=== PATIENT | female | born 1965 | race African-American/Black ===

== ENCOUNTER 2016-07-18 16:52 | Emergency (ER) | payer OTHER ==
[~2016-07-18] VITALS: Ht 170.2 cm; Wt 150.0 kg
[~2016-07-18 16:52] MED LIST: ALBUAER2 INH; ASPEC81 PO; CITA20TA9 PO; DSY/150 PO; INSDGIPEN SQ; NVLGI/PEN SQ; OMEP20CA9 PO; OXGN; SYMIN160 PO; TPRSR/100 PO
[2016-07-18] MEDS ORDERED: LACT15SO PO (16:55)
[2016-07-18 16:59] VITALS: Ht 170.2 cm; Wt 150.0 kg
[2016-07-18] MEDS ORDERED: ASPIRIN 324 MG CHEW PO STA (17:27)
[2016-07-18] MEDS ORDERED: SODIUM CHLORIDE 0.9% 1000ML 1,000 ML IV ONE (17:30)
[2016-07-18 17:54] LABS: BASO % 0.5 %; BASO ABS # 0.04 K/uL (0-0.2); COMPLETE YES; EOS % 1.9 %; HEMATOCRIT 37.3 % (37-47); IG% 0.3 %; LYMPH % 32.1 %; LYMPH ABS # 2.77 K/uL (1.2-3.4); MEAN CELL VOLUME 90.5 fL (80-100); MEAN CORPUSCULAR HEMOGLOBIN 31.3 pg (25-34); MEAN CORPUSCULAR HGB CONC 34.6 g/dl (32-36); MEAN PLATELET VOLUME 9.8 fL (7.4-10.4); NEUT % 60.2 %; PLATELET COUNT 291 K/uL (130-400); RED BLOOD COUNT 4.12 M/uL (4.2-5.4); WHITE BLOOD COUNT 8.64 K/uL (4.8-10.8)
[2016-07-18 18:20] LABS: ALB/GLOB RATIO 0.9 (0.9-2); BUN/CREATININE RATIO 10.5 (10-20); CALCIUM 9.1 mg/dl (8.5-10.1); CREATININE 0.8 mg/dl (0.60-1.20); POTASSIUM 3.6 mmol/L (3.5-5.1)
[2016-07-18 18:33] LABS: CKMB/CK RATIO 0.7 (0-3.0); THYROID STIMULATING HORMONE 0.539 uIu/ml (0.300-4.500)
--- NOTE | 2016-07-18 18:36 | DIAGNOSTIC IMAGING REPORT ---
CHEST ONE VIEW PORTABLE CLINICAL HISTORY: Chest pain. COMPARISON STUDY: Chest radiograph June 23, 2016. FINDINGS: This study is, by suboptimal penetration. Apparent bibasilar opacities are likely due to overlying soft tissues. No pneumothorax or definite pleural effusion is identified. Cardiomediastinal silhouette is stable with mild cardiomegaly. There is no evidence of pulmonary edema. IMPRESSION: No acute findings. No significant change in appearance of the chest. Electronically signed by: Fabrizio Johnson M.D. 07/18/2016 6:34 PM Dictated Date/Time: 07/18/2016 6:33 PM
[2016-07-18] MEDS ORDERED: GUAI1TAB69 PO (18:41)
[2016-07-18] MEDS ORDERED: IPRASOL4 INH (18:41)
[2016-07-18 18:55] LABS: PARTIAL THROMBOPLASTIN RATIO 1.2; PROTHROMBIN TIME (PATIENT) 11.1 SECONDS (9.0-12.0)
[2016-07-18] MEDS ORDERED: FLUT1INH INH (19:55)
[2016-07-18] MEDS ORDERED: LXP/10 PO (19:55)
[2016-07-18] MEDS ORDERED: POTA20TA13 PO (19:55)
[2016-07-18] MEDS ORDERED: EFFSR75 PO (20:57)
[2016-07-18] MEDS ORDERED: PALI117I IM (20:57)
[2016-07-18 21:16] VITALS: BP 108/66; PULSE 63; TEMP 36.7; O2SAT 98
[2016-07-18] MEDS ORDERED: VLT500 PO (21:22)
[2016-07-18] MEDS ORDERED: HYDR-4383 PO (21:22)
[2016-07-18] MEDS ORDERED: LSX40 PO (21:25)
[2016-07-18] MEDS ORDERED: DILT300C PO (21:27)
[2016-07-18] MEDS ORDERED: CZR50 PO (21:27)
[2016-07-18] MEDS ORDERED: RANI150T2 PO (21:27)
[2016-07-18] MEDS ORDERED: ALBINS/ NEB (21:30)
--- NOTE | 2016-07-18 23:03 | EMERGENCY ROOM VISIT NOTE ---
History First contact with patient: 17:14 Chief Complaint: OTHER COMPLAINT Stated Complaint: CHEST DISCOMFORT History of Present Illness The patient is a 50 year old female who presents to the Emergency Room with complaints of intermittent central chest pain. The patient is also complaining of right and left hand pain. She does not have shortness of breath or dyspnea on exertion. Patient states her symptoms have been ongoing for the past 12 hours. She did call 911 today because of her discomfort, as she took her home blood pressure, and states that it was greater than 220/140. The patient blood pressure when EMS arrived was normal. She states that she currently does not have her pain. Additionally the patient states that she was just released from [facility] 2 days ago following a stay for mental health evaluation. The patient does not have any current suicidal or homicidal ideology. She does have an extensive history of mental health disease. Additionally she has a history of polypharmacy substance abuse, including cocaine and snorting of narcotics. The patient declines doing this today. She rates her overall discomfort a 9/10. Review of Systems More than 10 systems were reviewed and otherwise negative with the exception of history of present illness. 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 (28) Sleep apnea (29) Suicide attempt Surgical Problems: (1) H/O foot surgery (2) H/O ovarian cystectomy Family History Heart disease Social History Smoking Status: Unknown if Ever Smoked Alcohol Use: heavy Drug Use: cocaine, marijuana Marital Status: single Housing Status: lives with family Occupation Status: disabled Current/Historical Medications Scheduled Apixaban (Eliquis), 5 MG PO BID Aspirin (Aspirin EC Low Dose), 81 MG PO QAM Diltiazem Hcl Coated Beads (Diltiazem Hcl Er), 300 MG PO QAM Fluticasone Furoate-Vilanterol (Breo Ellipta), 1 PUFF INH BID Furosemide (Furosemide), 40 MG PO QAM Insulin Aspart (Novolog Flexpen), 8 UNITS SQ TIDM Insulin Glargine (Lantus Solostar), 38 UNITS SQ HS Losartan Potassium (Losartan Potassium), 50 MG PO DAILY Metoprolol Succinate (Metoprolol Succinate ER), 100 MG PO BID Omeprazole (Prilosec), 20 MG PO QAM Paliperidone Palmitate (Invega Sustenna), 1 DOSE IM MONTHLY Potassium Chloride Microencaps (Potassium Chloride Er), 20 MEQ PO DAILY Ranitidine HCl (Ranitidine HCl), 150 MG PO BID Trazodone HCl (Trazodone HCl), 1 TAB PO HS Valacyclovir HCl (Valacyclovir HCl), 500 MG PO QAM Venlafaxine Hcl (Effexor Extended Rel), 75 MG PO DAILY Scheduled PRN Albuterol (Ventolin), 2 PUFFS INH QID PRN for Shortness of Breath Albuterol Sulf (Proventil 0.083% 2.5MG/3ML), 1 VIAL NEB Q4-6HRS PRN for Wheezing Guaifenesin (Mucinex Maximum Strength), 1 TAB PO BID PRN for PRN Hydrocodone/Acetaminophen (Schneider 10/325 Tab), 1 TAB PO TID PRN for Pain Ipratropium-Albuterol (Duoneb), 1 TREATMENT INH QID PRN for SOB/Wheezing Lactulose (Constulose), 45 ML PO DAILY PRN for Constipation Allergies Coded Allergies: Haloperidol (Verified Allergy, Severe, TONGUE SWELLING, 06/22/16) Margarine (Verified Allergy, Severe, swelling, 06/22/16) "BUTTER ADDED TO FOODS" Penicillins (Verified Allergy, Unknown, UNKNOWN, 06/22/16) PER CHRISSY IN U Sulfamethoxazole w/Trimethoprim (Verified Allergy, Unknown, ., 06/22/16) Morphine (Verified Adverse Reaction, Mild, HEADACHE, 06/22/16) Oxycodone (Verified Adverse Reaction, Unknown, ITCH, 06/22/16) Physical Exam Vital Signs Date Time Temp Pulse Resp B/P Pulse Ox O2 Delivery O2 Flow Rate FiO2 07/18/16 21:16 36.7 63 18 108/66 98 07/18/16 20:19 63 18 108/66 98 Room Air 07/18/16 17:22 77 07/18/16 17:14 74 18 133/55 97 Room Air 07/18/16 16:59 36.7 72 122/79 96 Room Air Pain Rating (0-10): 0 Physical Exam VITALS: Vitals are noted on the nurse's note and reviewed by myself. Vital signs stable. GENERAL: Well-developed, well-nourished, obese black female, who is in no acute distress and resting comfortably. Patient is cooperative with the examination. HEAD: Normocephalic atraumatic. NECK: Supple without nuchal rigidity. No lymphadenopathy. No thyromegaly. Cervical spine is nontender. HEART: Regular rate and rhythm without murmurs gallops or rubs. LUNGS: Clear to auscultation bilaterally without wheezes, rales or rhonchi. No retractions or accessory muscle use. ABDOMEN: Positive normal bowel sounds x 4. Soft, nontender, without masses or organomegaly. No guarding or rebound tenderness. MUSCULOSKELETAL: No muscle atrophy, erythema, or edema noted. Full range of motion without joint tenderness in all extremities. NEURO: Patient was alert and oriented to person place and time. CN II through XII grossly intact. Medical Decision & Procedures ER Provider Diagnostic Interpretation: CHEST ONE VIEW PORTABLE CLINICAL HISTORY: Chest pain. COMPARISON STUDY: Chest radiograph June 23, 2016. FINDINGS: This study is, by suboptimal penetration. Apparent bibasilar opacities are likely due to overlying soft tissues. No pneumothorax or definite pleural effusion is identified. Cardiomediastinal silhouette is stable with mild cardiomegaly. There is no evidence of pulmonary edema. IMPRESSION: No acute findings. No significant change in appearance of the chest. Laboratory Results 07/18/16 17:41 Red Blood Count 4.12, Mean Corpuscular Volume 90.5, Mean Corpuscular Hemoglobin 31.3, Mean Corpuscular Hemoglobin Concent 34.6, Mean Platelet Volume 9.8, Neutrophils (%) (Auto) 60.2, Lymphocytes (%) (Auto) 32.1, Monocytes (%) (Auto) 5.0, Eosinophils (%) (Auto) 1.9, Basophils (%) (Auto) 0.5, Neutrophils # (Auto) 5.21, Lymphocytes # (Auto) 2.77, Monocytes # (Auto) 0.43, Eosinophils # (Auto) 0.16, Basophils # (Auto) 0.04 07/18/16 17:41 Test 07/18/16 17:41 07/18/16 18:08 07/18/16 20:00 White Blood Count 8.64 K/uL (4.8-10.8) Red Blood Count 4.12 M/uL (4.2-5.4) Hemoglobin 12.9 g/dL (12.0-16.0) Hematocrit 37.3 % (37-47) Mean Corpuscular Volume 90.5 fL (80-100) Mean Corpuscular Hemoglobin 31.3 pg (25-34) Mean Corpuscular Hemoglobin Concent 34.6 g/dl (32-36) Platelet Count 291 K/uL (130-400) Mean Platelet Volume 9.8 fL (7.4-10.4) Neutrophils (%) (Auto) 60.2 % Lymphocytes (%) (Auto) 32.1 % Monocytes (%) (Auto) 5.0 % Eosinophils (%) (Auto) 1.9 % Basophils (%) (Auto) 0.5 % Neutrophils # (Auto) 5.21 K/uL (1.4-6.5) Lymphocytes # (Auto) 2.77 K/uL (1.2-3.4) Monocytes # (Auto) 0.43 K/uL (0.11-0.59) Eosinophils # (Auto) 0.16 K/uL (0-0.5) Basophils # (Auto) 0.04 K/uL (0-0.2) RDW Standard Deviation 45.5 fL (36.4-46.3) RDW Coefficient of Variation 13.7 % (11.5-14.5) Immature Granulocyte % (Auto) 0.3 % Immature Granulocyte # (Auto) 0.03 K/uL (0.00-0.02) Prothrombin Time 11.1 SECONDS (9.0-12.0) Prothromb Time International Ratio 1.0 (0.9-1.1) Activated Partial Thromboplast Time 30.1 SECONDS (21.0-31.0) Partial Thromboplastin Ratio 1.2 Anion Gap 13.0 mmol/L (3-11) Est Creatinine Clear Calc Drug Dose 127.4 ml/min Estimated GFR () 98.9 Estimated GFR (Non- 85.4 BUN/Creatinine Ratio 10.5 (10-20) Calcium Level 9.1 mg/dl (8.5-10.1) Total Bilirubin 0.1 mg/dl (0.2-1) Aspartate Amino Transf (AST/SGOT) 21 U/L (15-37) Alanine Aminotransferase (ALT/SGPT) 35 U/L (12-78) Alkaline Phosphatase 156 U/L (45-117) Total Creatine Kinase 350 U/L (26-192) Creatine Kinase MB 2.3 ng/ml (0.5-3.6) Total Protein 7.4 gm/dl (6.4-8.2) Albumin 3.6 gm/dl (3.4-5.0) Globulin 3.8 gm/dl (2.5-4.0) Albumin/Globulin Ratio 0.9 (0.9-2) Lipase 150 U/L (73-393) Thyroid Stimulating Hormone (TSH) 0.539 uIu/ml (0.300-4.500) Chemistry Specimen Hemolysis Ethyl Alcohol mg/dL 114.0 mg/dl (0-3) Creatine Kinase MB Ratio (0-3.0) Bedside Troponin I 0.060 ng/ml (0-0.045) Medications Administered Medications (Trade) Dose Ordered Sig/Lucien Route Start Time Stop Time Status Last Admin Dose Admin Sodium Chloride (Nss 1000ml) 1,000 ml @ 999 mls/hr Q1H1M ONCE IV 07/18/16 17:30 07/18/16 18:30 DC 07/18/16 18:00 999 MLS/HR Aspirin (Aspirin Chew) 324 mg NOW STAT PO 07/18/16 17:27 07/18/16 17:31 DC 07/18/16 17:49 324 MG ED Course Physical exam and history were performed. Nursing notes and EMR were reviewed. Patient appears to have chest pain as well as hand pain. She was recently discharged from [facility], and will not sign a release of records for us to review the information from that stay. IV access was established and labs were obtained. EKG was normal sinus rhythm without ischemia. She was placed on a cigar packer and grader and hydrated with normal saline. The patient was given aspirin by mouth. The patient's blood work is as above and was reviewed. She does not have a significantly elevated white blood cell count, gross anemia, bandemia, or significant electrolyte imbalance. Lipase and transaminases are nondiagnostic. The patient's troponin 2 is slightly elevated. The patient refused to provide a urine sample despite being under our care for several hours. She is intoxicated, with an alcohol greater than 110. Her chest x-ray is without acute process. Her other labs are fairly unremarkable. I discussed the case with my attending physician, Dr. Toney. Together we reviewed the patient's past medical history. She has a chronically elevated troponin, and her troponin today is actually lower than her normal levels. The patient is intoxicated, and I suspect that she has either marijuana or cocaine on board. She does not appear to be having an acute cardiopulmonary event. She remained in stable condition on the cigar packer and grader. The patient refuses to allow us to obtain records from [facility] 2 days ago. I suspect an element of mental health/malingering causing her to present to the ER tonight. She declines mental health evaluation. She is not suicidal or homicidal. The patient requested opioid analgesics several times, and this does not appear appropriate considering her history. The patient appears stable for discharge home, as she seems to be at her normal baseline. She does need to follow with her PCP, and I recommended that she be seen tomorrow. She was otherwise invited back to the ER with any new, worsening, or concerning symptoms. The chart was completed utilizing [employer] Speech Voice Recognition Software. Grammatical errors, random word insertions, pronoun errors, and incomplete sentences are an occasional consequence of this system due to software limitations, ambient noise, and hardware issues. Any formal questions or concerns about the content, text, or information contained within the body of this dictation should be directly addressed to the provider for clarification. . Medical Decision Differential diagnosis includes, but is not limited to: Myocardial infarction, dysrhythmia, pericarditis, pneumothorax, aortic aneurysm/dissection, DVT/PE, anxiety, GERD, PUD, electrolyte imbalance, thyroid disorder, pneumonia, bronchitis, pancreatitis, and others Impression Primary Impression: Precordial chest pain Additional Impression: Alcohol intoxication Departure Information Dispostion Home / Self-Care Condition GOOD Forms HOME CARE DOCUMENTATION FORM, IMPORTANT VISIT INFORMATION Patient Instructions [facility] Additional Instructions You were seen and evaluated today on an emergency basis only. This is not a substitute for, or an effort to provide, complete comprehensive medical care. It is not possible to recognize and treat all injuries or illnesses in a single emergency department visit. For this reason it is recommended that you followup with your primary care physician's office tomorrow for ongoing care and evaluation. Continue medications as previously prescribed You are welcome to return to the emergency department anytime with new, worsening, or concerning symptoms. Problem Qualifiers
[2016-08-17] MEDS ORDERED: AMT25 PO (12:18)
[2016-08-17] MEDS ORDERED: INSDGIPEN SQ (12:18)
[2016-08-17] MEDS ORDERED: LBR25 PO (12:18)
[2016-08-17] MEDS ORDERED: PRD20 PO (12:18)
[2016-08-17] MEDS ORDERED: BND25X PO (12:18)
[2016-08-17] MEDS ORDERED: ALBINS/ NEB (12:18)
[2016-08-28] MEDS ORDERED: ATV5 PO (13:03)
[2016-08-28] MEDS ORDERED: PRD20 PO (13:03)
[2016-08-31] MEDS ORDERED: APIX1TAB3 PO (21:22)
[2016-11-13] MEDS ORDERED: INSDGI SC (15:15)
[2016-11-13] MEDS ORDERED: LACT10SO17 PO (15:15)
[2016-12-07] MEDS ORDERED: AZIT250T5 PO (14:09)
[2016-12-10] MEDS ORDERED: HYDR-4383 PO (10:16)
[2016-12-10] MEDS ORDERED: TRL2 PO (10:16)
[2016-12-10] MEDS ORDERED: INSDGI SC (10:16)
[2016-12-10] MEDS ORDERED: IPRASOL4 INH (10:16)
[2016-12-10] MEDS ORDERED: PRED10TA PO (10:16)
[2016-12-12] MEDS ORDERED: PERP1TAB11 PO (12:59)
== END 2016-07-18 21:17 | disposition home or self-care (01) ==
LOC: EDBD 16:52 → C.EDA 16:53
DX: R07.2 Precordial pain (principal); F10.129 Alcohol abuse with intoxication, unspecified; Y90.5 Blood alcohol level of 100-119 mg/100 ml; I10 Essential (primary) hypertension; I48.91 Unspecified atrial fibrillation; E11.9 Type 2 diabetes mellitus without complications; J44.9 Chronic obstructive pulmonary disease, unspecified; F32.9 Major depressive disorder, single episode, unspecified; G47.30 Sleep apnea, unspecified; Z86.19 Personal history of other infectious and parasitic diseases; Z98.890 Other specified postprocedural states; Z79.82 Long term (current) use of aspirin; Z79.4 Long term (current) use of insulin; Z79.899 Other long term (current) drug therapy; Z88.0 Allergy status to penicillin; Z88.2 Allergy status to sulfonamides; Z88.5 Allergy status to narcotic agent; Z88.8 Allergy status to other drugs, medicaments and biological substances

== ENCOUNTER 2016-07-25 20:51 | Emergency (ER) | payer OTHER ==
[~2016-07-25] VITALS: Ht 167.6 cm; Wt 130.0 kg
[~2016-07-25 20:51] MED LIST changes: +ALBINS/ NEB; -CITA20TA9 PO; +CZR50 PO; +DILT300C PO; +EFFSR75 PO; +FLUT1INH INH; +GUAI1TAB69 PO; +HYDR-4383 PO; +IPRASOL4 INH; +LACT15SO PO; +LSX40 PO; -OXGN; +PALI117I IM; +POTA20TA13 PO; +RANI150T2 PO; -SYMIN160 PO; +VLT500 PO
[2016-07-25 21:02] VITALS: TEMP 36.7; Ht 167.6 cm; Wt 130.0 kg
[2016-07-25] MEDS ORDERED: TRAMADOL HCL 50 MG TAB PO STA (21:21)
[2016-07-25] MEDS ORDERED: LORAZEPAM 0.5 MG TAB SL STA (21:21)
--- NOTE | 2016-07-25 21:23 | EMERGENCY ROOM VISIT NOTE ---
History Report prepared by Domenico: Adilia Snow Under the Supervision of: Dr. Jackson Ozuna D.O. First contact with patient: 21:01 Chief Complaint: ALCOHOL OVERDOSE Stated Complaint: MR EVAL/ COOPERATIVE W/SOME ALCOHOL Nursing Triage Summary: Patient reports drinking a half gallon of rum this evening, and has contacted EMS X 3 for ?tachycardia. Patient requesting ativan injection and cab ride home. History of Present Illness The patient is a 50 year old female who presents to the Emergency Room with complaints of a persistent episode of hypertension starting earlier today. The patient states that earlier tonight she started feeling more anxious and was drinking Bacardi Rum. The patient states that she was feeling her heart race and it caused her to call the Ambulance in order to be evaluated. The patient states that she took all of her medication earlier today before started to drink alcohol. The patient states that she has been experienced increased depression. The patient states she recently changed her medication after being released from [facility]. She denies any suicidal ideation but she states she is worried about having a heart attack. Source of History: patient Onset: earlier today [employer] Position: other (global ) Timing: other (episode ) Note: Associated symptoms: heart racing, increased depression, more anxious. Patient denies suicidal ideation Review of Systems See HPI for pertinent positives & negatives. A total of 10 systems reviewed and were otherwise negative. 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 (29) Sleep apnea (30) Suicide attempt Surgical Problems: (1) H/O foot surgery (2) H/O ovarian cystectomy Family History Heart disease Social History Smoking Status: Current Every Day Smoker Alcohol Use: heavy Drug Use: cocaine, marijuana Marital Status: single Housing Status: lives with family Occupation Status: disabled Current/Historical Medications Scheduled Apixaban (Eliquis), 5 MG PO BID Aspirin (Aspirin EC Low Dose), 81 MG PO QAM Diltiazem Hcl Coated Beads (Diltiazem Hcl Er), 300 MG PO QAM Fluticasone Furoate-Vilanterol (Breo Ellipta), 1 PUFF INH BID Furosemide (Furosemide), 40 MG PO QAM Insulin Aspart (Novolog Flexpen), 8 UNITS SQ TIDM Insulin Glargine (Lantus Solostar), 38 UNITS SQ HS Losartan Potassium (Losartan Potassium), 50 MG PO DAILY Metoprolol Succinate (Metoprolol Succinate ER), 100 MG PO BID Omeprazole (Prilosec), 20 MG PO QAM Paliperidone Palmitate (Invega Sustenna), 1 DOSE IM MONTHLY Potassium Chloride Microencaps (Potassium Chloride Er), 20 MEQ PO DAILY Ranitidine HCl (Ranitidine HCl), 150 MG PO BID Trazodone HCl (Trazodone HCl), 1 TAB PO HS Valacyclovir HCl (Valacyclovir HCl), 500 MG PO QAM Venlafaxine Hcl (Effexor Extended Rel), 75 MG PO DAILY Scheduled PRN Albuterol (Ventolin), 2 PUFFS INH QID PRN for Shortness of Breath Albuterol Sulf (Proventil 0.083% 2.5MG/3ML), 1 VIAL NEB Q4-6HRS PRN for Wheezing Guaifenesin (Mucinex Maximum Strength), 1 TAB PO BID PRN for PRN Hydrocodone/Acetaminophen (Sumrall 10/325 Tab), 1 TAB PO TID PRN for Pain Ipratropium-Albuterol (Duoneb), 1 TREATMENT INH QID PRN for SOB/Wheezing Lactulose (Constulose), 45 ML PO DAILY PRN for Constipation Allergies Coded Allergies: Haloperidol (Verified Allergy, Severe, TONGUE SWELLING, 07/25/16) Margarine (Verified Allergy, Severe, swelling, 07/25/16) "BUTTER ADDED TO FOODS" Penicillins (Verified Allergy, Unknown, UNKNOWN, 07/25/16) PER CHRISSY IN U Sulfamethoxazole w/Trimethoprim (Verified Allergy, Unknown, ., 07/25/16) Morphine (Verified Adverse Reaction, Mild, HEADACHE, 07/25/16) Oxycodone (Verified Adverse Reaction, Unknown, ITCH, 07/25/16) Physical Exam Vital Signs Date Time Temp Pulse Resp B/P Pulse Ox O2 Delivery O2 Flow Rate FiO2 07/25/16 21:47 100 20 124/84 96 07/25/16 21:02 36.7 114 20 114/73 97 Room Air Physical Exam GENERAL: Patient is awake, alert, somewhat anxious appearing and uncomfortable EYES: The conjunctivae are clear. The pupils are round and reactive. EARS, NOSE, MOUTH AND THROAT: The nose is without any evidence of any deformity. Mucous membranes are moist tongue is midline NECK: The neck is nontender and supple. RESPIRATORY: Normal respiratory effort is noted there is no evidence of wheezing rhonchi or rales CARDIOVASCULAR: Tachycardic rate and regular rhythm noted there no murmurs rubs or gallops normal S1 normal S2 GASTROINTESTINAL: The abdomen is soft. Bowel sounds are present in all quadrants. Abdomen is nontender MUSCULOSKELETAL/EXTREMITIES: There is no evidence of gross deformity full range of motion is noted in the hips and shoulders SKIN: There is no obvious evidence of any rash. There are no petechiae, pallor or cyanosis noted. NEUROLOGIC: Patient is awake alert and oriented x3 strength is symmetric. PSYCH: Patient was anxious appearing, affect was normal, currently denies any suicidal or homicidal ideation. Medical Decision & Procedures Medications Administered Medications (Trade) Dose Ordered Sig/Lucien Route Start Time Stop Time Status Last Admin Dose Admin Lorazepam (Ativan Tab) 0.5 mg NOW STAT SL 07/25/16 21:21 07/25/16 21:23 DC 07/25/16 21:29 0.5 MG Tramadol HCl (Ultram Tab) 50 mg NOW STAT PO 07/25/16 21:21 07/25/16 21:23 DC 07/25/16 21:30 50 MG Tramadol HCl (Ultram Home Pack) 1 homepack UD ONCE PO 07/25/16 21:30 07/25/16 21:31 DC 07/25/16 21:51 1 HOMEPACK ED Course 2108: The patient was evaluated in room A8. A complete history and physical examination were performed. 2120: Ordered Ultram Tab 50 mg PO, Ativan Tab 0.5 mg SL 2129: Ordered Tramadol HCl 1 homepack PO. 2150: Upon reevaluation, the patient is hemodynamically stable. I discussed the results and treatment plan with her. She verbalized agreement of the treatment plan. The patient was discharged home. Medical Decision Differential diagnosis: Etiologies such as mood disorder, infection, hypoglycemia, electrolyte abnormalities, cardiac sources, intracerebral event, toxicologic, neurologic, as well as others were entertained. Nursing notes reviewed. The patient is a 50-year-old female who presented to the emergency apartment for an evaluation of chronic pain and mental health evaluation. The patient has a history of alcohol abuse. She also has a long history of mental health problems as well. The patient came to the emergency department by ambulance for an evaluation. She was very depressed and anxious. She was treated with medications for pain as well as for anxiety. She was reevaluated and feeling much better. She was encouraged to continue all medications as prescribed. She was also encouraged to follow-up with her primary care physician as well as her primary therapist as soon as possible. Otherwise she was encouraged to call crisis or return to emergency department immediately if symptoms change worsen or the need arises. Impression Primary Impression: Anxiety Additional Impressions: Suicidal ideation Chronic pain Scribe Attestation The scribe's documentation has been prepared under my direction and personally reviewed by me in its entirety. I confirm that the note above accurately reflects all work, treatment, procedures, and medical decision making performed by me. Departure Information Dispostion Home / Self-Care Referrals Alonso Zuluaga M.D. (PCP) Forms HOME CARE DOCUMENTATION FORM, IMPORTANT VISIT INFORMATION Patient Instructions [facility] Additional Instructions Continue all medications as prescribed. Call your family in the morning to schedule follow-up appointment. Rest and avoid any strenuous activity. Avoid any further alcoholic beverages. Problem Qualifiers
[2016-07-25] MEDS ORDERED: TRAMADOL HCL 50 MG HOME PACK PO ONE (21:30)
[2016-07-25 21:47] VITALS: BP 124/84; PULSE 100; O2SAT 96
[2016-08-17] MEDS ORDERED: LBR25 PO (12:18)
[2016-08-17] MEDS ORDERED: PRD20 PO (12:18)
[2016-08-17] MEDS ORDERED: INSDGIPEN SQ (12:18)
[2016-08-17] MEDS ORDERED: BND25X PO (12:18)
[2016-08-17] MEDS ORDERED: AMT25 PO (12:18)
[2016-08-17] MEDS ORDERED: ALBINS/ NEB (12:18)
[2016-08-28] MEDS ORDERED: ATV5 PO (13:03)
[2016-08-28] MEDS ORDERED: PRD20 PO (13:03)
[2016-08-31] MEDS ORDERED: APIX1TAB3 PO (21:22)
[2016-11-13] MEDS ORDERED: INSDGI SC (15:15)
[2016-11-13] MEDS ORDERED: LACT10SO17 PO (15:15)
[2016-12-07] MEDS ORDERED: AZIT250T5 PO (14:09)
[2016-12-10] MEDS ORDERED: IPRASOL4 INH (10:16)
[2016-12-10] MEDS ORDERED: TRL2 PO (10:16)
[2016-12-10] MEDS ORDERED: INSDGI SC (10:16)
[2016-12-10] MEDS ORDERED: HYDR-4383 PO (10:16)
[2016-12-10] MEDS ORDERED: PRED10TA PO (10:16)
[2016-12-12] MEDS ORDERED: PERP1TAB11 PO (12:59)
== END 2016-07-25 21:57 | disposition home or self-care (01) ==
LOC: EDBD 20:51 → C.EDA 20:54
DX: F41.9 Anxiety disorder, unspecified (principal); R45.851 Suicidal ideations; G89.29 Other chronic pain; J44.9 Chronic obstructive pulmonary disease, unspecified; I10 Essential (primary) hypertension; E66.9 Obesity, unspecified; F17.210 Nicotine dependence, cigarettes, uncomplicated; F14.10 Cocaine abuse, uncomplicated; F12.10 Cannabis abuse, uncomplicated; Z68.42 Body mass index [BMI] 45.0-49.9, adult

== ENCOUNTER 2016-07-29 17:28 | Emergency (ER) | payer OTHER ==
[2016-08-17] MEDS ORDERED: PRD20 PO (12:18)
[2016-08-17] MEDS ORDERED: ALBINS/ NEB (12:18)
[2016-08-17] MEDS ORDERED: AMT25 PO (12:18)
[2016-08-17] MEDS ORDERED: INSDGIPEN SQ (12:18)
[2016-08-17] MEDS ORDERED: LBR25 PO (12:18)
[2016-08-17] MEDS ORDERED: BND25X PO (12:18)
[2016-08-28] MEDS ORDERED: ATV5 PO (13:03)
[2016-08-28] MEDS ORDERED: PRD20 PO (13:03)
[2016-08-31] MEDS ORDERED: APIX1TAB3 PO (21:22)
[2016-11-13] MEDS ORDERED: LACT10SO17 PO (15:15)
[2016-11-13] MEDS ORDERED: INSDGI SC (15:15)
[2016-12-07] MEDS ORDERED: AZIT250T5 PO (14:09)
[2016-12-10] MEDS ORDERED: INSDGI SC (10:16)
[2016-12-10] MEDS ORDERED: IPRASOL4 INH (10:16)
[2016-12-10] MEDS ORDERED: HYDR-4383 PO (10:16)
[2016-12-10] MEDS ORDERED: PRED10TA PO (10:16)
[2016-12-10] MEDS ORDERED: TRL2 PO (10:16)
[2016-12-12] MEDS ORDERED: PERP1TAB11 PO (12:59)
== END 2016-07-29 17:46 | disposition left against medical advice (07) ==
LOC: EDBD 17:28 → C.EDC 17:31
DX: R00.0 Tachycardia, unspecified (principal); R06.02 Shortness of breath

== ENCOUNTER 2016-08-10 00:08 | Inpatient (IN) | payer OTHER ==
[~2016-08-10] VITALS: Ht 167.6 cm; Wt 129.7 kg
[2016-08-10] VITALS (8 sets, daily range): BP systolic 116–156; BP diastolic 67–97; PULSE 57–80; TEMP 36.6–36.9; O2SAT 92–97; BMI 47.1
[2016-08-10] MEDS ORDERED: ALBUT/IPRATROP 3MG/0.5MG NEB 3 ML VIAL INH STA (00:40)
--- NOTE | 2016-08-10 00:41 | EMERGENCY ROOM VISIT NOTE ---
History Report prepared by Domenico: Ever Mabry Under the Supervision of: Dr. George Wall M.D. First contact with patient: 00:24 Chief Complaint: DETOX REQUEST Stated Complaint: DETOX Nursing Triage Summary: Detox request. "a referral for [place]". Recent alcohol use-vodka, rum and beer. cocaine 2-3 days ago. pt c/o CP, "my heart feels sore", SOB, productive cough History of Present Illness The patient is a 50 year old female who presents to the Emergency Room to be medically cleared to be accepted to the [facility]. The patient states that she will not be accepted to the facility until she is evaluated from her chest pain and shortness of breath. She states that her chest pain and shortness of breath has been worsening for the past couple days. The patient describes her pain as a "soreness." She also complains of a temperature of 99.8 degrees and vomiting yesterday. She denies any vomiting/ diarrhea today. The patient does admit to alcohol use tonight, and cocaine use in the past couple of days. She is also still on blood thinners. Source of History: patient Onset: Past couple of days. Position: chest Quality: other (Sorenes) Timing: worsening Associated Symptoms: + SOB, + fevers, + vomiting, No diarrhea Review of Systems See HPI for pertinent positives & negatives. A total of 10 systems reviewed and were otherwise negative. Past Medical & Surgical Medical Problems: (1) Acute bronchitis (2) Afib (3) Alcohol abuse (4) Atrial fibrillation (5) Benzodiazepine abuse (6) Cellulitis of leg, right (7) Chronic generalized pain disorder (8) Cocaine abuse (9) copd exac, pna (10) copd exac, pna (11) COPD with acute exacerbation (12) Depression (13) Diabetes (14) Diabetes (15) Edema (16) Fatty liver (17) HTN (hypertension) (18) Influenza B (19) Major depression (20) Neuropathy (21) NSTEMI, initial episode of care (22) Obesity (23) Opiate addiction (24) Ovarian cyst (25) Palpitations (26) past psych meds (27) Past Psych Meds (28) Personality disorder (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 (30) Sleep apnea (31) Suicide attempt Surgical Problems: (1) H/O foot surgery (2) H/O ovarian cystectomy Family History Heart disease Social History Smoking Status: Current Every Day Smoker Alcohol Use: heavy Drug Use: cocaine, marijuana Marital Status: single Housing Status: lives with family Occupation Status: disabled Current/Historical Medications Scheduled Apixaban (Eliquis), 5 MG PO BID Aspirin (Aspirin EC Low Dose), 81 MG PO QAM Diltiazem Hcl Coated Beads (Diltiazem Hcl Er), 300 MG PO QAM Fluticasone Furoate-Vilanterol (Breo Ellipta), 1 PUFF INH BID Furosemide (Furosemide), 40 MG PO QAM Insulin Aspart (Novolog Flexpen), 8 UNITS SQ TIDM Insulin Glargine (Lantus Solostar), 38 UNITS SQ HS Losartan Potassium (Losartan Potassium), 50 MG PO DAILY Metoprolol Succinate (Metoprolol Succinate ER), 100 MG PO BID Omeprazole (Prilosec), 20 MG PO QAM Paliperidone Palmitate (Invega Sustenna), 1 DOSE IM MONTHLY Potassium Chloride Microencaps (Potassium Chloride Er), 20 MEQ PO DAILY Ranitidine HCl (Ranitidine HCl), 150 MG PO BID Trazodone HCl (Trazodone HCl), 1 TAB PO HS Valacyclovir HCl (Valacyclovir HCl), 500 MG PO QAM Venlafaxine Hcl (Effexor Extended Rel), 75 MG PO DAILY Scheduled PRN Albuterol (Ventolin), 2 PUFFS INH QID PRN for Shortness of Breath Albuterol Sulf (Proventil 0.083% 2.5MG/3ML), 1 VIAL NEB Q4-6HRS PRN for Wheezing Guaifenesin (Mucinex Maximum Strength), 1 TAB PO BID PRN for PRN Hydrocodone/Acetaminophen ([place] 10/325 Tab), 1 TAB PO TID PRN for Pain Ipratropium-Albuterol (Duoneb), 1 TREATMENT INH QID PRN for SOB/Wheezing Lactulose (Constulose), 45 ML PO DAILY PRN for Constipation Allergies Coded Allergies: Haloperidol (Verified Allergy, Severe, TONGUE SWELLING, 08/10/16) Margarine (Verified Allergy, Severe, swelling, 08/10/16) "BUTTER ADDED TO FOODS" Penicillins (Verified Allergy, Unknown, UNKNOWN, 08/10/16) PER CHRISSY IN [facility] Sulfamethoxazole w/Trimethoprim (Verified Allergy, Unknown, ., 08/10/16) Morphine (Verified Adverse Reaction, Mild, HEADACHE, 08/10/16) Oxycodone (Verified Adverse Reaction, Unknown, ITCH, 08/10/16) Physical Exam Vital Signs Date Time Temp Pulse Resp B/P Pulse Ox O2 Delivery O2 Flow Rate FiO2 08/10/16 02:23 78 08/10/16 01:37 80 18 131/67 97 Room Air 08/10/16 00:18 37.3 80 20 162/87 95 Room Air Physical Exam GENERAL: Patient is chronically unwell appearing. HEENT: No acute trauma, normocephalic atraumatic, mucous membranes moist, no nasal congestion, no scleral icterus. NECK: No stridor, no adenopathy, no meningismus, trachea is midline. LUNGS: Mild diffuse wheezing bilaterally. HEART: Regular rate and rhythm. No murmurs, rubs, gallops appreciated. ABDOMEN: Soft, nontender, bowel sounds positive, no masses appreciated, no peritonitis. BACK: No midline tenderness, no CVA tenderness EXTREMITIES: Normal motion all extremities, no cyanosis, no edema. NEUROLOGIC: Alert and oriented, no acute motor or sensory deficits, no focal weakness, cranial nerves grossly intact. SKIN: No rash, no jaundice, no diaphoresis. PSYCH: Patient admits to drug and alcohol abuse recently. Admits to depression. Denies homicidal/suicidal ideation. Medical Decision & Procedures ER Provider Diagnostic Interpretation: X ray results and stated below per my interpretation and radiologist interpretation. Other radiology results and stated below per my review and radiologist interpretation: X ray results are stated below per my interpretation: Chest: 1 view: No infiltrate, no effusion, normal cardiac border. Enlarged heart, similar to past x-rays. Laboratory Results 08/10/16 01:00 Red Blood Count 3.72, Mean Corpuscular Volume 91.9, Mean Corpuscular Hemoglobin 30.9, Mean Corpuscular Hemoglobin Concent 33.6, Mean Platelet Volume 9.8, Neutrophils (%) (Auto) 43.7, Lymphocytes (%) (Auto) 40.5, Monocytes (%) (Auto) 9.7, Eosinophils (%) (Auto) 4.6, Basophils (%) (Auto) 1.0, Neutrophils # (Auto) 1.80, Lymphocytes # (Auto) 1.67, Monocytes # (Auto) 0.40, Eosinophils # (Auto) 0.19, Basophils # (Auto) 0.04 08/10/16 01:00 Test 08/10/16 01:00 08/10/16 01:10 White Blood Count 4.12 K/uL (4.8-10.8) Red Blood Count 3.72 M/uL (4.2-5.4) Hemoglobin 11.5 g/dL (12.0-16.0) Hematocrit 34.2 % (37-47) Mean Corpuscular Volume 91.9 fL (80-100) Mean Corpuscular Hemoglobin 30.9 pg (25-34) Mean Corpuscular Hemoglobin Concent 33.6 g/dl (32-36) Platelet Count 210 K/uL (130-400) Mean Platelet Volume 9.8 fL (7.4-10.4) Neutrophils (%) (Auto) 43.7 % Lymphocytes (%) (Auto) 40.5 % Monocytes (%) (Auto) 9.7 % Eosinophils (%) (Auto) 4.6 % Basophils (%) (Auto) 1.0 % Neutrophils # (Auto) 1.80 K/uL (1.4-6.5) Lymphocytes # (Auto) 1.67 K/uL (1.2-3.4) Monocytes # (Auto) 0.40 K/uL (0.11-0.59) Eosinophils # (Auto) 0.19 K/uL (0-0.5) Basophils # (Auto) 0.04 K/uL (0-0.2) RDW Standard Deviation 52.3 fL (36.4-46.3) RDW Coefficient of Variation 15.5 % (11.5-14.5) Immature Granulocyte % (Auto) 0.5 % Immature Granulocyte # (Auto) 0.02 K/uL (0.00-0.02) Anion Gap 13.0 mmol/L (3-11) Est Creatinine Clear Calc Drug Dose 133.5 ml/min Estimated GFR () 116.3 Estimated GFR (Non- 100.3 BUN/Creatinine Ratio 10.2 (10-20) Calcium Level 8.1 mg/dl (8.5-10.1) Total Bilirubin 0.1 mg/dl (0.2-1) Aspartate Amino Transf (AST/SGOT) 15 U/L (15-37) Alanine Aminotransferase (ALT/SGPT) 51 U/L (12-78) Alkaline Phosphatase 145 U/L (45-117) Total Protein 6.7 gm/dl (6.4-8.2) Albumin 2.9 gm/dl (3.4-5.0) Globulin 3.8 gm/dl (2.5-4.0) Albumin/Globulin Ratio 0.8 (0.9-2) Thyroid Stimulating Hormone (TSH) 1.250 uIu/ml (0.300-4.500) Salicylates Level 3.4 mg/dl (2.8-20) Acetaminophen Level 4 ug/ml (10-30) Ethyl Alcohol mg/dL 16.0 mg/dl (0-3) Urine Color YELLOW Urine Appearance CLEAR (CLEAR) Urine pH 6.5 (4.5-7.5) Urine Specific [place] 1.012 (1.000-1.030) Urine Protein NEG (NEG) Urine Glucose (UA) 2+ (NEG) Urine Ketones NEG (NEG) Urine Occult Blood NEG (NEG) Urine Nitrite NEG (NEG) Urine Bilirubin NEG (NEG) Urine Urobilinogen NEG (NEG) Urine Leukocyte Esterase NEG (NEG) Urine WBC (Auto) 0 /hpf (0-5) Urine RBC (Auto) 0-4 /hpf (0-4) Urine Hyaline Casts (Auto) 0 /lpf (0-5) Urine Epithelial Cells (Auto) >30 /lpf (0-5) Urine Bacteria (Auto) NEG (NEG) Urine Opiates Screen POS (NEG) Urine Methadone, Qualitative NEG (NEG) Urine Barbiturates NEG (NEG) Urine Phencyclidine (PCP) Level NEG (NEG) Ur Amphetamine/Methamphetamine NEG (NEG) MDMA (Ecstasy) Screen NEG (NEG) Urine Benzodiazepines Screen NEG (NEG) Urine Cocaine Metabolite NEG (NEG) Urine Marijuana (THC) NEG (NEG) Laboratory results as reviewed by me. Medications Administered Medications (Trade) Dose Ordered Sig/Lucien Route Start Time Stop Time Status Last Admin Dose Admin Albuterol/ Ipratropium (Duoneb) 3 ml NOW STAT INH 08/10/16 00:40 08/10/16 00:43 DC 08/10/16 01:04 3 ML ECG Indication: chest pain, SOB/dyspnea Rate (beats per minute): 79 Rhythm: normal sinus Findings: PVC, no acute ischemic change Change: no significant change ED Course 0032: The patient was evaluated in room B4. A complete history and physical exam was performed. 0040: Ordered Albuterol (Duoneb) 3 mL INH. 0235: The patient has decided that she is agreeable to admission to the hospital , I will page Dr. Guzman. 0311: The patient states that the breathing treatment only helped for a few minutes. 0344: I discussed the case with Dr. Thomas ALCANTARA Hospitalist, he will evaluate the patient for further treatment. Medical Decision Differential: Sepsis, Infectious (UTI/Pneumonia/Meningitis/etc), Metabolic/ Electrolyte Abnormality, Cardiac, Hepatic, Endocrine, Toxicologic, Neurologic, amongst other pathologies entertained. 50 yr old female arrives complaining of chest pain, shortness of breath and etoh /cocaine withdrawal. She is very well known to myself and department. She is in no further distress than her usual self. Given neb though claiming only minimal help to her breathing. She does not appear to be in extremis, is oxygenating well and is not tachycardic. I do not feel she requires CT PE study given she states she is still taking her blood thinner. Would suspect that part of issue is her COPD acting up but no wheezing currently and would like to avoid steroids at this time. EKG similar to previous. Trop is bumped but is at her normal baseline. She wishes to be admitted prior to being cleared to go to rehab facility. She would clearly benefit from rehab and I have no way of truly medically clearing her at this time given her lab findings and multiple medical comorbidities. Consults Time Called: [phone] Consulting Physician: Dr. Thomas ALCANTARA Hospitalist Returned Call: [phone] I discussed the case with Dr. Thomas ALCANTARA Hospitalist, he will evaluate the patient for further treatment. Impression Primary Impression: COPD exacerbation Additional Impression: Chest pain Scribe Attestation The scribe's documentation has been prepared under my direction and personally reviewed by me in its entirety. I confirm that the note above accurately reflects all work, treatment, procedures, and medical decision making performed by me. Departure Information Dispostion Being Evaluated By Hospitalist Referrals Alonso Zuluaga M.D. (PCP) Patient Instructions My [facility] Problem Qualifiers Additional Impression: Chest pain Chest pain type: unspecified Qualified Codes: R07.9 - Chest pain, unspecified
[2016-08-10 01:30] LABS: BASO ABS # 0.04 K/uL (0-0.2); COMPLETE YES; EOS % 4.6 %; HEMATOCRIT 34.2 % (37-47); IG% 0.5 %; LYMPH % 40.5 %; LYMPH ABS # 1.67 K/uL (1.2-3.4); MEAN CELL VOLUME 91.9 fL (80-100); MEAN CORPUSCULAR HEMOGLOBIN 30.9 pg (25-34); MEAN CORPUSCULAR HGB CONC 33.6 g/dl (32-36); MEAN PLATELET VOLUME 9.8 fL (7.4-10.4); MONO % 9.7 %; NEUT % 43.7 %; PLATELET COUNT 210 K/uL (130-400); RED BLOOD COUNT 3.72 M/uL (4.2-5.4); WHITE BLOOD COUNT 4.12 K/uL (4.8-10.8)
[2016-08-10 01:36] LABS: URINE APPEARANCE CLEAR (CLEAR); URINE BILIRUBIN NEG (NEG); URINE COLOR YELLOW; URINE EPITHELIAL CELL AUTO >30 /lpf (0-5); URINE NITRITE NEG (NEG); URINE PH 6.5 (4.5-7.5); URINE SPECIFIC GRAVITY 1.012 (1.000-1.030); UROBILINOGEN NEG (NEG); ZZUR CULT IF INDIC CLEAN CATCH NO
[2016-08-10 01:42] LABS: BUN/CREATININE RATIO 10.2 (10-20); CALCIUM 8.1 mg/dl (8.5-10.1); CREATININE 0.7 mg/dl (0.60-1.20); POTASSIUM 3.7 mmol/L (3.5-5.1)
[2016-08-10 01:43] LABS: MANUAL MICROSCOPIC REQUIRED? NO; REVIEW REQ? NO
[2016-08-10 01:53] LABS: BENZODIAZEPINE, URINE NEG (NEG); COCAINE,URINE NEG (NEG); PHENCYCLIDINE, URINE NEG (NEG)
[2016-08-10 02:03] LABS: ALB/GLOB RATIO 0.8 (0.9-2); CKMB/CK RATIO 0.9 (0-3.0); THYROID STIMULATING HORMONE 1.25 uIu/ml (0.300-4.500)
[2016-08-10] MEDS ORDERED: GLUCOSE 10 TABS/TUBE PO PRN (04:00)
[2016-08-10] MEDS ORDERED: MAGNESIUM HYDROXIDE SUSP 30 ML UDC PO PRN (04:00)
[2016-08-10] MEDS ORDERED: ALBUTEROL HFA 8 GM INHALER INH PRN (04:00)
[2016-08-10] MEDS ORDERED: GLUCAGON FOR INJ 1 MG VIAL SQ PRN (04:00)
[2016-08-10] MEDS ORDERED: NITROGLYCERIN 0.4 MG SL PER TAB CHARGE SL PRN (04:00)
[2016-08-10] MEDS ORDERED: GLUCOSE 40% GEL 15 GM TUBE PO PRN (04:00)
[2016-08-10] MEDS ORDERED: ZOLPIDEM TARTRATE 5 MG TAB PO PRN ×2 (04:00)
[2016-08-10] MEDS ORDERED: ACETAMINOPHEN 325 MG TAB PO PRN ×2 (04:00)
[2016-08-10] MEDS ORDERED: ONDANSETRON INJ 2 MG/ML 2 ML VIAL IV PRN (04:00)
[2016-08-10] MEDS ORDERED: LACTULOSE SYRUP 30 GM/45 ML UDP PO PRN (04:00)
[2016-08-10] MEDS ORDERED: ALUMINUM/MAGNESIUM/SIMETH (MAALOX MAX) 30 ML UDC PO PRN (04:00)
[2016-08-10] MEDS ORDERED: ALBUT/IPRATROP 3MG/0.5MG NEB 3 ML VIAL INH PRN (04:00)
[2016-08-10] MEDS ORDERED: DEXTROSE 50% 50 ML SYR IV PRN (04:00)
--- NOTE | 2016-08-10 04:19 | History and Physical ---
History & Physical Date & Time of Service: Aug 10, 2016 at 04:07 Chief Complaint: DETOX Primary Care Physician: Alonso Zuluaga M.D. History of Present Illness Source: patient The patient is a 50-year-old female who presents emergency department to undergo medical assessment for acceptance to [facility]. She's had ongoing chest pain and shortness of breath, and reports that she felt much had a heart attack a couple days ago. She also has chest soreness, generalized myalgias and arthralgias, abdominal discomfort, lower pelvic pain that changes with urination, and generalized fatigue. She reports that she's had a chronic cough, but more recently has been bringing up green-colored mucus. She does her report use of alcohol tonight, and her last use of cocaine was a few days ago. She has been taking all medications as directed, including Apixiban. Past Medical/Surgical History Medical Problems: (1) Afib Status: Chronic (2) Alcohol abuse Status: Chronic (3) Atrial fibrillation Status: Chronic (4) Benzodiazepine abuse Status: Chronic (5) Chronic generalized pain disorder Status: Chronic (6) Cocaine abuse Status: Chronic (7) Diabetes Status: Chronic (8) Diabetes Status: Chronic (9) Fatty liver Status: Chronic (10) HTN (hypertension) Status: Chronic (11) Major depression Status: Chronic (12) Neuropathy Status: Chronic (13) Obesity Status: Chronic (14) Opiate addiction Status: Chronic (15) Palpitations Status: Chronic (16) Personality disorder Status: Chronic (17) Sciatic nerve disease Status: Chronic (18) Sleep apnea Status: Chronic (19) Suicide attempt Status: Chronic Surgical Problems: (1) H/O foot surgery Status: Resolved (2) H/O ovarian cystectomy Status: Resolved Family History Heart disease Social History Smoking Status: Current Every Day Smoker Smokeless Tobacco Use: Yes Alcohol Use: heavy Drug Use: cocaine, marijuana Marital Status: single Housing status: lives alone Occupational Status: disabled Immunizations History of Influenza Vaccine: Yes Influenza Vaccine Date: Apr 23, 2012 History of Tetanus Vaccine?: Unknown History of Pneumococcal: Yes Pneumococcal Date: Mar 12, 2011 History of Hepatitis B Vaccine: had one shot of the series Multi-Drug Resistant Organisms History of MDRO: No Allergies Coded Allergies: Haloperidol (Verified Allergy, Severe, TONGUE SWELLING, 08/10/16) Margarine (Verified Allergy, Severe, swelling, 08/10/16) "BUTTER ADDED TO FOODS" Penicillins (Verified Allergy, Unknown, UNKNOWN, 08/10/16) PER CHRISSY IN [facility] Sulfamethoxazole w/Trimethoprim (Verified Allergy, Unknown, ., 08/10/16) Morphine (Verified Adverse Reaction, Mild, HEADACHE, 08/10/16) Oxycodone (Verified Adverse Reaction, Unknown, ITCH, 08/10/16) Home Medications Scheduled Apixaban (Eliquis), 5 MG PO BID Aspirin (Aspirin EC Low Dose), 81 MG PO QAM Diltiazem Hcl Coated Beads (Diltiazem Hcl Er), 300 MG PO QAM Fluticasone Furoate-Vilanterol (Breo Ellipta), 1 PUFF INH BID Furosemide (Furosemide), 40 MG PO QAM Insulin Aspart (Novolog Flexpen), 8 UNITS SQ TIDM Insulin Glargine (Lantus Solostar), 38 UNITS SQ HS Losartan Potassium (Losartan Potassium), 50 MG PO DAILY Metoprolol Succinate (Metoprolol Succinate ER), 100 MG PO BID Omeprazole (Prilosec), 20 MG PO QAM Paliperidone Palmitate (Invega Sustenna), 1 DOSE IM MONTHLY Potassium Chloride Microencaps (Potassium Chloride Er), 20 MEQ PO DAILY Ranitidine HCl (Ranitidine HCl), 150 MG PO BID Trazodone HCl (Trazodone HCl), 1 TAB PO HS Valacyclovir HCl (Valacyclovir HCl), 500 MG PO QAM Venlafaxine Hcl (Effexor Extended Rel), 75 MG PO DAILY Scheduled PRN Albuterol (Ventolin), 2 PUFFS INH QID PRN for Shortness of Breath Albuterol Sulf (Proventil 0.083% 2.5MG/3ML), 1 VIAL NEB Q4-6HRS PRN for Wheezing Guaifenesin (Mucinex Maximum Strength), 1 TAB PO BID PRN for PRN Hydrocodone/Acetaminophen ([place] 10/325 Tab), 1 TAB PO TID PRN for Pain Ipratropium-Albuterol (Duoneb), 1 TREATMENT INH QID PRN for SOB/Wheezing Lactulose (Constulose), 45 ML PO DAILY PRN for Constipation Review of Systems The patient denies lower extremity swelling, vision change, hearing change, sore throat, fevers, chills, sweats, weight change, vomiting, blood in urine or stool, dysuria, urinary frequency or urgency, memory loss, rash, abnormal bruising or bleeding, imbalance, focal weakness, night sweats, or allergy symptoms. The review of systems is otherwise negative other than for that already noted above, and at least 10 systems have been reviewed. Physical Exam Vital Signs Date Time Temp Pulse Resp B/P Pulse Ox O2 Delivery O2 Flow Rate FiO2 08/10/16 02:23 78 08/10/16 01:37 80 18 131/67 97 Room Air 08/10/16 00:18 37.3 80 20 162/87 95 Room Air The patient is awake, well-developed and adequately nourished, alert and oriented 3, normocephalic and atraumatic, lying in bed and in no acute distress. HEENT--PERRL, EOMI, mucous membranes and oropharynx moist. Neck--supple, no JVD or bruits, thyroid normal, trachea midline, no adenopathy. Heart--normal S1 and S2, no extra beats, no murmurs, rubs or gallops. Lungs--a few scattered wheezes bilaterally, no respiratory distress, no accessory muscle use. Abdomen--normal bowel sounds and soft, nontender and nondistended, no hernias or masses, no organomegaly, and obese. Extremities--no cyanosis, clubbing or edema. There are good distal pulses b/l. Dermatologic--normal skin turgor, normal color, warm and dry, no abnormal lymph nodes, no rash. Neurologic--cranial nerves II through XII grossly intact, motor and sensory examination normal. Rheumatologic--normal range of motion, nontender, muscles and joints. Psychiatric--normal affect. Diagnostics Laboratory Results Results Past 24 Hours Test 08/10/16 01:00 08/10/16 01:10 08/10/16 03:51 Range/Units White Blood Count 4.12 4.8-10.8 K/uL Red Blood Count 3.72 4.2-5.4 M/uL Hemoglobin 11.5 12.0-16.0 g/dL Hematocrit 34.2 37-47 % Mean Corpuscular Volume 91.9 80-100 fL Mean Corpuscular Hemoglobin 30.9 25-34 pg Mean Corpuscular Hemoglobin Concent 33.6 32-36 g/dl Platelet Count 210 130-400 K/uL Mean Platelet Volume 9.8 7.4-10.4 fL Neutrophils (%) (Auto) 43.7 % Lymphocytes (%) (Auto) 40.5 % Monocytes (%) (Auto) 9.7 % Eosinophils (%) (Auto) 4.6 % Basophils (%) (Auto) 1.0 % Neutrophils # (Auto) 1.80 1.4-6.5 K/uL Lymphocytes # (Auto) 1.67 1.2-3.4 K/uL Monocytes # (Auto) 0.40 0.11-0.59 K/uL Eosinophils # (Auto) 0.19 0-0.5 K/uL Basophils # (Auto) 0.04 0-0.2 K/uL RDW Standard Deviation 52.3 36.4-46.3 fL RDW Coefficient of Variation 15.5 11.5-14.5 % Immature Granulocyte % (Auto) 0.5 % Immature Granulocyte # (Auto) 0.02 0.00-0.02 K/uL Sodium Level 139 136-145 mmol/L Potassium Level 3.7 3.5-5.1 mmol/L Chloride Level 101 98-107 mmol/L Carbon Dioxide Level 25 21-32 mmol/L Anion Gap 13.0 3-11 mmol/L Blood Urea Nitrogen 7 7-18 mg/dl Creatinine 0.70 0.60-1.20 mg/dl Est Creatinine Clear Calc Drug Dose 133.5 ml/min Estimated GFR () 116.3 Estimated GFR (Non- 100.3 BUN/Creatinine Ratio 10.2 10-20 Random Glucose 189 70-99 mg/dl Calcium Level 8.1 8.5-10.1 mg/dl Total Bilirubin 0.1 0.2-1 mg/dl Aspartate Amino Transf (AST/SGOT) 15 15-37 U/L Alanine Aminotransferase (ALT/SGPT) 51 12-78 U/L Alkaline Phosphatase 145 45-117 U/L Total Creatine Kinase 207 26-192 U/L Creatine Kinase MB 1.8 0.5-3.6 ng/ml Creatine Kinase MB Ratio 0.9 0-3.0 Troponin I 0.245 0-0.045 ng/ml Total Protein 6.7 6.4-8.2 gm/dl Albumin 2.9 3.4-5.0 gm/dl Globulin 3.8 2.5-4.0 gm/dl Albumin/Globulin Ratio 0.8 0.9-2 Thyroid Stimulating Hormone (TSH) 1.250 0.300-4.500 uIu/ml Salicylates Level 3.4 2.8-20 mg/dl Acetaminophen Level 4 10-30 ug/ml Ethyl Alcohol mg/dL 16.0 0-3 mg/dl Urine Color YELLOW Urine Appearance CLEAR CLEAR Urine pH 6.5 4.5-7.5 Urine Specific [place] 1.012 1.000-1.030 Urine Protein NEG NEG Urine Glucose (UA) 2+ NEG Urine Ketones NEG NEG Urine Occult Blood NEG NEG Urine Nitrite NEG NEG Urine Bilirubin NEG NEG Urine Urobilinogen NEG NEG Urine Leukocyte Esterase NEG NEG Urine WBC (Auto) 0 0-5 /hpf Urine RBC (Auto) 0-4 0-4 /hpf Urine Hyaline Casts (Auto) 0 0-5 /lpf Urine Epithelial Cells (Auto) >30 0-5 /lpf Urine Bacteria (Auto) NEG NEG Urine Opiates Screen POS NEG Urine Methadone, Qualitative NEG NEG Urine Barbiturates NEG NEG Urine Phencyclidine (PCP) Level NEG NEG Ur Amphetamine/Methamphetamine NEG NEG MDMA (Ecstasy) Screen NEG NEG Urine Benzodiazepines Screen NEG NEG Urine Cocaine Metabolite NEG NEG Urine Marijuana (THC) NEG NEG EKG EKG shows normal sinus rhythm at 79 bpm, there are no acute ST-T changes. There ss question of old septal IL. Impression Assessment and Plan NSTEMI/troponin is elevated 0.245--the patient reports she had severe chest pain a few days ago and thought she had an IL that time, and this would coincide with her last cocaine use. She'll be admitted to the telemetry unit, for serial cardiac enzymes, cardiac rhythm monitoring and a 2-D echocardiogram with Dopplers. We'll continue a PICC [place] 5 mg by mouth twice a day, enteric- coated aspirin 81 mg by mouth every morning, diltiazem extended release 3 mg by mouth every morning, furosemide 40 mg by mouth every morning, losartan potassium 50 mg by mouth daily, Toprol succinate ER 100 mg by mouth twice a day , and potassium chloride ER 20 mEq by mouth daily. COPD with exacerbation--continue Breo Ellipta one inhalation twice a day, duo nebs 4 times a day when necessary, guaifenesin extended release 600 mg by mouth twice a day, and place on levofloxacin 500 mg IV daily. Diabetes mellitus--continue Lantus insulin 30 units subcutaneous at bedtime, hold standing order for NovoLog 8 units subcutaneous 3 times a day with meals. Place on Accu-Cheks before meals and at bedtime with NovoLog coverage. GERD--change omeprazole 20 mg by mouth every morning to pantoprazole 40 mg by mouth every morning, and continue ranitidine 150 mg by mouth twice a day. Schizophrenia/Anxiety/depression continue venlafaxine ER 75 mg by mouth daily, trazodone 150 mg by mouth at bedtime. Continue Invega Sustenna IM monthly. Level of Care Telemetry Advanced Directives Existing Advance Directive: No Existing Living Will: No Existing Power of Master Carpenter: No VTE Prophylaxis VTE Risk Assessment Done? Y/N: Yes Risk Level: Moderate Given or contraindicated: Other Anticoagulation (Apixiban)
[2016-08-10] MEDS ORDERED: LEVAQUIN 500MG / 100ML D5W IV STA (04:30)
[2016-08-10] MEDS: DiphenhydrAMINE HCL 50 MG/ML VIAL IV PRN ×2 (05:11→17:35)
[2016-08-10] MEDS: LEVOFLOXACIN / D5W 500 MG in PREMIXED IN D5W 100 ML IV SCH (05:11)
[2016-08-10] MEDS: RANITIDINE HCL 150 MG TAB PO SCH ×2 (07:26→20:02)
[2016-08-10] MEDS: APIXABAN 2.5 MG TAB PO SCH ×2 (07:27→20:01)
[2016-08-10] MEDS: PANTOprazole SOD 40 MG TAB PO SCH (07:27)
[2016-08-10] MEDS: DILTIAZEM HCL 300 MG CAPCR PO SCH (07:27)
[2016-08-10] MEDS: ASPIRIN 81 MG ECTAB PO SCH (07:27)
[2016-08-10] MEDS: FUROSEMIDE 40 MG TAB PO SCH (07:28)
[2016-08-10] MEDS: POTASSIUM CHLORIDE 20 MEQ TABCR PO SCH (07:28)
[2016-08-10] MEDS: VENLAFAXINE HCL XR 75 MG CAPXR PO SCH (07:29)
[2016-08-10] MEDS: LOSARTAN POTASSIUM 50 MG TAB PO SCH (07:29)
[2016-08-10] MEDS: METOPROLOL SUCC 50MG EXT REL TAB PO SCH ×2 (07:29→20:03)
[2016-08-10] MEDS: HYDROCODONE/ACETAMI 10/325 TAB PO PRN ×3 (07:52→20:09)
--- NOTE | 2016-08-10 08:05 | DIAGNOSTIC IMAGING REPORT ---
SINGLE VIEW CHEST CLINICAL HISTORY: Dyspnea. FINDINGS: An AP, portable, upright chest radiograph is compared to study dated 07/18/2016. The examination is significantly degraded by portable technique, large body habitus, and patient rotation. The cardiac silhouette is top normal for projection. The mediastinal contour is within normal limits. The lungs and pleural spaces are clear. No pneumothorax is seen. The bony thorax is grossly intact. IMPRESSION: No acute cardiopulmonary abnormality. Electronically signed by: Valerio Copeland M.D. 08/10/2016 8:04 AM Dictated Date/Time: 08/10/2016 8:03 AM
--- NOTE | 2016-08-10 08:48 | PROGRESS NOTE ---
DATE: 08/10/2016 DATE: 08/10/2016. HISTORY OF PRESENT ILLNESS: Ms. 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 Additionally, she was complaining of chest pain for the past 3 days which has been there continuously, claiming that "my heart is sore". Additionally, she complains of myalgias, shortness of breath, low grade fever, intermittent wheezing, and a cough productive of green sputum. Her onset of chest pain was approximately 3 days ago after her last use of cocaine. She did bump her troponin I level, but her CK and CK-MB levels are within normal limits. Her troponin I level is chronically elevated. The patient is currently being seen in room 238 bed 2. She continues to complain that her "heart is sore", she is coughing, mildly short of breath (even at rest), and a nebulizer treatment did not help her earlier in the Emergency Room. She does not want any corticosteroids at this time. She remains compliant with her medications. PHYSICAL EXAMINATION: VITAL SIGNS: Temperature is 36.6 degrees Celsius, pulse is 70 and regular, respiratory rate is 18 and unlabored, blood pressure is 142/84. SPO2 is 96% on 2 liters oxygen via nasal cannula. GENERAL: The patient is in no acute distress. HEAD, EYES, EARS, NOSE, AND THROAT: Head is atraumatic and normocephalic. EOMs intact. Sclerae are anicteric. Faces is symmetric. No perioral cyanosis. Mucous membranes moist. NECK: Without thyromegaly, adenopathy or JVD. Jugular venous pressure is difficult to assess due to the patient's body habitus. CHEST AND LUNGS: Are with diffuse expiratory wheezes in the upper lung landry bilaterally, diminished breath sounds in bilateral bases. No crackles or rales. CARDIOVASCULAR: S1 and S2 are regular, distant, without obvious murmur, gallop or rub. PMI is nonpalpable. No lifts, heaves, or thrills. No abdominal, aortic or renal bruits. ABDOMINAL EXAMINATION: Obese. Bowel sounds present. No masses, organomegaly or tenderness. EXTREMITIES: Are without clubbing, cyanosis or edema. Intact posterior tibial and radial pulses bilaterally. NEUROLOGIC EXAMINATION: The patient is awake and interactive. She does not open her eyes to speak to me. Answers questions appropriately. Speech is clear. Normal movement in bilateral upper and lower extremities. LABORATORIES: White blood cell count is 4.12. Hemoglobin 11.5 g/dl, hematocrit 34.2%. Platelet count is 210,000. Sodium is 139 mmol/L, potassium 3.7 mmol/L. BUN is 7 mg/dL. Creatinine 0.70 mg/dL. Random glucose was 177 mg/dL. Total CK is 207 with a CK-MB of 1.8 ng/mL. Initial troponin I is 0.245 ng/mL. Total protein 6.7 g/dL with an albumin of 2.9 grams per deciliter and globulin level 3.8 g/dL. TSH is normal at 1.250. Toxicology screen is positive for urine opiates, has an elevated ethyl alcohol level. Negative for cocaine metabolites. Urinalysis was positive for 2+ glucose, greater than 30 epithelial cells per high powered field, 0 urine white blood cells, 0-4 urine RBCs. Urine nitrite negative. Urine leukocyte esterase is negative. EKG on admission shows a normal sinus rhythm with occasional PVCs. Minimal voltage criteria for LVH. Poor R-wave transition in leads V1-V2, cannot rule out prior septal infarct. Current telemetry monitoring reveals normal sinus rhythm with occasional PACs. She did have a single 6 beat run of nonsustained V-tach. No recurrences. ASSESSMENT: 1. Chest pain x3 days with a chronically elevated troponin I level and nonspecific EKG changes. Possible myocardial ischemia in the presence of cocaine use. 2. Myalgias, fever, shortness of breath, wheezing and cough with green sputum, likely acute bronchitis in a patient with COPD. 3. Hypertension. 4. Type 2 diabetes mellitus. 5. Polysubstance abuse with a desire to go to [facility]. 6. Anxiety. 7. Schizoaffective disorder. 8. Paroxysmal atrial fibrillation. 9. Morbid obesity. PLAN: 1. Continue Aspirin 81 mg daily. Continue Apixaban. 2. Continue Diltiazem CD 300 mg daily. 3. Continue Cozaar 50 mg daily. 4. Continue Toprol-XL 100 mg b.i.d. 5. Continue inhalers as directed. 6. Continue NovoLog sliding scale insulin. 7. Monitor serial cardiac enzymes, serial blood sugars. 8. Recommend an Echocardiogram to evaluate for any wall motion abnormalities. 9. Continue IV Levofloxacin 500 mg every 24 hours for the treatment of underlying bronchitis. 10. We will continue to follow. [facility]
[2016-08-10] MEDS ORDERED: PERFLUTREN LIPID MICROSPHERE (DEFINITY) IV ONE (09:23)
[2016-08-10] MEDS: INSULIN ASPART 100 UNITS/ML 3 ML PEN SC SCH ×4 (09:27→20:23)
[2016-08-10 09:31] LABS: CKMB/CK RATIO 0.8 (0-3.0)
--- NOTE | 2016-08-10 14:26 | ECHOCARDIOGRAM REPORT ---
*NOTICE TO RECEIVING LIBERTARIAN AGENCY This information is strictly Confidential and protected under [place] law. [place] law prohibits you from making any further disclosure of this information unless further disclosure is expressly permitted by the written consent of the person to whom it pertains or is authorized by law. A general authorization for the release of medical or other information is not sufficient for this purpose. Hospital accepts no responsibility if the information is made available to any other person, INCLUDING THE PATIENT. Interpretation Summary * Name: TRINA LEMUS Study Date: 08/10/2016 09:05 AM BP: 143/85 mmHg * Patient Location: C.2T\S\S238\S\2 HR: 64 * : 1965 (M/d/yyyy) Gender: Female Height: 66 in * Age: 50 yrs Ethnicity: AA Weight: 294 lb * Ordering Physician: Joe Guzman * Referring Physician: Self, Referred * Performed By: Derrick Keys RDCS * * Reason For Study: Chest pain, SOB, NSTEMI * BSA: 2.4 m2 * -- Conclusions -- * Left ventricular systolic function is low normal. * No regional wall motion abnormalities noted. * Ejection Fraction = 50-55%. * There is mild tricuspid regurgitation. Procedure Details * A complete two-dimensional transthoracic echocardiogram was performed (2D, M-mode, Doppler and color flow Doppler). * The study was technically difficult. * The study was technically difficult, but visualization was adequate with the administration of Definity ultrasound contrast. * A contrast injection of Definity was performed to improve assessment of LV function. * Contrast was injected into an intravenous site in the right arm. * One vial of Definity ultrasound contrast was diluted in normal saline to a total volume of 10 ml. A total of '3' ml of solution was administered during imaging. * Lot # [id number] of Definity utilized for procedure. * Expiration date . * The attending nurse who injected the contrast agent was AMA Granger. Left Ventricle * The left ventricle is normal in size. * There is normal left ventricular wall thickness. * Left ventricular systolic function is low normal. * Ejection Fraction = 50-55%. * No regional wall motion abnormalities noted. Right Ventricle * The right ventricle is grossly normal size. * The right ventricular systolic function is normal as assessed by tricuspid annular plane systolic excursion (TAPSE) (normal >1.5 cm). Atria * The left atrium is mildly dilated. * Right atrial size is normal. * There is no evidence of atrial septal defect, but resolution does not allow assessment for a patent foramen ovale. Mitral Valve * The mitral valve is grossly normal. * There is no mitral valve stenosis. * Significant mitral regurgitation is absent. Tricuspid Valve * The tricuspid valve is not well visualized, but is grossly normal. * There is mild tricuspid regurgitation. Aortic Valve * The aortic valve is trileaflet. * The aortic valve opens well. * No hemodynamically significant valvular aortic stenosis. * No aortic regurgitation is present. Pulmonic Valve * The pulmonary valve is not well seen, but the Doppler examination is normal without significant regurgitation or stenosis. * There is no significant pulmonary regurgitation. Great Vessels * The aortic root is normal size. Pericardium/Pleural * There is no pericardial effusion. Great Vessels * Normal inferior vena cava size and collapsability with sniff indicates a normal right atrial pressure of 3 mmHg MMode 2D Measurements and Calculations IVSd 1.1 cm IVSs 1.5 cm LVIDd 5.1 cm LVIDs 3.7 cm LVPWd 1.0 cm LVPWs 1.5 cm IVS/LVPW 1.1 FS 28.5 % EDV(Teich) 123.9 ml ESV(Teich) 56.3 ml EF(Teich) 54.6 % EDV(cubed) 132.8 ml ESV(cubed) 48.6 ml EF(cubed) 63.4 % % IVS thick 33.4 % % LVPW thick 45.3 % LV mass(C)d 209.1 grams LV mass(C)dI 88.8 grams/m\S\2 LV mass(C)s 205.8 grams LV mass(C)sI 87.4 grams/m\S\2 SV(Teich) 67.7 ml SI(Teich) 28.7 ml/m\S\2 SV(cubed) 84.2 ml SI(cubed) 35.7 ml/m\S\2 ACS 2.2 cm LA dimension 4.4 cm asc Aorta Diam 3.0 cm LVOT diam 2.1 cm LVOT area 3.4 cm\S\2 LVAd ap4 38.6 cm\S\2 LVLd ap4 8.0 cm EDV(MOD-sp4) 153.0 ml LVAs ap4 23.9 cm\S\2 LVLs ap4 7.4 cm ESV(MOD-sp4) 65.0 ml EF(MOD-sp4) 57.5 % LVAd ap2 28.9 cm\S\2 LVLd ap2 7.4 cm EDV(MOD-sp2) 91.0 ml LVAs ap2 22.2 cm\S\2 LVLs ap2 6.8 cm ESV(MOD-sp2) 58.0 ml EF(MOD-sp2) 36.3 % SV(MOD-sp4) 88.0 ml SI(MOD-sp4) 37.4 ml/m\S\2 SV(MOD-sp2) 33.0 ml SI(MOD-sp2) 14.0 ml/m\S\2 Doppler Measurements and Calculations MV E max елена 98.2 cm/sec MV A max елена 76.0 cm/sec MV E/A 1.3 MV dec time 0.23 sec Ao V2 max 141.6 cm/sec Ao max PG 8.0 mmHg Ao max PG (full) 4.2 mmHg LILLIAN(V,A) 2.3 cm\S\2 LILLIAN(V,D) 2.3 cm\S\2 LV V1 max PG 3.8 mmHg LV V1 max 98.1 cm/sec PA V2 max 160.8 cm/sec PA max PG 10.4 mmHg
[2016-08-10] MEDS: TRAZODONE HCL 100 MG TAB PO SCH (20:01)
[2016-08-10] MEDS: INSULIN GLARGINE SOLOSTAR 100 UNITS/ML 3 ML PEN SQ SCH (20:23)
[2016-08-10 20:40] LABS: CKMB/CK RATIO 0.9 (0-3.0)
[2016-08-10] MEDS: LORAZEPAM 2 MG/ML 1 ML VIAL IV PRN (21:55)
[2016-08-11] VITALS (9 sets, daily range): BP systolic 136–156; BP diastolic 67–95; PULSE 62–90; TEMP 36.4–36.9; O2SAT 93–98
[2016-08-11] MEDS: LEVOFLOXACIN / D5W 500 MG in PREMIXED IN D5W 100 ML IV SCH (05:48)
[2016-08-11 06:26] LABS: BASO % 0.4 %; BASO ABS # 0.02 K/uL (0-0.2); COMPLETE YES; EOS % 5.7 %; HEMATOCRIT 34.4 % (37-47); IG% 0.2 %; LYMPH % 39.4 %; LYMPH ABS # 1.79 K/uL (1.2-3.4); MEAN CELL VOLUME 90.3 fL (80-100); MEAN CORPUSCULAR HEMOGLOBIN 29.9 pg (25-34); MEAN CORPUSCULAR HGB CONC 33.1 g/dl (32-36); MEAN PLATELET VOLUME 9.8 fL (7.4-10.4); MONO % 9.7 %; NEUT % 44.6 %; PLATELET COUNT 217 K/uL (130-400); RED BLOOD COUNT 3.81 M/uL (4.2-5.4); WHITE BLOOD COUNT 4.54 K/uL (4.8-10.8)
[2016-08-11 06:37] LABS: INR 1.1 (0.9-1.1); PARTIAL THROMBOPLASTIN RATIO 1.1; PROTHROMBIN TIME (PATIENT) 11.4 SECONDS (9.0-12.0)
[2016-08-11 07:03] LABS: ALT/SGPT 36 U/L (12-78); AST/SGOT 12 U/L (15-37); BLOOD UREA NITROGEN 9 mg/dl (7-18); BUN/CREATININE RATIO 15.3 (10-20); CALCIUM 8.7 mg/dl (8.5-10.1); CARBON DIOXIDE 28 mmol/L (21-32); CHLORIDE 103 mmol/L (98-107); GLUCOSE 112 mg/dl (70-99); MAGNESIUM 2.2 mg/dl (1.8-2.4); POTASSIUM 3.8 mmol/L (3.5-5.1); SODIUM 138 mmol/L (136-145)
[2016-08-11 07:05] LABS: ALKALINE PHOSPHATASE 120 U/L (45-117)
[2016-08-11] MEDS: INSULIN ASPART 100 UNITS/ML 3 ML PEN SC SCH ×4 (09:00→21:10)
[2016-08-11] MEDS: RANITIDINE HCL 150 MG TAB PO SCH ×2 (09:42→21:07)
[2016-08-11] MEDS: APIXABAN 2.5 MG TAB PO SCH ×2 (09:42→21:07)
[2016-08-11] MEDS: POTASSIUM CHLORIDE 20 MEQ TABCR PO SCH (09:42)
[2016-08-11] MEDS: LOSARTAN POTASSIUM 50 MG TAB PO SCH (09:43)
[2016-08-11] MEDS: METOPROLOL SUCC 50MG EXT REL TAB PO SCH ×2 (09:43→21:07)
[2016-08-11] MEDS: VENLAFAXINE HCL XR 75 MG CAPXR PO SCH (09:43)
[2016-08-11] MEDS: PANTOprazole SOD 40 MG TAB PO SCH (09:43)
[2016-08-11] MEDS: ASPIRIN 81 MG ECTAB PO SCH (09:43)
[2016-08-11] MEDS: DILTIAZEM HCL 300 MG CAPCR PO SCH (09:44)
[2016-08-11] MEDS: FUROSEMIDE 40 MG TAB PO SCH (09:44)
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
[2016-08-11] MEDS: LORAZEPAM 2 MG/ML 1 ML VIAL IV PRN (12:47)
[2016-08-11] MEDS: ALBUT/IPRATROP 3MG/0.5MG NEB 3 ML VIAL INH SCH ×3 (13:00→20:07)
[2016-08-11] MEDS ORDERED: LORAZEPAM 1 MG TAB PO PRN (14:00)
--- NOTE | 2016-08-11 14:01 | Psych Management Progress Note ---
Psychiatry Miscellaneous Date of Service: Aug 11, 2016. Patient known to me from inpatient care and previous consults. She is not particularly cooperative with my assessment either today, having to be redirected for sleeping, some delay in response. She is more open about her substance use as amenable to inpatient rehab. She denies SI/abdi but appears blunted. Full consult to be dictated. No additional recs at this time although given history should restart Abilify (can be addressed at rehab, currently resistant). She should be placed on hospital withdrawal protocol as reportedly drinking 1 pint of liquor plus beer daily. She may require standing order librium at discretion of primary medical team.
[2016-08-11] MEDS: METHYLPREDNISOLONE IV 40 MG in SYRINGE 0 ML IV SCH ×2 (14:40→21:06)
[2016-08-11] MEDS: DiphenhydrAMINE HCL 50 MG/ML VIAL IV PRN ×2 (14:41→19:07)
[2016-08-11] MEDS: HYDROCODONE/ACETAMI 10/325 TAB PO PRN (15:20)
[2016-08-11] MEDS: FORMOTEROL FUMA NEBULIZER SOLN 20 MCG/2 ML VIAL INH SCH (20:06)
[2016-08-11] MEDS: TRAZODONE HCL 100 MG TAB PO SCH (21:07)
[2016-08-11] MEDS: INSULIN GLARGINE SOLOSTAR 100 UNITS/ML 3 ML PEN SQ SCH (21:11)
[2016-08-11] MEDS: LORAZEPAM INJ 0.5 MG in SYRINGE 0.75 ML IV PRN (21:16)
[2016-08-12] VITALS (8 sets, daily range): BP systolic 126–162; BP diastolic 82–94; PULSE 60–81; TEMP 36.4–36.8; O2SAT 94–97
[2016-08-12] MEDS: HYDROCODONE/ACETAMI 10/325 TAB PO PRN ×3 (00:06→15:37)
[2016-08-12] MEDS: DiphenhydrAMINE HCL 50 MG/ML VIAL IV PRN ×5 (00:54→22:13)
[2016-08-12] MEDS: LORAZEPAM INJ 0.5 MG in SYRINGE 0.75 ML IV PRN ×4 (01:43→18:20)
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
[2016-08-12] MEDS: LEVOFLOXACIN / D5W 500 MG in PREMIXED IN D5W 100 ML IV SCH (05:14)
[2016-08-12 05:49] LABS: COMPLETE YES; HEMATOCRIT 36.5 % (37-47); IG% 0.3 %; LYMPH % 13.8 %; LYMPH ABS # 0.81 K/uL (1.2-3.4); MEAN CELL VOLUME 89.9 fL (80-100); MEAN CORPUSCULAR HEMOGLOBIN 30.5 pg (25-34); MEAN PLATELET VOLUME 10.2 fL (7.4-10.4); MONO % 1.9 %; PLATELET COUNT 234 K/uL (130-400); RED BLOOD COUNT 4.06 M/uL (4.2-5.4); WHITE BLOOD COUNT 5.89 K/uL (4.8-10.8)
[2016-08-12 06:01] LABS: INR 1.1 (0.9-1.1); PARTIAL THROMBOPLASTIN RATIO 1.1; PROTHROMBIN TIME (PATIENT) 11.6 SECONDS (9.0-12.0)
[2016-08-12 06:33] LABS: ALKALINE PHOSPHATASE 134 U/L (45-117); ALT/SGPT 36 U/L (12-78); AST/SGOT 6 U/L (15-37); BLOOD UREA NITROGEN 12 mg/dl (7-18); BUN/CREATININE RATIO 15.2 (10-20); CALCIUM 8.6 mg/dl (8.5-10.1); CARBON DIOXIDE 27 mmol/L (21-32); CHLORIDE 101 mmol/L (98-107); CREATININE 0.76 mg/dl (0.60-1.20); GLUCOSE 222 mg/dl (70-99); MAGNESIUM 2.3 mg/dl (1.8-2.4); POTASSIUM 4.4 mmol/L (3.5-5.1); SODIUM 137 mmol/L (136-145)
[2016-08-12] MEDS: FORMOTEROL FUMA NEBULIZER SOLN 20 MCG/2 ML VIAL INH SCH ×2 (07:03→19:34)
[2016-08-12] MEDS: METOPROLOL SUCC 50MG EXT REL TAB PO SCH ×2 (07:06→21:20)
[2016-08-12] MEDS: ASPIRIN 81 MG ECTAB PO SCH (07:06)
[2016-08-12] MEDS: DILTIAZEM HCL 300 MG CAPCR PO SCH (07:07)
[2016-08-12] MEDS: LOSARTAN POTASSIUM 50 MG TAB PO SCH (07:07)
[2016-08-12] MEDS: VENLAFAXINE HCL XR 75 MG CAPXR PO SCH (07:07)
[2016-08-12] MEDS: PANTOprazole SOD 40 MG TAB PO SCH (07:08)
[2016-08-12] MEDS: APIXABAN 2.5 MG TAB PO SCH ×2 (07:08→21:20)
[2016-08-12] MEDS: POTASSIUM CHLORIDE 20 MEQ TABCR PO SCH (07:08)
[2016-08-12] MEDS: FUROSEMIDE 40 MG TAB PO SCH (07:09)
--- NOTE | 2016-08-12 07:19 | CARDIOLOGY CONSULTATION ---
DATE OF CONSULTATION: 08/10/2016 NOTICE TO RECEIVING [facility]ENCY This information is strictly Confidential and protected under [place] law. [place] law prohibits you from making any further disclosure of this information unless further disclosure is expressly permitted by the written consent of the person to whom it pertains or is authorized by law. A general authorization for the release of medical or other information is not sufficient for this purpose. Hospital accepts no responsibility if the information is made available to any other person, INCLUDING THE PATIENT. DATE OF CONSULTATION: 08/10/2016. PERTINENT HISTORY: Mrs. Judge is a 50-year-old white female admitted yesterday as part of an evaluation for transfer for detoxification at [facility]. She described the chest discomfort 3 days ago and therefore, hospitalization was recommended. The patient has a longstanding history of substance abuse. The patient explains she did cocaine 3 days ago and developed chest pain which has been persistent since that time. She describes a vague sensation in the mid sternal region. There is no associated shortness of breath, nausea, vomiting, diaphoresis, or radiation of the discomfort. She has noticed this with previous administrations of cocaine. The patient does not experience exertional chest discomfort. She denies dyspnea, syncope, presyncope, PND, orthopnea, palpitations, and lower extremity edema. Currently, the patient is resting comfortably in bed and without complaints. PAST MEDICAL HISTORY: 1. 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 2. Hypertension. 3. Paroxysmal atrial fibrillation. 4. Diabetes mellitus. 5. Obstructive sleep apnea. 6. GERD. 7. Alcohol abuse. 8. Opioid abuse. 9. Cocaine abuse. 10. Marijuana abuse. 11. Schizophrenia. 12. Anxiety/depression. 13. Obesity. 14. COPD. 15. Chronically elevated troponin I level. MEDICATIONS: 1. Cardizem-CD 300 mg per day. 2. Losartan 50 mg per day. 3. Lasix 40 mg per day. 4. Potassium 20 mEq daily. 5. Toprol-XL 100 mg b.i.d. 6. Eliquis 5 mg b.i.d. 7. Aspirin 81 mg per day. 8. Lantus 38 units subQ at bedtime. 9. Desyrel 150 mg at bedtime. 10. Aspirin 81 mg per day. 11. Zantac 150 mg b.i.d. 12. Valtrex 500 mg daily. 13. Effexor XR 75 mg daily. 14. Protonix 40 mg per day. 15. Sliding scale insulin. ALLERGIES: 1. PENICILLIN. 2. SULFA. SOCIAL HISTORY: The patient is single. Does not use tobacco. She is a heavy alcohol user. FAMILY HISTORY: No early coronary artery disease. REVIEW OF SYSTEMS: Negative except for that described above. PHYSICAL EXAMINATION: GENERAL: This is a morbidly obese black female lying supine in bed without complaints. VITAL SIGNS: Blood pressure is 126/67 with a regular pulse of 57. Respiratory rate is 22. The patient is afebrile at 36.9 degrees Celsius. Saturations 94% on room air. HEAD, EYES, EARS, NOSE, AND THROAT EXAMINATION: Negative. NECK: Supple with full carotid upstrokes. There are no carotid bruits. Jugular venous pressure is flat at 90 degrees. There is no thyromegaly. CARDIOVASCULAR EXAMINATION: Reveals a regular rhythm with normal S1 and S2. Heart sounds are distant. No obvious murmurs. LUNGS: Note diminished breath sounds at the bases. No rales. ABDOMEN: Obese without bruits. EXTREMITIES: Reveal intact radial artery pulses bilaterally. There is no peripheral edema. LABORATORY DATA: CBC notes a hemoglobin of 11.5, hematocrit 34.2, white count 4.1, platelet count 210,000. Electrolytes note a sodium of 139, potassium 3.7, chloride 101, bicarb 25, BUN 7, creatinine 0.7, glucose 177. Troponin I level is 0.245 with follow-up values of 0.244 and 0.256. EKG notes sinus rhythm with PVCs and left ventricular hypertrophy and repolarization changes. monitoring manager notes PVCs and one 6-beat run of nonsustained ventricular tachycardia. IMPRESSION: Atypical chest pain syndrome -- has lasted for 3 days according to her report. Troponin I level elevation is quite unremarkable. Her EKG does not suggest acute myocardial ischemia. Would simply continue medical management at this time. There is no indication for stress testing or cardiac catheterization as the etiology could be related to her cocaine abuse. PLAN: 1. Continue usual medications. 2. No further cardiac evaluation necessary. 3. Review echocardiogram in its entirety. 4. Further recommendations depending on her clinical course.
[2016-08-12] MEDS: ALBUT/IPRATROP 3MG/0.5MG NEB 3 ML VIAL INH SCH ×5 (07:43→19:34)
[2016-08-12] MEDS: RANITIDINE HCL 150 MG TAB PO SCH ×2 (09:00→21:19)
[2016-08-12] MEDS: METHYLPREDNISOLONE IV 40 MG in SYRINGE 0 ML IV SCH ×2 (09:04→21:21)
[2016-08-12] MEDS: INSULIN ASPART 100 UNITS/ML 3 ML PEN SC SCH ×4 (09:08→21:25)
[2016-08-12] MEDS ORDERED: ENOXAPARIN 40 MG/0.4 ML SYR SQ ONE (18:33)
--- NOTE | 2016-08-12 18:34 | Hospitalist Progress Note ---
Hospitalist Progress Note Date of Service Aug 12, 2016. Subjective Pt evaluation today including: conversation w/ patient, physical exam, chart review, lab review, review of studies, review of inpatient medication list PO Intake: dann po Voiding: no voiding problems Pt reports still wheezing and feeling SOB. Questions if she had a heart attack or not? Also upset about her glucose readings being high, knows it's from the steroids. Still some chest pain with cough Constitutional: No fever Respiratory: + cough, + shortness of breath, + wheezing Abdomen: No nausea, No pain, No vomiting Objective Vital Signs Date Time Temp Pulse Resp B/P Pulse Ox O2 Delivery O2 Flow Rate FiO2 08/12/16 15:20 75 20 96 Room Air 08/12/16 14:00 36.8 68 20 151/89 95 Room Air 08/12/16 11:08 62 20 95 Room Air 08/12/16 09:04 126/82 08/12/16 08:00 Room Air Nasal Cannula 08/12/16 07:16 36.6 60 20 152/84 94 Nasal Cannula 2.0 08/12/16 07:03 64 20 97 Room Air 08/12/16 00:00 Room Air 2.0 Nasal Cannula 08/11/16 22:46 36.9 62 20 139/67 93 Room Air 08/11/16 20:07 76 20 98 Room Air 08/11/16 20:00 Nasal Cannula 2.0 Physical Exam General Appearance: WD/WN, no apparent distress, + obese Eyes: normal inspection, sclerae normal ENT: hearing grossly normal Neck: trachea midline Respiratory/Chest: no respiratory distress, no accessory muscle use, + wheezing (diffuse exp wheezing, no crackles or rhonchi) Cardiovascular: regular rate, rhythm, no edema, no gallop, no murmur Abdomen: normal bowel sounds, non tender, soft (and obese) Extremities: normal inspection, no pedal edema, no calf tenderness Neurologic/Psychiatric: alert, normal mood/affect, oriented x 3 Skin: normal color, warm/dry, no rash Laboratory Results Last 24 Hours Test 08/11/16 19:59 08/12/16 05:16 08/12/16 07:47 08/12/16 11:35 Bedside Glucose 267 mg/dl 213 mg/dl 251 mg/dl White Blood Count 5.89 K/uL Red Blood Count 4.06 M/uL Hemoglobin 12.4 g/dL Hematocrit 36.5 % Mean Corpuscular Volume 89.9 fL Mean Corpuscular Hemoglobin 30.5 pg Mean Corpuscular Hemoglobin Concent 34.0 g/dl Platelet Count 234 K/uL Mean Platelet Volume 10.2 fL Neutrophils (%) (Auto) 84.0 % Lymphocytes (%) (Auto) 13.8 % Monocytes (%) (Auto) 1.9 % Eosinophils (%) (Auto) 0.0 % Basophils (%) (Auto) 0.0 % Neutrophils # (Auto) 4.95 K/uL Lymphocytes # (Auto) 0.81 K/uL Monocytes # (Auto) 0.11 K/uL Eosinophils # (Auto) 0.00 K/uL Basophils # (Auto) 0.00 K/uL RDW Standard Deviation 48.5 fL RDW Coefficient of Variation 14.8 % Immature Granulocyte % (Auto) 0.3 % Immature Granulocyte # (Auto) 0.02 K/uL Prothrombin Time 11.6 SECONDS Prothromb Time International Ratio 1.1 Activated Partial Thromboplast Time 28.9 SECONDS Partial Thromboplastin Ratio 1.1 Sodium Level 137 mmol/L Potassium Level 4.4 mmol/L Chloride Level 101 mmol/L Carbon Dioxide Level 27 mmol/L Anion Gap 9.0 mmol/L Blood Urea Nitrogen 12 mg/dl Creatinine 0.76 mg/dl Est Creatinine Clear Calc Drug Dose 123.5 ml/min Estimated GFR () 105.3 Estimated GFR (Non- 90.8 BUN/Creatinine Ratio 15.2 Random Glucose 222 mg/dl Calcium Level 8.6 mg/dl Magnesium Level 2.3 mg/dl Total Bilirubin 0.3 mg/dl Direct Bilirubin < 0.1 mg/dl Aspartate Amino Transf (AST/SGOT) 6 U/L Alanine Aminotransferase (ALT/SGPT) 36 U/L Alkaline Phosphatase 134 U/L Total Protein 7.2 gm/dl Albumin 3.0 gm/dl Test 08/12/16 16:10 Bedside Glucose 324 mg/dl Assessment and Plan 50 F with elevated troponin, recent cocaine use, EtOH abuse, and now acute on chronic respiratory insufficiency from AECOPD. Chest pain x3 days with a chronically elevated troponin I level and nonspecific EKG changes. PA-fib (in NSR on admission), HTN ECHO: * Left ventricular systolic function is low normal. * No regional wall motion abnormalities noted. * Ejection Fraction = 50-55%. * There is mild tricuspid regurgitation -continue Aspirin, apixiban, metoprolol, echo with preserved EF and no RWMA -Cardiology says no further eval needed as CP most likely secondary to cocaine use -continue ASA, losartan, lasix, metoprolol, diltiazem Acute on chronic respiratory insufficiency, AECOPD. H/o ELIZABETH-noncompliance with CPAP -continue Levaquin which began 08/10, adding steroids and formoterol 08/11 to scheduled nebs -place back on home Breo Ellipta upon discharge -taper steroids down when wheezing improved -counseled on smoking cessation Type 2 diabetes mellitus. lantus 38 units, typically takes aspartate with meals 8 U will use ssi here -increase Lantus for hyperglycemia from steroids -increase SSI Polysubstance abuse with a desire to go to [facility]. -d/c there when AECOPD improves -ativan prn for EtOH withdrawal and taper down -Concern about going to rehab on chronic opioids for pain?? Anxiety/Schizoaffective disorder -continue effexor and HS trazadone, benadryl -on Invega as outpt -Psychiatry following Proph-add on Lovenox PPI
[2016-08-12] MEDS: TRAZODONE HCL 100 MG TAB PO SCH (21:20)
[2016-08-12] MEDS: INSULIN GLARGINE SOLOSTAR 100 UNITS/ML 3 ML PEN SQ SCH (21:23)
[2016-08-13] MEDS: LORAZEPAM INJ 0.5 MG in SYRINGE 0.75 ML IV PRN ×3 (00:06→12:22)
[2016-08-13] MEDS: HYDROCODONE/ACETAMI 10/325 TAB PO PRN ×3 (00:06→15:42)
[2016-08-13 06:43] LABS: COMPLETE YES; IG% 0.4 %; LYMPH % 8.5 %; LYMPH ABS # 0.94 K/uL (1.2-3.4); MEAN CELL VOLUME 92.1 fL (80-100); MEAN CORPUSCULAR HEMOGLOBIN 30.5 pg (25-34); MEAN CORPUSCULAR HGB CONC 33.1 g/dl (32-36); MEAN PLATELET VOLUME 10.3 fL (7.4-10.4); MONO % 2.9 %; NEUT % 88.2 %; PLATELET COUNT 211 K/uL (130-400); WHITE BLOOD COUNT 11.11 K/uL (4.8-10.8)
[2016-08-13 07:20] LABS: BUN/CREATININE RATIO 14.7 (10-20); CALCIUM 8.6 mg/dl (8.5-10.1); CREATININE 0.75 mg/dl (0.60-1.20); MAGNESIUM 2.3 mg/dl (1.8-2.4); POTASSIUM 4.5 mmol/L (3.5-5.1)
[2016-08-13 07:38] VITALS: BP 153/80; PULSE 65; TEMP 36.7; O2SAT 97
[2016-08-13 07:39] VITALS: PULSE 79; O2SAT 96
[2016-08-13] MEDS: ALBUT/IPRATROP 3MG/0.5MG NEB 3 ML VIAL INH SCH ×4 (07:39→19:28)
[2016-08-13] MEDS: FORMOTEROL FUMA NEBULIZER SOLN 20 MCG/2 ML VIAL INH SCH ×2 (07:39→19:28)
[2016-08-13] MEDS: VENLAFAXINE HCL XR 75 MG CAPXR PO SCH (08:13)
[2016-08-13] MEDS: LEVOFLOXACIN 500 MG TAB PO SCH (08:13)
[2016-08-13] MEDS: DILTIAZEM HCL 300 MG CAPCR PO SCH (08:13)
[2016-08-13] MEDS: APIXABAN 2.5 MG TAB PO SCH ×2 (08:13→21:07)
[2016-08-13] MEDS: LOSARTAN POTASSIUM 50 MG TAB PO SCH (08:13)
[2016-08-13] MEDS: METOPROLOL SUCC 50MG EXT REL TAB PO SCH ×2 (08:14→21:10)
[2016-08-13] MEDS: RANITIDINE HCL 150 MG TAB PO SCH ×2 (08:15→21:10)
[2016-08-13] MEDS: FUROSEMIDE 40 MG TAB PO SCH (08:15)
[2016-08-13] MEDS: ASPIRIN 81 MG ECTAB PO SCH (08:15)
[2016-08-13] MEDS: PANTOprazole SOD 40 MG TAB PO SCH (08:15)
[2016-08-13] MEDS: POTASSIUM CHLORIDE 20 MEQ TABCR PO SCH (08:16)
[2016-08-13] MEDS: METHYLPREDNISOLONE IV 40 MG in SYRINGE 0 ML IV SCH (08:16)
[2016-08-13] MEDS: DiphenhydrAMINE HCL 50 MG/ML VIAL IV PRN ×2 (08:22→15:42)
[2016-08-13] MEDS: INSULIN ASPART 100 UNITS/ML 3 ML PEN SC SCH ×4 (08:27→21:09)
[2016-08-13] MEDS ORDERED: ENOXAPARIN 40 MG/0.4 ML SYR SQ SCH (09:00)
[2016-08-13 11:19] VITALS: PULSE 79; O2SAT 98
[2016-08-13 13:38] VITALS: BMI 46.2
[2016-08-13 14:46] VITALS: BP 156/79; PULSE 60; TEMP 36.9; O2SAT 95
[2016-08-13 15:37] VITALS: PULSE 71; O2SAT 96
[2016-08-13 15:59] LABS: COD UR NEGATIVE NG/ML (CUTOFF=50); HYDROCOD UR 2650 NG/ML (CUTOFF=50); HYDROMOR UR 56 NG/ML (CUTOFF=50); MORPHINE UR NEGATIVE NG/ML (CUTOFF=50); NORHYDROCODONE CONF UR 442 NG/ML (CUTOFF=50); OXYMORPH UR NEGATIVE NG/ML (CUTOFF=50)
[2016-08-13 19:29] VITALS: PULSE 77; O2SAT 96
--- NOTE | 2016-08-13 20:21 | Hospitalist Progress Note ---
Hospitalist Progress Note Date of Service Aug 13, 2016. Subjective Pt evaluation today including: conversation w/ patient, physical exam, lab review, review of inpatient medication list Pt says still coughing up some brownish sputum and wheezing, but doing ok. No more chest pain. When asked about her opioid use, she became paranoid that I was going to tell her Pain Management MDs that she is going to rehab. SHe says she can go without the hydrocodone for 30 days while at rehab, says she only needs rehab for her EtOH use, that she does not have a drug problem. Cocaine is just an occasional recreational drug and she does not have a "problem" with it. Constitutional: No fever Respiratory: + cough, + sputum, + wheezing Cardiovascular: No chest pain Abdomen: + constipation, No pain Psychiatric: + anxiety, + substance abuse Skin: No rash Objective Vital Signs Date Time Temp Pulse Resp B/P Pulse Ox O2 Delivery O2 Flow Rate FiO2 08/13/16 19:29 77 20 96 Room Air 08/13/16 16:00 Room Air 08/13/16 15:37 71 20 96 Room Air 08/13/16 14:46 36.9 60 20 156/79 95 08/13/16 11:19 79 20 98 Room Air 08/13/16 08:00 Room Air Nasal Cannula 08/13/16 07:39 79 20 96 Room Air 08/13/16 07:38 36.7 65 20 153/80 97 08/13/16 00:00 Nasal Cannula 2.0 08/12/16 23:09 36.6 61 18 162/94 96 Room Air Physical Exam General Appearance: WD/WN, no apparent distress, + obese Eyes: normal inspection, sclerae normal Neck: trachea midline Respiratory/Chest: no respiratory distress, no accessory muscle use, + wheezing (diffusely but moving air well) Cardiovascular: regular rate, rhythm, no edema, no gallop, no murmur Abdomen: normal bowel sounds, non tender, soft (and obese) Extremities: non-tender, normal inspection, no pedal edema, no calf tenderness Neurologic/Psychiatric: alert Skin: normal color, warm/dry, no rash Laboratory Results Last 24 Hours Test 08/12/16 20:24 08/13/16 06:25 08/13/16 07:44 08/13/16 11:32 Bedside Glucose 289 mg/dl 227 mg/dl 193 mg/dl White Blood Count 11.11 K/uL Red Blood Count 3.80 M/uL Hemoglobin 11.6 g/dL Hematocrit 35.0 % Mean Corpuscular Volume 92.1 fL Mean Corpuscular Hemoglobin 30.5 pg Mean Corpuscular Hemoglobin Concent 33.1 g/dl Platelet Count 211 K/uL Mean Platelet Volume 10.3 fL Neutrophils (%) (Auto) 88.2 % Lymphocytes (%) (Auto) 8.5 % Monocytes (%) (Auto) 2.9 % Eosinophils (%) (Auto) 0.0 % Basophils (%) (Auto) 0.0 % Neutrophils # (Auto) 9.81 K/uL Lymphocytes # (Auto) 0.94 K/uL Monocytes # (Auto) 0.32 K/uL Eosinophils # (Auto) 0.00 K/uL Basophils # (Auto) 0.00 K/uL RDW Standard Deviation 50.4 fL RDW Coefficient of Variation 15.0 % Immature Granulocyte % (Auto) 0.4 % Immature Granulocyte # (Auto) 0.04 K/uL Sodium Level 137 mmol/L Potassium Level 4.5 mmol/L Chloride Level 102 mmol/L Carbon Dioxide Level 24 mmol/L Anion Gap 11.0 mmol/L Blood Urea Nitrogen 11 mg/dl Creatinine 0.75 mg/dl Est Creatinine Clear Calc Drug Dose 122.5 ml/min Estimated GFR () 107.0 Estimated GFR (Non- 92.3 BUN/Creatinine Ratio 14.7 Random Glucose 273 mg/dl Calcium Level 8.6 mg/dl Magnesium Level 2.3 mg/dl Total Bilirubin 0.3 mg/dl Direct Bilirubin 0.1 mg/dl Aspartate Amino Transf (AST/SGOT) 4 U/L Alanine Aminotransferase (ALT/SGPT) 25 U/L Alkaline Phosphatase 117 U/L Total Protein 6.7 gm/dl Albumin 2.8 gm/dl Test 08/13/16 16:37 Bedside Glucose 281 mg/dl Assessment and Plan 50 F with elevated troponin, recent cocaine use, EtOH abuse, and now acute on chronic respiratory insufficiency from AECOPD. Chest pain x3 days with a chronically elevated troponin I level stable x 4 at 0.2 and nonspecific EKG changes. PA-fib (in NSR on admission), HTN ECHO: * Left ventricular systolic function is low normal. * No regional wall motion abnormalities noted. * Ejection Fraction = 50-55%. * There is mild tricuspid regurgitation -continue Aspirin, apixiban, metoprolol, echo with preserved EF and no RWMA -Cardiology says no further eval needed as CP most likely secondary to cocaine use -continue ASA, losartan, lasix, metoprolol, diltiazem, KCl Acute on chronic respiratory insufficiency, AECOPD. H/o ELIZABETH-noncompliance with CPAP. Continues with wheezing but not requiring O2 at rest -continue Levaquin which began 08/10, adding steroids and formoterol 08/11 to scheduled nebs -place back on home Breo Ellipta upon discharge -taper steroids down and switch to po prednisone tomorrow -counseled on smoking cessation Type 2 diabetes mellitus. lantus being titrated by Pharmacy, typically takes aspartate with meals 8 U will use ssi here -increase Lantus for hyperglycemia from steroids -increase SSI Polysubstance abuse with a desire to go to [facility]. -d/c there when AECOPD improves -ativan prn for EtOH withdrawal and taper down, d/c IV ativan as is taking ATC, switch to po prn only -Concern about going to rehab on chronic opioids for pain-is Rxd by Pain Management and paranoid that her PM MD will find out she is going to rehab--> states she is only going ot rehab for EtOH, not drugs. -stop hydrocodone here as I will not be Rx it for her to go to rehab -start Elavil as replacement for pain med as she declines all other non-opioid pain meds Anxiety/Schizoaffective disorder -continue effexor and HS trazadone, benadryl -on Invega as outpt -Psychiatry following Proph-Eliquis PPI
[2016-08-13] MEDS ORDERED: AMITRIPTYLINE HCL 25 MG TAB PO SCH (21:00)
[2016-08-13] MEDS: INSULIN GLARGINE SOLOSTAR 100 UNITS/ML 3 ML PEN SQ SCH (21:09)
[2016-08-13] MEDS: TRAZODONE HCL 100 MG TAB PO SCH (21:10)
[2016-08-14] VITALS (10 sets, daily range): BP systolic 143–182; BP diastolic 82–96; PULSE 53–92; TEMP 36.7–37.2; O2SAT 91–97
[2016-08-14] MEDS: ALBUT/IPRATROP 3MG/0.5MG NEB 3 ML VIAL INH SCH ×4 (07:04→19:19)
[2016-08-14] MEDS: FORMOTEROL FUMA NEBULIZER SOLN 20 MCG/2 ML VIAL INH SCH ×2 (07:04→19:19)
[2016-08-14 07:57] LABS: HEMATOCRIT 34.6 % (37-47); MEAN CORPUSCULAR HEMOGLOBIN 30.9 pg (25-34); MEAN CORPUSCULAR HGB CONC 33.5 g/dl (32-36); MEAN PLATELET VOLUME 10.5 fL (7.4-10.4); PLATELET COUNT 227 K/uL (130-400); RED BLOOD COUNT 3.76 M/uL (4.2-5.4); WHITE BLOOD COUNT 11.09 K/uL (4.8-10.8)
[2016-08-14] MEDS: PANTOprazole SOD 40 MG TAB PO SCH (07:57)
[2016-08-14] MEDS: POTASSIUM CHLORIDE 20 MEQ TABCR PO SCH (07:57)
[2016-08-14] MEDS: LOSARTAN POTASSIUM 50 MG TAB PO SCH (07:57)
[2016-08-14] MEDS: LORAZEPAM 1 MG TAB PO PRN ×2 (07:57→13:49)
[2016-08-14] MEDS: FUROSEMIDE 40 MG TAB PO SCH (07:58)
[2016-08-14] MEDS: DILTIAZEM HCL 300 MG CAPCR PO SCH (07:58)
[2016-08-14] MEDS: VENLAFAXINE HCL XR 75 MG CAPXR PO SCH (07:59)
[2016-08-14] MEDS: METOPROLOL SUCC 50MG EXT REL TAB PO SCH ×2 (07:59→21:00)
[2016-08-14] MEDS: ASPIRIN 81 MG ECTAB PO SCH (07:59)
[2016-08-14] MEDS: APIXABAN 2.5 MG TAB PO SCH ×2 (08:00→21:04)
[2016-08-14] MEDS: RANITIDINE HCL 150 MG TAB PO SCH ×2 (08:00→21:00)
[2016-08-14 08:24] LABS: BUN/CREATININE RATIO 19.2 (10-20); CALCIUM 8.3 mg/dl (8.5-10.1); CREATININE 0.71 mg/dl (0.60-1.20); POTASSIUM 3.5 mmol/L (3.5-5.1)
[2016-08-14 08:27] LABS: MAGNESIUM 2.4 mg/dl (1.8-2.4)
[2016-08-14] MEDS: INSULIN ASPART 100 UNITS/ML 3 ML PEN SC SCH ×4 (09:55→21:02)
[2016-08-14] MEDS: LEVOFLOXACIN 500 MG TAB PO SCH (12:00)
[2016-08-14] MEDS ORDERED: LACTULOSE SYRUP 30 GM/45 ML UDP PO ONE (17:24)
--- NOTE | 2016-08-14 17:28 | Hospitalist Progress Note ---
Hospitalist Progress Note Date of Service Aug 14, 2016. Subjective Pt evaluation today including: conversation w/ patient, physical exam, lab review, conversation w/ library consultant (banquet supervisor), review of inpatient medication list PO Intake: dann po Pt did fine with Elavil but says she still "has pain" despite looking perfectly comfortable. I asked if she could taper down on the ativan and she said she needs it for when she accidentally eats butter or margerine and gets itchy all over and then gets panic attacks. I reminded her that ativan isn't for itching and then she agreed to taper down. No beds available for her at her inpt rehab and she says if I send her home she will start drinking again and come right back here. She walked with PT today and did well, POx 96% on room air All Other Systems: Reviewed and Negative Objective Vital Signs Date Time Temp Pulse Resp B/P Pulse Ox O2 Delivery O2 Flow Rate FiO2 08/14/16 15:16 57 20 96 Room Air 08/14/16 15:09 37.0 60 18 156/96 96 Room Air 08/14/16 11:38 70 20 96 Room Air 08/14/16 08:00 95 Nasal Cannula 2.0 08/14/16 07:37 36.7 53 20 182/96 91 Room Air 08/14/16 07:04 75 20 97 Room Air 08/14/16 00:00 95 Nasal Cannula 2.0 08/14/16 00:00 36.9 92 20 154/89 95 Room Air 08/13/16 19:29 77 20 96 Room Air Physical Exam General Appearance: no apparent distress, + obese (morbidly) Eyes: normal inspection ENT: hearing grossly normal Respiratory/Chest: normal breath sounds (no more wheezing), no respiratory distress, no accessory muscle use Cardiovascular: regular rate, rhythm, no edema, no murmur Abdomen: normal bowel sounds, non tender, soft Extremities: no calf tenderness Neurologic/Psychiatric: alert, + pertinent finding (anxious) Skin: normal color, warm/dry, no rash Laboratory Results Last 24 Hours Test 08/13/16 20:26 08/14/16 07:08 08/14/16 08:10 08/14/16 11:24 Bedside Glucose 233 mg/dl 164 mg/dl 184 mg/dl White Blood Count 11.09 K/uL Red Blood Count 3.76 M/uL Hemoglobin 11.6 g/dL Hematocrit 34.6 % Mean Corpuscular Volume 92.0 fL Mean Corpuscular Hemoglobin 30.9 pg Mean Corpuscular Hemoglobin Concent 33.5 g/dl RDW Standard Deviation 50.8 fL RDW Coefficient of Variation 15.0 % Platelet Count 227 K/uL Mean Platelet Volume 10.5 fL Sodium Level 138 mmol/L Potassium Level 3.5 mmol/L Chloride Level 101 mmol/L Carbon Dioxide Level 29 mmol/L Anion Gap 8.0 mmol/L Blood Urea Nitrogen 14 mg/dl Creatinine 0.71 mg/dl Est Creatinine Clear Calc Drug Dose 129.4 ml/min Estimated GFR () 114.3 Estimated GFR (Non- 98.6 BUN/Creatinine Ratio 19.2 Random Glucose 158 mg/dl Calcium Level 8.3 mg/dl Magnesium Level 2.4 mg/dl Total Bilirubin 0.3 mg/dl Direct Bilirubin 0.1 mg/dl Aspartate Amino Transf (AST/SGOT) 11 U/L Alanine Aminotransferase (ALT/SGPT) 26 U/L Alkaline Phosphatase 105 U/L Total Protein 6.5 gm/dl Albumin 2.8 gm/dl Assessment and Plan 50 F with elevated troponin, recent cocaine use, EtOH abuse, and now acute on chronic respiratory insufficiency from AECOPD. Chest pain x3 days with a chronically elevated troponin I level stable x 4 at 0.2 and nonspecific EKG changes. PA-fib (in NSR on admission), HTN ECHO: * Left ventricular systolic function is low normal. * No regional wall motion abnormalities noted. * Ejection Fraction = 50-55%. * There is mild tricuspid regurgitation -continue Aspirin, apixiban, metoprolol, echo with preserved EF and no RWMA -Cardiology says no further eval needed as CP most likely secondary to cocaine use -continue ASA, losartan, lasix, metoprolol, diltiazem, KCl Acute on chronic respiratory insufficiency, AECOPD. H/o ELIZABETH-noncompliance with CPAP. Improved, wheezing resolved and not requiring O2 -continue Levaquin which began 08/10 x 7 day course, adding steroids and formoterol 08/11 to scheduled nebs -place back on home Breo Ellipta upon discharge -taper steroids down with po prednisone -counseled on smoking cessation Type 2 diabetes mellitus. lantus being titrated by Pharmacy, typically takes aspartate with meals 8 U will use ssi here -increase Lantus for hyperglycemia from steroids -increase SSI Polysubstance abuse with a desire to go to inpatient Rehabilitation Facility. No beds available at first 2 choices, needs other choices -d/c there when AECOPD improves -ativan prn for EtOH withdrawal and taper down to q12 prn today, d/c'd IV ativan as is taking ATC -Concern about going to rehab on chronic opioids for pain-is Rxd by Pain Management and paranoid that her PM MD will find out she is going to rehab--> states she is only going ot rehab for EtOH, not drugs. -stopped hydrocodone here as I will not be Rx it for her to go to rehab -start Elavil as replacement for pain med as she declines all other non-opioid pain meds--> increase to 50mg qhs today Anxiety/Schizoaffective disorder -continue effexor and HS trazadone, benadryl -on Invega as outpt -Psychiatry following and recommending restarting Abilify but she declines Proph-Eliquis PPI
[2016-08-14] MEDS: TRAZODONE HCL 100 MG TAB PO SCH (20:59)
[2016-08-14] MEDS ORDERED: LACTULOSE SYRUP 30 GM/45 ML UDP PO PRN (21:00)
[2016-08-14] MEDS: INSULIN GLARGINE SOLOSTAR 100 UNITS/ML 3 ML PEN SQ SCH (21:03)
[2016-08-14] MEDS: AMITRIPTYLINE HCL 25 MG TAB PO SCH (21:04)
[2016-08-15] VITALS (10 sets, daily range): BP systolic 131–139; BP diastolic 66–76; PULSE 53–74; TEMP 36.6–36.7; O2SAT 95–98
[2016-08-15] MEDS: LORAZEPAM 1 MG TAB PO PRN ×2 (01:41→14:00)
[2016-08-15] MEDS: FORMOTEROL FUMA NEBULIZER SOLN 20 MCG/2 ML VIAL INH SCH ×2 (07:11→20:56)
[2016-08-15] MEDS: ALBUT/IPRATROP 3MG/0.5MG NEB 3 ML VIAL INH SCH ×4 (07:11→20:15)
[2016-08-15] MEDS: FUROSEMIDE 40 MG TAB PO SCH (09:03)
[2016-08-15] MEDS: DILTIAZEM HCL 300 MG CAPCR PO SCH (09:03)
[2016-08-15] MEDS: VENLAFAXINE HCL XR 75 MG CAPXR PO SCH (09:04)
[2016-08-15] MEDS: LOSARTAN POTASSIUM 50 MG TAB PO SCH (09:04)
[2016-08-15] MEDS: APIXABAN 2.5 MG TAB PO SCH ×2 (09:04→21:42)
[2016-08-15] MEDS: PANTOprazole SOD 40 MG TAB PO SCH (09:04)
[2016-08-15] MEDS: RANITIDINE HCL 150 MG TAB PO SCH ×2 (09:05→21:43)
[2016-08-15] MEDS: METOPROLOL SUCC 50MG EXT REL TAB PO SCH ×2 (09:05→21:43)
[2016-08-15] MEDS: ASPIRIN 81 MG ECTAB PO SCH (09:05)
[2016-08-15] MEDS: POTASSIUM CHLORIDE 20 MEQ TABCR PO SCH (09:06)
[2016-08-15] MEDS: INSULIN ASPART 100 UNITS/ML 3 ML PEN SC SCH ×4 (09:09→21:51)
[2016-08-15] MEDS: LEVOFLOXACIN 500 MG TAB PO SCH (12:31)
--- NOTE | 2016-08-15 16:48 | Hospitalist Progress Note ---
Hospitalist Progress Note Date of Service Aug 15, 2016. Subjective Pt evaluation today including: conversation w/ patient, physical exam, chart review, lab review, review of studies Pt having increasing pain in her lower back going down her legs since being off hydrocodone x 2 days. Thinks maybe the Elavil is helping a little bit. having trouble getting her placement at inpatient EtOH rehab. Constitutional: No fever Respiratory: No shortness of breath Cardiovascular: No chest pain Objective Vital Signs Date Time Temp Pulse Resp B/P Pulse Ox O2 Delivery O2 Flow Rate FiO2 08/15/16 15:37 36.7 55 20 131/66 96 Room Air 08/15/16 15:27 63 20 97 Room Air 08/15/16 14:01 95 Room Air 08/15/16 11:00 72 20 96 Room Air 08/15/16 07:25 36.7 60 20 139/76 96 08/15/16 07:11 53 20 98 Room Air 08/15/16 00:00 95 Nasal Cannula 2.0 08/14/16 22:47 37.2 58 14 144/83 96 Room Air 08/14/16 21:18 62 143/82 08/14/16 19:20 68 20 96 Room Air Physical Exam General Appearance: no apparent distress, + obese Eyes: normal inspection, sclerae normal Respiratory/Chest: no respiratory distress, no accessory muscle use, + wheezing (a few faint exp wheezes but moving air better) Cardiovascular: regular rate, rhythm, no edema, no murmur Abdomen: normal bowel sounds, non tender, soft (and morbidly obese) Extremities: normal inspection, no pedal edema, no calf tenderness Neurologic/Psychiatric: alert, oriented x 3, + pertinent finding (flat affect, no eye contact) Skin: normal color, warm/dry, no rash Laboratory Results Last 24 Hours Test 08/14/16 20:40 08/15/16 06:52 08/15/16 11:21 08/15/16 16:21 Bedside Glucose 256 mg/dl 93 mg/dl 212 mg/dl 324 mg/dl Assessment and Plan 50 F with elevated troponin, recent cocaine use, EtOH abuse, and now acute on chronic respiratory insufficiency from AECOPD. Chest pain x3 days with a chronically elevated troponin I level stable x 4 at 0.2 and nonspecific EKG changes. PA-fib (in NSR on admission), HTN ECHO: * Left ventricular systolic function is low normal. * No regional wall motion abnormalities noted. * Ejection Fraction = 50-55%. * There is mild tricuspid regurgitation -continue Aspirin, apixiban, metoprolol, echo with preserved EF and no RWMA -Cardiology says no further eval needed as CP most likely secondary to cocaine use -continue ASA, losartan, lasix, metoprolol, diltiazem, KCl -counseled on abstinence from cocaine and all illicit drugs Acute on chronic respiratory insufficiency, AECOPD. H/o ELIZABETH-noncompliance with CPAP. Improved, wheezing resolved and not requiring O2 -continue Levaquin which began 08/10 x 7 day course, adding steroids and formoterol 08/11 to scheduled nebs -place back on home Breo Ellipta upon discharge -taper steroids down with po prednisone to 40mg for tomorrow -counseled on smoking cessation Type 2 diabetes mellitus. -increase Lantus for hyperglycemia from steroids -increase SSI today Polysubstance abuse with a desire to go to inpatient Rehabilitation Facility. No beds available at first 2 choices, needs other choices-CM working on placement -d/c there when AECOPD improves -ativan prn for EtOH withdrawal and taper down to q12 prn, d/c'd IV ativan as is taking ATC -Concern about going to rehab on chronic opioids for pain-is Rxd by Pain Management and paranoid that her PM MD will find out she is going to rehab--> states she is only going ot rehab for EtOH, not drugs. -stopped hydrocodone here as I will not be Rx it for her to go to rehab, but with worsening pain--> add back on as a prn bid -start Elavil as replacement for pain med as she declines all other non-opioid pain meds--> increase to 50mg qhs Anxiety/Schizoaffective disorder -continue effexor and HS trazadone, benadryl -on Invega as outpt -Psychiatry following and recommending restarting Abilify but she declines Proph-Eliquis PPI
[2016-08-15] MEDS ORDERED: INSULIN ASPART 100 UNITS/ML 3 ML PEN SC ONE (17:00)
[2016-08-15] MEDS: HYDROCODONE/ACETAMI 10/325 TAB PO PRN (17:48)
[2016-08-15] MEDS ORDERED: LORAZEPAM 1 MG TAB PO PRN (18:00)
[2016-08-15] MEDS: TRAZODONE HCL 100 MG TAB PO SCH (21:42)
[2016-08-15] MEDS: AMITRIPTYLINE HCL 25 MG TAB PO SCH (21:42)
[2016-08-15] MEDS: INSULIN GLARGINE SOLOSTAR 100 UNITS/ML 3 ML PEN SQ SCH (21:52)
[2016-08-16] VITALS (10 sets, daily range): BP systolic 124–146; BP diastolic 60–80; PULSE 56–68; TEMP 36.5–36.9; O2SAT 91–97; Ht 167.6 cm; Wt 129.7 kg
[2016-08-16] MEDS: LORAZEPAM 1 MG TAB PO PRN ×2 (02:10→13:38)
[2016-08-16] MEDS: HYDROCODONE/ACETAMI 10/325 TAB PO PRN ×3 (02:10→21:59)
[2016-08-16] MEDS: FORMOTEROL FUMA NEBULIZER SOLN 20 MCG/2 ML VIAL INH SCH ×2 (07:05→19:39)
[2016-08-16 07:45] LABS: BASO % 0.2 %; BASO ABS # 0.02 K/uL (0-0.2); COMPLETE YES; EOS % 1.4 %; HEMATOCRIT 38.2 % (37-47); IG% 0.9 %; LYMPH % 32.8 %; LYMPH ABS # 3.88 K/uL (1.2-3.4); MEAN CELL VOLUME 92.3 fL (80-100); MEAN CORPUSCULAR HEMOGLOBIN 30.7 pg (25-34); MEAN CORPUSCULAR HGB CONC 33.2 g/dl (32-36); MEAN PLATELET VOLUME 10.4 fL (7.4-10.4); MONO % 6.8 %; NEUT % 57.9 %; PLATELET COUNT 247 K/uL (130-400); RED BLOOD COUNT 4.14 M/uL (4.2-5.4); WHITE BLOOD COUNT 11.82 K/uL (4.8-10.8)
[2016-08-16] MEDS: ALBUT/IPRATROP 3MG/0.5MG NEB 3 ML VIAL INH SCH ×5 (08:00→19:39)
[2016-08-16 08:19] LABS: BUN/CREATININE RATIO 19.1 (10-20); CALCIUM 8.9 mg/dl (8.5-10.1); CREATININE 0.81 mg/dl (0.60-1.20); MAGNESIUM 2.4 mg/dl (1.8-2.4); POTASSIUM 3.8 mmol/L (3.5-5.1)
[2016-08-16] MEDS: APIXABAN 2.5 MG TAB PO SCH ×2 (09:08→21:41)
[2016-08-16] MEDS: FUROSEMIDE 40 MG TAB PO SCH (09:08)
[2016-08-16] MEDS: ASPIRIN 81 MG ECTAB PO SCH (09:08)
[2016-08-16] MEDS: LOSARTAN POTASSIUM 50 MG TAB PO SCH (09:08)
[2016-08-16] MEDS: RANITIDINE HCL 150 MG TAB PO SCH ×2 (09:09→21:39)
[2016-08-16] MEDS: PANTOprazole SOD 40 MG TAB PO SCH (09:09)
[2016-08-16] MEDS: POTASSIUM CHLORIDE 20 MEQ TABCR PO SCH (09:09)
[2016-08-16] MEDS: VENLAFAXINE HCL XR 75 MG CAPXR PO SCH (09:09)
[2016-08-16] MEDS: DILTIAZEM HCL 300 MG CAPCR PO SCH (09:09)
[2016-08-16] MEDS: METOPROLOL SUCC 50MG EXT REL TAB PO SCH ×2 (09:10→21:39)
[2016-08-16] MEDS: INSULIN ASPART 100 UNITS/ML 3 ML PEN SC SCH ×4 (09:17→22:01)
--- NOTE | 2016-08-16 11:41 | Psychiatric Progress Notes ---
Psychiatric Progress Note Date of Service Aug 16, 2016. Notes ID: Patient reviewed with liaison nurse. Interim progress reviewed. CC: "I'm hanging in, thanks for checking" HPI: patient aware narcotics tapered due to desire to go to rehab, seemed unaware that started TCA ROS: denies aud abdi, thought she saw floater or smoke in peripheral vision but no true visual abdi MSE: alert, more cooperative this contact, still prefers to keep eyes closed, thoughts concrete but reality based, no SI/HI Imp: schizoaffective Plan: no indication for inpatient psych admit, remains psychiatrically stable for discharge to rehab combo of TCA and Effexor XR likely fine since low doses of both patient hasn't wanted to resume mood stabilizer at this time
[2016-08-16] MEDS: LEVOFLOXACIN 500 MG TAB PO SCH (12:01)
[2016-08-16] MEDS ORDERED: CHLORDIAZEPOXIDE 25 MG CAP PO ONE (17:27)
[2016-08-16] MEDS ORDERED: MAGNESIUM CITRATE 296 ML/BTL PO ONE (17:30)
[2016-08-16] MEDS ORDERED: CHLORDIAZEPOXIDE 25 MG CAP PO PRN (17:30)
--- NOTE | 2016-08-16 17:35 | Hospitalist Progress Note ---
Hospitalist Progress Note Date of Service Aug 16, 2016. Subjective Pt evaluation today including: conversation w/ patient, physical exam, chart review, review of inpatient medication list No inpatient rehabs available for her today as per CM working on it all day. Only option now is IOP program but can't be arranged till Friday. Pt agreeable to going home in the morning. Wants Mag citrate for constipation and wants her hydrocodone increased to tid like she takes it at home. I advised stopping ativan and she says she really needs it but we agreed to trial Librium for as needed for EtOH withdrawal/anxiety Respiratory: No shortness of breath Cardiovascular: No chest pain All Other Systems: Reviewed and Negative Objective Vital Signs Date Time Temp Pulse Resp B/P Pulse Ox O2 Delivery O2 Flow Rate FiO2 08/16/16 16:06 Room Air 08/16/16 16:02 68 16 95 Room Air 08/16/16 15:15 36.5 59 20 124/76 93 08/16/16 11:41 64 16 95 Room Air 08/16/16 08:20 62 08/16/16 08:13 36.9 59 20 146/80 94 08/16/16 08:00 Room Air 08/16/16 07:05 68 16 96 Room Air 08/16/16 00:20 96 Room Air 08/15/16 23:06 36.6 56 18 133/66 96 Nasal Cannula 2.0 08/15/16 20:15 74 16 97 Room Air Physical Exam General Appearance: WD/WN, no apparent distress, + obese Eyes: normal inspection, sclerae normal Respiratory/Chest: no respiratory distress, no accessory muscle use, + wheezing (faint occasional exp wheezes) Cardiovascular: regular rate, rhythm, no edema, no murmur Abdomen: normal bowel sounds, non tender, soft (and obese) Extremities: no pedal edema, no calf tenderness Neurologic/Psychiatric: alert Skin: normal color, warm/dry Laboratory Results Last 24 Hours Test 08/15/16 20:15 08/16/16 07:09 08/16/16 07:20 08/16/16 11:34 Bedside Glucose 194 mg/dl 147 mg/dl 232 mg/dl White Blood Count 11.82 K/uL Red Blood Count 4.14 M/uL Hemoglobin 12.7 g/dL Hematocrit 38.2 % Mean Corpuscular Volume 92.3 fL Mean Corpuscular Hemoglobin 30.7 pg Mean Corpuscular Hemoglobin Concent 33.2 g/dl Platelet Count 247 K/uL Mean Platelet Volume 10.4 fL Neutrophils (%) (Auto) 57.9 % Lymphocytes (%) (Auto) 32.8 % Monocytes (%) (Auto) 6.8 % Eosinophils (%) (Auto) 1.4 % Basophils (%) (Auto) 0.2 % Neutrophils # (Auto) 6.84 K/uL Lymphocytes # (Auto) 3.88 K/uL Monocytes # (Auto) 0.80 K/uL Eosinophils # (Auto) 0.17 K/uL Basophils # (Auto) 0.02 K/uL RDW Standard Deviation 50.1 fL RDW Coefficient of Variation 14.8 % Immature Granulocyte % (Auto) 0.9 % Immature Granulocyte # (Auto) 0.11 K/uL Sodium Level 137 mmol/L Potassium Level 3.8 mmol/L Chloride Level 101 mmol/L Carbon Dioxide Level 26 mmol/L Anion Gap 10.0 mmol/L Blood Urea Nitrogen 16 mg/dl Creatinine 0.81 mg/dl Est Creatinine Clear Calc Drug Dose 113.4 ml/min Estimated GFR () 97.5 Estimated GFR (Non- 84.1 BUN/Creatinine Ratio 19.1 Random Glucose 158 mg/dl Calcium Level 8.9 mg/dl Magnesium Level 2.4 mg/dl Test 08/16/16 16:28 Bedside Glucose 293 mg/dl Assessment and Plan 50 F with elevated troponin, recent cocaine use, EtOH abuse, and now acute on chronic respiratory insufficiency from AECOPD, here for detox and medical clearance for EtOH rehab placement Chest pain x3 days with a chronically elevated troponin I level stable x 4 at 0.2 and nonspecific EKG changes. PA-fib (in NSR on admission), HTN ECHO: * Left ventricular systolic function is low normal. * No regional wall motion abnormalities noted. * Ejection Fraction = 50-55%. * There is mild tricuspid regurgitation -continue Aspirin, apixiban, metoprolol, echo with preserved EF and no RWMA -Cardiology says no further eval needed as CP most likely secondary to cocaine use -continue ASA, losartan, lasix, metoprolol, diltiazem, KCl -counseled on abstinence from cocaine and all illicit drugs Acute on chronic respiratory insufficiency, AECOPD. H/o ELIZABETH-noncompliance with CPAP. Improved, wheezing minimal and not requiring O2 except her nocturnal O2 for ELIZABETH (not on CPAP) -continue Levaquin which began 08/10 x 7 day course, adding steroids and formoterol 08/11 to scheduled nebs -place back on home [place] upon discharge -taper steroids down with po prednisone to 40mg currently -counseled on smoking cessation Type 2 diabetes mellitus. -increased Lantus for hyperglycemia from steroids -continue SSI today Polysubstance abuse with a desire to go to inpatient Rehabilitation Facility. No beds available at multiple options explored by CM due to pt's MH issues and need for nocturnal O2 for ELIZABETH -plan to dc to home in the AM and get set up with IOP on Friday -ativan prn for EtOH withdrawal and taper down to q12 prn, d/c'd IV ativan as is taking ATC--> today refrain from po Ativan and will give Rx for Librium prn upon dc -Concern about going to rehab on chronic opioids for pain-is Rxd by Pain Management and paranoid that her PM MD will find out she is going to rehab--> states she is only going ot rehab for EtOH, not drugs. -stopped hydrocodone here as I will not be Rx it for her to go to rehab, but with worsening pain--> add back on as a prn bid and now wants it tid like she takes at home as she will be going home anyway -start Elavil as replacement for pain med as she declines all other non-opioid pain meds--> increased to 50mg qhs Anxiety/Schizoaffective disorder -continue effexor and HS trazadone, benadryl -on Invega as outpt -Psychiatry following and recommending restarting Abilify but she declines Proph-Eliquis PPI
[2016-08-16] MEDS: AMITRIPTYLINE HCL 25 MG TAB PO SCH (21:38)
[2016-08-16] MEDS: TRAZODONE HCL 100 MG TAB PO SCH (21:40)
[2016-08-16] MEDS: INSULIN GLARGINE SOLOSTAR 100 UNITS/ML 3 ML PEN SQ SCH (22:01)
[2016-08-17] MEDS: HYDROCODONE/ACETAMI 10/325 TAB PO PRN ×2 (05:35→13:12)
[2016-08-17 07:16] VITALS: PULSE 51; O2SAT 98
[2016-08-17] MEDS: ALBUT/IPRATROP 3MG/0.5MG NEB 3 ML VIAL INH SCH ×2 (07:16→11:05)
[2016-08-17 07:46] VITALS: BP 168/71; PULSE 51; TEMP 36.6; O2SAT 98
[2016-08-17 08:15] VITALS: PULSE 54; O2SAT 97
[2016-08-17] MEDS: DILTIAZEM HCL 300 MG CAPCR PO SCH (08:15)
[2016-08-17] MEDS: METOPROLOL SUCC 50MG EXT REL TAB PO SCH (08:16)
[2016-08-17] MEDS: PANTOprazole SOD 40 MG TAB PO SCH (08:16)
[2016-08-17] MEDS: APIXABAN 2.5 MG TAB PO SCH (08:16)
[2016-08-17] MEDS: LOSARTAN POTASSIUM 50 MG TAB PO SCH (08:16)
[2016-08-17] MEDS: VENLAFAXINE HCL XR 75 MG CAPXR PO SCH (08:17)
[2016-08-17] MEDS: RANITIDINE HCL 150 MG TAB PO SCH (08:17)
[2016-08-17] MEDS: ASPIRIN 81 MG ECTAB PO SCH (08:17)
[2016-08-17] MEDS: POTASSIUM CHLORIDE 20 MEQ TABCR PO SCH (08:17)
[2016-08-17] MEDS: FUROSEMIDE 40 MG TAB PO SCH (08:18)
[2016-08-17] MEDS: INSULIN ASPART 100 UNITS/ML 3 ML PEN SC SCH ×2 (08:27→13:16)
[2016-08-17] MEDS: FORMOTEROL FUMA NEBULIZER SOLN 20 MCG/2 ML VIAL INH SCH ×2 (09:00→11:05)
[2016-08-17 11:05] VITALS: PULSE 51; O2SAT 98
[2016-08-17] MEDS ORDERED: LBR25 PO (12:18)
[2016-08-17] MEDS ORDERED: BND25X PO (12:18)
[2016-08-17] MEDS ORDERED: INSDGIPEN SQ (12:18)
[2016-08-17] MEDS ORDERED: ALBINS/ NEB (12:18)
[2016-08-17] MEDS ORDERED: PRD20 PO (12:18)
[2016-08-17] MEDS ORDERED: AMT25 PO (12:18)
--- NOTE | 2016-08-17 12:26 | Discharge Instructions ---
Discharge Instructions Admission Reason for Admission:Chest pain-cocaine induced, Alcohol detoxification Discharge Discharge Diagnosis / Problem: Chest pain-cocaine induced, Alcohol detoxification,Asthma exacerbation Discharge Goals Goal(s): Improve disease control, Therapeutic intervention Activity Recommendations Activity Limitations: resume your previous activity Lifting Limitations: none Exercise/Sports Limitations: as tolerated Shower/Bathe: no limitations Driving or Machine Use: no driving . Instructions / Follow-Up Instructions / Follow-Up You were admitted with chest pain and found to have an elevated troponin in your bloodwork that indicated mild strain on your heart. This was from using cocaine. You did not have a heart attack. The ultrasound of your heart was normal and the Napper Runner saw you and did not think you needed any further evaluation. You had an asthma exacerbation here which was treated with antibiotics and steroids. You are done with the antibiotics but should taper down on the prdnisone as directed. Your insulin dose was increased a bit for high sugars from the steroids. You were given ativan as needed for alcohol withdrawal and then this will be stopped. You will be given a prescription for Librium to take as needed for alcohol withdrawal symptoms. You were provided with your usual hydrocodone for pain while here but will NOT be given a new prescription for this. It must be prescribed to you by your Pain Management physician ONLY. As for your alcohol rehab program-you were not accepted at any inpatient facilities fo [facility] and so you should go to an intensive outpatient program. The [employer] Operator here and your own personal [employer] can help arrange this on Friday of next week. Current Hospital Diet Patient's current hospital diet: AHA Diet (Heart Healthy), Diabetes Type 2 Diet Discharge Diet Recommended Diet: AHA Diet (Heart Healthy), Diabetes Type 2 Diet Procedures Procedures Performed: ECHO Chest xray Pending Studies Studies pending at discharge: no Medical Emergencies . Who to Call and When: Medical Emergencies: If at any time you feel your situation is an emergency, please call 911 immediately. . Non-Emergent Contact Non-Emergency issues call your: Primary Care Provider Call Non-Emergent contact if: temperature is above 101, your pain is not controlled, your pain is worsening, your pain is unusual for you, your pain is concerning you, you have any medication questions if you have worsening shortness of breath . . "Provider Documentation" section prepared by Petty Arrington. VTE Core Measure Inpt VTE Proph given/why not?: Other Anticoagulation (Apixiban) [place] Drug Monitoring Program Search Results: patient reviewed within database
[2016-08-17] MEDS ORDERED: SOD PHOSPHATE/SOD BIPHOSPHATE ENEMA 132 ML BTL PR STA (12:41)
[2016-08-17 13:23] VITALS: BP 168/71; PULSE 51; TEMP 36.6; O2SAT 98
--- NOTE | 2016-08-19 10:10 | Discharge Summary ---
Discharge Summary Admission Date: Aug 10, 2016 at 03:45 Discharge Date: Aug 17, 2016 Discharge Disposition: Home Principal Diagnosis: Alcohol dependence, Cocaine-induced chest pain Problems/Secondary Diagnoses: Elevated troponin/Demand ischemia Cocaine abuse EtOH abuse Acute on chronic respiratory insufficiency AECOPD PA-fib HTN Mild tricuspid regurgitation Anxiety disorder Schizoaffective disorder ELIZABETH intermediate anticoagulation Type 2 diabetes mellitus Chronic pain syndrome Opioid dependence Morbid obesity Immunizations: Have You Had Influenza Vaccine: Yes Influenza Vaccine Date: Apr 23, 2012 History of Tetanus Vaccine?: Unknown History of Pneumococcal: Yes Pneumococcal Date: Mar 12, 2011 History of Hepatitis B Vaccine: had one shot of the series Procedures: SINGLE VIEW CHEST CLINICAL HISTORY: Dyspnea. FINDINGS: An AP, portable, upright chest radiograph is compared to study dated 07/18/2016. The examination is significantly degraded by portable technique, large body habitus, and patient rotation. The cardiac silhouette is top normal for projection. The mediastinal contour is within normal limits. The lungs and pleural spaces are clear. No pneumothorax is seen. The bony thorax is grossly intact. IMPRESSION: No acute cardiopulmonary abnormality. ECHO: * Left ventricular systolic function is low normal. * No regional wall motion abnormalities noted. * Ejection Fraction = 50-55%. * There is mild tricuspid regurgitation Consultations: Cardiology Psychiatry Medication Reconciliation New Medications: Amitriptyline HCl (Amitriptyline HCl) 25 Mg Tab 50 MG PO HS for 30 Days, #60 TAB Chlordiazepoxide (Chlordiazepoxide HCl) 25 Mg Cap 25 MG PO DAILY PRN for alcohol withdrawal/anxiety for 10 Days, #10 CAP 0 Refills Diphenhydramine HCl (Diphenhydramine HCl) 25 Mg Cap 25 MG PO Q4H PRN for itching, #30 CAP Prednisone (Prednisone) 20 Mg Tab 40 MG PO DAILY, #7 TAB x 1 day then 20mg daily x 3 days then 10mg daily x 3 days then stop Changed Medications: Insulin Glargine (Lantus Solostar) 100 Unit/Ml Inj 40 UNITS SQ HS for 30 Days (Changed from: 38 UNITS; Removed Quantity) Continued Medications: Albuterol (Ventolin) Inh 2 PUFFS INH QID PRN for Shortness of Breath, INHALER Albuterol Sulf (Proventil 0.083% 2.5MG/3ML) 2.5 Mg/3 Ml Nebu 1 VIAL NEB Q4-6HRS PRN for Wheezing, #30 VIAL (This prescription has been renewed) Apixaban (Eliquis) 5 Mg Tab 5 MG PO BID Aspirin (Aspirin EC Low Dose) 81 Mg Ectab 81 MG PO QAM Diltiazem Hcl Coated Beads (Diltiazem Hcl Er) 300 Mg Cap 300 MG PO QAM Fluticasone Furoate-Vilanterol (Breo Ellipta) 1 Inh Inh 1 PUFF INH BID Furosemide (Furosemide) 40 Mg Tab 40 MG PO QAM Guaifenesin (Mucinex Maximum Strength) 1,200 Mg Tab 1 TAB PO BID PRN for PRN for 15 Days, #30 TAB Hydrocodone/Acetaminophen ([place] 10/325 Tab) 1 Tab Tab 1 TAB PO TID PRN for Pain, TAB Insulin Aspart (Novolog Flexpen) 100 Units/Ml Inj 8 UNITS SQ TIDM INJECT 8 UNITS SQ PRIOR TO MEALS, IF ABOVE 185 PT SAID INJECTING 8 UNITS TID, IF OVER 200 INJECT 2 ADDTIONAL UNITS Lactulose (Constulose) 10 Gm/15 Ml Priti 45 ML PO DAILY PRN for Constipation Losartan Potassium (Losartan Potassium) 50 Mg Tab 50 MG PO DAILY Metoprolol Succinate (Metoprolol Succinate ER) 100 Mg Tabcr 100 MG PO BID Omeprazole (Prilosec) 20 Mg Cap 20 MG PO QAM Paliperidone Palmitate (Invega Sustenna) Unknown Strength Inj 1 DOSE IM MONTHLY for 30 Days, #1 SYR 5 Refills Potassium Chloride Microencaps (Potassium Chloride Er) 20 Meq Tab 20 MEQ PO DAILY, #30 Ranitidine HCl (Ranitidine HCl) 150 Mg Tab 150 MG PO BID Trazodone HCl (Trazodone HCl) 150 Mg Tab 1 TAB PO HS, #15 TAB Valacyclovir HCl (Valacyclovir HCl) 500 Mg Tab 500 MG PO QAM Venlafaxine Hcl (Effexor Extended Rel) 75 Mg Capcr 75 MG PO DAILY, #30 Discontinued Medications: Ipratropium-Albuterol (Duoneb) 3 Ml Nebu 1 TREATMENT INH QID PRN for SOB/Wheezing, INHA Referrals At Discharge Follow up Referrals: Physician Referral - Within 1 Week with Alonso Zuluaga M.D. Discharge Exam Pt feeling well on day of discharge. Is planning on attending IOP as no inpatient rehab facilities will accept her either due to her chronic medical issues or lack of available beds. Is eating well, no N/V, no SOB, no CP. has chronic pain in lower back and legs. C/o anxiety. Requesting Rxs for her opioids and benzos on discharge--> advised would not be giving her these as they should come from pain management Review of Systems: Constitutional: No chills, No fever Eyes: No problem reported ENT: No problem reported Respiratory: + wheezing Cardiovascular: No chest pain Abdomen: + constipation (but did have a BM the day of discharge), No nausea , No pain, No vomiting Musculoskeletal: + joint pain (and lower back pain) Genitourinary - Female: No problem reported Neurologic: No problem reported Psychiatric: + anxiety, + substance abuse Endocrine: No problem reported Hematologic / Lymphatic: No problem reported Integumentary: No problem reported Physical Exam: General Appearance: no apparent distress, + obese Eyes: normal inspection, EOMI, sclerae normal ENT: hearing grossly normal, pharynx normal Neck: trachea midline Respiratory/Chest: no respiratory distress, no accessory muscle use, + wheezing (a few scattered exp wheezes, much improved from previous) Cardiovascular: regular rate, rhythm, no edema, no gallop, no murmur, normal peripheral pulses Abdomen / GI: normal bowel sounds, non tender, soft (and morbidly obese) Extremities: normal inspection, no calf tenderness, normal range of motion Neurologic/Psychiatric: alert, oriented x 3, + depressed affect (and flat affect, minimal eye contact) Skin: normal color, warm/dry, no rash Hospital Course 50 F with elevated troponin, recent cocaine use, EtOH abuse, and now acute on chronic respiratory insufficiency from AECOPD, here for detox and medical clearance for EtOH rehab placement Chest pain x3 days with a chronically elevated troponin I level stable x 4 at 0.2 and nonspecific EKG changes. PA-fib (in NSR on admission), HTN ECHO: * Left ventricular systolic function is low normal. * No regional wall motion abnormalities noted. * Ejection Fraction = 50-55%. * There is mild tricuspid regurgitation -continue Aspirin, apixiban, metoprolol, echo with preserved EF and no RWMA -Cardiology says no further eval needed as CP most likely secondary to cocaine use -continue ASA, losartan, lasix, metoprolol, diltiazem, KCl -counseled on abstinence from cocaine and all illicit drugs Acute on chronic respiratory insufficiency, AECOPD. H/o ELIZABETH-noncompliance with CPAP. Improved, wheezing minimal and not requiring O2 except her nocturnal O2 for ELIZABETH (not on CPAP) -completed Levaquin x 7 day course, -steroids and formoterol nebs -place back on home Breo Ellipta upon discharge -taper steroids down with po prednisone over the next week after discharge -counseled on smoking cessation Type 2 diabetes mellitus. -increased Lantus for hyperglycemia from steroids -Novolog with meals and qhs Polysubstance abuse with a desire to go to inpatient Rehabilitation Facility. No beds available at multiple options explored by CM due to pt's MH issues and need for nocturnal O2 for ELIZABETH -plan to dc to home in the AM and get set up with IOP on Friday-spoke with CM here who will pass along message for Friday to CM to arrange as discussed on Friday -ativan prn for EtOH withdrawal and taper down to q12 prn, d/c'd IV ativan as is taking ATC--> refrain from po Ativan and will give Rx for Librium prn upon dc -Concern about going to rehab on chronic opioids for pain-is Rxd by Pain Management and paranoid that her PM MD will find out she is going to rehab--> states she is only going to rehab for EtOH, not drugs. -stopped hydrocodone here as I will not be Rx it for her to go to rehab, but with worsening pain--> add back on as a prn bid and now wants it tid like she takes at home as she will be going home anyway---> she will f/u with outpatient Pain Management for refills -start Elavil as replacement for pain med as she declines all other non-opioid pain meds--> increased to 50mg qhs before discharge Anxiety/Schizoaffective disorder -continue effexor and HS trazadone, benadryl -on Invega as outpt -Psychiatry following and recommending restarting Abilify but she declines -f/u with Psychaitry as outpt Proph-Eliquis PPI Dispo-to home Total Time Spent: Greater than 30 minutes This includes examination of the patient, discharge planning, medication reconciliation, and communication with other providers. Discharge Instructions Please refer to the electronic Patient Visit Report (Discharge Instructions) for additional information. Follow-Up IOP Rehab program on Friday PCP within 1 week psychiatry within 1 week Additional Copies To Alonso Zuluaga M.D.
--- NOTE | 2016-08-19 16:06 | EDITING REQUIRED CODING QUERY ---
CODING QUERY Dear Dr. Arrington, To promote full compliance with coding requirements relating to patient care, provider participation is requested in all cases of ramp boss uncertainty. Please assist us with the question(s) below: In responding to this query, please exercise your independent professional judgement. The fact that a question is asked does not imply that any particular answer is desired or expected. We appreciate your clarification on this issue. NSTEMI was documented on the H and P but not on the Discharge Summary. Please clarify below. Coding Question(s): Please clarify NSTEMI ( ) NSTEMI (x ) NSTEMI was ruled out ( ) Other: Please explain Medical documentation H and P Impression Assessment and Plan NSTEMI/troponin is elevated 0.245--the patient reports she had severe chest pain a few days ago and thought she had an [place] that time, and this would coincide with her last cocaine use. She'll be admitted to the telemetry unit, for serial cardiac enzymes, cardiac rhythm monitoring and a 2-D echocardiogram with Dopplers. We'll continue a PICC Sabean 5 mg by mouth twice a day, enteric-coated aspirin 81 mg by mouth every morning, diltiazem extended release 3 mg by mouth every morning, furosemide 40 mg by mouth every morning, losartan potassium 50 mg by mouth daily, Toprol succinate ER 100 mg by mouth twice a day, and potassium chloride ER 20 mEq by mouth daily. Physician's Response(s): Thank you for your time, Johana Wilkerson [facility] Principal Diagnosis: "_that condition established after study, to be chiefly responsible for occasioning the admission of the patient to the hospital for care." Co-Existing Principal Diagnosis: "_when two or more diagnoses equally meet the criteria for principal diagnosis as determined by the circumstances of admission, diagnostic work up, and/or therapy provided, and the Alphabetic Index, Tabular List, or another coding guideline does not provide sequencing direction, any one of the diagnoses may be sequenced first." "When the physician has documented what appears to be a current diagnosis in the body of the record, but has not included the diagnosis in the final diagnostic statement, the physician should be asked whether the diagnosis should be added." (Source Coding Clinic 2 QTR90. p3-4)
[2016-08-31] MEDS ORDERED: APIX1TAB3 PO (21:22)
[2016-11-13] MEDS ORDERED: LACT10SO17 PO (15:15)
[2016-11-13] MEDS ORDERED: INSDGI SC (15:15)
[2016-12-07] MEDS ORDERED: AZIT250T5 PO (14:09)
[2016-12-10] MEDS ORDERED: IPRASOL4 INH (10:16)
[2016-12-10] MEDS ORDERED: HYDR-4383 PO (10:16)
[2016-12-10] MEDS ORDERED: TRL2 PO (10:16)
[2016-12-10] MEDS ORDERED: INSDGI SC (10:16)
[2016-12-10] MEDS ORDERED: PRED10TA PO (10:16)
[2016-12-12] MEDS ORDERED: PERP1TAB11 PO (12:59)
== END 2016-08-17 14:00 | disposition home or self-care (01) | DRG 896 ==
LOC: ENRESERVTM → ENRESERVDT → C.EDB 00:09 → EEVIPCON 03:45 → C.2T 03:45 → C.MS2W 08-11 14:49
PROVIDERS: ADMIT Hospitalist; ATTEND Family Medicine
DX: F10.239 Alcohol dependence with withdrawal, unspecified (principal); J96.20 Acute and chronic respiratory failure, unspecified whether with hypoxia or hypercapnia; F11.20 Opioid dependence, uncomplicated; J44.0 Chronic obstructive pulmonary disease with (acute) lower respiratory infection; I24.8 Other forms of acute ischemic heart disease; J44.1 Chronic obstructive pulmonary disease with (acute) exacerbation; Z68.42 Body mass index [BMI] 45.0-49.9, adult; F19.20 Other psychoactive substance dependence, uncomplicated; F14.188 Cocaine abuse with other cocaine-induced disorder; I48.0 Paroxysmal atrial fibrillation; I48.2 Chronic atrial fibrillation; F17.210 Nicotine dependence, cigarettes, uncomplicated; E11.65 Type 2 diabetes mellitus with hyperglycemia; K21.9 Gastro-esophageal reflux disease without esophagitis; J40 Bronchitis, not specified as acute or chronic; F41.9 Anxiety disorder, unspecified; G47.33 Obstructive sleep apnea (adult) (pediatric); F25.9 Schizoaffective disorder, unspecified; E66.01 Morbid (severe) obesity due to excess calories; G89.4 Chronic pain syndrome; F12.20 Cannabis dependence, uncomplicated; M54.9 Dorsalgia, unspecified; M79.606 Pain in leg, unspecified; I07.1 Rheumatic tricuspid insufficiency; I10 Essential (primary) hypertension; R79.89 Other specified abnormal findings of blood chemistry; R07.89 Other chest pain; T38.0X5A Adverse effect of glucocorticoids and synthetic analogues, initial encounter; F60.9 Personality disorder, unspecified; K76.0 Fatty (change of) liver, not elsewhere classified; G57.00 Lesion of sciatic nerve, unspecified lower limb; R00.2 Palpitations; G62.9 Polyneuropathy, unspecified; Z79.4 Long term (current) use of insulin; Z79.01 Long term (current) use of anticoagulants; Z95.1 Presence of aortocoronary bypass graft; Z79.82 Long term (current) use of aspirin; Z91.19 Patient's noncompliance with other medical treatment and regimen; Z86.79 Personal history of other diseases of the circulatory system; Z79.51 Long term (current) use of inhaled steroids; Z79.899 Other long term (current) drug therapy

== ENCOUNTER 2016-08-23 14:01 | Inpatient (IN) | payer OTHER ==
[~2016-08-23] VITALS: Ht 167.6 cm; Wt 134.4 kg
[~2016-08-23 14:01] MED LIST changes: +AMT25 PO; +BND25X PO; -IPRASOL4 INH; +LBR25 PO; +PRD20 PO
[2016-08-23] MEDS ORDERED: SODIUM CHLORIDE 0.9% 1000ML 1,000 ML IV STA (14:15)
--- NOTE | 2016-08-23 14:20 | EMERGENCY ROOM VISIT NOTE ---
History Report prepared by Domenico: Ludmila Hu Under the Supervision of: Carolyne TempletonO. First contact with patient: 14:06 Stated Complaint: ILLNESS History of Present Illness The patient is a 50 year old female who presents to the Emergency Room with complaints of altered mental status beginning prior to arrival. Per nursing staff, the patient has been drinking a lot today and these past few days. The patient's brother called for EMS when he found the patient thrashing around and having abnormal behavior. No trauma is known to have occurred lately. This HPI is limited due to patient's current altered mental status. Source of History: nursing staff History Limited By: AMS Review of Systems See HPI for pertinent positives & negatives. A total of 10 systems reviewed and were otherwise negative. Past Medical & Surgical Medical Problems: (1) Acute bronchitis (2) Afib (3) Alcohol abuse (4) Atrial fibrillation (5) Benzodiazepine abuse (6) Cellulitis of leg, right (7) Chronic generalized pain disorder (8) Cocaine abuse (9) copd exac, pna (10) copd exac, pna (11) COPD with acute exacerbation (12) Depression (13) Diabetes (14) Diabetes (15) Edema (16) Fatty liver (17) HTN (hypertension) (18) Influenza B (19) Major depression (20) Neuropathy (21) NSTEMI, initial episode of care (22) Obesity (23) Opiate addiction (24) Ovarian cyst (25) Palpitations (26) past psych meds (27) Past Psych Meds (28) Personality disorder (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 (30) Sleep apnea (31) Suicide attempt Surgical Problems: (1) H/O foot surgery (2) H/O ovarian cystectomy Family History Heart disease Social History Smoking Status: Current Every Day Smoker Alcohol Use: heavy Drug Use: cocaine, marijuana Marital Status: single Housing Status: lives with family Occupation Status: disabled Current/Historical Medications Scheduled Albuterol Hfa (Ventolin Hfa), 2-4 PUFFS INH Q6H Amitriptyline HCl (Amitriptyline HCl), 50 MG PO HS Apixaban (Eliquis), 5 MG PO BID Aspirin (Aspirin EC Low Dose), 81 MG PO QAM Diltiazem Hcl Coated Beads (Diltiazem Hcl Er), 300 MG PO QAM Fluticasone Furoate-Vilanterol (Breo Ellipta), 1 PUFF INH BID Furosemide (Furosemide), 40 MG PO QAM Insulin Aspart (Novolog Flexpen), 8 UNITS SQ TIDM Insulin Glargine (Lantus Solostar), 40 UNITS SQ HS Losartan Potassium (Losartan Potassium), 50 MG PO DAILY Metoprolol Succinate (Metoprolol Succinate ER), 100 MG PO BID Omeprazole (Prilosec), 20 MG PO QAM Paliperidone Palmitate (Invega Sustenna), 1 DOSE IM MONTHLY Potassium Chloride Microencaps (Potassium Chloride Er), 20 MEQ PO DAILY Prednisone (Prednisone), 40 MG PO DAILY Ranitidine HCl (Ranitidine HCl), 150 MG PO BID Trazodone HCl (Trazodone HCl), 1 TAB PO HS Valacyclovir HCl (Valacyclovir HCl), 500 MG PO QAM Venlafaxine Hcl (Effexor Extended Rel), 75 MG PO DAILY Scheduled PRN Albuterol Sulf (Proventil 0.083% 2.5MG/3ML), 1 VIAL NEB Q4-6HRS PRN for Wheezing Chlordiazepoxide (Chlordiazepoxide HCl), 25 MG PO DAILY PRN for alcohol withdrawal/anxiety Diphenhydramine HCl (Diphenhydramine HCl), 25 MG PO Q4H PRN for itching Guaifenesin (Mucinex Maximum Strength), 1 TAB PO BID PRN for PRN Hydrocodone/Acetaminophen ([place] 10/325 Tab), 1 TAB PO TID PRN for Pain Lactulose (Constulose), 45 ML PO DAILY PRN for Constipation Allergies Coded Allergies: Haloperidol (Verified Allergy, Severe, TONGUE SWELLING, 08/23/16) Margarine (Verified Allergy, Severe, RASH, 08/23/16) Pt reported an allergy to butter & margarine (causes swelling), though stated she is not allergic to milk. Penicillins (Verified Allergy, Unknown, UNKNOWN, 08/23/16) PER CHRISSY IN U Sulfamethoxazole w/Trimethoprim (Verified Allergy, Unknown, ., 08/23/16) Morphine (Verified Adverse Reaction, Mild, HEADACHE, 08/23/16) Oxycodone (Verified Adverse Reaction, Unknown, ITCH, 08/23/16) Physical Exam Vital Signs Date Time Temp Pulse Resp B/P Pulse Ox O2 Delivery O2 Flow Rate FiO2 08/23/16 19:00 104 20 156/96 94 Room Air 08/23/16 17:22 101 22 172/88 97 Room Air 08/23/16 15:00 97 Room Air 08/23/16 14:32 97 Room Air 08/23/16 14:31 109 22 100 08/23/16 14:29 177/85 08/23/16 14:22 163/81 08/23/16 14:21 112 08/23/16 14:15 36.7 112 24 163/81 100 Room Air Physical Exam GENERAL: Patient is listless but responds to verbal stimuli, intermittently screams out, odor of alcohol noted. EYES: The conjunctivae are clear. The pupils are constricted and minimally reactive to light. EARS, NOSE, MOUTH AND THROAT: The nose is without any evidence of any deformity. Mucous membranes are moist tongue is midline NECK: The neck is nontender and supple. RESPIRATORY: Normal respiratory effort is noted. Scattered rhonchi throughout. CARDIOVASCULAR: Tachycardic rate but regular rhythm noted there no murmurs rubs or gallops normal S1 normal S2 GASTROINTESTINAL: The abdomen is soft. Bowel sounds are present in all quadrants. Abdomen is diffusely tender. No guarding or rigidity. MUSCULOSKELETAL/EXTREMITIES: There is no evidence of gross deformity full range of motion is noted in the hips and shoulders SKIN: There is no obvious evidence of any rash. There are no petechiae, pallor or cyanosis noted. Pitting edema bilaterally. NEUROLOGIC: Patient is oriented to person, place and situation. Strength symmetric. PSYCH: Currently admitting to vague suicidal ideation. Medical Decision & Procedures ER Provider Diagnostic Interpretation: X-ray results as stated below per interpretation by me and the radiologist. CHEST ONE VIEW PORTABLE CLINICAL HISTORY: Overdose COMPARISON STUDY: 08/10/2016 FINDINGS: The heart remains enlarged. There is no focal pulmonary consolidation. There are no pleural effusions. Mild interstitial prominence, likely relates to technical factors given the patient's large body habitus. There is minor irregularity of the proximal left humerus. This may represent a summation with periarticular calcifications as were visualized and are prior left shoulder series dated 07/13/2015[ IMPRESSION: No acute findings. Electronically signed by: Dawood Diaz M.D. 08/23/2016 2:42 PM Dictated Date/Time: 08/23/2016 2:40 PM Laboratory Results 08/23/16 14:26 Red Blood Count 3.81, Mean Corpuscular Volume 91.1, Mean Corpuscular Hemoglobin 31.2, Mean Corpuscular Hemoglobin Concent 34.3, Mean Platelet Volume 9.6, Neutrophils (%) (Auto) 49.5, Lymphocytes (%) (Auto) 40.6, Monocytes (%) (Auto) 6.1, Eosinophils (%) (Auto) 2.5, Basophils (%) (Auto) 0.5, Neutrophils # (Auto) 3.76, Lymphocytes # (Auto) 3.08, Monocytes # (Auto) 0.46, Eosinophils # (Auto) 0.19, Basophils # (Auto) 0.04 08/23/16 14:26 Test 08/23/16 14:26 08/23/16 14:40 08/23/16 14:58 White Blood Count 7.59 K/uL (4.8-10.8) Red Blood Count 3.81 M/uL (4.2-5.4) Hemoglobin 11.9 g/dL (12.0-16.0) Hematocrit 34.7 % (37-47) Mean Corpuscular Volume 91.1 fL (80-100) Mean Corpuscular Hemoglobin 31.2 pg (25-34) Mean Corpuscular Hemoglobin Concent 34.3 g/dl (32-36) Platelet Count 276 K/uL (130-400) Mean Platelet Volume 9.6 fL (7.4-10.4) Neutrophils (%) (Auto) 49.5 % Lymphocytes (%) (Auto) 40.6 % Monocytes (%) (Auto) 6.1 % Eosinophils (%) (Auto) 2.5 % Basophils (%) (Auto) 0.5 % Neutrophils # (Auto) 3.76 K/uL (1.4-6.5) Lymphocytes # (Auto) 3.08 K/uL (1.2-3.4) Monocytes # (Auto) 0.46 K/uL (0.11-0.59) Eosinophils # (Auto) 0.19 K/uL (0-0.5) Basophils # (Auto) 0.04 K/uL (0-0.2) RDW Standard Deviation 52.7 fL (36.4-46.3) RDW Coefficient of Variation 16.0 % (11.5-14.5) Immature Granulocyte % (Auto) 0.8 % Immature Granulocyte # (Auto) 0.06 K/uL (0.00-0.02) Prothrombin Time 10.7 SECONDS (9.0-12.0) Prothromb Time International Ratio 1.0 (0.9-1.1) Activated Partial Thromboplast Time 23.4 SECONDS (21.0-31.0) Partial Thromboplastin Ratio 0.9 Anion Gap 9.0 mmol/L (3-11) Estimated GFR () 105.3 Estimated GFR (Non- 90.8 BUN/Creatinine Ratio 17.3 (10-20) Calcium Level 8.5 mg/dl (8.5-10.1) Total Bilirubin 0.1 mg/dl (0.2-1) Direct Bilirubin < 0.1 mg/dl (0-0.2) Aspartate Amino Transf (AST/SGOT) 5 U/L (15-37) Alanine Aminotransferase (ALT/SGPT) 23 U/L (12-78) Alkaline Phosphatase 147 U/L (45-117) Total Creatine Kinase 172 U/L (26-192) Creatine Kinase MB 1.7 ng/ml (0.5-3.6) Creatine Kinase MB Ratio 1.0 (0-3.0) Troponin I 0.166 ng/ml (0-0.045) Total Protein 6.8 gm/dl (6.4-8.2) Albumin 3.1 gm/dl (3.4-5.0) Lipase 316 U/L (73-393) Human Chorionic Gonadotropin, Qual NEG (NEG) Salicylates Level 2.6 mg/dl (2.8-20) Acetaminophen Level < 2 ug/ml (10-30) Venous Blood pH 7.25 (7.36-7.41) Venous Blood Partial Pressure CO2 71 mmHg (38.0-50.0) Venous Blood Partial Pressure O2 26 mmHg Venous Blood HCO3 30 mmol/L Venous Blood Oxygen Saturation < 60.0 % Venous Blood Base Excess 1.6 mmol/L Ethyl Alcohol mg/dL 212.0 mg/dl (0-3) Urine Color YELLOW Urine Appearance CLEAR (CLEAR) Urine pH 5.5 (4.5-7.5) Urine Specific [place] 1.006 (1.000-1.030) Urine Protein NEG (NEG) Urine Glucose (UA) 1+ (NEG) Urine Ketones NEG (NEG) Urine Occult Blood 1+ (NEG) Urine Nitrite NEG (NEG) Urine Bilirubin NEG (NEG) Urine Urobilinogen NEG (NEG) Urine Leukocyte Esterase NEG (NEG) Urine WBC (Auto) 0 /hpf (0-5) Urine RBC (Auto) 0-4 /hpf (0-4) Urine Hyaline Casts (Auto) 1-5 /lpf (0-5) Urine Epithelial Cells (Auto) 0-5 /lpf (0-5) Urine Bacteria (Auto) NEG (NEG) Urine Opiates Screen NEG (NEG) Urine Methadone, Qualitative NEG (NEG) Urine Barbiturates NEG (NEG) Urine Phencyclidine (PCP) Level NEG (NEG) Ur Amphetamine/Methamphetamine NEG (NEG) MDMA (Ecstasy) Screen NEG (NEG) Urine Benzodiazepines Screen POS (NEG) Urine Cocaine Metabolite POS (NEG) Urine Marijuana (THC) NEG (NEG) Laboratory results per my review. Medications Administered Medications (Trade) Dose Ordered Sig/Lucien Route Start Time Stop Time Status Last Admin Dose Admin Sodium Chloride (Nss 1000ml) 1,000 ml @ 999 mls/hr Q1H1M STAT IV 08/23/16 14:15 08/23/16 15:15 DC 08/23/16 15:15 999 MLS/HR ECG Indication: altered mental status Rate (beats per minute): 102 Rhythm: sinus tachycardia Findings: nonspecific-ST abn, Q waves (Anterior), no ectopy Change: Changes from August 12, 2016. ED Course 1415: The patient was evaluated in room B2. A complete history and physical examination were performed. 1415: Sodium Chloride 1,000 ml @ 999 mls/hr IV. 1830: Psych is evaluating the patient. 1917: I discussed the patient's case with Dr. Thomas Loredo [facility] [place]. The patient will be evaluated for further management. Medical Decision Differential diagnosis: Etiologies such as metabolic, infection, hypoglycemia, electrolyte abnormalities , cardiac sources, intracerebral event, toxicologic, neurologic, as well as others were entertained. Nursing notes reviewed. The patient is a 50-year-old female who presents to emergency department for an evaluation of altered mental status. The patient was found have signs of alcohol intoxication. She also clearly had taken recreational medications and appeared to be overdosed on these medications. The patient was reevaluated multiple times. She does have significant medical problems as well. She was found have changes on her EKG of unknown significance. Her troponin is chronically elevated so this is not much help in the leaning these abnormalities. I discussed the patient's laboratory radiographic studies with her. Because she was still obtunded I discussed his case with the on-call [facility] hospitalist group. They've agreed to evaluate the patient in the emergency department for further management and disposition. The patient was also evaluated by the mental health emergency Department mattress spring encaser. Her answers were very vague and I'm unsure if they were forthcoming. She may require further mental health evaluation when she is less obtunded. Consults Time Called: 1914 Consulting Physician: Dr. Thomas ALCANTARA Returned Call: 1916 I discussed the patient's case with Dr. Thomas ALCANTARA. The patient will be evaluated for further management. Impression Primary Impression: Altered mental status Additional Impressions: Drug abuse Alcohol intoxication Abnormal EKG Elevated troponin Scribe Attestation The scribe's documentation has been prepared under my direction and personally reviewed by me in its entirety. I confirm that the note above accurately reflects all work, treatment, procedures, and medical decision making performed by me. Departure Information Dispostion Being Evaluated By Hospitalist Referrals Alonso Zuluaga M.D. (PCP) Problem Qualifiers Primary Impression: Altered mental status Altered mental status type: unspecified Qualified Codes: R41.82 - Altered mental status, unspecified Additional Impressions: Alcohol intoxication Complication of substance-induced condition: with unspecified complication Qualified Codes: F10.129 - Alcohol abuse with intoxication, unspecified
[2016-08-23] MEDS ORDERED: VNTHFA/IN INH (14:23)
[2016-08-23 14:41] LABS: BASO % 0.5 %; BASO ABS # 0.04 K/uL (0-0.2); COMPLETE YES; EOS % 2.5 %; HEMATOCRIT 34.7 % (37-47); IG% 0.8 %; LYMPH % 40.6 %; LYMPH ABS # 3.08 K/uL (1.2-3.4); MEAN CELL VOLUME 91.1 fL (80-100); MEAN CORPUSCULAR HEMOGLOBIN 31.2 pg (25-34); MEAN CORPUSCULAR HGB CONC 34.3 g/dl (32-36); MEAN PLATELET VOLUME 9.6 fL (7.4-10.4); MONO % 6.1 %; NEUT % 49.5 %; PLATELET COUNT 276 K/uL (130-400); RED BLOOD COUNT 3.81 M/uL (4.2-5.4); WHITE BLOOD COUNT 7.59 K/uL (4.8-10.8)
--- NOTE | 2016-08-23 14:44 | DIAGNOSTIC IMAGING REPORT ---
CHEST ONE VIEW PORTABLE CLINICAL HISTORY: Overdose COMPARISON STUDY: 08/10/2016 FINDINGS: The heart remains enlarged. There is no focal pulmonary consolidation. There are no pleural effusions. Mild interstitial prominence, likely relates to technical factors given the patient's large body habitus. There is minor irregularity of the proximal left humerus. This may represent a summation with periarticular calcifications as were visualized and are prior left shoulder series dated 07/13/2015[ IMPRESSION: No acute findings. Electronically signed by: Dawood Diaz M.D. 08/23/2016 2:42 PM Dictated Date/Time: 08/23/2016 2:40 PM
[2016-08-23 14:47] LABS: VEN BLD GAS O2 SATURATION < 60.0 %; VEN BLOOD GAS BASE EXCESS 1.6 mmol/L; VENOUS BLOOD GAS PCO2 71 mmHg (38.0-50.0); VENOUS BLOOD GAS PO2 26 mmHg
[2016-08-23 14:52] LABS: PARTIAL THROMBOPLASTIN RATIO 0.9; PROTHROMBIN TIME (PATIENT) 10.7 SECONDS (9.0-12.0)
[2016-08-23 15:01] LABS: BLOOD UREA NITROGEN 13 mg/dl (7-18); BUN/CREATININE RATIO 17.3 (10-20); CALCIUM 8.5 mg/dl (8.5-10.1); CARBON DIOXIDE 27 mmol/L (21-32); CHLORIDE 107 mmol/L (98-107); CREATININE 0.76 mg/dl (0.60-1.20); GLUCOSE 240 mg/dl (70-99); POTASSIUM 4.1 mmol/L (3.5-5.1); SODIUM 143 mmol/L (136-145)
[2016-08-23 15:02] LABS: ALT/SGPT 23 U/L (12-78); AST/SGOT 5 U/L (15-37)
[2016-08-23 15:10] LABS: URINE APPEARANCE CLEAR (CLEAR); URINE BILIRUBIN NEG (NEG); URINE COLOR YELLOW; URINE EPITHELIAL CELL AUTO 0-5 /lpf (0-5); URINE NITRITE NEG (NEG); URINE PH 5.5 (4.5-7.5); URINE SPECIFIC GRAVITY 1.006 (1.000-1.030); UROBILINOGEN NEG (NEG)
[2016-08-23 15:11] LABS: MANUAL MICROSCOPIC REQUIRED? NO; REVIEW REQ? NO
[2016-08-23 15:11] LABS: ACETAMINOPHEN < 2 ug/ml (10-30)
[2016-08-23 15:13] LABS: PREG INTERNAL NEGATIVE QC NEG CLEAR BACKGROUND; PREG INTERNAL POSITIVE QC POS CONTROL LINE
[2016-08-23 15:18] LABS: ALKALINE PHOSPHATASE 147 U/L (45-117)
[2016-08-23 15:34] LABS: BENZODIAZEPINE, URINE POS (NEG); COCAINE,URINE POS (NEG); PHENCYCLIDINE, URINE NEG (NEG)
[2016-08-23] MEDS ORDERED: GUAIFENESIN 600 MG TABCR PO PRN (19:45)
[2016-08-23] MEDS ORDERED: ACETAMINOPHEN 325 MG TAB PO PRN (19:45)
[2016-08-23] MEDS ORDERED: ONDANSETRON INJ 2 MG/ML 2 ML VIAL IV PRN (19:45)
--- NOTE | 2016-08-23 20:13 | History and Physical ---
History & Physical Date & Time of Service: Aug 23, 2016 at 19:50 Chief Complaint: Illness Primary Care Physician: Alonso Zuluaga M.D. History of Present Illness Source: patient, hospital records, other (ED physician) This patient is a 50-year-old female that was reportedly brought in by EMS called by her brother when she was found acting erratically. According to the ED physician, she admitted to using alcohol and cocaine. The history of present illness is significantly limited as patient is refusing to answer most of my questions. She does admit to drinking hard alcohol today. She is unable to quantify this for me. She then says, "Leave me alone." The patient was admitted on August 10 with a diagnosis of NSTEMI. She has a history of severe COPD, oxygen/chronic steroid dependent. Past Medical/Surgical History Medical Problems: (1) Afib Status: Chronic (2) Alcohol abuse Status: Chronic (3) Atrial fibrillation Status: Chronic (4) Benzodiazepine abuse Status: Chronic (5) Chronic generalized pain disorder Status: Chronic (6) Cocaine abuse Status: Chronic (7) Diabetes Status: Chronic (8) Diabetes Status: Chronic (9) Fatty liver Status: Chronic (10) HTN (hypertension) Status: Chronic (11) Major depression Status: Chronic (12) Neuropathy Status: Chronic (13) Obesity Status: Chronic (14) Opiate addiction Status: Chronic (15) Palpitations Status: Chronic (16) Personality disorder Status: Chronic (17) Sciatic nerve disease Status: Chronic (18) Sleep apnea Status: Chronic (19) Suicide attempt Status: Chronic NONCOMPLIANCE Surgical Problems: (1) H/O foot surgery Status: Resolved (2) H/O ovarian cystectomy Status: Resolved Family History Heart disease unable to obtain Social History Smoking Status: Current Every Day Smoker Drug Use: cocaine, marijuana Marital Status: single Housing status: lives alone Occupational Status: disabled Immunizations History of Influenza Vaccine: Yes Influenza Vaccine Date: Apr 23, 2012 History of Tetanus Vaccine?: Unknown History of Pneumococcal: Yes Pneumococcal Date: Mar 12, 2011 History of Hepatitis B Vaccine: had one shot of the series Multi-Drug Resistant Organisms History of MDRO: No Allergies Coded Allergies: Haloperidol (Verified Allergy, Severe, TONGUE SWELLING, 08/23/16) Margarine (Verified Allergy, Severe, RASH, 08/23/16) Pt reported an allergy to butter & margarine (causes swelling), though stated she is not allergic to milk. Penicillins (Verified Allergy, Unknown, UNKNOWN, 08/23/16) PER [facility] IN [facility] Sulfamethoxazole w/Trimethoprim (Verified Allergy, Unknown, ., 08/23/16) Morphine (Verified Adverse Reaction, Mild, HEADACHE, 08/23/16) Oxycodone (Verified Adverse Reaction, Unknown, ITCH, 08/23/16) Home Medications Scheduled Albuterol Hfa (Ventolin Hfa), 2-4 PUFFS INH Q6H Amitriptyline HCl (Amitriptyline HCl), 50 MG PO HS Apixaban (Eliquis), 5 MG PO BID Aspirin (Aspirin EC Low Dose), 81 MG PO QAM Diltiazem Hcl Coated Beads (Diltiazem Hcl Er), 300 MG PO QAM Fluticasone Furoate-Vilanterol (Breo Ellipta), 1 PUFF INH BID Furosemide (Furosemide), 40 MG PO QAM Insulin Aspart (Novolog Flexpen), 8 UNITS SQ TIDM Insulin Glargine (Lantus Solostar), 40 UNITS SQ HS Losartan Potassium (Losartan Potassium), 50 MG PO DAILY Metoprolol Succinate (Metoprolol Succinate ER), 100 MG PO BID Omeprazole (Prilosec), 20 MG PO QAM Paliperidone Palmitate (Invega Sustenna), 1 DOSE IM MONTHLY Potassium Chloride Microencaps (Potassium Chloride Er), 20 MEQ PO DAILY Prednisone (Prednisone), 40 MG PO DAILY Ranitidine HCl (Ranitidine HCl), 150 MG PO BID Trazodone HCl (Trazodone HCl), 1 TAB PO HS Valacyclovir HCl (Valacyclovir HCl), 500 MG PO QAM Venlafaxine Hcl (Effexor Extended Rel), 75 MG PO DAILY Scheduled PRN Albuterol Sulf (Proventil 0.083% 2.5MG/3ML), 1 VIAL NEB Q4-6HRS PRN for Wheezing Chlordiazepoxide (Chlordiazepoxide HCl), 25 MG PO DAILY PRN for alcohol withdrawal/anxiety Diphenhydramine HCl (Diphenhydramine HCl), 25 MG PO Q4H PRN for itching Guaifenesin (Mucinex Maximum Strength), 1 TAB PO BID PRN for PRN Hydrocodone/Acetaminophen ([place] 10/325 Tab), 1 TAB PO TID PRN for Pain Lactulose (Constulose), 45 ML PO DAILY PRN for Constipation Review of Systems Unable to obtain secondary to mental state Physical Exam Vital Signs Date Time Temp Pulse Resp B/P Pulse Ox O2 Delivery O2 Flow Rate FiO2 08/23/16 19:00 104 20 156/96 94 Room Air 08/23/16 17:22 101 22 172/88 97 Room Air 08/23/16 15:00 97 Room Air 08/23/16 14:32 97 Room Air 08/23/16 14:31 109 22 100 08/23/16 14:29 177/85 08/23/16 14:22 163/81 08/23/16 14:21 112 08/23/16 14:15 36.7 112 24 163/81 100 Room Air Patient refused physical exam. I was able to listen to her lungs GENERAL: Intoxicated in appearance, disgruntled PULM: Diffuse mild wheezing bilaterally Diagnostics Laboratory Results Results Past 24 Hours Test 08/23/16 14:26 08/23/16 14:40 08/23/16 14:58 Range/Units White Blood Count 7.59 4.8-10.8 K/uL Red Blood Count 3.81 4.2-5.4 M/uL Hemoglobin 11.9 12.0-16.0 g/dL Hematocrit 34.7 37-47 % Mean Corpuscular Volume 91.1 80-100 fL Mean Corpuscular Hemoglobin 31.2 25-34 pg Mean Corpuscular Hemoglobin Concent 34.3 32-36 g/dl Platelet Count 276 130-400 K/uL Mean Platelet Volume 9.6 7.4-10.4 fL Neutrophils (%) (Auto) 49.5 % Lymphocytes (%) (Auto) 40.6 % Monocytes (%) (Auto) 6.1 % Eosinophils (%) (Auto) 2.5 % Basophils (%) (Auto) 0.5 % Neutrophils # (Auto) 3.76 1.4-6.5 K/uL Lymphocytes # (Auto) 3.08 1.2-3.4 K/uL Monocytes # (Auto) 0.46 0.11-0.59 K/uL Eosinophils # (Auto) 0.19 0-0.5 K/uL Basophils # (Auto) 0.04 0-0.2 K/uL RDW Standard Deviation 52.7 36.4-46.3 fL RDW Coefficient of Variation 16.0 11.5-14.5 % Immature Granulocyte % (Auto) 0.8 % Immature Granulocyte # (Auto) 0.06 0.00-0.02 K/uL Prothrombin Time 10.7 9.0-12.0 SECONDS Prothromb Time International Ratio 1.0 0.9-1.1 Activated Partial Thromboplast Time 23.4 21.0-31.0 SECONDS Partial Thromboplastin Ratio 0.9 Sodium Level 143 136-145 mmol/L Potassium Level 4.1 3.5-5.1 mmol/L Chloride Level 107 98-107 mmol/L Carbon Dioxide Level 27 21-32 mmol/L Anion Gap 9.0 3-11 mmol/L Blood Urea Nitrogen 13 7-18 mg/dl Creatinine 0.76 0.60-1.20 mg/dl Estimated GFR () 105.3 Estimated GFR (Non- 90.8 BUN/Creatinine Ratio 17.3 10-20 Random Glucose 240 70-99 mg/dl Calcium Level 8.5 8.5-10.1 mg/dl Total Bilirubin 0.1 0.2-1 mg/dl Direct Bilirubin < 0.1 0-0.2 mg/dl Aspartate Amino Transf (AST/SGOT) 5 15-37 U/L Alanine Aminotransferase (ALT/SGPT) 23 12-78 U/L Alkaline Phosphatase 147 45-117 U/L Total Creatine Kinase 172 26-192 U/L Creatine Kinase MB 1.7 0.5-3.6 ng/ml Creatine Kinase MB Ratio 1.0 0-3.0 Troponin I 0.166 0-0.045 ng/ml Total Protein 6.8 6.4-8.2 gm/dl Albumin 3.1 3.4-5.0 gm/dl Lipase 316 73-393 U/L Human Chorionic Gonadotropin, Qual NEG NEG Salicylates Level 2.6 2.8-20 mg/dl Acetaminophen Level < 2 10-30 ug/ml Venous Blood pH 7.25 7.36-7.41 Venous Blood Partial Pressure CO2 71 38.0-50.0 mmHg Venous Blood Partial Pressure O2 26 mmHg Venous Blood HCO3 30 mmol/L Venous Blood Oxygen Saturation < 60.0 % Venous Blood Base Excess 1.6 mmol/L Ethyl Alcohol mg/dL 212.0 0-3 mg/dl Urine Color YELLOW Urine Appearance CLEAR CLEAR Urine pH 5.5 4.5-7.5 Urine Specific [place] 1.006 1.000-1.030 Urine Protein NEG NEG Urine Glucose (UA) 1+ NEG Urine Ketones NEG NEG Urine Occult Blood 1+ NEG Urine Nitrite NEG NEG Urine Bilirubin NEG NEG Urine Urobilinogen NEG NEG Urine Leukocyte Esterase NEG NEG Urine WBC (Auto) 0 0-5 /hpf Urine RBC (Auto) 0-4 0-4 /hpf Urine Hyaline Casts (Auto) 1-5 0-5 /lpf Urine Epithelial Cells (Auto) 0-5 0-5 /lpf Urine Bacteria (Auto) NEG NEG Urine Opiates Screen NEG NEG Urine Methadone, Qualitative NEG NEG Urine Barbiturates NEG NEG Urine Phencyclidine (PCP) Level NEG NEG Ur Amphetamine/Methamphetamine NEG NEG MDMA (Ecstasy) Screen NEG NEG Urine Benzodiazepines Screen POS NEG Urine Cocaine Metabolite POS NEG Urine Marijuana (THC) NEG NEG Diagnostic Radiology Patient: TRINA LEMUS Address1: [address] [place] [address] [address] [facility] Rec: [id number] Address2: Acct ID: [id number] [facility] Zip: [place] [address] Date: 1965 Sex: F Room/Bed: Ref Phy: Alonso Zuluaga M.D. SC: [facility] Att Phy: Report #: [id number] Anel Phy: Alonso Zuluaga M.D. Test: [id number] Admit Phy: Twill Cutter: BRIANNA Interpreting Phy: Dawood Diaz M.D. Diagnosis: ILLNESS Ordering Phy: Jackson Ozuna D.O. Service Date: 08/23/16 Admit Date: 08/23/16 MNE: [id number] CONF: DICTATED BY: Dawood Diaz M.D.]] CC: Jackson Ozuna, DO Alonso Zuluaga M.D. Endcc: [~ rep ct add3]] CHEST ONE VIEW PORTABLE CLINICAL HISTORY: Overdose COMPARISON STUDY: 08/10/2016 FINDINGS: The heart remains enlarged. There is no focal pulmonary consolidation. There are no pleural effusions. Mild interstitial prominence, likely relates to technical factors given the patient's large body habitus. There is minor irregularity of the proximal left humerus. This may represent a summation with periarticular calcifications as were visualized and are prior left shoulder series dated 07/13/2015[ IMPRESSION: No acute findings. Electronically signed by: Dawood Diaz M.D. 08/23/2016 2:42 PM Dictated Date/Time: 08/23/2016 2:40 PM The status of this report is Signed. Draft = Not yet reviewed or approved by Radiologist. Signed = Reviewed and approved by Radiologist. <AttendingPhy></AttendingPhy> <FamilyPhy>Alonso Zuluaga M.D.</FamilyPhy> < PrimaryPhy>Alonso Zuluaga M.D.</PrimaryPhy> <UnitNumber>[id number]</UnitNumber> <VisitNumber>[id number]</VisitNumber> <PatientName>ALLANTRINA</ PatientName> <DateOfBirth>1965</DateOfBirth> <Location>C.EDB</Location> < ServiceDate>08/23/16</ServiceDate> <MNE>ESINDI</MNE> <OrderingPhy>Jackson Ozuna D.O.</OrderingPhy> <OrderingPhyMNE>f rep ord dr rubio</OrderingPhyMNE> <DictatingPhyMNE>f rep dict dr rubio</DictatingPhyMNE> <CCListMNE>f rep ct ramiro</ CCListMNE> <AdmittingPhyMNE>f pt admit dr rubio</AdmittingPhyMNE> <AttendingPhyMNE >f pt attend dr rubio</AttendingPhyMNE> <ConsultingPhyMNE>f pt consult dr rubio</ConsultingPhyMNE> <FamilyPhyMNE>f pt fam dr rubio</FamilyPhyMNE> <OtherPhyMNE>f pt other dr rubio</OtherPhyMNE> < PrimaryPhyMNE>f pt prim care dr polk EKG Sinus tachycardia [address] elevation in V2 and V3, which appears new Impression Assessment and Plan 50-year-old female with a long-standing cardiac history, advanced COPD, oxygen dependent and steroid [id number] history of noncompliance and psychiatric d/o. Presented to the emergency department with altered mental status secondary to drug and alcohol use. Tested positive for cocaine, benzodiazepines and elevated EtOH of 212 Altered mental status likely secondary to multidrug abuse as noted above. Respiratory acidosis-secondary to chronic COPD and most likely depressed respiratory drive -Observe in telemetry -Continuous pulse ox -Psych consult -Continue O2 -PRP in am Elevated Trop, which is chronic. However pt has hx NSTEMI. The patient has questionable slight EKG changes in V2 and V3 -Trend cardiac enzymes -Monitor on telemetry -Continue current med management, metoprolol ER 100 mg BID, ASA 81 mg daily -Given patient just had an extensive workup, hold off on further studies unless cardiac enzymes begin to climb COPD -Continue O2 -Duo nebs every 6 hours scheduled and as needed every 2 hrs -Continue home dose of prednisone -Continue Breo Anxiety/schizoaffective disorder -Continue Effexor, amitriptyline -Hold tonight's trazodone due to obvious intoxication -Will need psychiatric follow-up A. fib-in sinus rhythm today -Continue Eliquis 5 mg BID -continue Diltiazem ER 300 mg QAM DM -continue lantus 40 u QHS -insulin sliding scale -accuchecks q 6 hr DVT prophylaxis -eliquis -TEDS, SCDs CODE STATUS -LEVEL I FULL CODE Level of Care Telemetry Resuscitation Status FULL RESUSCITATION VTE Prophylaxis VTE Risk Assessment Done? Y/N: Yes Risk Level: Low Given or contraindicated: Other Anticoagulation, T.E.D. Stockings, SCD's Assessment and Plan Attending Addendum: I have physically seen and examined this patient, have directed their medical care, have supervised the PA's activity, and agree with the H&P as noted above, with the following changes: NONE. The patient is intoxicated, minimally cooperative with exam, in no acute distress HEENT--mucous membranes and oropharynx dry. Neck--supple, no JVD or bruits, thyroid normal, trachea midline, no adenopathy. Heart--normal S1 and S2, no extra beats, no murmurs, rubs or gallops. Lungs--few wheezes bilaterally, no respiratory distress, no accessory muscle use. Abdomen--normal bowel sounds and soft, nontender and nondistended. Extremities--no cyanosis, clubbing or edema. There are good distal pulses b/l. Dermatologic--normal skin turgor, normal color, warm and dry, no abnormal lymph nodes, no rash. Neurologic--cranial nerves II through XII grossly intact. Rheumatologic--deferred Psychiatric--mildly agitated. Assessment and Plan: Altered Mental Status--most probably secondary to drug use, with current urine drug screen positive for cocaine, benzodiazepines and elevated alcohol. The patient be admitted to the telemetry unit for cardiac rhythm monitoring, and serial cardiac enzymes. CAD/A. fib/hypertension/NSTEMI history--continue Eliquis 5 mg by mouth twice a day aspirin 81 mg by mouth daily, diltiazem ER 300 mg by mouth every morning, and metoprolol ER 100 mg by mouth twice a day. Diabetes mellitus--continue Lantus insulin 40 units subcutaneous at bedtime. Place on Accu-Cheks before meals and at bedtime with NovoLog coverage. COPD-- duonebs every 6 hours while awake and every 2 hours when necessary, continue Brio and prednisone. Anxiety/schizoaffective disorder--continue home dosing of Effexor and amitriptyline. Hold trazodone for tonight.
[2016-08-23] MEDS ORDERED: INSULIN GLARGINE SOLOSTAR 100 UNITS/ML 3 ML PEN SQ SCH (21:00)
[2016-08-23] MEDS ORDERED: IV FLUIDS COMPLETED PRN (21:30)
[2016-08-24] VITALS (7 sets, daily range): BP systolic 142–170; BP diastolic 89–102; PULSE 73–88; TEMP 36.6–37.2; O2SAT 93–97; BMI 47.5
[2016-08-24] MEDS ORDERED: GLUCOSE 40% GEL 15 GM TUBE PO PRN (00:15)
[2016-08-24] MEDS ORDERED: DEXTROSE 50% 50 ML SYR IV PRN (00:15)
[2016-08-24] MEDS ORDERED: GLUCAGON FOR INJ 1 MG VIAL SQ PRN (00:15)
[2016-08-24] MEDS ORDERED: GLUCOSE 10 TABS/TUBE PO PRN (00:15)
[2016-08-24] MEDS: APIXABAN 2.5 MG TAB PO SCH ×3 (00:46→19:39)
[2016-08-24] MEDS: AMITRIPTYLINE HCL 25 MG TAB PO SCH ×2 (00:47→19:39)
[2016-08-24] MEDS: RANITIDINE HCL 150 MG TAB PO SCH ×3 (00:47→19:40)
[2016-08-24] MEDS: METOPROLOL SUCC 50MG EXT REL TAB PO SCH ×3 (00:47→19:38)
[2016-08-24] MEDS: INSULIN ASPART 100 UNITS/ML 3 ML PEN SC SCH ×5 (00:50→21:01)
[2016-08-24] MEDS ORDERED: LORAZEPAM 2 MG/ML 1 ML VIAL ONE (01:55)
[2016-08-24] MEDS ORDERED: LORAZEPAM INJ 1 MG in SYRINGE 0.5 ML IV PRN (02:00)
[2016-08-24 02:26] LABS: CKMB/CK RATIO 0.8 (0-3.0)
[2016-08-24] MEDS: POTASSIUM CHLORIDE 20 MEQ TABCR PO SCH (08:13)
[2016-08-24] MEDS: DILTIAZEM HCL 300 MG CAPCR PO SCH (08:14)
[2016-08-24] MEDS: VENLAFAXINE HCL XR 75 MG CAPXR PO SCH (08:15)
[2016-08-24] MEDS: ASPIRIN 81 MG ECTAB PO SCH (08:15)
[2016-08-24] MEDS: LOSARTAN POTASSIUM 50 MG TAB PO SCH (08:15)
[2016-08-24] MEDS: FUROSEMIDE 40 MG TAB PO SCH (08:16)
[2016-08-24] MEDS: PANTOprazole SOD 40 MG TAB PO SCH (08:16)
[2016-08-24] MEDS ORDERED: GABAPENTIN 600 MG TAB PO SCH (14:15)
[2016-08-24] MEDS ORDERED: LORAZEPAM 1 MG TAB PO PRN (14:15)
[2016-08-24] MEDS ORDERED: CHLORDIAZEPOXIDE 25 MG CAP PO SCH (14:15)
[2016-08-24] MEDS ORDERED: HYDROCODONE/ACETAMOPHEN 5/325MG TAB PO PRN (14:30)
[2016-08-24] MEDS ORDERED: METHYLPREDNISOLONE IV 125 MG in SYRINGE 0 ML IV ONE (14:45)
[2016-08-24] MEDS ORDERED: PHARMACY GLYCEMIC MGMT CONSULT PRN (14:45)
[2016-08-24] MEDS ORDERED: ALBUT/IPRATROP 3MG/0.5MG NEB 3 ML VIAL INH PRN (15:00)
[2016-08-24] MEDS ORDERED: MULTI-VITAMIN INFUSION INJ 10 ML, THIAMINE HCL INJ 100 MG, FoLIC ACID INJ 1 MG in SODIU... IV ONE (15:00)
[2016-08-24] MEDS: ALBUT/IPRATROP 3MG/0.5MG NEB 3 ML VIAL INH SCH ×2 (15:27→19:59)
[2016-08-24] MEDS ORDERED: GABAPENTIN 1200MG LOADING DOSE PO SCH (16:00)
--- NOTE | 2016-08-24 16:10 | Pharmacy Progress Note ---
Glycemic Control Intl Consult Date of Service Aug 24, 2016. Scope Glycemic Pharmacist consulted by Dr Asher on 08/24/16 for glycemic control and to write orders per [facility] inpatient glycemic control protocol Objective Weight (Kilograms): 133.500 Accuchecks BSG (last 24hrs): Test 08/24/16 00:45 08/24/16 08:36 08/24/16 11:23 Bedside Glucose 168 mg/dl (70-90) 166 mg/dl (70-90) 176 mg/dl (70-90) HbA1c Item Value Date Time Hemoglobin A1c 8.8 % H 04/15/16 0756 Recent Pertinent Medications Outpatient Anti-diabetic Regimen: * Lantus 40 units HS * Novolog 8 units with meals * New A1c pending The patient is currently receiving: * Basal insulin: Lantus 40 units HS * Correctional Insulin: Novolog Correction per scale ACHS Goal Range: Low 120 mg/dL - High 150 mg/dL Correction Factor: 25 mg/dL/unit * Prandial insulin: Per carb ratio of 1 unit per 20 grams CHO consumed Risk Factors for Insulin Resistance: * Steroids: Solumedrol 125 mg IV X 1, followed by 40 mg IV every 6 hours * Diet: T2DM, AHA * Alcohol withdrawal Assessment & Plan ASSESSMENT: * 50 yo T2DM F admitted with AMS secondary to alcohol, currently in telemetry unit on alcohol withdrawal protocol * BSGs have been stable since admission last evening, but I do not believe this will continue * Pt has been initiated on high dose IV steroids this afternoon, which from past admissions, we know will cause her to have severe steroid-induced hyperglycemia * When on IV steroids, BSGs are typically >300 mg/dL with double outpatient Lantus dosing and very tight Novolog coverage * I will initiate aggressive regimen tonight, and have glycemic pharmacist follow her closely through the evening * Start with weight-based dosing and stress of 3, reassess throughout the evening * Spoke with MD, low threshold for insulin drip * IF BSGs trend >350 mg/dL consistently, recommend insulin infusion * ADA & AACE recommend a goal blood sugar range 140-180 mg/dl for the majority of critically ill & non-critically ill patients. However, more stringent targets may be selected in individual cases. Per past admission data on steroids , tighten goal to 100-140 mg/dL PLAN FOR INPATIENT GLYCEMIC CONTROL: * Basal insulin with LANTUS BID based on BSGs * IF BSG <140 mg/dL--> give 25 units * IF BSG 141-180 mg/dL--> give 35 units * IF BSG >181 mg/dL--> give 45 units * Correctional Insulin with NOVOLOG per scale ACHS or Q6hrs while NPO * Goal Range: Low 100 mg/dL - High 140 mg/dL * Correction Factor: 10 mg/dL/unit * Nutritional / Prandial insulin per carb ratio of 1 unit per 4 grams CHO consumed * A1c ordered IF BSGs sustain >350 mg/dL, recommend insulin infusion * Start IV insulin infusion per moderate stress protocol * Goal Range 140 - 180 mg/dl * In the critical care setting, continuous IV insulin infusion has been shown to be the best method for achieving glycemic targets. * Please note that the plan above was derived based on current level of insulin resistance and hospital stress. These recommendations are appropriate for inpatient admission only. Plan of care upon discharge will need to be reassessed to avoid potential outpatient hypo/hyperglycemia. Thank you.
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
[2016-08-24] MEDS: HYDROCODONE/ACETAMOPHEN 5/325MG TAB PO PRN (19:36)
[2016-08-24] MEDS: LORAZEPAM 2 MG/ML 1 ML VIAL IV PRN (19:36)
[2016-08-24] MEDS: SENNA 8.6 MG TAB PO SCH (19:37)
[2016-08-24] MEDS: GABAPENTIN 600MG Q6H DOSE PO SCH (19:37)
--- NOTE | 2016-08-24 19:53 | Hospitalist Progress Note ---
Hospitalist Progress Note Date of Service Aug 24, 2016. Subjective Pt evaluation today including: conversation w/ patient, physical exam, chart review, lab review, review of studies, review of inpatient medication list Patient is no longer inebriated. She tells me that she is interested in rehab for ETOH, but at last hospital stay, she could not find a facility to take her so she went back home and started drinking again. She is reporting some "shakiness" that she feels is due to withdrawal. Additional Comments: A 10 system review was performed and all were negative. Positives were placed in the subjective section. Objective Vital Signs Date Time Temp Pulse Resp B/P Pulse Ox O2 Delivery O2 Flow Rate FiO2 08/24/16 16:00 36.8 83 16 142/93 96 Room Air 08/24/16 15:27 77 20 96 Room Air 08/24/16 12:00 36.9 86 16 152/92 97 Room Air 08/24/16 06:23 37.2 86 22 170/94 97 Room Air 08/24/16 05:30 69 30 100 08/24/16 05:04 91 08/24/16 05:00 87 27 95 08/24/16 04:30 87 24 95 08/24/16 04:00 83 24 94 08/24/16 03:59 148/82 08/24/16 03:55 84 25 94 08/24/16 03:09 139/90 08/24/16 02:55 87 31 97 08/24/16 02:50 88 29 97 08/24/16 02:20 89 24 95 08/24/16 01:59 151/84 08/24/16 01:50 93 21 97 08/24/16 01:20 100 26 95 08/24/16 01:11 108 08/24/16 00:59 131/74 08/24/16 00:50 104 21 96 08/24/16 00:20 113 25 96 08/24/16 00:15 113 22 97 08/24/16 00:10 162/92 08/24/16 00:00 114 23 08/23/16 23:45 104 26 08/23/16 23:30 93 35 08/23/16 23:15 113 11 08/23/16 23:00 93 28 08/23/16 22:45 109 28 94 08/23/16 22:30 108 29 98 08/23/16 22:23 102 20 158/80 99 08/23/16 21:34 104 18 170/100 98 Physical Exam Notes: GEN: Awake, alert, and oriented x 3. Not in acute distress HEENT: Tm's intact, no inflammation, EOMI, PERRLA, MMM Neck: Soft, supple Lungs: + expiratory wheezes b/l with rhonchi in mid lung landry. Heart: REG, nrl S1S2 without murmurs, rubs or gallops Abdomen: Soft, NT, ND, + BS EXT: No C/C/E NEURO: CN's II-XII grossly intact, non-focal Skin: warm, dry, no rashes PSYCH: cooperative and forthcoming with that she has been drinking and using cocaine, but seems anxious. Laboratory Results Last 24 Hours Test 08/24/16 00:45 08/24/16 01:54 08/24/16 08:36 08/24/16 10:29 Bedside Glucose 168 mg/dl 166 mg/dl Total Creatine Kinase 165 U/L 151 U/L Creatine Kinase MB 1.3 ng/ml 1.5 ng/ml Creatine Kinase MB Ratio 0.8 1.0 Troponin I 0.223 ng/ml 0.207 ng/ml Test 08/24/16 11:23 08/24/16 15:43 Bedside Glucose 176 mg/dl 274 mg/dl Assessment and Plan 1) ETOH intoxication - resolved 2) ETOH withdrawal - add gabapentin and prn ativan 3) COPD exacerbation - IV Solu-medrol, nebs, supplemental oxygen 4) Type II DM - with anticipated elevated sugars due to increased steroid dosing - ask pharmacy for glycemic consult 5) Costochondritis - steroids should help this 6) A.fib - rate controlled on usual oral meds, uses Eliquis for anticoagulation. DVT prophylaxis TEDs, SCDs and Eliquis will cover. Discharge planning: rehab hospital
[2016-08-24] MEDS: INSULIN GLARGINE SOLOSTAR 100 UNITS/ML 3 ML PEN SQ SCH (21:00)
[2016-08-24] MEDS: METHYLPREDNISOLONE IV 40 MG in SYRINGE 0 ML IV SCH (21:01)
[2016-08-25] VITALS (14 sets, daily range): BP systolic 122–166; BP diastolic 58–88; PULSE 66–81; TEMP 36.7–37.1; O2SAT 93–97
[2016-08-25] MEDS: HYDROCODONE/ACETAMOPHEN 5/325MG TAB PO PRN ×5 (00:07→23:39)
[2016-08-25] MEDS: LORAZEPAM 2 MG/ML 1 ML VIAL IV PRN ×4 (00:07→23:39)
[2016-08-25 00:09] LABS: URINE APPEARANCE CLEAR (CLEAR); URINE BILIRUBIN NEG (NEG); URINE COLOR ORANGE; URINE NITRITE NEG (NEG); URINE PH 5.5 (4.5-7.5); URINE SPECIFIC GRAVITY 1.033 (1.000-1.030); UROBILINOGEN NEG (NEG)
[2016-08-25 00:10] LABS: MANUAL MICROSCOPIC REQUIRED? NO; REVIEW REQ? NO
[2016-08-25] MEDS: METHYLPREDNISOLONE IV 40 MG in SYRINGE 0 ML IV SCH ×4 (02:30→21:16)
[2016-08-25] MEDS: GABAPENTIN 600MG Q6H DOSE PO SCH (04:03)
[2016-08-25] MEDS: INSULIN ASPART 100 UNITS/ML 3 ML PEN SC SCH ×7 (04:05→23:31)
[2016-08-25 05:40] LABS: BASO % 0.1 %; BASO ABS # 0.01 K/uL (0-0.2); COMPLETE YES; HEMATOCRIT 38.8 % (37-47); IG% 0.6 %; LYMPH % 7.9 %; MEAN CELL VOLUME 90.4 fL (80-100); MEAN CORPUSCULAR HEMOGLOBIN 30.8 pg (25-34); MEAN PLATELET VOLUME 10.2 fL (7.4-10.4); MONO % 1.7 %; NEUT % 89.7 %; PLATELET COUNT 308 K/uL (130-400); RED BLOOD COUNT 4.29 M/uL (4.2-5.4); WHITE BLOOD COUNT 13.89 K/uL (4.8-10.8)
[2016-08-25 06:20] LABS: ALB/GLOB RATIO 0.7 (0.9-2); BUN/CREATININE RATIO 17.2 (10-20); CREATININE 0.79 mg/dl (0.60-1.20); POTASSIUM 4.2 mmol/L (3.5-5.1)
[2016-08-25] MEDS: ALBUT/IPRATROP 3MG/0.5MG NEB 3 ML VIAL INH SCH ×4 (07:16→20:06)
[2016-08-25] MEDS: RANITIDINE HCL 150 MG TAB PO SCH ×2 (07:33→21:17)
[2016-08-25] MEDS: LOSARTAN POTASSIUM 50 MG TAB PO SCH (07:33)
[2016-08-25] MEDS: ASPIRIN 81 MG ECTAB PO SCH (07:34)
[2016-08-25] MEDS: METOPROLOL SUCC 50MG EXT REL TAB PO SCH ×2 (07:34→21:17)
[2016-08-25] MEDS: VENLAFAXINE HCL XR 75 MG CAPXR PO SCH (07:34)
[2016-08-25] MEDS: POTASSIUM CHLORIDE 20 MEQ TABCR PO SCH (07:34)
[2016-08-25] MEDS: PANTOprazole SOD 40 MG TAB PO SCH (07:35)
[2016-08-25] MEDS: APIXABAN 2.5 MG TAB PO SCH ×2 (07:35→21:20)
[2016-08-25] MEDS: FUROSEMIDE 40 MG TAB PO SCH (07:35)
[2016-08-25] MEDS: DILTIAZEM HCL 300 MG CAPCR PO SCH (07:35)
[2016-08-25] MEDS: INSULIN GLARGINE SOLOSTAR 100 UNITS/ML 3 ML PEN SQ SCH ×2 (07:41→21:27)
[2016-08-25] MEDS ORDERED: HydrALAZINE HCL 20 MG/ML VIAL IV. PRN (09:30)
[2016-08-25] MEDS ORDERED: CLONIDINE HCL 0.1 MG TAB PO ONE (10:00)
--- NOTE | 2016-08-25 10:07 | Hospitalist Progress Note ---
Hospitalist Progress Note Date of Service Aug 25, 2016. Subjective Pt evaluation today including: conversation w/ patient, physical exam, chart review, lab review, review of studies, review of inpatient medication list Patient is having hematuria. U/A is not definitive for uti, however patient reports that she is prone to frequent uti. I ordered IV levaquin to cover in case. Furthermore, in regards to exacerbation of COPD I felt this antibiotic would cover lung as well. Her chest x-ray did not show a pneumonia. She reports that she is feeling better in that she is not "jittery" now. She tells me that her HR has been stable and controlled. She feels that she is relaxed, but in a good way. She further explains that she has been nervous and tense from her social situation and that is why she drank ETOH to relax. The only new medication I added was gabapentin. She is receiving prn ativan, but I believe she has benzos available as an outpatient. Additional Comments: A 10 system review was performed and all were negative. Positives were placed in the subjective section. Objective Vital Signs Date Time Temp Pulse Resp B/P Pulse Ox O2 Delivery O2 Flow Rate FiO2 08/25/16 07:35 36.7 70 20 160/88 95 Room Air 08/25/16 07:15 71 18 97 Room Air 08/25/16 04:08 36.8 81 18 150/87 95 Room Air 08/24/16 23:57 36.6 82 18 162/102 93 Room Air 08/24/16 20:00 36.8 88 16 156/89 96 Room Air 08/24/16 19:59 73 18 97 Room Air 08/24/16 16:00 36.8 83 16 142/93 96 Room Air 08/24/16 15:27 77 20 96 Room Air 08/24/16 12:00 36.9 86 16 152/92 97 Room Air Physical Exam Notes: GEN: Patient awaken from sleep. She is lucid and oriented x3. HEENT: Tm's intact, no inflammation, EOMI, PERRLA, MMM Neck: Soft, supple Lungs: + exp wheezes b/l. I do not appreciate any rhonchi today. Heart: REG, nrl S1S2 without murmurs, rubs or gallops Abdomen: Soft, NT, ND, + BS EXT: No C/C/E NEURO: CN's II-XII grossly intact, non-focal. No asterixis. No tremor noted. Skin: warm, dry, no rashes PSYCH: pleasant and cooperative. She is less anxious than I noted yesterday. Laboratory Results Last 24 Hours Test 08/24/16 10:29 08/24/16 11:23 08/24/16 15:43 08/24/16 20:20 Total Creatine Kinase 151 U/L Creatine Kinase MB 1.5 ng/ml Creatine Kinase MB Ratio 1.0 Troponin I 0.207 ng/ml Bedside Glucose 176 mg/dl 274 mg/dl 284 mg/dl Test 08/24/16 23:45 08/24/16 23:56 08/25/16 04:02 08/25/16 05:20 Urine Color ORANGE Urine Appearance CLEAR Urine pH 5.5 Urine Specific [place] 1.033 Urine Protein NEG Urine Glucose (UA) 3+ Urine Ketones TRACE Urine Occult Blood 3+ Urine Nitrite NEG Urine Bilirubin NEG Urine Urobilinogen NEG Urine Leukocyte Esterase NEG Urine WBC (Auto) 1-5 /hpf Urine RBC (Auto) >30 /hpf Urine Hyaline Casts (Auto) 1-5 /lpf Urine Epithelial Cells (Auto) 5-10 /lpf Urine Bacteria (Auto) NEG Bedside Glucose 243 mg/dl 203 mg/dl White Blood Count 13.89 K/uL Red Blood Count 4.29 M/uL Hemoglobin 13.2 g/dL Hematocrit 38.8 % Mean Corpuscular Volume 90.4 fL Mean Corpuscular Hemoglobin 30.8 pg Mean Corpuscular Hemoglobin Concent 34.0 g/dl Platelet Count 308 K/uL Mean Platelet Volume 10.2 fL Neutrophils (%) (Auto) 89.7 % Lymphocytes (%) (Auto) 7.9 % Monocytes (%) (Auto) 1.7 % Eosinophils (%) (Auto) 0.0 % Basophils (%) (Auto) 0.1 % Neutrophils # (Auto) 12.46 K/uL Lymphocytes # (Auto) 1.10 K/uL Monocytes # (Auto) 0.24 K/uL Eosinophils # (Auto) 0.00 K/uL Basophils # (Auto) 0.01 K/uL RDW Standard Deviation 50.4 fL RDW Coefficient of Variation 15.2 % Immature Granulocyte % (Auto) 0.6 % Immature Granulocyte # (Auto) 0.08 K/uL Sodium Level 131 mmol/L Potassium Level 4.2 mmol/L Chloride Level 98 mmol/L Carbon Dioxide Level 26 mmol/L Anion Gap 7.0 mmol/L Blood Urea Nitrogen 14 mg/dl Creatinine 0.79 mg/dl Est Creatinine Clear Calc Drug Dose 118.3 ml/min Estimated GFR () 100.5 Estimated GFR (Non- 86.7 BUN/Creatinine Ratio 17.2 Random Glucose 215 mg/dl Calcium Level 9.0 mg/dl Total Bilirubin 0.4 mg/dl Aspartate Amino Transf (AST/SGOT) 12 U/L Alanine Aminotransferase (ALT/SGPT) 51 U/L Alkaline Phosphatase 158 U/L Total Protein 7.7 gm/dl Albumin 3.1 gm/dl Globulin 4.6 gm/dl Albumin/Globulin Ratio 0.7 Test 08/25/16 06:45 Bedside Glucose 210 mg/dl Assessment and Plan 1) Hematuria - I covered her for UTI with Levaquin, but could be effect of Eliquis with some degree of self anticoagulation with heavy ETOH use. 2) ETOH withdrawal - continue gabapentin and prn ativan. As noted in the subjective section, the patient reports feeling calm and relaxed which she feels for now is a "positive thing for her". 3) COPD exacerbation -cont IV Solu-medrol, nebs, supplemental oxygen. Levaquin added today for uti, but will cover lung as well. 4) Type II DM - Pharmacist managing and for this patient I consider mid 200's after steroid loading dose a huge success. This patient can quickly get to 400' s. 5) Costochondritis - No reproducible sternal pain today. 6) A.fib - rate controlled on usual oral meds (Cardizem and Toprol XL). Eliquis for anticoagulation. 7) Mental illness - Appreciated psych evaluation and input. I have not restarted the patients Trazadone or chlordiazepoxide. These were held initially due to intoxication. I have continued to hold as I started the patient on gabapentin and prn ativan. I would ask psychiatry to direct restart of these products. DVT prophylaxis TEDs, SCDs and Eliquis will cover.
[2016-08-25] MEDS: LEVOFLOXACIN / D5W 500 MG in PREMIXED IN D5W 100 ML IV SCH (10:44)
--- NOTE | 2016-08-25 12:53 | Pharmacy Progress Note ---
Glycemic Control: Progress Nt Date of Service Aug 25, 2016. Scope Glycemic Pharmacist consulted by Dr Asher on 08/24/16 for glycemic control and to write orders per [facility] inpatient glycemic control protocol. Objective Accuchecks BSG (last 24hrs): Test 08/24/16 15:43 08/24/16 20:20 08/24/16 23:56 08/25/16 04:02 Bedside Glucose 274 mg/dl (70-90) 284 mg/dl (70-90) 243 mg/dl (70-90) 203 mg/dl (70-90) Test 08/25/16 05:20 08/25/16 06:45 08/25/16 11:02 Random Glucose 215 mg/dl (70-99) Bedside Glucose 210 mg/dl (70-90) 261 mg/dl (70-90) Laboratory Data (last 24hrs) Test 08/25/16 05:20 Anion Gap 7.0 mmol/L BUN/Creatinine Ratio 17.2 Blood Urea Nitrogen 14 mg/dl Creatinine 0.79 mg/dl Potassium Level 4.2 mmol/L Sodium Level 131 mmol/L White Blood Count 13.89 K/uL Red Blood Count 4.29 M/uL Hemoglobin 13.2 g/dL Hematocrit 38.8 % Mean Corpuscular Volume 90.4 fL Mean Corpuscular Hemoglobin 30.8 pg Mean Corpuscular Hemoglobin Concent 34.0 g/dl Platelet Count 308 K/uL Mean Platelet Volume 10.2 fL Neutrophils (%) (Auto) 89.7 % Lymphocytes (%) (Auto) 7.9 % Monocytes (%) (Auto) 1.7 % Eosinophils (%) (Auto) 0.0 % Basophils (%) (Auto) 0.1 % Neutrophils # (Auto) 12.46 K/uL Lymphocytes # (Auto) 1.10 K/uL Monocytes # (Auto) 0.24 K/uL Eosinophils # (Auto) 0.00 K/uL Basophils # (Auto) 0.01 K/uL HbA1c: Item Value Date Time Hemoglobin A1c 8.8 % H 04/15/16 0755 Recent Pertinent Medications Outpatient Anti-diabetic Regimen: * Lantus 40 units HS * Novolog 8 units with meals * New A1c pending Risk Factors for Insulin Resistance: * Steroids: Solumedrol 125 mg IV X 1, followed by 40 mg IV every 6 hours * Diet: T2DM, AHA * Alcohol withdrawal Assessment & Plan ASSESSMENT: 08/24/16 * 50 yo T2DM F admitted with AMS secondary to alcohol, currently in telemetry unit on alcohol withdrawal protocol * BSGs have been stable since admission last evening, but I do not believe this will continue * Pt has been initiated on high dose IV steroids this afternoon, which from past admissions, we know will cause her to have severe steroid-induced hyperglycemia * When on IV steroids, BSGs are typically >300 mg/dL with double outpatient Lantus dosing and very tight Novolog coverage * I will initiate aggressive regimen tonight, and have glycemic pharmacist follow her closely through the evening * Start with weight-based dosing and stress of 3, reassess throughout the evening * Spoke with MD, low threshold for insulin drip * IF BSGs trend >350 mg/dL consistently, recommend insulin infusion * ADA & AACE recommend a goal blood sugar range 140-180 mg/dl for the majority of critically ill & non-critically ill patients. However, more stringent targets may be selected in individual cases. Per past admission data on steroids , tighten goal to 100-140 mg/dL 08/25/16 * After initiating aggressive basal/bolus regimen yesterday, BSGs have not risen >300 mg/dL * BSGs, however, do remain in the 200's so I will further tighten her carb ratio to give an additional 5-7 units with meals * Continue additional checks overnight while steroids are q6 hrs to stay on top of hyperglycemia * The basal insulin scale I have ordered is very aggressive but warranted based on prior admission data when patient is on ATC IV steroids - it will be imperative to titrate down with each step in steroids PLAN FOR INPATIENT GLYCEMIC CONTROL: * Basal insulin with LANTUS BID based on BSGs * IF BSG <140 mg/dL--> give 25 units * IF BSG 141-180 mg/dL--> give 35 units * IF BSG >181 mg/dL--> give 45 units * Correctional Insulin with NOVOLOG per scale ACHS or Q6hrs while NPO + 00,04 checks * Goal Range: Low 100 mg/dL - High 140 mg/dL * Correction Factor: 10 mg/dL/unit * Nutritional / Prandial insulin per carb ratio of 1 unit per 3 grams CHO consumed * A1c ordered IF BSGs sustain >350 mg/dL, recommend insulin infusion * Start IV insulin infusion per moderate stress protocol * Goal Range 140 - 180 mg/dl * In the critical care setting, continuous IV insulin infusion has been shown to be the best method for achieving glycemic targets. * Please note that the plan above was derived based on current level of insulin resistance and hospital stress. These recommendations are appropriate for inpatient admission only. Plan of care upon discharge will need to be reassessed to avoid potential outpatient hypo/hyperglycemia. Thank you.
[2016-08-25] MEDS: GABAPENTIN 600MG Q8H DOSE PO SCH ×2 (14:03→21:35)
[2016-08-25] MEDS: SENNA 8.6 MG TAB PO SCH (21:17)
[2016-08-25] MEDS: AMITRIPTYLINE HCL 25 MG TAB PO SCH (21:19)
[2016-08-25] MEDS: CLONIDINE HCL 0.1 MG TAB PO SCH (21:19)
[2016-08-26] VITALS (8 sets, daily range): BP systolic 144–161; BP diastolic 72–103; PULSE 62–78; TEMP 36.5–37.1; O2SAT 92–97; Ht 167.6 cm; Wt 134.4 kg
[2016-08-26] MEDS: METHYLPREDNISOLONE IV 40 MG in SYRINGE 0 ML IV SCH ×3 (01:54→15:14)
[2016-08-26] MEDS: INSULIN ASPART 100 UNITS/ML 3 ML PEN SC SCH ×5 (04:18→20:49)
[2016-08-26] MEDS: LORAZEPAM 2 MG/ML 1 ML VIAL IV PRN ×2 (04:27→08:49)
[2016-08-26] MEDS: HYDROCODONE/ACETAMOPHEN 5/325MG TAB PO PRN ×4 (04:27→20:44)
[2016-08-26] MEDS: GABAPENTIN 600MG Q8H DOSE PO SCH (05:34)
[2016-08-26 05:43] LABS: COMPLETE YES; HEMATOCRIT 33.4 % (37-47); IG% 0.5 %; LYMPH % 5.1 %; LYMPH ABS # 0.88 K/uL (1.2-3.4); MEAN CELL VOLUME 89.8 fL (80-100); MEAN CORPUSCULAR HEMOGLOBIN 30.9 pg (25-34); MEAN CORPUSCULAR HGB CONC 34.4 g/dl (32-36); MEAN PLATELET VOLUME 9.7 fL (7.4-10.4); MONO % 2.9 %; NEUT % 91.5 %; PLATELET COUNT 260 K/uL (130-400); RED BLOOD COUNT 3.72 M/uL (4.2-5.4); WHITE BLOOD COUNT 17.39 K/uL (4.8-10.8)
[2016-08-26 06:07] LABS: ALT/SGPT 37 U/L (12-78); AST/SGOT < 3 U/L (15-37); BLOOD UREA NITROGEN 13 mg/dl (7-18); BUN/CREATININE RATIO 16.9 (10-20); CALCIUM 8.6 mg/dl (8.5-10.1); CARBON DIOXIDE 28 mmol/L (21-32); CHLORIDE 100 mmol/L (98-107); CREATININE 0.77 mg/dl (0.60-1.20); GLUCOSE 241 mg/dl (70-99); POTASSIUM 4.5 mmol/L (3.5-5.1); SODIUM 136 mmol/L (136-145)
[2016-08-26 06:10] LABS: ALB/GLOB RATIO 0.8 (0.9-2); ALKALINE PHOSPHATASE 124 U/L (45-117)
[2016-08-26 07:02] LABS: ESTIMATED AVERAGE GLUCOSE 192 mg/dl; HA1C FLAG Normal (Normal)
[2016-08-26] MEDS: ALBUT/IPRATROP 3MG/0.5MG NEB 3 ML VIAL INH SCH ×4 (07:06→19:14)
[2016-08-26] MEDS: RANITIDINE HCL 150 MG TAB PO SCH ×2 (08:50→20:45)
[2016-08-26] MEDS: METOPROLOL SUCC 50MG EXT REL TAB PO SCH ×2 (08:50→20:45)
[2016-08-26] MEDS: ASPIRIN 81 MG ECTAB PO SCH (08:50)
[2016-08-26] MEDS: POTASSIUM CHLORIDE 20 MEQ TABCR PO SCH (08:51)
[2016-08-26] MEDS: PANTOprazole SOD 40 MG TAB PO SCH (08:51)
[2016-08-26] MEDS: LOSARTAN POTASSIUM 50 MG TAB PO SCH (08:51)
[2016-08-26] MEDS: DILTIAZEM HCL 300 MG CAPCR PO SCH (08:51)
[2016-08-26] MEDS: VENLAFAXINE HCL XR 75 MG CAPXR PO SCH (08:51)
[2016-08-26] MEDS: APIXABAN 2.5 MG TAB PO SCH ×2 (08:52→20:44)
[2016-08-26] MEDS: CLONIDINE HCL 0.1 MG TAB PO SCH ×2 (08:52→20:45)
[2016-08-26] MEDS: FUROSEMIDE 40 MG TAB PO SCH (08:52)
[2016-08-26] MEDS: INSULIN GLARGINE SOLOSTAR 100 UNITS/ML 3 ML PEN SQ SCH (08:57)
[2016-08-26] MEDS: LEVOFLOXACIN / D5W 500 MG in PREMIXED IN D5W 100 ML IV SCH (09:02)
--- NOTE | 2016-08-26 11:44 | Pharmacy Progress Note ---
Glycemic Control: Progress Nt Date of Service Aug 26, 2016. Scope Glycemic Pharmacist consulted by Dr Asher on 08/24/16 for glycemic control and to write orders per [facility] inpatient glycemic control protocol. Objective Accuchecks BSG (last 24hrs): Test 08/25/16 16:19 08/25/16 20:05 08/25/16 23:27 08/26/16 04:17 Bedside Glucose 286 mg/dl (70-90) 255 mg/dl (70-90) 346 mg/dl (70-90) 245 mg/dl (70-90) Test 08/26/16 05:15 08/26/16 06:31 08/26/16 11:18 Random Glucose 241 mg/dl (70-99) Bedside Glucose 287 mg/dl (70-90) 226 mg/dl (70-90) Laboratory Data (last 24hrs) Test 08/26/16 05:15 Anion Gap 8.0 mmol/L BUN/Creatinine Ratio 16.9 Blood Urea Nitrogen 13 mg/dl Creatinine 0.77 mg/dl Hemoglobin A1c 8.3 % Potassium Level 4.5 mmol/L Sodium Level 136 mmol/L White Blood Count 17.39 K/uL Red Blood Count 3.72 M/uL Hemoglobin 11.5 g/dL Hematocrit 33.4 % Mean Corpuscular Volume 89.8 fL Mean Corpuscular Hemoglobin 30.9 pg Mean Corpuscular Hemoglobin Concent 34.4 g/dl Platelet Count 260 K/uL Mean Platelet Volume 9.7 fL Neutrophils (%) (Auto) 91.5 % Lymphocytes (%) (Auto) 5.1 % Monocytes (%) (Auto) 2.9 % Eosinophils (%) (Auto) 0.0 % Basophils (%) (Auto) 0.0 % Neutrophils # (Auto) 15.91 K/uL Lymphocytes # (Auto) 0.88 K/uL Monocytes # (Auto) 0.51 K/uL Eosinophils # (Auto) 0.00 K/uL Basophils # (Auto) 0.00 K/uL HbA1c: Test 08/26/16 05:15 Hemoglobin A1c 8.3 % (4.5-5.6) H Recent Pertinent Medications Outpatient Anti-diabetic Regimen: * Lantus 40 units SQ HS * NovoLog 8 units TID with meals * A1c = 8.3 % 07/2016 The patient is currently receiving: * Basal insulin: Lantus 45 units every 12 hours * Correctional Insulin: NovoLog Correction per scale AC+HS+00+04 Goal Range: Low 100 mg/dL - High 140 mg/dL Correction Factor: 10 mg/dL/unit * Prandial insulin: Per carb ratio of 1 unit per 3 grams CHO consumed Risk Factors for Insulin Resistance: * Steroids: Solu- Medrol 40mg IV every 6 hours * Infection: Levofloxacin IV * Diet: T2DM/AHA Assessment & Plan ASSESSMENT: 08/24/16 * 50 yo T2DM F admitted with AMS secondary to alcohol, currently in telemetry unit on alcohol withdrawal protocol * BSGs have been stable since admission last evening, but I do not believe this will continue * Pt has been initiated on high dose IV steroids this afternoon, which from past admissions, we know will cause her to have severe steroid-induced hyperglycemia * When on IV steroids, BSGs are typically >300 mg/dL with double outpatient Lantus dosing and very tight Novolog coverage * I will initiate aggressive regimen tonight, and have glycemic pharmacist follow her closely through the evening * Start with weight-based dosing and stress of 3, reassess throughout the evening * Spoke with MD, low threshold for insulin drip * IF BSGs trend >350 mg/dL consistently, recommend insulin infusion * ADA & AACE recommend a goal blood sugar range 140-180 mg/dl for the majority of critically ill & non-critically ill patients. However, more stringent targets may be selected in individual cases. Per past admission data on steroids , tighten goal to 100-140 mg/dL 08/25/16 * After initiating aggressive basal/bolus regimen yesterday, BSGs have not risen >300 mg/dL * BSGs, however, do remain in the 200's so I will further tighten her carb ratio to give an additional 5-7 units with meals * Continue additional checks overnight while steroids are q6 hrs to stay on top of hyperglycemia * The basal insulin scale I have ordered is very aggressive but warranted based on prior admission data when patient is on ATC IV steroids - it will be imperative to titrate down with each step in steroids 08/26/16 * BSGs continued to be elevated despite aggressive insulin regimen - continue to titrate based on response * Tighten NovoLog parameters and monitor results. * Currently, we are seeing a 50/50 split in basal and prandial insulins which is usually desired, however I'd like to see more prandial NovoLog being used to combat the steroid induced hyperglycemia * A1c current PLAN FOR INPATIENT GLYCEMIC CONTROL: * Basal insulin with LANTUS BID based on BSGs * IF BSG <140 mg/dL--> give 25 units * IF BSG 141-180 mg/dL--> give 35 units * IF BSG >181 mg/dL--> give 45 units * Correctional Insulin with NOVOLOG per scale ACHS or Q6hrs while NPO + 00,04 checks * Goal Range: Low 100 mg/dL - High 140 mg/dL * Correction Factor: 8 mg/dL/unit * Nutritional / Prandial insulin per carb ratio of 1 unit per 2.5 grams CHO consumed * A1c added to discharge instructions IF BSGs sustain >350 mg/dL, recommend insulin infusion * Start IV insulin infusion per moderate stress protocol * Goal Range 140 - 180 mg/dl * In the critical care setting, continuous IV insulin infusion has been shown to be the best method for achieving glycemic targets. * Please note that the plan above was derived based on current level of insulin resistance and hospital stress. These recommendations are appropriate for inpatient admission only. Plan of care upon discharge will need to be reassessed to avoid potential outpatient hypo/hyperglycemia. Thank you.
--- NOTE | 2016-08-26 12:31 | Psychiatric Progress Notes ---
Psychiatric Progress Note Date of Service Aug 26, 2016. Notes ID: Patient reviewed with liaison nurse. Initial consult completed 08/24/[address] Isaacs. Patient well known to me from multiple psych and medical admissions. Discharged home last stay as no rehab would accept patient given medical issues related to NSTEMI at time. Patient relapsed on ETOH and other substance use and is still seeking rehab. CC: "I'm not signing anything as you all told them not to give me Ativan" HPI: patient not particularly cooperative this am, slurring speech from medications. She currently denies that she asked to resume Trilafon and is only focussed on Ativan. ROS: c/o jitteriness and fatigue, later said just foggy MSE: sedated, irritable, thoughts concrete but organized, denies abdi and CHUCKY, only paranoia related to not wanting outpatient providers to find out about substance use Imp: schizoaffective do, polysubstance dependence Plan: needs inpatient D&A rehab, no current indication for inpatient psychiatric admission she is currently refusing medication changes, mild sedation likely Neurontin but appropriate as per hospital protocol minimize benzos given substance use hx note since won't sign releases for outpatient providers, queried [employer] data base. No Ativan scripts since November so no access at home. Lonetree filled monthly. Did fill libirum taper from Dr. Arrington on 08/18.
[2016-08-26] MEDS: GABAPENTIN 600MG Q12H DOSE PO SCH (17:09)
--- NOTE | 2016-08-26 19:14 | Hospitalist Progress Note ---
Hospitalist Progress Note Date of Service Aug 26, 2016. Subjective Pt evaluation today including: conversation w/ patient, physical exam, chart review, lab review, review of inpatient medication list Drowsy, c/o dry mouth, sleeping all day, no events on tele All Other Systems: Reviewed and Negative Objective Vital Signs Date Time Temp Pulse Resp B/P Pulse Ox O2 Delivery O2 Flow Rate FiO2 08/26/16 16:00 Room Air 08/26/16 15:20 36.5 70 20 146/95 92 Room Air 08/26/16 15:10 71 18 93 Room Air 08/26/16 12:00 Room Air 08/26/16 11:21 37.1 78 20 149/103 97 Room Air 08/26/16 11:21 78 18 95 Room Air 08/26/16 08:00 Room Air 08/26/16 07:39 36.7 78 22 152/103 96 Room Air 08/26/16 07:06 73 18 97 Room Air 08/26/16 04:20 36.8 62 20 144/90 97 Room Air 08/26/16 04:00 Room Air 08/25/16 23:59 Room Air 08/25/16 23:45 36.8 72 18 144/85 93 Room Air 08/25/16 21:15 72 122/74 08/25/16 20:34 94 Room Air 08/25/16 20:06 67 18 93 Room Air 08/25/16 19:31 36.9 78 19 166/87 94 Room Air Physical Exam General Appearance: WD/WN, no apparent distress, + obese Eyes: normal inspection, sclerae normal ENT: hearing grossly normal Neck: trachea midline Respiratory/Chest: no respiratory distress, no accessory muscle use, + wheezing (occasional faint exp wheeze) Cardiovascular: regular rate, rhythm, no edema, no gallop, no murmur Abdomen: normal bowel sounds, non tender, soft (and obese) Extremities: non-tender, normal inspection, no pedal edema, no calf tenderness Neurologic/Psychiatric: + pertinent finding (drowsy but wakes up and answers all questions appropriately) Laboratory Results Last 24 Hours Test 08/25/16 20:05 08/25/16 23:27 08/26/16 04:17 08/26/16 05:15 Bedside Glucose 255 mg/dl 346 mg/dl 245 mg/dl White Blood Count 17.39 K/uL Red Blood Count 3.72 M/uL Hemoglobin 11.5 g/dL Hematocrit 33.4 % Mean Corpuscular Volume 89.8 fL Mean Corpuscular Hemoglobin 30.9 pg Mean Corpuscular Hemoglobin Concent 34.4 g/dl Platelet Count 260 K/uL Mean Platelet Volume 9.7 fL Neutrophils (%) (Auto) 91.5 % Lymphocytes (%) (Auto) 5.1 % Monocytes (%) (Auto) 2.9 % Eosinophils (%) (Auto) 0.0 % Basophils (%) (Auto) 0.0 % Neutrophils # (Auto) 15.91 K/uL Lymphocytes # (Auto) 0.88 K/uL Monocytes # (Auto) 0.51 K/uL Eosinophils # (Auto) 0.00 K/uL Basophils # (Auto) 0.00 K/uL RDW Standard Deviation 50.6 fL RDW Coefficient of Variation 15.4 % Immature Granulocyte % (Auto) 0.5 % Immature Granulocyte # (Auto) 0.09 K/uL Sodium Level 136 mmol/L Potassium Level 4.5 mmol/L Chloride Level 100 mmol/L Carbon Dioxide Level 28 mmol/L Anion Gap 8.0 mmol/L Blood Urea Nitrogen 13 mg/dl Creatinine 0.77 mg/dl Est Creatinine Clear Calc Drug Dose 119.7 ml/min Estimated GFR () 103.6 Estimated GFR (Non- 89.4 BUN/Creatinine Ratio 16.9 Random Glucose 241 mg/dl Estimated Average Glucose 192 mg/dl Hemoglobin A1c 8.3 % Calcium Level 8.6 mg/dl Total Bilirubin 0.3 mg/dl Aspartate Amino Transf (AST/SGOT) < 3 U/L Alanine Aminotransferase (ALT/SGPT) 37 U/L Alkaline Phosphatase 124 U/L Total Protein 6.5 gm/dl Albumin 2.9 gm/dl Globulin 3.6 gm/dl Albumin/Globulin Ratio 0.8 Test 08/26/16 06:31 08/26/16 11:18 08/26/16 16:05 Bedside Glucose 287 mg/dl 226 mg/dl 122 mg/dl Assessment and Plan 50-year-old female with a long-standing cardiac history, COPD, oxygen dependent at night for ELIZABETH, long-standing history of noncompliance and psychiatric d/o. Presented to the emergency department with altered mental status secondary to drug and alcohol use. Tested positive for cocaine, benzodiazepines and elevated EtOH of 212 Altered mental status likely secondary to multidrug abuse as noted above, EtOH dependence, Cocaine abuse, uses prescribed hydrocodone for chronic pain. Respiratory acidosis-secondary to chronic COPD and most likely depressed respiratory drive-now improved clinically, on gabapentin and clonidine for taper down, avoiding benzos if possible -transfer to med/surgery floor -Psych consult appreciated--> no changes in meds as pt declines and no indication for inaptiejnt Psych admission -Continue O2 nocturnally Elevated Trop, which is chronic.Chest pain last admission secondary to cocaine and seen by Cardiology, no ischemic eval deemed necessary, recommended to abstain from cocaine ECG without ischemic changes and serial trops stable, no NSTEMI A. fib-in sinus rhythm here -Continue Eliquis 5 mg BID -continue Diltiazem ER 300 mg QAM -Continue metoprolol ER 100 mg BID, ASA 81 mg daily COPD -Continue O2 nocturnally -Duo nebs every 6 hours scheduled and as needed every 2 hrs -taper steroids back to po prednisone taper -Continue Breo Anxiety/schizoaffective disorder -Continue Effexor, amitriptyline -Hold trazodone due to obvious intoxication and drowsiness from gabapentin and clonidine -Will need psychiatric follow-up DM II -continue lantus and adjust as per pharmacy -insulin sliding scale -accuchecks q 6 hr Hematuria - covered for UTI with Levaquin, but could be effect of Eliquis with some degree of self anticoagulation with heavy ETOH use. DVT prophylaxis -eliquis -TEDS, SCDs
[2016-08-26] MEDS ORDERED: INSULIN GLARGINE SOLOSTAR 100 UNITS/ML 3 ML PEN SQ ONE (20:30)
[2016-08-26] MEDS: SENNA 8.6 MG TAB PO SCH (20:45)
[2016-08-26] MEDS: AMITRIPTYLINE HCL 25 MG TAB PO SCH (20:46)
[2016-08-26] MEDS: LORAZEPAM INJ 1 MG in SYRINGE 0.5 ML IV PRN (21:53)
[2016-08-27] VITALS (10 sets, daily range): BP systolic 113–155; BP diastolic 71–95; PULSE 47–87; TEMP 36.4–37.1; O2SAT 93–98
[2016-08-27] MEDS: INSULIN ASPART 100 UNITS/ML 3 ML PEN SC SCH ×6 (00:15→21:10)
[2016-08-27] MEDS: HYDROCODONE/ACETAMOPHEN 5/325MG TAB PO PRN ×4 (04:20→20:22)
[2016-08-27] MEDS: GABAPENTIN 600MG Q12H DOSE PO SCH (06:13)
[2016-08-27] MEDS: ALBUT/IPRATROP 3MG/0.5MG NEB 3 ML VIAL INH SCH ×4 (07:11→19:39)
[2016-08-27 07:30] LABS: BASO % 0.1 %; BASO ABS # 0.01 K/uL (0-0.2); COMPLETE YES; HEMATOCRIT 34.7 % (37-47); IG% 0.7 %; LYMPH % 8.6 %; MEAN CELL VOLUME 92.5 fL (80-100); MEAN CORPUSCULAR HEMOGLOBIN 30.9 pg (25-34); MEAN CORPUSCULAR HGB CONC 33.4 g/dl (32-36); MEAN PLATELET VOLUME 10.2 fL (7.4-10.4); NEUT % 84.6 %; PLATELET COUNT 279 K/uL (130-400); RED BLOOD COUNT 3.75 M/uL (4.2-5.4); WHITE BLOOD COUNT 17.52 K/uL (4.8-10.8)
[2016-08-27] MEDS: PANTOprazole SOD 40 MG TAB PO SCH (07:43)
[2016-08-27] MEDS: VENLAFAXINE HCL XR 75 MG CAPXR PO SCH (07:44)
[2016-08-27] MEDS: APIXABAN 2.5 MG TAB PO SCH ×2 (07:44→21:03)
[2016-08-27] MEDS: RANITIDINE HCL 150 MG TAB PO SCH ×2 (07:44→21:03)
[2016-08-27] MEDS: CLONIDINE HCL 0.1 MG TAB PO SCH ×2 (07:45→21:01)
[2016-08-27] MEDS: FUROSEMIDE 40 MG TAB PO SCH (07:45)
[2016-08-27] MEDS: LOSARTAN POTASSIUM 50 MG TAB PO SCH (07:45)
[2016-08-27] MEDS: ASPIRIN 81 MG ECTAB PO SCH (07:46)
[2016-08-27] MEDS: METOPROLOL SUCC 50MG EXT REL TAB PO SCH ×2 (07:46→21:02)
[2016-08-27] MEDS: POTASSIUM CHLORIDE 20 MEQ TABCR PO SCH (07:46)
[2016-08-27] MEDS: DILTIAZEM HCL 300 MG CAPCR PO SCH (07:48)
[2016-08-27 08:07] LABS: ALB/GLOB RATIO 0.8 (0.9-2); BUN/CREATININE RATIO 19.3 (10-20); CALCIUM 8.5 mg/dl (8.5-10.1); CREATININE 0.81 mg/dl (0.60-1.20); MAGNESIUM 2.4 mg/dl (1.8-2.4); POTASSIUM 3.9 mmol/L (3.5-5.1)
[2016-08-27] MEDS: LORAZEPAM INJ 1 MG in SYRINGE 0.5 ML IV PRN ×2 (09:39→14:32)
[2016-08-27] MEDS: LEVOFLOXACIN / D5W 500 MG in PREMIXED IN D5W 100 ML IV SCH (09:41)
--- NOTE | 2016-08-27 12:18 | Pharmacy Progress Note ---
Glycemic Control: Progress Nt Date of Service Aug 27, 2016. Scope Glycemic Pharmacist consulted by Dr Asher on 08/24/16 for glycemic control and to write orders per [facility] inpatient glycemic control protocol. Objective Accuchecks BSG (last 24hrs): Test 08/26/16 16:05 08/26/16 19:53 08/27/16 00:11 08/27/16 04:08 Bedside Glucose 122 mg/dl (70-90) 222 mg/dl (70-90) 279 mg/dl (70-90) 185 mg/dl (70-90) Test 08/27/16 06:35 08/27/16 07:38 08/27/16 11:29 Random Glucose 176 mg/dl (70-99) Bedside Glucose 145 mg/dl (70-90) 112 mg/dl (70-90) Laboratory Data (last 24hrs) Test 08/27/16 06:35 Anion Gap 9.0 mmol/L BUN/Creatinine Ratio 19.3 Blood Urea Nitrogen 16 mg/dl Creatinine 0.81 mg/dl Potassium Level 3.9 mmol/L Sodium Level 137 mmol/L White Blood Count 17.52 K/uL Red Blood Count 3.75 M/uL Hemoglobin 11.6 g/dL Hematocrit 34.7 % Mean Corpuscular Volume 92.5 fL Mean Corpuscular Hemoglobin 30.9 pg Mean Corpuscular Hemoglobin Concent 33.4 g/dl Platelet Count 279 K/uL Mean Platelet Volume 10.2 fL Neutrophils (%) (Auto) 84.6 % Lymphocytes (%) (Auto) 8.6 % Monocytes (%) (Auto) 6.0 % Eosinophils (%) (Auto) 0.0 % Basophils (%) (Auto) 0.1 % Neutrophils # (Auto) 14.83 K/uL Lymphocytes # (Auto) 1.50 K/uL Monocytes # (Auto) 1.05 K/uL Eosinophils # (Auto) 0.00 K/uL Basophils # (Auto) 0.01 K/uL HbA1c: Test 08/26/16 05:15 Hemoglobin A1c 8.3 % (4.5-5.6) H Recent Pertinent Medications Outpatient Anti-diabetic Regimen: * Lantus 40 units SQ HS * NovoLog 8 units TID with meals * A1c = 8.3 % 07/2016 The patient is currently receiving: * Basal insulin: Lantus 45 units 08/26 AM, then 20 units 08/26 PM * Correctional Insulin: NovoLog Correction per scale AC+HS+00+04 Goal Range: Low 100 mg/dL - High 140 mg/dL Correction Factor: 10 mg/dL/unit * Prandial insulin: Per carb ratio of 1 unit per 3 grams CHO consumed Risk Factors for Insulin Resistance: * Steroids: Solu- Medrol 40mg IV every 6 hours --> Prednisone 60mg PO daily * Infection: Levofloxacin IV --> PO * Diet: T2DM/AHA Assessment & Plan ASSESSMENT: 08/24/16 * 50 yo T2DM F admitted with AMS secondary to alcohol, currently in telemetry unit on alcohol withdrawal protocol * BSGs have been stable since admission last evening, but I do not believe this will continue * Pt has been initiated on high dose IV steroids this afternoon, which from past admissions, we know will cause her to have severe steroid-induced hyperglycemia * When on IV steroids, BSGs are typically >300 mg/dL with double outpatient Lantus dosing and very tight Novolog coverage * I will initiate aggressive regimen tonight, and have glycemic pharmacist follow her closely through the evening * Start with weight-based dosing and stress of 3, reassess throughout the evening * Spoke with MD, low threshold for insulin drip * IF BSGs trend >350 mg/dL consistently, recommend insulin infusion * ADA & AACE recommend a goal blood sugar range 140-180 mg/dl for the majority of critically ill & non-critically ill patients. However, more stringent targets may be selected in individual cases. Per past admission data on steroids , tighten goal to 100-140 mg/dL 08/25/16 * After initiating aggressive basal/bolus regimen yesterday, BSGs have not risen >300 mg/dL * BSGs, however, do remain in the 200's so I will further tighten her carb ratio to give an additional 5-7 units with meals * Continue additional checks overnight while steroids are q6 hrs to stay on top of hyperglycemia * The basal insulin scale I have ordered is very aggressive but warranted based on prior admission data when patient is on ATC IV steroids - it will be imperative to titrate down with each step in steroids 08/26/16 * BSGs continued to be elevated despite aggressive insulin regimen - continue to titrate based on response * Tighten NovoLog parameters and monitor results. * Currently, we are seeing a 50/50 split in basal and prandial insulins which is usually desired, however I'd like to see more prandial NovoLog being used to combat the steroid induced hyperglycemia * A1c current 08/27/16 * Solu-Medrol has been changed to prednisone 60mg PO daily * empirically decreased last night's Lantus dose and omit this AM Lantus * begin to titrate back to home Lantus regimen (qPM dosing only) * Loosen CF/CR this AM --> pre-lunch BSG near lower end of goal range PLAN FOR INPATIENT GLYCEMIC CONTROL: * Hold Lantus this AM * Change Lantus to 40 units SQ q PM * give 1/2 dose if BSG is below 110mg/dL * Correctional Insulin with NOVOLOG per scale ACHS or Q6hrs while NPO * Goal Range: Low 110 mg/dL - High 140 mg/dL * Correction Factor: 15 mg/dL/unit * Nutritional / Prandial insulin per carb ratio of 1 unit per 5 grams CHO consumed * A1c added to discharge instructions * Please note that the plan above was derived based on current level of insulin resistance and hospital stress. These recommendations are appropriate for inpatient admission only. Plan of care upon discharge will need to be reassessed to avoid potential outpatient hypo/hyperglycemia. Thank you.
--- NOTE | 2016-08-27 14:30 | Hospitalist Progress Note ---
Hospitalist Progress Note Date of Service Aug 27, 2016. (Jerilyn Starkey ., CHANTEL) Subjective Pt evaluation today including: conversation w/ patient, physical exam, chart review, lab review, review of studies, review of inpatient medication list Voiding: no voiding problems, no incontinence Patient states she is not feeling well. All review of systems positive per patient. She is still interested in inpatient rehab. Patient does not appear to be in any acute distress. (Jerilyn Starkey ., CHANTEL) Medications Current Inpatient Medications Medications (Trade) Dose Ordered Sig/Lucien Route Start Time Stop Time Status Last Admin Dose Admin Acetaminophen (Tylenol Tab) 650 mg Q4H PRN PO 08/23/16 19:45 09/22/16 19:44 Ondansetron HCl (Zofran Inj) 4 mg Q6H PRN IV 08/23/16 19:45 09/22/16 19:44 Amitriptyline HCl (Elavil Tab) 50 mg HS PO 08/23/16 21:00 09/22/16 20:59 08/26/16 20:46 50 MG Aspirin (Ecotrin Tab) 81 mg QAM PO 08/24/16 09:00 09/23/16 08:59 08/27/16 07:46 81 MG Diltiazem HCl (Cardizem Cd Cap) 300 mg QAM PO 08/24/16 09:00 09/23/16 08:59 08/27/16 07:48 300 MG Furosemide (Lasix Tab) 40 mg QAM PO 08/24/16 09:00 09/23/16 08:59 08/27/16 07:45 40 MG Losartan Potassium (coZAAR TAB) 50 mg DAILY PO 08/24/16 09:00 09/23/16 08:59 08/27/16 07:45 50 MG Potassium Chloride (Klor-Con Tab) 20 meq DAILY PO 08/24/16 09:00 09/23/16 08:59 08/27/16 07:46 20 MEQ Ranitidine HCl (zANTac TAB) 150 mg BID PO 08/23/16 21:00 09/22/16 20:59 08/27/16 07:44 150 MG Valacyclovir HCl (Valtrex Tab) 500 mg QAM PO 08/24/16 09:00 09/03/16 08:59 08/27/16 07:44 500 MG Venlafaxine HCl (effeXOR EXTENDED REL CAP) 75 mg DAILY PO 08/24/16 09:00 09/23/16 08:59 08/27/16 07:44 75 MG Apixaban (Eliquis Tab) 5 mg BID PO 08/23/16 21:00 09/22/16 20:59 08/27/16 07:44 5 MG Miscellaneous Information (Order Awaiting Action) 1 ea QS N/A 08/24/16 08:00 09/23/16 07:59 Guaifenesin (Mucinex Contr Rel Tab) 1,200 mg BID PRN PO 08/23/16 19:45 09/22/16 19:44 Metoprolol Succinate (Toprol Xl Tab) 100 mg BID PO 08/23/16 21:00 09/22/16 20:59 08/27/16 07:46 100 MG Pantoprazole Sodium (Protonix Tab) 40 mg QAM PO 08/24/16 09:00 09/23/16 08:59 08/27/16 07:43 40 MG Insulin Aspart (novoLOG ASPART) SLIDING SCALE G... ACHS SC 08/23/16 21:00 09/22/16 20:59 08/27/16 12:05 12 UNITS Miscellaneous (Iv Fluids Completed) 1 ea PRN PRN N/A 08/23/16 21:30 08/23/17 21:29 Glucose (Glucose 40% Gel) 15-30 GRAMS 15 GRAMS... UD PRN PO 08/24/16 00:15 09/23/16 00:14 Glucose (Glucose Chew Tab) 4-8 Tablets 4 Tabl... UD PRN PO 08/24/16 00:15 09/23/16 00:14 Dextrose (Dextrose 50% 50ML Syringe) 25-50ML OF 50% DW IV FOR... UD PRN IV 08/24/16 00:15 09/23/16 00:14 Glucagon (Glucagon Inj) 1 mg UD PRN SQ 08/24/16 00:15 09/23/16 00:14 Acetaminophen/ Hydrocodone Bitart ([place] 5/325 Tab) 1 tab Q4H PRN PO 08/24/16 14:30 09/07/16 14:29 Acetaminophen/ Hydrocodone Bitart ([place] 5/325 Tab) 2 tab Q4H PRN PO 08/24/16 14:30 09/07/16 14:29 08/27/16 15:27 2 TAB Miscellaneous Information (Consult Glycemic Management Pharmacy) 1 ea UD PRN N/A 08/24/16 14:45 09/23/16 14:44 Albuterol/ Ipratropium (Duoneb) 3 ml QIDR INH 08/24/16 16:00 09/23/16 15:59 08/27/16 15:49 3 ML Senna (Senokot Tab) 17.2 mg QPM PO 08/24/16 21:00 09/23/16 20:59 08/26/16 20:45 17.2 MG Albuterol/ Ipratropium (Duoneb) 3 ml Q2H PRN INH 08/24/16 15:00 09/23/16 14:59 08/25/16 15:55 3 ML Gabapentin (Neurontin Tab) 600 mg Q24H PO 08/28/16 06:00 08/28/16 06:01 Hydralazine HCl (HydrALAZINE INJ) 10 mg Q4 PRN IV. 08/25/16 09:30 09/24/16 09:29 Clonidine HCl (Catapres Tab) 0.1 mg BID PO 08/25/16 21:00 09/24/16 20:59 08/27/16 07:45 0.1 MG Prednisone (PredniSONE TAB) 60 mg DAILY PO 08/27/16 09:00 09/26/16 08:59 08/27/16 07:47 60 MG Insulin Glargine (Lantus Solostar Pen) SEE PROTOCOL TEXT PM SQ 08/27/16 21:00 09/26/16 20:59 Lorazepam (Ativan Tab) 0.5 mg BID PRN PO 08/27/16 17:00 09/26/16 16:59 Magnesium Citrate (Citrate Of Magnesia Soln) 296 ml NOW ONCE PO 08/27/16 17:00 08/27/16 17:01 UNV (Jerilyn Starkey, CHANTEL) Objective Vital Signs Date Time Temp Pulse Resp B/P Pulse Ox O2 Delivery O2 Flow Rate FiO2 08/27/16 11:40 87 16 94 Room Air 08/27/16 08:00 Room Air 08/27/16 07:24 36.4 66 16 149/93 95 08/27/16 07:11 79 18 94 Room Air 08/27/16 04:26 37.1 70 18 113/71 94 Room Air 08/27/16 00:09 36.6 47 16 152/81 96 Nasal Cannula 2.0 08/27/16 00:00 Room Air 08/26/16 20:00 Room Air 08/26/16 19:31 36.9 65 15 161/72 96 Room Air 08/26/16 19:14 76 18 97 Room Air 08/26/16 16:00 Room Air 08/26/16 15:20 36.5 70 20 146/95 92 Room Air 08/26/16 15:10 71 18 93 Room Air (Jerilyn Starkey, PA-C) Physical Exam General Appearance: no apparent distress, + obese Eyes: normal inspection, PERRL ENT: hearing grossly normal Neck: supple Respiratory/Chest: no respiratory distress, no accessory muscle use, + wheezing (slight expiratory wheeze ) Cardiovascular: regular rate, rhythm Abdomen: normal bowel sounds, non tender, soft Extremities: no pedal edema, no calf tenderness Neurologic/Psychiatric: + depressed affect, + pertinent finding (dorwsy ) Skin: normal color, warm/dry, no rash (Jerilyn Starkey, PA-C) Laboratory Results Last 24 Hours Test 08/26/16 16:05 08/26/16 19:53 08/27/16 00:11 08/27/16 04:08 Bedside Glucose 122 mg/dl 222 mg/dl 279 mg/dl 185 mg/dl Test 08/27/16 06:35 08/27/16 07:38 08/27/16 11:29 White Blood Count 17.52 K/uL Red Blood Count 3.75 M/uL Hemoglobin 11.6 g/dL Hematocrit 34.7 % Mean Corpuscular Volume 92.5 fL Mean Corpuscular Hemoglobin 30.9 pg Mean Corpuscular Hemoglobin Concent 33.4 g/dl Platelet Count 279 K/uL Mean Platelet Volume 10.2 fL Neutrophils (%) (Auto) 84.6 % Lymphocytes (%) (Auto) 8.6 % Monocytes (%) (Auto) 6.0 % Eosinophils (%) (Auto) 0.0 % Basophils (%) (Auto) 0.1 % Neutrophils # (Auto) 14.83 K/uL Lymphocytes # (Auto) 1.50 K/uL Monocytes # (Auto) 1.05 K/uL Eosinophils # (Auto) 0.00 K/uL Basophils # (Auto) 0.01 K/uL RDW Standard Deviation 52.6 fL RDW Coefficient of Variation 15.6 % Immature Granulocyte % (Auto) 0.7 % Immature Granulocyte # (Auto) 0.13 K/uL Sodium Level 137 mmol/L Potassium Level 3.9 mmol/L Chloride Level 98 mmol/L Carbon Dioxide Level 30 mmol/L Anion Gap 9.0 mmol/L Blood Urea Nitrogen 16 mg/dl Creatinine 0.81 mg/dl Est Creatinine Clear Calc Drug Dose 115.9 ml/min Estimated GFR () 97.5 Estimated GFR (Non- 84.1 BUN/Creatinine Ratio 19.3 Random Glucose 176 mg/dl Calcium Level 8.5 mg/dl Magnesium Level 2.4 mg/dl Total Bilirubin 0.2 mg/dl Aspartate Amino Transf (AST/SGOT) 3 U/L Alanine Aminotransferase (ALT/SGPT) 32 U/L Alkaline Phosphatase 127 U/L Total Protein 6.7 gm/dl Albumin 3.0 gm/dl Globulin 3.7 gm/dl Albumin/Globulin Ratio 0.8 Bedside Glucose 145 mg/dl 112 mg/dl (Jerilyn Starkey, PA-C) Assessment and Plan 50-year-old female with a long-standing cardiac history, COPD, oxygen dependent at night for ELIZABETH, long-standing history of noncompliance and psychiatric d/o. Presented to the emergency department with altered mental status secondary to drug and alcohol use. Tested positive for cocaine, benzodiazepines and elevated EtOH of 212 Altered mental status likely secondary to multidrug abuse as noted above, EtOH dependence, cocaine abuse, uses prescribed hydrocodone for chronic pain: - Admit to tele for cardiac monitoring--> transfer to med/surgery floor on 08/26 - Psych consult appreciated--> no changes in medications, as pt declines and no indication for inpatient psych admission - Continue O2 nocturnally - Case management consulted--> patient is agreeable to inpatient D&A rehab - Ativan, Gabapentin and Clonidine wean for alcohol detox Elevated trop, chronic- ECG without ischemic changes and serial trops stable, no NSTEMI: - A. fib, in sinus rhythm - Continue Eliquis 5 mg BID - Continue Diltiazem ER 300 mg QAM - Continue Metoprolol ER 100 mg BID, ASA 81 mg daily COPD - Continue O2 nocturnally - Duo nebs every 6 hours scheduled and as needed every 2 hrs - Taper IV steroids to PO prednisone taper - Continue Breo Anxiety/schizoaffective disorder - Continue Effexor and Amitriptyline - Hold trazodone - Psychiatry following--> Will need psychiatric follow-up outpatient DM II - Pharmacy consulted for glycemic management - Lantus + BSG ACHS with insulin sliding scale Hematuria: - Levaquin (started on 08/25) DVT prophylaxis - Eliquis - TEDS, SCDs (Jerilyn Starkey, PAGertrudeC) Reviewed: Pt Seen/Exam by Me, HO Notes (Petty Arrington MD) History Physician Agricultural Engineering Technologist Supervision Note: I interviewed and examined the patient. Discussed with LION Starkey and agree with findings and plan as documented in the note. Any exceptions or clarifications are listed here: DOing ok, asking for laxative Vitals reviewed Morbidly obese RRR no mgr Pulm CTAB except mild wheeze Abd morbidly obese, +BS, soft Ext no edema or calf tenderness Psych flat affect, no eye contact -Awaiting rehab placement but not sure this will happen given situation last admission -continue to taper down gabapentin, can stop clonidine -switch to po ativan from IV today -mag citrate as per her request Documented By: Petty Arrington (Petty Arrington MD) Assessment/Plan 50-year-old female with a long-standing cardiac history, COPD, oxygen dependent at night for ELIZABETH, long-standing history of noncompliance and psychiatric d/o. Presented to the emergency department with altered mental status secondary to drug and alcohol use. Tested positive for cocaine, benzodiazepines and elevated EtOH of 212 Altered mental status likely secondary to multidrug abuse as noted above, EtOH dependence, Cocaine abuse, uses prescribed hydrocodone for chronic pain. Respiratory acidosis-secondary to chronic COPD and most likely depressed respiratory drive-now improved clinically, on gabapentin and clonidine for taper down, avoiding benzos if possible -transfer to med/surgery floor -Psych consult appreciated--> no changes in meds as pt declines and no indication for inaptiejnt Psych admission -Continue O2 nocturnally Elevated Trop, which is chronic.Chest pain last admission secondary to cocaine and seen by Cardiology, no ischemic eval deemed necessary, recommended to abstain from cocaine ECG without ischemic changes and serial trops stable, no NSTEMI A. fib-in sinus rhythm here -Continue Eliquis 5 mg BID -continue Diltiazem ER 300 mg QAM -Continue metoprolol ER 100 mg BID, ASA 81 mg daily COPD -Continue O2 nocturnally -Duo nebs every 6 hours scheduled and as needed every 2 hrs -taper steroids back to po prednisone taper -Continue Breo Anxiety/schizoaffective disorder -Continue Effexor, amitriptyline -Hold trazodone due to obvious intoxication and drowsiness from gabapentin and clonidine -Will need psychiatric follow-up DM II -continue lantus and adjust as per pharmacy -insulin sliding scale -accuchecks q 6 hr Hematuria - covered for UTI with Levaquin, but could be effect of Eliquis with some degree of self anticoagulation with heavy ETOH use. DVT prophylaxis -eliquis -TEDS, SCDs (Petty Arrington MD)
[2016-08-27] MEDS ORDERED: LORAZEPAM 0.5 MG TAB PO PRN (17:00)
[2016-08-27] MEDS ORDERED: MAGNESIUM CITRATE 296 ML/BTL PO ONE (17:15)
[2016-08-27] MEDS: AMITRIPTYLINE HCL 25 MG TAB PO SCH (21:00)
[2016-08-27] MEDS ORDERED: INSULIN GLARGINE SOLOSTAR 100 UNITS/ML 3 ML PEN SQ SCH (21:00)
[2016-08-27] MEDS: SENNA 8.6 MG TAB PO SCH (21:01)
[2016-08-28] MEDS: HYDROCODONE/ACETAMOPHEN 5/325MG TAB PO PRN (03:33)
[2016-08-28] MEDS ORDERED: GABAPENTIN 600MG X1 DOSE PO SCH (06:00)
[2016-08-28 07:00] VITALS: BP 138/85; PULSE 59; TEMP 36.7; O2SAT 98
[2016-08-28 07:25] VITALS: PULSE 52; O2SAT 96
[2016-08-28 08:00] VITALS: O2SAT 96
[2016-08-28] MEDS: ALBUT/IPRATROP 3MG/0.5MG NEB 3 ML VIAL INH SCH ×2 (08:12→11:53)
[2016-08-28] MEDS: FUROSEMIDE 40 MG TAB PO SCH (08:22)
[2016-08-28] MEDS: RANITIDINE HCL 150 MG TAB PO SCH (08:22)
[2016-08-28] MEDS: APIXABAN 2.5 MG TAB PO SCH (08:22)
[2016-08-28] MEDS: PANTOprazole SOD 40 MG TAB PO SCH (08:23)
[2016-08-28] MEDS: METOPROLOL SUCC 50MG EXT REL TAB PO SCH (08:23)
[2016-08-28] MEDS: ASPIRIN 81 MG ECTAB PO SCH (08:23)
[2016-08-28] MEDS: LOSARTAN POTASSIUM 50 MG TAB PO SCH (08:24)
[2016-08-28] MEDS: VENLAFAXINE HCL XR 75 MG CAPXR PO SCH (08:24)
[2016-08-28] MEDS: DILTIAZEM HCL 300 MG CAPCR PO SCH (08:24)
[2016-08-28] MEDS: POTASSIUM CHLORIDE 20 MEQ TABCR PO SCH (08:25)
[2016-08-28 08:26] LABS: BASO % 0.1 %; BASO ABS # 0.01 K/uL (0-0.2); COMPLETE YES; EOS % 0.6 %; HEMATOCRIT 34.3 % (37-47); IG% 0.9 %; LYMPH % 36.7 %; LYMPH ABS # 4.73 K/uL (1.2-3.4); MEAN CELL VOLUME 91.5 fL (80-100); MEAN CORPUSCULAR HEMOGLOBIN 30.9 pg (25-34); MEAN CORPUSCULAR HGB CONC 33.8 g/dl (32-36); MEAN PLATELET VOLUME 9.7 fL (7.4-10.4); MONO % 7.1 %; NEUT % 54.6 %; PLATELET COUNT 261 K/uL (130-400); RED BLOOD COUNT 3.75 M/uL (4.2-5.4); WHITE BLOOD COUNT 12.88 K/uL (4.8-10.8)
[2016-08-28] MEDS: INSULIN ASPART 100 UNITS/ML 3 ML PEN SC SCH ×2 (08:31→12:38)
[2016-08-28 08:57] LABS: ALT/SGPT 40 U/L (12-78); BLOOD UREA NITROGEN 15 mg/dl (7-18); BUN/CREATININE RATIO 18.8 (10-20); CALCIUM 8.5 mg/dl (8.5-10.1); CARBON DIOXIDE 36 mmol/L (21-32); CHLORIDE 97 mmol/L (98-107); GLUCOSE 91 mg/dl (70-99); MAGNESIUM 2.9 mg/dl (1.8-2.4); SODIUM 139 mmol/L (136-145)
[2016-08-28 09:00] LABS: ALKALINE PHOSPHATASE 95 U/L (45-117); AST/SGOT 18 U/L (15-37)
--- NOTE | 2016-08-28 10:19 | Pharmacy Progress Note ---
Glycemic Control: Progress Nt Date of Service Aug 28, 2016. Scope Glycemic Pharmacist consulted by Dr Asher on 08/24/16 for glycemic control and to write orders per [facility] inpatient glycemic control protocol. Objective Accuchecks BSG (last 24hrs): Test 08/27/16 11:29 08/27/16 14:33 08/27/16 16:30 08/27/16 20:29 Bedside Glucose 112 mg/dl (70-90) 190 mg/dl (70-90) 182 mg/dl (70-90) 237 mg/dl (70-90) Test 08/28/16 07:30 08/28/16 07:34 Random Glucose 91 mg/dl (70-99) Bedside Glucose 98 mg/dl (70-90) Laboratory Data (last 24hrs) Test 08/28/16 07:30 Anion Gap 6.0 mmol/L BUN/Creatinine Ratio 18.8 Blood Urea Nitrogen 15 mg/dl Creatinine 0.80 mg/dl Potassium Level 4.0 mmol/L Sodium Level 139 mmol/L White Blood Count 12.88 K/uL Red Blood Count 3.75 M/uL Hemoglobin 11.6 g/dL Hematocrit 34.3 % Mean Corpuscular Volume 91.5 fL Mean Corpuscular Hemoglobin 30.9 pg Mean Corpuscular Hemoglobin Concent 33.8 g/dl Platelet Count 261 K/uL Mean Platelet Volume 9.7 fL Neutrophils (%) (Auto) 54.6 % Lymphocytes (%) (Auto) 36.7 % Monocytes (%) (Auto) 7.1 % Eosinophils (%) (Auto) 0.6 % Basophils (%) (Auto) 0.1 % Neutrophils # (Auto) 7.03 K/uL Lymphocytes # (Auto) 4.73 K/uL Monocytes # (Auto) 0.92 K/uL Eosinophils # (Auto) 0.08 K/uL Basophils # (Auto) 0.01 K/uL HbA1c: Test 08/26/16 05:15 Hemoglobin A1c 8.3 % (4.5-5.6) H Recent Pertinent Medications Outpatient Anti-diabetic Regimen: * Lantus 40 units SQ HS * NovoLog 8 units TID with meals * A1c = 8.3 % 07/2016 The patient is currently receiving: * Basal insulin: Lantus 40 units SQ q PM * Correctional Insulin: NovoLog Correction per scale AC+HS+00+04 Goal Range: Low 110 mg/dL - High 140 mg/dL Correction Factor: 15 mg/dL/unit * Prandial insulin: Per carb ratio of 1 unit per 5 grams CHO consumed Risk Factors for Insulin Resistance: * Steroids: Solu- Medrol 40mg IV every 6 hours --> Prednisone 60mg PO daily -- > Prednisone 40mg PO daily * Diet: T2DM/AHA Assessment & Plan ASSESSMENT: 08/24/16 * 50 yo T2DM F admitted with AMS secondary to alcohol, currently in telemetry unit on alcohol withdrawal protocol * BSGs have been stable since admission last evening, but I do not believe this will continue * Pt has been initiated on high dose IV steroids this afternoon, which from past admissions, we know will cause her to have severe steroid-induced hyperglycemia * When on IV steroids, BSGs are typically >300 mg/dL with double outpatient Lantus dosing and very tight Novolog coverage * I will initiate aggressive regimen tonight, and have glycemic pharmacist follow her closely through the evening * Start with weight-based dosing and stress of 3, reassess throughout the evening * Spoke with MD, low threshold for insulin drip * IF BSGs trend >350 mg/dL consistently, recommend insulin infusion * ADA & AACE recommend a goal blood sugar range 140-180 mg/dl for the majority of critically ill & non-critically ill patients. However, more stringent targets may be selected in individual cases. Per past admission data on steroids , tighten goal to 100-140 mg/dL 08/25/16 * After initiating aggressive basal/bolus regimen yesterday, BSGs have not risen >300 mg/dL * BSGs, however, do remain in the 200's so I will further tighten her carb ratio to give an additional 5-7 units with meals * Continue additional checks overnight while steroids are q6 hrs to stay on top of hyperglycemia * The basal insulin scale I have ordered is very aggressive but warranted based on prior admission data when patient is on ATC IV steroids - it will be imperative to titrate down with each step in steroids 08/27/16 * Solu-Medrol has been changed to prednisone 60mg PO daily * empirically decreased last night's Lantus dose and omit this AM Lantus * begin to titrate back to home Lantus regimen (qPM dosing only) * Loosen CF/CR this AM --> pre-lunch BSG near lower end of goal range 08/28/16 * Steroids again tapered this morning. In addition to a profound response to IV steroids, we see Ms Judge have a minimal response to PO steroids and will need to precipitously decrease her insulin regimen. * Home dose of Lantus appears to be too aggressive at this time based on fasting BSG below goal range (though NOT hypoglycemia) * slightly decrease Lantus dose this evening PLAN FOR INPATIENT GLYCEMIC CONTROL: * Lantus decreased to 32 units SQ q PM * give 1/2 dose if BSG is below 110mg/dL * Correctional Insulin with NOVOLOG per scale ACHS or Q6hrs while NPO * Goal Range: Low 110 mg/dL - High 140 mg/dL * Correction Factor: 15 mg/dL/unit * Nutritional / Prandial insulin per carb ratio of 1 unit per 5 grams CHO consumed * Continue to adjust insulin doses based on steroid doses * A1c added to discharge instructions * Please note that the plan above was derived based on current level of insulin resistance and hospital stress. These recommendations are appropriate for inpatient admission only. Plan of care upon discharge will need to be reassessed to avoid potential outpatient hypo/hyperglycemia. Thank you.
[2016-08-28] MEDS ORDERED: LEVOFLOXACIN 500 MG TAB PO SCH (11:00)
[2016-08-28 11:15] VITALS: PULSE 53; O2SAT 98
[2016-08-28] MEDS ORDERED: PRD20 PO (13:03)
[2016-08-28] MEDS ORDERED: ATV5 PO (13:03)
--- NOTE | 2016-08-28 13:09 | Discharge Instructions ---
Discharge Instructions Admission Reason for Admission: Copd With Exacerbation, Alcohol intoxication and abuse, Cocaine abuse Discharge Discharge Diagnosis / Problem: COPD Exacerbation, Alcohol and coaine intoxication and abuse Discharge Goals Goal(s): Improve disease control, Therapeutic intervention Activity Recommendations Activity Limitations: resume your previous activity Lifting Limitations: none Exercise/Sports Limitations: none Shower/Bathe: no limitations . Instructions / Follow-Up Instructions / Follow-Up Follow up with your outpatient Psychiatrist and your Beater Out Leveling Machine is aware that you need placement in an intensive outpatient program for drug and alcohol rehab. DO NOT DRINK ALCOHOL OR TAKE ANY DRUGS THAT AREN'T PRESCRIBED TO YOU. Current Hospital Diet Patient's current hospital diet: Diabetes Type 2 Diet, AHA Diet (Heart Healthy) Discharge Diet Recommended Diet: AHA Diet (Heart Healthy), Diabetes Type 2 Diet Procedures Procedures Performed: Chest xray Pending Studies Studies pending at discharge: no Laboratory Results Hemoglobin A1c Test 08/26/16 05:15 Range/Units Estimated Average Glucose 192 mg/dl Hemoglobin A1c 8.3 H 4.5-5.6 % Medical Emergencies . Who to Call and When: Medical Emergencies: If at any time you feel your situation is an emergency, please call 911 immediately. . Non-Emergent Contact Non-Emergency issues call your: Primary Care Provider, Specialist (Psychiatrist ) Call Non-Emergent contact if: you have a fever, you have any medication questions . . "Provider Documentation" section prepared by Petty Arrington. VTE Core Measure Inpt VTE Proph given/why not?: Other Anticoagulation, T.E.D. Stockings, SCD's [place] Drug Monitoring Program Search Results: patient reviewed within database, no issues identified
[2016-08-28 13:15] VITALS: BP 138/85; PULSE 53; TEMP 36.7; O2SAT 98
--- NOTE | 2016-08-28 23:28 | Discharge Summary ---
Discharge Summary Date of Service Aug 28, 2016. Discharge Summary Admission Date: Aug 24, 2016 at 14:41 Discharge Date: Aug 28, 2016 Discharge Disposition: Home with services Principal Diagnosis: EtOH intoxication, Cocaine intoxication, Toxic encephalopathy Problems/Secondary Diagnoses: CAD COPD ELIZABETH Schizophrenia Elevated Troponin, demand ischemia Paroxysmal Atrial Fibrillation Chronic anticoagulation Anxiety disorder DM II Morbid obesity Hematuria Chronic pain disorder Opioid dependence Immunizations: Have You Had Influenza Vaccine: Yes Influenza Vaccine Date: Apr 23, 2012 History of Tetanus Vaccine?: Unknown History of Pneumococcal: Yes Pneumococcal Date: Mar 12, 2011 History of Hepatitis B Vaccine: had one shot of the series Procedures: CHEST ONE VIEW PORTABLE CLINICAL HISTORY: Overdose COMPARISON STUDY: 08/10/2016 FINDINGS: The heart remains enlarged. There is no focal pulmonary consolidation. There are no pleural effusions. Mild interstitial prominence, likely relates to technical factors given the patient's large body habitus. There is minor irregularity of the proximal left humerus. This may represent a summation with periarticular calcifications as were visualized and are prior left shoulder series dated 07/13/2015[ IMPRESSION: No acute findings. Consultations: Psychiatry Medication Reconciliation New Medications: Lorazepam (Lorazepam) 0.5 Mg Tab 0.5 MG PO BID PRN for Anxiety/Agitation, #5 TAB Continued Medications: Albuterol Hfa (Ventolin Hfa) 200 Puffs/16034 Mcg Aers 2-4 PUFFS INH Q6H, #1 INHALER Albuterol Sulf (Proventil 0.083% 2.5MG/3ML) 2.5 Mg/3 Ml Nebu 1 VIAL NEB Q4-6HRS PRN for Wheezing, #30 VIAL Amitriptyline HCl (Amitriptyline HCl) 25 Mg Tab 50 MG PO HS for 30 Days, #60 TAB Apixaban (Eliquis) 5 Mg Tab 5 MG PO BID Aspirin (Aspirin EC Low Dose) 81 Mg Ectab 81 MG PO QAM Chlordiazepoxide (Chlordiazepoxide HCl) 25 Mg Cap 25 MG PO DAILY PRN for alcohol withdrawal/anxiety for 10 Days, #10 CAP 0 Refills Diltiazem Hcl Coated Beads (Diltiazem Hcl Er) 300 Mg Cap 300 MG PO QAM Diphenhydramine HCl (Diphenhydramine HCl) 25 Mg Cap 25 MG PO Q4H PRN for itching, #30 CAP Fluticasone Furoate-Vilanterol (Breo Ellipta) 1 Inh Inh 1 PUFF INH BID Furosemide (Furosemide) 40 Mg Tab 40 MG PO QAM Guaifenesin (Mucinex Maximum Strength) 1,200 Mg Tab 1 TAB PO BID PRN for PRN for 15 Days, #30 TAB Hydrocodone/Acetaminophen ([place] 10/325 Tab) 1 Tab Tab 1 TAB PO TID PRN for Pain, TAB Insulin Aspart (Novolog Flexpen) 100 Units/Ml Inj 8 UNITS SQ TIDM INJECT 8 UNITS SQ PRIOR TO MEALS, IF ABOVE 185 PT SAID INJECTING 8 UNITS TID, IF OVER 200 INJECT 2 ADDTIONAL UNITS Insulin Glargine (Lantus Solostar) 100 Unit/Ml Inj 40 UNITS SQ HS for 30 Days Lactulose (Constulose) 10 Gm/15 Ml Priti 45 ML PO DAILY PRN for Constipation Losartan Potassium (Losartan Potassium) 50 Mg Tab 50 MG PO DAILY Metoprolol Succinate (Metoprolol Succinate ER) 100 Mg Tabcr 100 MG PO BID Omeprazole (Prilosec) 20 Mg Cap 20 MG PO QAM Paliperidone Palmitate (Invega Sustenna) Unknown Strength Inj 1 DOSE IM MONTHLY for 30 Days, #1 SYR 5 Refills Potassium Chloride Microencaps (Potassium Chloride Er) 20 Meq Tab 20 MEQ PO DAILY, #30 Prednisone (Prednisone) 20 Mg Tab 40 MG PO DAILY, #7 TAB (This prescription has been renewed) x 1 day then 20mg daily x 3 days then 10mg daily x 3 days then stop Ranitidine HCl (Ranitidine HCl) 150 Mg Tab 150 MG PO BID Trazodone HCl (Trazodone HCl) 150 Mg Tab 1 TAB PO HS, #15 TAB Valacyclovir HCl (Valacyclovir HCl) 500 Mg Tab 500 MG PO QAM Venlafaxine Hcl (Effexor Extended Rel) 75 Mg Capcr 75 MG PO DAILY, #30 Referrals At Discharge Continued Follow up Referrals: Physician Referral - Within 1 Week with Alonso Zuluaga M.D. Discharge Exam Pt with request for opioid Rx today after learning she would be discharged which was promptly denied. Will arrange for IOP for drug and EtOH rehab as no available inpatient rehab for her. No signs of withdrawal, has finished out gabapentin taper Review of Systems: Constitutional: No fever ENT: No problem reported Respiratory: + wheezing (mild) Cardiovascular: No chest pain Abdomen: + constipation, No pain Musculoskeletal: + problem reported (chronic lower back pain) Genitourinary - Female: No problem reported Neurologic: No problem reported Psychiatric: + anxiety, + substance abuse Endocrine: No problem reported Hematologic / Lymphatic: No problem reported Integumentary: No problem reported Physical Exam: General Appearance: WD/WN, no apparent distress, + obese Eyes: normal inspection, sclerae normal ENT: hearing grossly normal, pharynx normal Neck: trachea midline Respiratory/Chest: no respiratory distress, no accessory muscle use, + wheezing (occasional faint wheeze, moving air well) Cardiovascular: regular rate, rhythm, no edema, no gallop, no murmur Abdomen / GI: normal bowel sounds, non tender, soft (and morbidly obese) Extremities: normal inspection, no calf tenderness, no pedal edema Neurologic/Psychiatric: alert, + pertinent finding (flat affect) Skin: normal color, warm/dry, no rash Hospital Course 50-year-old female with a long-standing cardiac history, COPD, oxygen dependent at night for ELIZABETH, long-standing history of noncompliance and psychiatric d/o. Presented to the emergency department with altered mental status secondary to drug and alcohol use. Tested positive for cocaine, benzodiazepines and elevated EtOH of 212 Altered mental status likely secondary to multidrug abuse as noted above, EtOH dependence, Cocaine abuse, uses prescribed hydrocodone for chronic pain. Respiratory acidosis-secondary to chronic COPD and most likely depressed respiratory drive-now improved clinically, on gabapentin and clonidine for taper down, avoiding overuse of benzos if possible -Psych consult appreciated--> no changes in meds as pt declines and no indication for inpatient Psych admission -Continue O2 nocturnally -received gabapentin and clonidine tapers here for withdrawal protocol -discharge to home with plans for intensive outpatient rehab -gave #5 tabs of ativan for prn use in case of withdrawal symptoms -f/u Psychiatry -no need to continue to admit her here in the future for alcohol intoxication Elevated Trop, which is chronic.Chest pain last admission secondary to cocaine and seen by Cardiology, no ischemic eval deemed necessary, recommended to abstain from cocaine ECG without ischemic changes and serial trops stable, no NSTEMI PAF-in sinus rhythm here -Continue Eliquis 5 mg BID -continue Diltiazem ER 300 mg QAM -Continue metoprolol ER 100 mg BID, ASA 81 mg daily COPD -Continue O2 nocturnally -Duo nebs every 6 hours scheduled and as needed every 2 hrs -taper steroids back to po prednisone taper -Continue Breo Anxiety/schizoaffective disorder -Continue Effexor, amitriptyline -Held trazodone due to obvious intoxication and drowsiness from gabapentin and clonidine -Will need psychiatric follow-up DM II -continue lantus -insulin sliding scale -accuchecks q 6 hr Hematuria - covered for UTI with Levaquin, but could be effect of Eliquis with some degree of self anticoagulation with heavy ETOH use. DVT prophylaxis -eliquis -TEDS, SCDs Total Time Spent: Greater than 30 minutes This includes examination of the patient, discharge planning, medication reconciliation, and communication with other providers. Discharge Instructions Please refer to the electronic Patient Visit Report (Discharge Instructions) for additional information. Follow-Up Psychiatry within 1 week IOP Rehab program [facility] PCP within 1 week Additional Copies To Alonso Zuluaga M.D.
[2016-08-29 00:30] LABS: COCAINE, URINE 11900 NG/ML (CUTOFF=100); HYDROXYETHYLFLURAZEPAM CONF NEGATIVE NG/ML (CUTOFF=50); HYDROXYMIDAZOLAM NEGATIVE NG/ML (CUTOFF=50); HYDROXYTRIAZOLAM CONF NEGATIVE NG/ML (CUTOFF=50); TEMAZEPAM CONF NEGATIVE NG/ML (CUTOFF=50)
[2016-08-31] MEDS ORDERED: APIX1TAB3 PO (21:22)
[2016-11-13] MEDS ORDERED: LACT10SO17 PO (15:15)
[2016-11-13] MEDS ORDERED: INSDGI SC (15:15)
[2016-12-07] MEDS ORDERED: AZIT250T5 PO (14:09)
[2016-12-10] MEDS ORDERED: HYDR-4383 PO (10:16)
[2016-12-10] MEDS ORDERED: TRL2 PO (10:16)
[2016-12-10] MEDS ORDERED: INSDGI SC (10:16)
[2016-12-10] MEDS ORDERED: IPRASOL4 INH (10:16)
[2016-12-10] MEDS ORDERED: PRED10TA PO (10:16)
[2016-12-12] MEDS ORDERED: PERP1TAB11 PO (12:59)
== END 2016-08-28 14:03 | disposition home or self-care (01) | DRG 896 ==
LOC: ENRESERVDT → ENRESERVTM → EDBD 14:01 → C.EDB 14:02 → C.EDINP 19:49 → EEVIPCON 19:49 → C.MSICU 08-24 06:18 → EEVIPCON 08-24 14:41 → OBSVTOIN 08-24 14:41 → C.2E 08-24 19:26 → C.MS2W 08-26 19:04
PROVIDERS: ADMIT Family Medicine; ATTEND Family Medicine
DX: F10.229 Alcohol dependence with intoxication, unspecified (principal); G92 Toxic encephalopathy; I24.8 Other forms of acute ischemic heart disease; N39.0 Urinary tract infection, site not specified; J44.1 Chronic obstructive pulmonary disease with (acute) exacerbation; E87.2 Acidosis; F11.20 Opioid dependence, uncomplicated; D68.9 Coagulation defect, unspecified; Z68.42 Body mass index [BMI] 45.0-49.9, adult; I25.10 Atherosclerotic heart disease of native coronary artery without angina pectoris; F41.9 Anxiety disorder, unspecified; I48.2 Chronic atrial fibrillation; I48.0 Paroxysmal atrial fibrillation; F17.210 Nicotine dependence, cigarettes, uncomplicated; F14.120 Cocaine abuse with intoxication, uncomplicated; G47.33 Obstructive sleep apnea (adult) (pediatric); F10.239 Alcohol dependence with withdrawal, unspecified; F32.9 Major depressive disorder, single episode, unspecified; F25.1 Schizoaffective disorder, depressive type; R79.89 Other specified abnormal findings of blood chemistry; R31.9 Hematuria, unspecified; E66.01 Morbid (severe) obesity due to excess calories; G89.29 Other chronic pain; E11.65 Type 2 diabetes mellitus with hyperglycemia; R06.89 Other abnormalities of breathing; R07.9 Chest pain, unspecified; T38.0X5A Adverse effect of glucocorticoids and synthetic analogues, initial encounter; D72.829 Elevated white blood cell count, unspecified; M94.0 Chondrocostal junction syndrome [Tietze]; F19.10 Other psychoactive substance abuse, uncomplicated; K76.0 Fatty (change of) liver, not elsewhere classified; E11.40 Type 2 diabetes mellitus with diabetic neuropathy, unspecified; F60.9 Personality disorder, unspecified; G57.00 Lesion of sciatic nerve, unspecified lower limb; R94.31 Abnormal electrocardiogram [ECG] [EKG]; I10 Essential (primary) hypertension; I25.2 Old myocardial infarction; Z91.19 Patient's noncompliance with other medical treatment and regimen; Z79.4 Long term (current) use of insulin; Z79.82 Long term (current) use of aspirin; Z79.52 Long term (current) use of systemic steroids; Z99.81 Dependence on supplemental oxygen; Z79.899 Other long term (current) drug therapy; Z79.51 Long term (current) use of inhaled steroids; Z95.1 Presence of aortocoronary bypass graft; Z79.01 Long term (current) use of anticoagulants

== ENCOUNTER 2016-08-31 22:11 | Emergency (ER) | payer OTHER ==
[~2016-08-31 22:11] MED LIST changes: -ALBUAER2 INH; +APIX1TAB3 PO; +ATV5 PO; +VNTHFA/IN INH
[2016-08-31 22:15] VITALS: BP 131/64; PULSE 99; TEMP 36.8; O2SAT 96
--- NOTE | 2016-08-31 22:34 | EMERGENCY ROOM VISIT NOTE ---
History Report prepared by Domenico: Ever Mabry Under the Supervision of: Dr. Jackson Ozuna D.O. First contact with patient: 22:14 Chief Complaint: CHEST PAIN Stated Complaint: CEHST PAIN History of Present Illness The patient is a 50 year old female who presents to the Emergency Room with complaints of constant pain in her left arm that she woke up with at 0600 this morning, 17 hours prior to arrival. The patient states that she was feeling well yesterday, but was concerned of her arm pain after having a heart attack in the past. She admits to consuming 1 pint of Vodka and doing a line of cocaine this evening. 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 A total of 10 systems reviewed and were otherwise negative. Past Medical & Surgical Medical Problems: (1) Acute bronchitis (2) Afib (3) Alcohol abuse (4) Atrial fibrillation (5) Benzodiazepine abuse (6) Cellulitis of leg, right (7) Chronic generalized pain disorder (8) Cocaine abuse (9) copd exac, pna (10) copd exac, pna (11) COPD with acute exacerbation (12) COPD with exacerbation (13) Depression (14) Diabetes (15) Diabetes (16) Edema (17) Fatty liver (18) HTN (hypertension) (19) Influenza B (20) Major depression (21) Neuropathy (22) NSTEMI, initial episode of care (23) Obesity (24) Opiate addiction (25) Ovarian cyst (26) Palpitations (27) past psych meds (28) Past Psych Meds (29) Personality disorder (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 (31) Sleep apnea (32) Suicide attempt Surgical Problems: (1) H/O foot surgery (2) H/O ovarian cystectomy Social History Problems: (1) ETOH abuse Family History Heart disease Social History Smoking Status: Current Every Day Smoker Alcohol Use: heavy Drug Use: cocaine, marijuana Marital Status: single Housing Status: lives with family Occupation Status: disabled Current/Historical Medications Scheduled Albuterol Hfa (Ventolin Hfa), 2-4 PUFFS INH Q6H Amitriptyline HCl (Amitriptyline HCl), 50 MG PO HS Apixaban (Eliquis), 5 MG PO BID Aspirin (Aspirin EC Low Dose), 81 MG PO QAM Diltiazem Hcl Coated Beads (Diltiazem Hcl Er), 300 MG PO QAM Fluticasone Furoate-Vilanterol (Breo Ellipta), 1 PUFF INH BID Furosemide (Furosemide), 40 MG PO QAM Insulin Aspart (Novolog Flexpen), 8 UNITS SQ TIDM Insulin Glargine (Lantus Solostar), 40 UNITS SQ HS Losartan Potassium (Losartan Potassium), 50 MG PO DAILY Metoprolol Succinate (Metoprolol Succinate ER), 100 MG PO BID Omeprazole (Prilosec), 20 MG PO QAM Paliperidone Palmitate (Invega Sustenna), 1 DOSE IM MONTHLY Potassium Chloride Microencaps (Potassium Chloride Er), 20 MEQ PO DAILY Prednisone (Prednisone), 40 MG PO DAILY Ranitidine HCl (Ranitidine HCl), 150 MG PO BID Trazodone HCl (Trazodone HCl), 1 TAB PO HS Valacyclovir HCl (Valacyclovir HCl), 500 MG PO QAM Venlafaxine Hcl (Effexor Extended Rel), 75 MG PO DAILY Scheduled PRN Albuterol Sulf (Proventil 0.083% 2.5MG/3ML), 1 VIAL NEB Q4-6HRS PRN for Wheezing Chlordiazepoxide (Chlordiazepoxide HCl), 25 MG PO DAILY PRN for alcohol withdrawal/anxiety Diphenhydramine HCl (Diphenhydramine HCl), 25 MG PO Q4H PRN for itching Guaifenesin (Mucinex Maximum Strength), 1 TAB PO BID PRN for PRN Hydrocodone/Acetaminophen ([place] 10/325 Tab), 1 TAB PO TID PRN for Pain Lactulose (Constulose), 45 ML PO DAILY PRN for Constipation Lorazepam (Lorazepam), 0.5 MG PO BID PRN for Anxiety/Agitation Allergies Coded Allergies: Haloperidol (Verified Allergy, Severe, TONGUE SWELLING, 08/23/16) Margarine (Verified Allergy, Severe, RASH, 08/23/16) Pt reported an allergy to butter & margarine (causes swelling), though stated she is not allergic to milk. Penicillins (Verified Allergy, Unknown, UNKNOWN, 08/23/16) PER CHRISSY IN U Sulfamethoxazole w/Trimethoprim (Verified Allergy, Unknown, ., 08/23/16) Morphine (Verified Adverse Reaction, Mild, HEADACHE, 08/23/16) Oxycodone (Verified Adverse Reaction, Unknown, ITCH, 08/23/16) Physical Exam Vital Signs Date Time Temp Pulse Resp B/P Pulse Ox O2 Delivery O2 Flow Rate FiO2 08/31/16 22:15 96 Room Air 08/31/16 22:15 36.8 99 24 131/64 96 Room Air Physical Exam GENERAL: Patient is awake, alert, and in no acute distress. Patient is resting comfortably and showing no signs of anxiety EYES: The conjunctivae are clear. The pupils are round and reactive. EARS, NOSE, MOUTH AND THROAT: The nose is without any evidence of any deformity. Mucous membranes are moist tongue is midline NECK: The neck is nontender and supple. RESPIRATORY: Normal respiratory effort is noted there is no evidence of wheezing rhonchi or rales CARDIOVASCULAR: Regular rate and rhythm noted there no murmurs rubs or gallops normal S1 normal S2 GASTROINTESTINAL: The abdomen is soft. Bowel sounds are present in all quadrants. Abdomen is nontender MUSCULOSKELETAL/EXTREMITIES: There is no evidence of gross deformity full range of motion is noted in the hips and shoulders SKIN: There is trace pedal edema bilaterally. There are no petechiae, pallor or cyanosis noted. NEUROLOGIC: Patient is awake alert and oriented x3. Medical Decision & Procedures ECG Indication: chest pain Rate (beats per minute): 98 Rhythm: normal sinus Findings: no acute ischemic change, other (LVH was noted by voltage criteria) Comparison ECG Date: 08/25/2016 Change: Increased rate from previous ED Course 2216: The patient was evaluated in room B9. A complete history and physical examination were performed. 2224: After initial evaluation the patient discharged herself from the hospital against medical advice. Medical Decision Prior records/ancillary studies reviewed. Triage Nursing notes reviewed. The patient's history was concerning for chest pain. Differential diagnosis: Etiologies such as cardiac ischemia, aortic dissection, pulmonary embolism, pneumonia, pneumothorax, musculoskeletal, infections, pericarditis, myocarditis , esophageal rupture, gastrointestinal, as well as others were entertained. The patient is a 50-year-old female who presented to the emergency department by ambulance for chest pain. The patient states that she's had ongoing chest pain since this morning. The patient tried drinking alcohol as well as taking recreational drugs for the pain. She had ongoing pain and called the ambulance to be evaluated in the emergency department. The patient's EKG did not show any acute changes. The patient decided that she did not wish to hospital for any further evaluation. I encouraged her to stay in the hospital for further treatment as well as further studies to ensure that she did not have an acute coronary event or unstable angina. The patient did not wish to stay and signed out against medical insurance coding specialist. Impression Primary Impression: Left sided chest pain Additional Impression: Drug abuse Scribe Attestation The scribe's documentation has been prepared under my direction and personally reviewed by me in its entirety. I confirm that the note above accurately reflects all work, treatment, procedures, and medical decision making performed by me. Departure Information Dispostion Against Medical Advice Referrals Alonso Zuluaga M.D. (PCP) Patient Instructions [facility] Problem Qualifiers
[2016-11-13] MEDS ORDERED: LACT10SO17 PO (15:15)
[2016-11-13] MEDS ORDERED: INSDGI SC (15:15)
[2016-12-07] MEDS ORDERED: AZIT250T5 PO (14:09)
[2016-12-10] MEDS ORDERED: PRED10TA PO (10:16)
[2016-12-10] MEDS ORDERED: HYDR-4383 PO (10:16)
[2016-12-10] MEDS ORDERED: IPRASOL4 INH (10:16)
[2016-12-10] MEDS ORDERED: INSDGI SC (10:16)
[2016-12-10] MEDS ORDERED: TRL2 PO (10:16)
[2016-12-12] MEDS ORDERED: PERP1TAB11 PO (12:59)
== END 2016-08-31 22:21 | disposition left against medical advice (07) ==
LOC: EDBD 22:11 → C.EDB 22:12
DX: R07.89 Other chest pain (principal); F19.10 Other psychoactive substance abuse, uncomplicated; F17.210 Nicotine dependence, cigarettes, uncomplicated; Z79.82 Long term (current) use of aspirin; Z79.899 Other long term (current) drug therapy; E11.9 Type 2 diabetes mellitus without complications; F32.9 Major depressive disorder, single episode, unspecified; I10 Essential (primary) hypertension; Z79.4 Long term (current) use of insulin

== ENCOUNTER 2016-09-09 17:49 | Emergency (ER) | payer OTHER ==
[~2016-09-09] VITALS: Ht 167.6 cm; Wt 133.6 kg
[2016-09-09 18:16] VITALS: TEMP 37.4; Ht 167.6 cm; Wt 133.6 kg
--- NOTE | 2016-09-09 18:45 | EMERGENCY ROOM VISIT NOTE ---
History Report prepared by Domenico: Ana Downs Under the Supervision of: Dr. Malou Prescott D.O. First contact with patient: 18:22 Chief Complaint: CHEST PAIN Stated Complaint: CHEST PAINS, HIGH BP History of Present Illness The patient is a 50 year old female who presents to the Emergency Room with complaints of persistent chest pain that started this morning. She rates her discomfort as a 9/10. She reports last week her left arm started hurting, but it has resolved. She complains of "coughing up foam" and reports it is "black in color". This has been ongoing for the past 1 week and she admits she is a current smoker, but states "I don't smoke a lot". She reports she had a pain clinic appointment earlier today and her BP was 185/119. She states the pain clinic told her to contact her PCP about her blood pressure. The patient admits to some diarrhea and abdominal pain due to a history of ovarian cysts. She states "one recently popped". Source of History: patient Onset: this morning Position: chest Symptom Intensity: 9/10 Timing: other (persistent) Associated Symptoms: + abdominal pain, + diarrhea Review of Systems See HPI for pertinent positives & negatives. A total of 10 systems reviewed and were otherwise negative. Past Medical & Surgical Medical Problems: (1) Acute bronchitis (2) Afib (3) Alcohol abuse (4) Atrial fibrillation (5) Benzodiazepine abuse (6) Cellulitis of leg, right (7) Chronic generalized pain disorder (8) Cocaine abuse (9) copd exac, pna (10) copd exac, pna (11) COPD with acute exacerbation (12) COPD with exacerbation (13) Depression (14) Diabetes (15) Diabetes (16) Edema (17) Fatty liver (18) HTN (hypertension) (19) Influenza B (20) Major depression (21) Neuropathy (22) NSTEMI, initial episode of care (23) Obesity (24) Opiate addiction (25) Ovarian cyst (26) Palpitations (27) past psych meds (28) Past Psych Meds (29) Personality disorder (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 (31) Sleep apnea (32) Suicide attempt Surgical Problems: (1) H/O foot surgery (2) H/O ovarian cystectomy Social History Problems: (1) ETOH abuse Family History Heart disease Social History Smoking Status: Current Every Day Smoker Alcohol Use: heavy Drug Use: cocaine, marijuana Marital Status: single Housing Status: lives with family Occupation Status: disabled Current/Historical Medications Scheduled Albuterol Hfa (Ventolin Hfa), 2-4 PUFFS INH Q6H Amitriptyline HCl (Amitriptyline HCl), 50 MG PO HS Apixaban (Eliquis), 5 MG PO BID Aspirin (Aspirin EC Low Dose), 81 MG PO QAM Diltiazem Hcl Coated Beads (Diltiazem Hcl Er), 300 MG PO QAM Fluticasone Furoate-Vilanterol (Breo Ellipta), 1 PUFF INH BID Furosemide (Furosemide), 40 MG PO QAM Insulin Aspart (Novolog Flexpen), 8 UNITS SQ TIDM Insulin Glargine (Lantus), 40 UNITS SQ HS Losartan Potassium (Losartan Potassium), 50 MG PO DAILY Metoprolol Succinate (Metoprolol Succinate ER), 100 MG PO BID Omeprazole (Prilosec), 20 MG PO QAM Paliperidone Palmitate (Invega Sustenna), 1 DOSE IM MONTHLY Potassium Chloride Microencaps (Potassium Chloride Er), 20 MEQ PO DAILY Prednisone (Prednisone), 40 MG PO DAILY Ranitidine HCl (Ranitidine HCl), 150 MG PO BID Trazodone HCl (Trazodone HCl), 1 TAB PO HS Valacyclovir HCl (Valacyclovir HCl), 500 MG PO QAM Venlafaxine Hcl (Effexor Extended Rel), 75 MG PO DAILY Scheduled PRN Albuterol Sulf (Proventil 0.083% 2.5MG/3ML), 1 VIAL NEB Q4-6HRS PRN for Wheezing Chlordiazepoxide (Chlordiazepoxide HCl), 25 MG PO DAILY PRN for alcohol withdrawal/anxiety Diphenhydramine Hcl (Benadryl Allergy), 25 MG PO Q4H PRN for Itching Guaifenesin (Mucinex Maximum Strength), 1 TAB PO BID PRN for PRN Hydrocodone/Acetaminophen ([place] 10/325 Tab), 1 TAB PO TID PRN for Pain Lactulose (Constulose), 45 ML PO DAILY PRN for Constipation Lorazepam (Lorazepam), 0.5 MG PO BID PRN for Anxiety/Agitation Allergies Coded Allergies: Haloperidol (Verified Allergy, Severe, TONGUE SWELLING, 08/23/16) Margarine (Verified Allergy, Severe, RASH, 08/23/16) Pt reported an allergy to butter & margarine (causes swelling), though stated she is not allergic to milk. Penicillins (Verified Allergy, Unknown, UNKNOWN, 08/23/16) PER CHRISSY IN [facility] Sulfamethoxazole w/Trimethoprim (Verified Allergy, Unknown, ., 08/23/16) Morphine (Verified Adverse Reaction, Mild, HEADACHE, 08/23/16) Oxycodone (Verified Adverse Reaction, Unknown, ITCH, 08/23/16) Physical Exam Vital Signs Date Time Temp Pulse Resp B/P Pulse Ox O2 Delivery O2 Flow Rate FiO2 09/09/16 21:26 86 139/73 98 Room Air 09/09/16 18:16 37.4 84 16 180/95 96 Room Air Physical Exam General: Obese female, appears to be uncomfortable. HEENT: Head - normocephalic and atraumatic Pupils are equal, round, and reactive to light. Extraocular eye muscles are intact, and sclera are anicteric. Nose - moist nasal mucosa without discharge. Mouth - moist buccal mucosa. Oropharynx is nonerythematous and there is no tonsillar exudate or edema noted. Neck: Supple; no JVD, nuchal rigidity, cervical lymphadenopathy. Heart: Regular rate and rhythm. Diminished heart sounds secondary to body habitus. There is a normal S1 and S2 with no murmurs, clicks, or gallops appreciated. Lungs: Lung sounds are diminished in both bases, no wheezes, rales, or rhonchi. Abdomen: Soft, lower abdominal tenderness, nondistended, with good bowel sounds. There are no palpable pulsatile masses or hepatosplenomegaly. There is no guarding, rigidity, or rebound noted. Extremities: No evidence of cyanosis, clubbing, or edema. There are easily palpable peripheral pulses. Skin: warm and dry with good turgor and no rashes. Medical Decision & Procedures ER Provider Diagnostic Interpretation: This X-Ray was reviewed and interpreted by myself and the radiologist. CHEST 2 VIEWS ROUTINE IMPRESSION: No acute cardiopulmonary findings. Electronically signed by: Fabrizio Johnson M.D. 09/09/2016 7:56 PM Laboratory Results 09/09/16 20:00 Red Blood Count 3.95, Mean Corpuscular Volume 89.1, Mean Corpuscular Hemoglobin 31.1, Mean Corpuscular Hemoglobin Concent 34.9, Mean Platelet Volume 9.4, Neutrophils (%) (Auto) 54.9, Lymphocytes (%) (Auto) 34.3, Monocytes (%) (Auto) 7.4, Eosinophils (%) (Auto) 2.6, Basophils (%) (Auto) 0.4, Neutrophils # (Auto) 3.80, Lymphocytes # (Auto) 2.38, Monocytes # (Auto) 0.51, Eosinophils # (Auto) 0.18, Basophils # (Auto) 0.03 09/09/16 20:00 Test 09/09/16 20:00 White Blood Count 6.93 K/uL (4.8-10.8) Red Blood Count 3.95 M/uL (4.2-5.4) Hemoglobin 12.3 g/dL (12.0-16.0) Hematocrit 35.2 % (37-47) Mean Corpuscular Volume 89.1 fL (80-100) Mean Corpuscular Hemoglobin 31.1 pg (25-34) Mean Corpuscular Hemoglobin Concent 34.9 g/dl (32-36) Platelet Count 224 K/uL (130-400) Mean Platelet Volume 9.4 fL (7.4-10.4) Neutrophils (%) (Auto) 54.9 % Lymphocytes (%) (Auto) 34.3 % Monocytes (%) (Auto) 7.4 % Eosinophils (%) (Auto) 2.6 % Basophils (%) (Auto) 0.4 % Neutrophils # (Auto) 3.80 K/uL (1.4-6.5) Lymphocytes # (Auto) 2.38 K/uL (1.2-3.4) Monocytes # (Auto) 0.51 K/uL (0.11-0.59) Eosinophils # (Auto) 0.18 K/uL (0-0.5) Basophils # (Auto) 0.03 K/uL (0-0.2) RDW Standard Deviation 52.1 fL (36.4-46.3) RDW Coefficient of Variation 15.9 % (11.5-14.5) Immature Granulocyte % (Auto) 0.4 % Immature Granulocyte # (Auto) 0.03 K/uL (0.00-0.02) Red Blood Cell Morphology Unremarkable D-Dimer 390 ug/L FEU (0-500) Anion Gap 8.0 mmol/L (3-11) Est Creatinine Clear Calc Drug Dose 131.7 ml/min Estimated GFR () 114.3 Estimated GFR (Non- 98.6 BUN/Creatinine Ratio 20.5 (10-20) Calcium Level 8.7 mg/dl (8.5-10.1) Total Bilirubin 0.4 mg/dl (0.2-1) Direct Bilirubin < 0.1 mg/dl (0-0.2) Aspartate Amino Transf (AST/SGOT) 6 U/L (15-37) Alanine Aminotransferase (ALT/SGPT) 28 U/L (12-78) Alkaline Phosphatase 134 U/L (45-117) Total Creatine Kinase 181 U/L (26-192) Creatine Kinase MB 1.5 ng/ml (0.5-3.6) Creatine Kinase MB Ratio 0.8 (0-3.0) Troponin I 0.182 ng/ml (0-0.045) Total Protein 7.2 gm/dl (6.4-8.2) Albumin 3.1 gm/dl (3.4-5.0) Lipase 234 U/L (73-393) Laboratory results per my review. Medications Administered Medications (Trade) Dose Ordered Sig/Lucien Route Start Time Stop Time Status Last Admin Dose Admin Lorazepam (Ativan Inj) 1 mg NOW STAT IV 09/09/16 20:25 09/09/16 20:29 DC 09/09/16 20:51 1 MG Albuterol/ Ipratropium (Duoneb) 3 ml NOW STAT INH 09/09/16 21:24 09/09/16 21:25 DC 09/09/16 21:30 3 ML Procedure Lorazepam IV, DuoNeb INH. ECG Indication: chest pain Rate (beats per minute): 93 Rhythm: normal sinus (normal sinus rhythm) Findings: PVC, no acute ischemic change, no ectopy ED Course 1823: Past medical records reviewed. The patient was evaluated in room B6. A complete history and physical exam was performed. Laboratory studies were drawn as above. Patient had chest x-ray as described above. The patient did have a cough productive of some white sputum. There is no black sputum noted. A 12 EKG was obtained. 2020: I reevaluated the patient. She is experiencing an anxiety attack. I will place orders. 2024: Lorazepam 1 mg IV. 2114: I reviewed the patients records. Her Troponin is chronically elevated. 2123: The patient complained of wheezing and requested a DuoNeb. DuoNeb 3 ml INH. 2144: I reevaluated the patient. She is coughing up sputum. She will receive a breathing treatment then go home. I discussed her results and discharge instructions and she verbalized complete understanding and agreement. Medical Decision The patient is a 50 year old female who presents to the ED with chest pain. The differential diagnoses include bronchitis, pneumonia, hemoptysis, PE, cardiac ischemia, hypertensive urgency. Lab results show normal WBC, stable H&H, Troponin is .182, Lipase is 234, Glucose is 145, LFT's are normal, renal function is normal, D-Dimer is 390. This is a 50-year-old female patient who presents to the emergency department with chest pain which is not unusual for her. The patient describes coughing of black sputum. There was no evidence of this during her emergency department stay. The patient has a significant history of drug abuse. She was unable to give a urine specimen for tox screen testing. EKG was unremarkable. The patient's troponin was mildly elevated which is baseline for her. The patient does follow with Dr. Castillo. However, she has not seen him in quite some time. I have encouraged her to follow-up with him. The patient was instructed to return to the ER if symptoms worsened. Impression Primary Impression: Left sided chest pain Additional Impression: Anxiety Scribe Attestation The scribe's documentation has been prepared under my direction and personally reviewed by me in its entirety. I confirm that the note above accurately reflects all work, treatment, procedures, and medical decision making performed by me. Departure Information Dispostion Home / Self-Care Referrals Alonso Zuluaga M.D. 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 Avoid drugs and alcohol. Rest Problem Qualifiers
[2016-09-09] MEDS ORDERED: AMT25 PO (19:05)
[2016-09-09] MEDS ORDERED: DIPH25CA65 PO (19:07)
[2016-09-09] MEDS ORDERED: INSDGI SQ (19:08)
--- NOTE | 2016-09-09 19:58 | DIAGNOSTIC IMAGING REPORT ---
CHEST 2 VIEWS ROUTINE CLINICAL HISTORY: Shortness of breath and cough COMPARISON STUDY: Chest radiograph August 23, 2016. FINDINGS: Lung volumes are normal. There is no pneumothorax or pleural effusion. Cardiac size is stable. Mediastinal contours are stable. There is no evidence of pulmonary edema. The appearance of the chest is unchanged. IMPRESSION: No acute cardiopulmonary findings. Electronically signed by: Fabrizio Johnson M.D. 09/09/2016 7:56 PM Dictated Date/Time: 09/09/2016 7:56 PM
[2016-09-09 20:13] LABS: HEMATOCRIT 35.2 % (37-47); MEAN CELL VOLUME 89.1 fL (80-100); MEAN CORPUSCULAR HEMOGLOBIN 31.1 pg (25-34); MEAN CORPUSCULAR HGB CONC 34.9 g/dl (32-36); MEAN PLATELET VOLUME 9.4 fL (7.4-10.4); PLATELET COUNT 224 K/uL (130-400); RED BLOOD COUNT 3.95 M/uL (4.2-5.4); WHITE BLOOD COUNT 6.93 K/uL (4.8-10.8)
[2016-09-09] MEDS ORDERED: LORAZEPAM 2 MG/ML 1 ML VIAL IV STA ×2 (20:20→20:25)
[2016-09-09 20:35] LABS: ALT/SGPT 28 U/L (12-78); AST/SGOT 6 U/L (15-37); BLOOD UREA NITROGEN 15 mg/dl (7-18); BUN/CREATININE RATIO 20.5 (10-20); CALCIUM 8.7 mg/dl (8.5-10.1); CARBON DIOXIDE 27 mmol/L (21-32); CHLORIDE 104 mmol/L (98-107); CREATININE 0.71 mg/dl (0.60-1.20); GLUCOSE 145 mg/dl (70-99); POTASSIUM 3.7 mmol/L (3.5-5.1); SODIUM 139 mmol/L (136-145)
[2016-09-09 20:40] LABS: BASO % 0.4 %; BASO ABS # 0.03 K/uL (0-0.2); COMPLETE YES; EOS % 2.6 %; IG% 0.4 %; LYMPH % 34.3 %; LYMPH ABS # 2.38 K/uL (1.2-3.4); MONO % 7.4 %; NEUT % 54.9 %
[2016-09-09 20:53] LABS: ALKALINE PHOSPHATASE 134 U/L (45-117); CKMB/CK RATIO 0.8 (0-3.0)
[2016-09-09] MEDS ORDERED: ALBUT/IPRATROP 3MG/0.5MG NEB 3 ML VIAL INH STA (21:24)
[2016-09-09 21:26] VITALS: BP 139/73; PULSE 86; O2SAT 98
[2016-11-13] MEDS ORDERED: LACT10SO17 PO (15:15)
[2016-11-13] MEDS ORDERED: INSDGI SC (15:15)
[2016-12-07] MEDS ORDERED: AZIT250T5 PO (14:09)
[2016-12-10] MEDS ORDERED: TRL2 PO (10:16)
[2016-12-10] MEDS ORDERED: HYDR-4383 PO (10:16)
[2016-12-10] MEDS ORDERED: PRED10TA PO (10:16)
[2016-12-10] MEDS ORDERED: INSDGI SC (10:16)
[2016-12-10] MEDS ORDERED: IPRASOL4 INH (10:16)
[2016-12-12] MEDS ORDERED: PERP1TAB11 PO (12:59)
== END 2016-09-09 21:47 | disposition home or self-care (01) ==
LOC: C.EDB 17:51
DX: R07.9 Chest pain, unspecified (principal); F41.9 Anxiety disorder, unspecified; I48.91 Unspecified atrial fibrillation; F10.10 Alcohol abuse, uncomplicated; F19.10 Other psychoactive substance abuse, uncomplicated; J44.1 Chronic obstructive pulmonary disease with (acute) exacerbation; E11.9 Type 2 diabetes mellitus without complications; K76.0 Fatty (change of) liver, not elsewhere classified; I10 Essential (primary) hypertension; F32.9 Major depressive disorder, single episode, unspecified; G62.9 Polyneuropathy, unspecified; E66.9 Obesity, unspecified; G47.30 Sleep apnea, unspecified; F60.9 Personality disorder, unspecified; Z82.49 Family history of ischemic heart disease and other diseases of the circulatory system; F17.210 Nicotine dependence, cigarettes, uncomplicated; Z79.82 Long term (current) use of aspirin; Z79.4 Long term (current) use of insulin; Z79.899 Other long term (current) drug therapy

== ENCOUNTER 2016-09-10 03:13 | Emergency (ER) | payer OTHER ==
[~2016-09-10] VITALS: Ht 167.6 cm; Wt 138.0 kg
[~2016-09-10 03:13] MED LIST changes: -BND25X PO; +DIPH25CA65 PO; +INSDGI SQ; -INSDGIPEN SQ
[2016-09-10 03:23] VITALS: TEMP 36.7; Ht 167.6 cm; Wt 138.0 kg
[2016-09-10] MEDS ORDERED: LORAZEPAM 1 MG TAB PO STA (03:25)
--- NOTE | 2016-09-10 03:34 | EMERGENCY ROOM VISIT NOTE ---
History Report prepared by Domenico: Tamir Pryor Under the Supervision of: Dr. Aroldo Mcgarry D.O. First contact with patient: 03:15 Chief Complaint: MENTAL HEALTH EVALUATION Stated Complaint: MENTAL HEALTH History of Present Illness The patient is a 50 year old female who presents to the Emergency Room with complaints of persistent depression beginning this week. She also complains of episodes of anger, hallucinations and panic attacks. She states that she was recently started on a new medication and feels that this might be relevant to her symptoms. The patient notes that she has had intermittent fleeting suicidal thoughts lately as well. She states that she does not feel comfortable talking about it. She states that she currently does not feel suicidal. The patient states that she became very angry while at the pain-management clinic today. She notes that she has felt short of breath lately. She denies any abdominal pain. The patient states that she is going through menopause right now as well. Source of History: patient Onset: This week Quality: other (depression) Timing: other (persistent) Associated Symptoms: + SOB, No abdominal pain Note: The patient also complains of episodes of anger. Review of Systems See HPI for pertinent positives and negatives. A total of ten systems were reviewed and were otherwise negative. Past Medical & Surgical Medical Problems: (1) Acute bronchitis (2) Afib (3) Alcohol abuse (4) Atrial fibrillation (5) Benzodiazepine abuse (6) Cellulitis of leg, right (7) Chronic generalized pain disorder (8) Cocaine abuse (9) copd exac, pna (10) copd exac, pna (11) COPD with acute exacerbation (12) COPD with exacerbation (13) Depression (14) Diabetes (15) Diabetes (16) Edema (17) Fatty liver (18) HTN (hypertension) (19) Influenza B (20) Major depression (21) Neuropathy (22) NSTEMI, initial episode of care (23) Obesity (24) Opiate addiction (25) Ovarian cyst (26) Palpitations (27) past psych meds (28) Past Psych Meds (29) Personality disorder (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 (31) Sleep apnea (32) Suicide attempt Surgical Problems: (1) H/O foot surgery (2) H/O ovarian cystectomy Social History Problems: (1) ETOH abuse Family History Heart disease Social History Smoking Status: Current Every Day Smoker Alcohol Use: heavy Drug Use: cocaine, marijuana Marital Status: single Housing Status: lives with family Occupation Status: disabled Current/Historical Medications Scheduled Albuterol Hfa (Ventolin Hfa), 2-4 PUFFS INH Q6H Amitriptyline HCl (Amitriptyline HCl), 50 MG PO HS Apixaban (Eliquis), 5 MG PO BID Aspirin (Aspirin EC Low Dose), 81 MG PO QAM Diltiazem Hcl Coated Beads (Diltiazem Hcl Er), 300 MG PO QAM Fluticasone Furoate-Vilanterol (Breo Ellipta), 1 PUFF INH BID Furosemide (Furosemide), 40 MG PO QAM Insulin Aspart (Novolog Flexpen), 8 UNITS SQ TIDM Insulin Glargine (Lantus), 40 UNITS SQ HS Losartan Potassium (Losartan Potassium), 50 MG PO DAILY Metoprolol Succinate (Metoprolol Succinate ER), 100 MG PO BID Omeprazole (Prilosec), 20 MG PO QAM Paliperidone Palmitate (Invega Sustenna), 1 DOSE IM MONTHLY Potassium Chloride Microencaps (Potassium Chloride Er), 20 MEQ PO DAILY Prednisone (Prednisone), 40 MG PO DAILY Ranitidine HCl (Ranitidine HCl), 150 MG PO BID Trazodone HCl (Trazodone HCl), 1 TAB PO HS Valacyclovir HCl (Valacyclovir HCl), 500 MG PO QAM Venlafaxine Hcl (Effexor Extended Rel), 75 MG PO DAILY Scheduled PRN Albuterol Sulf (Proventil 0.083% 2.5MG/3ML), 1 VIAL NEB Q4-6HRS PRN for Wheezing Chlordiazepoxide (Chlordiazepoxide HCl), 25 MG PO DAILY PRN for alcohol withdrawal/anxiety Diphenhydramine Hcl (Benadryl Allergy), 25 MG PO Q4H PRN for Itching Guaifenesin (Mucinex Maximum Strength), 1 TAB PO BID PRN for PRN Hydrocodone/Acetaminophen ([place] 10/325 Tab), 1 TAB PO TID PRN for Pain Lactulose (Constulose), 45 ML PO DAILY PRN for Constipation Lorazepam (Lorazepam), 0.5 MG PO BID PRN for Anxiety/Agitation Allergies Coded Allergies: Haloperidol (Verified Allergy, Severe, TONGUE SWELLING, 08/23/16) Margarine (Verified Allergy, Severe, RASH, 08/23/16) Pt reported an allergy to butter & margarine (causes swelling), though stated she is not allergic to milk. Penicillins (Verified Allergy, Unknown, UNKNOWN, 08/23/16) PER CHRISSY IN [facility] Sulfamethoxazole w/Trimethoprim (Verified Allergy, Unknown, ., 08/23/16) Morphine (Verified Adverse Reaction, Mild, HEADACHE, 08/23/16) Oxycodone (Verified Adverse Reaction, Unknown, ITCH, 08/23/16) Physical Exam Vital Signs Date Time Temp Pulse Resp B/P Pulse Ox O2 Delivery O2 Flow Rate FiO2 09/10/16 03:23 36.7 70 18 137/67 95 Room Air Physical Exam PSYCH: States hallucinations. No suicidal ideation. No homicidal ideation. Non- anxious appearing. Not depressed. GENERAL: Awake, alert, well-appearing, in no distress HENT: Normocephalic, atraumatic. Oropharynx unremarkable. EYES: Normal conjunctiva. Sclera non-icteric. NECK: Supple. No nuchal rigidity. FROM. No JVD. RESPIRATORY: Clear to auscultation. CARDIAC: Regular rate, normal rhythm. Extremities warm and well perfused. Pulses equal. ABDOMEN: Soft, non-distended. No tenderness to palpation. No rebound or guarding. No masses. RECTAL: Deferred. MUSCULOSKELETAL: Chest examination reveals no tenderness. The back is symmetrical on inspection without obvious abnormality. There is no CVA tenderness to palpation. No joint edema. LOWER EXTREMITIES: Calves are equal size bilaterally and non-tender. No edema. No discoloration. NEURO: Normal sensorium. No sensory or motor deficits noted. SKIN: Diaphoretic. No rash or jaundice noted. Medical Decision & Procedures Laboratory Results 09/10/16 03:45 Red Blood Count 3.96, Mean Corpuscular Volume 92.2, Mean Corpuscular Hemoglobin 31.8, Mean Corpuscular Hemoglobin Concent 34.5, Mean Platelet Volume 9.7, Neutrophils (%) (Auto) 56.9, Lymphocytes (%) (Auto) 31.5, Monocytes (%) (Auto) 8.3, Eosinophils (%) (Auto) 2.7, Basophils (%) (Auto) 0.2, Neutrophils # (Auto) 3.14, Lymphocytes # (Auto) 1.74, Monocytes # (Auto) 0.46, Eosinophils # (Auto) 0.15, Basophils # (Auto) 0.01 09/10/16 03:45 Test 09/10/16 03:45 09/10/16 03:50 White Blood Count 5.52 K/uL (4.8-10.8) Red Blood Count 3.96 M/uL (4.2-5.4) Hemoglobin 12.6 g/dL (12.0-16.0) Hematocrit 36.5 % (37-47) Mean Corpuscular Volume 92.2 fL (80-100) Mean Corpuscular Hemoglobin 31.8 pg (25-34) Mean Corpuscular Hemoglobin Concent 34.5 g/dl (32-36) Platelet Count 238 K/uL (130-400) Mean Platelet Volume 9.7 fL (7.4-10.4) Neutrophils (%) (Auto) 56.9 % Lymphocytes (%) (Auto) 31.5 % Monocytes (%) (Auto) 8.3 % Eosinophils (%) (Auto) 2.7 % Basophils (%) (Auto) 0.2 % Neutrophils # (Auto) 3.14 K/uL (1.4-6.5) Lymphocytes # (Auto) 1.74 K/uL (1.2-3.4) Monocytes # (Auto) 0.46 K/uL (0.11-0.59) Eosinophils # (Auto) 0.15 K/uL (0-0.5) Basophils # (Auto) 0.01 K/uL (0-0.2) RDW Standard Deviation 53.9 fL (36.4-46.3) RDW Coefficient of Variation 15.8 % (11.5-14.5) Immature Granulocyte % (Auto) 0.4 % Immature Granulocyte # (Auto) 0.02 K/uL (0.00-0.02) Anion Gap 11.0 mmol/L (3-11) Est Creatinine Clear Calc Drug Dose 123.8 ml/min Estimated GFR () 103.6 Estimated GFR (Non- 89.4 BUN/Creatinine Ratio 19.4 (10-20) Calcium Level 8.5 mg/dl (8.5-10.1) Total Bilirubin 0.3 mg/dl (0.2-1) Direct Bilirubin < 0.1 mg/dl (0-0.2) Aspartate Amino Transf (AST/SGOT) 9 U/L (15-37) Alanine Aminotransferase (ALT/SGPT) 30 U/L (12-78) Alkaline Phosphatase 134 U/L (45-117) Total Protein 6.9 gm/dl (6.4-8.2) Albumin 3.1 gm/dl (3.4-5.0) Globulin 3.8 gm/dl (2.5-4.0) Albumin/Globulin Ratio 0.8 (0.9-2) Thyroid Stimulating Hormone (TSH) 1.510 uIu/ml (0.300-4.500) Ethyl Alcohol mg/dL 12.0 mg/dl (0-3) Bedside Glucose 230 mg/dl (70-90) Laboratory results reviewed by me Medications Administered Medications (Trade) Dose Ordered Sig/Lucien Route Start Time Stop Time Status Last Admin Dose Admin Lorazepam (Ativan Tab) 1 mg NOW STAT PO 09/10/16 03:25 09/10/16 03:28 DC 09/10/16 03:39 1 MG ED Course 0318: The patient was evaluated in room A6. A complete history and physical exam was performed. 0325: Ordered Ativan Tab 1 mg PO. 07: The patient was signed out to Dr. Ozuna at the change of shift pending bed search. Medical Decision Differential diagnosis: Etiologies such as mood disorder, infection, hypoglycemia, electrolyte abnormalities, cardiac sources, intracerebral event, toxicologic, neurologic, as well as others were entertained. Pt given ativan; stable; seen by crisis counselor; wants to stay for psych evaluation and medication treatment; medically clear at [id number]; Impression Primary Impression: Depression Additional Impressions: Acute anxiety Hallucinations Scribe Attestation The scribe's documentation has been prepared under my direction and personally reviewed by me in its entirety. I confirm that the note above accurately reflects all work, treatment, procedures, and medical decision making performed by me. Departure Information Dispostion Still a Patient (Signed out to Dr. Ozuna) Referrals Alonso Zuluaga M.D. (PCP) Patient Instructions My [facility] Problem Qualifiers Primary Impression: Depression Depression Type: unspecified Qualified Codes: F32.9 - Major depressive disorder, single episode, unspecified
[2016-09-10 03:58] LABS: BASO % 0.2 %; BASO ABS # 0.01 K/uL (0-0.2); COMPLETE YES; EOS % 2.7 %; HEMATOCRIT 36.5 % (37-47); IG% 0.4 %; LYMPH % 31.5 %; LYMPH ABS # 1.74 K/uL (1.2-3.4); MEAN CELL VOLUME 92.2 fL (80-100); MEAN CORPUSCULAR HEMOGLOBIN 31.8 pg (25-34); MEAN CORPUSCULAR HGB CONC 34.5 g/dl (32-36); MEAN PLATELET VOLUME 9.7 fL (7.4-10.4); MONO % 8.3 %; NEUT % 56.9 %; PLATELET COUNT 238 K/uL (130-400); RED BLOOD COUNT 3.96 M/uL (4.2-5.4); WHITE BLOOD COUNT 5.52 K/uL (4.8-10.8)
[2016-09-10 04:22] LABS: ALT/SGPT 30 U/L (12-78); AST/SGOT 9 U/L (15-37); BLOOD UREA NITROGEN 15 mg/dl (7-18); BUN/CREATININE RATIO 19.4 (10-20); CALCIUM 8.5 mg/dl (8.5-10.1); CARBON DIOXIDE 26 mmol/L (21-32); CHLORIDE 101 mmol/L (98-107); CREATININE 0.77 mg/dl (0.60-1.20); GLUCOSE 235 mg/dl (70-99); POTASSIUM 3.7 mmol/L (3.5-5.1); SODIUM 138 mmol/L (136-145)
[2016-09-10 04:33] LABS: ALB/GLOB RATIO 0.8 (0.9-2); ALKALINE PHOSPHATASE 134 U/L (45-117)
[2016-09-10 08:03] LABS: URINE APPEARANCE CLEAR (CLEAR); URINE BILIRUBIN NEG (NEG); URINE COLOR YELLOW; URINE NITRITE NEG (NEG); URINE PH 5.5 (4.5-7.5); URINE SPECIFIC GRAVITY 1.024 (1.000-1.030); UROBILINOGEN NEG (NEG)
[2016-09-10 08:04] LABS: MANUAL MICROSCOPIC REQUIRED? NO; REVIEW REQ? NO
[2016-09-10 08:28] LABS: BENZODIAZEPINE, URINE POS (NEG); COCAINE,URINE NEG (NEG); PHENCYCLIDINE, URINE NEG (NEG)
--- NOTE | 2016-09-10 09:11 | EMERGENCY ROOM VISIT NOTE ---
ED Visit Note First contact with patient: 09:10 I received this patient at change of shift signout from Dr. Mcgarry. Please see the original note for history and physical. The patient presented to the emergency department for mental health evaluation. The patient doesn't a history of mental health problems as well as substance abuse. The patient was medically cleared in the emergency department. At this time she is awaiting reevaluation by the mental delegate and further disposition. The patient was resting comfortably and I evaluated her. She did not voice any needs or concerns at this time. The patient was further treated in the emergency department with some of her outpatient medications. She was awake and alert and not clinically intoxicated on evaluation. She was evaluated by the mental health delegate from [facility] as well as [address] [place] [address]. She also was evaluated by our case manager specialist in the emergency department. At this time the patient is felt to be safe to be discharged home. She was able to contract for safety. The patient was advised to avoid any further drug abuse and continue all her prescription medications as prescribed. She was also encouraged to follow-up with your therapist as well as her primary care physician as soon as possible. She was also encouraged to call crisis or return to the emergency Department immediately symptoms change worsen or if the need arises.
[2016-09-10] MEDS ORDERED: LOSARTAN POTASSIUM 50 MG TAB PO STA (11:48)
[2016-09-10] MEDS ORDERED: DILTIAZEM HCL 120 MG ER CAP PO STA (11:48)
[2016-09-10] MEDS ORDERED: METOPROLOL SUCC 50MG EXT REL TAB PO STA (11:48)
[2016-09-10] MEDS ORDERED: NovoLIN-R INSULIN PER UNIT CHARGE SC STA (12:21)
[2016-09-10] MEDS ORDERED: HYDROCODONE/ACETAMOPHEN 5/325MG TAB PO STA (12:21)
[2016-09-10] MEDS ORDERED: DILTIAZEM HCL 300 MG CAPCR PO ONE (13:00)
[2016-09-10 13:45] VITALS: BP 139/86
[2016-09-10] MEDS ORDERED: ALBUT/IPRATROP 3MG/0.5MG NEB 3 ML VIAL INH STA (14:02)
[2016-09-10 15:21] VITALS: PULSE 103; O2SAT 99
[2016-09-12 16:27] LABS: COD UR NEGATIVE NG/ML (CUTOFF=50); HYDROCOD UR 6500 NG/ML (CUTOFF=50); HYDROMOR UR 234 NG/ML (CUTOFF=50); HYDROXYETHYLFLURAZEPAM CONF NEGATIVE NG/ML (CUTOFF=50); HYDROXYMIDAZOLAM NEGATIVE NG/ML (CUTOFF=50); HYDROXYTRIAZOLAM CONF NEGATIVE NG/ML (CUTOFF=50); MORPHINE UR NEGATIVE NG/ML (CUTOFF=50); NORHYDROCODONE CONF UR 1880 NG/ML (CUTOFF=50); OXYMORPH UR NEGATIVE NG/ML (CUTOFF=50); TEMAZEPAM CONF NEGATIVE NG/ML (CUTOFF=50)
[2016-11-13] MEDS ORDERED: LACT10SO17 PO (15:15)
[2016-11-13] MEDS ORDERED: INSDGI SC (15:15)
[2016-12-07] MEDS ORDERED: AZIT250T5 PO (14:09)
[2016-12-10] MEDS ORDERED: IPRASOL4 INH (10:16)
[2016-12-10] MEDS ORDERED: PRED10TA PO (10:16)
[2016-12-10] MEDS ORDERED: INSDGI SC (10:16)
[2016-12-10] MEDS ORDERED: HYDR-4383 PO (10:16)
[2016-12-10] MEDS ORDERED: TRL2 PO (10:16)
[2016-12-12] MEDS ORDERED: PERP1TAB11 PO (12:59)
== END 2016-09-10 15:23 | disposition home or self-care (01) ==
LOC: EDBD 03:13 → C.EDA 03:15
DX: F32.9 Major depressive disorder, single episode, unspecified (principal); F41.9 Anxiety disorder, unspecified; R44.3 Hallucinations, unspecified; R06.02 Shortness of breath; J44.9 Chronic obstructive pulmonary disease, unspecified; I48.91 Unspecified atrial fibrillation; E11.9 Type 2 diabetes mellitus without complications; I25.2 Old myocardial infarction; I11.9 Hypertensive heart disease without heart failure; F17.200 Nicotine dependence, unspecified, uncomplicated; Z79.899 Other long term (current) drug therapy; Z79.4 Long term (current) use of insulin; Z79.01 Long term (current) use of anticoagulants; Z79.82 Long term (current) use of aspirin; Z79.52 Long term (current) use of systemic steroids

== ENCOUNTER 2016-09-28 14:45 | Emergency (ER) | payer OTHER ==
--- NOTE | 2016-09-28 14:55 | EMERGENCY ROOM VISIT NOTE ---
History Report prepared by Domenico: Ludmila Hu Under the Supervision of: Dr. Itz Navarro M.D. First contact with patient: 14:49 Chief Complaint: PAIN (GENERALIZED) Stated Complaint: ALCOHOL OVERDOSE History of Present Illness The patient is a 51 year old female who presents to the Emergency Room with complaints of constant generalized pain. The patient was brought in via EMS. She complains of shortness of breath as well. This HPI is limited due to patient 's alcohol intoxication. Source of History: patient History Limited By: intoxication Quality: other (generalized pain) Timing: constant Review of Systems See HPI for pertinent positives & negatives. A total of 10 systems reviewed and were otherwise negative. Past Medical & Surgical Medical Problems: (1) Acute bronchitis (2) Afib (3) Alcohol abuse (4) Atrial fibrillation (5) Benzodiazepine abuse (6) Cellulitis of leg, right (7) Chronic generalized pain disorder (8) Cocaine abuse (9) copd exac, pna (10) copd exac, pna (11) COPD with acute exacerbation (12) COPD with exacerbation (13) Depression (14) Diabetes (15) Diabetes (16) Edema (17) Fatty liver (18) HTN (hypertension) (19) Influenza B (20) Major depression (21) Neuropathy (22) NSTEMI, initial episode of care (23) Obesity (24) Opiate addiction (25) Ovarian cyst (26) Palpitations (27) past psych meds (28) Past Psych Meds (29) Personality disorder (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 (31) Sleep apnea (32) Suicide attempt Surgical Problems: (1) H/O foot surgery (2) H/O ovarian cystectomy Social History Problems: (1) ETOH abuse Family History Heart disease Social History Smoking Status: Current Every Day Smoker Alcohol Use: heavy Drug Use: cocaine, marijuana Marital Status: single Housing Status: lives with family Occupation Status: disabled Current/Historical Medications Scheduled Albuterol Hfa (Ventolin Hfa), 2-4 PUFFS INH Q6H Amitriptyline HCl (Amitriptyline HCl), 50 MG PO HS Apixaban (Eliquis), 5 MG PO BID Aspirin (Aspirin EC Low Dose), 81 MG PO QAM Diltiazem Hcl Coated Beads (Diltiazem Hcl Er), 300 MG PO QAM Fluticasone Furoate-Vilanterol (Breo Ellipta), 1 PUFF INH BID Furosemide (Furosemide), 40 MG PO QAM Insulin Aspart (Novolog Flexpen), 8 UNITS SQ TIDM Insulin Glargine (Lantus), 40 UNITS SQ HS Losartan Potassium (Losartan Potassium), 50 MG PO DAILY Metoprolol Succinate (Metoprolol Succinate ER), 100 MG PO BID Omeprazole (Prilosec), 20 MG PO QAM Paliperidone Palmitate (Invega Sustenna), 1 DOSE IM MONTHLY Potassium Chloride Microencaps (Potassium Chloride Er), 20 MEQ PO DAILY Prednisone (Prednisone), 40 MG PO DAILY Ranitidine HCl (Ranitidine HCl), 150 MG PO BID Trazodone HCl (Trazodone HCl), 1 TAB PO HS Valacyclovir HCl (Valacyclovir HCl), 500 MG PO QAM Venlafaxine Hcl (Effexor Extended Rel), 75 MG PO DAILY Scheduled PRN Albuterol Sulf (Proventil 0.083% 2.5MG/3ML), 1 VIAL NEB Q4-6HRS PRN for Wheezing Chlordiazepoxide (Chlordiazepoxide HCl), 25 MG PO DAILY PRN for alcohol withdrawal/anxiety Diphenhydramine Hcl (Benadryl Allergy), 25 MG PO Q4H PRN for Itching Guaifenesin (Mucinex Maximum Strength), 1 TAB PO BID PRN for PRN Hydrocodone/Acetaminophen ([place] 10/325 Tab), 1 TAB PO TID PRN for Pain Lactulose (Constulose), 45 ML PO DAILY PRN for Constipation Lorazepam (Lorazepam), 0.5 MG PO BID PRN for Anxiety/Agitation Allergies Coded Allergies: Haloperidol (Verified Allergy, Severe, TONGUE SWELLING, 08/23/16) Margarine (Verified Allergy, Severe, RASH, 08/23/16) Pt reported an allergy to butter & margarine (causes swelling), though stated she is not allergic to milk. Penicillins (Verified Allergy, Unknown, UNKNOWN, 08/23/16) PER [facility] IN [facility] Sulfamethoxazole w/Trimethoprim (Verified Allergy, Unknown, ., 08/23/16) Morphine (Verified Adverse Reaction, Mild, HEADACHE, 08/23/16) Oxycodone (Verified Adverse Reaction, Unknown, ITCH, 08/23/16) Physical Exam Physical Exam Pt refused to be examined Medical Decision & Procedures Laboratory Results ED Course 1453: Past medical records reviewed. The patient was evaluated in room A6. A complete history and physical examination was performed. 1500: The patient is refusing treatment. She is being turned over to the police. Medical Decision The patient is a 51 year old female who presents to the ED with complaints of anxiety. Upon arrival to emergency department the patient is refusing to be examined by either physician or nursing. She wishes to be discharged home. The patient denies being suicidal or homicidal. She promised not to drink any alcohol today and will follow-up with her primary care physician. Impression Primary Impression: Malingering Scribe Attestation The scribe's documentation has been prepared under my direction and personally reviewed by me in its entirety. I confirm that the note above accurately reflects all work, treatment, procedures, and medical decision making performed by me. Departure Information Dispostion Other Referrals No Doctor, Assigned (PCP) Patient Instructions My [facility]
[2016-11-13] MEDS ORDERED: INSDGI SC (15:15)
[2016-11-13] MEDS ORDERED: LACT10SO17 PO (15:15)
[2016-12-10] MEDS ORDERED: PRED10TA PO (10:16)
[2016-12-10] MEDS ORDERED: HYDR-4383 PO (10:16)
[2016-12-10] MEDS ORDERED: IPRASOL4 INH (10:16)
[2016-12-10] MEDS ORDERED: INSDGI SC (10:16)
[2016-12-10] MEDS ORDERED: TRL2 PO (10:16)
[2017-04-06] MEDS ORDERED: METO100T44 PO (00:46)
== END 2016-09-28 15:26 | disposition left against medical advice (07) ==
LOC: EDBD 14:45 → C.EDC 14:47 → C.EDA 15:26
DX: Z76.5 Malingerer [conscious simulation] (principal); F10.129 Alcohol abuse with intoxication, unspecified; I48.91 Unspecified atrial fibrillation; F19.10 Other psychoactive substance abuse, uncomplicated; J44.1 Chronic obstructive pulmonary disease with (acute) exacerbation; F32.9 Major depressive disorder, single episode, unspecified; I10 Essential (primary) hypertension; E11.40 Type 2 diabetes mellitus with diabetic neuropathy, unspecified; E66.9 Obesity, unspecified; G47.30 Sleep apnea, unspecified; Z91.5 Personal history of self-harm; Z82.49 Family history of ischemic heart disease and other diseases of the circulatory system; F17.210 Nicotine dependence, cigarettes, uncomplicated; Z79.82 Long term (current) use of aspirin; Z79.4 Long term (current) use of insulin; Z79.52 Long term (current) use of systemic steroids; Z79.899 Other long term (current) drug therapy

== ENCOUNTER → 2016-10-02 | Outpatient (CLI) | payer OTHER ==
[~2016-10-02] MED LIST changes: +ALBINS/ INH; +ATOR-24 PO; +AZIT-60 PO; +CEFU1TAB36 PO; +CLR10 PO; +DILT300C21 PO; +HYDR-4079 PO; +HYDR10SY2 PO; +HYZ/50125 PO; +INSDGI SC; +INSU100I SQ; +INSU100I23 SQ; +IPRA1AER2 INH; +IPRASOL4 INH; +IPRASOL4 NEB; +LACT10SO17 PO; +LORA-741 PO; +MELO15TA4 PO; +METO100T44 PO; +MOME200A INH; +NVLG SQ; +PERP1TAB10 PO; +PERP4TAB37 PO; +PRED10TA PO; +PRED20TA2 PO; +PRED50TA PO; +SYMIN160 INH; +TPM/50 PO; +TRAZ100T29 PO; +TRL2 PO; +VENL75CA PO; +ZNF/4 PO; +[UNRECOGNIZED DRUG - CODE] PO
--- NOTE | 2016-10-02 11:34 | DIAGNOSTIC IMAGING REPORT ---
C-SPINE ROUTINE W/FLEX EXT CLINICAL HISTORY: Neck pain COMPARISON STUDY: CT scan dated 09/20/2015 FINDINGS: The prevertebral soft tissues are normal. No acute fractures or subluxations are visualized. There is no instability on flexion or extension. There are mild degenerative changes present most pronounced the C6-7 level. IMPRESSION: 1. Degenerative changes most pronounced the C6-7 level 2. No fractures or subluxations 3. No evidence of instability on flexion or extension Electronically signed by: Dawood Diaz M.D. 10/02/2016 11:33 AM Dictated Date/Time: 10/02/2016 11:31 AM
--- NOTE | 2016-10-02 11:48 | DIAGNOSTIC IMAGING REPORT ---
LUMBAR SPINE 7 VIEWS, with flexion and extension HISTORY: Low back PAIN COMPARISON: None. FINDINGS: There is no fracture. No subluxation. Disc spaces are preserved for age. Mild facet degenerative changes at L5-S1. The alignment remains intact through both flexion and extension. Tiny endplate osteophytes at L4 and L5. IMPRESSION: No fracture or subluxation within the lumbar spine. The alignment remains intact through both flexion and extension. Electronically signed by: Vipul Gilmore M.D. 10/02/2016 11:47 AM Dictated Date/Time: 10/02/2016 11:45 AM
[2016-10-02 13:04] LABS: C-REACTIVE PROTEIN 1.82 mg/dl (0-0.29); RHEUMATOID FACTOR < 10.0 U/mL (0-15)
== END | disposition home or self-care (01) ==
LOC: C.RAD 10:22
PROVIDERS: ATTEND Physician Assistant
DX: M54.2 Cervicalgia (principal); M54.5 Low back pain

== ENCOUNTER 2016-10-23 02:53 | Emergency (ER) | payer OTHER ==
[~2016-10-23] VITALS: Ht 167.6 cm; Wt 136.0 kg
[~2016-10-23 02:53] MED LIST changes: -ALBINS/ INH; -ATOR-24 PO; -AZIT-60 PO; -CEFU1TAB36 PO; -CLR10 PO; -DILT300C21 PO; -HYDR-4079 PO; -HYDR10SY2 PO; -HYZ/50125 PO; -INSDGI SC; -INSU100I SQ; -INSU100I23 SQ; -IPRA1AER2 INH; -IPRASOL4 INH; -IPRASOL4 NEB; -LACT10SO17 PO; -LORA-741 PO; -MELO15TA4 PO; -METO100T44 PO; -MOME200A INH; -NVLG SQ; -PERP1TAB10 PO; -PERP4TAB37 PO; -PRED10TA PO; -PRED20TA2 PO; -PRED50TA PO; -SYMIN160 INH; -TPM/50 PO; -TRAZ100T29 PO; -TRL2 PO; -VENL75CA PO; -ZNF/4 PO; -[UNRECOGNIZED DRUG - CODE] PO
--- NOTE | 2016-10-23 02:55 | EMERGENCY ROOM VISIT NOTE ---
History Report prepared by Domenico: Alphonso Murillo Under the Supervision of: Carolyne DesirO. First contact with patient: 02:51 Chief Complaint: PALPITATIONS Stated Complaint: PALPITATIONS History of Present Illness The patient is a 51 year old female who presents to the Emergency Room with complaints of palpitations that began 7 hours ago. She was drinking alcohol tonight, when she began having chest pain and heart palpitations. She then called the ambulance to come to the ED. She has a past medical history of atrial fibrillation, panic attacks, COPD, and emphysema. She is also experiencing bilateral leg pain. Source of History: patient Onset: 7 hours ago Position: chest Symptom Intensity: moderate Quality: other (palpitations) Timing: constant Associated Symptoms: + chest pain Note: She is experiencing bilateral leg pain. Review of Systems See HPI for pertinent positives and negatives. A total of ten systems were reviewed and were otherwise negative. Past Medical & Surgical Medical Problems: (1) Acute bronchitis (2) Afib (3) Alcohol abuse (4) Atrial fibrillation (5) Benzodiazepine abuse (6) Cellulitis of leg, right (7) Chronic generalized pain disorder (8) Cocaine abuse (9) copd exac, pna (10) copd exac, pna (11) COPD with acute exacerbation (12) COPD with exacerbation (13) Depression (14) Diabetes (15) Diabetes (16) Edema (17) Fatty liver (18) HTN (hypertension) (19) Influenza B (20) Major depression (21) Neuropathy (22) NSTEMI, initial episode of care (23) Obesity (24) Opiate addiction (25) Ovarian cyst (26) Palpitations (27) past psych meds (28) Past Psych Meds (29) Personality disorder (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 Social History Alcohol Use: occasionally Drug Use: cocaine Marital Status: single Housing Status: lives with family Occupation Status: disabled Current/Historical Medications Scheduled Albuterol Hfa (Ventolin Hfa), 2-4 PUFFS INH Q6H Amitriptyline HCl (Amitriptyline HCl), 50 MG PO HS Apixaban (Eliquis), 5 MG PO BID Aspirin (Aspirin EC Low Dose), 81 MG PO QAM Diltiazem Hcl Coated Beads (Diltiazem Hcl Er), 300 MG PO QAM Fluticasone Furoate-Vilanterol (Breo Ellipta), 1 PUFF INH BID Furosemide (Furosemide), 40 MG PO QAM Insulin Aspart (Novolog Flexpen), 8 UNITS SQ TIDM Insulin Glargine (Lantus), 40 UNITS SQ HS Losartan Potassium (Losartan Potassium), 50 MG PO DAILY Metoprolol Succinate (Metoprolol Succinate ER), 100 MG PO BID Omeprazole (Prilosec), 20 MG PO QAM Paliperidone Palmitate (Invega Sustenna), 1 DOSE IM MONTHLY Potassium Chloride Microencaps (Potassium Chloride Er), 20 MEQ PO DAILY Prednisone (Prednisone), 40 MG PO DAILY Ranitidine HCl (Ranitidine HCl), 150 MG PO BID Trazodone HCl (Trazodone HCl), 1 TAB PO HS Valacyclovir HCl (Valacyclovir HCl), 500 MG PO QAM Venlafaxine Hcl (Effexor Extended Rel), 75 MG PO DAILY Scheduled PRN Albuterol Sulf (Proventil 0.083% 2.5MG/3ML), 1 VIAL NEB Q4-6HRS PRN for Wheezing Chlordiazepoxide (Chlordiazepoxide HCl), 25 MG PO DAILY PRN for alcohol withdrawal/anxiety Diphenhydramine Hcl (Benadryl Allergy), 25 MG PO Q4H PRN for Itching Guaifenesin (Mucinex Maximum Strength), 1 TAB PO BID PRN for PRN Hydrocodone/Acetaminophen ([place] 10/325 Tab), 1 TAB PO TID PRN for Pain Lactulose (Constulose), 45 ML PO DAILY PRN for Constipation Lorazepam (Lorazepam), 0.5 MG PO BID PRN for Anxiety/Agitation Allergies Coded Allergies: Haloperidol (Verified Allergy, Severe, TONGUE SWELLING, 08/23/16) Margarine (Verified Allergy, Severe, RASH, 08/23/16) Pt reported an allergy to butter & margarine (causes swelling), though stated she is not allergic to milk. Penicillins (Verified Allergy, Unknown, UNKNOWN, 08/23/16) PER [facility] IN [facility] Sulfamethoxazole w/Trimethoprim (Verified Allergy, Unknown, ., 08/23/16) Morphine (Verified Adverse Reaction, Mild, HEADACHE, 08/23/16) Oxycodone (Verified Adverse Reaction, Unknown, ITCH, 08/23/16) Physical Exam Vital Signs Date Time Temp Pulse Resp B/P Pulse Ox O2 Delivery O2 Flow Rate FiO2 10/23/16 03:04 36.7 91 24 125/63 95 Room Air 10/23/16 03:04 95 Room Air Physical Exam GENERAL: Awake, alert, in no distress. Alcohol on breath. HENT: Normocephalic, atraumatic. Oropharynx unremarkable. EYES: Normal conjunctiva. Sclera non-icteric. NECK: Supple. No nuchal rigidity. FROM. No JVD. RESPIRATORY: Clear to auscultation. CARDIAC: Regular rate, normal rhythm. Extremities warm and well perfused. Pulses equal. ABDOMEN: Soft, non-distended. No tenderness to palpation. No rebound or guarding. No masses. RECTAL: Deferred. MUSCULOSKELETAL: Chest examination reveals no tenderness. The back is symmetrical on inspection without obvious abnormality. There is no CVA tenderness to palpation. No joint edema. LOWER EXTREMITIES: Calves are equal size bilaterally and non-tender. No edema. No discoloration. NEURO: Normal sensorium. No sensory or motor deficits noted. SKIN: No rash or jaundice noted. Diaphoretic. Medical Decision & Procedures ECG Indication: palpitations Rate (beats per minute): 87 Rhythm: sinus rhythm Findings: PVC (occasional), other (Left ventricular hypertrophy, no obvious ST elevations or depressions) ED Course 0251: The patient was evaluated in room B6. A complete history and physical exam was performed. 0323: Ordered Ativan Tab 1 mg PO 0330: I reevaluated the patient. Discussed results and discharge instructions: She verbalized understanding and agreement. The patient is ready for discharge. Medical Decision Differential diagnoses include but are not limited to; palpitations, cardiac dysrhythmia, anxiety, alcohol abuse, and chronic drug abuse. Repeat examination of the patient at 3:20 AM she is resting in no distress no current chest pain her heart rate is less than 100. I discussed the evaluation with the patient is well-known to this emergency department. Patient will be given Ativan for her anxiety. There are no other complaints patient will be discharged with follow-up Impression Primary Impression: Palpitations Scribe Attestation The scribe's documentation has been prepared under my direction and personally reviewed by me in its entirety. I confirm that the note above accurately reflects all work, treatment, procedures, and medical decision making performed by me. Departure Information Dispostion Home / Self-Care Patient Instructions ED Palpitations, My [facility]
[2016-10-23 03:04] VITALS: BP 125/63; PULSE 91; TEMP 36.7; O2SAT 95; Ht 167.6 cm; Wt 136.0 kg
[2016-10-23] MEDS ORDERED: LORAZEPAM 1 MG TAB PO STA (03:23)
[2016-11-13] MEDS ORDERED: INSDGI SC (15:15)
[2016-11-13] MEDS ORDERED: LACT10SO17 PO (15:15)
[2016-12-10] MEDS ORDERED: IPRASOL4 INH (10:16)
[2016-12-10] MEDS ORDERED: INSDGI SC (10:16)
[2016-12-10] MEDS ORDERED: PRED10TA PO (10:16)
[2016-12-10] MEDS ORDERED: TRL2 PO (10:16)
[2016-12-10] MEDS ORDERED: HYDR-4383 PO (10:16)
[2017-04-06] MEDS ORDERED: METO100T44 PO (00:46)
== END 2016-10-23 03:50 | disposition home or self-care (01) ==
LOC: EDBD 02:53 → C.EDB 02:54
DX: R00.2 Palpitations (principal); I48.91 Unspecified atrial fibrillation; J44.9 Chronic obstructive pulmonary disease, unspecified; J43.9 Emphysema, unspecified; F41.0 Panic disorder [episodic paroxysmal anxiety]; F19.10 Other psychoactive substance abuse, uncomplicated; F10.10 Alcohol abuse, uncomplicated; F32.9 Major depressive disorder, single episode, unspecified; E11.9 Type 2 diabetes mellitus without complications; K76.0 Fatty (change of) liver, not elsewhere classified; I10 Essential (primary) hypertension; G47.30 Sleep apnea, unspecified; Z91.5 Personal history of self-harm; Z79.4 Long term (current) use of insulin; Z79.82 Long term (current) use of aspirin; Z79.52 Long term (current) use of systemic steroids; Z79.899 Other long term (current) drug therapy

== ENCOUNTER 2016-10-28 21:13 | Emergency (ER) | payer OTHER ==
[~2016-10-28] VITALS: Ht 167.6 cm; Wt 127.3 kg
[~2016-10-28 21:13] MED LIST changes: -DIPH25CA65 PO; -GUAI1TAB69 PO; -LACT15SO PO; -PRD20 PO
[2016-10-28 21:30] VITALS: TEMP 36.7; Ht 167.6 cm; Wt 127.3 kg
[2016-10-28 21:45] VITALS: O2SAT 96
[2016-10-28] MEDS ORDERED: ALBUT/IPRATROP 3MG/0.5MG NEB 3 ML VIAL INH STA (22:38)
[2016-10-28] MEDS ORDERED: METHYLPREDNISOLONE 125 MG VIAL IV STA (22:38)
[2016-10-28] MEDS ORDERED: HYDROCODONE/ACETAMOPHEN 5/325MG TAB PO STA (22:43)
--- NOTE | 2016-10-28 23:06 | DIAGNOSTIC IMAGING REPORT ---
SINGLE VIEW CHEST CLINICAL HISTORY: Cough and dyspnea. FINDINGS: An AP, portable, upright chest radiograph is compared to study dated 09/09/2016. The examination is degraded by portable technique, large body habitus, apical lordotic positioning, and patient rotation. The cardiomediastinal silhouette is unremarkable. The lungs and pleural spaces are clear. No pneumothorax is seen. The bony thorax is grossly intact. IMPRESSION: No active disease in the chest. Electronically signed by: Valerio Copeland M.D. 10/28/2016 11:05 PM Dictated Date/Time: 10/28/2016 11:04 PM
[2016-10-28 23:26] LABS: EOS % 3.7 %; HEMATOCRIT 36.5 % (37-47); LYMPH % 44.4 %; MEAN CELL VOLUME 94.6 fL (80-100); MEAN CORPUSCULAR HEMOGLOBIN 31.1 pg (25-34); MEAN CORPUSCULAR HGB CONC 32.9 g/dl (32-36); MEAN PLATELET VOLUME 9.9 fL (7.4-10.4); MONO % 9.5 %; NEUT % 41.4 %; PLATELET COUNT 217 K/uL (130-400); RED BLOOD COUNT 3.86 M/uL (4.2-5.4); WHITE BLOOD COUNT 4.01 K/uL (4.8-10.8)
[2016-10-28 23:27] LABS: BASO % 0.5 %; BASO ABS # 0.02 K/uL (0-0.2); COMPLETE YES; IG% 0.5 %; LYMPH ABS # 1.78 K/uL (1.2-3.4)
[2016-10-28] MEDS ORDERED: SYMIN160 INH (23:37)
[2016-10-28] MEDS ORDERED: LORA-741 PO (23:37)
[2016-10-28] MEDS ORDERED: CLR10 PO (23:37)
[2016-10-28] MEDS ORDERED: TRAZ100T29 PO (23:37)
[2016-10-28] MEDS ORDERED: ALBINS/ INH (23:37)
[2016-10-29 00:05] LABS: ALT/SGPT 43 U/L (12-78); AST/SGOT 15 U/L (15-37); BLOOD UREA NITROGEN 8 mg/dl (7-18); BUN/CREATININE RATIO 9.8 (10-20); CALCIUM 8.5 mg/dl (8.5-10.1); CARBON DIOXIDE 29 mmol/L (21-32); CHLORIDE 104 mmol/L (98-107); CREATININE 0.82 mg/dl (0.60-1.20); GLUCOSE 163 mg/dl (70-99); POTASSIUM 3.9 mmol/L (3.5-5.1); SODIUM 141 mmol/L (136-145)
[2016-10-29 00:20] LABS: ALB/GLOB RATIO 0.8 (0.9-2); ALKALINE PHOSPHATASE 148 U/L (45-117)
[2016-10-29] MEDS ORDERED: PRED50TA PO (01:13)
--- NOTE | 2016-10-29 01:14 | EMERGENCY ROOM VISIT NOTE ---
History First contact with patient: 22:26 Chief Complaint: RESPIRATORY PROBLEMS Stated Complaint: LOW O2 STATS Nursing Triage Summary: pt reports chest tightness and SOB since friday. states her head hurts and she has sinus pain. states she has been coughing up mucous. pt states she has home o2 for night time use and has been using it more regularly. pt reports she was recently on prednisone for similar symptoms, "it helped but now it's back." pt alert and oriented x4. History of Present Illness The patient is a 51 year old female who presents to the Emergency Room with complaints of shortness of breath for 2 days. The patient states that she has been "not feeling well" for the past 2-3 days. She has had shortness of breath and cough. She has been using her nebulizers at home 4 times daily. She states that she typically uses 2 L of oxygen at night, but has been using it during the day as well for the past few days. She has a history of COPD and CHF. She has a history of pulmonary embolism and takes anticoagulants for this , which she has been taking as prescribed. She states that she ran out of her oxygen at home and called to order more, but will not be able to get into later this week. She admits to cocaine use and alcohol use and states that she drank alcohol earlier today. She does report she has been placed on prednisone for bronchitis a few weeks ago. She denies any fevers, chest pain, nausea, vomiting , headaches or neck pain. Review of Systems A complete 10 point review of systems was reviewed with the patient with pertinent positives and negatives as per history of present illness. All else were negative. Past Medical/Surgical History Medical Problems: (1) Acute bronchitis (2) Afib (3) Alcohol abuse (4) Atrial fibrillation (5) Benzodiazepine abuse (6) Cellulitis of leg, right (7) Chronic generalized pain disorder (8) Cocaine abuse (9) copd exac, pna (10) copd exac, pna (11) COPD with acute exacerbation (12) COPD with exacerbation (13) Depression (14) Diabetes (15) Diabetes (16) Edema (17) Fatty liver (18) HTN (hypertension) (19) Influenza B (20) Major depression (21) Neuropathy (22) NSTEMI, initial episode of care (23) Obesity (24) Opiate addiction (25) Ovarian cyst (26) Palpitations (27) past psych meds (28) Past Psych Meds (29) Personality disorder (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 (31) Sleep apnea (32) Suicide attempt Surgical Problems: (1) H/O foot surgery (2) H/O ovarian cystectomy Social History Problems: (1) ETOH abuse Family History Heart disease Social History Smoking Status: Current Every Day Smoker Alcohol Use: occasionally Drug Use: cocaine Marital Status: single Housing Status: lives with family Occupation Status: disabled Current/Historical Medications Scheduled Apixaban (Eliquis), 5 MG PO BID Aspirin (Aspirin EC Low Dose), 81 MG PO QAM Budesonide/Formoterol Fumarate (Symbicort 160/4.5 Inhaler), 2 PUFFS INH BID Diltiazem Hcl Coated Beads (Diltiazem Hcl Er), 300 MG PO QAM Fluticasone Furoate-Vilanterol (Breo Ellipta), 1 PUFF INH BID Furosemide (Furosemide), 40 MG PO QAM Insulin Aspart (Novolog Flexpen), 8 UNITS SQ TIDM Insulin Glargine (Lantus), 40 UNITS SQ HS Loratadine (Claritin), 10 MG PO DAILY Losartan Potassium (Losartan Potassium), 50 MG PO DAILY Metoprolol Succinate (Metoprolol Succinate ER), 100 MG PO BID Omeprazole (Prilosec), 20 MG PO QAM Potassium Chloride Microencaps (Potassium Chloride Er), 20 MEQ PO DAILY Prednisone (Prednisone), 50 MG PO DAILY Ranitidine HCl (Ranitidine HCl), 150 MG PO BID Trazodone Hcl (Trazodone), 150 MG PO HS Valacyclovir HCl (Valacyclovir HCl), 500 MG PO QAM Scheduled PRN Albuterol Hfa (Ventolin Hfa), 2 PUFFS INH Q6H PRN for SOB/Wheezing Albuterol Sulf (Proventil 0.083% 2.5MG/3ML), 2.5 MG INH Q4-6HRS PRN for Wheezing Hydrocodone/Acetaminophen ([place] 10/325 Tab), 1 TAB PO TID PRN for Pain Lorazepam (Ativan), 0.5 MG PO BID PRN for Anxiety/Agitation Allergies Coded Allergies: Haloperidol (Verified Allergy, Severe, TONGUE SWELLING, 10/28/16) Margarine (Verified Allergy, Severe, RASH, 10/28/16) Pt reported an allergy to butter & margarine (causes swelling), though stated she is not allergic to milk. Penicillins (Verified Allergy, Unknown, UNKNOWN, 10/28/16) PER [facility]ISSY IN [facility] Sulfamethoxazole w/Trimethoprim (Verified Allergy, Unknown, ., 10/28/16) Morphine (Verified Adverse Reaction, Mild, HEADACHE, 10/28/16) Oxycodone (Verified Adverse Reaction, Unknown, ITCH, 10/28/16) Physical Exam Vital Signs Date Time Temp Pulse Resp B/P Pulse Ox O2 Delivery O2 Flow Rate FiO2 10/29/16 01:33 70 18 171/81 95 10/29/16 00:36 75 18 99/73 94 Room Air 10/28/16 23:22 77 18 110/71 95 Room Air 10/28/16 22:14 74 10/28/16 21:58 98 Nasal Cannula 2.0 10/28/16 21:45 96 Nasal Cannula 2.0 10/28/16 21:30 36.7 58 20 138/67 97 Nasal Cannula 2.0 Physical Exam VITALS: Vitals are noted on the nurse's note and reviewed by myself. Vital signs stable. GENERAL: This is a 51-year-old female, in no acute distress, nondiaphoretic, well-developed well-nourished. SKIN: The skin was without rashes. EARS: External auditory canals clear, tympanic membranes pearly silva without erythema or effusion bilaterally. EYES: Pupils equal round and reactive to light and accommodation. MOUTH: Mucous membranes moist. Tonsils are not enlarged. Pharynx without erythema or exudate. NECK: Supple without nuchal rigidity. No lymphadenopathy. HEART: Regular rate and rhythm without murmurs gallops or rubs. LUNGS: Mild expiratory wheezes throughout all lung landry. No retractions or accessory muscle use. ABDOMEN: Soft, nontender to palpation. EXTREMITIES: 1+ pitting edema to bilateral lower extremities. NEURO: Patient was alert and oriented to person place and time. Medical Decision & Procedures ER Provider Diagnostic Interpretation: SINGLE VIEW CHEST CLINICAL HISTORY: Cough and dyspnea. FINDINGS: An AP, portable, upright chest radiograph is compared to study dated 09/09/2016. The examination is degraded by portable technique, large body habitus, apical lordotic positioning, and patient rotation. The cardiomediastinal silhouette is unremarkable. The lungs and pleural spaces are clear. No pneumothorax is seen. The bony thorax is grossly intact. IMPRESSION: No active disease in the chest. Laboratory Results 10/28/16 23:08 Red Blood Count 3.86, Mean Corpuscular Volume 94.6, Mean Corpuscular Hemoglobin 31.1, Mean Corpuscular Hemoglobin Concent 32.9, Mean Platelet Volume 9.9, Neutrophils (%) (Auto) 41.4, Lymphocytes (%) (Auto) 44.4, Monocytes (%) (Auto) 9.5, Eosinophils (%) (Auto) 3.7, Basophils (%) (Auto) 0.5, Neutrophils # (Auto) 1.66, Lymphocytes # (Auto) 1.78, Monocytes # (Auto) 0.38, Eosinophils # (Auto) 0.15, Basophils # (Auto) 0.02 10/28/16 23:08 Test 10/28/16 23:08 White Blood Count 4.01 K/uL (4.8-10.8) Red Blood Count 3.86 M/uL (4.2-5.4) Hemoglobin 12.0 g/dL (12.0-16.0) Hematocrit 36.5 % (37-47) Mean Corpuscular Volume 94.6 fL (80-100) Mean Corpuscular Hemoglobin 31.1 pg (25-34) Mean Corpuscular Hemoglobin Concent 32.9 g/dl (32-36) Platelet Count 217 K/uL (130-400) Mean Platelet Volume 9.9 fL (7.4-10.4) Neutrophils (%) (Auto) 41.4 % Lymphocytes (%) (Auto) 44.4 % Monocytes (%) (Auto) 9.5 % Eosinophils (%) (Auto) 3.7 % Basophils (%) (Auto) 0.5 % Neutrophils # (Auto) 1.66 K/uL (1.4-6.5) Lymphocytes # (Auto) 1.78 K/uL (1.2-3.4) Monocytes # (Auto) 0.38 K/uL (0.11-0.59) Eosinophils # (Auto) 0.15 K/uL (0-0.5) Basophils # (Auto) 0.02 K/uL (0-0.2) RDW Standard Deviation 52.5 fL (36.4-46.3) RDW Coefficient of Variation 15.3 % (11.5-14.5) Immature Granulocyte % (Auto) 0.5 % Immature Granulocyte # (Auto) 0.02 K/uL (0.00-0.02) Anion Gap 8.0 mmol/L (3-11) Est Creatinine Clear Calc Drug Dose 109.5 ml/min Estimated GFR () 95.4 Estimated GFR (Non- 82.3 BUN/Creatinine Ratio 9.8 (10-20) Calcium Level 8.5 mg/dl (8.5-10.1) Total Bilirubin < 0.1 mg/dl (0.2-1) Aspartate Amino Transf (AST/SGOT) 15 U/L (15-37) Alanine Aminotransferase (ALT/SGPT) 43 U/L (12-78) Alkaline Phosphatase 148 U/L (45-117) Troponin I 0.172 ng/ml (0-0.045) Pro-B-Type Natriuretic Peptide 99 pg/ml (0-900) Total Protein 6.7 gm/dl (6.4-8.2) Albumin 3.0 gm/dl (3.4-5.0) Globulin 3.7 gm/dl (2.5-4.0) Albumin/Globulin Ratio 0.8 (0.9-2) Ethyl Alcohol mg/dL 14.0 mg/dl (0-3) Medications Administered Medications (Trade) Dose Ordered Sig/Lucien Route Start Time Stop Time Status Last Admin Dose Admin Albuterol/ Ipratropium (Duoneb) 3 ml NOW STAT INH 10/28/16 22:38 10/28/16 22:44 DC 10/28/16 23:21 3 ML Methylprednisolone Sodium Succinate (Solu-Medrol IV) 125 mg NOW STAT IV 10/28/16 22:38 10/28/16 22:44 DC 10/28/16 23:21 125 MG Acetaminophen/ Hydrocodone Bitart ([place] 5/325 Tab) 1 tab NOW STAT PO 10/28/16 22:43 10/28/16 22:45 DC 10/28/16 23:22 1 TAB ECG Rate (beats per minute): 72 Rhythm: normal sinus Findings: no acute ischemic change, no ectopy Change: no significant change ED Course The patient was evaluated as above. Labs were drawn and IV access was obtained. Patient was medicated with 125 mg Solu-Medrol IV and a DuoNeb treatment. Chest x-ray was performed and read by radiology as above. Patient was reevaluated and was sleeping. She was woken up and findings were discussed. Discharge instructions were reviewed with the patient. The patient verbalized understanding of my assessment and treatment plan and was discharged home in good condition. Medical Decision Differential diagnosis includes COPD exacerbation, bronchitis, CHF, ACS, pneumonia, among others. The patient is a 51-year-old female who presents today complaining of cough and shortness of breath. Labs revealed no leukocytosis, anemia, or concerning electrolyte abnormalities. Troponin was found to be elevated at 0.172, but this is not elevated from the patient's baseline. EKG was interpreted by myself and shows a normal sinus rhythm, unchanged from previous EKG. The patient was not hypoxic on presentation. After receiving her duoneb and steroids, O2 saturation was rechecked and did not drop below 94%. I do feel the patient has an acute bronchitis, but given her stable vital signs I feel that she can follow up as an outpatient. I informed her that we are not able to provide her with home oxygen through the emergency department. She should return here for any worsening of her current condition or new/concerning symptoms. The patient's case was reviewed with Dr. Gauthier, ED attending physician, who agreed with my assessment and treatment plan. Based on the patient's presentation and work up, I feel the patient is stable for outpatient treatment. The patient was educated to return to the emergency department for any worsening of their current condition or new/concerning symptoms. She will follow up with her PCP tomorrow. Impression Primary Impression: Acute bronchitis Departure Information Dispostion Home / Self-Care Condition GOOD Prescriptions Prednisone (Prednisone) 50 Mg Tab 50 MG PO DAILY for 5 Days, #5 TAB Prov: Sandhya Zaragoza ., CHANTEL 10/29/16 Referrals Alonso Zuluaga M.D. (PCP) Patient Instructions My [facility] Additional Instructions Take the prednisone as prescribed. Follow-up with your primary care provider tomorrow. You should also call to get your oxygen tank replaced tomorrow. Return to the emergency department with any new/concerning symptoms.
[2016-10-29 01:33] VITALS: BP 171/81; PULSE 70; O2SAT 95
[2016-11-13] MEDS ORDERED: INSDGI SC (15:15)
[2016-11-13] MEDS ORDERED: LACT10SO17 PO (15:15)
[2016-12-10] MEDS ORDERED: INSDGI SC (10:16)
[2016-12-10] MEDS ORDERED: TRL2 PO (10:16)
[2016-12-10] MEDS ORDERED: HYDR-4383 PO (10:16)
[2016-12-10] MEDS ORDERED: IPRASOL4 INH (10:16)
[2016-12-10] MEDS ORDERED: PRED10TA PO (10:16)
[2017-04-06] MEDS ORDERED: METO100T44 PO (00:46)
== END 2016-10-29 01:33 | disposition home or self-care (01) ==
LOC: C.EDB 21:14 → C.EDC 10-29 01:33
DX: J20.9 Acute bronchitis, unspecified (principal); J44.9 Chronic obstructive pulmonary disease, unspecified; I50.9 Heart failure, unspecified; I48.91 Unspecified atrial fibrillation; F10.10 Alcohol abuse, uncomplicated; F19.10 Other psychoactive substance abuse, uncomplicated; F14.10 Cocaine abuse, uncomplicated; E11.9 Type 2 diabetes mellitus without complications; F32.9 Major depressive disorder, single episode, unspecified; I10 Essential (primary) hypertension; I25.2 Old myocardial infarction; E66.9 Obesity, unspecified; G47.30 Sleep apnea, unspecified; F17.210 Nicotine dependence, cigarettes, uncomplicated; Z82.49 Family history of ischemic heart disease and other diseases of the circulatory system; Z79.82 Long term (current) use of aspirin; Z79.4 Long term (current) use of insulin; Z79.52 Long term (current) use of systemic steroids; Z79.899 Other long term (current) drug therapy

== ENCOUNTER → 2016-11-28 | Day surgery (SDC) | payer OTHER ==
[2016-11-13 15:16] VITALS: Ht 167.6 cm; Wt 136.4 kg
[~2016-11-28] VITALS: Ht 167.6 cm; Wt 136.4 kg
[~2016-11-28] MED LIST changes: +ALBINS/ INH; -ALBINS/ NEB; -AMT25 PO; -ASPEC81 PO; +ATOR-24 PO; -ATV5 PO; +AZIT-60 PO; +CEFU1TAB36 PO; +CLR10 PO; +DILT300C21 PO; -DSY/150 PO; -EFFSR75 PO; +HYDR-4079 PO; +HYDR10SY2 PO; +HYZ/50125 PO; +INSDGI SC; +INSU100I SQ; +INSU100I23 SQ; +IPRA1AER2 INH; +IPRASOL4 INH; +IPRASOL4 NEB; +LACT10SO17 PO; -LBR25 PO; +LIDOCAINE HCL 2% 2 ML VIAL (20MG/ML) ONE; +LORA-741 PO; +MELO15TA4 PO; +METO100T44 PO; +MOME200A INH; +NVLG SQ; -PALI117I IM; +PERP1TAB10 PO; +PERP4TAB37 PO; -POTA20TA13 PO; +PRED10TA PO; +PRED20TA2 PO; +PROPOFOL IV EMULSION 10 MG/ML 20 ML VIAL IV ONE; +SODIUM CHLORIDE 0.9% 500ML 500 ML IV ONE; +SYMIN160 INH; +TPM/50 PO; +TRAZ100T29 PO; +TRL2 PO; +VENL75CA PO; +ZNF/4 PO; +[UNRECOGNIZED DRUG - CODE] PO
--- NOTE | 2016-11-28 12:46 | Endo History and Physical ---
History & Physical Date of Service: Nov 28, 2016. Chief Complaint: screeening Referring Physician: Denise Luu PA-C History of Present Illness + FH CRC father; on Eliquis for DVT; occasional GI bleeding for colonscopy Past Medical History Atrial Fibrillation, Diabetes, Eating Disorders, Asthma, Gastrointestinal Disorder, Anxiety, Reflux, High Cholesterol, Sleep Apnea, Heart Disease, COPD, Depression Past Surgical History Hx Cardiac Surgery: Yes (HEART CATH-NO STENTS) Hx Internal Defibrillator: No Hx Pacemaker: No Hx Abdominal Surgery: Yes (OVARIAN CYST REMOVED X 2) Hx of Implantable Prosthesis: No Hx Post-Op Nausea and Vomiting: No Hx Cancer Surgery: No Hx Thoracic Surgery: No Hx Orthopedic: Yes (RT PLANTAR FASCIITIS REPAIR) Hx Urinary Tract Surgery: No Family History Colon CA Social History Smoking Status: Current Every Day Smoker Hx Substance Use: No Hx Alcohol Use: Yes (OCCASIONALLY) Allergies Coded Allergies: Haloperidol (Verified Allergy, Severe, TONGUE SWELLING, 11/13/16) Margarine (Verified Allergy, Severe, RASH, 11/13/16) Pt reported an allergy to butter & margarine (causes swelling), though stated she is not allergic to milk. Penicillins (Verified Allergy, Unknown, UNKNOWN, 11/13/16) PER [facility]ISSY IN [facility] Sulfamethoxazole w/Trimethoprim (Verified Allergy, Unknown, RASH, 11/13/16) Morphine (Verified Adverse Reaction, Mild, HEADACHE, 11/13/16) Oxycodone (Verified Adverse Reaction, Unknown, ITCH, 11/13/16) Current Medications Reported Home Medications Medications Dose Route/Sig Max Daily Dose Days Date Category Dose Instructions Chronulac (Lactulose) 10 Gm/15 Ml Syrp 30 Ml PO DAILY PRN 11/13/16 Reported Lantus (Insulin Glargine) 100 Unit/Ml Inj 48 Units SC QPM 11/13/16 Reported Claritin (Loratadine) 10 Mg Tab 10 Mg PO DAILY PRN 10/28/16 Reported Symbicort 160/4.5 Inhaler (Budesonide/Formoterol Fumarate) 120 Puffs/ Aero 2 Puffs INH BID 30 10/28/16 Reported Proventil 0.083% 2.5MG/3ML (Albuterol Sulf) 2.5 Mg/3 Ml Nebu 2.5 Mg INH Q4-6HRS PRN 10/28/16 Reported Ativan (Lorazepam) 0.5 Mg Tab 0.5 Mg PO BID PRN 10/28/16 Reported Trazodone (Trazodone HCl) 100 Mg Tab 150 Mg PO HS PRN 10/28/16 Reported Ventolin Hfa (Albuterol) 200 Puffs/15310 Mcg Aers 2 Puffs INH Q6H PRN 08/23/16 Reported Breo Ellipta (Fluticasone Furoate-Vilanterol) 1 Inh Inh 1 Puff INH BID 07/18/16 Reported Novolog Flexpen (Insulin Aspart) 100 Units/Ml Inj 8 Units SQ TIDM 05/27/16 Reported INJECT 8 UNITS SQ PRIOR TO MEALS, IF ABOVE 185 PT SAID INJECTING 8 UNITS TID, IF OVER 200 INJECT 2 ADDTIONAL UNITS Ranitidine HCl 150 Mg Tab 150 Mg PO BID 03/11/16 Reported Losartan Potassium 50 Mg Tab 50 Mg PO QAM 03/11/16 Reported Diltiazem Hcl Er (Diltiazem Hcl Coated Beads) 300 Mg Cap 300 Mg PO QAM 03/11/16 Reported Furosemide 40 Mg Tab 40 Mg PO QAM 03/11/16 Reported Eliquis (Apixaban) 5 Mg Tab 5 Mg PO BID 03/11/16 Reported ON HOLD FOR COLONOSCOPY Valacyclovir HCl 500 Mg Tab 500 Mg PO QAM 03/11/16 Reported [place] 10/325 Tab (Acetaminophen/Hydrocodone Bitart) 1 Tab Tab 1 Tab PO TID PRN 03/11/16 Reported Metoprolol Succinate ER (Metoprolol Succinate) 100 Mg Tabcr 100 Mg PO BID 01/02/16 Reported Prilosec (Omeprazole) 20 Mg Cap 20 Mg PO QAM 04/26/15 Reported Vital Signs Weight (Kilograms): 136.36 Height (Feet): 5 Height (Inches): 6 Date Time Temp Pulse Resp B/P (MAP) Pulse Ox O2 Delivery O2 Flow Rate FiO2 11/28/16 12:31 36.6 73 20 154/104 96 Room Air Physical Exam AAO x3 nl s1s2 Lungs CTA Abd soft NT/ND + BS - CCE Assessment and Plan colon
--- NOTE | 2016-11-28 13:16 | Discharge Instructions ---
Endoscopy Patient Instructions Date / Procedure(s) Performed Nov 28, 2016. Colonoscopy Allergy Information Coded Allergies: Haloperidol (Verified Allergy, Severe, TONGUE SWELLING, 11/13/16) Margarine (Verified Allergy, Severe, RASH, 11/13/16) Pt reported an allergy to butter & margarine (causes swelling), though stated she is not allergic to milk. Penicillins (Verified Allergy, Unknown, UNKNOWN, 11/13/16) PER CHRISSY IN [facility] Sulfamethoxazole w/Trimethoprim (Verified Allergy, Unknown, RASH, 11/13/16) Morphine (Verified Adverse Reaction, Mild, HEADACHE, 11/13/16) Oxycodone (Verified Adverse Reaction, Unknown, ITCH, 11/13/16) Discharge Date / Findings Nov 28, 2016. normal colon Medication Instructions Stopped Medication(s): stopped Eliquis 2 weeks ago Restart Stopped Medication(s): Reported Home Medications Medications Dose Route/Sig Max Daily Dose Days Date Category Dose Instructions Chronulac (Lactulose) 10 Gm/15 Ml Syrp 30 Ml PO DAILY PRN 11/13/16 Reported Lantus (Insulin Glargine) 100 Unit/Ml Inj 48 Units SC QPM 11/13/16 Reported Claritin (Loratadine) 10 Mg Tab 10 Mg PO DAILY PRN 10/28/16 Reported Symbicort 160/4.5 Inhaler (Budesonide/Formoterol Fumarate) 120 Puffs/ Aero 2 Puffs INH BID 30 10/28/16 Reported Proventil 0.083% 2.5MG/3ML (Albuterol Sulf) 2.5 Mg/3 Ml Nebu 2.5 Mg INH Q4-6HRS PRN 10/28/16 Reported Ativan (Lorazepam) 0.5 Mg Tab 0.5 Mg PO BID PRN 10/28/16 Reported Trazodone (Trazodone HCl) 100 Mg Tab 150 Mg PO HS PRN 10/28/16 Reported Ventolin Hfa (Albuterol) 200 Puffs/97635 Mcg Aers 2 Puffs INH Q6H PRN 08/23/16 Reported Breo Ellipta (Fluticasone Furoate-Vilanterol) 1 Inh Inh 1 Puff INH BID 07/18/16 Reported Novolog Flexpen (Insulin Aspart) 100 Units/Ml Inj 8 Units SQ TIDM 05/27/16 Reported INJECT 8 UNITS SQ PRIOR TO MEALS, IF ABOVE 185 PT SAID INJECTING 8 UNITS TID, IF OVER 200 INJECT 2 ADDTIONAL UNITS Ranitidine HCl 150 Mg Tab 150 Mg PO BID 03/11/16 Reported Losartan Potassium 50 Mg Tab 50 Mg PO QAM 03/11/16 Reported Diltiazem Hcl Er (Diltiazem Hcl Coated Beads) 300 Mg Cap 300 Mg PO QAM 03/11/16 Reported Furosemide 40 Mg Tab 40 Mg PO QAM 03/11/16 Reported Eliquis (Apixaban) 5 Mg Tab 5 Mg PO BID 03/11/16 Reported ON HOLD FOR COLONOSCOPY Valacyclovir HCl 500 Mg Tab 500 Mg PO QAM 03/11/16 Reported [place] 10/325 Tab (Acetaminophen/Hydrocodone Bitart) 1 Tab Tab 1 Tab PO TID PRN 03/11/16 Reported Metoprolol Succinate ER (Metoprolol Succinate) 100 Mg Tabcr 100 Mg PO BID 01/02/16 Reported Prilosec (Omeprazole) 20 Mg Cap 20 Mg PO QAM 04/26/15 Reported Reported Home Medications Medications Dose Route/Sig Max Daily Dose Days Date Category Dose Instructions Chronulac (Lactulose) 10 Gm/15 Ml Syrp 30 Ml PO DAILY PRN 11/13/16 Reported Lantus (Insulin Glargine) 100 Unit/Ml Inj 48 Units SC QPM 11/13/16 Reported Claritin (Loratadine) 10 Mg Tab 10 Mg PO DAILY PRN 10/28/16 Reported Symbicort 160/4.5 Inhaler (Budesonide/Formoterol Fumarate) 120 Puffs/ Aero 2 Puffs INH BID 30 10/28/16 Reported Proventil 0.083% 2.5MG/3ML (Albuterol Sulf) 2.5 Mg/3 Ml Nebu 2.5 Mg INH Q4-6HRS PRN 10/28/16 Reported Ativan (Lorazepam) 0.5 Mg Tab 0.5 Mg PO BID PRN 10/28/16 Reported Trazodone (Trazodone HCl) 100 Mg Tab 150 Mg PO HS PRN 10/28/16 Reported Ventolin Hfa (Albuterol) 200 Puffs/10148 Mcg Aers 2 Puffs INH Q6H PRN 08/23/16 Reported Breo Ellipta (Fluticasone Furoate-Vilanterol) 1 Inh Inh 1 Puff INH BID 07/18/16 Reported Novolog Flexpen (Insulin Aspart) 100 Units/Ml Inj 8 Units SQ TIDM 05/27/16 Reported INJECT 8 UNITS SQ PRIOR TO MEALS, IF ABOVE 185 PT SAID INJECTING 8 UNITS TID, IF OVER 200 INJECT 2 ADDTIONAL UNITS Ranitidine HCl 150 Mg Tab 150 Mg PO BID 03/11/16 Reported Losartan Potassium 50 Mg Tab 50 Mg PO QAM 03/11/16 Reported Diltiazem Hcl Er (Diltiazem Hcl Coated Beads) 300 Mg Cap 300 Mg PO QAM 03/11/16 Reported Furosemide 40 Mg Tab 40 Mg PO QAM 03/11/16 Reported Eliquis (Apixaban) 5 Mg Tab 5 Mg PO BID 03/11/16 Reported ON HOLD FOR COLONOSCOPY Valacyclovir HCl 500 Mg Tab 500 Mg PO QAM 03/11/16 Reported [place] 10/325 Tab (Acetaminophen/Hydrocodone Bitart) 1 Tab Tab 1 Tab PO TID PRN 03/11/16 Reported Metoprolol Succinate ER (Metoprolol Succinate) 100 Mg Tabcr 100 Mg PO BID 01/02/16 Reported Prilosec (Omeprazole) 20 Mg Cap 20 Mg PO QAM 04/26/15 Reported OK to resume Eloquis tonight Provider Instructions Activity Restrictions - No exercising or heavy lifting for 24 hours. - Do not drink alcohol the day of the procedure. - Do not drive a car or operate machinery until the day after the procedure. - Do not make any important decisions or sign important papers in 24 hours after the procedure. Following Day: - Return to full activity which may include returning to work/school. Diet Start your diet with liquids and light foods (jello, soup, juice, toast). Then eat your usual diet if not nauseated. Treatment For Common After Affects For mild abdominal pain, bloating, or excessive gas: - Rest - Eat lightly - Lie on right side Follow-Up Information Follow-up with Denise Luu PA-C as scheduled Anesthesia Information What You Should Know You have had a procedure that required some medicine to reduce anxiety and discomfort. This treatment is called moderate sedation. After receiving the treatment, you may be sleepy, but you will be able to breathe on your own. The effects of the treatment may last for several hours. Follow these instructions along with Activity/Diet recommendations noted above: * Do NOT do anything where dizziness or clumsiness would be dangerous. * Rest quietly at home today, then you can be up and about tomorrow. * Have a responsible person stay with you the rest of today. * You may have had an I.V. today. If so, you may take the dressing off later today. Recommendations Call your doctor if: * Trouble breathing * Continuous vomiting for more than 24 hours * Temperature above 101 degrees * Severe abdominal pain or bloating * Pain not relieved by pain medicine ordered * There is increased drainage or redness from any incision * A large amount of rectal bleeding greater than 2-3 tablespoons. (If you had a polyp/s removed or have hemorrhoids, a small amount of blood - from the rectum is to be expected.) * You have any unanswered questions or concerns. IN THE EVENT OF A SERIOUS EMERGENCY, GO TO THE NEAREST EMERGENCY ROOM Your discharge instructions were prepared by provider Karan Abarca. Patient Instructions Signature Page Rebeca Judge Patient (or Guardian) Signature/Date: I have read and understand the instructions given to me by my caregivers. Caregiver/RN/Doctor Signature/Date: The above-named patient and/or guardian has received patient instructions on this date. + Original Patient Signature Page (only) stays with chart. Please make copy for patient.
--- NOTE | 2016-11-28 13:22 | GI REPORT ---
Procedure Date: 11/28/2016 12:28 PM THIS REPORT HAS BEEN AMENDED Addendum Number: 1 Addendum Date: 11/28/2016 1:23:14 PM Consider Gynecology evaluation and EGD if not already performed. Procedure: Colonoscopy Indications: Chronic diarrhea, Rectal bleeding, Family history of colon cancer in a first-degree relative Medicines: Propofol per Anesthesia Complications: No immediate complications. Estimated blood loss: Minimal. Estimated Blood Loss: Estimated blood loss was minimal. Estimated blood loss was minimal. Procedure: Pre-Anesthesia Assessment: - Prior to the procedure, a History and Physical was performed, and patient medications and allergies were reviewed. The patient's tolerance of previous anesthesia was also reviewed. The risks and benefits of the procedure and the sedation options and risks were discussed with the patient. All questions were answered, and informed consent was obtained. Prior Anticoagulants: The patient has taken no previous anticoagulant or antiplatelet agents. ASA Grade Assessment: II - A patient with mild systemic disease. After reviewing the risks and benefits, the patient was deemed in satisfactory condition to undergo the procedure. After I obtained informed consent, the scope was passed under direct vision. Throughout the procedure, the patient's blood pressure, pulse, and oxygen saturations were monitored continuously. The Scope was introduced through the anus and advanced to the terminal ileum, with identification of the appendiceal orifice and IC valve. The colonoscopy was performed without difficulty. The patient tolerated the procedure well. The quality of the bowel preparation was good. Findings: The perianal and digital rectal examinations were normal. Pertinent negatives include normal sphincter tone, no palpable rectal lesions and no anal lesion or abnormality was detected. The ileum and colon (entire examined portion) appeared normal. The rectum, descending colon and ascending colon appeared normal. Biopsies for histology were taken with a cold forceps for evaluation of microscopic colitis. Verification of patient identification for the specimen was done by the physician and nurse using the patient's name and medical record number. The retroflexed view of the distal rectum and anal verge was normal and showed no anal or rectal abnormalities. Non-bleeding internal hemorrhoids were found during retroflexion. The hemorrhoids were mild. Impression: - The terminal ileum and entire examined colon are normal. - The rectum, descending colon and ascending colon are normal. Biopsied. - The distal rectum and anal verge are normal on retroflexion view. Recommendation: - Discharge patient to home (ambulatory). - Resume regular diet. - Continue present medications. - Await pathology results. - Return to referring physician as previously scheduled. - Pt also reproted vomiting of blood, and vaginal bleeding on Eloquis. MD Karan Burnett MD 11/28/2016 1:21:47 PM This report has been signed electronically. Note Initiated On: 11/28/2016 12:28 PM I attest to the content of the Intraoperative Record and orders documented therein, exceptions below MD Karan Burnett MD 11/28/2016 1:23:51 PM This report has been signed electronically.
--- NOTE | 2016-11-28 13:26 | Anesthesiology Progress Note ---
Anesthesia Post Op Note Date & Time Nov 28, 2016 at 13:26 Vital Signs Pain Intensity: 0 Vital Signs Past 12 Hours Date Time Temp Pulse Resp B/P (MAP) Pulse Ox O2 Delivery O2 Flow Rate FiO2 11/28/16 13:15 70 16 138/85 95 Room Air 11/28/16 12:31 36.6 73 20 154/104 96 Room Air Notes Mental Status: alert / awake / arousable, participated in evaluation Pt Amnestic to Procedure: Yes Nausea / Vomiting: adequately controlled Pain: adequately controlled Airway Patency, RR, SpO2: stable & adequate BP & HR: stable & adequate Hydration State: stable & adequate Anesthetic Complications: no major complications apparent
[2016-11-28 13:40] VITALS: BP 120/59; PULSE 74; O2SAT 94
--- NOTE | 2016-11-28 14:51 | History & Physical Bridge Note ---
H&P Re-Evaluation Bridge Note: I have examined the patient, reviewed the History & Physical and in the interval since the performance of the History & Physical I have noted the following changes of clinical significance: AAO x3 Nls1s2 Lungs CTA Abd soft NT/ND + BS - CCE plan : colonoscopy No changes noted
== END | disposition home or self-care (01) ==
LOC: C.GI 11:56
PROVIDERS: ATTEND Internal Medicine Gastroenterology
DX: R19.7 Diarrhea, unspecified (principal); K62.5 Hemorrhage of anus and rectum; K64.8 Other hemorrhoids; Z80.0 Family history of malignant neoplasm of digestive organs; I48.91 Unspecified atrial fibrillation; E11.9 Type 2 diabetes mellitus without complications; E78.00 Pure hypercholesterolemia, unspecified; K21.9 Gastro-esophageal reflux disease without esophagitis; J44.9 Chronic obstructive pulmonary disease, unspecified; G47.30 Sleep apnea, unspecified; F32.9 Major depressive disorder, single episode, unspecified; F41.9 Anxiety disorder, unspecified; F17.210 Nicotine dependence, cigarettes, uncomplicated; Z79.4 Long term (current) use of insulin; Z79.899 Other long term (current) drug therapy

== ENCOUNTER 2016-12-07 11:14 | Emergency (ER) | payer OTHER ==
[~2016-12-07] VITALS: Ht 167.6 cm; Wt 137.0 kg
[~2016-12-07 11:14] MED LIST changes: -ATOR-24 PO; -AZIT-60 PO; -CEFU1TAB36 PO; -DILT300C21 PO; -HYDR-4079 PO; -HYDR10SY2 PO; -HYZ/50125 PO; -INSDGI SQ; -INSU100I SQ; -INSU100I23 SQ; -IPRA1AER2 INH; -IPRASOL4 INH; -IPRASOL4 NEB; -LIDOCAINE HCL 2% 2 ML VIAL (20MG/ML) ONE; -MELO15TA4 PO; -METO100T44 PO; -MOME200A INH; -NVLG SQ; -PERP1TAB10 PO; -PERP4TAB37 PO; -PRED10TA PO; -PRED20TA2 PO; -PROPOFOL IV EMULSION 10 MG/ML 20 ML VIAL IV ONE; -SODIUM CHLORIDE 0.9% 500ML 500 ML IV ONE; -TPM/50 PO; -TRL2 PO; -VENL75CA PO; -ZNF/4 PO; -[UNRECOGNIZED DRUG - CODE] PO
--- NOTE | 2016-12-07 11:42 | EMERGENCY ROOM VISIT NOTE ---
History Report prepared by Domenico: Mathew Gunn Under the Supervision of: Dr. Itz Navarro M.D. First contact with patient: 11:34 Chief Complaint: SHORTNESS OF BREATH Stated Complaint: SOB, PAIN IN ARMS History of Present Illness The patient is a 51 year old female who presents to the Emergency Room with complaints of persistent shortness of breath that started yesterday. She says that she fell yesterday on her left side, and ever since, she has been having left neck and left shoulder pain. The patient also notes that she started having chest pain yesterday. She adds that she has left arm pain, and her neck pain is worsened by moving her left arm. The patient says that she has been taking Westbrook for the pain. She states that she used her breathing treatments all day yesterday. The patient has a chronically elevated troponin. Source of History: patient Onset: Yesterday Position: other (global - shortness of breath) Timing: other (persistent) Associated Symptoms: + neck pain (left), + chest pain Note: Associated symptoms: Left shoulder and arm pain. Review of Systems See HPI for pertinent positives & negatives. A total of 10 systems reviewed and were otherwise negative. Past Medical & Surgical Medical Problems: (1) Acute bronchitis (2) Afib (3) Alcohol abuse (4) Atrial fibrillation (5) Benzodiazepine abuse (6) Cellulitis of leg, right (7) Chronic generalized pain disorder (8) Cocaine abuse (9) copd exac, pna (10) copd exac, pna (11) COPD with acute exacerbation (12) COPD with exacerbation (13) Depression (14) Diabetes (15) Diabetes (16) Edema (17) Fatty liver (18) HTN (hypertension) (19) Influenza B (20) Major depression (21) Neuropathy (22) NSTEMI, initial episode of care (23) Obesity (24) Opiate addiction (25) Ovarian cyst (26) Palpitations (27) past psych meds (28) Past Psych Meds (29) Personality disorder (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 (31) Sleep apnea (32) Suicide attempt Surgical Problems: (1) H/O foot surgery (2) H/O ovarian cystectomy Social History Problems: (1) ETOH abuse Family History Heart disease Social History Smoking Status: Current Every Day Smoker Alcohol Use: occasionally Drug Use: cocaine Marital Status: single Housing Status: lives with family Occupation Status: disabled Current/Historical Medications Scheduled Apixaban (Eliquis), 5 MG PO BID Azithromycin (Zithromax), 250 MG PO DAILY Budesonide/Formoterol Fumarate (Symbicort 160/4.5 Inhaler), 2 PUFFS INH BID Diltiazem Hcl Coated Beads (Diltiazem Hcl Er), 300 MG PO QAM Furosemide (Furosemide), 40 MG PO QAM Insulin Glargine (Lantus), 48 UNITS SC QPM Insulin Lispro (Human) (Humalog), 8 UNITS SQ TIDM Losartan Potassium (Losartan Potassium), 50 MG PO QAM Metoprolol Succinate (Metoprolol Succinate ER), 100 MG PO BID Omeprazole (Prilosec), 20 MG PO QAM Prednisone (Prednisone Tab), 0 PO DAILY Ranitidine HCl (Ranitidine HCl), 150 MG PO BID Valacyclovir HCl (Valacyclovir HCl), 500 MG PO QAM Scheduled PRN Albuterol Hfa (Ventolin Hfa), 2 PUFFS INH Q6H PRN for SOB/Wheezing Albuterol Sulf (Proventil 0.083% 2.5MG/3ML), 2.5 MG INH Q4-6HRS PRN for Wheezing Hydrocodone/Acetaminophen (Westbrook 10/325 Tab), 1 TAB PO TID PRN for Pain Lactulose (Chronulac), 30 ML PO DAILY PRN for Constipation Loratadine (Claritin), 10 MG PO DAILY PRN for PRN Lorazepam (Ativan), 0.5 MG PO BID PRN for Anxiety/Agitation Trazodone Hcl (Trazodone), 150 MG PO HS PRN for Sleep Allergies Coded Allergies: Haloperidol (Verified Allergy, Severe, TONGUE SWELLING, 12/07/16) Margarine (Verified Allergy, Severe, RASH, 12/07/16) Pt reported an allergy to butter & margarine (causes swelling), though stated she is not allergic to milk. Citalopram (Unverified Allergy, Unknown, ITCHING, 12/07/16) Penicillins (Verified Allergy, Unknown, UNKNOWN, 12/07/16) PER CHRISSY IN U Sulfamethoxazole w/Trimethoprim (Verified Allergy, Unknown, RASH, 12/07/16) Morphine (Verified Adverse Reaction, Mild, HEADACHE, 12/07/16) Oxycodone (Verified Adverse Reaction, Unknown, ITCH, 12/07/16) Physical Exam Vital Signs Date Time Temp Pulse Resp B/P (MAP) Pulse Ox O2 Delivery O2 Flow Rate FiO2 12/07/16 14:24 36.8 78 19 130/84 97 12/07/16 14:17 78 130/84 97 12/07/16 13:59 73 98 12/07/16 13:54 77 98 12/07/16 13:49 73 98 12/07/16 13:44 72 98 12/07/16 13:39 82 98 12/07/16 13:34 79 98 12/07/16 13:29 76 100 12/07/16 13:24 72 100 12/07/16 13:19 70 100 12/07/16 13:18 195/134 12/07/16 12:44 79 19 12/07/16 12:39 76 23 12/07/16 12:34 74 24 12/07/16 12:29 73 27 12/07/16 12:24 76 28 12/07/16 12:19 74 20 95 12/07/16 12:17 Room Air 12/07/16 12:17 Room Air 12/07/16 12:15 71 12/07/16 12:14 73 25 96 12/07/16 11:16 36.8 80 22 165/88 95 Nasal Cannula 2.0 Physical Exam GENERAL: Patient is a healthy-appearing well-nourished HEAD: Normocephalic atraumatic EYES: Ocular movements intact pupils equal and react to light OROPHARYNX mucous membranes are moist no exudates present no erythema or edema present NECK: Supple no nuchal rigidity CHEST: Good equal expansion. Pain in chest with palpation. LUNGS: Bilateral wheezing in all lung landry. CARDIAC: Normal S1 and S2 ABDOMEN: Soft nontender no guarding BACK: No CVA tenderness EXTREMITIES: Pain with movement of left arm. NEURO: Patient is following commands is answering questions appropriately. Alert and oriented x3 Cranial Nerves 2-12 grossly intact Medical Decision & Procedures ER Provider Diagnostic Interpretation: X-ray results as stated below per interpretation by me and the radiologist: CHEST ONE VIEW PORTABLE CLINICAL HISTORY: Fall. Shortness of breath. Wheezing. Left shoulder pain. COMPARISON STUDY: Chest radiograph October 28, 2016. FINDINGS: This exam is compromised by suboptimal penetration related to body habitus and portable technique. There is no pneumothorax or pleural effusion. Cardiomediastinal silhouette is stable. Apparent hazy bibasilar opacities are probably artifactual. There is no lobar consolidation. Cortical irregularity of the left humeral head is probably chronic. Possible subluxation of the left humeral head is noted. IMPRESSION: 1. Hazy bibasilar opacities which favor artifact. Airspace disease could appear similar. 2. No evidence of pulmonary edema. 3. No pneumothorax. 4. Cortical irregularity the left humeral head which is probably chronic. Possible left humeral head subluxation which could be technical and could be assessed with left shoulder radiographs. Electronically signed by: Fabrizio Johnson M.D. 12/07/2016 12:47 PM Dictated Date/Time: 12/07/2016 12:44 PM LEFT SHOULDER MIN 2 VIEWS ROUTINE CLINICAL HISTORY: Left shoulder pain following fall. COMPARISON: Left shoulder radiographs July 13, 2015. FINDINGS: Alignment of the left acromioclavicular and glenohumeral joints is anatomic. There is no acute fracture. A few ossicles along the greater tuberosity were shown on exam of July 13, 2015. The largest of these measures 3 cm. There is marked glenohumeral joint space narrowing with extensive osteophytosis. IMPRESSION: 1. No acute fracture or dislocation of the left shoulder. 2. Several ossific/calcific densities along the greater tuberosity which are unchanged since exam of July 13, 2015. This suggest remote trauma or less likely calcific tendinitis. 3. Severe osteoarthritis of the left glenohumeral joint. Electronically signed by: Fabrizio Johnson M.D. 12/07/2016 1:26 PM Dictated Date/Time: 12/07/2016 1:24 PM Laboratory Results 12/07/16 12:26 Red Blood Count 3.88, Mean Corpuscular Volume 94.1, Mean Corpuscular Hemoglobin 31.4, Mean Corpuscular Hemoglobin Concent 33.4, Mean Platelet Volume 9.7, Neutrophils (%) (Auto) 59.7, Lymphocytes (%) (Auto) 32.0, Monocytes (%) (Auto) 5.1, Eosinophils (%) (Auto) 2.4, Basophils (%) (Auto) 0.4, Neutrophils # (Auto) 3.29, Lymphocytes # (Auto) 1.76, Monocytes # (Auto) 0.28, Eosinophils # (Auto) 0.13, Basophils # (Auto) 0.02 12/07/16 12:26 Test 12/07/16 12:26 12/07/16 12:54 White Blood Count 5.50 K/uL (4.8-10.8) Red Blood Count 3.88 M/uL (4.2-5.4) Hemoglobin 12.2 g/dL (12.0-16.0) Hematocrit 36.5 % (37-47) Mean Corpuscular Volume 94.1 fL (80-100) Mean Corpuscular Hemoglobin 31.4 pg (25-34) Mean Corpuscular Hemoglobin Concent 33.4 g/dl (32-36) Platelet Count 215 K/uL (130-400) Mean Platelet Volume 9.7 fL (7.4-10.4) Neutrophils (%) (Auto) 59.7 % Lymphocytes (%) (Auto) 32.0 % Monocytes (%) (Auto) 5.1 % Eosinophils (%) (Auto) 2.4 % Basophils (%) (Auto) 0.4 % Neutrophils # (Auto) 3.29 K/uL (1.4-6.5) Lymphocytes # (Auto) 1.76 K/uL (1.2-3.4) Monocytes # (Auto) 0.28 K/uL (0.11-0.59) Eosinophils # (Auto) 0.13 K/uL (0-0.5) Basophils # (Auto) 0.02 K/uL (0-0.2) RDW Standard Deviation 49.6 fL (36.4-46.3) RDW Coefficient of Variation 14.5 % (11.5-14.5) Immature Granulocyte % (Auto) 0.4 % Immature Granulocyte # (Auto) 0.02 K/uL (0.00-0.02) Anion Gap 9.0 mmol/L (3-11) Est Creatinine Clear Calc Drug Dose 125.2 ml/min Estimated GFR () 106.2 Estimated GFR (Non- 91.6 BUN/Creatinine Ratio 9.2 (10-20) Calcium Level 8.6 mg/dl (8.5-10.1) Total Bilirubin 0.3 mg/dl (0.2-1) Aspartate Amino Transf (AST/SGOT) 115 U/L (15-37) Alanine Aminotransferase (ALT/SGPT) 166 U/L (12-78) Alkaline Phosphatase 179 U/L (45-117) Total Protein 7.0 gm/dl (6.4-8.2) Albumin 3.1 gm/dl (3.4-5.0) Globulin 3.9 gm/dl (2.5-4.0) Albumin/Globulin Ratio 0.8 (0.9-2) Urine Color DK YELLOW Urine Appearance CLEAR (CLEAR) Urine pH 6.5 (4.5-7.5) Urine Specific [place] 1.029 (1.000-1.030) Urine Protein 2+ (NEG) Urine Glucose (UA) 2+ (NEG) Urine Ketones TRACE (NEG) Urine Occult Blood NEG (NEG) Urine Nitrite NEG (NEG) Urine Bilirubin NEG (NEG) Urine Urobilinogen NEG (NEG) Urine Leukocyte Esterase NEG (NEG) Urine WBC (Auto) 1-5 /hpf (0-5) Urine RBC (Auto) 0-4 /hpf (0-4) Urine Hyaline Casts (Auto) 1-5 /lpf (0-5) Urine Epithelial Cells (Auto) >30 /lpf (0-5) Urine Bacteria (Auto) NEG (NEG) Labs reviewed by ED physician. Medications Administered Medications (Trade) Dose Ordered Sig/Lucien Route Start Time Stop Time Status Last Admin Dose Admin Ketorolac Tromethamine (Toradol Inj) 30 mg NOW STAT IV 12/07/16 12:08 12/07/16 12:12 DC 12/07/16 13:10 30 MG Sodium Chloride 1,000 ml @ 999 mls/hr Q1H1M STAT IV 12/07/16 12:08 12/07/16 13:08 DC 12/07/16 12:48 999 MLS/HR Albuterol (Ventolin Hfa Inhaler) 2 puffs NOW ONCE INH 12/07/16 12:15 12/07/16 12:16 DC 12/07/16 12:48 2 PUFFS Albuterol/ Ipratropium (Duoneb) 12 ml ONE ONCE INH 12/07/16 12:15 12/07/16 12:16 DC 12/07/16 12:49 12 ML Methylprednisolone Sodium Succinate 60 mg/Syringe 0.96 ml @ 1.5 mls/min NOW STAT IV 12/07/16 12:08 12/07/16 12:50 DC 12/07/16 13:10 1.5 MLS/MIN ECG Indication: SOB/dyspnea Rate (beats per minute): 64 Rhythm: normal sinus Findings: no acute ischemic change, no ectopy ED Course 1204: Past medical records reviewed. The patient was evaluated in room C9. A complete history and physical examination was performed. 1208: Ordered Solu-Medrol IV 60 mg IV, NSS 1000 ml @ 999 mls/hr IV, Toradol Inj 30 mg IV. 1215: Ordered Duoneb 12 ml INH, Ventolin Hfa Inhaler 2 puffs INH. 1355: Upon reexamination the patient is resting comfortably. I discussed results and treatment plan with the patient. She verbalizes agreement and understanding. The patient is ready for discharge. 1407: Ordered Zithromax Tab 500 mg PO. Medical Decision Prior records/ancillary studies reviewed. Triage Nursing notes reviewed. Differential diagnosis: Etiologies such as infections, reactive airway disease, pneumonia, pneumothorax , COPD, CHF, cardiac ischemia, pulmonary embolism, musculoskeletal, gastrointestinal, as well as others were entertained. Medication Reconciliation: I attest that I have personally reviewed the patient' s current medication list Blood Pressure Screening: Patient was found to have an elevated blood pressure and was referred to their primary care doctor for recheck and further treatment This is a 52-year-old female who presents emergency department complaining of chest tightness. The patient is wheezing throughout her lung landry. For this reason the patient was given Toradol along with breathing treatment in the emergency department. I also started the patient on Solu-Medrol. Her sugar is only slightly elevated however the patient is hypertensive. I do believe that this patient is well enough to be discharged home for follow-up with her primary care physician. I will trial her on prednisone however I cautioned her on high blood sugars while on the prednisone. Patient was in agreement with the treatment plan. Impression Primary Impression: Hypertension Additional Impression: Acute bronchitis Scribe Attestation The scribe's documentation has been prepared under my direction and personally reviewed by me in its entirety. I confirm that the note above accurately reflects all work, treatment, procedures, and medical decision making performed by me. Departure Information Dispostion Home / Self-Care Prescriptions Azithromycin (ZITHROMAX) 250 Mg Tab 250 MG PO DAILY, #4 TAB Prov: Itz Navarro MD 12/07/16 Prednisone (Prednisone Tab) 20 Mg Tab 0 PO DAILY, #7 TAB 2 TABS DAILY FOR 2 DAYS, THEN 1 TAB DAILY FOR 2 DAYS, THEN 1/2 TAB DAILY FOR 2 DAYS. Prov: Itz Navarro MD 12/07/16 Referrals No Doctor, Assigned (PCP) Forms HOME CARE DOCUMENTATION FORM, IMPORTANT VISIT INFORMATION, School Instructions, Work Instructions Patient Instructions ED Bronchitis Asthmatic, Hypertension Control, Hypertension Dc, My [facility] Additional Instructions Use inhaler twice every 6 hours Be aware of high blood sugar while on Prednisone You were found to have an elevated blood pressure today (>120 sytolic or >90 diastolic). Per medicare guidelines, you need to follow up with this blood pressure screening with your Primary Care Physician (PCP). For a new PCP call [phone]. Take 600 mg Ibuprofen every 6 hours You have been examined and treated today on an emergency basis only. This is not a substitute for, or an effort to provide, complete comprehensive medical care. It is impossible to recognize and treat all injuries or illnesses in a single emergency department visit. It is therefore important that you follow up closely with Dr Zuluaga. Call as soon as possible for an appointment. Thank you for your time and consideration. I look forward to speaking with you again soon. Please don't hesitate to call us if you have any questions. Problem Qualifiers Primary Impression: Hypertension Hypertension type: unspecified secondary hypertension Qualified Codes: I15.9 - Secondary hypertension, unspecified Additional Impression: Acute bronchitis Bronchitis organism: unspecified organism Qualified Codes: J20.9 - Acute bronchitis, unspecified
[2016-12-07] MEDS ORDERED: KETOROLAC TROMETHAMINE 30 MG/ML VIAL IV STA (12:08)
[2016-12-07] MEDS ORDERED: METHYLPREDNISOLONE 60 MG in SYRINGE 0 ML IV STA (12:08)
[2016-12-07] MEDS ORDERED: SODIUM CHLORIDE 0.9% 1000ML 1,000 ML IV STA (12:08)
[2016-12-07] MEDS ORDERED: METHYLPREDNISOLONE 125 MG VIAL IV STA (12:08)
[2016-12-07] MEDS ORDERED: ALBUT/IPRATROP 3MG/0.5MG NEB 3 ML VIAL INH ONE (12:15)
[2016-12-07] MEDS ORDERED: ALBUTEROL HFA 8 GM INHALER INH ONE (12:15)
[2016-12-07 12:16] VITALS: Ht 167.6 cm; Wt 137.0 kg
[2016-12-07 12:40] LABS: BASO % 0.4 %; BASO ABS # 0.02 K/uL (0-0.2); COMPLETE YES; EOS % 2.4 %; HEMATOCRIT 36.5 % (37-47); IG% 0.4 %; LYMPH ABS # 1.76 K/uL (1.2-3.4); MEAN CELL VOLUME 94.1 fL (80-100); MEAN CORPUSCULAR HEMOGLOBIN 31.4 pg (25-34); MEAN CORPUSCULAR HGB CONC 33.4 g/dl (32-36); MEAN PLATELET VOLUME 9.7 fL (7.4-10.4); MONO % 5.1 %; NEUT % 59.7 %; PLATELET COUNT 215 K/uL (130-400); RED BLOOD COUNT 3.88 M/uL (4.2-5.4)
--- NOTE | 2016-12-07 12:49 | DIAGNOSTIC IMAGING REPORT ---
CHEST ONE VIEW PORTABLE CLINICAL HISTORY: Fall. Shortness of breath. Wheezing. Left shoulder pain. COMPARISON STUDY: Chest radiograph October 28, 2016. FINDINGS: This exam is compromised by suboptimal penetration related to body habitus and portable technique. There is no pneumothorax or pleural effusion. Cardiomediastinal silhouette is stable. Apparent hazy bibasilar opacities are probably artifactual. There is no lobar consolidation. Cortical irregularity of the left humeral head is probably chronic. Possible subluxation of the left humeral head is noted. IMPRESSION: 1. Hazy bibasilar opacities which favor artifact. Airspace disease could appear similar. 2. No evidence of pulmonary edema. 3. No pneumothorax. 4. Cortical irregularity the left humeral head which is probably chronic. Possible left humeral head subluxation which could be technical and could be assessed with left shoulder radiographs. Electronically signed by: Fabrizio Johnson M.D. 12/07/2016 12:47 PM Dictated Date/Time: 12/07/2016 12:44 PM
[2016-12-07 13:00] LABS: BUN/CREATININE RATIO 9.2 (10-20); CALCIUM 8.6 mg/dl (8.5-10.1); CREATININE 0.75 mg/dl (0.60-1.20); POTASSIUM 3.8 mmol/L (3.5-5.1)
[2016-12-07 13:02] LABS: ALB/GLOB RATIO 0.8 (0.9-2)
[2016-12-07 13:22] LABS: URINE APPEARANCE CLEAR (CLEAR); URINE BILIRUBIN NEG (NEG); URINE COLOR DK YELLOW; URINE EPITHELIAL CELL AUTO >30 /lpf (0-5); URINE NITRITE NEG (NEG); URINE PH 6.5 (4.5-7.5); URINE SPECIFIC GRAVITY 1.029 (1.000-1.030); UROBILINOGEN NEG (NEG)
[2016-12-07 13:23] LABS: MANUAL MICROSCOPIC REQUIRED? NO; REVIEW REQ? NO
[2016-12-07] MEDS ORDERED: INSU100I SQ (13:27)
--- NOTE | 2016-12-07 13:28 | DIAGNOSTIC IMAGING REPORT ---
LEFT SHOULDER MIN 2 VIEWS ROUTINE CLINICAL HISTORY: Left shoulder pain following fall. COMPARISON: Left shoulder radiographs July 13, 2015. FINDINGS: Alignment of the left acromioclavicular and glenohumeral joints is anatomic. There is no acute fracture. A few ossicles along the greater tuberosity were shown on exam of July 13, 2015. The largest of these measures 3 cm. There is marked glenohumeral joint space narrowing with extensive osteophytosis. IMPRESSION: 1. No acute fracture or dislocation of the left shoulder. 2. Several ossific/calcific densities along the greater tuberosity which are unchanged since exam of July 13, 2015. This suggest remote trauma or less likely calcific tendinitis. 3. Severe osteoarthritis of the left glenohumeral joint. Electronically signed by: Fabrizio Johnson M.D. 12/07/2016 1:26 PM Dictated Date/Time: 12/07/2016 1:24 PM
[2016-12-07] MEDS ORDERED: AZITHROMYCIN 250 MG TAB PO STA (14:07)
[2016-12-07] MEDS ORDERED: AZIT-60 PO (14:09)
[2016-12-07] MEDS ORDERED: PRED20TA2 PO (14:09)
[2016-12-07 14:24] VITALS: BP 130/84; PULSE 78; TEMP 36.8; O2SAT 97
[2016-12-10] MEDS ORDERED: TRL2 PO (10:16)
[2016-12-10] MEDS ORDERED: HYDR-4383 PO (10:16)
[2016-12-10] MEDS ORDERED: PRED10TA PO (10:16)
[2016-12-10] MEDS ORDERED: IPRASOL4 INH (10:16)
[2016-12-10] MEDS ORDERED: INSDGI SC (10:16)
[2017-04-06] MEDS ORDERED: METO100T44 PO (00:46)
== END 2016-12-07 14:24 | disposition home or self-care (01) ==
LOC: C.EDB 11:15 → C.EDC 14:24
DX: I15.9 Secondary hypertension, unspecified (principal); J20.9 Acute bronchitis, unspecified; I48.91 Unspecified atrial fibrillation; F10.10 Alcohol abuse, uncomplicated; F14.10 Cocaine abuse, uncomplicated; E11.9 Type 2 diabetes mellitus without complications; I10 Essential (primary) hypertension; I21.4 Non-ST elevation (NSTEMI) myocardial infarction; F33.41 Major depressive disorder, recurrent, in partial remission; E66.9 Obesity, unspecified; F19.20 Other psychoactive substance dependence, uncomplicated; N83.209 Unspecified ovarian cyst, unspecified side; F17.200 Nicotine dependence, unspecified, uncomplicated; Z82.49 Family history of ischemic heart disease and other diseases of the circulatory system; Z79.4 Long term (current) use of insulin

== ENCOUNTER 2016-12-07 19:20 | Observation (INO) | payer OTHER ==
[~2016-12-07] VITALS: Ht 167.6 cm; Wt 139.3 kg
[~2016-12-07 19:20] MED LIST changes: +AZIT-60 PO; +INSU100I SQ; +PRED20TA2 PO
--- NOTE | 2016-12-07 20:05 | DIAGNOSTIC IMAGING REPORT ---
CHEST ONE VIEW PORTABLE CLINICAL HISTORY: Mood Disorder COMPARISON STUDY: Chest radiograph October 28, 2016 and December 07, 2016 at 12:19 PM. FINDINGS: There is no pneumothorax or pleural effusion. Cardiomediastinal silhouette is stable. There is no evidence of pulmonary edema. Study is compromised due to portable technique and body habitus. No consolidation is identified. Arthritis of the left glenohumeral joint is noted with chronic deformity of the greater tuberosity. IMPRESSION: No acute cardiopulmonary findings. Electronically signed by: Fabrizio Johnson M.D. 12/07/2016 8:04 PM Dictated Date/Time: 12/07/2016 8:01 PM
[2016-12-07 20:41] LABS: URINE APPEARANCE CLEAR (CLEAR); URINE BILIRUBIN NEG (NEG); URINE COLOR YELLOW; URINE NITRITE NEG (NEG); URINE SPECIFIC GRAVITY 1.031 (1.000-1.030); UROBILINOGEN NEG (NEG)
[2016-12-07 20:49] LABS: BASO % 0.2 %; BASO ABS # 0.01 K/uL (0-0.2); COMPLETE YES; HEMATOCRIT 37.6 % (37-47); IG% 0.5 %; LYMPH % 11.8 %; LYMPH ABS # 0.68 K/uL (1.2-3.4); MEAN CELL VOLUME 94.2 fL (80-100); MEAN CORPUSCULAR HEMOGLOBIN 31.1 pg (25-34); NEUT % 86.5 %; PLATELET COUNT 230 K/uL (130-400); RED BLOOD COUNT 3.99 M/uL (4.2-5.4); WHITE BLOOD COUNT 5.74 K/uL (4.8-10.8)
[2016-12-07 20:52] LABS: MANUAL MICROSCOPIC REQUIRED? NO; REVIEW REQ? NO
[2016-12-07 21:00] LABS: INR 1.1 (0.9-1.1); PROTHROMBIN TIME (PATIENT) 11.5 SECONDS (9.0-12.0)
[2016-12-07 21:16] LABS: ACETAMINOPHEN < 2 ug/ml (10-30)
[2016-12-07 21:18] LABS: BENZODIAZEPINE, URINE NEG (NEG); COCAINE,URINE POS (NEG); PHENCYCLIDINE, URINE NEG (NEG)
[2016-12-07 21:19] LABS: ALT/SGPT 155 U/L (12-78); AST/SGOT 65 U/L (15-37); BLOOD UREA NITROGEN 8 mg/dl (7-18); BUN/CREATININE RATIO 8.2 (10-20); CALCIUM 8.3 mg/dl (8.5-10.1); CARBON DIOXIDE 20 mmol/L (21-32); CHLORIDE 104 mmol/L (98-107); GLUCOSE 357 mg/dl (70-99); POTASSIUM 3.9 mmol/L (3.5-5.1); SODIUM 139 mmol/L (136-145)
[2016-12-07 22:16] LABS: ALKALINE PHOSPHATASE 182 U/L (45-117)
[2016-12-07] MEDS ORDERED: NovoLIN-R INSULIN PER UNIT CHARGE IV STA (22:20)
[2016-12-07 22:21] LABS: BETA-HYDROXYBUTYRATE 2.98 mg/dL (0.2-2.81)
[2016-12-07] MEDS ORDERED: INSULIN IV INFUSION PROTOCOL STA (22:33)
[2016-12-07] MEDS ORDERED: SODIUM CHLORIDE 0.9% 1000ML 1,000 ML IV STA ×2 (22:33)
[2016-12-07] MEDS ORDERED: MODERATE STRESS LEVEL ONE (22:45)
[2016-12-07] MEDS ORDERED: DKA GOAL RANGE 150-250 mg/dl 1 EA ONE (22:45)
[2016-12-07] MEDS ORDERED: INSULIN REGULAR 250 UNITS in SODIUM CHLORIDE 0.9% 250ML 250 ML IV SCH (23:00)
[2016-12-07] MEDS ORDERED: INSULIN HUMAN REGULAR IV BOLUS 3.5 UNIT in SYRINGE 0 ML IV SCH (23:00)
[2016-12-07] MEDS ORDERED: ASPIRIN 81 MG CHEW PO STA (23:03)
--- NOTE | 2016-12-07 23:49 | EMERGENCY ROOM VISIT NOTE ---
History Report prepared by Domenico: Vivian Stewart Under the Supervision of: Dr. Yovani Arana M.D. First contact with patient: 19:36 Chief Complaint: MENTAL HEALTH EVALUATION Stated Complaint: MENTAL HEALTH ASSESSMENT History of Present Illness The patient is a 51 year old female who presents to the Emergency Room with complaints of feelings of depression. The patient states that she was in the Emergency Room earlier today and received bad medical news, and has felt depressed since. She states that she is not suicidal or homicidal. She reports that she fell yesterday and hurt her arm and neck. She has also had chest pain, vomiting and diarrhea. Additionally, she has been dizzy and has had shortness of breath. She admits to doing a line of cocaine and consuming alcohol yesterday. Pt denies melena, hematochezia, urinary symptoms, numbness, weakness , lymphadenopathy, rash, or other complaints. Source of History: patient Onset: earlier today Position: other (global) Quality: other (feelings of depression) Associated Symptoms: + chest pain, + SOB, + vomiting, + diarrhea Review of Systems See HPI for pertinent positives and negatives. A total of ten systems were reviewed and were otherwise negative. Past Medical & Surgical Medical Problems: (1) Acute bronchitis (2) Afib (3) Alcohol abuse (4) Atrial fibrillation (5) Benzodiazepine abuse (6) Cellulitis of leg, right (7) Chronic generalized pain disorder (8) Cocaine abuse (9) copd exac, pna (10) copd exac, pna (11) COPD with acute exacerbation (12) COPD with exacerbation (13) Depression (14) Diabetes (15) Diabetes (16) Edema (17) Fatty liver (18) HTN (hypertension) (19) Influenza B (20) Major depression (21) Neuropathy (22) NSTEMI, initial episode of care (23) Obesity (24) Opiate addiction (25) Ovarian cyst (26) Palpitations (27) past psych meds (28) Past Psych Meds (29) Personality disorder (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 (31) Sleep apnea (32) Suicide attempt Surgical Problems: (1) H/O foot surgery (2) H/O ovarian cystectomy Social History Problems: (1) ETOH abuse Family History Heart disease Social History Smoking Status: Current Every Day Smoker Alcohol Use: occasionally Drug Use: cocaine Marital Status: single Housing Status: lives with family Occupation Status: disabled Current/Historical Medications Scheduled Apixaban (Eliquis), 5 MG PO BID Azithromycin (Zithromax), 250 MG PO DAILY Budesonide/Formoterol Fumarate (Symbicort 160/4.5 Inhaler), 2 PUFFS INH BID Diltiazem Hcl Coated Beads (Diltiazem Hcl Er), 300 MG PO QAM Furosemide (Furosemide), 40 MG PO QAM Insulin Glargine (Lantus), 48 UNITS SC QPM Insulin Lispro (Human) (Humalog), 8 UNITS SQ TIDM Losartan Potassium (Losartan Potassium), 50 MG PO QAM Metoprolol Succinate (Metoprolol Succinate ER), 100 MG PO BID Omeprazole (Prilosec), 20 MG PO QAM Prednisone (Prednisone Tab), 0 PO DAILY Ranitidine HCl (Ranitidine HCl), 150 MG PO BID Valacyclovir HCl (Valacyclovir HCl), 500 MG PO QAM Scheduled PRN Albuterol Hfa (Ventolin Hfa), 2 PUFFS INH Q6H PRN for SOB/Wheezing Albuterol Sulf (Proventil 0.083% 2.5MG/3ML), 2.5 MG INH Q4-6HRS PRN for Wheezing Hydrocodone/Acetaminophen ([place] 10/325 Tab), 1 TAB PO TID PRN for Pain Lactulose (Chronulac), 30 ML PO DAILY PRN for Constipation Loratadine (Claritin), 10 MG PO DAILY PRN for PRN Lorazepam (Ativan), 0.5 MG PO BID PRN for Anxiety/Agitation Trazodone Hcl (Trazodone), 150 MG PO HS PRN for Sleep Allergies Coded Allergies: Haloperidol (Verified Allergy, Severe, TONGUE SWELLING, 12/07/16) Margarine (Verified Allergy, Severe, RASH, 12/07/16) Pt reported an allergy to butter & margarine (causes swelling), though stated she is not allergic to milk. Citalopram (Unverified Allergy, Unknown, ITCHING, 12/07/16) Penicillins (Verified Allergy, Unknown, UNKNOWN, 12/07/16) PER CHRISSY IN U Sulfamethoxazole w/Trimethoprim (Verified Allergy, Unknown, RASH, 12/07/16) Morphine (Verified Adverse Reaction, Mild, HEADACHE, 12/07/16) Oxycodone (Verified Adverse Reaction, Unknown, ITCH, 12/07/16) Physical Exam Vital Signs Date Time Temp Pulse Resp B/P (MAP) Pulse Ox O2 Delivery O2 Flow Rate FiO2 12/07/16 22:26 80 24 173/75 94 Nasal Cannula 2.0 12/07/16 20:41 67 24 130/55 95 Nasal Cannula 2.0 12/07/16 19:26 36.8 76 24 143/75 94 Room Air Physical Exam GENERAL: Awake, alert, tired appearing, flat affect. HENT: Normocephalic, atraumatic. TM's normal. Oropharynx unremarkable. Upper airway noises. EYES: PERRL. EOMI. Normal conjunctiva. Sclera non-icteric. NECK: Supple. No nuchal rigidity. FROM. No JVD or bruit. RESPIRATORY: CTA CARDIAC: RRR. No murmur. ABDOMEN: Soft, non distended. Minimal upper abdominal discomfort. No rebound or guarding. No masses. MUSCULOSKELETAL: Unremarkable. Lower extremity edema. No discoloration. Gross motor strength symmetric. NEURO: Cranial nerves 2-12 grossly intact. Normal sensorium. No sensory or motor deficits noted. Speech normal. No pronator drift. SKIN: No rash or jaundice noted. LYMPH: No adenopathy. PSYCH: Depressed mood. Unwilling to admit to suicidal ideation. no homicidal ideation. Medical Decision & Procedures ER Provider Diagnostic Interpretation: X-ray: Per my interpretation, radiologist review. CHEST ONE VIEW PORTABLE CLINICAL HISTORY: Mood Disorder COMPARISON STUDY: Chest radiograph October 28, 2016 and December 07, 2016 at 12:19 PM. FINDINGS: There is no pneumothorax or pleural effusion. Cardiomediastinal silhouette is stable. There is no evidence of pulmonary edema. Study is compromised due to portable technique and body habitus. No consolidation is identified. Arthritis of the left glenohumeral joint is noted with chronic deformity of the greater tuberosity. IMPRESSION: No acute cardiopulmonary findings. Electronically signed by: Fabrizio Johnson M.D. 12/07/2016 8:04 PM Dictated Date/Time: 12/07/2016 8:01 PM Laboratory Results 12/07/16 20:38 Red Blood Count 3.99, Mean Corpuscular Volume 94.2, Mean Corpuscular Hemoglobin 31.1, Mean Corpuscular Hemoglobin Concent 33.0, Mean Platelet Volume 10.0, Neutrophils (%) (Auto) 86.5, Lymphocytes (%) (Auto) 11.8, Monocytes (%) (Auto) 1.0, Eosinophils (%) (Auto) 0.0, Basophils (%) (Auto) 0.2, Neutrophils # (Auto) 4.96, Lymphocytes # (Auto) 0.68, Monocytes # (Auto) 0.06, Eosinophils # (Auto) 0.00, Basophils # (Auto) 0.01 12/07/16 20:38 Test 12/07/16 20:16 12/07/16 20:19 12/07/16 20:38 Bedside Glucose 390 mg/dl (70-90) Urine Color YELLOW Urine Appearance CLEAR (CLEAR) Urine pH 6.0 (4.5-7.5) Urine Specific [place] 1.031 (1.000-1.030) Urine Protein NEG (NEG) Urine Glucose (UA) 3+ (NEG) Urine Ketones TRACE (NEG) Urine Occult Blood NEG (NEG) Urine Nitrite NEG (NEG) Urine Bilirubin NEG (NEG) Urine Urobilinogen NEG (NEG) Urine Leukocyte Esterase NEG (NEG) Urine Test NEG (NEG) Urine Opiates Screen NEG (NEG) Urine Methadone, Qualitative NEG (NEG) Urine Barbiturates NEG (NEG) Urine Phencyclidine (PCP) Level NEG (NEG) Ur Amphetamine/Methamphetamine NEG (NEG) MDMA (Ecstasy) Screen NEG (NEG) Urine Benzodiazepines Screen NEG (NEG) Urine Cocaine Metabolite POS (NEG) Urine Marijuana (THC) NEG (NEG) White Blood Count 5.74 K/uL (4.8-10.8) Red Blood Count 3.99 M/uL (4.2-5.4) Hemoglobin 12.4 g/dL (12.0-16.0) Hematocrit 37.6 % (37-47) Mean Corpuscular Volume 94.2 fL (80-100) Mean Corpuscular Hemoglobin 31.1 pg (25-34) Mean Corpuscular Hemoglobin Concent 33.0 g/dl (32-36) Platelet Count 230 K/uL (130-400) Mean Platelet Volume 10.0 fL (7.4-10.4) Neutrophils (%) (Auto) 86.5 % Lymphocytes (%) (Auto) 11.8 % Monocytes (%) (Auto) 1.0 % Eosinophils (%) (Auto) 0.0 % Basophils (%) (Auto) 0.2 % Neutrophils # (Auto) 4.96 K/uL (1.4-6.5) Lymphocytes # (Auto) 0.68 K/uL (1.2-3.4) Monocytes # (Auto) 0.06 K/uL (0.11-0.59) Eosinophils # (Auto) 0.00 K/uL (0-0.5) Basophils # (Auto) 0.01 K/uL (0-0.2) RDW Standard Deviation 49.7 fL (36.4-46.3) RDW Coefficient of Variation 14.6 % (11.5-14.5) Immature Granulocyte % (Auto) 0.5 % Immature Granulocyte # (Auto) 0.03 K/uL (0.00-0.02) Prothrombin Time 11.5 SECONDS (9.0-12.0) Prothromb Time International Ratio 1.1 (0.9-1.1) Activated Partial Thromboplast Time 26.7 SECONDS (21.0-31.0) Partial Thromboplastin Ratio 1.0 Anion Gap 15.0 mmol/L (3-11) Est Creatinine Clear Calc Drug Dose 94.6 ml/min Estimated GFR () 75.0 Estimated GFR (Non- 64.7 BUN/Creatinine Ratio 8.2 (10-20) Calcium Level 8.3 mg/dl (8.5-10.1) Total Bilirubin 0.2 mg/dl (0.2-1) Direct Bilirubin < 0.1 mg/dl (0-0.2) Aspartate Amino Transf (AST/SGOT) 65 U/L (15-37) Alanine Aminotransferase (ALT/SGPT) 155 U/L (12-78) Alkaline Phosphatase 182 U/L (45-117) Troponin I 0.239 ng/ml (0-0.045) Total Protein 7.2 gm/dl (6.4-8.2) Albumin 3.1 gm/dl (3.4-5.0) Beta-Hydroxybutyric Acid 2.98 mg/dL (0.2-2.81) Thyroid Stimulating Hormone (TSH) 0.280 uIu/ml (0.300-4.500) Salicylates Level 2.1 mg/dl (2.8-20) Acetaminophen Level < 2 ug/ml (10-30) Ethyl Alcohol mg/dL 79.0 mg/dl (0-3) Laboratory results reviewed by me Medications Administered Medications (Trade) Dose Ordered Sig/Lucien Route Start Time Stop Time Status Last Admin Dose Admin Sodium Chloride 1,000 ml @ 999 mls/hr Q1H1M STAT IV 12/07/16 22:33 12/07/16 23:33 DC 12/07/16 22:56 999 MLS/HR Insulin Human Regular 3.5 unit/ Syringe 3.5 ml @ 1 mls/min TODAY@2300 IV 12/07/16 23:00 12/07/16 23:04 DC 12/07/16 23:33 1 MLS/MIN Insulin Human Regular 250 units/ Sodium Chloride 252.5 ml @ 0 mls/hr DAILY@1130 IV 12/07/16 23:00 12/08/28 11:29 12/07/16 23:34 3.5 MLS/HR Aspirin (Aspirin Chew) 324 mg NOW STAT PO 12/07/16 23:03 12/07/16 23:04 DC 12/07/16 23:38 324 MG ECG Indication: diaphoresis Rate (beats per minute): 78 Rhythm: sinus rhythm Findings: PVC, no acute ischemic change, other (LVH, septal Q waves ) ED Course 1956: The patient was evaluated in room A8. A complete history and physical exam was performed. 0: Ordered Insulin Human Regular 10 units IV. 2233: Ordered Sodium Chloride 1,000 ml @ 999 mls/hr IV, Sodium Chloride 1,000 ml @ 125 mls/hr IV, Insulin Human Regular 1 ea. 2245: Ordered Insulin Protocol Moderate Stress Level 1 ea, Insulin Protocol Dka Goal Range 1 ea. 2300: Ordered Insulin Human Regular 250 units/Sodium Chloride 3.5 ml @ 1 mls/ min IV. 2303: Ordered Aspiring 324 mg PO. 2330: Upon reexamination, the patient was resting comfortably. I discussed the test results and treatment plan with her. The patient will be evaluated for further management. Medical Decision Prior records/ancillary studies reviewed. Triage Nursing notes reviewed and agree them. The patient's history was concerning for possible psychiatric disturbance as well as the multiple other complaints listed above. Differential diagnosis: Etiologies such as mood disorder, infection, hypoglycemia, electrolyte abnormalities, cardiac sources, intracerebral event, toxicologic, neurologic, as well as others were entertained. Physical examination: The physical examination was performed as above. No emergent medical pathologies were noted. ER treatment provided: IV normal saline IV insulin drip On reassessment the patient felt better. Diagnostic interpretation by me: The electrocardiogram was negative for pathologic change. The labs revealed significant hyperglycemia, anion gap and low CO2 on Chemistry panel. patient's troponin was mildly elevated which this has been in the past. She is slightly higher than recent values. The patient's urine drug screen did reveal cocaine which she admitted to taking. Imaging studies: Chest x-ray as above. The patient has a lot of chronic medical issues as well as psychiatric issues. She was seen earlier today and her chemistries were rather unremarkable. The patient left. She admits to drinking alcohol and this was mildly elevated. She did cocaine yesterday. She has not been adhering to a diabetic diet. She has mild DKA and needs further management as I have concerns that she will not do well As an outpatient given this downturn in her condition. Consultation: A consultation was placed with internal medicine. The patient was evaluated by Dr. Godfrey for further treatment. Medication Reconciliation: I attest that I have personally reviewed the patient' s current medication list Patient was found to have a slightly elevated blood pressure due to circumstances. I do not believe that the patient requires hypertension monitoring. Consults Time Called: [id number] Consulting Physician: Dr. Godfrey- Internal Medicine Returned Call: [phone] Discussed the patient's case. The patient will be evaluated for further treatment and disposition. Impression Primary Impression: DKA (diabetic ketoacidoses) Additional Impressions: Mood disorder Chest pain Cocaine abuse Scribe Attestation The scribe's documentation has been prepared under my direction and personally reviewed by me in its entirety. I confirm that the note above accurately reflects all work, treatment, procedures, and medical decision making performed by me. Departure Information Dispostion Being Evaluated By Hospitalist Referrals Alonso Zuluaga M.D. (PCP) Patient Instructions My [facility] Problem Qualifiers
[2016-12-08] VITALS (11 sets, daily range): BP systolic 149–167; BP diastolic 61–96; PULSE 58–78; TEMP 36.5–37.1; O2SAT 95–98; BMI 49.6
[2016-12-08] MEDS ORDERED: ACETAMINOPHEN 325 MG TAB PO PRN (00:15)
[2016-12-08] MEDS ORDERED: ONDANSETRON INJ 2 MG/ML 2 ML VIAL IV PRN (00:15)
[2016-12-08] MEDS ORDERED: LORATADINE 10 MG TAB PO PRN (00:15)
[2016-12-08] MEDS ORDERED: ALBUTEROL 0.083% NEBU SOLN 3 ML VIAL INH PRN (00:15)
[2016-12-08] MEDS ORDERED: ALUMINUM/MAGNESIUM/SIMETH (MAALOX MAX) 30 ML UDC PO PRN (00:15)
[2016-12-08] MEDS ORDERED: POLYETHYLENE (MIRALAX) 17 GM PACK PO PRN (00:15)
[2016-12-08] MEDS ORDERED: NITROGLYCERIN 0.4 MG SL PER TAB CHARGE SL PRN (00:15)
[2016-12-08] MEDS ORDERED: INSULIN IV INFUSION PROTOCOL STA (00:19)
[2016-12-08] MEDS ORDERED: DKA GOAL RANGE 150-250 mg/dl 1 EA ONE (00:30)
[2016-12-08] MEDS ORDERED: POTASSIUM CHLORIDE 10 MEQ TABCR PO STA (00:45)
--- NOTE | 2016-12-08 01:07 | History and Physical ---
History & Physical Date & Time of Service: Dec 08, 2016 at 00:33 Chief Complaint: Mental Health Assessment Primary Care Physician: Alonso Zuluaga M.D. History of Present Illness Source: patient 51 y/o F w/Hx morbid obesity, ETOH abuse, Cocaine abuse, Benzodiazepine abuse, Opioid dpendence, IDDM, Depression, COPD, paroxysmal AF. Pt presents to the ER for the second time today with complaints of CP and SOB. The pt states that she ingested a "tiny bit of cocaine" the previous day and also had 4 alcoholic beverages following discharge from the ER earlier. She states her CP is central and intermittent. She is SOB and has been wheezing for a few days and is being treated for a COPD exacerbation at present. Her SOB does not seem related to her CP and she denies associated nausea, vomiting or diaphoresis. Labs were redrawn and are consistent with mild DKA. Her troponin is elevated, however, this is chronic and is not above baseline. She is in a sinus rhythm on arrival and there are no changes on her EKG. Past Medical/Surgical History Medical Problems: (1) Afib Status: Paroxysmal (2) Alcohol abuse Status: Chronic (3) Atrial fibrillation Status: Chronic (4) Benzodiazepine abuse Status: Chronic (5) Chronic generalized pain disorder Status: Chronic (6) Cocaine abuse Status: Chronic (7) Diabetes Status: Chronic (8) Diabetes Status: Chronic (9) Fatty liver Status: Chronic (10) HTN (hypertension) Status: Chronic (11) Major depression Status: Chronic (12) Neuropathy Status: Chronic (13) Obesity Status: Chronic (14) Opiate addiction Status: Chronic (15) Palpitations Status: Chronic (16) Personality disorder Status: Chronic (17) Sciatic nerve disease Status: Chronic (18) Sleep apnea Status: Chronic (19) Suicide attempt Status: Chronic Surgical Problems: (1) H/O foot surgery Status: Resolved (2) H/O ovarian cystectomy Status: Resolved Family History Heart disease CAD, DM, HTN, depression Social History Smokes 1/2 pack daily, dabbles in Cocaine, drinks several alcoholic beverages daily - previous benzodiazepine and opiate abuse noted in chart - denies current Smoking Status: Current Every Day Smoker Drug Use: cocaine Marital Status: single Housing status: lives alone Occupational Status: disabled Immunizations History of Influenza Vaccine: Yes Influenza Vaccine Date: Apr 23, 2012 History of Tetanus Vaccine?: Unknown History of Pneumococcal: Yes Pneumococcal Date: Mar 12, 2011 History of Hepatitis B Vaccine: had one shot of the series Multi-Drug Resistant Organisms History of MDRO: No Allergies Coded Allergies: Haloperidol (Verified Allergy, Severe, TONGUE SWELLING, 12/07/16) Margarine (Verified Allergy, Severe, RASH, 12/07/16) Pt reported an allergy to butter & margarine (causes swelling), though stated she is not allergic to milk. Citalopram (Unverified Allergy, Unknown, ITCHING, 12/07/16) Penicillins (Verified Allergy, Unknown, UNKNOWN, 12/07/16) PER [facility] Sulfamethoxazole w/Trimethoprim (Verified Allergy, Unknown, RASH, 12/07/16) Morphine (Verified Adverse Reaction, Mild, HEADACHE, 12/07/16) Oxycodone (Verified Adverse Reaction, Unknown, ITCH, 12/07/16) Home Medications Scheduled Apixaban (Eliquis), 5 MG PO BID Azithromycin (Zithromax), 250 MG PO DAILY Budesonide/Formoterol Fumarate (Symbicort 160/4.5 Inhaler), 2 PUFFS INH BID Diltiazem Hcl Coated Beads (Diltiazem Hcl Er), 300 MG PO QAM Furosemide (Furosemide), 40 MG PO QAM Insulin Glargine (Lantus), 48 UNITS SC QPM Insulin Lispro (Human) (Humalog), 8 UNITS SQ TIDM Losartan Potassium (Losartan Potassium), 50 MG PO QAM Metoprolol Succinate (Metoprolol Succinate ER), 100 MG PO BID Omeprazole (Prilosec), 20 MG PO QAM Prednisone (Prednisone Tab), 0 PO DAILY Ranitidine HCl (Ranitidine HCl), 150 MG PO BID Valacyclovir HCl (Valacyclovir HCl), 500 MG PO QAM Scheduled PRN Albuterol Hfa (Ventolin Hfa), 2 PUFFS INH Q6H PRN for SOB/Wheezing Albuterol Sulf (Proventil 0.083% 2.5MG/3ML), 2.5 MG INH Q4-6HRS PRN for Wheezing Hydrocodone/Acetaminophen ([place] 10/325 Tab), 1 TAB PO TID PRN for Pain Lactulose (Chronulac), 30 ML PO DAILY PRN for Constipation Loratadine (Claritin), 10 MG PO DAILY PRN for PRN Lorazepam (Ativan), 0.5 MG PO BID PRN for Anxiety/Agitation Trazodone Hcl (Trazodone), 150 MG PO HS PRN for Sleep Review of Systems Constitutional: No fever, No chills, No sweats Eyes: No worsening of vision, No eye pain ENT: No hearing loss, No unusual epistaxis, No nasal symptoms Respiratory: + wheezing, + shortness of breath, + dyspnea on exertion, + dyspnea at rest, No cough Cardiovascular: + chest pain, No orthopnea, No PND Abdomen: No pain, No nausea, No vomiting Musculoskeletal: + joint pain, + muscle pain Genitourinary - Female: No dysuria, No urinary frequency, No urinary urgency Neurologic: No memory loss, No paralysis, No weakness Psychiatric: + depression symptoms Endocrine: + fatigue Hematologic / Lymphatic: No abnormal bleeding/bruising Integumentary: No rash Allergic / Immunologic: No environmental allergies Physical Exam Vital Signs Date Time Temp Pulse Resp B/P (MAP) Pulse Ox O2 Delivery O2 Flow Rate FiO2 12/07/16 23:52 77 16 149/71 96 Room Air 12/07/16 22:26 80 24 173/75 94 Nasal Cannula 2.0 12/07/16 20:41 67 24 130/55 95 Nasal Cannula 2.0 12/07/16 19:26 36.8 76 24 143/75 94 Room Air General Appearance: + pertinent finding (Morbidly obese middle aged female - she is pleasant and cooperative and does not exhibit distress) Head: normocephalic, atraumatic Eyes: normal inspection, PERRL, EOMI ENT: normal ENT inspection, hearing grossly normal, TMs normal, pharynx normal Neck: supple, no JVD Respiratory/Chest: chest non-tender, no respiratory distress, no accessory muscle use, + decreased breath sounds, + wheezing Cardiovascular: + irregularly irregular, + pertinent finding (Faint heart sounds) Abdomen/GI: normal bowel sounds, non tender, soft Back: normal inspection, no CVA tenderness, no muscle spasm, normal range of motion Extremities/Musculoskelatal: normal inspection, no calf tenderness, normal capillary refill, no pedal edema, normal range of motion Neurologic/Psych: mat sewer II-XII nml as tested, no motor/sensory deficits, alert, normal mood/affect, normal reflexes, oriented x 3 Skin: normal color, warm/dry, no rash Diagnostics Laboratory Results Results Past 24 Hours Test 12/07/16 20:16 12/07/16 20:19 12/07/16 20:38 Range/Units Bedside Glucose 390 70-90 mg/dl Urine Color YELLOW Urine Appearance CLEAR CLEAR Urine pH 6.0 4.5-7.5 Urine Specific [place] 1.031 1.000-1.030 Urine Protein NEG NEG Urine Glucose (UA) 3+ NEG Urine Ketones TRACE NEG Urine Occult Blood NEG NEG Urine Nitrite NEG NEG Urine Bilirubin NEG NEG Urine Urobilinogen NEG NEG Urine Leukocyte Esterase NEG NEG Urine Test NEG NEG Urine Opiates Screen NEG NEG Urine Methadone, Qualitative NEG NEG Urine Barbiturates NEG NEG Urine Phencyclidine (PCP) Level NEG NEG Ur Amphetamine/Methamphetamine NEG NEG MDMA (Ecstasy) Screen NEG NEG Urine Benzodiazepines Screen NEG NEG Urine Cocaine Metabolite POS NEG Urine Marijuana (THC) NEG NEG White Blood Count 5.74 4.8-10.8 K/uL Red Blood Count 3.99 4.2-5.4 M/uL Hemoglobin 12.4 12.0-16.0 g/dL Hematocrit 37.6 37-47 % Mean Corpuscular Volume 94.2 80-100 fL Mean Corpuscular Hemoglobin 31.1 25-34 pg Mean Corpuscular Hemoglobin Concent 33.0 32-36 g/dl Platelet Count 230 130-400 K/uL Mean Platelet Volume 10.0 7.4-10.4 fL Neutrophils (%) (Auto) 86.5 % Lymphocytes (%) (Auto) 11.8 % Monocytes (%) (Auto) 1.0 % Eosinophils (%) (Auto) 0.0 % Basophils (%) (Auto) 0.2 % Neutrophils # (Auto) 4.96 1.4-6.5 K/uL Lymphocytes # (Auto) 0.68 1.2-3.4 K/uL Monocytes # (Auto) 0.06 0.11-0.59 K/uL Eosinophils # (Auto) 0.00 0-0.5 K/uL Basophils # (Auto) 0.01 0-0.2 K/uL RDW Standard Deviation 49.7 36.4-46.3 fL RDW Coefficient of Variation 14.6 11.5-14.5 % Immature Granulocyte % (Auto) 0.5 % Immature Granulocyte # (Auto) 0.03 0.00-0.02 K/uL Prothrombin Time 11.5 9.0-12.0 SECONDS Prothromb Time International Ratio 1.1 0.9-1.1 Activated Partial Thromboplast Time 26.7 21.0-31.0 SECONDS Partial Thromboplastin Ratio 1.0 Sodium Level 139 136-145 mmol/L Potassium Level 3.9 3.5-5.1 mmol/L Chloride Level 104 98-107 mmol/L Carbon Dioxide Level 20 21-32 mmol/L Anion Gap 15.0 3-11 mmol/L Blood Urea Nitrogen 8 7-18 mg/dl Creatinine 1.00 0.60-1.20 mg/dl Est Creatinine Clear Calc Drug Dose 94.6 ml/min Estimated GFR () 75.0 Estimated GFR (Non- 64.7 BUN/Creatinine Ratio 8.2 10-20 Random Glucose 357 70-99 mg/dl Calcium Level 8.3 8.5-10.1 mg/dl Total Bilirubin 0.2 0.2-1 mg/dl Direct Bilirubin < 0.1 0-0.2 mg/dl Aspartate Amino Transf (AST/SGOT) 65 15-37 U/L Alanine Aminotransferase (ALT/SGPT) 155 12-78 U/L Alkaline Phosphatase 182 45-117 U/L Troponin I 0.239 0-0.045 ng/ml Total Protein 7.2 6.4-8.2 gm/dl Albumin 3.1 3.4-5.0 gm/dl Beta-Hydroxybutyric Acid 2.98 0.2-2.81 mg/dL Thyroid Stimulating Hormone (TSH) 0.280 0.300-4.500 uIu/ml Salicylates Level 2.1 2.8-20 mg/dl Acetaminophen Level < 2 10-30 ug/ml Ethyl Alcohol mg/dL 79.0 0-3 mg/dl CXR normal EKG NSR - LVH - no ischemic changes Impression Assessment and Plan 51 y/o F w/Hx morbid obesity, ETOH abuse, Cocaine abuse, Benzodiazepine abuse, Opiate dependence, IDDM, Depression, COPD, paroxysmal AF. Pt presents to the ER for the second time today with complaints of CP and SOB. The pt states that she ingested a "tiny bit of cocaine" the previous day and also had 4 alcoholic beverages following discharge from the ER earlier. She states her CP is central and intermittent. She is SOB and has been wheezing for a few days and is being treated for a COPD exacerbation at present. Her SOB does not seem related to her CP and she denies associated nausea, vomiting or diaphoresis. Labs were redrawn and are consistent with mild DKA. Her troponin is elevated, however, this is chronic and is not above baseline. She is in a sinus rhythm on arrival and there are no changes on her EKG. 1) DKA - mild - placed on an insulin drip - electrolytes will be trended - cont HS Lantus - aggressive IVF provided. 2) CP - this appears to be chronic - there is no evidence of acute ischemia and per a cath in 2015, the pt does not have significant CAD - will repeat a troponin AM and monitor on telemetry - she is anticoagulated owing to her AF 3) PAF - sinus currently - cont Apixaban 4) COPD - she is actively wheezing and c/o SOB so that we will treat for exacerbation - IV steroids however may worsen her hyperglycemia and should be minimized as possible. 5) Cocaine abuse - I have informed the pt that aside from it's occasional use as a dental anesthetic, there are no benefits to Cocaine use and that it puts her at higher risk of a vascular event. 6) ETOH abuse - she states that she may go into DTs. She also has a history of Benzodiazepine abuse so that we would not treat her for withdrawal unless early signs were apparent. She does not exhibit withdrawal signs on admission, however, her ETOH level is elevated which may be taking the edge off. 7) Morbid Obesity - nutritional counseling is in order although she has more pressing concerns at present. 8) Tobacco abuse - continues to smoke up to a pack daily - Lectured extensively on the hazards of smoking - does not seem interested in cessation presently. This pt presents to the ER frequently - she suffers from polysubstance abuse, morbid obesity and a litany of comorbidities - it is unclear if she is competent to care for herself although she seems to have a clear grasp on her own issues. She would probably benefit from placement in group housing or long- term rehab. Social work should be consulted prior to DC. Level of Care Telemetry Resuscitation Status FULL RESUSCITATION VTE Prophylaxis VTE Risk Assessment Done? Y/N: Yes Risk Level: Moderate Given or contraindicated: Other Anticoagulation
[2016-12-08] MEDS: HYDROCODONE/ACETAMI 10/325 TAB PO PRN ×3 (01:58→18:20)
[2016-12-08] MEDS ORDERED: SODIUM CHLORIDE 0.9% 1000ML 1,000 ML IV SCH (02:15)
[2016-12-08] MEDS ORDERED: IV FLUIDS COMPLETED PRN (02:45)
[2016-12-08] MEDS: LORAZEPAM 0.5 MG TAB PO PRN ×2 (02:46→14:00)
[2016-12-08] MEDS: TRAZODONE HCL 50 MG TAB PO PRN ×2 (03:03→20:33)
[2016-12-08 03:10] LABS: BUN/CREATININE RATIO 8.9 (10-20); CALCIUM 8.5 mg/dl (8.5-10.1); CREATININE 0.78 mg/dl (0.60-1.20); POTASSIUM 4.2 mmol/L (3.5-5.1)
[2016-12-08] MEDS ORDERED: NURSING VERBAL MED ORDER ONE (03:30)
[2016-12-08] MEDS ORDERED: PHARMACY GLYCEMIC MGMT CONSULT PRN (04:15)
[2016-12-08] MEDS: ALBUT/IPRATROP 3MG/0.5MG NEB 3 ML VIAL INH SCH ×4 (04:15→18:49)
[2016-12-08] MEDS ORDERED: DEXTROSE 50% 50 ML SYR IV PRN (04:15)
[2016-12-08] MEDS ORDERED: GLUCOSE 40% GEL 15 GM TUBE PO PRN (04:15)
[2016-12-08] MEDS ORDERED: INSULIN GLARGINE SOLOSTAR 100 UNITS/ML 3 ML PEN SC ONE ×2 (04:15→09:00)
[2016-12-08] MEDS ORDERED: GLUCAGON FOR INJ 1 MG VIAL SQ PRN (04:15)
[2016-12-08] MEDS ORDERED: GLUCOSE 10 TABS/TUBE PO PRN (04:15)
[2016-12-08] MEDS: METHYLPREDNISOLONE IV 40 MG in SYRINGE 0 ML IV SCH ×3 (04:30→20:27)
[2016-12-08] MEDS: INSULIN ASPART 100 UNITS/ML 3 ML PEN SC SCH ×5 (05:44→20:31)
[2016-12-08 06:41] LABS: BUN/CREATININE RATIO 12.3 (10-20); CALCIUM 8.5 mg/dl (8.5-10.1); CREATININE 0.75 mg/dl (0.60-1.20); MAGNESIUM 2.1 mg/dl (1.8-2.4); POTASSIUM 4.1 mmol/L (3.5-5.1)
[2016-12-08 06:49] LABS: ALB/GLOB RATIO 0.8 (0.9-2); PHOSPHORUS 3.6 mg/dl (2.5-4.9)
[2016-12-08] MEDS ORDERED: INSULIN ASPART 100 UNITS/ML 3 ML PEN SC SCH ×2 (08:00)
[2016-12-08] MEDS: APIXABAN 2.5 MG TAB PO SCH ×2 (08:20→20:27)
[2016-12-08] MEDS: RANITIDINE HCL 150 MG TAB PO SCH ×2 (08:21→20:28)
[2016-12-08] MEDS: DILTIAZEM HCL 300 MG CAPCR PO SCH (08:21)
[2016-12-08] MEDS: PANTOprazole SOD 40 MG TAB PO SCH (08:21)
[2016-12-08] MEDS: AZITHROMYCIN 250 MG TAB PO SCH (08:21)
[2016-12-08] MEDS: METOPROLOL SUCC 50MG EXT REL TAB PO SCH ×2 (08:22→20:28)
[2016-12-08] MEDS: LOSARTAN POTASSIUM 50 MG TAB PO SCH (08:22)
[2016-12-08] MEDS: FUROSEMIDE 40 MG TAB PO SCH (08:23)
[2016-12-08] MEDS: BUDESONIDE/FORMOTEROL FUMARATE 160/4.5 60 PUFFS/INHALER INH SCH ×2 (09:00→20:27)
--- NOTE | 2016-12-08 12:10 | Pharmacy Progress Note ---
Glycemic Control Intl Consult Date of Service Dec 08, 2016. Scope Glycemic Pharmacist consulted by Dr Eaton on 12/08/16 for glycemic control and to write orders per [facility] inpatient glycemic control protocol Objective Weight (Kilograms): 139.500 Accuchecks BSG (last 24hrs): Test 12/07/16 20:16 12/07/16 20:38 12/07/16 23:24 12/08/16 00:28 Bedside Glucose 390 mg/dl (70-90) 292 mg/dl (70-90) 231 mg/dl (70-90) Random Glucose 357 mg/dl (70-99) Test 12/08/16 01:24 12/08/16 02:20 12/08/16 02:34 12/08/16 05:05 Bedside Glucose 207 mg/dl (70-90) 215 mg/dl (70-90) Random Glucose 215 mg/dl (70-99) 217 mg/dl (70-99) Test 12/08/16 05:38 12/08/16 06:53 Bedside Glucose 239 mg/dl (70-90) 198 mg/dl (70-90) Laboratory Data (last 24hrs) Test 12/07/16 20:38 12/08/16 02:20 12/08/16 05:05 Anion Gap 15.0 mmol/L 11.0 mmol/L 11.0 mmol/L BUN/Creatinine Ratio 8.2 8.9 12.3 Blood Urea Nitrogen 8 mg/dl 7 mg/dl 9 mg/dl Creatinine 1.00 mg/dl 0.78 mg/dl 0.75 mg/dl Potassium Level 3.9 mmol/L 4.2 mmol/L 4.1 mmol/L Sodium Level 139 mmol/L 138 mmol/L 139 mmol/L White Blood Count 5.74 K/uL Red Blood Count 3.99 M/uL Hemoglobin 12.4 g/dL Hematocrit 37.6 % Mean Corpuscular Volume 94.2 fL Mean Corpuscular Hemoglobin 31.1 pg Mean Corpuscular Hemoglobin Concent 33.0 g/dl Platelet Count 230 K/uL Mean Platelet Volume 10.0 fL Neutrophils (%) (Auto) 86.5 % Lymphocytes (%) (Auto) 11.8 % Monocytes (%) (Auto) 1.0 % Eosinophils (%) (Auto) 0.0 % Basophils (%) (Auto) 0.2 % Neutrophils # (Auto) 4.96 K/uL Lymphocytes # (Auto) 0.68 K/uL Monocytes # (Auto) 0.06 K/uL Eosinophils # (Auto) 0.00 K/uL Basophils # (Auto) 0.01 K/uL HbA1c 8.3% 08/26/16 Recent Pertinent Medications Outpatient Anti-diabetic Regimen: * Lantus 48 units Q PM * Humalog 8 units TID w/ meals * A1c = 8.3 % 08/26/16 The patient is currently receiving: * Basal insulin: Lantus 15 units SQ x 1 given this AM, ordered to begin 50 units Q PM this evening * Correctional Insulin: Novolog Correction per scale ACHS Goal Range: Low 120 mg/dL - High 160 mg/dL Correction Factor: 15 mg/dL/unit * Prandial insulin: Per carb ratio of 1 unit per 5 grams CHO consumed * Oral Agents: None currently Risk Factors for Insulin Resistance: * Steroids: Solu-Medrol 40mg IV Q 8 hours * Infection: COPD exac; receiving Azithromycin PO * Diet: ordered T2DM / AHA diet Assessment & Plan ASSESSMENT: 12/08/16 * Type 2 diabetic admitted yesterday evening secondary to CP and SOB in the setting of recent cocaine and EtOH use - she is currently being treated for COPD exacerbation and she is being worked up for CAD / ACS * This patient is known to the Glycemic Control Service from previous admissions * When the patient was admitted in the past and received a similar dose of IV steroids she required 180+ units of insulin per day (while tolerating a diet) * She was initially treated with IV insulin infusion for hyperglycemia/mild ketoacidosis. Anion gap and bicarb normalized this AM. This AM the drip was d/ c'd and she was started on a basal bolus regimen, however I feel that the current insulin regimen will not be adequate to prevent return of hyperglycemia. Will escalate both the Lantus and Novolog doses based upon an anticipated total daily requirement of ~180 units/day. If steroids are cut or dose is decreased, will need to quickly back off on insulin doses. PLAN FOR INPATIENT GLYCEMIC CONTROL: * Increasing Lantus to 45 units SQ BID; give additional 30 units x 1 this AM * Changing correction factor to 10 mg/dl/unit * Changing carb ratio to 1 unit per 4 grams CHO consumed * Changing goal range to Low 110 mg/dL - High 140 mg/dL * Add BSG check at 0200 and cover with the above Novolog order * Reassess insulin doses with each step-down in steroid dose * Please note that the plan above was derived based on current level of insulin resistance and hospital stress. These recommendations are appropriate for inpatient admission only. Plan of care upon discharge will need to be reassessed to avoid potential outpatient hypo/hyperglycemia. Thank you.
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
[2016-12-08] MEDS ORDERED: PHARMACY GLYCEMIC MGMT CONSULT STA (12:30)
[2016-12-08] MEDS: INSULIN GLARGINE SOLOSTAR 100 UNITS/ML 3 ML PEN SC SCH (20:32)
[2016-12-08] MEDS ORDERED: INSULIN GLARGINE SOLOSTAR 100 UNITS/ML 3 ML PEN SC SCH (21:00)
[2016-12-09] VITALS (10 sets, daily range): BP systolic 129–172; BP diastolic 51–104; PULSE 55–88; TEMP 36.7–37; O2SAT 93–99; Ht 167.6 cm; Wt 139.3 kg
[2016-12-09] MEDS ORDERED: INSULIN ASPART 100 UNITS/ML 3 ML PEN SC ONE (02:00)
[2016-12-09] MEDS: ALBUT/IPRATROP 3MG/0.5MG NEB 3 ML VIAL INH SCH ×4 (02:06→19:07)
[2016-12-09] MEDS: LORAZEPAM 0.5 MG TAB PO PRN ×2 (02:11→15:52)
[2016-12-09] MEDS: HYDROCODONE/ACETAMI 10/325 TAB PO PRN ×3 (02:11→18:10)
[2016-12-09] MEDS: METHYLPREDNISOLONE IV 40 MG in SYRINGE 0 ML IV SCH (04:09)
[2016-12-09 07:08] LABS: ESTIMATED AVERAGE GLUCOSE 209 mg/dl; HA1C FLAG Normal (Normal)
[2016-12-09] MEDS: INSULIN ASPART 100 UNITS/ML 3 ML PEN SC SCH ×4 (08:41→20:18)
[2016-12-09] MEDS: INSULIN GLARGINE SOLOSTAR 100 UNITS/ML 3 ML PEN SC SCH ×2 (08:42→20:19)
[2016-12-09] MEDS: LOSARTAN POTASSIUM 50 MG TAB PO SCH (08:42)
[2016-12-09] MEDS: PANTOprazole SOD 40 MG TAB PO SCH (08:43)
[2016-12-09] MEDS: RANITIDINE HCL 150 MG TAB PO SCH ×2 (08:43→20:10)
[2016-12-09] MEDS: DILTIAZEM HCL 300 MG CAPCR PO SCH (08:43)
[2016-12-09] MEDS: AZITHROMYCIN 250 MG TAB PO SCH (08:43)
[2016-12-09] MEDS: APIXABAN 2.5 MG TAB PO SCH ×2 (08:43→20:10)
[2016-12-09] MEDS: FUROSEMIDE 40 MG TAB PO SCH (08:43)
[2016-12-09] MEDS: METOPROLOL SUCC 50MG EXT REL TAB PO SCH ×2 (08:43→20:10)
[2016-12-09] MEDS: BUDESONIDE/FORMOTEROL FUMARATE 160/4.5 60 PUFFS/INHALER INH SCH ×2 (08:44→20:09)
[2016-12-09] MEDS: LACTULOSE SYRUP 20 GM/30 ML UDC PO PRN (11:23)
--- NOTE | 2016-12-09 15:43 | Medical Student: [facility] ---
Med Student Progress Note Date of Service Dec 09, 2016. Subjective This is a 51 y/o female with pmh of multi-drug abuse, schizoaffective, DMII, COPD who presents with anion gap acidosis, chest pain, and copd exacerbation. Today she is feeling better overall, with no acute events overnight. Her blood glucose continues to remain elevated over 200. She complains of a cough productive of sputum. She is eating and drinking. She has been afebrile. She does note that she has been constipated. Review of Systems Constitutional: No fever, No chills, No sweats Respiratory: + cough, + sputum, + wheezing, No shortness of breath, No dyspnea on exertion Cardiac: No chest pain, No orthopnea Abdomen: + constipation, No pain, No nausea, No vomiting, No diarrhea Female : No dysuria Psychiatric: + anxiety Skin: No rash Objective Vital Signs Date Time Temp Pulse Resp B/P (MAP) Pulse Ox O2 Delivery O2 Flow Rate FiO2 12/09/16 14:09 58 16 93 Nasal Cannula 2.0 12/09/16 12:00 Nasal Cannula 2.0 12/09/16 11:37 36.9 88 16 131/51 (77) 99 12/09/16 08:09 37.0 86 22 129/65 (86) 93 12/09/16 08:00 Nasal Cannula 2.0 12/09/16 06:47 59 16 96 Nasal Cannula 2.0 12/09/16 04:05 161/82 (108) 12/09/16 04:03 Nasal Cannula 2.0 12/09/16 03:46 36.8 66 20 172/104 (126) 93 Nasal Cannula 2.0 12/09/16 02:06 56 16 98 Nasal Cannula 2.0 12/09/16 00:01 Nasal Cannula 2.0 12/08/16 23:18 37.1 58 22 152/61 (91) 97 Nasal Cannula 2.0 12/08/16 20:06 Nasal Cannula 2.0 12/08/16 18:56 36.6 59 18 149/70 (96) 96 Nasal Cannula 2.0 12/08/16 18:50 76 16 96 Nasal Cannula 2.0 12/08/16 16:00 Nasal Cannula 2.0 12/08/16 15:48 36.5 66 20 158/76 (103) 95 Nasal Cannula 2.0 Physical Exam General Appearance: WD/WN, no apparent distress Eyes: bilateral eyes normal inspection, bilateral eyes PERRL ENT: pharynx normal Neck: supple, no adenopathy, thyroid normal Respiratory/Chest: no respiratory distress, no accessory muscle use, + decreased breath sounds, + crackles, + wheezing Cardiovascular: regular rate, rhythm, no edema, no JVD Abdomen: normal bowel sounds, non tender, soft, no organomegaly Extremities: normal range of motion, non-tender, normal inspection, no pedal edema Neurologic/Psychiatric: no motor/sensory deficits, normal mood/affect, oriented x 3 Lymphatic: no adenopathy Laboratory Results Last 24 Hours Test 12/08/16 16:21 12/08/16 19:10 12/08/16 20:15 12/09/16 02:06 Bedside Glucose 228 mg/dl 319 mg/dl 304 mg/dl Troponin I 0.167 ng/ml Test 12/09/16 05:23 12/09/16 06:37 12/09/16 10:56 Estimated Average Glucose 209 mg/dl Hemoglobin A1c 8.9 % Bedside Glucose 201 mg/dl 302 mg/dl Medications Medications Administered Medications (Trade) Dose Ordered Sig/Lucien Route Start Time Stop Time Status Last Admin Dose Admin Sodium Chloride 1,000 ml @ 999 mls/hr Q1H1M STAT IV 12/07/16 22:33 12/07/16 23:33 DC 12/07/16 22:56 999 MLS/HR Insulin Human Regular 3.5 unit/ Syringe 3.5 ml @ 1 mls/min TODAY@2300 IV 12/07/16 23:00 12/07/16 23:04 DC 12/07/16 23:33 1 MLS/MIN Insulin Human Regular 250 units/ Sodium Chloride 252.5 ml @ 0 mls/hr DAILY@1130 IV 12/07/16 23:00 12/08/16 04:12 DC 12/07/16 23:34 3.5 MLS/HR Aspirin (Aspirin Chew) 324 mg NOW STAT PO 12/07/16 23:03 12/07/16 23:04 DC 12/07/16 23:38 324 MG Albuterol Sulfate (Ventolin 0.083% 2.5MG/3ML Neb) 2.5 mg Q4H PRN INH 12/08/16 00:15 01/07/17 00:14 12/08/16 02:25 2.5 MG Azithromycin (Zithromax Tab) 250 mg DAILY PO 12/08/16 09:00 12/09/16 11:58 DC 12/09/16 08:43 250 MG Budesonide/ Formoterol Fumarate (Symbicort 160/ 4.5 Inh) 2 puffs BID INH 12/08/16 09:00 01/07/17 08:59 12/09/16 08:44 2 PUFFS Diltiazem HCl (Cardizem Cd Cap) 300 mg QAM PO 12/08/16 09:00 01/07/17 08:59 12/09/16 08:43 300 MG Furosemide (Lasix Tab) 40 mg QAM PO 12/08/16 09:00 01/07/17 08:59 12/09/16 08:43 40 MG Acetaminophen/ Hydrocodone Bitart ([place] 10/325 Tab) 1 tab TID PRN PO 12/08/16 00:15 12/22/16 00:14 12/09/16 10:14 1 TAB Lactulose (Chronulac Syrup) 20 gm DAILY PRN PO 12/08/16 00:15 01/07/17 00:14 12/09/16 11:23 20 GM Lorazepam (Ativan Tab) 0.5 mg BID PRN PO 12/08/16 00:15 01/07/17 00:14 12/09/16 02:11 0.5 MG Losartan Potassium (coZAAR TAB) 50 mg QAM PO 12/08/16 09:00 01/07/17 08:59 12/09/16 08:42 50 MG Ranitidine HCl (zANTac TAB) 150 mg BID PO 12/08/16 09:00 01/07/17 08:59 12/09/16 08:43 150 MG Trazodone HCl (Desyrel Tab) 150 mg HS PRN PO 12/08/16 00:15 01/07/17 00:14 12/08/16 20:33 150 MG Valacyclovir HCl (Valtrex Tab) 500 mg QAM PO 12/08/16 09:00 12/18/16 08:59 12/09/16 08:42 500 MG Apixaban (Eliquis Tab) 5 mg BID PO 12/08/16 09:00 01/07/17 08:59 12/09/16 08:43 5 MG Metoprolol Succinate (Toprol Xl Tab) 100 mg BID PO 12/08/16 09:00 01/07/17 08:59 12/09/16 08:43 100 MG Pantoprazole Sodium (Protonix Tab) 40 mg QAM PO 12/08/16 09:00 01/07/17 08:59 12/09/16 08:43 40 MG Ondansetron HCl (Zofran Inj) 4 mg Q6H PRN IV 12/08/16 00:15 01/07/17 00:14 12/08/16 16:54 4 MG Sodium Chloride 1,000 ml @ 125 mls/hr Q8H IV 12/08/16 02:15 12/08/16 10:14 DC 12/08/16 02:46 125 MLS/HR Insulin Aspart (novoLOG ASPART) SLIDING SCALE PCHS SC 12/08/16 08:00 12/08/16 08:00 DC 12/08/16 02:38 7 UNITS Potassium Chloride (Klor-Con M10) 20 meq ONE STAT PO 12/08/16 00:45 12/08/16 00:46 DC 12/08/16 00:57 20 MEQ Albuterol/ Ipratropium (Duoneb) 3 ml Q6R INH 12/08/16 04:15 01/07/17 04:14 12/09/16 14:05 3 ML Methylprednisolone Sodium Succinate 40 mg/Syringe 0.64 ml @ 1.5 mls/min Q8H IV 12/08/16 04:00 12/09/16 07:37 DC 12/09/16 04:09 1.5 MLS/MIN Insulin Aspart (novoLOG ASPART) SLIDING SCALE ACHS SC 12/08/16 04:15 01/07/17 04:14 12/09/16 13:24 29 UNITS Insulin Glargine (Lantus Solostar Pen) 15 unit ONE ONCE SC 12/08/16 04:15 12/08/16 04:16 DC 12/08/16 05:43 15 UNIT Insulin Glargine (Lantus Solostar Pen) 30 unit ONE ONCE SC 12/08/16 09:00 12/08/16 09:01 DC 6/11/17 09:29 30 UNIT Insulin Glargine (Lantus Solostar Pen) 45 unit BID SC 12/08/16 21:00 01/07/17 20:59 12/09/16 08:42 45 UNIT Insulin Aspart (novoLOG ASPART) SLIDING SCALE TODAY@0200 ONCE SC 12/09/16 02:00 12/09/16 02:01 DC 12/09/16 02:25 17 UNITS Prednisone (PredniSONE TAB) 40 mg DAILY PO 12/09/16 09:00 01/08/17 08:59 12/09/16 08:42 40 MG Assessment and Plan Assessment and Plan: This is a 51 year old woman with multiple comorbidities who presents with COPD exacerbation, uncontrolled diabetes, and chest pain. Chest pain is likely not cardiac in origin and has resolved. 1. COPD exacerbation -unlikely to be bronchitis. Discontinue azithromycin -Methylprednisolone changed to prednison 40 mg PO. Will taper accordingly going forward -Continue duonebs -Continue symbicort 2. DMII -continue novalog 45 units BID -Continue to adjust short-acting as needed with diet -Diabetic diet -Aim to have fasting glucose <200 -A1c 8.9% 3. Schizoaffective/Personality Disorder -Restart trilophon 4 mg BID, will increase as tolerated 4. Chest pain -resolved, unlikely cardiac in nature -troponins stabilized 5. HTN -Continue Losartan 50mg qam -Continue lasix 40 mg qam 6. A Fib -currently nsr -continue apixaban 7. Multi-drug abuse -Patient has been counseled on her use of cocaine and its relation to HTN, cardiac disease, and chest pain -Patient has not shown clear signs of alcohol or benzo withdrawal DVT Prophylaxis -Apixaban Code Status -FULL CODE Continued [facility] stay due to: multiple IV medications needed Discharge planning: rehab hospital, uncertain
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
[2016-12-09] MEDS: PERPHENAZINE 2 MG TAB PO SCH (20:10)
[2016-12-09] MEDS: TRAZODONE HCL 50 MG TAB PO PRN (20:12)
[2016-12-10 00:50] VITALS: BP 129/66; PULSE 57; TEMP 36.8; O2SAT 91
[2016-12-10] MEDS: HYDROCODONE/ACETAMI 10/325 TAB PO PRN ×2 (01:13→09:25)
[2016-12-10] MEDS ORDERED: INSULIN ASPART 100 UNITS/ML 3 ML PEN SC ONE (02:00)
[2016-12-10 02:06] VITALS: PULSE 71; O2SAT 94
[2016-12-10] MEDS: ALBUT/IPRATROP 3MG/0.5MG NEB 3 ML VIAL INH SCH ×2 (02:06→07:01)
[2016-12-10] MEDS: LORAZEPAM 0.5 MG TAB PO PRN (02:15)
[2016-12-10 04:36] VITALS: BP 157/85; PULSE 60; TEMP 36.9; O2SAT 91
[2016-12-10] MEDS: LACTULOSE SYRUP 20 GM/30 ML UDC PO PRN (04:37)
[2016-12-10 06:56] VITALS: BP 123/68; PULSE 51; TEMP 36.7; O2SAT 93
[2016-12-10 07:01] VITALS: PULSE 71; O2SAT 92
[2016-12-10] MEDS: BUDESONIDE/FORMOTEROL FUMARATE 160/4.5 60 PUFFS/INHALER INH SCH (08:04)
[2016-12-10] MEDS: METOPROLOL SUCC 50MG EXT REL TAB PO SCH (08:05)
[2016-12-10] MEDS: FUROSEMIDE 40 MG TAB PO SCH (08:05)
[2016-12-10] MEDS: RANITIDINE HCL 150 MG TAB PO SCH (08:06)
[2016-12-10] MEDS: PERPHENAZINE 2 MG TAB PO SCH (08:06)
[2016-12-10] MEDS: APIXABAN 2.5 MG TAB PO SCH (08:06)
[2016-12-10] MEDS: LOSARTAN POTASSIUM 50 MG TAB PO SCH (08:07)
[2016-12-10] MEDS: PANTOprazole SOD 40 MG TAB PO SCH (08:07)
[2016-12-10] MEDS: DILTIAZEM HCL 300 MG CAPCR PO SCH (08:07)
[2016-12-10] MEDS: INSULIN ASPART 100 UNITS/ML 3 ML PEN SC SCH ×2 (08:13→12:07)
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
[2016-12-10] MEDS ORDERED: INSULIN GLARGINE SOLOSTAR 100 UNITS/ML 3 ML PEN SC SCH (09:00)
--- NOTE | 2016-12-10 10:11 | Discharge Instructions ---
Discharge Instructions Date of Service Dec 10, 2016. Admission Reason for Admission: Chest Pain, Dka Discharge Discharge Diagnosis / Problem: copd exacerbation, atypical chest pain, uncontrolled diabetes Discharge Goals Goal(s): Diagnostic testing, Therapeutic intervention Activity Recommendations Activity Limitations: resume your previous activity . Instructions / Follow-Up Instructions / Follow-Up Please take twice daily insulin (lantus) until further instruction from primary care Current Hospital Diet Patient's current hospital diet: AHA Diet (Heart Healthy), Diabetes Type 2 Diet Discharge Diet Recommended Diet: Diabetes Type 2 Diet Pending Studies Studies pending at discharge: no Laboratory Results Hemoglobin A1c Test 12/09/16 05:23 Range/Units Estimated Average Glucose 209 mg/dl Hemoglobin A1c 8.9 H 4.5-5.6 % Medical Emergencies . Who to Call and When: Medical Emergencies: If at any time you feel your situation is an emergency, please call 911 immediately. . Non-Emergent Contact Non-Emergency issues call your: Primary Care Provider Call Non-Emergent contact if: temperature is above 101, your pain is unusual for you . . "Provider Documentation" section prepared by Cristobal Alberto. . VTE Core Measure Inpt VTE Proph given/why not?: Other Anticoagulation
[2016-12-10] MEDS ORDERED: IPRASOL4 INH (10:16)
[2016-12-10] MEDS ORDERED: TRL2 PO (10:16)
[2016-12-10] MEDS ORDERED: HYDR-4383 PO (10:16)
[2016-12-10] MEDS ORDERED: PRED10TA PO (10:16)
[2016-12-10] MEDS ORDERED: INSDGI SC (10:16)
--- NOTE | 2016-12-10 10:22 | Pharmacy Progress Note ---
Glycemic: Assessment & Plan Date of Service Dec 10, 2016. Assessment & Plan Outpatient Anti-diabetic Regimen: * Lantus 48 units Q PM * Humalog 8 units TID w/ meals * A1c = 8.3 % 08/26/16 ASSESSMENT: 12/10/16: * Patient's steroids were decreased significantly yesterday (SoluMedrol 40mg q8h --> Prednisone 40mg PO daily). * Lantus dose decreased this morning, as BSGs improved markedly overnight w/ steroid deescalation. May need to further decrease Lantus, depending on BSGs today. * Will also consider loosening correctional/prandial parameters for Novolog. 12/08/16 - initial * Type 2 diabetic admitted secondary to CP and SOB in the setting of recent cocaine and EtOH use - she is currently being treated for COPD exacerbation and she is being worked up for CAD / ACS * This patient is known to the Glycemic Control Service from previous admissions * When the patient was admitted in the past and received a similar dose of IV steroids she required 180+ units of insulin per day * She was initially treated with IV insulin infusion for hyperglycemia/mild ketoacidosis. Anion gap and bicarb normalized this AM. This AM the drip was d/ c'd and she was started on a basal bolus regimen, however I feel that the current insulin regimen will not be adequate to prevent return of hyperglycemia. Will escalate both the Lantus and Novolog doses based upon an anticipated total daily requirement of ~180 units/day. If steroids are cut or dose is decreased, will need to quickly back off on insulin doses. PLAN FOR INPATIENT GLYCEMIC CONTROL: * Decrease Lantus to 35 units SQ BID * Will potentially reduce further beginning this evening. Tomorrow, will work toward transitioning to once daily dosing (per outpatient regimen) * Novolog for correctional/prandial coverage, ACHS * Correction factor: 10 mg/dl/unit * Carb ratio: 1 unit per 4 grams CHO consumed * Goal range: Low 110 mg/dL - High 140 mg/dL * Will continue to adjust as needed as steroid tapers DISCHARGE PLANNING: * Patient's current A1c (8.9%) indicates sub-optimal glycemic control as an outpatient. Would prefer A1c < 6% in 51yo patient. * Patient appears to require larger prandial doses of Novolog than she takes at home. Might consider increasing Humalog TID dose. * Please note that the plan above was derived based on current level of insulin resistance and hospital stress. These recommendations are appropriate for inpatient admission only. Plan of care upon discharge will need to be reassessed to avoid potential outpatient hypo/hyperglycemia. Thank you.
[2016-12-10 10:39] VITALS: BP 123/68; PULSE 71; TEMP 36.7; O2SAT 92
--- NOTE | 2016-12-10 18:19 | Discharge Summary ---
Discharge Summary Date of Service Dec 10, 2016. Discharge Summary Admission Date: Dec 08, 2016 at 00:18 Discharge Date: Dec 10, 2016 Discharge Disposition: Home Principal Diagnosis: copd exacerbation Problems/Secondary Diagnoses: (1) Cocaine abuse Status: Chronic Immunizations: Have You Had Influenza Vaccine: Yes Influenza Vaccine Date: Apr 23, 2012 History of Tetanus Vaccine?: Unknown History of Pneumococcal: Yes Pneumococcal Date: Mar 12, 2011 History of Hepatitis B Vaccine: had one shot of the series Medication Reconciliation New Medications: Prednisone Tab (Prednisone) 10 Mg Tab 10 MG PO UD, #42 TAB 4 pills a day for 4 days then 3 pills a day for 4 days then 2 pills a day for 4 days then 1 a day Ipratropium-Albuterol (Duoneb) 3 Ml Nebu 3 ML INH Q6R, #120 DOSE diagnosis j44.9 Perphenazine (Perphenazine) 2 Mg Tab 4 MG PO BID, #60 TAB Changed Medications: Insulin Glargine (Lantus) 100 Unit/Ml Inj 35 UNITS SC BID, #1 VIAL (Changed from: 48 UNITS; QPM) Continued Medications: Albuterol Hfa (Ventolin Hfa) 200 Puffs/63392 Mcg Aers 2 PUFFS INH Q6H PRN for SOB/Wheezing Apixaban (Eliquis) 5 Mg Tab 5 MG PO BID ON HOLD FOR COLONOSCOPY Budesonide/Formoterol Fumarate (Symbicort 160/4.5 Inhaler) 120 Puffs/ Aero 2 PUFFS INH BID for 30 Days, #1 INHALER 5 Refills Diltiazem Hcl Coated Beads (Diltiazem Hcl Er) 300 Mg Cap 300 MG PO QAM Furosemide (Furosemide) 40 Mg Tab 40 MG PO QAM Hydrocodone/Acetaminophen ([place] 10/325 Tab) 1 Tab Tab 1 TAB PO TID PRN for Pain, #30 TAB (This prescription has been renewed) Insulin Lispro (Human) (Humalog) 100 Unit/Ml Inj 8 UNITS SQ TIDM IF BLOOD SUGAR IS ABOVE 200 TAKE AN ADDITONAL 2 UNITS Lactulose (Chronulac) 10 Gm/15 Ml Syrp 20 GM PO DAILY PRN for Constipation Loratadine (Claritin) 10 Mg Tab 10 MG PO DAILY PRN for PRN, TAB Lorazepam (Ativan) 0.5 Mg Tab 0.5 MG PO BID PRN for Anxiety/Agitation, TAB Losartan Potassium (Losartan Potassium) 50 Mg Tab 50 MG PO QAM Metoprolol Succinate (Metoprolol Succinate ER) 100 Mg Tabcr 100 MG PO BID Omeprazole (Prilosec) 20 Mg Cap 20 MG PO QAM Ranitidine HCl (Ranitidine HCl) 150 Mg Tab 150 MG PO BID Trazodone Hcl (Trazodone) 100 Mg Tab 150 MG PO HS PRN for Sleep, TAB Valacyclovir HCl (Valacyclovir HCl) 500 Mg Tab 500 MG PO QAM Discontinued Medications: Albuterol Sulf (Proventil 0.083% 2.5MG/3ML) 2.5 Mg/3 Ml Nebu 2.5 MG INH Q4-6HRS PRN for Wheezing, EA Azithromycin (Zithromax) 250 Mg Tab 250 MG PO DAILY, #4 TAB Prednisone (Prednisone Tab) 20 Mg Tab 0 PO DAILY, #7 TAB 2 TABS DAILY FOR 2 DAYS, THEN 1 TAB DAILY FOR 2 DAYS, THEN 1/2 TAB DAILY FOR 2 DAYS. Discharge Exam Review of Systems: Constitutional: No fever, No chills Respiratory: + cough, + sputum, + shortness of breath, + dyspnea on exertion Abdomen: No pain, No nausea, No vomiting, No diarrhea Neurologic: No memory loss, No paralysis, No weakness, No numbness/tingling Physical Exam: General Appearance: WD/WN, + mild distress Neck: supple, no JVD Respiratory/Chest: chest non-tender, normal breath sounds, + decreased breath sounds, + rhonchi Cardiovascular: regular rate, rhythm, normal peripheral pulses Abdomen / GI: normal bowel sounds, non tender, soft Hospital Course 51 y/o F presents with chest pain associated with cocaine use, chronically elevated troponin and some acidosis on lab testing, PMHX of, IDDM, Depression, COPD, paroxysmal AF. Monitor sowed sinus rhythm on arrival and no changes on her EKG. DKA - Off Drip. reinforced basal bolus insulin acidosis may have not been traditional DKA CP - appears to be chronic - there is no evidence of acute ischemia and per a cath in 2015, the pt does not have significant CAD - resolving. PAF - sinus currently - cont Apixaban COPD with superimposed bronchitis -steroids and pulmonary toilet ETOH abuse - she states that she may go into DTs. She also has a history of Benzodiazepine abuse, no signs while she is here Tobacco abuse - continues to smoke up to a pack daily - counselled to stop Depression starting trilafon will rx . Total Time Spent: Greater than 30 minutes This includes examination of the patient, discharge planning, medication reconciliation, and communication with other providers. Discharge Instructions Please refer to the electronic Patient Visit Report (Discharge Instructions) for additional information.
[2016-12-12 10:18] LABS: COCAINE, URINE 1420 NG/ML (CUTOFF=100)
[2017-04-06] MEDS ORDERED: METO100T44 PO (00:46)
== END 2016-12-10 12:27 | disposition home or self-care (01) ==
LOC: EDBD 19:20 → C.EDA 19:21 → C.2E 12-08 00:18 → ENRESERV 12-08 01:00
PROVIDERS: ADMIT Internal Medicine; ATTEND Internal Medicine
DX: J44.1 Chronic obstructive pulmonary disease with (acute) exacerbation (principal); F14.10 Cocaine abuse, uncomplicated; I48.0 Paroxysmal atrial fibrillation; I10 Essential (primary) hypertension; Z98.890 Other specified postprocedural states; F17.200 Nicotine dependence, unspecified, uncomplicated; Z79.01 Long term (current) use of anticoagulants; Z79.4 Long term (current) use of insulin; Z88.0 Allergy status to penicillin; Z88.5 Allergy status to narcotic agent; Z83.3 Family history of diabetes mellitus; Z82.49 Family history of ischemic heart disease and other diseases of the circulatory system

== ENCOUNTER 2016-12-12 12:35 | Emergency (ER) | payer OTHER ==
[~2016-12-12] VITALS: Ht 167.6 cm; Wt 140.0 kg
[~2016-12-12 12:35] MED LIST changes: -ALBINS/ INH; -AZIT-60 PO; -FLUT1INH INH; +IPRASOL4 INH; -NVLGI/PEN SQ; +PRED10TA PO; -PRED20TA2 PO; +TRL2 PO
[2016-12-12 12:40] VITALS: TEMP 36.7
[2016-12-12] MEDS ORDERED: PERP4TAB37 PO (12:59)
[2016-12-12] MEDS ORDERED: HYDR-4079 PO (12:59)
[2016-12-12] MEDS ORDERED: PRED10TA PO (12:59)
[2016-12-12] MEDS ORDERED: IPRASOL4 INH (12:59)
[2016-12-12] MEDS ORDERED: INSDGI SQ (13:00)
[2016-12-12] MEDS ORDERED: ALBUT/IPRATROP 3MG/0.5MG NEB 3 ML VIAL INH STA (15:07)
[2016-12-12 15:18] VITALS: Ht 167.6 cm; Wt 140.0 kg
--- NOTE | 2016-12-12 15:40 | DIAGNOSTIC IMAGING REPORT ---
CHEST ONE VIEW PORTABLE CLINICAL HISTORY: Dyspnea dyspnea COMPARISON STUDY: 12/07/2016 FINDINGS: Mild stable cardiomegaly. Increased density left base felt to be secondary to overlap soft tissue artifact. Lungs otherwise are clear. IMPRESSION: Mild stable cardiomegaly. No acute process. Electronically signed by: Bunny Beck M.D. 12/12/2016 3:39 PM Dictated Date/Time: 12/12/2016 3:38 PM
--- NOTE | 2016-12-12 15:42 | DIAGNOSTIC IMAGING REPORT ---
LEFT SHOULDER 3 VIEWS HISTORY: Left shoulder pain COMPARISON: Left shoulder 12/07/2016. FINDINGS: Severe osteoarthritis within the left glenohumeral joint, unchanged. The left clavicle is intact. Large marginal osteophytes within the left femoral head. Ossific densities adjacent to the greater tuberosity with the largest measuring 2.3 cm. These remain unchanged compared the prior study. Soft tissues are unremarkable. No radiopaque foreign bodies. IMPRESSION: 1. No change compared to the prior study. 2. No acute fracture or dislocation within the left shoulder. 3. A few ossific densities adjacent to the greater tuberosity of the humeral head which is likely due to old trauma or less likely calcific tendinitis. 4. Severe osteoarthritis within the glenohumeral joint. Electronically signed by: Vipul Gilmore M.D. 12/12/2016 3:41 PM Dictated Date/Time: 12/12/2016 3:39 PM
[2016-12-12] MEDS ORDERED: LORAZEPAM 0.5 MG TAB SL STA (15:48)
[2016-12-12 16:09] VITALS: O2SAT 96
--- NOTE | 2016-12-12 16:40 | DIAGNOSTIC IMAGING REPORT ---
HEAD CT NONCONTRAST CT DOSE: 773.57 mGy.cm HISTORY: Mental status change Left arm weakness, subjective history of stroke TECHNIQUE: Multiaxial CT images of the head were performed without the use of intravenous contrast. Comparison: 02/03/2016 Findings: The paranasal sinuses and mastoid air cells are clear. Mild chronic small vessel change. Ventricular system is midline. No evidence for acute intracranial hemorrhage. Impression: No acute process. Electronically signed by: Bunny Beck M.D. 12/12/2016 4:38 PM Dictated Date/Time: 12/12/2016 4:36 PM
[2016-12-12] MEDS ORDERED: HYDROCODONE/ACETAMOPHEN 5/325MG TAB PO STA (16:57)
[2016-12-12 17:09] LABS: URINE APPEARANCE CLEAR (CLEAR); URINE BILIRUBIN NEG (NEG); URINE COLOR YELLOW; URINE NITRITE NEG (NEG); URINE PH 6.5 (4.5-7.5); URINE SPECIFIC GRAVITY 1.016 (1.000-1.030); UROBILINOGEN NEG (NEG); ZZUR CULT IF INDIC CLEAN CATCH NO
[2016-12-12 17:10] LABS: MANUAL MICROSCOPIC REQUIRED? NO; REVIEW REQ? NO
[2016-12-12 17:20] LABS: PARTIAL THROMBOPLASTIN RATIO 0.9
[2016-12-12 17:38] LABS: BENZODIAZEPINE, URINE NEG (NEG); COCAINE,URINE POS (NEG); PHENCYCLIDINE, URINE NEG (NEG)
[2016-12-12 17:40] LABS: POINT OF CARE TROPONIN I 0.05 ng/ml (0-0.045)
[2016-12-12] MEDS ORDERED: MoRPHine SULFATE 10 MG/ML CARP/VIAL IM STA (18:47)
[2016-12-12 19:50] LABS: BUN/CREATININE RATIO 16.2 (10-20); CREATININE 0.71 mg/dl (0.60-1.20); MAGNESIUM 2.4 mg/dl (1.8-2.4); POTASSIUM 3.5 mmol/L (3.5-5.1)
[2016-12-12 20:00] LABS: CKMB/CK RATIO 1.1 (0-3.0); THYROID STIMULATING HORMONE 0.461 uIu/ml (0.300-4.500)
[2016-12-12 20:13] LABS: BASO % 0.1 %; BASO ABS # 0.01 K/uL (0-0.2); COMPLETE YES; EOS % 4.5 %; HEMATOCRIT 38.8 % (37-47); IG% 1.1 %; LYMPH % 44.9 %; LYMPH ABS # 3.72 K/uL (1.2-3.4); MEAN CELL VOLUME 92.4 fL (80-100); MEAN CORPUSCULAR HEMOGLOBIN 30.7 pg (25-34); MEAN CORPUSCULAR HGB CONC 33.2 g/dl (32-36); MEAN PLATELET VOLUME 9.6 fL (7.4-10.4); MONO % 7.1 %; NEUT % 42.3 %; PLATELET COUNT 241 K/uL (130-400); WHITE BLOOD COUNT 8.29 K/uL (4.8-10.8)
[2016-12-12 21:20] VITALS: BP 166/89; PULSE 81; O2SAT 95
--- NOTE | 2016-12-12 21:46 | EMERGENCY ROOM VISIT NOTE ---
History First contact with patient: 15:00 Chief Complaint: ARM PAIN Stated Complaint: "STROKE" History of Present Illness The patient is a 51 year old female who presents to the Emergency Room via private vehicle with complaints of "stroke". The patient states that she was recently seen here, and discharged home. She states that since yesterday she has had pain in the left shoulder that radiates to the side of the neck. She states that she fell asleep, and when she awoke today she could not move her left shoulder. She states that when she tries to move the shoulder it is very painful. She points to the generalized left shoulder is location of pain that she rates as a 10/10. She states that in an attempt to alleviate her pain today she has consumed numerous drinks of alcohol, as well as a line of cocaine this morning. This is all subjectively reported. She states that she woke this morning at 7 AM was when she first noticed a popping able to move it. She does feel that her speech is slightly slurred, however this is believed to be after consuming alcohol and cocaine. The patient does feel that her mouth is very dry, and has wheezing. She states she has a history of stroke and heart attack in the past. She does smoke. Review of Systems A complete 10-point Review of Systems was discussed with the patient, with pertinent positives and negatives listed in the History of Present Illness. All remaining Review of Systems questions can be considered negative unless otherwise specified. Past Medical/Surgical History Medical Problems: (1) Acute bronchitis (2) Afib (3) Alcohol abuse (4) Atrial fibrillation (5) Benzodiazepine abuse (6) Cellulitis of leg, right (7) Chronic generalized pain disorder (8) Cocaine abuse (9) copd exac, pna (10) copd exac, pna (11) COPD with acute exacerbation (12) COPD with exacerbation (13) Depression (14) Diabetes (15) Diabetes (16) Edema (17) Fatty liver (18) HTN (hypertension) (19) Influenza B (20) Major depression (21) Neuropathy (22) NSTEMI, initial episode of care (23) Obesity (24) Opiate addiction (25) Ovarian cyst (26) Palpitations (27) past psych meds (28) Past Psych Meds (29) Personality disorder (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 (31) Sleep apnea (32) Suicide attempt Surgical Problems: (1) H/O foot surgery (2) H/O ovarian cystectomy Social History Problems: (1) ETOH abuse Family History Heart disease Social History Smoking Status: Current Every Day Smoker Alcohol Use: occasionally Drug Use: cocaine Marital Status: single Housing Status: lives with family Occupation Status: disabled Current/Historical Medications Scheduled Apixaban (Eliquis), 5 MG PO BID Budesonide/Formoterol Fumarate (Symbicort 160/4.5 Inhaler), 2 PUFFS INH BID Diltiazem Hcl Coated Beads (Diltiazem Hcl Er), 300 MG PO QAM Furosemide (Furosemide), 40 MG PO QAM Insulin Glargine (Lantus), 35 UNITS SQ BID Insulin Lispro (Human) (Humalog), 8 UNITS SQ TIDM Losartan Potassium (Losartan Potassium), 50 MG PO QAM Metoprolol Succinate (Metoprolol Succinate ER), 100 MG PO BID Omeprazole (Prilosec), 20 MG PO QAM Perphenazine (Trilafon), 4 MG PO BID Ranitidine HCl (Ranitidine HCl), 150 MG PO BID Valacyclovir HCl (Valacyclovir HCl), 500 MG PO QAM Scheduled PRN Albuterol Hfa (Ventolin Hfa), 2 PUFFS INH Q6H PRN for SOB/Wheezing Hydrocodone/Acetaminophen 10MG/325MG ([place] 10MG/325MG), 1 TAB PO TID PRN for Pain Ipratropium-Albuterol (Duoneb), 1 TREATMENT INH Q6H PRN for Shortness of Breath Lactulose (Chronulac), 20 GM PO DAILY PRN for Constipation Loratadine (Claritin), 10 MG PO DAILY PRN for PRN Lorazepam (Ativan), 0.5 MG PO BID PRN for Anxiety/Agitation Trazodone Hcl (Trazodone), 150 MG PO HS PRN for Sleep Miscellaneous Medications Prednisone Tab (Prednisone), 10 MG PO Allergies Coded Allergies: Haloperidol (Verified Allergy, Severe, TONGUE SWELLING, 12/07/16) Margarine (Verified Allergy, Severe, RASH, 12/07/16) Pt reported an allergy to butter & margarine (causes swelling), though stated she is not allergic to milk. Citalopram (Unverified Allergy, Unknown, ITCHING, 12/07/16) Penicillins (Verified Allergy, Unknown, UNKNOWN, 12/07/16) PER [facility] IN [facility] Sulfamethoxazole w/Trimethoprim (Verified Allergy, Unknown, RASH, 12/07/16) Morphine (Verified Adverse Reaction, Mild, HEADACHE, 12/07/16) Oxycodone (Verified Adverse Reaction, Unknown, ITCH, 12/07/16) Physical Exam Vital Signs Date Time Temp Pulse Resp B/P (MAP) Pulse Ox O2 Delivery O2 Flow Rate FiO2 12/12/16 21:20 81 16 166/89 95 Room Air 12/12/16 19:07 76 20 162/89 94 Room Air 12/12/16 17:44 70 18 138/75 96 Room Air 12/12/16 16:09 96 Room Air 12/12/16 16:09 75 16 142/78 96 Room Air 12/12/16 14:30 82 18 135/75 96 Room Air 12/12/16 12:40 36.7 90 22 155/82 96 Room Air Physical Exam VITAL SIGNS - Vital signs and nursing notes were reviewed. Patient is afebrile , hypertensive at 155/82, tachycardic and is saturating well on room air 96%. GENERAL -51-year-old female appearing her stated age who is in no acute distress. Communicates well with provider and answers questions appropriately. SKIN - Without rashes. Integument unremarkable. HEAD - NC/AT. EYES - PERRL with EOMI bilaterally. Sclera anicteric. Palpebral conjunctiva pink and moist with no injection noted. EARS - No deformities of external structures noted on gross examination bilaterally. No pain elicited with palpation of the tragus bilaterally. External auditory canals without discharge or otorrhea. Tympanic membranes pearly silva without retraction or bulging. No fluid or purulent material visualized behind the TM. Handle of malleus, umbo, cone of light, pars tensa/ flaccid all easily visualized. NOSE - Midline and without cyanosis. No epistaxis or purulent drainage noted. Septum midline without deviation or septal hematoma noted. MOUTH/OROPHARYNX - Without perioral cyanosis. Buccal mucosa pink and moist and without leukoplakia. Tongue midline with equal elevation of palate bilaterally. No tonsillar hypertrophy, erythema, or exudates noted. Fair dentition noted. NECK - Neck with FROM. Supple to palpation. No lymphadenopathy noted. No nuchal rigidity. No C-spine tenderness. No meningismus. LUNGS - Chest wall symmetric without accessory muscle use, intercostals retractions, or central cyanosis. There is wheezing noted bilaterally. CARDIAC - RRR with S1/S2. No murmur, rubs, or gallops appreciated. EXTREMITIES - No clubbing or peripheral cyanosis. No pretibial edema present she is neurovascularly intact in the extremities. +5/5 strength noted in UE/LE bilaterally. 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 NEUROLOGIC - Cranial nerves II through XII grossly intact. Sensory intact to light touch throughout. PSYCH - A&O Pt is very pleasant and interacts well with examiner. Medical Decision & Procedures ER Provider Diagnostic Interpretation: HEAD CT NONCONTRAST CT DOSE: 773.57 mGy.cm HISTORY: Mental status change Left arm weakness, subjective history of stroke TECHNIQUE: Multiaxial CT images of the head were performed without the use of intravenous contrast. Comparison: 02/03/2016 Findings: The paranasal sinuses and mastoid air cells are clear. Mild chronic small vessel change. Ventricular system is midline. No evidence for acute intracranial hemorrhage. Impression: No acute process. Electronically signed by: Bunny Beck M.D. 12/12/2016 4:38 PM Dictated Date/Time: 12/12/2016 4:36 PM CHEST ONE VIEW PORTABLE CLINICAL HISTORY: Dyspnea dyspnea COMPARISON STUDY: 12/07/2016 FINDINGS: Mild stable cardiomegaly. Increased density left base felt to be secondary to overlap soft tissue artifact. Lungs otherwise are clear. IMPRESSION: Mild stable cardiomegaly. No acute process. Electronically signed by: Bunny Beck M.D. 12/12/2016 3:39 PM Dictated Date/Time: 12/12/2016 3:38 PM LEFT SHOULDER 3 VIEWS HISTORY: Left shoulder pain COMPARISON: Left shoulder 12/07/2016. FINDINGS: Severe osteoarthritis within the left glenohumeral joint, unchanged. The left clavicle is intact. Large marginal osteophytes within the left femoral head. Ossific densities adjacent to the greater tuberosity with the largest measuring 2.3 cm. These remain unchanged compared the prior study. Soft tissues are unremarkable. No radiopaque foreign bodies. IMPRESSION: 1. No change compared to the prior study. 2. No acute fracture or dislocation within the left shoulder. 3. A few ossific densities adjacent to the greater tuberosity of the humeral head which is likely due to old trauma or less likely calcific tendinitis. 4. Severe osteoarthritis within the glenohumeral joint. Electronically signed by: Vipul Gilmore M.D. 12/12/2016 3:41 PM Dictated Date/Time: 12/12/2016 3:39 PM Laboratory Results 12/12/16 19:57 Red Blood Count 4.20, Mean Corpuscular Volume 92.4, Mean Corpuscular Hemoglobin 30.7, Mean Corpuscular Hemoglobin Concent 33.2, Mean Platelet Volume 9.6, Neutrophils (%) (Auto) 42.3, Lymphocytes (%) (Auto) 44.9, Monocytes (%) (Auto) 7.1, Eosinophils (%) (Auto) 4.5, Basophils (%) (Auto) 0.1, Neutrophils # (Auto) 3.51, Lymphocytes # (Auto) 3.72, Monocytes # (Auto) 0.59, Eosinophils # (Auto) 0.37, Basophils # (Auto) 0.01 12/12/16 16:59 Test 12/12/16 15:34 12/12/16 16:49 12/12/16 16:59 12/12/16 17:21 Bedside Glucose 177 mg/dl (70-90) Urine Color YELLOW Urine Appearance CLEAR (CLEAR) Urine pH 6.5 (4.5-7.5) Urine Specific [place] 1.016 (1.000-1.030) Urine Protein NEG (NEG) Urine Glucose (UA) NEG (NEG) Urine Ketones NEG (NEG) Urine Occult Blood NEG (NEG) Urine Nitrite NEG (NEG) Urine Bilirubin NEG (NEG) Urine Urobilinogen NEG (NEG) Urine Leukocyte Esterase NEG (NEG) Urine Opiates Screen POS (NEG) Urine Methadone, Qualitative NEG (NEG) Urine Barbiturates NEG (NEG) Urine Phencyclidine (PCP) Level NEG (NEG) Ur Amphetamine/Methamphetamine NEG (NEG) MDMA (Ecstasy) Screen NEG (NEG) Urine Benzodiazepines Screen NEG (NEG) Urine Cocaine Metabolite POS (NEG) Urine Marijuana (THC) NEG (NEG) Prothrombin Time 11.0 SECONDS (9.0-12.0) Prothromb Time International Ratio 1.0 (0.9-1.1) Activated Partial Thromboplast Time 23.8 SECONDS (21.0-31.0) Partial Thromboplastin Ratio 0.9 Anion Gap 6.0 mmol/L (3-11) Est Creatinine Clear Calc Drug Dose 134.0 ml/min Estimated GFR () 113.5 Estimated GFR (Non- 97.9 BUN/Creatinine Ratio 16.2 (10-20) Calcium Level 8.0 mg/dl (8.5-10.1) Magnesium Level 2.4 mg/dl (1.8-2.4) Total Bilirubin 0.1 mg/dl (0.2-1) Aspartate Amino Transf (AST/SGOT) 20 U/L (15-37) Alanine Aminotransferase (ALT/SGPT) 83 U/L (12-78) Alkaline Phosphatase 150 U/L (45-117) Total Creatine Kinase 130 U/L (26-192) Creatine Kinase MB 1.4 ng/ml (0.5-3.6) Creatine Kinase MB Ratio 1.1 (0-3.0) Total Protein 6.1 gm/dl (6.4-8.2) Albumin 3.1 gm/dl (3.4-5.0) Globulin 3.0 gm/dl (2.5-4.0) Albumin/Globulin Ratio 1.0 (0.9-2) Thyroid Stimulating Hormone (TSH) 0.461 uIu/ml (0.300-4.500) SI-Nth-T-Type Natriuretic Peptide 136 pg/ml (0-900) Test 12/12/16 19:57 12/12/16 20:29 White Blood Count 8.29 K/uL (4.8-10.8) Red Blood Count 4.20 M/uL (4.2-5.4) Hemoglobin 12.9 g/dL (12.0-16.0) Hematocrit 38.8 % (37-47) Mean Corpuscular Volume 92.4 fL (80-100) Mean Corpuscular Hemoglobin 30.7 pg (25-34) Mean Corpuscular Hemoglobin Concent 33.2 g/dl (32-36) Platelet Count 241 K/uL (130-400) Mean Platelet Volume 9.6 fL (7.4-10.4) Neutrophils (%) (Auto) 42.3 % Lymphocytes (%) (Auto) 44.9 % Monocytes (%) (Auto) 7.1 % Eosinophils (%) (Auto) 4.5 % Basophils (%) (Auto) 0.1 % Neutrophils # (Auto) 3.51 K/uL (1.4-6.5) Lymphocytes # (Auto) 3.72 K/uL (1.2-3.4) Monocytes # (Auto) 0.59 K/uL (0.11-0.59) Eosinophils # (Auto) 0.37 K/uL (0-0.5) Basophils # (Auto) 0.01 K/uL (0-0.2) RDW Standard Deviation 48.1 fL (36.4-46.3) RDW Coefficient of Variation 14.2 % (11.5-14.5) Immature Granulocyte % (Auto) 1.1 % Immature Granulocyte # (Auto) 0.09 K/uL (0.00-0.02) Bedside Troponin I 0.040 ng/ml (0-0.045) Medications Administered Medications (Trade) Dose Ordered Sig/Lucien Route Start Time Stop Time Status Last Admin Dose Admin Albuterol/ Ipratropium (Duoneb) 3 ml NOW STAT INH 12/12/16 15:07 12/12/16 15:10 DC 12/12/16 15:07 3 ML Lorazepam (Ativan Tab) 0.5 mg NOW STAT SL 12/12/16 15:48 12/12/16 15:49 DC 12/12/16 16:05 0.5 MG Diphenhydramine HCl (Benadryl Cap) 25 mg NOW STAT PO 12/12/16 16:57 12/12/16 17:01 DC 12/12/16 17:25 25 MG Acetaminophen/ Hydrocodone Bitart ([place] 5/325 Tab) 1 tab NOW STAT PO 12/12/16 16:57 12/12/16 17:01 DC 12/12/16 17:25 1 TAB Morphine Sulfate (MoRPHine SULFATE INJ) 10 mg NOW STAT IM 12/12/16 18:47 12/12/16 18:49 DC 12/12/16 19:04 10 MG Medical Decision Patient was seen and evaluated as above. After obtaining a thorough history and physical examination it was identified that although the patient does have a concern of stroke, I believe it is most likely she is experiencing symptoms of either a frozen shoulder, or calcific tendinitis. The patient has full function of her left upper extremity at the level of the elbow and hand. She is guarding the left shoulder secondary to pain. There is no erythema or edema of this region. No evidence of septic joint. Because the patient did feel that she had some slurred speech earlier today, which I believe is likely secondary to the alcohol consumption and cocaine, a stroke workup will commence. CT of head was obtained after the patient noted that she needed Ativan prior to this as she was very claustrophobic. After discussing benefits versus risks, I did decide to provide her a small amount of sublingual Ativan. CT head is negative for acute process. The patient was noted to have difficulty vascular access therefore delaying any potential IV access. This was attempted numerous times by skilled individuals. We were able to obtain some blood of which noted the slight elevation in troponin. This was pared with her normal sinus rhythm EKG with rate of 83 bpm, prolonged QT. QT was noted to be lengthened on previous EKG. I do not suspect an MRI at this time. Her troponin was noted to be elevated numerous times in the past, and specifically on this visit was found to be 0.05, and on July 18 was found to be 0.06, 0.07, and in February 2016 was 0.06. I suspect that the patient may have chronic elevation of this level, and at this time do not suspect that she is experiencing an [place]. She subjectively did report that she was experiencing some shortness of breath, and there is audible wheezing on her examination. She notes minimal chest pain. Paired with her EKG I do not suspect STEMI. The patient did request something for pain throughout her stay, therefore was given hydrocodone and Benadryl she notes it may make her itch, but requests something for pain and notes she can take this. She is reevaluated and was still experiencing pain. She indicates she could take morphine, and at this time IV access was not able to be established and various attempts were made. She was given 10 mg of morphine intramuscularly without reaction. She was reevaluated and was still feeling pain. Her shoulder x-ray does reveal what I believe to be calcific tendinitis, chest x-ray is unremarkable for acute process. Patient' s CBC reveals no leukocytosis or anemia. Coagulation studies unremarkable. Chem panel reveals carbon dioxide high at 34, glucose of 177, calcium of 8, total bilirubin low at 0.01, ALT high at 83, alkaline phosphatase high at 150, point care troponin elevated at 0.05, total protein low at 6.1, albumin low at 3.1, and TSH at 0.461. Patient's troponin was repeated and was found to return to normal at 0.040. It is important to note that the patient's alkaline phosphatase has been elevated on numerous previous visits. The ALT was also high since December 07 and found to be persistently high through December 08. This value appears to be nearly half of what was found just a few days prior. I believe that this is improving. Overall appears that the patient is stable, and 4 symptomatically she was given duo nebs 2. She is reevaluated and the wheezing sounded to subsided. At this time I believe she is stable for discharge, and the case was thoroughly discussed with my attending. I believe the patient presented today over concern for stroke, and although the patient has difficulty moving the left shoulder I do believe this is secondary to orthopedic being musculoskeletal rather than neurologic. She is to follow-up with her family doctor regarding today's visit, and is certainly invited back to the emergency department for any new/concerning symptoms. She was educated upon management today's findings, educated upon worrisome symptoms which to return, had questions and provided discharge, and was discharged home in good condition. In the evaluation and treatment of this patient, the following differential diagnoses were considered: Concussion, Contrecoup Injury, Brain Tumor, Depression, Encephalitis, Hypothyroidism, Meningitis, CVA, TIA, Migraine, Cluster Headache, [place], Intracranial Abnormality, Intracranial Hemorrhage, Subdural Hematoma, Subarachnoid Hemorrhage, Hydrocephalus, left shoulder calcific tendinitis, rotator cuff injury, among others. Impression Primary Impression: Left shoulder pain Additional Impressions: Elevated troponin Cocaine abuse Departure Information Dispostion Home / Self-Care Condition FAIR Referrals Alonso Zuluaga M.D. (PCP) Patient Instructions My [facility] Additional Instructions You have been treated in the Emergency Department for Shoulder Pain. You have received pain medicine in the emergency department which impairs your ability to operate a vehicle. It is illegal for you to drive after receiving these medicines. Your troponin was elevated today. Please stop the cocaine. Please follow with her family doctor regarding your visit today. EKG was also slightly abnormal. If this is a recent injury (<24 hrs), ice can be applied to the area of pain for the first 3 days to help decrease pain and inflammation. Keep the shoulder brace/sling in place until evaluated by Orthopedics. Continue to perform range of motion exercises several times per day to help prevent the development of a "frozen shoulder". Return to the Emergency Department if your current symptoms worsen despite treatment course outlined above, or if you develop any of the following symptoms : intractable pain despite aforementioned treatment course or new onset of numbness or tingling of the arm. Please return the emergency department with any new/concerning symptoms. Problem Qualifiers
[2016-12-17 11:29] LABS: COCAINE, URINE 9860 NG/ML (CUTOFF=100); COD UR NEGATIVE NG/ML (CUTOFF=50); HYDROCOD UR 2820 NG/ML (CUTOFF=50); HYDROMOR UR NEGATIVE NG/ML (CUTOFF=50); MORPHINE UR NEGATIVE NG/ML (CUTOFF=50); NORHYDROCODONE CONF UR 704 NG/ML (CUTOFF=50); OXYMORPH UR NEGATIVE NG/ML (CUTOFF=50)
[2017-04-06] MEDS ORDERED: METO100T44 PO (00:46)
== END 2016-12-12 21:50 | disposition home or self-care (01) ==
LOC: C.EDB 12:36
DX: M25.512 Pain in left shoulder (principal); R79.89 Other specified abnormal findings of blood chemistry; F14.10 Cocaine abuse, uncomplicated; R06.2 Wheezing; F10.10 Alcohol abuse, uncomplicated; F17.200 Nicotine dependence, unspecified, uncomplicated; F19.10 Other psychoactive substance abuse, uncomplicated; I48.91 Unspecified atrial fibrillation; J44.9 Chronic obstructive pulmonary disease, unspecified; F32.9 Major depressive disorder, single episode, unspecified; I10 Essential (primary) hypertension; E11.21 Type 2 diabetes mellitus with diabetic nephropathy; F11.20 Opioid dependence, uncomplicated; E66.9 Obesity, unspecified; G47.30 Sleep apnea, unspecified; I25.2 Old myocardial infarction; Z86.73 Personal history of transient ischemic attack (TIA), and cerebral infarction without residual deficits; Z79.4 Long term (current) use of insulin

== ENCOUNTER 2016-12-23 22:24 | Emergency (ER) | payer OTHER ==
[~2016-12-23] VITALS: Ht 167.6 cm; Wt 140.6 kg
[~2016-12-23 22:24] MED LIST changes: +HYDR-4079 PO; -HYDR-4383 PO; -INSDGI SC; +INSDGI SQ; +PERP4TAB37 PO; -TRL2 PO
[2016-12-23 22:57] VITALS: BP 127/80; PULSE 99; TEMP 36.8; O2SAT 94; Ht 167.6 cm; Wt 140.6 kg
[2016-12-23 23:04] VITALS: O2SAT 94
[2017-04-06] MEDS ORDERED: METO100T44 PO (00:46)
== END 2016-12-23 23:11 | disposition left against medical advice (07) ==
LOC: EDBD 22:24 → C.EDB 22:26
DX: R07.9 Chest pain, unspecified (principal)

== ENCOUNTER 2017-01-25 15:46 | Inpatient (IN) | payer OTHER ==
[~2017-01-25] VITALS: Ht 167.6 cm; Wt 137.0 kg
[~2017-01-25 15:46] MED LIST changes: +PERP1TAB11 PO; -PERP4TAB37 PO
[2017-01-25] MEDS ORDERED: METHYLPREDNISOLONE 125 MG VIAL IV STA (16:03)
--- NOTE | 2017-01-25 16:07 | EMERGENCY ROOM VISIT NOTE ---
History Report prepared by Domenico: Mathew Gunn Under the Supervision of: Dr. George Wall M.D. First contact with patient: 15:58 Chief Complaint: SHORTNESS OF BREATH Stated Complaint: SOB History of Present Illness The patient is a 51 year old female with a history of COPD and asthma who presents to the Emergency Room via a cab with complaints of worsening shortness of breath that started yesterday. She says that she has been having chest pain as well and a bit of nausea. The patient adds that she has been having a decreased appetite, and has not been able to eat anything. She says that she used her breathing treatment about 10 times between last night and this morning. She states that she almost fell, but did not. The patient denies any vomiting, headaches, abdominal pain, fevers, or worsening neck pain. She also denies any recent suicidal or homicidal ideations. The patient admits that she drank alcohol "the other day". She states that she has not used any recreational drugs recently. The patient adds that she is still taking her Eliquis, and has not missed any doses. She also says that she took her blood pressure medication and heart medication prior to arrival today. She is not currently on any steroids. Source of History: patient Onset: Yesterday Position: other (global - shortness of breath) Timing: worsening Associated Symptoms: + chest pain, + nausea, No LOC, No fevers, No neck pain (any worsening), No vomiting, No abdominal pain Note: Associated symptoms: Decreased appetite. Almost fell prior to arrival. Denies any recent suicidal or homicidal ideations. Review of Systems See HPI for pertinent positives & negatives. A total of 10 systems reviewed and were otherwise negative. Past Medical & Surgical Medical Problems: (1) Acute bronchitis (2) Afib (3) Alcohol abuse (4) Atrial fibrillation (5) Benzodiazepine abuse (6) Cellulitis of leg, right (7) Chronic generalized pain disorder (8) Cocaine abuse (9) copd exac, pna (10) copd exac, pna (11) COPD with acute exacerbation (12) COPD with exacerbation (13) Depression (14) Diabetes (15) Diabetes (16) Edema (17) Fatty liver (18) HTN (hypertension) (19) Influenza B (20) Left foot pain (21) Major depression (22) Neuropathy (23) NSTEMI, initial episode of care (24) Obesity (25) Opiate addiction (26) Ovarian cyst (27) Palpitations (28) past psych meds (29) Past Psych Meds (30) Personality disorder (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 (32) Sleep apnea (33) Suicide attempt Surgical Problems: (1) H/O foot surgery (2) H/O ovarian cystectomy Social History Problems: (1) ETOH abuse Family History Heart disease Social History Smoking Status: Current Every Day Smoker Alcohol Use: occasionally Drug Use: cocaine Marital Status: single Housing Status: lives with family Occupation Status: disabled Current/Historical Medications Scheduled Apixaban (Eliquis), 5 MG PO BID Diltiazem Hcl Coated Beads (Cartia Xt), 300 MG PO DAILY Fluticasone Furoate-Vilanterol (Breo Ellipta), 1 PUFF INH BID Furosemide (Furosemide), 40 MG PO QAM Insulin Glargine (Lantus), 35 UNITS SQ BID Insulin Lispro (Human) (Humalog), 8 UNITS SQ TIDM Losartan Potassium (Losartan Potassium), 50 MG PO QAM Metoprolol Succinate (Metoprolol Succinate ER), 100 MG PO BID Omeprazole (Prilosec), 20 MG PO QAM Perphenazine (Trilafon), 4 MG PO BID Ranitidine HCl (Ranitidine HCl), 150 MG PO BID Valacyclovir HCl (Valacyclovir HCl), 500 MG PO QAM Scheduled PRN Albuterol Hfa (Ventolin Hfa), 2 PUFFS INH Q6H PRN for SOB/Wheezing Hydrocodone/Acetaminophen 10MG/325MG ([place] 10MG/325MG), 1 TAB PO TID PRN for Pain Ipratropium-Albuterol (Duoneb), 1 TREATMENT INH Q6H PRN for Shortness of Breath Lactulose (Chronulac), 20 GM PO DAILY PRN for Constipation Loratadine (Claritin), 10 MG PO DAILY PRN for PRN Trazodone Hcl (Trazodone), 150 MG PO HS PRN for Sleep Allergies Coded Allergies: Haloperidol (Verified Allergy, Severe, TONGUE SWELLING, 12/07/16) Margarine (Verified Allergy, Severe, RASH, 12/07/16) Pt reported an allergy to butter & margarine (causes swelling), though stated she is not allergic to milk. Citalopram (Unverified Allergy, Unknown, ITCHING, 12/07/16) Penicillins (Verified Allergy, Unknown, UNKNOWN, 12/07/16) PER [facility] IN [facility] Sulfamethoxazole w/Trimethoprim (Verified Allergy, Unknown, RASH, 12/07/16) Morphine (Verified Adverse Reaction, Mild, HEADACHE, 12/07/16) Oxycodone (Verified Adverse Reaction, Unknown, ITCH, 12/07/16) Physical Exam Vital Signs Date Time Temp Pulse Resp B/P (MAP) Pulse Ox O2 Delivery O2 Flow Rate FiO2 01/25/17 19:38 157/80 01/25/17 17:31 79 20 172/87 100 01/25/17 17:01 78 23 157/68 99 01/25/17 16:31 84 24 148/78 99 01/25/17 16:26 88 16 100 01/25/17 16:23 95 Room Air 01/25/17 16:21 88 21 95 01/25/17 16:16 92 26 133/80 01/25/17 16:11 99 22 01/25/17 16:09 81 01/25/17 16:05 95 Room Air 01/25/17 16:03 152/95 01/25/17 15:51 37.3 82 24 86/56 95 Room Air Physical Exam GENERAL: Patient is chronically unwell appearing and in mild distress. HEENT: No acute trauma, normocephalic atraumatic, mucous membranes moist, no nasal congestion, no scleral icterus. NECK: No stridor, no adenopathy, no meningismus, trachea is midline. LUNGS:Diffused wheezing, mild dyspnea. HEART: Regular rate and rhythm. No murmurs, rubs, gallops appreciated. ABDOMEN: Soft, nontender, bowel sounds positive, no masses appreciated, no peritonitis. BACK: No midline tenderness, no CVA tenderness EXTREMITIES: Normal motion all extremities, no cyanosis, no edema. NEUROLOGIC: Alert and oriented, no acute motor or sensory deficits, no focal weakness, cranial nerves grossly intact. SKIN: No rash, no jaundice, no diaphoresis. Medical Decision & Procedures ER Provider Diagnostic Interpretation: X ray results are stated below per my interpretation and the radiologist's interpretation. CHEST ONE VIEW PORTABLE CLINICAL HISTORY: Chest Pain COMPARISON STUDY: Chest radiograph December 12, 2016. FINDINGS: No pneumothorax or pleural effusion is identified. Evaluation is compromised given suboptimal penetration related to portable technique and body habitus. No consolidation is identified and there is no evidence of pulmonary edema. Mild cardiomegaly is unchanged. IMPRESSION: No acute cardiopulmonary findings. Electronically signed by: Fabrizio Johnson M.D. 01/25/2017 5:15 PM Dictated Date/Time: 01/25/2017 5:14 PM Laboratory Results 01/25/17 16:12 Red Blood Count 4.16, Mean Corpuscular Volume 93.3, Mean Corpuscular Hemoglobin 31.3, Mean Corpuscular Hemoglobin Concent 33.5, Mean Platelet Volume 10.6, Neutrophils (%) (Auto) 58.5, Lymphocytes (%) (Auto) 27.5, Monocytes (%) (Auto) 10.2, Eosinophils (%) (Auto) 2.6, Basophils (%) (Auto) 0.9, Neutrophils # (Auto ) 3.39, Lymphocytes # (Auto) 1.59, Monocytes # (Auto) 0.59, Eosinophils # (Auto ) 0.15, Basophils # (Auto) 0.05 01/25/17 16:12 Test 01/25/17 16:12 White Blood Count 5.79 K/uL (4.8-10.8) Red Blood Count 4.16 M/uL (4.2-5.4) Hemoglobin 13.0 g/dL (12.0-16.0) Hematocrit 38.8 % (37-47) Mean Corpuscular Volume 93.3 fL (80-100) Mean Corpuscular Hemoglobin 31.3 pg (25-34) Mean Corpuscular Hemoglobin Concent 33.5 g/dl (32-36) Platelet Count 247 K/uL (130-400) Mean Platelet Volume 10.6 fL (7.4-10.4) Neutrophils (%) (Auto) 58.5 % Lymphocytes (%) (Auto) 27.5 % Monocytes (%) (Auto) 10.2 % Eosinophils (%) (Auto) 2.6 % Basophils (%) (Auto) 0.9 % Neutrophils # (Auto) 3.39 K/uL (1.4-6.5) Lymphocytes # (Auto) 1.59 K/uL (1.2-3.4) Monocytes # (Auto) 0.59 K/uL (0.11-0.59) Eosinophils # (Auto) 0.15 K/uL (0-0.5) Basophils # (Auto) 0.05 K/uL (0-0.2) RDW Standard Deviation 49.9 fL (36.4-46.3) RDW Coefficient of Variation 14.7 % (11.5-14.5) Immature Granulocyte % (Auto) 0.3 % Immature Granulocyte # (Auto) 0.02 K/uL (0.00-0.02) Prothrombin Time 11.4 SECONDS (9.0-12.0) Prothromb Time International Ratio 1.1 (0.9-1.1) Anion Gap 8.0 mmol/L (3-11) Est Creatinine Clear Calc Drug Dose 119.0 ml/min Estimated GFR () 99.8 Estimated GFR (Non- 86.1 BUN/Creatinine Ratio 7.6 (10-20) Calcium Level 8.9 mg/dl (8.5-10.1) Total Bilirubin 0.5 mg/dl (0.2-1) Direct Bilirubin 0.1 mg/dl (0-0.2) Aspartate Amino Transf (AST/SGOT) 43 U/L (15-37) Alanine Aminotransferase (ALT/SGPT) 60 U/L (12-78) Alkaline Phosphatase 153 U/L (45-117) Troponin I 0.357 ng/ml (0-0.045) Total Protein 7.3 gm/dl (6.4-8.2) Albumin 3.2 gm/dl (3.4-5.0) Laboratory results as reviewed by me. Medications Administered Medications (Trade) Dose Ordered Sig/Lucien Route Start Time Stop Time Status Last Admin Dose Admin Methylprednisolone Sodium Succinate (Solu-Medrol IV) 125 mg NOW STAT IV 01/25/17 16:03 01/25/17 16:04 DC 01/25/17 16:16 125 MG Albuterol/ Ipratropium (Duoneb) 12 ml ONE ONCE INH 01/25/17 18:30 01/25/17 18:31 DC 01/25/17 19:07 12 ML ECG Indication: SOB/dyspnea Rate (beats per minute): 84 Rhythm: normal sinus Findings: PVC, no acute ischemic change, no ectopy, other (QTC of 479) ED Course 1600: The patient was evaluated in room B8. A complete history and physical exam was performed. 1603: Ordered Solu-Medrol IV 125 mg IV. 1630: The patient asked for pain medication, but via the nurse, the patient will not get any pain medications. 1647: I reevaluated the patient, and she admits to snorting cocaine yesterday. 1828: I reevaluated the patient and she says that her primary issues right now is her breathing. I informed her that I would leave further medications to her hospitalist. The patient verbally expressed understanding and agreement of the treatment plan. The patient will be evaluated for further treatment. 183: Ordered Duoneb 12 ml INH. 1917: I discussed the patient with Dr. Thomas ALCANTARA hospitalist - he will evaluate the patient for further treatment. Medical Decision Differential: Infectious, Reactive Airway Disease, Pneumonia, Pneumothorax, COPD , CHF, ACS, Pulmonary Embolism, MSK, GI, Dissection, amongst other etiologies entertained. 51 yr old chronically unwell female who makes clear she has been taking her medications as prescribed, though admits to cocaine use in last 48 hours. Since with worsening breathing despite continued nebs at home. Diffuse wheezing but with neb just prior to arrival held on neb initially though breathing clearly worsened thus hour neb given. She has bump in her trop from baseline, but EKG looks OK. Trop may be cocaine related. Initial BP low in triage though this could not be replicated and was normal/high throughout rest of stay. CXR clear. Already on blood thinner. I do not feel this is acute PE and with her already on blood thinner and O2 sats OK I do not feel further imaging reasonable. No fevers and I do not feel this is acute infectious advanced practice nurse psychotherapist. With persistent significant wheezing despite hour neb, iv steroids , will need to come in for further monitoring/treatment. Medication Reconcilliation Current Medication List: was personally reviewed by me Blood Pressure Screening Patient's blood pressure: Elevated blood pressure Blood pressure disposition: Elevated BP felt to be situational Consults Time Called: 1909 Consulting Physician: Dr. Thomas ALCANTARA hospitalist Returned Call: 1917 (in person) I discussed the patient with Dr. Thomas ALCANTARA hospitalist - he will evaluate the patient for further treatment. Impression Primary Impression: Acute exacerbation of chronic obstructive pulmonary disease (COPD) Additional Impressions: Cocaine abuse Elevated troponin Scribe Attestation The scribe's documentation has been prepared under my direction and personally reviewed by me in its entirety. I confirm that the note above accurately reflects all work, treatment, procedures, and medical decision making performed by me. Departure Information Dispostion Being Evaluated By Hospitalist Referrals Alonso Zuluaga M.D. (PCP) Patient Instructions My [facility] Problem Qualifiers
[2017-01-25] MEDS ORDERED: FLUT1INH INH (16:27)
[2017-01-25] MEDS ORDERED: DILT300C21 PO (16:28)
--- NOTE | 2017-01-25 17:16 | DIAGNOSTIC IMAGING REPORT ---
CHEST ONE VIEW PORTABLE CLINICAL HISTORY: Chest Pain COMPARISON STUDY: Chest radiograph December 12, 2016. FINDINGS: No pneumothorax or pleural effusion is identified. Evaluation is compromised given suboptimal penetration related to portable technique and body habitus. No consolidation is identified and there is no evidence of pulmonary edema. Mild cardiomegaly is unchanged. IMPRESSION: No acute cardiopulmonary findings. Electronically signed by: Fabrizio Johnson M.D. 01/25/2017 5:15 PM Dictated Date/Time: 01/25/2017 5:14 PM
[2017-01-25 17:19] LABS: BASO % 0.9 %; BASO ABS # 0.05 K/uL (0-0.2); COMPLETE YES; EOS % 2.6 %; HEMATOCRIT 38.8 % (37-47); IG% 0.3 %; LYMPH % 27.5 %; LYMPH ABS # 1.59 K/uL (1.2-3.4); MEAN CELL VOLUME 93.3 fL (80-100); MEAN CORPUSCULAR HEMOGLOBIN 31.3 pg (25-34); MEAN CORPUSCULAR HGB CONC 33.5 g/dl (32-36); MEAN PLATELET VOLUME 10.6 fL (7.4-10.4); MONO % 10.2 %; NEUT % 58.5 %; PLATELET COUNT 247 K/uL (130-400); RED BLOOD COUNT 4.16 M/uL (4.2-5.4); WHITE BLOOD COUNT 5.79 K/uL (4.8-10.8)
[2017-01-25 17:44] LABS: BUN/CREATININE RATIO 7.6 (10-20); CALCIUM 8.9 mg/dl (8.5-10.1); CREATININE 0.79 mg/dl (0.60-1.20); POTASSIUM 3.9 mmol/L (3.5-5.1)
[2017-01-25] MEDS ORDERED: ALBUT/IPRATROP 3MG/0.5MG NEB 3 ML VIAL INH ONE (18:30)
[2017-01-25 20:03] LABS: INR 1.1 (0.9-1.1); PROTHROMBIN TIME (PATIENT) 11.4 SECONDS (9.0-12.0)
[2017-01-25] MEDS ORDERED: ACETAMINOPHEN 325 MG TAB PO PRN (20:15)
[2017-01-25] MEDS ORDERED: NITROGLYCERIN 0.4 MG SL PER TAB CHARGE SL PRN (20:15)
[2017-01-25] MEDS ORDERED: ZOLPIDEM TARTRATE 5 MG TAB PO PRN ×2 (20:15)
[2017-01-25] MEDS ORDERED: ALBUTEROL 0.083% NEBU SOLN 3 ML VIAL INH PRN (20:15)
[2017-01-25] MEDS ORDERED: MAGNESIUM HYDROXIDE SUSP 30 ML UDC PO PRN (20:15)
[2017-01-25] MEDS ORDERED: POLYETHYLENE (MIRALAX) 17 GM PACK PO PRN (20:15)
[2017-01-25] MEDS ORDERED: ALUMINUM/MAGNESIUM/SIMETH (MAALOX MAX) 30 ML UDC PO PRN (20:15)
[2017-01-25] MEDS ORDERED: ONDANSETRON INJ 2 MG/ML 2 ML VIAL IV PRN (20:15)
[2017-01-25] MEDS ORDERED: IPRATROPIUM BROMIDE HFA INHALER INH PRN (20:15)
[2017-01-25] MEDS ORDERED: TRAZODONE HCL 100 MG TAB PO PRN (20:30)
[2017-01-25] MEDS ORDERED: LACTULOSE SYRUP 20 GM/30 ML UDC PO PRN (20:30)
[2017-01-25] MEDS ORDERED: LORATADINE 10 MG TAB PO PRN (20:30)
[2017-01-25 20:44] VITALS: O2SAT 97; BMI 48.9
--- NOTE | 2017-01-25 20:52 | Pharmacy Progress Note ---
Glycemic Control Intl Consult Date of Service Jan 25, 2017. Scope Glycemic Pharmacist consulted by Dr Yeung on 01/25/17 for glycemic control and to write orders per [facility] inpatient glycemic control protocol Objective Weight (Kilograms): 137.400 Accuchecks BSG (last 24hrs): Test 01/25/17 16:12 Random Glucose 278 mg/dl (70-99) Laboratory Data (last 24hrs) Test 01/25/17 16:12 Anion Gap 8.0 mmol/L BUN/Creatinine Ratio 7.6 Blood Urea Nitrogen 6 mg/dl Creatinine 0.79 mg/dl Potassium Level 3.9 mmol/L Sodium Level 138 mmol/L White Blood Count 5.79 K/uL Red Blood Count 4.16 M/uL Hemoglobin 13.0 g/dL Hematocrit 38.8 % Mean Corpuscular Volume 93.3 fL Mean Corpuscular Hemoglobin 31.3 pg Mean Corpuscular Hemoglobin Concent 33.5 g/dl Platelet Count 247 K/uL Mean Platelet Volume 10.6 fL Neutrophils (%) (Auto) 58.5 % Lymphocytes (%) (Auto) 27.5 % Monocytes (%) (Auto) 10.2 % Eosinophils (%) (Auto) 2.6 % Basophils (%) (Auto) 0.9 % Neutrophils # (Auto) 3.39 K/uL Lymphocytes # (Auto) 1.59 K/uL Monocytes # (Auto) 0.59 K/uL Eosinophils # (Auto) 0.15 K/uL Basophils # (Auto) 0.05 K/uL Recent Pertinent Medications Outpatient Anti-diabetic Regimen: * Lantus 35 units BID, Humalog 8 units TID with meals + 2 units for BSG > 200mg/ dl * A1c = 8.9 % 12/09/16 Risk Factors for Insulin Resistance: * Steroids: Solu-medrol - 125mg IV x 1 then 60mg IV Q6H * Infection: Azithromycin po * Diet: Type 2 DM Assessment & Plan ASSESSMENT: * 51 year old type 2 diabetic, uncontrolled on insulin at home, admitted with SOB, history of COPD and asthma. * BSG 278mg/dL at this time, and patient starting IV steroids * Pt known to glycemic service from previous admissions on steroids. I will begin patient on increased dose of home dose of Lantus and CF and CR from admission in November when patient was on steroids. * ADA & AACE recommend a goal blood sugar range 140-180 mg/dl for the majority of critically ill & non-critically ill patients. However, more stringent targets may be selected in individual cases. Will use 110-140mg/dl for patient' s age and to facilitate healing. PLAN FOR INPATIENT GLYCEMIC CONTROL: * Basal insulin with LANTUS 40 units SQ BID * Correctional Insulin with NOVOLOG per scale ACHS or Q6hrs while NPO and overnight at 0000 and 0400 * Goal Range: Low 110 mg/dL - High 140 mg/dL * Correction Factor: 10 mg/dL/unit * Nutritional / Prandial insulin per carb ratio of 1 unit per 4 grams CHO consumed * Please note that the plan above was derived based on current level of insulin resistance and hospital stress. These recommendations are appropriate for inpatient admission only. Plan of care upon discharge will need to be reassessed to avoid potential outpatient hypo/hyperglycemia. Thank you.
[2017-01-25] MEDS ORDERED: PHARMACY GLYCEMIC MGMT CONSULT SCH (20:54)
[2017-01-25] MEDS: ALBUT/IPRATROP 3MG/0.5MG NEB 3 ML VIAL NEB SCH (21:00)
[2017-01-25] MEDS ORDERED: INSULIN GLARGINE SOLOSTAR 100 UNITS/ML 3 ML PEN SQ SCH (21:00)
--- NOTE | 2017-01-25 21:38 | DIAGNOSTIC IMAGING REPORT ---
LEFT FOOT MIN 3 VIEWS ROUTINE CLINICAL HISTORY: History of toe fracture. COMPARISON: None FINDINGS: Alignment of the tarsometatarsal joints is anatomic. There is a mildly displaced comminuted fracture within the middle phalanx of the left second toe. There is mild callus formation. This fracture may be subacute. No additional fractures are identified on this exam. Pes planus deformity is noted. There is moderate mid foot arthritis. IMPRESSION: 1. Comminuted, mildly displaced fracture of the middle phalanx of the left second toe. This fracture is subacute to acute. 2. No additional fractures identified. 3. 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 Electronically signed by: Fabrizio Johnson M.D. 01/25/2017 9:36 PM Dictated Date/Time: 01/25/2017 9:33 PM
[2017-01-25 21:39] VITALS: BP 139/79; PULSE 71; TEMP 36.8; O2SAT 96
[2017-01-25] MEDS ORDERED: METHYLPREDNISOLONE IV 60 MG in SYRINGE 0 ML IV SCH (22:00)
[2017-01-25] MEDS ORDERED: HEPARIN SOD 5000 UNIT/0.5 ML CARP SQ SCH (22:00)
[2017-01-25] MEDS: APIXABAN 2.5 MG TAB PO SCH (22:18)
[2017-01-25] MEDS: RANITIDINE HCL 150 MG TAB PO SCH (22:18)
[2017-01-25] MEDS: PERPHENAZINE 2 MG TAB PO SCH (22:18)
[2017-01-25] MEDS: BUDESONIDE/FORMOTEROL FUMARATE 160/4.5 60 PUFFS/INHALER INH SCH (22:19)
--- NOTE | 2017-01-25 22:31 | History and Physical ---
History & Physical Date & Time of Service: Jan 25, 2017 at 19:50 Chief Complaint: SOB Primary Care Physician: Alonso Zuluaga M.D. History of Present Illness Source: patient 51F with a PMHx of cocaine abuse, COPD, Afib, DM2, SI p/w a one day history of SOB and chest pain. Pt has a long standing history of COPD but has only been taking Albuterol as an inhaler. Pt is not on any preventative COPD medications (according to her). Pt is a current tobacco smoker, denies marijuana use. Pt states she did take cocaine yesterday and has been complaining of chest pain since yesterday. She states that the chest pain is mild and unrelated to exertion. Pt denies having a cough, just difficulty breathing. Pt has been hospitalized for COPD exacerbations in the past and has been on steroids for her COPD. Pt wears 2LNC at night at home. ROS: no palpitations, no fevers, no chills, no nausea, no vomiting,, no dysuria , no rash, denies SI, denies HI. Pt reports around 5-6 loose stools per day, denies any recent Abx usage. Pt states that her left ankle has been hurting her for over a month, she states that she broke two of the toes on her left food. Pt also reports taking her insulin medications appropriately and every day, 48 units of Lantus in the evening and around 12 units of novolog with a sliding scale based on her sugars. She measures her sugars to be in the 200s at home. PMHx: A. fib, COPD, DM2, suicidal ideation Past Medical/Surgical History Medical Problems: (1) Afib Status: Chronic (2) Alcohol abuse Status: Chronic (3) Atrial fibrillation Status: Chronic (4) Benzodiazepine abuse Status: Chronic (5) Chronic generalized pain disorder Status: Chronic (6) Cocaine abuse Status: Chronic (7) Diabetes Status: Chronic (8) Diabetes Status: Chronic (9) Fatty liver Status: Chronic (10) HTN (hypertension) Status: Chronic (11) Major depression Status: Chronic (12) Neuropathy Status: Chronic (13) Obesity Status: Chronic (14) Opiate addiction Status: Chronic (15) Palpitations Status: Chronic (16) Personality disorder Status: Chronic (17) Sciatic nerve disease Status: Chronic (18) Sleep apnea Status: Chronic (19) Suicide attempt Status: Chronic Surgical Problems: (1) H/O foot surgery Status: Resolved (2) H/O ovarian cystectomy Status: Resolved Family History Heart disease Social History Smoking Status: Current Every Day Smoker Smokeless Tobacco Use: No Alcohol Use: none Drug Use: cocaine Marital Status: single Housing status: lives alone Occupational Status: disabled Immunizations History of Influenza Vaccine: Yes Influenza Vaccine Date: Apr 23, 2012 History of Tetanus Vaccine?: Unknown History of Pneumococcal: Yes Pneumococcal Date: Mar 12, 2011 History of Hepatitis B Vaccine: had one shot of the series Multi-Drug Resistant Organisms History of MDRO: No Allergies Coded Allergies: Haloperidol (Verified Allergy, Severe, TONGUE SWELLING, 12/07/16) Margarine (Verified Allergy, Severe, RASH, 12/07/16) Pt reported an allergy to butter & margarine (causes swelling), though stated she is not allergic to milk. Citalopram (Unverified Allergy, Unknown, ITCHING, 12/07/16) Penicillins (Verified Allergy, Unknown, UNKNOWN, 12/07/16) PER [facility] Sulfamethoxazole w/Trimethoprim (Verified Allergy, Unknown, RASH, 12/07/16) Morphine (Verified Adverse Reaction, Mild, HEADACHE, 12/07/16) Oxycodone (Verified Adverse Reaction, Unknown, ITCH, 12/07/16) Home Medications Scheduled Apixaban (Eliquis), 5 MG PO BID Diltiazem Hcl Coated Beads (Cartia Xt), 300 MG PO DAILY Fluticasone Furoate-Vilanterol (Breo Ellipta), 1 PUFF INH BID Furosemide (Furosemide), 40 MG PO QAM Insulin Glargine (Lantus), 35 UNITS SQ BID Insulin Lispro (Human) (Humalog), 8 UNITS SQ TIDM Losartan Potassium (Losartan Potassium), 50 MG PO QAM Metoprolol Succinate (Metoprolol Succinate ER), 100 MG PO BID Omeprazole (Prilosec), 20 MG PO QAM Perphenazine (Trilafon), 4 MG PO BID Ranitidine HCl (Ranitidine HCl), 150 MG PO BID Valacyclovir HCl (Valacyclovir HCl), 500 MG PO QAM Scheduled PRN Albuterol Hfa (Ventolin Hfa), 2 PUFFS INH Q6H PRN for SOB/Wheezing Hydrocodone/Acetaminophen 10MG/325MG (Dameron 10MG/325MG), 1 TAB PO TID PRN for Pain Ipratropium-Albuterol (Duoneb), 1 TREATMENT INH Q6H PRN for Shortness of Breath Lactulose (Chronulac), 20 GM PO DAILY PRN for Constipation Loratadine (Claritin), 10 MG PO DAILY PRN for PRN Trazodone Hcl (Trazodone), 150 MG PO HS PRN for Sleep Review of Systems Constitutional: No fever, No chills, No sweats Eyes: No worsening of vision ENT: No hearing loss Respiratory: + wheezing, + shortness of breath, + dyspnea on exertion, + dyspnea at rest, No cough, No sputum Cardiovascular: + chest pain Abdomen: + pain, + diarrhea, No nausea, No vomiting, No constipation Neurologic: + weakness Psychiatric: No depression symptoms Endocrine: No fatigue, No excessive thirst Physical Exam Vital Signs Date Time Temp Pulse Resp B/P (MAP) Pulse Ox O2 Delivery O2 Flow Rate FiO2 01/25/17 16:26 88 16 100 01/25/17 16:23 95 Room Air 01/25/17 16:21 88 21 95 01/25/17 16:16 92 26 133/80 01/25/17 16:11 99 22 01/25/17 16:09 81 01/25/17 16:05 95 Room Air 01/25/17 16:03 152/95 01/25/17 15:51 37.3 82 24 86/56 95 Room Air General Appearance: WD/WN, + obese Head: normocephalic, atraumatic Eyes: normal inspection, PERRL ENT: normal ENT inspection Neck: supple, no adenopathy Respiratory/Chest: chest non-tender, + wheezing (in anterior and posterior lung landry in all aspects.), + pertinent finding (no crackles, no rales, no rhonchi) Cardiovascular: + irregularly irregular Abdomen/GI: normal bowel sounds, soft, no organomegaly, + pertinent finding ( TTP in LLQ to deep palpation) Back: normal inspection, no CVA tenderness Extremities/Musculoskelatal: no calf tenderness, no pedal edema, + pertinent finding (tenderness over the left metatarsals to flexion and extension, especially the 2ng toe) Neurologic/Psych: alert, normal mood/affect, normal reflexes, oriented x 3 Diagnostics Laboratory Results Results Past 24 Hours Test 01/25/17 16:12 Range/Units White Blood Count 5.79 4.8-10.8 K/uL Red Blood Count 4.16 4.2-5.4 M/uL Hemoglobin 13.0 12.0-16.0 g/dL Hematocrit 38.8 37-47 % Mean Corpuscular Volume 93.3 80-100 fL Mean Corpuscular Hemoglobin 31.3 25-34 pg Mean Corpuscular Hemoglobin Concent 33.5 32-36 g/dl Platelet Count 247 130-400 K/uL Mean Platelet Volume 10.6 7.4-10.4 fL Neutrophils (%) (Auto) 58.5 % Lymphocytes (%) (Auto) 27.5 % Monocytes (%) (Auto) 10.2 % Eosinophils (%) (Auto) 2.6 % Basophils (%) (Auto) 0.9 % Neutrophils # (Auto) 3.39 1.4-6.5 K/uL Lymphocytes # (Auto) 1.59 1.2-3.4 K/uL Monocytes # (Auto) 0.59 0.11-0.59 K/uL Eosinophils # (Auto) 0.15 0-0.5 K/uL Basophils # (Auto) 0.05 0-0.2 K/uL RDW Standard Deviation 49.9 36.4-46.3 fL RDW Coefficient of Variation 14.7 11.5-14.5 % Immature Granulocyte % (Auto) 0.3 % Immature Granulocyte # (Auto) 0.02 0.00-0.02 K/uL Sodium Level 138 136-145 mmol/L Potassium Level 3.9 3.5-5.1 mmol/L Chloride Level 102 98-107 mmol/L Carbon Dioxide Level 28 21-32 mmol/L Anion Gap 8.0 3-11 mmol/L Blood Urea Nitrogen 6 7-18 mg/dl Creatinine 0.79 0.60-1.20 mg/dl Est Creatinine Clear Calc Drug Dose 119.0 ml/min Estimated GFR () 99.8 Estimated GFR (Non- 86.1 BUN/Creatinine Ratio 7.6 10-20 Random Glucose 278 70-99 mg/dl Calcium Level 8.9 8.5-10.1 mg/dl Troponin I 0.357 0-0.045 ng/ml Diagnostic Radiology CHEST ONE VIEW PORTABLE CLINICAL HISTORY: Chest Pain COMPARISON STUDY: Chest radiograph December 12, 2016. FINDINGS: No pneumothorax or pleural effusion is identified. Evaluation is compromised given suboptimal penetration related to portable technique and body habitus. No consolidation is identified and there is no evidence of pulmonary edema. Mild cardiomegaly is unchanged. IMPRESSION: No acute cardiopulmonary findings. LEFT FOOT MIN 3 VIEWS ROUTINE CLINICAL HISTORY: History of toe fracture. COMPARISON: None FINDINGS: Alignment of the tarsometatarsal joints is anatomic. There is a mildly displaced comminuted fracture within the middle phalanx of the left second toe. There is mild callus formation. This fracture may be subacute. No additional fractures are identified on this exam. Pes planus deformity is noted. There is moderate mid foot arthritis. IMPRESSION: 1. Comminuted, mildly displaced fracture of the middle phalanx of the left second toe. This fracture is subacute to acute. 2. No additional fractures identified. 3. 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 EKG Rate (beats per minute): 84 Rhythm: normal sinus Findings: PVC, no acute ischemic change, no ectopy, other (QTC of 479) Impression Assessment and Plan 51F with a PMHx of cocaine abuse, COPD, Afib, DM2, SI p/w a one day history of SOB and chest pain. Neuro: AAOx3, * Pain control: Tylenol 650mg Q4 PRN. * Mood: continue home Trilaton 4mg BID PO CV - Elevated Troponins (acute on chronic) 2/2 to cocaine use. * No ST Segment changes. Pt states CP has resolved. * Pt reports cocaine use yesterday. * Trops have been mildly elevated almost every admission. * Last echo in Aug 01, 2016 was grossly normal. May wish to repeat. * Counselled pt that cocaine was toxic to heart muscles. * Will hold home dose of Metoprolol 100mg BID due to cocaine abuse. * Follow up urine tox screen. * Continue to monitor Trops Q6H * Admit to Tele. A. Fib: * Currently in sinus rhythm, * Diltiazem 300mg dialy (home med). * Metoprolol is held as above, continue to monitor. * Eliquis 5mg daily HTN * Continue home dose of Lasix 40mg QAM. * Continue Losartan 50mg QAM Resp - COPD Exacerbation * Pt has expiratory wheezing in all lung landry. * X-ray results showed no acute process. * Duonebs BID * Albuterol + Atrovel Q4 PRN wheezing. * Symbicort 2puffs BID * Azithromycin 500mg QAM (shown to improve outcomes in COPD) * Solu Medrol 60mg IV Q4 PRN. * O2 per protocol. Renal - Creatinine is WNL. * Urine output is good. GI/ - Pt is eating and drinking well. * GI Proph: Ranitidine 150mg BID * Diabetic Diet * Diarrhea: * Will hold Lactulose * Follow up C. Diff order. Endo - * DM2 - Last HBA1C in November was 8.9, glycemic consult in place, ISS + carb count. * Electrolytes: Na+ 138 and K+ 3.9, Check Mg and Phosphorous in the AM Heme - Hgb 13.0 , Platelets 247 * DVT Proph: On eloquis as above. ID - Afebrile, WBC 5.8. * Herpes Prophylaxis: continue Valtrex 500mg QAM. * Follow up MRSA nasal swab. MSK - * Left toe fracture: displaced and causing pain, consider Ortho referral once primary concerns normalize, can also be done as outpatient. * PT and OT on board. Full Code Attending Addendum: I have physically seen and examined this patient, have supervised the medical residents activities, and agree with the H&P as noted above with the following exceptions: NONE The patient is awake, well-developed and adequately nourished, alert and oriented 3, normocephalic and atraumatic, lying in bed and in no acute distress. HEENT--PERRL, EOMI, mucous membranes and oropharynx dry. Neck--supple, no JVD or bruits, thyroid normal, trachea midline, no adenopathy. Heart--irregularly irregular, no murmurs, rubs or gallops. Lungs--coarse breath sounds with wheezes laterally, no respiratory distress, no accessory muscle use. Abdomen--normal bowel sounds and soft. Tender left lower quadrant. Nondistended , obese. Extremities--no cyanosis, clubbing or edema. There are good distal pulses b/l. Dermatologic--normal skin turgor, normal color, warm and dry, no abnormal lymph nodes, no rash. Neurologic--cranial nerves II through XII grossly intact, motor and sensory examination normal. Rheumatologic--normal range of motion. Psychiatric--normal affect. Assessment and Plan: 1. NSTEMI/recent cocaine use yesterday/atrial fibrillation/hypertension--The patient will be admitted to telemetry for serial cardiac enzymes, cardiac rhythm monitoring and a 2-D echocardiogram with Dopplers. Troponin is 1-1/2 times her baseline elevation. Hold metoprolol tartrate 100 mg by mouth twice a day with recent cocaine use. Check urine drug screen. Continue diltiazem CD 300 mg by mouth daily, losartan 50 mg by mouth every morning, furosemide 40 mg every morning, and Eliquis 5 mg by mouth daily. Level of Care Telemetry Advanced Directives Existing Advance Directive: No Existing Living Will: No Existing Power of Foundry Process Engineer: No Resuscitation Status FULL RESUSCITATION VTE Prophylaxis Risk Level: Moderate Given or contraindicated: SCD's Social Service Consult None Apply Resident Involvement: Resident Care Provided Care Provided: Adult Hospital Medicine
[2017-01-25] MEDS: INSULIN ASPART 100 UNITS/ML 3 ML PEN SQ SCH (22:39)
[2017-01-25] MEDS: METHYLPREDNISOLONE IV 60 MG in SYRINGE 0 ML IV SCH (22:51)
[2017-01-25 23:13] VITALS: BP 175/67; PULSE 60; TEMP 36.3; O2SAT 97
[2017-01-26] VITALS (15 sets, daily range): BP systolic 153–178; BP diastolic 64–96; PULSE 57–88; TEMP 36.6–37.2; O2SAT 93–99
[2017-01-26] MEDS: INSULIN ASPART 100 UNITS/ML 3 ML PEN SQ SCH ×6 (00:20→19:55)
[2017-01-26] MEDS: ALBUT/IPRATROP 3MG/0.5MG NEB 3 ML VIAL NEB SCH ×5 (02:15→19:55)
[2017-01-26 02:43] LABS: CKMB/CK RATIO 0.6 (0-3.0)
[2017-01-26] MEDS: METHYLPREDNISOLONE IV 60 MG in SYRINGE 0 ML IV SCH ×4 (04:05→19:46)
[2017-01-26 08:32] LABS: COMPLETE YES; HEMATOCRIT 39.5 % (37-47); IG% 0.5 %; LYMPH % 14.7 %; LYMPH ABS # 0.87 K/uL (1.2-3.4); MEAN CELL VOLUME 92.3 fL (80-100); MEAN CORPUSCULAR HEMOGLOBIN 31.1 pg (25-34); MEAN CORPUSCULAR HGB CONC 33.7 g/dl (32-36); MEAN PLATELET VOLUME 10.5 fL (7.4-10.4); MONO % 1.9 %; NEUT % 82.9 %; PLATELET COUNT 247 K/uL (130-400); RED BLOOD COUNT 4.28 M/uL (4.2-5.4)
[2017-01-26] MEDS: INSULIN GLARGINE SOLOSTAR 100 UNITS/ML 3 ML PEN SQ SCH ×2 (08:53→19:55)
[2017-01-26] MEDS: BUDESONIDE/FORMOTEROL FUMARATE 160/4.5 60 PUFFS/INHALER INH SCH ×2 (08:55→19:46)
[2017-01-26] MEDS: DILTIAZEM HCL 300 MG CAPCR PO SCH (08:55)
[2017-01-26] MEDS: LOSARTAN POTASSIUM 50 MG TAB PO SCH (08:56)
[2017-01-26] MEDS: FUROSEMIDE 40 MG TAB PO SCH (08:56)
[2017-01-26] MEDS: PERPHENAZINE 2 MG TAB PO SCH ×2 (08:56→19:46)
[2017-01-26] MEDS: APIXABAN 2.5 MG TAB PO SCH ×2 (08:56→19:46)
[2017-01-26] MEDS: RANITIDINE HCL 150 MG TAB PO SCH ×2 (08:57→19:46)
[2017-01-26] MEDS: AZITHROMYCIN 250 MG TAB PO SCH (08:57)
--- NOTE | 2017-01-26 09:08 | Pharmacy Progress Note ---
Glycemic Control Progress Note Date of Service Jan 26, 2017. Scope Glycemic Pharmacist consulted for glycemic control to write orders per [facility] inpatient glycemic control protocol. Objective Accuchecks BSG (last 24hrs): Test 01/25/17 16:12 01/25/17 22:12 01/26/17 00:02 01/26/17 04:01 Random Glucose 278 mg/dl (70-99) Bedside Glucose 399 mg/dl (70-90) 371 mg/dl (70-90) 221 mg/dl (70-90) Test 01/26/17 06:39 01/26/17 08:03 Bedside Glucose 235 mg/dl (70-90) HbA1c: Item Value Date Time Hemoglobin A1c 8.9 % H 12/09/16 0523 Estimated Average Glucose 209 mg/dl 12/09/16 0523 Recent Pertinent Medications The patient is currently receiving: * Basal insulin: Lantus 40 units every 12 hours * Correctional Insulin: Novolog Correction per scale ACHS Goal Range: Low 110 mg/dL - High 140 mg/dL Correction Factor: 10 mg/dL/unit * Prandial insulin: Per carb ratio of 1 unit per 4 grams CHO consumed Outpatient Anti-Diabetic Meds Basal Insulin Bolus Insulin Assessment & Plan ASSESSMENT: * 51 yo T2D F known to our glycemic service from prior admissions, admitted overnight with SOB and initiate on high-dose IV steroids causing severe hyperglycemic. * At baseline, patient is uncontrolled as evidenced by A1c of 8.9% * Based on most recent admission, patient was on Solumedrol 40 mg IV Q8 and required >200 units of insulin per day with inadequate glycemic control * I will utilize this information and initiate a more aggressive regimen this AM * Changes needed to insulin regimen: * AM Fasting BSG = 235 mg/dl. Patient receive ~40 units of SQ Novolog through the night; therefor basal insulin needs increased. * Post-prandial BSGs are not able to be assessed yet due to overnight admission , but I will empirically tighten CR today * Additional notes / comments: * I estimate total daily insulin needs to be at least 250 units/day while on high dose steroids * It will be imperative to titrate down aggressively as steroids taper to avoid hypoglycemia PLAN FOR INPATIENT GLYCEMIC CONTROL: * Basal insulin: Increase * Lantus 60 units SQ BID * Bolus insulin: Tighten * NovoLog per scale ACHS + 0200 check for sustained hyperglycemia * Goal Range: Low 110 mg/dL - High 140 mg/dL * Correction Factor: 10 mg/dL/unit * Nutritional / Prandial insulin per carb ratio of 1 unit per 3 grams CHO consumed * Please note that the plan above was derived based on current level of insulin resistance and hospital stress. These recommendations are appropriate for inpatient admission only. Plan of care upon discharge will need to be reassessed to avoid potential outpatient hypo/hyperglycemia. Thank you.
[2017-01-26 09:10] LABS: BUN/CREATININE RATIO 9.6 (10-20); CALCIUM 9.4 mg/dl (8.5-10.1); CREATININE 0.76 mg/dl (0.60-1.20); PHOSPHORUS 2.9 mg/dl (2.5-4.9); POTASSIUM 3.8 mmol/L (3.5-5.1)
[2017-01-26 09:13] LABS: CHOLESTEROL/HDL RATIO 2.2
[2017-01-26 09:20] LABS: CKMB/CK RATIO 0.6 (0-3.0)
[2017-01-26] MEDS ORDERED: PERFLUTREN LIPID MICROSPHERE (DEFINITY) IV ONE (09:56)
--- NOTE | 2017-01-26 11:01 | Hospitalist Progress Note ---
Hospitalist Progress Note Date of Service Jan 26, 2017. Subjective Pt evaluation today including: conversation w/ patient, physical exam, chart review, lab review Pain: Complains of 8/10 pain to feet, ankles, back, and shoulders. No chest pain PO Intake: Tolerated breakfast without difficulty Voiding: no voiding problems 51 Yo Female admitted for chest pain. Cocaine use 4 days ago per her report. No further chest pain. Chronic pain 7-8/10 to ankles, feet, back, and shoulders. SOB. 1/2 ppd smoker. Denies fever, chills, nausea, vomiting, diarrhea. Small BM this morning. No LE edema or calf pain. Additional Comments: A total of 12 systems was reviewed and is negative other than as listed above in the HPI All Other Systems: Reviewed and Negative Medications Current Inpatient Medications Medications (Trade) Dose Ordered Sig/Lucien Route Start Time Stop Time Status Last Admin Dose Admin Acetaminophen (Tylenol Tab) 650 mg Q4H PRN PO 01/25/17 20:15 02/24/17 20:14 01/25/17 22:36 650 MG Al Hydrox/Mg Hydrox/Simethicone (Maalox Max Susp) 15 ml Q4H PRN PO 01/25/17 20:15 02/24/17 20:14 Magnesium Hydroxide (Milk Of Magnesia Susp) 30 ml Q12H PRN PO 01/25/17 20:15 02/24/17 20:14 Zolpidem Tartrate (Ambien Tab) 5 mg HSZ PRN PO 01/25/17 20:15 02/24/17 20:14 Ondansetron HCl (Zofran Inj) 4 mg Q6H PRN IV 01/25/17 20:15 02/24/17 20:14 Nitroglycerin (Nitrostat Tab) 0.4 mg UD PRN SL 01/25/17 20:15 02/24/17 20:14 Polyethylene (Miralax Powder Packet) 17 gm DAILY PRN PO 01/25/17 20:15 02/24/17 20:14 Azithromycin (Zithromax Tab) 500 mg QAM PO 01/26/17 09:00 02/02/17 08:59 01/26/17 08:57 500 MG Albuterol Sulfate (Ventolin 0.083% 2.5MG/3ML Neb) 2.5 mg Q4H PRN INH 01/25/17 20:15 02/24/17 20:14 Ipratropium [place] (Atrovent Hfa Inhaler) 2 puffs Q4H PRN INH 01/25/17 20:15 02/24/17 20:14 Albuterol/ Ipratropium (Duoneb) 3 ml Q6R NEB 01/25/17 21:00 02/24/17 20:59 01/26/17 14:28 3 ML Budesonide/ Formoterol Fumarate (Symbicort 160/ 4.5 Inh) 2 puffs BID INH 01/25/17 21:00 02/24/17 20:59 01/26/17 08:55 2 PUFFS Diltiazem HCl (Cardizem Cd Cap) 300 mg DAILY PO 01/26/17 09:00 02/25/17 08:59 01/26/17 08:55 300 MG Furosemide (Lasix Tab) 40 mg QAM PO 01/26/17 09:00 02/25/17 08:59 01/26/17 08:56 40 MG Insulin Aspart (novoLOG ASPART) SLIDING SCALE ACHS SQ 01/25/17 21:00 02/24/17 20:59 01/26/17 11:48 41 UNITS Lactulose (Chronulac Syrup) 20 gm DAILY PRN PO 01/25/17 20:30 02/24/17 20:29 Loratadine (Claritin Tab) 10 mg DAILY PRN PO 01/25/17 20:30 02/24/17 20:29 Losartan Potassium (coZAAR TAB) 50 mg QAM PO 01/26/17 09:00 02/25/17 08:59 01/26/17 08:56 50 MG Perphenazine (Trilafon Tab) 4 mg BID PO 01/25/17 21:00 02/24/17 20:59 01/26/17 08:56 4 MG Ranitidine HCl (zANTac TAB) 150 mg BID PO 01/25/17 21:00 02/24/17 20:59 01/26/17 08:57 150 MG Trazodone HCl (Desyrel Tab) 150 mg HS PRN PO 01/25/17 20:30 02/24/17 20:29 Valacyclovir HCl (Valtrex Tab) 500 mg QAM PO 01/26/17 09:00 02/25/17 08:59 01/26/17 08:57 500 MG Apixaban (Eliquis Tab) 5 mg BID PO 01/25/17 21:00 02/24/17 20:59 01/26/17 08:56 5 MG Miscellaneous Information (Consult Glycemic Management Pharmacy) 1 ea UD N/A 01/25/17 20:54 02/24/17 20:53 Methylprednisolone Sodium Succinate 60 mg/Syringe 0.96 ml @ 1.5 mls/min Q6@0400,1000,1600,2200 IV 01/25/17 22:00 02/24/17 21:59 01/26/17 15:52 1.5 MLS/MIN Insulin Glargine (Lantus Solostar Pen) 60 units BID SQ 01/26/17 09:00 02/24/17 20:59 01/26/17 08:53 60 UNITS Insulin Aspart (novoLOG ASPART) SLIDING SCALE 0200 SQ 01/27/17 02:00 02/26/17 01:59 Acetaminophen/ Hydrocodone Bitart ([place] 10/325 Tab) 1 tab TID PRN PO 01/26/17 11:15 02/09/17 11:14 01/26/17 11:47 1 TAB Lorazepam (Ativan Tab) 1 mg Q12 PRN PO 01/26/17 15:45 02/25/17 15:44 Objective Vital Signs Date Time Temp Pulse Resp B/P (MAP) Pulse Ox O2 Delivery O2 Flow Rate FiO2 01/26/17 07:28 58 16 97 Room Air 01/26/17 07:20 36.6 57 20 153/64 (93) 93 Room Air 01/26/17 04:00 98 Room Air 01/26/17 02:42 36.9 59 20 154/73 (100) 99 Nasal Cannula 2.0 01/26/17 02:15 64 16 97 Room Air 01/26/17 00:00 98 Room Air 01/25/17 23:13 36.3 60 21 175/67 (103) 97 Room Air 01/25/17 21:39 36.8 71 21 139/79 (99) 96 Room Air 01/25/17 21:04 75 18 174/90 98 Room Air 01/25/17 20:44 97 Room Air 01/25/17 19:38 157/80 01/25/17 17:31 79 20 172/87 100 01/25/17 17:01 78 23 157/68 99 01/25/17 16:31 84 24 148/78 99 01/25/17 16:26 88 16 100 01/25/17 16:23 95 Room Air 01/25/17 16:21 88 21 95 01/25/17 16:16 92 26 133/80 01/25/17 16:11 99 22 01/25/17 16:09 81 01/25/17 16:05 95 Room Air 01/25/17 16:03 152/95 01/25/17 15:51 37.3 82 24 86/56 95 Room Air Physical Exam Notes: Vital Signs - as noted below Laboratory Data - as noted below Physical Exam: General - Moderate distress with SOB/anxiety Eyes - No icterus, gaze conjugate ENT - Mucosa moist, no lesions or candidiasis Neck - Supple, No JVD Lungs - No rales, or rhonchi. Diffuse bronchospasm Heart - Regular, rate controlled in the 70s. No ectopy or murmur Abdomen - Soft, NT, ND, BS present Extremities - No edema, pedal pulses intact Neuro - A&OX3 Laboratory Results Last 24 Hours Test 01/25/17 16:12 01/25/17 22:12 01/26/17 00:02 01/26/17 02:04 White Blood Count 5.79 K/uL Red Blood Count 4.16 M/uL Hemoglobin 13.0 g/dL Hematocrit 38.8 % Mean Corpuscular Volume 93.3 fL Mean Corpuscular Hemoglobin 31.3 pg Mean Corpuscular Hemoglobin Concent 33.5 g/dl Platelet Count 247 K/uL Mean Platelet Volume 10.6 fL Neutrophils (%) (Auto) 58.5 % Lymphocytes (%) (Auto) 27.5 % Monocytes (%) (Auto) 10.2 % Eosinophils (%) (Auto) 2.6 % Basophils (%) (Auto) 0.9 % Neutrophils # (Auto) 3.39 K/uL Lymphocytes # (Auto) 1.59 K/uL Monocytes # (Auto) 0.59 K/uL Eosinophils # (Auto) 0.15 K/uL Basophils # (Auto) 0.05 K/uL RDW Standard Deviation 49.9 fL RDW Coefficient of Variation 14.7 % Immature Granulocyte % (Auto) 0.3 % Immature Granulocyte # (Auto) 0.02 K/uL Prothrombin Time 11.4 SECONDS Prothromb Time International Ratio 1.1 Sodium Level 138 mmol/L Potassium Level 3.9 mmol/L Chloride Level 102 mmol/L Carbon Dioxide Level 28 mmol/L Anion Gap 8.0 mmol/L Blood Urea Nitrogen 6 mg/dl Creatinine 0.79 mg/dl Est Creatinine Clear Calc Drug Dose 119.0 ml/min Estimated GFR () 99.8 Estimated GFR (Non- 86.1 BUN/Creatinine Ratio 7.6 Random Glucose 278 mg/dl Calcium Level 8.9 mg/dl Total Bilirubin 0.5 mg/dl Direct Bilirubin 0.1 mg/dl Aspartate Amino Transf (AST/SGOT) 43 U/L Alanine Aminotransferase (ALT/SGPT) 60 U/L Alkaline Phosphatase 153 U/L Troponin I 0.357 ng/ml 0.304 ng/ml Total Protein 7.3 gm/dl Albumin 3.2 gm/dl Bedside Glucose 399 mg/dl 371 mg/dl Total Creatine Kinase 366 U/L Creatine Kinase MB 2.3 ng/ml Creatine Kinase MB Ratio 0.6 Test 01/26/17 04:01 01/26/17 04:10 01/26/17 06:39 01/26/17 08:03 Bedside Glucose 221 mg/dl 235 mg/dl White Blood Count 5.90 K/uL Red Blood Count 4.28 M/uL Hemoglobin 13.3 g/dL Hematocrit 39.5 % Mean Corpuscular Volume 92.3 fL Mean Corpuscular Hemoglobin 31.1 pg Mean Corpuscular Hemoglobin Concent 33.7 g/dl Platelet Count 247 K/uL Mean Platelet Volume 10.5 fL Neutrophils (%) (Auto) 82.9 % Lymphocytes (%) (Auto) 14.7 % Monocytes (%) (Auto) 1.9 % Eosinophils (%) (Auto) 0.0 % Basophils (%) (Auto) 0.0 % Neutrophils # (Auto) 4.89 K/uL Lymphocytes # (Auto) 0.87 K/uL Monocytes # (Auto) 0.11 K/uL Eosinophils # (Auto) 0.00 K/uL Basophils # (Auto) 0.00 K/uL RDW Standard Deviation 49.0 fL RDW Coefficient of Variation 14.5 % Immature Granulocyte % (Auto) 0.5 % Immature Granulocyte # (Auto) 0.03 K/uL Sodium Level 136 mmol/L Potassium Level 3.8 mmol/L Chloride Level 98 mmol/L Carbon Dioxide Level 27 mmol/L Anion Gap 11.0 mmol/L Blood Urea Nitrogen 7 mg/dl Creatinine 0.76 mg/dl Est Creatinine Clear Calc Drug Dose 122.9 ml/min Estimated GFR () 104.5 Estimated GFR (Non- 90.2 BUN/Creatinine Ratio 9.6 Random Glucose 286 mg/dl Calcium Level 9.4 mg/dl Phosphorus Level 2.9 mg/dl Magnesium Level 2.0 mg/dl Total Creatine Kinase 319 U/L Creatine Kinase MB 1.8 ng/ml Creatine Kinase MB Ratio 0.6 Troponin I 0.292 ng/ml Triglycerides Level 93 mg/dl Cholesterol Level 195 mg/dl HDL Cholesterol 87 mg/dl LDL Cholesterol, Calculated 89 mg/dl VLDL Cholesterol, Calculated 19 mg/dl Cholesterol/HDL Ratio 2.2 Diagnostic Results CHEST ONE VIEW PORTABLE CLINICAL HISTORY: Chest Pain COMPARISON STUDY: Chest radiograph December 12, 2016. FINDINGS: No pneumothorax or pleural effusion is identified. Evaluation is compromised given suboptimal penetration related to portable technique and body habitus. No consolidation is identified and there is no evidence of pulmonary edema. Mild cardiomegaly is unchanged. IMPRESSION: No acute cardiopulmonary findings. Electronically signed by: Fabrizio Johnson M.D. 01/25/2017 5:15 PM LEFT FOOT MIN 3 VIEWS ROUTINE CLINICAL HISTORY: History of toe fracture. COMPARISON: None FINDINGS: Alignment of the tarsometatarsal joints is anatomic. There is a mildly displaced comminuted fracture within the middle phalanx of the left second toe. There is mild callus formation. This fracture may be subacute. No additional fractures are identified on this exam. Pes planus deformity is noted. There is moderate mid foot arthritis. IMPRESSION: 1. Comminuted, mildly displaced fracture of the middle phalanx of the left second toe. This fracture is subacute to acute. 2. No additional fractures identified. 3. 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 Electronically signed by: Fabrizio Johnson M.D. 01/25/2017 9:36 PM Assessment and Plan CHEST PAIN Slight bump in troponin consistent to previous admissions Troponin continues to trend downward No change in echocardiogram from previous study 07/2016 EKG with no significant T wave changes No arrhythmias on telemetry Chronic hx of cocaine use No further chest pain this morning Continue to monitor on telemetry SOB Hx tobacco abuse Supplemental O2 at home at 2 L/min Nebulizer at home Diffuse wheezes on exam - order Duoneb tx Maintain SaO2 between 88-92% SUBSTANCE ABUSE Counselled on abstaining form tobacco and illicit drug abuse Has cut down on tobacco use to 1/2 ppd Has used cocaine less frequently CHRONIC PAIN/ANXIETY [place] 10/325 mg TID at home - will resume this morning Will defer to benzos to Dr. Jain for anxiety DM Continue Trilafon Lantus SSI HTN Metoprolol held for cocaine use Cozaar started Consider Labetolol if needed ATRIAL FIBRILLATION HX NSR on telemetry Continue Eliquis Beta brandon held for known use of cocaine while we trend troponins COPD Empirically started on steroids and Azithromycin Titrate steroids starting tomorrow based on improvement of symptoms Continue Duonebs Oxygenation adequate with home dose of supplemental O2 Titrate SaO2 between 88-92% Continued [facility] stay due to: other Discharge planning: uncertain
[2017-01-26] MEDS: HYDROCODONE/ACETAMI 10/325 TAB PO PRN ×2 (11:47→21:22)
[2017-01-26 15:32] LABS: CKMB/CK RATIO 0.7 (0-3.0)
[2017-01-26] MEDS ORDERED: LORAZEPAM 1 MG TAB PO STA (15:42)
--- NOTE | 2017-01-26 16:15 | ECHOCARDIOGRAM REPORT ---
*NOTICE TO RECEIVING [employer] This information is strictly Confidential and protected under [place] law. [place] law prohibits you from making any further disclosure of this information unless further disclosure is expressly permitted by the written consent of the person to whom it pertains or is authorized by law. A general authorization for the release of medical or other information is not sufficient for this purpose. Hospital accepts no responsibility if the information is made available to any other person, INCLUDING THE PATIENT. Interpretation Summary * Name: TRINA LEMUS Study Date: 01/26/2017 09:21 AM BP: 154/73 mmHg * Patient Location: C.2T\S\E220\S\1 HR: 62 * : 1965 (M/d/yyyy) Gender: Female Height: 66 in * Age: 51 yrs Ethnicity: AA Weight: 302 lb * Ordering Physician: Bunny Yeung * Referring Physician: Self, Referred * Performed By: Derrick Keys RDCS * * Reason For Study: Chest pain * BSA: 2.4 m2 * -- Conclusions -- * The study was technically difficult. * There is borderline concentric left ventricular hypertrophy. * Left ventricular systolic function is normal. * The left atrium is mildly dilated. * Compared to a study from 07/2016, there is no difference Procedure Details * A complete two-dimensional transthoracic echocardiogram was performed (2D, M-mode, Doppler and color flow Doppler). * The study was technically difficult. * The study was technically difficult, but visualization was adequate with the administration of Definity ultrasound contrast. * A contrast injection of Definity was performed to improve assessment of LV function. * Contrast was injected into an intravenous site in the left arm. * One vial of Definity ultrasound contrast was diluted in normal saline to a total volume of 10 ml. A total of '3' ml of solution was administered during imaging. * Lot # [id number] of Definity utilized for procedure. * Expiration date [id number]. * The attending nurse who injected the contrast agent was AMA White. Left Ventricle * The left ventricle is grossly normal size. * There is borderline concentric left ventricular hypertrophy. * Left ventricular systolic function is normal. * Ejection Fraction = 55-60%. Right Ventricle * The right ventricle is normal in size and function. Atria * The left atrium is mildly dilated. * Right atrial size is normal. Mitral Valve * The mitral valve is not well visualized. * Significant mitral regurgitation is absent. Tricuspid Valve * The tricuspid valve is not well visualized. * There is trace tricuspid regurgitation. Aortic Valve * The aortic valve is not well visualized. * No hemodynamically significant valvular aortic stenosis. * There is no significant aortic regurgitation. Great Vessels * The aortic root is normal size. Pericardium/Pleural * There is no pericardial effusion. MMode 2D Measurements and Calculations IVSd 1.2 cm IVSs 1.6 cm LVIDd 5.1 cm LVIDs 3.8 cm LVPWd 1.2 cm LVPWs 1.6 cm IVS/LVPW 0.96 FS 27.0 % EDV(Teich) 126.0 ml ESV(Teich) 60.1 ml EF(Teich) 52.3 % EDV(cubed) 135.7 ml ESV(cubed) 52.8 ml EF(cubed) 61.1 % % IVS thick 41.7 % % LVPW thick 33.2 % LV mass(C)d 239.9 grams LV mass(C)dI 100.7 grams/m\S\2 LV mass(C)s 242.9 grams LV mass(C)sI 101.9 grams/m\S\2 SV(Teich) 65.9 ml SI(Teich) 27.7 ml/m\S\2 SV(cubed) 82.9 ml SI(cubed) 34.8 ml/m\S\2 Ao root diam 3.2 cm Ao root area 7.9 cm\S\2 ACS 2.0 cm LA dimension 4.7 cm asc Aorta Diam 3.3 cm LA/Ao 1.5 LVOT diam 2.3 cm LVOT area 4.3 cm\S\2 LVAd ap4 45.1 cm\S\2 LVLd ap4 8.4 cm EDV(MOD-sp4) 197.0 ml LVAs ap4 26.9 cm\S\2 LVLs ap4 6.7 cm ESV(MOD-sp4) 86.8 ml EF(MOD-sp4) 55.9 % LVAd ap2 36.7 cm\S\2 LVLd ap2 8.4 cm EDV(MOD-sp2) 129.0 ml LVAs ap2 21.9 cm\S\2 LVLs ap2 7.0 cm ESV(MOD-sp2) 56.8 ml EF(MOD-sp2) 56.0 % SV(MOD-sp4) 110.2 ml SI(MOD-sp4) 46.2 ml/m\S\2 SV(MOD-sp2) 72.2 ml SI(MOD-sp2) 30.3 ml/m\S\2 Doppler Measurements and Calculations MV E max елена 110.2 cm/sec MV A max елена 60.0 cm/sec MV E/A 1.8 MV dec time 0.18 sec Ao V2 max 172.4 cm/sec Ao max PG 11.9 mmHg Ao max PG (full) 6.9 mmHg LILLIAN(V,A) 2.8 cm\S\2 LILLIAN(V,D) 2.8 cm\S\2 LV V1 max PG 5.0 mmHg LV V1 max 112.0 cm/sec PA V2 max 157.5 cm/sec PA max PG 9.9 mmHg PA acc slope 768.5 cm/sec\S\2 PA acc time 0.13 sec PA pr(Accel) 18.8 mmHg
[2017-01-27] VITALS (12 sets, daily range): BP systolic 149–188; BP diastolic 78–97; PULSE 71–103; TEMP 36.5–37; O2SAT 93–98; Ht 167.6 cm; Wt 137.0 kg
[2017-01-27] MEDS: LORAZEPAM 1 MG TAB PO PRN ×2 (00:34→12:24)
[2017-01-27] MEDS: ALBUT/IPRATROP 3MG/0.5MG NEB 3 ML VIAL NEB SCH ×4 (01:41→20:03)
[2017-01-27] MEDS ORDERED: INSULIN ASPART 100 UNITS/ML 3 ML PEN SQ SCH (02:00)
[2017-01-27] MEDS: METHYLPREDNISOLONE IV 60 MG in SYRINGE 0 ML IV SCH ×2 (04:06→08:51)
[2017-01-27 06:13] LABS: BASO % 0.1 %; BASO ABS # 0.01 K/uL (0-0.2); COMPLETE YES; HEMATOCRIT 37.8 % (37-47); IG% 0.4 %; LYMPH % 5.2 %; LYMPH ABS # 0.77 K/uL (1.2-3.4); MEAN CELL VOLUME 92.6 fL (80-100); MEAN CORPUSCULAR HEMOGLOBIN 30.9 pg (25-34); MEAN CORPUSCULAR HGB CONC 33.3 g/dl (32-36); MEAN PLATELET VOLUME 10.5 fL (7.4-10.4); MONO % 3.7 %; NEUT % 90.6 %; PLATELET COUNT 237 K/uL (130-400); RED BLOOD COUNT 4.08 M/uL (4.2-5.4); WHITE BLOOD COUNT 14.75 K/uL (4.8-10.8)
[2017-01-27 06:47] LABS: CREATININE 0.86 mg/dl (0.60-1.20)
[2017-01-27 06:48] LABS: BUN/CREATININE RATIO 14.9 (10-20); CALCIUM 9.4 mg/dl (8.5-10.1); MAGNESIUM 2.1 mg/dl (1.8-2.4); PHOSPHORUS 3.2 mg/dl (2.5-4.9)
[2017-01-27] MEDS: HYDROCODONE/ACETAMI 10/325 TAB PO PRN ×2 (08:48→20:21)
[2017-01-27] MEDS: AZITHROMYCIN 250 MG TAB PO SCH (08:49)
[2017-01-27] MEDS: DILTIAZEM HCL 300 MG CAPCR PO SCH (08:49)
[2017-01-27] MEDS: BUDESONIDE/FORMOTEROL FUMARATE 160/4.5 60 PUFFS/INHALER INH SCH ×2 (08:49→21:17)
[2017-01-27] MEDS: RANITIDINE HCL 150 MG TAB PO SCH ×2 (08:49→21:20)
[2017-01-27] MEDS: APIXABAN 2.5 MG TAB PO SCH ×2 (08:50→21:17)
[2017-01-27] MEDS: LOSARTAN POTASSIUM 50 MG TAB PO SCH (08:50)
[2017-01-27] MEDS: FUROSEMIDE 40 MG TAB PO SCH (08:50)
[2017-01-27] MEDS: PERPHENAZINE 2 MG TAB PO SCH ×2 (08:50→21:17)
[2017-01-27] MEDS: INSULIN ASPART 100 UNITS/ML 3 ML PEN SQ SCH ×4 (08:55→21:19)
[2017-01-27] MEDS: INSULIN GLARGINE SOLOSTAR 100 UNITS/ML 3 ML PEN SQ SCH ×2 (08:56→17:13)
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
--- NOTE | 2017-01-27 10:41 | Pharmacy Progress Note ---
Glycemic Control Progress Note Date of Service Jan 27, 2017. Scope Glycemic Pharmacist consulted for glycemic control to write orders per [facility] inpatient glycemic control protocol. Objective Accuchecks BSG (last 24hrs): Test 01/26/17 11:07 01/26/17 16:32 01/26/17 19:47 01/27/17 01:59 Bedside Glucose 346 mg/dl (70-90) 256 mg/dl (70-90) 252 mg/dl (70-90) 301 mg/dl (70-90) Test 01/27/17 05:55 01/27/17 06:45 Random Glucose 260 mg/dl (70-99) Bedside Glucose 254 mg/dl (70-90) HbA1c: Item Value Date Time Hemoglobin A1c 8.9 % H 12/09/16 0523 Recent Pertinent Medications The patient is currently receiving: * Basal insulin: Lantus 60 units every 12 hours * Correctional Insulin: Novolog Correction per scale ACHS Goal Range: Low 110 mg/dL - High 140 mg/dL Correction Factor: 8 mg/dL/unit * Prandial insulin: Per carb ratio of 1 unit per 2.5 grams CHO consumed Outpatient Anti-Diabetic Meds Basal Insulin & Bolus Insulin --> total daily outpatient dosing is ~ 94 units/ day Assessment & Plan ASSESSMENT: * See progress note from 01/26/17 for more background info, in short: * Pt receiving SQ basal bolus insulin regimen for hyperglycemia secondary to baseline DM (outpatient regimen is SQ basal bolus),stress/infection, high dose IV RTC steroids * Patient is currently receiving an average of 266 units of insulin per day * 120 units of basal insulin * 146 units of prandial/correctional insulin * BSGs ranging 221 - 346 mg/dl over the past 24hrs * Changes needed to insulin regimen: * AM Fasting BSG = 254 mg/dl. This well above goal range for patient based on inpatient targets and co-morbidities. Therefore Basal insulin needs increased. Increasing basal insulin necessary to help cover RTC high dose IV steroid dosing * Post-prandial BSGs are elevated/BSGs rise throughout the day therefore need to tighten CF/CR. Steroids have their most profound effect on post-prandial BSGs therefore aggressive CF/CR warranted. * Total daily dose = 266 units. Expect total daily dose needed with current steroid dosing is closer to 300 units/day. Will increase/tighten regimen accordingly. Pt has required 250+ units/day per previous admissions on lower dosing of steroids. PLAN FOR INPATIENT GLYCEMIC CONTROL: * Basal insulin: increase dosing * Lantus 75 units SQ BID * Bolus insulin: tighten parameters * NovoLog per scale ACHS or Q6hrs while NPO * Goal Range: Low 110 mg/dL - High 140 mg/dL * Correction Factor: 5 mg/dL/unit * Nutritional / Prandial insulin per carb ratio of 1 unit per 2 grams CHO consumed * Taper insulin with each step down in steroid dosing. * Please note that the plan above was derived based on current level of insulin resistance and hospital stress. These recommendations are appropriate for inpatient admission only. Plan of care upon discharge will need to be reassessed to avoid potential outpatient hypo/hyperglycemia. Thank you.
[2017-01-27] MEDS ORDERED: INSULIN REGULAR 10 UNITS in SYRINGE 9.9 ML IV SCH (12:00)
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
[2017-01-27] MEDS: METHYLPREDNISOLONE IV 40 MG in SYRINGE 0 ML IV SCH (18:01)
[2017-01-27] MEDS ORDERED: INSULIN GLARGINE SC SCH (21:00)
[2017-01-27] MEDS: METOPROLOL TARTRATE 50 MG TAB PO SCH (21:17)
[2017-01-28] VITALS (7 sets, daily range): BP systolic 142–166; BP diastolic 68–81; PULSE 61–95; TEMP 36.4–36.9; O2SAT 96–100
[2017-01-28] MEDS: METHYLPREDNISOLONE IV 40 MG in SYRINGE 0 ML IV SCH ×3 (00:11→13:41)
[2017-01-28] MEDS: INSULIN ASPART 100 UNITS/ML 3 ML PEN SQ SCH ×4 (00:13→12:00)
[2017-01-28] MEDS: ALBUT/IPRATROP 3MG/0.5MG NEB 3 ML VIAL NEB SCH ×3 (02:25→14:12)
[2017-01-28] MEDS ORDERED: COUGH DROP (SUGAR FREE) LOZ 24 LOZ/1 BOX ONE (05:08)
[2017-01-28] MEDS ORDERED: COUGH DROP (SUGAR FREE) LOZ 24 LOZ/1 BOX PO PRN (05:30)
[2017-01-28] MEDS: HYDROCODONE/ACETAMI 10/325 TAB PO PRN (06:06)
[2017-01-28 06:58] LABS: BASO % 0.1 %; BASO ABS # 0.01 K/uL (0-0.2); COMPLETE YES; HEMATOCRIT 38.9 % (37-47); LYMPH % 5.1 %; MEAN CELL VOLUME 93.3 fL (80-100); MEAN CORPUSCULAR HEMOGLOBIN 30.2 pg (25-34); MEAN CORPUSCULAR HGB CONC 32.4 g/dl (32-36); MEAN PLATELET VOLUME 10.7 fL (7.4-10.4); MONO % 3.2 %; NEUT % 90.6 %; PLATELET COUNT 248 K/uL (130-400); RED BLOOD COUNT 4.17 M/uL (4.2-5.4); WHITE BLOOD COUNT 17.81 K/uL (4.8-10.8)
[2017-01-28 07:35] LABS: BUN/CREATININE RATIO 18.6 (10-20); CALCIUM 8.9 mg/dl (8.5-10.1); CREATININE 0.77 mg/dl (0.60-1.20); MAGNESIUM 2.5 mg/dl (1.8-2.4); POTASSIUM 4.2 mmol/L (3.5-5.1)
[2017-01-28 07:42] LABS: ALB/GLOB RATIO 0.7 (0.9-2); PHOSPHORUS 3.8 mg/dl (2.5-4.9)
[2017-01-28] MEDS: LOSARTAN POTASSIUM 50 MG TAB PO SCH (08:54)
[2017-01-28] MEDS: FUROSEMIDE 40 MG TAB PO SCH (08:54)
[2017-01-28] MEDS: APIXABAN 2.5 MG TAB PO SCH (08:55)
[2017-01-28] MEDS: AZITHROMYCIN 250 MG TAB PO SCH (08:55)
[2017-01-28] MEDS: RANITIDINE HCL 150 MG TAB PO SCH (08:55)
[2017-01-28] MEDS: METOPROLOL TARTRATE 50 MG TAB PO SCH (08:55)
[2017-01-28] MEDS: DILTIAZEM HCL 300 MG CAPCR PO SCH (08:55)
[2017-01-28] MEDS: PERPHENAZINE 2 MG TAB PO SCH (08:56)
[2017-01-28] MEDS: BUDESONIDE/FORMOTEROL FUMARATE 160/4.5 60 PUFFS/INHALER INH SCH (08:57)
[2017-01-28] MEDS ORDERED: INSULIN GLARGINE SC SCH ×2 (09:00→21:00)
[2017-01-28] MEDS: LORAZEPAM 1 MG TAB PO PRN (09:04)
--- NOTE | 2017-01-28 09:41 | Pharmacy Progress Note ---
Glycemic Control Progress Note Date of Service Jan 28, 2017. Scope Glycemic Pharmacist consulted for glycemic control to write orders per [facility] inpatient glycemic control protocol. Objective Accuchecks BSG (last 24hrs): Test 01/27/17 11:28 01/27/17 16:11 01/27/17 20:07 01/28/17 00:08 Bedside Glucose 303 mg/dl (70-90) 144 mg/dl (70-90) 262 mg/dl (70-90) 236 mg/dl (70-90) Test 01/28/17 03:40 01/28/17 06:22 01/28/17 06:36 Bedside Glucose 162 mg/dl (70-90) 189 mg/dl (70-90) Random Glucose 183 mg/dl (70-99) HbA1c: 8.9% on 12/09/16 Recent Pertinent Medications The patient is currently receiving: * Basal insulin: Lantus 75 units every 12 hours * Correctional Insulin: Novolog Correction per scale ACHS Goal Range: Low 110 mg/dL - High 140 mg/dL Correction Factor: 5 mg/dL/unit * Prandial insulin: Per carb ratio of 1 unit per 2 grams CHO consumed Outpatient Anti-Diabetic Meds Basal Insulin + Bolus Insulin --> total daily outpatient dose = ~ 94units/day Assessment & Plan ASSESSMENT: * See progress note from 01/26/17 for more background info, in short: * Pt receiving SQ basal bolus insulin regimen for hyperglycemia secondary to baseline DM (outpatient regimen is SQ basal bolus),stress/infection, high dose IV RTC steroids * Patient is currently receiving ~ 400 units of insulin over the past 24hrs * 150 units of basal insulin * 250 units of prandial/correctional insulin * BSGs ranging 144 - 303 mg/dl over the past 24hrs * Changes needed to insulin regimen: * Steroid dosing decreased from Solumedrol 60mg IV Qhrs to Solumedrol 40mg IV Q8hrs. This should yield a mild improvement in glycemic control. Current insulin dosing is well above outpatient dosing. Will start to taper. * AM Fasting BSG = 189 mg/dl. This still slightly above goal range for patient based on inpatient targets and co-morbidities. However, will start to taper in accordance with decreasing steroids. * Post-prandial BSGs: No change to CF/CR at this time. Steroids have their most profound effect on post-prandial BSGs therefore aggressive CF/CR warranted. * Total daily dose = ~400 units. Expect total daily dose needed with current steroid dosing is closer to 250 units/day. Will decrease regimen accordingly. Pt has required 250+ units/day per previous admissions while on current steroid dosing regimen. PLAN FOR INPATIENT GLYCEMIC CONTROL: * Basal insulin: decrease dosing * Lantus 60 units SQ BID * Bolus insulin: no change at this time * NovoLog per scale ACHS or Q6hrs while NPO * Goal Range: Low 110 mg/dL - High 140 mg/dL * Correction Factor: 5 mg/dL/unit * Nutritional / Prandial insulin per carb ratio of 1 unit per 2 grams CHO consumed * Continue to taper insulin with each step down in steroid dosing. * Please note that the plan above was derived based on current level of insulin resistance and hospital stress. These recommendations are appropriate for inpatient admission only. Plan of care upon discharge will need to be reassessed to avoid potential outpatient hypo/hyperglycemia. Thank you.
[2017-01-28] MEDS ORDERED: HYZ/50125 PO (15:32)
--- NOTE | 2017-01-28 15:36 | Cardiology Consultation ---
Cardiology Consultation Date of Consultation: Jan 28, 2017. Requesting Physician: Db Reason for Consultation: Chest pain Pt evaluation today including: conversation w/ patient, physical exam, chart review, lab review, review of studies, conversation w/ attending History of Present Illness The patient is a 51-year-old woman with history of hypertension and chest pain who experienced 2-3 days of progressively worsening shortness of breath. As a progressive patient also began to experience symptoms of chest discomfort which were distinct from prior episodes of chest pain. She describes this as a fairly severe sensation primarily associated with deep inspiration. There is not appear to be any radiation of the chest discomfort. It did not involve the neck or arm. The patient eventually presented [facility] for symptoms of dyspnea. She is found to be markedly short of breath and treated for bronchospasm. He will to admission the patient had used a home nebulizer multiple times without significant effect. Patient stated that around the time she developed her symptoms she had recently ingested cocaine. This resulted in a sense of tachycardia and overall tremulousness. Her symptoms of chest discomfort also started around that time. Upon arrival the patient was treated with steroids and bronchodilators. She had resolution of her breathing difficulty and chest discomfort. At the time of this interview she is ambulatory and denies significant breathing problems. She denied any sense of palpitations currently she denied any dizziness or lightheadedness. She has has some pain in her left small toe. She also reports some discoloration of the left small toe. Past Medical/Surgical History Bronchitis Arthritis Atrial fibrillation paroxysmal COPD Tobacco abuse Diabetes mellitus Substance abuse Hidradenitis suppurativa History of pulmonary embolus Hypertension Obstructive sleep apnea Schizoaffective disorder Urinary incontinence Surgical history Skin lesion excision Ovarian cystectomy Family History Heart disease Social History Smoking Status: Current Every Day Smoker History of Alcohol Use: Yes (Reports as "sometimes", then reports 3-4 shots per day) Currently experiencing some social issues with respect to moving out of her apartment. Review of Systems Constitutional: + see HPI Respiratory: No see HPI, No cough, No sputum, No wheezing, No shortness of breath, No dyspnea on exertion, No dyspnea at rest, No hemoptysis, No problem reported Cardiac: No see HPI, No chest pain, No orthopnea, No PND, No edema, No claudication, No palpitations, No problem reported Abdomen: + see HPI Female : + see HPI Neurologic: + see HPI Heme: + see HPI Endo: + see HPI Skin: + see HPI History of present illness All Other Systems: Reviewed and Negative Allergies Coded Allergies: Haloperidol (Verified Allergy, Severe, TONGUE SWELLING, 12/07/16) Margarine (Verified Allergy, Severe, RASH, 12/07/16) Pt reported an allergy to butter & margarine (causes swelling), though stated she is not allergic to milk. Citalopram (Unverified Allergy, Unknown, ITCHING, 12/07/16) Penicillins (Verified Allergy, Unknown, UNKNOWN, 12/07/16) PER CHRISSY IN U Sulfamethoxazole w/Trimethoprim (Verified Allergy, Unknown, RASH, 12/07/16) Morphine (Verified Adverse Reaction, Mild, HEADACHE, 12/07/16) Oxycodone (Verified Adverse Reaction, Unknown, ITCH, 12/07/16) Medications Current Inpatient Medications Medications (Trade) Dose Ordered Sig/Lucien Route Start Time Stop Time Status Last Admin Dose Admin Acetaminophen (Tylenol Tab) 650 mg Q4H PRN PO 01/25/17 20:15 02/24/17 20:14 01/25/17 22:36 650 MG Al Hydrox/Mg Hydrox/Simethicone (Maalox Max Susp) 15 ml Q4H PRN PO 01/25/17 20:15 02/24/17 20:14 Magnesium Hydroxide (Milk Of Magnesia Susp) 30 ml Q12H PRN PO 01/25/17 20:15 02/24/17 20:14 Zolpidem Tartrate (Ambien Tab) 5 mg HSZ PRN PO 01/25/17 20:15 02/24/17 20:14 Ondansetron HCl (Zofran Inj) 4 mg Q6H PRN IV 01/25/17 20:15 02/24/17 20:14 Nitroglycerin (Nitrostat Tab) 0.4 mg UD PRN SL 01/25/17 20:15 02/24/17 20:14 Polyethylene (Miralax Powder Packet) 17 gm DAILY PRN PO 01/25/17 20:15 02/24/17 20:14 Azithromycin (Zithromax Tab) 500 mg QAM PO 01/26/17 09:00 02/02/17 08:59 01/28/17 08:55 500 MG Albuterol Sulfate (Ventolin 0.083% 2.5MG/3ML Neb) 2.5 mg Q4H PRN INH 01/25/17 20:15 02/24/17 20:14 Ipratropium [place] (Atrovent Hfa Inhaler) 2 puffs Q4H PRN INH 01/25/17 20:15 02/24/17 20:14 Albuterol/ Ipratropium (Duoneb) 3 ml Q6R NEB 01/25/17 21:00 02/24/17 20:59 01/28/17 14:12 3 ML Budesonide/ Formoterol Fumarate (Symbicort 160/ 4.5 Inh) 2 puffs BID INH 01/25/17 21:00 02/24/17 20:59 01/28/17 08:57 2 PUFFS Diltiazem HCl (Cardizem Cd Cap) 300 mg DAILY PO 01/26/17 09:00 02/25/17 08:59 01/28/17 08:55 300 MG Furosemide (Lasix Tab) 40 mg QAM PO 01/26/17 09:00 02/25/17 08:59 01/28/17 08:54 40 MG Insulin Aspart (novoLOG ASPART) SLIDING SCALE ACHS SQ 01/25/17 21:00 02/24/17 20:59 01/28/17 12:00 54 UNITS Lactulose (Chronulac Syrup) 20 gm DAILY PRN PO 01/25/17 20:30 02/24/17 20:29 01/28/17 05:59 20 GM Loratadine (Claritin Tab) 10 mg DAILY PRN PO 01/25/17 20:30 02/24/17 20:29 Losartan Potassium (coZAAR TAB) 50 mg QAM PO 01/26/17 09:00 02/25/17 08:59 01/28/17 08:54 50 MG Perphenazine (Trilafon Tab) 4 mg BID PO 01/25/17 21:00 02/24/17 20:59 01/28/17 08:56 4 MG Ranitidine HCl (zANTac TAB) 150 mg BID PO 01/25/17 21:00 02/24/17 20:59 01/28/17 08:55 150 MG Trazodone HCl (Desyrel Tab) 150 mg HS PRN PO 01/25/17 20:30 02/24/17 20:29 01/26/17 19:46 150 MG Valacyclovir HCl (Valtrex Tab) 500 mg QAM PO 01/26/17 09:00 02/25/17 08:59 01/28/17 08:54 500 MG Apixaban (Eliquis Tab) 5 mg BID PO 01/25/17 21:00 02/24/17 20:59 01/28/17 08:55 5 MG Miscellaneous Information (Consult Glycemic Management Pharmacy) 1 ea UD N/A 01/25/17 20:54 02/24/17 20:53 Acetaminophen/ Hydrocodone Bitart (Prince 10/325 Tab) 1 tab TID PRN PO 01/26/17 11:15 02/09/17 11:14 01/28/17 06:06 1 TAB Lorazepam (Ativan Tab) 1 mg Q12 PRN PO 01/26/17 15:45 02/25/17 15:44 01/28/17 09:04 1 MG Methylprednisolone Sodium Succinate 40 mg/Syringe 0.64 ml @ 1.5 mls/min Q8 IV 01/27/17 17:00 02/26/17 16:59 01/28/17 13:41 1.5 MLS/MIN Metoprolol Tartrate (Lopressor Tab) 50 mg BID PO 01/27/17 21:00 02/26/17 20:59 01/28/17 08:55 50 MG Menthol (Nice Hermelinda) 1 hermelinda PRN PRN PO 01/28/17 05:30 02/27/17 05:29 Insulin Aspart (novoLOG ASPART) SLIDING SCALE TODAY@0000,0400 SQ 01/29/17 00:00 01/29/17 04:01 Insulin Glargine (Lantus Vial) see protocol text BID SC 01/28/17 21:00 02/27/17 20:59 Physical Exam Vital Signs Past 12 Hours Date Time Temp Pulse Resp B/P (MAP) Pulse Ox O2 Delivery O2 Flow Rate FiO2 01/28/17 15:13 36.4 65 18 161/81 (107) 100 Room Air 01/28/17 14:13 91 18 96 Room Air 01/28/17 12:02 36.6 76 16 142/68 (92) 98 01/28/17 12:00 Room Air 01/28/17 08:25 36.9 88 18 154/70 (98) 96 01/28/17 08:00 Room Air 01/28/17 07:18 95 16 96 Room Air 01/28/17 04:00 Room Air 01/28/17 03:38 36.8 61 20 166/68 (100) 97 Nasal Cannula 2.0 She is alert and oriented x3. Mood affect appear normal. She answered all questions appropriately. Obese HEENT: Sclerae are anicteric. Pupils are equal and reactive to light and accommodation. Extraocular movements were intact. Neuro: Cranial nerves intact Neck: Examination of the submandibular region did not reveal any significant lymphadenopathy. Carotids are palpable bilaterally and free of bruits on auscultation. There was no evidence of jugular venous distention. The thyroid was not enlarged. Lungs: Lungs are clear to auscultation bilaterally. There are no rales wheezes or rhonchi. She has normal respiratory effort without use of accessory muscles. There is normal pulmonary excursion. Cardiac: The rhythm was regular. S1 and S2 were normal. There are no murmurs on examination. The PMI was not markedly displaced on palpation. Abdomen: The abdomen was soft and nontender. Extremities: Patient has bilateral radial pulses that are equal in intensity. There is no evidence cyanosis or clubbing. There was no evidence of significant peripheral edema bilaterally just mild. Skin: There are no rashes noted on examination today. Data Laboratory Results: Last 24 Hours Test 01/27/17 16:11 01/27/17 20:07 01/28/17 00:08 01/28/17 03:40 Bedside Glucose 144 mg/dl 262 mg/dl 236 mg/dl 162 mg/dl Test 01/28/17 06:22 01/28/17 06:36 01/28/17 11:16 White Blood Count 17.81 K/uL Red Blood Count 4.17 M/uL Hemoglobin 12.6 g/dL Hematocrit 38.9 % Mean Corpuscular Volume 93.3 fL Mean Corpuscular Hemoglobin 30.2 pg Mean Corpuscular Hemoglobin Concent 32.4 g/dl Platelet Count 248 K/uL Mean Platelet Volume 10.7 fL Neutrophils (%) (Auto) 90.6 % Lymphocytes (%) (Auto) 5.1 % Monocytes (%) (Auto) 3.2 % Eosinophils (%) (Auto) 0.0 % Basophils (%) (Auto) 0.1 % Neutrophils # (Auto) 16.15 K/uL Lymphocytes # (Auto) 0.90 K/uL Monocytes # (Auto) 0.57 K/uL Eosinophils # (Auto) 0.00 K/uL Basophils # (Auto) 0.01 K/uL RDW Standard Deviation 49.4 fL RDW Coefficient of Variation 14.6 % Immature Granulocyte % (Auto) 1.0 % Immature Granulocyte # (Auto) 0.18 K/uL Sodium Level 137 mmol/L Potassium Level 4.2 mmol/L Chloride Level 101 mmol/L Carbon Dioxide Level 31 mmol/L Anion Gap 5.0 mmol/L Blood Urea Nitrogen 14 mg/dl Creatinine 0.77 mg/dl Est Creatinine Clear Calc Drug Dose 121.9 ml/min Estimated GFR () 102.9 Estimated GFR (Non- 88.8 BUN/Creatinine Ratio 18.6 Random Glucose 183 mg/dl Calcium Level 8.9 mg/dl Phosphorus Level 3.8 mg/dl Magnesium Level 2.5 mg/dl Total Bilirubin 0.3 mg/dl Aspartate Amino Transf (AST/SGOT) 18 U/L Alanine Aminotransferase (ALT/SGPT) 50 U/L Alkaline Phosphatase 110 U/L Troponin I 0.147 ng/ml Total Protein 6.8 gm/dl Albumin 2.9 gm/dl Globulin 3.9 gm/dl Albumin/Globulin Ratio 0.7 Bedside Glucose 189 mg/dl 292 mg/dl Imaging: Chest x-ray obtained at the time of admission did not demonstrate any evidence of pulmonary edema. Normal x-ray foot x-ray did demonstrate evidence of toe fracture involving the left foot EKG: Normal sinus rhythm without acute ST or T-wave changes Telemetry reviewed: Occasional PVCs otherwise no erythema Echocardiogram obtained during this admission demonstrated preserved LV systolic function without notable valve abnormalities. Cardiac catheterization performed October 2014. No obstructive coronary disease. Assessment & Plan 1. Chest pain: Patient had several days worth of chest discomfort. This is most likely associated with her significant dyspnea. She does report using cocaine around the time of symptom onset. She certainly could have had some chest discomfort related to her cocaine use. She had mildly elevated cardiac biomarkers which are consistent with all troponin levels obtained over the past year. He does not appear to be any acute rise or fall in her cardiac biomarkers suggestive of an acute coronary syndrome. There were no significant EKG changes. Given the duration of her symptoms, I would have expected more marked elevations in her biomarkers should this has been an acute coronary event or significant cardiac ischemia. She had marked dyspnea at the time of admission and I believe this is the most likely cause which she described as chest discomfort. She does report that her current episode was slightly different in character than other episodes of chest pain that she has experienced previously. I would not advocate any additional ischemic evaluation at this point, especially given her normal coronary arteries in 2015. 2. Cocaine use: The patient describes cocaine use approximately every 10 days. She was on chronic beta brandon therapy, possibly for mildly reduced LV function. She also appears that an element of hypertension. However, given her fairly regular cocaine use and lack of interest in stopping cocaine use who seem reasonable to discontinue her beta-brandon at this time. This would reduce her chances of significant vasospasm due to unopposed alpha stimulation. 3. Tobacco abuse: Patient was counseled regarding the need to stop tobacco. 4. Hypertension: Patient continues to have elevated blood pressures here in the hospital. This is likely made worse by intermittent cocaine use. If we discontinue her beta-brandon she may require more aggressive medical therapy for her hypertension. 5. Atrial fibrillation: Patient does have history of paroxysmal atrial fibrillation. No recent events to suggest recurrence. She had a Holter monitor performed in September 2016 which did not demonstrate any episodes of atrial fibrillation. She has been maintained on systemic anticoagulation and claims to be compliant with her Eliquis.
--- NOTE | 2017-01-28 15:39 | Discharge Instructions ---
Discharge Instructions Date of Service Jan 28, 2017. Admission Reason for Admission: Copd With Exacerbation, Elevated Troponin Discharge Discharge Diagnosis / Problem: chest pain , ELIZABETH Discharge Goals Goal(s): Decrease discomfort Activity Recommendations Activity Limitations: per Instructions/Follow-up section (avoid driving and using machines) Lifting Limitations: no more than 5 pounds Exercise/Sports Limitations: gradually increase as tolerated May Resume Sexual Activity: when tolerated Shower/Bathe: may shower/bathe in 3 days Driving or Machine Use: resume 3 days after discharge . Instructions / Follow-Up Instructions / Follow-Up follow up with primary care physician in one week, need sleep study abstain from all narcotics, cocaine and alcohol follow up with addiction psychologist / [facility] Current Hospital Diet Patient's current hospital diet: AHA Diet (Heart Healthy), Diabetes Type 2 Diet Discharge Diet Recommended Diet: AHA Diet (Heart Healthy), Diabetes Type 2 Diet Fluid Restriction: 1800 ml (7 cups) Pending Studies Studies pending at discharge: no Laboratory Results Hemoglobin A1c Test 12/09/16 05:23 Range/Units Estimated Average Glucose 209 mg/dl Hemoglobin A1c 8.9 H 4.5-5.6 % Lipid Panel Test 01/26/17 08:03 Range/Units Triglycerides Level 93 0-150 mg/dl Cholesterol Level 195 0-200 mg/dl HDL Cholesterol 87 mg/dl Cholesterol/HDL Ratio 2.2 LDL Cholesterol, Calculated 89 mg/dl Medical Emergencies . Who to Call and When: Medical Emergencies: If at any time you feel your situation is an emergency, please call 911 immediately. . Non-Emergent Contact Non-Emergency issues call your: Primary Care Provider, Room Service Server Call Non-Emergent contact if: temperature is above 101, your pain is worsening , your pain is unusual for you . . "Provider Documentation" section prepared by Roxie Soto. . VTE Core Measure Inpt VTE Proph given/why not?: Other Anticoagulation, SCD's
[2017-01-28] MEDS ORDERED: HYDR-4079 PO (15:55)
[2017-01-28] MEDS ORDERED: LACT10SO17 PO (15:55)
[2017-01-28] MEDS ORDERED: IPRASOL4 NEB (16:17)
--- NOTE | 2017-01-28 21:03 | Discharge Summary ---
Discharge Summary Date of Service Jan 28, 2017. Discharge Summary Admission Date: Jan 25, 2017 at 20:20 Discharge Date: Jan 28, 2017 Discharge Disposition: Home Principal Diagnosis: Chest pain Problems/Secondary Diagnoses: (1) Cocaine abuse Status: Chronic \ obesity alcohol abuse ELIZABETH not compliant with BIPAP Immunizations: Have You Had Influenza Vaccine: Yes Influenza Vaccine Date: Apr 23, 2012 History of Tetanus Vaccine?: Unknown History of Pneumococcal: Yes Pneumococcal Date: Mar 12, 2011 History of Hepatitis B Vaccine: had one shot of the series Medication Reconciliation New Medications: Hctz/Losartan (Hyzaar 12.5MG/50MG) Tab 1 TAB PO DAILY for 30 Days, #30 TAB 1 Refill Ipratropium-Albuterol (Duoneb) 3 Ml Nebu 3 ML NEB Q6R PRN for SOB/Wheezing for 30 Days, #50 VIAL 3 Refills Continued Medications: Albuterol Hfa (Ventolin Hfa) 200 Puffs/42255 Mcg Aers 2 PUFFS INH Q6H PRN for SOB/Wheezing Apixaban (Eliquis) 5 Mg Tab 5 MG PO BID Diltiazem Hcl Coated Beads (Cartia Xt) 300 Mg Cap 300 MG PO DAILY Fluticasone Furoate-Vilanterol (Breo Ellipta) 1 Inh Inh 1 PUFF INH BID Furosemide (Furosemide) 40 Mg Tab 40 MG PO QAM Hydrocodone/Acetaminophen 10MG/325MG ([place] 10MG/325MG) Tab 1 TAB PO TID PRN for Pain for 5 Days, #10 TAB (This prescription has been renewed) PRN PAIN Insulin Glargine (Lantus) 100 Unit/Ml Inj 35 UNITS SQ BID Insulin Lispro (Human) (Humalog) 100 Unit/Ml Inj 8 UNITS SQ TIDM IF BLOOD SUGAR IS ABOVE 200 TAKE AN ADDITONAL 2 UNITS Ipratropium-Albuterol (Duoneb) 3 Ml Nebu 1 TREATMENT INH Q6H PRN for Shortness of Breath Lactulose (Chronulac) 10 Gm/15 Ml Syrp 20 GM PO DAILY PRN for Constipation for 30 Days, #500 ML (This prescription has been renewed) Loratadine (Claritin) 10 Mg Tab 10 MG PO DAILY PRN for PRN, TAB Omeprazole (Prilosec) 20 Mg Cap 20 MG PO QAM Perphenazine (Trilafon) 4 Mg Tab 4 MG PO BID, TAB Ranitidine HCl (Ranitidine HCl) 150 Mg Tab 150 MG PO BID Trazodone Hcl (Trazodone) 100 Mg Tab 150 MG PO HS PRN for Sleep, TAB Valacyclovir HCl (Valacyclovir HCl) 500 Mg Tab 500 MG PO QAM Discontinued Medications: Losartan Potassium (Losartan Potassium) 50 Mg Tab 50 MG PO QAM Metoprolol Succinate (Metoprolol Succinate ER) 100 Mg Tabcr 100 MG PO BID Discharge Exam Review of Systems: Constitutional: No fever, No chills, No sweats, No weight loss, No weakness , No fatigue, No problem reported Eyes: No worsening of vision, No eye pain, No redness, No discharge, No diplopia, No problem reported ENT: No hearing loss, No unusual epistaxis, No nasal symptoms, No sore throat, No tinnitus, No dental problems, No trouble swallowing, No problem reported Respiratory: No cough, No sputum, No wheezing, No shortness of breath, No dyspnea on exertion, No dyspnea at rest, No hemoptysis, No problem reported Cardiovascular: No chest pain, No orthopnea, No PND, No edema, No claudication, No palpitations, No problem reported Abdomen: No pain, No nausea, No vomiting, No diarrhea, No constipation, No GI bleeding, No problem reported Musculoskeletal: No joint pain, No muscle pain, No swelling, No calf pain, No problem reported Genitourinary - Female: No dysuria, No urinary frequency, No urinary urgency , No urinary incontinence, No urinary retention, No hematuria, No dysmenorrhea, No menorrhagia, No metrorrhagia, No rash, No vaginal bleeding, No vaginal discharge, No vaginal itching, No vulvodynia, No , No problem reported Neurologic: No memory loss, No paralysis, No weakness, No numbness/tingling , No vertigo, No balance problems, No problem reported Psychiatric: No depression symptoms, No anhedonism, No anxiety, No insomnia , No substance abuse, No problem reported Endocrine: No fatigue, No excessive thirst, No excessive urination, No problem reported Hematologic / Lymphatic: No abnormal bleeding/bruising, No clotting problems , No swollen lymph nodes, No night sweats, No problem reported Integumentary: No rash, No itch, No new/changing skin lesions, No color change, No bleeding, No problem reported Physical Exam: General Appearance: WD/WN, no apparent distress Eyes: normal inspection, PERRL ENT: normal ENT inspection, hearing grossly normal Neck: supple Respiratory/Chest: chest non-tender, lungs clear, normal breath sounds, no respiratory distress, no accessory muscle use Cardiovascular: regular rate, rhythm, no edema, no gallop, no JVD, no murmur Abdomen / GI: normal bowel sounds, non tender, soft, no organomegaly, no pulsatile mass, normal rectal exam, occult blood negative Extremities: normal inspection, no calf tenderness, normal capillary refill , no pedal edema Neurologic/Psychiatric: preparator II-XII nml as tested, no motor/sensory deficits , alert, normal mood/affect, normal reflexes, oriented x 3 Skin: normal color, warm/dry, no rash Hospital Course 51F with a PMHx of cocaine abuse, COPD, Afib, DM2, SI p/w a one day history of SOB and chest pain. Slight bump in troponin consistent to previous admissions Troponin is trended downward, education analyst cleared for discharge echocardiogram is unchanged from 07/2016 EKG with nonspecific changes SOB improved Psych consult recommended to continue Triflon and to avoid ativan continued [place] 10/325 mg TID continued SSI and Lantus , HgbA1C is 8.9 for HTN , Metoprolol held for cocaine use, she was given losartan / HTCZ for ATRIAL FIBRILLATION Continued on Eliquis she was discharged today to follow up with her PCP and do sleep study as an out patient her pain management clinic was closed (I left a message for them), I gave her a prescription with 10 tablets of Whitestone till she see them Total Time Spent: Greater than 30 minutes This includes examination of the patient, discharge planning, medication reconciliation, and communication with other providers. Discharge Instructions Please refer to the electronic Patient Visit Report (Discharge Instructions) for additional information.
[2017-01-29] MEDS ORDERED: INSULIN ASPART 100 UNITS/ML 3 ML PEN SQ SCH
[2017-02-08 02:38] LABS: URCREATININE 47.2 MG/DL (>/= 20)
== END 2017-01-28 16:54 | disposition home or self-care (01) | DRG 918 ==
LOC: C.EDB 15:48 → C.2T 20:20 → ENRESERV 20:29
PROVIDERS: ADMIT Hospitalist; ATTEND Internal Medicine
DX: T40.5X1A Poisoning by cocaine, accidental (unintentional), initial encounter (principal); F14.120 Cocaine abuse with intoxication, uncomplicated; J44.1 Chronic obstructive pulmonary disease with (acute) exacerbation; R07.89 Other chest pain; F19.10 Other psychoactive substance abuse, uncomplicated; E11.9 Type 2 diabetes mellitus without complications; F10.10 Alcohol abuse, uncomplicated; I10 Essential (primary) hypertension; K76.0 Fatty (change of) liver, not elsewhere classified; I25.2 Old myocardial infarction; E66.9 Obesity, unspecified; F41.9 Anxiety disorder, unspecified; F17.200 Nicotine dependence, unspecified, uncomplicated; I48.2 Chronic atrial fibrillation; G47.33 Obstructive sleep apnea (adult) (pediatric); Z91.19 Patient's noncompliance with other medical treatment and regimen; I48.0 Paroxysmal atrial fibrillation; F25.9 Schizoaffective disorder, unspecified; Z82.49 Family history of ischemic heart disease and other diseases of the circulatory system; Z88.0 Allergy status to penicillin; Z88.2 Allergy status to sulfonamides; Z79.4 Long term (current) use of insulin; Y92.009 Unspecified place in unspecified non-institutional (private) residence as the place of occurrence of the external cause

== ENCOUNTER 2017-02-25 14:54 | Emergency (ER) | payer OTHER ==
[~2017-02-25] VITALS: Ht 167.6 cm; Wt 139.8 kg
[~2017-02-25 14:54] MED LIST changes: -CZR50 PO; -DILT300C PO; +DILT300C21 PO; +FLUT1INH INH; +HYZ/50125 PO; +IPRASOL4 NEB; -LORA-741 PO; -PRED10TA PO; -SYMIN160 INH; -TPRSR/100 PO
[2017-02-25 15:06] VITALS: TEMP 36.8; Ht 167.6 cm; Wt 139.8 kg
--- NOTE | 2017-02-25 16:45 | EMERGENCY ROOM VISIT NOTE ---
History Report prepared by Domenico: Karan Mejias Under the Supervision of: Dr. Itz Navarro M.D. First contact with patient: 16:35 Chief Complaint: CHEST PAIN Stated Complaint: CHEST AND LEFT ARM PAIN, SOB Nursing Triage Summary: Patient c/o chest pain from middle of chest to neck, shoulder and arm. Patient states pain began last night, is less sharp than is was. Intermittent. Pain in neck has been there for about a month. SOB Diaphoresis per patient. History of Present Illness The patient is a 51 year old female who presents to the Emergency Room with complaints of constant, tingling to her left neck and arm beginning a couple weeks ago. The patient states that her tingling starts in her left chest and left neck and radiates through her left arm to her hand. She reports that she was paralyzed and has had nurses coming to her house. The patient notes that she has started to experience shortness of breath and chest pain as well. She reports that she has already had 4 breathing treatments today. She states that she has been taking hydrocodone for her pain, and the last dose she took was this morning. The patient reports that she is going to see and orthopedic next month for her arm. Source of History: patient Onset: couple weeks ago Position: neck (left), arm (left) Quality: tingling Timing: constant Associated Symptoms: + chest pain, + SOB Note: Associated symptoms: left chest tingling Review of Systems See HPI for pertinent positives & negatives. A total of 10 systems reviewed and were otherwise negative. Past Medical & Surgical Medical Problems: (1) Acute bronchitis (2) Afib (3) Alcohol abuse (4) Atrial fibrillation (5) Benzodiazepine abuse (6) Cellulitis of leg, right (7) Chronic generalized pain disorder (8) Cocaine abuse (9) copd exac, pna (10) copd exac, pna (11) COPD with acute exacerbation (12) COPD with exacerbation (13) Depression (14) Diabetes (15) Diabetes (16) Edema (17) Fatty liver (18) HTN (hypertension) (19) Influenza B (20) Left foot pain (21) Major depression (22) Neuropathy (23) NSTEMI, initial episode of care (24) Obesity (25) Opiate addiction (26) Ovarian cyst (27) Palpitations (28) past psych meds (29) Past Psych Meds (30) Personality disorder (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 (32) Sleep apnea (33) Suicide attempt Surgical Problems: (1) H/O foot surgery (2) H/O ovarian cystectomy Social History Problems: (1) ETOH abuse Family History Heart disease Social History Smoking Status: Current Every Day Smoker Alcohol Use: occasionally Drug Use: cocaine Marital Status: single Housing Status: lives with family Occupation Status: disabled Current/Historical Medications Scheduled Apixaban (Eliquis), 5 MG PO BID Diltiazem Hcl Coated Beads (Cartia Xt), 300 MG PO DAILY Furosemide (Furosemide), 40 MG PO QAM Hctz/Losartan (Hyzaar 12.5MG/50MG), 1 TAB PO DAILY Insulin Glargine (Lantus), 50 UNITS SQ HS Insulin Lispro (Human) (Humalog), 8 UNITS SQ TIDM Omeprazole (Prilosec), 20 MG PO QAM Perphenazine (Trilafon), 4 MG PO BID Prednisone (Prednisone Tab), 20 MG PO DAILY Ranitidine HCl (Ranitidine HCl), 150 MG PO BID Tizanidine (Tizanidine HCl), 4 MG PO TID Valacyclovir HCl (Valacyclovir HCl), 500 MG PO QAM Scheduled PRN Albuterol Hfa (Ventolin Hfa), 2 PUFFS INH Q6H PRN for SOB/Wheezing Hydrocodone/Acetaminophen 10MG/325MG ([place] 10MG/325MG), 1 TAB PO TID PRN for Pain Ipratropium-Albuterol (Duoneb), 1 TREATMENT INH Q6H PRN for Shortness of Breath Ipratropium-Albuterol (Duoneb), 3 ML NEB Q6R PRN for SOB/Wheezing Lactulose (Chronulac), 20 GM PO DAILY PRN for Constipation Loratadine (Claritin), 10 MG PO DAILY PRN for PRN Meloxicam (Meloxicam), 15 MG PO DAILY PRN for Pain Trazodone Hcl (Trazodone), 150 MG PO HS PRN for Sleep Allergies Coded Allergies: Haloperidol (Verified Allergy, Severe, TONGUE SWELLING, 02/25/17) Margarine (Verified Allergy, Severe, RASH, 02/25/17) Pt reported an allergy to butter & margarine (causes swelling), though stated she is not allergic to milk. Citalopram (Unverified Allergy, Unknown, ITCHING, 02/25/17) Penicillins (Verified Allergy, Unknown, UNKNOWN, 02/25/17) PER CHRISSY IN [facility] Sulfamethoxazole w/Trimethoprim (Verified Allergy, Unknown, RASH, 02/25/17) Morphine (Verified Adverse Reaction, Mild, HEADACHE, 02/25/17) Oxycodone (Verified Adverse Reaction, Unknown, ITCH, 02/25/17) Physical Exam Vital Signs Date Time Temp Pulse Resp B/P (MAP) Pulse Ox O2 Delivery O2 Flow Rate FiO2 02/25/17 18:41 92 16 171/88 98 Nasal Cannula 2.0 02/25/17 17:04 96 22 173/83 98 Room Air 02/25/17 15:06 36.8 92 24 143/71 94 Room Air 02/25/17 15:05 Room Air Physical Exam GENERAL: Patient is a healthy-appearing well-nourished 51 year old female HEAD: Normocephalic atraumatic EYES: Ocular movements intact pupils equal and react to light OROPHARYNX mucous membranes are moist no exudates present no erythema or edema present NECK: Supple no nuchal rigidity. Left side of neck tender to palpation CHEST: Good equal expansion LUNGS: Bilateral wheezing CARDIAC: Normal S1 and S2 ABDOMEN: Soft nontender no guarding BACK: No CVA tenderness EXTREMITIES: No clubbing cyanosis or edema. Diffusely tender upon palpation to the left shoulder especially with ROM. NEURO: Patient is following commands and answering questions appropriately. Alert and oriented x3 Cranial Nerves 2-12 grossly intact Medical Decision & Procedures ER Provider Diagnostic Interpretation: X-ray results as stated below per interpretation by me and the radiologist: LEFT SHOULDER MIN 2 VIEWS ROUTINE CLINICAL HISTORY: Left shoulder pain. COMPARISON: Left shoulder radiograph December 12, 2016. FINDINGS: No acute fracture is identified. A few ossific/calcific densities along the greater tuberosity are unchanged since prior exam. These measure up to 2.8 cm. Severe joint space narrowing with osteophytosis of the left glenohumeral joint is noted. There is mild acromioclavicular joint arthritis. IMPRESSION: 1. No acute fracture or dislocation of the left shoulder. 2. No change since prior exam. Severe osteoarthritis of the left glenohumeral joint. 3. No change in several calcific densities along the greater tuberosity which suggest remote trauma or less likely calcific tendinitis. Electronically signed by: Fabrizio Johnson M.D. 02/25/2017 6:32 PM Dictated Date/Time: 02/25/2017 6:30 PM CHEST ONE VIEW PORTABLE CLINICAL HISTORY: Pt c/o left shoulder pain ATYPICAL CHEST PAIN COMPARISON STUDY: No previous studies for comparison. FINDINGS: The cardiac and mediastinal contours are normal. There is no evidence of focal pulmonary consolidation. There is no evidence of failure. No pleural effusions are visualized.[ There is no free intraperitoneal air. No pneumothorax is visualized. IMPRESSION: No active disease in the chest. Electronically signed by: Dawood Diaz M.D. 02/25/2017 6:37 PM Dictated Date/Time: 02/25/2017 6:37 PM C-SPINE ROUTINE 4 OR 5 VIEWS CLINICAL HISTORY: Neck pain radiating to the left shoulder COMPARISON STUDY: 10/02/2016 FINDINGS: No acute fractures or subluxations are visualized. There are multilevel degenerative changes. There is uncovertebral joint spurring with mild left-sided foraminal narrowing at the C6-7 level. IMPRESSION: 1. No acute fractures 2. Multilevel degenerative change. Left-sided foraminal narrowing at the C6-7 level. Electronically signed by: Dawood Diaz M.D. 02/25/2017 6:32 PM Dictated Date/Time: 02/25/2017 6:31 PM Medications Administered Medications (Trade) Dose Ordered Sig/Lucien Route Start Time Stop Time Status Last Admin Dose Admin Prednisone (PredniSONE TAB) 60 mg NOW STAT PO 02/25/17 16:56 02/25/17 16:59 DC 02/25/17 17:04 60 MG Albuterol Sulfate (Ventolin 0.5% 2.5MG/0.5ML Neb) 2.5 mg NOW STAT INH 02/25/17 16:56 02/25/17 16:59 DC 02/25/17 17:04 2.5 MG Albuterol (Ventolin Hfa Inhaler) 2 puffs NOW STAT INH 02/25/17 18:49 02/25/17 18:50 DC 02/25/17 18:49 2 PUFFS ECG Indication: SOB/dyspnea Rate (beats per minute): 100 Rhythm: normal sinus Findings: no acute ischemic change, no ectopy, other (old septal infarct) ED Course 1652: Past medical records reviewed. The patient was evaluated in room B10. A complete history and physical examination was performed. 1655: Ordered Albuterol Sulfate 2.5mg INH, Prednisone 60mg PO 1848: Ordered Albuterol 2 puffs INH 1853: Upon reexamination the patient is feeling better. I discussed results and treatment plan with the patient. She verbalizes agreement and understanding. The patient is ready for discharge. Medical Decision Differential diagnosis: Etiologies such as fracture, dislocation, neurovascular compromise, compartment syndrome, soft tissue injury, as well as others were entertained. This is a 51-year-old female presents emergency department complaining of wheezing as well as left shoulder pain. I will note that the patient has been evaluated multiple times for her shoulder pain and has yet to follow-up with orthopedics. She was given a sling by me last time she was in the emergency department. The pain is clearly muscle skeletal is reproducible on examination. She is also complaining of neck pain which is also reproducible on examination. 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 Patient was in agreement with the treatment plan. Impression Primary Impression: Shoulder pain, left Scribe Attestation The scribe's documentation has been prepared under my direction and personally reviewed by me in its entirety. I confirm that the note above accurately reflects all work, treatment, procedures, and medical decision making performed by me. Departure Information Dispostion Home / Self-Care Prescriptions Prednisone (Prednisone Tab) 20 Mg Tab 20 MG PO DAILY for 3 Days, #3 TAB Prov: Itz Navarro MD 02/25/17 Referrals No Doctor, Assigned (PCP) Forms Call Back Authorization, HOME CARE DOCUMENTATION FORM, IMPORTANT VISIT INFORMATION Patient Instructions ED Shoulder Pain [facility], [facility] Additional Instructions You were found to have an elevated blood pressure today (>120 sytolic or >90 diastolic). Per medicare guidelines, you need to follow up with this blood pressure screening with your Primary Care Physician (PCP). For a new PCP call [phone]. Follow up with Dr Daley's office You have been examined and treated today on an emergency basis only. This is not a substitute for, or an effort to provide, complete comprehensive medical care. It is impossible to recognize and treat all injuries or illnesses in a single emergency department visit. It is therefore important that you follow up closely with your PCP. Call as soon as possible for an appointment. Thank you for your time and consideration. I look forward to speaking with you again soon. Please don't hesitate to call us if you have any questions. Problem Qualifiers Primary Impression: Shoulder pain, left Chronicity: acute Qualified Codes: M25.512 - Pain in left shoulder
[2017-02-25] MEDS ORDERED: ALBUTEROL 0.5% NEB SOLN 2.5 MG/0.5 ML VIAL INH STA (16:56)
[2017-02-25] MEDS ORDERED: ZNF/4 PO (17:15)
[2017-02-25] MEDS ORDERED: MELO15TA4 PO (17:15)
--- NOTE | 2017-02-25 18:33 | DIAGNOSTIC IMAGING REPORT ---
C-SPINE ROUTINE 4 OR 5 VIEWS CLINICAL HISTORY: Neck pain radiating to the left shoulder COMPARISON STUDY: 10/02/2016 FINDINGS: No acute fractures or subluxations are visualized. There are multilevel degenerative changes. There is uncovertebral joint spurring with mild left-sided foraminal narrowing at the C6-7 level. IMPRESSION: 1. No acute fractures 2. Multilevel degenerative change. Left-sided foraminal narrowing at the C6-7 level. Electronically signed by: Dawood Diaz M.D. 02/25/2017 6:32 PM Dictated Date/Time: 02/25/2017 6:31 PM
--- NOTE | 2017-02-25 18:34 | DIAGNOSTIC IMAGING REPORT ---
LEFT SHOULDER MIN 2 VIEWS ROUTINE CLINICAL HISTORY: Left shoulder pain. COMPARISON: Left shoulder radiograph December 12, 2016. FINDINGS: No acute fracture is identified. A few ossific/calcific densities along the greater tuberosity are unchanged since prior exam. These measure up to 2.8 cm. Severe joint space narrowing with osteophytosis of the left glenohumeral joint is noted. There is mild acromioclavicular joint arthritis. IMPRESSION: 1. No acute fracture or dislocation of the left shoulder. 2. No change since prior exam. Severe osteoarthritis of the left glenohumeral joint. 3. No change in several calcific densities along the greater tuberosity which suggest remote trauma or less likely calcific tendinitis. Electronically signed by: Fabrizio Johnson M.D. 02/25/2017 6:32 PM Dictated Date/Time: 02/25/2017 6:30 PM
--- NOTE | 2017-02-25 18:39 | DIAGNOSTIC IMAGING REPORT ---
CHEST ONE VIEW PORTABLE CLINICAL HISTORY: Pt c/o left shoulder pain ATYPICAL CHEST PAIN COMPARISON STUDY: No previous studies for comparison. FINDINGS: The cardiac and mediastinal contours are normal. There is no evidence of focal pulmonary consolidation. There is no evidence of failure. No pleural effusions are visualized.[ There is no free intraperitoneal air. No pneumothorax is visualized. IMPRESSION: No active disease in the chest. Electronically signed by: Dawood Diaz M.D. 02/25/2017 6:37 PM Dictated Date/Time: 02/25/2017 6:37 PM
[2017-02-25 18:41] VITALS: BP 171/88; PULSE 92; O2SAT 98
[2017-02-25] MEDS ORDERED: ALBUTEROL HFA 8 GM INHALER INH STA (18:49)
[2017-02-25] MEDS ORDERED: PRED20TA2 PO (18:52)
== END 2017-02-25 19:10 | disposition home or self-care (01) ==
LOC: C.EDB 14:55
DX: M25.512 Pain in left shoulder (principal); R06.02 Shortness of breath; J44.9 Chronic obstructive pulmonary disease, unspecified; I48.91 Unspecified atrial fibrillation; Z87.01 Personal history of pneumonia (recurrent); E11.9 Type 2 diabetes mellitus without complications; I10 Essential (primary) hypertension; I25.2 Old myocardial infarction; F17.200 Nicotine dependence, unspecified, uncomplicated; Z91.5 Personal history of self-harm; Z98.890 Other specified postprocedural states; Z79.01 Long term (current) use of anticoagulants; Z79.4 Long term (current) use of insulin; Z79.899 Other long term (current) drug therapy

== ENCOUNTER 2017-04-05 23:59 | Emergency (ER) | payer OTHER ==
[~2017-04-05] VITALS: Ht 167.6 cm; Wt 134.0 kg
[~2017-04-05 23:59] MED LIST changes: -FLUT1INH INH; +MELO15TA4 PO; +ZNF/4 PO
[2017-04-06 00:07] VITALS: O2SAT 96
[2017-04-06] MEDS ORDERED: ALBUT/IPRATROP 3MG/0.5MG NEB 3 ML VIAL INH STA (00:09)
[2017-04-06 00:10] VITALS: TEMP 36.8; Ht 167.6 cm; Wt 134.0 kg
--- NOTE | 2017-04-06 00:14 | EMERGENCY ROOM VISIT NOTE ---
History Report prepared by Domenico: Sarah Slaughter Under the Supervision of: Dr. George Wall M.D. First contact with patient: 00:02 Chief Complaint: PALPITATIONS Stated Complaint: PALPITATIONS/ANXIOUS History of Present Illness The patient is a 51 year old female who presents to the Emergency Room with complaints of persistent palpitations starting earlier today. She presents to the ED by EMS. The patient reports heart racing, chest pain, and SOB. She states she drank some [place] and beer to try and slow her heart rate down. She has been feeling depressed and having panic attacks recently. She was started on Effexor and prednisone yesterday. She is currently not on any antibiotics. She has been taking her medications. She denies any drug use today. Source of History: patient Onset: earlier today Position: other (global) Quality: other (palpitations) Timing: other (persistent) Associated Symptoms: + chest pain, + SOB Review of Systems See HPI for pertinent positives & negatives. A total of 10 systems reviewed and were otherwise negative. Past Medical & Surgical Medical Problems: (1) Acute bronchitis (2) Afib (3) Alcohol abuse (4) Atrial fibrillation (5) Benzodiazepine abuse (6) Cellulitis of leg, right (7) Chronic generalized pain disorder (8) Cocaine abuse (9) copd exac, pna (10) copd exac, pna (11) COPD with acute exacerbation (12) COPD with exacerbation (13) Depression (14) Diabetes (15) Diabetes (16) Edema (17) Fatty liver (18) HTN (hypertension) (19) Influenza B (20) Left foot pain (21) Major depression (22) Neuropathy (23) NSTEMI, initial episode of care (24) Obesity (25) Opiate addiction (26) Ovarian cyst (27) Palpitations (28) past psych meds (29) Past Psych Meds (30) Personality disorder (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 (32) Sleep apnea (33) Suicide attempt Surgical Problems: (1) H/O foot surgery (2) H/O ovarian cystectomy Social History Problems: (1) ETOH abuse Family History Heart disease Social History Smoking Status: Current Every Day Smoker Alcohol Use: occasionally Drug Use: cocaine Marital Status: single Housing Status: lives with family Occupation Status: disabled Current/Historical Medications Scheduled Apixaban (Eliquis), 5 MG PO BID Atorvastatin (Lipitor), 40 MG PO HS Cefuroxime Axetil (Cefuroxime Axetil), 500 MG PO BID Diltiazem Hcl Coated Beads (Cartia Xt), 300 MG PO DAILY Furosemide (Furosemide), 40 MG PO QAM Hctz/Losartan (Hyzaar 12.5MG/50MG), 1 TAB PO QAM Insulin Glargine (Lantus), 55 UNITS SQ HS Insulin Lispro (Human) (Humalog), 15 UNITS SQ TIDM Ipratropium-Albuterol (Combivent Respimat), 1 PUFFS INH QID Metoprolol Succ (Toprol Xl) (Toprol-Xl ), 100 MG PO BID Omeprazole (Prilosec), 20 MG PO QAM Prednisone (Prednisone), 10 MG PO DIRECTED Ranitidine HCl (Ranitidine HCl), 150 MG PO BID Tizanidine (Tizanidine HCl), 4 MG PO TID Valacyclovir HCl (Valacyclovir HCl), 500 MG PO QAM Venlafaxine Hcl (Effexor Xr), 75 MG PO DAILY Scheduled PRN Albuterol Hfa (Ventolin Hfa), 2 PUFFS INH Q6H PRN for SOB/Wheezing Albuterol Sulf (Proventil 0.083% 2.5MG/3ML), 2.5 MG INH QID PRN for Wheezing Hydrocodone/Acetaminophen 10MG/325MG ([place] 10MG/325MG), 1 TAB PO TID PRN for Pain Ipratropium-Albuterol (Duoneb), 1 TREATMENT INH Q6H PRN for Shortness of Breath Lactulose (Chronulac), 20 GM PO DAILY PRN for Constipation Loratadine (Claritin), 10 MG PO DAILY PRN for PRN Trazodone Hcl (Trazodone), 150 MG PO HS PRN for Sleep Allergies Coded Allergies: Haloperidol (Verified Allergy, Severe, TONGUE SWELLING, 04/06/17) Margarine (Verified Allergy, Severe, RASH, 04/06/17) Pt reported an allergy to butter & margarine (causes swelling), though stated she is not allergic to milk. Citalopram (Verified Allergy, Unknown, ITCHING, 04/06/17) Penicillins (Verified Allergy, Unknown, UNKNOWN, 04/06/17) PER CHRISSY IN [facility] Sulfamethoxazole w/Trimethoprim (Verified Allergy, Unknown, RASH, 04/06/17) Morphine (Verified Adverse Reaction, Mild, HEADACHE, 04/06/17) Oxycodone (Verified Adverse Reaction, Unknown, ITCH, 04/06/17) Physical Exam Vital Signs Date Time Temp Pulse Resp B/P (MAP) Pulse Ox O2 Delivery O2 Flow Rate FiO2 04/06/17 02:41 65 18 159/65 95 Room Air 04/06/17 02:18 61 18 120/72 98 Room Air 04/06/17 01:03 69 20 91/62 98 Room Air 04/06/17 00:15 54 04/06/17 00:10 36.8 68 20 124/53 96 Room Air 04/06/17 00:09 95 Room Air 04/06/17 00:07 96 Room Air Physical Exam GENERAL: Patient is in minimal distress, mildly intoxicated appearing, smells of alcohol HEENT: No acute trauma, normocephalic atraumatic, mucous membranes moist, no nasal congestion, no scleral icterus. NECK: No stridor, no adenopathy, no meningismus, trachea is midline. LUNGS: No dyspnea. Faint wheezing bilaterally. No rhonchi. HEART: Regular rate and rhythm. No murmurs, rubs, gallops appreciated. ABDOMEN: Soft, nontender, bowel sounds positive, no masses appreciated, no peritonitis. BACK: No midline tenderness, no CVA tenderness EXTREMITIES: Normal motion all extremities, no cyanosis, no edema. NEUROLOGIC: Alert and oriented, no acute motor or sensory deficits, no focal weakness, cranial nerves grossly intact. SKIN: No rash, no jaundice, no diaphoresis. Medical Decision & Procedures ER Provider Diagnostic Interpretation: X ray results are stated below per my interpretation: Chest: 1 view: No infiltrate, no effusion, normal cardiac border. Similar to previous. Laboratory Results 04/06/17 00:23 Red Blood Count 4.19, Mean Corpuscular Volume 88.8, Mean Corpuscular Hemoglobin 31.5, Mean Corpuscular Hemoglobin Concent 35.5, Mean Platelet Volume 9.8, Neutrophils (%) (Auto) 62.6, Lymphocytes (%) (Auto) 32.3, Monocytes (%) (Auto) 4.4, Eosinophils (%) (Auto) 0.4, Basophils (%) (Auto) 0.1, Neutrophils # (Auto) 5.08, Lymphocytes # (Auto) 2.62, Monocytes # (Auto) 0.36, Eosinophils # (Auto) 0.03, Basophils # (Auto) 0.01 04/06/17 00:23 Test 04/06/17 00:23 04/06/17 02:17 04/06/17 03:28 White Blood Count 8.12 K/uL (4.8-10.8) Red Blood Count 4.19 M/uL (4.2-5.4) Hemoglobin 13.2 g/dL (12.0-16.0) Hematocrit 37.2 % (37-47) Mean Corpuscular Volume 88.8 fL (80-100) Mean Corpuscular Hemoglobin 31.5 pg (25-34) Mean Corpuscular Hemoglobin Concent 35.5 g/dl (32-36) Platelet Count 186 K/uL (130-400) Mean Platelet Volume 9.8 fL (7.4-10.4) Neutrophils (%) (Auto) 62.6 % Lymphocytes (%) (Auto) 32.3 % Monocytes (%) (Auto) 4.4 % Eosinophils (%) (Auto) 0.4 % Basophils (%) (Auto) 0.1 % Neutrophils # (Auto) 5.08 K/uL (1.4-6.5) Lymphocytes # (Auto) 2.62 K/uL (1.2-3.4) Monocytes # (Auto) 0.36 K/uL (0.11-0.59) Eosinophils # (Auto) 0.03 K/uL (0-0.5) Basophils # (Auto) 0.01 K/uL (0-0.2) RDW Standard Deviation 47.6 fL (36.4-46.3) RDW Coefficient of Variation 14.6 % (11.5-14.5) Immature Granulocyte % (Auto) 0.2 % Immature Granulocyte # (Auto) 0.02 K/uL (0.00-0.02) Anion Gap 13.0 mmol/L (3-11) Est Creatinine Clear Calc Drug Dose 106.5 ml/min Estimated GFR () 88.8 Estimated GFR (Non- 76.6 BUN/Creatinine Ratio 12.1 (10-20) Calcium Level 8.6 mg/dl (8.5-10.1) Troponin I 0.373 ng/ml (0-0.045) Total Bilirubin 0.4 mg/dl (0.2-1) Direct Bilirubin 0.1 mg/dl (0-0.2) Aspartate Amino Transf (AST/SGOT) 39 U/L (15-37) Alanine Aminotransferase (ALT/SGPT) 73 U/L (12-78) Alkaline Phosphatase 124 U/L (45-117) Total Protein 7.4 gm/dl (6.4-8.2) Albumin 3.2 gm/dl (3.4-5.0) Thyroid Stimulating Hormone (TSH) 1.250 uIu/ml (0.300-4.500) Salicylates Level 3.1 mg/dl (2.8-20) Acetaminophen Level < 2 ug/ml (10-30) Ethyl Alcohol mg/dL 5.0 mg/dl (0-3) Urine Color YELLOW Urine Appearance CLEAR (CLEAR) Urine pH 6.0 (4.5-7.5) Urine Specific [place] <= 1.005 (1.000-1.030) Urine Protein TRACE (NEG) Urine Glucose (UA) NEG (NEG) Urine Ketones NEG (NEG) Urine Occult Blood 2+ (NEG) Urine Nitrite NEG (NEG) Urine Bilirubin NEG (NEG) Urine Urobilinogen NEG (NEG) Urine Leukocyte Esterase NEG (NEG) Urine RBC 0-4 /hpf (0-4) Urine WBC 0 /hpf (0-5) Urine Epithelial Cells 20-30 /lpf (0-5) Urine Bacteria NEG (NEG) Urine Test NEG (NEG) Urine Opiates Screen POS (NEG) Urine Methadone, Qualitative NEG (NEG) Urine Barbiturates NEG (NEG) Urine Phencyclidine (PCP) Level NEG (NEG) Ur Amphetamine/Methamphetamine NEG (NEG) MDMA (Ecstasy) Screen NEG (NEG) Urine Benzodiazepines Screen NEG (NEG) Urine Cocaine Metabolite POS (NEG) Urine Marijuana (THC) NEG (NEG) Laboratory results as reviewed by me. Medications Administered Medications (Trade) Dose Ordered Sig/Lucien Route Start Time Stop Time Status Last Admin Dose Admin Albuterol/ Ipratropium (Duoneb) 3 ml NOW STAT INH 04/06/17 00:09 04/06/17 00:10 DC 10/8/17 00:21 3 ML ECG Indication: palpitations Rate (beats per minute): 58 Rhythm: atrial fibrillation Findings: no acute ischemic change, other (QTC 455) ED Course 0005: The patient was evaluated in room B7. A complete history and physical exam was performed. 0009: Duoneb 3 ml INH. 0142: Daniela Olivares is evaluating the patient. 0207: The patient told Daniela Olivares that she was going to kill herself. They asked that I extend the lab work up. 0615: Trazodone HCl 50 mg PO. 0730: The patient was signed out to Dr. Edwards at the end of my shift. Medical Decision Differential: NSR, SVT, PACs, PVCs, Cardiac Dysrhythmia, Endocrine Dysfunction, Electrolyte/Metabolic Abnormality, Pulmonary Embolism, Infectious, GI, amongst other pathologies entertained. 51 yr old female well known to me arrives from home after doing cocaine (still has some on her face on arrival) and developed palpitations/anxiety. Notes recently worsening depression for which started on effexor. Bronchitis like episode for which she was also started on prednisone. Mild wheeze on exam which is not uncommon and improved with neb. EKG unremarkable and Trop is positive, but is always positive. She had cath 2015 with clear coronaries. I do not feel this is ACS. She is on eliquis, thus I do not feel this is PE. No evidence of dissection. Labs otherwise unremarkable. Seen by Daniela Olivares given depression and her request to see them. She made increasing suicidal statements throughout and made clear she wishes psychiatric admission. She at no time expressed actual plan nor did she make any intent to do so. Multiple attempts to place her without any success throughout the evening. Given Trazadone for anxiety after she claims Vistaril makes her lips too dry. Signed out to Dr Edwards awaiting placement on 201. Medication Reconcilliation Current Medication List: was personally reviewed by me Impression Primary Impression: Cocaine abuse Additional Impressions: Palpitations Depressed Suicidal ideation Scribe Attestation The scribe's documentation has been prepared under my direction and personally reviewed by me in its entirety. I confirm that the note above accurately reflects all work, treatment, procedures, and medical decision making performed by me. Departure Information Referrals No Doctor, Assigned (PCP) Patient Instructions My [facility] Problem Qualifiers
[2017-04-06 00:33] LABS: BASO % 0.1 %; BASO ABS # 0.01 K/uL (0-0.2); COMPLETE YES; EOS % 0.4 %; HEMATOCRIT 37.2 % (37-47); IG% 0.2 %; LYMPH % 32.3 %; LYMPH ABS # 2.62 K/uL (1.2-3.4); MEAN CELL VOLUME 88.8 fL (80-100); MEAN CORPUSCULAR HEMOGLOBIN 31.5 pg (25-34); MEAN CORPUSCULAR HGB CONC 35.5 g/dl (32-36); MEAN PLATELET VOLUME 9.8 fL (7.4-10.4); MONO % 4.4 %; NEUT % 62.6 %; PLATELET COUNT 186 K/uL (130-400); RED BLOOD COUNT 4.19 M/uL (4.2-5.4); WHITE BLOOD COUNT 8.12 K/uL (4.8-10.8)
[2017-04-06] MEDS ORDERED: HYZ/50125 PO (00:41)
[2017-04-06] MEDS ORDERED: LACT10SO17 PO (00:41)
[2017-04-06] MEDS ORDERED: HYDR-4079 PO (00:41)
[2017-04-06] MEDS ORDERED: CEFU1TAB36 PO (00:46)
[2017-04-06] MEDS ORDERED: VENL75CA PO (00:46)
[2017-04-06] MEDS ORDERED: METO1TAB69 PO (00:46)
[2017-04-06] MEDS ORDERED: ATOR-24 PO (00:46)
[2017-04-06] MEDS ORDERED: ALBINS/ INH (00:46)
[2017-04-06] MEDS ORDERED: IPRA1AER2 INH (00:46)
[2017-04-06] MEDS ORDERED: PRED10TA PO (00:46)
[2017-04-06 01:07] LABS: BUN/CREATININE RATIO 12.1 (10-20); CALCIUM 8.6 mg/dl (8.5-10.1); CREATININE 0.87 mg/dl (0.60-1.20); POTASSIUM 3.4 mmol/L (3.5-5.1)
[2017-04-06 02:57] LABS: ACETAMINOPHEN < 2 ug/ml (10-30)
[2017-04-06 03:00] LABS: THYROID STIMULATING HORMONE 1.25 uIu/ml (0.300-4.500)
[2017-04-06 03:40] LABS: PREG INTERNAL NEGATIVE QC NEG CLEAR BACKGROUND; PREG INTERNAL POSITIVE QC POS CONTROL LINE
[2017-04-06 04:04] LABS: MANUAL MICROSCOPIC REQUIRED? YES; URINE APPEARANCE CLEAR (CLEAR); URINE BILIRUBIN NEG (NEG); URINE COLOR YELLOW; URINE NITRITE NEG (NEG); URINE SPECIFIC GRAVITY <= 1.005 (1.000-1.030); UROBILINOGEN NEG (NEG)
[2017-04-06 04:05] LABS: BENZODIAZEPINE, URINE NEG (NEG); COCAINE,URINE POS (NEG); PHENCYCLIDINE, URINE NEG (NEG); REVIEW REQ? NO
[2017-04-06 04:19] LABS: URINE BACTERIA NEG (NEG); URINE RBC 0-4 /hpf (0-4); URINE WBC 0 /hpf (0-5)
[2017-04-06 04:20] LABS: ZZUR CULT IF INDIC CLEAN CATCH NO
[2017-04-06] MEDS ORDERED: hydrOXYzine HCL 25 MG TAB PO STA (05:09)
[2017-04-06] MEDS ORDERED: TRAZODONE HCL 50 MG TAB PO ONE (06:15)
--- NOTE | 2017-04-06 06:17 | DIAGNOSTIC IMAGING REPORT ---
CHEST ONE VIEW PORTABLE CLINICAL HISTORY: 51 years-old Female presenting with Chest Pain, palpitations. TECHNIQUE: Portable upright AP view of the chest was obtained. COMPARISON: 02/25/2017. FINDINGS: Mildly prominent cardiac silhouette, unchanged. Lungs and pleural spaces clear. Osseous structures normal. Upper abdomen normal. IMPRESSION: 1. Mild apparent cardiomegaly, although this could be due to AP technique. No other evidence of acute cardiopulmonary disease. Electronically signed by: Alonso Nelson M.D. 04/06/2017 6:16 AM Dictated Date/Time: 04/06/2017 6:15 AM
[2017-04-06] MEDS ORDERED: LORAZEPAM 1 MG TAB SL STA (10:57)
[2017-04-06 14:44] VITALS: BP 149/90; PULSE 86; O2SAT 93
--- NOTE | 2017-04-06 15:10 | EMERGENCY ROOM VISIT NOTE ---
ED Visit Note First contact with patient: 08:10 This patient was signed out to me at shift change by Dr. Wall. At that point, the patient was awake elating psychiatric evaluation. She had been medically cleared by Dr. Wall. Her troponin is mildly elevated although this chronically is. She has No chest pain or shortness of breath while she was here she was comfortable and she ate some food and she was in no distress. She received Ativan. Missed ER psychiatric assistant case manager further evaluated her over several hours the patient denies that she has any current suicidal or homicidal ideations and does feel safe going home at this point. I think this is reasonable. The patient is in agreement with this plan and would like to go home she'll be discharged to home. Encouraged follow-up with her regular doctor and return if she has worsening symptoms any new problems or concerns.
== END 2017-04-06 14:51 | disposition home or self-care (01) ==
LOC: EDBD 23:59 → C.EDB 04-06 00:01 → C.EDA 04-06 14:51
DX: F14.10 Cocaine abuse, uncomplicated (principal); R00.2 Palpitations; F32.9 Major depressive disorder, single episode, unspecified; R45.851 Suicidal ideations; I48.91 Unspecified atrial fibrillation; I10 Essential (primary) hypertension; E11.9 Type 2 diabetes mellitus without complications; J44.9 Chronic obstructive pulmonary disease, unspecified; K76.0 Fatty (change of) liver, not elsewhere classified; G47.30 Sleep apnea, unspecified; F17.200 Nicotine dependence, unspecified, uncomplicated; Z86.19 Personal history of other infectious and parasitic diseases; Z98.890 Other specified postprocedural states; Z79.4 Long term (current) use of insulin; Z79.899 Other long term (current) drug therapy; Z88.0 Allergy status to penicillin; Z88.2 Allergy status to sulfonamides; Z88.5 Allergy status to narcotic agent; Z88.8 Allergy status to other drugs, medicaments and biological substances; Z82.49 Family history of ischemic heart disease and other diseases of the circulatory system

== ENCOUNTER 2017-04-17 20:22 | Inpatient (IN) | payer OTHER ==
[~2017-04-17] VITALS: Ht 167.6 cm; Wt 128.9 kg
[~2017-04-17 20:22] MED LIST changes: +ALBINS/ INH; +ATOR-24 PO; +CEFU1TAB36 PO; +IPRA1AER2 INH; -IPRASOL4 NEB; -MELO15TA4 PO; +METO100T44 PO; -PERP1TAB11 PO; +PRED10TA PO; +VENL75CA PO
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
--- NOTE | 2017-04-17 22:41 | DIAGNOSTIC IMAGING REPORT ---
CHEST ONE VIEW PORTABLE CLINICAL HISTORY: Overdose. COMPARISON STUDY: Chest radiograph April 06, 2017. FINDINGS: Evaluation is significantly compromised given portable technique and body habitus with suboptimal penetration. No pneumothorax or pleural effusion is present. Apparent hazy bibasilar opacities are likely artifactual. Cardiomediastinal silhouette is stable. The appearance of the chest is unchanged. IMPRESSION: 1. Technically difficult study to interpret. However, no definite acute findings identified. 2. Apparent left basilar opacity. Artifact is favored although airspace opacity could appear similar. Electronically signed by: Fabrizio Johnson M.D. 04/17/2017 10:40 PM Dictated Date/Time: 04/17/2017 10:37 PM
[2017-04-17 23:05] LABS: BASO % 0.5 %; BASO ABS # 0.03 K/uL (0-0.2); COMPLETE YES; EOS % 3.3 %; HEMATOCRIT 36.5 % (37-47); IG% 0.2 %; LYMPH ABS # 2.86 K/uL (1.2-3.4); MEAN CELL VOLUME 91.7 fL (80-100); MEAN CORPUSCULAR HEMOGLOBIN 31.2 pg (25-34); MEAN PLATELET VOLUME 9.9 fL (7.4-10.4); MONO % 5.4 %; NEUT % 45.6 %; PLATELET COUNT 225 K/uL (130-400); RED BLOOD COUNT 3.98 M/uL (4.2-5.4); WHITE BLOOD COUNT 6.35 K/uL (4.8-10.8)
[2017-04-17 23:17] LABS: INR 1.1 (0.9-1.1); PROTHROMBIN TIME (PATIENT) 11.4 SECONDS (9.0-12.0)
[2017-04-17 23:28] LABS: ACETAMINOPHEN < 2 ug/ml (10-30)
[2017-04-17 23:30] LABS: ALKALINE PHOSPHATASE 143 U/L (45-117); ALT/SGPT 55 U/L (12-78); AST/SGOT 19 U/L (15-37); BLOOD UREA NITROGEN 8 mg/dl (7-18); BUN/CREATININE RATIO 11.1 (10-20); CALCIUM 8.3 mg/dl (8.5-10.1); CARBON DIOXIDE 25 mmol/L (21-32); CHLORIDE 104 mmol/L (98-107); CKMB/CK RATIO 0.6 (0-3.0); CREATININE 0.75 mg/dl (0.60-1.20); GLUCOSE 270 mg/dl (70-99); POTASSIUM 3.4 mmol/L (3.5-5.1); SODIUM 140 mmol/L (136-145)
[2017-04-18 00:29] VITALS: O2SAT 98
[2017-04-18 01:02] LABS: URINE APPEARANCE CLEAR (CLEAR); URINE BILIRUBIN NEG (NEG); URINE COLOR YELLOW; URINE NITRITE NEG (NEG); URINE PH 5.5 (4.5-7.5); URINE SPECIFIC GRAVITY 1.025 (1.000-1.030); UROBILINOGEN NEG (NEG)
[2017-04-18 01:05] LABS: MANUAL MICROSCOPIC REQUIRED? NO; REVIEW REQ? NO
[2017-04-18 01:32] LABS: BENZODIAZEPINE, URINE NEG (NEG); COCAINE,URINE POS (NEG); PHENCYCLIDINE, URINE NEG (NEG)
--- NOTE | 2017-04-18 01:40 | EMERGENCY ROOM VISIT NOTE ---
ED Visit Note First contact with patient: 01:37 I assumed the care of the patient from Dr. Ozuna. Patient is a have a history of chronic cocaine use and chest pain. Patient usually has an elevated troponin. Which is consistent today. Patient's EKG does not show any acute ischemic changes. Patient's UDS is cocaine positive. Patient is pending voluntary inpatient psychiatric clearance and treatment. Patient will be reassessed later this AM as patient was intoxicated to reassess her need for inpatient psych trx. If still needed, a bed search will resume.
[2017-04-18] MEDS ORDERED: NovoLIN-R INSULIN PER UNIT CHARGE SC STA ×2 (10:02→20:45)
[2017-04-18] MEDS ORDERED: ALBUT/IPRATROP 3MG/0.5MG NEB 3 ML VIAL INH STA (10:02)
[2017-04-18] MEDS ORDERED: PANTOprazole SOD 40 MG TAB PO STA (10:02)
[2017-04-18] MEDS ORDERED: RANITIDINE HCL 150 MG TAB PO ONE (10:15)
[2017-04-18] MEDS ORDERED: FUROSEMIDE 40 MG TAB PO ONE (10:15)
[2017-04-18] MEDS ORDERED: NURSING VERBAL MED ORDER ONE (10:30)
[2017-04-18] MEDS ORDERED: HYDR10SY2 PO (10:43)
[2017-04-18] MEDS ORDERED: GLUCAGON FOR INJ 1 MG VIAL SQ PRN (10:45)
[2017-04-18] MEDS ORDERED: GLUCOSE 40% GEL 15 GM TUBE PO PRN (10:45)
[2017-04-18] MEDS ORDERED: GLUCOSE 10 TABS/TUBE PO PRN (10:45)
[2017-04-18] MEDS ORDERED: DEXTROSE 50% 50 ML SYR IV PRN (10:45)
[2017-04-18] MEDS ORDERED: INSULIN HUMAN LISPRO 100 UNITS/ML 3ML PEN SC SCH (11:00)
[2017-04-18] MEDS ORDERED: DILTIAZEM HCL PO ONE ×2 (12:00)
[2017-04-18] MEDS: APIXABAN 2.5 MG TAB PO SCH ×2 (12:01→21:00)
[2017-04-18] MEDS: INSULIN HUMAN LISPRO (humaLOG) 100 UNITS/ML VIAL SC SCH ×2 (12:01→19:20)
[2017-04-18] MEDS: LOSARTAN/HCTZ 50-12.5 EA TAB PO SCH (12:03)
[2017-04-18] MEDS: VENLAFAXINE HCL XR 75 MG CAPXR PO SCH (12:04)
[2017-04-18] MEDS: METOPROLOL TARTRATE 100 MG TAB PO SCH ×2 (12:06→21:16)
--- NOTE | 2017-04-18 14:16 | EMERGENCY ROOM VISIT NOTE ---
ED Visit Note First contact with patient: 07:25 51-year-old female was signed off to me at change of shift from Dr. Reza. I reevaluated the patient at 1410. Multiple medication were ordered by me for the patient prior to that. The patient is awaiting placement. The patient's case was signed off to Dr. Toney at change of shift.
[2017-04-18] MEDS ORDERED: HYDROCODONE/ACETAMI 10/325 TAB PO STA (19:08)
[2017-04-18] MEDS ORDERED: INSULIN GLARGINE SOLOSTAR 100 UNITS/ML 3 ML PEN SC STA (21:06)
[2017-04-18] MEDS ORDERED: METOPROLOL TARTRATE 50 MG TAB ONE (21:15)
[2017-04-18] MEDS ORDERED: hydrOXYzine HCL 25 MG TAB PO STA (21:24)
--- NOTE | 2017-04-18 21:24 | Psych Management Progress Note ---
Psychiatry Miscellaneous Date of Service: Apr 18, 2017. case reviewed at request of nursing student as patient very familiar to psych service and boarding in ED given complexity of bed search. Patient has refused involvement of our service in recent admits to the medical floor as we do not support the use of benzodiazepines given her extensive ETOH abuse history. She is likely minimizing her recent intake, she generally presents to ED mid/late in month after an argument with her brother and/or having financial difficulties. Rehab has been recommended multiple occasions but she is a difficult placement due to medical co-morbidities and unfortunately she is resistant to appropriate inpatient mental health facilities that are hospital based as they are also refusing to prescribe benzos at this time. She has personality disorder component and generally refuses to resume appropriate mood stabilizing medications but generally is subclinical for criteria for most commitment proceedings. In short, I feel she is at significant risk of ETOH withdrawal and would encourage use of hospital withdrawal protocol with standing Neurontin. She may be resistant to Neurontin as she doesn't feel it helps her anxiety and generally wants benzos. I would generally only recommend Ativan prn for active withdrawal. Her dose of Effexor is likely due to be increased soon but her BP isn't great acutely so I would hold at 75 mg, particularly as not on mood stabilizer. She generally requires trazodone 150 mg po qhs for sleep.
[2017-04-18] MEDS ORDERED: LORAZEPAM 1 MG TAB SL STA (22:51)
--- NOTE | 2017-04-18 22:56 | EMERGENCY ROOM VISIT NOTE ---
ED Visit Note First contact with patient: 15:44 This patient was signed out to me by Dr. Farfan at change of shift pending psychiatric placement. I did provide medications for the patient. Psychiatry made some recommendations for her. She was given Ativan for agitation in the ER. She was very anxious. I did sign the patient out to Dr. amin.
[2017-04-19] MEDS ORDERED: HYDROCODONE/ACETAMOPHEN 5/325MG TAB PO STA (04:44)
[2017-04-19] MEDS: INSULIN HUMAN LISPRO (humaLOG) 100 UNITS/ML VIAL SC SCH (08:13)
[2017-04-19] MEDS: METOPROLOL TARTRATE 100 MG TAB PO SCH (08:14)
[2017-04-19] MEDS: VENLAFAXINE HCL XR 75 MG CAPXR PO SCH (08:15)
[2017-04-19] MEDS: APIXABAN 2.5 MG TAB PO SCH ×2 (08:15→21:37)
[2017-04-19] MEDS: LOSARTAN/HCTZ 50-12.5 EA TAB PO SCH (08:15)
[2017-04-19] MEDS ORDERED: DILTIAZEM HCL PO SCH ×2 (09:00)
[2017-04-19] MEDS ORDERED: DILTIAZEM HCL 120 MG EXT REL CAP PO SCH (09:00)
--- NOTE | 2017-04-19 09:11 | EMERGENCY ROOM VISIT NOTE ---
ED Visit Note First contact with patient: 09:10 Pt signed out to me by Dr. Toney. No issues overnight. Pt asked for her usual pain medicine. Still awaiting placement. Signed out to Dr. Farfan.
[2017-04-19] MEDS ORDERED: LORAZEPAM 1 MG TAB SL STA (09:16)
[2017-04-19] MEDS ORDERED: ALBUTEROL 0.083% NEBU SOLN 3 ML VIAL INH PRN (10:00)
[2017-04-19] MEDS ORDERED: GABAPENTIN 600 MG TAB PO SCH (10:00)
[2017-04-19] MEDS ORDERED: LORAZEPAM 1 MG TAB PO PRN (10:00)
[2017-04-19] MEDS ORDERED: hydrOXYzine HCL 25 MG TAB PO PRN ×2 (10:00)
[2017-04-19] MEDS ORDERED: ALUMINUM/MAGNESIUM SUSP 30 ML UDC PO PRN (10:00)
[2017-04-19] MEDS ORDERED: SODIUM CHLORIDE 0.65% NA SOLN 45 ML (OCEAN) PRN (10:00)
[2017-04-19] MEDS ORDERED: TRAZODONE HCL 100 MG TAB PO PRN (10:00)
[2017-04-19] MEDS ORDERED: LORATADINE 10 MG TAB PO PRN (10:00)
[2017-04-19] MEDS ORDERED: ALBUT/IPRATROP 3MG/0.5MG NEB 3 ML VIAL INH PRN (10:00)
[2017-04-19] MEDS ORDERED: MAGNESIUM HYDROXIDE SUSP 30 ML UDC PO PRN (10:00)
[2017-04-19] MEDS ORDERED: ACETAMINOPHEN 325 MG TAB PO PRN (10:00)
[2017-04-19] MEDS ORDERED: BISMUTH SUBSALICYLATE PER ML OMNICELL CHARGE PO PRN (10:00)
[2017-04-19 10:13] VITALS: BP 130/68; PULSE 56; TEMP 36.8; BMI 47.9
[2017-04-19] MEDS ORDERED: PERPHENAZINE 2 MG TAB PO PRN (10:15)
[2017-04-19] MEDS ORDERED: NICOTINE 14 MG/24 HR TDSY TD PRN (10:15)
[2017-04-19] MEDS ORDERED: NVLG SQ (10:50)
[2017-04-19] MEDS ORDERED: MOME200A INH (10:50)
[2017-04-19] MEDS ORDERED: PERP1TAB10 PO (10:50)
[2017-04-19] MEDS ORDERED: INSU100I23 SQ (10:50)
[2017-04-19] MEDS: ALBUTEROL HFA 8 GM INHALER INH PRN (11:22)
[2017-04-19] MEDS ORDERED: PHARMACY GLYCEMIC MGMT CONSULT PRN (12:25)
[2017-04-19] MEDS ORDERED: INSULIN ASPART 100 UNITS/ML 3 ML PEN SQ SCH (12:30)
[2017-04-19] MEDS ORDERED: GABAPENTIN 600MG LOADING DOSE PO ONE (14:00)
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
[2017-04-19] MEDS: IPRATROPIUM BROMIDE/ALBUTEROL respimat INH INH SCH ×3 (14:37→21:37)
[2017-04-19] MEDS: THIAMINE HCL 100 MG TAB PO SCH (14:37)
[2017-04-19] MEDS: INSULIN ASPART 100 UNITS/ML 3 ML PEN SQ SCH ×3 (15:13→20:46)
[2017-04-19] MEDS ORDERED: INSULIN GLARGINE SOLOSTAR 100 UNITS/ML 3 ML PEN SQ ONE (15:15)
--- NOTE | 2017-04-19 15:17 | Pharmacy Progress Note ---
Glycemic Control Intl Consult Date of Service Apr 19, 2017. Scope Glycemic Pharmacist consulted by Dr Holland on 04/19/17 for glycemic control and to write orders per [facility] inpatient glycemic control protocol Objective Weight (Kilograms): 134.700 Accuchecks BSG (last 24hrs): Test 04/18/17 19:17 04/19/17 08:10 04/19/17 13:25 Bedside Glucose 186 mg/dl (70-90) 231 mg/dl (70-90) 178 mg/dl (70-90) Recent Pertinent Medications Outpatient Anti-diabetic Regimen: * Lantus 55 units SQ HS + Lispro 15 units TIDM * A1c = 8.9 % 12/09/16 The patient is currently receiving: * Basal insulin: Lantus 55 units every 24 hours * Correctional Insulin: Lispro 15 units TIDM (extra 2 units if BSG > 150 mg/ dL) Assessment & Plan ASSESSMENT: * 51 yr old T2DM admitted with hyperglycemia. * Patient is known to the Pharmacy Glycemic service. She takes ~100 units of insulin per day at home. She has required significantly more insulin on previous admissions compared to home use, however, she was on steroids during most of these admissions. * Fasting BSG elevated. Of note, patient did miss Lantus dose on 04/17. I will convert Lantus from q24h to q12h to allow for easier dose titration. * Change scheduled dose of short acting insulin to ACHS with CF/CR based on home dose of 100 units/day. PLAN FOR INPATIENT GLYCEMIC CONTROL: * Lantus 25 units SQ now, then Lantus 20-30 units SQ q12 * 20 units for BSG less than 120 mg/dL * 25 units for BSG 120-160 mg/dL * 30 units for BSG greater than 160 mg/dL * Correctional Insulin with NOVOLOG per scale ACHS * Goal Range: Low 110 mg/dL - High 140 mg/dL * Correction Factor: 15 mg/dL/unit * Nutritional / Prandial insulin per carb ratio of 1 unit per 5 grams CHO consumed * Please note that the plan above was derived based on current level of insulin resistance and hospital stress. These recommendations are appropriate for inpatient admission only. Plan of care upon discharge will need to be reassessed to avoid potential outpatient hypo/hyperglycemia. Thank you.
[2017-04-19 16:03] VITALS: BP 124/73; PULSE 70; TEMP 36.6
[2017-04-19] MEDS: HYDROCODONE/ACETAMI 10/325 TAB PO PRN (18:15)
[2017-04-19] MEDS ORDERED: NURSING VERBAL MED ORDER ONE (19:45)
[2017-04-19] MEDS ORDERED: CHLORPROMAZINE HCL 25 MG TAB PO ONE ×2 (20:00)
[2017-04-19] MEDS ORDERED: CHLORPROMAZINE HCL 50 MG PO ONE (20:00)
[2017-04-19] MEDS ORDERED: CHLORPROMAZINE HCL 25 MG TAB PO PRN (20:30)
[2017-04-19] MEDS: RANITIDINE HCL 150 MG TAB PO SCH (20:37)
[2017-04-19] MEDS: METOPROLOL SUCC 50MG EXT REL TAB PO SCH (20:38)
[2017-04-19] MEDS: GABAPENTIN 100MG Q6H DOSE PO SCH (20:40)
[2017-04-19] MEDS: INSULIN GLARGINE SOLOSTAR 100 UNITS/ML 3 ML PEN SQ SCH (20:47)
[2017-04-19] MEDS ORDERED: PERPHENAZINE 2 MG TAB PO SCH (21:00)
[2017-04-19] MEDS ORDERED: ATORVASTATIN 40 MG TAB PO SCH (21:00)
[2017-04-19] MEDS ORDERED: INSULIN GLARGINE SOLOSTAR 100 UNITS/ML 3 ML PEN SQ SCH (21:00)
[2017-04-19 21:06] VITALS: BP 163/100; PULSE 65; TEMP 36.7
[2017-04-20] MEDS: GABAPENTIN 100MG Q6H DOSE PO SCH (02:00)
[2017-04-20 06:45] VITALS: BP 156/80; PULSE 67; TEMP 36.9
[2017-04-20 06:57] VITALS: O2SAT 97
[2017-04-20 08:49] VITALS: BP 156/80; PULSE 67; TEMP 36.9
[2017-04-20] MEDS: FUROSEMIDE 40 MG TAB PO SCH (09:00)
[2017-04-20] MEDS ORDERED: GABAPENTIN 600MG X1 DOSE PO SCH (09:00)
[2017-04-20] MEDS: ATORVASTATIN 40 MG TAB PO SCH (09:00)
[2017-04-20] MEDS ORDERED: LOSARTAN/HCTZ 50-12.5 EA TAB PO SCH (09:00)
[2017-04-20] MEDS: IPRATROPIUM BROMIDE/ALBUTEROL respimat INH INH SCH ×4 (09:07→21:17)
[2017-04-20] MEDS: APIXABAN 2.5 MG TAB PO SCH ×2 (09:08→21:17)
[2017-04-20] MEDS: DILTIAZEM HCL 300 MG CAPCR PO SCH (09:08)
[2017-04-20] MEDS: VENLAFAXINE HCL XR 75 MG CAPXR PO SCH (09:08)
[2017-04-20] MEDS: THIAMINE HCL 100 MG TAB PO SCH (09:10)
[2017-04-20] MEDS: POLYETHYLENE (MIRALAX) 17 GM PACK PO SCH (09:10)
[2017-04-20] MEDS: METOPROLOL SUCC 50MG EXT REL TAB PO SCH ×2 (09:10→21:17)
[2017-04-20] MEDS: PANTOprazole SOD 40 MG TAB PO SCH (09:10)
[2017-04-20] MEDS: RANITIDINE HCL 150 MG TAB PO SCH ×2 (09:11→21:13)
[2017-04-20] MEDS: INSULIN ASPART 100 UNITS/ML 3 ML PEN SQ SCH ×4 (09:20→21:19)
[2017-04-20] MEDS: LOSARTAN/HCTZ 50-12.5 EA TAB PO SCH (09:31)
[2017-04-20] MEDS: HYDROCODONE/ACETAMI 10/325 TAB PO PRN ×2 (09:32→15:48)
[2017-04-20] MEDS: INSULIN GLARGINE SOLOSTAR 100 UNITS/ML 3 ML PEN SQ SCH ×2 (09:58→21:25)
[2017-04-20 10:01] LABS: ESTIMATED AVERAGE GLUCOSE 197 mg/dl; HA1C FLAG Normal (Normal)
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
[2017-04-20 13:03] VITALS: BP 151/103; PULSE 60; TEMP 36.6
[2017-04-20] MEDS: PERPHENAZINE 2 MG TAB PO SCH ×2 (13:40→21:13)
--- NOTE | 2017-04-20 15:00 | Pharmacy Progress Note ---
Glycemic Control Progress Note Date of Service Apr 20, 2017. Scope Glycemic Pharmacist consulted for glycemic control to write orders per [facility] inpatient glycemic control protocol. Objective Accuchecks BSG (last 24hrs): Test 04/19/17 17:19 04/19/17 20:35 04/20/17 07:34 04/20/17 12:03 Bedside Glucose 241 mg/dl (70-90) 177 mg/dl (70-90) 161 mg/dl (70-90) 236 mg/dl (70-90) HbA1c: Test 04/20/17 06:46 Hemoglobin A1c 8.5 % (4.5-5.6) H Recent Pertinent Medications Outpatient Anti-diabetic Regimen: * Lantus 55 units SQ HS + Lispro 15 units TIDM * A1c = 8.5 % 04/20/17 The patient is currently receiving: * Basal insulin: Lantus 20-30 units every 12 hours * Correctional Insulin: Novolog ACHS Goal range: 110 - 140 mg/dL Correction factor: 12 Carb ratio: 4 Outpatient Anti-Diabetic Meds Basal Insulin Bolus Insulin Assessment & Plan ASSESSMENT: * See progress note from 04/19/17 for background info, in short: * BSGs have ranged from 161 - 241 mg/dL over the past 24 hours. Pt received 87 units of insulin. * Fasting BSG of 161 mg/dL is elevated but greatly improved from 231 mg/dL yesterday morning. Lantus dosing has been transitioned from q24h to q12h to allow for easier dose titration. Continue Lantus per scale until needs determined. * Post-prandial BSGs remain elevated. Will tighten CF/CR. May be elevated due to prednisone. PLAN FOR INPATIENT GLYCEMIC CONTROL: * Lantus 20-30 units SQ q12 * 20 units for BSG less than 120 mg/dL * 25 units for BSG 120-160 mg/dL * 30 units for BSG greater than 160 mg/dL * Correctional Insulin with NOVOLOG per scale ACHS * Goal Range: Low 110 mg/dL - High 140 mg/dL * Correction Factor: 12 mg/dL/unit * Nutritional / Prandial insulin per carb ratio of 1 unit per 4 grams CHO consumed RECOMMENDATIONS FOR DISCHARGE: * A1c of 8.5 % (04/19/17) is less than adequate based on patient age. Of note, patient was on prednisone prior to admission. This may alter A1c result. * Continue to titrate home insulin regimen per outpatient provider. * Please note that the plan above was derived based on current level of insulin resistance and hospital stress. These recommendations are appropriate for inpatient admission only. Plan of care upon discharge will need to be reassessed to avoid potential outpatient hypo/hyperglycemia. Thank you.
[2017-04-20] MEDS: ALBUTEROL HFA 8 GM INHALER INH PRN (15:05)
[2017-04-20 15:52] VITALS: BP 145/80; PULSE 58; TEMP 36.8
[2017-04-20 21:02] VITALS: BP 146/76; PULSE 54; TEMP 37.1
[2017-04-21 07:45] VITALS: BP 140/79; PULSE 60; TEMP 36.8
[2017-04-21 07:55] VITALS: O2SAT 98
[2017-04-21 08:09] VITALS: BP 140/79; PULSE 60; TEMP 36.8
[2017-04-21] MEDS: POLYETHYLENE (MIRALAX) 17 GM PACK PO SCH (09:00)
[2017-04-21] MEDS: VENLAFAXINE HCL XR 75 MG CAPXR PO SCH ×2 (09:00→09:18)
[2017-04-21] MEDS: ATORVASTATIN 40 MG TAB PO SCH ×2 (09:00→09:19)
[2017-04-21] MEDS ORDERED: GABAPENTIN 400MG X1 DOSE PO SCH (09:00)
[2017-04-21] MEDS: IPRATROPIUM BROMIDE/ALBUTEROL respimat INH INH SCH ×4 (09:16→21:06)
[2017-04-21] MEDS: DILTIAZEM HCL 300 MG CAPCR PO SCH (09:18)
[2017-04-21] MEDS: APIXABAN 2.5 MG TAB PO SCH ×2 (09:18→21:16)
[2017-04-21] MEDS: FUROSEMIDE 40 MG TAB PO SCH (09:19)
[2017-04-21] MEDS: LOSARTAN/HCTZ 50-12.5 EA TAB PO SCH (09:19)
[2017-04-21] MEDS: PANTOprazole SOD 40 MG TAB PO SCH (09:19)
[2017-04-21] MEDS: METOPROLOL SUCC 50MG EXT REL TAB PO SCH ×2 (09:20→21:21)
[2017-04-21] MEDS: PERPHENAZINE 2 MG TAB PO SCH ×2 (09:22→21:07)
[2017-04-21] MEDS: RANITIDINE HCL 150 MG TAB PO SCH ×2 (09:22→21:07)
[2017-04-21] MEDS: THIAMINE HCL 100 MG TAB PO SCH (09:22)
[2017-04-21] MEDS: INSULIN GLARGINE SOLOSTAR 100 UNITS/ML 3 ML PEN SQ SCH ×2 (09:48→21:08)
[2017-04-21] MEDS: INSULIN ASPART 100 UNITS/ML 3 ML PEN SQ SCH ×4 (09:49→21:10)
[2017-04-21] MEDS: LACTULOSE SYRUP 20 GM/30 ML UDC PO PRN (09:53)
[2017-04-21] MEDS: HYDROCODONE/ACETAMI 10/325 TAB PO PRN ×2 (09:53→18:13)
[2017-04-21 11:39] VITALS: Ht 167.6 cm; Wt 128.9 kg
[2017-04-21 12:57] LABS: COCAINE, URINE 12200 NG/ML (CUTOFF=100)
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
[2017-04-21 21:23] VITALS: BP 117/66; PULSE 51
[2017-04-22 07:00] VITALS: BP_SYST 150; BP_SYST 160; BP_DIAS 76; BP_DIAS 90; PULSE 54; PULSE 65; TEMP 37
[2017-04-22 07:01] VITALS: O2SAT 97
[2017-04-22] MEDS: IPRATROPIUM BROMIDE/ALBUTEROL respimat INH INH SCH ×4 (08:37→21:02)
[2017-04-22] MEDS: DILTIAZEM HCL 300 MG CAPCR PO SCH (08:38)
[2017-04-22] MEDS: FUROSEMIDE 40 MG TAB PO SCH (08:39)
[2017-04-22] MEDS: APIXABAN 2.5 MG TAB PO SCH ×2 (08:39→20:54)
[2017-04-22] MEDS: LOSARTAN/HCTZ 50-12.5 EA TAB PO SCH (08:39)
[2017-04-22] MEDS: PANTOprazole SOD 40 MG TAB PO SCH (08:40)
[2017-04-22] MEDS: METOPROLOL SUCC 50MG EXT REL TAB PO SCH ×2 (08:40→20:54)
[2017-04-22] MEDS: THIAMINE HCL 100 MG TAB PO SCH (08:41)
[2017-04-22] MEDS: PERPHENAZINE 2 MG TAB PO SCH ×2 (08:41→21:03)
[2017-04-22] MEDS: RANITIDINE HCL 150 MG TAB PO SCH ×2 (08:41→21:03)
[2017-04-22] MEDS: POLYETHYLENE (MIRALAX) 17 GM PACK PO SCH (08:44)
[2017-04-22] MEDS: ATORVASTATIN 40 MG TAB PO SCH (08:44)
[2017-04-22] MEDS: VENLAFAXINE HCL XR 75 MG CAPXR PO SCH (08:44)
[2017-04-22] MEDS ORDERED: GABAPENTIN 200MG X1 DOSE PO SCH (09:00)
[2017-04-22] MEDS: INSULIN ASPART 100 UNITS/ML 3 ML PEN SQ SCH ×4 (09:06→21:02)
[2017-04-22] MEDS: INSULIN GLARGINE SOLOSTAR 100 UNITS/ML 3 ML PEN SQ SCH ×2 (09:15→21:00)
[2017-04-22] MEDS: HYDROCODONE/ACETAMI 10/325 TAB PO PRN (09:25)
--- NOTE | 2017-04-22 09:49 | Psychiatric Progress Notes ---
Progress Note Date of Service Apr 22, 2017. Interval History 51 year old single - [place] female from [place], well known to psychiatric service for multiple psych admits and recurrent consults for substance abuse. She was brought to the ED by police on 12/16/16 on a 302 warrant. After an exhaustive stay in ED for bedsearch she was examined by Dr. Holland on 04/20 and felt to be appropriate for 201 admission. Chief Complaint "So-so". Subjective Patient was seen & assessed interval progress reviewed with Nursing. Staff report the patient has been refusing her scheduled Zanaflex, Effexor, Lipitor, and Miralax daily. She has been taking the morning dose of Eliquis, but refusing the bedtime dose. She has been requesting and receiving Ze[place] twice a day, but her pain clinic was contacted and stated that they are no longer prescribing her Zeeland or any other opiates, and that they have been discontinued , and they're prescribing only Zanaflex. She is going to groups and participating, and tends to isolate in her room when not in groups. She admitted that she had been snorting cocaine and using alcohol, and when off her medication several months ago she did not think she needed them. She denies that she threatened anyone with a knife, but won't allow her brothers to be involved in her treatment to clarify what happened. She did rescind her 72 hour notice and agreed to stay for further treatment. On my assessment, she is seen in her room, where she is lying face down on the bed and mumbling into the pillow. She states that she continues to feel depressed and fearful, stating that she is hearing sounds of "people hitting the stephen, loud stuff." She thinks that this means someone is trying to "break in and get me." She cannot reality test, stating "this is real stuff." She states this was also making her feel unsafe at home, and says she does not feel safe anywhere. She says she knows who is after her, but refuses to say who it is. She says the police are aware of the situation, "they've been involved since 2011, 2012." She admits that her brother is living with her, but is very reluctant to state which brother, stating "one of my younger ones." She is not even sure if she can trust him. She denies thoughts of harming herself, but admits that she feels she needs to be able to protect herself against the unnamed individual who she thinks is after her. She refuses to state if she has access to a gun, "I wouldn't tell nobody what I have." She was informed about the information we received from her pain clinic, that they have discontinued her Zeeland, and it would be tapered off here. She states she is refusing Effexor because it makes her mouth dry, and that she doesn't like Lipitor because "there ain't nothin wrong with my cholesterol." She is unable to reality test with respect to the medications and the risks of not taking them. She says she is only taking a look was once a day because that's how her doctor told her to take it and she thinks taking it twice a day will cause "internal bleeding." Sleep Information Total Hours of Sleep: 3.00 Meal Information Percent of Breakfast Consumed: 80 Percent of Lunch Consumed: 0 Percent of Dinner Consumed: 50 Mental Status Exam During interview pt is: alert and oriented, guarded Appearance: appropriately groomed, disheveled, other (morbidly obese, lying face down on the bed) Eye contact is: poor Motor behavior is: no abnormal motor movements Speech: other (mumbling into the pillow, difficult to understand, nonspontaneous) Affect: depressed, irritable, constricted Mood is: other ("so-so") Thought process: goal directed, perseveration Thought content: paranoid, delusions, persecution Suicidal thought are: denied Homicidal thoughts are: present (feels she may have to protect herself against an unnamed person whom she feels wants to harm her, and refuses to state if she has access to a gun) Hallucinations: auditory (hears loud noises that she describes as people trying to break into the unit), denies visual Cognition: language grossly intact, other (attention impaired) Intelligence estimated to be: consistent with level of education Insight: severely impaired Judgement: severely impaired Impression More organized, but remains extremely paranoid paranoid, with delusions of persecution, and lacks insight. She is able to say that she needs to be on meds and stay in psychiatric treatment, but is refusing some medications for irrational reasons, and has no insight into her hallucinations and paranoia. She had been off her meds for 3 months, and we are titrating her back onto perphenazine. She had submitted a 72 hour notice, but agreed to rescind it and remain in the hospital. We are encouraging a meeting with her brother Donis, but she is refusing. Drugs and alcohol are still clearly part of her coping strategy, abusing alcohol and cocaine, but she doesn't see them as a problem and is not interested in treatment. She reported being prescribed Zeeland, which we have confirmed was actually discontinued by her pain management clinic. Continued Inpatient Care A private room remains medically necessary for the safety of self and others as well as need for O2. Plan (1) Schizoaffective disorder 04/20/17--continue Trilafon retrial, increase to 4 mg BID today, trying to avoid benzos for anxiety 04/21--Increase Trilafon to 8 mg. BID 04/22--Increase perphenazine to 12mg bid for psychosis. Discontinue venlafaxine , as she is refusing it and risks discontinuation symptoms if she is taking it erratically. Once she is less psychotic, we can engage her in a discussion of the medication options for mood. Check another EKG, as initial one was abnormal and showed prolonged QT see a 481. (2) Polysubstance (including opioids) dependence, daily use continue AWSS through today, doesn't appear to be in withdrawal but is on Neurontin taper [place] decreased from 5 times a day to 3 times a day here, communication with outpatient prescriber on 04/21 is recommended 04/21 - Not triggering the AWSS and so will DC. - Phone contact with [facility] [phone], where Rebeca only recently started getting treatment. She is scheduled to see them in their [place] Office 03/25/17. Last Rx for Zeeland was 03/25/17 one tabl 5x daily #150, and was then DC'd. She is only receiving Zanaflex 4 mg. TID from their office per records. 04/22--taper off Zeeland over the next couple of days, as per her pain management clinic, it has been discontinued. Change Zanaflex to prn, as she has been refusing it. Avoid controlled substances, and coordinate care with her pain management clinic, sending records and ensure a follow-up appointment at discharge. Their staff were already informed about her ongoing alcohol and illicit drug abuse. (3) Diabetes 04/20--pharmacy consult for glycemic control Diabetic/heart healthy diet (4) Elevated troponin 04/20--denies CP 04/21-- Patient has chronically elevated troponins. 04/22--continue cardiac meds, including Toprol-XL, Cardizem (5) HTN (hypertension) 04/22--continue to monitor blood pressure, which has been elevated at times. Continue furosemide, Hyzaar, diltiazem, and Lipitor. (6) Pulmonary embolism Continue Eliquis. 04/22 - patient has been refusing the second dose of Eliquis, stating she was told only to take it once a day. We will need to get records from her PCP to confirm correct dosing. Discharge / Aftercare Planning Primary Care Physician: Name: Dr Nelson Therapist: Name: n/a Pain Clinic: Name: [facility] Date of Appointment: Apr 24, 2017 [facility] Visit Code E&M Code: 63131 Risk Factors Assessment : No /single/: Yes Higher / Fall in social status: No Access to guns: No (patient refuses to answer whether or not she has a gun, but in the past has denied access to guns) Health problems: Yes Mental Health Diagnoses: Yes Substance use disorders: Yes Previous psychiatric stay: Yes Hopelessness: Yes Smoker: Yes Protective Factors Assessment : No Responsible for young children: No Employed: No Stable relationships: No Supportive family: Yes (says her brother is living with her, but is refusing to allow him to participate in treatment) Good rapport with provider: No Data Vital Signs Last 24 Hrs: Date Time Temp Pulse Resp B/P (MAP) Pulse Ox O2 Delivery O2 Flow Rate FiO2 04/22/17 07:01 97 Room Air 04/22/17 07:00 37.0 65 20 160/90 54 150/76 04/21/17 21:23 51 20 117/66 Meds Administered Last 24 Hrs: Meds Administered (Past 24Hrs) Medications (Trade) Dose Ordered Sig/Lucien Route Start Time Stop Time Status Last Admin Dose Admin Gabapentin (Neurontin Cap) 400 mg DAILY PO 04/21/17 09:00 04/21/17 09:01 DC 04/21/17 09:19 400 MG Gabapentin (Neurontin Cap) 200 mg DAILY PO 04/22/17 09:00 04/22/17 09:01 DC 04/22/17 08:39 200 MG Perphenazine (Trilafon Tab) 4 mg BID PO 04/20/17 11:45 04/21/17 12:22 DC 04/21/17 09:22 4 MG Perphenazine (Trilafon Tab) 8 mg BID PO 04/21/17 22:00 05/21/17 21:59 04/22/17 08:41 8 MG Lab Results Last 24 Hrs: Last 24 Hours Test 04/21/17 12:04 04/21/17 17:04 04/21/17 20:30 04/22/17 08:35 Bedside Glucose 191 mg/dl 123 mg/dl 227 mg/dl 119 mg/dl Problem Qualifiers (1) Schizoaffective disorder: Schizoaffective disorder type: bipolar Qualified Codes: F25.0 - Schizoaffective disorder, bipolar type
--- NOTE | 2017-04-22 13:57 | Pharmacy Progress Note ---
Glycemic: Assessment & Plan Date of Service Apr 22, 2017. Assessment & Plan Outpatient Anti-diabetic Regimen: * Lantus 55 units SQ HS + Lispro 15 units TIDM * A1c = 8.5% 04/20/17 ASSESSMENT: * See progress note from 04/19/17 for background info, in short: * BSGs have ranged from 119 - 227 mg/dL over the past 24 hours. Pt received 99 units of insulin. * If post-prandial BSGs remain elevated, will tighten CF/CR. May be elevated due to prednisone, but pt has not been eating much thus far. PLAN FOR INPATIENT GLYCEMIC CONTROL: * Lantus 20-30 units SQ q12 * 20 units for BSG less than 120 mg/dL * 25 units for BSG 120-160 mg/dL * 30 units for BSG greater than 160 mg/dL * Correctional Insulin with NOVOLOG per scale ACHS * Goal Range: Low 110 mg/dL - High 140 mg/dL * Correction Factor: 12 mg/dL/unit * Nutritional / Prandial insulin per carb ratio of 1 unit per 4 grams CHO consumed RECOMMENDATIONS FOR DISCHARGE: * A1c of 8.5 % (04/19/17) is less than adequate based on patient age. Of note, patient was on prednisone prior to admission. This may alter A1c result. * Continue to titrate home insulin regimen per outpatient provider. * Please note that the plan above was derived based on current level of insulin resistance and hospital stress. These recommendations are appropriate for inpatient admission only. Plan of care upon discharge will need to be reassessed to avoid potential outpatient hypo/hyperglycemia. Thank you.
[2017-04-22 20:53] VITALS: BP 145/76; PULSE 53
[2017-04-23 06:52] VITALS: O2SAT 96
[2017-04-23] MEDS: INSULIN ASPART 100 UNITS/ML 3 ML PEN SQ SCH ×4 (08:00→21:33)
[2017-04-23] MEDS: INSULIN GLARGINE SOLOSTAR 100 UNITS/ML 3 ML PEN SQ SCH ×2 (09:00→22:09)
[2017-04-23] MEDS ORDERED: POLYETHYLENE (MIRALAX) 17 GM PACK PO PRN (09:00)
[2017-04-23] MEDS: ATORVASTATIN 40 MG TAB PO SCH (09:00)
[2017-04-23 09:01] VITALS: BP 146/74; PULSE 74; TEMP 36.8
[2017-04-23] MEDS: IPRATROPIUM BROMIDE/ALBUTEROL respimat INH INH SCH ×4 (09:02→21:23)
[2017-04-23] MEDS: DILTIAZEM HCL 300 MG CAPCR PO SCH (09:03)
[2017-04-23] MEDS: PANTOprazole SOD 40 MG TAB PO SCH (09:03)
[2017-04-23] MEDS: APIXABAN 2.5 MG TAB PO SCH ×2 (09:03→21:36)
[2017-04-23] MEDS: LOSARTAN/HCTZ 50-12.5 EA TAB PO SCH (09:03)
[2017-04-23] MEDS: FUROSEMIDE 40 MG TAB PO SCH (09:03)
[2017-04-23] MEDS: PERPHENAZINE 2 MG TAB PO SCH ×2 (09:04→21:24)
[2017-04-23] MEDS: RANITIDINE HCL 150 MG TAB PO SCH ×2 (09:04→21:24)
[2017-04-23] MEDS: THIAMINE HCL 100 MG TAB PO SCH (09:04)
[2017-04-23] MEDS: METOPROLOL SUCC 50MG EXT REL TAB PO SCH ×2 (09:04→21:25)
[2017-04-23] MEDS: HYDROCODONE/ACETAMI 10/325 TAB PO PRN (09:16)
[2017-04-23] MEDS: LACTULOSE SYRUP 20 GM/30 ML UDC PO PRN (09:17)
--- NOTE | 2017-04-23 11:15 | Pharmacy Progress Note ---
Glycemic: Assessment & Plan Date of Service Apr 23, 2017. Assessment & Plan Outpatient Anti-diabetic Regimen: * Lantus 55 units SQ HS + Lispro 15 units TIDM * A1c = 8.5% 04/20/17 ASSESSMENT: * See progress note from 04/19/17 for background info, in short: * BSGs have ranged from 119 - 245 mg/dL over the past 24 hours. Pt received 97 units of insulin. * Patient has had some increasing hyperglycemia, likely d/t increased diet intake. * Patient has required significantly higher daily doses of insulin during past admissions, so it seems reasonable that doses are adjusted at this time to provide additional coverage. PLAN FOR INPATIENT GLYCEMIC CONTROL: * Lantus 30-40 units SQ q12 * 30 units for BSG less than 120 mg/dL * 35 units for BSG 120-160 mg/dL * 40 units for BSG greater than 160 mg/dL * Correctional Insulin with NOVOLOG per scale ACHS * Goal Range: Low 110 mg/dL - High 140 mg/dL * Correction Factor: 10 mg/dL/unit * Nutritional / Prandial insulin per carb ratio of 1 unit per 3 grams CHO consumed RECOMMENDATIONS FOR DISCHARGE: * A1c of 8.5 % (04/19/17) is less than adequate based on patient age. Of note, patient was on prednisone prior to admission, which may alter A1c result. * Continue to titrate home insulin regimen per outpatient provider. * Please note that the plan above was derived based on current level of insulin resistance and hospital stress. These recommendations are appropriate for inpatient admission only. Plan of care upon discharge will need to be reassessed to avoid potential outpatient hypo/hyperglycemia. Thank you.
--- NOTE | 2017-04-23 11:32 | Psychiatric Progress Notes ---
Progress Note Date of Service Apr 23, 2017. Interval History 51 year old single - Faro[place] female from [place], well known to psychiatric service for multiple psych admits and recurrent consults for substance abuse. She was brought to the ED by police on 12/16/16 on a 302 warrant. After an exhaustive stay in ED for bedsearch she was examined by Dr. Holland on 04/20 and felt to be appropriate for 201 admission. Chief Complaint "I'm tired". Subjective Patient was seen & assessed interval progress reviewed with Treatment Team. The patient reports feeling tired today, likely from her meds. She says, however, that she got better sleep last night because of the meds. She also got a roommate, and says that she is getting along well with her. She is feeling angry with her brother Josiah, who she says has been staying with her for the last several months. She says that he lied to try to get her 302'd and now she doesn't trust him, "If he does that, what else will he be willing to do?". She says that she has tried to have him leave in the past with no success, but is working on it again, and thinks he will be gone "real soon". If not she says that she may stay somewhere else. She gave permission and signed LISSET's to talk with her brothers, but no meeting has been set up yet. She denies hallucinations, denies SI/HI. Review of Systems Constitutional: + fatigue ENT: No hearing loss, No unusual epistaxis, No nasal symptoms, No sore throat, No tinnitus, No dental problems, No trouble swallowing, No problem reported Respiratory: + shortness of breath Cardiovascular: No chest pain, No orthopnea, No PND, No edema, No claudication , No palpitations, No problem reported Abdomen: No pain, No nausea, No vomiting, No diarrhea, No constipation, No GI bleeding, No problem reported Musculoskeletal: + problem reported (walks with a walker) Neurologic: No memory loss, No paralysis, No weakness, No numbness/tingling, No vertigo, No balance problems, No problem reported Psychiatric: + depression symptoms Integumentary: + problem reported (paranoia) Sleep Information Total Hours of Sleep: 6.75 Meal Information Percent of Breakfast Consumed: 80 Percent of Lunch Consumed: 50 Percent of Dinner Consumed: 75 Mental Status Exam During interview pt is: alert and oriented, guarded Appearance: appropriately groomed, disheveled (still wearing her nightwear), other (morbidly obese, lying face down on the bed) Eye contact is: fair Motor behavior is: no abnormal motor movements Speech: normal in rate, rhythm & volume Affect: depressed, constricted Mood is: depressed Thought process: goal directed Thought content: paranoid, delusions, persecution Suicidal thought are: denied Homicidal thoughts are: present (feels she may have to protect herself against an unnamed person whom she feels wants to harm her, and refuses to state if she has access to a gun) Hallucinations: denies auditory, denies visual Cognition: language grossly intact, other (attention impaired) Intelligence estimated to be: consistent with level of education Insight: impaired Judgement: impaired Impression Is tolerating retitration of trilafon, with some fatigue today. Generally she has been attending groups with good participation, but underlying chronic paranoia remains. Would like to have a meeting with her brothers, since they are living with her, and will try to set up today. Will continue current dose of trilafon and give her time to accomodate. 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 She may need to continue with her PCP, Dr. Nelson for now. Continued Inpatient Care A private room remains medically necessary for the safety of self and others as well as need for O2. Plan (1) Schizoaffective disorder 04/20/17--continue Trilafon retrial, increase to 4 mg BID today, trying to avoid benzos for anxiety 04/21--Increase Trilafon to 8 mg. BID 04/22--Increase perphenazine to 12mg bid for psychosis. Discontinue venlafaxine , as she is refusing it and risks discontinuation symptoms if she is taking it erratically. Once she is less psychotic, we can engage her in a discussion of the medication options for mood. Check another EKG, as initial one was abnormal and showed prolonged QT see a 481. 04/23 - Continue current meds - Attempt to set up meeting with brothers. (2) Polysubstance (including opioids) dependence, daily use continue AWSS through today, doesn't appear to be in withdrawal but is on Neurontin taper [place] decreased from 5 times a day to 3 times a day here, communication with outpatient prescriber on 04/21 is recommended 04/21 - Not triggering the AWSS and so will DC. - Phone contact with [facility] [phone], where Rebeca only recently started getting treatment. She is scheduled to see them in their [place] Office 03/25/17. Last Rx for [place] was 03/25/17 one tabl 5x daily #150, and was then DC'd. She is only receiving Zanaflex 4 mg. TID from their office per records. 04/22--taper off [place] over the next couple of days, as per her pain management clinic, it has been discontinued. Change Zanaflex to prn, as she has been refusing it. Avoid controlled substances, and coordinate care with her pain management clinic, sending records and ensure a follow-up appointment at discharge. Their staff were already informed about her ongoing alcohol and illicit drug abuse. (3) Diabetes 04/20--pharmacy consult for glycemic control Diabetic/heart healthy diet (4) Elevated troponin 04/20--denies CP 04/21-- Patient has chronically elevated troponins. 04/22--continue cardiac meds, including Toprol-XL, Cardizem (5) HTN (hypertension) 04/22--continue to monitor blood pressure, which has been elevated at times. Continue furosemide, Hyzaar, diltiazem, and Lipitor. (6) Pulmonary embolism Continue Eliquis. 04/22 - patient has been refusing the second dose of Eliquis, stating she was told only to take it once a day. We will need to get records from her PCP to confirm correct dosing. Discharge / Aftercare Planning Primary Care Physician: Name: Dr Nelson Psychiatrist: Name: Afsaneh Campa Therapist: Name: . Certified Professional Coder: Name: Clarice [facility]: Name: [facility] [place]-Dr Noe Date of Appointment: May 01, 2017 Time of Appointment: 1300 Appointment Notes: [place] [facility] Visit Code E&M Code: 12166 Risk Factors Assessment : No /single/: Yes Higher / Fall in social status: No Access to guns: No (patient refuses to answer whether or not she has a gun, but in the past has denied access to guns) Health problems: Yes Mental Health Diagnoses: Yes Substance use disorders: Yes Previous psychiatric stay: Yes Hopelessness: Yes Smoker: Yes Protective Factors Assessment : No Responsible for young children: No Employed: No Stable relationships: No Supportive family: Yes (says her brother is living with her, but is refusing to allow him to participate in treatment) Good rapport with provider: No Data Vital Signs Last 24 Hrs: Date Time Temp Pulse Resp B/P (MAP) Pulse Ox O2 Delivery O2 Flow Rate FiO2 04/23/17 09:01 36.8 74 18 146/74 04/23/17 06:52 96 Room Air 04/22/17 20:53 53 18 145/76 Meds Administered Last 24 Hrs: Meds Administered (Past 24Hrs) Medications (Trade) Dose Ordered Sig/Lucien Route Start Time Stop Time Status Last Admin Dose Admin Gabapentin (Neurontin Cap) 200 mg DAILY PO 04/22/17 09:00 04/22/17 09:01 DC 04/22/17 08:39 200 MG Perphenazine (Trilafon Tab) 8 mg BID PO 04/21/17 22:00 04/22/17 11:01 DC 04/22/17 08:41 8 MG Acetaminophen/ Hydrocodone Bitart ([place] 10/325 Tab) 1 tab DAILY PRN PO 04/22/17 09:45 04/24/17 12:00 04/23/17 09:16 1 TAB Perphenazine (Trilafon Tab) 12 mg BID PO 04/22/17 22:00 05/21/17 21:59 04/23/17 09:04 12 MG Lab Results Last 24 Hrs: Last 24 Hours Test 04/22/17 12:25 04/22/17 17:10 04/22/17 20:21 04/23/17 08:31 Bedside Glucose 152 mg/dl 245 mg/dl 212 mg/dl 132 mg/dl Problem Qualifiers (1) Schizoaffective disorder: Schizoaffective disorder type: bipolar Qualified Codes: F25.0 - Schizoaffective disorder, bipolar type
[2017-04-23 22:13] VITALS: BP 150/73; PULSE 57
[2017-04-24 06:33] VITALS: O2SAT 98
[2017-04-24 06:34] VITALS: BP_SYST 155; BP_SYST 161; BP_DIAS 86; BP_DIAS 95; PULSE 67; TEMP 36.6
[2017-04-24] MEDS: ATORVASTATIN 40 MG TAB PO SCH ×2 (09:00→09:21)
[2017-04-24] MEDS: APIXABAN 2.5 MG TAB PO SCH ×2 (09:20→21:41)
[2017-04-24] MEDS: LOSARTAN/HCTZ 50-12.5 EA TAB PO SCH (09:20)
[2017-04-24] MEDS: IPRATROPIUM BROMIDE/ALBUTEROL respimat INH INH SCH ×4 (09:20→21:28)
[2017-04-24] MEDS: DILTIAZEM HCL 300 MG CAPCR PO SCH (09:20)
[2017-04-24] MEDS: FUROSEMIDE 40 MG TAB PO SCH (09:21)
[2017-04-24] MEDS: PANTOprazole SOD 40 MG TAB PO SCH (09:22)
[2017-04-24] MEDS: METOPROLOL SUCC 50MG EXT REL TAB PO SCH ×2 (09:22→21:29)
[2017-04-24] MEDS: PERPHENAZINE 2 MG TAB PO SCH ×2 (09:23→21:31)
[2017-04-24] MEDS: RANITIDINE HCL 150 MG TAB PO SCH ×2 (09:23→21:31)
[2017-04-24] MEDS: THIAMINE HCL 100 MG TAB PO SCH (09:23)
[2017-04-24] MEDS: HYDROCODONE/ACETAMI 10/325 TAB PO PRN (09:26)
[2017-04-24] MEDS: INSULIN ASPART 100 UNITS/ML 3 ML PEN SQ SCH ×4 (09:50→21:37)
[2017-04-24] MEDS: INSULIN GLARGINE SOLOSTAR 100 UNITS/ML 3 ML PEN SQ SCH ×2 (09:52→21:34)
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
[2017-04-24] MEDS: ALBUTEROL HFA 8 GM INHALER INH PRN (13:12)
--- NOTE | 2017-04-24 14:11 | Pharmacy Progress Note ---
Glycemic: Assessment & Plan Date of Service Apr 24, 2017. Assessment & Plan Outpatient Anti-diabetic Regimen: * Lantus 55 units SQ HS + Lispro 15 units TIDM * A1c = 8.5% 04/20/17 ASSESSMENT: * See progress note from 04/19/17 for background info, in short: * BSGs have ranged from 135 - 264 mg/dL over the past 24 hours. Pt received 124 units of insulin. * Nursing notes that patient has been seen snacking on crackers in the common room between meals. This may be contributing to hyperglycemia throughout the day. PLAN FOR INPATIENT GLYCEMIC CONTROL: * Lantus 30-40 units SQ q12 * 30 units for BSG less than 120 mg/dL * 35 units for BSG 120-160 mg/dL * 40 units for BSG greater than 160 mg/dL * Correctional Insulin with NOVOLOG per scale ACHS * Goal Range: Low 110 mg/dL - High 140 mg/dL * Correction Factor: 10 mg/dL/unit * Nutritional / Prandial insulin per carb ratio of 1 unit per 3 grams CHO consumed RECOMMENDATIONS FOR DISCHARGE: * A1c of 8.5 % (04/19/17) is less than adequate based on patient age. Of note, patient was on prednisone prior to admission, which may alter A1c result. * Continue to titrate home insulin regimen per outpatient provider. * Please note that the plan above was derived based on current level of insulin resistance and hospital stress. These recommendations are appropriate for inpatient admission only. Plan of care upon discharge will need to be reassessed to avoid potential outpatient hypo/hyperglycemia. Thank you.
[2017-04-24 21:52] VITALS: BP 155/88; PULSE 68
[2017-04-25 07:01] VITALS: O2SAT 99
[2017-04-25 07:02] VITALS: BP 122/74; PULSE 64; TEMP 36.8
[2017-04-25] MEDS: INSULIN ASPART 100 UNITS/ML 3 ML PEN SQ SCH ×4 (08:00→21:32)
[2017-04-25] MEDS: PANTOprazole SOD 40 MG TAB PO SCH (09:00)
[2017-04-25] MEDS: DILTIAZEM HCL 300 MG CAPCR PO SCH (09:00)
[2017-04-25] MEDS: APIXABAN 2.5 MG TAB PO SCH ×2 (09:00→21:23)
[2017-04-25] MEDS: RANITIDINE HCL 150 MG TAB PO SCH ×2 (09:00→21:27)
[2017-04-25] MEDS: LOSARTAN/HCTZ 50-12.5 EA TAB PO SCH (09:00)
[2017-04-25] MEDS: THIAMINE HCL 100 MG TAB PO SCH (09:00)
[2017-04-25] MEDS: INSULIN GLARGINE SOLOSTAR 100 UNITS/ML 3 ML PEN SQ SCH ×2 (09:00→21:29)
[2017-04-25] MEDS: IPRATROPIUM BROMIDE/ALBUTEROL respimat INH INH SCH ×4 (09:00→21:24)
[2017-04-25] MEDS: PERPHENAZINE 2 MG TAB PO SCH ×2 (09:00→21:27)
[2017-04-25] MEDS: ATORVASTATIN 40 MG TAB PO SCH (09:00)
[2017-04-25] MEDS: FUROSEMIDE 40 MG TAB PO SCH (09:00)
[2017-04-25] MEDS: METOPROLOL SUCC 50MG EXT REL TAB PO SCH ×2 (09:00→21:26)
[2017-04-25 09:52] VITALS: BP 122/74; PULSE 64; TEMP 36.8
[2017-04-25] MEDS: LACTULOSE SYRUP 20 GM/30 ML UDC PO PRN (10:05)
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
[2017-04-25] MEDS ORDERED: AMITRIPTYLINE HCL 25 MG TAB PO SCH (22:00)
[2017-04-26 07:07] VITALS: O2SAT 98
[2017-04-26 08:05] VITALS: BP_SYST 125; BP_SYST 155; BP_DIAS 61; BP_DIAS 81; PULSE 54; PULSE 71; TEMP 36.5
[2017-04-26] MEDS: ATORVASTATIN 40 MG TAB PO SCH ×2 (09:00→09:05)
[2017-04-26] MEDS: IPRATROPIUM BROMIDE/ALBUTEROL respimat INH INH SCH ×4 (09:02→20:55)
[2017-04-26] MEDS: DILTIAZEM HCL 300 MG CAPCR PO SCH (09:02)
[2017-04-26] MEDS: LOSARTAN/HCTZ 50-12.5 EA TAB PO SCH (09:04)
[2017-04-26] MEDS: APIXABAN 2.5 MG TAB PO SCH ×2 (09:04→21:09)
[2017-04-26] MEDS: RANITIDINE HCL 150 MG TAB PO SCH ×2 (09:05→21:10)
[2017-04-26] MEDS: THIAMINE HCL 100 MG TAB PO SCH (09:05)
[2017-04-26] MEDS: FUROSEMIDE 40 MG TAB PO SCH (09:05)
[2017-04-26] MEDS: PERPHENAZINE 2 MG TAB PO SCH ×2 (09:06→21:10)
[2017-04-26] MEDS: METOPROLOL SUCC 50MG EXT REL TAB PO SCH ×2 (09:06→21:09)
[2017-04-26] MEDS: PANTOprazole SOD 40 MG TAB PO SCH (09:08)
[2017-04-26] MEDS: INSULIN GLARGINE SOLOSTAR 100 UNITS/ML 3 ML PEN SQ SCH ×2 (09:45→21:17)
[2017-04-26] MEDS: INSULIN ASPART 100 UNITS/ML 3 ML PEN SQ SCH ×4 (10:00→21:23)
--- NOTE | 2017-04-26 10:27 | Pharmacy Progress Note ---
Glycemic Control Progress Note Date of Service Apr 26, 2017. Scope Glycemic Pharmacist consulted for glycemic control to write orders per [facility] inpatient glycemic control protocol. Objective Accuchecks BSG (last 24hrs): Test 04/25/17 12:04 04/25/17 17:28 04/25/17 20:49 04/26/17 09:00 Bedside Glucose 196 mg/dl (70-90) 183 mg/dl (70-90) 160 mg/dl (70-90) 100 mg/dl (70-90) HbA1c: Test 04/20/17 06:46 Hemoglobin A1c 8.5 % (4.5-5.6) H Outpatient Anti-Diabetic Meds Outpatient Anti-diabetic Regimen: * Lantus 55 units SQ HS + Lispro 15 units TIDM * A1c = 8.5% 04/20/17 Assessment & Plan ASSESSMENT: * See progress note from 04/19/17 for background info, in short: * BSGs have ranged from 100 - 196 mg/dL over the past 24 hours. Pt receiving ~ 130 units of insulin per day * Glycemic control is adequate with current orders. PLAN FOR INPATIENT GLYCEMIC CONTROL: no changes need at this time. * Basal insulin * Lantus 35- 40 units SQ q12 * 35 units for BSG below 140 mg/dL * 40 units for BSG 140 mg/dL or greater * Bolus insulin * NovoLog per scale ACHS * Goal Range: Low 110 mg/dL - High 140 mg/dL * Correction Factor: 10 mg/dL/unit * Nutritional / Prandial insulin per carb ratio of 1 unit per 3 grams CHO consumed RECOMMENDATIONS FOR DISCHARGE: * A1c of 8.5 % (04/19/17) is less than adequate based on patient age. Of note, patient was on prednisone prior to admission, which may alter A1c result. * Continue to titrate home insulin regimen per outpatient provider.
--- NOTE | 2017-04-26 16:07 | Psychiatric Progress Notes ---
Progress Note Date of Service Apr 26, 2017. Interval History 51 year old single - French female from [place], well known to psychiatric service for multiple psych admits and recurrent consults for substance abuse. She was brought to the ED by police on 12/16/16 on a 302 warrant. After an exhaustive stay in ED for bedsearch she was examined by Dr. Holland on 04/20 and felt to be appropriate for 201 admission. Chief Complaint "They are taking my medication away from me". Subjective Patient was seen & assessed interval progress reviewed with nursing. Patient reports that her pain and anxiety have increased and she attributes this to discontinuation of Xanax and tapering of [place]. She reports that she slept better with addition of Elavil. Increased tearfulness. Continues to remain paranoid. Withdrawn in bed. EKG reviewed and QTc has increased from 435 to 472 since addition of Elavil. Review of Systems Psych: denies symptoms other than stated above Constitutional: generalized pain in her back and legs. Cardiovascular: denied GI: denied Neurologic: denied Remainder of 10 body systems also reviewed and denied other than noted above. Sleep Information Total Hours of Sleep: 8.25 Meal Information Percent of Breakfast Consumed: 100 Percent of Lunch Consumed: 100 Percent of Dinner Consumed: 100 Mental Status Exam During interview pt is: alert and oriented, cooperative Appearance: appropriately groomed Eye contact is: fair Motor behavior is: no abnormal motor movements Speech: normal in rate, rhythm & volume Affect: mood congruent Mood is: depressed Thought process: clear, coherent Thought content: paranoid Suicidal thought are: denied Homicidal thoughts are: denied Hallucinations: denies auditory, denies visual Cognition: language grossly intact Intelligence estimated to be: consistent with level of education Insight: impaired Judgement: impaired Impression significant improvement in thought processes and paranoia since my last contact with patient. Residual paranoia/safety concerns but tolerating a roommate and attending to ADLs. Requesting sleep aid Plan (1) Schizoaffective disorder 04/20/17--continue Trilafon retrial, increase to 4 mg BID today, trying to avoid benzos for anxiety 04/21--Increase Trilafon to 8 mg. BID 04/22--Increase perphenazine to 12mg bid for psychosis. Discontinue venlafaxine , as she is refusing it and risks discontinuation symptoms if she is taking it erratically. Once she is less psychotic, we can engage her in a discussion of the medication options for mood. Check another EKG, as initial one was abnormal and showed prolonged QT see a 481. 04/23 - Continue current meds - Attempt to set up meeting with brothers. 04/24 - Increase Trilafon to 16 mg twice a day 04/25 --reviewed most recent EKG, nl QTc, retrial of low dose Elavil for residual sleep and mood difficulties. Reviewed cardiovascular safety profile with patient. Will repeat EKG. 04/26 - QTc has increased from 435 to 472 so will discontinue Elavil. May be related to increased dose of Trilafon so EKG will likely need to be repeated in a few days. (2) Polysubstance (including opioids) dependence, daily use continue AWSS through today, doesn't appear to be in withdrawal but is on Neurontin taper [place] decreased from 5 times a day to 3 times a day here, communication with outpatient prescriber on 04/21 is recommended 04/21 - Not triggering the AWSS and so will DC. - Phone contact with [facility] [phone], where Rebeca only recently started getting treatment. She is scheduled to see them in their [place] Office 03/25/17. Last Rx for [place] was 03/25/17 one tabl 5x daily #150, and was then DC'd. She is only receiving Zanaflex 4 mg. TID from their office per records. 04/22--taper off [place] over the next couple of days, as per her pain management clinic, it has been discontinued. Change Zanaflex to prn, as she has been refusing it. Avoid controlled substances, and coordinate care with her pain management clinic, sending records and ensure a follow-up appointment at discharge. Their staff were already informed about her ongoing alcohol and illicit drug abuse. (3) Diabetes 04/20--pharmacy consult for glycemic control Diabetic/heart healthy diet (4) Elevated troponin 04/20--denies CP 04/21-- Patient has chronically elevated troponins. 04/22--continue cardiac meds, including Toprol-XL, Cardizem (5) HTN (hypertension) 04/22--continue to monitor blood pressure, which has been elevated at times. Continue furosemide, Hyzaar, diltiazem, and Lipitor. (6) Pulmonary embolism Continue Eliquis. 04/22 - patient has been refusing the second dose of Eliquis, stating she was told only to take it once a day. We will need to get records from her PCP to confirm correct dosing. Discharge / Aftercare Planning Primary Care Physician: Name: Dr Nelson Date of Appointment: May 01, 2017 Time of Appointment: 10:45am Psychiatrist: Name: . Phone Number: . Therapist: Name: . Director [place]: Name: Brittney EileenCastro Bethea Date of Appointment: Apr 29, 2017 Time of Appointment: 10:00am Pain Clinic: Name: [facility] PA-C Date of Appointment: May 01, 2017 Time of Appointment: 1:00pm Appointment Notes: . Visit Code E&M Code: 31756 Risk Factors Assessment : No /single/: Yes Higher / Fall in social status: No Access to guns: No (patient refuses to answer whether or not she has a gun, but in the past has denied access to guns) Health problems: Yes Mental Health Diagnoses: Yes Substance use disorders: Yes Previous psychiatric stay: Yes Hopelessness: Yes Smoker: Yes Protective Factors Assessment : No Responsible for young children: No Employed: No Stable relationships: No Supportive family: Yes (says her brother is living with her, but is refusing to allow him to participate in treatment) Good rapport with provider: No Data Vital Signs Last 24 Hrs: Date Time Temp Pulse Resp B/P (MAP) Pulse Ox O2 Delivery O2 Flow Rate FiO2 04/26/17 08:05 36.5 54 18 125/81 71 155/61 04/26/17 07:07 98 Room Air Meds Administered Last 24 Hrs: Meds Administered (Past 24Hrs) Medications (Trade) Dose Ordered Sig/Lucien Route Start Time Stop Time Status Last Admin Dose Admin Perphenazine (Trilafon Tab) 16 mg BID PO 04/24/17 22:00 05/24/17 21:59 04/26/17 09:06 16 MG Amitriptyline HCl (Elavil Tab) 25 mg HS PO 04/25/17 22:00 05/25/17 21:59 04/25/17 21:24 25 MG Lab Results Last 24 Hrs: Last 24 Hours Test 04/25/17 17:28 04/25/17 20:49 04/26/17 09:00 04/26/17 12:16 Bedside Glucose 183 mg/dl 160 mg/dl 100 mg/dl 160 mg/dl Test 04/26/17 15:44 Bedside Glucose 166 mg/dl Problem Qualifiers (1) Schizoaffective disorder: Schizoaffective disorder type: bipolar Qualified Codes: F25.0 - Schizoaffective disorder, bipolar type
[2017-04-26] MEDS ORDERED: NURSING VERBAL MED ORDER ONE (21:45)
[2017-04-27 06:53] VITALS: O2SAT 99
[2017-04-27 08:04] VITALS: BP_SYST 124; BP_SYST 125; BP_DIAS 75; BP_DIAS 76; PULSE 53; PULSE 76; TEMP 36.6
[2017-04-27] MEDS: IPRATROPIUM BROMIDE/ALBUTEROL respimat INH INH SCH ×4 (08:32→21:16)
[2017-04-27] MEDS: DILTIAZEM HCL 300 MG CAPCR PO SCH (08:32)
[2017-04-27] MEDS: PANTOprazole SOD 40 MG TAB PO SCH (08:33)
[2017-04-27] MEDS: APIXABAN 2.5 MG TAB PO SCH ×2 (08:33→20:45)
[2017-04-27] MEDS: FUROSEMIDE 40 MG TAB PO SCH (08:33)
[2017-04-27] MEDS: LOSARTAN/HCTZ 50-12.5 EA TAB PO SCH (08:33)
[2017-04-27] MEDS: METOPROLOL SUCC 50MG EXT REL TAB PO SCH ×2 (08:34→20:45)
[2017-04-27] MEDS: PERPHENAZINE 2 MG TAB PO SCH ×2 (08:34→21:20)
[2017-04-27] MEDS: RANITIDINE HCL 150 MG TAB PO SCH ×2 (08:35→21:20)
[2017-04-27] MEDS: THIAMINE HCL 100 MG TAB PO SCH (08:35)
[2017-04-27] MEDS: ATORVASTATIN 40 MG TAB PO SCH (08:40)
[2017-04-27] MEDS: INSULIN GLARGINE SOLOSTAR 100 UNITS/ML 3 ML PEN SQ SCH ×2 (08:46→21:24)
[2017-04-27] MEDS: INSULIN ASPART 100 UNITS/ML 3 ML PEN SQ SCH ×4 (08:48→21:27)
--- NOTE | 2017-04-27 12:30 | Psychiatric Progress Notes ---
Progress Note Date of Service Apr 27, 2017. Interval History 51 year old single - Dominican female from [place], well known to psychiatric service for multiple psych admits and recurrent consults for substance abuse. She was brought to the ED by police on 12/16/16 on a 302 warrant. After an exhaustive stay in ED for bedsearch she was examined by Dr. Holland on 04/20 and felt to be appropriate for 201 admission. Chief Complaint "Do I get my pain meds back?" Subjective Patient was seen & assessed interval progress reviewed with Nursing. Patient reports that she has ongoing back and leg pain. Slept better last night despite not taking Elavil. Tolerating medications well. Decreased paranoia. Continues to withdraw and isolate in her room. Patient raised concern about her perception of weight gain from previous medication trials and she raised consideration of Topamax to help offset weight gain and mood stabilization. Review of Systems Psych: denies symptoms other than stated above Constitutional: Slept almost 7 hours but patient reports that sleep was disturbed by back pain waking her. Cardiovascular: denied GI: denied Neurologic: denied Remainder of 10 body systems also reviewed and denied other than noted above. Sleep Information Total Hours of Sleep: 6.75 Meal Information Percent of Breakfast Consumed: 75 Percent of Lunch Consumed: 100 Percent of Dinner Consumed: 100 Mental Status Exam During interview pt is: alert and oriented, cooperative Appearance: appropriately groomed Eye contact is: fair Motor behavior is: no abnormal motor movements Speech: normal in rate, rhythm & volume Affect: mood congruent Mood is: depressed Thought process: clear, coherent Thought content: paranoid Suicidal thought are: denied Homicidal thoughts are: denied Hallucinations: denies auditory, denies visual Cognition: language grossly intact Intelligence estimated to be: consistent with level of education Insight: impaired Judgement: impaired Impression significant improvement in thought processes and paranoia since my last contact with patient. Residual paranoia/safety concerns but tolerating a roommate and attending to ADLs. Requesting sleep aid Plan (1) Schizoaffective disorder 04/20/17--continue Trilafon retrial, increase to 4 mg BID today, trying to avoid benzos for anxiety 04/21--Increase Trilafon to 8 mg. BID 04/22--Increase perphenazine to 12mg bid for psychosis. Discontinue venlafaxine , as she is refusing it and risks discontinuation symptoms if she is taking it erratically. Once she is less psychotic, we can engage her in a discussion of the medication options for mood. Check another EKG, as initial one was abnormal and showed prolonged QT see a 481. 04/23 - Continue current meds - Attempt to set up meeting with brothers. 04/24 - Increase Trilafon to 16 mg twice a day 04/25 --reviewed most recent EKG, nl QTc, retrial of low dose Elavil for residual sleep and mood difficulties. Reviewed cardiovascular safety profile with patient. Will repeat EKG. 04/26 - QTc has increased from 435 to 472 so will discontinue Elavil. May be related to increased dose of Trilafon so EKG will likely need to be repeated in a few days. 04/27 - Initiate Topamax to help further stabilize mood and to offset some of her perceived weight gain from medications. (2) Polysubstance (including opioids) dependence, daily use continue AWSS through today, doesn't appear to be in withdrawal but is on Neurontin taper [place] decreased from 5 times a day to 3 times a day here, communication with outpatient prescriber on 04/21 is recommended 04/21 - Not triggering the AWSS and so will DC. - Phone contact with [facility] [phone], where Rebeca only recently started getting treatment. She is scheduled to see them in their [place] Office 03/25/17. Last Rx for [place] was 03/25/17 one tabl 5x daily #150, and was then DC'd. She is only receiving Zanaflex 4 mg. TID from their office per records. 04/22--taper off [place] over the next couple of days, as per her pain management clinic, it has been discontinued. Change Zanaflex to prn, as she has been refusing it. Avoid controlled substances, and coordinate care with her pain management clinic, sending records and ensure a follow-up appointment at discharge. Their staff were already informed about her ongoing alcohol and illicit drug abuse. (3) Diabetes 04/20--pharmacy consult for glycemic control Diabetic/heart healthy diet (4) Elevated troponin 04/20--denies CP 04/21-- Patient has chronically elevated troponins. 04/22--continue cardiac meds, including Toprol-XL, Cardizem (5) HTN (hypertension) 04/22--continue to monitor blood pressure, which has been elevated at times. Continue furosemide, Hyzaar, diltiazem, and Lipitor. (6) Pulmonary embolism Continue Eliquis. 04/22 - patient has been refusing the second dose of Eliquis, stating she was told only to take it once a day. We will need to get records from her PCP to confirm correct dosing. Discharge / Aftercare Planning Primary Care Physician: Name: Dr Nelson Date of Appointment: May 01, 2017 Time of Appointment: 10:45am Psychiatrist: Name: . Phone Number: . Therapist: Name: . Director Of Casino Marketing: Name: Brittney Bethea Date of Appointment: Apr 29, 2017 Time of Appointment: 10:00am Pain Clinic: Name: [facility] PA-C Date of Appointment: May 01, 2017 Time of Appointment: 1:00pm Appointment Notes: . Visit Code E&M Code: 84289 Risk Factors Assessment : No /single/: Yes Higher / Fall in social status: No Access to guns: No (patient refuses to answer whether or not she has a gun, but in the past has denied access to guns) Health problems: Yes Mental Health Diagnoses: Yes Substance use disorders: Yes Previous psychiatric stay: Yes Hopelessness: Yes Smoker: Yes Protective Factors Assessment : No Responsible for young children: No Employed: No Stable relationships: No Supportive family: Yes (says her brother is living with her, but is refusing to allow him to participate in treatment) Good rapport with provider: No Data Vital Signs Last 24 Hrs: Date Time Temp Pulse Resp B/P (MAP) Pulse Ox O2 Delivery O2 Flow Rate FiO2 04/27/17 08:04 36.6 53 16 124/76 76 125/75 04/27/17 06:53 99 Nasal Cannula 2.0 Meds Administered Last 24 Hrs: Meds Administered (Past 24Hrs) Medications (Trade) Dose Ordered Sig/Lucien Route Start Time Stop Time Status Last Admin Dose Admin Amitriptyline HCl (Elavil Tab) 25 mg HS PO 04/25/17 22:00 04/26/17 21:52 DC 04/25/17 21:24 25 MG Lab Results Last 24 Hrs: Last 24 Hours Test 04/26/17 15:44 04/26/17 20:26 04/27/17 07:51 Bedside Glucose 166 mg/dl 147 mg/dl 128 mg/dl Problem Qualifiers (1) Schizoaffective disorder: Schizoaffective disorder type: bipolar Qualified Codes: F25.0 - Schizoaffective disorder, bipolar type
[2017-04-27 20:45] VITALS: BP 119/77; PULSE 57
[2017-04-27] MEDS: TOPIRAMATE 50 MG TAB PO SCH (21:20)
[2017-04-28 06:56] VITALS: O2SAT 98
[2017-04-28 08:02] VITALS: BP_SYST 127; BP_SYST 146; BP_DIAS 79; BP_DIAS 88; PULSE 57; PULSE 79; TEMP 37
[2017-04-28] MEDS: IPRATROPIUM BROMIDE/ALBUTEROL respimat INH INH SCH ×2 (08:36→11:31)
[2017-04-28] MEDS: APIXABAN 2.5 MG TAB PO SCH (08:37)
[2017-04-28] MEDS: LOSARTAN/HCTZ 50-12.5 EA TAB PO SCH (08:37)
[2017-04-28] MEDS: DILTIAZEM HCL 300 MG CAPCR PO SCH (08:37)
[2017-04-28] MEDS: FUROSEMIDE 40 MG TAB PO SCH (08:37)
[2017-04-28] MEDS: METOPROLOL SUCC 50MG EXT REL TAB PO SCH (08:38)
[2017-04-28] MEDS: PANTOprazole SOD 40 MG TAB PO SCH (08:38)
[2017-04-28] MEDS: TOPIRAMATE 50 MG TAB PO SCH (08:38)
[2017-04-28] MEDS: PERPHENAZINE 2 MG TAB PO SCH (08:39)
[2017-04-28] MEDS: RANITIDINE HCL 150 MG TAB PO SCH (08:40)
[2017-04-28] MEDS: THIAMINE HCL 100 MG TAB PO SCH (08:40)
[2017-04-28] MEDS: ATORVASTATIN 40 MG TAB PO SCH (08:45)
[2017-04-28] MEDS: INSULIN GLARGINE SOLOSTAR 100 UNITS/ML 3 ML PEN SQ SCH (09:17)
[2017-04-28] MEDS: INSULIN ASPART 100 UNITS/ML 3 ML PEN SQ SCH (09:19)
[2017-04-28] MEDS: LACTULOSE SYRUP 20 GM/30 ML UDC PO PRN (09:27)
[2017-04-28] MEDS ORDERED: [UNRECOGNIZED DRUG - CODE] PO (10:13)
[2017-04-28] MEDS ORDERED: TPM/50 PO (10:13)
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
== END 2017-04-28 12:04 | disposition home or self-care (01) | DRG 885 ==
LOC: EDBD 20:22 → C.EDA 20:24 → C.MHU 04-19 12:08 → CMPBEDREQ 04-19 12:31
PROVIDERS: ADMIT Psychiatry & Neurology Child & Adolescent Psychiatry; ATTEND Psychiatry & Neurology Child & Adolescent Psychiatry
DX: F25.0 Schizoaffective disorder, bipolar type (principal); R45.851 Suicidal ideations; F14.20 Cocaine dependence, uncomplicated; F13.20 Sedative, hypnotic or anxiolytic dependence, uncomplicated; F11.20 Opioid dependence, uncomplicated; I50.42 Chronic combined systolic (congestive) and diastolic (congestive) heart failure; Z68.42 Body mass index [BMI] 45.0-49.9, adult; F41.9 Anxiety disorder, unspecified; F60.2 Antisocial personality disorder; R74.8 Abnormal levels of other serum enzymes; F10.20 Alcohol dependence, uncomplicated; E11.42 Type 2 diabetes mellitus with diabetic polyneuropathy; I11.0 Hypertensive heart disease with heart failure; J44.9 Chronic obstructive pulmonary disease, unspecified; I48.0 Paroxysmal atrial fibrillation; G47.30 Sleep apnea, unspecified; G89.29 Other chronic pain; M19.90 Unspecified osteoarthritis, unspecified site; F17.200 Nicotine dependence, unspecified, uncomplicated; E66.01 Morbid (severe) obesity due to excess calories; Z91.14 Patient's other noncompliance with medication regimen; Z53.29 Procedure and treatment not carried out because of patient's decision for other reasons; I25.2 Old myocardial infarction; Z91.410 Personal history of adult physical and sexual abuse; Z76.5 Malingerer [conscious simulation]; Z81.8 Family history of other mental and behavioral disorders; Z91.5 Personal history of self-harm; Z79.01 Long term (current) use of anticoagulants; Z79.4 Long term (current) use of insulin; Z79.51 Long term (current) use of inhaled steroids; Z79.52 Long term (current) use of systemic steroids; Z79.899 Other long term (current) drug therapy

== ENCOUNTER 2017-06-30 19:06 | Inpatient (IN) | payer OTHER ==
[~2017-06-30] VITALS: Ht 167.6 cm; Wt 129.1 kg
[~2017-06-30 19:06] MED LIST changes: -CEFU1TAB36 PO; -HYDR-4079 PO; +INSU100I23 SQ; +IPRA-64 INH; -IPRASOL4 INH; -LACT10SO17 PO; +LACT10SO3 PO; +MOME200A INH; +NVLG SQ; -PRED10TA PO; +TPM/50 PO; -TRAZ100T29 PO; -VENL75CA PO
[2017-06-30 19:32] VITALS: O2SAT 97
[2017-06-30] MEDS ORDERED: FAMOTIDINE 20MG/5ML IV PUSH IV STA (19:36)
[2017-06-30] MEDS ORDERED: ACETAMINOPHEN 500 MG TAB PO STA (19:36)
[2017-06-30] MEDS ORDERED: METHYLPREDNISOLONE 125 MG VIAL IV STA (19:36)
[2017-06-30] MEDS ORDERED: ALBUT/IPRATROP 3MG/0.5MG NEB 3 ML VIAL INH ONE ×2 (19:45→23:15)
--- NOTE | 2017-06-30 19:53 | DIAGNOSTIC IMAGING REPORT ---
SINGLE VIEW CHEST CLINICAL HISTORY: Atypical chest pain. FINDINGS: An AP, portable, upright chest radiograph is compared to study dated 04/17/2017. The examination is degraded by portable technique and large body habitus. The cardiomediastinal silhouette is unremarkable. The lungs and pleural spaces are clear. No pneumothorax is seen. The bony thorax is grossly intact. Arthritic change is noted in the shoulders. IMPRESSION: No active disease in the chest. Electronically signed by: Valerio Copeland M.D. 06/30/2017 7:52 PM Dictated Date/Time: 06/30/2017 7:51 PM
[2017-06-30 20:24] VITALS: PULSE 103; O2SAT 96
--- NOTE | 2017-06-30 20:41 | EMERGENCY ROOM VISIT NOTE ---
History Report prepared by Domenico: Jesika Meeks Under the Supervision of: Dr. Maik Jack M.D. First contact with patient: 19:32 Chief Complaint: ILLNESS Stated Complaint: L ARM PAIN INTO SHOULDER History of Present Illness The patient is a 51 year old female who presents to the Emergency Room with complaints of a worsening illness starting a few days ago. The patient states that she has had a cold for a few days. She complains of cough and congestion. She notes that recently she started to get left shoulder pain that has radiated to her ribs, neck, and chest. She states that she thinks it may be from coughing so much. The patient complains of feeling weak, nausea, diarrhea, abdominal cramping, bumps by her tongue, difficulty chewing, and vomiting mucus. The patient denies being around anyone who is sick, falling, burning with urination, and having a fever. The patient notes a history of COPD, diabetes, and increased protein in her urine. She notes that recently her urine has been very bubbly and her eyes have been red. The patient notes that she has been taking her inhaler and takes Eliquis. She notes that she normally smokes 8 cigarettes a day, but only had one today. The patient also notes that she is being treated for swollen ligaments in her shoulder by her PCP. Source of History: patient Onset: a few days ago Position: other (global) Quality: other (cold like symptoms) Timing: worsening Associated Symptoms: + cough, + neck pain, + chest pain, + nausea, + vomiting, + abdominal pain, + diarrhea, + weakness, No fevers, No urinary symptoms Note: The patient complains of congestion, left shoulder pain, left rib pain, bumps by her tongue, and difficulty chewing. Review of Systems See HPI for pertinent positives and negatives. A total of ten systems were reviewed and were otherwise negative. Past Medical & Surgical Medical Problems: (1) Acute bronchitis (2) Afib (3) Alcohol abuse (4) Atrial fibrillation (5) Benzodiazepine abuse (6) Cellulitis of leg, right (7) Chronic generalized pain disorder (8) Cocaine abuse (9) copd exac, pna (10) copd exac, pna (11) COPD with acute exacerbation (12) COPD with exacerbation (13) Depression (14) Diabetes (15) Diabetes (16) Edema (17) Fatty liver (18) HTN (hypertension) (19) Influenza B (20) Left foot pain (21) Major depression (22) Neuropathy (23) NSTEMI, initial episode of care (24) Obesity (25) Opiate addiction (26) Ovarian cyst (27) Palpitations (28) past psych meds (29) Past Psych Meds (30) Personality disorder (31) Polysubstance (including opioids) dependence, daily use (32) Schizoaffective disorder (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 (34) Sleep apnea (35) Suicide attempt Surgical Problems: (1) H/O foot surgery (2) H/O ovarian cystectomy Social History Problems: (1) ETOH abuse Family History Heart disease Social History Smoking Status: Former Smoker Alcohol Use: occasionally Drug Use: cocaine Marital Status: single Housing Status: lives with family Occupation Status: disabled Current/Historical Medications Scheduled Apixaban (Eliquis), 5 MG PO BID Atorvastatin (Lipitor), 40 MG PO HS Azithromycin (Zithromax), 250 MG PO DAILY Diltiazem Hcl Coated Beads (Cartia Xt), 300 MG PO DAILY Furosemide (Furosemide), 40 MG PO QAM Hctz/Losartan (Hyzaar 12.5MG/50MG), 1 TAB PO QAM Insulin Aspart (Novolog), 15 UNITS SQ TIDM Insulin Glargine (Basaglar Kwikpen), 55 UNITS SQ HS Ipratropium-Albuterol (Combivent Respimat), 1 PUFFS INH QID Metoprolol Succ (Toprol Xl) (Toprol-Xl ), 100 MG PO QAM Mometasone Furoate-Formoterol (Dulera 200/5 Mcg), 2 PUFFS INH BID Omeprazole (Prilosec), 20 MG PO QAM Prednisone (Prednisone), 3 TAB PO DAILY Ranitidine HCl (Ranitidine HCl), 150 MG PO BID Tizanidine (Tizanidine HCl), 4 MG PO TID Valacyclovir HCl (Valacyclovir HCl), 500 MG PO QAM Scheduled PRN Albuterol Hfa (Ventolin Hfa), 2 PUFFS INH Q6H PRN for SOB/Wheezing Albuterol Sulf (Proventil 0.083% 2.5MG/3ML), 2.5 MG INH QID PRN for Wheezing Ipratropium-Albuterol (Duoneb), 1 TREATMENT INH Q6H PRN for Shortness of Breath Lactulose (Chronulac), 20 GM PO DAILY PRN for Constipation Loratadine (Claritin), 10 MG PO DAILY PRN for PRN Allergies Coded Allergies: Haloperidol (Verified Allergy, Severe, TONGUE SWELLING, 06/30/17) Margarine (Verified Allergy, Severe, RASH, 06/30/17) Pt reported an allergy to butter & margarine (causes swelling), though stated she is not allergic to milk. Citalopram (Verified Allergy, Unknown, ITCHING, 06/30/17) Insulin Lispro (Unverified Allergy, Unknown, HIVES, 06/30/17) Penicillins (Verified Allergy, Unknown, UNKNOWN, 06/30/17) PER [facility] IN [facility] Phenol (Unverified Allergy, Unknown, HIVES, 06/30/17) Sulfamethoxazole w/Trimethoprim (Verified Allergy, Unknown, RASH, 06/30/17) Morphine (Verified Adverse Reaction, Mild, HEADACHE, 06/30/17) Oxycodone (Verified Adverse Reaction, Unknown, ITCH, 06/30/17) Topiramate (Unverified Adverse Reaction, Unknown, SEIZURE LIKE ACTIVITY, ) Physical Exam Vital Signs Date Time Temp Pulse Resp B/P (MAP) Pulse Ox O2 Delivery O2 Flow Rate FiO2 07/01/17 04:30 94 20 139/104 95 Room Air 07/01/17 02:45 101 20 129/90 95 Room Air 07/01/17 01:11 98 18 94 Room Air 06/30/17 23:46 94 22 96 Room Air 06/30/17 23:01 124/90 06/30/17 23:00 96 21 06/30/17 22:06 98 21 93 Room Air 06/30/17 22:05 124/82 06/30/17 21:36 98 26 95 06/30/17 21:31 136/100 06/30/17 21:06 90 23 100 06/30/17 20:49 94 18 120/86 100 Mask Nebulizer 06/30/17 20:31 118/107 06/30/17 20:24 103 24 96 Room Air 06/30/17 19:36 89 17 97 06/30/17 19:34 88 06/30/17 19:32 97 Room Air 06/30/17 19:31 162/98 06/30/17 19:29 36.7 101 20 162/98 97 Room Air Physical Exam GENERAL: Awake, alert, uncomfortable appearing, in no distress HENT: Normocephalic, atraumatic. Oropharynx unremarkable. EYES: Normal conjunctiva. Sclera non-icteric. NECK: Supple. No nuchal rigidity. FROM. No JVD. RESPIRATORY: Diffuse rhonchi and wheezes throughout lung landry. CARDIAC: IRIR. Extremities warm and well perfused. Pulses equal. ABDOMEN: Soft, non-distended. Mild epigastric discomfort to palpation. No peritoneal signs. No rebound or guarding. No masses. RECTAL: Deferred. MUSCULOSKELETAL: Mild tenderness to the anterior lateral chest wall. The back is symmetrical on inspection without obvious abnormality. There is no CVA tenderness to palpation. No joint edema. LOWER EXTREMITIES: Calves are equal size bilaterally and non-tender. No edema. No discoloration. NEURO: Normal sensorium. No sensory or motor deficits noted. SKIN: No rash or jaundice noted. Medical Decision & Procedures ER Provider Diagnostic Interpretation: Radiology results as stated below per my review and radiologist interpretation: SINGLE VIEW CHEST CLINICAL HISTORY: Atypical chest pain. FINDINGS: An AP, portable, upright chest radiograph is compared to study dated 04/17/2017. The examination is degraded by portable technique and large body habitus. The cardiomediastinal silhouette is unremarkable. The lungs and pleural spaces are clear. No pneumothorax is seen. The bony thorax is grossly intact. Arthritic change is noted in the shoulders. IMPRESSION: No active disease in the chest. Electronically signed by: Valerio Copeland M.D. 06/30/2017 7:52 PM Dictated Date/Time: 06/30/2017 7:51 PM Laboratory Results 06/30/17 20:42 Red Blood Count 4.49, Mean Corpuscular Volume 92.0, Mean Corpuscular Hemoglobin 31.6, Mean Corpuscular Hemoglobin Concent 34.4, Mean Platelet Volume 10.6, Neutrophils (%) (Auto) 49.4, Lymphocytes (%) (Auto) 38.6, Monocytes (%) (Auto) 8.0, Eosinophils (%) (Auto) 3.2, Basophils (%) (Auto) 0.5, Neutrophils # (Auto) 3.27, Lymphocytes # (Auto) 2.55, Monocytes # (Auto) 0.53, Eosinophils # (Auto) 0.21, Basophils # (Auto) 0.03 06/30/17 20:42 Test 06/30/17 20:42 07/01/17 02:32 07/01/17 03:30 07/01/17 03:39 White Blood Count 6.61 K/uL (4.8-10.8) Red Blood Count 4.49 M/uL (4.2-5.4) Hemoglobin 14.2 g/dL (12.0-16.0) Hematocrit 41.3 % (37-47) Mean Corpuscular Volume 92.0 fL (80-100) Mean Corpuscular Hemoglobin 31.6 pg (25-34) Mean Corpuscular Hemoglobin Concent 34.4 g/dl (32-36) Platelet Count 226 K/uL (130-400) Mean Platelet Volume 10.6 fL (7.4-10.4) Neutrophils (%) (Auto) 49.4 % Lymphocytes (%) (Auto) 38.6 % Monocytes (%) (Auto) 8.0 % Eosinophils (%) (Auto) 3.2 % Basophils (%) (Auto) 0.5 % Neutrophils # (Auto) 3.27 K/uL (1.4-6.5) Lymphocytes # (Auto) 2.55 K/uL (1.2-3.4) Monocytes # (Auto) 0.53 K/uL (0.11-0.59) Eosinophils # (Auto) 0.21 K/uL (0-0.5) Basophils # (Auto) 0.03 K/uL (0-0.2) RDW Standard Deviation 46.8 fL (36.4-46.3) RDW Coefficient of Variation 13.9 % (11.5-14.5) Immature Granulocyte % (Auto) 0.3 % Immature Granulocyte # (Auto) 0.02 K/uL (0.00-0.02) Anion Gap 7.0 mmol/L (3-11) Estimated GFR () 70.7 Estimated GFR (Non- 61.0 BUN/Creatinine Ratio 10.4 (10-20) Calcium Level 9.1 mg/dl (8.5-10.1) Total Bilirubin 0.4 mg/dl (0.2-1) Direct Bilirubin < 0.1 mg/dl (0-0.2) Aspartate Amino Transf (AST/SGOT) 9 U/L (15-37) Alanine Aminotransferase (ALT/SGPT) 26 U/L (12-78) Alkaline Phosphatase 120 U/L (45-117) Troponin I 0.163 ng/ml (0-0.045) Pro-B-Type Natriuretic Peptide 517 pg/ml (0-900) Total Protein 7.5 gm/dl (6.4-8.2) Albumin 3.3 gm/dl (3.4-5.0) Lipase 257 U/L (73-393) Thyroid Stimulating Hormone (TSH) 1.040 uIu/ml (0.300-4.500) Influenza Type A (RT-PCR) Neg for Influ A (NEG) Influenza Type A Antigen Neg for Influ A (NEG) Influenza Type B Antigen Neg for Influ B (NEG) Influenza Type B (RT-PCR) Neg for Influ B (NEG) Ethyl Alcohol mg/dL < 3.0 mg/dl (0-3) Urine Color YELLOW Urine Appearance CLEAR (CLEAR) Urine pH 5.5 (4.5-7.5) Urine Specific [place] 1.020 (1.000-1.030) Urine Protein NEG (NEG) Urine Glucose (UA) 3+ (NEG) Urine Ketones 1+ (NEG) Urine Occult Blood NEG (NEG) Urine Nitrite NEG (NEG) Urine Bilirubin NEG (NEG) Urine Urobilinogen NEG (NEG) Urine Leukocyte Esterase NEG (NEG) Urine Opiates Screen NEG (NEG) Urine Methadone, Qualitative NEG (NEG) Urine Barbiturates NEG (NEG) Urine Phencyclidine (PCP) Level NEG (NEG) Ur Amphetamine/Methamphetamine NEG (NEG) MDMA (Ecstasy) Screen NEG (NEG) Urine Benzodiazepines Screen NEG (NEG) Urine Cocaine Metabolite NEG (NEG) Urine Marijuana (THC) NEG (NEG) Bedside Glucose 393 mg/dl (70-90) Laboratory results reviewed by me Medications Administered Medications (Trade) Dose Ordered Sig/Lucien Route Start Time Stop Time Status Last Admin Dose Admin Albuterol/ Ipratropium (Duoneb) 12 ml ONE ONCE INH 06/30/17 19:45 06/30/17 19:46 DC 06/30/17 20:22 12 ML Methylprednisolone Sodium Succinate (Solu-Medrol IV) 125 mg NOW STAT IV 06/30/17 19:36 06/30/17 19:42 DC 06/30/17 20:37 125 MG Famotidine (Pepcid 20mg Iv Push) 20 mg NOW STAT IV 06/30/17 19:36 06/30/17 19:43 DC 06/30/17 20:37 20 MG Acetaminophen (Tylenol Tab) 1,000 mg NOW STAT PO 06/30/17 19:36 06/30/17 19:43 DC 06/30/17 20:38 1,000 MG Azithromycin (Zithromax Tab) 500 mg NOW ONCE PO 06/30/17 21:30 06/30/17 21:31 DC 06/30/17 22:04 500 MG Sodium Chloride 1,000 ml @ 999 mls/hr Q1H1M STAT IV 06/30/17 21:29 06/30/17 22:29 DC 06/30/17 22:04 999 MLS/HR Albuterol/ Ipratropium (Duoneb) 12 ml ONE ONCE INH 06/30/17 23:15 06/30/17 23:17 DC 06/30/17 23:41 12 ML Trazodone HCl (Desyrel Tab) 50 mg NOW ONCE PO 07/01/17 04:00 07/01/17 04:01 DC 07/01/17 05:04 50 MG Insulin Glargine (Lantus Per Unit) 55 units NOW STAT SC 07/01/17 03:49 07/01/17 03:58 DC 07/01/17 05:02 55 UNITS Insulin Aspart (novoLOG ASPART) 15 units NOW STAT SC 07/01/17 03:49 07/01/17 03:58 DC 07/01/17 05:03 15 UNITS ECG Indication: chest pain Rate (beats per minute): 88 Rhythm: atrial fibrillation Findings: no acute ischemic change, other (normal axis) ED Course 1934: The patient was evaluated in room C7. A complete history and physical exam was performed. 2310: I reevaluated the patient an she is doing better, but still does not feel great. We are going to watch her a little longer. 0012: The nurse notified me that the patient has been feeling suicidal and that if she had a plan she would not notify nursing staff. Psych is going to see her. 0046: I reevaluated the patient and she states that she does have waxing and waning thoughts of wanting to hurt herself. She states that she does feel it is necessary for her to be admitted for her thoughts. 0116: I reevaluated the patient and she states that she will sign in voluntarily to mental health. She states that she has had waxing and waning thoughts of wanting to hurt herself while here. 0230: The patient was signed out to Dr. Johnson awaiting bed search. Medical Decision I reviewed the patient's past medical history, medications, and the nursing notes as described above. Differential diagnosis: Etiologies such as infections, reactive airway disease, pneumonia, pneumothorax , COPD, CHF, cardiac ischemia, pulmonary embolism, musculoskeletal, gastrointestinal, as well as others were entertained. Patient is a 51-year-old woman with a past medical history of Afib on Eliquis, COPD on 2L home O2, chronic troponin elevation, cocaine abuse, h/o depression and suicidality who presents emergency Department with worsening cough congestion shortness of breath for the past several days and then developed left chest wall tenderness in the setting of her coughing per hpi. While the patient is uncomfortable but in no acute distress, afebrile with stable vital signs. She has generalized rhonchi and wheezing throughout. Treated with solumedrol, nebs on arrival. Troponin mildly elevated and similar to her chronic elevations. EKG afib without evidence of acute ischemia. Labs otherwise unremarkable including WBC wnl. CXR negative. Given Azithro given patient's sputum production. Patient feeling mildly improved but requesting second nebulizer. Had additional improvement in lungs sounds. However, at this point patient then expressed to staff and to me that she has been having waxing and waning thoughts of wanting to kill herself. Of note, she did vary in her story of whether or note she was experiencing SI at this moment but eventually expressed to me that she did indeed have SI. Psych CM evaluated patient and referral made. Pending placement. Signed to Dr. Johnson. Medication Reconcilliation Current Medication List: was personally reviewed by me Blood Pressure Screening Patient's blood pressure: Normal blood pressure Blood pressure disposition: Did not require urgent referral Impression Primary Impression: Bronchitis Additional Impression: Suicidal ideation Scribe Attestation The scribe's documentation has been prepared under my direction and personally reviewed by me in its entirety. I confirm that the note above accurately reflects all work, treatment, procedures, and medical decision making performed by me. Departure Information Dispostion Still a Patient Prescriptions Azithromycin (Zithromax) 250 Mg Tab 250 MG PO DAILY, #4 TAB Prov: Maik Jack M.D. 07/01/17 Prednisone (Prednisone) 20 Mg Tab 3 TAB PO DAILY for 4 Days, #12 TAB FOR 4 DAYS Prov: Maik Jack M.D. 07/01/17 Referrals No Doctor, Assigned (PCP) Patient Instructions ED COPD Flare, My [facility], Suicide Warning Signs Self Additional Instructions Please follow up with your primary care physician in the next 1-3 days for re- evaluation. You were treated for a COPD exacerbation. Otherwise, your exam, EKG, chest xray, and lab results did not show signs of an emergent condition at this time. You also expressed you were having intermittent thoughts of suicide and voluntarily requested psychiatric admission and your referral was placed. Return to the emergency department for worsening symptoms as described in the accompanying instructions. Problem Qualifiers
[2017-06-30 20:51] LABS: BASO % 0.5 %; BASO ABS # 0.03 K/uL (0-0.2); EOS % 3.2 %; EOS ABS # 0.21 K/uL (0-0.5); HEMATOCRIT 41.3 % (37-47); HEMOGLOBIN 14.2 g/dL (12.0-16.0); IG# 0.02 K/uL (0.00-0.02); LYMPH % 38.6 %; LYMPH ABS # 2.55 K/uL (1.2-3.4); MEAN CORPUSCULAR HEMOGLOBIN 31.6 pg (25-34); MEAN CORPUSCULAR HGB CONC 34.4 g/dl (32-36); MEAN PLATELET VOLUME 10.6 fL (7.4-10.4); MONO ABS # 0.53 K/uL (0.11-0.59); NEUT % 49.4 %; NEUT ABS # 3.27 K/uL (1.4-6.5); PLATELET COUNT 226 K/uL (130-400); RED CELL DISTRIBUTION WIDTH CV 13.9 % (11.5-14.5); RED CELL DISTRIBUTION WIDTH SD 46.8 fL (36.4-46.3); WHITE BLOOD COUNT 6.61 K/uL (4.8-10.8)
[2017-06-30 21:12] LABS: ALBUMIN 3.3 gm/dl (3.4-5.0); ALT/SGPT 26 U/L (12-78); BLOOD UREA NITROGEN 11 mg/dl (7-18); CALCIUM 9.1 mg/dl (8.5-10.1); CARBON DIOXIDE 27 mmol/L (21-32); CREATININE 1.05 mg/dl (0.60-1.20); GLUCOSE 200 mg/dl (70-99); LIPASE 257 U/L (73-393); POTASSIUM 3.5 mmol/L (3.5-5.1); SODIUM 134 mmol/L (136-145)
[2017-06-30] MEDS ORDERED: SODIUM CHLORIDE 0.9% 1000ML 1,000 ML IV STA (21:29)
[2017-06-30] MEDS ORDERED: AZITHROMYCIN 250 MG TAB PO ONE (21:30)
[2017-06-30 21:34] LABS: ALKALINE PHOSPHATASE 120 U/L (45-117); AST/SGOT 9 U/L (15-37); TOTAL PROTEIN 7.5 gm/dl (6.4-8.2)
[2017-06-30 22:15] LABS: INFLUENZA A PCR Neg for Influ A (NEG); INFLUENZA B ANTIGEN Neg for Influ B (NEG); INFLUENZA B PCR Neg for Influ B (NEG)
[2017-06-30 23:46] VITALS: PULSE 94; O2SAT 96
[2017-07-01] MEDS ORDERED: PRED20TA PO (02:57)
[2017-07-01] MEDS ORDERED: AZIT250T PO (02:57)
[2017-07-01] MEDS ORDERED: APIXABAN 2.5 MG TAB PO STA ×2 (03:49→07:37)
[2017-07-01] MEDS ORDERED: ATORVASTATIN 40 MG TAB PO STA (03:49)
[2017-07-01] MEDS ORDERED: LANTUS PER UNIT CHARGE SC STA (03:49)
[2017-07-01] MEDS ORDERED: INSULIN ASPART 100 UNITS/ML 3 ML PEN SC STA (03:49)
[2017-07-01] MEDS ORDERED: TRAZODONE HCL 50 MG TAB PO ONE (04:00)
[2017-07-01] MEDS ORDERED: METOPROLOL SUCC 50MG EXT REL TAB PO STA (07:37)
[2017-07-01] MEDS ORDERED: MOMETASONE FUROATE 14 PUFF/1 INHALER INH STA (07:37)
[2017-07-01] MEDS ORDERED: LOSARTAN/HCTZ 50-12.5 EA TAB PO STA (07:37)
--- NOTE | 2017-07-01 07:42 | EMERGENCY ROOM VISIT NOTE ---
ED Visit Note First contact with patient: 07:42 Patient signed out to me by Dr. strickland. No issues reportedly overnight. Patient be signed out to Dr. Rodríguez, awaiting placement.
[2017-07-01] MEDS ORDERED: RANITIDINE HCL 150 MG TAB PO ONE (07:45)
[2017-07-01] MEDS ORDERED: FUROSEMIDE 40 MG TAB PO ONE (07:45)
[2017-07-01] MEDS ORDERED: NURSING VERBAL MED ORDER ONE ×2 (08:00→17:15)
[2017-07-01] MEDS ORDERED: DILTIAZEM HCL 300 MG CAPCR PO ONE (08:30)
[2017-07-01] MEDS ORDERED: PANTOprazole SOD 40 MG TAB PO ONE (08:30)
[2017-07-01] MEDS ORDERED: ALBUT/IPRATROP 3MG/0.5MG NEB 3 ML VIAL INH SCH (09:00)
[2017-07-01] MEDS ORDERED: ACETAMINOPHEN 500 MG TAB PO STA (09:20)
[2017-07-01] MEDS ORDERED: PERP1TAB8 PO (11:38)
[2017-07-01] MEDS ORDERED: TRAZ1TAB52 PO (11:38)
--- NOTE | 2017-07-01 11:51 | EMERGENCY ROOM VISIT NOTE ---
ED Visit Note No issues. Patient admitted to 3[facility].
[2017-07-01] MEDS ORDERED: ALBUT/IPRATROP 3MG/0.5MG NEB 3 ML VIAL INH PRN ×2 (12:00→13:45)
[2017-07-01] MEDS ORDERED: LORATADINE 10 MG TAB PO PRN (12:00)
[2017-07-01] MEDS ORDERED: BISMUTH SUBSALICYLATE PER ML OMNICELL CHARGE PO PRN (12:00)
[2017-07-01] MEDS ORDERED: TRAZODONE HCL 50 MG TAB PO PRN (12:00)
[2017-07-01] MEDS ORDERED: ALBUTEROL 0.083% NEBU SOLN 3 ML VIAL INH PRN (12:00)
[2017-07-01] MEDS ORDERED: LACTULOSE SYRUP 20 GM/30 ML UDC PO PRN (12:00)
[2017-07-01] MEDS ORDERED: ALUMINUM/MAGNESIUM SUSP 30 ML UDC PO PRN (12:00)
[2017-07-01] MEDS ORDERED: hydrOXYzine HCL 25 MG TAB PO PRN ×2 (12:00)
[2017-07-01] MEDS ORDERED: MAGNESIUM HYDROXIDE SUSP 30 ML UDC PO PRN (12:00)
[2017-07-01] MEDS ORDERED: ALBUTEROL HFA 8 GM INHALER INH PRN (12:00)
[2017-07-01] MEDS ORDERED: SODIUM CHLORIDE 0.65% NA SOLN 45 ML (OCEAN) PRN (12:00)
[2017-07-01] MEDS ORDERED: ACETAMINOPHEN 325 MG TAB PO PRN (12:00)
[2017-07-01 12:16] VITALS: O2SAT 98
[2017-07-01 13:17] VITALS: BP 124/77; PULSE 75; TEMP 36.7; BMI 46.6
[2017-07-01] MEDS ORDERED: PHARMACY GLYCEMIC MGMT CONSULT PRN (13:18)
[2017-07-01] MEDS ORDERED: APIXABAN 2.5 MG TAB PO SCH (13:30)
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
[2017-07-01] MEDS ORDERED: INSULIN GLARGINE SOLOSTAR 100 UNITS/ML 3 ML PEN SQ ONE (13:45)
[2017-07-01] MEDS: INSULIN ASPART 100 UNITS/ML 3 ML PEN SQ SCH ×3 (14:04→21:15)
--- NOTE | 2017-07-01 14:07 | Pharmacy Progress Note ---
Glycemic Control Intl Consult Date of Service Jul 01, 2017. Scope Glycemic Pharmacist consulted by GIA Kamara on 07/01/17 for glycemic control and to write orders per [facility] inpatient glycemic control protocol Objective Weight (Kilograms): 129.100 Accuchecks BSG (last 24hrs): Test 06/30/17 20:42 07/01/17 03:39 07/01/17 06:14 07/01/17 07:40 Random Glucose 200 mg/dl (70-99) Bedside Glucose 393 mg/dl (70-90) 352 mg/dl (70-90) 281 mg/dl (70-90) Test 07/01/17 09:08 07/01/17 12:44 Bedside Glucose 271 mg/dl (70-90) 385 mg/dl (70-90) Laboratory Data (last 24hrs) Test 06/30/17 20:42 Anion Gap 7.0 mmol/L BUN/Creatinine Ratio 10.4 Blood Urea Nitrogen 11 mg/dl Creatinine 1.05 mg/dl Potassium Level 3.5 mmol/L Sodium Level 134 mmol/L White Blood Count 6.61 K/uL Red Blood Count 4.49 M/uL Hemoglobin 14.2 g/dL Hematocrit 41.3 % Mean Corpuscular Volume 92.0 fL Mean Corpuscular Hemoglobin 31.6 pg Mean Corpuscular Hemoglobin Concent 34.4 g/dl Platelet Count 226 K/uL Mean Platelet Volume 10.6 fL Neutrophils (%) (Auto) 49.4 % Lymphocytes (%) (Auto) 38.6 % Monocytes (%) (Auto) 8.0 % Eosinophils (%) (Auto) 3.2 % Basophils (%) (Auto) 0.5 % Neutrophils # (Auto) 3.27 K/uL Lymphocytes # (Auto) 2.55 K/uL Monocytes # (Auto) 0.53 K/uL Eosinophils # (Auto) 0.21 K/uL Basophils # (Auto) 0.03 K/uL Recent Pertinent Medications Outpatient Anti-diabetic Regimen: * Basaglar 55 units qHS * Novolog 15 units with meals (for BSG > 185) * A1c = 8.5 % 04/20/17 The patient is currently receiving: * Basal insulin: Lantus 55 units @ 0500 this AM (for missed 06/30 PM dose) * Correctional/prandial insulin: Novolog 15 units @ 0300 this AM Risk Factors for Insulin Resistance: * Steroids: Solu-medrol 125 mg at 2000 on 06/30, prednisone taper will be starting tomorrow AM * Infection: Zithromax for COPD exacerbation * Diet: type 2 diabetes Assessment & Plan ASSESSMENT: * Ms. Judge is well known to the pharmacy glycemic service from previous admissions * She was in the ER for most of the night and admitted to [facility] just a short while ago * After receiving Solu-medrol in the ER, she was given her dose of Lantus early this AM and a dose of her Novolog * Upon arrival to the floor, her BSG is significantly elevated due to a meal ( cheeseburger, fijian fries and salad ordered) that was NOT covered with insulin * Will plan to initiate insulin orders based upon previous admissions when on steroids - anticipate requiring ~200 units/day, with basal/prandial distribution / PLAN FOR INPATIENT GLYCEMIC CONTROL: * Lantus 30 units x 1 now, then 55 units qHS (to total 85 units for today). This does not count 55 units this AM since that made up for last night's missed dose * Novolog ACHS + 0200 * Goal 110-140 * CF 10 mg/dL/unit * CR 1 unit per 2.5 gm CHO * Please note that the plan above was derived based on current level of insulin resistance and hospital stress. These recommendations are appropriate for inpatient admission only. Plan of care upon discharge will need to be reassessed to avoid potential outpatient hypo/hyperglycemia. Thank you.
[2017-07-01 14:15] VITALS: BP 118/58; PULSE 60
[2017-07-01] MEDS: IPRATROPIUM BROMIDE/ALBUTEROL respimat INH INH SCH ×3 (14:43→21:09)
[2017-07-01 18:06] VITALS: BP 122/78; PULSE 63
[2017-07-01] MEDS: CHLORPROMAZINE HCL 25 MG TAB PO PRN (18:07)
--- NOTE | 2017-07-01 18:11 | NUR ---
Pt received Thorazine 50mg PO PRN for complaints of paranoia. Pt said that the "noises in my room are just like they are at home. I'm too scared to lay down." Pt also reports feeling that the other patients and their families are making fun of her.
--- NOTE | 2017-07-01 19:04 | NUR ---
Pt reports that PRN Thorazine was not helpful, although she appears less anxious and is resting in bed.
[2017-07-01] MEDS: AZITHROMYCIN 250 MG TAB PO SCH (20:24)
[2017-07-01] MEDS: RANITIDINE HCL 150 MG TAB PO SCH (21:10)
[2017-07-01] MEDS: PERPHENAZINE 2 MG TAB PO SCH (21:10)
[2017-07-01] MEDS: INSULIN GLARGINE SOLOSTAR 100 UNITS/ML 3 ML PEN SQ SCH (21:13)
[2017-07-01] MEDS: APIXABAN 2.5 MG TAB PO SCH (21:21)
[2017-07-01] MEDS: ATORVASTATIN 40 MG TAB PO SCH (21:21)
--- NOTE | 2017-07-01 21:21 | NUR ---
Pt requested and received Zanaflex p.o. PRN at this time for muscle spasms. She refused her Lipitor at HS, saying she does not take that anymore, and her HS Eliquis, saying she only takes that once a day.
--- NOTE | 2017-07-01 21:37 | NUR ---
Pt has been attending unit programming and participates appropriately. Pt required PRN Thorazine around dinnertime for paranoia, thinking that a peer's visitors were making fun of her in the dayroom. Pt felt that she could not lay down in her room, because she thought it would be like her apartment, able to hear the noises of the pipes, and she specifically requested a 1:1. Pt stated that the PRN Thorazine did not help her, although she appeared much calmer after it was administered, and she was able to relax in her room. Pt rated herself a 3/10 in community meeting, saying she feels "stressed." She hopes to "get rest and be able to stay in groups." Pt will remain on checks for safety.
--- NOTE | 2017-07-01 22:45 | NUR ---
Pt appears to be asleep after PRN Zanaflex.
--- NOTE | 2017-07-02 01:58 | NUR ---
jesusita has been napping off and on this shift so far. she had wanted a neb treatment but she had gotten her hs inhaler and per respiratory therapy, could not have the treatment yet. she coughs periodically. she declined any desyrel for sleep as she feels she needs to be able to wake easily(her safety concerns). she found the prn thorazine helpful for anxiety management but it did not sedate her. she has been pleasant with staff,calling us by name.
--- NOTE | 2017-07-02 01:58 | NUR ---
admission orders and clinical information reviewed.
[2017-07-02] MEDS ORDERED: INSULIN ASPART 100 UNITS/ML 3 ML PEN SQ ONE (02:00)
--- NOTE | 2017-07-02 02:38 | NUR ---
barbie was awakened for 0200 bsg check as directed. her bsg was 203 and required 7 units of novolog. pharmacy glycemic control states i did not have to recheck her bsg until the scheduled am one is to be done.
[2017-07-02 06:44] VITALS: BP 122/78; PULSE 62; TEMP 36.5
--- NOTE | 2017-07-02 07:04 | NUR ---
Late entry for 07/01/17 1400 - pt admitted by Dr. Gutierrez with diagnosis of Schizoaffective Disorder. She was cooperative throughout the admission assessment though made numerous references to not signing certain releases for fear of our service changing her medications, particularly her pain medications.
[2017-07-02] MEDS: IPRATROPIUM BROMIDE/ALBUTEROL respimat INH INH SCH ×4 (08:40→20:56)
[2017-07-02] MEDS: DILTIAZEM HCL 300 MG CAPCR PO SCH (08:41)
[2017-07-02] MEDS: APIXABAN 2.5 MG TAB PO SCH ×2 (08:42→21:07)
[2017-07-02] MEDS: LOSARTAN/HCTZ 50-12.5 EA TAB PO SCH (08:42)
[2017-07-02] MEDS: VENLAFAXINE HCL XR 75 MG CAPXR PO SCH (08:42)
[2017-07-02] MEDS: PANTOprazole SOD 40 MG TAB PO SCH (08:43)
[2017-07-02] MEDS: FUROSEMIDE 40 MG TAB PO SCH (08:43)
[2017-07-02] MEDS: METOPROLOL SUCC 50MG EXT REL TAB PO SCH (08:44)
[2017-07-02] MEDS: PERPHENAZINE 2 MG TAB PO SCH ×2 (08:44→20:56)
[2017-07-02] MEDS: RANITIDINE HCL 150 MG TAB PO SCH ×2 (08:45→20:56)
--- NOTE | 2017-07-02 08:51 | NUR ---
Pt. requested and received PRN Zanaflex as ordered for muscle spasm. Addendum: 07/02/17 at 0921 by John Gray RN Pt. reports PRN Zanaflex was helpful in alleviating muscle spasm.
[2017-07-02] MEDS ORDERED: INSULIN GLARGINE SOLOSTAR 100 UNITS/ML 3 ML PEN SQ ONE (09:00)
--- NOTE | 2017-07-02 09:06 | NUR ---
Message left for pt's casemanagerAria at [employer] to request that she come for meeting with pt and staff, awaiting return call.
[2017-07-02] MEDS: INSULIN ASPART 100 UNITS/ML 3 ML PEN SQ SCH ×4 (09:15→21:37)
[2017-07-02 11:04] VITALS: Ht 167.6 cm; Wt 129.1 kg
--- NOTE | 2017-07-02 11:15 | Psychiatric Progress Notes ---
Progress Note Date of Service Jul 02, 2017. Interval History Rebeca Judge is a 51-year-old female admitted on Jul 01, 2017 at 12:20 on a voluntary basis reporting depression and intermittent suicidal thoughts. She initially presented to the emergency Department with physical complaints but when approached for discharge, the patient said she needed to be hospitalized for mental health reasons. Information is gathered from the patient, and not considered to be reliable. Chief Complaint "Just resting, I'm exhausted for yesterday". Subjective Patient was seen & assessed interval progress reviewed with Treatment Team. Staff report she has been attending groups and participating appropriately. She requested multiple prn's, including chlorpromazine 50mg 2 and Zanaflex. She reported paranoia, thinking that a peer's visitors were making fun of her. She refused her bedtime Lipitor, stating she doesn't take it anymore, and her bedtime Eliquis, stating she only takes it once a day. On my assessment, she states that her mood has improved since admission, as she was able to get some rest last night, and thinks chlorpromazine was helpful for that. She denies hallucinations and suicidal thoughts, and feels safe here. She continues to report distress over her relationship with her brother Josiah, stating "we were fighting again, he says he disowns me." She says that "he is really leaving this time, within the next few days." She reports good support from another brother, and hopes to call him today. She is hopeful that she will be able to return to [facility] for outpatient care. She states that she went off her medications because she ran out, and then decided she didn't need them, but now thinks she does. Sleep Information Total Hours of Sleep: 5.25 Meal Information Percent of Breakfast Consumed: 90 Percent of Dinner Consumed: 75 Mental Status Exam During interview pt is: alert and oriented, cooperative Appearance: other (morbidly obese, wearing hospital gown, lying in bed awake) Eye contact is: fair Motor behavior is: steady gait & station, no abnormal motor movements Speech: normal in rate, rhythm & volume Affect: depressed, other (reactive and appropriate) Mood is: depressed (but improved) Thought process: goal directed Thought content: paranoid Suicidal thought are: denied Homicidal thoughts are: denied Hallucinations: denies auditory, denies visual Cognition: attention grossly intact, language grossly intact Intelligence estimated to be: below average Insight: impaired Judgement: impaired Impression 51-year-old -[place] woman well known to our unit from past hospitalizations for schizoaffective disorder. She also has a known diagnosis of malingering and I am suspicious about this particular hospitalization. She is a difficult historian, giving conflicting information to almost every question. She indicates she ran out of medications but the external med history 's shows that she had medications filled on June 18. She has been so noncompliant with psychiatric aftercare the most providers are not willing to see her and upon discharge from her last hospitalization in March, was discharged to the care of her PCP as no one would take her back. I suspect that will be the case this time although she voices a willingness to return to [facility] and so we will make that phone call. I will restart all of her medications. She gives varying reports about whether she has been on the Effexor which is on her current med list from her PCP. Initially hesitant but eventually agrees to take 75 mg of Effexor to target her mood and we will restart her Trilafon at reported outpatient doses. She also has, once again, been getting controlled substances from [facility] and I will make a phone call to them to really mind them that we are all here at the hospital recommending she not have access to controlled substances. She is also looking for benzodiazepines which we will not provide her in view of her substance use history but will be provided Vistaril when necessary for times of anxiety. I would like to keep this to a short hospitalization as she is not necessarily being cooperative, refusing to talk about her substance use or allowing contact with certain providers. Ideally I would like to have a family meeting with both of the brothers who live with her but she has previously found her way around this in the past and we have never successfully had a meeting. She will need a medically necessary private room or to become reported with another person with oxygen which she uses at night. Plan (1) schizoaffective disorder depressed 07/01/17 - Trilafon 16 mg twice a day - Will restart Effexor XR at 75 mg daily - Family meeting with brothers - Attempt to fight outpatient psychiatric providers, although due to her chronic noncompliance other providers had previously refused to see her - Coordinate with her current PCP, Dr. Nelson who is currently her only consistent provider - Every 15 minute checks for safety - Encourage participation in group and individual counseling - Reality orientation 07/02 - Continue perphenazine 16 mg twice a day and venlafaxine XR 75 mg daily. - Recommend family meeting with brothers and outpatient case aide. - Social work to assist the patient in identifying possible outpatient psychiatric providers, as she states she may be allowed to return to [facility]. (2) Diabetes 07/01/17 - Will ask the glycemic pharmacist for assistance in managing her sugars - Diabetic diet - Encourage exercise - Blood sugars 4 times daily (3) COPD (chronic obstructive pulmonary disease) 07/01/17 -O2 2 L at night -Medically necessary private room or cohorting with another patient in need of oxygen - Encourage deep breathing and exercise - Continue outpatient medication regimen - Recommend patient stop smoking (4) HTN (hypertension) 07/01/17 - Monitor BP - Continue home medications (5) Atrial fibrillation 07/01/17 - Continue Eliquis at home dose (6) Alcohol abuse 07/01/17 - The patient continues to drink alcohol 2-3 times a week and possibly more. Drug screen negative on admission. Encourage abstinence - The patient has no desire to stop drinking, does not see a need for substance use treatment Discharge / Aftercare Planning Primary Care Physician: Name: Dr. Levi Therapist: Name: None Home Lending Officer: Name: Castro Knapp Visit Code E&M Code: 64429 Inventory Assets Strengths: Has a place to live Needs: To be honest in treatment and avoid controlled substances and alcohol Risk Factors Assessment : No /single/: Yes Higher / Fall in social status: No Mental Health Diagnoses: Yes Substance use disorders: Yes Previous attempt: Yes Previous psychiatric stay: Yes Hopelessness: No Smoker: Yes Protective Factors Assessment Yazidism beliefs: Yes : No Responsible for young children: No Employed: No Stable relationships: No Supportive family: No Data Vital Signs Last 24 Hrs: Date Time Temp Pulse Resp B/P (MAP) Pulse Ox O2 Delivery O2 Flow Rate FiO2 07/02/17 06:44 36.5 62 18 122/78 07/01/17 18:06 63 18 122/78 (93) 07/01/17 13:17 36.7 75 18 124/77 07/01/17 12:16 36.7 75 20 115/77 98 07/01/17 12:11 75 20 115/77 98 Room Air 07/01/17 11:17 73 20 115/73 98 Room Air Meds Administered Last 24 Hrs: Meds Administered (Past 24Hrs) Medications (Trade) Dose Ordered Sig/Lucien Route Start Time Stop Time Status Last Admin Dose Admin Albuterol/ Ipratropium (Duoneb) 12 ml ONE ONCE INH 06/30/17 19:45 06/30/17 19:46 DC 06/30/17 20:22 12 ML Methylprednisolone Sodium Succinate (Solu-Medrol IV) 125 mg NOW STAT IV 06/30/17 19:36 06/30/17 19:42 DC 06/30/17 20:37 125 MG Famotidine (Pepcid 20mg Iv Push) 20 mg NOW STAT IV 06/30/17 19:36 06/30/17 19:43 DC 06/30/17 20:37 20 MG Acetaminophen (Tylenol Tab) 1,000 mg NOW STAT PO 06/30/17 19:36 06/30/17 19:43 DC 06/30/17 20:38 1,000 MG Azithromycin (Zithromax Tab) 500 mg NOW ONCE PO 06/30/17 21:30 06/30/17 21:31 DC 06/30/17 22:04 500 MG Sodium Chloride 1,000 ml @ 999 mls/hr Q1H1M STAT IV 06/30/17 21:29 06/30/17 22:29 DC 06/30/17 22:04 999 MLS/HR Albuterol/ Ipratropium (Duoneb) 12 ml ONE ONCE INH 06/30/17 23:15 06/30/17 23:17 DC 06/30/17 23:41 12 ML Tizanidine HCl (Zanaflex Tab) 4 mg TID PO 07/01/17 09:00 07/01/17 12:49 DC 07/01/17 06:18 4 MG Trazodone HCl (Desyrel Tab) 50 mg NOW ONCE PO 07/01/17 04:00 07/01/17 04:01 DC 07/01/17 05:04 50 MG Insulin Glargine (Lantus Per Unit) 55 units NOW STAT SC 07/01/17 03:49 07/01/17 03:58 DC 07/01/17 05:02 55 UNITS Insulin Aspart (novoLOG ASPART) 15 units NOW STAT SC 07/01/17 03:49 07/01/17 03:58 DC 07/01/17 05:03 15 UNITS Apixaban (Eliquis Tab) 5 mg NOW STAT PO 07/01/17 07:37 07/01/17 07:42 DC 07/01/17 08:51 5 MG HCTZ/Losartan Potassium (Hyzaar 50-12.5 Tab) 1 tab NOW STAT PO 07/01/17 07:37 07/01/17 07:42 DC 07/01/17 08:52 1 TAB Metoprolol Succinate (Toprol Xl Tab) 100 mg NOW STAT PO 07/01/17 07:37 07/01/17 07:42 DC 07/01/17 09:01 100 MG Mometasone Furoate (Asmanex 220MCG Inh) 1 puff NOW STAT INH 07/01/17 07:37 07/01/17 07:42 DC 07/01/17 08:50 1 PUFF Ranitidine HCl (zANTac TAB) 150 mg NOW ONCE PO 07/01/17 07:45 07/01/17 07:46 DC 07/01/17 09:02 150 MG Tizanidine HCl (Zanaflex Tab) 4 mg NOW STAT PO 07/01/17 07:37 07/01/17 07:42 DC 07/01/17 08:52 4 MG Valacyclovir HCl (Valtrex Tab) 500 mg NOW ONCE PO 07/01/17 07:45 07/01/17 07:46 DC 07/01/17 09:02 500 MG Miscellaneous Information (Nursing Verbal Med Order) 1 ea ONE ONCE N/A 07/01/17 08:00 07/01/17 08:01 DC 07/01/17 08:50 1 EA Diltiazem HCl (Cardizem Cd Cap) 300 mg 0830 ONCE PO 07/01/17 08:30 07/01/17 08:31 DC 07/01/17 08:50 300 MG Pantoprazole Sodium (Protonix Tab) 40 mg 0830 ONCE PO 07/01/17 08:30 07/01/17 08:31 DC 07/01/17 08:51 40 MG Acetaminophen (Tylenol Tab) 1,000 mg NOW STAT PO 07/01/17 09:20 07/01/17 09:22 DC 07/01/17 09:20 1,000 MG Albuterol (Ventolin Hfa Inhaler) 2 puffs Q6H PRN INH 07/01/17 12:00 07/31/17 11:59 07/01/17 18:08 2 PUFFS Azithromycin (Zithromax Tab) 250 mg DAILY@2000 PO 07/01/17 20:00 07/04/17 22:00 07/01/17 20:24 250 MG Diltiazem HCl (Cardizem Cd Cap) 300 mg DAILY PO 07/02/17 09:00 08/01/17 08:59 07/02/17 08:41 300 MG Furosemide (Lasix Tab) 40 mg QAM PO 07/02/17 09:00 08/01/17 08:59 07/02/17 08:43 40 MG HCTZ/Losartan Potassium (Hyzaar 50-12.5 Tab) 1 tab QAM PO 07/02/17 09:00 08/01/17 08:59 07/02/17 08:42 1 TAB Insulin Aspart (novoLOG ASPART) SLIDING SCALE ACHS SQ 07/01/17 13:30 07/31/17 13:29 07/02/17 09:15 11 UNITS Insulin Glargine (Lantus Solostar Pen) 55 units HS SQ 07/01/17 21:00 07/31/17 20:59 07/01/17 21:13 55 UNITS Albuterol/ Ipratropium (Combivent Respimat Inh) 1 puffs QID INH 07/01/17 12:27 07/31/17 12:59 07/02/17 08:40 1 PUFFS Metoprolol Succinate (Toprol Xl Tab) 100 mg QAM PO 07/02/17 09:00 08/01/17 08:59 07/02/17 08:44 100 MG Prednisone (PredniSONE TAB) 60 mg DAILY PO 07/02/17 09:00 08/01/17 08:59 07/02/17 08:43 60 MG Ranitidine HCl (zANTac TAB) 150 mg BID PO 07/01/17 21:00 07/31/17 20:59 07/02/17 08:45 150 MG Tizanidine HCl (Zanaflex Tab) 4 mg TID PRN PO 07/01/17 12:00 07/31/17 11:59 07/02/17 08:45 4 MG Valacyclovir HCl (Valtrex Tab) 500 mg QAM PO 07/02/17 09:00 07/12/17 08:59 07/02/17 08:45 500 MG Miscellaneous Information (Order Awaiting Action) 1 ea QS N/A 07/01/17 16:00 07/31/17 15:59 07/02/17 02:15 1 EA Pantoprazole Sodium (Protonix Tab) 40 mg QAM PO 07/02/17 09:00 08/01/17 08:59 07/02/17 08:43 40 MG Perphenazine (Trilafon Tab) 16 mg BID PO 07/01/17 21:00 07/31/17 20:59 07/02/17 08:44 16 MG Apixaban (Eliquis Tab) 5 mg BID PO 07/01/17 22:00 07/31/17 21:59 07/02/17 08:42 5 MG Insulin Glargine (Lantus Solostar Pen) 30 units ONE ONCE SQ 07/01/17 13:45 07/01/17 13:46 DC 07/01/17 14:02 30 UNITS Venlafaxine HCl (effeXOR EXTENDED REL CAP) 75 mg QAM PO 07/02/17 09:00 08/01/17 08:59 07/02/17 08:42 75 MG Insulin Aspart (novoLOG ASPART) SLIDING SCALE 0200 ONCE SQ 07/02/17 02:00 07/02/17 02:01 DC 07/02/17 02:28 7 UNITS Chlorpromazine HCl (Thorazine Tab) 50 mg Q6H PRN PO 07/01/17 17:30 07/31/17 17:29 07/01/17 18:07 50 MG Insulin Glargine (Lantus Solostar Pen) 40 units QAM ONCE SQ 07/02/17 09:00 07/02/17 09:01 DC 07/02/17 09:16 40 UNITS Lab Results Last 24 Hrs: Last 24 Hours Test 07/01/17 12:44 07/01/17 17:01 07/01/17 20:35 07/02/17 02:13 Bedside Glucose 385 mg/dl 255 mg/dl 152 mg/dl 203 mg/dl
--- NOTE | 2017-07-02 11:17 | NUR ---
DIABETES: Pt seen for elevated BS > 300mg/dl. See DM network interventions. Addendum: 07/02/17 at 1118 by Maddie Garcia RN Amended: Links added.
--- NOTE | 2017-07-02 11:54 | Pharmacy Progress Note ---
Pharmacy Glycemic Short Note 2 Date of Service Jul 02, 2017. OUTPATIENT ANTIDIABETIC REGIMEN: * Basaglar 55 units qHS * Novolog 15 units with meals (for BSG > 185) * A1c = 8.5 % 04/20/17 ASSESSMENT: * Ms. Judge received 172 units of insulin yesterday, not including the 55 of Lantus in the AM for the dose she missed on 06/30 PM * Her BSGs have ranged from 145-255 mg/dL in the past 24 hours, significantly improved from close to 400 yesterday morning * She is currently on a prednisone taper and will receive 60 mg today * Will continue to base insulin requirements off an est TDD of 200 units, with a larger percentage being prandial coverage because of the steroids * Fasting BSG 145 this AM * This is acceptable but she did receive 7 units of correctional insulin overnight * Will increase AM Lantus to 40 units and keep her home dose of 55 units qHS * Postprandial BSGs improved yesterday with the CF 10, CR 2.5 for Novolog. Will continue this for today unless postprandial BSGs increase. PLAN FOR INPATIENT GLYCEMIC CONTROL: * Basal insulin * Lantus 40 units qAM, 55 units qHS * Bolus insulin * NovoLog per scale ACHS or Q6hrs while NPO, no overnight accuchecks tonight * Goal Range: Low 110 mg/dL - High 140 mg/dL * Correction Factor: 10 mg/dL/unit * Nutritional / Prandial insulin per carb ratio of 1 unit per 2.5 grams CHO consumed PLAN FOR DISCHARGE: * A1c is okay for patient * CDE recommends securing new PCP for close f/u with diabetes management as an outpatient * Continue outpatient regimen on discharge
--- NOTE | 2017-07-02 13:47 | NUR ---
Pt has attended some grps. She is denying hallucinations or suicidal ideation. She signed her treatment team review which states an estimated LOS as 1-3 days and pt was okay with this. She is in a good mood and affect is brighter. She is more willing to accept aftercare and to cooperate by staying on her medication.
--- NOTE | 2017-07-02 16:57 | NUR ---
Spoke with asia, Aria Hendrcikson ([phone]) via phone who indicated that pt had her phone number changed and this resulted in lack of contact for a while. She indicated that her last meeting with pt at her residence was cut short related to pt having conflicts with her brothers. She came in for meeting in person with this staff and pt. Aria did call [facility] and was informed that they will not consider accepting her back. Reviewed possible options and pt does not want to try to go back to [facility], she was terminated from services with Dr. Moura. Pt said that she would like to go to [facility] where she believed that Dr. Chappell is practicing. Pt did sign LISSET. Discussed possible referral to [facility] but pt says that she "graduated " from there and doesn't want their services. When stepping out of the room to retrieve an LISSET, pt mentioned to Aria that she may consider going to the [place] area in a nursing facility. When Aria brought that back up, pt said "that is none of her business." Did tell pt that this could be a reasonable option to consider. Pt has difficulty keeping appointments and the importance of this was stressed. Left the meeting to make referral to [facility] and pt and asia continued to meet. Referral started with [facility] and appt scheduled for 07/16 with Angleine. Following the intake, pt can be scheduled with their psychiatrist however, Dr. Chappell is no longer working there. Aria was informed of appt and said that she will make sure that pt gets to her appt.
[2017-07-02] MEDS: AZITHROMYCIN 250 MG TAB PO SCH (20:50)
[2017-07-02] MEDS: CHLORPROMAZINE HCL 25 MG TAB PO PRN (20:57)
--- NOTE | 2017-07-02 21:05 | NUR ---
Pt requested and received Zanaflex and Thorazine po prn for pain and insomnia. Addendum: 07/02/17 at 2144 by Yoanna Coe RN Medication Reassessment: Pt currently resting in bed with eyes closed.
[2017-07-02] MEDS: ATORVASTATIN 40 MG TAB PO SCH (21:07)
[2017-07-02] MEDS: INSULIN GLARGINE SOLOSTAR 100 UNITS/ML 3 ML PEN SQ SCH (21:34)
--- NOTE | 2017-07-02 22:03 | NUR ---
Pt has been pleasant this shift. Pt did not attend self awareness group as her ed case manager was visiting at that time. Pt did attend community meeting. Pt has been in her room during free time resting. Pt has been focused on food and originally requested a cheeseburger and polish fries in place of her supper tray. When pt was informed she would not be receiving those items pt tolerated well. Pt also complained of only receiving a half of a turkey sandwich instead of a whole sandwich for snack. Remains on suicide checks.
--- NOTE | 2017-07-03 02:47 | NUR ---
24 hour chart orders reviewed pt. was awake at the beginning of the shift. she came out to the day area to sit. she stated she was feeling like she did when she first came to the [id number] something is going to happen. i reminded her she has prn Thorazine available to her to help with her fearful, uneasy feelings. she did not want any meds at the time. barbie was able to settle for sleep by 0115 rounds.
[2017-07-03 06:42] VITALS: BP_SYST 136; BP_SYST 145; BP_DIAS 79; BP_DIAS 83; PULSE 55; PULSE 57; TEMP 37
[2017-07-03] MEDS ORDERED: INSULIN GLARGINE SOLOSTAR 100 UNITS/ML 3 ML PEN SQ ONE (08:45)
[2017-07-03] MEDS: FUROSEMIDE 40 MG TAB PO SCH (09:00)
--- NOTE | 2017-07-03 09:27 | Psychiatric Progress Notes ---
Psychiatric Progress Note Date of Service Jul 03, 2017. Notes 07/03/[address] Mccracken by phone to discuss aftercare arrangements. She is willing to follow and prescribe psych meds for a limited period of time, specifically until patient is able to establish with psychiatrist at [facility] , but she is not comfortable taking over that role permanently. Also informed Dr. Mccracken of our recs for no controlled substances, which she was already aware of, noting that Rebeca walked out of her office last time because she would not prescribe narcs.
[2017-07-03] MEDS: INSULIN ASPART 100 UNITS/ML 3 ML PEN SQ SCH (09:38)
[2017-07-03] MEDS: VENLAFAXINE HCL XR 75 MG CAPXR PO SCH (09:39)
[2017-07-03] MEDS: PANTOprazole SOD 40 MG TAB PO SCH (09:39)
[2017-07-03] MEDS: IPRATROPIUM BROMIDE/ALBUTEROL respimat INH INH SCH (09:39)
[2017-07-03] MEDS: LOSARTAN/HCTZ 50-12.5 EA TAB PO SCH (09:39)
[2017-07-03] MEDS: METOPROLOL SUCC 50MG EXT REL TAB PO SCH (09:40)
[2017-07-03] MEDS: PERPHENAZINE 2 MG TAB PO SCH (09:40)
[2017-07-03] MEDS: DILTIAZEM HCL 300 MG CAPCR PO SCH (09:40)
[2017-07-03] MEDS: APIXABAN 2.5 MG TAB PO SCH (09:40)
[2017-07-03] MEDS: RANITIDINE HCL 150 MG TAB PO SCH (09:40)
--- NOTE | 2017-07-03 09:49 | NUR ---
Discharge Summary: 1. Pt. is not actively suicidal. 2. Pt. has a more stable mood and reports an improvement in depressive symptoms with increased appetite, improved sleep and improvement of daily functioning. 3. Pt. reports feeling less paranoid and that thoughts are more clear. 4. Pt. has shown improved coping skills and verbalizes feeling ready for discharge. 5. Pt. has had medical stability during hospitalization. 6. Appropriate aftercare is in place.
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
--- NOTE | 2017-07-03 10:03 | Pharmacy Progress Note ---
Pharmacy Glycemic Short Note 2 Date of Service Jul 03, 2017. OUTPATIENT ANTIDIABETIC REGIMEN: * Basaglar 55 units qHS * Novolog 15 units with meals (for BSG > 185) * A1c = 8.5 % 04/20/17 ASSESSMENT: 07/03/17 * Patient received 187 units of insulin yesterday with BSGs ranging from 79-248 mg/dL in the past 24 hours * No changes to causes of insulin resistance * Fasting BSG = 79; this is slightly below goal so will give a lower dose of Lantus this AM. Will continue the PM Lantus dose because this is her home dose. Have been titrating AM doses to aid with covering once daily prednisone. * Postprandial BSGs improved after tightening CR yesterday. Will continue. 07/02/17 * Ms. Judge received 172 units of insulin yesterday, not including the 55 of Lantus in the AM for the dose she missed on 06/30 PM * Her BSGs have ranged from 145-255 mg/dL in the past 24 hours, significantly improved from close to 400 yesterday morning * She is currently on a prednisone taper and will receive 60 mg today * Will continue to base insulin requirements off an est TDD of 200 units, with a larger percentage being prandial coverage because of the steroids * Fasting BSG 145 this AM * This is acceptable but she did receive 7 units of correctional insulin overnight * Will increase AM Lantus to 40 units and keep her home dose of 55 units qHS * Postprandial BSGs improved yesterday with the CF 10, CR 2.5 for Novolog. Will continue this for today unless postprandial BSGs increase. PLAN FOR INPATIENT GLYCEMIC CONTROL: * Basal insulin * Reduce Lantus to 30 units this AM, continue 55 units qHS * Bolus insulin * NovoLog per scale ACHS * Goal Range: Low 110 mg/dL - High 140 mg/dL * Correction Factor: 10 mg/dL/unit * Nutritional / Prandial insulin per carb ratio of 1 unit per 2 grams CHO consumed PLAN FOR DISCHARGE: * A1c is okay for patient * CDE recommends securing new PCP for close f/u with diabetes management as an outpatient * Continue outpatient regimen on discharge * If patient to be discharged on prednisone, it would be reasonable to have her take 25 units of Novolog with each meal for a prednisone dose of 40 mg daily or above
[2017-07-03] MEDS ORDERED: EFFSR75 PO (10:20)
[2017-07-03] MEDS ORDERED: THR25 PO (10:20)
[2017-07-03] MEDS ORDERED: TRL2 PO (12:23)
[2017-07-03] MEDS ORDERED: PERP1TAB8 PO (12:23)
--- NOTE | 2017-07-03 12:47 | NUR ---
Discharge Note: Pt discharged to home via taxi. Discharge instructions provided to pt. who verbalized understanding. Prescriptions given. Aftercare reviewed and the importance of keeping appointments was emphasized. Valuables from [facility] were returned to pt.
[2017-07-23] MEDS ORDERED: DVN80 PO (08:33)
[2017-07-23] MEDS ORDERED: PRD10 PO (08:33)
[2017-07-23] MEDS ORDERED: APR50 PO (08:33)
[2017-07-23] MEDS ORDERED: SENN1TAB65 OR (08:33)
[2017-07-23] MEDS ORDERED: MRLP17X PO (08:33)
[2017-07-23] MEDS ORDERED: HYDR25TA5 PO (08:33)
[2017-07-23] MEDS ORDERED: ATRINS NEB (14:37)
[2017-07-23] MEDS ORDERED: ALBINS/ INH (14:37)
[2017-12-01] MEDS ORDERED: PERP4TAB37 PO (19:50)
[2017-12-01] MEDS ORDERED: BACL1TAB PO (19:50)
[2017-12-01] MEDS ORDERED: TIOT1SPR INH (19:50)
[2017-12-02] MEDS ORDERED: IPRA1AER2 INH (09:32)
[2017-12-03] MEDS ORDERED: LEVO-459 PO (16:11)
[2017-12-03] MEDS ORDERED: PRD20 PO (16:11)
[2017-12-29] MEDS ORDERED: TRAZ100T29 PO (12:16)
[2017-12-29] MEDS ORDERED: INSPMPHMLG SQ (12:18)
[2017-12-29] MEDS ORDERED: VALS-59 PO (12:18)
[2017-12-29] MEDS ORDERED: PERP1TAB8 PO (12:19)
[2017-12-29] MEDS ORDERED: PERP1TAB10 PO (12:19)
== END 2017-07-03 12:30 | disposition home or self-care (01) | DRG 885 ==
LOC: EDBD 19:15 → C.EDC 19:16 → C.MHU 07-01 12:20
PROVIDERS: ADMIT Psychiatry & Neurology Psychiatry; ATTEND Psychiatry & Neurology Psychiatry
DX: F25.1 Schizoaffective disorder, depressive type (principal); R45.851 Suicidal ideations; F10.10 Alcohol abuse, uncomplicated; I48.91 Unspecified atrial fibrillation; F19.10 Other psychoactive substance abuse, uncomplicated; J44.9 Chronic obstructive pulmonary disease, unspecified; I10 Essential (primary) hypertension; K76.0 Fatty (change of) liver, not elsewhere classified; F17.210 Nicotine dependence, cigarettes, uncomplicated; E11.40 Type 2 diabetes mellitus with diabetic neuropathy, unspecified; Z91.19 Patient's noncompliance with other medical treatment and regimen; Z79.4 Long term (current) use of insulin

== ENCOUNTER 2017-07-14 13:22 | Emergency (ER) | payer OTHER ==
[~2017-07-14] VITALS: Ht 166.4 cm; Wt 134.2 kg
[~2017-07-14 13:22] MED LIST changes: +AZIT250T PO; +EFFSR75 PO; -INSDGI SQ; -INSU100I SQ; -IPRA-64 INH; +IPRASOL4 INH; +LACT10SO17 PO; -LACT10SO3 PO; +PERP1TAB8 PO; +THR25 PO; -TPM/50 PO; +TRAZ1TAB52 PO; +TRL2 PO
[2017-07-14 13:33] VITALS: TEMP 36.7; Ht 166.4 cm; Wt 134.2 kg
[2017-07-14] MEDS ORDERED: CYCL10TA6 PO (14:04)
[2017-07-14] MEDS ORDERED: OPTIRAY 320 IV PRN (14:15)
--- NOTE | 2017-07-14 14:17 | EMERGENCY ROOM VISIT NOTE ---
History First contact with patient: 13:37 Chief Complaint: FALL Stated Complaint: CHEST / BUTTOCK PAIN History of Present Illness The patient is a 51F with a PMHX of DM2 in insulin, COPD, SI and Atrial Fibrillation on Eliquis who presents to the Emergency Room with complaints of chest pain starting today. The pain is worse when she moves her chest or her arms. She has never had this pain before. Pt denies any history of MIs in the past. The patient is worried that she may have a blood clot in the lungs. Patient states that she also had a pain in her buttocks. She states that she tripped yesterday when she was getting out of bed and fell on her buttocks. The pain is so bad that she cannot lie flat on her bum. She denies hitting her head but she does state that he has been falling more recently. She does use a walker and has been using it for the past 3 years or so. Patient has been taking Tylenol without any improvement. ROS: On review of systems patient states that she has chronic bilateral shoulder pain. Last BM was 3 days ago. She has been feeling more dizzy over the past 3 weeks. Has a PCP with [facility]. Denies fevers, chills, abdo pain. +chronic dyspnea on exertion, no nausea, no vomiting, no diarrhea, no dysuria, no rash. PMHx: Stroke in 1989. Meds: as below. SHx: Lives with Family, moved to [place] 5 years ago, uses a walker to ambulate x 3 years. Review of Systems See HPI for pertinent positives and negatives. A total of ten systems were reviewed and were otherwise negative. Past Medical/Surgical History Medical Problems: (1) Acute bronchitis (2) Afib (3) Alcohol abuse (4) Atrial fibrillation (5) Benzodiazepine abuse (6) Cellulitis of leg, right (7) Chronic generalized pain disorder (8) Cocaine abuse (9) copd exac, pna (10) copd exac, pna (11) COPD with acute exacerbation (12) COPD with exacerbation (13) Depression (14) Diabetes (15) Diabetes (16) Edema (17) Fatty liver (18) HTN (hypertension) (19) Influenza B (20) Left foot pain (21) Major depression (22) Neuropathy (23) NSTEMI, initial episode of care (24) Obesity (25) Opiate addiction (26) Ovarian cyst (27) Palpitations (28) past psych meds (29) Past Psych Meds (30) Personality disorder (31) Polysubstance (including opioids) dependence, daily use (32) Schizoaffective disorder (33) schizoaffective disorder depressed (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 (35) Sleep apnea (36) Suicide attempt Surgical Problems: (1) H/O foot surgery (2) H/O ovarian cystectomy Social History Problems: (1) ETOH abuse Family History Heart disease Social History Smoking Status: Current Every Day Smoker Alcohol Use: occasionally Drug Use: cocaine Marital Status: single Housing Status: lives with family Occupation Status: disabled Current/Historical Medications Scheduled Apixaban (Eliquis), 5 MG PO BID Atorvastatin (Lipitor), 40 MG PO HS Cyclobenzaprine Hcl (Flexeril), 10 MG PO TID Diltiazem Hcl Coated Beads (Cartia Xt), 300 MG PO DAILY Furosemide (Furosemide), 40 MG PO QAM Hctz/Losartan (Hyzaar 12.5MG/50MG), 1 TAB PO QAM Insulin Aspart (Novolog), 15 UNITS SQ TIDM Insulin Glargine (Basaglar Kwikpen), 55 UNITS SQ HS Ipratropium-Albuterol (Combivent Respimat), 1 PUFFS INH QID Metoprolol Succ (Toprol Xl) (Toprol-Xl ), 100 MG PO QAM Mometasone Furoate-Formoterol (Dulera 200/5 Mcg), 2 PUFFS INH BID Omeprazole (Prilosec), 20 MG PO QAM Perphenazine (Trilafon), 16 MG PO BID Ranitidine HCl (Ranitidine HCl), 150 MG PO BID Valacyclovir HCl (Valacyclovir HCl), 500 MG PO QAM Venlafaxine Hcl (Effexor Extended Rel), 75 MG PO QAM Scheduled PRN Albuterol Hfa (Ventolin Hfa), 2 PUFFS INH Q6H PRN for SOB/Wheezing Albuterol Sulf (Proventil 0.083% 2.5MG/3ML), 2.5 MG INH QID PRN for Wheezing Chlorpromazine Hcl (Thorazine), 50 MG PO Q6H PRN for PSYCHOSIS Ipratropium-Albuterol (Duoneb), 1 TREATMENT INH Q6H PRN for Shortness of Breath Lactulose (Chronulac), 20 GM PO DAILY PRN for Constipation Loratadine (Claritin), 10 MG PO DAILY PRN for PRN Trazodone Hcl (Desyrel), 150 MG PO HS PRN for Insomnia Physical Exam Vital Signs Date Time Temp Pulse Resp B/P (MAP) Pulse Ox O2 Delivery O2 Flow Rate FiO2 07/14/17 15:55 79 20 134/73 95 Room Air 07/14/17 13:38 79 07/14/17 13:33 36.7 81 18 151/72 97 Room Air Physical Exam Gen: No acute distress, patient is lying on her right side because she states her buttock is in too much pain. Not wearing Nasal Cannula. HEENT: Head - normocephalic and atraumatic. Pupils are equal, round, and reactive to light. Extraocular eye muscles are intact and sclera are anicteric. Ears - bilaterally patent canals with noninjected tympanic membranes and no evidence of hemotympanum. Nose - moist nasal mucosa without discharge, no trauma. Mouth - moist buccal mucosa. Oropharynx is nonerythematous and there is no tonsillar exudate or edema noted. Neck: Supple; no JVD, nuchal rigidity, cervical lymphadenopathy, or auscultated bruits. Heart: Regular rate and rhythm. There is a normal S1 and S2 with no murmurs, clicks, or gallops appreciated. Lungs: End expiratory wheezing bilaterally. Abdomen: Soft, obese, completely nontender, nondistended, with good bowel sounds. There are no palpable pulsatile masses or hepatosplenomegaly. There is no guarding, rigidity, or rebound noted. Extremities: No evidence of cyanosis, clubbing, or edema. There are easily palpable peripheral pulses. Upper and lower extremities are atraumatic. Neuro:The patient is awake and alert, oriented to day, time, and place. Muscle strength is 5/5 in all 4 extremities. The patient has equal science teacher strength and equal pedal push and pull. GCS of 15. Denies suicidal ideation. MSK: Pelvis is stable to rock. SKIN: Patient has a large tender to palpation hematoma, approximately 7cm x5cm ovoid on the medial left buttocks. No other visible signs of trauma on the skin in any other area. Medical Decision & Procedures ER Provider Diagnostic Interpretation: ABDOMEN AND PELVIS CT WITH IV CONTRAST CT DOSE: 2059.73 mGy.cm HISTORY: Trauma s/p fall, L Gluteal Hematoma TECHNIQUE: Multiaxial CT images of the abdomen and pelvis were performed following the use of intravenous contrast. A dose lowering technique was utilized adhering to the principles of ALARA. COMPARISON STUDY: Pelvis MRI 02/07/2016. FINDINGS: The lung bases are clear. No fractures within the visualized osseous structures. Mild left gluteal subcutaneous fat stranding. No hematoma identified within the left gluteal region. No retroperitoneal hematoma. Hepatic steatosis. The gallbladder, pancreas, spleen, adrenal glands, and kidneys are unremarkable. No retroperitoneal lymphadenopathy. Normal bladder, uterus, and ovaries. No significant pelvic free fluid. No bowel wall thickening or obstruction. Normal appendix. IMPRESSION: Mild subcutaneous fat stranding within the left gluteal region which may represent a small soft tissue contusion. Otherwise, no acute abnormality identified within the abdomen or pelvis. CHEST ONE VIEW PORTABLE HISTORY: 51 years-old Female Fall, Chest Pain acute atypical chest pain status post fall COMPARISON: Chest radiograph 06/30/2017 TECHNIQUE: Portable AP view of the chest FINDINGS: Cardiac silhouette is again enlarged, unchanged. No pneumothorax, pleural effusion, focal airspace consolidation or overt pulmonary edema. Bones of the chest are grossly intact. Degenerative changes are seen within the bilateral shoulders and spine. IMPRESSION: 1. No acute process. 2. No acute displaced rib fracture or pneumothorax identified. Laboratory Results 07/14/17 15:45 Test 07/14/17 13:12 07/14/17 14:33 07/14/17 15:00 07/14/17 15:45 Troponin I 0.076 ng/ml (0-0.045) Bedside Prothrombin Time INR 1.1 (0.9-1.1) Bedside Hemoglobin 13.6 g/dl (12.0-16.0) Bedside Hematocrit 40 % (37-47) Bedside Sodium 135 mEq/L (135-144) Bedside Potassium 4.9 mEq/L (3.3-5.0) Bedside Chloride 102 mEq/L (101-112) Bedside Total CO2 27 mEq/l (24-31) Bedside Blood Urea Nitrogen 16 mg/dl (7-18) Bedside Creatinine mg/dl (0.6-1.3) Bedside Glucose (other) 211 mg/dl (70-99) Bedside Ionized Calcium (Francisco J) 1.13 mmol/l (1.12-1.32) Anion Gap 8.0 mmol/L (3-11) Est Creatinine Clear Calc Drug Dose 122.7 ml/min Estimated GFR () 106.2 Estimated GFR (Non- 91.6 BUN/Creatinine Ratio 17.4 (10-20) Calcium Level 9.3 mg/dl (8.5-10.1) Medications Administered Medications (Trade) Dose Ordered Sig/Lucien Route Start Time Stop Time Status Last Admin Dose Admin Albuterol/ Ipratropium (Duoneb) 3 ml Q4R INH 07/14/17 16:00 08/13/17 15:59 07/14/17 15:43 3 ML Lorazepam (Ativan Inj) 0.25 mg PRN ONCE IV 07/14/17 14:30 07/14/17 14:31 DC 07/14/17 15:43 0.25 MG ECG Indication: syncope Rhythm: normal sinus Medical Decision The patient's care and disposition was discussed with Dr. Reza, Attending ED Physician. This is a 51F with chest pain s/p fall yesterday. Differential diagnosis include cardiac ischemia, aortic dissection, pulmonary embolism, pneumonia, pneumothorax, musculoskeletal, infections, gastrointestinal, as well as others were entertained. Triage Nursing notes were reviewed. ED Course included an extensive history and physical exam, labs, EKG, chest X-ray and CT Scan of the Abdomen and Pelvis. Imaging was negative for any intraabdominal pathology. EKG was NSS with L [place] Deviation. Labs were significant for a troponin of 0.076 which is a decrease from the patients baseline of 0.1. The chest pain is likely MSK related and the patient was found to have a hematoma on her left buttocks which is likely the cause for her pain. Pt was advised to ice and rest the area and follow up with her PCP in one week. The pt was informed about the findings as listed above. All questions were answered. Return instructions were outlined and the patient was discharged in good condition. The patient was referred to PCP for recheck of the current condition. Impression Primary Impression: Fall Additional Impression: Contusion of multiple sites Departure Information Dispostion Home / Self-Care Referrals Marisel Nelson M.D. (PCP) Patient Instructions ED Hematoma, ED Mechanical Fall, ED Prevention Fall, [facility] Additional Instructions You are being given discharge instructions regarding falls, fall prevention and hematomas. Please read these instructions carefully. You may resume taking all of your home medications. The imaging we performed did now show any fractures in your pelvis. The blood work and the EKG did now show any problems with your heart. We recommend icing the area on your buttocks that is painful. You may also take Ibuprofen and/or Tylenol for the pain. We sure to stay well hydrated. Please follow up with your PCP in one week. Resident Involvement: Resident Care Provided Care Provided: Adult Hospital Medicine Problem Qualifiers
[2017-07-14] MEDS ORDERED: LORAZEPAM 2 MG/ML 1 ML VIAL IV ONE (14:30)
--- NOTE | 2017-07-14 14:32 | DIAGNOSTIC IMAGING REPORT ---
CHEST ONE VIEW PORTABLE HISTORY: 51 years-old Female Fall, Chest Pain acute atypical chest pain status post fall COMPARISON: Chest radiograph 06/30/2017 TECHNIQUE: Portable AP view of the chest FINDINGS: Cardiac silhouette is again enlarged, unchanged. No pneumothorax, pleural effusion, focal airspace consolidation or overt pulmonary edema. Bones of the chest are grossly intact. Degenerative changes are seen within the bilateral shoulders and spine. IMPRESSION: 1. No acute process. 2. No acute displaced rib fracture or pneumothorax identified. The above report was generated using voice recognition software. It may contain grammatical, syntax or spelling errors. Electronically signed by: Lake Harrell M.D. 07/14/2017 2:31 PM Dictated Date/Time: 07/14/2017 2:30 PM
[2017-07-14 15:44] LABS: ISTAT IONIZED CALCIUM 1.13 mmol/l (1.12-1.32); ISTAT POTASSIUM 4.9 mEq/L (3.3-5.0); ISTAT SODIUM 135 mEq/L (135-144)
[2017-07-14] MEDS ORDERED: ALBUT/IPRATROP 3MG/0.5MG NEB 3 ML VIAL INH SCH (16:00)
[2017-07-14 16:15] LABS: CALCIUM 9.3 mg/dl (8.5-10.1); CREATININE 0.75 mg/dl (0.60-1.20); POTASSIUM 4.5 mmol/L (3.5-5.1)
--- NOTE | 2017-07-14 17:04 | DIAGNOSTIC IMAGING REPORT ---
ABDOMEN AND PELVIS CT WITH IV CONTRAST CT DOSE: 2059.73 mGy.cm HISTORY: Trauma s/p fall, L Gluteal Hematoma TECHNIQUE: Multiaxial CT images of the abdomen and pelvis were performed following the use of intravenous contrast. A dose lowering technique was utilized adhering to the principles of ALARA. COMPARISON STUDY: Pelvis MRI 02/07/2016. FINDINGS: The lung bases are clear. No fractures within the visualized osseous structures. Mild left gluteal subcutaneous fat stranding. No hematoma identified within the left gluteal region. No retroperitoneal hematoma. Hepatic steatosis. The gallbladder, pancreas, spleen, adrenal glands, and kidneys are unremarkable. No retroperitoneal lymphadenopathy. Normal bladder, uterus, and ovaries. No significant pelvic free fluid. No bowel wall thickening or obstruction. Normal appendix. IMPRESSION: Mild subcutaneous fat stranding within the left gluteal region which may represent a small soft tissue contusion. Otherwise, no acute abnormality identified within the abdomen or pelvis. Electronically signed by: Vipul Gilmore M.D. 07/14/2017 5:02 PM Dictated Date/Time: 07/14/2017 4:55 PM
[2017-07-14 17:30] VITALS: BP 139/75; PULSE 67; O2SAT 94
--- NOTE | 2017-07-14 17:31 | EMERGENCY ROOM VISIT NOTE ---
History Report prepared by Domenico: Tamir Pryor Under the Supervision of: Dr. Nahid Reza M.D. First contact with patient: 13:37 Chief Complaint: FALL Stated Complaint: CHEST / BUTTOCK PAIN History of Present Illness The patient is a 51 year old black female with a PMHX of DM2 on insulin, COPD and Atrial Fibrillation on Eliquis who presents to the Emergency Room with complaints of constant chest pain starting today. The pain is worse when she moves her chest or her arms. She has never had this pain before. Pt denies any history of MIs in the past. The patient is worried that she may have a blood clot in the lungs. Patient states that she also had a pain in her buttocks. She states that she tripped yesterday when she was getting out of bed and fell on her buttocks. The pain is so bad that she cannot lie flat on her buttocks. She denies hitting her head but she does state that he has been falling more recently. She does use a walker and has been using it for the past 3 years or so. Patient has been taking Tylenol without any improvement. Last BM was 3 days ago. She has been feeling more dizzy over the past 3 weeks. Has a PCP with [facility]. Chronic dyspnea on exertion. Denies fevers, chills, abdo pain. No nausea, no vomiting, no diarrhea, no dysuria, no rash. Source of History: patient Onset: Today Position: chest Timing: constant Modifying Factors (Worsening): other (movement of chest or arms. ) Associated Symptoms: No fevers, No chills, No nausea, No vomiting, No abdominal pain, No diarrhea, No urinary symptoms, No rash Note: Additional symptoms: dizziness and chronic dyspnea on exertion. Review of Systems See HPI for pertinent positives and negatives. A total of ten systems were reviewed and were otherwise negative. Past Medical & Surgical Medical Problems: (1) Acute bronchitis (2) Afib (3) Alcohol abuse (4) Atrial fibrillation (5) Benzodiazepine abuse (6) Cellulitis of leg, right (7) Chronic generalized pain disorder (8) Cocaine abuse (9) copd exac, pna (10) copd exac, pna (11) COPD with acute exacerbation (12) COPD with exacerbation (13) Depression (14) Diabetes (15) Diabetes (16) Edema (17) Fatty liver (18) HTN (hypertension) (19) Influenza B (20) Left foot pain (21) Major depression (22) Neuropathy (23) NSTEMI, initial episode of care (24) Obesity (25) Opiate addiction (26) Ovarian cyst (27) Palpitations (28) past psych meds (29) Past Psych Meds (30) Personality disorder (31) Polysubstance (including opioids) dependence, daily use (32) Schizoaffective disorder (33) schizoaffective disorder depressed (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 (35) Sleep apnea (36) Suicide attempt Surgical Problems: (1) H/O foot surgery (2) H/O ovarian cystectomy Social History Problems: (1) ETOH abuse Family History Heart disease Social History Smoking Status: Current Every Day Smoker Alcohol Use: occasionally Drug Use: cocaine Marital Status: single Housing Status: lives with family Occupation Status: disabled Current/Historical Medications Scheduled Apixaban (Eliquis), 5 MG PO BID Atorvastatin (Lipitor), 40 MG PO HS Cyclobenzaprine Hcl (Flexeril), 10 MG PO TID Diltiazem Hcl Coated Beads (Cartia Xt), 300 MG PO DAILY Furosemide (Furosemide), 40 MG PO QAM Hctz/Losartan (Hyzaar 12.5MG/50MG), 1 TAB PO QAM Insulin Aspart (Novolog), 15 UNITS SQ TIDM Insulin Glargine (Basaglar Kwikpen), 55 UNITS SQ HS Ipratropium-Albuterol (Combivent Respimat), 1 PUFFS INH QID Metoprolol Succ (Toprol Xl) (Toprol-Xl ), 100 MG PO QAM Mometasone Furoate-Formoterol (Dulera 200/5 Mcg), 2 PUFFS INH BID Omeprazole (Prilosec), 20 MG PO QAM Perphenazine (Trilafon), 16 MG PO BID Ranitidine HCl (Ranitidine HCl), 150 MG PO BID Valacyclovir HCl (Valacyclovir HCl), 500 MG PO QAM Venlafaxine Hcl (Effexor Extended Rel), 75 MG PO QAM Scheduled PRN Albuterol Hfa (Ventolin Hfa), 2 PUFFS INH Q6H PRN for SOB/Wheezing Albuterol Sulf (Proventil 0.083% 2.5MG/3ML), 2.5 MG INH QID PRN for Wheezing Chlorpromazine Hcl (Thorazine), 50 MG PO Q6H PRN for PSYCHOSIS Ipratropium-Albuterol (Duoneb), 1 TREATMENT INH Q6H PRN for Shortness of Breath Lactulose (Chronulac), 20 GM PO DAILY PRN for Constipation Loratadine (Claritin), 10 MG PO DAILY PRN for PRN Trazodone Hcl (Desyrel), 150 MG PO HS PRN for Insomnia Allergies Coded Allergies: Haloperidol (Verified Allergy, Severe, TONGUE SWELLING, 07/14/17) Margarine (Verified Allergy, Severe, RASH, 07/14/17) Pt reported an allergy to butter & margarine (causes swelling), though stated she is not allergic to milk. Citalopram (Verified Allergy, Unknown, ITCHING, 07/14/17) Insulin Lispro (Unverified Allergy, Unknown, HIVES, 07/14/17) Penicillins (Verified Allergy, Unknown, UNKNOWN, 07/14/17) PER CHRISSY IN MHU Phenol (Unverified Allergy, Unknown, HIVES, 07/14/17) Sulfamethoxazole w/Trimethoprim (Verified Allergy, Unknown, RASH, 07/14/17) Morphine (Verified Adverse Reaction, Mild, HEADACHE, 07/14/17) Oxycodone (Verified Adverse Reaction, Unknown, ITCH, 07/14/17) Topiramate (Unverified Adverse Reaction, Unknown, SEIZURE LIKE ACTIVITY, ) Physical Exam Vital Signs Date Time Temp Pulse Resp B/P (MAP) Pulse Ox O2 Delivery O2 Flow Rate FiO2 07/14/17 17:30 67 139/75 94 Room Air 07/14/17 15:55 79 20 134/73 95 Room Air 07/14/17 13:38 79 07/14/17 13:33 36.7 81 18 151/72 97 Room Air Physical Exam GENERAL: Awake, alert, well-appearing, NAD HENT: Normocephalic, atraumatic. EYES: Normal conjunctiva. Sclera non-icteric. NECK: Supple. No nuchal rigidity. FROM. RESPIRATORY: Bilateral wheezing. CARDIAC: RRR, no MRG ABDOMEN: Soft, NTND, BS+ MSK: No LE edema. No midline cervical spine TTP. No chest wall or back pain. 7 by 5 cm left gluteal hematoma with TTP. NEURO: GCS 15, CN 2-12 intact, moves all 4s on command SKIN: No rash or jaundice noted. Medical Decision & Procedures ER Provider Diagnostic Interpretation: Radiology results as stated below per my review and radiologist interpretation: ABDOMEN AND PELVIS CT WITH IV CONTRAST FINDINGS: The lung bases are clear. No fractures within the visualized osseous structures. Mild left gluteal subcutaneous fat stranding. No hematoma identified within the left gluteal region. No retroperitoneal hematoma. Hepatic steatosis. The gallbladder, pancreas, spleen, adrenal glands, and kidneys are unremarkable. No retroperitoneal lymphadenopathy. Normal bladder, uterus, and ovaries. No significant pelvic free fluid. No bowel wall thickening or obstruction. Normal appendix. IMPRESSION: Mild subcutaneous fat stranding within the left gluteal region which may represent a small soft tissue contusion. Otherwise, no acute abnormality identified within the abdomen or pelvis. Electronically signed by: Vipul Gilmore M.D. 07/14/2017 5:02 PM CHEST ONE VIEW PORTABLE FINDINGS: Cardiac silhouette is again enlarged, unchanged. No pneumothorax, pleural effusion, focal airspace consolidation or overt pulmonary edema. Bones of the chest are grossly intact. Degenerative changes are seen within the bilateral shoulders and spine. IMPRESSION: 1. No acute process. 2. No acute displaced rib fracture or pneumothorax identified. The above report was generated using voice recognition software. It may contain grammatical, syntax or spelling errors. Electronically signed by: Lake Harrell M.D. 07/14/2017 2:31 PM Laboratory Results 07/14/17 15:45 Test 07/14/17 13:12 07/14/17 14:33 07/14/17 15:00 07/14/17 15:45 Troponin I 0.076 ng/ml (0-0.045) Bedside Prothrombin Time INR 1.1 (0.9-1.1) Bedside Hemoglobin 13.6 g/dl (12.0-16.0) Bedside Hematocrit 40 % (37-47) Bedside Sodium 135 mEq/L (135-144) Bedside Potassium 4.9 mEq/L (3.3-5.0) Bedside Chloride 102 mEq/L (101-112) Bedside Total CO2 27 mEq/l (24-31) Bedside Blood Urea Nitrogen 16 mg/dl (7-18) Bedside Creatinine mg/dl (0.6-1.3) Bedside Glucose (other) 211 mg/dl (70-99) Bedside Ionized Calcium (Francisco J) 1.13 mmol/l (1.12-1.32) Anion Gap 8.0 mmol/L (3-11) Est Creatinine Clear Calc Drug Dose 122.7 ml/min Estimated GFR () 106.2 Estimated GFR (Non- 91.6 BUN/Creatinine Ratio 17.4 (10-20) Calcium Level 9.3 mg/dl (8.5-10.1) Laboratory results reviewed by me Medications Administered Medications (Trade) Dose Ordered Sig/Lucien Route Start Time Stop Time Status Last Admin Dose Admin Albuterol/ Ipratropium (Duoneb) 3 ml Q4R INH 07/14/17 16:00 07/14/17 18:14 DC 07/14/17 15:43 3 ML Lorazepam (Ativan Inj) 0.25 mg PRN ONCE IV 07/14/17 14:30 07/14/17 14:31 DC 07/14/17 15:43 0.25 MG ECG Indication: chest pain Rate (beats per minute): 64 Rhythm: normal sinus Findings: Q waves (V2), left axis deviation, other (Normal intervals. No acute STS changes or TWI. ) Comparison ECG Date: 06/30/2017 Change: no significant change ED Course 1341: The patient was evaluated in room A4B. A complete history and physical exam was performed. 1515: I reevaluated the patient. Discussed results and discharge instructions: she verbalized understanding and agreement. The patient is ready for discharge. Medical Decision The patient is a 51 year old black female with a PMHX of DM2 on insulin, COPD and Atrial Fibrillation on Eliquis who presents to the Emergency Room with complaints of chest pain starting today. Differential diagnosis: Etiologies such as cardiac ischemia, aortic dissection, pulmonary embolism, pneumonia, pneumothorax, musculoskeletal, infections, pericarditis, myocarditis , esophageal rupture, gastrointestinal, as well as others were entertained. Patient seen and evaluated after seen by resident physician Dr. Yeung. Patient s/p fall yesterday. Is on Elequis for prior h/o of PE. Patient w/ mild CP. Non exertional. Does have reproducible CW TTP. Wheezing on exam. Duoneb ordered. Patient does have hematoma to L buttock but no other over evidence of trauma. NCAT and no midline C spine TTP. Did not strike head and nonfocal neuro exam. Blood work, EKG, CXR, trop, CT A/P performed. Patient w/ +trop however this is chronic elevation and less than what could be described as her baseline. EKG w/ no acute changes in contiguous leads. Do not believe to be ACS. Patient w/ hematoma noted on CT w/o other acute findings. CXR neg acute. Patient deemed suitable for outpatient f/u and d/c. Findings explained to patient. Patient given f/u, d/c, and return precautions. All questions answered and patient safely d/c'ed to home. Medication Reconcilliation Current Medication List: was personally reviewed by me Blood Pressure Screening Patient's blood pressure: Elevated blood pressure Blood pressure disposition: Referred to PCP Impression Primary Impression: Fall Additional Impressions: Contusion of multiple sites Encounter for smoking cessation counseling Scribe Attestation The scribe's documentation has been prepared under my direction and personally reviewed by me in its entirety. I confirm that the note above accurately reflects all work, treatment, procedures, and medical decision making performed by me. Departure Information Dispostion Home / Self-Care Referrals Marisel Nelson M.D. (PCP) Forms HOME CARE DOCUMENTATION FORM, IMPORTANT VISIT INFORMATION Patient Instructions ED Hematoma, ED Mechanical Fall, ED Prevention Fall, My [facility] Additional Instructions You are being given discharge instructions regarding falls, fall prevention and hematomas. Please read these instructions carefully. You may resume taking all of your home medications. The imaging we performed did now show any fractures in your pelvis. The blood work and the EKG did now show any problems with your heart. We recommend icing the area on your buttocks that is painful. You may also take Ibuprofen and/or Tylenol for the pain. We sure to stay well hydrated. Please follow up with your PCP in one week. Problem Qualifiers Primary Impression: Fall Encounter type: initial encounter Qualified Codes: W19.XXXA - Unspecified fall, initial encounter
== END 2017-07-14 17:50 | disposition home or self-care (01) ==
LOC: EDBD 13:22 → C.EDA 13:23
DX: S30.0XXA Contusion of lower back and pelvis, initial encounter (principal); W01.0XXA Fall on same level from slipping, tripping and stumbling without subsequent striking against object, initial encounter; Y92.003 Bedroom of unspecified non-institutional (private) residence as the place of occurrence of the external cause; Z71.6 Tobacco abuse counseling; R06.2 Wheezing; R07.9 Chest pain, unspecified; J44.9 Chronic obstructive pulmonary disease, unspecified; I48.91 Unspecified atrial fibrillation; Z79.01 Long term (current) use of anticoagulants; M79.1 Myalgia; M25.511 Pain in right shoulder; M25.512 Pain in left shoulder; G89.29 Other chronic pain; R42 Dizziness and giddiness; F10.10 Alcohol abuse, uncomplicated; F13.10 Sedative, hypnotic or anxiolytic abuse, uncomplicated; F14.10 Cocaine abuse, uncomplicated; F32.9 Major depressive disorder, single episode, unspecified; K76.0 Fatty (change of) liver, not elsewhere classified; I10 Essential (primary) hypertension; E11.40 Type 2 diabetes mellitus with diabetic neuropathy, unspecified; E66.9 Obesity, unspecified; I25.2 Old myocardial infarction; F11.20 Opioid dependence, uncomplicated; N83.209 Unspecified ovarian cyst, unspecified side; F60.9 Personality disorder, unspecified; F25.9 Schizoaffective disorder, unspecified; F17.200 Nicotine dependence, unspecified, uncomplicated; G47.30 Sleep apnea, unspecified; Z79.4 Long term (current) use of insulin

== ENCOUNTER 2017-07-18 14:14 | Inpatient (IN) | payer OTHER ==
[~2017-07-18] VITALS: Ht 167.6 cm; Wt 132.1 kg
[~2017-07-18 14:14] MED LIST changes: -AZIT250T PO; +CYCL10TA6 PO; -TRL2 PO; -ZNF/4 PO
--- NOTE | 2017-07-18 14:38 | EMERGENCY ROOM VISIT NOTE ---
History Report prepared by Domenico: Faustino العلي Under the Supervision of: Dr. George Wall M.D. First contact with patient: 14:19 Chief Complaint: MENTAL HEALTH EVALUATION Stated Complaint: EMOTIONAL History of Present Illness The patient is a 51 year old female who presents to the Emergency Room with complaints of suicidal ideation. Notes increasing stressors at home to the point where she can't live like this anymore. Notes she is trying to move and that her family doesn't love her. She has decided to kill herself due to depression. States she has not yet attempted to harm self but she is concerned she will if she goes home. Notes a plan but not what it is. She takes multiple anti-depressant medications. Multiple previous psychiatric admissions. Admits ETOH last night along with snorting a line of cocaine yesterday evening. She is chronically on eliquis and recently had a fall on buttocks and since with bruise that makes it painful to sit. States she feels very constipated and hasn 't had BM in several days. Denies leg weakness nor loss of bowel/bladder control. 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 Review of Systems See HPI for pertinent positives & negatives. A total of 10 systems reviewed and were otherwise negative. Past Medical & Surgical Medical Problems: (1) Acute bronchitis (2) Afib (3) Alcohol abuse (4) Atrial fibrillation (5) Benzodiazepine abuse (6) Cellulitis of leg, right (7) Chronic generalized pain disorder (8) Cocaine abuse (9) copd exac, pna (10) copd exac, pna (11) COPD with acute exacerbation (12) COPD with exacerbation (13) Depression (14) Diabetes (15) Diabetes (16) Edema (17) Fatty liver (18) HTN (hypertension) (19) Influenza B (20) Left foot pain (21) Major depression (22) Neuropathy (23) NSTEMI, initial episode of care (24) Obesity (25) Opiate addiction (26) Ovarian cyst (27) Palpitations (28) past psych meds (29) Past Psych Meds (30) Personality disorder (31) Polysubstance (including opioids) dependence, daily use (32) Schizoaffective disorder (33) schizoaffective disorder depressed (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 (35) Sleep apnea (36) Suicide attempt Surgical Problems: (1) H/O foot surgery (2) H/O ovarian cystectomy Social History Problems: (1) ETOH abuse Family History Heart disease Social History Smoking Status: Current Every Day Smoker Alcohol Use: occasionally Drug Use: cocaine Marital Status: single Housing Status: lives with family Occupation Status: disabled Current/Historical Medications Scheduled Apixaban (Eliquis), 5 MG PO BID Cyclobenzaprine Hcl (Flexeril), 10 MG PO TID Diltiazem Hcl Coated Beads (Cartia Xt), 300 MG PO DAILY Furosemide (Furosemide), 40 MG PO QAM Hctz/Losartan (Hyzaar 12.5MG/50MG), 1 TAB PO QAM Insulin Aspart (Novolog), 15 UNITS SQ TIDM Insulin Glargine (Basaglar Kwikpen), 55 UNITS SQ HS Ipratropium-Albuterol (Combivent Respimat), 1 PUFFS INH QID Metoprolol Succ (Toprol Xl) (Toprol-Xl ), 100 MG PO QAM Mometasone Furoate-Formoterol (Dulera 200/5 Mcg), 2 PUFFS INH BID Omeprazole (Prilosec), 20 MG PO QAM Perphenazine (Trilafon), 16 MG PO BID Ranitidine HCl (Ranitidine HCl), 150 MG PO BID Valacyclovir HCl (Valacyclovir HCl), 500 MG PO QAM Venlafaxine Hcl (Effexor Extended Rel), 75 MG PO QAM Scheduled PRN Albuterol Hfa (Ventolin Hfa), 2 PUFFS INH Q6H PRN for SOB/Wheezing Albuterol Sulf (Proventil 0.083% 2.5MG/3ML), 2.5 MG INH QID PRN for Wheezing Chlorpromazine Hcl (Thorazine), 50 MG PO Q6H PRN for PSYCHOSIS Ipratropium-Albuterol (Duoneb), 1 TREATMENT INH Q6H PRN for Shortness of Breath Lactulose (Chronulac), 20 GM PO DAILY PRN for Constipation Loratadine (Claritin), 10 MG PO DAILY PRN for PRN Trazodone Hcl (Desyrel), 150 MG PO HS PRN for Insomnia Allergies Coded Allergies: Haloperidol (Verified Allergy, Severe, TONGUE SWELLING, 07/14/17) Margarine (Verified Allergy, Severe, RASH, 07/14/17) Pt reported an allergy to butter & margarine (causes swelling), though stated she is not allergic to milk. Citalopram (Verified Allergy, Unknown, ITCHING, 07/14/17) Insulin Lispro (Unverified Allergy, Unknown, HIVES, 07/14/17) Penicillins (Verified Allergy, Unknown, UNKNOWN, 07/14/17) PER CHRISSY IN MHU Phenol (Unverified Allergy, Unknown, HIVES, 07/14/17) Sulfamethoxazole w/Trimethoprim (Verified Allergy, Unknown, RASH, 07/14/17) Morphine (Verified Adverse Reaction, Mild, HEADACHE, 07/14/17) Oxycodone (Verified Adverse Reaction, Unknown, ITCH, 07/14/17) Topiramate (Unverified Adverse Reaction, Unknown, SEIZURE LIKE ACTIVITY, ) Physical Exam Vital Signs Date Time Temp Pulse Resp B/P (MAP) Pulse Ox O2 Delivery O2 Flow Rate FiO2 07/18/17 16:18 75 22 135/68 95 Room Air 07/18/17 14:17 36.9 82 20 164/93 95 Room Air Physical Exam GENERAL: Patient is crying, chronically unwell appearing and sad appearing HEENT: No acute trauma, normocephalic atraumatic, mucous membranes moist, no nasal congestion, no scleral icterus. NECK: No stridor, no adenopathy, no meningismus, trachea is midline. LUNGS: Mild diffuse wheeze with normal work of breathing and no rales/rhonchi. Equal bilateral. HEART: Regular rate and rhythm. No murmurs, rubs, gallops appreciated. ABDOMEN: Soft, nontender, bowel sounds positive, no masses appreciated, no peritonitis. RECTAL: Mild sized hematoma of left upper buttock without fluctuance, drainage, nor evidence abscess. Mild stool in rectal vault that is brown, heme negative. No fluctuance nor perirectal masses. BACK: No midline tenderness, no CVA tenderness EXTREMITIES: Normal motion all extremities, no cyanosis, no edema. NEUROLOGIC: Alert and oriented, no acute motor or sensory deficits, no focal weakness, cranial nerves grossly intact. SKIN: No rash, no jaundice, no diaphoresis. Medical Decision & Procedures Laboratory Results 07/18/17 15:25 Red Blood Count 4.08, Mean Corpuscular Volume 93.4, Mean Corpuscular Hemoglobin 31.6, Mean Corpuscular Hemoglobin Concent 33.9, Mean Platelet Volume 9.8, Neutrophils (%) (Auto) 59.8, Lymphocytes (%) (Auto) 32.7, Monocytes (%) (Auto) 4.8, Eosinophils (%) (Auto) 2.3, Basophils (%) (Auto) 0.1, Neutrophils # (Auto) 4.09, Lymphocytes # (Auto) 2.24, Monocytes # (Auto) 0.33, Eosinophils # (Auto) 0.16, Basophils # (Auto) 0.01 07/18/17 15:25 Test 07/18/17 15:25 07/18/17 15:39 White Blood Count 6.85 K/uL (4.8-10.8) Red Blood Count 4.08 M/uL (4.2-5.4) Hemoglobin 12.9 g/dL (12.0-16.0) Hematocrit 38.1 % (37-47) Mean Corpuscular Volume 93.4 fL (80-100) Mean Corpuscular Hemoglobin 31.6 pg (25-34) Mean Corpuscular Hemoglobin Concent 33.9 g/dl (32-36) Platelet Count 205 K/uL (130-400) Mean Platelet Volume 9.8 fL (7.4-10.4) Neutrophils (%) (Auto) 59.8 % Lymphocytes (%) (Auto) 32.7 % Monocytes (%) (Auto) 4.8 % Eosinophils (%) (Auto) 2.3 % Basophils (%) (Auto) 0.1 % Neutrophils # (Auto) 4.09 K/uL (1.4-6.5) Lymphocytes # (Auto) 2.24 K/uL (1.2-3.4) Monocytes # (Auto) 0.33 K/uL (0.11-0.59) Eosinophils # (Auto) 0.16 K/uL (0-0.5) Basophils # (Auto) 0.01 K/uL (0-0.2) RDW Standard Deviation 50.3 fL (36.4-46.3) RDW Coefficient of Variation 14.6 % (11.5-14.5) Immature Granulocyte % (Auto) 0.3 % Immature Granulocyte # (Auto) 0.02 K/uL (0.00-0.02) Anion Gap 6.0 mmol/L (3-11) Est Creatinine Clear Calc Drug Dose 150.9 ml/min Estimated GFR () 120.8 Estimated GFR (Non- 104.2 BUN/Creatinine Ratio 18.8 (10-20) Calcium Level 9.2 mg/dl (8.5-10.1) Total Bilirubin 0.3 mg/dl (0.2-1) Aspartate Amino Transf (AST/SGOT) 5 U/L (15-37) Alanine Aminotransferase (ALT/SGPT) 21 U/L (12-78) Alkaline Phosphatase 140 U/L (45-117) Total Protein 7.1 gm/dl (6.4-8.2) Albumin 3.2 gm/dl (3.4-5.0) Globulin 3.9 gm/dl (2.5-4.0) Albumin/Globulin Ratio 0.8 (0.9-2) Thyroid Stimulating Hormone (TSH) 0.776 uIu/ml (0.300-4.500) Salicylates Level 3.6 mg/dl (2.8-20) Acetaminophen Level < 2 ug/ml (10-30) Ethyl Alcohol mg/dL < 3.0 mg/dl (0-3) Urine Color YELLOW Urine Appearance CLEAR (CLEAR) Urine pH 6.0 (4.5-7.5) Urine Specific Raymond 1.012 (1.000-1.030) Urine Protein NEG (NEG) Urine Glucose (UA) NEG (NEG) Urine Ketones NEG (NEG) Urine Occult Blood NEG (NEG) Urine Nitrite NEG (NEG) Urine Bilirubin NEG (NEG) Urine Urobilinogen NEG (NEG) Urine Leukocyte Esterase NEG (NEG) Urine WBC (Auto) 1-5 /hpf (0-5) Urine RBC (Auto) 0-4 /hpf (0-4) Urine Hyaline Casts (Auto) 0 /lpf (0-5) Urine Epithelial Cells (Auto) 5-10 /lpf (0-5) Urine Bacteria (Auto) NEG (NEG) Urine Opiates Screen NEG (NEG) Urine Methadone, Qualitative NEG (NEG) Urine Barbiturates NEG (NEG) Urine Phencyclidine (PCP) Level NEG (NEG) Ur Amphetamine/Methamphetamine NEG (NEG) MDMA (Ecstasy) Screen NEG (NEG) Urine Benzodiazepines Screen NEG (NEG) Urine Cocaine Metabolite POS (NEG) Urine Marijuana (THC) NEG (NEG) Laboratory results as reviewed by me. Medications Administered Medications (Trade) Dose Ordered Sig/Lucien Route Start Time Stop Time Status Last Admin Dose Admin Magnesium Citrate (Citrate Of Magnesia Soln) 148 ml NOW ONCE PO 07/18/17 15:15 07/18/17 15:16 DC 07/18/17 15:16 148 ML Albuterol/ Ipratropium (Duoneb) 3 ml NOW STAT INH 07/18/17 16:31 07/18/17 16:32 DC 07/18/17 16:39 3 ML ED Course 1419: The patient was evaluated in room A6. A complete history and physical exam was performed. 1500: I performed a rectal exam. 1622: I spoke with the correctional counselor/case manager about pt management. 1631: I checked on the patient and she is requesting a breathing treatment. I offered her an inhaler; however, she states that she likes the breathing treatments more. Medical Decision Differential: Mood Disorder, Overdose, Infectious, Electrolyte Abnormality, Cardiac, Hepatic, Endocrine, Toxicologic, Neurologic, amongst other pathologies entertained. 51 yr old female arrives with complaint of suicidal ideation. Very well known to department with vast array of medical problems and frequent visits to ED for both medical, psychiatric and drug problems. Today with psychiatric complaints , but does not come buttock pain and constipation. Hematoma left buttock not near rectum. Rectal exam with brown normal stool in vault. Given Mag Citrate for her constipation. Her abdomen is completely benign with no TTP nor evidence of surgical abdomen. I see no indication for imaging at this time given how benign her abdomen is. Medically cleared with cocaine as expected in her system. Her daily medications ordered with help of Pharmacy given complexity and fact she will likely spend quite some time in ED as suicidal but no beds available throughout area. Signed out to Dr Arana while awaiting placement. Head Trauma GCS Score: 15 Medication Reconcilliation Current Medication List: was personally reviewed by me Blood Pressure Screening Patient's blood pressure: Elevated blood pressure Blood pressure disposition: Elevated BP felt to be situational Impression Primary Impression: Suicidal ideation Additional Impressions: Depression Traumatic hematoma of buttock Constipation Scribe Attestation The scribe's documentation has been prepared under my direction and personally reviewed by me in its entirety. I confirm that the note above accurately reflects all work, treatment, procedures, and medical decision making performed by me. Departure Information Referrals Marisel Nelson M.D. (PCP) Patient Instructions My [facility] Problem Qualifiers
[2017-07-18] MEDS ORDERED: MAGNESIUM CITRATE 296 ML/BTL PO ONE (15:15)
[2017-07-18 15:39] LABS: BASO % 0.1 %; BASO ABS # 0.01 K/uL (0-0.2); EOS % 2.3 %; EOS ABS # 0.16 K/uL (0-0.5); HEMATOCRIT 38.1 % (37-47); HEMOGLOBIN 12.9 g/dL (12.0-16.0); IG# 0.02 K/uL (0.00-0.02); LYMPH % 32.7 %; LYMPH ABS # 2.24 K/uL (1.2-3.4); MEAN CELL VOLUME 93.4 fL (80-100); MEAN CORPUSCULAR HEMOGLOBIN 31.6 pg (25-34); MEAN CORPUSCULAR HGB CONC 33.9 g/dl (32-36); MEAN PLATELET VOLUME 9.8 fL (7.4-10.4); MONO % 4.8 %; MONO ABS # 0.33 K/uL (0.11-0.59); NEUT % 59.8 %; NEUT ABS # 4.09 K/uL (1.4-6.5); PLATELET COUNT 205 K/uL (130-400); RED CELL DISTRIBUTION WIDTH CV 14.6 % (11.5-14.5); RED CELL DISTRIBUTION WIDTH SD 50.3 fL (36.4-46.3); WHITE BLOOD COUNT 6.85 K/uL (4.8-10.8)
[2017-07-18 15:58] LABS: ALBUMIN 3.2 gm/dl (3.4-5.0); CALCIUM 9.2 mg/dl (8.5-10.1); CREATININE 0.61 mg/dl (0.60-1.20); POTASSIUM 4.1 mmol/L (3.5-5.1)
[2017-07-18 16:09] LABS: TOTAL PROTEIN 7.1 gm/dl (6.4-8.2)
[2017-07-18] MEDS ORDERED: ALBUT/IPRATROP 3MG/0.5MG NEB 3 ML VIAL INH STA (16:31)
[2017-07-18] MEDS ORDERED: TRAZODONE HCL 50 MG TAB PO PRN (18:30)
[2017-07-18] MEDS ORDERED: GLUCOSE 10 TABS/TUBE PO PRN (18:45)
[2017-07-18] MEDS ORDERED: GLUCOSE 40% GEL 15 GM TUBE PO PRN (18:45)
[2017-07-18] MEDS ORDERED: GLUCAGON FOR INJ 1 MG VIAL SQ PRN (18:45)
[2017-07-18] MEDS ORDERED: DEXTROSE 50% 50 ML SYR IV PRN (18:45)
--- NOTE | 2017-07-18 18:46 | EMERGENCY ROOM VISIT NOTE ---
ED Visit Note First contact with patient: 18:11 The patient was taken in signout from Dr. Wall at the change of shift. Please see that note for details. The patient was pending psychiatric bed placement due to suicidality. The patient rested comfortably. She was treated for her constipation with magnesium citrate by Dr. Wall. She requested medication for anxiety. I did offer her Atarax but she declined as she feels it causes her to become very dry. The patient did request a DuoNeb and this was given. She has all of her medications ordered by pharmacy. Her case was signed out to Dr. Prescott at the change of shift.
[2017-07-18] MEDS ORDERED: MAGNESIUM CITRATE 296 ML/BTL ONE (20:26)
[2017-07-18] MEDS: PERPHENAZINE 2 MG TAB PO SCH (20:54)
[2017-07-18] MEDS: RANITIDINE HCL 150 MG TAB PO SCH (20:54)
[2017-07-18] MEDS: APIXABAN 2.5 MG TAB PO SCH (20:54)
[2017-07-18] MEDS: INSULIN GLARGINE SOLOSTAR 100 UNITS/ML 3 ML PEN SC SCH (20:56)
[2017-07-19] MEDS ORDERED: hydrOXYzine HCL 25 MG TAB PO STA (02:07)
[2017-07-19] MEDS ORDERED: ALBUT/IPRATROP 3MG/0.5MG NEB 3 ML VIAL INH STA ×2 (02:07→11:47)
--- NOTE | 2017-07-19 05:58 | EMERGENCY ROOM VISIT NOTE ---
ED Visit Note First contact with patient: 05:56 This case was signed out to me at change of shift. The bed search was suspended until the morning. she has slept throughout the night. The case will be signed out to Dr. Navarro at change of shift.
--- NOTE | 2017-07-19 07:05 | EMERGENCY ROOM VISIT NOTE ---
ED Visit Note First contact with patient: 08:16 Pt signed out to me at change of shift. History and Physical verified by me. Bed search suspended in the middle of the night. Pt morning meds ordered. While awaiting bed placement the patient began complaining of chest pain. Her EKG which was interpreted by me shows a normal sinus rhythm no ectopy or ischemia old septal infarct rate of 82. She is wheezing on examination and is given multiple breathing treatments here in the emergency department. She does have an elevation in her troponin level and based on this I feel that the patient should be admitted medically and have a psychiatric consult patient was in agreement with the treatment plan.
[2017-07-19] MEDS: DILTIAZEM HCL 300 MG CAPCR PO SCH (07:59)
[2017-07-19] MEDS: LOSARTAN/HCTZ 50-12.5 EA TAB PO SCH (08:00)
[2017-07-19] MEDS: FUROSEMIDE 40 MG TAB PO SCH (08:00)
[2017-07-19] MEDS: METOPROLOL SUCC 50MG EXT REL TAB PO SCH (08:01)
[2017-07-19] MEDS: PERPHENAZINE 2 MG TAB PO SCH ×2 (08:03→19:52)
[2017-07-19] MEDS: APIXABAN 2.5 MG TAB PO SCH ×2 (08:05→19:50)
[2017-07-19] MEDS: PANTOprazole SOD 40 MG TAB PO SCH (08:05)
[2017-07-19] MEDS: INSULIN ASPART 100 UNITS/ML 3 ML PEN SC SCH ×4 (08:28→23:33)
[2017-07-19] MEDS ORDERED: VENLAFAXINE HCL 37.5 MG TAB PO SCH (09:00)
[2017-07-19] MEDS ORDERED: FAMOTIDINE 20 MG TAB PO STA (12:20)
[2017-07-19] MEDS ORDERED: ALBUTEROL HFA 8 GM INHALER INH STA (12:20)
[2017-07-19] MEDS ORDERED: SUCRALFATE 1 GM TAB PO STA (12:20)
[2017-07-19] MEDS ORDERED: GI COCKTAIL PO STA (12:20)
[2017-07-19] MEDS ORDERED: ALUMINUM/MAGNESIUM SUSP 30 ML UDC ONE (12:30)
[2017-07-19] MEDS ORDERED: LIDOCAINE HCL 2% VISC SOLN 20 ML UDC ONE (12:31)
[2017-07-19] MEDS: CYCLOBENZAPRINE HCL 10 MG TAB PO PRN (12:35)
--- NOTE | 2017-07-19 12:40 | DIAGNOSTIC IMAGING REPORT ---
SINGLE VIEW CHEST CLINICAL HISTORY: Atypical chest pain. FINDINGS: An AP, portable, upright chest radiograph is compared to study dated 07/14/2017. The examination is degraded by portable technique and large body habitus. The cardiomediastinal silhouette is unremarkable. The lungs and pleural spaces are clear. No pneumothorax is seen. The bony thorax is grossly intact. Arthritic change is noted in the shoulders. IMPRESSION: No active disease in the chest and no significant change from recent prior studies. Electronically signed by: Valerio Copeland M.D. 07/19/2017 12:38 PM Dictated Date/Time: 07/19/2017 12:38 PM
[2017-07-19 13:08] LABS: BASO % 0.6 %; BASO ABS # 0.03 K/uL (0-0.2); EOS % 4.3 %; EOS ABS # 0.23 K/uL (0-0.5); HEMATOCRIT 41.5 % (37-47); IG# 0.01 K/uL (0.00-0.02); LYMPH % 27.7 %; MEAN CELL VOLUME 94.3 fL (80-100); MEAN CORPUSCULAR HEMOGLOBIN 31.8 pg (25-34); MEAN CORPUSCULAR HGB CONC 33.7 g/dl (32-36); MEAN PLATELET VOLUME 10.4 fL (7.4-10.4); MONO % 6.1 %; MONO ABS # 0.33 K/uL (0.11-0.59); NEUT % 61.1 %; NEUT ABS # 3.31 K/uL (1.4-6.5); PLATELET COUNT 243 K/uL (130-400); RED CELL DISTRIBUTION WIDTH CV 14.6 % (11.5-14.5); RED CELL DISTRIBUTION WIDTH SD 50.1 fL (36.4-46.3); WHITE BLOOD COUNT 5.41 K/uL (4.8-10.8)
[2017-07-19 13:27] LABS: ALBUMIN 3.2 gm/dl (3.4-5.0); CALCIUM 9.2 mg/dl (8.5-10.1); CREATININE 0.78 mg/dl (0.60-1.20); POTASSIUM 3.8 mmol/L (3.5-5.1)
[2017-07-19 13:35] LABS: CKMB 0.5 ng/ml (0.5-3.6); TOTAL PROTEIN 7.9 gm/dl (6.4-8.2)
--- NOTE | 2017-07-19 14:38 | History and Physical ---
History & Physical Date & Time of Service: Jul 19, 2017 at 14:37 Chief Complaint: Emotional Primary Care Physician: No Doctor, Assigned History of Present Illness 51 yo female presents to the hospital with suicidal ideation with a PMHx of cocaine abuse, COPD, Afib, DM2, She reports she smokes about 5 cigg a day. During the course of the week however, she has been complaining of midsternum, dull chest pain which radiates straight to the back. She reports she did not do cocaine earlier in the week when the pain began. She did snort cocaine on Friday however. She reports that her chest pain occurred after falling on her buttock earlier in the week. She states that the chest pain is mild and unrelated to exertion. After the fall, she noticed that her left buttock swelled and and significant bruising. She is chronically on eliquis and recently had a fall on buttocks and since with bruise that makes it painful to sit. States she feels very constipated and hasn't had BM in several days. She reports that last night after drinking and doing cocaine, she had thoughts of hurting herself. She came to the ER and was to be admitted under psych for suicidal ideation. However, during the course of time she was here. She states she had chest pain and was to be admitted under medicine. Pt has been hospitalized for COPD exacerbations in the past and has been on steroids for her COPD. Pt wears 2LNC at night at home. Past Medical/Surgical History Medical Problems: (1) Afib Status: Chronic (2) Alcohol abuse Status: Chronic (3) Atrial fibrillation Status: Chronic (4) Benzodiazepine abuse Status: Chronic (5) Chronic generalized pain disorder Status: Chronic (6) Cocaine abuse Status: Chronic (7) Diabetes Status: Chronic (8) Diabetes Status: Chronic (9) Fatty liver Status: Chronic (10) HTN (hypertension) Status: Chronic (11) Major depression Status: Chronic (12) Neuropathy Status: Chronic (13) Obesity Status: Chronic (14) Opiate addiction Status: Chronic (15) Palpitations Status: Chronic (16) Personality disorder Status: Chronic (17) Polysubstance (including opioids) dependence, daily use Status: Chronic (18) Schizoaffective disorder Status: Chronic (19) Sciatic nerve disease Status: Chronic (20) Sleep apnea Status: Chronic (21) Suicide attempt Status: Chronic Surgical Problems: (1) H/O foot surgery Status: Resolved (2) H/O ovarian cystectomy Status: Resolved Family History Heart disease Social History Smoking Status: Current Every Day Smoker Drug Use: cocaine Marital Status: single Housing status: lives alone Occupational Status: disabled Immunizations History of Influenza Vaccine: Yes Influenza Vaccine Date: Apr 23, 2012 History of Tetanus Vaccine?: Unknown History of Pneumococcal: Yes Pneumococcal Date: Mar 12, 2011 History of Hepatitis B Vaccine: had one shot of the series Multi-Drug Resistant Organisms History of MDRO: No Allergies Coded Allergies: Haloperidol (Verified Allergy, Severe, TONGUE SWELLING, 07/14/17) Margarine (Verified Allergy, Severe, RASH, 07/14/17) Pt reported an allergy to butter & margarine (causes swelling), though stated she is not allergic to milk. Citalopram (Verified Allergy, Unknown, ITCHING, 07/14/17) Insulin Lispro (Unverified Allergy, Unknown, HIVES, 07/14/17) Penicillins (Verified Allergy, Unknown, UNKNOWN, 07/14/17) PER [facility]IS[facility] IN [facility] Phenol (Unverified Allergy, Unknown, HIVES, 07/14/17) Sulfamethoxazole w/Trimethoprim (Verified Allergy, Unknown, RASH, 07/14/17) Morphine (Verified Adverse Reaction, Mild, HEADACHE, 07/14/17) Oxycodone (Verified Adverse Reaction, Unknown, ITCH, 07/14/17) Topiramate (Unverified Adverse Reaction, Unknown, SEIZURE LIKE ACTIVITY, ) Home Medications Scheduled Apixaban (Eliquis), 5 MG PO BID Cyclobenzaprine Hcl (Flexeril), 10 MG PO TID Diltiazem Hcl Coated Beads (Cartia Xt), 300 MG PO DAILY Furosemide (Furosemide), 40 MG PO QAM Hctz/Losartan (Hyzaar 12.5MG/50MG), 1 TAB PO QAM Insulin Aspart (Novolog), 15 UNITS SQ TIDM Insulin Glargine (Basaglar Kwikpen), 55 UNITS SQ HS Ipratropium-Albuterol (Combivent Respimat), 1 PUFFS INH QID Metoprolol Succ (Toprol Xl) (Toprol-Xl ), 100 MG PO QAM Mometasone Furoate-Formoterol (Dulera 200/5 Mcg), 2 PUFFS INH BID Omeprazole (Prilosec), 20 MG PO QAM Perphenazine (Trilafon), 16 MG PO BID Ranitidine HCl (Ranitidine HCl), 150 MG PO BID Valacyclovir HCl (Valacyclovir HCl), 500 MG PO QAM Venlafaxine Hcl (Effexor Extended Rel), 75 MG PO QAM Scheduled PRN Albuterol Hfa (Ventolin Hfa), 2 PUFFS INH Q6H PRN for SOB/Wheezing Albuterol Sulf (Proventil 0.083% 2.5MG/3ML), 2.5 MG INH QID PRN for Wheezing Chlorpromazine Hcl (Thorazine), 50 MG PO Q6H PRN for PSYCHOSIS Ipratropium-Albuterol (Duoneb), 1 TREATMENT INH Q6H PRN for Shortness of Breath Lactulose (Chronulac), 20 GM PO DAILY PRN for Constipation Loratadine (Claritin), 10 MG PO DAILY PRN for PRN Trazodone Hcl (Desyrel), 150 MG PO HS PRN for Insomnia Review of Systems Constitutional: No fever, No chills Eyes: No worsening of vision ENT: No hearing loss Respiratory: No cough, No sputum Cardiovascular: + chest pain, No orthopnea, No PND Abdomen: No pain, No nausea Neurologic: No memory loss Psychiatric: No depression symptoms Endocrine: No fatigue Hematologic / Lymphatic: No abnormal bleeding/bruising Integumentary: No rash Physical Exam Vital Signs Date Time Temp Pulse Resp B/P (MAP) Pulse Ox O2 Delivery O2 Flow Rate FiO2 07/19/17 12:34 83 20 126/81 93 Room Air 07/19/17 07:53 77 20 167/107 94 Room Air 07/18/17 22:50 82 20 158/87 95 Room Air 07/18/17 16:18 75 22 135/68 95 Room Air General Appearance: WD/WN, no apparent distress Head: normocephalic Eyes: normal inspection ENT: normal ENT inspection Neck: supple, no adenopathy Respiratory/Chest: no respiratory distress, + wheezing (bilateral) Cardiovascular: regular rate, rhythm, no edema, no murmur Abdomen/GI: normal bowel sounds, non tender, soft Back: + pertinent finding (left buttock near midline has a moderatesize hematoma. no bruising.) Extremities/Musculoskelatal: normal inspection Neurologic/Psych: alert, oriented x 3 Skin: normal color Lymphatic: no adenopathy Diagnostics Laboratory Results Results Past 24 Hours Test 07/18/17 15:25 07/18/17 15:39 07/18/17 20:54 07/19/17 07:55 Range/Units White Blood Count 6.85 4.8-10.8 K/uL Red Blood Count 4.08 4.2-5.4 M/uL Hemoglobin 12.9 12.0-16.0 g/dL Hematocrit 38.1 37-47 % Mean Corpuscular Volume 93.4 80-100 fL Mean Corpuscular Hemoglobin 31.6 25-34 pg Mean Corpuscular Hemoglobin Concent 33.9 32-36 g/dl Platelet Count 205 130-400 K/uL Mean Platelet Volume 9.8 7.4-10.4 fL Neutrophils (%) (Auto) 59.8 % Lymphocytes (%) (Auto) 32.7 % Monocytes (%) (Auto) 4.8 % Eosinophils (%) (Auto) 2.3 % Basophils (%) (Auto) 0.1 % Neutrophils # (Auto) 4.09 1.4-6.5 K/uL Lymphocytes # (Auto) 2.24 1.2-3.4 K/uL Monocytes # (Auto) 0.33 0.11-0.59 K/uL Eosinophils # (Auto) 0.16 0-0.5 K/uL Basophils # (Auto) 0.01 0-0.2 K/uL RDW Standard Deviation 50.3 36.4-46.3 fL RDW Coefficient of Variation 14.6 11.5-14.5 % Immature Granulocyte % (Auto) 0.3 % Immature Granulocyte # (Auto) 0.02 0.00-0.02 K/uL Sodium Level 135 136-145 mmol/L Potassium Level 4.1 3.5-5.1 mmol/L Chloride Level 101 98-107 mmol/L Carbon Dioxide Level 28 21-32 mmol/L Anion Gap 6.0 3-11 mmol/L Blood Urea Nitrogen 12 7-18 mg/dl Creatinine 0.61 0.60-1.20 mg/dl Est Creatinine Clear Calc Drug Dose 150.9 ml/min Estimated GFR () 120.8 Estimated GFR (Non- 104.2 BUN/Creatinine Ratio 18.8 10-20 Random Glucose 164 70-99 mg/dl Calcium Level 9.2 8.5-10.1 mg/dl Total Bilirubin 0.3 0.2-1 mg/dl Aspartate Amino Transf (AST/SGOT) 5 15-37 U/L Alanine Aminotransferase (ALT/SGPT) 21 12-78 U/L Alkaline Phosphatase 140 45-117 U/L Total Protein 7.1 6.4-8.2 gm/dl Albumin 3.2 3.4-5.0 gm/dl Globulin 3.9 2.5-4.0 gm/dl Albumin/Globulin Ratio 0.8 0.9-2 Thyroid Stimulating Hormone (TSH) 0.776 0.300-4.500 uIu/ml Salicylates Level 3.6 2.8-20 mg/dl Acetaminophen Level < 2 10-30 ug/ml Ethyl Alcohol mg/dL < 3.0 0-3 mg/dl Urine Color YELLOW Urine Appearance CLEAR CLEAR Urine pH 6.0 4.5-7.5 Urine Specific [place] 1.012 1.000-1.030 Urine Protein NEG NEG Urine Glucose (UA) NEG NEG Urine Ketones NEG NEG Urine Occult Blood NEG NEG Urine Nitrite NEG NEG Urine Bilirubin NEG NEG Urine Urobilinogen NEG NEG Urine Leukocyte Esterase NEG NEG Urine WBC (Auto) 1-5 0-5 /hpf Urine RBC (Auto) 0-4 0-4 /hpf Urine Hyaline Casts (Auto) 0 0-5 /lpf Urine Epithelial Cells (Auto) 5-10 0-5 /lpf Urine Bacteria (Auto) NEG NEG Urine Opiates Screen NEG NEG Urine Methadone, Qualitative NEG NEG Urine Barbiturates NEG NEG Urine Phencyclidine (PCP) Level NEG NEG Ur Amphetamine/Methamphetamine NEG NEG MDMA (Ecstasy) Screen NEG NEG Urine Benzodiazepines Screen NEG NEG Urine Cocaine Metabolite POS NEG Urine Marijuana (THC) NEG NEG Bedside Glucose 167 139 70-90 mg/dl Test 07/19/17 12:47 07/19/17 12:52 Range/Units White Blood Count 5.41 4.8-10.8 K/uL Red Blood Count 4.40 4.2-5.4 M/uL Hemoglobin 14.0 12.0-16.0 g/dL Hematocrit 41.5 37-47 % Mean Corpuscular Volume 94.3 80-100 fL Mean Corpuscular Hemoglobin 31.8 25-34 pg Mean Corpuscular Hemoglobin Concent 33.7 32-36 g/dl Platelet Count 243 130-400 K/uL Mean Platelet Volume 10.4 7.4-10.4 fL Neutrophils (%) (Auto) 61.1 % Lymphocytes (%) (Auto) 27.7 % Monocytes (%) (Auto) 6.1 % Eosinophils (%) (Auto) 4.3 % Basophils (%) (Auto) 0.6 % Neutrophils # (Auto) 3.31 1.4-6.5 K/uL Lymphocytes # (Auto) 1.50 1.2-3.4 K/uL Monocytes # (Auto) 0.33 0.11-0.59 K/uL Eosinophils # (Auto) 0.23 0-0.5 K/uL Basophils # (Auto) 0.03 0-0.2 K/uL RDW Standard Deviation 50.1 36.4-46.3 fL RDW Coefficient of Variation 14.6 11.5-14.5 % Immature Granulocyte % (Auto) 0.2 % Immature Granulocyte # (Auto) 0.01 0.00-0.02 K/uL Sodium Level 133 136-145 mmol/L Potassium Level 3.8 3.5-5.1 mmol/L Chloride Level 97 98-107 mmol/L Carbon Dioxide Level 28 21-32 mmol/L Anion Gap 9.0 3-11 mmol/L Blood Urea Nitrogen 9 7-18 mg/dl Creatinine 0.78 0.60-1.20 mg/dl Est Creatinine Clear Calc Drug Dose 118.0 ml/min Estimated GFR () 101.3 Estimated GFR (Non- 87.4 BUN/Creatinine Ratio 11.5 10-20 Random Glucose 243 70-99 mg/dl Calcium Level 9.2 8.5-10.1 mg/dl Total Bilirubin 0.5 0.2-1 mg/dl Direct Bilirubin 0.1 0-0.2 mg/dl Aspartate Amino Transf (AST/SGOT) 6 15-37 U/L Alanine Aminotransferase (ALT/SGPT) 24 12-78 U/L Alkaline Phosphatase 137 45-117 U/L Total Creatine Kinase 150 26-192 U/L Creatine Kinase MB 0.5 0.5-3.6 ng/ml Creatine Kinase MB Ratio 0.3 0-3.0 Troponin I 0.085 0-0.045 ng/ml Total Protein 7.9 6.4-8.2 gm/dl Albumin 3.2 3.4-5.0 gm/dl Lipase 165 73-393 U/L Impression Assessment and Plan 51F with a PMHx of cocaine abuse, COPD, Afib, DM2, SI p/w a one day history of SOB and chest pain. Admitted to Tele for chest pain rule out Doubt acue coronary syndrome Likely bronchitis vs musculoskeletal will obtian CMx3 will continue with eliquis. Left gluteal hematoma will place warm compresses. chronic pain patient is asking for pain medicine will check PDMP. will hold for now. Suicidal Ideation will consult psych A. fib On eliquis for anticoag cont diltiazem COPD cont albuterol and dulera HTN cont home meds Patient already received metoprolol dose today. will monitor BPs. concern over overt stimulation from use of cocaine. DM2 on sliding scale 40 minutes were spent on this admission Level of Care Telemetry Advanced Directives Existing Advance Directive: No Existing Living Will: No Existing Power of Oil Furnace Installer: No Existing Health Care Proxy: No Resuscitation Status FULL RESUSCITATION VTE Prophylaxis VTE Risk Assessment Done? Y/N: Yes Risk Level: Low Given or contraindicated: SCD's
[2017-07-19] MEDS ORDERED: IV FLUIDS COMPLETED PRN (15:30)
[2017-07-19] MEDS: METHYLPREDNISOLONE IV 40 MG in SYRINGE 0 ML IV SCH ×2 (15:48→23:51)
[2017-07-19 16:31] VITALS: BP 130/85; PULSE 76; TEMP 36.8; O2SAT 93; BMI 47.8
[2017-07-19] MEDS: RANITIDINE HCL 150 MG TAB PO SCH ×2 (17:57→19:51)
[2017-07-19 18:51] VITALS: BP 158/81; PULSE 78; TEMP 36.9; O2SAT 94
[2017-07-19] MEDS ORDERED: GLUCOSE 10 TABS/TUBE PO PRN (19:15)
[2017-07-19] MEDS ORDERED: GLUCAGON FOR INJ 1 MG VIAL SQ PRN (19:15)
[2017-07-19] MEDS ORDERED: GLUCOSE 40% GEL 15 GM TUBE PO PRN (19:15)
[2017-07-19] MEDS: INSULIN GLARGINE SOLOSTAR 100 UNITS/ML 3 ML PEN SC SCH (19:48)
[2017-07-19 20:00] VITALS: O2SAT 94
--- NOTE | 2017-07-19 21:56 | Progress Note ---
Progress Note Date of Service Jul 19, 2017. Progress Note Called for elevated sugars 398 1.5 hours after administered 15 units Novolog and 55 units Lantus Discussed with pharmacy. No stat insulin currently. Will recheck BG in 2 hours and consider bolus dose of insulin then if still elevated. Ordered patient a correction factor for Novolog, but not carb counting - primary team can add this if desired. Ordered HbA1c in AM. Resident Tracking Resident Involvement: Resident Care Provided Care Provided: Adult Hospital Medicine
[2017-07-19 22:50] VITALS: BP 131/76; PULSE 63; TEMP 36.9; O2SAT 93
[2017-07-20 04:48] VITALS: BP 158/96; PULSE 60; TEMP 36.8; O2SAT 94
[2017-07-20 07:12] VITALS: BP 154/81; PULSE 60; TEMP 36.8; O2SAT 91
[2017-07-20] MEDS: INSULIN ASPART 100 UNITS/ML 3 ML PEN SC SCH ×6 (08:39→21:53)
[2017-07-20] MEDS: PANTOprazole SOD 40 MG TAB PO SCH (08:40)
[2017-07-20] MEDS: LOSARTAN/HCTZ 50-12.5 EA TAB PO SCH (08:40)
[2017-07-20] MEDS: PERPHENAZINE 2 MG TAB PO SCH ×2 (08:40→21:40)
[2017-07-20] MEDS: METHYLPREDNISOLONE IV 40 MG in SYRINGE 0 ML IV SCH ×3 (08:40→23:41)
[2017-07-20] MEDS: RANITIDINE HCL 150 MG TAB PO SCH ×2 (08:40→21:40)
[2017-07-20] MEDS: FUROSEMIDE 40 MG TAB PO SCH (08:41)
[2017-07-20] MEDS: APIXABAN 2.5 MG TAB PO SCH ×2 (08:41→21:39)
[2017-07-20] MEDS: DILTIAZEM HCL 300 MG CAPCR PO SCH (08:41)
[2017-07-20] MEDS: METOPROLOL SUCC 50MG EXT REL TAB PO SCH (08:41)
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
[2017-07-20 10:58] VITALS: BP 146/73; PULSE 63; TEMP 36.6; O2SAT 91
[2017-07-20 15:06] VITALS: BP 143/65; PULSE 60; TEMP 36.6; O2SAT 91
[2017-07-20] MEDS ORDERED: PHARMACY GLYCEMIC MGMT CONSULT SCH (17:08)
[2017-07-20] MEDS ORDERED: INSULIN GLARGINE SOLOSTAR 100 UNITS/ML 3 ML PEN SC STA (17:41)
[2017-07-20 18:24] VITALS: BP 142/66; PULSE 61; TEMP 36.8; O2SAT 92
[2017-07-20] MEDS ORDERED: NURSING VERBAL MED ORDER ONE (18:30)
--- NOTE | 2017-07-20 18:42 | CARDIOLOGY CONSULTATION ---
DATE OF CONSULTATION: 07/20/2017 TIME: 1719 hours ORDERING PHYSICIAN: Dr. Dye REASON FOR CONSULTATION: Elevated troponin. HISTORY OF PRESENT ILLNESS: Ms. Judge is a pleasant 51-year-old female with a history significant for paroxysmal atrial fibrillation, cocaine abuse, diabetes, hypertension, schizoaffective disorder, and prior pulmonary embolism. She also has a history of COPD. She has had a chest pain syndrome of uncertain etiology for many years. She also has chronically elevated troponin levels. She was admitted to [facility] on 07/18/2017. She was having suicidal ideations. She continues to have intermittent suicidal ideations, but because of chest discomfort and minimally elevated troponins, medical evaluation was first recommended. Her chest discomfort is a left-sided substernal chest discomfort described as a soreness. There is no associated shortness of breath. It lasts for 1-2 minutes before spontaneously resolving. She also has back pain issues. She has chronic left neck pain not associated with her chest pain. The left neck pain is constant for the past several months. She states that her chest discomfort is worse when she applies pressure to that area. In the past, she has had several evaluations from cardiology for chest discomfort. She actually underwent cardiac catheterization on 11/10/2014 which demonstrated no coronary artery disease and no aortic stenosis. Her chest pain in the past has often been reproducible upon examination with tenderness in that area. Upon presentation, she was found to have no significant ST or T-wave abnormalities on her presenting ECG despite chest discomfort. She states that she has been compliant with her medications. Metoprolol was recommended to be discontinued in the past. She states that it was while during her hospitalization due to cocaine abuse. She states that it has since been restarted by her primary care physician. She states that she has not been missing any doses of her medications. She admits to using cocaine intermittently. She has been living with 2 of her brothers, but states that they are not supportive and she said that they think she is "crazy." She states that they are not involved in drug abuse. She did have a mechanical fall last week and caused hematoma on her buttocks. She denies syncope, near syncope, palpitations, melena and hematochezia. She states that she has been diagnosed with microscopic hematuria but no gross hematuria. No edema, stroke or stroke-like symptoms. REVIEW OF SYSTEMS: As above and review of systems otherwise negative/unremarkable. PAST MEDICAL HISTORY: 1. Chronic atypical chest discomfort with normal coronary arteries in 2015. 2. Schizoaffective disorder. 3. COPD. 4. Diabetes. 5. Hypertension. 6. Sleep apnea. 7. Peripheral neuropathy. 8. Chronically elevated troponin levels. 9. Chronic back pain. 10. Pulmonary embolism. 11. Paroxysmal atrial fibrillation. 12. Cocaine abuse. HOME MEDICATIONS: Include Eliquis 5 mg twice daily, diltiazem 300 mg daily, Lasix 40 mg daily, Hyzaar 12.5/50 mg daily, metoprolol succinate 100 mg daily. Please see H&P for full list. INPATIENT MEDICATIONS: Include Apixaban 5 mg p.o. b.i.d., diltiazem 300 mg daily, Lasix 40 mg p.o. daily, Hyzaar 50/12.5 mg daily, Lantus 55 units at bedtime, metoprolol succinate 100 mg daily, methylprednisolone 40 mg IV q. 8 hours, Protonix 40 mg daily. ALLERGIES AND INTOLERANCES: Include CITALOPRAM, HALOPERIDOL, INSULIN LISPRO, MORPHINE, OXYCODONE, PENICILLINS, BACTRIM, TOPIRAMATE. SOCIAL HISTORY: Admits to cocaine abuse intermittently. Less than 5 cigarettes per day. Occasional alcohol. Lives with 2 of her brothers. She has 9 brothers in total. No children. She is currently accompanied by a 1:1. FAMILY HISTORY: Father had renal disease and CHF. PHYSICAL EXAMINATION: VITAL SIGNS: Temperature 36.6 degrees, heart rate 60 beats per minute, respiration rate 20, blood pressure 143/65 mmHg, oxygen saturation 91% on room air. I's and O's negative 2.2 liters so far today. Weight is 129.5 kg. GENERAL: No acute distress. She is alert and oriented. HEENT: Anicteric sclerae. NECK: Thick, but no appreciable JVD. No bruits. Normal carotid upstrokes bilaterally. CARDIAC EXAMINATION: PMI was nonpalpable. There was no ventricular heave. Regular, normal S1 and S2. There were no audible murmurs, rubs or gallops. LUNGS: Wheeze expiratory wheezing in bilateral lung landry. ABDOMEN: Obese, soft, nontender, nondistended. Normoactive bowel sounds. EXTREMITIES: No cyanosis or pitting edema. 2+ radial pulses bilaterally. 2+ dorsalis pedis pulses bilaterally. CHEST: Tender to palpation in the substernal left chest area reproducing her chest pain that she described above. LABORATORY DATA: White blood cell count 5.41, hemoglobin 14, platelets 243. Sodium 133, potassium 3.8, BUN 9, creatinine 0.78, peak troponin 0.085 and has since decreased to 0.053. When reviewing troponin trends her troponin has been elevated since August of 2014 and is typically higher than troponin levels during this hospitalization. Cardiac catheterization in 2015 as noted above in the HPI. Most recent echocardiogram 01/26/2017, normal LV systolic function. ECG personally reviewed from 07/19/2017 at 12:27 p.m.: Normal sinus rhythm, 82 beats per minute. Prolonged QT. Telemetry personally reviewed. No arrhythmias. ASSESSMENT AND PLAN: 1. Noncardiac chest pain: She has had chronic chest pain syndromes which has been reproducible on exam with tenderness. She also has chronically elevated troponin levels. She is negative. She had no coronary disease in 2015 catheterization for chest discomfort and elevated troponins. Her ECG is without dynamic ST changes. Would not recommend any ischemic any further ischemic evaluation unless she should have further objective data of ischemic heart disease or significant change in her symptoms. 2. Elevated troponins: She has chronically elevated troponins and her current levels are actually lower than typical for her dating back to August of 2014. Lesser troponins become significantly elevated, would recommend no further ischemic evaluation or with other objective data such as ECG dynamic ST changes. 3. Paroxysmal atrial fibrillation: She is on a rate control strategy with metoprolol succinate and diltiazem. Lives with ongoing cocaine abuse, it may be prudent to discontinue beta brandon therapy, so she does that she does not have unopposed alpha adrenergic stimulation. This has been recommended in the past by cardiology as well. If beta blockers and Hudson, could start alpha brandon as well for blood as well or use labetalol or carvedilol; however, ideally no beta brandon therapy and she can refrain from cocaine abuse. She is on anticoagulation for stroke risk reduction. 4. Hypertension: Blood pressure mildly elevated. Can titrate medications as appropriate. 5. Cocaine abuse: Cocaine cessation and tobacco abuse is important. 6. Suicidal ideation: As per primary service and Psychiatry. 7. Disposition: Cardiology will sign off at this time. Please call for any other questions or concerns.
[2017-07-20] MEDS ORDERED: LACTULOSE SYRUP 20 GM/30 ML UDC PO PRN (19:30)
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
[2017-07-20] MEDS ORDERED: CHLORPROMAZINE HCL 25 MG TAB PO PRN (20:15)
[2017-07-20] MEDS ORDERED: INSULIN HUMAN REGULAR IV BOLUS 5 UNIT in SYRINGE 0 ML IV SCH (20:45)
[2017-07-20] MEDS ORDERED: INSULIN GLARGINE SOLOSTAR 100 UNITS/ML 3 ML PEN SC SCH (21:00)
[2017-07-20] MEDS: INSULIN REGULAR 250 UNITS in SODIUM CHLORIDE 0.9% 250ML 250 ML IV SCH ×2 (21:32→23:49)
[2017-07-20] MEDS: CYCLOBENZAPRINE HCL 10 MG TAB PO PRN (21:41)
[2017-07-20 22:45] VITALS: BP 134/75; PULSE 63; TEMP 36.6; O2SAT 93
[2017-07-21] VITALS (9 sets, daily range): BP systolic 130–161; BP diastolic 66–83; PULSE 60–76; TEMP 36.8–37.4; O2SAT 91–94
[2017-07-21] MEDS: INSULIN REGULAR 250 UNITS in SODIUM CHLORIDE 0.9% 250ML 250 ML IV SCH ×16 (00:49→21:07)
[2017-07-21] MEDS ORDERED: INSULIN ASPART 100 UNITS/ML 3 ML PEN SC SCH (02:00)
[2017-07-21 07:42] LABS: HEMOGLOBIN A1C 8.6 % (4.5-5.6)
[2017-07-21] MEDS ORDERED: INSULIN GLARGINE SOLOSTAR 100 UNITS/ML 3 ML PEN SC ONE ×2 (08:00→14:30)
[2017-07-21] MEDS: INSULIN ASPART 100 UNITS/ML 3 ML PEN SC SCH ×4 (08:01→20:15)
[2017-07-21] MEDS: VENLAFAXINE HCL XR 75 MG CAPXR PO SCH (08:04)
[2017-07-21] MEDS: CYCLOBENZAPRINE HCL 10 MG TAB PO PRN ×2 (08:04→19:55)
[2017-07-21] MEDS: METHYLPREDNISOLONE IV 40 MG in SYRINGE 0 ML IV SCH ×3 (08:04→23:58)
[2017-07-21] MEDS: LOSARTAN/HCTZ 50-12.5 EA TAB PO SCH (08:05)
[2017-07-21] MEDS: FUROSEMIDE 40 MG TAB PO SCH (08:05)
[2017-07-21] MEDS: DILTIAZEM HCL 300 MG CAPCR PO SCH (08:05)
[2017-07-21] MEDS: APIXABAN 2.5 MG TAB PO SCH ×2 (08:05→20:55)
[2017-07-21] MEDS: PANTOprazole SOD 40 MG TAB PO SCH (08:05)
[2017-07-21] MEDS: PERPHENAZINE 2 MG TAB PO SCH ×2 (08:06→20:21)
[2017-07-21] MEDS: METOPROLOL SUCC 50MG EXT REL TAB PO SCH (08:06)
[2017-07-21] MEDS: RANITIDINE HCL 150 MG TAB PO SCH ×2 (08:06→20:20)
[2017-07-21 08:16] LABS: CREATININE 0.62 mg/dl (0.60-1.20)
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
[2017-07-21] MEDS ORDERED: MINERAL OIL ENEMA 133 ML BTL PR PRN (14:15)
--- NOTE | 2017-07-21 14:39 | Pharmacy Progress Note ---
Glycemic Control Intl Consult Date of Service Jul 21, 2017. Scope Glycemic Pharmacist consulted by Dr Lisa on 07/20/17 for glycemic control and to write orders per [facility] inpatient glycemic control protocol Objective Weight (Kilograms): 128.800 Accuchecks BSG (last 24hrs): Test 07/20/17 16:31 07/20/17 20:08 07/20/17 21:50 07/20/17 22:40 Bedside Glucose 342 mg/dl (70-90) 437 mg/dl (70-90) 338 mg/dl (70-90) 328 mg/dl (70-90) Test 07/20/17 23:40 07/21/17 00:40 07/21/17 01:39 07/21/17 02:38 Bedside Glucose 284 mg/dl (70-90) 335 mg/dl (70-90) 293 mg/dl (70-90) 284 mg/dl (70-90) Test 07/21/17 03:33 07/21/17 04:39 07/21/17 05:39 07/21/17 06:40 Bedside Glucose 263 mg/dl (70-90) 238 mg/dl (70-90) 204 mg/dl (70-90) 174 mg/dl (70-90) Test 07/21/17 07:39 07/21/17 08:40 07/21/17 09:38 07/21/17 10:42 Bedside Glucose 195 mg/dl (70-90) 272 mg/dl (70-90) 254 mg/dl (70-90) 188 mg/dl (70-90) Test 07/21/17 11:40 07/21/17 12:52 07/21/17 13:49 Bedside Glucose 158 mg/dl (70-90) 203 mg/dl (70-90) 228 mg/dl (70-90) Laboratory Data (last 24hrs) Test 07/21/17 07:28 Creatinine 0.62 mg/dl HbA1c Test 07/19/17 12:47 Hemoglobin A1c 8.6 % (4.5-5.6) H Recent Pertinent Medications Outpatient Anti-diabetic Regimen: * Lantus 55 units SQ qHS * Novolog 15 units TID with meals * A1c = 8.6 % 07/19/17 The patient is currently receiving: * Basal insulin: Lantus 55 units SQ qHS * Correctional Insulin: Novolog Correction per scale ACHS Goal Range: Low 120 mg/dL - High 160 mg/dL Correction Factor: 20 mg/dL/unit * Prandial insulin: none Risk Factors for Insulin Resistance: * Steroids: SoluMedrol 40mg IV q8h * IVF: Lasix PO * Diet: Type 2 diabetic diet Assessment & Plan ASSESSMENT: * Ms Judge is a 51yo diabetic female well-known to the pharmacy glycemic mgmt service from past admissions. * Patient is admitted with COPD exac and is currently receiving high-dose steroids. * Patient became increasingly hyperglycemic last evening, at which time pharmacy was consulted for glycemic mgmt and patient was initiated on an IV insulin infusion. * Current insulin gtt rate is greater than 25 units/hr. Lantus has been initiated in an attempt to reduce the rate of insulin infusion and aid in transition to SQ insulin when it is appropriate. Expect that patient will require insulin infusion until steroids are markedly reduced. PLAN FOR INPATIENT GLYCEMIC CONTROL: * Contine IV insulin infusion per protocol * Goal Range 140 - 180 mg/dl * Expect that this will need to continue until steroids are tapered significantly * Basal insulin with LANTUS 50 units SQ x2 doses today * Will continue to add Lantus until insulin infusion rates are more reasonable * Correctional Insulin with NOVOLOG PCHS * Goal Range: Low 140 mg/dL - High 180 mg/dL * Correction Factor: per insulin infusion adjustment calculator * Nutritional / Prandial insulin per carb ratio of 1 unit per 3 grams CHO consumed ######### NOT per insulin infusion adjustment calculator ######### * Please note that the plan above was derived based on current level of insulin resistance and hospital stress. These recommendations are appropriate for inpatient admission only. Plan of care upon discharge will need to be reassessed to avoid potential outpatient hypo/hyperglycemia. Thank you.
[2017-07-21] MEDS: IPRATROPIUM BROMIDE NEB SOLN 0.02% 2.5 ML VIAL INH SCH ×2 (15:00→19:26)
[2017-07-21] MEDS: LEVALBUTEROL 0.63MG/3 ML NEB INH SCH ×2 (15:00→19:26)
[2017-07-21] MEDS ORDERED: LEVALBUTEROL/IPRATROPIUM NEB INH SCH (15:00)
[2017-07-21] MEDS ORDERED: POLYETHYLENE (MIRALAX) 17 GM PACK PO PRN (23:00)
[2017-07-21] MEDS ORDERED: POLYETHYLENE (MIRALAX) 17 GM PACK PO SCH (23:15)
[2017-07-22] VITALS (12 sets, daily range): BP systolic 129–161; BP diastolic 67–78; PULSE 63–79; TEMP 36.6–37; O2SAT 90–98; BMI 45.7
[2017-07-22] MEDS: LEVALBUTEROL 0.63MG/3 ML NEB INH SCH ×4 (02:17→20:47)
[2017-07-22] MEDS: IPRATROPIUM BROMIDE NEB SOLN 0.02% 2.5 ML VIAL INH SCH ×4 (02:17→20:47)
[2017-07-22] MEDS ORDERED: NURSING VERBAL MED ORDER ONE (03:45)
[2017-07-22] MEDS: INSULIN GLARGINE SC SCH ×2 (07:58→20:53)
[2017-07-22] MEDS: INSULIN ASPART 100 UNITS/ML 3 ML PEN SC SCH ×4 (08:03→21:21)
[2017-07-22] MEDS: METHYLPREDNISOLONE IV 40 MG in SYRINGE 0 ML IV SCH (08:06)
[2017-07-22] MEDS: RANITIDINE HCL 150 MG TAB PO SCH ×2 (08:06→20:48)
[2017-07-22] MEDS: VENLAFAXINE HCL XR 75 MG CAPXR PO SCH (08:06)
[2017-07-22] MEDS: HYDROCHLOROTHIAZIDE 25 MG TAB PO SCH (08:07)
[2017-07-22] MEDS: VALSARTAN 80 MG TAB PO SCH (08:07)
[2017-07-22] MEDS: FUROSEMIDE 40 MG TAB PO SCH (08:08)
[2017-07-22] MEDS: PANTOprazole SOD 40 MG TAB PO SCH (08:09)
[2017-07-22] MEDS: DILTIAZEM HCL 300 MG CAPCR PO SCH (08:09)
[2017-07-22] MEDS: APIXABAN 2.5 MG TAB PO SCH ×2 (08:10→20:47)
[2017-07-22] MEDS: PERPHENAZINE 2 MG TAB PO SCH ×2 (08:10→20:49)
[2017-07-22 09:00] LABS: BASO % 0.1 %; BASO ABS # 0.01 K/uL (0-0.2); HEMATOCRIT 38.3 % (37-47); HEMOGLOBIN 12.9 g/dL (12.0-16.0); IG# 0.09 K/uL (0.00-0.02); LYMPH ABS # 0.96 K/uL (1.2-3.4); MEAN CELL VOLUME 93.9 fL (80-100); MEAN CORPUSCULAR HEMOGLOBIN 31.6 pg (25-34); MEAN CORPUSCULAR HGB CONC 33.7 g/dl (32-36); MEAN PLATELET VOLUME 10.4 fL (7.4-10.4); MONO % 2.2 %; MONO ABS # 0.35 K/uL (0.11-0.59); NEUT % 91.1 %; NEUT ABS # 14.66 K/uL (1.4-6.5); PLATELET COUNT 229 K/uL (130-400); RED CELL DISTRIBUTION WIDTH CV 14.2 % (11.5-14.5); RED CELL DISTRIBUTION WIDTH SD 48.5 fL (36.4-46.3); WHITE BLOOD COUNT 16.07 K/uL (4.8-10.8)
[2017-07-22] MEDS ORDERED: DILTIAZEM HCL 240 MG CAPCR PO SCH (09:00)
[2017-07-22] MEDS ORDERED: VALSARTAN/HCTZ 320/12.5 MG TAB PO SCH (09:00)
[2017-07-22 09:29] LABS: ALBUMIN 2.8 gm/dl (3.4-5.0); CREATININE 0.89 mg/dl (0.60-1.20); POTASSIUM 3.8 mmol/L (3.5-5.1)
[2017-07-22 09:32] LABS: PHOSPHORUS 3.9 mg/dl (2.5-4.9); TOTAL PROTEIN 6.9 gm/dl (6.4-8.2)
[2017-07-22] MEDS: INSULIN REGULAR 250 UNITS in SODIUM CHLORIDE 0.9% 250ML 250 ML IV SCH ×10 (09:33→23:13)
--- NOTE | 2017-07-22 10:23 | Pharmacy Progress Note ---
Pharmacy Glycemic Short Note 2 Date of Service Jul 22, 2017. Outpatient Anti-diabetic Regimen: * Lantus 55 units SQ qHS * Novolog 15 units TID with meals * A1c = 8.6 % 07/19/17 ASSESSMENT: 07/22/17: * Insulin gtt was steadily titrated upward yesterday, ultimately reaching a rate of ~47 units/hr. BSGs then dropped into the 80's overnight, at which point dextrose was administered and the insulin gtt was placed on hold. * BSGs back in the 300's this morning, so insulin gtt was re-started promptly with the understanding that it will likely be required until patient is no longer receiving high dose steroids. Drip re-initiated at 10 units/hr, with further titration per calculator. * Patient is receiving scheduled Lantus on top of insulin infusion in order to reduce the high requirements of IV insulin and to aid in the future transition to a SQ regimen. 07/21/17 * Ms Jduge is a 51yo diabetic female well-known to the pharmacy glycemic mgmt service from past admissions. * Patient is admitted with COPD exac and is currently receiving high-dose steroids. * Patient became increasingly hyperglycemic last evening, at which time pharmacy was consulted for glycemic mgmt and patient was initiated on an IV insulin infusion. * Current insulin gtt rate is greater than 25 units/hr. Lantus has been initiated in an attempt to reduce the rate of insulin infusion and aid in transition to SQ insulin when it is appropriate. Expect that patient will require insulin infusion until steroids are markedly reduced. PLAN FOR INPATIENT GLYCEMIC CONTROL: * Contine IV insulin infusion per protocol * Goal Range 110 - 190 mg/dl * Expect that this will need to continue until steroids are tapered significantly * Basal insulin with LANTUS 50 units SQ BID * In addition to IV insulin infusion * Correctional Insulin with NOVOLOG PCHS * Goal Range: Low 140 mg/dL - High 180 mg/dL * Correction Factor: per insulin infusion adjustment calculator * Nutritional / Prandial insulin per carb ratio of 1 unit per 3 grams CHO consumed ######### NOT per insulin infusion adjustment calculator ######### * Please note that the plan above was derived based on current level of insulin resistance and hospital stress. These recommendations are appropriate for inpatient admission only. Plan of care upon discharge will need to be reassessed to avoid potential outpatient hypo/hyperglycemia. Thank you.
[2017-07-22] MEDS: CYCLOBENZAPRINE HCL 10 MG TAB PO PRN (17:35)
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
[2017-07-23] MEDS: INSULIN REGULAR 250 UNITS in SODIUM CHLORIDE 0.9% 250ML 250 ML IV SCH ×5 (02:12→08:37)
[2017-07-23] MEDS: LEVALBUTEROL 0.63MG/3 ML NEB INH SCH ×4 (02:13→14:26)
[2017-07-23] MEDS: IPRATROPIUM BROMIDE NEB SOLN 0.02% 2.5 ML VIAL INH SCH ×4 (02:13→14:26)
[2017-07-23 04:00] VITALS: BP 154/76; PULSE 58; TEMP 36.8; O2SAT 96
[2017-07-23 08:00] VITALS: O2SAT 96
[2017-07-23 08:19] LABS: BASO % 0.1 %; BASO ABS # 0.01 K/uL (0-0.2); EOS % 0.2 %; EOS ABS # 0.02 K/uL (0-0.5); HEMATOCRIT 38.6 % (37-47); HEMOGLOBIN 13.1 g/dL (12.0-16.0); IG# 0.08 K/uL (0.00-0.02); LYMPH % 24.5 %; LYMPH ABS # 3.25 K/uL (1.2-3.4); MEAN CELL VOLUME 93.7 fL (80-100); MEAN CORPUSCULAR HEMOGLOBIN 31.8 pg (25-34); MEAN CORPUSCULAR HGB CONC 33.9 g/dl (32-36); MEAN PLATELET VOLUME 10.3 fL (7.4-10.4); MONO ABS # 0.93 K/uL (0.11-0.59); NEUT % 67.6 %; NEUT ABS # 8.97 K/uL (1.4-6.5); PLATELET COUNT 227 K/uL (130-400); RED CELL DISTRIBUTION WIDTH CV 14.2 % (11.5-14.5); RED CELL DISTRIBUTION WIDTH SD 48.3 fL (36.4-46.3); WHITE BLOOD COUNT 13.26 K/uL (4.8-10.8)
[2017-07-23] MEDS: PERPHENAZINE 2 MG TAB PO SCH (08:27)
[2017-07-23] MEDS: PANTOprazole SOD 40 MG TAB PO SCH (08:27)
[2017-07-23] MEDS: VALSARTAN 80 MG TAB PO SCH (08:28)
[2017-07-23] MEDS: HYDROCHLOROTHIAZIDE 25 MG TAB PO SCH (08:28)
[2017-07-23] MEDS: VENLAFAXINE HCL XR 75 MG CAPXR PO SCH (08:29)
[2017-07-23] MEDS: RANITIDINE HCL 150 MG TAB PO SCH (08:29)
[2017-07-23] MEDS: DILTIAZEM HCL 300 MG CAPCR PO SCH (08:29)
[2017-07-23] MEDS: APIXABAN 2.5 MG TAB PO SCH (08:29)
[2017-07-23] MEDS: FUROSEMIDE 40 MG TAB PO SCH (08:30)
[2017-07-23] MEDS ORDERED: APR50 PO (08:33)
[2017-07-23] MEDS ORDERED: DVN80 PO (08:33)
[2017-07-23] MEDS ORDERED: SENN1TAB65 OR (08:33)
[2017-07-23] MEDS ORDERED: HYDR25TA5 PO (08:33)
[2017-07-23] MEDS ORDERED: PRD10 PO (08:33)
[2017-07-23] MEDS ORDERED: MRLP17X PO (08:33)
--- NOTE | 2017-07-23 08:34 | Discharge Instructions ---
Discharge Instructions Date of Service Jul 23, 2017. Admission Reason for Admission: Chest Pain, Cocaine Abuse, Elevated Troponin, Discharge Discharge Diagnosis / Problem: musclo skeletal chest pain, suicide ideation Discharge Goals Goal(s): Decrease discomfort Activity Recommendations Activity Limitations: resume your previous activity . Current Hospital Diet Patient's current hospital diet: Diabetes Type 2 Diet Discharge Diet Recommended Diet: Diabetes Type 2 Diet Pending Studies Studies pending at discharge: no Laboratory Results Hemoglobin A1c Test 07/19/17 12:47 Range/Units Estimated Average Glucose 200 mg/dl Hemoglobin A1c 8.6 H 4.5-5.6 % Medical Emergencies . Who to Call and When: Medical Emergencies: If at any time you feel your situation is an emergency, please call 911 immediately. . Non-Emergent Contact Non-Emergency issues call your: Primary Care Provider . . "Provider Documentation" section prepared by Roxie Soto. . VTE Core Measure Inpt VTE Proph given/why not?: Other Anticoagulation, SCD's
[2017-07-23] MEDS: INSULIN ASPART 100 UNITS/ML 3 ML PEN SC SCH (08:36)
[2017-07-23] MEDS: INSULIN GLARGINE SC SCH (08:37)
[2017-07-23 08:44] LABS: ALBUMIN 2.7 gm/dl (3.4-5.0); CALCIUM 8.7 mg/dl (8.5-10.1); CREATININE 0.62 mg/dl (0.60-1.20); POTASSIUM 3.6 mmol/L (3.5-5.1)
[2017-07-23 08:47] LABS: TOTAL PROTEIN 6.5 gm/dl (6.4-8.2)
[2017-07-23] MEDS ORDERED: INSULIN ASPART 100 UNITS/ML 3 ML PEN SC SCH (11:00)
[2017-07-23 11:07] VITALS: BP 175/73; PULSE 94; TEMP 36.8; O2SAT 90
[2017-07-23 12:00] VITALS: O2SAT 96
--- NOTE | 2017-07-23 12:11 | Psychiatric Progress Notes ---
Progress Note Date of Service Jul 23, 2017. Interval History 51 yo woman with multiple chronic medical conditions, as well as schizoaffective disorder, substance abuse and noncompliance, admitted medically with exacerbation of COPD. we are consulted to evaluate mental status , reports of suicidality and hallucinations. Chief Complaint "I had a bad episode 3:00 this morning". Subjective Patient was seen & assessed interval progress reviewed. The patient is medically cleared for discharge from the medical floor today. She says that she had some suicidal thinking yesterday, but none today. She reports baseline paranoia, specifically that she feels people are out to get her. She reports elevated anxiety but correlates this with the steroids that she is getting. She says that she feels okay to go home although is asking for a list of women' s shelters outside of the area, something she has asked for in the past related to her paranoia that people are out to get her. We have a discussion about her noncompliance with psychiatric recommendations across the board and she says that she has a reason why she forgot her last psychiatric appointment, having forgotten about it because she was meeting with a adult protective caseworker. She agrees to reschedule her own appointment at this time. Review of Systems Constitutional: + fatigue ENT: No hearing loss, No unusual epistaxis, No nasal symptoms, No sore throat, No tinnitus, No dental problems, No trouble swallowing, No problem reported Respiratory: No cough, No sputum, No wheezing, No shortness of breath, No dyspnea on exertion, No dyspnea at rest, No hemoptysis, No problem reported Cardiovascular: No chest pain, No orthopnea, No PND, No edema, No claudication , No palpitations, No problem reported Abdomen: No pain, No nausea, No vomiting, No diarrhea, No constipation, No GI bleeding, No problem reported Musculoskeletal: No joint pain, No muscle pain, No swelling, No calf pain, No problem reported Neurologic: No memory loss, No paralysis, No weakness, No numbness/tingling, No vertigo, No balance problems, No problem reported Psychiatric: + anxiety Integumentary: No rash, No itch, No new/changing skin lesions, No color change , No bleeding, No problem reported Mental Status Exam During interview pt is: alert and oriented Appearance: appropriately dressed (in the hospital gowns) Eye contact is: fair, poor Motor behavior is: no abnormal motor movements, other (lays in bed with eyes closed intermittantly) Speech: normal in rate, rhythm & volume Affect: anxious, other (seems euthymic but states she is"depressed") Mood is: anxious Thought process: goal directed, linear, logical, clear, coherent Thought content: paranoid, delusions Suicidal thought are: denied Homicidal thoughts are: denied Hallucinations: denies auditory, denies visual Cognition: attention grossly intact, language grossly intact Intelligence estimated to be: average Insight: limited Judgement: limited Impression The patient appears to be at her baseline today. She has chronic paranoia that somebody from [place] is out to kill her. She is denying suicidal ideation today. The bigger focus of my meeting with her today was to encourage her to be compliant with outpatient recommendations. She does not take medications as prescribed and does not attend scheduled appointments which has resulted in multiple providers refusing to see her again. She also continues to abuse controlled substances and we have recommended that she not have access to pain medications or benzodiazepines. She continues to abuse cocaine which can only serve to exacerbate her paranoia. I do not think that she is in need of inpatient mental health treatment at this time and is therefore okay for discharge to home from a psychiatric point of view. Plan (1) Schizoaffective disorder, bipolar type (2) Cocaine abuse (3) Suicidal ideation See impression section as above Code 73778 Discharge / Aftercare Planning Primary Care Physician: Name: Dr Ariane Huffman Therapist: Name: None Medical Staff Assistant: Name: Aria Bethea Visit Code E&M Code: 81090 Risk Factors Assessment : No /single/: Yes Health problems: Yes Mental Health Diagnoses: Yes Substance use disorders: Yes Previous attempt: Yes Hopelessness: Yes Smoker: Yes Protective Factors Assessment Religion beliefs: No : No Employed: No Stable relationships: No Supportive family: No Good rapport with provider: No Data Vital Signs Last 24 Hrs: Date Time Temp Pulse Resp B/P (MAP) Pulse Ox O2 Delivery O2 Flow Rate FiO2 07/23/17 11:07 36.8 94 20 175/73 (107) 90 Room Air 07/23/17 08:00 96 Room Air 07/23/17 04:00 36.8 58 18 154/76 (102) 96 Room Air 07/23/17 04:00 Room Air 07/23/17 00:00 Nasal Cannula 2.0 07/22/17 22:41 36.8 79 20 161/78 (105) 97 Nasal Cannula 2.0 07/22/17 20:00 98 Room Air 07/22/17 18:43 37.0 63 20 129/67 (87) 93 Room Air 07/22/17 16:00 98 Room Air 07/22/17 15:04 36.6 66 18 137/67 (90) 90 Room Air 07/22/17 14:24 65 16 97 Room Air 07/22/17 12:00 91 Room Air Meds Administered Last 24 Hrs: Meds Administered (Past 24Hrs) Medications (Trade) Dose Ordered Sig/Lucien Route Start Time Stop Time Status Last Admin Dose Admin Hydralazine HCl (Apresoline Tab) 50 mg BID PO 07/21/17 21:00 08/20/17 20:59 07/23/17 08:26 50 MG Insulin Glargine (Lantus Solostar Pen) 50 units NOW ONCE SC 07/21/17 14:30 07/21/17 14:31 DC 07/21/17 14:39 50 UNITS Valsartan (Diovan Tab) 320 mg DAILY PO 07/22/17 09:00 08/21/17 08:59 07/23/17 08:28 320 MG Hydrochlorothiazide (Hydrochlorothiazide Tab) 12.5 mg DAILY PO 07/22/17 09:00 08/21/17 08:59 07/23/17 08:28 12.5 MG Ipratropium [place] (Atrovent 0.02% 0.5MG/2.5ML Neb) 0.5 mg Q6R INH 07/21/17 15:00 08/20/17 14:59 07/22/17 14:21 0.5 MG Levalbuterol (Xopenex 0.63 Mg/ 3 Ml Neb) 0.63 mg Q6R INH 07/21/17 15:00 08/20/17 14:59 07/22/17 14:21 0.63 MG Insulin Glargine (Lantus Vial) 50 units BID SC 07/22/17 09:00 08/21/17 08:59 07/23/17 08:37 50 UNITS Prednisone (PredniSONE TAB) 40 mg Taper DAILY PO 07/23/17 09:00 07/27/17 08:59 07/23/17 08:26 40 MG Lab Results Last 24 Hrs: Last 24 Hours Test 07/22/17 12:04 07/22/17 12:59 07/22/17 13:57 07/22/17 15:02 Bedside Glucose 183 mg/dl 360 mg/dl 276 mg/dl 228 mg/dl Test 07/22/17 16:01 07/22/17 16:59 07/22/17 18:10 07/22/17 19:04 Bedside Glucose 181 mg/dl 152 mg/dl 195 mg/dl 232 mg/dl Test 07/22/17 20:02 07/22/17 21:00 07/22/17 22:01 07/22/17 23:05 Bedside Glucose 206 mg/dl 164 mg/dl 218 mg/dl 175 mg/dl Test 07/22/17 23:59 07/23/17 00:59 07/23/17 01:30 07/23/17 01:45 Bedside Glucose 165 mg/dl 121 mg/dl 108 mg/dl 117 mg/dl Test 07/23/17 02:07 07/23/17 03:00 07/23/17 03:58 07/23/17 04:31 Bedside Glucose 122 mg/dl 117 mg/dl 102 mg/dl 106 mg/dl Test 07/23/17 05:30 07/23/17 05:53 07/23/17 06:58 07/23/17 07:55 Bedside Glucose 65 mg/dl 161 mg/dl 124 mg/dl White Blood Count 13.26 K/uL Red Blood Count 4.12 M/uL Hemoglobin 13.1 g/dL Hematocrit 38.6 % Mean Corpuscular Volume 93.7 fL Mean Corpuscular Hemoglobin 31.8 pg Mean Corpuscular Hemoglobin Concent 33.9 g/dl Platelet Count 227 K/uL Mean Platelet Volume 10.3 fL Neutrophils (%) (Auto) 67.6 % Lymphocytes (%) (Auto) 24.5 % Monocytes (%) (Auto) 7.0 % Eosinophils (%) (Auto) 0.2 % Basophils (%) (Auto) 0.1 % Neutrophils # (Auto) 8.97 K/uL Lymphocytes # (Auto) 3.25 K/uL Monocytes # (Auto) 0.93 K/uL Eosinophils # (Auto) 0.02 K/uL Basophils # (Auto) 0.01 K/uL RDW Standard Deviation 48.3 fL RDW Coefficient of Variation 14.2 % Immature Granulocyte % (Auto) 0.6 % Immature Granulocyte # (Auto) 0.08 K/uL Sodium Level 137 mmol/L Potassium Level 3.6 mmol/L Chloride Level 101 mmol/L Carbon Dioxide Level 31 mmol/L Anion Gap 5.0 mmol/L Blood Urea Nitrogen 14 mg/dl Creatinine 0.62 mg/dl Est Creatinine Clear Calc Drug Dose 148.1 ml/min Estimated GFR () 120.2 Estimated GFR (Non- 103.7 BUN/Creatinine Ratio 22.8 Random Glucose 96 mg/dl Calcium Level 8.7 mg/dl Magnesium Level 2.5 mg/dl Total Bilirubin 0.3 mg/dl Aspartate Amino Transf (AST/SGOT) 13 U/L Alanine Aminotransferase (ALT/SGPT) 22 U/L Alkaline Phosphatase 115 U/L Total Protein 6.5 gm/dl Albumin 2.7 gm/dl Globulin 3.8 gm/dl Albumin/Globulin Ratio 0.7
--- NOTE | 2017-07-23 13:04 | Pharmacy Progress Note ---
Pharmacy Glycemic Short Note 2 Date of Service Jul 23, 2017. Outpatient Anti-diabetic Regimen: * Lantus 55 units SQ qHS * Novolog 15 units TID with meals * A1c = 8.6 % 07/19/17 ASSESSMENT: 07/23/17: * Steroids were decreased significantly yesterday evening (SoluMedrol 40mg IV q8h --> Prednisone 40/30/20/10 taper). * Okay to stop insulin infusion this am in preparation for transfer to [facility]. Rate was much lower this morning than it has been (~2units/hr). * Will keep Novolog parameters "tight" for now as gtt is stopped to make up for what the gtt was providing. * Expect that all insulin will need to be titrated down now that steroids have been decreased so much. 07/22/17 * Insulin gtt was steadily titrated upward yesterday, ultimately reaching a rate of ~47 units/hr. BSGs then dropped into the 80's overnight, at which point dextrose was administered and the insulin gtt was placed on hold. * BSGs back in the 300's this morning, so insulin gtt was re-started promptly with the understanding that it will likely be required until patient is no longer receiving high dose steroids. Drip re-initiated at 10 units/hr, with further titration per calculator. * Patient is receiving scheduled Lantus on top of insulin infusion in order to reduce the high requirements of IV insulin and to aid in the future transition to a SQ regimen. 07/21/17 * Ms Judge is a 51yo diabetic female well-known to the pharmacy glycemic mgmt service from past admissions. * Patient is admitted with COPD exac and is currently receiving high-dose steroids. * Patient became increasingly hyperglycemic last evening, at which time pharmacy was consulted for glycemic mgmt and patient was initiated on an IV insulin infusion. * Current insulin gtt rate is greater than 25 units/hr. Lantus has been initiated in an attempt to reduce the rate of insulin infusion and aid in transition to SQ insulin when it is appropriate. Expect that patient will require insulin infusion until steroids are markedly reduced. PLAN FOR INPATIENT GLYCEMIC CONTROL: * D/C IV insulin infusion * running at ~2units/hr this morning -- steroids have been decreased significantly * Basal insulin with LANTUS 50 units SQ BID * will begin to cut back now that steroids have been tapered * Correctional Insulin with NOVOLOG [facility] * Goal Range: Low 140 mg/dL - High 180 mg/dL * Correction Factor: 10 mg/dL/unit * Nutritional / Prandial insulin per carb ratio of 1 unit per 3 grams CHO consumed * Please note that the plan above was derived based on current level of insulin resistance and hospital stress. These recommendations are appropriate for inpatient admission only. Plan of care upon discharge will need to be reassessed to avoid potential outpatient hypo/hyperglycemia. Thank you.
[2017-07-23 14:30] VITALS: Ht 167.6 cm; Wt 132.1 kg
[2017-07-23] MEDS ORDERED: ALBINS/ INH (14:37)
[2017-07-23] MEDS ORDERED: ATRINS NEB (14:37)
[2017-07-23 15:07] VITALS: BP 175/73; PULSE 94; TEMP 36.8; O2SAT 96
--- NOTE | 2017-07-23 15:54 | Discharge Summary ---
Discharge Summary Date of Service Jul 23, 2017. Discharge Summary Admission Date: Jul 21, 2017 at 19:53 Discharge Date: Jul 23, 2017 Discharge Disposition: Home with services Principal Diagnosis: chest pain-musculoskeletal Problems/Secondary Diagnoses: (1) Polysubstance (including opioids) dependence, daily use Status: Chronic (2) Schizoaffective disorder Status: Chronic Immunizations: Have You Had Influenza Vaccine: Yes Influenza Vaccine Date: Apr 23, 2012 History of Tetanus Vaccine?: Unknown History of Pneumococcal: Yes Pneumococcal Date: Mar 12, 2011 History of Hepatitis B Vaccine: had one shot of the series Medication Reconciliation New Medications: Albuterol Sulf (Proventil 0.083% 2.5MG/3ML) 2.5 Mg/3 Ml Nebu 2.5 MG INH TID for 7 Days, #25 VIAL 5 Refills for the first week use the nebulizer three times a day afer the first week use it every 8 hours but only when you have shortness of breath or wheezing Mix both albutarol and atrovent in the nebulizer cup and use together. Ipratropium Vermilion (Ipratropium Vermilion) 0.5 Mg/2.5 Ml Nebu 1 VIAL NEB TID for 7 Days, #25 VIAL 5 Refills for the first week use the nebulizer three times a day afer the first week use it every 8 hours but only when you have shortness of breath or wheezing Mix both albutarol and atrovent in the nebulizer cup and use together. Sennosides-Docusate Sodium (Senna Plus) 1 Tab Tab 1 TAB OR BID for 30 Days, #60 Hydralazine HCl (Hydralazine HCl) 50 Mg Tab 50 MG PO BID for 30 Days, #60 TAB Hydrochlorothiazide (Hydrochlorothiazide) 25 Mg Tab 12.5 MG PO DAILY for 30 Days, #15 TAB Polyethylene (Miralax) 17 Gm Pow 17 GM PO BID PRN for Constipation for 30 Days, #30 Prednisone (Prednisone) 10 Mg Tab 30 MG PO DAILY for 3 Days, #6 TAB take 30mg (3 tabs) day # 1 take 20mg (2 tabs) day # 2 take 10mg (1 tabs) day # 3 then stop Valsartan (Diovan) 80 Mg Tab 320 MG PO DAILY for 30 Days, #30 Continued Medications: Albuterol Hfa (Ventolin Hfa) 200 Puffs/11918 Mcg Aers 2 PUFFS INH Q6H PRN for SOB/Wheezing Albuterol Sulf (Proventil 0.083% 2.5MG/3ML) 2.5 Mg/3 Ml Nebu 2.5 MG INH QID PRN for Wheezing, EA Apixaban (Eliquis) 5 Mg Tab 5 MG PO BID Chlorpromazine Hcl (Thorazine) 25 Mg Tab 50 MG PO Q6H PRN for PSYCHOSIS, #5 TAB Cyclobenzaprine Hcl (Flexeril) 10 Mg Tab 10 MG PO TID, TAB Diltiazem Hcl Coated Beads (Cartia Xt) 300 Mg Cap 300 MG PO DAILY Furosemide (Furosemide) 40 Mg Tab 40 MG PO QAM Insulin Aspart (Novolog) 100 Units/Ml Inj 15 UNITS SQ TIDM Insulin Glargine (Basaglar Kwikpen) 100 Unit/Ml Inj 55 UNITS SQ HS Ipratropium-Albuterol (Duoneb) 3 Ml Nebu 1 TREATMENT INH Q6H PRN for Shortness of Breath Ipratropium-Albuterol (Combivent Respimat) 1 Aer Aer 1 PUFFS INH QID, INH Lactulose (Chronulac) 10 Gm/15 Ml Syrp 20 GM PO DAILY PRN for Constipation Mometasone Furoate-Formoterol (Dulera 200/5 Mcg) 1 Aer Aer 2 PUFFS INH BID, INHALER Omeprazole (Prilosec) 20 Mg Cap 20 MG PO QAM Perphenazine (Trilafon) 16 Mg Tab 16 MG PO BID, #14 Ranitidine HCl (Ranitidine HCl) 150 Mg Tab 150 MG PO BID Trazodone Hcl (Desyrel) 150 Mg Tab 150 MG PO HS PRN for Insomnia Valacyclovir HCl (Valacyclovir HCl) 500 Mg Tab 500 MG PO QAM Venlafaxine Hcl (Effexor Extended Rel) 75 Mg Capcr 75 MG PO QAM, #1 No prescription provided. Pt states she has supply at home. Discontinued Medications: Hctz/Losartan (Hyzaar 12.5MG/50MG) Tab 1 TAB PO QAM, TAB Loratadine (Claritin) 10 Mg Tab 10 MG PO DAILY PRN for PRN, TAB Metoprolol Succ (Toprol Xl) (Toprol-Xl ) 100 Mg Tabcr 100 MG PO QAM, TAB Discharge Exam Review of Systems: Constitutional: No fever, No chills, No sweats, No weight loss, No weakness , No fatigue, No problem reported Eyes: No worsening of vision, No eye pain, No redness, No discharge, No diplopia, No problem reported ENT: No hearing loss, No unusual epistaxis, No nasal symptoms, No sore throat, No tinnitus, No dental problems, No trouble swallowing, No problem reported Respiratory: No cough, No sputum, No wheezing, No shortness of breath, No dyspnea on exertion, No dyspnea at rest, No hemoptysis, No problem reported Cardiovascular: No chest pain, No orthopnea, No PND, No edema, No claudication, No palpitations, No problem reported Abdomen: No pain, No nausea, No vomiting, No diarrhea, No constipation, No GI bleeding, No problem reported Musculoskeletal: No joint pain, No muscle pain, No swelling, No calf pain, No problem reported Genitourinary - Female: No dysuria, No urinary frequency, No urinary urgency , No urinary incontinence, No urinary retention, No hematuria, No dysmenorrhea, No menorrhagia, No metrorrhagia, No rash, No vaginal bleeding, No vaginal discharge, No vaginal itching, No vulvodynia, No , No problem reported Neurologic: No memory loss, No paralysis, No weakness, No numbness/tingling , No vertigo, No balance problems, No problem reported Psychiatric: No depression symptoms, No anhedonism, No anxiety, No insomnia , No substance abuse, No problem reported Endocrine: No fatigue, No excessive thirst, No excessive urination, No problem reported Hematologic / Lymphatic: No abnormal bleeding/bruising, No clotting problems , No swollen lymph nodes, No night sweats, No problem reported Integumentary: No rash, No itch, No new/changing skin lesions, No color change, No bleeding, No problem reported Physical Exam: General Appearance: no apparent distress, + obese Eyes: normal inspection, EOMI ENT: normal ENT inspection, hearing grossly normal Neck: supple Respiratory/Chest: chest non-tender, lungs clear, normal breath sounds, no respiratory distress, no accessory muscle use Cardiovascular: regular rate, rhythm, no edema, no gallop, no JVD, no murmur , normal peripheral pulses Abdomen / GI: normal bowel sounds, non tender, soft, no organomegaly, no pulsatile mass Extremities: normal inspection, no calf tenderness, normal capillary refill , no pedal edema Neurologic/Psychiatric: 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 During the course of the week however, she has been complaining of midsternum, dull chest pain which radiates straight to the back. She reports she did not do cocaine earlier in the week when the pain began. She did snort cocaine on Friday however. She reports that her chest pain occurred after falling on her buttock earlier in the week. She states that the chest pain is mild and unrelated to exertion. After the fall, she noticed that her left buttock swelled and and significant bruising. She is chronically on eliquis and recently had a fall on buttocks and since with bruise that makes it painful to sit. States she feels very constipated and hasn't had BM in several days. She reports that last night after drinking and doing cocaine, she had thoughts of hurting herself. She came to the ER and was to be admitted under psych for suicidal ideation. However, during the course of time she was here. She states she had chest pain and was to be admitted under medicine. Pt has been hospitalized for COPD exacerbations in the past and has been on steroids for her COPD. Pt wears 2LNC at night at home." Patient was admitted to telemetry. Serial cardiac enzymes showed initially slightly elevated troponin but it stayed flat. Emergency Care Attendant consult was appreciated. Based on EKG and serial cardiac enzymes and the nature of the pain, implementation coordinator was able to rule out ACS. Recommended to stop metoprolol Urine metoprolol was stopped her blood pressure went slightly up. continued Cardizem 300 mg daily plus added hydralazine 50 mg twice a day instead of metoprolol Increase dose of Diovan to 360 mg daily, monitor renal function for her A. fib, she was continued on Eliquis she was found to have Clinically suspected obstructive sleep apnea, and instructed to have sleep study as an outpatient. found to have COPD exacerbation. started on steroids/bronchodilators, blood sugar significantly increased , she was started on insulin drip . Yesterday I switched IV Solu-Medrol to oral prednisone . Blood sugar improved after that Xopenex/Atrovent, avoid albuterol She was found to have Left gluteal hematoma warm compresses were applied and pain improved Suicidal Ideation on admission, she was placed on suicidal precaution and 1to 1 sitter, after that she was evaluated by psychiatrist and suicidal ideation resolved Severe constipation resolved by Fleet enema she she was cleared by psychiatrist for discharge to home and follow-up with outpatient psychiatry unit. Total Time Spent: Greater than 30 minutes This includes examination of the patient, discharge planning, medication reconciliation, and communication with other providers. Discharge Instructions Please refer to the electronic Patient Visit Report (Discharge Instructions) for additional information.
== END 2017-07-23 15:32 | disposition home or self-care (01) | DRG 313 ==
LOC: EDBD 14:14 → C.EDA 14:18 → C.MED 07-19 15:13 → ENRESERV 07-19 15:35 → OBSVTOIN 07-21 19:53
PROVIDERS: ADMIT Internal Medicine Sports Medicine; ATTEND Internal Medicine
DX: R07.89 Other chest pain (principal); J44.1 Chronic obstructive pulmonary disease with (acute) exacerbation; F11.20 Opioid dependence, uncomplicated; R45.851 Suicidal ideations; I48.91 Unspecified atrial fibrillation; E11.9 Type 2 diabetes mellitus without complications; F32.9 Major depressive disorder, single episode, unspecified; I10 Essential (primary) hypertension; E66.9 Obesity, unspecified; G47.30 Sleep apnea, unspecified; F17.200 Nicotine dependence, unspecified, uncomplicated; S30.0XXA Contusion of lower back and pelvis, initial encounter; W19.XXXA Unspecified fall, initial encounter; F20.9 Schizophrenia, unspecified; K59.00 Constipation, unspecified; Z86.711 Personal history of pulmonary embolism; I25.2 Old myocardial infarction; Z79.4 Long term (current) use of insulin; Z82.49 Family history of ischemic heart disease and other diseases of the circulatory system

== ENCOUNTER → 2018-02-13 | Outpatient (CLI) | payer OTHER ==
[~2018-02-13] VITALS: Ht 167.6 cm; Wt 125.5 kg
[~2018-02-13] MED LIST changes: +APR50 PO; -ATOR-24 PO; +BACL1TAB PO; -CLR10 PO; -CYCL10TA6 PO; -EFFSR75 PO; +HYDR25TA5 PO; -HYZ/50125 PO; +INSPMPHMLG SQ; -IPRASOL4 INH; -LACT10SO17 PO; +LACT10SO3 PO; -METO100T44 PO; -MOME200A INH; -NVLG SQ; +PERP1TAB10 PO; -RANI150T2 PO; -THR25 PO; +TIOT1SPR INH; +TRAZ100T29 PO; -TRAZ1TAB52 PO; +VALS-59 PO
[2018-02-13 14:10] VITALS: BP 101/66; PULSE 102; Ht 167.6 cm; Wt 125.5 kg
== END | disposition home or self-care (01) ==
LOC: C.NEUR 13:54
PROVIDERS: ATTEND Internal Medicine Pulmonary Disease
DX: G47.33 Obstructive sleep apnea (adult) (pediatric) (principal); E66.9 Obesity, unspecified; G47.19 Other hypersomnia

== ENCOUNTER 2018-07-05 17:29 | Inpatient (IN) ==
[2018-07-05] MEDS ORDERED: ASPIRIN CHEW 324 MG PO STA (17:38)
--- NOTE | 2018-07-05 18:06 | XRay Report ---
SINGLE VIEW CHEST CLINICAL HISTORY: Atypical chest pain. FINDINGS: An AP, portable, upright chest radiograph is compared to study dated 12/29/2017 and correlate d with chest CT dated 02/03/2016. The examination is degraded by portable technique, large body habitus , and patient rotation. The heart is top normal for projection. There is bibasilar atelectasis. The lungs and pleural spaces are otherwise clear. No pneumothorax is seen. The bony thorax is grossly int act. Degenerative change is noted in the shoulders. IMPRESSION: No acute cardiopulmonary abnormality. Electronically signed by: Valerio Copeland M.D. 07/05/2018 6:04 PM
[2018-07-05 18:24] LABS: Basophils # (auto) 0.02 K/uL (0-0.2); Basophils % (auto) 0.3 %; Eosinophils # (auto) 0.09 K/uL (0-0.5); Eosinophils % (auto) 1.5 %; Hematocrit (blood only) 39.6 % (37-47); Hemoglobin 13.8 g/dL (12.0-16.0); Immature Granulocytes # (auto) 0.02 K/uL (0.00-0.02); Immature Granulocytes % (auto) 0.3 %; Lymphocytes # (auto) 1.42 K/uL (1.2-3.4); Lymphocytes % (auto) 24.1 %; Mean Corpuscular Hgb Conc 34.8 g/dL (32-36); Mean Corpuscular Volume 94.7 fL (80-100); Mean Platelet Volume 9.2 fL (7.4-10.4); Monocytes # (auto) 0.49 K/uL (0.11-0.59); Monocytes % (auto) 8.3 %; Neutrophils # (auto) 3.85 K/uL (1.4-6.5); Neutrophils % (auto) 65.5 %; Platelet Count 210 K/uL (130-400); RDW Coefficient of Variation 14.9 % (11.5-14.5); RDW Standard Deviation 50.9 fL (36.4-46.3); Red Blood Count 4.18 M/uL (4.2-5.4); White Blood Count 5.89 K/uL (4.8-10.8)
[2018-07-05 18:43] LABS: Albumin Level 3.3 gm/dl (3.4-5.0); BUN Creatinine Ratio 10.2 (10-20); Calcium 8.9 mg/dl (8.5-10.1); Creatinine Clr Calc Pharmacy 117.2 ml/min; Est GFR (African American) 107.2; Est GFR (Non-African American) 92.5; Potassium 3.5 mmol/L (3.5-5.1)
[2018-07-05 18:45] LABS: Albumin Globulin Ratio 0.7 (0.9-2); Bilirubin,Total 0.3 mg/dl (0.2-1); Globulin 4.4 gm/dl (2.5-4.0); Total Protein 7.7 gm/dl (6.4-8.2)
[2018-07-05 18:53] LABS: Acetaminophen < 2 ug/ml (10-30)
[2018-07-05 18:54] LABS: Salicylate 5.4 mg/dl (2.8-20)
[2018-07-05] MEDS ORDERED: AMIODARONE / D5W 150 MG/100 ML BAG IV ONE (19:13)
[2018-07-05] MEDS ORDERED: POTASSIUM CHLORIDE 10 MEQ TABCR PO STA (19:29)
--- NOTE | 2018-07-05 19:29 | Emergency Department Note ---
Entered by Octavia Saeed acting as a scribe for History of Present Illness General Chief complaint: Chest Pain Stated complaint: chest pains, depression Time Seen by Provider: 07/05/18 17:37 Source: patient Mode of arrival: ambulatory Limitations: no limitations History of Present Illness Provider complaint: Chest pain Onset (ago): day(s) 2 Location: chest Radiation: non-radiation Pain Consistency: + intermittent Maximum Pain Intensity: 9 Quality: + other (pain) Relieved By: + none Associated symptoms: + cough (productive), + loss of appetite, + shortness of breath and + other (Additional symptoms: heart racing, leg tingling, suicidal ideations, depression. Denies: arm pain, elevated blood sugar levels); no fever/ chills and no nausea/vomiting The patient is a 52 year old female with a history of diabetes, hypertension, neuropathy, sciatic nerve disease, COPD, fatty liver, depression, schizophrenia , ETOH abuse, cocaine abuse, and tobacco use disorder who presents to the Emergency Room with complaints of intermittent chest pain starting 2 days ago. The patient reports that her chest pain has been accompanied by heart racing. She also complains of leg tingling, a productive cough, and shortness of breath that worsens with exertion. She notes that she wears 2L oxygen at night and smokes less than 10 cigarettes a day. The patient further reports that she has lately experienced a loss of appetite and occasional suicidal ideations secondary to increasing depression. She states that her older brothers live at her house, get on her nerves, and are constantly "cussing her out," which upsets her. She notes that she considered if "her heart just stopped beating" earlier today. She denies any arm pain, vomiting, fevers, and elevated blood sugar levels. The patient reports that her PCP is Dr. Nelson. Home Medications Home Medications Medication Instructions Recorded Confirmed Type albuterol sulfate 2.5 mg INHALATION QID PRN 07/05/18 07/05/18 History albuterol sulfate [Ventolin HFA] 2 puff INHALATION Q6H PRN 07/05/18 07/05/18 History apixaban [Eliquis] 5 mg PO DAILY 07/05/18 07/05/18 History baclofen 10 mg PO TID PRN 07/05/18 07/05/18 History diltiazem HCl 300 mg PO DAILY 07/05/18 07/05/18 History hydralazine 50 mg PO BID 07/05/18 07/05/18 History hydrochlorothiazide 12.5 mg PO DAILY 07/05/18 07/05/18 History insulin glargine [Basaglar KwikPen 55 unit SUBCUT HS 07/05/18 07/05/18 History U-100 Insulin] insulin lispro [Humalog KwikPen 15 unit SUBCUT AC 07/05/18 07/05/18 History Insulin] ipratropium-albuterol [Combivent 1 puff INHALATION QID 07/05/18 07/05/18 History Respimat] lactulose 20 g PO DAILY PRN 07/05/18 07/05/18 History omeprazole 20 mg PO DAILY 07/05/18 07/05/18 History perphenazine 18 mg PO QAM 07/05/18 07/05/18 History perphenazine 18 mg PO QAM 07/05/18 07/05/18 History tiotropium bromide [Spiriva 2 puff INHALATION DAILY 07/05/18 07/05/18 History Respimat] trazodone 200 mg PO HS PRN 07/05/18 07/05/18 History valacyclovir 500 mg PO DAILY 07/05/18 07/05/18 History valsartan 320 mg PO DAILY 07/05/18 07/05/18 History Allergies Allergy/AdvReac Type Severity Reaction Status Date / Time haloperidol Allergy Severe TONGUE Verified 07/05/18 18:23 SWELLING insulin lispro Allergy Intermediate HIVES Verified 07/05/18 18:23 phenol Allergy Intermediate HIVES Verified 07/05/18 18:23 citalopram Allergy Mild ITCHING Verified 07/05/18 18:23 sulfamethoxazole Allergy Mild RASH Verified 07/05/18 18:23 trimethoprim Allergy Mild RASH Verified 07/05/18 18:23 Bactrim Allergy Unknown RASH Verified 12/01/17 16:09 Penicillins Allergy Unknown UNKNOWN Verified 07/05/18 18:23 topiramate AdvReac Severe SEIZURE Verified 07/05/18 18:23 LIKE ACTIVITY morphine AdvReac Mild HEADACHE Verified 07/05/18 18:23 oxycodone AdvReac Mild ITCH Verified 07/05/18 18:23 Margarine Allergy Severe RASH Uncoded 07/05/18 18:23 Past Med/Surg History Medical History Tobacco use disorder (Chronic) History of opioid abuse (Chronic) Cocaine abuse (Chronic) Hx of suicide attempt (Resolved) Diabetes (Chronic) COPD (chronic obstructive pulmonary disease) (Chronic) Fatty liver (Chronic) Elevated troponin (Chronic) Obesity (Chronic) HTN (hypertension) (Chronic) Sleep apnea (Chronic) Neuropathy (Chronic) Sciatic nerve disease (Chronic) Atrial fibrillation (Chronic) Epistaxis, recurrent (Chronic) Chronic generalized pain disorder (Chronic) Schizoaffective disorder, bipolar type (Chronic) COPD with exacerbation (Acute) Alcohol induced acute pancreatitis (Acute) ETOH abuse Surgical History H/O ovarian cystectomy (Resolved) H/O foot surgery (Resolved) Social History marital status: single current occupational status: unemployed and disabled Feels Safe at Home: Yes Smoking Status: Current every day smoker Hx Alcohol Use: Yes Hx Substance Use: Yes substance use type: crack/cocaine and opiates Preferred Language: Finnish Review of Systems See HPI for pertinent positives & negatives. and A total of 10 systems reviewed and were otherwise negative Physical Exam Vital Signs Vital Signs - 24 hr 07/05/18 17:32 07/05/18 18:00 07/05/18 18:25 Temperature 37.2 C Temperature Source Oral Sepsis Recent Fever Within 48 Hours No Sepsis New/Unexplained Change in Mental Status No Sepsis Action Taken by Nursing No Action Required Pulse Rate 89 86 Respiratory Rate 18 Respiratory Effort / Characteristics Non-Labored Spontaneous Respiratory Depth Normal Respiratory Pattern Regular Blood Pressure 175/98 H Blood Pressure Mean 123 Pulse Oximetry 96 96 90 Oxygen Delivery Method Room Air Nasal Cannula Room Air Oxygen Flow Rate 2 07/05/18 18:31 Temperature Temperature Source Sepsis Recent Fever Within 48 Hours Sepsis New/Unexplained Change in Mental Status Sepsis Action Taken by Nursing Pulse Rate Respiratory Rate Respiratory Effort / Characteristics Respiratory Depth Respiratory Pattern Blood Pressure Blood Pressure Mean Pulse Oximetry 90 Oxygen Delivery Method Room Air Oxygen Flow Rate Vital signs reviewed. General: Obese female, in no significant distress. HEENT: No scleral icterus, PERRLA, neck supple. Atraumatic. Cardiovascular: Regular rate and rhythm, no extra sounds. Pulmonary: Wheezing throughout bilateral lung landry, normal work of breathing. Abdomen: Soft, nontender, nondistended, positive bowel sounds. Musculoskeletal: Atraumatic, no peripheral edema. Neurologic: Patient awake alert and oriented x 3 Skin: Warm, dry, no rash Psych: Passive SI, negative HI Course 1740: Past medical records reviewed. The patient was evaluated in room C5, and a complete history and physical examination were performed. 1899: The patient was observed to have 2 separate non-sustained runs of v tach at this time. 1908: I checked on the patient and updated her on her results. 1911: I reviewed the patient's case with Nathanael Baez PA-C for [facility]. Tennille will evaluate the patient for further management. Consultations Consultation #1: I reviewed the patient's case with Nathanael Baez PA-C for [facility]. Tennille will evaluate the patient for further management. Time: 19:12 Administered Medications Discontinued Medications Aspirin (Aspirin) 324 mg PO NOW STA Stop: 07/05/18 17:39 Last Admin: 07/05/18 17:59 Dose: 324 mg Medical Decision Making Differential Diagnosis Differential diagnosis: Etiologies such as gastroenteritis, food borne illness, infections, appendicitis , diverticulitis, inflammatory bowel disease, obstruction, GI bleed, biliary pathology, cardiac process, intracranial process, as well as others were entertained. Medical Records Attestation: I reviewed the patient's medical records. Home Medications Current Medication List: was personally reviewed by me Laboratory Data Attestation: I reviewed the patient's lab results. Result diagrams: 07/05/18 18:15 07/05/18 18:15 Lab Results 07/05/18 07/05/18 07/05/18 Range/Units 18:15 18:15 18:15 WBC 5.89 (4.8-10.8) K/uL RBC 4.18 L (4.2-5.4) M/uL Hgb 13.8 (12.0-16.0) g/dL Hct 39.6 (37-47) % MCV 94.7 (80-100) fL MCH 33.0 (25-34) pg MCHC 34.8 (32-36) g/dL RDW Std Deviation 50.9 H (36.4-46.3) fL RDW Coeff of Ally 14.9 H (11.5-14.5) % Plt Count 210 (130-400) K/uL MPV 9.2 (7.4-10.4) fL Immature Gran % (Auto) 0.3 % Neut % (Auto) 65.5 % Lymph % (Auto) 24.1 % [place] % (Auto) 8.3 % Eos % (Auto) 1.5 % Baso % (Auto) 0.3 % Immature Gran # (Auto) 0.02 (0.00-0.02) K/uL Neut # (Auto) 3.85 (1.4-6.5) K/uL Lymph # (Auto) 1.42 (1.2-3.4) K/uL [place] # (Auto) 0.49 (0.11-0.59) K/uL Eos # (Auto) 0.09 (0-0.5) K/uL Baso # (Auto) 0.02 (0-0.2) K/uL Sodium 137 (136-145) mmol/L Potassium 3.5 (3.5-5.1) mmol/L Chloride 102 (98-107) mmol/L Carbon Dioxide 29 (21-32) mmol/L Anion Gap 6.0 (3-11) BUN 7 (7-18) mg/dl Creatinine 0.74 (0.6-1.2) mg/dl Est Cr Clr Drug Dosing 117.2 ml/min Est GFR ( Amer) 107.2 Est GFR (Non-Af Amer) 92.5 BUN/Creatinine Ratio 10.2 (10-20) Glucose 127 H (70-99) mg/dl Calcium 8.9 (8.5-10.1) mg/dl Total Bilirubin 0.3 (0.2-1) mg/dl AST 22 (15-37) U/L ALT 46 (12-78) U/L Alkaline Phosphatase 126 H (45-117) U/L POC Troponin I (0-0.045) ng/ml Total Protein 7.7 (6.4-8.2) gm/dl Albumin 3.3 L (3.4-5.0) gm/dl Globulin 4.4 H (2.5-4.0) gm/dl Albumin/Globulin Ratio 0.7 L (0.9-2) Lipase 310 (73-393) U/L Salicylates 5.4 (2.8-20) mg/dl Acetaminophen < 2 L (10-30) ug/ml 07/05/18 Range/Units 18:25 WBC (4.8-10.8) K/uL RBC (4.2-5.4) M/uL Hgb (12.0-16.0) g/dL Hct (37-47) % MCV (80-100) fL MCH (25-34) pg MCHC (32-36) g/dL RDW Std Deviation (36.4-46.3) fL RDW Coeff of Ally (11.5-14.5) % Plt Count (130-400) K/uL MPV (7.4-10.4) fL Immature Gran % (Auto) % Neut % (Auto) % Lymph % (Auto) % [place] % (Auto) % Eos % (Auto) % Baso % (Auto) % Immature Gran # (Auto) (0.00-0.02) K/uL Neut # (Auto) (1.4-6.5) K/uL Lymph # (Auto) (1.2-3.4) K/uL [place] # (Auto) (0.11-0.59) K/uL Eos # (Auto) (0-0.5) K/uL Baso # (Auto) (0-0.2) K/uL Sodium (136-145) mmol/L Potassium (3.5-5.1) mmol/L Chloride (98-107) mmol/L Carbon Dioxide (21-32) mmol/L Anion Gap (3-11) BUN (7-18) mg/dl Creatinine (0.6-1.2) mg/dl Est Cr Clr Drug Dosing ml/min Est GFR ( Amer) Est GFR (Non-Af Amer) BUN/Creatinine Ratio (10-20) Glucose (70-99) mg/dl Calcium (8.5-10.1) mg/dl Total Bilirubin (0.2-1) mg/dl AST (15-37) U/L ALT (12-78) U/L Alkaline Phosphatase (45-117) U/L POC Troponin I 0.10 H (0-0.045) ng/ml Total Protein (6.4-8.2) gm/dl Albumin (3.4-5.0) gm/dl Globulin (2.5-4.0) gm/dl Albumin/Globulin Ratio (0.9-2) Lipase (73-393) U/L Salicylates (2.8-20) mg/dl Acetaminophen (10-30) ug/ml Imaging Data Radiologist's Impression: Radiology results as stated below per my review and the radiologist's interpretation: SINGLE VIEW CHEST CLINICAL HISTORY: Atypical chest pain. FINDINGS: An AP, portable, upright chest radiograph is compared to study dated and correlated with chest CT dated 02/03/2016. The examination is degraded by portable technique, large body habitus, and patient rotation. The heart is top normal for projection. There is bibasilar atelectasis. The lungs and pleural spaces are otherwise clear. No pneumothorax is seen. The bony thorax is grossly intact. Degenerative change is noted in the shoulders. IMPRESSION: No acute cardiopulmonary abnormality. Electronically signed by: Valerio Copeland M.D. 07/05/2018 6:04 PM ECG Data Attestation: I personally reviewed and interpreted this ECG as follows: Indication: chest pain Rate (beats per minute): 92 Rhythm: sinus rhythm Findings: + other (previous septal infarct), + PAC and + ectopy; no acute ischemic change Blood Pressure Blood Pressure Findings: Elevated blood pressure Blood Pressure Disposition: further management by hospitalist MDM Narrative This patient was evaluated and appeared to be in no significant distress. IV access was obtained and laboratory work was drawn. The patient was placed on the manager cosmetics and found to be in a normal sinus rhythm. Chest x-ray was performed and is negative. EKG reveals chronic change, PAC appreciated. Patient's laboratory work reveals a troponin of 0.10 which is chronic according to her previous laboratory work. She is mildly hyperglycemic. Patient was observed on telemetry and found to have 2 separate runs of nonsustained V. tach. IV amiodarone 150 mg was ordered. Case was discussed with the hospitalist service, Jayda Griffin PA-C. She has accepted the patient on behalf of Dr. Lema and will evaluate for admission. Patient is aware of the plan and agrees. Impression & Plan Non-sustained ventricular tachycardia Discharge Plan Visit Data Chief Complaint: Chest Pain Stated Complaint: chest pains, depression ED Provider: Lise Jeter Discharge Problem: Non-sustained ventricular tachycardia Patient Disposition: Admitted As Inpatient Forms Stand Alone Forms: Call Back Authorization, [facility] Prescriptions Prescriptions: No Action perphenazine 2 mg Tablet 18 mg PO QAM RF: 0 albuterol sulfate 2.5 mg /3 mL (0.083 %) Solution For Nebulization 2.5 mg INHALATION QID PRN (Reason: Shortness Of Breath Or Wheezing) RF: 0 valacyclovir 500 mg Tablet 500 mg PO DAILY RF: 0 trazodone 100 mg Tablet 200 mg PO HS PRN (Reason: Sleep) RF: 0 baclofen 10 mg Tablet 10 mg PO TID PRN (Reason: Muscle Spasm) RF: 0 valsartan 320 mg Tablet 320 mg PO DAILY RF: 0 hydralazine 50 mg Tablet 50 mg PO BID RF: 0 albuterol sulfate [Ventolin HFA] 90 mcg/actuation Hfa Aerosol Inhaler 2 puff INHALATION Q6H PRN (Reason: Shortness Of Breath Or Wheezing) RF: 0 lactulose 20 gram Packet 20 g PO DAILY PRN (Reason: Constipation) RF: 0 perphenazine 16 mg Tablet 18 mg PO QAM RF: 0 insulin lispro [Humalog KwikPen Insulin] 100 unit/mL Insulin Pen 15 unit SUBCUT AC RF: 0 diltiazem HCl 300 mg Tablet Extended Release 24 Hr 300 mg PO DAILY RF: 0 hydrochlorothiazide 12.5 mg Tablet 12.5 mg PO DAILY RF: 0 insulin glargine [Basaglar KwikPen U-100 Insulin] 100 unit/mL (3 mL) Insulin Pen 55 unit SUBCUT HS RF: 0 omeprazole 20 mg Tablet,Delayed Release (Dr/Ec) 20 mg PO DAILY RF: 0 tiotropium bromide [Spiriva Respimat] 2.5 mcg/actuation Mist 2 puff INHALATION DAILY RF: 0 apixaban [Eliquis] 5 mg Tablet 5 mg PO DAILY RF: 0 ipratropium-albuterol [Combivent Respimat] 20-100 mcg/actuation Mist 1 puff INHALATION QID RF: 0 Referrals Referrals: Marisel Nelson MD [Primary Care Provider] - The scribe's documentation has been prepared under my direction and personally reviewed by me in its entirety. I confirm that the note above accurately reflects all work, treatment, procedures, and medical decision making performed by me.
[2018-07-05 19:57] LABS: Magnesium 2.1 mg/dl (1.8-2.4)
[2018-07-05] MEDS ORDERED: DOXYCYCLINE HYCLATE 100 MG in DEXTROSE 5% 100 ML IV STA (20:12)
--- NOTE | 2018-07-05 20:13 | History & Physical Report ---
Date of Service July 05, 2018 Assessment & Plan (1) Chest pain: Associated with palpitations and shortness of breath symptoms Multifactorial : ? Symptomatic VT, in the setting of hypertensive urgency, cocaine intake/ alcohol abuse COPD exacerbation, complicated bronchitis, ongoing tobacco abuse, no sepsis chronic respiratory failure secondary to COPD on home O2 PAF on Eliquis px NSR, not fully compliant with recommended NOAC dosing history of TIAs as per records DM 2 insulin requiring, reasonable control as of recent outpatient hemoglobin A1c of 7.6 last March 2018 mood disorder/paranoid schizophrenia Patient currently depressed with fleeting suicidal ideations. PCU Augment low normal potassium, facilitate home BP meds, may need titration TTE, Cardiology consult RE cp, NSVT Doxycycline, nebs, prednisone course for complicated bronchitis Patient counseled about the importance of taking NOAC as prescribed dosing frequency. DT precautions Psych consult RE depression with suicidal ideations Basal insulin, ISS BG goal 140-180 Nicotine patch as needed Patient strongly counseled about hazards of substance abuse. DVT prophylaxis. Eliquis Full code Case discussed with Dr. 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 He recommends holding off on administration of full Amiodarone infusion for NSVT for now given multiple personal factors precipitating arrhythmia. History of Present Illness Chief Complaint: Chest pain Primary Care Provider: Marisel Nelson MD History obtained from patient and records. Medical history significant for chronic respiratory failure secondary to COPD on home O2, PAF on Eliquis, history of TIAs, hypertension, DM 2 insulin requiring, mood disorder/paranoid schizophrenia, history ongoing cocaine/alcohol /tobacco abuse. Recent confinement November 2017 for alcoholic pancreatitis and COPD exacerbation. The last few months patient noted intermittent palpitations. The last few days, palpitations noted to be more frequent. Patient also would experience pleuritic substernal pain with shortness of breath and diaphoresis. Junky cough symptoms, worsening shortness of breath, denies aspiration. Admits to being more depressed than usual with fleeting suicidal thoughts. Patient also admits to increased alcohol and cocaine consumption the last few days. Patient taking Eliquis pill once a day instead of twice a day for months now due to concerns about bleeding. At the ER, patient noted to have NSVT episode lasting 15 seconds. IV Amiodarone bolus given at the ER. Patient more comfortable at the emergency room. Allergies Allergy/AdvReac Type Severity Reaction Status Date / Time haloperidol Allergy Severe TONGUE Verified 07/05/18 18:23 SWELLING insulin lispro Allergy Intermediate HIVES Verified 07/05/18 18:23 phenol Allergy Intermediate HIVES Verified 07/05/18 18:23 citalopram Allergy Mild ITCHING Verified 07/05/18 18:23 sulfamethoxazole Allergy Mild RASH Verified 07/05/18 18:23 trimethoprim Allergy Mild RASH Verified 07/05/18 18:23 Bactrim Allergy Unknown RASH Verified 12/01/17 16:09 Penicillins Allergy Unknown UNKNOWN Verified 07/05/18 18:23 topiramate AdvReac Severe SEIZURE Verified 07/05/18 18:23 LIKE ACTIVITY morphine AdvReac Mild HEADACHE Verified 07/05/18 18:23 oxycodone AdvReac Mild ITCH Verified 07/05/18 18:23 Margarine Allergy Severe RASH Uncoded 07/05/18 18:23 Home Medications Home Medications Medication Instructions Recorded Confirmed Type albuterol sulfate 2.5 mg INHALATION QID PRN 07/05/18 07/05/18 History albuterol sulfate [Ventolin HFA] 2 puff INHALATION Q6H PRN 07/05/18 07/05/18 History apixaban [Eliquis] 5 mg PO DAILY 07/05/18 07/05/18 History baclofen 10 mg PO TID PRN 07/05/18 07/05/18 History diltiazem HCl 300 mg PO DAILY 07/05/18 07/05/18 History hydralazine 50 mg PO BID 07/05/18 07/05/18 History hydrochlorothiazide 12.5 mg PO DAILY 07/05/18 07/05/18 History insulin glargine [Basaglar KwikPen 55 unit SUBCUT HS 07/05/18 07/05/18 History U-100 Insulin] insulin lispro [Humalog KwikPen 15 unit SUBCUT AC 07/05/18 07/05/18 History Insulin] ipratropium-albuterol [Combivent 1 puff INHALATION QID 07/05/18 07/05/18 History Respimat] lactulose 20 g PO DAILY PRN 07/05/18 07/05/18 History omeprazole 20 mg PO DAILY 07/05/18 07/05/18 History perphenazine 18 mg PO QAM 07/05/18 07/05/18 History perphenazine 18 mg PO QAM 07/05/18 07/05/18 History tiotropium bromide [Spiriva 2 puff INHALATION DAILY 07/05/18 07/05/18 History Respimat] trazodone 200 mg PO HS PRN 07/05/18 07/05/18 History valacyclovir 500 mg PO DAILY 07/05/18 07/05/18 History valsartan 320 mg PO DAILY 07/05/18 07/05/18 History Past Med/Surg History Medical History Tobacco use disorder (Chronic) History of opioid abuse (Chronic) Cocaine abuse (Chronic) Hx of suicide attempt (Resolved) Diabetes (Chronic) COPD (chronic obstructive pulmonary disease) (Chronic) Fatty liver (Chronic) Elevated troponin (Chronic) Obesity (Chronic) HTN (hypertension) (Chronic) Sleep apnea (Chronic) Neuropathy (Chronic) Sciatic nerve disease (Chronic) Atrial fibrillation (Chronic) Epistaxis, recurrent (Chronic) Chronic generalized pain disorder (Chronic) Schizoaffective disorder, bipolar type (Chronic) COPD with exacerbation (Acute) Alcohol induced acute pancreatitis (Acute) ETOH abuse Surgical History H/O ovarian cystectomy (Resolved) H/O foot surgery (Resolved) Family History Other Heart disease Social History marital status: single Current Living Situation: Family Current Living Situation Comment: LIVES WITH BROTHERS current occupational status: unemployed and disabled Other Information That Helps Us Care for You: No Feels Safe at Home: Yes and No Is there a partner from a previous relationship who is making you feel unsafe now?: No Any Concerns about Your Family Situation : Yes (SOMETIMES FEELS LIKE BROTHERS MAY HURT EACHOTHER OR HER) Would You Like to Speak to Someone About Your Situation: Yes (PSYCHIATRIST, CONSULT ORDERED) Safety Concerns: Feels Safe At This Time Smoking Status: Current every day smoker Tobacco Type: cigarettes Cigarettes per Day: 10 Do You Dip or Chew Tobacco: No Second Hand Exposure: Yes Tobacco Cessation Education Requested by Patient: No Hx Alcohol Use: Yes Alcohol type: beer, wine and hard liquor Alcohol Intake Frequency: 0-2 drinks per day Hx Substance Use: Yes substance use type: crack/cocaine Last Used Substance: Hours (ago) Last Used Substance Other:: YESTERDAY Beliefs That Will Affect Care: None Preferred Language: Maltese Communication Ability: Effective Review of Systems As per HPI, all 10 systems reviewed, all other ROS negative Physical Exam 2 Vital Signs (Past 24 Hours): Last Vital Signs Temp 37.2 C 07/05/18 17:32 Pulse 90 07/05/18 19:45 Resp 22 07/05/18 19:45 BP 129/51 L 07/05/18 19:45 Pulse Ox 95 07/05/18 19:45 Results & Data Laboratory Results Laboratory Results WBC 5.89 K/uL (4.8-10.8) 07/05/18 18:15 RBC 4.18 M/uL (4.2-5.4) L 07/05/18 18:15 Hgb 13.8 g/dL (12.0-16.0) 07/05/18 18:15 Hct 39.6 % (37-47) 07/05/18 18:15 MCV 94.7 fL (80-100) 07/05/18 18:15 MCH 33.0 pg (25-34) 07/05/18 18:15 MCHC 34.8 g/dL (32-36) 07/05/18 18:15 RDW Std Deviation 50.9 fL (36.4-46.3) H 07/05/18 18:15 RDW Coeff of Ally 14.9 % (11.5-14.5) H 07/05/18 18:15 Plt Count 210 K/uL (130-400) 07/05/18 18:15 MPV 9.2 fL (7.4-10.4) 07/05/18 18:15 Immature Gran % (Auto) 0.3 % 07/05/18 18:15 Neut % (Auto) 65.5 % 07/05/18 18:15 Lymph % (Auto) 24.1 % 07/05/18 18:15 [place] % (Auto) 8.3 % 07/05/18 18:15 Eos % (Auto) 1.5 % 07/05/18 18:15 Baso % (Auto) 0.3 % 07/05/18 18:15 Immature Gran # (Auto) 0.02 K/uL (0.00-0.02) 07/05/18 18:15 Neut # (Auto) 3.85 K/uL (1.4-6.5) 07/05/18 18:15 Lymph # (Auto) 1.42 K/uL (1.2-3.4) 07/05/18 18:15 [place] # (Auto) 0.49 K/uL (0.11-0.59) 07/05/18 18:15 Eos # (Auto) 0.09 K/uL (0-0.5) 07/05/18 18:15 Baso # (Auto) 0.02 K/uL (0-0.2) 07/05/18 18:15 Sodium 137 mmol/L (136-145) 07/05/18 18:15 Potassium 3.5 mmol/L (3.5-5.1) 07/05/18 18:15 Chloride 102 mmol/L (98-107) 07/05/18 18:15 Carbon Dioxide 29 mmol/L (21-32) 07/05/18 18:15 Anion Gap 6.0 (3-11) 07/05/18 18:15 BUN 7 mg/dl (7-18) 07/05/18 18:15 Creatinine 0.74 mg/dl (0.6-1.2) 07/05/18 18:15 Est Cr Clr Drug Dosing 117.2 ml/min 07/05/18 18:15 Est GFR ( Amer) 107.2 07/05/18 18:15 Est GFR (Non-Af Amer) 92.5 07/05/18 18:15 BUN/Creatinine Ratio 10.2 (10-20) 07/05/18 18:15 Glucose 127 mg/dl (70-99) H 07/05/18 18:15 Calcium 8.9 mg/dl (8.5-10.1) 07/05/18 18:15 Magnesium 2.1 mg/dl (1.8-2.4) 07/05/18 18:15 Total Bilirubin 0.3 mg/dl (0.2-1) 07/05/18 18:15 AST 22 U/L (15-37) 07/05/18 18:15 ALT 46 U/L (12-78) 07/05/18 18:15 Alkaline Phosphatase 126 U/L (45-117) H 07/05/18 18:15 POC Troponin I 0.10 ng/ml (0-0.045) H 07/05/18 18:25 Total Protein 7.7 gm/dl (6.4-8.2) 07/05/18 18:15 Albumin 3.3 gm/dl (3.4-5.0) L 07/05/18 18:15 Globulin 4.4 gm/dl (2.5-4.0) H 07/05/18 18:15 Albumin/Globulin Ratio 0.7 (0.9-2) L 07/05/18 18:15 Lipase 310 U/L (73-393) 07/05/18 18:15 TSH 1.050 uIu/ml (0.300-4.500) 07/05/18 18:15 Salicylates 5.4 mg/dl (2.8-20) 07/05/18 18:15 Acetaminophen < 2 ug/ml (10-30) L 07/05/18 18:15 Diagnostic Findings Chest CTA initial read: No pulmonary embolism, hepatic steatosis EKG as per my interpretation rate 90 NSR LAD LAFB septal infarct PVCs
[2018-07-05] MEDS ORDERED: MULTI-VITAMIN INFUSION 10 ML, THIAMINE HCL 100 MG, FOLIC ACID 1 MG, POTASSIUM CHLORIDE ... IV STA (20:14)
[2018-07-05] MEDS ORDERED: HydrALAZINE TAB 50 MG TAB PO STA (20:15)
[2018-07-05] MEDS ORDERED: DEXTROSE 50% 50 ML SYRINGE IV PRN (20:21)
[2018-07-05] MEDS ORDERED: GLUCOSE 10 TABS/TUBE PO PRN (20:21)
[2018-07-05] MEDS ORDERED: GLUCAGON FOR INJ 1 MG VIAL SQ PRN (20:21)
[2018-07-05] MEDS ORDERED: GLUCOSE 40% GEL 15 GM TUBE PO PRN (20:21)
[2018-07-05] MEDS ORDERED: CARBOHYDRATES FOR HYPOGLYCEMIA PO PRN (20:21)
[2018-07-05 20:28] LABS: Amphetamines+Metham, Urine Neg (Neg); Barbiturates, Urine Neg (Neg); Benzodiazepine, Urine Neg (Neg); Cocaine, Urine Pos (Neg); MDMA (Ecstacy), Urine Neg (Neg); Methadone, Urine Neg (Neg); Opiate, Urine Neg (Neg); Phencyclidine, Urine Neg (Neg)
[2018-07-05] MEDS ORDERED: methylPREDNISolone 20 MG in SYRINGE 0 ML IV SCH (20:45)
[2018-07-05 21:14] LABS: Partial Thromboplastin Ratio 1.1; Partial Thromboplastin Time 27.6 Seconds (21.0-31.0)
[2018-07-05] MEDS ORDERED: LISINOPRIL 5 MG TAB PO ONE (22:02)
[2018-07-05] MEDS ORDERED: LACTULOSE SYRUP 20 GM/30 ML UDC PO PRN (22:24)
[2018-07-05] MEDS ORDERED: LORazepam 3 MG/6 ML VIAL IV PRN (22:24)
[2018-07-05] MEDS ORDERED: PROCHLORPERAZINE 5 MG in SYRINGE 4 ML IV PRN (22:24)
[2018-07-05] MEDS ORDERED: GABAPENTIN 1200MG ALCOHOL WITHDRAWAL LOAD PO STA (22:24)
[2018-07-05] MEDS ORDERED: ATIVAN IV ALCOHOL WITHDRAWL IV SCH (22:24)
[2018-07-05] MEDS ORDERED: LORazepam 2 MG/4 ML VIAL IV PRN (22:24)
[2018-07-05] MEDS ORDERED: TRAZODONE HCL 100 MG TAB PO PRN (22:24)
[2018-07-05] MEDS ORDERED: LORazepam 1 MG/2 ML VIAL IV PRN (22:24)
[2018-07-05] MEDS ORDERED: ACETAMINOPHEN 325 MG TAB PO PRN (22:24)
[2018-07-05] MEDS ORDERED: NITROGLYCERIN SL 0.4 MG/TAB TAB SL PRN (22:24)
[2018-07-05 23:04] LABS: Pregnancy Test, Urine Negative (Negative)
[2018-07-05] MEDS ORDERED: GABAPENTIN 600 MG TAB PO STA (23:45)
[2018-07-06 00:38] LABS: Appearance Urine Clear (Clear); Bacteria Urine Automated Negative (Negative); Bilirubin Urine Negative (Negative); Cast Urine Automated 0 /lpf (0-5); Color Urine Yellow; Glucose Urine UA Negative (Negative); Ketones Urine Negative (Negative); Leukocyte Esterase Urine Negative (Negative); Nitrite Urine Negative (Negative); Specific Gravity Urine 1.014 (1.000-1.030); Urobilinogen Urine Negative (Negative); WBC Urine Automated 0 /hpf (0-5)
[2018-07-06 00:43] LABS: Protein Urine Negative (Negative)
[2018-07-06] MEDS: APIXABAN 5 MG TABLET PO SCH ×3 (01:19→21:04)
[2018-07-06] MEDS: INSULIN ASPART 100 UNITS/ML 3 ML PEN SC SCH ×5 (01:24→21:05)
[2018-07-06] MEDS: INSULIN GLARGINE 100 UNIT/ML VIAL SC SCH ×3 (01:25→21:04)
[2018-07-06] MEDS: IPRATROPIUM BROMIDE NEB SOLN 0.02% 2.5 ML VIAL INH SCH ×4 (01:50→19:22)
[2018-07-06] MEDS ORDERED: OPTIRAY 320 125ml IV PRN (01:50)
[2018-07-06] MEDS: LEVALBUTEROL 1.25MG/0.5ML NEB INH SCH ×4 (01:50→19:22)
[2018-07-06] MEDS ORDERED: XOPENEX/ATROVENT 1.25mg/0.5MG NEB COMBO NEB SCH (02:00)
[2018-07-06] MEDS ORDERED: LISINOPRIL 2.5 MG TAB PO ONE (02:48)
[2018-07-06] MEDS: GABAPENTIN 600 MG TAB PO SCH ×3 (05:00→22:11)
[2018-07-06] MEDS: dilTIAZem ER 120 MG CAPCR PO SCH (05:01)
[2018-07-06] MEDS: dilTIAZem ER 180 MG CAPCR PO SCH (05:01)
--- NOTE | 2018-07-06 06:43 | CT Scan Report ---
CT ANGIOGRAM OF THE CHEST CLINICAL HISTORY: Atypical chest pain and shortness of breath. Possible pulmonary embolus. COMPARISON STUDY: Chest x-ray dated 07/05/2018, CT scan dated 02/03/2016 TECHNIQUE: Following the IV administration of 108 mL of Optiray-320, CT angiogram of the thorax was p erformed from the thoracic inlet to the lung bases utilizing the pulmonary embolus protocol. Images a re reviewed in the axial, sagittal, and coronal planes. IV contrast was administered without complica tion. MIP imaging was performed. A dose lowering technique was utilized adhering to the principles o f ALARA. CT DOSE: 769.43 mGy.cm FINDINGS: There is hepatic steatosis. No pathologically enlarged axillary mediastinal or hilar lymph nodes were visualized. There was no evidence of thoracic aortic dilatation. There were no pulmonary artery filling defects to indicate acute pulmonary embolism. No pleural effusions are visualized. There is respiratory motion artifact. There is no focal pulmonary consolidation. IMPRESSION: 1. No evidence of acute pulmonary embolism 2. No evidence of focal pulmonary consolidation 3. Hepatic steatosis Electronically signed by: aDwood Diaz M.D. 07/06/2018 6:42 AM
[2018-07-06 07:39] LABS: Troponin I 0.292 ng/ml (0-0.045)
[2018-07-06] MEDS ORDERED: PERPHENAZINE PO SCH (09:00)
[2018-07-06] MEDS ORDERED: PANTOprazole 40 MG TAB PO SCH (09:00)
--- NOTE | 2018-07-06 09:20 | Cardiology Consultation ---
Date of Consultation July 06, 2018 Assessment & Plan (1) Non-sustained ventricular tachycardia: Could be secondary to cocaine abuse. She has not had any further recurrence with only evidence of ventricular tachycardia being 07/05/2018 and 1900 while in the emergency department. Continue diltiazem. It was recommended that she stop using cocaine. Monitor electrolytes. At this time, would not recommend anti rhythmic therapy. Remain on telemetry while hospitalized. She has not had any syncope and echo reported normal left ventricular systolic function. (2) Prolonged QT interval: Her QT is only slightly elevated. This could be secondary to the fact that she did receive some amiodarone. Repeat ECG tomorrow. Avoid medications which can prolong QT. (3) Atrial fibrillation: She has not had any atrial fibrillation during this hospitalization. Can continue anticoagulation for stroke risk reduction if no contraindications. Continue diltiazem. (4) HTN (hypertension): Blood pressure has been mostly elevated. Titrate medications as appropriate. Given her substance abuse, compliance may be an issue with her prescribed medications. (5) Elevated troponin: Her troponins are chronically minimally elevated. She did not rule in for myocardial infarction. She has chronically had atypical chest pain. No further ischemic evaluation is recommended at this time. She has had cardiac catheterization in the past for chest pain and elevated troponins and did not have any significant CAD. (6) Chest pain: She denies chest pain currently. She has a history of chronic atypical chest pain. No further ischemic evaluation recommended at this time unless she should have new objective findings concerning for ischemic heart disease. Cocaine could also cause her chest discomfort. Disposition: Cardiology will sign off at this time. Please call with any other questions or concerns. Thank you for allowing me to participate in the care of your patient. Please call for any other questions or concerns. Sincerely, Paulo Castillo M.D. History of Present Illness Reason for Consultation: Ventricular Tachycardia Requesting Physician: Dr. Smith Attending Physician: Viktor Durant MD History of Present Illness Ms. Judge is a 52-year-old female with a history significant for paroxysmal atrial fibrillation, COPD, diabetes, pulmonary embolism, hypertension, schizoaffective disorder, and cocaine abuse. Cardiology was consulted for nonsustained ventricular tachycardia. She has had the following studies/procedures: 1. Echo 09/24/14: Minimally dilated LV with low-normal systolic function. EF 55% . No definite regional wall motion abnormalities. No significant valvular abnormalities. 2. Myocardial perfusion study 09/25/14: Poor quality study without clear cut evidence of infarct or ischemia. Wall motion, EF, and transient ischemic dilation rati,o were difficult to determine given poor quality of study. 3. Cardiac catheterization 11/10/14: No evidence of coronary artery disease. Mildly elevated LVEDP 18 mmHg. 4. Echocardiogram 04/12/2016: Left ventricle mildly dilated. Mildly reduced LV systolic function (EF 45-50%). Mild global hypokinesis. 5. Echocardiogram 08/10/2016: Low-normal left ventricular systolic function ( EF 50-55%). No regional wall motion abnormalities. Mild tricuspid regurgitation. 6. Echo 07/06/2018: Normal LV size, wall motion, systolic function. EF 60-65% . Mild LVH. Type 1 diastolic dysfunction. Sclerotic aortic valve without significant stenosis. She is currently sedated following Ativan administration. She is arousable to verbal stimuli and answered a few questions with very few words and would fall back to sleep. She denies any chest pain, palpitations, current shortness of breath, syncope, near-syncope, or edema. She does have back pain. According to admitting records, she reported to the emergency department with chest pain. She also apparently has had intermittent palpitations, but she has had these in the past as well. She complained of URI type symptoms with cough and shortness of breath. She also admitted to being more depressed with fleeting suicidal thoughts according to records. In the emergency department she was seen on telemetry to have nonsustained ventricular tachycardia of 10 beats and 7 beats. She was given amiodarone according to records. Review of systems: As above. Review of systems otherwise unremarkable or unobtainable as patient is currently sedated and is not partaking in conversation currently. Social history: She admits to smoking stating she smokes approximately 10 cigarettes per day. She continues to abuse cocaine. Family history: According to records she lives with her brothers. There is no family or friends currently at the bedside. Allergies Allergy/AdvReac Type Severity Reaction Status Date / Time haloperidol Allergy Severe TONGUE Verified 07/05/18 18:23 SWELLING insulin lispro Allergy Intermediate HIVES Verified 07/05/18 18:23 phenol Allergy Intermediate HIVES Verified 07/05/18 18:23 citalopram Allergy Mild ITCHING Verified 07/05/18 18:23 sulfamethoxazole Allergy Mild RASH Verified 07/05/18 18:23 trimethoprim Allergy Mild RASH Verified 07/05/18 18:23 Bactrim Allergy Unknown RASH Verified 12/01/17 16:09 Penicillins Allergy Unknown UNKNOWN Verified 07/05/18 18:23 topiramate AdvReac Severe SEIZURE Verified 07/05/18 18:23 LIKE ACTIVITY morphine AdvReac Mild HEADACHE Verified 07/05/18 18:23 oxycodone AdvReac Mild ITCH Verified 07/05/18 18:23 Margarine Allergy Severe RASH Uncoded 07/05/18 18:23 Home Medications Home Medications Medication Instructions Recorded Confirmed Type albuterol sulfate 2.5 mg INHALATION QID PRN 07/05/18 07/05/18 History albuterol sulfate [Ventolin HFA] 2 puff INHALATION Q6H PRN 07/05/18 07/05/18 History apixaban [Eliquis] 5 mg PO DAILY 07/05/18 07/05/18 History baclofen 10 mg PO TID PRN 07/05/18 07/05/18 History diltiazem HCl 300 mg PO DAILY 07/05/18 07/05/18 History hydralazine 50 mg PO BID 07/05/18 07/05/18 History hydrochlorothiazide 12.5 mg PO DAILY 07/05/18 07/05/18 History insulin glargine [Basaglar KwikPen 55 unit SUBCUT HS 07/05/18 07/05/18 History U-100 Insulin] insulin lispro [Humalog KwikPen 15 unit SUBCUT AC 07/05/18 07/05/18 History Insulin] ipratropium-albuterol [Combivent 1 puff INHALATION QID 07/05/18 07/05/18 History Respimat] lactulose 20 g PO DAILY PRN 07/05/18 07/05/18 History omeprazole 20 mg PO DAILY 07/05/18 07/05/18 History perphenazine 18 mg PO QAM 07/05/18 07/05/18 History perphenazine 18 mg PO QAM 07/05/18 07/05/18 History tiotropium bromide [Spiriva 2 puff INHALATION DAILY 07/05/18 07/05/18 History Respimat] trazodone 200 mg PO HS PRN 07/05/18 07/05/18 History valacyclovir 500 mg PO DAILY 07/05/18 07/05/18 History valsartan 320 mg PO DAILY 07/05/18 07/05/18 History Patient History Social History marital status: single Current Living Situation: Family Current Living Situation Comment: LIVES WITH BROTHERS current occupational status: unemployed and disabled Other Information That Helps Us Care for You: No Feels Safe at Home: Yes and No Is there a partner from a previous relationship who is making you feel unsafe now?: No Any Concerns about Your Family Situation : Yes (SOMETIMES FEELS LIKE BROTHERS MAY HURT EACHOTHER OR HER) Would You Like to Speak to Someone About Your Situation: Yes (PSYCHIATRIST, CONSULT ORDERED) Safety Concerns: Feels Safe At This Time Smoking Status: Current every day smoker Tobacco Type: cigarettes Cigarettes per Day: 10 Do You Dip or Chew Tobacco: No Second Hand Exposure: Yes Tobacco Cessation Education Requested by Patient: No Hx Alcohol Use: Yes Alcohol type: beer, wine and hard liquor Alcohol Intake Frequency: 0-2 drinks per day Hx Substance Use: Yes substance use type: crack/cocaine Last Used Substance: Hours (ago) Last Used Substance Other:: YESTERDAY Beliefs That Will Affect Care: None Preferred Language: Citizen Of [place] Communication Ability: Effective Physical Exam 2 Vital Signs (Past 24 Hours): Last Vital Signs Temp 36.8 C 07/06/18 07:42 Pulse 82 07/06/18 07:42 Resp 20 07/06/18 07:42 BP 152/88 H 07/06/18 07:42 Pulse Ox 96 07/06/18 07:42 Physical Exam: Gen.: No acute distress. Somnolent but arousable with verbal stimuli. HEENT: Anicteric sclera. Neck: Thick neck. No bruits. Normal carotid upstrokes bilaterally. Cardiac: PMI was nonpalpable. No ventricular heave. Regular rate and rhythm. Normal S1-S2. No audible murmurs, rubs, or gallops. Pulmonary: Bilateral expiratory wheezing throughout. Abdomen: Obese. Soft, nontender, nondistended, with normoactive bowel sounds. No bruits noted. Extremities: 2+ radial pulses bilaterally. 2+ posterior tibialis pulses bilaterally. No edema or cyanosis. No palpable cords. Results & Data Laboratory Results Laboratory Results - last 24 hr 07/05/18 07/05/18 07/05/18 18:15 18:15 18:15 WBC 5.89 RBC 4.18 L Hgb 13.8 Hct 39.6 MCV 94.7 MCH 33.0 MCHC 34.8 RDW Std Deviation 50.9 H RDW Coeff of Ally 14.9 H Plt Count 210 MPV 9.2 Immature Gran % (Auto) 0.3 Neut % (Auto) 65.5 Lymph % (Auto) 24.1 Woodward % (Auto) 8.3 Eos % (Auto) 1.5 Baso % (Auto) 0.3 Immature Gran # (Auto) 0.02 Neut # (Auto) 3.85 Lymph # (Auto) 1.42 [place] # (Auto) 0.49 Eos # (Auto) 0.09 Baso # (Auto) 0.02 APTT PTT Ratio Sodium 137 Potassium 3.5 Chloride 102 Carbon Dioxide 29 Anion Gap 6.0 BUN 7 Creatinine 0.74 Est Cr Clr Drug Dosing 117.2 Est GFR ( Amer) 107.2 Est GFR (Non-Af Amer) 92.5 BUN/Creatinine Ratio 10.2 Glucose 127 H POC Glucose Calcium 8.9 Magnesium Total Bilirubin 0.3 AST 22 ALT 46 Alkaline Phosphatase 126 H Total Creatine Kinase POC Troponin I Troponin I Total Protein 7.7 Albumin 3.3 L Globulin 4.4 H Albumin/Globulin Ratio 0.7 L Lipase 310 Folate TSH Urine Color Urine Appearance Urine pH Ur Specific Thayer Urine Protein Urine Glucose (UA) Urine Ketones Urine Blood Urine Nitrite Urine Bilirubin Urine Urobilinogen Ur Leukocyte Esterase Urine WBC (Auto) Urine RBC (Auto) U Hyaline Cast (Auto) U Epithel Cells (Auto) Urine Bacteria (Auto) Urine Test Salicylates 5.4 Urine Opiates Screen Ur Methadone, Qual Acetaminophen < 2 L Urine Barbiturates Ur Phencyclidine (PCP) U Amphetamin/Meth Scrn MDMA (Ecstasy) Screen U Benzodiazepines Scrn Ur Cocaine Metabolite U Marijuana (THC) Screen Ethyl Alcohol mg/dL Hepatitis C Ab Screen 07/05/18 07/05/18 07/05/18 18:15 18:15 18:25 WBC RBC Hgb Hct MCV MCH MCHC RDW Std Deviation RDW Coeff of Ally Plt Count MPV Immature Gran % (Auto) Neut % (Auto) Lymph % (Auto) Woodward % (Auto) Eos % (Auto) Baso % (Auto) Immature Gran # (Auto) Neut # (Auto) Lymph # (Auto) [place] # (Auto) Eos # (Auto) Baso # (Auto) APTT 27.6 PTT Ratio 1.1 Sodium Potassium Chloride Carbon Dioxide Anion Gap BUN Creatinine Est Cr Clr Drug Dosing Est GFR ( Amer) Est GFR (Non-Af Amer) BUN/Creatinine Ratio Glucose POC Glucose Calcium Magnesium 2.1 Total Bilirubin AST ALT Alkaline Phosphatase Total Creatine Kinase POC Troponin I 0.10 H Troponin I Total Protein Albumin Globulin Albumin/Globulin Ratio Lipase Folate TSH 1.050 Urine Color Urine Appearance Urine pH Ur Specific Thayer Urine Protein Urine Glucose (UA) Urine Ketones Urine Blood Urine Nitrite Urine Bilirubin Urine Urobilinogen Ur Leukocyte Esterase Urine WBC (Auto) Urine RBC (Auto) U Hyaline Cast (Auto) U Epithel Cells (Auto) Urine Bacteria (Auto) Urine Test Salicylates Urine Opiates Screen Ur Methadone, Qual Acetaminophen Urine Barbiturates Ur Phencyclidine (PCP) U Amphetamin/Meth Scrn MDMA (Ecstasy) Screen U Benzodiazepines Scrn Ur Cocaine Metabolite U Marijuana (THC) Screen Ethyl Alcohol mg/dL Hepatitis C Ab Screen 07/05/18 07/05/18 07/05/18 20:00 20:04 20:36 WBC RBC Hgb Hct MCV MCH MCHC RDW Std Deviation RDW Coeff of Ally Plt Count MPV Immature Gran % (Auto) Neut % (Auto) Lymph % (Auto) Woodward % (Auto) Eos % (Auto) Baso % (Auto) Immature Gran # (Auto) Neut # (Auto) Lymph # (Auto) [place]ward # (Auto) Eos # (Auto) Baso # (Auto) APTT PTT Ratio Sodium Potassium Chloride Carbon Dioxide Anion Gap BUN Creatinine Est Cr Clr Drug Dosing Est GFR ( Amer) Est GFR (Non-Af Amer) BUN/Creatinine Ratio Glucose POC Glucose 126 H Calcium Magnesium Total Bilirubin AST ALT Alkaline Phosphatase Total Creatine Kinase POC Troponin I Troponin I Total Protein Albumin Globulin Albumin/Globulin Ratio Lipase Folate TSH Urine Color Urine Appearance Urine pH Ur Specific Thayer Urine Protein Urine Glucose (UA) Urine Ketones Urine Blood Urine Nitrite Urine Bilirubin Urine Urobilinogen Ur Leukocyte Esterase Urine WBC (Auto) Urine RBC (Auto) U Hyaline Cast (Auto) U Epithel Cells (Auto) Urine Bacteria (Auto) Urine Test Negative Salicylates Urine Opiates Screen Neg Ur Methadone, Qual Neg Acetaminophen Urine Barbiturates Neg Ur Phencyclidine (PCP) Neg U Amphetamin/Meth Scrn Neg MDMA (Ecstasy) Screen Neg U Benzodiazepines Scrn Neg Ur Cocaine Metabolite Pos H U Marijuana (THC) Screen Neg Ethyl Alcohol mg/dL Hepatitis C Ab Screen 07/05/18 07/05/18 07/05/18 22:28 22:37 22:37 WBC RBC Hgb Hct MCV MCH MCHC RDW Std Deviation RDW Coeff of Ally Plt Count MPV Immature Gran % (Auto) Neut % (Auto) Lymph % (Auto) Woodward % (Auto) Eos % (Auto) Baso % (Auto) Immature Gran # (Auto) Neut # (Auto) Lymph # (Auto) [place]ward # (Auto) Eos # (Auto) Baso # (Auto) APTT PTT Ratio Sodium Potassium Chloride Carbon Dioxide Anion Gap BUN Creatinine Est Cr Clr Drug Dosing Est GFR ( Amer) Est GFR (Non-Af Amer) BUN/Creatinine Ratio Glucose POC Glucose 161 H Calcium Magnesium Total Bilirubin AST ALT Alkaline Phosphatase Total Creatine Kinase POC Troponin I Troponin I 0.316 H* Total Protein Albumin Globulin Albumin/Globulin Ratio Lipase Folate 10.20 TSH Urine Color Urine Appearance Urine pH Ur Specific Thayer Urine Protein Urine Glucose (UA) Urine Ketones Urine Blood Urine Nitrite Urine Bilirubin Urine Urobilinogen Ur Leukocyte Esterase Urine WBC (Auto) Urine RBC (Auto) U Hyaline Cast (Auto) U Epithel Cells (Auto) Urine Bacteria (Auto) Urine Test Salicylates Urine Opiates Screen Ur Methadone, Qual Acetaminophen Urine Barbiturates Ur Phencyclidine (PCP) U Amphetamin/Meth Scrn MDMA (Ecstasy) Screen U Benzodiazepines Scrn Ur Cocaine Metabolite U Marijuana (THC) Screen Ethyl Alcohol mg/dL Hepatitis C Ab Screen 07/05/18 07/05/18 07/06/18 22:37 22:42 00:15 WBC RBC Hgb Hct MCV MCH MCHC RDW Std Deviation RDW Coeff of Ally Plt Count MPV Immature Gran % (Auto) Neut % (Auto) Lymph % (Auto) Woodward % (Auto) Eos % (Auto) Baso % (Auto) Immature Gran # (Auto) Neut # (Auto) Lymph # (Auto) [place]ward # (Auto) Eos # (Auto) Baso # (Auto) APTT PTT Ratio Sodium Potassium Chloride Carbon Dioxide Anion Gap BUN Creatinine Est Cr Clr Drug Dosing Est GFR ( Amer) Est GFR (Non-Af Amer) BUN/Creatinine Ratio Glucose POC Glucose Calcium Magnesium Total Bilirubin AST ALT Alkaline Phosphatase Total Creatine Kinase POC Troponin I Troponin I Total Protein Albumin Globulin Albumin/Globulin Ratio Lipase Folate TSH Urine Color Yellow Urine Appearance Clear Urine pH 8.0 H Ur Specific Thayer 1.014 Urine Protein Negative Urine Glucose (UA) Negative Urine Ketones Negative Urine Blood Negative Urine Nitrite Negative Urine Bilirubin Negative Urine Urobilinogen Negative Ur Leukocyte Esterase Negative Urine WBC (Auto) 0 Urine RBC (Auto) 0-4 U Hyaline Cast (Auto) 0 U Epithel Cells (Auto) 10-20 H Urine Bacteria (Auto) Negative Urine Test Salicylates Urine Opiates Screen Ur Methadone, Qual Acetaminophen Urine Barbiturates Ur Phencyclidine (PCP) U Amphetamin/Meth Scrn MDMA (Ecstasy) Screen U Benzodiazepines Scrn Ur Cocaine Metabolite U Marijuana (THC) Screen Ethyl Alcohol mg/dL < 3.0 Hepatitis C Ab Screen Neg 07/06/18 07/06/18 06:07 07:41 WBC RBC Hgb Hct MCV MCH MCHC RDW Std Deviation RDW Coeff of Ally Plt Count MPV Immature Gran % (Auto) Neut % (Auto) Lymph % (Auto) [place]ward % (Auto) Eos % (Auto) Baso % (Auto) Immature Gran # (Auto) Neut # (Auto) Lymph # (Auto) [place] # (Auto) Eos # (Auto) Baso # (Auto) APTT PTT Ratio Sodium Potassium Chloride Carbon Dioxide Anion Gap BUN Creatinine Est Cr Clr Drug Dosing Est GFR ( Amer) Est GFR (Non-Af Amer) BUN/Creatinine Ratio Glucose POC Glucose 149 H Calcium Magnesium Total Bilirubin AST ALT Alkaline Phosphatase Total Creatine Kinase 165 POC Troponin I Troponin I 0.292 H* Total Protein Albumin Globulin Albumin/Globulin Ratio Lipase Folate TSH Urine Color Urine Appearance Urine pH Ur Specific Thayer Urine Protein Urine Glucose (UA) Urine Ketones Urine Blood Urine Nitrite Urine Bilirubin Urine Urobilinogen Ur Leukocyte Esterase Urine WBC (Auto) Urine RBC (Auto) U Hyaline Cast (Auto) U Epithel Cells (Auto) Urine Bacteria (Auto) Urine Test Salicylates Urine Opiates Screen Ur Methadone, Qual Acetaminophen Urine Barbiturates Ur Phencyclidine (PCP) U Amphetamin/Meth Scrn MDMA (Ecstasy) Screen U Benzodiazepines Scrn Ur Cocaine Metabolite U Marijuana (THC) Screen Ethyl Alcohol mg/dL Hepatitis C Ab Screen Diagnostic Findings Telemetry personally reviewed: According to telemetry that is available for review, there has not been any ventricular tachycardia however there is a telemetry strip on paper from the emergency department the did demonstrate a 7 beat and 12 beat run of ventricular tachycardia at 1900 on 07/05/2018. Echo report reviewed as above. ECGs personally reviewed: ECG 07/05/2018 at 5:40 p.m.: Sinus rhythm with PVCs at 92 bpm. ECG 07/06/2018 at 8:16 a.m.: Normal sinus rhythm at 81 bpm. Prolonged QT. CTA chest 07/05/2018: No acute PE. No focal pulmonary consolidation. Hepatic steatosis. Medications Administered Current Inpatient Medications Acetaminophen (Tylenol) 650 mg PO Q4H PRN PRN Reason: Pain or Fever Stop: 08/04/18 22:23 Apixaban (Eliquis) 5 mg PO BID [facility] Stop: 08/04/18 20:59 Last Admin: 07/06/18 09:23 Dose: 5 mg Dextrose (Dextrose 50%) 25 - 50 ml IV UD PRN; Protocol PRN Reason: Hypoglycemia Protocol Stop: 08/04/18 20:20 Diltiazem HCl (Tiazac) 180 mg PO DAILY [facility] Stop: 08/05/18 02:54 Last Admin: 07/06/18 05:01 Dose: 180 mg Diltiazem HCl (Tiazac) 120 mg PO DAILY [facility] Stop: 08/05/18 02:54 Last Admin: 07/06/18 05:01 Dose: 120 mg Doxycycline Hyclate (Vibramycin) 100 mg PO BID [facility] Stop: 07/13/18 08:59 Last Admin: 07/06/18 09:24 Dose: 100 mg Folic Acid (Folvite) 400 mcg PO QAM [facility] Stop: 08/05/18 08:59 Last Admin: 07/06/18 09:25 Dose: 400 mcg Gabapentin (Neurontin) 600 mg PO Q12H [facility] Stop: 07/08/18 12:01 Gabapentin (Neurontin) 600 mg PO Q24H [facility] Stop: 07/09/18 12:01 Gabapentin (Neurontin) 600 mg PO Q6H [facility] Stop: 07/06/18 12:01 Last Admin: 07/06/18 05:00 Dose: 600 mg Gabapentin (Neurontin) 600 mg PO Q8H [facility] Stop: 07/07/18 14:01 Glucagon (Glucagen) 1 mg SQ UD PRN; Protocol PRN Reason: Hypoglycemia Protocol Stop: 08/04/18 20:20 Glucose (Glucose 40%) 15 - 30 gm PO UD PRN; Protocol PRN Reason: Hypoglycemia Protocol Stop: 08/04/18 20:20 Glucose (Dex4 Glucose) 4 - 8 tabs PO UD PRN; Protocol PRN Reason: Hypoglycemia Protocol Stop: 08/04/18 20:20 Hydralazine HCl (Apresoline) 50 mg PO BID [facility] Stop: 08/05/18 08:59 Last Admin: 07/06/18 09:23 Dose: 50 mg Multivitamins 10 ml/ Thiamine HCl 100 mg/ Folic Acid 1 mg/Potassium Chloride 20 meq/Sodium Chloride 1,021.2 mls @ 75 mls/hr IV .[id number] STA Stop: 07/06/18 09:50 Last Admin: 07/05/18 23:11 Dose: 75 mls/hr Lorazepam (Ativan) 1 mg in 2 mls @ 2 mls/min IV UD PRN; Protocol PRN Reason: EtOH Withdrawl AWSS Score 6,7 Stop: 08/04/18 22:23 Lorazepam (Ativan) 2 mg in 4 mls @ 4 mls/min IV UD PRN; Protocol PRN Reason: EtOH Withdrawl AWSS Score 8,9 Stop: 08/04/18 22:23 Last Admin: 07/06/18 01:14 Dose: 4 mls/min Lorazepam (Ativan) 3 mg in 6 mls @ 4 mls/min IV ONCE PRN; Protocol PRN Reason: EtOH Withdrawl AWSS Score >=10 Stop: 08/04/18 22:23 Prochlorperazine 5 mg/ Syringe 5 mls @ 5 mls/min IV Q6H PRN PRN Reason: Nausea And Vomiting Stop: 08/04/18 22:23 Insulin Aspart (Novolog Flexpen) 0 units SC ACHS [facility] Stop: 08/05/18 00:29 Last Admin: 07/06/18 09:22 Dose: Not Given Insulin Glargine (Lantus) 30 units SC BID [facility] Stop: 08/05/18 00:29 Last Admin: 07/06/18 09:26 Dose: 30 units Ioversol (Optiray 320 125ml) 125 ml IV ONCE PRN PRN Reason: Interaction Checking Stop: 07/10/18 01:49 Last Admin: 07/06/18 01:50 Dose: 108 ml Ipratropium [place] (Atrovent 0.02% 0.5mg/2.5ml) 0.5 mg INH Q6R [facility] Stop: 08/05/18 01:59 Last Admin: 07/06/18 07:29 Dose: 0.5 mg Lactulose (Chronulac) 20 gm PO DAILY PRN PRN Reason: Constipation Levalbuterol HCl (Xopenex 1.25mg/0.5ml Neb) 1.25 mg INH Q6R [facility] Stop: 08/05/18 01:59 Last Admin: 07/06/18 07:29 Dose: 1.25 mg Miscellaneous (Carbohydrates For Hypoglycemia) 15 - 30 gm PO UD PRN PRN Reason: Hypoglycemia Treatment Stop: 08/04/18 20:20 Multivitamins (Multivitamin Tab) 1 tab PO QAM [facility] Stop: 08/05/18 08:59 Last Admin: 07/06/18 09:24 Dose: 1 tab Nitroglycerin (Nitrostat) 0.4 mg SL UD PRN PRN Reason: Chest Pain Stop: 08/04/18 22:23 Pantoprazole Sodium (Protonix) 40 mg PO DAILY [facility] Stop: 08/05/18 08:59 Last Admin: 07/06/18 09:24 Dose: 40 mg Perphenazine (Trilafon) 18 mg PO QAM [facility] Stop: 08/05/18 08:59 Last Admin: 07/06/18 09:24 Dose: 18 mg Prednisone (Prednisone) 20 mg PO DAILY [facility] Stop: 07/10/18 08:59 Last Admin: 07/06/18 09:26 Dose: 20 mg Thiamine HCl (Vitamin B-1) 100 mg PO QAM [facility] Stop: 08/05/18 08:59 Last Admin: 07/06/18 09:25 Dose: 100 mg Trazodone HCl (Desyrel) 200 mg PO HS PRN PRN Reason: Sleep Stop: 08/04/18 22:23 Valsartan (Diovan) 320 mg PO DAILY [facility] Stop: 08/05/18 08:59 Last Admin: 07/06/18 09:25 Dose: 320 mg
[2018-07-06] MEDS: HydrALAZINE TAB 50 MG TAB PO SCH ×2 (09:23→21:04)
[2018-07-06] MEDS: MULTIVITAMIN TAB PO SCH (09:24)
[2018-07-06] MEDS: DOXYCYCLINE HYCLATE 100 MG CAP PO SCH ×2 (09:24→21:06)
[2018-07-06] MEDS: PERPHENAZINE 2 MG TABLET PO SCH (09:24)
[2018-07-06] MEDS: FOLIC ACID 400 MCG TAB PO SCH (09:25)
[2018-07-06] MEDS: THIAMINE HCL 100 MG TAB PO SCH (09:25)
[2018-07-06] MEDS: VALSARTAN 80 MG TAB PO SCH (09:25)
[2018-07-06] MEDS: predniSONE 20 MG TAB PO SCH (09:26)
--- NOTE | 2018-07-06 10:59 | Psychiatric Consultation ---
Date of Consultation July 06, 2018 Impression / Recommendations Impression 52 yo AAF with h/o Schizoaffective d/o bipolar type, chronic COPD, TIA's, HTN, DMII and multiple substance abuse admitted for chest pain. Psychiatry was consulted for evaluation given patient history and reported SI thoughts. Patient denied any suicidal thoughts, intent or plan. Patient is not on a 1:1 and would not recommed at this time. She was drowsy during interview, however was able to answer safety and medication questions. She denies Si/Hi/aVH and reports feeling safe in the hospital. Patient confirms she takes perphenazine 18mg once daily. At this time would continue outpt psychiatric medications without changes. We will continue to follow, please call with any further concerns. 1. Schizoaffective d/o, bipolar type: - Perphenazine 18mg daily - QTc on 07/06/18 was 487, please call if qtc is > 500. - no acute safety concerns at this time, patient not on 1:1 and does not require at this time. 2. Cocaine use d/o severe: - Recommend patient abstain from use given abuse and high risk with medical co- morbidities - Would benefit from therapy and/or rehab and will offer to patient. Inventory Assets Strengths: help-seeking, access to care Needs: medical treatment, psychotropic medications, therapy Risk Factors Assessment Male: No : No Health Problems: Yes Substance Use Disorders: Yes Hopelessness: No Protective Factors Assessment : No Responsible for Young Children: No Employed: No CPT Code 16095 Psych History Chief Complaint "I'm ok". History of Present Illness 52 yo AAF with h/o schizoaffective d/o bipolar type, chronic COPD, TIA's, HTN, DMII and multiple substance abuse admitted for chest pain. Psychiatry was consulted for evaluation given patient history and reported SI thoughts. She was with some drowsiness during interview. Patient stated she feels "ok" and denied any paranoia or delusion at this time. She denied any suicidal thoughts, denied Hi/aVH as well. Reported she came for chest pain and the doctors were doing some tests. States that she takes Perphenazine 18mg once a day. Reports at times may feel mood fluctuate, but at this time feels ok. Below obtained from patient and records: Medical history significant for chronic respiratory failure secondary to COPD on home O2, PAF on Eliquis, history of TIAs, hypertension, DM 2 insulin requiring, mood disorder/schizophrenia, history ongoing cocaine/alcohol/tobacco abuse. Recent confinement November 2017 for alcoholic pancreatitis and COPD exacerbation. The last few months patient noted intermittent palpitations. The last few days, palpitations noted to be more frequent. Patient also would experience pleuritic substernal pain with shortness of breath and diaphoresis. Junky cough symptoms, worsening shortness of breath, denies aspiration. Admits to being more depressed than usual with fleeting suicidal thoughts. Patient also admits to increased alcohol and cocaine consumption the last few days. Patient taking Eliquis pill once a day instead of twice a day for months now due to concerns about bleeding. At the ER, patient noted to have NSVT episode lasting 15 seconds. IV Amiodarone bolus given at the ER. Patient more comfortable at the emergency room. Allergies Allergy/AdvReac Type Severity Reaction Status Date / Time haloperidol Allergy Severe TONGUE Verified 07/05/18 18:23 SWELLING insulin lispro Allergy Intermediate HIVES Verified 07/05/18 18:23 phenol Allergy Intermediate HIVES Verified 07/05/18 18:23 citalopram Allergy Mild ITCHING Verified 07/05/18 18:23 sulfamethoxazole Allergy Mild RASH Verified 07/05/18 18:23 trimethoprim Allergy Mild RASH Verified 07/05/18 18:23 Bactrim Allergy Unknown RASH Verified 12/01/17 16:09 Penicillins Allergy Unknown UNKNOWN Verified 07/05/18 18:23 topiramate AdvReac Severe SEIZURE Verified 07/05/18 18:23 LIKE ACTIVITY morphine AdvReac Mild HEADACHE Verified 07/05/18 18:23 oxycodone AdvReac Mild ITCH Verified 07/05/18 18:23 Margarine Allergy Severe RASH Uncoded 07/05/18 18:23 Home Medications Home Medications Medication Instructions Recorded Confirmed Type albuterol sulfate 2.5 mg INHALATION QID PRN 07/05/18 07/05/18 History albuterol sulfate [Ventolin HFA] 2 puff INHALATION Q6H PRN 07/05/18 07/05/18 History apixaban [Eliquis] 5 mg PO DAILY 07/05/18 07/05/18 History baclofen 10 mg PO TID PRN 07/05/18 07/05/18 History diltiazem HCl 300 mg PO DAILY 07/05/18 07/05/18 History hydralazine 50 mg PO BID 07/05/18 07/05/18 History hydrochlorothiazide 12.5 mg PO DAILY 07/05/18 07/05/18 History insulin glargine [Basaglar KwikPen 55 unit SUBCUT HS 07/05/18 07/05/18 History U-100 Insulin] insulin lispro [Humalog KwikPen 15 unit SUBCUT AC 07/05/18 07/05/18 History Insulin] ipratropium-albuterol [Combivent 1 puff INHALATION QID 07/05/18 07/05/18 History Respimat] lactulose 20 g PO DAILY PRN 07/05/18 07/05/18 History omeprazole 20 mg PO DAILY 07/05/18 07/05/18 History perphenazine 18 mg PO QAM 07/05/18 07/05/18 History perphenazine 18 mg PO QAM 07/05/18 07/05/18 History tiotropium bromide [Spiriva 2 puff INHALATION DAILY 07/05/18 07/05/18 History Respimat] trazodone 200 mg PO HS PRN 07/05/18 07/05/18 History valacyclovir 500 mg PO DAILY 07/05/18 07/05/18 History valsartan 320 mg PO DAILY 07/05/18 07/05/18 History Personal History Beliefs That Will Affect Care: None Patient History Medical History Tobacco use disorder (Chronic) History of opioid abuse (Chronic) Cocaine abuse (Chronic) Hx of suicide attempt (Resolved) Diabetes (Chronic) COPD (chronic obstructive pulmonary disease) (Chronic) Fatty liver (Chronic) Elevated troponin (Chronic) Obesity (Chronic) HTN (hypertension) (Chronic) Sleep apnea (Chronic) Neuropathy (Chronic) Sciatic nerve disease (Chronic) Atrial fibrillation (Chronic) Epistaxis, recurrent (Chronic) Chronic generalized pain disorder (Chronic) Schizoaffective disorder, bipolar type (Chronic) COPD with exacerbation (Acute) Alcohol induced acute pancreatitis (Acute) ETOH abuse Surgical History H/O ovarian cystectomy (Resolved) H/O foot surgery (Resolved) Social History marital status: single Current Living Situation: Family Current Living Situation Comment: LIVES WITH BROTHERS current occupational status: unemployed and disabled Other Information That Helps Us Care for You: No Feels Safe at Home: Yes and No Is there a partner from a previous relationship who is making you feel unsafe now?: No Any Concerns about Your Family Situation : Yes (SOMETIMES FEELS LIKE BROTHERS MAY HURT EACHOTHER OR HER) Would You Like to Speak to Someone About Your Situation: Yes (PSYCHIATRIST, CONSULT ORDERED) Safety Concerns: Feels Safe At This Time Smoking Status: Current every day smoker Tobacco Type: cigarettes Cigarettes per Day: 10 Do You Dip or Chew Tobacco: No Second Hand Exposure: Yes Tobacco Cessation Education Requested by Patient: No Hx Alcohol Use: Yes Alcohol type: beer, wine and hard liquor Alcohol Intake Frequency: 0-2 drinks per day Hx Substance Use: Yes substance use type: crack/cocaine Last Used Substance: Hours (ago) Last Used Substance Other:: YESTERDAY Beliefs That Will Affect Care: None Preferred Language: Occitan Communication Ability: Effective Physical Exam Psychiatric Orientation: alert and oriented x 3 mild drowsiness during interview Apperance: appropriately dressed Motor Behavior: no abnormal motor movements slower speech rate and volume 2/2 drowsiness Affect: euthymic affect Stated as "Ok" Thought Process: linear/logical thought process Thought Content: not paranoid and no delusions Suicidal Thoughts: denies suicidal thoughts Homicidal Thoughts: denies homicidal thoughts Hallucinations: no auditory hallucinations and no visual hallucinations Cognition: recent memory grossly intact and remote memory grossly intact Estimated Intelligence: average estimated intelligence Insight: + fair insight Judgement: + fair judgement Vital Signs (Past 24 Hours) Last Vital Signs Temp 36.8 C 07/06/18 07:42 Pulse 82 07/06/18 07:42 Resp 20 07/06/18 07:42 BP 152/88 H 07/06/18 07:42 Pulse Ox 96 07/06/18 07:42 Results & Data Medications Administered Apixaban (Eliquis) 5 mg PO BID [facility] Stop: 08/04/18 20:59 Last Admin: 07/06/18 09:23 Dose: 5 mg Admin: 07/06/18 01:19 Dose: 5 mg Diltiazem HCl (Tiazac) 180 mg PO DAILY [facility] Stop: 08/05/18 02:54 Last Admin: 07/06/18 05:01 Dose: 180 mg Diltiazem HCl (Tiazac) 120 mg PO DAILY [facility] Stop: 08/05/18 02:54 Last Admin: 07/06/18 05:01 Dose: 120 mg Doxycycline Hyclate (Vibramycin) 100 mg PO BID [facility] Stop: 07/13/18 08:59 Last Admin: 07/06/18 09:24 Dose: 100 mg Folic Acid (Folvite) 400 mcg PO QAM [facility] Stop: 08/05/18 08:59 Last Admin: 07/06/18 09:25 Dose: 400 mcg Gabapentin (Neurontin) 600 mg PO Q6H [facility] Stop: 07/06/18 12:01 Last Admin: 07/06/18 05:00 Dose: 600 mg Hydralazine HCl (Apresoline) 50 mg PO BID [facility] Stop: 08/05/18 08:59 Last Admin: 07/06/18 09:23 Dose: 50 mg Lorazepam (Ativan) 2 mg in 4 mls @ 4 mls/min IV UD PRN; Protocol PRN Reason: EtOH Withdrawl AWSS Score 8,9 Stop: 08/04/18 22:23 Last Admin: 07/06/18 01:14 Dose: 4 mls/min Insulin Aspart (Novolog Flexpen) 0 units SC ACHS [facility] Stop: 08/05/18 00:29 Last Admin: 07/06/18 09:22 Dose: Not Given Admin: 07/06/18 01:24 Dose: Not Given Insulin Glargine (Lantus) 30 units SC BID [facility] Stop: 08/05/18 00:29 Last Admin: 07/06/18 09:26 Dose: 30 units Admin: 07/06/18 01:25 Dose: 30 units Ioversol (Optiray 320 125ml) 125 ml IV ONCE PRN PRN Reason: Interaction Checking Stop: 07/10/18 01:49 Last Admin: 07/06/18 01:50 Dose: 108 ml Ipratropium Philip (Atrovent 0.02% 0.5mg/2.5ml) 0.5 mg INH Q6R [facility] Stop: 08/05/18 01:59 Last Admin: 07/06/18 07:29 Dose: 0.5 mg Admin: 07/06/18 01:50 Dose: 0.5 mg Levalbuterol HCl (Xopenex 1.25mg/0.5ml Neb) 1.25 mg INH Q6R [facility] Stop: 08/05/18 01:59 Last Admin: 07/06/18 07:29 Dose: 1.25 mg Admin: 07/06/18 01:50 Dose: 1.25 mg Multivitamins (Multivitamin Tab) [facility] Stop: 08/05/18 08:59 Last Admin: 07/06/18 09:24 Dose: 1 tab Pantoprazole Sodium (Protonix) 40 mg PO DAILY [facility] Stop: 08/05/18 08:59 Last Admin: 07/06/18 09:24 Dose: 40 mg Perphenazine (Trilafon) 18 mg PO [facility] Stop: 08/05/18 08:59 Last Admin: 07/06/18 09:24 Dose: 18 mg Prednisone (Prednisone) 20 mg PO DAILY [facility] Stop: 07/10/18 08:59 Last Admin: 07/06/18 09:26 Dose: 20 mg Thiamine HCl (Vitamin B-1) 100 mg PO [facility] Stop: 08/05/18 08:59 Last Admin: 07/06/18 09:25 Dose: 100 mg Valsartan (Diovan) 320 mg PO DAILY [facility] Stop: 08/05/18 08:59 Last Admin: 07/06/18 09:25 Dose: 320 mg
--- NOTE | 2018-07-06 14:01 | Hospitalist Progress Note ---
Date of Service July 06, 2018 Assessment & Plan (1) Chest pain: (2) Elevated troponin: (3) Non-sustained ventricular tachycardia: -Hospital day 2 -Patient presenting with palpitations and shortness of breath -In the ED, patient had an episode of nonsustained V. tach -received IV amiodarone; case was discussed with Dr. Stock by admitting physician who advised holding off on further amiodarone infusion given her multiple risk factors for arrhythmia -Likely secondary to cocaine use -Echocardiogram does not show any wall motion abnormalities -trop 0.316 -> 0.292 -History of chronic troponin elevation; cardiac cath in the past demonstrated no significant coronary disease -Seen by cardiology, Dr. Castillo -recommends no further workup at this time (4) COPD (chronic obstructive pulmonary disease): (5) Bronchitis: -Continues to have some mild wheezing on exam -Continue nebs, Doxy, prednisone -Saturating well on chronic 2 L of O2 (6) Prolonged QT interval: -QTc 487 -Monitor daily EKG (7) Cocaine abuse: -Patient counseled regarding substance abuse (8) Alcohol abuse: -No signs of withdrawal -On withdrawal protocol with gabapentin -Continue thiamine, folic acid, multivitamin (9) Schizoaffective disorder, bipolar type: (10) Suicidal ideations: -Patient evaluated by psychiatry -patient denied suicidal ideations to them -Psychiatry not recommending inpatient psych admission at this time -Continue perphenazine (11) Atrial fibrillation: -Rate controlled on diltiazem -Anticoagulated on Eliquis (noted patient was only taking daily at home, increased to appropriate twice daily dosing) (12) HTN (hypertension): -Hypertensive on arrival -started on lisinopril 2.5 mg daily and home doses of diltiazem, hydralazine, valsartan were continued -BP is now improved (13) DM type 2 (diabetes mellitus, type 2): -Hgb A1c 7.6 03/2018 -Lantus and NovoLog per protocol (14) DVT prophylaxis: -Anticoagulated on Eliquis Supervising Physician Co-Signing Physician Notes Patient is seen and examined at bedside. She is lethargic but was able to answer questions. Has chronic chest pain, chronic elevation of troponin. ECHO showed no wall motion abnormality. Admits to using cocaine when chest pain started. Advised to quit cocaine. Appreciate Cardiology Input. NSVT resolved, currently in sinus. On eliquis for anticoagulation. Denies any suicidal ideation , continue home medications, appreciate Psych Input. Monitor EKG for QTC prolongation. Avoid Narcotics as able. Would benefit from rehab placement if patient agrees. Dyspnea imptoved. On exam patient is morbidly obese, lethargic, Coarse breath sounds, S1, S2, Trace pedal edema. Continue Doxy, Nebs for bronchitis. I personally reviewed the record. Patient is interviewed and examined at bedside. Patient's care is coordinated with Becca Vallejo DIRECTOR OF VOCATIONAL TRAINING. Please refer to the documentation above for details of patient's presentation and for discussion of other issues. Subjective Patient seen and examined. Somewhat lethargic, arousable to loud verbal stimuli. Does not offer much history. Reports some dull chest pain. Has shortness of breath however improved from admission. No lightheadedness, dizziness. Reports diarrhea however denies abdominal pain or nausea. Physical Exam 2 Vital Signs (Past 24 Hours): Last Vital Signs Temp 37.3 C 07/06/18 11:25 Pulse 69 07/06/18 11:25 Resp 20 07/06/18 11:25 BP 127/71 07/06/18 11:25 Pulse Ox 97 07/06/18 11:25 Constitutional: WD/WN, vitals as above + lethargic (Arouses to loud verbal stimuli) Respiratory: normal respiratory effort; no respiratory distress Auscultation: + wheezes (Faint, scattered, end expiratory) Cardiovascular: Rate/Rhythm: regular rate and regular rhythm Vessels: normal peripheral pulses Extremities: no edema Gastrointestinal (Abdomen): Percussion/Palpation: abdomen soft; abdomen nontender Psychiatric: Orientation: oriented x 3 Results & Data Laboratory Results Short CBC 07/05/18 Range/Units 18:15 WBC 5.89 (4.8-10.8) K/uL Hgb 13.8 (12.0-16.0) g/dL Hct 39.6 (37-47) % Plt Count 210 (130-400) K/uL BMP 07/05/18 18:15 Sodium 137 Potassium 3.5 Chloride 102 Carbon Dioxide 29 BUN 7 Creatinine 0.74 Glucose 127 H Calcium 8.9 Cardiac Enzymes 07/05/18 07/06/18 Range/Units 22:37 06:07 Total Creatine Kinase 165 (26-192) U/L Troponin I 0.316 H* 0.292 H* (0-0.045) ng/ml Liver Function 07/05/18 Range/Units 18:15 Total Bilirubin 0.3 (0.2-1) mg/dl AST 22 (15-37) U/L ALT 46 (12-78) U/L Alkaline Phosphatase 126 H (45-117) U/L Albumin 3.3 L (3.4-5.0) gm/dl Urine 07/06/18 Range/Units 00:15 Urine Color Yellow Urine Appearance Clear (Clear) Urine pH 8.0 H (4.5-7.5) Ur Specific [place] 1.014 (1.000-1.030) Urine Protein Negative (Negative) Urine Glucose (UA) Negative (Negative)
[2018-07-06] MEDS: TRAMADOL HCL 50 MG TABLET PO PRN ×2 (16:44→21:07)
[2018-07-06] MEDS: PANTOprazole 40 MG TAB PO SCH (22:10)
[2018-07-07] MEDS: LEVALBUTEROL 1.25MG/0.5ML NEB INH SCH ×4 (01:52→19:58)
[2018-07-07] MEDS: IPRATROPIUM BROMIDE NEB SOLN 0.02% 2.5 ML VIAL INH SCH ×4 (01:52→19:58)
[2018-07-07] MEDS: GABAPENTIN 600 MG TAB PO SCH ×2 (06:21→13:40)
[2018-07-07 06:48] LABS: Hematocrit (blood only) 40.8 % (37-47); Hemoglobin 13.6 g/dL (12.0-16.0); Mean Corpuscular Hgb Conc 33.3 g/dL (32-36); Mean Corpuscular Volume 96.5 fL (80-100); Mean Platelet Volume 9.5 fL (7.4-10.4); Platelet Count 189 K/uL (130-400); RDW Coefficient of Variation 14.9 % (11.5-14.5); RDW Standard Deviation 52.3 fL (36.4-46.3); Red Blood Count 4.23 M/uL (4.2-5.4); White Blood Count 5.52 K/uL (4.8-10.8)
[2018-07-07 07:18] LABS: BUN Creatinine Ratio 14.1 (10-20); Calcium 9.1 mg/dl (8.5-10.1); Creatinine Clr Calc Pharmacy 95.8 ml/min; Est GFR (African American) 86.9; Potassium 3.5 mmol/L (3.5-5.1)
[2018-07-07] MEDS: INSULIN ASPART 100 UNITS/ML 3 ML PEN SC SCH ×4 (08:04→20:40)
[2018-07-07] MEDS: PANTOprazole 40 MG TAB PO SCH ×2 (08:06→20:39)
[2018-07-07] MEDS: predniSONE 20 MG TAB PO SCH (08:07)
[2018-07-07] MEDS: VALSARTAN 80 MG TAB PO SCH (08:07)
[2018-07-07] MEDS: FOLIC ACID 400 MCG TAB PO SCH (08:07)
[2018-07-07] MEDS: MULTIVITAMIN TAB PO SCH (08:08)
[2018-07-07] MEDS: THIAMINE HCL 100 MG TAB PO SCH (08:09)
[2018-07-07] MEDS: PERPHENAZINE 2 MG TABLET PO SCH ×2 (08:09→20:39)
[2018-07-07] MEDS: APIXABAN 5 MG TABLET PO SCH ×2 (08:10→20:40)
[2018-07-07] MEDS: dilTIAZem ER 120 MG CAPCR PO SCH (08:10)
[2018-07-07] MEDS: HydrALAZINE TAB 50 MG TAB PO SCH ×2 (08:10→20:38)
[2018-07-07] MEDS: dilTIAZem ER 180 MG CAPCR PO SCH (08:10)
[2018-07-07] MEDS: INSULIN GLARGINE 100 UNIT/ML VIAL SC SCH ×2 (08:11→21:14)
[2018-07-07] MEDS: TRAMADOL HCL 50 MG TABLET PO PRN ×2 (09:34→18:03)
[2018-07-07] MEDS: DOXYCYCLINE HYCLATE 100 MG CAP PO SCH ×2 (09:34→20:40)
[2018-07-07] MEDS: DOCUSATE SODIUM 100 MG CAP PO SCH ×2 (11:07→20:40)
[2018-07-07] MEDS: POLYETHYLENE (MIRALAX) 17 GM PACK PO SCH (11:07)
--- NOTE | 2018-07-07 12:29 | Psychiatric Progress Note ---
Date of Service July 07, 2018 Impression / Recommendations Impression 52 yo AAF with h/o Schizoaffective d/o bipolar type, chronic COPD, TIA's, HTN, DMII and multiple substance abuse admitted for chest pain. Psychiatry was consulted for evaluation given patient history and reported SI thoughts. Patient denied any suicidal thoughts, intent or plan. Patient is not on a 1:1 and would not recommend at this time. Patient was alert and interactive today. Denies Si/Hi/avH and was in agreement with outpatient follow up for further psychiatric care. Discussed importance of adherence with prescribed dosing of medications and affects on mood if patient should be non-compliant. Would increase trilafon to 18mg bid as this should be her outpatient dose. We will continue to follow, please call with any further concerns. 1. Schizoaffective d/o, bipolar type: - Increase to Perphenazine 18mg bid (prescribed outpt dose) - QTc on 07/06/18 was 487, please call if qtc is > 500. - no acute safety concerns at this time, and patient is not meeting criteria for inpatient admission. - Psych nurse liason to assist with setting up outpatient follow up appointments 2. Cocaine use d/o severe: - Recommend patient abstain from use given abuse and high risk with medical co- morbidities - Would benefit from therapy and/or rehab and will offer to patient. Inventory Assets Strengths: help-seeking, access to care Needs: medical treatment, psychotropic medications, therapy Risk Factors Assessment Male: No : No Health Problems: Yes Substance Use Disorders: Yes Hopelessness: No Protective Factors Assessment : No Responsible for Young Children: No Employed: No Subjective Subjective Patient reported that she was feeling a little depressed but denied Si/Hi/aVH. She states that she has her own place to live and would return home. When asked why she decreased her psych med dose, she states "I just didn't want to take the pills". Disussed importance of adherence with medications and regular dosing would help with her mood. She was informed that primary team was planning to discharge her and she stated that would be ok. She was informed that psych liason nurse would help her get an outpt psychiatry follow up appt, to which she agreed. Physical Exam Psychiatric A+Ox3, euthymic affect Apperance: appropriately dressed Eye Contact: + fair eye contact Motor Behavior: no abnormal motor movements Speech: normal rate/rhythm/volume of speech Affect: euthymic affect Described as "kind of depressed" but euthymic affect Thought Process: linear/logical thought process Thought Content: not paranoid and no delusions Suicidal Thoughts: denies suicidal thoughts Homicidal Thoughts: denies homicidal thoughts Hallucinations: no auditory hallucinations and no visual hallucinations Cognition: recent memory grossly intact and remote memory grossly intact Estimated Intelligence: average estimated intelligence Insight: + fair insight Judgement: + fair judgement Vital Signs (Past 24 Hours) Last Vital Signs Temp 36.8 C 07/07/18 07:55 Pulse 66 07/07/18 09:24 Resp 22 07/07/18 07:55 BP 128/82 07/07/18 07:55 Pulse Ox 95 07/07/18 07:55 Results & Data Laboratory Results Laboratory Results - last 24 hr 07/06/18 07/06/18 07/07/18 15:56 20:39 06:37 WBC 5.52 RBC 4.23 Hgb 13.6 Hct 40.8 MCV 96.5 MCH 32.2 MCHC 33.3 RDW Std Deviation 52.3 H RDW Coeff of Ally 14.9 H Plt Count 189 MPV 9.5 Sodium Potassium Chloride Carbon Dioxide Anion Gap BUN Creatinine Est Cr Clr Drug Dosing Est GFR ( Amer) Est GFR (Non-Af Amer) BUN/Creatinine Ratio Glucose POC Glucose 219 H 228 H Calcium 07/07/18 07/07/18 07/07/18 06:37 07:33 11:16 WBC RBC Hgb Hct MCV MCH MCHC RDW Std Deviation RDW Coeff of Ally Plt Count MPV Sodium 137 Potassium 3.5 Chloride 103 Carbon Dioxide 30 Anion Gap 5.0 BUN 12 D Creatinine 0.88 Est Cr Clr Drug Dosing 95.8 Est GFR ( Amer) 86.9 Est GFR (Non-Af Amer) 75.0 BUN/Creatinine Ratio 14.1 Glucose 87 POC Glucose 89 130 H Calcium 9.1 Current Inpatient Medications Current Inpatient Medications: Current Inpatient Medications Acetaminophen (Tylenol) 650 mg PO Q4H PRN PRN Reason: Pain or Fever Stop: 08/04/18 22:23 Apixaban (Eliquis) 5 mg PO BID [facility] Stop: 08/04/18 20:59 Last Admin: 07/07/18 08:10 Dose: 5 mg Dextrose (Dextrose 50%) 25 - 50 ml IV UD PRN; Protocol PRN Reason: Hypoglycemia Protocol Stop: 08/04/18 20:20 Diltiazem HCl (Tiazac) 180 mg PO DAILY [facility] Stop: 08/05/18 02:54 Last Admin: 07/07/18 08:10 Dose: 180 mg Diltiazem HCl (Tiazac) 120 mg PO DAILY [facility] Stop: 08/05/18 02:54 Last Admin: 07/07/18 08:10 Dose: 120 mg Docusate Sodium (Colace) 100 mg PO BID [facility] Stop: 08/06/18 10:14 Last Admin: 07/07/18 11:07 Dose: 100 mg Doxycycline Hyclate (Vibramycin) 100 mg PO BID [facility] Stop: 07/13/18 08:59 Last Admin: 07/07/18 09:34 Dose: 100 mg Folic Acid (Folvite) 400 mcg PO QAM [facility] Stop: 08/05/18 08:59 Last Admin: 07/07/18 08:07 Dose: 400 mcg Gabapentin (Neurontin) 600 mg PO Q12H [facility] Stop: 07/08/18 12:01 Gabapentin (Neurontin) 600 mg PO Q24H [facility] Stop: 07/09/18 12:01 Gabapentin (Neurontin) 600 mg PO Q8H [facility] Stop: 07/07/18 14:01 Last Admin: 07/07/18 06:21 Dose: 600 mg Glucagon (Glucagen) 1 mg SQ UD PRN; Protocol PRN Reason: Hypoglycemia Protocol Stop: 08/04/18 20:20 Glucose (Glucose 40%) 15 - 30 gm PO UD PRN; Protocol PRN Reason: Hypoglycemia Protocol Stop: 08/04/18 20:20 Glucose (Dex4 Glucose) 4 - 8 tabs PO UD PRN; Protocol PRN Reason: Hypoglycemia Protocol Stop: 08/04/18 20:20 Hydralazine HCl (Apresoline) 50 mg PO BID [facility] Stop: 08/05/18 08:59 Last Admin: 07/07/18 08:10 Dose: 50 mg Lorazepam (Ativan) 1 mg in 2 mls @ 2 mls/min IV UD PRN; Protocol PRN Reason: EtOH Withdrawl AWSS Score 6,7 Stop: 08/04/18 22:23 Lorazepam (Ativan) 2 mg in 4 mls @ 4 mls/min IV UD PRN; Protocol PRN Reason: EtOH Withdrawl AWSS Score 8,9 Stop: 08/04/18 22:23 Last Admin: 07/06/18 01:14 Dose: 4 mls/min Lorazepam (Ativan) 3 mg in 6 mls @ 4 mls/min IV ONCE PRN; Protocol PRN Reason: EtOH Withdrawl AWSS Score >=10 Stop: 08/04/18 22:23 Prochlorperazine 5 mg/ Syringe 5 mls @ 5 mls/min IV Q6H PRN PRN Reason: Nausea And Vomiting Stop: 08/04/18 22:23 Insulin Aspart (Novolog Flexpen) 0 units SC ACHS [facility] Stop: 08/05/18 00:29 Last Admin: 07/07/18 08:04 Dose: Not Given Insulin Glargine (Lantus) 30 units SC BID [facility] Stop: 08/05/18 00:29 Last Admin: 07/07/18 08:11 Dose: 30 units Ioversol (Optiray 320 125ml) 125 ml IV ONCE PRN PRN Reason: Interaction Checking Stop: 07/10/18 01:49 Last Admin: 07/06/18 01:50 Dose: 108 ml Ipratropium [place] (Atrovent 0.02% 0.5mg/2.5ml) 0.5 mg INH Q6R [facility] Stop: 08/05/18 01:59 Last Admin: 07/07/18 07:44 Dose: Not Given Lactulose (Chronulac) 20 gm PO DAILY PRN PRN Reason: Constipation Levalbuterol HCl (Xopenex 1.25mg/0.5ml Neb) 1.25 mg INH Q6R [facility] Stop: 08/05/18 01:59 Last Admin: 07/07/18 07:44 Dose: Not Given Miscellaneous (Carbohydrates For Hypoglycemia) 15 - 30 gm PO UD PRN PRN Reason: Hypoglycemia Treatment Stop: 08/04/18 20:20 Multivitamins (Multivitamin Tab) 1 tab PO QAM [facility] Stop: 08/05/18 08:59 Last Admin: 07/07/18 08:08 Dose: 1 tab Nitroglycerin (Nitrostat) 0.4 mg SL UD PRN PRN Reason: Chest Pain Stop: 08/04/18 22:23 Pantoprazole Sodium (Protonix) 40 mg PO BID [facility] Stop: 08/05/18 21:59 Last Admin: 07/07/18 08:06 Dose: 40 mg Perphenazine (Trilafon) 18 mg PO QAM [facility] Stop: 08/05/18 08:59 Last Admin: 07/07/18 08:09 Dose: 18 mg Polyethylene Glycol (Miralax Powder Packet) 17 gm PO DAILY [facility] Stop: 08/06/18 10:14 Last Admin: 07/07/18 11:07 Dose: 17 gm Prednisone (Prednisone) 20 mg PO DAILY [facility] Stop: 07/10/18 08:59 Last Admin: 07/07/18 08:07 Dose: 20 mg Thiamine HCl (Vitamin B-1) 100 mg PO QAM [facility] Stop: 08/05/18 08:59 Last Admin: 07/07/18 08:09 Dose: 100 mg Tramadol HCl (Ultram) 50 mg PO Q4H PRN PRN Reason: Pain Stop: 08/05/18 15:14 Last Admin: 07/07/18 09:34 Dose: 50 mg Trazodone HCl (Desyrel) 200 mg PO HS PRN PRN Reason: Sleep Stop: 08/04/18 22:23 Last Admin: 07/06/18 21:07 Dose: 200 mg Valsartan (Diovan) 320 mg PO DAILY [facility] Stop: 08/05/18 08:59 Last Admin: 07/07/18 08:07 Dose: 320 mg CPT Code CPT Code 85118
--- NOTE | 2018-07-07 18:31 | Hospitalist Progress Note ---
Date of Service July 07, 2018 Assessment & Plan (1) Chest pain: (2) Elevated troponin: (3) Non-sustained ventricular tachycardia: -Hospital day 3 -Patient presenting with palpitations and shortness of breath -In the ED, patient had an episode of nonsustained V. tach -received IV amiodarone; case was discussed with Dr. Stock by admitting physician who advised holding off on further amiodarone infusion given her multiple risk factors for arrhythmia -Likely secondary to cocaine use -Echocardiogram does not show any wall motion abnormalities -trop 0.316 -> 0.292 -History of chronic troponin elevation; cardiac cath in the past demonstrated no significant coronary disease -Seen by cardiology, Dr. Castillo -recommends no further workup at this time -Transfer to [facility] today (4) COPD (chronic obstructive pulmonary disease): (5) Bronchitis: -Continues to have some mild wheezing on exam -Continue nebs, Doxy, prednisone -Saturating well on chronic 2 L of O2 (6) Prolonged QT interval: -QTc 430 on EKG today -Monitor daily EKG (7) Cocaine abuse: -Patient counseled regarding substance abuse (8) Alcohol abuse: -No signs of withdrawal -On withdrawal protocol with gabapentin -Continue thiamine, folic acid, multivitamin (9) Schizoaffective disorder, bipolar type: (10) Suicidal ideations: -Patient evaluated by psychiatry -patient denied suicidal ideations to them -Patient reevaluated by psychiatry today due to her request for inpatient admission however they feel as though she is safe to return home and does not require psychiatric inpatient admission -perphenazine increased to 18 mg twice daily (patient's outpatient prescribed dose per psychiatry) (11) Atrial fibrillation: -Rate controlled on diltiazem -Anticoagulated on Eliquis (noted patient was only taking daily at home, increased to appropriate twice daily dosing) (12) HTN (hypertension): -Hypertensive on arrival -started on lisinopril 2.5 mg daily and home doses of diltiazem, hydralazine, valsartan were continued -BP is now improved (13) DM type 2 (diabetes mellitus, type 2): -Hgb A1c 7.6 03/2018 -Lantus and NovoLog per protocol (14) DVT prophylaxis: -Anticoagulated on Eliquis Supervising Physician Co-Signing Physician Notes Patient is seen and examined at bedside. She more alert, awake today. Reports still have some dyspnea and cough with expectoration. Intermittent suicidal thoughts per patient, Psych evaluated, Doesn't meet inpatient psych criteria. phenarzine dose increased per Psych. Monitor EKG for QTC prolongation. Avoid Narcotics as able. Would benefit from rehab placement if patient agrees. Dyspnea slowly improving. On exam patient is morbidly obese, Coarse breath sounds, S1, S2, Trace pedal edema. Continue Doxy, Nebs for bronchitis and mild COPD exacerbation. I personally reviewed the record. Patient is interviewed and examined at bedside. Patient's care is coordinated with Becca Vallejo ASSOCIATE BUSINESS ANALYST. Please refer to the documentation above for details of patient's presentation and for discussion of other issues. Subjective Patient seen and examined. Reports her breathing is "not good". Does not appear to be in any respiratory distress on exam. Discussed discharge with patient however she reports that she would like to be admitted to the psych [facility] because she is depressed. Reports suicidal ideations come and go. Reports some intermittent chest pain which is chronic. No palpitations. Reports constipation, denies abdominal pain and nausea. Physical Exam 2 Vital Signs (Past 24 Hours): Last Vital Signs Temp 36.8 C 07/07/18 13:51 Pulse 69 07/07/18 14:17 Resp 20 07/07/18 14:17 BP 118/72 07/07/18 13:51 Pulse Ox 93 07/07/18 14:17 Constitutional: WD/WN, vitals as above Respiratory: normal respiratory effort; no respiratory distress Auscultation: + diminished lung sounds and + wheezes (Scattered, expiratory) Cardiovascular: Rate/Rhythm: regular rate and regular rhythm Vessels: normal peripheral pulses Extremities: no edema Gastrointestinal (Abdomen): Percussion/Palpation: abdomen soft; abdomen nontender Psychiatric: A+Ox3, euthymic affect Results & Data Laboratory Results Short CBC 07/07/18 Range/Units 06:37 WBC 5.52 (4.8-10.8) K/uL Hgb 13.6 (12.0-16.0) g/dL Hct 40.8 (37-47) % Plt Count 189 (130-400) K/uL BMP 07/07/18 06:37 Sodium 137 Potassium 3.5 Chloride 103 Carbon Dioxide 30 BUN 12 D Creatinine 0.88 Glucose 87 Calcium 9.1
[2018-07-08] MEDS ORDERED: GABAPENTIN 600 MG TAB PO SCH
[2018-07-08] MEDS: LEVALBUTEROL 1.25MG/0.5ML NEB INH SCH ×2 (02:31→07:07)
[2018-07-08] MEDS: IPRATROPIUM BROMIDE NEB SOLN 0.02% 2.5 ML VIAL INH SCH ×2 (02:31→07:07)
[2018-07-08] MEDS: HydrALAZINE TAB 50 MG TAB PO SCH (09:00)
[2018-07-08] MEDS: INSULIN ASPART 100 UNITS/ML 3 ML PEN SC SCH (09:00)
[2018-07-08] MEDS: DOCUSATE SODIUM 100 MG CAP PO SCH (09:00)
[2018-07-08] MEDS: APIXABAN 5 MG TABLET PO SCH (09:01)
[2018-07-08] MEDS: MULTIVITAMIN TAB PO SCH (09:01)
[2018-07-08] MEDS: VALSARTAN 80 MG TAB PO SCH (09:01)
[2018-07-08] MEDS: FOLIC ACID 400 MCG TAB PO SCH (09:01)
[2018-07-08] MEDS: DOXYCYCLINE HYCLATE 100 MG CAP PO SCH (09:02)
[2018-07-08] MEDS: PANTOprazole 40 MG TAB PO SCH (09:02)
[2018-07-08] MEDS: THIAMINE HCL 100 MG TAB PO SCH (09:02)
[2018-07-08] MEDS: predniSONE 20 MG TAB PO SCH (09:02)
[2018-07-08] MEDS: dilTIAZem ER 180 MG CAPCR PO SCH (09:02)
[2018-07-08] MEDS: dilTIAZem ER 120 MG CAPCR PO SCH (09:02)
[2018-07-08] MEDS: PERPHENAZINE 2 MG TABLET PO SCH (09:03)
[2018-07-08] MEDS: POLYETHYLENE (MIRALAX) 17 GM PACK PO SCH (09:04)
[2018-07-08] MEDS ORDERED: SODIUM CHLORIDE 0.65% NA SOLN 45 ML (OCEAN) ONE (09:11)
[2018-07-08] MEDS: INSULIN GLARGINE 100 UNIT/ML VIAL SC SCH (09:16)
--- NOTE | 2018-07-08 11:22 | Hospitalist Progress Note ---
Date of Service July 08, 2018 Assessment & Plan (1) Chest pain: (2) Elevated troponin: (3) Non-sustained ventricular tachycardia: Resolved Patient presented with palpitations and shortness of breath Likely secondary to cocaine use Counselled patient to quit cocaine on multiple ocassions Echo No wall motion abnormalities Mild elevation of Troponin likely demand ischemia 2/2 NSVT H/O chronic troponin elevation; cardiac cath in the past demonstrated no significant coronary disease Appreciate Cardiology Input: Dr. Castillo -recommends no further workup at this time (4) COPD (chronic obstructive pulmonary disease): (5) Bronchitis: Continue nebs, Doxy, prednisone Saturating well on room air Ongoing Tobacco use: Counselled to quit (6) Prolonged QT interval: Resolved QTc 443 today Avoid QTC prolonging meds as able (7) Cocaine abuse: counseled regarding substance abuse (8) Alcohol abuse: No signs of withdrawal Received withdrawal protocol with gabapentin Continue thiamine, folic acid, multivitamin (9) Schizoaffective disorder, bipolar type: (10) Suicidal ideations: Evaluated by psychiatry: Doesn't meet Inpatient criteria as per [facility] perphenazine increased to 18 mg twice daily (patient's outpatient prescribed dose per psychiatry) Needs follow up with your Psychiatrist upon discharge (11) Atrial fibrillation: Rate controlled continue diltiazem Anticoagulated on Eliquis (noted patient was only taking daily at home, increased to appropriate twice daily dosing (12) HTN (hypertension): Mildly elevated Continue home meds: diltiazem, hydralazine, valsartan Close follow up with PCP (13) DM type 2 (diabetes mellitus, type 2): Hgb A1c 7.6 03/2018 Lantus and NovoLog per protocol (14) DVT prophylaxis: Anticoagulated on Eliquis Subjective Patient seen and examined at bedside Doing well today Cough improving Less dyspnea Eager to get discharged Denies chest pain, dizziness, nausea, suicidal thoughts No other complaints Physical Exam 2 Vital Signs (Past 24 Hours): Last Vital Signs Temp 36.8 C 07/08/18 10:54 Pulse 69 07/08/18 10:54 Resp 16 07/08/18 10:54 BP 145/79 H 07/08/18 10:54 Pulse Ox 94 07/08/18 10:54 Physical Exam: Physical Exam: Vitals signs as noted above General Appearance:Morbidly Obese, no apparent distress Head: normocephalic, Atraumatic Eyes: normal inspection, EOMI Neck: supple, Trachea midline Respiratory/Chest: Decreased, coarse breath sounds Cardiovascular: S1, S2, No murmur Abdomen/GI:Soft, Non tender, Bowel sounds present Extremities/Musculoskelatal:normal inspection, Trace pedal edema Neurologic/Psych:AAOX3, grossly no focal neurological deficits Skin: normal color, warm
--- NOTE | 2018-07-08 11:39 | Discharge Summary ---
Date of Service July 08, 2018 Admission HPI Per Admitting Provider History obtained from patient and records. Medical history significant for chronic respiratory failure secondary to COPD on home O2, PAF on Eliquis, history of TIAs, hypertension, DM 2 insulin requiring, mood disorder/paranoid schizophrenia, history ongoing cocaine/alcohol /tobacco abuse. Recent confinement November 2017 for alcoholic pancreatitis and COPD exacerbation. The last few months patient noted intermittent palpitations. The last few days, palpitations noted to be more frequent. Patient also would experience pleuritic substernal pain with shortness of breath and diaphoresis. Junky cough symptoms, worsening shortness of breath, denies aspiration. Admits to being more depressed than usual with fleeting suicidal thoughts. Patient also admits to increased alcohol and cocaine consumption the last few days. Patient taking Eliquis pill once a day instead of twice a day for months now due to concerns about bleeding. At the ER, patient noted to have NSVT episode lasting 15 seconds. IV Amiodarone bolus given at the ER. Patient more comfortable at the emergency room. Admission Exam Per Admitting Provider Physical Exam Vital Signs (Past 24 Hours): Last Vital Signs Temp 37.2 C 07/05/18 17:32 Pulse 90 07/05/18 19:45 Resp 22 07/05/18 19:45 BP 129/51 L 07/05/18 19:45 Pulse Ox 95 07/05/18 19:45 Principal Diagnosis Discharge Information Discharge Diagnosis NSVT Substance abuse Acute Bronchitis HTN Discharge Goals Decrease discomfort,Improve disease control, Improve function Discharge Activity Limitations Resume your previous activity Discharge Exam Physical Exam: Vitals signs as noted above General Appearance:Morbidly Obese, no apparent distress Head: normocephalic, Atraumatic Eyes: normal inspection, EOMI Neck: supple, Trachea midline Respiratory/Chest: Decreased, coarse breath sounds Cardiovascular: S1, S2, No murmur Abdomen/GI:Soft, Non tender, Bowel sounds present Extremities/Musculoskelatal:normal inspection, Trace pedal edema Neurologic/Psych:AAOX3, grossly no focal neurological deficits Skin: normal color, warm Discharge Data Allergies Allergy/AdvReac Type Severity Reaction Status Date / Time haloperidol Allergy Severe TONGUE Verified 07/05/18 18:23 SWELLING insulin lispro Allergy Intermediate HIVES Verified 07/05/18 18:23 phenol Allergy Intermediate HIVES Verified 07/05/18 18:23 citalopram Allergy Mild ITCHING Verified 07/05/18 18:23 sulfamethoxazole Allergy Mild RASH Verified 07/05/18 18:23 trimethoprim Allergy Mild RASH Verified 07/05/18 18:23 Bactrim Allergy Unknown RASH Verified 12/01/17 16:09 Penicillins Allergy Unknown UNKNOWN Verified 07/05/18 18:23 topiramate AdvReac Severe SEIZURE Verified 07/05/18 18:23 LIKE ACTIVITY morphine AdvReac Mild HEADACHE Verified 07/05/18 18:23 oxycodone AdvReac Mild ITCH Verified 07/05/18 18:23 Margarine Allergy Severe RASH Uncoded 07/05/18 18:23 Consultations 07/05/18 19:18 ED Decision to Admit Stat 07/05/18 22:24 Consult Cardiology Routine Consult Psychiatry Routine Procedures Performed CTA: 1. No evidence of acute pulmonary embolism 2. No evidence of focal pulmonary consolidation 3. Hepatic steatosis CXR: No acute cardiopulmonary abnormality. ECHO: Normal LV chamber size with mild concentric LVH Normal LV systolic function, EF 60-65% No segmental left ventricular wall motion abnormalities are noted Grade 1 diastolic dysfunction Aortic valve sclerosis mild, without significant aortic valvular stenosis. Ordered Studies 07/05/18 22:24 CT angio chest PE protocol Urgent Hospital Course (1) Chest pain: (2) Elevated troponin: (3) Non-sustained ventricular tachycardia: Resolved Patient presented with palpitations and shortness of breath Likely secondary to cocaine use Counselled patient to quit cocaine on multiple ocassions Echo No wall motion abnormalities Mild elevation of Troponin likely demand ischemia 2/2 NSVT H/O chronic troponin elevation; cardiac cath in the past demonstrated no significant coronary disease Appreciate Cardiology Input: Dr. Castillo -recommends no further workup at this time (4) COPD (chronic obstructive pulmonary disease): (5) Bronchitis: Continue nebs, Doxy, prednisone Saturating well on room air Ongoing Tobacco use: Counselled to quit (6) Prolonged QT interval: Resolved QTc 443 today Avoid QTC prolonging meds as able (7) Cocaine abuse: counseled regarding substance abuse (8) Alcohol abuse: No signs of withdrawal Received withdrawal protocol with gabapentin Continue thiamine, folic acid, multivitamin (9) Schizoaffective disorder, bipolar type: (10) Suicidal ideations: Evaluated by psychiatry: Doesn't meet Inpatient criteria as per [facility] perphenazine increased to 18 mg twice daily (patient's outpatient prescribed dose per psychiatry) Needs follow up with your Psychiatrist upon discharge (11) Atrial fibrillation: Rate controlled continue diltiazem Anticoagulated on Eliquis (noted patient was only taking daily at home, increased to appropriate twice daily dosing (12) HTN (hypertension): Mildly elevated Continue home meds: diltiazem, hydralazine, valsartan Close follow up with PCP (13) DM type 2 (diabetes mellitus, type 2): Hgb A1c 7.6 03/2018 Lantus and NovoLog per protocol (14) DVT prophylaxis: Anticoagulated on Eliquis Total Time Total Time Spent Total Time Spent (In Minutes): 40 minutes Total Time Includes: Examination of the Patient, Discharge Planning, Medication Reconciliation, Communication With Other Providers and Other Discharge Plan Discharge Items Patient Disposition: Home - Self-Care Reason For Visit: [place] Discharge Diagnosis: NSVT Substance abuse Acute Bronchitis HTN Discharge Goals: Decrease discomfort, Improve disease control and Improve function Activity: Resume your previous activity Exercise/Sports: Gradually increase as tolerated Non-emergency contact: Primary Care Provider and Entry Level Manufacturing Engineer Call non-emergency contact if: you have any medication questions, your symptoms worsen, your pain is not controlled, your pain is worsening, your pain is unusual for you and you have a fever Diet: Carb Consistent or DM2 and Heart Healthy Addtl Provider Instructions: Follow up with your PCP on 07/13/18 at 10:45AM Follow up with your Pulmnologist in 2-4 weeks Follow up with your Lead Security Officer as needed Complete the prednisone, antibiotic course as prescribed Seek immediate medical attention if your symptoms reoccur or worsen Prescriptions: New perphenazine 2 mg Tablet 18 mg PO BID Qty: 0 RF: 0 thiamine HCl (vitamin B1) [Vitamin B-1] 100 mg Tablet 100 mg PO QAM 30 Days Qty: 30 RF: 0 doxycycline hyclate 100 mg capsule 100 mg PO BID 5 Days Qty: 10 RF: 0 prednisone 20 mg tablet 40 mg PO DAILY 5 Days Qty: 10 RF: 0 folic acid 1 mg tablet 1 mg PO DAILY 30 Days Qty: 30 RF: 0 Continue albuterol sulfate 2.5 mg /3 mL (0.083 %) Solution For Nebulization 2.5 mg INHALATION QID PRN (Reason: Shortness Of Breath Or Wheezing) RF: 0 valacyclovir 500 mg Tablet 500 mg PO DAILY RF: 0 trazodone 100 mg Tablet 200 mg PO HS PRN (Reason: Sleep) RF: 0 baclofen 10 mg Tablet 10 mg PO TID PRN (Reason: Muscle Spasm) RF: 0 valsartan 320 mg Tablet 320 mg PO DAILY RF: 0 hydralazine 50 mg Tablet 50 mg PO BID RF: 0 albuterol sulfate [Ventolin HFA] 90 mcg/actuation Hfa Aerosol Inhaler 2 puff INHALATION Q6H PRN (Reason: Shortness Of Breath Or Wheezing) RF: 0 lactulose 20 gram Packet 20 g PO DAILY PRN (Reason: Constipation) RF: 0 insulin lispro [Humalog KwikPen Insulin] 100 unit/mL Insulin Pen 15 unit SUBCUT AC RF: 0 diltiazem HCl 300 mg Tablet Extended Release 24 Hr 300 mg PO DAILY RF: 0 hydrochlorothiazide 12.5 mg Tablet 12.5 mg PO DAILY RF: 0 insulin glargine [Basaglar KwikPen U-100 Insulin] 100 unit/mL (3 mL) Insulin Pen 55 unit SUBCUT HS RF: 0 omeprazole 20 mg Tablet,Delayed Release (Dr/Ec) 20 mg PO DAILY RF: 0 tiotropium bromide [Spiriva Respimat] 2.5 mcg/actuation Mist 2 puff INHALATION DAILY RF: 0 ipratropium-albuterol [Combivent Respimat] 20-100 mcg/actuation Mist 1 puff INHALATION QID RF: 0 Changed apixaban [Eliquis] 5 mg Tablet 5 mg PO BID Qty: 0 RF: 0 Discontinued perphenazine 2 mg Tablet 18 mg PO QAM RF: 0 perphenazine 16 mg Tablet 18 mg PO QAM RF: 0 Visit Report Forms: [facility] Portal Stand-Alone Forms: [facility] Discharge Orders: Discharge Order (Routine); Ordered 07/08/18 Ordered By: Viktor Durant Admission Data Admit Date/Time: 07/05/18 20:27 Attending Provider: Ameya Power Admit Provider: Viktor Durant Primary Care Provider: Marisel Nelson Other Providers: Derrick Smith ; Juancho Freeman ; Nehemiah Apple ; Jackson Stock ; Jp Lewis ; Toan Kyle Jr ; Alex Castillo ; Vivienne Meeks ; Kari Mendoza ; Emmett Roberts ; Emmett Hein ; Herb Bynum ; John Marrufo ; Yovani Kaminski ; Valerie Feliciano ; Bri May ; Marlee Gutierrez ; Viktor Durant Service: Medical Other Interventions: Discharge Summary Assessment (RN) Last Done: 07/08/18 11:00 Pending Studies at Discharge: No DC Date/Time DO NOT enter until pt leaves facility: 07/08/18 11:57
[2018-07-09] MEDS ORDERED: GABAPENTIN 600 MG TAB PO SCH (12:00)
== END 2018-07-08 11:57 | disposition home or self-care (01) ==
LOC: ED 17:29 → SUATTDRO 20:27 → 2S 20:27 → 4E 07-07 13:33

== ENCOUNTER 2018-10-10 12:21 | Inpatient (IN) ==
[2018-10-10] MEDS ORDERED: DiphenhydrAMINE HCL 50 MG/ML VIAL IV STA (12:42)
[2018-10-10] MEDS ORDERED: ACETAMINOPHEN 1,000 MG/100 ML VIAL IV STA (12:42)
[2018-10-10] MEDS ORDERED: SODIUM CHLORIDE 0.9% 1000ML 1,000 ML IV ONE ×2 (12:42→13:59)
[2018-10-10] MEDS ORDERED: PROCHLORPERAZINE 5 MG in SYRINGE 4 ML IV ONE (12:42)
[2018-10-10] MEDS ORDERED: LORazepam 1 MG/2 ML VIAL IV STA (12:45)
[2018-10-10 13:22] LABS: Basophils # (auto) 0.01 K/uL (0-0.2); Basophils % (auto) 0.1 %; Eosinophils # (auto) 0.04 K/uL (0-0.5); Eosinophils % (auto) 0.5 %; Hematocrit (blood only) 39.3 % (37-47); Hemoglobin 13.8 g/dL (12.0-16.0); Immature Granulocytes # (auto) 0.04 K/uL (0.00-0.02); Immature Granulocytes % (auto) 0.5 %; Lymphocytes # (auto) 1.03 K/uL (1.2-3.4); Lymphocytes % (auto) 13.1 %; Mean Corpuscular Hgb Conc 35.1 g/dL (32-36); Mean Corpuscular Volume 95.9 fL (80-100); Mean Platelet Volume 9.6 fL (7.4-10.4); Monocytes # (auto) 0.59 K/uL (0.11-0.59); Monocytes % (auto) 7.5 %; Neutrophils # (auto) 6.17 K/uL (1.4-6.5); Neutrophils % (auto) 78.3 %; Platelet Count 165 K/uL (130-400); RDW Coefficient of Variation 15.3 % (11.5-14.5); RDW Standard Deviation 53.4 fL (36.4-46.3); White Blood Count 7.88 K/uL (4.8-10.8)
[2018-10-10] MEDS ORDERED: PROCHLORPERAZINE 5 MG/ML 2 ML VIAL ONE (13:22)
[2018-10-10 13:38] LABS: Pregnancy Test, Serum Negative (Negative)
[2018-10-10 13:45] LABS: Albumin Level 3.6 gm/dl (3.4-5.0); BUN Creatinine Ratio 10.1 (10-20); Calcium 9.2 mg/dl (8.5-10.1); Creatinine Clr Calc Pharmacy 86.8 ml/min; Est GFR (African American) 78.7; Est GFR (Non-African American) 67.9; Magnesium 1.4 mg/dl (1.8-2.4); Potassium 3.5 mmol/L (3.5-5.1)
[2018-10-10 14:01] LABS: Albumin Globulin Ratio 0.8 (0.9-2); Bilirubin,Total 1.2 mg/dl (0.2-1); Globulin 4.4 gm/dl (2.5-4.0); Troponin I 0.143 ng/ml (0-0.045)
[2018-10-10] MEDS: MAGNESIUM SULFATE / D5W 1 GM/100 ML BAG IV SCH ×2 (14:10→15:34)
[2018-10-10] MEDS ORDERED: IOVERSOL 100ml IV PRN (14:42)
--- NOTE | 2018-10-10 14:48 | CT Scan Report ---
CT SCAN OF THE BRAIN WITHOUT IV CONTRAST CLINICAL HISTORY: Nausea and vomiting. Right parietal swelling. COMPARISON STUDY: CT of the brain dated 07/17/2018. TECHNIQUE: Unenhanced axial CT scan of the brain is performed from the vertex to the skull base. A d ose lowering technique was utilized adhering to the principles of ALARA. FINDINGS: Brain parenchyma: The brain parenchyma is normal in appearance. There is no hemorrhage, mass effect, or evidence of acute territorial ischemia by CT criteria. Rose-white matter differentiation is preser blaine. No extra-axial fluid collection is seen. Ventricles, sulci, cisterns: Normal in configuration. Intracranial vasculature: The visualized intracranial vasculature at the skull base is normal in appe arance. Calvarium: There is no depressed calvarial fracture. Soft tissues: There is minimal high right parietal scalp edema (axial image #27). Sinuses and mastoids: There is complete opacification of the right maxillary antrum, new from 07/17/19 19. Material protrudes through the ostiomeatal complex, and there is also complete opacification of s everal right ethmoid sinuses. Trace mucosal thickening is seen in the sphenoid sinuses and right fron ivania sinus. The mastoid air cells are well pneumatized. Orbits: The bony orbits are grossly intact. There is mild proptosis. IMPRESSION: 1. No acute intracranial abnormality. 2. There is paranasal sinus disease as above, new from 07/17/2018. 3. Minimal high right parietal scalp edema is noted. Electronically signed by: Valerio Copeland M.D. 10/10/2018 2:46 PM
--- NOTE | 2018-10-10 14:56 | CT Scan Report ---
CT SCAN OF THE ABDOMEN AND PELVIS WITH IV CONTRAST CLINICAL HISTORY: Nausea and vomiting. Generalized abdominal pain. COMPARISON STUDY: Abdominal CT dated 09/08/2018. TECHNIQUE: Following the IV administration of 93 cc of Optiray 320, CT scan of the abdomen and pelvis is performed from the lung bases to the proximal femora. Images are reviewed in the axial, sagittal, and coronal planes. IV contrast was administered without complication. A dose lowering technique was utilized adhering to the principles of ALARA. The examination is degraded by large body habitus, and by streak artifact from the body wall abutting the CT gantry. CT DOSE: 2460.06 mGy.cm FINDINGS: Lung bases: The heart is normal in size and without pericardial effusion. The lung bases are clear. Liver: The contrast-enhanced liver is enlarged, measuring 19.6 cm in length. The liver demonstrates d iffusely diminished attenuation consistent with severe hepatic steatosis. Fatty sparing is seen adjac ent to gallbladder fossa. There is no intrahepatic biliary ductal dilatation. The hepatic veins and p ortal veins are patent. Gallbladder: Unremarkable. Spleen: Normal in size and attenuation. Pancreas: The pancreatic head appears enlarged and edematous. There is significant surrounding inflam matory stranding and fluid. The pancreas enhances homogeneously. The pancreatic duct is normal in marilynn iber. The splenic vein is patent. There is significant wall thickening and edema identified within th e adjacent duodenum. No organized. Fluid collection is identified. Adrenal glands: Unremarkable. Kidneys: The contrast-enhanced kidneys are normal in size and without hydronephrosis. The kidneys enh ance symmetrically. Abdominal vasculature: The abdominal aorta is normal in course and caliber noting mild to moderate at herosclerotic calcification. Bowel: As noted above, there is significant wall thickening and edema identified within the proximal duodenum adjacent to the pancreatic head. No bowel obstruction is seen. The appendix is well-visuali zed and normal. Peritoneum: There is no intraperitoneal free air or abdominal ascites. Foci of induration within the ventral abdominal pannus are likely related to subcutaneous injections. Lymphadenopathy: None. Pelvic viscera: The bladder, uterus, and adnexa are normal as visualized. Small ovarian follicles are incidentally noted. Skeletal structures: No lytic or blastic lesions are seen. IMPRESSION: 1. There is an inflammatory process identified surrounding the pancreatic head and involving the prox imal duodenum. This likely represents acute pancreatitis with associated inflammation of the duodenum . Primary duodenitis is a differential consideration. Correlation with serum amylase/lipase levels is recommended. 2. The pancreas enhances homogeneously. No peripancreatic fluid collection is identified. 3. Hepatomegaly and severe hepatic steatosis. 4. Additional findings as above. Electronically signed by: Valerio Copeland M.D. 10/10/2018 2:55 PM
[2018-10-10] MEDS ORDERED: FAMOTIDINE 20MG/5ML IV PUSH IV STA (15:04)
--- NOTE | 2018-10-10 17:14 | History & Physical Report ---
Date of Service October 10, 2018 Assessment & Plan (1) Acute pancreatitis: Present on admission with abdominal pain associated with nausea and vomiting started last night after drinking Alcohol CT abd/pelvis showed inflammatory process identified surrounding the pancreatic head and involving the proximal duodenum. Lipase on admission above 4k Received IVF on admission Continue on IVF and pain control Will keep NPO for now GI consult Follow up lipase (2) Alcohol abuse: Drink alcohol daily Will start on gabapentin alcohol withdraw protocol Continue thiamine and folic acid Will monitor for signs of alcohol withdrawn Counseling on alcohol cessation (3) Elevated troponin: Chronic elevated troponin No ischemic changes on EKG Will follow troponin level Monitor in tele (4) DM type 2 (diabetes mellitus, type 2): Elevated glucose Last Hba1c 7.6 Will hold on Lantus since pt NPO Continue insulin sliding scale Check HBa1c Monitor BS Scalp swelling Possible related to fall? CT head showed Minimal high right parietal scalp edema Continue monitor HTN BP elevated has not been taking the valsartan Resume Vasalrtan Will add labetalol prn Monitor BP Cocaine abuse Will check UDS Counseling on cocaine cessation PAF Rate controlled on Diltiazem Continue Eliquis High risk of falls fue to alcohol abuse Tobacco abuse Counseling on smoking cessation DVT px on Eliquis CODE status Full code History of Present Illness Chief Complaint: Abdominal Pain Primary Care Provider: Marisel Nelson MD 53 y/o Female with PMH COPD on home O2, PAF on Eliquis, history of TIA, hypertension, DM 2 insulin requiring, mood disorder/paranoid schizophrenia, history ongoing cocaine/alcohol/tobacco abuse, HTN present to the ER for abdominal pain associated with nausea and vomiting. Pt said that she drinks alcohol every day (hard liquor). She said that last night after drinking alcohol, she developed mid abdominal pain and radiated to her back. She said that then she started to vomit.She said that she had multiple episodes of vomiting. Pt said describes the pain as cramping and constant with grade 9/10 in severity. She said that she was awake all night due to te pain. Pt said that she had not eaten since yesterday. Pt said that if she does not drink for a few days, she starts to have tremor. Pt said that she does have SOB. She is on Eliquis and continues to drink alcohol daily. Denies any chest pain, palpitation, dizziness and fever. Allergies Allergy/AdvReac Type Severity Reaction Status Date / Time haloperidol Allergy Severe TONGUE Verified 10/10/18 13:23 SWELLING insulin lispro Allergy Intermediate HIVES Verified 10/10/18 13:23 phenol Allergy Intermediate HIVES Verified 10/10/18 13:23 citalopram Allergy Mild ITCHING Verified 10/10/18 13:23 sulfamethoxazole Allergy Mild RASH Verified 10/10/18 13:23 trimethoprim Allergy Mild RASH Verified 10/10/18 13:23 Bactrim Allergy Unknown RASH Verified 12/01/17 16:09 Penicillins Allergy Unknown UNKNOWN Verified 10/10/18 13:23 topiramate AdvReac Severe SEIZURE Verified 10/10/18 13:23 LIKE ACTIVITY morphine AdvReac Mild HEADACHE Verified 10/10/18 13:23 oxycodone AdvReac Mild ITCH Verified 10/10/18 13:23 Margarine Allergy Severe RASH Uncoded 10/10/18 13:23 Home Medications Home Medications Medication Instructions Recorded Confirmed Type Ameliaaglar TawanaikPen U-100 Insulin 60 unit SUBCUT HS 07/05/18 10/10/18 History Spiriva Respimat 2 puff INHALATION QAM 07/05/18 10/10/18 History albuterol sulfate 2.5 mg INHALATION Q4 PRN 07/05/18 10/10/18 History diltiazem HCl 300 mg PO QAM 07/05/18 10/10/18 History hydralazine 50 mg PO BID 07/05/18 10/10/18 History omeprazole 20 mg PO QAM 07/05/18 10/10/18 History trazodone 200 mg PO HS PRN 07/05/18 10/10/18 History valacyclovir 500 mg PO QAM 07/05/18 10/10/18 History valsartan 320 mg PO QAM 07/05/18 10/10/18 History Eliquis 5 mg PO QAM 09/29/18 10/10/18 History cyclobenzaprine 10 mg PO BID PRN 09/29/18 10/10/18 History lactulose [Constulose] 30 ml PO DAILY PRN 09/29/18 10/10/18 History mometasone-formoterol [Dulera] 2 puff INHALATION BID 09/29/18 10/10/18 History ranitidine HCl 300 mg PO HS 09/29/18 10/10/18 History gabapentin 1 tab PO TID 10/10/18 10/10/18 History hydrochlorothiazide 1 tab PO DAILY 10/10/18 10/10/18 History metformin 2 tab PO DAILY 10/10/18 10/10/18 History perphenazine 18 mg PO BID 10/10/18 10/10/18 History Past Med/Surg History Medical History EtOH dependence (Acute) DM type 2 (diabetes mellitus, type 2) Alcohol abuse Suicidal ideations Bronchitis (Acute) Prolonged QT interval Non-sustained ventricular tachycardia (Acute) Tobacco use disorder (Chronic) History of opioid abuse (Chronic) Cocaine abuse (Chronic) Hx of suicide attempt (Resolved) Diabetes (Chronic) COPD (chronic obstructive pulmonary disease) (Chronic) Fatty liver (Chronic) Elevated troponin (Chronic) Obesity (Chronic) HTN (hypertension) (Chronic) Sleep apnea (Chronic) Neuropathy (Chronic) Sciatic nerve disease (Chronic) Atrial fibrillation (Chronic) Epistaxis, recurrent (Chronic) Chronic generalized pain disorder (Chronic) Schizoaffective disorder, bipolar type (Chronic) COPD with exacerbation (Acute) Alcohol induced acute pancreatitis (Acute) ETOH abuse Rectal bleeding (Acute) Surgical History H/O ovarian cystectomy (Resolved) H/O foot surgery (Resolved) Family History Other Heart disease Social History Preferred Language: Greek Communication Ability: Effective 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 current occupational status: unemployed and disabled Other Information That Helps Us Care for You: No Feels Safe at Home: Yes Safety Concerns: Feels Safe At This Time Smoking Status: Current every day smoker Hx Alcohol Use: Yes Hx Substance Use: Yes Review of Systems All systems reviewed & are unremarkable except as noted in HPI & below Physical Exam Vital Signs (Past 24 Hours): Last Vital Signs Temp 36.6 C 10/10/18 12:23 Pulse 91 H 10/10/18 16:45 Resp 25 H 10/10/18 16:45 BP 142/87 H 10/10/18 16:32 Pulse Ox 96 10/10/18 16:45 Physical Exam: General Appearance:Morbidly Obese, no apparent distress Head: normocephalic Eyes: normal inspection, EOMI Neck: supple, Trachea midline Respiratory/Chest: No wheezing, No rales Cardiovascular: S1, S2, No murmur Abdomen: +tenderness, Bowel sounds present Extremities/Musculoskelatal:normal inspection, Trace pedal edema Neurologic/Psych:AAOX3, +mild tremor Skin: normal color, warm Results & Data Diagnostic Findings CT SCAN OF THE BRAIN WITHOUT IV CONTRAST CLINICAL HISTORY: Nausea and vomiting. Right parietal swelling. COMPARISON STUDY: CT of the brain dated 07/17/2018. TECHNIQUE: Unenhanced axial CT scan of the brain is performed from the vertex to the skull base. A dose lowering technique was utilized adhering to the principles of ALARA. FINDINGS: Brain parenchyma: The brain parenchyma is normal in appearance. There is no hemorrhage, mass effect, or evidence of acute territorial ischemia by CT criteria. Rose-white matter differentiation is preserved. No extra-axial fluid collection is seen. Ventricles, sulci, cisterns: Normal in configuration. Intracranial vasculature: The visualized intracranial vasculature at the skull base is normal in appearance. Calvarium: There is no depressed calvarial fracture. Soft tissues: There is minimal high right parietal scalp edema (axial image #27). Sinuses and mastoids: There is complete opacification of the right maxillary antrum, new from 07/17/2018. Material protrudes through the ostiomeatal complex, and there is also complete opacification of several right ethmoid sinuses. Trace mucosal thickening is seen in the sphenoid sinuses and right frontal sinus. The mastoid air cells are well pneumatized. Orbits: The bony orbits are grossly intact. There is mild proptosis. IMPRESSION: 1. No acute intracranial abnormality. 2. There is paranasal sinus disease as above, new from 07/17/2018. 3. Minimal high right parietal scalp edema is noted. Electronically signed by: Valerio Copeland M.D. 10/10/2018 2:46 PM Dictated: 10/10/18 1443 Transcribed: 10/10/[address] SCAN OF THE ABDOMEN AND PELVIS WITH IV CONTRAST CLINICAL HISTORY: Nausea and vomiting. Generalized abdominal pain. COMPARISON STUDY: Abdominal CT dated 09/08/2018. TECHNIQUE: Following the IV administration of 93 cc of Optiray 320, CT scan of the abdomen and pelvis is performed from the lung bases to the proximal femora. Images are reviewed in the axial, sagittal, and coronal planes. IV contrast was administered without complication. A dose lowering technique was utilized adhering to the principles of ALARA. The examination is degraded by large body habitus, and by streak artifact from the body wall abutting the CT gantry. CT DOSE: 2460.06 mGy.cm FINDINGS: Lung bases: The heart is normal in size and without pericardial effusion. The lung bases are clear. Liver: The contrast-enhanced liver is enlarged, measuring 19.6 cm in length. The liver demonstrates diffusely diminished attenuation consistent with severe hepatic steatosis. Fatty sparing is seen adjacent to gallbladder fossa. There is no intrahepatic biliary ductal dilatation. The hepatic veins and portal veins are patent. Gallbladder: Unremarkable. Spleen: Normal in size and attenuation. Pancreas: The pancreatic head appears enlarged and edematous. There is sig nificant surrounding inflammatory stranding and fluid. The pancreas enhances homogeneously. The pancreatic duct is normal in caliber. The splenic vein is patent. There is significant wall thickening and edema identified within the adjacent duodenum. No organized. Fluid collection is identified. Adrenal glands: Unremarkable. Kidneys: The contrast-enhanced kidneys are normal in size and without h ydronephrosis. The kidneys enhance symmetrically. Abdominal vasculature: The abdominal aorta is normal in course and caliber noting mild to moderate atherosclerotic calcification. Bowel: As noted above, there is significant wall thickening and edema identified within the proximal duodenum adjacent to the pancreatic head. No bowel obstruction is seen. The appendix is well-visualized and normal. Peritoneum: There is no intraperitoneal free air or abdominal ascites. Foci of induration within the ventral abdominal pannus are likely related to subcutaneous injections. Lymphadenopathy: None. Pelvic viscera: The bladder, uterus, and adnexa are normal as visualized. Small ovarian follicles are incidentally noted. Skeletal structures: No lytic or blastic lesions are seen. IMPRESSION: 1. There is an inflammatory process identified surrounding the pancreatic head and involving the proximal duodenum. This likely represents acute pancreatitis with associated inflammation of the duodenum. Primary duodenitis is a differential consideration. Correlation with serum amylase/lipase levels is recommended. 2. The pancreas enhances homogeneously. No peripancreatic fluid collection is identified. 3. Hepatomegaly and severe hepatic steatosis. 4. Additional findings as above. Electronically signed by: Valerio Copeland M.D. 10/10/2018 2:55 PM Dictated: 10/10/18 1447 Transcribed: 10/10/18 1447
[2018-10-10] MEDS ORDERED: GLUCAGON FOR INJ 1 MG VIAL SQ PRN (19:18)
[2018-10-10] MEDS ORDERED: GLUCOSE 40% GEL 15 GM TUBE PO PRN (19:18)
[2018-10-10] MEDS ORDERED: ONDANSETRON INJ 2 MG/ML 2 ML VIAL IV PRN (19:18)
[2018-10-10] MEDS ORDERED: CARBOHYDRATES FOR HYPOGLYCEMIA PO PRN (19:18)
[2018-10-10] MEDS ORDERED: GABAPENTIN 1200MG ALCOHOL WITHDRAWAL LOAD PO STA (19:18)
[2018-10-10] MEDS ORDERED: GLUCOSE 10 TABS/TUBE PO PRN (19:18)
[2018-10-10] MEDS ORDERED: DEXTROSE 50% 50 ML SYRINGE IV PRN (19:18)
[2018-10-10] MEDS ORDERED: Nursing to Pharmacy Communication ONE (19:21)
[2018-10-10] MEDS ORDERED: LACTULOSE SYRUP 20 GM/30 ML UDC PO PRN (19:28)
[2018-10-10] MEDS ORDERED: MULTI-VITAMIN INFUSION 10 ML, THIAMINE HCL 100 MG, FOLIC ACID 1 MG in SODIUM CHLORIDE 0... IV SCH (20:00)
[2018-10-10] MEDS ORDERED: GABAPENTIN 600 MG TAB PO SCH (20:00)
[2018-10-10] MEDS: MoRPHine SULFATE 2 MG/ML CARP IV PRN (20:21)
[2018-10-10] MEDS: SODIUM CHLORIDE 0.9% 1000ML 1,000 ML IV SCH (20:21)
[2018-10-10] MEDS: PERPHENAZINE 2 MG TABLET PO SCH (20:22)
[2018-10-10] MEDS: HydrALAZINE TAB 50 MG TAB PO SCH (20:23)
--- NOTE | 2018-10-10 20:26 | Emergency Department Note ---
Entered by Marta Rivera acting as a scribe for Gloria Johnson DO History of Present Illness General Chief complaint: Abdominal Pain Stated complaint: STOMACH PAIN - VOMITING - HEAD SWOLLEN - HAND NUMN Time Seen by Provider: 10/10/18 12:34 Source: patient History of Present Illness Onset (ago): day(s) (last night) Location: abdomen Pain Consistency: + other (episode) Maximum Pain Intensity: 10 Quality: + other (stomach pain and vomiting) Associated symptoms: + denies other symptoms (diarrhea), + nausea/vomiting (nausea) and + other (lump on the back of her head, constipation, numbness in bilateral hands); no fever/chills The patient is a 53 year old female who presents to the Emergency Room with complaints of an episode of stomach pain and nausea that started last night. The patient reports she has associated chills, sweats, and a lump on the back of her head, but she denies falling at all. She notes that the stomach pain is worst in the epigastric region. She states she did not eat anything unusual. She notes that she last ate yesterday morning. She reports that she feels like her stomach is in knots. She denies having any sick contacts. She states that she has had diarrhea for the past month but notes that she feels constipated now. The patient states her hands are numb bilaterally. She denies being . She states that she smokes marijuana occasionally but not regularly. She states she still has her gall bladder but has a history of pancreatitis due to alcohol abuse. Patient does have a prior history of documented cocaine abuse. Patient denies any recent cocaine or other illicit drug use. Home Medications Home Medications Medication Instructions Recorded Confirmed Type Jerson Boudreaux U-100 Insulin 60 unit SUBCUT 07/05/18 10/10/18 History Spiriva Respimat 2 puff INHALATION QAM 07/05/18 10/10/18 History albuterol sulfate 2.5 mg INHALATION Q4 PRN 07/05/18 10/10/18 History diltiazem HCl 300 mg PO QAM 07/05/18 10/10/18 History hydralazine 50 mg PO BID 07/05/18 10/10/18 History omeprazole 20 mg PO QAM 07/05/18 10/10/18 History trazodone 200 mg PO HS PRN 07/05/18 10/10/18 History valacyclovir 500 mg PO QAM 07/05/18 10/10/18 History valsartan 320 mg PO QAM 07/05/18 10/10/18 History Eliquis 5 mg PO QAM 09/29/18 10/10/18 History cyclobenzaprine 10 mg PO BID PRN 09/29/18 10/10/18 History lactulose [Constulose] 30 ml PO DAILY PRN 09/29/18 10/10/18 History mometasone-formoterol [Dulera] 2 puff INHALATION BID 09/29/18 10/10/18 History ranitidine HCl 300 mg PO HS 09/29/18 10/10/18 History gabapentin 1 tab PO TID 10/10/18 10/10/18 History hydrochlorothiazide 1 tab PO DAILY 10/10/18 10/10/18 History metformin 2 tab PO DAILY 10/10/18 10/10/18 History perphenazine 18 mg PO BID 10/10/18 10/10/18 History Allergies Allergy/AdvReac Type Severity Reaction Status Date / Time haloperidol Allergy Severe TONGUE Verified 10/10/18 13:23 SWELLING insulin lispro Allergy Intermediate HIVES Verified 10/10/18 13:23 phenol Allergy Intermediate HIVES Verified 10/10/18 13:23 citalopram Allergy Mild ITCHING Verified 10/10/18 13:23 sulfamethoxazole Allergy Mild RASH Verified 10/10/18 13:23 trimethoprim Allergy Mild RASH Verified 10/10/18 13:23 Bactrim Allergy Unknown RASH Verified 12/01/17 16:09 Penicillins Allergy Unknown UNKNOWN Verified 10/10/18 13:23 topiramate AdvReac Severe SEIZURE Verified 10/10/18 13:23 LIKE ACTIVITY morphine AdvReac Mild HEADACHE Verified 10/10/18 13:23 oxycodone AdvReac Mild ITCH Verified 10/10/18 13:23 Margarine Allergy Severe RASH Uncoded 10/10/18 13:23 Past Med/Surg History Medical History EtOH dependence (Acute) DM type 2 (diabetes mellitus, type 2) Alcohol abuse Suicidal ideations Bronchitis (Acute) Prolonged QT interval Non-sustained ventricular tachycardia (Acute) Tobacco use disorder (Chronic) History of opioid abuse (Chronic) Cocaine abuse (Chronic) Hx of suicide attempt (Resolved) Diabetes (Chronic) COPD (chronic obstructive pulmonary disease) (Chronic) Fatty liver (Chronic) Elevated troponin (Chronic) Obesity (Chronic) HTN (hypertension) (Chronic) Sleep apnea (Chronic) Neuropathy (Chronic) Sciatic nerve disease (Chronic) Atrial fibrillation (Chronic) Epistaxis, recurrent (Chronic) Chronic generalized pain disorder (Chronic) Schizoaffective disorder, bipolar type (Chronic) COPD with exacerbation (Acute) Alcohol induced acute pancreatitis (Acute) ETOH abuse Rectal bleeding (Acute) Surgical History H/O ovarian cystectomy (Resolved) H/O foot surgery (Resolved) Family History Other Heart disease Social History Preferred Language: Swedish Communication Ability: Effective Splunk Consultant Required: No Beliefs That Will Affect Care: None marital status: single Current Living Situation: Family Current Living Situation Comment: lives with brothers? current occupational status: unemployed and disabled Other Information That Helps Us Care for You: No Feels Safe at Home: Yes Safety Concerns: Feels Safe At This Time Smoking Status: Current every day smoker Hx Alcohol Use: Yes Hx Substance Use: Yes Review of Systems See HPI for pertinent positives & negatives. and A total of 10 systems reviewed and were otherwise negative Physical Exam Vital Signs Vital Signs - 24 hr 10/10/18 12:23 10/10/18 14:15 10/10/18 15:30 Temperature 36.6 C Temperature Source Oral Sepsis Recent Fever Within 48 Hours No Sepsis Action Taken by Nursing No Action Required Pulse Rate 120 H 92 H Pulse Rate [Left Finger] 93 H Pulse Rate from SpO2 Sensor 92 H Pulse Rhythm [Left Finger] Regular Pulse Strength [Left Finger] Normal Respiratory Rate 18 20 21 Respiratory Effort / Characteristics Non-Labored Spontaneous Non-Labored Spontaneous Respiratory Depth Normal Normal Respiratory Pattern Regular Regular Blood Pressure 173/115 H 145/85 H Blood Pressure [Left Arm] 136/72 Blood Pressure Mean 134 105 Blood Pressure Mean [Left Arm] 93 Blood Pressure Position Sitting Blood Pressure Position [Left Arm] Sitting Pulse Oximetry 98 99 98 Pulse Oximetry [Right Index Finger] Oxygen Delivery Method Room Air Room Air Room Air Oxygen Delivery Method [Right Index Finger] 10/10/18 15:45 04/13/19 16:29 10/10/18 16:30 Temperature Temperature Source Sepsis Recent Fever Within 48 Hours Sepsis Action Taken by Nursing Pulse Rate 97 H 98 H 101 H Pulse Rate [Left Finger] Pulse Rate from SpO2 Sensor 97 H 100 H Pulse Rhythm [Left Finger] Pulse Strength [Left Finger] Respiratory Rate 24 Respiratory Effort / Characteristics Respiratory Depth Respiratory Pattern Blood Pressure Blood Pressure [Left Arm] Blood Pressure Mean Blood Pressure Mean [Left Arm] Blood Pressure Position Blood Pressure Position [Left Arm] Pulse Oximetry 95 97 Pulse Oximetry [Right Index Finger] Oxygen Delivery Method Oxygen Delivery Method [Right Index Finger] 10/10/18 16:32 10/10/18 16:45 10/10/18 19:18 Temperature 36.9 C Temperature Source Oral Sepsis Recent Fever Within 48 Hours Sepsis Action Taken by Nursing Pulse Rate 101 H 91 H 104 H Pulse Rate [Left Finger] 84 Pulse Rate from SpO2 Sensor 102 H 93 H Pulse Rhythm [Left Finger] Pulse Strength [Left Finger] Respiratory Rate 23 25 H 18 Respiratory Effort / Characteristics Non-Labored Spontaneous Respiratory Depth Normal Respiratory Pattern Regular Blood Pressure 142/87 H Blood Pressure [Left Arm] 173/95 H Blood Pressure Mean 105 Blood Pressure Mean [Left Arm] 121 Blood Pressure Position Blood Pressure Position [Left Arm] Lying Pulse Oximetry 96 96 99 Pulse Oximetry [Right Index Finger] 99 Oxygen Delivery Method Room Air Room Air Oxygen Delivery Method [Right Index Finger] Room Air 10/10/18 20:12 Temperature 37.0 C Temperature Source Oral Sepsis Recent Fever Within 48 Hours Sepsis Action Taken by Nursing Pulse Rate Pulse Rate [Left Finger] 103 H Pulse Rate from SpO2 Sensor Pulse Rhythm [Left Finger] Pulse Strength [Left Finger] Respiratory Rate 24 Respiratory Effort / Characteristics Respiratory Depth Respiratory Pattern Blood Pressure Blood Pressure [Left Arm] Blood Pressure Mean Blood Pressure Mean [Left Arm] Blood Pressure Position Blood Pressure Position [Left Arm] Pulse Oximetry 92 Pulse Oximetry [Right Index Finger] Oxygen Delivery Method Room Air Oxygen Delivery Method [Right Index Finger] GENERAL: alert, well appearing, well nourished, no distress, non-toxic, obese EYE EXAM: normal conjunctiva, PERRL and EOM's grossly intact OROPHARYNX: no exudate, no erythema, lips, buccal mucosa, and tongue normal and mucous membranes are moist NECK: supple, no nuchal rigidity, no adenopathy, non-tender LUNGS: Clear to auscultation. Normal chest wall mechanics, no w/r/r HEART: no murmurs, S1 normal and S2 normal ABDOMEN: abdomen soft, non-tender, normo-active bowel sounds, no masses, no rebound or guarding. BACK: Back is symmetrical on inspection and there is no deformity, no midline tenderness, no CVA tenderness. SKIN: no rashes and no bruising UPPER EXTREMITIES: upper extremities are grossly normal. FROM, nml pulses b/l. LOWER EXTREMITIES: No pitting edema. FROM, nml pulses b/l. NEURO EXAM: Normal sensorium, normal speech, no gross weakness of arms, no gross weakness of legs. Course 1237: The patient was evaluated in room B09, and a complete history and physical examination were performed. 1422: I updated the patient on her current lab results. The patient reports feeling better and that the pain has improving. She admitted to drinking alcohol recently on reexamination. 1506: I discussed the patient's case with Dr. Waldrop [facility] [place], who will evaluate the patient for further management and care. 1510: I discussed today's findings with the patient. She verbalized agreement of the treatment plan. She will be evaluated for further managment and care. Consultations Consultation #1: I discussed the patient's case with RAGINI Valderrama, who will evaluate the patient for further management and care. Time: 15:06 Administered Medications Discontinued Medications Diphenhydramine HCl (Benadryl) 25 mg IV NOW STA Stop: 10/10/18 12:43 Last Admin: 10/10/18 13:40 Dose: 25 mg Documented by: [id number] Famotidine (Pepcid 20mg Iv Push) 20 mg IV ONE STA Stop: 10/10/18 15:05 Last Admin: 10/10/18 15:35 Dose: 20 mg Documented by: [id number] Lorazepam (Ativan) 1 mg in 2 mls @ 2 mls/min IV NOW STA Stop: 10/10/18 12:46 Last Admin: 10/10/18 13:41 Dose: 2 mls/min Documented by: [id number] Acetaminophen (Ofirmev) 1,000 mg in 100 mls @ 400 mls/hr IV NOW STA Stop: 10/10/18 12:56 Last Infusion: 10/10/18 14:05 Dose: 0 mls/hr Documented by: [id number] Admin: 10/10/18 13:40 Dose: 400 mls/hr Documented by: [id number] Prochlorperazine 5 mg/ Syringe 5 mls @ 5 mls/min IV ONE ONE Stop: 10/10/18 12:43 Last Admin: 10/10/18 13:40 Dose: 5 mls/min Documented by: [id number] Sodium Chloride (Nss 1000ml) 1,000 mls @ 999 mls/hr IV .Q1H1M ONE Stop: 10/10/18 13:42 Last Infusion: 10/10/18 20:03 Dose: 0 mls/hr Documented by: [id number] Infusion: 10/10/18 14:05 Dose: 0 mls/hr Documented by: [id number] Admin: 10/10/18 13:40 Dose: 999 mls/hr Documented by: [id number] Magnesium Sulfate/Dextrose (Magnesium Sulfate / D5w) 1 gm in 100 mls @ 100 mls/hr IV Q1H CARLOS Stop: 10/10/18 15:59 Last Infusion: 10/10/18 16:35 Dose: 0 mls/hr Documented by: [id number] Admin: 10/10/18 15:34 Dose: 100 mls/hr Documented by: [id number] Infusion: 10/10/18 15:17 Dose: 0 mls/hr Documented by: [id number] Admin: 10/10/18 14:10 Dose: 100 mls/hr Documented by: [id number] Sodium Chloride (Nss 1000ml) 1,000 mls @ 999 mls/hr IV .Q1H1M ONE Stop: 10/10/18 14:59 Last Infusion: 10/10/18 15:17 Dose: 0 mls/hr Documented by: [id number] Admin: 10/10/18 14:10 Dose: 999 mls/hr Documented by: [id number] Ioversol (Optiray 320 100ml) 93 ml IV ONCE PRN PRN Reason: Interaction Checking Stop: 10/14/18 14:41 Last Admin: 10/10/18 14:42 Dose: 93 ml Documented by: [id number] Prochlorperazine (Compazine) Confirm Administered Dose 10 mg .ROUTE .STK-MED ONE Stop: 10/10/18 13:23 Last Admin: 10/10/18 13:41 Dose: Not Given Documented by: [id number] Medical Decision Making Differential Diagnosis Differential diagnoses includes but is not limited to gastritis, peptic ulcer disease, GERD, gallbladder disease, pancreatitis, small bowel obstruction, acute coronary syndrome, pericarditis, ischemic bowel, irritable bowel disease, irritable bowel syndrome, appendicitis, diverticulitis, malignancy, hernia, urinary tract infection, torsion, [/ectopic (if female)], perforation, trauma, infectious. Medical Records Attestation: I reviewed the patient's medical records. Home Medications Current Medication List: was personally reviewed by me Laboratory Data Attestation: I reviewed the patient's lab results. Result diagrams: 10/10/18 13:10 10/10/18 13:10 Lab Results 10/10/18 10/10/18 10/10/18 Range/Units 13:10 13:10 13:10 WBC 7.88 (4.8-10.8) K/uL RBC 4.10 L (4.2-5.4) M/uL Hgb 13.8 (12.0-16.0) g/dL Hct 39.3 (37-47) % MCV 95.9 (80-100) fL MCH 33.7 (25-34) pg MCHC 35.1 (32-36) g/dL RDW Std Deviation 53.4 H (36.4-46.3) fL RDW Coeff of Ally 15.3 H (11.5-14.5) % Plt Count 165 (130-400) K/uL MPV 9.6 (7.4-10.4) fL Immature Gran % (Auto) 0.5 % Neut % (Auto) 78.3 % Lymph % (Auto) 13.1 % Ford % (Auto) 7.5 % Eos % (Auto) 0.5 % Baso % (Auto) 0.1 % Immature Gran # (Auto) 0.04 H (0.00-0.02) K/uL Neut # (Auto) 6.17 (1.4-6.5) K/uL Lymph # (Auto) 1.03 L (1.2-3.4) K/uL Ford # (Auto) 0.59 (0.11-0.59) K/uL Eos # (Auto) 0.04 (0-0.5) K/uL Baso # (Auto) 0.01 (0-0.2) K/uL Sodium 135 L (136-145) mmol/L Potassium 3.5 (3.5-5.1) mmol/L Chloride 97 L (98-107) mmol/L Carbon Dioxide 27 (21-32) mmol/L Anion Gap 11.0 (3-11) BUN 10 (7-18) mg/dl Creatinine 0.95 (0.6-1.2) mg/dl Est Cr Clr Drug Dosing 86.8 ml/min Est GFR ( Amer) 78.7 Est GFR (Non-Af Amer) 67.9 BUN/Creatinine Ratio 10.1 (10-20) Glucose 212 H (70-99) mg/dl POC Glucose (70-99) Calcium 9.2 (8.5-10.1) mg/dl Magnesium 1.4 L (1.8-2.4) mg/dl Total Bilirubin 1.2 H (0.2-1) mg/dl AST 38 H (15-37) U/L ALT 79 H (12-78) U/L Alkaline Phosphatase 116 (45-117) U/L Troponin I 0.143 H* (0-0.045) ng/ml Total Protein 8.0 (6.4-8.2) gm/dl Albumin 3.6 (3.4-5.0) gm/dl Globulin 4.4 H (2.5-4.0) gm/dl Albumin/Globulin Ratio 0.8 L (0.9-2) Lipase 4217 H (73-393) U/L TSH 0.540 (0.300-4.500) uIu/ml HCG, Qual Negative (Negative) Ethyl Alcohol mg/dL (0-3) mg/dl 10/10/18 10/10/18 Range/Units 14:08 19:33 WBC (4.8-10.8) K/uL RBC (4.2-5.4) M/uL Hgb (12.0-16.0) g/dL Hct (37-47) % MCV (80-100) fL MCH (25-34) pg MCHC (32-36) g/dL RDW Std Deviation (36.4-46.3) fL RDW Coeff of Ally (11.5-14.5) % Plt Count (130-400) K/uL MPV (7.4-10.4) fL Immature Gran % (Auto) % Neut % (Auto) % Lymph % (Auto) % Ford % (Auto) % Eos % (Auto) % Baso % (Auto) % Immature Gran # (Auto) (0.00-0.02) K/uL Neut # (Auto) (1.4-6.5) K/uL Lymph # (Auto) (1.2-3.4) K/uL Ford # (Auto) (0.11-0.59) K/uL Eos # (Auto) (0-0.5) K/uL Baso # (Auto) (0-0.2) K/uL Sodium (136-145) mmol/L Potassium (3.5-5.1) mmol/L Chloride (98-107) mmol/L Carbon Dioxide (21-32) mmol/L Anion Gap (3-11) BUN (7-18) mg/dl Creatinine (0.6-1.2) mg/dl Est Cr Clr Drug Dosing ml/min Est GFR ( Amer) Est GFR (Non-Af Amer) BUN/Creatinine Ratio (10-20) Glucose (70-99) mg/dl POC Glucose 158 H (70-99) Calcium (8.5-10.1) mg/dl Magnesium (1.8-2.4) mg/dl Total Bilirubin (0.2-1) mg/dl AST (15-37) U/L ALT (12-78) U/L Alkaline Phosphatase (45-117) U/L Troponin I (0-0.045) ng/ml Total Protein (6.4-8.2) gm/dl Albumin (3.4-5.0) gm/dl Globulin (2.5-4.0) gm/dl Albumin/Globulin Ratio (0.9-2) Lipase (73-393) U/L TSH (0.300-4.500) uIu/ml HCG, Qual (Negative) Ethyl Alcohol mg/dL < 3.0 (0-3) mg/dl Imaging Data Radiologist's Impression: Radiology results as stated below per my review and the radiologist's interpretation: CT SCAN OF THE ABDOMEN AND PELVIS WITH IV CONTRAST CLINICAL HISTORY: Nausea and vomiting. Generalized abdominal pain. COMPARISON STUDY: Abdominal CT dated 09/08/2018. TECHNIQUE: Following the IV administration of 93 cc of Optiray 320, CT scan of the abdomen and pelvis is performed from the lung bases to the proximal femora. Images are reviewed in the axial, sagittal, and coronal planes. IV contrast was administered without complication. A dose lowering technique was utilized adhering to the principles of ALARA. The examination is degraded by large body habitus, and by streak artifact from the body wall abutting the CT gantry. CT DOSE: 2460.06 mGy.cm FINDINGS: Lung bases: The heart is normal in size and without pericardial effusion. The lung bases are clear. Liver: The contrast-enhanced liver is enlarged, measuring 19.6 cm in length. The liver demonstrates diffusely diminished attenuation consistent with severe hepatic steatosis. Fatty sparing is seen adjacent to gallbladder fossa. There is no intrahepatic biliary ductal dilatation. The hepatic veins and portal veins are patent. Gallbladder: Unremarkable. Spleen: Normal in size and attenuation. Pancreas: The pancreatic head appears enlarged and edematous. There is significant surrounding inflammatory stranding and fluid. The pancreas enhances homogeneously. The pancreatic duct is normal in caliber. The splenic vein is patent. There is significant wall thickening and edema identified within the adjacent duodenum. No organized. Fluid collection is identified. Adrenal glands: Unremarkable. Kidneys: The contrast-enhanced kidneys are normal in size and without hydronephrosis. The kidneys enhance symmetrically. Abdominal vasculature: The abdominal aorta is normal in course and caliber noting mild to moderate atherosclerotic calcification. Bowel: As noted above, there is significant wall thickening and edema identified within the proximal duodenum adjacent to the pancreatic head. No bowel obstruction is seen. The appendix is well-visualized and normal. Peritoneum: There is no intraperitoneal free air or abdominal ascites. Foci of induration within the ventral abdominal pannus are likely related to subcutaneous injections. Lymphadenopathy: None. Pelvic viscera: The bladder, uterus, and adnexa are normal as visualized. Small ovarian follicles are incidentally noted. Skeletal structures: No lytic or blastic lesions are seen. IMPRESSION: 1. There is an inflammatory process identified surrounding the pancreatic head and involving the proximal duodenum. This likely represents acute pancreatitis with associated inflammation of the duodenum. Primary duodenitis is a di fferential consideration. Correlation with serum amylase/lipase levels is recommended. 2. The pancreas enhances homogeneously. No peripancreatic fluid collection is identified. 3. Hepatomegaly and severe hepatic steatosis. 4. Additional findings as above. Electronically signed by: Valerio Copeland M.D. 10/10/2018 2:[address] SCAN OF THE BRAIN WITHOUT IV CONTRAST CLINICAL HISTORY: Nausea and vomiting. Right parietal swelling. COMPARISON STUDY: CT of the brain dated 07/17/2018. TECHNIQUE: Unenhanced axial CT scan of the brain is performed from the vertex to the skull base. A dose lowering technique was utilized adhering to the principles of ALARA. FINDINGS: Brain parenchyma: The brain parenchyma is normal in appearance. There is no hemorrhage, mass effect, or evidence of acute territorial ischemia by CT criteria. Rose-white matter differentiation is preserved. No extra-axial fluid collection is seen. Ventricles, sulci, cisterns: Normal in configuration. Intracranial vasculature: The visualized intracranial vasculature at the skull base is normal in appearance. Calvarium: There is no depressed calvarial fracture. Soft tissues: There is minimal high right parietal scalp edema (axial image #27). Sinuses and mastoids: There is complete opacification of the right maxillary antrum, new from 07/17/2018. Material protrudes through the ostiomeatal complex, and there is also complete opacification of several right ethmoid sinuses. Trace mucosal thickening is seen in the sphenoid sinuses and right frontal sinus. The mastoid air cells are well pneumatized. Orbits: The bony orbits are grossly intact. There is mild proptosis. IMPRESSION: 1. No acute intracranial abnormality. 2. There is paranasal sinus disease as above, new from 07/17/2018. 3. Minimal high right parietal scalp edema is noted. Electronically signed by: Valerio Copeland M.D. 10/10/2018 2:46 PM ECG Data Attestation: I personally reviewed and interpreted this ECG as follows: Indication: abdominal pain Rate (beats per minute): 104 Rhythm: sinus tachycardia Findings: + other (left axis deviation); no PVC, no ST depression, no ST elevation and no acute ischemic change Blood Pressure Blood Pressure Findings: Elevated blood pressure Blood Pressure Disposition: Referred to patients primary care provider MELVIN Narrative Patient here with nausea vomiting abdominal pain and initially ill-appearing, however improved with IV fluids and medication here. While undergoing evaluation patient found to have pancreatitis, likely secondary to alcohol use which she admitted on subsequent questioning during a repeat evaluation. Patient did have an abnormal troponin, however looking back through the EMR she chronically has elevated troponins. I did review prior cardiac consultation in light of this and they do not feel it is related to coronary artery disease. Patient's other LFTs well-appearing, and barely above the top normal range. I do not suspect choledocholithiasis, cholecystitis, ascending cholangitis. CT did not otherwise reveal any additional acute pathology. Patient was he modynamically stable throughout. Patient was given 2 L of IV fluids while in the emergency room. Case was discussed with hospitalist for additional evaluation and management. Impression & Plan Pancreatitis, Abdominal pain, Elevated troponin, Vomiting, Alcohol abuse, Duodenitis Discharge Plan Visit Data *Final* Discharge Date/Time: 10/10/18 17:25 Chief Complaint: Abdominal Pain Stated Complaint: STOMACH PAIN - VOMITING - HEAD SWOLLEN - HAND NUMN ED Provider: Gloria Johnson Discharge Problem: Pancreatitis, Abdominal pain, Elevated troponin, Vomiting, Alcohol abuse, Duodenitis Patient Disposition: Admitted As Inpatient Condition: Fair Discharge Instructions Interventions: ED Discharge Assessment Last Done: 10/10/18 17:25 The abibe's documentation has been prepared under my direction and personally reviewed by me in its entirety. I confirm that the note above accurately reflects all work, treatment, procedures, and medical decision making performed by me.
[2018-10-10] MEDS ORDERED: INSULIN ASPART 100 UNITS/ML 3 ML PEN SC SCH (21:00)
[2018-10-10] MEDS: ALBUTEROL 0.083% NEBU SOLN 3 ML VIAL INH PRN (23:19)
[2018-10-11] MEDS: INSULIN ASPART 100 UNITS/ML 3 ML PEN SC SCH ×6 (00:19→21:13)
[2018-10-11] MEDS: MoRPHine SULFATE 2 MG/ML CARP IV PRN ×5 (00:48→19:36)
[2018-10-11] MEDS: GABAPENTIN 600 MG TAB PO SCH ×3 (06:12→21:40)
[2018-10-11] MEDS: SODIUM CHLORIDE 0.9% 1000ML 1,000 ML IV SCH ×3 (06:14→21:40)
[2018-10-11 07:31] LABS: Albumin Globulin Ratio 0.7 (0.9-2); Albumin Level 2.6 gm/dl (3.4-5.0); BUN Creatinine Ratio 14.3 (10-20); Bilirubin,Total 0.8 mg/dl (0.2-1); Creatinine Clr Calc Pharmacy 166.8 ml/min; Est GFR (African American) 127.2; Est GFR (Non-African American) 109.7; Globulin 3.6 gm/dl (2.5-4.0); Potassium 3.4 mmol/L (3.5-5.1); Total Protein 6.2 gm/dl (6.4-8.2)
[2018-10-11] MEDS: PERPHENAZINE 2 MG TABLET PO SCH ×2 (08:05→21:14)
[2018-10-11] MEDS: PANTOprazole 40 MG TAB PO SCH (08:05)
[2018-10-11] MEDS: APIXABAN 5 MG TABLET PO SCH (08:05)
[2018-10-11] MEDS: HydrALAZINE TAB 50 MG TAB PO SCH ×2 (08:05→21:13)
[2018-10-11] MEDS: VALACYCLOVIR HCL 500 MG TABLET PO SCH (08:05)
[2018-10-11] MEDS: VALSARTAN 80 MG TAB PO SCH (08:05)
[2018-10-11] MEDS: dilTIAZem HCL 300 MG CAPCR PO SCH (08:05)
[2018-10-11] MEDS: TIOTROPIUM BROMIDE 5 PUFF/90 MCG INH INH SCH (08:06)
[2018-10-11 08:39] LABS: Appearance Urine Clear (Clear); Bacteria Urine Automated Negative (Negative); Bilirubin Urine Negative (Negative); Blood Urine Negative (Negative); Color Urine Orange; Epithelial Cell Urine Auto >30 /lpf (0-5); Glucose Urine UA Trace (Negative); Ketones Urine Trace (Negative); Leukocyte Esterase Urine Negative (Negative); Nitrite Urine Positive (Negative); Protein Urine 1+ (Negative); RBC Urine Automated 0-4 /hpf (0-4); Specific Gravity Urine 1.024 (1.000-1.030); Urobilinogen Urine Negative (Negative); pH Urine 6.5 (4.5-7.5)
[2018-10-11 08:41] LABS: Amphetamines+Metham, Urine Neg (Neg); Barbiturates, Urine Neg (Neg); Benzodiazepine, Urine Neg (Neg); Cocaine, Urine Neg (Neg); MDMA (Ecstacy), Urine Neg (Neg); Methadone, Urine Neg (Neg); Opiate, Urine Pos (Neg); Phencyclidine, Urine Neg (Neg)
[2018-10-11] MEDS ORDERED: LABETALOL HCL IV 5 MG/ML 20ML IV PRN (09:02)
[2018-10-11] MEDS: ALBUTEROL 0.083% NEBU SOLN 3 ML VIAL INH PRN ×2 (09:11→17:46)
--- NOTE | 2018-10-11 11:39 | XRay Report ---
XR chest 1V portable CLINICAL HISTORY: wheezing cough COMPARISON STUDY: 10/01/2018 FINDINGS: The bones soft tissues and hemidiaphragms are normal. The cardiomediastinal silhouette is n ormal. The lungs are clear. The pulmonary vasculature is normal. IMPRESSION: Negative chest. The above report was generated using voice recognition software. It may contain grammatical, syntax or spelling errors. Electronically signed by: Bunny Beck M.D. 10/11/2018 11:38 AM
[2018-10-11] MEDS: predniSONE 20 MG TAB PO SCH (12:59)
--- NOTE | 2018-10-11 13:22 | Gastrointestinal Consultation ---
Date of Consultation October 11, 2018 Assessment & Plan (1) Acute pancreatitis: Likely Alcohol related. Prior sonogram showed no gallstones. Normal BUN, she feels better already and hungry. Abdominal exam is normal. Recommend: Advance diet as tolerated. Pain control as needed. Alcohol cessation. Obtain an MRCP. Recall GI if needed. (2) Fatty liver: (3) Abdominal pain: History of Present Illness Attending Physician: Anastasiya Waldrop MD 53 years old female patient with heavy alcohol use, COPD, Obesity, A-Fib on Eliquis, history of TIA, hypertension, DM, schizophrenia, cocaine abuse, admitted with epigastric abdominal pain and found to have mild acute pancreatitis. She drinks alcohol every day. Last night had nausea, vomiting and abdominal pain hence came to the hospital. Denies any fever, chills, diarrhea or rectal bleeding. No Hx of pancreatitis in the past. Allergies Allergy/AdvReac Type Severity Reaction Status Date / Time haloperidol Allergy Severe TONGUE Verified 10/10/18 13:23 SWELLING insulin lispro Allergy Intermediate HIVES Verified 10/10/18 13:23 phenol Allergy Intermediate HIVES Verified 10/10/18 13:23 citalopram Allergy Mild ITCHING Verified 10/10/18 13:23 sulfamethoxazole Allergy Mild RASH Verified 10/10/18 13:23 trimethoprim Allergy Mild RASH Verified 10/10/18 13:23 Bactrim Allergy Unknown RASH Verified 12/01/17 16:09 Penicillins Allergy Unknown UNKNOWN Verified 10/10/18 13:23 topiramate AdvReac Severe SEIZURE Verified 10/10/18 13:23 LIKE ACTIVITY morphine AdvReac Mild HEADACHE Verified 10/10/18 13:23 oxycodone AdvReac Mild ITCH Verified 10/10/18 13:23 Margarine Allergy Severe RASH Uncoded 10/10/18 13:23 Home Medications Home Medications Medication Instructions Recorded Confirmed Type Ameliaaglchelsea NietoPen U-100 Insulin 60 unit SUBCUT HS 07/05/18 10/10/18 History Spiriva Respimat 2 puff INHALATION QAM 07/05/18 10/10/18 History albuterol sulfate 2.5 mg INHALATION Q4 PRN 07/05/18 10/10/18 History diltiazem HCl 300 mg PO QAM 07/05/18 10/10/18 History hydralazine 50 mg PO BID 07/05/18 10/10/18 History omeprazole 20 mg PO QAM 07/05/18 10/10/18 History trazodone 200 mg PO HS PRN 07/05/18 10/10/18 History valacyclovir 500 mg PO QAM 07/05/18 10/10/18 History valsartan 320 mg PO QAM 07/05/18 10/10/18 History Eliquis 5 mg PO QAM 09/29/18 10/10/18 History cyclobenzaprine 10 mg PO BID PRN 09/29/18 10/10/18 History lactulose [Constulose] 30 ml PO DAILY PRN 09/29/18 10/10/18 History mometasone-formoterol [Dulera] 2 puff INHALATION BID 09/29/18 10/10/18 History ranitidine HCl 300 mg PO HS 09/29/18 10/10/18 History gabapentin 1 tab PO TID 10/10/18 10/10/18 History hydrochlorothiazide 1 tab PO DAILY 10/10/18 10/10/18 History metformin 2 tab PO DAILY 10/10/18 10/10/18 History perphenazine 18 mg PO BID 10/10/18 10/10/18 History Patient History Medical History EtOH dependence (Acute) DM type 2 (diabetes mellitus, type 2) Alcohol abuse Suicidal ideations Bronchitis (Acute) Prolonged QT interval Non-sustained ventricular tachycardia (Acute) Tobacco use disorder (Chronic) History of opioid abuse (Chronic) Cocaine abuse (Chronic) Hx of suicide attempt (Resolved) Diabetes (Chronic) COPD (chronic obstructive pulmonary disease) (Chronic) Fatty liver (Chronic) Elevated troponin (Chronic) Obesity (Chronic) HTN (hypertension) (Chronic) Sleep apnea (Chronic) Neuropathy (Chronic) Sciatic nerve disease (Chronic) Atrial fibrillation (Chronic) Epistaxis, recurrent (Chronic) Chronic generalized pain disorder (Chronic) Schizoaffective disorder, bipolar type (Chronic) COPD with exacerbation (Acute) Alcohol induced acute pancreatitis (Acute) ETOH abuse Rectal bleeding (Acute) Surgical History H/O ovarian cystectomy (Resolved) H/O foot surgery (Resolved) Family History Other Heart disease Social History Preferred Language: Sinhala Communication Ability: Effective Insolvency Practitioner Required: No Beliefs That Will Affect Care: None marital status: single Current Living Situation: Family Current Living Situation Comment: lives with brothers? current occupational status: unemployed and disabled Other Information That Helps Us Care for You: No Feels Safe at Home: Yes Safety Concerns: Feels Safe At This Time Smoking Status: Current every day smoker Hx Alcohol Use: Yes Hx Substance Use: Yes Review of Systems Constitutional: no fever, no chills, no fatigue and no weight loss Eyes: no eye pain and no worsening vision Ear, Nose, Mouth, Throat: no tinnitus, no dizziness, no nasal discharge and no epistaxis Respiratory: no cough, no dyspnea, no dyspnea on exertion and no wheezing Cardiovascular: no chest pain, no orthopnea, no palpitations and no edema Gastrointestinal: as per Subjective / HPI Genitourinary (Female): no dysuria, no urinary frequency, no urinary incontinence and no hematuria Musculoskeletal: no stiffness and no myalgia Neurologic: no localized weakness, no paralysis, no tremor(s) and no headache(s) Endocrine: no polydipsia and no polyuria Hematologic / Lymphatic: no easy bleeding and no night sweats Physical Exam Vital Signs (Past 24 Hours): Last Vital Signs Temp 37.1 C 10/11/18 11:57 Pulse 82 10/11/18 11:57 Resp 20 10/11/18 11:57 BP 161/73 H 10/11/18 11:57 Pulse Ox 96 10/11/18 11:57 Constitutional: + well hydrated, cooperative and comfortable Eyes: PERRL, conjunctivae normal, anicteric sclerae ENMT: external ear and nose normal, oropharynx normal Neck: normal visual inspection and trachea midline Respiratory: normal respiratory effort, lungs clear to auscultation Auscultation: no wheezes Cardiovascular: RRR, no murmur, no edema Gastrointestinal (Abdomen): Percussion/Palpation: abdomen soft nontender Musculoskeletal: no cyanosis or clubbing, extremities motor strength 5/5 Skin: no rashes, warm and dry Neurologic: awake; no focal motor deficits Motor/Sensory: no tremor Results & Data Laboratory Results Laboratory Results - last 24 hr 04/13/19 04/13/19 04/13/19 13:10 13:10 14:08 Sodium 135 L Potassium 3.5 Chloride 97 L Carbon Dioxide 27 Anion Gap 11.0 BUN 10 Creatinine 0.95 Est Cr Clr Drug Dosing 86.8 Est GFR ( Amer) 78.7 Est GFR (Non-Af Amer) 67.9 BUN/Creatinine Ratio 10.1 Glucose 212 H POC Glucose Calcium 9.2 Magnesium 1.4 L Total Bilirubin 1.2 H AST 38 H ALT 79 H Alkaline Phosphatase 116 Troponin I 0.143 H* Total Protein 8.0 Albumin 3.6 Globulin 4.4 H Albumin/Globulin Ratio 0.8 L Lipase 4217 H Folate TSH 0.540 HCG, Qual Negative Urine Color Urine Appearance Urine pH Ur Specific [place] Urine Protein Urine Glucose (UA) Urine Ketones Urine Blood Urine Nitrite Urine Bilirubin Urine Urobilinogen Ur Leukocyte Esterase Urine WBC (Auto) Urine RBC (Auto) U Hyaline Cast (Auto) U Epithel Cells (Auto) Urine Bacteria (Auto) Urine Opiates Screen Ur Methadone, Qual Urine Barbiturates Ur Phencyclidine (PCP) U Amphetamin/Meth Scrn MDMA (Ecstasy) Screen U Benzodiazepines Scrn Ur Cocaine Metabolite U Marijuana (THC) Screen Ethyl Alcohol mg/dL < 3.0 10/10/18 10/10/18 10/10/18 19:33 19:39 19:39 Sodium Potassium Chloride Carbon Dioxide Anion Gap BUN Creatinine Est Cr Clr Drug Dosing Est GFR ( Amer) Est GFR (Non-Af Amer) BUN/Creatinine Ratio Glucose POC Glucose 158 H Calcium Magnesium Total Bilirubin AST ALT Alkaline Phosphatase Troponin I 0.137 H* Total Protein Albumin Globulin Albumin/Globulin Ratio Lipase Folate 12.17 TSH HCG, Qual Urine Color Urine Appearance Urine pH Ur Specific [place] Urine Protein Urine Glucose (UA) Urine Ketones Urine Blood Urine Nitrite Urine Bilirubin Urine Urobilinogen Ur Leukocyte Esterase Urine WBC (Auto) Urine RBC (Auto) U Hyaline Cast (Auto) U Epithel Cells (Auto) Urine Bacteria (Auto) Urine Opiates Screen Ur Methadone, Qual Urine Barbiturates Ur Phencyclidine (PCP) U Amphetamin/Meth Scrn MDMA (Ecstasy) Screen U Benzodiazepines Scrn Ur Cocaine Metabolite U Marijuana (THC) Screen Ethyl Alcohol mg/dL 10/11/18 10/11/18 10/11/18 00:16 06:10 06:39 Sodium 138 Potassium 3.4 L Chloride 105 Carbon Dioxide 28 Anion Gap 5.0 BUN 7 Creatinine 0.50 L D Est Cr Clr Drug Dosing 166.8 Est GFR ( Amer) 127.2 Est GFR (Non-Af Amer) 109.7 BUN/Creatinine Ratio 14.3 Glucose 142 H POC Glucose 174 H 154 H Calcium 8.0 L Magnesium Total Bilirubin 0.8 AST 14 L ALT 47 Alkaline Phosphatase 85 Troponin I Total Protein 6.2 L D Albumin 2.6 L Globulin 3.6 Albumin/Globulin Ratio 0.7 L Lipase 3782 H Folate TSH HCG, Qual Urine Color Urine Appearance Urine pH Ur Specific [place] Urine Protein Urine Glucose (UA) Urine Ketones Urine Blood Urine Nitrite Urine Bilirubin Urine Urobilinogen Ur Leukocyte Esterase Urine WBC (Auto) Urine RBC (Auto) U Hyaline Cast (Auto) U Epithel Cells (Auto) Urine Bacteria (Auto) Urine Opiates Screen Ur Methadone, Qual Urine Barbiturates Ur Phencyclidine (PCP) U Amphetamin/Meth Scrn MDMA (Ecstasy) Screen U Benzodiazepines Scrn Ur Cocaine Metabolite U Marijuana (THC) Screen Ethyl Alcohol mg/dL 10/11/18 10/11/18 10/11/18 07:25 07:25 07:44 Sodium Potassium Chloride Carbon Dioxide Anion Gap BUN Creatinine Est Cr Clr Drug Dosing Est GFR ( Amer) Est GFR (Non-Af Amer) BUN/Creatinine Ratio Glucose POC Glucose 145 H Calcium Magnesium Total Bilirubin AST ALT Alkaline Phosphatase Troponin I Total Protein Albumin Globulin Albumin/Globulin Ratio Lipase Folate TSH HCG, Qual Urine Color [place] Urine Appearance Clear Urine pH 6.5 Ur Specific [place] 1.024 Urine Protein 1+ H Urine Glucose (UA) Trace H Urine Ketones Trace H Urine Blood Negative Urine Nitrite Positive H Urine Bilirubin Negative Urine Urobilinogen Negative Ur Leukocyte Esterase Negative Urine WBC (Auto) 1-5 Urine RBC (Auto) 0-4 U Hyaline Cast (Auto) 1-5 U Epithel Cells (Auto) >30 H Urine Bacteria (Auto) Negative Urine Opiates Screen Pos H Ur Methadone, Qual Neg Urine Barbiturates Neg Ur Phencyclidine (PCP) Neg U Amphetamin/Meth Scrn Neg MDMA (Ecstasy) Screen Neg U Benzodiazepines Scrn Neg Ur Cocaine Metabolite Neg U Marijuana (THC) Screen Neg Ethyl Alcohol mg/dL 10/11/18 11:48 Sodium Potassium Chloride Carbon Dioxide Anion Gap BUN Creatinine Est Cr Clr Drug Dosing Est GFR ( Amer) Est GFR (Non-Af Amer) BUN/Creatinine Ratio Glucose POC Glucose 145 H Calcium Magnesium Total Bilirubin AST ALT Alkaline Phosphatase Troponin I Total Protein Albumin Globulin Albumin/Globulin Ratio Lipase Folate TSH HCG, Qual Urine Color Urine Appearance Urine pH Ur Specific [place] Urine Protein Urine Glucose (UA) Urine Ketones Urine Blood Urine Nitrite Urine Bilirubin Urine Urobilinogen Ur Leukocyte Esterase Urine WBC (Auto) Urine RBC (Auto) U Hyaline Cast (Auto) U Epithel Cells (Auto) Urine Bacteria (Auto) Urine Opiates Screen Ur Methadone, Qual Urine Barbiturates Ur Phencyclidine (PCP) U Amphetamin/Meth Scrn MDMA (Ecstasy) Screen U Benzodiazepines Scrn Ur Cocaine Metabolite U Marijuana (THC) Screen Ethyl Alcohol mg/dL (1) Abdominal pain Abdominal location: unspecified location Qualified Code(s): R10.9 - Unspecified abdominal pain
--- NOTE | 2018-10-11 15:05 | Hospitalist Progress Note ---
Date of Service October 11, 2018 Assessment & Plan (1) Acute pancreatitis: Present on admission with abdominal pain associated with nausea and vomiting started last night after drinking Alcohol CT abd/pelvis showed inflammatory process identified surrounding the pancreatic head and involving the proximal duodenum. Lipase on admission above 4k, slightly decreased to 3.7K Continue on IVF and pain control Keep NPO for now GI on board recommended to get MRCP If MRCP negative, OK to start on diet Follow up lipase (2) Alcohol abuse: Drink alcohol daily on gabapentin alcohol withdraw protocol Continue thiamine and folic acid Monitor for signs of alcohol withdrawn Counseling on alcohol cessation (3) Elevated troponin: Chronic elevated troponin No ischemic changes on EKG Will follow troponin level Last ECHO on 12/15 showed no wall motion abnormality with EF 55-60 % (4) DM type 2 (diabetes mellitus, type 2): Elevated glucose Last Hba1c 7.6 Will hold on Lantus since pt NPO Continue insulin sliding scale BS stable HBa1c pending Monitor BS Scalp swelling Possible related to fall? CT head showed Minimal high right parietal scalp edema Continue monitor HTN BP elevated has not been taking the valsartan Continue Vasalrtan HCTZ on hold Continue labetalol prn Monitor BP Cocaine abuse UDS negative for cocaine Counseling on cocaine cessation PAF Rate controlled on Diltiazem Continue Eliquis High risk of falls fue to alcohol abuse Tobacco abuse Counseling on smoking cessation DVT px on Eliquis CODE status Full code Subjective Pt was seen and examined Lying in bed with no distress Pt said that she continues to have pain She said that she has not been eating for about 3 days Denies any chest pain, palpitation, dizziness and SOB Physical Exam Vital Signs (Past 24 Hours): Last Vital Signs Temp 37.1 C 10/11/18 11:57 Pulse 82 10/11/18 11:57 Resp 20 10/11/18 11:57 BP 161/73 H 10/11/18 11:57 Pulse Ox 96 10/11/18 11:57 Physical Exam: General Appearance:Morbidly Obese, no apparent distress Head: normocephalic Eyes: normal inspection, EOMI Neck: supple, Trachea midline Respiratory/Chest: No wheezing, No rales Cardiovascular: S1, S2, No murmur Abdomen: +tenderness, Bowel sounds present Extremities/Musculoskelatal:normal inspection, Trace pedal edema Neurologic/Psych:AAOX3, +mild tremor Skin: normal color, warm
[2018-10-11] MEDS ORDERED: POTASSIUM CHLORIDE 10 MEQ TABCR PO STA (20:25)
[2018-10-12] MEDS: MoRPHine SULFATE 2 MG/ML CARP IV PRN ×5 (00:14→20:36)
[2018-10-12] MEDS ORDERED: LORazepam 0.5 MG TAB PO STA ×2 (02:35→23:19)
[2018-10-12] MEDS: ALBUTEROL 0.083% NEBU SOLN 3 ML VIAL INH PRN ×2 (03:13→23:43)
[2018-10-12] MEDS: SODIUM CHLORIDE 0.9% 1000ML 1,000 ML IV SCH ×3 (05:17→20:51)
[2018-10-12] MEDS: GABAPENTIN 600 MG TAB PO SCH ×3 (05:17→23:27)
[2018-10-12 06:26] LABS: BUN Creatinine Ratio 7.7 (10-20); Calcium 8.5 mg/dl (8.5-10.1); Creatinine Clr Calc Pharmacy 193.9 ml/min; Est GFR (African American) 133.6; Est GFR (Non-African American) 115.3; Potassium 3.4 mmol/L (3.5-5.1)
[2018-10-12 07:37] LABS: Estimated Average Glucose 157 mg/dl; Hemoglobin A1C 7.1 % (4.5-5.6)
[2018-10-12] MEDS ORDERED: POTASSIUM CHLORIDE 20 MEQ TABCR PO STA (08:07)
[2018-10-12] MEDS: INSULIN ASPART 100 UNITS/ML 3 ML PEN SC SCH ×4 (08:43→20:44)
--- NOTE | 2018-10-12 08:43 | Gastroenterology Progress Note ---
Date of Service October 12, 2018 Assessment & Plan (1) Acute pancreatitis: Likely Alcohol related. Gallstone pancreatitis is also considered but less likely because US in Jun and CT on arrival during this admission w/o gallbladder abnormalities. Mild LFT elevation which resolved to normal yesterday was likely due to ETOH hepatitis. Recommend: Clear liquids po. Pain control as needed. Alcohol cessation. Will review results of MRCP when available. (2) Fatty liver: (3) Abdominal pain: Subjective Ms. Rebeca Judge is a 53 yr old female patient with heavy alcohol use, COPD, Obesity, A-Fib on Eliquis, history of TIA, hypertension, DM, schizophrenia, cocaine abuse, admitted with epigastric abdominal pain on 10/09 and found to have mild acute pancreatitis. Because mild elevation in LFTs on arrival (T Bili 1.2->0.8; AST 54->14; ALT 86- >47, Alk Phos 124->85) MRCP is scheduled for 1PM today, to rule out bile duct obstruction. CT on arrival with inflammation around the pancreatic head vs. duodenitis; also with severe hepatic steatosis. GB US in June was normal. Today, pt is able to ambulate w/o assistance, reports pain is improved though still significant rating it an 8 of 10 at the end of the dosing interval, and tells me that it was a 10 of 10 on arrival. Pain is moving more to the RUQ. It was more mid line on arrival. Labs with lipase improvement: 4k->3K and LFTs resolved to normal yesterday. Has been able to tolerate clear liquids po but is current NPO for MRI. Attg Add: I interviewed and examined pt reviewed chart and labs. Pt hungry, asking for more food. Passing flatus. Requiring morphine. Appears co mfortable, eating wtih good appetite. Abd exam benign. Cont current care. Gastrointestinal: as per Subjective / HPI Physical Exam Vital Signs (Past 24 Hours): Last Vital Signs Temp 37.0 C 10/12/18 07:45 Pulse 75 10/12/18 07:45 Resp 16 10/12/18 07:45 BP 130/91 10/12/18 07:45 Pulse Ox 91 10/12/18 07:45 Constitutional: WD/WN, vitals as above + morbidly obese Eyes: PERRL, conjunctivae normal, anicteric sclerae ENMT: external ear and nose normal, oropharynx normal Neck: trachea midline, no thyromegaly Respiratory: normal respiratory effort; no cough and not tachypneic Auscultation: + wheezes (scattered wheezes throughout); no crackles, no rales and no rhonchi Cardiovascular: RRR, no murmur, no edema Vessels: no JVD Gastrointestinal (Abdomen): Inspection/Auscultation: normal bowel sounds Percussion/Palpation: + abdomen tender (RUQ) and abdomen soft obese Skin: no rashes, warm and dry normal turgor Neurologic: PERRL, EOMI, accommodation nl, no face palsy, no dysarthria Psychiatric: A+Ox3, euthymic affect Lymphatic: no cervical or axillary lymphadenopathy Results & Data Laboratory Results Lipase [address] abd/pelvis with IV contrast 10/10/18: 1. There is an inflammatory process identified surrounding the pancreatic head and involving the proximal duodenum. This likely represents acute pancreatitis with associated inflammation of the duodenum. Primary duodenitis is a differential consideration. Correlation with serum amylase/lipase levels is recommended. 2. The pancreas enhances homogeneously. No peripancreatic fluid collection is identified. 3. Hepatomegaly and severe hepatic steatosis. 4. Additional findings as above. (1) Abdominal pain Abdominal location: unspecified location Qualified Code(s): R10.9 - Unspecified abdominal pain
[2018-10-12] MEDS: PANTOprazole 40 MG TAB PO SCH (08:44)
[2018-10-12] MEDS: VALSARTAN 80 MG TAB PO SCH (08:45)
[2018-10-12] MEDS: VALACYCLOVIR HCL 500 MG TABLET PO SCH (08:45)
[2018-10-12] MEDS: HydrALAZINE TAB 50 MG TAB PO SCH ×2 (08:45→20:36)
[2018-10-12] MEDS: predniSONE 20 MG TAB PO SCH (08:45)
[2018-10-12] MEDS: dilTIAZem HCL 300 MG CAPCR PO SCH (08:46)
[2018-10-12] MEDS: APIXABAN 5 MG TABLET PO SCH (08:46)
[2018-10-12] MEDS: TIOTROPIUM BROMIDE 5 PUFF/90 MCG INH INH SCH (08:46)
[2018-10-12] MEDS: FOLIC ACID 1 MG TAB PO SCH (08:46)
[2018-10-12] MEDS: PERPHENAZINE 2 MG TABLET PO SCH ×2 (08:50→20:38)
[2018-10-12] MEDS ORDERED: LORazepam 1 MG/2 ML VIAL IV PRN (09:03)
[2018-10-12] MEDS: THIAMINE HCL 100 MG TAB PO SCH (09:19)
--- NOTE | 2018-10-12 14:16 | Psychiatric Progress Note ---
Date of Service October 12, 2018 Impression / Recommendations Impression 53 yo woman with a know primary thought disorder, admitted with pancreatitis. She has apparently made suicidal statements, but is uncooperative with my interview today, denying SI or hallucinations. Unfortunately she is completely noncompliant with OP psychiatric care, and hasn't had meds since last summer. She continues to drink and abuse cocaine which only serve to worsen her mood and thought disorder. There is little help we have for this as we cannot mandate her into substance use treatment and she has no interest in changing. It feels like the hospital has become her default psychiatric provider, as we restart her trilafon, but she doesn't return to her OP providers. At this point I have little to offer as she is uncooperative and denying SI or psychosis. Clearly, I recommend that she consistently attend OP psychiatric treatment and remain on meds, but she is declining that at this point. She meets no criteria for inpatient mental health treatment. (1) Alcohol abuse: 10/12 - Agree with [facility] - Recommend rehab which the patient is refusing (2) Schizoaffective disorder, bipolar type: 10/12 - Has been restarted on Trilafon 18 mg BID, but unless her PCP is willing to prescribe, she will have no means to refill and she has many barriers she puts in place to receiving psych care - Recommend that she return to her OP provider Risk Factors Assessment Male: No : No Health Problems: Yes Mental Health Diagnoses: Yes Substance Use Disorders: Yes Previous Psychiatric Hospitalization: Yes Protective Factors Assessment Yazdanism Beliefs: Yes : No Responsible for Young Children: No Employed: No Interval History Identifying Information 53 yo woman with multiple chronic medical conditions, admitted medically with pancreatitis in the setting of alcohol abuse. We are consulted to evaluate suicidal statements. Chief Complaint Delines any complaints Subjective Subjective Patient seen briefly at the request of the attending to evaluate suicidal statements. The patient is not cooperative with the interview, and pretends to be sleeping through some questions. Ultimately what she does say is that she is not suicidal, not hallucinating, cannot see a psychiatric provider because they are all too far away, and has no realistic plans to give up substances. She has no psych meds at home and external med history confirms no trilafon rx since December 2017. I ask her what she is willing to do about her mental health and she says "nothing". I ask her what she thinks I can do for her, she says "nothing". She denies aud/vis hallucinations, and the only symptom she gives me is "dizziness". Physical Exam Psychiatric Orientation: + uncooperative Apperance: appropriately dressed Eye Contact: + poor eye contact Motor Behavior: no abnormal motor movements one or two word answers. No spontaneous interaction Affect: + flat affect (pretending to sleep) uncooperative Thought Process: goal directed thought process Thought Content: reality based without delusions Suicidal Thoughts: denies suicidal thoughts Homicidal Thoughts: denies homicidal thoughts Hallucinations: no auditory hallucinations and no visual hallucinations Insight: + impaired insight Judgement: + impaired judgement Vital Signs (Past 24 Hours) Last Vital Signs Temp 37.1 C 10/12/18 11:30 Pulse 81 10/12/18 11:30 Resp 16 10/12/18 11:30 BP 162/81 H 10/12/18 11:30 Pulse Ox 94 10/12/18 11:30 Results & Data Laboratory Results Laboratory Results - last 24 hr 10/11/18 10/11/18 10/12/18 16:23 20:05 05:42 Sodium 140 Potassium 3.4 L Chloride 106 Carbon Dioxide 28 Anion Gap 5.0 BUN 3 L Creatinine 0.43 L Est Cr Clr Drug Dosing 193.9 Est GFR ( Amer) 133.6 Est GFR (Non-Af Amer) 115.3 BUN/Creatinine Ratio 7.7 L Glucose 133 H POC Glucose 211 H 219 H Estimat Average Glucose Hemoglobin A1c Calcium 8.5 Lipase 3001 H 10/12/18 10/12/18 10/12/18 05:42 07:56 12:57 Sodium Potassium Chloride Carbon Dioxide Anion Gap BUN Creatinine Est Cr Clr Drug Dosing Est GFR ( Amer) Est GFR (Non-Af Amer) BUN/Creatinine Ratio Glucose POC Glucose 144 H 277 H Estimat Average Glucose 157 Hemoglobin A1c 7.1 H Calcium Lipase Current Inpatient Medications Current Inpatient Medications: Current Inpatient Medications Albuterol (Ventolin 0.083% 2.5mg/3ml) 2.5 mg INH Q4 PRN PRN Reason: Shortness Of Breath Or Wheezing Stop: 11/09/18 19:17 Last Admin: 10/12/18 03:13 Dose: 2.5 mg Documented by: [facility]ixaban ([facility]liquis) [facility] [place] [place] Stop: 11/10/18 08:59 Last Admin: 10/12/18 08:46 Dose: 5 mg Documented by: Dextrose (Dextrose 50%) 25 - 50 ml IV UD PRN; Protocol PRN Reason: Hypoglycemia Protocol Stop: 11/09/18 19:17 Diltiazem HCl (Cardizem Cd) 300 mg PO QAM [facility] Stop: 11/10/18 08:59 Last Admin: 10/12/18 08:46 Dose: 300 mg Documented by: Folic Acid (Folvite) 1 mg PO QAM [facility] Stop: 11/11/18 08:59 Last Admin: 10/12/18 08:46 Dose: 1 mg Documented by: Gabapentin (Neurontin) 600 mg PO Q12H [facility] Stop: 10/13/18 12:01 Gabapentin (Neurontin) 600 mg PO Q24H [facility] Stop: 10/14/18 12:01 Glucagon (Glucagen) 1 mg SQ UD PRN; Protocol PRN Reason: Hypoglycemia Protocol Stop: 11/09/18 19:17 Glucose (Dex4 Glucose) 4 - 8 tabs PO UD PRN; Protocol PRN Reason: Hypoglycemia Protocol Stop: 11/09/18 19:17 Glucose (Glucose 40%) 15 - 30 gm PO UD PRN; Protocol PRN Reason: Hypoglycemia Protocol Stop: 11/09/18 19:17 Hydralazine HCl (Apresoline) 50 mg PO BID [facility] Stop: 11/09/18 20:59 Last Admin: 10/12/18 08:45 Dose: 50 mg Documented by: Sodium Chloride (Nss 1000ml) 1,000 mls @ 125 mls/hr IV .Q8H [facility] Stop: 11/09/18 19:59 Last Admin: 10/12/18 13:00 Dose: 125 mls/hr Documented by: Lorazepam (Ativan) 1 mg in 2 mls @ 0.5 mls/min IV UD PRN PRN Reason: Anxiety Stop: 11/11/18 09:02 Last Admin: 10/12/18 11:12 Dose: 0.5 mls/min Documented by: Insulin Aspart (Novolog Flexpen) 0 units SC ACHS [facility] Stop: 11/10/18 18:29 Last Admin: 10/12/18 12:58 Dose: 6 units Documented by: Labetalol HCl (Normodyne) 10 mg IV Q6H PRN PRN Reason: SBP above 170 Stop: 11/10/18 09:01 Lactulose (Chronulac) 20 gm PO DAILY PRN PRN Reason: CONSTIPATION Stop: 11/09/18 19:27 Miscellaneous (Carbohydrates For Hypoglycemia) 15 - 30 gm PO UD PRN PRN Reason: Hypoglycemia Treatment Stop: 11/09/18 19:17 Miscellaneous (Order Awaiting Action) 1 ea N/A QS [facility] Stop: 11/10/18 00:00 Last Admin: 10/12/18 08:47 Dose: Not Given Documented by: Morphine Sulfate (Morphine Sulfate) 1 mg IV Q4H PRN PRN Reason: Pain Stop: 10/24/18 19:17 Last Admin: 10/12/18 08:57 Dose: 1 mg Documented by: Ondansetron HCl (Zofran) 4 mg IV Q6H PRN PRN Reason: Nausea Stop: 11/09/18 19:17 Pantoprazole Sodium (Protonix) 40 mg PO [facility] Stop: 11/10/18 08:59 Last Admin: 10/12/18 08:44 Dose: 40 mg Documented by: Perphenazine (Trilafon) 18 mg PO BID [facility] Stop: 11/09/18 20:59 Last Admin: 10/12/18 08:50 Dose: Not Given Documented by: Prednisone (Prednisone) 40 mg PO DAILY [facility] Stop: 11/10/18 11:14 Last Admin: 10/12/18 08:45 Dose: 40 mg Documented by: Ranitidine HCl (Zantac) 300 mg PO HS [facility] Stop: 11/09/18 20:59 Last Admin: 10/11/18 21:14 Dose: 300 mg Documented by: Thiamine HCl (Vitamin B-1) [facility] [place] [place] Stop: 11/11/18 08:59 Last Admin: 10/12/18 09:19 Dose: 100 mg Documented by: Tiotropium Parmele (Spiriva) 1 puffs INH [facility] Stop: 11/10/18 08:59 Last Admin: 10/12/18 08:46 Dose: 1 puffs Documented by: Valacyclovir HCl (Valtrex) 500 [facility] [place] [place] Stop: 11/10/18 08:59 Last Admin: 10/12/18 08:45 Dose: 500 mg Documented by: Valsartan (Diovan) 320 mg PO QAM [facility] Stop: 11/10/18 08:59 Last Admin: 10/12/18 08:45 Dose: 320 mg Documented by: CPT Code CPT Code 49909
--- NOTE | 2018-10-12 20:33 | Hospitalist Progress Note ---
Date of Service October 12, 2018 Assessment & Plan (1) Acute pancreatitis: Present on admission with abdominal pain associated with nausea and vomiting started last night after drinking Alcohol CT abd/pelvis showed inflammatory process identified surrounding the pancreatic head and involving the proximal duodenum. Lipase on admission above 4k, slightly decreased to 3K Continue on IVF and pain control on clear liquid diet GI on board Unable to tolerate MRCP today Follow up lipase (2) Alcohol abuse: Drink alcohol daily on gabapentin alcohol withdraw protocol Continue thiamine and folic acid Monitor for signs of alcohol withdrawn Counseling on alcohol cessation (3) Elevated troponin: Chronic elevated troponin No ischemic changes on EKG Troponin trending down Last ECHO on 12/15 showed no wall motion abnormality with EF 55-60 % (4) DM type 2 (diabetes mellitus, type 2): Elevated glucose Last Hba1c 7.6 Will hold on Lantus since pt NPO Continue insulin sliding scale BS stable HBa1c pending Monitor BS Scalp swelling Possible related to fall? CT head showed Minimal high right parietal scalp edema Continue monitor HTN BP elevated has not been taking the valsartan Continue Vasalrtan HCTZ on hold Continue labetalol prn Monitor BP Cocaine abuse UDS negative for cocaine Counseling on cocaine cessation PAF Rate controlled on Diltiazem Continue Eliquis High risk of falls fue to alcohol abuse Schizoaffective disorder, bipolar type made suicidal comment Psych on board No inpatient psych needed Tobacco abuse Counseling on smoking cessation DVT px on Eliquis CODE status Full code Subjective Pt was seen and examined Lying in bed with no distress Pt said that her pain seem to improve She wants her diet to advance She went for MRCP and was unable to get it done because she got caught in the MRI machine Denies any chest pain, palpitation and fever Physical Exam Vital Signs (Past 24 Hours): Last Vital Signs Temp 36.7 C 10/12/18 19:10 Pulse 90 10/12/18 19:10 Resp 18 10/12/18 19:10 BP 166/84 H 10/12/18 19:10 Pulse Ox 95 10/12/18 19:10 Physical Exam: General Appearance:Morbidly Obese, no apparent distress Head: normocephalic Eyes: normal inspection, EOMI Neck: supple, Trachea midline Respiratory/Chest: + wheezing Cardiovascular: S1, S2, No murmur Abdomen: +tenderness, Bowel sounds present Extremities/Musculoskelatal:normal inspection, Trace pedal edema Neurologic/Psych:AAOX3, +mild tremor Skin: normal color, warm
[2018-10-13] MEDS: MoRPHine SULFATE 2 MG/ML CARP IV PRN ×2 (05:06→10:54)
[2018-10-13] MEDS: SODIUM CHLORIDE 0.9% 1000ML 1,000 ML IV SCH (06:58)
[2018-10-13 07:02] LABS: BUN Creatinine Ratio 6.4 (10-20); Calcium 8.6 mg/dl (8.5-10.1); Creatinine Clr Calc Pharmacy 178.2 ml/min; Est GFR (African American) 129.8; Potassium 3.1 mmol/L (3.5-5.1)
[2018-10-13] MEDS ORDERED: POTASSIUM CHLORIDE 20 MEQ TABCR PO STA (08:18)
[2018-10-13] MEDS: INSULIN ASPART 100 UNITS/ML 3 ML PEN SC SCH ×2 (08:47→13:07)
[2018-10-13] MEDS: TIOTROPIUM BROMIDE 5 PUFF/90 MCG INH INH SCH (08:48)
[2018-10-13] MEDS: VALACYCLOVIR HCL 500 MG TABLET PO SCH (08:50)
[2018-10-13] MEDS: THIAMINE HCL 100 MG TAB PO SCH (08:50)
[2018-10-13] MEDS: FOLIC ACID 1 MG TAB PO SCH (08:50)
[2018-10-13] MEDS: HydrALAZINE TAB 50 MG TAB PO SCH (08:50)
[2018-10-13] MEDS: PERPHENAZINE 2 MG TABLET PO SCH (08:51)
[2018-10-13] MEDS: APIXABAN 5 MG TABLET PO SCH (08:51)
[2018-10-13] MEDS: VALSARTAN 80 MG TAB PO SCH (08:51)
[2018-10-13] MEDS: dilTIAZem HCL 300 MG CAPCR PO SCH (08:51)
[2018-10-13] MEDS: PANTOprazole 40 MG TAB PO SCH (08:52)
[2018-10-13] MEDS: predniSONE 20 MG TAB PO SCH (08:52)
--- NOTE | 2018-10-13 10:12 | Gastroenterology Progress Note ---
Date of Service October 13, 2018 Assessment & Plan (1) Acute pancreatitis: Likely Alcohol related. Gallstone pancreatitis is also considered but less likely because US in Jun and CT on arrival during this admission w/o gallbladder abnormalities. Mild LFT elevation which resolved to normal yesterday was likely due to ETOH hepatitis. Recommend: Regular consistency low fat diet. Alcohol cessation. Pt feels comfortable that she will be able to do this w/o counselling or structured program. Would not pursue further imaging of the gallbladder or pancreas at this time, though would consider if there were a second episode of pancreatitis after alcohol cessation. GI will sign off. Please recall if questions/new or worsening GI issues. Attg add: I interviewed and examined pt, reviewed chart and labs. Pt with resolution of pain, having BM's and dann PO. On exam, she is comfortable with non tender abd. Agree with plan as above - ok for d/c. (2) Fatty liver: (3) Abdominal pain: Subjective Ms. Rebeca Judge is a 53 yr old female patient with heavy alcohol use, COPD, Obesity, A-Fib on Eliquis, history of TIA, hypertension, DM, schizophrenia, cocaine abuse, admitted with epigastric abdominal pain on 10/09 and found to have acute pancreatitis. Also, on arrival, mild LFT elevation (T Bili 1.2, AST 54, ALT 86). Unable to do MRCP due to pt size. Pt tells me she is "much better today." Lipase on arrival 4217, today 614. LFTs normalized 2 days ago. Gastrointestinal: as per Subjective / HPI Physical Exam Vital Signs (Past 24 Hours): Last Vital Signs Temp 37.0 C 10/13/18 07:20 Pulse 67 10/13/18 07:20 Resp 18 10/13/18 07:20 BP 153/77 H 10/13/18 07:20 Pulse Ox 90 10/13/18 07:20 Constitutional: WD/WN, vitals as above + morbidly obese Eyes: PERRL, conjunctivae normal, anicteric sclerae ENMT: external ear and nose normal, oropharynx normal Neck: trachea midline, no thyromegaly Respiratory: normal respiratory effort; no cough and not tachypneic Auscultation: + wheezes (scattered wheezes throughout); no crackles, no rales and no rhonchi Cardiovascular: RRR, no murmur, no edema Vessels: no JVD Gastrointestinal (Abdomen): Inspection/Auscultation: normal bowel sounds Percussion/Palpation: + abdomen tender (minimal RUQ tenderness on deep palpation) and abdomen soft; no guarding Skin: no rashes, warm and dry normal turgor Neurologic: PERRL, EOMI, accommodation nl, no face palsy, no dysarthria Psychiatric: A+Ox3, euthymic affect Lymphatic: no cervical or axillary lymphadenopathy (1) Abdominal pain Abdominal location: unspecified location Qualified Code(s): R10.9 - Unspecified abdominal pain
[2018-10-13] MEDS: ALBUT/IPRATROP 3MG/0.5MG NEB 3 ML VIAL NEB SCH ×2 (11:13→15:23)
[2018-10-13] MEDS: GABAPENTIN 600 MG TAB PO SCH (13:07)
--- NOTE | 2018-10-13 15:34 | Hospitalist Progress Note ---
Date of Service October 13, 2018 Assessment & Plan (1) Acute pancreatitis: Present on admission with abdominal pain associated with nausea and vomiting started last night after drinking Alcohol CT abd/pelvis showed inflammatory process identified surrounding the pancreatic head and involving the proximal duodenum. Lipase on admission above 4k, decreased to 614 today On IVF and pain control Diet advanced to low fat and tolerated well GI on board Was unable to get the MRCP done yesterday Refused to get the MRCP done today, text cancelled Clinically improves Case discussed with GI and ok from GI standpoint to discharge home (2) Alcohol abuse: Drink alcohol daily on gabapentin alcohol withdraw protocol Continue thiamine and folic acid Monitor for signs of alcohol withdrawn Counseling on alcohol cessation Refused inpatient alcohol rehab treatment (3) Elevated troponin: Chronic elevated troponin No ischemic changes on EKG Troponin trending down Last ECHO on 12/15 showed no wall motion abnormality with EF 55-60 % (4) DM type 2 (diabetes mellitus, type 2): Elevated glucose Recent Hba1c 7.1 Continue insulin sliding scale in the hospital On Lantus BS stable Monitor BS Scalp swelling Possible related to fall? CT head showed Minimal high right parietal scalp edema Continue monitor HTN BP elevated has not been taking the valsartan Continue Vasalrtan HCTZ on hold Continue labetalol prn Monitor BP Cocaine abuse UDS negative for cocaine Counseling on cocaine cessation Hypokalemia K 3.1 replaced K Check BMP in 1 week PAF Rate controlled on Diltiazem Continue Eliquis High risk of falls due to alcohol abuse Schizoaffective disorder, bipolar type Denies any suicidal thought or hallucination Psych on board No inpatient psych needed Follow up with outpatient psych Tobacco abuse Counseling on smoking cessation DVT px on Eliquis CODE status Full code Disposition Discharge home today Follow up with your primary care provider Dr. Farah on 10/19 @ 12:45 PM Subjective Pt was seen and examined Lying in bed with no distress Pt said that she feels much better Her diet advanced and tolerated Refused inpatient alcohol rehab Denies any hallucination, palpitation, dizziness and SOB Physical Exam Vital Signs (Past 24 Hours): Last Vital Signs Temp 36.8 C 10/13/18 15:15 Pulse 106 H 10/13/18 15:15 Resp 20 10/13/18 15:15 BP 144/90 H 10/13/18 15:15 Pulse Ox 92 10/13/18 15:15 Physical Exam: General Appearance:Morbidly Obese, no apparent distress Head: normocephalic Eyes: normal inspection, EOMI Neck: supple, Trachea midline Respiratory/Chest: No wheezing Cardiovascular: S1, S2, No murmur Abdomen: +Mild tenderness with deep palpation, +Bowel sounds Extremities/Musculoskelatal:normal inspection, Trace pedal edema Neurologic/Psych:AAOX3, +mild tremor Skin: normal color, warm
[2018-10-14 08:57] LABS: Hydrocodone Urine NEGATIVE NG/ML (CUTOFF=50); Hydromor Urine NEGATIVE NG/ML (CUTOFF=50); Morphine Urine 1650 NG/ML (CUTOFF=50); Norhydrocodone Conf Ur NEGATIVE NG/ML (CUTOFF=50); Noroxycodone Urine NEGATIVE NG/ML (CUTOFF=50); Oxycodone Urine NEGATIVE NG/ML (CUTOFF=50)
[2018-10-14] MEDS ORDERED: GABAPENTIN 600 MG TAB PO SCH (12:00)
--- NOTE | 2018-10-18 20:30 | Discharge Summary ---
Date of Service October 13, 2018 Admission HPI Per Admitting Provider 53 y/o Female with PMH COPD on home O2, PAF on Eliquis, history of TIA, hypertension, DM 2 insulin requiring, mood disorder/paranoid schizophrenia, history ongoing cocaine/alcohol/tobacco abuse, HTN present to the ER for abdominal pain associated with nausea and vomiting. Pt said that she drinks alcohol every day (hard liquor). She said that last night after drinking alcohol, she developed mid abdominal pain and radiated to her back. She said that then she started to vomit.She said that she had multiple episodes of vomiting. Pt said describes the pain as cramping and constant with grade 9/10 in severity. She said that she was awake all night due to te pain. Pt said that she had not eaten since yesterday. Pt said that if she does not drink for a few days, she starts to have tremor. Pt said that she does have SOB. She is on Eliquis and continues to drink alcohol daily. Denies any chest pain, palpitation, dizziness and fever. Admission Exam Per Admitting Provider General Appearance:Morbidly Obese, no apparent distress Head: normocephalic Eyes: normal inspection, EOMI Neck: supple, Trachea midline Respiratory/Chest: No wheezing, No rales Cardiovascular: S1, S2, No murmur Abdomen: +tenderness, Bowel sounds present Extremities/Musculoskelatal:normal inspection, Trace pedal edema Neurologic/Psych:AAOX3, +mild tremor Skin: normal color, warm Principal Diagnosis Acute pancreatitis Alcohol abuse Hypokalemia Elevated troponin Scalp screening Tobacco abuse PAF Discharge Exam General Appearance:Morbidly Obese, no apparent distress Head: normocephalic Eyes: normal inspection, EOMI Neck: supple, Trachea midline Respiratory/Chest: No wheezing Cardiovascular: S1, S2, No murmur Abdomen: +Mild tenderness with deep palpation, +Bowel sounds Extremities/Musculoskelatal:normal inspection, Trace pedal edema Neurologic/Psych:AAOX3, +mild tremor Skin: normal color, warm Discharge Data Allergies Allergy/AdvReac Type Severity Reaction Status Date / Time haloperidol Allergy Severe TONGUE Verified 10/10/18 13:23 SWELLING insulin lispro Allergy Intermediate HIVES Verified 10/10/18 13:23 phenol Allergy Intermediate HIVES Verified 10/10/18 13:23 citalopram Allergy Mild ITCHING Verified 10/10/18 13:23 sulfamethoxazole Allergy Mild RASH Verified 10/10/18 13:23 trimethoprim Allergy Mild RASH Verified 10/10/18 13:23 Bactrim Allergy Unknown RASH Verified 12/01/17 16:09 Penicillins Allergy Unknown UNKNOWN Verified 10/10/18 13:23 topiramate AdvReac Severe SEIZURE Verified 10/10/18 13:23 LIKE ACTIVITY morphine AdvReac Mild HEADACHE Verified 10/10/18 13:23 oxycodone AdvReac Mild ITCH Verified 10/10/18 13:23 Margarine Allergy Severe RASH Uncoded 10/10/18 13:23 Consultations 10/10/18 15:08 ED Decision to Admit Stat 10/11/18 07:00 Consult Gastroenterology Stat 10/12/18 01:40 Consult Psychiatry Routine Ordered Studies 10/10/18 12:42 CT abd pelvis IV con only Stat CT head/brain wo con Stat CT SCAN OF THE ABDOMEN AND PELVIS WITH IV CONTRAST CLINICAL HISTORY: Nausea and vomiting. Generalized abdominal pain. COMPARISON STUDY: Abdominal CT dated 09/08/2018. TECHNIQUE: Following the IV administration of 93 cc of Optiray 320, CT scan of the abdomen and pelvis is performed from the lung bases to the proximal femora. Images are reviewed in the axial, sagittal, and coronal planes. IV contrast was administered without complication. A dose lowering technique was utilized adhering to the principles of ALARA. The examination is degraded by large body habitus, and by streak artifact from the body wall abutting the CT gantry. CT DOSE: 2460.06 mGy.cm FINDINGS: Lung bases: The heart is normal in size and without pericardial effusion. The lung bases are clear. Liver: The contrast-enhanced liver is enlarged, measuring 19.6 cm in length. The liver demonstrates diffusely diminished attenuation consistent with severe hepatic steatosis. Fatty sparing is seen adjacent to gallbladder fossa. There is no intrahepatic biliary ductal dilatation. The hepatic veins and portal veins are patent. Gallbladder: Unremarkable. Spleen: Normal in size and attenuation. Pancreas: The pancreatic head appears enlarged and edematous. There is significant surrounding inflammatory stranding and fluid. The pancreas enhances homogeneously. The pancreatic duct is normal in caliber. The splenic vein is patent. There is significant wall thickening and edema identified within the adjacent duodenum. No organized. Fluid collection is identified. Adrenal glands: Unremarkable. Kidneys: The contrast-enhanced kidneys are normal in size and without hydronephrosis. The kidneys enhance symmetrically. Abdominal vasculature: The abdominal aorta is normal in course and caliber noting mild to moderate atherosclerotic calcification. Bowel: As noted above, there is significant wall thickening and edema identified within the proximal duodenum adjacent to the pancreatic head. No bowel obstruction is seen. The appendix is well-visualized and normal. Peritoneum: There is no intraperitoneal free air or abdominal ascites. Foci of induration within the ventral abdominal pannus are likely related to subcutaneous injections. Lymphadenopathy: None. Pelvic viscera: The bladder, uterus, and adnexa are normal as visualized. Small ovarian follicles are incidentally noted. Skeletal structures: No lytic or blastic lesions are seen. IMPRESSION: 1. There is an inflammatory process identified surrounding the pancreatic head and involving the proximal duodenum. This likely represents acute pancreatitis with associated inflammation of the duodenum. Primary duodenitis is a d ifferential consideration. Correlation with serum amylase/lipase levels is recommended. 2. The pancreas enhances homogeneously. No peripancreatic fluid collection is identified. 3. Hepatomegaly and severe hepatic steatosis. 4. Additional findings as above. Electronically signed by: Valerio Copeland M.D. 10/10/2018 2:55 PM Dictated: 10/10/18 1447 Transcribed: 10/10/[address] SCAN OF THE BRAIN WITHOUT IV CONTRAST CLINICAL HISTORY: Nausea and vomiting. Right parietal swelling. COMPARISON STUDY: CT of the brain dated 07/17/2018. TECHNIQUE: Unenhanced axial CT scan of the brain is performed from the vertex to the skull base. A dose lowering technique was utilized adhering to the principles of ALARA. FINDINGS: Brain parenchyma: The brain parenchyma is normal in appearance. There is no hemorrhage, mass effect, or evidence of acute territorial ischemia by CT criteria. Rose-white matter differentiation is preserved. No extra-axial fluid collection is seen. Ventricles, sulci, cisterns: Normal in configuration. Intracranial vasculature: The visualized intracranial vasculature at the skull base is normal in appearance. Calvarium: There is no depressed calvarial fracture. Soft tissues: There is minimal high right parietal scalp edema (axial image #27). Sinuses and mastoids: There is complete opacification of the right maxillary antrum, new from 07/17/2018. Material protrudes through the ostiomeatal complex, and there is also complete opacification of several right ethmoid sinuses. Trace mucosal thickening is seen in the sphenoid sinuses and right frontal sinus. The mastoid air cells are well pneumatized. Orbits: The bony orbits are grossly intact. There is mild proptosis. IMPRESSION: 1. No acute intracranial abnormality. 2. There is paranasal sinus disease as above, new from 07/17/2018. 3. Minimal high right parietal scalp edema is noted. Electronically signed by: Valerio Copeland M.D. 10/10/2018 2:46 PM Dictated: 10/10/18 1443 Transcribed: 10/10/18 1443 XR chest 1V portable CLINICAL HISTORY: wheezing cough COMPARISON STUDY: 10/01/2018 FINDINGS: The bones soft tissues and hemidiaphragms are normal. The cardiomediastinal silhouette is normal. The lungs are clear. The pulmonary vasculature is normal. IMPRESSION: Negative chest. Hospital Course (1) Acute pancreatitis: Present on admission with abdominal pain associated with nausea and vomiting started last night after drinking Alcohol CT abd/pelvis showed inflammatory process identified surrounding the pancreatic head and involving the proximal duodenum. Lipase on admission above 4k, decreased to 614 today On IVF and pain control Diet advanced to low fat and tolerated well GI on board Was unable to get the MRCP done yesterday Refused to get the MRCP done today, text cancelled Clinically improves Case discussed with GI and ok from GI standpoint to discharge home (2) Alcohol abuse: Drink alcohol daily on gabapentin alcohol withdraw protocol Continue thiamine and folic acid Monitor for signs of alcohol withdrawn Counseling on alcohol cessation Refused inpatient alcohol rehab treatment (3) Elevated troponin: Chronic elevated troponin No ischemic changes on EKG Troponin trending down Last ECHO on 12/15 showed no wall motion abnormality with EF 55-60 % (4) DM type 2 (diabetes mellitus, type 2): Elevated glucose Recent Hba1c 7.1 Continue insulin sliding scale in the hospital On Lantus BS stable Monitor BS Scalp swelling Possible related to fall? CT head showed Minimal high right parietal scalp edema Continue monitor HTN BP elevated has not been taking the valsartan Continue Vasalrtan HCTZ on hold Continue labetalol prn Monitor BP Cocaine abuse UDS negative for cocaine Counseling on cocaine cessation Hypokalemia K 3.1 replaced K Check BMP in 1 week PAF Rate controlled on Diltiazem Continue Eliquis High risk of falls due to alcohol abuse Schizoaffective disorder, bipolar type Denies any suicidal thought or hallucination Psych on board No inpatient psych needed Follow up with outpatient psych Tobacco abuse Counseling on smoking cessation DVT px on Eliquis CODE status Full code Disposition Discharge home today Follow up with your primary care provider Dr. Farah on 10/19 @ 12:45 PM Total Time Total Time Spent Total Time Spent (In Minutes): 35 minutes Total Time Includes: Examination of the Patient, Discharge Planning, Medication Reconciliation, Communication With Other Providers and Other Discharge Plan Discharge Items Patient Disposition: Home - Self-Care Reason For Visit: VOMITING Discharge Diagnosis: Acute pancreatitis Alcohol abuse Hypokalemia Elevated troponin Scalp screening Tobacco abuse PAF Condition: Fair Discharge Goals: Decrease discomfort, Improve disease control, Improve function and Increase independence Activity: Resume your previous activity Activity Comment: As tolerated Non-emergency contact: Primary Care Provider Call non-emergency contact if: you have any medication questions and your symptoms worsen Follow-up/Referrals: Marisel Nelson MD [Primary Care Provider] - Diet: Carb Consistent or DM2 and Low Fat Addtl Provider Instructions: Follow up with your primary care provider Dr. Nelson on 10/19 @ 12:45 PM You need to schedule an appointment to follow with your psychiatrist Seek help for the alcohol abuse Do not drink alcohol while on Eliquis Counseling on smoking cessation Fall precaution Check BMP in 1 week to monitor your electrolytes Follow a low fat diet Prescriptions: New thiamine HCl (vitamin B1) [Vitamin B-1] 100 mg Tablet 100 mg PO QAM Qty: 30 RF: 0 folic acid 1 mg Tablet 1 mg PO QAM 30 Days Qty: 30 RF: 0 potassium chloride 10 mEq capsule, extended release 10 meq PO DAILY Qty: 30 RF: 0 Continued albuterol sulfate 2.5 mg /3 mL (0.083 %) Solution For Nebulization 2.5 mg INHALATION Q4 PRN (Reason: Shortness Of Breath Or Wheezing) RF: 0 valacyclovir 500 mg Tablet 500 mg PO QAM RF: 0 trazodone 100 mg Tablet 200 mg PO HS PRN (Reason: Sleep) RF: 0 valsartan 320 mg Tablet 320 mg PO QAM RF: 0 hydralazine 50 mg Tablet 50 mg PO BID RF: 0 diltiazem HCl 300 mg Tablet Extended Release 24 Hr 300 mg PO QAM RF: 0 Basaglar KwikPen U-100 Insulin 100 unit/mL (3 mL) Insulin Pen 60 unit SUBCUT HS RF: 0 omeprazole 20 mg Tablet,Delayed Release (Dr/Ec) 20 mg PO QAM RF: 0 Spiriva Respimat 2.5 mcg/actuation Mist 2 puff INHALATION QAM RF: 0 cyclobenzaprine 10 mg Tablet 10 mg PO BID PRN (Reason: MUSCLE SPASMS) RF: 0 ranitidine HCl 300 mg Tablet 300 mg PO HS RF: 0 lactulose [Constulose] 10 gram/15 mL solution 30 ml PO DAILY PRN (Reason: Constipation) RF: 0 Dulera 200-5 mcg/actuation Hfa Aerosol Inhaler 2 puff INHALATION BID RF: 0 Eliquis 5 mg tablet 5 mg PO QAM RF: 0 gabapentin 300 mg 1 tab PO TID RF: 0 metformin 500 mg 2 tab PO DAILY RF: 0 perphenazine 4 mg 18 mg PO BID RF: 0 hydrochlorothiazide 12.5 mg 1 tab PO DAILY RF: 0 Stand-Alone Forms: [facility] Discharge Orders: Discharge Order (Routine); Ordered 10/13/18 Ordered By: Anastasiya Waldrop Admission Data Admit Date/Time: 10/10/18 16:35 Attending Provider: Anastasiya Waldrop Admit Provider: Anastasiya Waldrop Primary Care Provider: Marisel Nelson Other Providers: Anastasiya Waldrop ; Ronn Marquez ; Marlee Gutierrez Service: Telemetry Medical Other Interventions: Discharge Summary Assessment (RN) Last Done: 10/13/18 16:20 DC Date/Time DO NOT enter until pt leaves facility: 10/13/18 16:38
== END 2018-10-13 16:38 | disposition home or self-care (01) | DRG 439 ==
LOC: ED 12:21 → 2N 16:35
DX: Z88.1 Allergy status to other antibiotic agents; R55 Syncope and collapse; Z88.0 Allergy status to penicillin; F12.90 Cannabis use, unspecified, uncomplicated; S20.212A Contusion of left front wall of thorax, initial encounter; Z88.8 Allergy status to other drugs, medicaments and biological substances; Z79.4 Long term (current) use of insulin; Z86.73 Personal history of transient ischemic attack (TIA), and cerebral infarction without residual deficits; Z88.2 Allergy status to sulfonamides; Z68.41 Body mass index [BMI] 40.0-44.9, adult; Z91.19 Patient's noncompliance with other medical treatment and regimen; F14.10 Cocaine abuse, uncomplicated; F25.0 Schizoaffective disorder, bipolar type; E66.9 Obesity, unspecified; K76.0 Fatty (change of) liver, not elsewhere classified; Z79.01 Long term (current) use of anticoagulants; Z79.84 Long term (current) use of oral hypoglycemic drugs; Z82.49 Family history of ischemic heart disease and other diseases of the circulatory system; R00.0 Tachycardia, unspecified; F10.10 Alcohol abuse, uncomplicated; R22.9 Localized swelling, mass and lump, unspecified; F39 Unspecified mood [affective] disorder; I48.0 Paroxysmal atrial fibrillation; Z88.5 Allergy status to narcotic agent; K70.10 Alcoholic hepatitis without ascites; E11.40 Type 2 diabetes mellitus with diabetic neuropathy, unspecified; Z99.81 Dependence on supplemental oxygen; F17.200 Nicotine dependence, unspecified, uncomplicated; J96.11 Chronic respiratory failure with hypoxia; K85.90 Acute pancreatitis without necrosis or infection, unspecified; J44.9 Chronic obstructive pulmonary disease, unspecified; K85.20 Alcohol induced acute pancreatitis without necrosis or infection; E87.6 Hypokalemia; W01.198A Fall on same level from slipping, tripping and stumbling with subsequent striking against other object, initial encounter; I10 Essential (primary) hypertension

== ENCOUNTER 2018-11-08 | Inpatient (IN) ==
--- OUTSIDE RECORDS SUMMARY | 2018-11-08 00:05 | External Medical Summary | Continuity of Care Document ---
:1965 Author Name Gabe Almanza, Provider Address Unavailable Unavailable , Care Team Providers Name Role Phone Margareth Almanza, Alonso Unavailable [email or web address] Luu PA-C Unavailable [email or web address] Yovani Murdock M.D. Unavailable [email or web address] Lagunas PA-C Unavailable [email or web address] Unavailable [email or web address] Unavailable Unavailable Unavailable Unavailable Unavailable Problems Tinea pedis (110.4) (B35.3) Dysuria (788.1) (R30.0) Rectal bleeding (569.3) (K62.5) Urinary incontinence (788.30) (R32) Vaginal discharge (623.5) (N89.8) Hidradenitis suppurativa (705.83) (L73.2) Ovarian cyst, complex (620.2) (N83.299) Hoarseness (784.42) (R49.0) Current smoker (305.1) (F17.200) Palpitations (785.1) (R00.2) Visual changes (368.9) (H53.9) Elevated sed rate (790.1) (R70.0) ISAAK positive (795.79) (R76.8) Peripheral neuropathy (356.9) (G62.9) Paroxysmal atrial fibrillation (427.31) (I48.0) Chronic constipation (564.00) (K59.09) Excessive daytime sleepiness (780.54) (G47.19) Diabetes mellitus (250.00) (E11.9) Obstructive sleep apnea (327.23) (G47.33) Nocturnal hypoxia (327.24) (G47.34) Obesity (278.00) (E66.9) Chronic obstructive pulmonary disease (496) (J44.9) Pulmonary hypertension (416.8) (I27.20) Chronic anticoagulation (V58.61) (Z79.01) Vaginal bleeding (623.8) (N93.9) Schizoaffective disorder (295.70) (F25.9) Hypertension (401.9) (I10) Cocaine abuse (305.60) (F14.10) Chest pain (786.50) (R07.9) Arthritis of left shoulder region (716.91) (M19.012) Chronic low back pain (724.2) (M54.5) Allergies and Adverse Reactions Bactrim TABS (Allergy) CeleXA TABS (Allergy) Penicillins (Allergy) Percocet TABS (Adverse Event) Reaction: Constipation, Itching Other (Allergy) Medications Omeprazole 20 MG Oral Capsule Delayed Release; TAKE 1 CAPSULE BY MOUTH DAILY Cami Zuluaga Start: 07-Nov-2016 Quantity: 30 Refills: 3 Lactulose 10 GM/15ML Oral Solution; take 45 milliliter s daily Cami Zuluaga Start: 23-Sep-2014 Quantity: 473 Refills: 6 valACYclovir HCl - 500 MG Oral Tablet; TAKE 1 TABLET B Y MOUTH DAILY CHANTEL Luu Start: 11-Dec-2016 Quantity: 30 Refills: 3 Furosemide 40 MG Oral Tablet; take 1 tablet by mouth e very morning Cami Zuluaga Start: 26-Feb-2017 Quantity: 30 Refills: 5 Albuterol Sulfate (2.5 MG/3ML) 0.083% In halation Nebulization Solution; USE 1 UNIT DOSE EVERY 4-6 HOURS NEEDED FOR WHEEZING . CHANTEL Lagunas rt: 20-Oct-2014 Quantity: 1 3 ML Plas Cont (25 P las Conts) Refills: 3 traZODone HCl - 50 MG Oral Tablet; TAKE 1 TABLET AT BEDTIME. Start: 03-Nov-2015 Quantity: 30 Refills: 3 BD Insulin Syr Ultrafine II 31G X 5/16" 0.5 ML; USE 8 UNITS BEFOE EVERY MEAL GIA Zuluaga Start: 21-Nov-2017 Quantity: 1 100 Unit Box Refills: 5 Losartan Potassium 50 MG Oral Tablet; TAKE 1 TABLET BY MOUTH DAILY Cami Zuluaga Start: 07-Nov-2016 Quantity: 30 Refills: 3 Lantus SoloStar 100 UNIT/ML Subcutaneous Solution Pen- injector; 38 UNITS SQ HS Cami Zuluaga Start: 08-Oct-2016 Quantity: 15 Refills: 4 Accu-Chek Multiclix Lancets; use 1 daily Cami Zuluaga Start: 28-Oct-2016 Quantity: 102 Refills: 3 Constulose 10 GM/15ML Oral Solution; take 45 millilite rs daily Cami Zuluaga Start: 10-Jan-2017 Quantity: 473 Refills: 5 Permethrin 5 % External Cream; MASSAGE I NTO SKIN FROM HEAD TO SOLES OF FEET. WASH OFF AFTER 8-14 HOURS.REPEAT IN 1 WEEK. CHANTEL Luu Start: 10-Oct-2016 Quantity: 1 60 GM Tube Refills: 1 Accu-Chek Romi Plus In Vitro Strip; USE METER, STRIP, AND LANCETS TO CHECK BLOOD SUGAR SQ 3 TIMES DAILY FOR DIABETES AUTO Cami Zuluaga Start: 21-Aug-2016 Quantity: 1 100 Strip Box Refills: 5 HumaLOG 100 UNIT/ML Subcutaneous Solutio n Cartridge; inject 8 units prior to meals for BS Cami Zuluaga Start: 07-Aug-2016 Quantity: 1 Refills: 5 Eliquis 5 MG Oral Tablet; take 1 tablet by mouth twice a day Cami Zuluaga Start: 11-Feb-2017 Quantity: 60 Refills: 0 dilTIAZem HCl ER Coated Beads 300 MG Ora l Capsule Extended Release 24 Hour; take 1 capsule by mouth once daily Cami Zuluaga Start: 03-Sep-2016 Quantity: 90 Refills: 3 raNITIdine HCl - 150 MG Oral Tablet; take 1 tablet by mouth twice a day CHANTEL Luu Start: 08-Nov-2016 Quantity: 180 Refills: 0 Accu-Chek Romi Device; USE DIRECTED. Cami Zuluaga Start: 21-Aug-2016 Quantity: 1 Refills: 0 Accu-Chek Softclix Lancets; TEST ONCE A DAY Cami Zuluaga aul Start: 30-Oct-2016 Quantity: 1 100 Miscellaneous Omero x Refills: 3 Procedures History of Ovarian Cystectomy Status: Co mpleted History of Arm Excision Status: Complete d Immunizations Immunizations not documented Social History - Smoking Status Smoker. current status unknown Plan of Treatment Planned Observations Planned Goals not documented Results No Known Results Results not documented Encounters Appointment; Felicia Lagunas PA-C 08-Jun-2018 9:30 Encounter Diagnosis: Problem not documented Appointment; Felicia Lagunas PA-C 06-Apr-2018 10:00 Encounter Diagnosis: Problem not documented Appointment; Felicia Lagunas PA-C 26-Mar-2018 9:00 Encounter Diagnosis: Problem not documented Appointment; Yovani Murdock M.D. 13-Feb-2018 14:00 Encounter Diagnosis: Problem not documented Appointment; Kari Mendoza PA-C 25-Aug-2017 10:00 Encounter Diagnosis: Problem not documented Appointment; Kari Mendoza PA-C 08-Aug-2017 13:00 Encounter Diagnosis: Problem not documented Appointment; Denise Luu PA-C 04-Feb-2017 11:15 Encounter Diagnosis: Problem not documented Appointment; Raysa Lee M.D. 25-Dec-2016 10:00 Encounter Diagnosis: Problem not documented Appointment; Alonso Zuluaga M.D. 20-Dec-2016 15:00 Encounter Diagnosis: Problem not documented
[2018-11-08] MEDS ORDERED: SODIUM CHLORIDE 0.9% 500 ML IV SCH (00:15)
[2018-11-08 00:36] LABS: Hematocrit (blood only) 36.5 % (37-47); Hemoglobin 13.4 g/dL (12.0-16.0); Mean Corpuscular Hgb Conc 36.7 g/dL (32-36); Mean Corpuscular Volume 96.3 fL (80-100); Mean Platelet Volume 9.7 fL (7.4-10.4); Platelet Count 142 K/uL (130-400); RDW Coefficient of Variation 13.9 % (11.5-14.5); Red Blood Count 3.79 M/uL (4.2-5.4); White Blood Count 4.23 K/uL (4.8-10.8)
--- NOTE | 2018-11-08 00:49 | Emergency Department Note ---
Entered by Mathew Senior acting as a scribe for Manny Edwards MD History of Present Illness General Chief complaint: Skin Problem Stated complaint: lump in breast Time Seen by Provider: 11/08/18 00:05 Source: patient History of Present Illness Onset (ago): day(s) 1 Location: chest Pain Consistency: + constant Quality: + other (chest pain after trauma) Exacerbated By: + movement Associated symptoms: + other (passed out; abdominal pain; back pain) Treatments prior to arrival: other (alcohol) The patient is a 53 year old female who presents to the Emergency Room with complaints of chest pain after trauma occurring about 24 hours ago. The patient reports that she passed out and believes she struck her chest on the fan in the bathroom. She is unsure why she passed out, but states that this is not abnormal for her. She states that she regularly drinks alcohol and drank some today. The patient also reports a lump in her back and constant abdominal pain exacerbated with movement. She states that she regularly smokes but denies any illicit drug use. She reports a history of anxiety and depression and states that she intermittently has thoughts of self-harm, but she has not acted on any of these thoughts or had thoughts of harming anyone else. She states that she takes her regular medications when I can. Home Medications Home Medications Medication Instructions Recorded Confirmed Type Basaglar KwikPen U-100 Insulin 60 unit SUBCUT HS 07/05/18 11/08/18 History Spiriva Respimat 2 puff INHALATION QAM 07/05/18 11/08/18 History albuterol sulfate 2.5 mg INHALATION Q4 PRN 07/05/18 11/08/18 History diltiazem HCl 300 mg PO QAM 07/05/18 11/08/18 History hydralazine 50 mg PO BID 07/05/18 11/08/18 History omeprazole 20 mg PO QAM 07/05/18 11/08/18 History trazodone 200 mg PO HS PRN 07/05/18 11/08/18 History valacyclovir 500 mg PO QAM 07/05/18 11/08/18 History valsartan 320 mg PO QAM 07/05/18 11/08/18 History Eliquis 5 mg PO QAM 09/29/18 11/08/18 History cyclobenzaprine 10 mg PO BID PRN 09/29/18 11/08/18 History lactulose [Constulose] 30 ml PO DAILY PRN 09/29/18 11/08/18 History ranitidine HCl 300 mg PO HS 09/29/18 11/08/18 History perphenazine 18 mg PO BID 10/10/18 11/08/18 History folic acid 1 mg PO QAM 30 Days #30 tab 10/13/18 11/08/18 Rx potassium chloride 10 meq PO DAILY #30 cap 10/13/18 11/08/18 Rx thiamine HCl (vitamin B1) [Vitamin 100 mg PO QAM #30 tab 10/13/18 11/08/18 Rx B-1] ergocalciferol (vitamin D2) 50,000 unit PO WK 11/08/18 11/08/18 History [Vitamin D2] gabapentin 300 mg PO TID 11/08/18 11/08/18 History hydrochlorothiazide 12.5 mg PO DAILY 11/08/18 11/08/18 History ibuprofen 800 mg PO DIRECTED PRN 11/08/18 11/08/18 History ipratropium-albuterol [Combivent 1 puff INHALATION DIRECTED 11/08/18 11/08/18 History Respimat] meclizine 12.5 mg PO DIRECTED PRN 11/08/18 11/08/18 History metformin 500 mg PO BID 11/08/18 11/08/18 History Allergies Allergy/AdvReac Type Severity Reaction Status Date / Time haloperidol Allergy Severe TONGUE Verified 11/08/18 00:43 SWELLING insulin lispro Allergy Intermediate HIVES Verified 11/08/18 00:43 phenol Allergy Intermediate HIVES Verified 11/08/18 00:43 citalopram Allergy Mild ITCHING Verified 11/08/18 00:43 sulfamethoxazole Allergy Mild RASH Verified 11/08/18 00:43 trimethoprim Allergy Mild RASH Verified 11/08/18 00:43 Bactrim Allergy Unknown RASH Verified 12/01/17 16:09 Penicillins Allergy Unknown UNKNOWN Verified 11/08/18 00:43 topiramate AdvReac Severe SEIZURE Verified 11/08/18 00:43 LIKE ACTIVITY morphine AdvReac Mild HEADACHE Verified 11/08/18 00:43 oxycodone AdvReac Mild ITCH Verified 10/10/18 13:23 Margarine Allergy Severe RASH Uncoded 10/10/18 13:23 Past Med/Surg History Medical History DM type 2 (diabetes mellitus, type 2) Alcohol abuse Suicidal ideations Bronchitis (Acute) Prolonged QT interval Non-sustained ventricular tachycardia (Acute) Tobacco use disorder (Chronic) History of opioid abuse (Chronic) Cocaine abuse (Chronic) Hx of suicide attempt (Resolved) Diabetes (Chronic) COPD (chronic obstructive pulmonary disease) (Chronic) Fatty liver (Chronic) Elevated troponin (Chronic) Obesity (Chronic) HTN (hypertension) (Chronic) Sleep apnea (Chronic) Neuropathy (Chronic) Sciatic nerve disease (Chronic) Atrial fibrillation (Chronic) Epistaxis, recurrent (Chronic) Chronic generalized pain disorder (Chronic) Schizoaffective disorder, bipolar type (Chronic) COPD with exacerbation (Acute) Alcohol induced acute pancreatitis (Acute) ETOH abuse Rectal bleeding (Acute) EtOH dependence (Inactive) Surgical History H/O ovarian cystectomy (Resolved) H/O foot surgery (Resolved) Family History Other Heart disease Social History Preferred Language: Malay Communication Ability: Effective Visual Impairment: No Limitations Beliefs That Will Affect Care: None marital status: single Current Living Situation: Family Current Living Situation Comment: lives with brothers? current occupational status: unemployed and disabled Feels Safe at Home: Hesitant to Answer Smoking Status: Current every day smoker Tobacco Type: cigarettes Cigarettes Per Day: 10 Second Hand Exposure: No Hx Alcohol Use: Yes Alcohol type: beer, wine and hard liquor Hx Substance Use: Yes substance use type: crack/cocaine Review of Systems See HPI for pertinent positives & negatives. and A total of 10 systems reviewed and were otherwise negative Physical Exam Vital Signs Vital Signs - 24 hr 11/08/18 00:04 11/08/18 00:30 11/08/18 01:09 Temperature 37.3 C Temperature Source Oral Sepsis Recent Fever Within 48 Hours No Sepsis New/Unexplained Change in Mental Status No Sepsis Action Taken by Nursing No Action Required Pulse Rate 104 H Pulse Rate [Apical] 92 H Respiratory Rate 18 18 Respiratory Effort / Characteristics Spontaneous Respiratory Depth Normal Normal Respiratory Pattern Regular Blood Pressure 122/79 Blood Pressure [Right Arm] 122/79 Blood Pressure Mean 93 Blood Pressure Mean [Right Arm] 93 Pulse Oximetry 97 93 92 Oxygen Delivery Method Room Air Room Air Room Air General: Middle-age female that is teary-eyed. HEENT: Normal cephalic atraumatic. Pupils are equal round and reactive to light. Extraocular movements are intact. Oropharynx is pink with moist mucous membranes. No swelling of the mouth lips or tongue. Neck: Supple with a midline trachea. No meningeal signs or stiffness, no JVD or bruits. No Stridor. Chest: Large bruise with hematoma in the left anterior chest, no crepitus. Clear to auscultation bilaterally. No wheezes or rhonchi. No increased work of breathing. Heart: regular rate and rhythm. Abdomen: Soft nontender, nondistended without rebound guarding or rigidity. Extremities: No cyanosis clubbing or edema. No calf tenderness or asymmetry Spine/Back. Non tender to palpation. No CVA tenderness Skin: Good turgor without rashes. Neurologic exam: Cranial nerves two through 12 are intact. Motor and sensation are intact and symmetrical throughout. Course 1206: The patient was evaluated in room A2. A complete history and physical exam ination were performed. 1320: I consulted Dr. Luis Huffman Hospitalist. The patient will be e valuated for hospitalization. Administered Medications Multivitamins 10 ml/ Thiamine HCl 100 mg/ Folic Acid 1 mg/Sodium Chloride 1,01 1.2 mls @ 1,011.2 mls/hr IV .Q1H CARLOS Stop: 11/08/18 02:14 Last Admin: 11/08/18 01:47 Dose: 1,011.2 mls/hr Documented by: [id number] Discontinued Medications Acetaminophen (Tylenol) 650 mg PO NOW STA Stop: 11/08/18 00:56 Last Admin: 11/08/18 01:12 Dose: 650 mg Documented by: [id number] Sodium Chloride (Nss) 500 mls @ 999 mls/hr IV .Q31M CARLOS Stop: 11/08/18 00:45 Last Infusion: 11/08/18 01:19 Dose: 0 mls/hr Documented by: [id number] Admin: 11/08/18 00:48 Dose: 999 mls/hr Documented by: [id number] Potassium Chloride (Klor-Con M20) 40 meq PO NOW STA Stop: 11/08/18 01:37 Last Admin: 11/08/18 01:47 Dose: 40 meq Documented by: [id number] Medical Decision Making Differential Diagnosis Differential diagnosis: trauma, alcohol intoxication, syncope, psychiatric diso rder, electrolyte or metabolic abnormality Medical Records Attestation: I reviewed the patient's medical records. Home Medications Current Medication List: was personally reviewed by me Laboratory Data Attestation: I reviewed the patient's lab results. Result diagrams: 11/08/18 00:24 11/08/18 00:24 Lab Results 11/08/18 11/08/18 11/08/18 Range/Units 00:24 00:24 00:24 WBC 4.23 L (4.8-10.8) K/uL RBC 3.79 L (4.2-5.4) M/uL Hgb 13.4 (12.0-16.0) g/dL Hct 36.5 L (37-47) % MCV 96.3 (80-100) fL MCH 35.4 H (25-34) pg MCHC 36.7 H (32-36) g/dL RDW Std Deviation 49.0 H (36.4-46.3) fL RDW Coeff of Ally 13.9 (11.5-14.5) % Plt Count 142 (130-400) K/uL MPV 9.7 (7.4-10.4) fL Immature Gran % (Auto) 0.5 % Neut % (Auto) 36.9 % Lymph % (Auto) 50.1 % [place] % (Auto) 10.4 % Eos % (Auto) 1.2 % Baso % (Auto) 0.9 % Immature Gran # (Auto) 0.02 (0.00-0.02) K/uL Neut # (Auto) 1.56 (1.4-6.5) K/uL Lymph # (Auto) 2.12 (1.2-3.4) K/uL [place] # (Auto) 0.44 (0.11-0.59) K/uL Eos # (Auto) 0.05 (0-0.5) K/uL Baso # (Auto) 0.04 (0-0.2) K/uL Sodium 136 (136-145) mmol/L Potassium 3.4 L (3.5-5.1) mmol/L Chloride 100 (98-107) mmol/L Carbon Dioxide 26 (21-32) mmol/L Anion Gap 9.0 (3-11) BUN 7 (7-18) mg/dl Creatinine 0.83 (0.6-1.2) mg/dl Est Cr Clr Drug Dosing 97.8 ml/min Est GFR ( Amer) 92.7 Est GFR (Non-Af Amer) 79.9 BUN/Creatinine Ratio 8.6 L (10-20) Glucose 167 H (70-99) mg/dl Calcium 9.1 (8.5-10.1) mg/dl Magnesium 1.8 (1.8-2.4) mg/dl Total Bilirubin 0.2 (0.2-1) mg/dl AST 97 H (15-37) U/L ALT 121 H (12-78) U/L Alkaline Phosphatase 122 H (45-117) U/L Troponin I 0.185 H* (0-0.045) ng/ml Total Protein 7.5 (6.4-8.2) gm/dl Albumin 3.2 L (3.4-5.0) gm/dl Globulin 4.3 H (2.5-4.0) gm/dl Albumin/Globulin Ratio 0.7 L (0.9-2) Lipase 981 H (73-393) U/L Ethyl Alcohol mg/dL 232.6 H (0-3) mg/dl Imaging Data Attestation: I personally reviewed and interpreted this imaging study as follows: My Impression: Chest x-ray per my review and interpretation was negative for infiltrate, effusion, failure, pneumothorax, or wide mediastinum. ECG Data Attestation: I personally reviewed and interpreted this ECG as follows: Indication: chest pain Rate (beats per minute): 92 Rhythm: normal sinus Findings: + other (mildly prolonged QT interval); no ST depression and no ST elevation Blood Pressure Blood Pressure Findings: Normal blood pressure Blood Pressure Disposition: did not require urgent referral Head Trauma GCS Score: 15 MDM Narrative This patient comes in as described above. I do know her well from previous visit she has multiple medical problems as well as mental health and substance abuse issues. She apparently fell and hit her chest. She has a large bruise that is tender. She is complaining that she feels like she has pancreatitis again and does drink heavily. IV access established was hydrated normal saline. Chest x-ray does not show any pneumothorax or any definite injuries. EKG and multiple blood testing was obtained. She was reassessed frequently. She complained of pain and was given Tylenol. She was found to be intoxicated with a blood alcohol of greater than 200. Also her lipase was almost 1000 and she likely does have a pancreatitis from her alcohol use. She says that she has been unable to keep down fluids and foods. And clinically does have pancreatitis. Her EKG does not show any ischemic changes or arrhythmias. She was hydrated with normal saline additionally did order a banana bag given her alcohol use. Given her pancreatitis I do think she needs to be admitted/observe for further inpatient treatment evaluation and have consulted Dr. Lanza to see her for these measures. Impression & Plan Pancreatitis, Alcohol intoxication, Chest wall contusion, Nausea Discharge Plan Visit Data Chief Complaint: Skin Problem Stated Complaint: lump in breast ED Provider: Manny Edwards Discharge Problem: Pancreatitis, Alcohol intoxication, Chest wall contusion, Nausea Patient Disposition: Being Evaluated by Hospitalist Forms Stand Alone Forms: My [facility] Prescriptions Prescriptions: No Action albuterol sulfate 2.5 mg /3 mL (0.083 %) Solution For Nebulization 2.5 mg INHALATION Q4 PRN (Reason: Shortness Of Breath Or Wheezing) RF: 0 valacyclovir 500 mg Tablet 500 mg PO QAM RF: 0 trazodone 100 mg Tablet 200 mg PO HS PRN (Reason: Sleep) RF: 0 valsartan 320 mg Tablet 320 mg PO QAM RF: 0 hydralazine 50 mg Tablet 50 mg PO BID RF: 0 diltiazem HCl 300 mg Tablet Extended Release 24 Hr 300 mg PO QAM RF: 0 Basaglar KwikPen U-100 Insulin 100 unit/mL (3 mL) Insulin Pen 60 unit SUBCUT HS RF: 0 omeprazole 20 mg Tablet,Delayed Release (Dr/Ec) 20 mg PO QAM RF: 0 Spiriva Respimat 2.5 mcg/actuation Mist 2 puff INHALATION QAM RF: 0 cyclobenzaprine 10 mg Tablet 10 mg PO BID PRN (Reason: MUSCLE SPASMS) RF: 0 ranitidine HCl 300 mg Tablet 300 mg PO HS RF: 0 lactulose [Constulose] 10 gram/15 mL solution 30 ml PO DAILY PRN (Reason: Constipation) RF: 0 Eliquis 5 mg tablet 5 mg PO QAM RF: 0 perphenazine 4 mg 18 mg PO BID RF: 0 thiamine HCl (vitamin B1) [Vitamin B-1] 100 mg Tablet 100 mg PO QAM Qty: 30 RF: 0 folic acid 1 mg Tablet 1 mg PO QAM 30 Days Qty: 30 RF: 0 potassium chloride 10 mEq capsule, extended release 10 meq PO DAILY Qty: 30 RF: 0 gabapentin 300 mg Tablet Extended Release 24 Hr 300 mg PO TID RF: 0 metformin 500 mg Tablet Extended Release 24hr 500 mg PO BID RF: 0 hydrochlorothiazide 12.5 mg Tablet 12.5 mg PO DAILY RF: 0 Combivent Respimat 20-100 mcg/actuation Mist 1 puff INHALATION DIRECTED RF: 0 ibuprofen 800 mg Tablet 800 mg PO DIRECTED PRN (Reason: Pain) RF: 0 meclizine 12.5 mg Tablet 12.5 mg PO DIRECTED PRN (Reason: Dizziness) RF: 0 ergocalciferol (vitamin D2) [Vitamin D2] 50,000 unit Capsule 50,000 unit PO WK RF: 0 Referrals Referrals: Yovani Arellano MD [Primary Care Provider] - The scribe's documentation has been prepared under my direction and personally reviewed by me in its entirety. I confirm that the note above accurately reflects all work, treatment, procedures, and medical decision making performed by me.
[2018-11-08 00:53] LABS: Albumin Level 3.2 gm/dl (3.4-5.0); BUN Creatinine Ratio 8.6 (10-20); Calcium 9.1 mg/dl (8.5-10.1); Creatinine Clr Calc Pharmacy 97.8 ml/min; Est GFR (African American) 92.7; Est GFR (Non-African American) 79.9; Potassium 3.4 mmol/L (3.5-5.1)
[2018-11-08] MEDS ORDERED: ACETAMINOPHEN 325 MG TAB PO STA (00:55)
[2018-11-08 01:07] LABS: Albumin Globulin Ratio 0.7 (0.9-2); Bilirubin,Total 0.2 mg/dl (0.2-1); Globulin 4.3 gm/dl (2.5-4.0); Total Protein 7.5 gm/dl (6.4-8.2); Troponin I 0.185 ng/ml (0-0.045)
[2018-11-08 01:14] LABS: Basophils # (auto) 0.04 K/uL (0-0.2); Basophils % (auto) 0.9 %; Eosinophils # (auto) 0.05 K/uL (0-0.5); Eosinophils % (auto) 1.2 %; Immature Granulocytes # (auto) 0.02 K/uL (0.00-0.02); Immature Granulocytes % (auto) 0.5 %; Lymphocytes # (auto) 2.12 K/uL (1.2-3.4); Lymphocytes % (auto) 50.1 %; Monocytes # (auto) 0.44 K/uL (0.11-0.59); Monocytes % (auto) 10.4 %; Neutrophils # (auto) 1.56 K/uL (1.4-6.5); Neutrophils % (auto) 36.9 %
[2018-11-08] MEDS ORDERED: MULTI-VITAMIN INFUSION 10 ML, THIAMINE HCL 100 MG, FOLIC ACID 1 MG in SODIUM CHLORIDE 0... IV SCH (01:15)
[2018-11-08] MEDS ORDERED: POTASSIUM CHLORIDE 20 MEQ TABCR PO STA (01:36)
[2018-11-08 01:55] LABS: Magnesium 1.8 mg/dl (1.8-2.4)
[2018-11-08] MEDS ORDERED: KETOROLAC TROMETHAMINE 15 MG/ML VIAL ONE (02:18)
[2018-11-08] MEDS ORDERED: LORazepam 0.5 MG/1 ML VIAL IV PRN (02:19)
[2018-11-08] MEDS ORDERED: KETOROLAC TROMETHAMINE 15 MG/ML VIAL IV STA (02:23)
[2018-11-08] MEDS ORDERED: IOVERSOL 100ml IV PRN (02:28)
[2018-11-08 02:31] LABS: Partial Thromboplastin Ratio 1.1; Partial Thromboplastin Time 29.6 Seconds (21.0-31.0)
--- NOTE | 2018-11-08 02:33 | History & Physical Report ---
Date of Service November 08, 2018 Assessment & Plan (1) Pancreatitis: Recurrent disease secondary to alcohol abuse Alcoholic hepatitis Troponin elevation secondary to discomfort, tachycardia Traumatic left chest wall hematoma, rib fracture Recurrent syncope secondary to alcohol intoxication Rule out orthostasis, seizures given incontinence complaints chronic respiratory failure secondary to COPD on home O2, usual wheezing on exam Ongoing tobacco abuse PAF on Eliquis, patient NSR history of TIAs as per records hypertension, stable DM 2 insulin requiring, reasonable control as of recent inpatient hemoglobin A1c of 7.1 last month mood disorder/paranoid schizophrenia, at baseline Hypokalemia secondary to chronic diarrhea, home insulin rule out C. difficile Left posterior shoulder pain Protracted sinusitis symptoms Past treatment with Z-Balwinder as per patient No sepsis Medical telemetry given troponin elevation Bowel rest, IV fluids GI consult RE recurrent pancreatitis DT precautions Trend H&H, transfuse PRBC if hemoglobin less than 8 (hx TIA as per records ) Appropriate to hold Eliquis until hemoglobin stable Check orthostatic vitals, EEG RE recurrent syncope Replace potassium Stool C. difficile Left shoulder x-ray Doxycycline for sinusitis, outpatient ENT consultation if without improvement PT OT eval Nicotine patch Basal insulin adjusted for n.p.o. status, ISS BG goal 140-180 DVT prophylaxis SCDs while Eliquis on hold Full code Present on Admission?: Yes History of Present Illness Chief Complaint: Traumatic chest pain Primary Care Provider: Yoavni Arellano MD History obtained from patient and records. Medical history significant for chronic respiratory failure secondary to COPD on home O2, PAF on Eliquis, history of TIAs, hypertension, DM 2 insulin requiring, mood disorder/paranoid schizophrenia, history ongoing cocaine/alcohol/tobacco abuse, hx pancreatitis. Recent confinement last month for acute pancreatitis attributed to alcohol intake. Patient miserable since leaving the hospital. Multiple complaints as follows: Achy headache, right hand numbness, left posterior shoulder pain, worsening sinus congestion with greenish drainage, shortness of breath and achy abdominal pain. Usual diarrhea symptoms - patient unable to comment on stool color "be cause I don't look." Patient had gone back to drinking. Unhappy with PCP visit 5 days ago. Scheduled to see new PCP soon. Patient had 2 unwitnessed syncopal events at home yesterday. Patient noted urinary incontinence. Patient woke up with achy left-sided chest pain/chest wall swelling after landing on a house fan after second syncopal event. 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 Allergies Allergy/AdvReac Type Severity Reaction Status Date / Time haloperidol Allergy Severe TONGUE Verified 11/08/18 00:43 SWELLING insulin lispro Allergy Intermediate HIVES Verified 11/08/18 00:43 phenol Allergy Intermediate HIVES Verified 11/08/18 00:43 citalopram Allergy Mild ITCHING Verified 11/08/18 00:43 sulfamethoxazole Allergy Mild RASH Verified 11/08/18 00:43 trimethoprim Allergy Mild RASH Verified 11/08/18 00:43 Bactrim Allergy Unknown RASH Verified 12/01/17 16:09 Penicillins Allergy Unknown UNKNOWN Verified 11/08/18 00:43 topiramate AdvReac Severe SEIZURE Verified 11/08/18 00:43 LIKE ACTIVITY morphine AdvReac Mild HEADACHE Verified 11/08/18 00:43 oxycodone AdvReac Mild ITCH Verified 10/10/18 13:23 Margarine Allergy Severe RASH Uncoded 10/10/18 13:23 Home Medications Home Medications Medication Instructions Recorded Confirmed Type Jerson Boudreaux U-100 Insulin 60 unit SUBCUT HS 07/05/18 11/08/18 History Spiriva Respimat 2 puff INHALATION QAM 07/05/18 11/08/18 History albuterol sulfate 2.5 mg INHALATION Q4 PRN 07/05/18 11/08/18 History diltiazem HCl 300 mg PO QAM 07/05/18 11/08/18 History hydralazine 50 mg PO BID 07/05/18 11/08/18 History omeprazole 20 mg PO QAM 07/05/18 11/08/18 History trazodone 200 mg PO HS PRN 07/05/18 11/08/18 History valacyclovir 500 mg PO QAM 07/05/18 11/08/18 History valsartan 320 mg PO QAM 07/05/18 11/08/18 History Eliquis 5 mg PO QAM 09/29/18 11/08/18 History cyclobenzaprine 10 mg PO BID PRN 09/29/18 11/08/18 History lactulose [Constulose] 30 ml PO DAILY PRN 09/29/18 11/08/18 History ranitidine HCl 300 mg PO HS 09/29/18 11/08/18 History perphenazine 18 mg PO BID 10/10/18 11/08/18 History folic acid 1 mg PO QAM 30 Days #30 tab 10/13/18 11/08/18 Rx potassium chloride 10 meq PO DAILY #30 cap 10/13/18 11/08/18 Rx thiamine HCl (vitamin B1) [Vitamin 100 mg PO QAM #30 tab 10/13/18 11/08/18 Rx B-1] ergocalciferol (vitamin D2) 50,000 unit PO WK 11/08/18 11/08/18 History [Vitamin D2] gabapentin 300 mg PO TID 11/08/18 11/08/18 History hydrochlorothiazide 12.5 mg PO DAILY 11/08/18 11/08/18 History ibuprofen 800 mg PO DIRECTED PRN 11/08/18 11/08/18 History ipratropium-albuterol [Combivent 1 puff INHALATION DIRECTED 11/08/18 11/08/18 History Respimat] meclizine 12.5 mg PO DIRECTED PRN 11/08/18 11/08/18 History metformin 500 mg PO BID 11/08/18 11/08/18 History Past Med/Surg History Medical History DM type 2 (diabetes mellitus, type 2) Alcohol abuse Suicidal ideations Bronchitis (Acute) Prolonged QT interval Non-sustained ventricular tachycardia (Acute) Tobacco use disorder (Chronic) History of opioid abuse (Chronic) Cocaine abuse (Chronic) Hx of suicide attempt (Resolved) Diabetes (Chronic) COPD (chronic obstructive pulmonary disease) (Chronic) Fatty liver (Chronic) Elevated troponin (Chronic) Obesity (Chronic) HTN (hypertension) (Chronic) Sleep apnea (Chronic) Neuropathy (Chronic) Sciatic nerve disease (Chronic) Atrial fibrillation (Chronic) Epistaxis, recurrent (Chronic) Chronic generalized pain disorder (Chronic) Schizoaffective disorder, bipolar type (Chronic) COPD with exacerbation (Acute) Alcohol induced acute pancreatitis (Acute) ETOH abuse Rectal bleeding (Acute) EtOH dependence (Inactive) Surgical History H/O ovarian cystectomy (Resolved) H/O foot surgery (Resolved) Family History Other Heart disease Social History Preferred Language: Nigerian Communication Ability: Effective Visual Impairment: No Limitations 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 current occupational status: unemployed and disabled Feels Safe at Home: Yes Safety Concerns: Feels Safe At This Time Smoking Status: Current every day smoker Tobacco Type: cigarettes Cigarettes Per Day: 10 Second Hand Exposure: No Hx Alcohol Use: Yes Alcohol type: hard liquor Hx Substance Use: Yes substance use type: crack/cocaine Review of Systems Review of Systems: As per HPI, all 10 systems reviewed, all other ROS negative Physical Exam Physical Exam: GENERAL: uncomfortable, obese, lying on her right side, no respiratory distress SKIN: Normal color, warm HEENT: [place] palpebral conjunctivae, no ptosis, dry buccal mucosa NECK : Supple, short, no tenderness CHEST : Expiratory wheezes that clear with coughing, tender hematoma left chest wall BACK : Left upper back tenderness worsened by left shoulder motion HEART : RRR, no obvious murmurs ABDOMEN: distention, epigastric tenderness EXTREMITIES : minimal LE swelling, no LE tenderness, no other conspicuous deformities noted NEUROLOGIC : Coherent, no facial asymmetry, no other gross focality Results & Data Vital Signs (Past 12 Hours) Vital Signs Temp Pulse Pulse Resp BP BP Pulse Ox 11/08/18 01:09 92 H 18 122/79 92 11/08/18 00:30 93 11/08/18 00:04 37.3 C 104 H 18 122/79 97 Laboratory Results Laboratory Results WBC 4.23 K/uL (4.8-10.8) L 11/08/18 00:24 RBC 3.79 M/uL (4.2-5.4) L 11/08/18 00:24 Hgb 13.4 g/dL (12.0-16.0) 11/08/18 00:24 Hct 36.5 % (37-47) L 11/08/18 00:24 MCV 96.3 fL (80-100) 11/08/18 00:24 MCH 35.4 pg (25-34) H 11/08/18 00:24 MCHC 36.7 g/dL (32-36) H 11/08/18 00:24 RDW Std Deviation 49.0 fL (36.4-46.3) H 11/08/18 00:24 RDW Coeff of Ally 13.9 % (11.5-14.5) 11/08/18 00:24 Plt Count 142 K/uL (130-400) 11/08/18 00:24 MPV 9.7 fL (7.4-10.4) 11/08/18 00:24 Immature Gran % (Auto) 0.5 % 11/08/18 00:24 Neut % (Auto) 36.9 % 11/08/18 00:24 Lymph % (Auto) 50.1 % 11/08/18 00:24 [place] % (Auto) 10.4 % 11/08/18:24 Eos % (Auto) 1.2 % 11/08/18 00:24 Baso % (Auto) 0.9 % 11/08/18 00:24 Immature Gran # (Auto) 0.02 K/uL (0.00-0.02) 11/08/18 00:24 Neut # (Auto) 1.56 K/uL (1.4-6.5) 11/08/18 00:24 Lymph # (Auto) 2.12 K/uL (1.2-3.4) 11/08/18 00:24 [place] # (Auto) 0.44 K/uL (0.11-0.59) 11/08/18 00:24 Eos # (Auto) 0.05 K/uL (0-0.5) 11/08/18 00:24 Baso # (Auto) 0.04 K/uL (0-0.2) 11/08/18 00:24 APTT 29.6 Seconds (21.0-31.0) 11/08/18 02:15 PTT Ratio 1.1 11/08/18 02:15 Sodium 136 mmol/L (136-145) 11/08/18 00:24 Potassium 3.4 mmol/L (3.5-5.1) L 11/08/18 00:24 Chloride 100 mmol/L (98-107) 11/08/18 00:24 Carbon Dioxide 26 mmol/L (21-32) 11/08/18 00:24 Anion Gap 9.0 (3-11) 11/08/18 00:24 BUN 7 mg/dl (7-18) 11/08/18 00:24 Creatinine 0.83 mg/dl (0.6-1.2) 11/08/18 00:24 Est Cr Clr Drug Dosing 97.8 ml/min 11/08/18 00:24 Est GFR ( Amer) 92.7 05 00:24 Est GFR (Non-Af Amer) 79.9 11/08/18 00:24 BUN/Creatinine Ratio 8.6 (10-20) L 11/08/18 00:24 Glucose 167 mg/dl (70-99) H 11/08/18 00:24 Calcium 9.1 mg/dl (8.5-10.1) 11/08/18 00:24 Magnesium 1.8 mg/dl (1.8-2.4) 11/08/18 00:24 Total Bilirubin 0.2 mg/dl (0.2-1) 11/08/18 00:24 AST 97 U/L (15-37) H 11/08/18 00:24 ALT 121 U/L (12-78) H 11/08/18 00:24 Alkaline Phosphatase 122 U/L (45-117) H 11/08/18 00:24 Troponin I 0.185 ng/ml (0-0.045) H* 11/08/18 00:24 Total Protein 7.5 gm/dl (6.4-8.2) 11/08/18 00:24 Albumin 3.2 gm/dl (3.4-5.0) L 11/08/18 00:24 Globulin 4.3 gm/dl (2.5-4.0) H 11/08/18 00:24 Albumin/Globulin Ratio 0.7 (0.9-2) L 11/08/18 00:24 Lipase 981 U/L (73-393) H 11/08/18 00:24 Ethyl Alcohol mg/dL 232.6 mg/dl (0-3) H 11/08/18 00:[address] head initial read: No acute intracranial hemorrhage, chronic sinus disease CT chest initial read: Left knee chest wall subcutaneous hematoma with suspected focus of active hemorrhage; left anterior chest: Nondisplaced left anterior sixth rib fracture. No lung contusions, no hemopericardium CT abdomen pelvis initial read: High density material in small bowel loops ingested contents versus active hemorrhage. EKG as per my interpretation rate 90, LAD, LAFB, T wave flattening inferior leads (1) Pancreatitis Acute pancreatitis complication: unspecified Chronicity: acute Pancreatitis type: unspecified pancreatitis type Qualified Code(s): K85.90 - Acute pancreatitis without necrosis or infection, unspecified
[2018-11-08] MEDS ORDERED: PROMETHAZINE HCL 12.5 MG in SODIUM CHLORIDE 0.9% 50 ML IV PRN (03:41)
[2018-11-08] MEDS ORDERED: LORazepam 3 MG/6 ML VIAL IV PRN (03:46)
[2018-11-08] MEDS ORDERED: GLUCAGON FOR INJ 1 MG VIAL SQ PRN (03:46)
[2018-11-08] MEDS ORDERED: GLUCOSE 10 TABS/TUBE PO PRN (03:46)
[2018-11-08] MEDS ORDERED: CARBOHYDRATES FOR HYPOGLYCEMIA PO PRN (03:46)
[2018-11-08] MEDS ORDERED: GLUCOSE 40% GEL 15 GM TUBE PO PRN (03:46)
[2018-11-08] MEDS ORDERED: DEXTROSE 50% 50 ML SYRINGE IV PRN (03:46)
[2018-11-08] MEDS ORDERED: XOPENEX/ATROVENT 1.25mg/0.5MG NEB COMBO NEB STA (03:46)
[2018-11-08] MEDS ORDERED: LORazepam 1 MG/2 ML VIAL IV PRN (03:46)
[2018-11-08] MEDS ORDERED: LORazepam 2 MG/4 ML VIAL IV PRN (03:46)
[2018-11-08] MEDS ORDERED: IPRATROPIUM BROMIDE NEB SOLN 0.02% 2.5 ML VIAL INH STA (03:55)
[2018-11-08] MEDS ORDERED: LEVALBUTEROL 1.25MG/0.5ML NEB INH STA (03:55)
[2018-11-08] MEDS ORDERED: ACETAMINOPHEN 325 MG TAB PO PRN (03:57)
[2018-11-08] MEDS ORDERED: ATIVAN IV ALCOHOL WITHDRAWL IV SCH (04:00)
[2018-11-08 04:29] LABS: Appearance Urine Clear (Clear); Bilirubin Urine Negative (Negative); Blood Urine Negative (Negative); Color Urine Yellow; Glucose Urine UA Negative (Negative); Ketones Urine Negative (Negative); Leukocyte Esterase Urine Negative (Negative); Nitrite Urine Negative (Negative); Protein Urine Negative (Negative); Specific Gravity Urine 1.042 (1.000-1.030); Urobilinogen Urine Negative (Negative); pH Urine 5.5 (4.5-7.5)
[2018-11-08] MEDS ORDERED: CYCLOBENZAPRINE HCL 10 MG TAB PO PRN (04:45)
[2018-11-08] MEDS ORDERED: TRAZODONE HCL 100 MG TAB PO PRN (04:45)
[2018-11-08] MEDS ORDERED: LACTULOSE SYRUP 20 GM/30 ML UDC PO PRN (04:45)
[2018-11-08] MEDS ORDERED: INSULIN GLARGINE SOLOSTAR 100 UNITS/ML 3 ML PEN SQ STA (04:47)
[2018-11-08 04:53] LABS: Amphetamines+Metham, Urine Neg (Neg); Barbiturates, Urine Neg (Neg); Benzodiazepine, Urine Neg (Neg); Cocaine, Urine Pos (Neg); MDMA (Ecstacy), Urine Neg (Neg); Methadone, Urine Neg (Neg); Opiate, Urine Neg (Neg); Phencyclidine, Urine Neg (Neg)
[2018-11-08] MEDS ORDERED: MAGNESIUM SULFATE / D5W 1 GM/100 ML BAG IV ONE (05:03)
[2018-11-08] MEDS: HYDROCODONE/ACETAMOPHEN 5/325MG TAB PO PRN ×3 (05:26→16:43)
[2018-11-08] MEDS: NICOTINE 14 MG/24 HR PATCH TD SCH (05:43)
[2018-11-08] MEDS: LIDOCAINE 5% 1 PATCH TD SCH ×2 (05:44→07:56)
[2018-11-08] MEDS: LACTATED RINGER'S 1,000 ML IV SCH ×3 (05:45→22:37)
[2018-11-08] MEDS: INSULIN ASPART 100 UNITS/ML 3 ML PEN SC SCH ×5 (05:52→20:57)
[2018-11-08] MEDS: dilTIAZem HCL 300 MG CAPCR PO SCH (05:54)
[2018-11-08] MEDS: GABAPENTIN 300 MG CAP PO SCH ×3 (05:55→20:53)
--- NOTE | 2018-11-08 06:14 | XRay Report ---
XR chest 1V portable CLINICAL HISTORY: Chest pain status post trauma COMPARISON STUDY: 10/11/2018 FINDINGS: The heart is the upper limits of normal in size. There is no failure. There is no focal pul monary consolidation. There are no pleural effusions. There is no pneumothorax.[ IMPRESSION: No active disease in the chest. Electronically signed by: Dawood Diaz M.D. 11/08/2018 6:13 AM
--- NOTE | 2018-11-08 06:18 | XRay Report ---
XR shoulder LT min 2V routine CLINICAL HISTORY: Left shoulder pain COMPARISON: 03/06/2018 DISCUSSION: There are advanced osteoarthritic changes with joint space narrowing and osteophyte forma tion. There is a persistent ossific density at the level of the greater tuberosity, unchanged from th e prior study. There are no acute fractures. There is no dislocation. IMPRESSION: Chronic and advanced arthritic changes. No acute fractures. Electronically signed by: Dawood Diaz M.D. 11/08/2018 6:17 AM
[2018-11-08] MEDS: HYDROmorphone INJ 0.5 MG/0.5 ML SYR IV PRN ×3 (06:23→20:46)
--- NOTE | 2018-11-08 07:16 | CT Scan Report ---
CT head/brain wo con CLINICAL HISTORY: Severe headache COMPARISON STUDY: 10/10/2018 TECHNIQUE: Axial CT of the brain is performed from the vertex to the skull base. IV contrast was not administered for this examination. A dose lowering technique was utilized adhering to the principles of ALARA. CT DOSE: 537.48 mGy.cm FINDINGS: No intra or extra-axial mass lesions are visualized. There is no CT evidence of acute cortical infarc tion. There is no evidence of midline shift. There is no acute hemorrhage. No calvarial fractures ar e visualized. There are patchy white matter hypodensities likely on a small vessel basis. There is no evidence of pathologic ventricular dilatation. There is opacification the right maxilla sinus. Multiple right-sided ethmoid air cells are opacified. IMPRESSION: 1. No acute intracranial findings 2. Persistent inflammatory changes within the right maxillary and ethmoid sinuses. Electronically signed by: Dawood Diaz M.D. 11/08/2018 7:15 AM
[2018-11-08 07:20] LABS: INR 1.2 (0.9-1.1); Prothrombin Time 11.7 Seconds (9.0-12.0)
--- NOTE | 2018-11-08 07:30 | CT Scan Report ---
CT abd pelvis IV con only CLINICAL HISTORY: Worsening abdominal pain status post trauma COMPARISON STUDY: 10/10/2018 TECHNIQUE: The patient was scanned in a dynamic helical fashion during intravenous administration of 95 cc of Optiray 320. A dose lowering technique was utilized adhering to the principles of ALARA. CT DOSE: FINDINGS: Lower chest: The heart is normal in size and configuration, without pericardial effusion. The lung ba ses and pleural spaces are clear. Liver: There is severe hepatic steatosis. Gallbladder: Unremarkable. Spleen: Normal in size and attenuation. Pancreas: There is been interval resolution of the peripancreatic inflammatory changes. Adrenal glands: Unremarkable. Kidneys: There is symmetric renal cortical enhancement. The kidneys are normal in size without hydron ephrosis. Bowel: There are no transition zones indicate bowel obstruction. There is no acute diverticulitis. Th e appendix appears normal. Peritoneum: There is no intraperitoneal free air or abdominal ascites. Vasculature: The abdominal aorta is normal in course and caliber. Adenopathy: None. Pelvic viscera: The bladder, and pelvic viscera are unremarkable. Skeletal structures: No destructive osseous lesions are seen. IMPRESSION: 1. No acute intra-abdominal or pelvic findings 2. Severe hepatic steatosis 3. No evidence bowel obstruction. No evidence of free air 4. Normal appendix. No evidence of acute diverticulitis. Electronically signed by: Dawood Diaz M.D. 11/08/2018 7:28 AM
--- NOTE | 2018-11-08 07:38 | CT Scan Report ---
CT OF THE CHEST WITH IV CONTRAST CLINICAL HISTORY: Chest pain status post trauma COMPARISON STUDY: September 29, 2018 TECHNIQUE: Following the IV administration of 95 mL of Optiray-320, CT of the thorax was performed f rom the thoracic inlet to the lung bases. Images are reviewed in the axial, sagittal, and coronal berna jonathan. IV contrast was administered without complication. A dose lowering technique was utilized adher ing to the principles of ALARA. CT DOSE: 3618.06 mGy.cm FINDINGS: Thyroid: Imaged portions of the thyroid gland are normal in appearance. Thoracic aorta: The thoracic aorta is normal in course and caliber, noting standard 3-vessel arch bonnie little. No aneurysm or dissection is seen. Pulmonary vasculature: The pulmonary trunk is normal in caliber. There are no central filling defects identified to suggest pulmonary embolus. Note that this examination was not protocoled for the evalu ation of pulmonary emboli. HEART: The heart is normal in size and configuration, without pericardial effusion. Lungs and pleural spaces: There is no pneumothorax. There are no pleural effusions. There is no focal pulmonary consolidation. There is a solid 3 mm right middle lobe pulmonary nodule. In a low risk pat ient, no further follow-up is indicated. Mediastinum: There is no pathologic adenopathy. There is no evidence for hematoma. Katie: There is no nodes of pathologic hilar adenopathy Axilla: There is no nodes of pathologic axillary lymphadenopathy Upper abdomen: There is hepatic steatosis Skeletal structures: There is an age-indeterminate nondisplaced fracture the left sixth anterior rib. There is edema within the left upper anterior chest wall soft tissues with associated skin thickenin g. The findings are consistent with a chest wall contusion. There is a linear hyperdense focus, suspi cious for active hemorrhage. IMPRESSION: 1. Left anterior chest wall contusion, with probable active bleeding 2. Age-indeterminate nondisplaced fracture the left sixth anterior rib. No evidence of pneumothorax 3. No evidence of pulmonary contusion 4. Hepatic steatosis Electronically signed by: Dawood Diaz M.D. 11/08/2018 7:36 AM
--- NOTE | 2018-11-08 07:40 | CT Scan Report ---
CT thoracic spine wo con CT DOSE: CLINICAL HISTORY: Left upper back pain status post trauma TECHNIQUE: Helical images were acquired in the transverse plane. Sagittal and coronal reformatted alicia ges were acquired. A dose lowering technique was utilized adhering to the principles of ALARA. COMPARISON STUDY: None. FINDINGS: There are no pleural effusions. There is no evidence of pulmonary contusion. There are no f indings to indicate a paraspinal hematoma. No acute fractures or traumatic subluxations are visualize d. There are mild multilevel degenerative changes. IMPRESSION: No acute fractures or traumatic subluxations identified. Electronically signed by: Dawood Diaz M.D. 11/08/2018 7:38 AM
[2018-11-08] MEDS: FOLIC ACID 1 MG TAB PO SCH (07:54)
[2018-11-08] MEDS: THIAMINE HCL 100 MG TAB PO SCH (07:55)
[2018-11-08] MEDS: PERPHENAZINE 2 MG TABLET PO SCH ×2 (07:55→20:56)
[2018-11-08] MEDS: PANTOprazole 40 MG TAB PO SCH (07:55)
[2018-11-08] MEDS: HydrALAZINE TAB 50 MG TAB PO SCH ×2 (07:56→20:55)
[2018-11-08] MEDS: TIOTROPIUM BROMIDE 5 PUFF/90 MCG INH INH SCH (08:00)
[2018-11-08] MEDS ORDERED: DOXYCYCLINE HYCLATE 100 MG in DEXTROSE 5% 100 ML IV STA (08:26)
[2018-11-08] MEDS: SODIUM CHLORIDE 0.65% NA SOLN 45 ML (OCEAN) SCH ×3 (09:17→20:53)
--- NOTE | 2018-11-08 10:36 | Hospitalist Progress Note ---
Date of Service November 08, 2018 Assessment & Plan (1) Abdominal pain: (2) Pancreatitis: Multiple admission for recurrent pancreatitis related to alcohol abuse Present on admission with abdominal pain CT abd/pelvis showed no acute intra-abdominal or pelvic findings and interval resolution of the peripancreatic inflammatory changes. Lipase on admission about 1K Received IVF Will continue gentle IV hydration Will start on clear liquid diet GI consulted Repeat lipase in am Continue pain control (3) Syncope: Possible related to alcohol abuse and cocaine abuse Need to r/o any seizure since pt not compliant with med such as gabapentin that can lead to seizure if stops suddenly CT head showed no acute intracranial findings No focal neuro deficit on exam Will continue monitor (4) Elevated troponin: Chronic elevated troponin No ischemic changes on EKG Troponin trending down Last ECHO on 12/15 showed no wall motion abnormality with EF 55-60 % (5) Alcohol intoxication: (6) Cocaine abuse: Alcohol level on admission 232 and UDS positive cocaine Continue home dose gabapentin On alcohol withdraw protocol with Ativan Receive banana bag Continue thiamine and folic acid Monitor for signs of alcohol withdrawn Counseling on alcohol cessation and cocaine abuse Agreed to go for inpatient alcohol rehab treatment (7) Transaminitis: Possible related to alcohol AST 97 and ALT [address] abdomen/pelvis showed severe steatosis Monitor liver enzymes (8) Chest wall contusion: Due to trauma from the fall during syncopal episode CT chest showed Left anterior chest wall contusion, with probable active bleeding and Age-indeterminate nondisplaced fracture the left sixth anterior rib Continue pain control Monitor H/H Hold Eliquis for now COPD Continue oxygen supplement and spiriva Continue neb treatment Hypokalemia K 3.4 today K replaced Monitor BMP Sinusitis CT head showed persistent inflammatory changes within the right maxillary and ethmoid sinuses. On doxycycline BID Continue monitor Neck pain Will get xray of the neck Continue pain control HTN BP stable Continue Vasalrtan and hydralazine Monitor BP PAF Rate controlled on Diltiazem Eliquis on hold due to chest wall hematoma High risk of falls due to alcohol abuse Counseling pt not to drink alcohol while on Eliquis due to risk of fall that can lead to intracranial bleeding or internal organs bleeding Schizoaffective disorder, bipolar type Denies any suicidal thought or hallucination Follow up with outpatient psych Tobacco abuse Counseling on smoking cessation DVT px Eliquis on hold due to chest wall hematoma on SCDs CODE status Full code Disposition Will discharge home once medically stable Subjective Pt was seen and examined Lying in bed with no distress Pt said that she is having left shoulder tenderness and neck pain Pt said she drinks alcohol with his brother In the last admission i told her to stop doing drug and drinking alcohol She understands the complication of drinking or doing cocaine while on blood thinner I told her that one day she is going to pass out and fall that will lead to intracranial bleeding if she does stop drinking alcohol or doing drug She said that this time she is willing to quit and go to alcohol rehab She said that she is hungry and would like to try clear liquid she has not been using her oxygen because she said that i told her in the last admission that the oxygen will cause her to have fluid in her brain I told her that i never mentioned and that statement is not correct and she should use her oxygen as directed She said that she had a lump in her back but cannot locate it I checked her back and no lump found Physical Exam Physical Exam: General- No acute distress Head- atraumatic Eyes- PERRL, EOMI, ENT- oropharynx clear Neck- supple, no JVD Lungs- Mild wheezing on expiratory Heart- regular rhythm; no murmur Chest- Left chest wall tenderness with hematoma Abdomen- normal bowel sounds, soft, obese Extremities- no calf tenderness Neuro- alert, oriented x 3; PERRL, EOMI; no facial palsy; no dysarthria Skin- warm & dry Results & Data Vital Signs (Past 12 Hours) Vital Signs Temp Pulse Pulse Resp BP BP Pulse Ox 11/08/18 07:46 89 11/08/18 07:00 36.8 C 83 20 123/67 91 11/08/18 06:04 36.9 C 94 H 16 138/86 93 11/08/18 03:24 92 H 16 138/78 98 11/08/18 02:49 88 18 138/78 98 11/08/18 01:09 92 H 18 122/79 92 11/08/18 00:30 93 11/08/18 00:04 37.3 C 104 H 18 122/79 97 (1) Alcohol intoxication Complication of substance-induced condition: uncomplicated Qualified Code(s): F10.920 - Alcohol use, unspecified with intoxication, uncomplicated (2) Pancreatitis Acute pancreatitis complication: unspecified Chronicity: acute Pancreatitis type: unspecified pancreatitis type Qualified Code(s): K85.90 - Acute pancreatitis without necrosis or infection, unspecified (3) Chest wall contusion Encounter type: initial encounter Laterality: unspecified laterality Qualified Code(s): S20.219A - Contusion of unspecified front wall of thorax, initial encounter (4) Abdominal pain Abdominal location: unspecified location Qualified Code(s): R10.9 - Unspecified abdominal pain
[2018-11-08] MEDS: ALBUT/IPRATROP 3MG/0.5MG NEB 3 ML VIAL NEB SCH ×3 (12:32→19:44)
--- NOTE | 2018-11-08 13:42 | XRay Report ---
XR cervical spine 2 or 3V CLINICAL HISTORY: neck pain history of trauma COMPARISON STUDY: 02/25/2017 FINDINGS: No acute fractures or subluxations are visualized. There is poor visualization of C7 verteb ra. There are multilevel degenerative changes most pronounced the C6-7 level. There is slight loss in height of several cervical vertebra, finding unchanged from the prior study and felt to be chronic. IMPRESSION: 1. Technically limited study 2. No fractures or subluxations identified on conventional radiographic imaging 3. Degenerative changes most pronounced the C6-7 level. Electronically signed by: Dawood Diaz M.D. 11/08/2018 1:41 PM
[2018-11-08 18:14] LABS: Hematocrit (blood only) 33.6 % (37-47)
[2018-11-08] MEDS: DOXYCYCLINE HYCLATE 100 MG CAP PO SCH (20:54)
[2018-11-09] MEDS: HYDROCODONE/ACETAMOPHEN 5/325MG TAB PO PRN ×3 (00:25→16:10)
[2018-11-09] MEDS: HYDROmorphone INJ 0.5 MG/0.5 ML SYR IV PRN ×2 (06:49→19:22)
[2018-11-09] MEDS: ALBUT/IPRATROP 3MG/0.5MG NEB 3 ML VIAL NEB SCH ×4 (07:02→19:39)
[2018-11-09 08:08] LABS: Hematocrit (blood only) 34.7 % (37-47); Mean Corpuscular Hgb Conc 34.6 g/dL (32-36); Mean Corpuscular Volume 99.4 fL (80-100); Mean Platelet Volume 9.7 fL (7.4-10.4); Platelet Count 123 K/uL (130-400); RDW Coefficient of Variation 14.2 % (11.5-14.5); Red Blood Count 3.49 M/uL (4.2-5.4); White Blood Count 3.97 K/uL (4.8-10.8)
[2018-11-09] MEDS: LACTATED RINGER'S 1,000 ML IV SCH ×3 (08:50→21:47)
[2018-11-09 08:51] LABS: BUN Creatinine Ratio 6.9 (10-20); Calcium 9.1 mg/dl (8.5-10.1); Creatinine Clr Calc Pharmacy 158.7 ml/min; Est GFR (African American) 125.5; Est GFR (Non-African American) 108.3; Potassium 3.7 mmol/L (3.5-5.1)
[2018-11-09] MEDS: THIAMINE HCL 100 MG TAB PO SCH (08:52)
[2018-11-09] MEDS: GABAPENTIN 300 MG CAP PO SCH ×3 (08:52→20:39)
[2018-11-09] MEDS: PANTOprazole 40 MG TAB PO SCH (08:52)
[2018-11-09] MEDS: HydrALAZINE TAB 50 MG TAB PO SCH ×2 (08:52→20:39)
[2018-11-09] MEDS: NICOTINE 14 MG/24 HR PATCH TD SCH (08:52)
[2018-11-09] MEDS: DOXYCYCLINE HYCLATE 100 MG CAP PO SCH ×2 (08:53→20:39)
[2018-11-09] MEDS: VALSARTAN 80 MG TAB PO SCH (08:53)
[2018-11-09] MEDS: dilTIAZem HCL 300 MG CAPCR PO SCH (08:53)
[2018-11-09 08:54] LABS: Albumin Globulin Ratio 0.8 (0.9-2); Bilirubin,Total 0.6 mg/dl (0.2-1); Globulin 3.7 gm/dl (2.5-4.0); Total Protein 6.7 gm/dl (6.4-8.2)
[2018-11-09] MEDS: LIDOCAINE 5% 1 PATCH TD SCH ×2 (08:54→09:04)
[2018-11-09] MEDS: INSULIN GLARGINE SOLOSTAR 100 UNITS/ML 3 ML PEN SQ SCH (08:54)
[2018-11-09] MEDS: FOLIC ACID 1 MG TAB PO SCH (08:55)
[2018-11-09] MEDS: INSULIN ASPART 100 UNITS/ML 3 ML PEN SC SCH ×4 (08:55→20:41)
[2018-11-09] MEDS: SODIUM CHLORIDE 0.65% NA SOLN 45 ML (OCEAN) SCH ×3 (08:56→20:40)
[2018-11-09] MEDS: TIOTROPIUM BROMIDE 5 PUFF/90 MCG INH INH SCH (08:57)
[2018-11-09] MEDS: PERPHENAZINE 2 MG TABLET PO SCH ×2 (08:57→20:40)
[2018-11-09] MEDS ORDERED: ERGOCALCIFEROL 50,000 UNITS CAP PO SCH (09:00)
[2018-11-09] MEDS ORDERED: predniSONE 20 MG TAB PO ONE (09:45)
--- NOTE | 2018-11-09 10:50 | Gastrointestinal Consultation ---
Date of Consultation November 09, 2018 Assessment & Plan (1) Alcohol abuse: (2) Cocaine abuse: (3) Pancreatitis: Pt is a 53 y/o female seen for recurrent pancreatitis, likely from ongoing ETOH, cocaine, tobacco abuses. - Increase LR to 150ml/hr - CL diet; advance slowly as tolerated to low fat diabetic diet - Obtain MRCP to r/o biliary stone. Wasnt' done at last admission as she cannot fit on the older machine. - Strongly advised ETOH, cocaine uses cessation. I offered psych consult as pt had been abusing these substances for insomnia, depression/anxiety. She refused - DT protocol Supervising Physician Co-Signing Physician Notes Attending attestation I have seen, examined this patient, and agree with the findings and above by our mid-level provider GIA Patten. -Alcoholic induced pancreatitis without complication including no signs of complication on CT scan, or concerns of biliary obstruction. No endorgan dysfunction -Polysubstance abuse -Improved and tolerating liquids -Likely needs inpatient rehab for polysubstance abuse History of Present Illness Reason for Consultation: Recurrent pancreatitis Requesting Physician: Dr. Anastasiya Waldrop Attending Physician: Dr. Amor Howe History of Present Illness Pt is a 53 y/o female w PMHx of COPD, Afib on Eliquis, hx of TIAs, HTN, DM II, schizophrenia, ongoing tobacco, ETOH and cocaine abuses who presented to ED yesterday w multiple compaints including CARSON, R hand numbness, L shoulder pain, sinus congestion, SOB, abd pain. Also reported syncopal episodes (unwitnessed), noted urinary incontinence afterwards and falling on house fan on L side; CT chest showed L chest wall contusion w L rib fracture. She was just admitted last month for acute pancreatitis suspected to be ETOh use. She continues to drink ETOH, about 1pint of aparna a day. + tobacco uses and cocaine use [address] abd/pelvis w contrast w/o acute findings, decreased pancreas inflammation, + severe hepatic steatosis. Labs showed no signs of leukocytosis, BUN/Cr normal. LFTs up: Tbili 0.6, AST 40, ALT 79, AP 97, Lipase 984. She is c/o generalized body aches but denies any abd pain, n/v. Tolerated CL diet this AM. Allergies Allergy/AdvReac Type Severity Reaction Status Date / Time haloperidol Allergy Severe TONGUE Verified 11/08/18 00:43 SWELLING insulin lispro Allergy Intermediate HIVES Verified 11/08/18 00:43 phenol Allergy Intermediate HIVES Verified 11/08/18 00:43 citalopram Allergy Mild ITCHING Verified 11/08/18 00:43 sulfamethoxazole Allergy Mild RASH Verified 11/08/18 00:43 trimethoprim Allergy Mild RASH Verified 11/08/18 00:43 Bactrim Allergy Unknown RASH Verified 12/01/17 16:09 Penicillins Allergy Unknown UNKNOWN Verified 11/08/18 00:43 topiramate AdvReac Severe SEIZURE Verified 11/08/18 00:43 LIKE ACTIVITY morphine AdvReac Mild HEADACHE Verified 11/08/18 00:43 oxycodone AdvReac Mild ITCH Verified 10/10/18 13:23 Margarine Allergy Severe RASH Uncoded 10/10/18 13:23 Home Medications Home Medications Medication Instructions Recorded Confirmed Type Ameliaaglar TawanaikPen U-100 Insulin 60 unit SUBCUT HS 07/05/18 11/08/18 History Spiriva Respimat 2 puff INHALATION QAM 07/05/18 11/08/18 History albuterol sulfate 2.5 mg INHALATION Q4 PRN 07/05/18 11/08/18 History diltiazem HCl 300 mg PO QAM 07/05/18 11/08/18 History hydralazine 50 mg PO BID 07/05/18 11/08/18 History omeprazole 20 mg PO QAM 07/05/18 11/08/18 History trazodone 200 mg PO HS PRN 07/05/18 11/08/18 History valacyclovir 500 mg PO QAM 07/05/18 11/08/18 History valsartan 320 mg PO QAM 07/05/18 11/08/18 History Eliquis 5 mg PO QAM 09/29/18 11/08/18 History cyclobenzaprine 10 mg PO BID PRN 09/29/18 11/08/18 History lactulose [Constulose] 30 ml PO DAILY PRN 09/29/18 11/08/18 History ranitidine HCl 300 mg PO HS 09/29/18 11/08/18 History perphenazine 18 mg PO BID 10/10/18 11/08/18 History folic acid 1 mg PO QAM 30 Days #30 tab 10/13/18 11/08/18 Rx potassium chloride 10 meq PO DAILY #30 cap 10/13/18 11/08/18 Rx thiamine HCl (vitamin B1) [Vitamin 100 mg PO QAM #30 tab 10/13/18 11/08/18 Rx B-1] ergocalciferol (vitamin D2) 50,000 unit PO WK 11/08/18 11/08/18 History [Vitamin D2] gabapentin 300 mg PO TID 11/08/18 11/08/18 History hydrochlorothiazide 12.5 mg PO DAILY 11/08/18 11/08/18 History ibuprofen 800 mg PO DIRECTED PRN 11/08/18 11/08/18 History ipratropium-albuterol [Combivent 1 puff INHALATION DIRECTED 11/08/18 11/08/18 History Respimat] meclizine 12.5 mg PO DIRECTED PRN 11/08/18 11/08/18 History metformin 500 mg PO BID 11/08/18 11/08/18 History Patient History Medical History DM type 2 (diabetes mellitus, type 2) Alcohol abuse Suicidal ideations Bronchitis (Acute) Prolonged QT interval Non-sustained ventricular tachycardia (Acute) Tobacco use disorder (Chronic) History of opioid abuse (Chronic) Cocaine abuse (Chronic) Hx of suicide attempt (Resolved) Diabetes (Chronic) COPD (chronic obstructive pulmonary disease) (Chronic) Fatty liver (Chronic) Elevated troponin (Chronic) Obesity (Chronic) HTN (hypertension) (Chronic) Sleep apnea (Chronic) Neuropathy (Chronic) Sciatic nerve disease (Chronic) Atrial fibrillation (Chronic) Epistaxis, recurrent (Chronic) Chronic generalized pain disorder (Chronic) Schizoaffective disorder, bipolar type (Chronic) COPD with exacerbation (Acute) Alcohol induced acute pancreatitis (Acute) ETOH abuse Rectal bleeding (Acute) EtOH dependence (Inactive) Surgical History H/O ovarian cystectomy (Resolved) H/O foot surgery (Resolved) Family History Other Heart disease Social History Preferred Language: Faroese Communication Ability: Effective Visual Impairment: No Limitations Pig Breeder Required: No Beliefs That Will Affect Care: None marital status: single Current Living Situation: Family Current Living Situation Comment: lives with brothers? current occupational status: unemployed and disabled Feels Safe at Home: Yes Safety Concerns: Feels Safe At This Time Smoking Status: Current every day smoker Tobacco Type: cigarettes Cigarettes Per Day: 10 Second Hand Exposure: No Hx Alcohol Use: Yes Alcohol type: hard liquor Hx Substance Use: Yes substance use type: crack/cocaine Review of Systems Review of Systems: All systems reviewed & are unremarkable except as noted in HPI & below Physical Exam Constitutional: WD/WN, vitals as above well groomed, cooperative and comfortable Eyes: PERRL, conjunctivae normal, anicteric sclerae ENMT: external ear and nose normal, oropharynx normal Respiratory: normal respiratory effort, lungs clear to auscultation Cardiovascular: RRR, no murmur, no edema Gastrointestinal (Abdomen): normal bowel sounds, soft, nontender, no hepatosplenomegaly Skin: no jaundice L chest wall hematoma Neurologic: Motor/Sensory: no asterixis Psychiatric: A+Ox3, euthymic affect Lymphatic: no lymphedema Results & Data Vital Signs (Past 12 Hours) Vital Signs Temp Pulse Pulse Resp BP BP Pulse Ox 11/09/18 07:19 36.9 C 81 22 153/96 H 92 11/09/18 07:02 81 20 95 11/09/18 04:30 37.3 C 91 H 20 160/80 H 95 11/09/18 00:00 76 11/08/18 22:46 37.2 C 76 22 124/70 96 (1) Pancreatitis Acute pancreatitis complication: unspecified Chronicity: acute Pancreatitis type: unspecified pancreatitis type Qualified Code(s): K85.90 - Acute pancreatitis without necrosis or infection, unspecified
--- NOTE | 2018-11-09 11:01 | Procedure Note ---
EEG Procedure Note Date of Service November 09, 2018 Start / End Times Start Time: 0900 End Time: 0930 Referring Physician Derrick Benson MD History possible seizure Home Medication List Home Medications Medication Instructions Recorded Confirmed Type Jerson Boudreaux U-100 Insulin 60 unit SUBCUT HS 07/05/18 11/08/18 History Spiriva Respimat 2 puff INHALATION QAM 07/05/18 11/08/18 History albuterol sulfate 2.5 mg INHALATION Q4 PRN 07/05/18 11/08/18 History diltiazem HCl 300 mg PO QAM 07/05/18 11/08/18 History hydralazine 50 mg PO BID 07/05/18 11/08/18 History omeprazole 20 mg PO QAM 07/05/18 11/08/18 History trazodone 200 mg PO HS PRN 07/05/18 11/08/18 History valacyclovir 500 mg PO QAM 07/05/18 11/08/18 History valsartan 320 mg PO QAM 07/05/18 11/08/18 History Eliquis 5 mg PO QAM 09/29/18 11/08/18 History cyclobenzaprine 10 mg PO BID PRN 09/29/18 11/08/18 History lactulose [Constulose] 30 ml PO DAILY PRN 09/29/18 11/08/18 History ranitidine HCl 300 mg PO HS 09/29/18 11/08/18 History perphenazine 18 mg PO BID 10/10/18 11/08/18 History folic acid 1 mg PO QAM 30 Days #30 tab 10/13/18 11/08/18 Rx potassium chloride 10 meq PO DAILY #30 cap 10/13/18 11/08/18 Rx thiamine HCl (vitamin B1) [Vitamin 100 mg PO QAM #30 tab 10/13/18 11/08/18 Rx B-1] ergocalciferol (vitamin D2) 50,000 unit PO WK 11/08/18 11/08/18 History [Vitamin D2] gabapentin 300 mg PO TID 11/08/18 11/08/18 History hydrochlorothiazide 12.5 mg PO DAILY 11/08/18 11/08/18 History ibuprofen 800 mg PO DIRECTED PRN 11/08/18 11/08/18 History ipratropium-albuterol [Combivent 1 puff INHALATION DIRECTED 11/08/18 11/08/18 History Respimat] meclizine 12.5 mg PO DIRECTED PRN 11/08/18 11/08/18 History metformin 500 mg PO BID 11/08/18 11/08/18 History Inpatient Medication List Hydrocodone Bitart/Acetaminophen ([place] 5/325) 1 tab PO Q4H PRN PRN Reason: Pain Stop: 11/22/18 02:19 Last Admin: 11/09/18 09:09 Dose: 1 tab Documented by: [id number] Admin: 11/09/18 00:25 Dose: 1 tab Documented by: [id number] Admin: 11/08/18 16:43 Dose: 1 tab Documented by: [id number] Admin: 11/08/18 09:35 Dose: 1 tab Documented by: [id number] Admin: 11/08/18 05:26 Dose: 1 tab Documented by: [id number] Albuterol (Duoneb) 3 ml NEB QIDR [facility] Stop: 12/08/18 11:59 Last Admin: 11/09/18 10:50 Dose: Not Given Documented by: [id number] Admin: 11/09/18 07:02 Dose: 3 ml Documented by: [id number] Admin: 11/08/18 19:44 Dose: 3 ml Documented by: [id number] Admin: 11/08/18 14:53 Dose: 3 ml Documented by: [id number] Admin: 11/08/18 12:32 Dose: 3 ml Documented by: [id number] Diltiazem [facility] (Card[facility]em Cd) [facility] [place] Stop: 12/08/18 04:44 Last Admin: 11/09/18 08:53 Dose: 300 mg Documented by: [id number] Admin: 11/08/18 05:54 Dose: 300 mg Documented by: [id number] Diphenhydramine HCl (Benadryl Capsule) 25 mg PO Q8H PRN PRN Reason: Itching Stop: 12/08/18 10:12 Last Admin: 11/08/18 12:36 Dose: 25 mg Documented by: [id number] Doxycycline Hyclate (Vibramycin) 100 mg PO BID [facility]; Protocol Stop: 11/18/18 08:59 Last Admin: 11/09/18 08:53 Dose: 100 mg Documented by: [id number] Admin: 11/08/18 20:54 Dose: 100 mg Documented by: [id number] Ergocalciferol (Vitamin D2) 50,000 units PO Mo@0900 [facility] Stop: 12/09/18 08:59 Last Admin: 11/09/18 08:51 Dose: 50,000 units Documented by: [id number] Folic Acid (Folvite) 1 mg PO QAM [facility] Stop: 12/08/18 08:59 Last Admin: 11/09/18 08:55 Dose: 1 mg Documented by: [id number] Admin: 11/08/18 07:54 Dose: 1 mg Documented by: [id number] Gabapentin (Neurontin) 300 mg PO TID [facility] Stop: 12/08/18 04:44 Last Admin: 11/09/18 08:52 Dose: 300 mg Documented by: [id number] Admin: 11/08/18 20:53 Dose: 300 mg Documented by: [id number] Admin: 11/08/18 15:01 Dose: 300 mg Documented by: [id number] Admin: 11/08/18 05:55 Dose: 300 mg Documented by: [id number] Hydralazine HCl (Apresoline) 50 mg PO BID [facility] Stop: 12/08/18 08:59 Last Admin: 11/09/18 08:52 Dose: 50 mg Documented by: [id number] Admin: 11/08/18 20:55 Dose: 50 mg Documented by: [id number] Admin: 11/08/18 07:56 Dose: 50 mg Documented by: [id number] Hydromorphone HCl (Dilaudid) 0.5 mg IV Q6H PRN PRN Reason: Pain Stop: 11/22/18 03:45 Last Admin: 11/09/18 06:49 Dose: 0.5 mg Documented by: [id number] Admin: 11/08/18 20:46 Dose: 0.5 mg Documented by: [id number] Admin: 11/08/18 12:36 Dose: 0.5 mg Documented by: [id number] Admin: 11/08/18 06:23 Dose: 0.5 mg Documented by: [id number] Lactated Ringer's (Lr) 1,000 mls @ 150 mls/hr IV .Q6H40M [facility] Stop: 12/08/18 03:44 Last Infusion: 11/09/18 09:52 Dose: 150 mls/hr Documented by: [id number] Admin: 11/09/18 08:50 Dose: 100 mls/hr Documented by: [id number] Infusion: 11/09/18 08:37 Dose: 100 mls/hr Documented by: [id number] Admin: 11/08/18 22:37 Dose: 100 mls/hr Documented by: [id number] Infusion: 11/08/18 21:42 Dose: 100 mls/hr Documented by: [id number] Admin: 11/08/18 11:42 Dose: 100 mls/hr Documented by: [id number] Infusion: 11/08/18 11:42 Dose: 100 mls/hr Documented by: [id number] Infusion: 11/08/18 11:35 Dose: 100 mls/hr Documented by: [id number] Admin: 11/08/18 05:45 Dose: 150 mls/hr Documented by: [id number] Insulin Aspart (Novolog Flexpen) 0 units SC ACHS [facility] Stop: 12/08/18 03:54 Last Admin: 11/09/18 08:55 Dose: 3 units Documented by: [id number] Cosigned by: [id number] Admin: 11/08/18 20:57 Dose: Not Given Documented by: [id number] Cosigned by: [id number] Admin: 11/08/18 17:29 Dose: Not Given Documented by: [id number] Cosigned by: [id number] Admin: 11/08/18 12:00 Dose: Not Given Documented by: [id number] Cosigned by: [id number] Admin: 11/08/18 09:50 Dose: Not Given Documented by: [id number] Cosigned by: [id number] Admin: 11/08/18 05:52 Dose: Not Given Documented by: [id number] Cosigned by: [id number] Insulin Glargine (Lantus Solostar Pen) 5 units SQ DAILY [facility] Stop: 12/09/18 08:59 Last Admin: 11/09/18 08:54 Dose: 5 units Documented by: [id number] Cosigned by: [id number] Lidocaine (Lidoderm 5%) 1 patch TD QAM [facility] Stop: 12/08/18 03:39 Last Admin: 11/09/18 09:04 Dose: Not Given Documented by: [id number] Admin: 11/08/18 07:56 Dose: 1 patch Documented by: [id number] Admin: 11/08/18 05:44 Dose: 1 patch Documented by: [id number] Miscellaneous (Remove Nicoderm Patch) 1 ea N/A HS [facility]OS Stop: 12/08/18 20:59 Last Admin: 11/08/18 20:53 Dose: 1 ea Documented by: [id number] Miscellaneous (Remove Lidoderm Patch) 1 ea N/A DAILY@2100 [facility] Stop: 12/08/18 20:59 Last Admin: 11/08/18 20:53 Dose: 1 ea Documented by: [id number] Nicotine (Nicoderm Cq) 14 mg TD QAM [facility] Stop: 12/08/18 02:19 Last Admin: 11/09/18 08:52 Dose: 14 mg Documented by: [id number] Admin: 11/08/18 05:43 Dose: 14 mg Documented by: [id number] Pantoprazole Sodium (Protonix) 40 mg PO QAM [facility] Stop: 12/08/18 08:59 Last Admin: 11/09/18 08:52 Dose: 40 mg Documented by: [id number] Admin: 11/08/18 07:55 Dose: 40 mg Documented by: [id number] Perphenazine (Trilafon) 18 mg PO BID [facility] Stop: 12/08/18 08:59 Last Admin: 11/09/18 08:57 Dose: 18 mg Documented by: [id number] Admin: 11/08/18 20:56 Dose: 18 mg Documented by: [id number] Admin: 11/08/18 07:55 Dose: 18 mg Documented by: [id number] Ranitidine HCl (Zantac) 300 mg PO HS [facility] Stop: 12/08/18 20:59 Last Admin: 11/08/18 20:54 Dose: 300 mg Documented by: [id number] Sodium Chloride ([place] Nasal) 2 sprays NA TID [facility] Stop: 12/08/18 08:59 Last Admin: 11/09/18 08:56 Dose: 2 sprays Documented by: [id number] Admin: 11/08/18 20:53 Dose: 2 sprays Documented by: [id number] Admin: 11/08/18 15:01 Dose: 2 sprays Documented by: [id number] Admin: 11/08/18 09:17 Dose: 2 sprays Documented by: [id number] Thiamine HCl (Vitamin B-1) 100 mg PO QAM [facility] Stop: 12/08/18 08:59 Last Admin: 11/09/18 08:52 Dose: 100 mg Documented by: [id number] Admin: 11/08/18 07:55 Dose: 100 mg Documented by: [id number] Tiotropium [place] (Spiriva) 1 puffs INH QAM [facility] Stop: 12/08/18 08:59 Last Admin: 11/09/18 08:57 Dose: 1 puffs Documented by: [id number] Admin: 11/08/18 08:00 Dose: 1 puffs Documented by: [id number] Valsartan (Diovan) 320 mg PO QAM [facility] Stop: 12/09/18 08:59 Last Admin: 11/09/18 08:53 Dose: 320 mg Documented by: [id number] Discontinued Medications Acetaminophen (Tylenol) 650 mg PO NOW STA Stop: 11/08/18 00:56 Last Admin: 11/08/18 01:12 Dose: 650 mg Documented by: [id number] Sodium Chloride (Nss) 500 mls @ 999 mls/hr IV .Q31M [facility] Stop: 11/08/18 00:45 Last Infusion: 11/08/18 01:19 Dose: 0 mls/hr Documented by: [id number] Admin: 11/08/18 00:48 Dose: 999 mls/hr Documented by: [id number] Multivitamins 10 ml/ Thiamine HCl 100 mg/ Folic Acid 1 mg/Sodium Chloride 1,011.2 mls @ 1,011.2 mls/hr IV .Q1H [facility] Stop: 11/08/18 02:14 Last Infusion: 11/08/18 03:33 Dose: 0 mls/hr Documented by: [id number] Admin: 11/08/18 01:47 Dose: 1,011.2 mls/hr Documented by: [id number] Lorazepam (Ativan) 0.5 mg in 1 mls @ 1 mls/min IV Q4H PRN PRN Reason: Anxiety/Agitation Stop: 12/08/18 02:18 Last Admin: 11/08/18 02:27 Dose: 1 mls/min Documented by: [id number] Magnesium Sulfate/Dextrose (Magnesium Sulfate / D5w) 1 gm in 100 mls @ 100 mls/hr IV ONE ONE Stop: 11/08/18 06:02 Last Infusion: 11/08/18 07:36 Dose: 0 mls/hr Documented by: [id number] Admin: 11/08/18 06:17 Dose: 100 mls/hr Documented by: [id number] Doxycycline Hyclate 100 mg/ (Dextrose) 110 mls @ 50 mls/hr IV NOW STA Stop: 11/08/18 10:37 Last Infusion: 11/08/18 11:35 Dose: 0 mls/hr Documented by: [id number] Admin: 11/08/18 09:17 Dose: 50 mls/hr Documented by: [id number] Insulin Glargine (Lantus Solostar Pen) 5 units SQ NOW STA Stop: 11/08/18 04:48 Last Admin: 11/08/18 05:53 Dose: 5 units Documented by: [id number] Cosigned by: [id number] Ioversol (Optiray 320 100ml) 95 ml IV ONCE PRN PRN Reason: Interaction Checking Stop: 11/12/18 02:27 Last Admin: 11/08/18 02:28 Dose: 1 ml Documented by: [id number] Ipratropium [place] (Atrovent 0.02% 0.5mg/2.5ml) 0.5 mg INH NOW STA Stop: 11/08/18 03:56 Last Admin: 11/08/18 04:54 Dose: Not Given Documented by: [id number] Ketorolac Tromethamine (Toradol) 15 mg IV NOW STA Stop: 11/08/18 02:24 Last Admin: 11/08/18 07:36 Dose: Not Given Documented by: [id number] Ketorolac Tromethamine (Toradol) Confirm Administered Dose 15 mg .ROUTE .STK-MED ONE Stop: 11/08/18 02:19 Last Admin: 11/08/18 02:22 Dose: 15 mg Documented by: [id number] Levalbuterol HCl (Xopenex 1.25mg/0.5ml Neb) 1.25 mg INH NOW STA Stop: 11/08/18 03:56 Last Admin: 11/08/18 04:54 Dose: Not Given Documented by: [id number] Potassium Chloride (Klor-Con M20) 40 meq PO NOW STA Stop: 11/08/18 01:37 Last Admin: 11/08/18 01:47 Dose: 40 meq Documented by: [id number] Prednisone (Prednisone) 20 mg PO NOW ONE Stop: 11/09/18 09:46 Last Admin: 11/09/18 10:33 Dose: 20 mg Documented by: [id number] Description This is a 21 electrode EEG with a single channel dedicated to limited EKG. The electrodes were placed in accordance with the International 10-20 system. The above tracing during wakefulness shows a normal backgrouond alpha rhythm, a normal central theta and a normal anterior beta activity Photic stimulation produced no abnormal activation No potentially epileptogenic activity is seen Interpretation Normal waking eeg Clinical Correlation Normal eeg without evidence for a focal or generalized encephalopathy or potentially epileptogenic activity Yovani Ballard MD
--- NOTE | 2018-11-09 13:47 | Hospitalist Progress Note ---
Date of Service November 09, 2018 Assessment & Plan (1) Abdominal pain: (2) Pancreatitis: Multiple admission for recurrent pancreatitis related to alcohol abuse Present on admission with abdominal pain CT abd/pelvis showed no acute intra-abdominal or pelvic findings and interval resolution of the peripancreatic inflammatory changes. Lipase on admission about 981 Repeat Lipase today 984 Continue IVF Tolerated clear liquid diet GI on board Will increase diet to low fat diet as tolerated Will try to get MRCP done, was not able to get it done last time because she could not fit Advised pt to quit drinking alcohol Continue pain control (3) Syncope: Possible related to alcohol abuse and cocaine abuse Need to r/o any seizure since pt not compliant with med such as gabapentin that can lead to seizure if stops suddenly CT head showed no acute intracranial findings No focal neuro deficit on exam EEG done showed normal eeg without evidence for a focal or generalized encephalopathy or potentially epileptogenic activity Stable (4) Elevated troponin: Chronic elevated troponin No ischemic changes on EKG Troponin trending down Last ECHO on 12/15 showed no wall motion abnormality with EF 55-60 % (5) Alcohol intoxication: (6) Cocaine abuse: Alcohol level on admission 232 and UDS positive cocaine Continue home dose gabapentin On alcohol withdraw protocol with Ativan Receive banana bag Continue thiamine and folic acid Monitor for signs of alcohol withdrawn Counseling on alcohol cessation and cocaine abuse Agreed to go for inpatient alcohol rehab treatment (7) Transaminitis: Possible related to alcohol AST 97 and ALT [address] abdomen/pelvis showed severe steatosis Liver enzymes trending down (8) Chest wall contusion: Due to trauma from the fall during syncopal episode CT chest showed Left anterior chest wall contusion, with probable active bleeding and Age-indeterminate nondisplaced fracture the left sixth anterior rib Continue pain control Monitor H/H Hold Eliquis for now COPD Continue oxygen supplement and spiriva Continue neb treatment Will add prednisone 20mg due to mild wheezing on exam Hypokalemia K 3.7 today Monitor BMP Sinusitis CT head showed persistent inflammatory changes within the right maxillary and ethmoid sinuses. On doxycycline BID Continue monitor Neck pain Xray of the neck showed degenerative changes most pronounced the C6-7 level. Continue pain control HTN BP stable Continue Vasalrtan and hydralazine Monitor BP PAF Rate controlled on Diltiazem Eliquis on hold due to chest wall hematoma High risk of falls due to alcohol abuse Counseling pt not to drink alcohol while on Eliquis due to risk of fall that can lead to intracranial bleeding or internal organs bleeding Schizoaffective disorder, bipolar type Denies any suicidal thought or hallucination Follow up with outpatient psych Tobacco abuse Counseling on smoking cessation DVT px Eliquis on hold due to chest wall hematoma on SCDs CODE status Full code Disposition Will discharge home once medically stable Subjective Pt was seen and examined Sitting in bed with no distress Pt does not complaint of any abdominal pain She said that she is having shoulder and neck pain She said that last night she slept well Tolerated clear liquid diet Denies any chest pain, palpitation and SOB Physical Exam Physical Exam: General- No acute distress Head- atraumatic Eyes- PERRL, EOMI, ENT- oropharynx clear Neck- supple, no JVD Lungs- Mild wheezing on expiratory Heart- regular rhythm; no murmur Chest- Left chest wall tenderness with hematoma Abdomen- normal bowel sounds, soft, obese Extremities- no calf tenderness Neuro- alert, oriented x 3; PERRL, EOMI; no facial palsy; no dysarthria Skin- warm & dry Results & Data Vital Signs (Past 12 Hours) Vital Signs Temp Pulse Resp BP Pulse Ox 11/09/18 11:23 36.8 C 68 20 144/76 H 97 11/09/18 07:19 36.9 C 81 22 153/96 H 92 11/09/18 07:02 81 20 95 11/09/18 04:30 37.3 C 91 H 20 160/80 H 95 (1) Alcohol intoxication Complication of substance-induced condition: uncomplicated Qualified Code(s): F10.920 - Alcohol use, unspecified with intoxication, uncomplicated (2) Pancreatitis Acute pancreatitis complication: unspecified Chronicity: acute Pancreatitis type: unspecified pancreatitis type Qualified Code(s): K85.90 - Acute pancreatitis without necrosis or infection, unspecified (3) Chest wall contusion Encounter type: initial encounter Laterality: unspecified laterality Qualified Code(s): S20.219A - Contusion of unspecified front wall of thorax, initial encounter (4) Abdominal pain Abdominal location: unspecified location Qualified Code(s): R10.9 - Unspecified abdominal pain
--- NOTE | 2018-11-09 16:10 | Magnetic Resonance Report ---
MR MRCP CLINICAL HISTORY: 53 years-old Female presenting with nausea, recent abdominal pain, clinical concern for biliary calculus. TECHNIQUE: Multisequence, multiplanar MR imaging of the abdomen was performed without the use of intr avenous contrast. Dedicated MRCP protocol was utilized. 3-D volumetric and/or maximum intensity proje ction (MIP) images were subsequently reconstructed for review. IV contrast: None. COMPARISON: CT from 11/08/2018. FINDINGS: Localizer images: Unremarkable. Lung bases: Lung base clear. Normal heart size. No pericardial or pleural effusion. Liver: Normal morphology though there is top normal liver size. Liver signal intensity compatible wit h hepatic steatosis. Biliary: Conventional intrahepatic biliary bifurcation. No intrahepatic or extrahepatic biliary ducta l dilatation. Normal gallbladder. Pancreas: Normal noncontrast appearance. Spleen: Normal noncontrast appearance. Adrenal glands: Normal noncontrast appearance. Kidneys and ureters: Normal noncontrast appearance. No hydronephrosis. Normal ureters. Bowel: Normal noncontrast appearance. No bowel obstruction. Peritoneal cavity: No free fluid. Lymph nodes: No gross lymphadenopathy allowing for noncontrast technique. Vasculature: Normal noncontrast appearance. Abdominal wall: Normal. Musculoskeletal: Normal. IMPRESSION: 1. No evidence of cholelithiasis or choledocholithiasis. No biliary ductal dilatation. 2. Hepatic steatosis. Electronically signed by: Alonso Nelson M.D. 11/09/2018 4:08 PM
[2018-11-09] MEDS ORDERED: cloNIDine HCl 0.1 MG TAB PO PRN (16:34)
[2018-11-10] MEDS: HYDROmorphone INJ 0.5 MG/0.5 ML SYR IV PRN ×2 (01:52→08:41)
[2018-11-10] MEDS: LACTATED RINGER'S 1,000 ML IV SCH ×3 (02:57→19:23)
[2018-11-10] MEDS: HYDROCODONE/ACETAMOPHEN 5/325MG TAB PO PRN ×3 (05:30→16:11)
[2018-11-10] MEDS: ALBUT/IPRATROP 3MG/0.5MG NEB 3 ML VIAL NEB SCH ×4 (07:10→19:31)
[2018-11-10 07:58] LABS: Albumin Level 2.8 gm/dl (3.4-5.0); BUN Creatinine Ratio 5.2 (10-20); Calcium 8.8 mg/dl (8.5-10.1); Creatinine Clr Calc Pharmacy 153.4 ml/min; Potassium 3.1 mmol/L (3.5-5.1)
[2018-11-10 08:05] LABS: Albumin Globulin Ratio 0.7 (0.9-2); Bilirubin,Total 0.7 mg/dl (0.2-1); Globulin 3.8 gm/dl (2.5-4.0); Total Protein 6.6 gm/dl (6.4-8.2)
[2018-11-10] MEDS ORDERED: POTASSIUM CHLORIDE 20 MEQ TABCR PO ONE (08:35)
[2018-11-10] MEDS: FOLIC ACID 1 MG TAB PO SCH (08:42)
[2018-11-10] MEDS: THIAMINE HCL 100 MG TAB PO SCH (08:42)
[2018-11-10] MEDS: dilTIAZem HCL 300 MG CAPCR PO SCH (08:42)
[2018-11-10] MEDS: DOXYCYCLINE HYCLATE 100 MG CAP PO SCH (08:43)
[2018-11-10] MEDS: VALSARTAN 80 MG TAB PO SCH (08:43)
[2018-11-10] MEDS: HydrALAZINE TAB 50 MG TAB PO SCH (08:43)
[2018-11-10] MEDS: SODIUM CHLORIDE 0.65% NA SOLN 45 ML (OCEAN) SCH ×2 (08:44→13:48)
[2018-11-10] MEDS: GABAPENTIN 300 MG CAP PO SCH ×2 (08:44→13:48)
[2018-11-10] MEDS: LIDOCAINE 5% 1 PATCH TD SCH (08:44)
[2018-11-10] MEDS: PANTOprazole 40 MG TAB PO SCH (08:44)
[2018-11-10] MEDS: INSULIN ASPART 100 UNITS/ML 3 ML PEN SC SCH ×3 (08:47→17:46)
[2018-11-10] MEDS: TIOTROPIUM BROMIDE 5 PUFF/90 MCG INH INH SCH (08:48)
[2018-11-10] MEDS: PERPHENAZINE 2 MG TABLET PO SCH (08:49)
[2018-11-10] MEDS: INSULIN GLARGINE SOLOSTAR 100 UNITS/ML 3 ML PEN SQ SCH (08:50)
[2018-11-10] MEDS: NICOTINE 14 MG/24 HR PATCH TD SCH (08:50)
[2018-11-10] MEDS ORDERED: hydroCHLOROthiazide 25 MG TAB PO SCH (09:00)
--- NOTE | 2018-11-10 09:19 | Gastroenterology Progress Note ---
Date of Service November 10, 2018 Assessment & Plan (1) Alcohol abuse: (2) Cocaine abuse: (3) Pancreatitis: Pt is a 53 y/o female seen for recurrent pancreatitis, likely from ongoing ETOH, cocaine, tobacco abuses. MRCP negative for biliary stones. Lipase trending down, LFTs continue to be normal - Low fat diabetic diet - K repletion per primary team - Strongly advised ETOH, cocaine uses cessation. I offered psych consult as pt had been abusing these substances for insomnia, depression/anxiety. She refused - DT protocol - Symptomatic management otherwise - No contraindication for DC home per GI standpoint; please recall us as needed. Supervising Physician Co-Signing Physician Notes Attending attestation I have seen, examined this patient, and agree with the findings and above by our mid-level provider GIA Patten. -Alcoholic induced pancreatitis without complication including no signs of complication on CT scan, or concerns of biliary obstruction. No endorgan dysfunction -Polysubstance abuse -Improved and tolerating diet -Likely needs inpatient rehab for polysubstance abuse Subjective Pt tolerating solid meals well, c/o not able to get her sausage for breakfast. Denies any nausea, + abd pain. Passing flatus but no BMs Noted LFTs normal, Lipase decreasing MRCP + hepatic steatosis, negative for biliary stones EEG w/o signs of seizure activity Review of Systems Review of Systems: All systems reviewed & are unremarkable except as noted in HPI & below Physical Exam Constitutional: WD/WN, vitals as above well groomed, cooperative and comfortable Eyes: PERRL, conjunctivae normal, anicteric sclerae ENMT: external ear and nose normal, oropharynx normal Respiratory: normal respiratory effort, lungs clear to auscultation Cardiovascular: RRR, no murmur, no edema Gastrointestinal (Abdomen): Inspection/Auscultation: + hypoactive bowel sounds Percussion/Palpation: + abdomen tender (RUQ) and abdomen soft Skin: no jaundice Neurologic: Motor/Sensory: no asterixis Psychiatric: A+Ox3, euthymic affect Lymphatic: no lymphedema Results & Data Vital Signs (Past 12 Hours) Vital Signs Temp Pulse Pulse Resp BP BP Pulse Ox 11/10/18 08:40 86 165/77 H 11/10/18 07:12 82 18 93 11/10/18 06:59 37.0 C 73 18 177/96 H 94 11/10/18 04:00 36.9 C 71 21 174/98 H 91 11/10/18 00:02 77 11/09/18 23:47 37.2 C 79 18 158/80 H 95 (1) Pancreatitis Acute pancreatitis complication: unspecified Chronicity: acute Pancreatitis type: unspecified pancreatitis type Qualified Code(s): K85.90 - Acute pancreatitis without necrosis or infection, unspecified
[2018-11-10] MEDS ORDERED: predniSONE 20 MG TAB PO SCH (09:30)
[2018-11-10] MEDS ORDERED: COUGH DROP (SUGAR FREE) LOZ 24 LOZ/1 BOX BUCCAL PRN (14:47)
[2018-11-10 15:52] VITALS: TEMP 98.1
[2018-11-10] MEDS ORDERED: HYDROCODONE/ACETAMOPHEN 5/325MG TAB PO PRN (17:13)
--- NOTE | 2018-11-10 17:23 | Hospitalist Progress Note ---
Date of Service November 10, 2018 Assessment & Plan (1) Abdominal pain: (2) Pancreatitis: Multiple admission for recurrent pancreatitis related to alcohol abuse Present on admission with abdominal pain CT abd/pelvis showed no acute intra-abdominal or pelvic findings and interval resolution of the peripancreatic inflammatory changes. Lipase on admission about 981 Repeat Lipase today 678 Tolerated clear liquid diet Will d/c IVF GI on board Tolerated low fat diet MRCP done showed no evidence of cholelithiasis or choledocholithiasis. No biliary ductal dilatation. Advised pt to quit drinking alcohol OK from GI standpoint to discharge home (3) Syncope: Possible related to alcohol abuse and cocaine abuse Need to r/o any seizure since pt not compliant with med such as gabapentin that can lead to seizure if stops suddenly CT head showed no acute intracranial findings No focal neuro deficit on exam EEG done showed normal eeg without evidence for a focal or generalized encephalopathy or potentially epileptogenic activity No further episode since admitting Stable (4) Elevated troponin: Chronic elevated troponin No ischemic changes on EKG Troponin trending down Last ECHO on 12/15 showed no wall motion abnormality with EF 55-60 % (5) Alcohol intoxication: (6) Cocaine abuse: Alcohol level on admission 232 and UDS positive cocaine Continue home dose gabapentin On alcohol withdraw protocol with Ativan Receive banana bag Continue thiamine and folic acid Monitor for signs of alcohol withdrawn Counseling on alcohol cessation and cocaine abuse Agreed to go for inpatient alcohol rehab treatment Information was given to patient to call for inpatient alcohol rehab (7) Transaminitis: Possible related to alcohol AST 97 and ALT [address] abdomen/pelvis showed severe steatosis Liver enzymes trending down to normal Resolved (8) Chest wall contusion: Due to trauma from the fall during syncopal episode CT chest showed Left anterior chest wall contusion, with probable active bleeding and Age-indeterminate nondisplaced fracture the left sixth anterior rib Continue pain control Hgb stable Resume Eliquis in am Monitor H/H COPD Continue neb treatment, spiriva On prednisone 20mg due to mild wheezing on exam has not been using her home oxygen supplement Advised pt to continue using oxygen at home Counseling on tobacco abuse Hypokalemia K 3.1 today K replaced Monitor BMP Sinusitis CT head showed persistent inflammatory changes within the right maxillary and ethmoid sinuses. On doxycycline BID Continue monitor Neck pain Xray of the neck showed degenerative changes most pronounced the C6-7 level. Continue pain control HTN BP stable Continue Vasalrtan and hydralazine and HCTZ Monitor BP PAF Rate controlled on Diltiazem Eliquis on hold due to chest wall hematoma High risk of falls due to alcohol abuse Counseling pt not to drink alcohol while on Eliquis due to risk of fall that can lead to intracranial bleeding or internal organs bleeding Schizoaffective disorder, bipolar type Denies any suicidal thought or hallucination Follow up with outpatient psych Tobacco abuse Counseling on smoking cessation DVT px Eliquis on hold due to chest wall hematoma on SCDs CODE status Full code Disposition OK to discharge home tomorrow Follow up appointment with your PCP Dr. Farah on 11/13 @ 10:45 AM Subjective Pt was seen and examined Lying in bed with no distress Pt said that her breathing is not as good today Pt supposed to wear oxygen at home, but has not been using it She said that she feels sore around the chest wall area where she had the bruises Pt asked if she will be discharged on pain medication (narcotic) I told her that we will not be discharged her on narcotic because her drug screen is positive and she continues to drink alcohol Pt would like to discharge today because she does have an appointment tomorrow She tolerated her diet denies any chest pain, N/V Physical Exam Physical Exam: General- No acute distress Head- atraumatic Eyes- PERRL, EOMI, ENT- oropharynx clear Neck- supple, no JVD Lungs- Mild wheezing on expiratory Heart- regular rhythm; no murmur Chest- Left chest wall tenderness with bruises Abdomen- normal bowel sounds, soft, obese Extremities- no calf tenderness Neuro- alert, oriented x 3; PERRL, EOMI; no facial palsy; no dysarthria Skin- warm & dry Results & Data Vital Signs (Past 12 Hours) Vital Signs Temp Pulse Pulse Resp BP BP Pulse Ox 11/10/18 15:38 64 11/10/18 15:18 75 18 93 11/10/18 14:53 36.7 C 70 18 144/89 H 94 11/10/18 11:54 37.0 C 64 18 162/93 H 96 11/10/18 11:10 68 18 96 11/10/18 08:40 86 165/77 H 11/10/18 07:12 82 18 93 11/10/18 06:59 37.0 C 73 18 177/96 H 94 (1) Alcohol intoxication Complication of substance-induced condition: uncomplicated Qualified Code(s): F10.920 - Alcohol use, unspecified with intoxication, uncomplicated (2) Pancreatitis Acute pancreatitis complication: unspecified Chronicity: acute Pancreatitis type: unspecified pancreatitis type Qualified Code(s): K85.90 - Acute pancreatitis without necrosis or infection, unspecified (3) Chest wall contusion Encounter type: initial encounter Laterality: unspecified laterality Qualified Code(s): S20.219A - Contusion of unspecified front wall of thorax, initial encounter (4) Abdominal pain Abdominal location: unspecified location Qualified Code(s): R10.9 - Unspecified abdominal pain
[2018-11-10 19:49] VITALS: BP 175/99; PULSE 92; O2SAT 90
--- NOTE | 2018-11-11 07:11 | Discharge Summary ---
Date of Service November 10, 2018 Admission HPI Per Admitting Provider History obtained from patient and records. Medical history significant for chronic respiratory failure secondary to COPD on home O2, PAF on Eliquis, history of TIAs, hypertension, DM 2 insulin requiring, mood disorder/paranoid schizophrenia, history ongoing cocaine/alcohol/tobacco abuse, hx pancreatitis. Recent confinement last month for acute pancreatitis attributed to alcohol intake. Patient miserable since leaving the hospital. Multiple complaints as follows: Achy headache, right hand numbness, left posterior shoulder pain, worsening sinus congestion with greenish drainage, shortness of breath and achy abdominal pain. Usual diarrhea symptoms - patient unable to comment on stool color "because I don't look." Patient had gone back to drinking. Unhappy with PCP visit 5 days ago. Scheduled to see new PCP soon. Patient had 2 unwitnessed syncopal events at home yesterday. Patient noted urinary incontinence. Patient woke up with achy left-sided chest pain/chest wall swelling after landing on a house fan after second syncopal event. Patient complaining of worsening headache, posterior back pain, abdominal pain. Admission Exam Per Admitting Provider GENERAL: uncomfortable, obese, lying on her right side, no respiratory distress SKIN: Normal color, warm HEENT: [place] palpebral conjunctivae, no ptosis, dry buccal mucosa NECK : Supple, short, no tenderness CHEST : Expiratory wheezes that clear with coughing, tender hematoma left chest wall BACK : Left upper back tenderness worsened by left shoulder motion HEART : RRR, no obvious murmurs ABDOMEN: distention, epigastric tenderness EXTREMITIES : minimal LE swelling, no LE tenderness, no other conspicuous deformities noted NEUROLOGIC : Coherent, no facial asymmetry, no other gross focality Principal Diagnosis Pancreatitis syncope Sinusitis Elevated troponin Alcohol abuse Cocaine abuse Tobacco abuse HTN COPD DM type 2 Elevated Liver Enzymes Hypokalemia Afib Discharge Exam General- No acute distress Head- atraumatic Eyes- PERRL, EOMI, ENT- oropharynx clear Neck- supple, no JVD Lungs- Mild wheezing on expiratory Heart- regular rhythm; no murmur Chest- Left chest wall tenderness with bruises Abdomen- normal bowel sounds, soft, obese Extremities- no calf tenderness Neuro- alert, oriented x 3; PERRL, EOMI; no facial palsy; no dysarthria Skin- warm & dry Discharge Data Allergies Allergy/AdvReac Type Severity Reaction Status Date / Time haloperidol Allergy Severe TONGUE Verified 11/08/18 00:43 SWELLING insulin lispro Allergy Intermediate HIVES Verified 11/08/18 00:43 phenol Allergy Intermediate HIVES Verified 11/08/18 00:43 citalopram Allergy Mild ITCHING Verified 11/08/18 00:43 sulfamethoxazole Allergy Mild RASH Verified 11/08/18 00:43 trimethoprim Allergy Mild RASH Verified 11/08/18 00:43 Bactrim Allergy Unknown RASH Verified 12/01/17 16:09 Penicillins Allergy Unknown UNKNOWN Verified 11/08/18 00:43 topiramate AdvReac Severe SEIZURE Verified 11/08/18 00:43 LIKE ACTIVITY morphine AdvReac Mild HEADACHE Verified 11/08/18 00:43 oxycodone AdvReac Mild ITCH Verified 10/10/18 13:23 Margarine Allergy Severe RASH Uncoded 10/10/18 13:23 Consultations 11/08/18 01:16 ED Decision to Admit Stat 11/08/18 03:46 Consult Gastroenterology Routine Ordered Studies 11/08/18 02:13 CT abd pelvis IV con only Urgent CT head/brain wo con Urgent CT thoracic spine wo con Urgent 11/08/18 02:18 CT chest w con Urgent 11/09/18 10:40 MR MRCP Routine MR MRCP CLINICAL HISTORY: 53 years-old Female presenting with nausea, recent abdominal pain, clinical concern for biliary calculus. TECHNIQUE: Multisequence, multiplanar MR imaging of the abdomen was performed without the use of intravenous contrast. Dedicated MRCP protocol was utilized. 3-D volumetric and/or maximum intensity projection (MIP) images were subsequently reconstructed for review. IV contrast: None. COMPARISON: CT from 11/08/2018. FINDINGS: Localizer images: Unremarkable. Lung bases: Lung base clear. Normal heart size. No pericardial or pleural effusion. Liver: Normal morphology though there is top normal liver size. Liver signal intensity compatible with hepatic steatosis. Biliary: Conventional intrahepatic biliary bifurcation. No intrahepatic or extrahepatic biliary ductal dilatation. Normal gallbladder. Pancreas: Normal noncontrast appearance. Spleen: Normal noncontrast appearance. Adrenal glands: Normal noncontrast appearance. Kidneys and ureters: Normal noncontrast appearance. No hydronephrosis. Normal ureters. Bowel: Normal noncontrast appearance. No bowel obstruction. Peritoneal cavity: No free fluid. Lymph nodes: No gross lymphadenopathy allowing for noncontrast technique. Vasculature: Normal noncontrast appearance. Abdominal wall: Normal. Musculoskeletal: Normal. IMPRESSION: 1. No evidence of cholelithiasis or choledocholithiasis. No biliary ductal dilatation. 2. Hepatic steatosis. Electronically signed by: Alonso Nelson M.D. 11/09/2018 4:08 PM Dictated: 11/09/18 1604 Transcribed: 11/09/18 1604 XR cervical spine 2 or 3V CLINICAL HISTORY: neck pain history of trauma COMPARISON STUDY: 02/25/2017 FINDINGS: No acute fractures or subluxations are visualized. There is poor visualization of C7 vertebra. There are multilevel degenerative changes most pronounced the C6-7 level. There is slight loss in height of several cervical vertebra, finding unchanged from the prior study and felt to be chronic. IMPRESSION: 1. Technically limited study 2. No fractures or subluxations identified on conventional radiographic imaging 3. Degenerative changes most pronounced the C6-7 level. Electronically signed by: Dawood Diaz M.D. 11/08/2018 1:41 PM Dictated: 11/08/18 1339 Transcribed: 11/08/18 1339 XR shoulder LT min 2V routine CLINICAL HISTORY: Left shoulder pain COMPARISON: 03/06/2018 DISCUSSION: There are advanced osteoarthritic changes with joint space narrowing and osteophyte formation. There is a persistent ossific density at the level of the greater tuberosity, unchanged from the prior study. There are no acute fractures. There is no dislocation. IMPRESSION: Chronic and advanced arthritic changes. No acute fractures. Electronically signed by: Dawood Diaz M.D. 11/08/2018 6:17 AM Dictated: 11/08/18 0615 Transcribed: 11/08/[address] OF THE CHEST WITH IV CONTRAST CLINICAL HISTORY: Chest pain status post trauma COMPARISON STUDY: September 29, 2018 TECHNIQUE: Following the IV administration of 95 mL of Optiray-320, CT of the thorax was performed from the thoracic inlet to the lung bases. Images are reviewed in the axial, sagittal, and coronal planes. IV contrast was administered without complication. A dose lowering technique was utilized adhering to the principles of ALARA. CT DOSE: 3618.06 mGy.cm FINDINGS: Thyroid: Imaged portions of the thyroid gland are normal in appearance. Thoracic aorta: The thoracic aorta is normal in course and caliber, noting standard 3-vessel arch anatomy. No aneurysm or dissection is seen. Pulmonary vasculature: The pulmonary trunk is normal in caliber. There are no central filling defects identified to suggest pulmonary embolus. Note that this examination was not protocoled for the evaluation of pulmonary emboli. HEART: The heart is normal in size and configuration, without pericardial effusion. Lungs and pleural spaces: There is no pneumothorax. There are no pleural effusions. There is no focal pulmonary consolidation. There is a solid 3 mm right middle lobe pulmonary nodule. In a low risk patient, no further follow-up is indicated. Mediastinum: There is no pathologic adenopathy. There is no evidence for hematoma. Katie: There is no nodes of pathologic hilar adenopathy Axilla: There is no nodes of pathologic axillary lymphadenopathy Upper abdomen: There is hepatic steatosis Skeletal structures: There is an age-indeterminate nondisplaced fracture the left sixth anterior rib. There is edema within the left upper anterior chest w all soft tissues with associated skin thickening. The findings are consistent with a chest wall contusion. There is a linear hyperdense focus, suspicious for active hemorrhage. IMPRESSION: 1. Left anterior chest wall contusion, with probable active bleeding 2. Age-indeterminate nondisplaced fracture the left sixth anterior rib. No evidence of pneumothorax 3. No evidence of pulmonary contusion 4. Hepatic steatosis Electronically signed by: Dawood Diaz M.D. 11/08/2018 7:36 AM Dictated: 11/08/18728 Transcribed: 11/08/18728 CT thoracic spine wo con CT DOSE: CLINICAL HISTORY: Left upper back pain status post trauma TECHNIQUE: Helical images were acquired in the transverse plane. Sagittal and coronal reformatted images were acquired. A dose lowering technique was utilized adhering to the principles of ALARA. COMPARISON STUDY: None. FINDINGS: There are no pleural effusions. There is no evidence of pulmonary contusion. There are no findings to indicate a paraspinal hematoma. No acute fractures or traumatic subluxations are visualized. There are mild multilevel degenerative changes. IMPRESSION: No acute fractures or traumatic subluxations identified. Electronically signed by: Dawood Diaz M.D. 11/08/2018 7:38 AM Dictated: 11/08/1837 Transcribed: 11/08/18736 CT head/brain wo con CLINICAL HISTORY: Severe headache COMPARISON STUDY: 10/10/2018 TECHNIQUE: Axial CT of the brain is performed from the vertex to the skull base. IV contrast was not administered for this examination. A dose lowering technique was utilized adhering to the principles of ALARA. CT DOSE: 537.48 mGy.cm FINDINGS: No intra or extra-axial mass lesions are visualized. There is no CT evidence of acute cortical infarction. There is no evidence of midline shift. There is no acute hemorrhage. No calvarial fractures are visualized. There are patchy white matter hypodensities likely on a small vessel basis. There is no evidence of pathologic ventricular dilatation. There is opacification the right maxilla sinus. Multiple right-sided ethmoid air cells are opacified. IMPRESSION: 1. No acute intracranial findings 2. Persistent inflammatory changes within the right maxillary and ethmoid sinuses. Electronically signed by: Dawood Diaz M.D. 11/08/2018 7:15 AM Dictated: 11/08/18712 Transcribed: 11/08/18712 CT abd pelvis IV con only CLINICAL HISTORY: Worsening abdominal pain status post trauma COMPARISON STUDY: 10/10/2018 TECHNIQUE: The patient was scanned in a dynamic helical fashion during intravenous administration of 95 cc of Optiray 320. A dose lowering technique was utilized adhering to the principles of ALARA. CT DOSE: FINDINGS: Lower chest: The heart is normal in size and configuration, without pericardial effusion. The lung bases and pleural spaces are clear. Liver: There is severe hepatic steatosis. Gallbladder: Unremarkable. Spleen: Normal in size and attenuation. Pancreas: There is been interval resolution of the peripancreatic inflammatory changes. Adrenal glands: Unremarkable. Kidneys: There is symmetric renal cortical enhancement. The kidneys are normal in size without hydronephrosis. Bowel: There are no transition zones indicate bowel obstruction. There is no acute diverticulitis. The appendix appears normal. Peritoneum: There is no intraperitoneal free air or abdominal ascites. Vasculature: The abdominal aorta is normal in course and caliber. Adenopathy: None. Pelvic viscera: The bladder, and pelvic viscera are unremarkable. Skeletal structures: No destructive osseous lesions are seen. IMPRESSION: 1. No acute intra-abdominal or pelvic findings 2. Severe hepatic steatosis 3. No evidence bowel obstruction. No evidence of free air 4. Normal appendix. No evidence of acute diverticulitis. Electronically signed by: Dawood Diaz M.D. 11/08/2018 7:28 AM Dictated: 11/08/18 0725 Transcribed: 11/08/18724 XR chest 1V portable CLINICAL HISTORY: Chest pain status post trauma COMPARISON STUDY: 10/11/2018 FINDINGS: The heart is the upper limits of normal in size. There is no failure. There is no focal pulmonary consolidation. There are no pleural effusions. There is no pneumothorax.[ IMPRESSION: No active disease in the chest. Electronically signed by: Dawood Diaz M.D. 11/08/2018 6:13 AM Dictated: 11/08/18611 Transcribed: 11/08/18611 Hospital Course (1) Abdominal pain: (2) Pancreatitis: Multiple admission for recurrent pancreatitis related to alcohol abuse Present on admission with abdominal pain CT abd/pelvis showed no acute intra-abdominal or pelvic findings and interval resolution of the peripancreatic inflammatory changes. Lipase on admission about 981 Repeat Lipase today 678 Tolerated clear liquid diet Will d/c IVF GI on board Tolerated low fat diet MRCP done showed no evidence of cholelithiasis or choledocholithiasis. No biliary ductal dilatation. Advised pt to quit drinking alcohol OK from GI standpoint to discharge home (3) Syncope: Possible related to alcohol abuse and cocaine abuse Need to r/o any seizure since pt not compliant with med such as gabapentin that can lead to seizure if stops suddenly CT head showed no acute intracranial findings No focal neuro deficit on exam EEG done showed normal eeg without evidence for a focal or generalized encephalopathy or potentially epileptogenic activity No further episode since admitting Stable (4) Elevated troponin: Chronic elevated troponin No ischemic changes on EKG Troponin trending down Last ECHO on 12/15 showed no wall motion abnormality with EF 55-60 % (5) Alcohol intoxication: (6) Cocaine abuse: Alcohol level on admission 232 and UDS positive cocaine Continue home dose gabapentin On alcohol withdraw protocol with Ativan Receive banana bag Continue thiamine and folic acid Monitor for signs of alcohol withdrawn Counseling on alcohol cessation and cocaine abuse Agreed to go for inpatient alcohol rehab treatment Information was given to patient to call for inpatient alcohol rehab (7) Transaminitis: Possible related to alcohol AST 97 and ALT [address] abdomen/pelvis showed severe steatosis Liver enzymes trending down to normal Resolved (8) Chest wall contusion: Due to trauma from the fall during syncopal episode CT chest showed Left anterior chest wall contusion, with probable active bleeding and Age-indeterminate nondisplaced fracture the left sixth anterior rib Continue pain control Hgb stable Resume Eliquis in am Monitor H/H COPD Continue neb treatment, spiriva On prednisone 20mg due to mild wheezing on exam has not been using her home oxygen supplement Advised pt to continue using oxygen at home Counseling on tobacco abuse Hypokalemia K 3.1 today K replaced Monitor BMP Sinusitis CT head showed persistent inflammatory changes within the right maxillary and ethmoid sinuses. On doxycycline BID Continue monitor Neck pain Xray of the neck showed degenerative changes most pronounced the C6-7 level. Continue pain control HTN BP stable Continue Vasalrtan and hydralazine and HCTZ Monitor BP PAF Rate controlled on Diltiazem Eliquis on hold due to chest wall hematoma High risk of falls due to alcohol abuse Counseling pt not to drink alcohol while on Eliquis due to risk of fall that can lead to intracranial bleeding or internal organs bleeding Schizoaffective disorder, bipolar type Denies any suicidal thought or hallucination Follow up with outpatient psych Tobacco abuse Counseling on smoking cessation DVT px Eliquis on hold due to chest wall hematoma on SCDs CODE status Full code Disposition OK to discharge home tomorrow Follow up appointment with your PCP Dr. Farah on 11/13 @ 10:45 AM Total Time Total Time Spent Total Time Spent (In Minutes): 35 minutes Total Time Includes: Examination of the Patient, Discharge Planning, Medication Reconciliation, Communication With Other Providers and Other Discharge Plan Discharge Items Patient Disposition: Home - Home Health Services Reason For Visit: PANCREATITIS, RECURRENT SYNCOPE Discharge Diagnosis: Pancreatitis syncope Sinusitis Elevated troponin Alcohol abuse Cocaine abuse Tobacco abuse HTN COPD DM type 2 Elevated Liver Enzymes Hypokalemia Afib Discharge Goals: Decrease discomfort, Improve disease control and Increase independence Activity: Resume your previous activity Activity Comment: as tolerated Non-emergency contact: Primary Care Provider Call non-emergency contact if: you have any medication questions, your pain is not controlled and your pain is worsening Follow-up/Referrals: Yovani Arellano MD [Primary Care Provider] - Diet: Carb Consistent or DM2 Addtl Provider Instructions: Follow up appointment with your primary care physician Dr. Farah on 11/13 @ 10:45 AM Please call to arrange for alcohol rehab Counseling on alcohol, tobacco and cocaine cessation Check CBC in 1 week to monitor hemoglobin Check BMP in 1 week to monitor electrolytes Follow a health diabetes diet and limited concentrated sugar intake Monitor your blood sugar Continue oxygen supplement with ambulation Prescriptions: New doxycycline hyclate 100 mg Capsule 100 mg PO BID 4 Days Qty: 8 RF: 0 prednisone 20 mg Tablet 20 mg PO DAILY 5 Days Qty: 5 RF: 0 Continued albuterol sulfate 2.5 mg /3 mL (0.083 %) Solution For Nebulization 2.5 mg INHALATION Q4 PRN (Reason: Shortness Of Breath Or Wheezing) RF: 0 valacyclovir 500 mg Tablet 500 mg PO QAM RF: 0 trazodone 100 mg Tablet 200 mg PO HS PRN (Reason: Sleep) RF: 0 valsartan 320 mg Tablet 320 mg PO QAM RF: 0 hydralazine 50 mg Tablet 50 mg PO BID RF: 0 diltiazem HCl 300 mg Tablet Extended Release 24 Hr 300 mg PO QAM RF: 0 Basaglar KwikPen U-100 Insulin 100 unit/mL (3 mL) Insulin Pen 60 unit SUBCUT HS RF: 0 omeprazole 20 mg Tablet,Delayed Release (Dr/Ec) 20 mg PO QAM RF: 0 Spiriva Respimat 2.5 mcg/actuation Mist 2 puff INHALATION QAM RF: 0 cyclobenzaprine 10 mg Tablet 10 mg PO BID PRN (Reason: MUSCLE SPASMS) RF: 0 ranitidine HCl 300 mg Tablet 300 mg PO HS RF: 0 lactulose [Constulose] 10 gram/15 mL solution 30 ml PO DAILY PRN (Reason: Constipation) RF: 0 Eliquis 5 mg tablet 5 mg PO QAM RF: 0 perphenazine 4 mg 18 mg PO BID RF: 0 thiamine HCl (vitamin B1) [Vitamin B-1] 100 mg Tablet 100 mg PO QAM Qty: 30 RF: 0 folic acid 1 mg Tablet 1 mg PO QAM 30 Days Qty: 30 RF: 0 potassium chloride 10 mEq capsule, extended release 10 meq PO DAILY Qty: 30 RF: 0 gabapentin 300 mg Tablet Extended Release 24 Hr 300 mg PO TID RF: 0 metformin 500 mg Tablet Extended Release 24hr 500 mg PO BID RF: 0 hydrochlorothiazide 12.5 mg Tablet 12.5 mg PO DAILY RF: 0 Combivent Respimat 20-100 mcg/actuation Mist 1 puff INHALATION DIRECTED RF: 0 ibuprofen 800 mg Tablet 800 mg PO DIRECTED PRN (Reason: Pain) RF: 0 meclizine 12.5 mg Tablet 12.5 mg PO DIRECTED PRN (Reason: Dizziness) RF: 0 ergocalciferol (vitamin D2) [Vitamin D2] 50,000 unit Capsule 50,000 unit PO WK RF: 0 Stand-Alone Forms: [facility] Discharge Orders: Discharge Order (Routine); Ordered 11/10/18 Ordered By: Anastasiya Waldrop Admission Data Admit Date/Time: 11/08/18 03:30 Attending Provider: Anastasiya Waldrop Admit Provider: Derrick Smith Primary Care Provider: Yovani Arellano Other Providers: Derrick Smith ; Margarette Jain ; Marjorie Lyles ; Lianet Thomas ; Amor Howe ; Alexandra Gray ; Mejia Moran ; Stephanie Hastings ; Jackson Villanueva ; Diomedes You ; Nisih Dia ; Marta Gaspar ; Kitty Rosenbaum ; Guadalupe Jimenez ; Ronn Marquez Service: Telemetry Medical Other Interventions: Discharge Summary Assessment (RN) Last Done: 11/10/18 19:41 DC Date/Time DO NOT enter until pt leaves facility: 11/10/18 20:16
[2018-11-11] MEDS ORDERED: hydroCHLOROthiazide 25 MG TAB PO SCH (09:00)
[2018-11-11] MEDS ORDERED: APIXABAN 5 MG TABLET PO SCH (09:00)
== END 2018-11-10 20:16 | disposition home or self-care (01) | DRG 439 ==
LOC: ED → SUATTDRO 03:30 → 2W 03:30

== ENCOUNTER 2018-12-17 | Observation (INO) ==
[2018-12-17] MEDS ORDERED: ACETAMINOPHEN 1,000 MG/100 ML VIAL IV STA (00:24)
[2018-12-17] MEDS ORDERED: GI COCKTAIL ED USE PO ONE (00:24)
[2018-12-17] MEDS ORDERED: SODIUM CHLORIDE 0.9% 1000ML 1,000 ML IV ONE ×2 (00:24→03:28)
[2018-12-17] MEDS ORDERED: FAMOTIDINE 20MG IV PUSH 20 MG/5 ML SYR IV STA (00:24)
[2018-12-17 00:43] LABS: Basophils # (auto) 0.04 K/uL (0-0.2); Basophils % (auto) 0.7 %; Eosinophils # (auto) 0.11 K/uL (0-0.5); Hematocrit (blood only) 38.8 % (37-47); Hemoglobin 13.3 g/dL (12.0-16.0); Immature Granulocytes # (auto) 0.01 K/uL (0.00-0.02); Immature Granulocytes % (auto) 0.2 %; Lymphocytes # (auto) 2.27 K/uL (1.2-3.4); Lymphocytes % (auto) 41.7 %; Mean Corpuscular Hgb Conc 34.3 g/dL (32-36); Mean Corpuscular Volume 99.7 fL (80-100); Mean Platelet Volume 9.9 fL (7.4-10.4); Monocytes # (auto) 0.35 K/uL (0.11-0.59); Monocytes % (auto) 6.4 %; Neutrophils # (auto) 2.67 K/uL (1.4-6.5); Platelet Count 214 K/uL (130-400); RDW Coefficient of Variation 13.2 % (11.5-14.5); RDW Standard Deviation 48.4 fL (36.4-46.3); Red Blood Count 3.89 M/uL (4.2-5.4); White Blood Count 5.45 K/uL (4.8-10.8)
[2018-12-17] MEDS ORDERED: LORazepam 0.5 MG/1 ML VIAL IV STA ×2 (00:49→04:53)
[2018-12-17 01:01] LABS: Albumin Level 3.3 gm/dl (3.4-5.0); BUN Creatinine Ratio 7.9 (10-20); Calcium 8.9 mg/dl (8.5-10.1); Creatinine Clr Calc Pharmacy 131.7 ml/min; Est GFR (African American) 114.9; Est GFR (Non-African American) 99.2; INR 1.1 (0.9-1.1); Magnesium 1.3 mg/dl (1.8-2.4); Partial Thromboplastin Time 27.1 Seconds (21.0-31.0); Potassium 3.4 mmol/L (3.5-5.1); Prothrombin Time 11.3 Seconds (9.0-12.0)
--- NOTE | 2018-12-17 01:14 | Emergency Department Note ---
History of Present Illness General Chief Complaint: Vertigo Stated Complaint: DIZZY,HEART PAINS,STOMACH PAINS Source: patient Mode of arrival: ambulatory Limitations: no limitations History of Present Illness Provider complaint: dizziness and other (abdominal pain, chest pain) Onset (ago): day(s) 3 Timing: + gradual onset Description: + off-balance History of similar episodes: Yes History of trauma: No Severity: severe Maximum Pain Intensity: 10 Current Pain Intensity: 10 Relieved By: + nothing Exacerbated By: + movement and + other (eating) This 53-year-old female patient, well-known to the emergency department, presents to the ED today in her normal state of health. The patient reports "same thing". She states she has a history of chronic pancreatitis, and "cannot seem to stop drinking". She states for the past few days, she has been experi encing chest and upper abdominal pain as well as dizziness and lightheadedness. The patient last drink 1 pint of liquor earlier today. She has been unable to keep food or fluids down for the past 2 to 3 days, and states she threw up her medications this morning. She is taken no medications for the nausea. She denies any new or unusual symptoms, but states the lightheadedness does not always occur with flareups. She denies any recent fever, congestion, rhinorrhea, sore throat, difficulty breathing, edema, diarrhea, constipation, or urinary symptoms. Home Medications Home Medications Medication Instructions Recorded Confirmed Type Ameliaaglar TawanaikPen U-100 Insulin 60 unit SUBCUT HS 07/05/18 12/17/18 History albuterol sulfate 2.5 mg INHALATION Q4 PRN 07/05/18 12/17/18 History hydralazine 50 mg PO BID 07/05/18 12/17/18 History omeprazole 20 mg PO BID 07/05/18 12/17/18 History trazodone 200 mg PO HS PRN 07/05/18 12/17/18 History valacyclovir 500 mg PO QAM 07/05/18 12/17/18 History valsartan 320 mg PO QAM 07/05/18 12/17/18 History Eliquis 5 mg PO QAM 09/29/18 12/17/18 History cyclobenzaprine 10 mg PO BID PRN 09/29/18 12/17/18 History lactulose [Constulose] 30 ml PO DAILY PRN 09/29/18 12/17/18 History ranitidine HCl 300 mg PO HS 09/29/18 12/17/18 History thiamine HCl (vitamin B1) [Vitamin 100 mg PO QAM #30 tab 10/13/18 12/17/18 Rx B-1] gabapentin 300 mg PO TID 11/08/18 12/17/18 History hydrochlorothiazide 12.5 mg PO DAILY 11/08/18 12/17/18 History meclizine 12.5 mg PO DIRECTED PRN 11/08/18 12/17/18 History metformin 500 mg PO BID 11/08/18 12/17/18 History cetirizine [Zyrtec] 10 mg PO DAILY 12/01/18 12/17/18 History diclofenac sodium [Voltaren] 4 g TOPICAL QID PRN 12/01/18 12/17/18 History diltiazem HCl [Cartia XT] 300 mg PO DAILY 12/01/18 12/17/18 History ergocalciferol (vitamin D2) 50,000 unit PO WK 12/01/18 12/17/18 History [Vitamin D2] fluticasone propion-salmeterol 1 puff INHALATION DAILY 12/01/18 12/17/18 History [AirDuo RespiClick] folic acid 1 mg PO DAILY 12/01/18 12/17/18 History hydroxyzine HCl 10 mg PO Q8 PRN 12/01/18 12/17/18 History insulin lispro [Admelog SoloStar 0 unit SUBCUT TIDM 12/01/18 12/17/18 History U-100 Insulin] potassium chloride 10 meq PO DAILY 12/01/18 12/17/18 History Allergies Allergy/AdvReac Type Severity Reaction Status Date / Time haloperidol Allergy Severe TONGUE Verified 12/01/18 20:38 SWELLING insulin lispro Allergy Intermediate HIVES Verified 12/01/18 20:38 phenol Allergy Intermediate HIVES Verified 12/01/18 20:38 citalopram Allergy Mild ITCHING Verified 12/01/18 20:38 sulfamethoxazole Allergy Mild RASH Verified 12/01/18 20:38 trimethoprim Allergy Mild RASH Verified 12/01/18 20:38 Bactrim Allergy Unknown RASH Verified 12/01/17 16:09 Penicillins Allergy Unknown UNKNOWN Verified 12/01/18 20:38 topiramate AdvReac Severe SEIZURE Verified 12/01/18 20:38 LIKE ACTIVITY morphine AdvReac Mild HEADACHE Verified 12/01/18 20:38 oxycodone AdvReac Mild ITCH Verified 10/10/18 13:23 Margarine Allergy Severe RASH Uncoded 10/10/18 13:23 Past Med/Surg History Medical History DM type 2 (diabetes mellitus, type 2) Alcohol abuse Suicidal ideations Bronchitis (Acute) Prolonged QT interval Non-sustained ventricular tachycardia (Acute) Tobacco use disorder (Chronic) History of opioid abuse (Chronic) Cocaine abuse (Chronic) Hx of suicide attempt (Resolved) Diabetes (Chronic) COPD (chronic obstructive pulmonary disease) (Chronic) Fatty liver (Chronic) Elevated troponin (Chronic) Obesity (Chronic) HTN (hypertension) (Chronic) Sleep apnea (Chronic) Neuropathy (Chronic) Sciatic nerve disease (Chronic) Atrial fibrillation (Chronic) Epistaxis, recurrent (Chronic) Chronic generalized pain disorder (Chronic) Schizoaffective disorder, bipolar type (Chronic) COPD with exacerbation (Acute) Alcohol induced acute pancreatitis (Acute) ETOH abuse Rectal bleeding (Acute) EtOH dependence (Inactive) Surgical History H/O ovarian cystectomy (Resolved) H/O foot surgery (Resolved) Social History Preferred Language: Croatian Communication Ability: Effective Visual Impairment: No Limitations Beliefs That Will Affect Care: None marital status: Single Current Living Situation: Family Current Living Situation Comment: lives with brothers? current occupational status: unemployed and disabled Feels Safe at Home: Yes Smoking Status: Current every day smoker Tobacco Type: cigarettes Cigarettes Per Day: 10 Second Hand Exposure: No Hx Alcohol Use: Yes Alcohol type: hard liquor Hx Substance Use: Yes substance use type: crack/cocaine Review of Systems A total of 10 systems reviewed and were otherwise negative Physical Exam Vital Signs Vital Signs - 24 hr 12/17/18 00:03 12/17/18 00:17 12/17/18 00:19 Temperature 37.0 C Temperature Source Oral Sepsis Recent Fever Within 48 Hours No Sepsis Action Taken by Nursing No Action Required Pulse Rate 109 H 105 H 103 H Pulse Rate [Left Finger] Pulse Rate from SpO2 Sensor 105 H 102 H Respiratory Rate 20 Respiratory Effort / Characteristics Non-Labored Spontaneous Respiratory Depth Normal Blood Pressure 161/94 H 146/98 H Blood Pressure Mean 116 114 Blood Pressure Position Sitting Pulse Oximetry 96 97 97 Oxygen Delivery Method Room Air 12/17/18 00:30 12/17/18 00:31 12/17/18 00:35 Temperature Temperature Source Sepsis Recent Fever Within 48 Hours Sepsis Action Taken by Nursing Pulse Rate 99 H 100 H Pulse Rate [Left Finger] Pulse Rate from SpO2 Sensor 101 H 97 H Respiratory Rate Respiratory Effort / Characteristics Respiratory Depth Blood Pressure 153/100 H Blood Pressure Mean 117 Blood Pressure Position Pulse Oximetry 95 97 97 Oxygen Delivery Method Room Air 12/17/18 01:00 12/17/18 01:01 12/17/18 01:30 Temperature Temperature Source Sepsis Recent Fever Within 48 Hours Sepsis Action Taken by Nursing Pulse Rate 89 100 H 89 Pulse Rate [Left Finger] Pulse Rate from SpO2 Sensor 87 87 Respiratory Rate 27 H 19 Respiratory Effort / Characteristics Respiratory Depth Blood Pressure 171/99 H Blood Pressure Mean 123 Blood Pressure Position Pulse Oximetry 97 98 Oxygen Delivery Method 12/17/18 01:31 12/17/18 01:32 12/17/18 02:00 Temperature Temperature Source Sepsis Recent Fever Within 48 Hours Sepsis Action Taken by Nursing Pulse Rate 85 86 90 Pulse Rate [Left Finger] Pulse Rate from SpO2 Sensor 85 85 91 H Respiratory Rate 25 H 21 Respiratory Effort / Characteristics Respiratory Depth Blood Pressure 186/108 H Blood Pressure Mean 134 Blood Pressure Position Pulse Oximetry 95 98 96 Oxygen Delivery Method 12/17/18 02:01 12/17/18 02:24 Temperature Temperature Source Sepsis Recent Fever Within 48 Hours Sepsis Action Taken by Nursing Pulse Rate 93 H Pulse Rate [Left Finger] 91 H Pulse Rate from SpO2 Sensor 93 H Respiratory Rate 21 24 Respiratory Effort / Characteristics Spontaneous Respiratory Depth Blood Pressure 177/109 H Blood Pressure Mean 131 Blood Pressure Position Pulse Oximetry 95 96 Oxygen Delivery Method Room Air VITALS: Vitals are noted on the nurse's note and reviewed by myself. Vital signs stable. GENERAL: This is a 53-year-old obese black female, in no acute distress, nondiaphoretic, well-developed well-nourished. SKIN: The skin was without rashes, erythema, edema, or bruising. There is no tenting of the skin. Capillary reflex less than 2 seconds. HEAD: Normocephalic atraumatic. EARS: External auditory canals clear, tympanic membranes pearly silva without erythema or effusion bilaterally. EYES: Pupils equal round and reactive to light and accommodation. Conjunctivae without injection, sclerae without icterus. Extraocular movements intact. NOSE: Patent, turbinates without inflammation or discharge. No sinus tenderness. MOUTH: Mucous membranes moist. Tonsils are not enlarged. Pharynx without erythema or exudate. Uvula midline. Airway patent. Tongue does not deviate. NECK: Supple without nuchal rigidity. No lymphadenopathy. Cervical spine is nontender. No JVD. HEART: Regular rate and rhythm without murmurs gallops or rubs. LUNGS: Clear to auscultation bilaterally without wheezes, rales or rhonchi. No dullness to percussion. No retractions or accessory muscle use. ABDOMEN: Positive bowel sounds x 4. Normal tympanic percussion. Epigastric tenderness palpation. The abdomen is otherwise obese, soft, nontender, without masses or organomegaly. Canales sign negative. No guarding or rebound tenderness. MUSCULOSKELETAL: No muscle atrophy, erythema, or edema noted. Full range of motion without joint tenderness in all extremities. No tenderness to palpation. Normal gait. Strength 5/5 throughout. NEURO: Patient was alert and oriented to person place and time. Normal sensation to light and sharp touch. No focal neurological deficits. Course The patient was seen and evaluated as above. IV access obtained, labs drawn. Patient medicated with IV fluids, IV Tylenol, GI cocktail, and Pepcid. Patient refused CAT scan without Ativan. She was given 0.5 mg IV Ativan. Imaging performed and reviewed by myself and radiologist as above. Labs reviewed by myself. I discussed the findings with the patient at bedside. She was reassessed and is feeling no better. Repeat EKG and troponin performed. Patient was given IV Zofran, Toradol, and magnesium. I discussed the case with my attending. The patient was reassessed. She is feeling no better and continues to complain of shooting pains across her chest. I discussed with her options for admission versus discharge. The patient prefers to be admitted due to ongoing symptoms. I discussed case with the email campaign manager. I consulted with Dr. Benson. He did agree to see and evaluate the patient. Please see his dictation regarding ongoing management care of this patient. Administered Medications Discontinued Medications Al Hydrox/Mg Hydrox/Simethicone () 1 dose PO ONE ONE Stop: 12/17/18 00:25 Last Admin: 12/17/18 00:43 Dose: 1 dose Documented by: [id number] Albuterol (Ventolin 0.083% 2.5mg/3ml) 2.5 mg NEB NOW STA Stop: 12/17/18 02:07 Last Admin: 12/17/18 02:23 Dose: 2.5 mg Documented by: [id number] Famotidine (Pepcid 20mg Iv Push) 20 mg in 5 mls @ 2.5 mls/min IV NOW STA Stop: 12/17/18 00:25 Last Admin: 12/17/18 00:43 Dose: 2.5 mls/min Documented by: [id number] Acetaminophen (Ofirmev) 1,000 mg in 100 mls @ 400 mls/hr IV NOW STA Stop: 12/17/18 00:38 Last Infusion: 12/17/18 01:12 Dose: 0 mls/hr Documented by: [id number] Admin: 12/17/18 00:43 Dose: 400 mls/hr Documented by: [id number] Sodium Chloride (Nss 1000ml) 1,000 mls @ 999 mls/hr IV .Q1H1M ONE Stop: 12/17/18 01:24 Last Infusion: 12/17/18 01:51 Dose: 0 mls/hr Documented by: [id number] Admin: 12/17/18 00:43 Dose: 999 mls/hr Documented by: [id number] Lorazepam (Ativan) 0.5 mg in 1 mls @ 1 mls/min IV NOW STA Stop: 12/17/18 00:50 Last Admin: 12/17/18 00:57 Dose: 1 mls/min Documented by: [id number] Magnesium Sulfate/Dextrose (Magnesium Sulfate / D5w) 1 gm in 100 mls @ 100 mls/hr IV ONE ONE Stop: 12/17/18 03:02 Last Infusion: 12/17/18 03:36 Dose: 0 mls/hr Documented by: [id number] Admin: 12/17/18 02:10 Dose: 100 mls/hr Documented by: [id number] Ketorolac Tromethamine (Toradol) 30 mg IV NOW STA Stop: 12/17/18 02:07 Last Admin: 12/17/18 02:16 Dose: 30 mg Documented by: [id number] Ondansetron HCl (Zofran) 4 mg IV NOW STA Stop: 12/17/18 02:07 Last Admin: 12/17/18 02:16 Dose: 4 mg Documented by: [id number] Medical Decision Making Differential Diagnosis + adverse reaction to drug, + benign positional vertigo, + orthostatic hypotension, + vertebral basilar insufficiency, + posterior CVA, + acute ves tibular neuronitis, + transient cerebral ischemia, + orthostasis, + dehydration, + tumor, + infection, + hypoglycemia, + electrolyte abnormalities, + cardiac sources, + intracerebral event and + toxicologic Etiologies such as cardiac ischemia, aortic dissection, pulmonary embolism, pneumonia, pneumothorax, musculoskeletal, infections, gastrointestinal, as well as others were entertained. Medical Records Attestation: I reviewed the patient's medical records. Previous admissions and labs reviewed. Home Medications Current Medication List: was personally reviewed by me Laboratory Data Attestation: I reviewed the patient's lab results. No leukocytosis, anemia, thrombocytopenia. Renal, hepatic function, and electrolytes without significant abnormality. Lipase normal at 313. Magnesium mildly low at 1.3. Coags normal. Troponin 0.266. Repeat troponin 0 0.259. Urinalysis shows trace ketones, but no evidence of blood or infection. Urine drug screen negative. Medical alcohol 49. Result diagrams: 12/17/18 00:32 12/17/18 00:32 Lab Results 12/17/18 12/17/18 12/17/18 Range/Units 00:32 00:32 00:32 WBC 5.45 (4.8-10.8) K/uL RBC 3.89 L (4.2-5.4) M/uL Hgb 13.3 (12.0-16.0) g/dL Hct 38.8 (37-47) % MCV 99.7 (80-100) fL MCH 34.2 H (25-34) pg MCHC 34.3 (32-36) g/dL RDW Std Deviation 48.4 H (36.4-46.3) fL RDW Coeff of Ally 13.2 (11.5-14.5) % Plt Count 214 (130-400) K/uL MPV 9.9 (7.4-10.4) fL Immature Gran % (Auto) 0.2 % Neut % (Auto) 49.0 % Lymph % (Auto) 41.7 % Moca % (Auto) 6.4 % Eos % (Auto) 2.0 % Baso % (Auto) 0.7 % Immature Gran # (Auto) 0.01 (0.00-0.02) K/uL Neut # (Auto) 2.67 (1.4-6.5) K/uL Lymph # (Auto) 2.27 (1.2-3.4) K/uL Moca # (Auto) 0.35 (0.11-0.59) K/uL Eos # (Auto) 0.11 (0-0.5) K/uL Baso # (Auto) 0.04 (0-0.2) K/uL PT 11.3 (9.0-12.0) Seconds INR 1.1 (0.9-1.1) APTT 27.1 (21.0-31.0) Seconds PTT Ratio 1.0 Sodium 137 (136-145) mmol/L Potassium 3.4 L (3.5-5.1) mmol/L Chloride 101 (98-107) mmol/L Carbon Dioxide 25 (21-32) mmol/L Anion Gap 11.0 (3-11) BUN 5 L (7-18) mg/dl Creatinine 0.68 (0.6-1.2) mg/dl Est Cr Clr Drug Dosing 131.7 ml/min Est GFR ( Amer) 114.9 Est GFR (Non-Af Amer) 99.2 BUN/Creatinine Ratio 7.9 L (10-20) Glucose 155 H (70-99) mg/dl Calcium 8.9 (8.5-10.1) mg/dl Magnesium 1.3 L (1.8-2.4) mg/dl Total Bilirubin 0.3 (0.2-1) mg/dl AST 55 H (15-37) U/L ALT 70 (12-78) U/L Alkaline Phosphatase 127 H (45-117) U/L Troponin I 0.266 H* (0-0.045) ng/ml Total Protein 7.3 (6.4-8.2) gm/dl Albumin 3.3 L (3.4-5.0) gm/dl Globulin 4.0 (2.5-4.0) gm/dl Albumin/Globulin Ratio 0.8 L (0.9-2) Lipase 313 (73-393) U/L TSH 0.952 (0.300-4.500) uIu/ml Urine Color Urine Appearance (Clear) Urine pH (4.5-7.5) Ur Specific [place] (1.000-1.030) Urine Protein (Negative) Urine Glucose (UA) (Negative) Urine Ketones (Negative) Urine Blood (Negative) Urine Nitrite (Negative) Urine Bilirubin (Negative) Urine Urobilinogen (Negative) Ur Leukocyte Esterase (Negative) Urine Opiates Screen (Neg) Ur Methadone, Qual (Neg) Urine Barbiturates (Neg) Ur Phencyclidine (PCP) (Neg) U Amphetamin/Meth Scrn (Neg) MDMA (Ecstasy) Screen (Neg) U Benzodiazepines Scrn (Neg) Ur Cocaine Metabolite (Neg) U Marijuana (THC) Screen (Neg) Ethyl Alcohol mg/dL (0-3) mg/dl 12/17/18 12/17/18 12/17/18 Range/Units 01:50 01:50 02:12 WBC (4.8-10.8) K/uL RBC (4.2-5.4) M/uL Hgb (12.0-16.0) g/dL Hct (37-47) % MCV (80-100) fL MCH (25-34) pg MCHC (32-36) g/dL RDW Std Deviation (36.4-46.3) fL RDW Coeff of Ally (11.5-14.5) % Plt Count (130-400) K/uL MPV (7.4-10.4) fL Immature Gran % (Auto) % Neut % (Auto) % Lymph % (Auto) % Moca % (Auto) % Eos % (Auto) % Baso % (Auto) % Immature Gran # (Auto) (0.00-0.02) K/uL Neut # (Auto) (1.4-6.5) K/uL Lymph # (Auto) (1.2-3.4) K/uL Moca # (Auto) (0.11-0.59) K/uL Eos # (Auto) (0-0.5) K/uL Baso # (Auto) (0-0.2) K/uL PT (9.0-12.0) Seconds INR (0.9-1.1) APTT (21.0-31.0) Seconds PTT Ratio Sodium (136-145) mmol/L Potassium (3.5-5.1) mmol/L Chloride (98-107) mmol/L Carbon Dioxide (21-32) mmol/L Anion Gap (3-11) BUN (7-18) mg/dl Creatinine (0.6-1.2) mg/dl Est Cr Clr Drug Dosing ml/min Est GFR ( Amer) Est GFR (Non-Af Amer) BUN/Creatinine Ratio (10-20) Glucose (70-99) mg/dl Calcium (8.5-10.1) mg/dl Magnesium (1.8-2.4) mg/dl Total Bilirubin (0.2-1) mg/dl AST (15-37) U/L ALT (12-78) U/L Alkaline Phosphatase (45-117) U/L Troponin I 0.259 H* (0-0.045) ng/ml Total Protein (6.4-8.2) gm/dl Albumin (3.4-5.0) gm/dl Globulin (2.5-4.0) gm/dl Albumin/Globulin Ratio (0.9-2) Lipase (73-393) U/L TSH (0.300-4.500) uIu/ml Urine Color Yellow Urine Appearance Clear (Clear) Urine pH 6.5 (4.5-7.5) Ur Specific [place] 1.011 (1.000-1.030) Urine Protein Negative (Negative) Urine Glucose (UA) Negative (Negative) Urine Ketones Trace H (Negative) Urine Blood Negative (Negative) Urine Nitrite Negative (Negative) Urine Bilirubin Negative (Negative) Urine Urobilinogen Negative (Negative) Ur Leukocyte Esterase Negative (Negative) Urine Opiates Screen Neg (Neg) Ur Methadone, Qual Neg (Neg) Urine Barbiturates Neg (Neg) Ur Phencyclidine (PCP) Neg (Neg) U Amphetamin/Meth Scrn Neg (Neg) MDMA (Ecstasy) Screen Neg (Neg) U Benzodiazepines Scrn Neg (Neg) Ur Cocaine Metabolite Neg (Neg) U Marijuana (THC) Screen Neg (Neg) Ethyl Alcohol mg/dL (0-3) mg/dl 12/17/18 Range/Units 02:37 WBC (4.8-10.8) K/uL RBC (4.2-5.4) M/uL Hgb (12.0-16.0) g/dL Hct (37-47) % MCV (80-100) fL MCH (25-34) pg MCHC (32-36) g/dL RDW Std Deviation (36.4-46.3) fL RDW Coeff of Ally (11.5-14.5) % Plt Count (130-400) K/uL MPV (7.4-10.4) fL Immature Gran % (Auto) % Neut % (Auto) % Lymph % (Auto) % Moca % (Auto) % Eos % (Auto) % Baso % (Auto) % Immature Gran # (Auto) (0.00-0.02) K/uL Neut # (Auto) (1.4-6.5) K/uL Lymph # (Auto) (1.2-3.4) K/uL Moca # (Auto) (0.11-0.59) K/uL Eos # (Auto) (0-0.5) K/uL Baso # (Auto) (0-0.2) K/uL PT (9.0-12.0) Seconds INR (0.9-1.1) APTT (21.0-31.0) Seconds PTT Ratio Sodium (136-145) mmol/L Potassium (3.5-5.1) mmol/L Chloride (98-107) mmol/L Carbon Dioxide (21-32) mmol/L Anion Gap (3-11) BUN (7-18) mg/dl Creatinine (0.6-1.2) mg/dl Est Cr Clr Drug Dosing ml/min Est GFR ( Amer) Est GFR (Non-Af Amer) BUN/Creatinine Ratio (10-20) Glucose (70-99) mg/dl Calcium (8.5-10.1) mg/dl Magnesium (1.8-2.4) mg/dl Total Bilirubin (0.2-1) mg/dl AST (15-37) U/L ALT (12-78) U/L Alkaline Phosphatase (45-117) U/L Troponin I (0-0.045) ng/ml Total Protein (6.4-8.2) gm/dl Albumin (3.4-5.0) gm/dl Globulin (2.5-4.0) gm/dl Albumin/Globulin Ratio (0.9-2) Lipase (73-393) U/L TSH (0.300-4.500) uIu/ml Urine Color Urine Appearance (Clear) Urine pH (4.5-7.5) Ur Specific [place] (1.000-1.030) Urine Protein (Negative) Urine Glucose (UA) (Negative) Urine Ketones (Negative) Urine Blood (Negative) Urine Nitrite (Negative) Urine Bilirubin (Negative) Urine Urobilinogen (Negative) Ur Leukocyte Esterase (Negative) Urine Opiates Screen (Neg) Ur Methadone, Qual (Neg) Urine Barbiturates (Neg) Ur Phencyclidine (PCP) (Neg) U Amphetamin/Meth Scrn (Neg) MDMA (Ecstasy) Screen (Neg) U Benzodiazepines Scrn (Neg) Ur Cocaine Metabolite (Neg) U Marijuana (THC) Screen (Neg) Ethyl Alcohol mg/dL 49.0 H (0-3) mg/dl Imaging Data My Impression: Chest x-ray. Findings: A chest x-ray was performed and revealed no pneumothorax, effusion, infiltrate, pulmonary edema, free air under the diaphragm, or wide mediastinum. Radiologist's Impression: CT HEAD: Motion. No obvious acute intracranial process. Involutional changes. Mucosal thickening in the right maxillary sinus. Radiologist: Leticia Potts M.D. ECG Data Attestation: I personally reviewed and interpreted this ECG as follows: Indication: chest pain Rate (beats per minute): 103 Rhythm: sinus tachycardia Findings: + left axis deviation; no acute ischemic change Comparison ECG Date: from (12/01/18) Change: no significant change Additional Comments: Repeat EKG performed due to ongoing pain. This showed sinus rhythm with a ventricular rate of 94 bpm. There is questionable ST elevation in V2 and V3 which is not significantly unchanged from previous EKGs. No other significant changes. Blood Pressure Blood Pressure Findings: Elevated blood pressure Blood Pressure Disposition: further management by hospitalist Head Trauma GCS Score: 15 MDM Narrative This 53-year-old female patient presents emergency department today complaining of chest pains and abdominal pain. Patient is well-known to the ED, and when asked why she is here, states "for the same thing I was come in for". The patient denies any new symptoms, but states she does not always get the dizziness and vertigo which she is complaining of now. She has had this in the past though, but states it is not normal. We did elect to perform work-up including labs and imaging with head CT. The patient was medicated with multiple rounds of IV medications. She was given an albuterol nebulizer due to coarse lung sounds throughout. Imaging did not show any acute abnormalities. The patient was reassessed multiple times throughout her stay and did not experience any significant improvement in her symptoms. Initial troponin was elevated, which is chronic for the patient, but when her symptoms did not improve we elected to repeat EKG and troponin. The second EKG triggered some questionable ST elevation in V2 and V3, but repeat troponin was lower than the first. I do not suspect acute coronary syndrome, but do feel that the patient would be more appropriately managed as an inpatient for further evaluation and work-up. Please see hospitalist dictation regarding ongoing management care of this patient. The chart was completed utilizing [employer] Speech voice recognition software. Grammatical errors, random word insertions, pronoun errors, and incomplete sentences are an occasional consequence of this system due to software alfaro itations, ambient noise, and hardware issues. Any formal questions or concerns about the content, text, or information contained within the body of this dictation should be directly addressed to the provider for clarification. Impression & Plan Chest pain, Abdominal pain, Elevated troponin Discharge Plan Visit Data Chief Complaint: Vertigo Stated Complaint: DIZZY,HEART PAINS,STOMACH PAINS ED Provider: Lise Jeter ED Midlevel Provider: Charito Ricci Discharge Problem: Chest pain, Abdominal pain, Elevated troponin Patient Disposition: Admitted As Inpatient Condition: Fair Forms Stand Alone Forms: My [facility] Prescriptions Prescriptions: No Action albuterol sulfate 2.5 mg /3 mL (0.083 %) Solution For Nebulization 2.5 mg INHALATION Q4 PRN (Reason: Shortness Of Breath Or Wheezing) RF: 0 valacyclovir 500 mg Tablet 500 mg PO QAM RF: 0 trazodone 100 mg Tablet 200 mg PO HS PRN (Reason: Sleep) RF: 0 valsartan 320 mg Tablet 320 mg PO QAM RF: 0 hydralazine 50 mg Tablet 50 mg PO BID RF: 0 Basaglar KwikPen U-100 Insulin 100 unit/mL (3 mL) Insulin Pen 60 unit SUBCUT HS RF: 0 omeprazole 20 mg Tablet,Delayed Release (Dr/Ec) 20 mg PO BID RF: 0 cyclobenzaprine 10 mg Tablet 10 mg PO BID PRN (Reason: MUSCLE SPASMS) RF: 0 ranitidine HCl 300 mg Tablet 300 mg PO HS RF: 0 lactulose [Constulose] 10 gram/15 mL solution 30 ml PO DAILY PRN (Reason: Constipation) RF: 0 Eliquis 5 mg tablet 5 mg PO QAM RF: 0 thiamine HCl (vitamin B1) [Vitamin B-1] 100 mg Tablet 100 mg PO QAM Qty: 30 RF: 0 potassium chloride 10 mEq capsule, extended release 10 meq PO DAILY RF: 0 cetirizine [Zyrtec] 10 mg tablet 10 mg PO DAILY RF: 0 diltiazem HCl [Cartia XT] 300 mg capsule,extended release 24hr 300 mg PO DAILY RF: 0 folic acid 1 mg tablet 1 mg PO DAILY RF: 0 ergocalciferol (vitamin D2) [Vitamin D2] 50,000 unit Capsule 50,000 unit PO WK RF: 0 hydroxyzine HCl 10 mg tablet 10 mg PO Q8 PRN (Reason: Itching) RF: 0 insulin lispro [Admelog SoloStar U-100 Insulin] 100 unit/mL insulin pen subcut TIDM RF: 0 diclofenac sodium [Voltaren] 1 % Gel 4 g TOPICAL QID PRN (Reason: Pain) RF: 0 fluticasone propion-salmeterol [AirDuo RespiClick] 232-14 mcg/actuation aerosol powdr breath activated 1 puff inhalation DAILY RF: 0 gabapentin 300 mg Tablet Extended Release 24 Hr 300 mg PO TID RF: 0 metformin 500 mg Tablet Extended Release 24hr 500 mg PO BID RF: 0 hydrochlorothiazide 12.5 mg Tablet 12.5 mg PO DAILY RF: 0 meclizine 12.5 mg Tablet 12.5 mg PO DIRECTED PRN (Reason: Dizziness) RF: 0 Referrals Referrals: Yovani Arellano MD [Primary Care Provider] -
[2018-12-17 01:21] LABS: Albumin Globulin Ratio 0.8 (0.9-2); Bilirubin,Total 0.3 mg/dl (0.2-1); Total Protein 7.3 gm/dl (6.4-8.2); Troponin I 0.266 ng/ml (0-0.045)
[2018-12-17] MEDS ORDERED: MAGNESIUM SULFATE / D5W 1 GM/100 ML BAG IV ONE (02:03)
[2018-12-17] MEDS ORDERED: KETOROLAC 30 MG/ML VIAL IV STA (02:06)
[2018-12-17] MEDS ORDERED: ONDANSETRON INJ 2 MG/ML 2 ML VIAL IV STA (02:06)
[2018-12-17] MEDS ORDERED: ALBUTEROL 0.083% NEBU SOLN 3 ML VIAL NEB STA (02:06)
[2018-12-17 02:10] LABS: Appearance Urine Clear (Clear); Bilirubin Urine Negative (Negative); Blood Urine Negative (Negative); Color Urine Yellow; Glucose Urine UA Negative (Negative); Ketones Urine Trace (Negative); Leukocyte Esterase Urine Negative (Negative); Nitrite Urine Negative (Negative); Protein Urine Negative (Negative); Specific Gravity Urine 1.011 (1.000-1.030); Urobilinogen Urine Negative (Negative); pH Urine 6.5 (4.5-7.5)
[2018-12-17 03:00] LABS: Amphetamines+Metham, Urine Neg (Neg); Barbiturates, Urine Neg (Neg); Benzodiazepine, Urine Neg (Neg); Cocaine, Urine Neg (Neg); MDMA (Ecstacy), Urine Neg (Neg); Methadone, Urine Neg (Neg); Opiate, Urine Neg (Neg); Phencyclidine, Urine Neg (Neg)
[2018-12-17] MEDS ORDERED: POTASSIUM CHLORIDE 20 MEQ TABCR PO STA (03:40)
[2018-12-17] MEDS ORDERED: HydrALAZINE TAB 50 MG TAB PO STA (03:40)
[2018-12-17] MEDS ORDERED: NITROGLYCERIN SL 0.4 MG/TAB TAB SL STA (04:03)
--- NOTE | 2018-12-17 04:24 | History & Physical Report ---
Date of Service December 17, 2018 Assessment & Plan (1) Chest pain: Secondary to hypertensive urgency secondary to alcohol withdrawal, ? Medication compliance Hypokalemia secondary to emesis, diarrhea L GIB rule out C. difficile chronic respiratory failure secondary to COPD on home O2 PAF on Eliquis, NSR history of TIAs as per records DM 2 insulin requiring, well-controlled as of recent inpatient hemoglobin A1c of 7.28 September 2018 mood disorder/paranoid schizophrenia history ongoing cocaine/alcohol/tobacco abuse OBS Medical telemetry Facilitate home BP meds, may need titration DT precautions Replace potassium CT abdomen pelvis RE painful L GIB Stool C. difficile GI consult if with persistent LGIB despite negative stool C. difficile trend H&H. Transfuse PRBC if hemoglobin less than 8 (hx TIAs) Appropriate to hold Eliquis for now Consider stopping Eliquis on discharge given patient's ongoing alcohol abuse, hx falls Basal insulin adjusted for clear liquid diet for now, ISS BG goal 1 40-180 Nicotine patch DVT prophylaxis. SCDs RE GI bleed Full code History of Present Illness Chief Complaint: Chest pain, abdominal pain, bloody stools Primary Care Provider: Yovani Arellano MD History obtained from patient and records. Medical history significant for chronic respiratory failure secondary to COPD on home O2, PAF on Eliquis, history of TIAs, hypertension, DM 2 insulin requiring, mood disorder/paranoid schizophrenia, history ongoing cocaine/alcohol/tobacco abuse, hx pancreatitis. Recent confinement last month for pancreatitis. Patient few days history of achy chest, central abdominal pain going to the back with shortness of breath, no unusual cough symptoms. Patient also complaining of nausea, bilious emesis, bloody stools. No fever, no chills. Achy headache symptoms. Intractable symptoms at the ER. Allergies Allergy/AdvReac Type Severity Reaction Status Date / Time haloperidol Allergy Severe TONGUE Verified 12/01/18 20:38 SWELLING insulin lispro Allergy Intermediate HIVES Verified 12/01/18 20:38 phenol Allergy Intermediate HIVES Verified 12/01/18 20:38 citalopram Allergy Mild ITCHING Verified 12/01/18 20:38 sulfamethoxazole Allergy Mild RASH Verified 12/01/18 20:38 trimethoprim Allergy Mild RASH Verified 12/01/18 20:38 Bactrim Allergy Unknown RASH Verified 12/01/17 16:09 Penicillins Allergy Unknown UNKNOWN Verified 12/01/18 20:38 topiramate AdvReac Severe SEIZURE Verified 12/01/18 20:38 LIKE ACTIVITY morphine AdvReac Mild HEADACHE Verified 12/01/18 20:38 oxycodone AdvReac Mild ITCH Verified 10/10/18 13:23 Margarine Allergy Severe RASH Uncoded 10/10/18 13:23 Home Medications Home Medications Medication Instructions Recorded Confirmed Type Jerson Boudreaux U-100 Insulin 60 unit SUBCUT HS 07/05/18 12/17/18 History albuterol sulfate 2.5 mg INHALATION Q4 PRN 07/05/18 12/17/18 History hydralazine 50 mg PO BID 07/05/18 12/17/18 History omeprazole 20 mg PO BID 07/05/18 12/17/18 History trazodone 200 mg PO HS PRN 07/05/18 12/17/18 History valacyclovir 500 mg PO QAM 07/05/18 12/17/18 History valsartan 320 mg PO QAM 07/05/18 12/17/18 History Eliquis 5 mg PO QAM 09/29/18 12/17/18 History cyclobenzaprine 10 mg PO BID PRN 09/29/18 12/17/18 History lactulose [Constulose] 30 ml PO DAILY PRN 09/29/18 12/17/18 History ranitidine HCl 300 mg PO HS 09/29/18 12/17/18 History thiamine HCl (vitamin B1) [Vitamin 100 mg PO QAM #30 tab 10/13/18 12/17/18 Rx B-1] gabapentin 300 mg PO TID 11/08/18 12/17/18 History hydrochlorothiazide 12.5 mg PO DAILY 11/08/18 12/17/18 History meclizine 12.5 mg PO DIRECTED PRN 11/08/18 12/17/18 History metformin 500 mg PO BID 11/08/18 12/17/18 History cetirizine [Zyrtec] 10 mg PO DAILY 12/01/18 12/17/18 History diclofenac sodium [Voltaren] 4 g TOPICAL QID PRN 12/01/18 12/17/18 History diltiazem HCl [Cartia XT] 300 mg PO DAILY 12/01/18 12/17/18 History ergocalciferol (vitamin D2) 50,000 unit PO WK 12/01/18 12/17/18 History [Vitamin D2] fluticasone propion-salmeterol 1 puff INHALATION DAILY 12/01/18 12/17/18 History [AirDuo RespiClick] folic acid 1 mg PO DAILY 12/01/18 12/17/18 History hydroxyzine HCl 10 mg PO Q8 PRN 12/01/18 12/17/18 History insulin lispro [Admelog SoloStar 0 unit SUBCUT TIDM 12/01/18 12/17/18 History U-100 Insulin] potassium chloride 10 meq PO DAILY 12/01/18 12/17/18 History Past Med/Surg History Medical History DM type 2 (diabetes mellitus, type 2) Alcohol abuse Suicidal ideations Bronchitis (Acute) Prolonged QT interval Non-sustained ventricular tachycardia (Acute) Tobacco use disorder (Chronic) History of opioid abuse (Chronic) Cocaine abuse (Chronic) Hx of suicide attempt (Resolved) Diabetes (Chronic) COPD (chronic obstructive pulmonary disease) (Chronic) Fatty liver (Chronic) Elevated troponin (Chronic) Obesity (Chronic) HTN (hypertension) (Chronic) Sleep apnea (Chronic) Neuropathy (Chronic) Sciatic nerve disease (Chronic) Atrial fibrillation (Chronic) Epistaxis, recurrent (Chronic) Chronic generalized pain disorder (Chronic) Schizoaffective disorder, bipolar type (Chronic) COPD with exacerbation (Acute) Alcohol induced acute pancreatitis (Acute) ETOH abuse Rectal bleeding (Acute) EtOH dependence (Inactive) Surgical History H/O ovarian cystectomy (Resolved) H/O foot surgery (Resolved) Social History Preferred Language: [place] Islander Communication Ability: Effective Visual Impairment: No Limitations [employer] Required: No Beliefs That Will Affect Care: None marital status: Single Current Living Situation: Family Current Living Situation Comment: lives with brothers? current occupational status: unemployed and disabled Other Information That Helps Us Care for You: No Feels Safe at Home: Yes Safety Concerns: Feels Safe At This Time Smoking Status: Current every day smoker Tobacco Type: cigarettes Cigarettes Per Day: 15 Do You Dip or Chew Tobacco: No Second Hand Exposure: Yes Tobacco Cessation Education Requested by Patient: No Hx Alcohol Use: Yes Alcohol type: hard liquor Hx Substance Use: No Review of Systems Review of Systems: As per HPI, all 10 systems reviewed, all other ROS negative Physical Exam Physical Exam: GENERAL: uncomfortable, obese, no respiratory distress, alcoholic fetor SKIN: Normal color, warm HEENT: [place] palpebral conjunctivae, no ptosis, dry buccal mucosa NECK : Supple, short, no tenderness CHEST : Expiratory wheezes, no chest wall tenderness BACK : Low back tenderness, negative straight leg raise HEART : RRR, no obvious murmurs ABDOMEN: distention, central abdominal tenderness EXTREMITIES : minimal LE swelling, no LE tenderness, no other conspicuous deformities noted NEUROLOGIC : Coherent, no facial asymmetry, gait and stance not assessed Results & Data Vital Signs (Past 12 Hours) Vital Signs Temp Pulse Pulse Resp BP BP Pulse Ox 12/17/18 04:15 96 H 18 168/82 H 95 12/17/18 02:24 91 H 24 96 12/17/18 02:01 93 H 21 177/109 H 95 12/17/18 02:00 90 21 96 12/17/18 01:32 86 98 12/17/18 01:31 85 25 H 186/108 H 95 12/17/18 01:30 89 19 98 12/17/18 01:01 100 H 27 H 171/99 H 12/17/18 01:00 89 97 12/17/18 00:35 97 12/17/18 00:31 100 H 153/100 H 97 12/17/18 00:30 99 H 95 12/17/18 00:19 103 H 97 12/17/18 00:17 105 H 146/98 H 97 12/17/18 00:03 37.0 C 109 H 20 161/94 H 96 Laboratory Results Laboratory Results WBC 5.45 K/uL (4.8-10.8) 12/17/18 00:32 RBC 3.89 M/uL (4.2-5.4) L 12/17/18 00:32 Hgb 13.3 g/dL (12.0-16.0) 12/17/18 00:32 Hct 38.8 % (37-47) 12/17/18 00:32 MCV 99.7 fL (80-100) 12/17/18 00:32 MCH 34.2 pg (25-34) H 12/17/18 00:32 MCHC 34.3 g/dL (32-36) 12/17/18 00:32 RDW Std Deviation 48.4 fL (36.4-46.3) H 12/17/18 00:32 RDW Coeff of Ally 13.2 % (11.5-14.5) 12/17/18 00:32 Plt Count 214 K/uL (130-400) 12/17/18 00:32 MPV 9.9 fL (7.4-10.4) 12/17/18 00:32 Immature Gran % (Auto) 0.2 % 12/17/18 00:32 Neut % (Auto) 49.0 % 12/17/18 00:32 Lymph % (Auto) 41.7 % 12/17/18 00:32 Knott % (Auto) 6.4 % 12/17/18 00:32 Eos % (Auto) 2.0 % 12/17/18 00:32 Baso % (Auto) 0.7 % 12/17/18 00:32 Immature Gran # (Auto) 0.01 K/uL (0.00-0.02) 12/17/18 00:32 Neut # (Auto) 2.67 K/uL (1.4-6.5) 12/17/18 00:32 Lymph # (Auto) 2.27 K/uL (1.2-3.4) 12/17/18 00:32 Knott # (Auto) 0.35 K/uL (0.11-0.59) 12/17/18 00:32 Eos # (Auto) 0.11 K/uL (0-0.5) 12/17/18 00:32 Baso # (Auto) 0.04 K/uL (0-0.2) 12/17/18 00:32 PT 11.3 Seconds (9.0-12.0) 12/17/18 00:32 INR 1.1 (0.9-1.1) 12/17/18 00:32 APTT 27.1 Seconds (21.0-31.0) 12/17/18 00:32 PTT Ratio 1.0 12/17/18 00:32 Sodium 137 mmol/L (136-145) 12/17/18 00:32 Potassium 3.4 mmol/L (3.5-5.1) L 12/17/18 00:32 Chloride 101 mmol/L (98-107) 12/17/18 00:32 Carbon Dioxide 25 mmol/L (21-32) 12/17/18 00:32 Anion Gap 11.0 (3-11) 12/17/18 00:32 BUN 5 mg/dl (7-18) L 12/17/18 00:32 Creatinine 0.68 mg/dl (0.6-1.2) 12/17/18 00:32 Est Cr Clr Drug Dosing 131.7 ml/min 12/17/18 00:32 Est GFR ( Amer) 114.9 12/17/18 00:32 Est GFR (Non-Af Amer) 99.2 12/17/18 00:32 BUN/Creatinine Ratio 7.9 (10-20) L 12/17/18 00:32 Glucose 155 mg/dl (70-99) H 12/17/18 00:32 Calcium 8.9 mg/dl (8.5-10.1) 12/17/18 00:32 Magnesium 1.3 mg/dl (1.8-2.4) L 12/17/18 00:32 Total Bilirubin 0.3 mg/dl (0.2-1) 12/17/18 00:32 AST 55 U/L (15-37) H 12/17/18 00:32 ALT 70 U/L (12-78) 12/17/18 00:32 Alkaline Phosphatase 127 U/L (45-117) H 12/17/18 00:32 Troponin I 0.259 ng/ml (0-0.045) H* 12/17/18 02:12 Total Protein 7.3 gm/dl (6.4-8.2) 12/17/18 00:32 Albumin 3.3 gm/dl (3.4-5.0) L 12/17/18 00:32 Globulin 4.0 gm/dl (2.5-4.0) 12/17/18 00:32 Albumin/Globulin Ratio 0.8 (0.9-2) L 12/17/18 00:32 Lipase 313 U/L (73-393) 12/17/18 00:32 TSH 0.952 uIu/ml (0.300-4.500) 12/17/18 00:32 Urine Color Yellow 12/17/18 01:50 Urine Appearance Clear (Clear) 12/17/18 01:50 Urine pH 6.5 (4.5-7.5) 12/17/18 01:50 Ur Specific [place] 1.011 (1.000-1.030) 12/17/18 01:50 Urine Protein Negative (Negative) 12/17/18 01:50 Urine Glucose (UA) Negative (Negative) 12/17/18 01:50 Urine Ketones Trace (Negative) H 12/17/18 01:50 Urine Blood Negative (Negative) 12/17/18 01:50 Urine Nitrite Negative (Negative) 12/17/18 01:50 Urine Bilirubin Negative (Negative) 12/17/18 01:50 Urine Urobilinogen Negative (Negative) 12/17/18 01:50 Ur Leukocyte Esterase Negative (Negative) 12/17/18 01:50 Urine Opiates Screen Neg (Neg) 12/17/18 01:50 Ur Methadone, Qual Neg (Neg) 12/17/18 01:50 Urine Barbiturates Neg (Neg) 12/17/18 01:50 Ur Phencyclidine (PCP) Neg (Neg) 12/17/18 01:50 U Amphetamin/Meth Scrn Neg (Neg) 12/17/18 01:50 MDMA (Ecstasy) Screen Neg (Neg) 12/17/18 01:50 U Benzodiazepines Scrn Neg (Neg) 12/17/18 01:50 Ur Cocaine Metabolite Neg (Neg) 12/17/18 01:50 U Marijuana (THC) Screen Neg (Neg) 12/17/18 01:50 Ethyl Alcohol mg/dL 49.0 mg/dl (0-3) H 12/17/18 02:37 Diagnostic Findings Chest x-ray as per my interpretation atelectasis EKG as per my interpretation : Rate 105, sinus tachycardia, LAD, LAFB, SD WP, no ischemia CT head initial read no acute pathology
[2018-12-17] MEDS ORDERED: LORazepam 2 MG/4 ML VIAL ONE (05:04)
[2018-12-17] MEDS ORDERED: IOVERSOL 100ml IV PRN (05:23)
[2018-12-17] MEDS ORDERED: GLUCAGON FOR INJ 1 MG VIAL SQ PRN (05:26)
[2018-12-17] MEDS ORDERED: NITROGLYCERIN SL 0.4 MG/TAB TAB SL PRN (05:26)
[2018-12-17] MEDS ORDERED: CARBOHYDRATES FOR HYPOGLYCEMIA PO PRN (05:26)
[2018-12-17] MEDS ORDERED: LORazepam 1 MG/2 ML VIAL IV PRN (05:26)
[2018-12-17] MEDS ORDERED: TRAZODONE HCL 100 MG TAB PO PRN (05:26)
[2018-12-17] MEDS ORDERED: GLUCOSE 10 TABS/TUBE PO PRN (05:26)
[2018-12-17] MEDS ORDERED: GLUCOSE 40% GEL 15 GM TUBE PO PRN (05:26)
[2018-12-17] MEDS ORDERED: DEXTROSE 50% 50 ML SYRINGE IV PRN (05:26)
[2018-12-17] MEDS ORDERED: PROCHLORPERAZINE 5 MG in SYRINGE 4 ML IV PRN (05:26)
[2018-12-17] MEDS ORDERED: LORazepam 3 MG/6 ML VIAL IV PRN (05:26)
[2018-12-17] MEDS ORDERED: LORazepam 2 MG/4 ML VIAL IV PRN (05:26)
[2018-12-17] MEDS ORDERED: ACETAMINOPHEN 325 MG TAB PO PRN (05:26)
[2018-12-17] MEDS ORDERED: ATIVAN IV ALCOHOL WITHDRAWL IV SCH (05:26)
[2018-12-17] MEDS ORDERED: hydrOXYzine HCl 10 MG TAB PO PRN (05:26)
[2018-12-17] MEDS: MAGNESIUM SULFATE / D5W 1 GM/100 ML BAG IV SCH ×3 (06:03→08:09)
[2018-12-17 06:04] LABS: Hemoglobin 12.4 g/dL (12.0-16.0)
[2018-12-17] MEDS ORDERED: MULTI-VITAMIN INFUSION 10 ML, THIAMINE HCL 100 MG, FOLIC ACID 1 MG, POTASSIUM CHLORIDE ... IV STA (06:09)
[2018-12-17] MEDS: HYDROmorphone INJ 0.5 MG/0.5 ML SYR IV PRN ×3 (06:31→18:28)
--- NOTE | 2018-12-17 06:33 | CT Scan Report ---
CT head/brain wo con CLINICAL HISTORY: acute headache, vertigo COMPARISON STUDY: 11/08/2018 TECHNIQUE: Axial CT of the brain is performed from the vertex to the skull base. IV contrast was not administered for this examination. A dose lowering technique was utilized adhering to the principles of ALARA. CT DOSE: 537.48 mGy.cm FINDINGS: No intra or extra-axial mass lesions are visualized. There is no CT evidence of acute cortical infarc tion. There is no evidence of midline shift. There is no acute hemorrhage. No calvarial fractures ar e visualized. There are minimal white matter hypodensities likely on a small vessel basis. There is no evidence of pathologic ventricular dilatation. There is polypoid mucosal thickening within the right maxillary sinus and right ethmoid sinus. IMPRESSION: No acute intracranial findings Electronically signed by: Dawood Diaz M.D. 12/17/2018 6:31 AM
--- NOTE | 2018-12-17 06:49 | XRay Report ---
XR chest 1V portable CLINICAL HISTORY: Atypical chest pain COMPARISON STUDY: 12/01/2018 FINDINGS: The cardiac and mediastinal contours are normal. There is no evidence of focal pulmonary co nsolidation. There is no evidence of failure. No pleural effusions are visualized.[ Chronic changes i nvolve the left shoulder. IMPRESSION: No active disease in the chest. Electronically signed by: Dawood Diaz M.D. 12/17/2018 6:48 AM
--- NOTE | 2018-12-17 06:51 | CT Scan Report ---
ABDOMEN AND PELVIS CT WITH IV CONTRAST CT DOSE: 1701.03 mGy.cm HISTORY: Acute generalized abdominal pain abd pain TECHNIQUE: Multiaxial CT images of the abdomen and pelvis were performed following the use of intrave nous contrast. A dose lowering technique was utilized adhering to the principles of ALARA. COMPARISON STUDY: MRCP 11/09/2018, CT 11/08/2018 FINDINGS: The lung bases are generally clear. 2 mm solid nodule of the basal left lower lobe, indeterminate how ever likely benign. There is no pneumatosis or pneumoperitoneum identified. The imaged inferior cardi ac chambers appear unremarkable. Severe hepatic steatosis. No evidence of cirrhosis or focal hepatic mass lesion. Patency of the hepat ic and portal veins. Spleen, gallbladder, pancreas and adrenal glands are unremarkable. Kidneys, uret ers and urinary bladder, uterus and adnexa are unremarkable. Mild calcified plaque of the aorta witho ut aneurysm. No adenopathy. No bowel obstruction or bowel wall thickening. Hyperdense material within several loops of small bowel suggestive of medicinal material or enteric contrast. No ascites or mes enteric inflammation. Normal appendix and terminal ileum. Soft tissues are within normal limits. Dege nerative changes of the spine, pelvis and hips. IMPRESSION: 1. No acute intra-abdominal or intrapelvic abnormality identified. 2. No bowel obstruction or bowel wall thickening. Normal appendix. 3. Hepatic steatosis. 4. Additional findings as above. Electronically signed by: Lake Harrell M.D. 12/17/2018 6:50 AM
[2018-12-17] MEDS: NICOTINE 14 MG/24 HR PATCH TD SCH (07:30)
[2018-12-17] MEDS: VALACYCLOVIR HCL 500 MG TABLET PO SCH (07:31)
[2018-12-17] MEDS: [UNRECOGNIZED DRUG - OTHER] SCH (07:31)
[2018-12-17] MEDS: CETIRIZINE HCL 10 MG TABLET PO SCH (07:31)
[2018-12-17] MEDS: PANTOprazole 40 MG TAB PO SCH ×2 (07:31→20:25)
[2018-12-17] MEDS: FOLIC ACID 1 MG TAB PO SCH (07:32)
[2018-12-17] MEDS: GABAPENTIN 300 MG CAP PO SCH ×3 (07:32→20:25)
[2018-12-17] MEDS: dilTIAZem HCL 300 MG CAPCR PO SCH (07:32)
[2018-12-17] MEDS: VALSARTAN 80 MG TAB PO SCH (07:32)
[2018-12-17] MEDS: HydrALAZINE TAB 50 MG TAB PO SCH ×2 (07:33→20:26)
[2018-12-17] MEDS: INSULIN GLARGINE SOLOSTAR 100 UNITS/ML 3 ML PEN SQ SCH (08:09)
[2018-12-17] MEDS: INSULIN ASPART 100 UNITS/ML 3 ML PEN SC SCH ×4 (08:09→20:28)
--- NOTE | 2018-12-17 09:55 | Cardiology Consultation ---
Date of Consultation December 17, 2018 Assessment & Plan (1) Chest pain: 2. Elevated troponin 3. Alcohol intoxication 4. Paroxysmal atrial fibrillation 5.Hypertension Patient with longstanding history of atypical chest pain and chronically minimally elevated troponin admitted earlier today with chest pain, abdominal pain and associated GI symptoms. Her chronic chest pain has been evaluated with cardiac cath in the past demonstrating normal coronary arteries. Additionally, it is reproducible on exam. Troponin is chronically elevated and remains at her baseline. EKG without acute ST changes. No further ischemic evaluation recommended at this time unless she should have new objective findings concerning for ischemic heart disease. She is currently in sinus rhythm. She has a history of paroxysmal atrial fibrillation. She is on Eliquis for anticoagulation but admits to noncompliance with medications. Cardiology will sign off at this time. History of Present Illness Attending Physician: Viktor Durant MD History of Present Illness Mrs. Judge is a 53 year old female with a medical history significant for hypertension, chronically elevated troponin, paroxysmal atrial fibrillation, COPD, diabetes, pulmonary embolus, schizoaffective disorder and drug/alcohol abuse. She is being seen in consultation in the setting of elevated troponin and chest pain. She has been seen in the past in our office by Dr. Castillo but is noncompliant with routine office visits. Last visit was 2016. Patient has a long standing history of atypical chest pain and chronic mildly elevated troponin often in the setting of drug/alcohol use. She underwent cardiac catheterization in October 2014 which showed no evidence of coronary artery disease. She was admitted to [facility] earlier today with chest and abdominal pain. Her symptoms have been occurring intermittently over the past 2-3 days. Her symptoms are similar to her usual chest and abdominal pain. She complains sharp pain in her left breast was radiates to the right side. She also has epigastric and right-sided abdominal discomfort. She has had associated nausea, vomiting and diarrhea. She also reports 1 episode of melena yesterday. Chest pain is not worse with exertion and occurs at random. Typically symptoms last several minutes before resolving spontaneously. She has stable shortness of breath with exertion. No shortness of breath at rest, orthopnea PND or peripheral edema. No palpitations, lightheadedness, near- syncope or syncope. She currently complains of abdominal pain but no chest pain since about 7:00 a.m.. She admits to consuming large amounts of alcohol, about 1 pint of [place] per day. She denies any recent drug use. She admits to being noncompliant with medications. Social history: Lives with brother. Disabled. Smokes 1/2 pack per day. Drinks a significant amount of alcohol. Denies current drug use. Allergies Allergy/AdvReac Type Severity Reaction Status Date / Time haloperidol Allergy Severe TONGUE Verified 12/01/18 20:38 SWELLING insulin lispro Allergy Intermediate HIVES Verified 12/01/18 20:38 phenol Allergy Intermediate HIVES Verified 12/01/18 20:38 citalopram Allergy Mild ITCHING Verified 12/01/18 20:38 sulfamethoxazole Allergy Mild RASH Verified 12/01/18 20:38 trimethoprim Allergy Mild RASH Verified 12/01/18 20:38 Bactrim Allergy Unknown RASH Verified 12/01/17 16:09 Penicillins Allergy Unknown UNKNOWN Verified 12/01/18 20:38 topiramate AdvReac Severe SEIZURE Verified 12/01/18 20:38 LIKE ACTIVITY morphine AdvReac Mild HEADACHE Verified 12/01/18 20:38 oxycodone AdvReac Mild ITCH Verified 10/10/18 13:23 Margarine Allergy Severe RASH Uncoded 10/10/18 13:23 Home Medications Home Medications Medication Instructions Recorded Confirmed Type Jerson Boudreaux U-100 Insulin 60 unit SUBCUT HS 07/05/18 12/17/18 History albuterol sulfate 2.5 mg INHALATION Q4 PRN 07/05/18 12/17/18 History hydralazine 50 mg PO BID 07/05/18 12/17/18 History omeprazole 20 mg PO BID 07/05/18 12/17/18 History trazodone 200 mg PO HS PRN 07/05/18 12/17/18 History valacyclovir 500 mg PO QAM 07/05/18 12/17/18 History valsartan 320 mg PO QAM 07/05/18 12/17/18 History Eliquis 5 mg PO QAM 09/29/18 12/17/18 History cyclobenzaprine 10 mg PO BID PRN 09/29/18 12/17/18 History lactulose [Constulose] 30 ml PO DAILY PRN 09/29/18 12/17/18 History ranitidine HCl 300 mg PO HS 09/29/18 12/17/18 History thiamine HCl (vitamin B1) [Vitamin 100 mg PO QAM #30 tab 10/13/18 12/17/18 Rx B-1] gabapentin 300 mg PO TID 11/08/18 12/17/18 History hydrochlorothiazide 12.5 mg PO DAILY 11/08/18 12/17/18 History meclizine 12.5 mg PO DIRECTED PRN 11/08/18 12/17/18 History metformin 500 mg PO BID 11/08/18 12/17/18 History cetirizine [Zyrtec] 10 mg PO DAILY 12/01/18 12/17/18 History diclofenac sodium [Voltaren] 4 g TOPICAL QID PRN 12/01/18 12/17/18 History diltiazem HCl [Cartia XT] 300 mg PO DAILY 12/01/18 12/17/18 History ergocalciferol (vitamin D2) 50,000 unit PO WK 12/01/18 12/17/18 History [Vitamin D2] fluticasone propion-salmeterol 1 puff INHALATION DAILY 12/01/18 12/17/18 History [AirDuo RespiClick] folic acid 1 mg PO DAILY 12/01/18 12/17/18 History hydroxyzine HCl 10 mg PO Q8 PRN 12/01/18 12/17/18 History insulin lispro [Admelog SoloStar 0 unit SUBCUT TIDM 12/01/18 12/17/18 History U-100 Insulin] potassium chloride 10 meq PO DAILY 12/01/18 12/17/18 History Patient History Medical History DM type 2 (diabetes mellitus, type 2) Alcohol abuse Suicidal ideations Bronchitis (Acute) Prolonged QT interval Non-sustained ventricular tachycardia (Acute) Tobacco use disorder (Chronic) History of opioid abuse (Chronic) Cocaine abuse (Chronic) Hx of suicide attempt (Resolved) Diabetes (Chronic) COPD (chronic obstructive pulmonary disease) (Chronic) Fatty liver (Chronic) Elevated troponin (Chronic) Obesity (Chronic) HTN (hypertension) (Chronic) Sleep apnea (Chronic) Neuropathy (Chronic) Sciatic nerve disease (Chronic) Atrial fibrillation (Chronic) Epistaxis, recurrent (Chronic) Chronic generalized pain disorder (Chronic) Schizoaffective disorder, bipolar type (Chronic) COPD with exacerbation (Acute) Alcohol induced acute pancreatitis (Acute) ETOH abuse Rectal bleeding (Acute) EtOH dependence (Inactive) Surgical History H/O ovarian cystectomy (Resolved) H/O foot surgery (Resolved) Social History Preferred Language: Tajik Communication Ability: Effective Visual Impairment: No Limitations Range Feeder Required: No Beliefs That Will Affect Care: None marital status: Single Current Living Situation: Family Current Living Situation Comment: lives with brothers? current occupational status: unemployed and disabled Other Information That Helps Us Care for You: No Feels Safe at Home: Yes Safety Concerns: Feels Safe At This Time Smoking Status: Current every day smoker Tobacco Type: cigarettes Cigarettes Per Day: 15 Do You Dip or Chew Tobacco: No Second Hand Exposure: Yes Tobacco Cessation Education Requested by Patient: No Hx Alcohol Use: Yes Alcohol type: hard liquor Hx Substance Use: No Review of Systems Review of Systems: All systems reviewed & are unremarkable except as noted in HPI & below Physical Exam Physical Exam: General: No acute distress, comfortable. HEENT: Head is normal. PERRLA. EOMI. Sclerae anicteric. Ears, nose and throat unremarkable. Mucous membranes moist. Neck: Normal carotid upstrokes, no bruits. No appreciable JVD. Lungs: Clear to auscultation bilaterally without rales, rhonchi or wheezes. Cardiac: Regular rate and rhythm. S1-S2 normal. No appreciable murmur, gallop or rub. Significant chest wall tenderness with very minimal palpation Abdomen: Soft and nontender. Bowel sounds normal. No mass or organomegaly. No abdominal bruit. Extremities/vascular: Well perfused. No peripheral edema. Radial, DP and PT pulses 2+ bilaterally Skin: No rash or abnormal lesions. Normal turgor. Neurologic: Nonfocal Psychiatric: Affect appropriate. Alert and oriented. Results & Data Vital Signs (Past 12 Hours) Vital Signs Temp Pulse Pulse Resp BP BP BP 12/17/18 08:30 91 H 12/17/18 06:27 36.9 C 91 H 20 152/81 H 12/17/18 05:38 36.6 C 97 H 22 150/83 H 12/17/18 05:30 97 H 12/17/18 05:10 92 H 20 169/89 H 12/17/18 04:24 99 H 20 159/113 H 12/17/18 04:15 96 H 18 168/82 H 12/17/18 02:24 91 H 24 12/17/18 02:01 93 H 21 177/109 H 12/17/18 02:00 90 21 12/17/18 01:32 86 12/17/18 01:31 85 25 H 186/108 H 12/17/18 01:30 89 19 12/17/18 01:01 100 H 27 H 171/99 H 12/17/18 01:00 89 12/17/18 00:35 12/17/18 00:31 100 H 153/100 H 12/17/18 00:30 99 H 12/17/18 00:19 103 H 12/17/18 00:17 105 H 146/98 H 12/17/18 00:03 37.0 C 109 H 20 161/94 H Pulse Ox 12/17/18 08:30 12/17/18 06:27 95 12/17/18 05:38 92 12/17/18 05:30 12/17/18 05:10 99 12/17/18 04:24 96 12/17/18 04:15 95 12/17/18 02:24 96 12/17/18 02:01 95 12/17/18 02:00 96 12/17/18 01:32 98 12/17/18 01:31 95 12/17/18 01:30 98 12/17/18 01:01 12/17/18 01:00 97 12/17/18 00:35 97 12/17/18 00:31 97 12/17/18 00:30 95 12/17/18 00:19 97 12/17/18 00:17 97 12/17/18 00:03 96 Laboratory Results Laboratory Results - last 24 hr 12/17/18 12/17/18 12/17/18 00:32 00:32 00:32 WBC 5.45 RBC 3.89 L Hgb 13.3 Hct 38.8 MCV 99.7 MCH 34.2 H MCHC 34.3 RDW Std Deviation 48.4 H RDW Coeff of Ally 13.2 Plt Count 214 MPV 9.9 Immature Gran % (Auto) 0.2 Neut % (Auto) 49.0 Lymph % (Auto) 41.7 [place] % (Auto) 6.4 Eos % (Auto) 2.0 Baso % (Auto) 0.7 Immature Gran # (Auto) 0.01 Neut # (Auto) 2.67 Lymph # (Auto) 2.27 [place] # (Auto) 0.35 Eos # (Auto) 0.11 Baso # (Auto) 0.04 PT 11.3 INR 1.1 APTT 27.1 PTT Ratio 1.0 Sodium 137 Potassium 3.4 L Chloride 101 Carbon Dioxide 25 Anion Gap 11.0 BUN 5 L Creatinine 0.68 Est Cr Clr Drug Dosing 131.7 Est GFR ( Amer) 114.9 Est GFR (Non-Af Amer) 99.2 BUN/Creatinine Ratio 7.9 L Glucose 155 H POC Glucose Calcium 8.9 Magnesium 1.3 L Total Bilirubin 0.3 AST 55 H ALT 70 Alkaline Phosphatase 127 H Troponin I 0.266 H* Total Protein 7.3 Albumin 3.3 L Globulin 4.0 Albumin/Globulin Ratio 0.8 L Lipase 313 TSH 0.952 Urine Color Urine Appearance Urine pH Ur Specific [place] Urine Protein Urine Glucose (UA) Urine Ketones Urine Blood Urine Nitrite Urine Bilirubin Urine Urobilinogen Ur Leukocyte Esterase Urine Opiates Screen Ur Methadone, Qual Urine Barbiturates Ur Phencyclidine (PCP) U Amphetamin/Meth Scrn MDMA (Ecstasy) Screen U Benzodiazepines Scrn Ur Cocaine Metabolite U Marijuana (THC) Screen Ethyl Alcohol mg/dL Hepatitis C Ab Screen Blood Type Antibody Screen 12/17/18 12/17/18 12/17/18 01:50 01:50 02:12 WBC RBC Hgb Hct MCV MCH MCHC RDW Std Deviation RDW Coeff of Ally Plt Count MPV Immature Gran % (Auto) Neut % (Auto) Lymph % (Auto) [place] % (Auto) Eos % (Auto) Baso % (Auto) Immature Gran # (Auto) Neut # (Auto) Lymph # (Auto) [place] # (Auto) Eos # (Auto) Baso # (Auto) PT INR APTT PTT Ratio Sodium Potassium Chloride Carbon Dioxide Anion Gap BUN Creatinine Est Cr Clr Drug Dosing Est GFR ( Amer) Est GFR (Non-Af Amer) BUN/Creatinine Ratio Glucose POC Glucose Calcium Magnesium Total Bilirubin AST ALT Alkaline Phosphatase Troponin I 0.259 H* Total Protein Albumin Globulin Albumin/Globulin Ratio Lipase TSH Urine Color Yellow Urine Appearance Clear Urine pH 6.5 Ur Specific [place] 1.011 Urine Protein Negative Urine Glucose (UA) Negative Urine Ketones Trace H Urine Blood Negative Urine Nitrite Negative Urine Bilirubin Negative Urine Urobilinogen Negative Ur Leukocyte Esterase Negative Urine Opiates Screen Neg Ur Methadone, Qual Neg Urine Barbiturates Neg Ur Phencyclidine (PCP) Neg U Amphetamin/Meth Scrn Neg MDMA (Ecstasy) Screen Neg U Benzodiazepines Scrn Neg Ur Cocaine Metabolite Neg U Marijuana (THC) Screen Neg Ethyl Alcohol mg/dL Hepatitis C Ab Screen Blood Type Antibody Screen 12/17/18 12/17/18 12/17/18 02:12 02:37 05:54 WBC RBC Hgb 12.4 Hct 36.0 L MCV MCH MCHC RDW Std Deviation RDW Coeff of Ally Plt Count MPV Immature Gran % (Auto) Neut % (Auto) Lymph % (Auto) [place] % (Auto) Eos % (Auto) Baso % (Auto) Immature Gran # (Auto) Neut # (Auto) Lymph # (Auto) [place] # (Auto) Eos # (Auto) Baso # (Auto) PT INR APTT PTT Ratio Sodium Potassium Chloride Carbon Dioxide Anion Gap BUN Creatinine Est Cr Clr Drug Dosing Est GFR ( Amer) Est GFR (Non-Af Amer) BUN/Creatinine Ratio Glucose POC Glucose Calcium Magnesium Total Bilirubin AST ALT Alkaline Phosphatase Troponin I Total Protein Albumin Globulin Albumin/Globulin Ratio Lipase TSH Urine Color Urine Appearance Urine pH Ur Specific [place] Urine Protein Urine Glucose (UA) Urine Ketones Urine Blood Urine Nitrite Urine Bilirubin Urine Urobilinogen Ur Leukocyte Esterase Urine Opiates Screen Ur Methadone, Qual Urine Barbiturates Ur Phencyclidine (PCP) U Amphetamin/Meth Scrn MDMA (Ecstasy) Screen U Benzodiazepines Scrn Ur Cocaine Metabolite U Marijuana (THC) Screen Ethyl Alcohol mg/dL 49.0 H Hepatitis C Ab Screen Neg Blood Type Antibody Screen 12/17/18 12/17/18 12/17/18 05:54 06:07 07:22 WBC RBC Hgb Hct MCV MCH MCHC RDW Std Deviation RDW Coeff of Ally Plt Count MPV Immature Gran % (Auto) Neut % (Auto) Lymph % (Auto) [place] % (Auto) Eos % (Auto) Baso % (Auto) Immature Gran # (Auto) Neut # (Auto) Lymph # (Auto) [place] # (Auto) Eos # (Auto) Baso # (Auto) PT INR APTT PTT Ratio Sodium Potassium Chloride Carbon Dioxide Anion Gap BUN Creatinine Est Cr Clr Drug Dosing Est GFR ( Amer) Est GFR (Non-Af Amer) BUN/Creatinine Ratio Glucose POC Glucose 133 H 172 H Calcium Magnesium Total Bilirubin AST ALT Alkaline Phosphatase Troponin I Total Protein Albumin Globulin Albumin/Globulin Ratio Lipase TSH Urine Color Urine Appearance Urine pH Ur Specific [place] Urine Protein Urine Glucose (UA) Urine Ketones Urine Blood Urine Nitrite Urine Bilirubin Urine Urobilinogen Ur Leukocyte Esterase Urine Opiates Screen Ur Methadone, Qual Urine Barbiturates Ur Phencyclidine (PCP) U Amphetamin/Meth Scrn MDMA (Ecstasy) Screen U Benzodiazepines Scrn Ur Cocaine Metabolite U Marijuana (THC) Screen Ethyl Alcohol mg/dL Hepatitis C Ab Screen Blood Type O Positive Antibody Screen NEGATIVE 12/17/18 11:43 WBC RBC Hgb Hct MCV MCH MCHC RDW Std Deviation RDW Coeff of Ally Plt Count MPV Immature Gran % (Auto) Neut % (Auto) Lymph % (Auto) [place] % (Auto) Eos % (Auto) Baso % (Auto) Immature Gran # (Auto) Neut # (Auto) Lymph # (Auto) [place] # (Auto) Eos # (Auto) Baso # (Auto) PT INR APTT PTT Ratio Sodium Potassium Chloride Carbon Dioxide Anion Gap BUN Creatinine Est Cr Clr Drug Dosing Est GFR ( Amer) Est GFR (Non-Af Amer) BUN/Creatinine Ratio Glucose POC Glucose 159 H Calcium Magnesium Total Bilirubin AST ALT Alkaline Phosphatase Troponin I Total Protein Albumin Globulin Albumin/Globulin Ratio Lipase TSH Urine Color Urine Appearance Urine pH Ur Specific [place] Urine Protein Urine Glucose (UA) Urine Ketones Urine Blood Urine Nitrite Urine Bilirubin Urine Urobilinogen Ur Leukocyte Esterase Urine Opiates Screen Ur Methadone, Qual Urine Barbiturates Ur Phencyclidine (PCP) U Amphetamin/Meth Scrn MDMA (Ecstasy) Screen U Benzodiazepines Scrn Ur Cocaine Metabolite U Marijuana (THC) Screen Ethyl Alcohol mg/dL Hepatitis C Ab Screen Blood Type Antibody Screen ECG Additional Comments: EKGs reviewed, initial EKG with very minimal ST elevation in V2, V3 similar to prior EKGs
[2018-12-17] MEDS ORDERED: ALBUT/IPRATROP 3MG/0.5MG NEB 3 ML VIAL NEB PRN (10:55)
[2018-12-17] MEDS: ALBUT/IPRATROP 3MG/0.5MG NEB 3 ML VIAL NEB SCH ×3 (11:40→19:16)
--- NOTE | 2018-12-17 15:12 | Hospitalist Progress Note ---
Date of Service December 17, 2018 Assessment & Plan (1) Chest pain: Likely Multifactorial Secondary to hypertensive urgency; alcohol withdrawal, Medication Non compliance; H/O Cocaine use Last Cocaine use is few weeks ago as per patient Chronic Tropnin elevation Not likely ACS as per Cardiology Appreciate Cardiology Input Counseled to quit Smoking/Alcohol use and Cocaine use Continue home medications Hypokalemia Likely due to secondary to emesis, diarrhea No diarrhea today Replace electrolytes as needed Lower GI bleed To R/O C. 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 No bowel obstruction or bowel wall thickening. Normal appendix. Hepatic steatosis. Continue PPI R/O C.diff if diarrhea reoccurs Consider GI eval Monitor DVT Px: SCDs RE GI bleed Code Status Full code Disposition: Expect to discharge home when stable Subjective Patient examined at bedside Complains of intermittent chest pain, back pain and abdominal pain No diarrhea since her hospitalization States having chronic shortness of breath on exertion Admits to being noncompliant with medications no other complaints Counseled to quit smoking, drinking Denies any recent cocaine use Review of Systems Review of Systems: All systems reviewed & are unremarkable except as noted in HPI & below Physical Exam Physical Exam: Physical Exam: Vitals signs as noted above General Appearance:Obese, no apparent distress Head: normocephalic, Atraumatic Eyes: normal inspection, EOMI Neck: supple, Trachea midline Respiratory/Chest: Decreased breath sounds, scattered wheezes Cardiovascular: S1, S2, No murmur Abdomen/GI:Soft, mild Right sided tender, Bowel sounds present Extremities/Musculoskelatal:normal inspection, no edema Neurologic/Psych:AAOX3, grossly no focal neurological deficits Skin: normal color, warm Results & Data Vital Signs (Past 12 Hours) Vital Signs Temp Pulse Pulse Resp BP BP BP 12/17/18 11:42 78 18 12/17/18 11:34 36.7 C 94 H 16 152/91 H 12/17/18 08:30 91 H 12/17/18 06:27 36.9 C 91 H 20 152/81 H 12/17/18 05:38 36.6 C 97 H 22 150/83 H 12/17/18 05:30 97 H 12/17/18 05:10 92 H 20 169/89 H 12/17/18 04:24 99 H 20 159/113 H 12/17/18 04:15 96 H 18 168/82 H Pulse Ox 12/17/18 11:42 94 12/17/18 11:34 94 12/17/18 08:30 12/17/18 06:27 95 12/17/18 05:38 92 12/17/18 05:30 12/17/18 05:10 99 12/17/18 04:24 96 12/17/18 04:15 95 Laboratory Results Short CBC 12/17/18 12/17/18 Range/Units 00:32 05:54 WBC 5.45 (4.8-10.8) K/uL Hgb 13.3 12.4 (12.0-16.0) g/dL Hct 38.8 36.0 L (37-47) % Plt Count 214 (130-400) K/uL BMP 12/17/18 00:32 Sodium 137 Potassium 3.4 L Chloride 101 Carbon Dioxide 25 BUN 5 L Creatinine 0.68 Glucose 155 H Calcium 8.9 Cardiac Enzymes 12/17/18 12/17/18 Range/Units 00:32 02:12 Troponin I 0.266 H* 0.259 H* (0-0.045) ng/ml Liver Function 12/17/18 Range/Units 00:32 Total Bilirubin 0.3 (0.2-1) mg/dl AST 55 H (15-37) U/L ALT 70 (12-78) U/L Alkaline Phosphatase 127 H (45-117) U/L Albumin 3.3 L (3.4-5.0) gm/dl Urine 12/17/18 Range/Units 01:50 Urine Color Yellow Urine Appearance Clear (Clear) Urine pH 6.5 (4.5-7.5) Ur Specific [place] 1.011 (1.000-1.030) Urine Protein Negative (Negative) Urine Glucose (UA) Negative (Negative)
[2018-12-17] MEDS ORDERED: POLYETHYLENE (MIRALAX) 17 GM PACK PO PRN (18:14)
[2018-12-17] MEDS ORDERED: LORazepam 0.5 MG/1 ML VIAL IV PRN (22:58)
[2018-12-18] MEDS: HYDROmorphone INJ 0.5 MG/0.5 ML SYR IV PRN (00:20)
[2018-12-18] MEDS: LORazepam 1 MG/2 ML VIAL IV PRN ×2 (04:31→08:35)
[2018-12-18] MEDS ORDERED: HYDROCODONE/ACETAMOPHEN 5/325MG TAB PO PRN (05:31)
--- NOTE | 2018-12-18 05:33 | Hospitalist Progress Note ---
Date of Service December 18, 2018 Subjective Overnight events : Patient requesting to see psychiatry for visual hallucinations. Incessant requests for IV narcotic medication. AP Visual hallucinations ? Drug-seeking behavior (recurrent admissions for uncontrolled blood pressure secondary to medication noncompliance) Psychiatry consultation as per patient request for hallucinations DC Dilaudid Use Vicodin as needed pain not relieved by Tylenol Will relay to AM provider. Results & Data Vital Signs (Past 12 Hours) Vital Signs Temp Pulse Pulse Resp BP Pulse Ox 12/18/18 04:00 36.8 C 80 20 138/98 95 12/18/18 00:45 80 21 149/90 H 12/18/18 00:00 71 12/17/18 23:00 36.5 C 78 20 156/100 H 95 12/17/18 19:37 37.1 C 78 20 139/79 100 12/17/18 19:17 79 20 95
[2018-12-18] MEDS ORDERED: HYDROCODONE/ACETAMOPHEN 5/325MG TAB PO ONE (05:52)
[2018-12-18 06:16] LABS: Basophils # (auto) 0.01 K/uL (0-0.2); Basophils % (auto) 0.3 %; Eosinophils % (auto) 5.2 %; Hematocrit (blood only) 36.1 % (37-47); Hemoglobin 12.4 g/dL (12.0-16.0); Immature Granulocytes # (auto) 0.01 K/uL (0.00-0.02); Immature Granulocytes % (auto) 0.3 %; Lymphocytes # (auto) 1.43 K/uL (1.2-3.4); Lymphocytes % (auto) 36.9 %; Mean Corpuscular Hgb Conc 34.3 g/dL (32-36); Mean Corpuscular Volume 100.3 fL (80-100); Monocytes # (auto) 0.32 K/uL (0.11-0.59); Monocytes % (auto) 8.2 %; Neutrophils # (auto) 1.91 K/uL (1.4-6.5); Neutrophils % (auto) 49.1 %; Platelet Count 163 K/uL (130-400); RDW Coefficient of Variation 12.9 % (11.5-14.5); RDW Standard Deviation 47.8 fL (36.4-46.3); White Blood Count 3.88 K/uL (4.8-10.8)
[2018-12-18 06:50] LABS: BUN Creatinine Ratio 7.4 (10-20); Calcium 8.8 mg/dl (8.5-10.1); Creatinine Clr Calc Pharmacy 152.4 ml/min; Magnesium 2.2 mg/dl (1.8-2.4); Potassium 3.6 mmol/L (3.5-5.1)
[2018-12-18] MEDS: ALBUT/IPRATROP 3MG/0.5MG NEB 3 ML VIAL NEB SCH ×2 (07:11→11:15)
[2018-12-18] MEDS: INSULIN ASPART 100 UNITS/ML 3 ML PEN SC SCH ×2 (08:20→12:13)
[2018-12-18] MEDS: HydrALAZINE TAB 50 MG TAB PO SCH (08:21)
[2018-12-18] MEDS: GABAPENTIN 300 MG CAP PO SCH (08:21)
[2018-12-18] MEDS: VALSARTAN 80 MG TAB PO SCH (08:21)
[2018-12-18] MEDS: FOLIC ACID 1 MG TAB PO SCH (08:21)
[2018-12-18] MEDS: CETIRIZINE HCL 10 MG TABLET PO SCH (08:22)
[2018-12-18] MEDS: VALACYCLOVIR HCL 500 MG TABLET PO SCH (08:22)
[2018-12-18] MEDS: dilTIAZem HCL 300 MG CAPCR PO SCH (08:22)
[2018-12-18] MEDS: NICOTINE 14 MG/24 HR PATCH TD SCH (08:22)
[2018-12-18] MEDS: [UNRECOGNIZED DRUG - OTHER] SCH (08:23)
[2018-12-18] MEDS: INSULIN GLARGINE SOLOSTAR 100 UNITS/ML 3 ML PEN SQ SCH (08:23)
[2018-12-18] MEDS ORDERED: FOLIC ACID 1 MG TAB PO SCH (09:00)
[2018-12-18] MEDS ORDERED: MULTIVITAMIN TAB PO SCH (09:00)
[2018-12-18] MEDS ORDERED: THIAMINE HCL 100 MG TAB PO SCH (09:00)
[2018-12-18] MEDS: PANTOprazole 40 MG TAB PO SCH (10:17)
--- NOTE | 2018-12-18 11:57 | Hospitalist Progress Note ---
Date of Service December 18, 2018 Assessment & Plan (1) Chest pain: Likely Multifactorial Secondary to hypertensive urgency; alcohol withdrawal, Medication Non compliance; H/O Cocaine use Last Cocaine use is few weeks ago as per patient Chronic Troponin elevation ECHO:No significant change from prior Not likely ACS as per Cardiology Appreciate Cardiology Input Counseled to quit Smoking/Alcohol use and Cocaine use Will increased hydralazine to 50mg TID for better BP control Hypokalemia Likely due to secondary to emesis, diarrhea No diarrhea since hospitalization Replace electrolytes as needed Lower GI bleed To R/O C. 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 No bowel obstruction or bowel wall thickening. Normal appendix. Hepatic steatosis. Continue PPI R/O C.diff if diarrhea reoccurs Consider GI eval Monitor DVT Px: SCDs RE GI bleed Code Status Full code Disposition: Expect to discharge home when stable Subjective Patient examined at bedside Denies any chest pain, abd pain today No bleeding issues noted during hospitalization States having chronic shortness of breath on exertion Reports having hallucinations overnight --which are chronic per patient Discussed with Psychiatry Explained the importance of being complaint with Psych meds Review of Systems Review of Systems: All systems reviewed & are unremarkable except as noted in HPI & below Physical Exam Physical Exam: Physical Exam: Vitals signs as noted above General Appearance:Obese, no apparent distress Head: normocephalic, Atraumatic Eyes: normal inspection, EOMI Neck: supple, Trachea midline Respiratory/Chest: Decreased breath sounds, minimal wheezes Cardiovascular: S1, S2, No murmur Abdomen/GI:Soft, mild Right sided tender, Bowel sounds present Extremities/Musculoskelatal:normal inspection, no edema Neurologic/Psych:AAOX3, grossly no focal neurological deficits Skin: normal color, warm Results & Data Vital Signs (Past 12 Hours) Vital Signs Temp Pulse Pulse Resp BP Pulse Ox 06/21/19 11:15 79 18 97 12/18/18 08:00 82 12/18/18 07:39 36.8 C 91 H 22 166/117 H 90 12/18/18 07:12 71 12 98 12/18/18 04:00 36.8 C 80 20 138/98 95 12/18/18 00:45 80 21 149/90 H 12/18/18 00:00 71 Laboratory Results Short CBC 12/18/18 Range/Units 05:55 WBC 3.88 L (4.8-10.8) K/uL Hgb 12.4 (12.0-16.0) g/dL Hct 36.1 L (37-47) % Plt Count 163 (130-400) K/uL BMP 12/18/18 05:55 Sodium 139 Potassium 3.6 Chloride 106 Carbon Dioxide 26 BUN 4 L Creatinine 0.54 L Glucose 152 H Calcium 8.8
--- NOTE | 2018-12-18 12:25 | Discharge Summary ---
Date of Service December 18, 2018 Admission HPI Per Admitting Provider History obtained from patient and records. Medical history significant for chronic respiratory failure secondary to COPD on home O2, PAF on Eliquis, history of TIAs, hypertension, DM 2 insulin requiring, mood disorder/paranoid schizophrenia, history ongoing cocaine/alcohol/tobacco abuse, hx pancreatitis. Recent confinement last month for pancreatitis. Patient few days history of achy chest, central abdominal pain going to the back with shortness of breath, no unusual cough symptoms. Patient also complaining of nausea, bilious emesis, bloody stools. No fever, no chills. Achy headache symptoms. Intractable symptoms at the ER. Admission Exam Per Admitting Provider GENERAL: uncomfortable, obese, no respiratory distress, alcoholic fetor SKIN: Normal color, warm HEENT: [place] palpebral conjunctivae, no ptosis, dry buccal mucosa NECK : Supple, short, no tenderness CHEST : Expiratory wheezes, no chest wall tenderness BACK : Low back tenderness, negative straight leg raise HEART : RRR, no obvious murmurs ABDOMEN: distention, central abdominal tenderness EXTREMITIES : minimal LE swelling, no LE tenderness, no other conspicuous deformities noted NEUROLOGIC : Coherent, no facial asymmetry, gait and stance not assessed Principal Diagnosis Discharge Information Discharge Diagnosis Chest Pain Possible GI bleeding Discharge Goals Decrease discomfort,Improve function,Improve disease control Discharge Activity Limitations Resume your previous activity Discharge Data Allergies Allergy/AdvReac Type Severity Reaction Status Date / Time haloperidol Allergy Severe TONGUE Verified 12/01/18 20:38 SWELLING insulin lispro Allergy Intermediate HIVES Verified 12/01/18 20:38 phenol Allergy Intermediate HIVES Verified 12/01/18 20:38 citalopram Allergy Mild ITCHING Verified 12/01/18 20:38 sulfamethoxazole Allergy Mild RASH Verified 12/01/18 20:38 trimethoprim Allergy Mild RASH Verified 12/01/18 20:38 Bactrim Allergy Unknown RASH Verified 12/01/17 16:09 Penicillins Allergy Unknown UNKNOWN Verified 12/01/18 20:38 topiramate AdvReac Severe SEIZURE Verified 12/01/18 20:38 LIKE ACTIVITY morphine AdvReac Mild HEADACHE Verified 12/01/18 20:38 oxycodone AdvReac Mild ITCH Verified 10/10/18 13:23 Margarine Allergy Severe RASH Uncoded 10/10/18 13:23 Consultations 12/17/18 03:33 ED Decision to Admit Stat 12/17/18 05:26 Consult Case Management - Discharge Planning Routine 12/17/18 08:45 Consult Cardiology Routine Procedures Performed CT ABD: 1. No acute intra-abdominal or intrapelvic abnormality identified. 2. No bowel obstruction or bowel wall thickening. Normal appendix. 3. Hepatic steatosis. 4. Additional findings as above. CT Head: No acute intracranial findings CXR: No active disease in the chest. ECHO: Left ventricle systolic function is normal No significant valvular disease Compared to echocardiogram from 07/06/2018: There is no significant change Ordered Studies 12/17/18 00:25 CT head/brain wo con Urgent 12/17/18 04:25 CT abd pelvis IV con only Urgent Hospital Course (1) Chest pain: Likely Multifactorial Secondary to hypertensive urgency; alcohol withdrawal, Medication Non compliance; H/O Cocaine use Last Cocaine use is few weeks ago as per patient Chronic Troponin elevation ECHO:No significant change from prior Not likely ACS as per Cardiology Appreciate Cardiology Input Counseled to quit Smoking/Alcohol use and Cocaine use Will increased hydralazine to 50mg TID for better BP control Patient reluctant to stay to control the blood pressure. Demands to be discharged. Leaves hospital without instructions for discharge PCP informed of the patient's condition and requirement for close follow up. Hypokalemia Likely due to secondary to emesis, diarrhea No diarrhea since hospitalization Replace electrolytes as needed Lower GI bleed To R/O C. difficile Resume Eliquis Continue PPI Hb stable Chronic respiratory failure secondary to COPD On 2 liters of supplemental Oxygen at bedtime Non compliance with medications Continue Nebs, home inhalers P.Afib On Eliquis Currently in sinus Continue current meds H/O TIA DM II Last A1C: 7.28 September 2018 mood disorder/paranoid schizophrenia H/O ongoing cocaine/alcohol/tobacco abuse [employer] Helper to quit Continue thiamine, folic acid Monitor for withdrawal symptoms Nicotine patch Right sided Abdominal Pain Hepatic Steatosis CT ABD: No acute intra-abdominal or intrapelvic abnormality identified. No bowel obstruction or bowel wall thickening. Normal appendix. Hepatic steatosis. Continue PPI R/O C.diff if diarrhea reoccurs Consider GI eval Monitor DVT Px: SCDs RE GI bleed Code Status Full code Disposition: Expect to discharge home when stable Total Time Total Time Spent Total Time Spent (In Minutes): 32 minutes Total Time Includes: Examination of the Patient, Discharge Planning, Medication Reconciliation, Communication With Other Providers and Other Discharge Plan Discharge Items Patient Disposition: Home - Self-Care Reason For Visit: CHEST PAIN,LGIB Discharge Diagnosis: Chest Pain Possible GI bleeding Condition: Fair Discharge Goals: Decrease discomfort, Improve disease control and Improve function Activity: Resume your previous activity Exercise/Sports: Gradually increase as tolerated Non-emergency contact: Primary Care Provider and Reading Professor Call non-emergency contact if: you have any medication questions, your symptoms worsen, your pain is not controlled, your pain is worsening, your pain is unusual for you, your pain is concerning for you and you have a fever Follow-up/Referrals: Yovani Arellano MD [Primary Care Provider] - Diet: Carb Consistent or DM2 and Heart Healthy Addtl Provider Instructions: Follow-up with your primary care physician Dr. Arellano in 1 week Follow-up with your general maintenance technician if you notice any recurrence of bleeding in stool Follow-up with your psychiatrist as advised Quit smoking, drinking as advised Take your medications regularly as advised Hold blood thinner Eliquis if you notice any recurrence of bleeding and discussed with the physician for further recommendations. Prescriptions: Continued albuterol sulfate 2.5 mg /3 mL (0.083 %) Solution For Nebulization 2.5 mg INHALATION Q4 PRN (Reason: Shortness Of Breath Or Wheezing) RF: 0 valacyclovir 500 mg Tablet 500 mg PO QAM RF: 0 trazodone 100 mg Tablet 200 mg PO HS PRN (Reason: Sleep) RF: 0 valsartan 320 mg Tablet 320 mg PO QAM RF: 0 Basaglar KwikPen U-100 Insulin 100 unit/mL (3 mL) Insulin Pen 60 unit SUBCUT HS RF: 0 omeprazole 20 mg Tablet,Delayed Release (Dr/Ec) 20 mg PO BID RF: 0 cyclobenzaprine 10 mg Tablet 10 mg PO BID PRN (Reason: MUSCLE SPASMS) RF: 0 ranitidine HCl 300 mg Tablet 300 mg PO HS RF: 0 lactulose [Constulose] 10 gram/15 mL solution 30 ml PO DAILY PRN (Reason: Constipation) RF: 0 Eliquis 5 mg tablet 5 mg PO QAM RF: 0 thiamine HCl (vitamin B1) [Vitamin B-1] 100 mg Tablet 100 mg PO QAM Qty: 30 RF: 0 potassium chloride 10 mEq capsule, extended release 10 meq PO DAILY RF: 0 cetirizine [Zyrtec] 10 mg tablet 10 mg PO DAILY RF: 0 diltiazem HCl [Cartia XT] 300 mg capsule,extended release 24hr 300 mg PO DAILY RF: 0 folic acid 1 mg tablet 1 mg PO DAILY RF: 0 ergocalciferol (vitamin D2) [Vitamin D2] 50,000 unit Capsule 50,000 unit PO WK RF: 0 hydroxyzine HCl 10 mg tablet 10 mg PO Q8 PRN (Reason: Itching) RF: 0 insulin lispro [Admelog SoloStar U-100 Insulin] 100 unit/mL insulin pen subcut TIDM RF: 0 diclofenac sodium [Voltaren] 1 % Gel 4 g TOPICAL QID PRN (Reason: Pain) RF: 0 fluticasone propion-salmeterol [AirDuo RespiClick] 232-14 mcg/actuation aerosol powdr breath activated 1 puff inhalation DAILY RF: 0 gabapentin 300 mg Tablet Extended Release 24 Hr 300 mg PO TID RF: 0 metformin 500 mg Tablet Extended Release 24hr 500 mg PO BID RF: 0 hydrochlorothiazide 12.5 mg Tablet 12.5 mg PO DAILY RF: 0 meclizine 12.5 mg Tablet 12.5 mg PO DIRECTED PRN (Reason: Dizziness) RF: 0 perphenazine 2 mg tablet 16 mg PO BID RF: 0 Changed hydralazine 50 mg Tablet 50 mg PO TID 30 Days Qty: 90 RF: 0 Stand-Alone Forms: [facility] Discharge Orders: Discharge Order (Routine); Ordered 12/18/18 Ordered By: Viktor Duratn Admission Data Admit Date/Time: 12/17/18 04:30 Attending Provider: Viktor Durant Admit Provider: Derrick Smith Primary Care Provider: Yovani Arellano Other Providers: Derrick Smith ; Emmett Hein Service: Telemetry Medical Other Interventions: Discharge Summary Assessment (RN) Last Done: 12/18/18 13:11 Pending Studies at Discharge: No DC Date/Time DO NOT enter until pt leaves facility: 12/18/18 13:12
== END 2018-12-18 13:12 | disposition home or self-care (01) ==
LOC: ED → 2N

== ENCOUNTER 2018-12-21 01:13 | Inpatient (IN) ==
[2018-12-21] MEDS ORDERED: SODIUM CHLORIDE 0.9% 500 ML IV SCH (01:30)
[2018-12-21 01:47] LABS: Basophils # (auto) 0.04 K/uL (0-0.2); Basophils % (auto) 0.6 %; Eosinophils # (auto) 0.05 K/uL (0-0.5); Eosinophils % (auto) 0.8 %; Hematocrit (blood only) 39.7 % (37-47); Hemoglobin 13.9 g/dL (12.0-16.0); Immature Granulocytes # (auto) 0.01 K/uL (0.00-0.02); Immature Granulocytes % (auto) 0.2 %; Lymphocytes # (auto) 2.94 K/uL (1.2-3.4); Mean Platelet Volume 10.1 fL (7.4-10.4); Monocytes # (auto) 0.39 K/uL (0.11-0.59); Monocytes % (auto) 6.2 %; Neutrophils # (auto) 2.82 K/uL (1.4-6.5); Neutrophils % (auto) 45.2 %; Platelet Count 221 K/uL (130-400); RDW Coefficient of Variation 13.2 % (11.5-14.5); RDW Standard Deviation 48.9 fL (36.4-46.3); Red Blood Count 3.93 M/uL (4.2-5.4); White Blood Count 6.25 K/uL (4.8-10.8)
[2018-12-21 01:55] LABS: Albumin Level 3.4 gm/dl (3.4-5.0); BUN Creatinine Ratio 9.5 (10-20); Calcium 8.8 mg/dl (8.5-10.1); Est GFR (African American) 108.2; Est GFR (Non-African American) 93.4; Potassium 3.5 mmol/L (3.5-5.1)
[2018-12-21 01:58] LABS: Albumin Globulin Ratio 0.7 (0.9-2); Bilirubin,Total 0.2 mg/dl (0.2-1); Globulin 4.6 gm/dl (2.5-4.0)
[2018-12-21] MEDS ORDERED: ACETAMINOPHEN SUSP 160 MG/5 ML UDC PO STA ×2 (02:11→03:38)
--- NOTE | 2018-12-21 03:49 | Emergency Department Note ---
History of Present Illness General Chief complaint: Mental Health Evaluation History of Present Illness Maximum Pain Intensity: 6 This 53-year-old presents to the ER complaining of back pain, chest pain, foot pain Location: Back chest and right foot Quality: Aching Severity: Moderate Duration: Chronic Timing: Symptoms have been ongoing Context: Symptoms persisted and patient came in Modifying factors: better with alcohol; worse with activity Patient was just discharged from this facility for chest pain. Patient has been seen in this facility numerous times for chest pain with negative cardiac work- ups. Patient states she chronically has chest pain. She continues to drink alcohol use cocaine. Patient states she is been drinking all day. Patient states she injured her foot and has back pain and this is what her main complaints are today. Patient is demanding that I gave her Ativan. She is asking for something to drink. Home Medications Home Medications Medication Instructions Recorded Confirmed Type Ameliaaglchelsea GilliamikPen U-100 Insulin 60 unit SUBCUT HS 07/05/18 12/21/18 History albuterol sulfate 2.5 mg INHALATION Q4 PRN 07/05/18 12/21/18 History omeprazole 20 mg PO BID 07/05/18 12/21/18 History trazodone 200 mg PO HS PRN 07/05/18 12/21/18 History valacyclovir 500 mg PO QAM 07/05/18 12/21/18 History Eliquis 5 mg PO QAM 09/29/18 12/21/18 History cyclobenzaprine 10 mg PO BID PRN 09/29/18 12/21/18 History lactulose [Constulose] 30 ml PO DAILY PRN 09/29/18 12/21/18 History ranitidine HCl 300 mg PO HS 09/29/18 12/21/18 History thiamine HCl (vitamin B1) [Vitamin 100 mg PO QAM #30 tab 10/13/18 12/21/18 Rx B-1] gabapentin 300 mg PO TID 11/08/18 12/21/18 History hydrochlorothiazide 12.5 mg PO DAILY 11/08/18 12/21/18 History meclizine 12.5 mg PO DIRECTED PRN 11/08/18 12/21/18 History cetirizine [Zyrtec] 10 mg PO DAILY 12/01/18 12/21/18 History diclofenac sodium [Voltaren] 4 g TOPICAL QID PRN 12/01/18 12/21/18 History diltiazem HCl [Cartia XT] 300 mg PO DAILY 12/01/18 12/21/18 History ergocalciferol (vitamin D2) 50,000 unit PO WK 12/01/18 12/21/18 History [Vitamin D2] fluticasone propion-salmeterol 1 puff INHALATION DAILY 12/01/18 12/21/18 History [AirDuo RespiClick] folic acid 1 mg PO DAILY 12/01/18 12/21/18 History hydroxyzine HCl 10 mg PO Q8 PRN 12/01/18 12/21/18 History insulin lispro [Admelog SoloStar 0 unit SUBCUT TIDM 12/01/18 12/21/18 History U-100 Insulin] potassium chloride 10 meq PO DAILY 12/01/18 12/21/18 History hydralazine 50 mg PO TID 30 Days #90 tab 12/18/18 12/21/18 Rx diphenhydramine HCl 25 mg PO Q6 PRN 12/21/18 12/21/18 History Allergies Allergy/AdvReac Type Severity Reaction Status Date / Time haloperidol Allergy Severe TONGUE Verified 12/21/18 01:44 SWELLING insulin lispro Allergy Intermediate HIVES Verified 12/21/18 01:44 phenol Allergy Intermediate HIVES Verified 12/21/18 01:44 citalopram Allergy Mild ITCHING Verified 12/21/18 01:44 sulfamethoxazole Allergy Mild RASH Verified 12/21/18 01:44 trimethoprim Allergy Mild RASH Verified 12/21/18 01:44 Bactrim Allergy Unknown RASH Verified 12/01/17 16:09 Penicillins Allergy Unknown UNKNOWN Verified 12/21/18 01:44 topiramate AdvReac Severe SEIZURE Verified 12/21/18 01:44 LIKE ACTIVITY morphine AdvReac Mild HEADACHE Verified 12/21/18 01:44 oxycodone AdvReac Mild ITCH Verified 12/21/18 01:44 Margarine Allergy Severe RASH Uncoded 12/21/18 01:44 Past Med/Surg History Medical History DM type 2 (diabetes mellitus, type 2) Alcohol abuse Suicidal ideations Bronchitis (Acute) Prolonged QT interval Non-sustained ventricular tachycardia (Acute) Tobacco use disorder (Chronic) History of opioid abuse (Chronic) Cocaine abuse (Chronic) Hx of suicide attempt (Resolved) Diabetes (Chronic) COPD (chronic obstructive pulmonary disease) (Chronic) Fatty liver (Chronic) Elevated troponin (Chronic) Obesity (Chronic) HTN (hypertension) (Chronic) Sleep apnea (Chronic) Neuropathy (Chronic) Sciatic nerve disease (Chronic) Atrial fibrillation (Chronic) Epistaxis, recurrent (Chronic) Chronic generalized pain disorder (Chronic) Schizoaffective disorder, bipolar type (Chronic) COPD with exacerbation (Acute) Alcohol induced acute pancreatitis (Acute) ETOH abuse Rectal bleeding (Acute) EtOH dependence (Inactive) Surgical History H/O ovarian cystectomy (Resolved) H/O foot surgery (Resolved) Family History Other Heart disease Social History Preferred Language: Zimbabwean Communication Ability: Effective Visual Impairment: No Limitations Technical Planner Required: No Beliefs That Will Affect Care: None marital status: Single Current Living Situation: Family Current Living Situation Comment: lives with brothers? current occupational status: unemployed and disabled Feels Safe at Home: Declines to Answer Smoking Status: Current every day smoker Tobacco Type: cigarettes Cigarettes Per Day: 15 Second Hand Exposure: Yes Hx Alcohol Use: Yes Alcohol type: hard liquor Hx Substance Use: No Review of Systems All systems reviewed & are unremarkable except as noted in HPI & below Physical Exam Vital Signs Vital Signs - 24 hr 12/21/18 01:19 12/21/18 03:02 12/21/18 05:20 Sepsis Recent Fever Within 48 Hours No Sepsis New/Unexplained Change in Mental Status No Sepsis Action Taken by Nursing No Action Required Pulse Rate 114 H Pulse Rate [Finger] 92 H 90 Pulse Rhythm [Finger] Regular Pulse Strength [Finger] Normal Respiratory Rate 18 20 18 Respiratory Effort / Characteristics Non-Labored Non-Labored Spontaneous Respiratory Depth Normal Normal Normal Respiratory Pattern Regular Blood Pressure 139/94 Blood Pressure [Left Arm] 140/92 136/94 Blood Pressure Mean 109 Blood Pressure Mean [Left Arm] 108 108 Blood Pressure Position [Left Arm] Lying Pulse Oximetry 95 99 97 Oxygen Delivery Method Room Air Room Air Room Air 12/21/18 07:39 12/21/18 07:58 12/21/18 09:52 Sepsis Recent Fever Within 48 Hours Sepsis New/Unexplained Change in Mental Status Sepsis Action Taken by Nursing Pulse Rate Pulse Rate [Finger] 96 H 95 H 82 Pulse Rhythm [Finger] Pulse Strength [Finger] Respiratory Rate 26 H 18 20 Respiratory Effort / Characteristics Non-Labored Spontaneous Respiratory Depth Normal Normal Respiratory Pattern Blood Pressure Blood Pressure [Left Arm] 171/74 H 162/83 H Blood Pressure Mean Blood Pressure Mean [Left Arm] 106 109 Blood Pressure Position [Left Arm] Pulse Oximetry 96 95 94 Oxygen Delivery Method Room Air Room Air Room Air 12/21/18 12:47 Sepsis Recent Fever Within 48 Hours Sepsis New/Unexplained Change in Mental Status Sepsis Action Taken by Nursing Pulse Rate Pulse Rate [Finger] 95 H Pulse Rhythm [Finger] Pulse Strength [Finger] Respiratory Rate 20 Respiratory Effort / Characteristics Respiratory Depth Respiratory Pattern Blood Pressure Blood Pressure [Left Arm] 154/87 H Blood Pressure Mean Blood Pressure Mean [Left Arm] 109 Blood Pressure Position [Left Arm] Pulse Oximetry Oxygen Delivery Method VITALS: Vitals are noted on the nurse's note and reviewed by myself. Vital sig ns stable. GENERAL: Female with EtOH odor yelling and screaming at me call me nasty, in no acute distress, nondiaphoretic, well-developed well-nourished. SKIN: The skin was without rashes, erythema, edema, or bruising. There is no tenting of the skin. Capillary reflex less than 2 seconds. HEAD: Normocephalic atraumatic. EARS: External auditory canals clear EYES: Pupils equal round and reactive to light and accommodation. Conjunctivae without injection, sclerae without icterus. Extraocular movements intact. NOSE: Patent, turbinates without inflammation or discharge. MOUTH: Mucous membranes moist. Pharynx without erythema or exudate. Uvula midline. Airway patent. Tongue does not deviate. NECK: Supple without nuchal rigidity. No lymphadenopathy. No thyromegaly. Cervical spine is nontender. No JVD. HEART: Regular rate and rhythm; chest tender to palpation LUNGS: Clear to auscultation bilaterally without wheezes, rales or rhonchi. No retractions or accessory muscle use. ABDOMEN: Positive bowel sounds x 4. Normal tympanic percussion. Soft, nontender, without masses or organomegaly. Canales sign negative. No guarding or rebound tenderness. No CVA tenderness MUSCULOSKELETAL: No muscle atrophy, erythema, or edema noted. No thoracic or lumbar tenderness on exam. Patient moving all extremities. Right foot diffusely tender to palpation without localized pain. No deformity. NEURO: Patient was alert and oriented to person place and time. Normal sensation to light and sharp touch. No focal neurological deficits. Course Administered Medications Discontinued Medications Acetaminophen (Children's Acetaminophen) 650 mg PO NOW STA Stop: 12/21/18 02:12 Last Admin: 12/21/18 02:26 Dose: Not Given Documented by: [id number] Acetaminophen (Children's Acetaminophen) 650 mg PO NOW STA Stop: 12/21/18 03:39 Last Admin: 12/21/18 03:51 Dose: 650 mg Documented by: [id number] Albuterol (Duoneb) 3 ml NEB NOW STA Stop: 12/21/18 07:45 Last Admin: 12/21/18 07:58 Dose: 3 ml Documented by: [id number] Apixaban (Eliquis) 5 mg PO NOW STA Stop: 12/21/18 08:37 Last Admin: 12/21/18 09:22 Dose: 5 mg Documented by: [id number] Cetirizine HCl (Zyrtec) 10 mg PO NOW ONE Stop: 12/21/18 08:37 Last Admin: 12/21/18 09:24 Dose: 10 mg Documented by: [id number] Diltiazem HCl (Cardizem Cd) 300 mg PO QAM [facility] Stop: 01/20/19 08:59 Last Admin: 12/21/18 09:24 Dose: 300 mg Documented by: [id number] Gabapentin (Neurontin) 300 mg PO NOW STA Stop: 12/21/18 08:37 Last Admin: 12/21/18 09:23 Dose: 300 mg Documented by: [id number] Hydrochlorothiazide (Hctz) 12.5 mg PO NOW STA Stop: 12/21/18 08:37 Last Admin: 12/21/18 09:22 Dose: 12.5 mg Documented by: [id number] Sodium Chloride (Nss) 500 mls @ 999 mls/hr IV .Q31M CARLOS Stop: 12/21/18 02:00 Last Infusion: 12/21/18 02:22 Dose: 0 mls/hr Documented by: [id number] Admin: 12/21/18 01:32 Dose: 999 mls/hr Documented by: [id number] Non-Formulary Medication (Valcyclovir) 500 mg PO NOW STA Stop: 12/21/18 08:37 Last Admin: 12/21/18 19:06 Dose: Not Given Documented by: [id number] Non-Formulary Medication (Omeprazole) 20 mg PO NOW STA Stop: 12/21/18 08:37 Last Admin: 12/21/18 19:06 Dose: Not Given Documented by: [id number] Ondansetron HCl (Zofran Odt) 4 mg PO NOW STA Stop: 12/21/18 04:00 Last Admin: 12/21/18 04:19 Dose: 4 mg Documented by: [id number] Thiamine HCl (Vitamin B-1) 100 mg PO NOW STA Stop: 12/21/18 08:37 Last Admin: 12/21/18 09:23 Dose: 100 mg Documented by: [id number] Medical Decision Making Medical Records Attestation: I reviewed the patient's medical records. Home Medications Current Medication List: was personally reviewed by me Laboratory Data Attestation: I reviewed the patient's lab results. Result diagrams: 12/21/18 01:10 12/21/18 01:10 Lab Results 12/21/18 12/21/18 12/21/18 Range/Units 01:10 01:10 01:36 WBC 6.25 (4.8-10.8) K/uL RBC 3.93 L (4.2-5.4) M/uL Hgb 13.9 (12.0-16.0) g/dL Hct 39.7 (37-47) % MCV 101.0 H (80-100) fL MCH 35.4 H (25-34) pg MCHC 35.0 (32-36) g/dL RDW Std Deviation 48.9 H (36.4-46.3) fL RDW Coeff of Ally 13.2 (11.5-14.5) % Plt Count 221 (130-400) K/uL MPV 10.1 (7.4-10.4) fL Immature Gran % (Auto) 0.2 % Neut % (Auto) 45.2 % Lymph % (Auto) 47.0 % Blair % (Auto) 6.2 % Eos % (Auto) 0.8 % Baso % (Auto) 0.6 % Immature Gran # (Auto) 0.01 (0.00-0.02) K/uL Neut # (Auto) 2.82 (1.4-6.5) K/uL Lymph # (Auto) 2.94 (1.2-3.4) K/uL Blair # (Auto) 0.39 (0.11-0.59) K/uL Eos # (Auto) 0.05 (0-0.5) K/uL Baso # (Auto) 0.04 (0-0.2) K/uL Sodium 138 (136-145) mmol/L Potassium 3.5 (3.5-5.1) mmol/L Chloride 102 (98-107) mmol/L Carbon Dioxide 27 (21-32) mmol/L Anion Gap 9.0 (3-11) BUN 7 (7-18) mg/dl Creatinine 0.73 (0.6-1.2) mg/dl Est Cr Clr Drug Dosing 111.0 ml/min Est GFR ( Amer) 108.2 Est GFR (Non-Af Amer) 93.4 BUN/Creatinine Ratio 9.5 L (10-20) Glucose 171 H (70-99) mg/dl POC Glucose (70-99) Calcium 8.8 (8.5-10.1) mg/dl Total Bilirubin 0.2 (0.2-1) mg/dl AST 62 H (15-37) U/L ALT 73 (12-78) U/L Alkaline Phosphatase 139 H (45-117) U/L Total Creatine Kinase 131 (26-192) U/L Total Protein 8.0 (6.4-8.2) gm/dl Albumin 3.4 (3.4-5.0) gm/dl Globulin 4.6 H (2.5-4.0) gm/dl Albumin/Globulin Ratio 0.7 L (0.9-2) Lipase 572 H (73-393) U/L Urine Color Urine Appearance (Clear) Urine pH (4.5-7.5) Ur Specific [place] (1.000-1.030) Urine Protein (Negative) Urine Glucose (UA) (Negative) Urine Ketones (Negative) Urine Blood (Negative) Urine Nitrite (Negative) Urine Bilirubin (Negative) Urine Urobilinogen (Negative) Ur Leukocyte Esterase (Negative) Urine Opiates Screen (Neg) Ur Methadone, Qual (Neg) Urine Barbiturates (Neg) Ur Phencyclidine (PCP) (Neg) U Amphetamin/Meth Scrn (Neg) MDMA (Ecstasy) Screen (Neg) U Benzodiazepines Scrn (Neg) Ur Cocaine Metabolite (Neg) U Marijuana (THC) Screen (Neg) Ethyl Alcohol mg/dL 278.0 H (0-3) mg/dl 12/21/18 12/21/18 12/21/18 Range/Units 07:44 11:49 11:49 WBC (4.8-10.8) K/uL RBC (4.2-5.4) M/uL Hgb (12.0-16.0) g/dL Hct (37-47) % MCV (80-100) fL MCH (25-34) pg MCHC (32-36) g/dL RDW Std Deviation (36.4-46.3) fL RDW Coeff of Ally (11.5-14.5) % Plt Count (130-400) K/uL MPV (7.4-10.4) fL Immature Gran % (Auto) % Neut % (Auto) % Lymph % (Auto) % Blair % (Auto) % Eos % (Auto) % Baso % (Auto) % Immature Gran # (Auto) (0.00-0.02) K/uL Neut # (Auto) (1.4-6.5) K/uL Lymph # (Auto) (1.2-3.4) K/uL Blair # (Auto) (0.11-0.59) K/uL Eos # (Auto) (0-0.5) K/uL Baso # (Auto) (0-0.2) K/uL Sodium (136-145) mmol/L Potassium (3.5-5.1) mmol/L Chloride (98-107) mmol/L Carbon Dioxide (21-32) mmol/L Anion Gap (3-11) BUN (7-18) mg/dl Creatinine (0.6-1.2) mg/dl Est Cr Clr Drug Dosing ml/min Est GFR ( Amer) Est GFR (Non-Af Amer) BUN/Creatinine Ratio (10-20) Glucose (70-99) mg/dl POC Glucose 143 H (70-99) Calcium (8.5-10.1) mg/dl Total Bilirubin (0.2-1) mg/dl AST (15-37) U/L ALT (12-78) U/L Alkaline Phosphatase (45-117) U/L Total Creatine Kinase (26-192) U/L Total Protein (6.4-8.2) gm/dl Albumin (3.4-5.0) gm/dl Globulin (2.5-4.0) gm/dl Albumin/Globulin Ratio (0.9-2) Lipase (73-393) U/L Urine Color Yellow Urine Appearance Clear (Clear) Urine pH 8.0 H (4.5-7.5) Ur Specific [place] 1.013 (1.000-1.030) Urine Protein Negative (Negative) Urine Glucose (UA) 1+ H (Negative) Urine Ketones Negative (Negative) Urine Blood Negative (Negative) Urine Nitrite Negative (Negative) Urine Bilirubin Negative (Negative) Urine Urobilinogen Negative (Negative) Ur Leukocyte Esterase Negative (Negative) Urine Opiates Screen Neg (Neg) Ur Methadone, Qual Neg (Neg) Urine Barbiturates Neg (Neg) Ur Phencyclidine (PCP) Neg (Neg) U Amphetamin/Meth Scrn Neg (Neg) MDMA (Ecstasy) Screen Neg (Neg) U Benzodiazepines Scrn Neg (Neg) Ur Cocaine Metabolite Pos H (Neg) U Marijuana (THC) Screen Neg (Neg) Ethyl Alcohol mg/dL (0-3) mg/dl Imaging Data Attestation: I personally reviewed and interpreted this imaging study as follows: MDM Narrative Prior records/ancillary studies reviewed and summarized above. Nursing notes reviewed. Additional history obtained from EMS. The patient's history was concerning for back pain, foot pain and chronic chest pain who is intoxicated. Differential diagnosis: Etiologies such as attention seeking, polysubstance abuse, metabolic, infection, hypo/hyperglycemia, electrolyte abnormalities, cardiac sources, intracerebral event, toxicologic, neurologic, as well as others were entertained. Physical examination: As above. ER treatment provided: IV Lock Tylenol On reassessment the patient felt better. Diagnostics interpretation by me: ECG: Normal sinus, normal intervals, no acute ST-T wave changes. Impression sinus tachycardia interpreted by myself I think arrhythmia is unlikely. EKG shows normal sinus rhythm with no interval abnormalities such as QT prolongation or WPW. There are no findings to suggest Brugada syndrome. Cardiac monitoring in the emergency department reveals no tachycardic or bradycardic dysrhythmia. Hypertrophic cardiomyopathy was considered but there are no clear historical elements pointing toward this. EKG is not suggestive. The QRS voltage is not extremely large and there are no suggestive Q waves. The labs revealed chronically mildly elevated lipase. Elevated alcohol. Imaging studies: Foot x-ray concerning for fourth metatarsal fracture per my interpretation. Chest x-ray with no acute consolidation, pneumothorax or free air per my inter pretation Patient began to yell and scream demanding that I give her Ativan. I informed her I would not be giving her Ativan or narcotics during this visit. She continued to scream and yell at me saying that I was nasty and that she wanted another provider. She then said to me that she went to kill herself and wants to go back to the back to be evaluated by mental health. I informed the patient that her alcohol was nearly 300 and would be 8 hours before she would be able to be evaluated by mental health. She was agreeable to this. My charge nurse in my attending was made aware of this. Patient was sent back to behavioral health for sobering up and reevaluation. Case signed out to Babs Beck PA-C pending patient sobering up and reevaluation by mental health in stable condition. Exam and history seem consistent with alcoholism who was intoxicated with foot fracture and chronic chest and back pain. Patient while in the ER made statements of wanting to kill herself. She was highly intoxicated and's behavioral health evaluation was pending the patient sobering up and ree valuation in stable condition. Patient was recently evaluated last week by cardiology. No acute findings noted. She chronically has an elevated troponin. She chronically has an elevated lipase. She had no abdominal pain today. She continues to heavily drinks alcohol and uses drugs. She was strongly encouraged to avoid alcohol and drug use. Patient yelled at me and told me to leave the room. By the evaluation outlined above emergent etiologies such as infection, electrolyte abnormalities, cardiac sources, intracerebral event, toxologic, neurologic, abnormalities blood glucose, metabolic, as well as others were deemed relatively unlikely. Case reviewed with my attending The chart was completed utilizing Duolingo Speech voice recognition software. Grammatical errors, random word insertions, pronoun errors, and incomplete sentences are an occassional consequence of this system due to software limitations, ambient noise, and hardware issues. Any formal questions or concerns about the content, text, or information contained within the body of this dictation should be directly addressed to the physician players assistant for clarification. Impression & Plan Alcohol abuse, Fracture of toe of right foot Discharge Plan Visit Data *Final* Discharge Date/Time: 12/21/18 18:40 Chief Complaint: Mental Health Evaluation Other Complaint: Chest Pain ED Provider: Malou Prescott ED Midlevel Provider: Roger Hayes Discharge Problem: Alcohol abuse, Fracture of toe of right foot Patient Disposition: Home - Self-Care Condition: Good Discharge Instructions Interventions: ED Discharge Assessment Last Done: 12/21/18 18:40
[2018-12-21] MEDS ORDERED: ONDANSETRON 4 MG OD TAB PO STA (03:59)
--- NOTE | 2018-12-21 07:24 | XRay Report ---
SINGLE VIEW CHEST CLINICAL HISTORY: Thoracic back pain. FINDINGS: An AP, portable, upright chest radiograph is compared to study dated 12/17/2018. The examina tion is degraded by portable technique and patient rotation. The cardiomediastinal silhouette is unr emarkable. The lungs and pleural spaces are clear. No pneumothorax is seen. The bony thorax is grossl y intact. Degenerative change is seen in the shoulders. IMPRESSION: No active disease in the chest. Electronically signed by: Valerio Copeland M.D. 12/21/2018 7:22 AM
[2018-12-21] MEDS ORDERED: ALBUT/IPRATROP 3MG/0.5MG NEB 3 ML VIAL NEB STA (07:44)
--- NOTE | 2018-12-21 07:45 | Emergency Department Note ---
ED Visit Note This patient's case was signed out to me by Yulisa Reyes PA-C at the end of her shift. At this time they are waiting mental health evaluation at 9 AM. In the interim the patient starting having some wheezing and a DuoNeb was given. the patient. Her morning meds were all prescribed and given to the patient. Makenzie was speaking with [facility] about admitting the patient. At the end of my shift it was still not determined whether the patient was going to be admitted to [facility] and therefore the case was signed out to Roger Hayes PA-C. Please see his note for the remainder of patient care. .
--- NOTE | 2018-12-21 07:46 | XRay Report ---
RIGHT FOOT 3 VIEWS CLINICAL HISTORY: Right foot pain. FINDINGS: 3 views of the right foot are compared to study dated 09/13/2015. The skeletal structures ar e osteopenic. There is a minimally distracted oblique fracture through the distal shaft of the fourth proximal phalanx. No additional fracture is seen. Mild osteoarthritic change is noted at the first m etatarsophalangeal joint. Advanced osteoarthritic change and deformity is seen at the ankle joint, wi th collapse of the talus. This is similar to previous. Degenerative spurring is noted along the dorsa l aspect of the tarsal bones. There is a plantar calcaneal enthesophyte. Soft tissue edema is present around ankle. IMPRESSION: 1. There is a minimally distracted spiral fracture through the distal shaft of the fourth proximal ph alanx. 2. No additional fracture is seen. 3. Osteopenia with advanced degenerative change at the ankle joint as above with overlying soft tissu e edema. Electronically signed by: Valerio Copeland M.D. 12/21/2018 7:45 AM
[2018-12-21] MEDS ORDERED: VALACYCLOVIR 500 MG PO STA (08:36)
[2018-12-21] MEDS ORDERED: hydroCHLOROthiazide 25 MG TAB PO STA (08:36)
[2018-12-21] MEDS ORDERED: GABAPENTIN 300 MG CAP PO STA (08:36)
[2018-12-21] MEDS ORDERED: APIXABAN 5 MG TABLET PO STA (08:36)
[2018-12-21] MEDS ORDERED: CETIRIZINE HCL 10 MG TABLET PO ONE (08:36)
[2018-12-21] MEDS ORDERED: NON-FORMULARY MEDICATION (Omeprazole 20 MG) PO STA (08:36)
[2018-12-21] MEDS ORDERED: THIAMINE HCL 100 MG TAB PO STA (08:36)
[2018-12-21] MEDS ORDERED: dilTIAZem HCL 300 MG CAPCR PO SCH (09:00)
[2018-12-21 11:59] LABS: Appearance Urine Clear (Clear); Bilirubin Urine Negative (Negative); Blood Urine Negative (Negative); Color Urine Yellow; Glucose Urine UA 1+ (Negative); Ketones Urine Negative (Negative); Leukocyte Esterase Urine Negative (Negative); Nitrite Urine Negative (Negative); Protein Urine Negative (Negative); Specific Gravity Urine 1.013 (1.000-1.030); Urobilinogen Urine Negative (Negative)
[2018-12-21 12:29] LABS: Amphetamines+Metham, Urine Neg (Neg); Barbiturates, Urine Neg (Neg); Benzodiazepine, Urine Neg (Neg); Cocaine, Urine Pos (Neg); MDMA (Ecstacy), Urine Neg (Neg); Methadone, Urine Neg (Neg); Opiate, Urine Neg (Neg); Phencyclidine, Urine Neg (Neg)
--- NOTE | 2018-12-21 17:07 | Emergency Department Note ---
ED Visit Note Pt. case signed out to me from Babs Beck PA-C at shift change. This was pending patient being admitted to [facility] here in the hospital. I did evaluate the patient myself and she was doing well. She had no complaints at that time. She looked well. The patient was quite hesitant upon staying however it was noted by staff that had evaluated her earlier that she would benefit from a mental health stay here and it was felt that she was not safe to be discharged given the information gained earlier today. Patient will be admitted under a volunta ry 201 status. Please refer to further documentation regarding her stay. Attending Attestation: I reviewed the history and physical documented by the physician assistants, labs, and case history with LION Hayes and Mop Handle Assembler. At this time medical clearance has been complete and patient wishes for 201 evalulation at [facility] 201 signed. .
[2018-12-21] MEDS ORDERED: SODIUM CHLORIDE 0.65% NA SOLN 45 ML (OCEAN) PRN (17:08)
[2018-12-21] MEDS ORDERED: ALUMINUM/MAGNESIUM SUSP 30 ML UDC PO PRN (17:08)
[2018-12-21] MEDS ORDERED: BISMUTH SUBSALICYLATE PER ML OMNICELL CHARGE PO PRN (17:08)
[2018-12-21] MEDS ORDERED: MAGNESIUM HYDROXIDE SUSP 30 ML UDC PO PRN (17:08)
[2018-12-21] MEDS ORDERED: LORazepam 1 MG TAB PO PRN (17:14)
[2018-12-21] MEDS ORDERED: ALBUTEROL 0.083% NEBU SOLN 3 ML VIAL INH PRN (17:16)
[2018-12-21] MEDS ORDERED: CYCLOBENZAPRINE HCL 10 MG TAB PO PRN (17:16)
[2018-12-21] MEDS ORDERED: TRAZODONE HCL 100 MG TAB PO PRN (17:16)
[2018-12-21] MEDS ORDERED: PHARMACY GLYCEMIC MGMT CONSULT PRN (18:26)
[2018-12-21] MEDS ORDERED: DEXTROSE 50% 50 ML SYRINGE IV PRN (18:30)
[2018-12-21] MEDS ORDERED: GLUCAGON FOR INJ 1 MG VIAL IM PRN (18:30)
[2018-12-21] MEDS ORDERED: CARBOHYDRATES FOR HYPOGLYCEMIA PO PRN (18:30)
[2018-12-21] MEDS ORDERED: GLUCOSE 10 TABS/TUBE PO PRN (18:30)
[2018-12-21] MEDS ORDERED: GLUCOSE 40% GEL 15 GM TUBE PO PRN (18:30)
--- NOTE | 2018-12-21 20:10 | Pharmacy Report ---
Pharmacy Glycemic Short Note 2 - Date of Service December 21, 2018 - Glycemic Short BSG Results (Last 24 hours): 12/21/18 12/21/18 01:10 07:44 Glucose 171 H POC Glucose 143 H Laboratory Tests 10/12/18 05:42 Hemoglobin A1c 7.1 H OUTPATIENT ANTIDIABETIC REGIMEN: * Basaglar (insulin glargine) 60 units sq qHS * Admelog (insulin lispro) TIDm ASSESSMENT: * Pt well known to pharmacy glycemic service. Will use a insulin regimen that was helpful in the past (when NOT on IV/PO steroids) PLAN FOR INPATIENT GLYCEMIC CONTROL: * Hold outpatient oral diabetes medications * Basal insulin * Lantus 50 units SQ qHS (this is an empiric 15% dose reduction compared to home) * Bolus insulin * NovoLog per scale ACHS * Goal Range: Low 120 mg/dL - High 160 mg/dL * Correction Factor: 20 mg/dL/unit * Nutritional / Prandial insulin per carb ratio of 1 unit per 8 grams CHO consumed
[2018-12-21] MEDS ORDERED: INSULIN GLARGINE 100 UNIT/ML VIAL SQ SCH ×2 (21:00→22:00)
[2018-12-21] MEDS ORDERED: PNEUMOCOCCAL POLYSACCHARIDES 25 MCG/0.5 ML VIAL/SYR IM ONE (21:00)
[2018-12-21] MEDS ORDERED: FLUTICASONE/SALMETEROL 250/50 (ADVAIR) 14 PUFF/1 INHALER INH SCH (21:00)
[2018-12-21] MEDS ORDERED: PNEUMOCOCCAL ADMINISTRATION CHARGE ONE (21:00)
[2018-12-21] MEDS: GABAPENTIN 300 MG CAP PO SCH (21:07)
[2018-12-21] MEDS: FLUTICASONE/SALMETEROL 250/50 (ADVAIR) 14 PUFF/1 INHALER INH SCH (21:07)
[2018-12-21] MEDS: APIXABAN 2.5 MG TAB PO SCH (21:07)
[2018-12-21] MEDS: HydrALAZINE TAB 50 MG TAB PO SCH (21:07)
[2018-12-21] MEDS: PANTOprazole 40 MG TAB PO SCH (21:08)
[2018-12-21] MEDS: INSULIN ASPART 100 UNITS/ML 3 ML PEN SC SCH (21:15)
[2018-12-21] MEDS ORDERED: INSULIN ASPART 100 UNITS/ML 3 ML PEN SC SCH (22:00)
[2018-12-22] MEDS: FLUTICASONE/SALMETEROL 250/50 (ADVAIR) 14 PUFF/1 INHALER INH SCH ×2 (08:46→20:42)
[2018-12-22] MEDS: HydrALAZINE TAB 50 MG TAB PO SCH ×3 (08:47→20:42)
[2018-12-22] MEDS: dilTIAZem HCL 300 MG CAPCR PO SCH (08:47)
[2018-12-22] MEDS: APIXABAN 2.5 MG TAB PO SCH ×2 (08:48→20:42)
[2018-12-22] MEDS: hydroCHLOROthiazide 25 MG TAB PO SCH (08:48)
[2018-12-22] MEDS: FOLIC ACID 1 MG TAB PO SCH (08:48)
[2018-12-22] MEDS: POTASSIUM CHLORIDE 10 MEQ TABCR PO SCH (08:49)
[2018-12-22] MEDS: THIAMINE HCL 100 MG TAB PO SCH (08:50)
[2018-12-22] MEDS: GABAPENTIN 300 MG CAP PO SCH ×3 (08:50→20:43)
[2018-12-22] MEDS: PANTOprazole 40 MG TAB PO SCH ×2 (08:50→20:43)
[2018-12-22] MEDS: CETIRIZINE HCL 10 MG TABLET PO SCH (08:51)
[2018-12-22] MEDS: INSULIN ASPART 100 UNITS/ML 3 ML PEN SC SCH ×4 (09:03→20:50)
--- NOTE | 2018-12-22 09:21 | History & Physical ---
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 HCl (Cardizem Cd) 300 mg PO DAILY [facility] Stop: 01/21/19 08:59 Last Admin: 12/22/18 08:47 Dose: 300 mg Documented by: Ergocalciferol (Vitamin D2) 50,000 units PO Fr@0900 [facility] Stop: 01/24/19 08:59 Folic Acid (Folvite) 1 mg PO DAILY [facility] Stop: 01/21/19 08:59 Last Admin: 12/22/18 08:48 Dose: 1 mg Documented by: Gabapentin (Neurontin) 300 mg PO TID [facility] Stop: 01/20/19 20:59 Last Admin: 12/22/18 08:50 Dose: 300 mg Documented by: Glucagon (Glucagen) 1 mg IM UD PRN; Protocol PRN Reason: Hypoglycemia Protocol Stop: 01/20/19 18:29 Glucose (Glucose 40%) 15 - 30 gm PO UD PRN; Protocol PRN Reason: Hypoglycemia Protocol Stop: 01/20/19 18:29 Glucose (Dex4 Glucose) 4 - 8 tabs PO UD PRN; Protocol PRN Reason: Hypoglycemia Protocol Stop: 01/20/19 18:29 Hydralazine HCl (Apresoline) 50 mg PO TID [facility] Stop: 01/20/19 20:59 Last Admin: 12/22/18 08:47 Dose: 50 mg Documented by: Hydrochlorothiazide (Hctz) 12.5 mg PO DAILY [facility] Stop: 01/21/19 08:59 Last Admin: 12/22/18 08:48 Dose: 12.5 mg Documented by: Hydroxyzine HCl (Vistaril) 50 mg PO HSZ PRN PRN Reason: Insomnia Stop: 01/20/19 17:07 Last Admin: 12/22/18 01:35 Dose: 50 mg Documented by: Hydroxyzine HCl (Vistaril) 25 mg PO Q4H PRN PRN Reason: Anxiety Stop: 01/20/19 17:07 Insulin Aspart (Novolog Flexpen) 0 units SC ACHS [facility]; Protocol Stop: 01/20/19 21:59 Last Admin: 12/22/18 09:03 Dose: 8 units Documented by: Insulin Glargine (Lantus) 50 units SQ HS [facility]; Protocol Stop: 01/20/19 21:59 Last Admin: 12/21/18 21:26 Dose: 50 units Documented by: Lorazepam (Ativan) 1 - 3 mg PO UD PRN; Protocol PRN Reason: EtoH Withdrawal AWSS 6-10+ Stop: 01/20/19 17:13 Last Admin: 12/21/18 21:10 Dose: 2 mg Documented by: Magnesium Hydroxide (Milk Of Magnesia) 30 ml PO DAILY PRN PRN Reason: Heartburn Stop: 01/20/19 17:07 Miscellaneous (Carbohydrates For Hypoglycemia) 15 - 30 gm PO UD PRN PRN Reason: Hypoglycemia Treatment Stop: 01/20/19 18:29 Miscellaneous Information (Consult Glycemic Management Pharmacy) 1 ea N/A UD PRN PRN Reason: Consult Stop: 01/20/19 18:25 Pantoprazole Sodium (Protonix) 40 mg PO BID [facility] Stop: 01/20/19 20:59 Last Admin: 12/22/18 08:50 Dose: 40 mg Documented by: Potassium Chloride (Klor-Con M10) 10 meq PO DAILY [facility] Stop: 01/21/19 08:59 Last Admin: 12/22/18 08:49 Dose: 10 meq Documented by: Ranitidine HCl (Zantac) 300 mg PO HS [facility] Stop: 01/20/19 20:59 Last Admin: 12/21/18 21:10 Dose: 300 mg Documented by: Fluticasone/Salmeterol (Advair Diskus 250/50) 1 puffs INH BID [facility] Stop: 01/20/19 20:59 Last Admin: 12/22/18 08:46 Dose: 1 puffs Documented by: Sodium Chloride ([place] Nasal) 1 - 2 sprays NA PRN PRN PRN Reason: Nasal Dryness/Congestion Stop: 01/20/19 17:07 Thiamine HCl (Vitamin B-1) 100 mg PO QAM [facility] Stop: 01/21/19 08:59 Last Admin: 12/22/18 08:50 Dose: 100 mg Documented by: Trazodone HCl (Desyrel) 200 mg PO HS PRN PRN Reason: Sleep Stop: 01/20/19 17:15 CPT Code CPT Code Initial Hospital Care: [id number]
--- NOTE | 2018-12-22 12:32 | Pharmacy Report ---
Pharmacy Glycemic Short Note 2 - Date of Service December 22, 2018 - Glycemic Short BSG Results (Last 24 hours): 12/21/18 12/22/18 20:56 07:44 POC Glucose 186 H 143 H OUTPATIENT ANTIDIABETIC REGIMEN: * Basaglar (insulin glargine) 60 units SC qHS * Admelog (insulin lispro) TIDM ASSESSMENT: * 53 yo F with T2DM well known to our glycemic service. * Patient has multiple previous admissions, but as most/all of them were for COPD and patient was receiving a significant amount of steroids, her previous *very* tight regimens are likely to be in excess of current needs while not receiving steroids * OK to tighten Novolog parameters slightly after further review of the few days in patient history where she was not on steroids * AM fasting BSG good at 143 mg/dL this AM after receiving 50 units of Lantus last night. Will continue same/similar dose, but add in parameters for adjustment based on BSG to help prevent both hypo- and hyperglycemia PLAN FOR INPATIENT GLYCEMIC CONTROL: * Basal insulin: Lantus SC qHS based on BSG as follows: * 40 units for BSG less than 110 mg/dL * 50 units for BSG 110-180 mg/dL * 60 units for BSG greater than 180 mg/dL * Bolus insulin * NovoLog per scale ACHS * Goal Range: Low 120 mg/dL - High 160 mg/dL * Correction Factor: 15 mg/dL/unit * Nutritional / Prandial insulin per carb ratio of 1 unit per 6 grams CHO consumed
[2018-12-22] MEDS: ACETAMINOPHEN 325 MG TAB PO PRN ×2 (13:22→21:12)
[2018-12-22] MEDS ORDERED: PERPHENAZINE 2 MG TABLET PO STA (13:45)
[2018-12-22] MEDS: PERPHENAZINE 2 MG TABLET PO SCH (20:44)
[2018-12-22] MEDS: INSULIN GLARGINE 100 UNIT/ML VIAL SQ SCH (20:45)
[2018-12-22] MEDS: DICLOFENAC SOD 1% GEL 100 GM TUBE EXT PRN (21:56)
[2018-12-23] MEDS: FLUTICASONE/SALMETEROL 250/50 (ADVAIR) 14 PUFF/1 INHALER INH SCH ×2 (08:14→21:02)
[2018-12-23] MEDS: dilTIAZem HCL 300 MG CAPCR PO SCH (08:15)
[2018-12-23] MEDS: HydrALAZINE TAB 50 MG TAB PO SCH ×3 (08:15→21:04)
[2018-12-23] MEDS: FOLIC ACID 1 MG TAB PO SCH (08:16)
[2018-12-23] MEDS: APIXABAN 2.5 MG TAB PO SCH ×2 (08:16→21:02)
[2018-12-23] MEDS: hydroCHLOROthiazide 25 MG TAB PO SCH (08:16)
[2018-12-23] MEDS: PERPHENAZINE 2 MG TABLET PO SCH ×2 (08:17→21:02)
[2018-12-23] MEDS: PANTOprazole 40 MG TAB PO SCH ×2 (08:17→21:02)
[2018-12-23] MEDS: GABAPENTIN 300 MG CAP PO SCH ×3 (08:17→21:02)
[2018-12-23] MEDS: POTASSIUM CHLORIDE 10 MEQ TABCR PO SCH (08:17)
[2018-12-23] MEDS: ACETAMINOPHEN 325 MG TAB PO PRN ×2 (08:18→23:39)
[2018-12-23] MEDS: THIAMINE HCL 100 MG TAB PO SCH (08:18)
[2018-12-23] MEDS: CETIRIZINE HCL 10 MG TABLET PO SCH (08:18)
[2018-12-23] MEDS: DICLOFENAC SOD 1% GEL 100 GM TUBE EXT PRN ×2 (08:20→14:51)
[2018-12-23] MEDS: INSULIN ASPART 100 UNITS/ML 3 ML PEN SC SCH ×4 (08:48→21:08)
--- NOTE | 2018-12-23 11:20 | Psychiatric Progress Note ---
Date of Service December 23, 2018 Impression / Recommendations Impression 53-year-old single female with a history of schizoaffective disorder NOS, anxiety NOS, antisocial personality disorder, malingering, and polysubstance abuse (most recently alcohol and cocaine, history of benzodiazepine and opiates as well) who presented with suicidal ideation in the context of an argument with her brother, who was apparently living with her, which resulted in her eviction from her apartment. She has been drinking daily and abusing cocaine for at least the past 6 months, with at least 5 hospital contacts since June where her drug screen was positive for cocaine. Pt was restarted on perphenazine at her request to target hallucinations and paranoia. Titrating to 8mg BID starting this evening. CM to assist with outpatient psychiatric referrals as patient has been noncompliant with mental health treatment for years, and has been dismissed from many practices. Although she signed in voluntarily, she is submitted a 72-hour request and is asking to leave treatment. Pt appears to be at her usual baseline, but given her history she would benefit from a concrete aftercare plan. Will discuss discharge tomorrow, as 72-hour notice expires on 12/24 @ 1915, and patient has plan for a housing meeting to discuss options after her eviction. Inpatient treatment is medically necessary at this time due to the severity of her symptoms and risk for harm to herself if discharged prematurely. (1) Suicidal ideations: 12/22 -continue voluntary hospitalization, with every 15 minute checks for safety. -Encourage group attendance and participation. Work on healthy coping skills and discharge safety plan. -Patient denies access to guns, but does have medications at home and a history of suicide attempt by cutting, which was her most recent plan. 12/23 - Feeling better able to contract for safety, though remains paranoid (2) Schizoaffective disorder: 12/22 -patient has endorsed paranoia, delusions of persecution, and hallucinations. She has a previous good response to perphenazine 16 mg twice daily, and is willing to resume that here. Unfortunately, her QTC was prolonged in the ER yesterday, likely exacerbated by cocaine use. We will recheck an EKG today, and once QTc normalizes, can resume perphenazine starting at 4 mg twice daily. -Patient is agreeing to referral for outpatient psychiatric care, we will need to explore options as she has been discharged from multiple practices due to noncompliance. -Meeting with outpatient family independence case manager as below. -Consider involuntary outpatient commitment. This may not be an option during this admission, as the patient is here voluntarily but submitted a 72-hour notice which expires in 2 days. 12/23 - Titrate perphenazine to 8mg BID, continue titration as tolerated (previous home dose of 16mg BID effective for symptoms) - Pt's family independence case manager to assist with outpatient psychiatric referrals, CM to meet with patient again tomorrow morning prior to anticipated discharge - 72-hour notice remains active, expires 12/24 @ 1915. Pt planning to have housing meeting scheduled for tomorrow afternoon, making discharge in the morning likely - Continue to encourage patient in group participation and other treatment goals during remainder of hospitalization (3) Prolonged QT interval: 12/22 - EKG in ER 12/21 sinus tachycardia with rate 113, QTc 496. Will repeat today as cocaine likely metabolized, and want to ensure normal QTc prior to resuming antipsychotic. 12/23 - Repeat EKG yesterday with QTc of 478 prior to initiation of perphenazine; EKG this afternoon following 2 doses of 4mg perphenazine demonstrated QTc of 479 - Review of 2-year history of QTc by family services worker showed these values are not outside of normal readings for this particular patient (4) Alcohol abuse: 12/22 - Patient reports drinking daily, 1.5 fifths of [place], with history of withdrawal. AWSS with gabapentin taper. Received lorazepam 2mg last night. -Contact family independence case manager Aria to schedule meeting and explore options for substance abuse treatment. Reviewed recommendations for inpatient rehab given severity of substance abuse, but patient is refusing. -Recovery protocol. -Brief intervention was offered and accepted Intervention (if performed) was greater than 5 min in length. Brief interventions include: 1. Assess Readiness to Quit, 2. Advise: Help Patient to Reduce or Abstain from Alcohol, 3. Agree: Set Specific, Feasible Goals, 4. Assist: Anticipate barriers, Problem-Solving Solutions. Social work to 5. Arrange: Referrals to appropriate treatment. Summary of intervention: The patient is in precontemplation stage with regards to transtheoretical model of change. The patient is advised to decrease alcohol consumption due to depressant effects and risk of interactions with prescription medications. The patient agreed to referral for outpatient treatment, and will be provided with recovery materials to continue to education self on how to cope with their condition without drinking. (5) Cocaine abuse: 12/22 -provide education regarding the risks of ongoing substance use, including worsening mood and psychotic symptoms, suicidal ideation, sleep disruption, exacerbation of medical problems, cardiac arrest, and . -Recommend inpatient rehab, which the patient is refusing. -Would not prescribe this patient any controlled substances due to the very high risk of abuse/misuse/negative outcomes. (6) Noncompliance with treatment: 12/22 - chronic, consider IOC as above (7) DM type 2 (diabetes mellitus, type 2): 12/22 - appreciate diabetic pharmacist consult; continue insulin and monitoring of blood glucose. Follow-up with PCP after discharge. (8) HTN (hypertension): 12/22 -continue home doses of hydralazine, diltiazem, and HCTZ. Hypertensive, likely exacerbated by cocaine and alcohol use, unclear if was compliant with medication at home. Continue to monitor and consider need for hospitalist consult. Rechecking EKG today. (9) COPD (chronic obstructive pulmonary disease): 12/22 - Continue inhalers Inventory Assets Strengths: Has resources, willing for outpatient treatment Needs: Adherence with treatment including medications and outpatient appointments, sobriety from substances Risk Factors Assessment Male: No : No Do You Have Access To A Gun?: No (Patient has a history of multiple felonies) Health Problems: Yes Mental Health Diagnoses: Yes Substance Use Disorders: Yes Previous Attempt: Yes Family History of Suicide: Yes Previous Psychiatric Hospitalization: Yes Hopelessness: Yes Smoker: Yes Protective Factors Assessment Jehovah'S Witness Beliefs: No : No Responsible for Young Children: No Employed: No Stable Relationships: No Supportive Family: No Good Rapport with Provider: No Interval History Identifying Information TRINA LEMUS is a 53-year-old F who currently lives in [place] alone, has a history of schizoaffective disorder, personality disorder, polysubstance abuse, and treatment noncompliance, and was admitted on 12/21/18 17:09 on a 201 voluntary commitment for suicidality. Despite her being agreeable to voluntary admission, patient signed her 72-hour notice shortly after coming to the unit - it expires 12/24 @ 1915. Chief Complaint "Oh, I'm doin' fine thanks. Just a little sleep from the medication, I haven't been on it for years." Review of Systems Notes Constitutional: reports fatigue after AM dose of perphenazine, also limited sleep prior to admission Cardiovascular: denied Respiratory: denied Gastrointestinal: denied Neurological: denied Musculoskeletal: reports ongoing foot pain, due to fracture Psychiatric: denies symptoms other than stated above Total of at least 10 systems reviewed, pertinent positives as above and in HPI. Sleep Information Total Hours of Sleep: 6 Sleep Comments: pt given vistaril per rn. pt on q-15 minute checks Meal Information Percent Meal Consumed - Breakfast: 100 Percent Meal Consumed - Lunch: 75 Subjective Subjective Patient was seen & assessed and interval progress reviewed with Treatment Team. Staff reports the patient's behavior has been appropriate, and she is attending group programming. She rated her mood a 7/10 and "more at ease" last evening. Pt states she is to have a meeting on 12/24 to discuss housing options following her eviction. Pt was seen today to assess progress since admission. Pt states she is doing well, but a little sleepy. She attributes this to the initiation of perphenazine, and is planning to take a "power nap" after our interaction. Pt was reminded that she had reportedly been up for several days prior to admission, and that she could likely use the rest. We briefly discussed her substance abuse, and she remains superficially agreeable for outpatient D&A treatment to address this. Pt states she is hopeful for discharge tomorrow, and will need to call this afternoon to schedule her housing meeting for tomorrow. Pt reports feeling safe here on the unit, and states, "I've always been paranoid outside of here - but I know I have a way out." Pt clarifies that this is in reference to her "back exit from my apartment", and not to SI. She feels as though she would be able to remain safe outside of the hospital setting. She is, however, concerned about how she will be getting home from this hospitalization - planning to discuss this with her family independence case manager tomorrow morning. Pt denies any other needs or concerns at this time, and was left to get some sleep. Physical Exam Psychiatric Orientation: alert, oriented x 3 and cooperative Apperance: appropriately dressed and appropriately groomed Overweight Eye Contact: good eye contact Motor Behavior: no abnormal motor movements (resting in bed at time of interaction) Speech: normal rate/rhythm/volume of speech Affect: + blunted affect (not appearing acutely depressed) Mood: + anxious mood; no depressed mood (reports improvement in mood) Thought Process: goal directed thought process and clear/coherent thought process Thought Content: + paranoid (vague paranoia about people stealing from her/getting into her home) and reality based without delusions (no obvious delusional thought content voiced) Suicidal Thoughts: denies suicidal thoughts Homicidal Thoughts: denies homicidal thoughts Hallucinations: no auditory hallucinations and no visual hallucinations Denies hallucinations today Cognition: remote memory grossly intact, attention grossly intact and language grossly intact Estimated Intelligence: consistent with education level Insight: + fair insight Judgement: + fair judgement Vital Signs (Past 24 Hours) Last Vital Signs Temp 36.9 C 12/23/18 11:16 Pulse 91 H 12/23/18 11:16 Resp 18 12/23/18 11:16 BP 125/80 12/23/18 11:16 Pulse Ox 96 12/21/18 19:28 Results & Data Laboratory Results Laboratory Results - last 24 hr 12/21/18 12/22/18 12/22/18 11:49 12:35 17:14 POC Glucose 174 H 189 H U Cocaine Confirm GC/MS 578 A 12/22/18 12/23/18 20:34 08:12 POC Glucose 208 H 117 H U Cocaine Confirm GC/MS Current Inpatient Medications Current Inpatient Medications: Current Inpatient Medications Acetaminophen (Tylenol) 650 mg PO Q4H PRN PRN Reason: Headache or Minor Fever Stop: 01/20/19 17:07 Last Admin: 12/23/18 08:18 Dose: 650 mg Documented by: Al Hydrox/Mg Hydrox/Simethicone (Maalox) 30 ml PO Q4H PRN PRN Reason: GI Upset Stop: 01/20/19 17:07 Albuterol (Ventolin 0.083% 2.5mg/3ml) 2.5 mg INH Q4R PRN PRN Reason: Shortness Of Breath Or Wheezing Stop: 01/20/19 17:15 Apixaban (Eliquis) 2.5 mg PO BID [facility] Stop: 01/20/19 20:59 Last Admin: 12/23/18 08:16 Dose: 2.5 mg Documented by: Bismuth Subsalicylate (Kaopectate) 15 ml PO PRN PRN PRN Reason: Loose Stool Stop: 01/20/19 17:07 Cetirizine HCl (Zyrtec) 10 mg PO DAILY [facility] Stop: 01/21/19 08:59 Last Admin: 12/23/18 08:18 Dose: 10 mg Documented by: Cyclobenzaprine HCl (Flexeril) 10 mg PO BID PRN PRN Reason: MUSCLE SPASMS Stop: 01/20/19 17:15 Dextrose (Dextrose 50%) 25 - 50 ml IV UD PRN; Protocol PRN Reason: Hypoglycemia Protocol Stop: 01/20/19 18:29 Diclofenac Sodium (Voltaren 1% Top) 4 appln EXT QID PRN PRN Reason: Pain Stop: 01/20/19 17:15 Last Admin: 12/23/18 08:20 Dose: 4 appln Documented by: Diltiazem HCl (Cardizem Cd) 300 mg PO DAILY [facility] Stop: 01/21/19 08:59 Last Admin: 12/23/18 08:15 Dose: 300 mg Documented by: Ergocalciferol (Vitamin D2) 50,000 units PO Fr@0900 [facility] Stop: 01/24/19 08:59 Folic Acid (Folvite) 1 mg PO DAILY [facility] Stop: 01/21/19 08:59 Last Admin: 12/23/18 08:16 Dose: 1 mg Documented by: Gabapentin (Neurontin) 300 mg PO TID [facility] Stop: 01/20/19 20:59 Last Admin: 12/23/18 08:17 Dose: 300 mg Documented by: Glucagon (Glucagen) 1 mg IM UD PRN; Protocol PRN Reason: Hypoglycemia Protocol Stop: 01/20/19 18:29 Glucose (Glucose 40%) 15 - 30 gm PO UD PRN; Protocol PRN Reason: Hypoglycemia Protocol Stop: 01/20/19 18:29 Glucose (Dex4 Glucose) 4 - 8 tabs PO UD PRN; Protocol PRN Reason: Hypoglycemia Protocol Stop: 01/20/19 18:29 Hydralazine HCl (Apresoline) 50 mg PO TID [facility] Stop: 01/20/19 20:59 Last Admin: 12/23/18 08:15 Dose: 50 mg Documented by: Hydrochlorothiazide (Hctz) 12.5 mg PO DAILY [facility] Stop: 01/21/19 08:59 Last Admin: 12/23/18 08:16 Dose: 12.5 mg Documented by: Hydroxyzine HCl (Vistaril) 50 mg PO HSZ PRN PRN Reason: Insomnia Stop: 01/20/19 17:07 Last Admin: 12/22/18 01:35 Dose: 50 mg Documented by: Hydroxyzine HCl (Vistaril) 25 mg PO Q4H PRN PRN Reason: Anxiety Stop: 01/20/19 17:07 Last Admin: 12/22/18 13:22 Dose: 25 mg Documented by: Insulin Aspart (Novolog Flexpen) [address] [facility]; Protocol Stop: 01/20/19 21:59 Last Admin: 12/23/18 08:48 Dose: 2 units Documented by: Insulin Glargine (Lantus) 0 units SQ HS [facility]; Protocol Stop: 01/21/19 21:59 Last Admin: 12/22/18 20:45 Dose: 60 units Documented by: Lorazepam (Ativan) 1 - 3 mg PO UD PRN; Protocol PRN Reason: EtoH Withdrawal AWSS 6-10+ Stop: 01/20/19 17:13 Last Admin: 12/21/18 21:10 Dose: 2 mg Documented by: Magnesium Hydroxide (Milk Of Magnesia) 30 ml PO DAILY PRN PRN Reason: Heartburn Stop: 01/20/19 17:07 Miscellaneous (Carbohydrates For Hypoglycemia) 15 - 30 gm PO UD PRN PRN Reason: Hypoglycemia Treatment Stop: 01/20/19 18:29 Miscellaneous Information (Consult Glycemic Management Pharmacy) 1 ea N/A UD PRN PRN Reason: Consult Stop: 01/20/19 18:25 Pantoprazole Sodium (Protonix) 40 mg PO BID [facility] Stop: 01/20/19 20:59 Last Admin: 12/23/18 08:17 Dose: 40 mg Documented by: Perphenazine (Trilafon) 4 mg PO BID [facility] Stop: 01/21/19 20:59 Last Admin: 12/23/18 08:17 Dose: 4 mg Documented by: Potassium Chloride (Klor-Con M10) 10 meq PO DAILY [facility] Stop: 01/21/19 08:59 Last Admin: 12/23/18 08:17 Dose: 10 meq Documented by: Ranitidine HCl (Zantac) 300 mg PO HS [facility] Stop: 01/20/19 20:59 Last Admin: 12/22/18 20:48 Dose: 300 mg Documented by: Fluticasone/Salmeterol (Advair Diskus 250/50) 1 puffs INH BID [facility] Stop: 01/20/19 20:59 Last Admin: 12/23/18 08:14 Dose: 1 puffs Documented by: Sodium Chloride ([place] Nasal) 1 - 2 sprays NA PRN PRN PRN Reason: Nasal Dryness/Congestion Stop: 01/20/19 17:07 Thiamine HCl (Vitamin B-1) 100 mg PO QAM [facility] Stop: 01/21/19 08:59 Last Admin: 12/23/18 08:18 Dose: 100 mg Documented by: Trazodone HCl (Desyrel) 200 mg PO HS PRN PRN Reason: Sleep Stop: 01/20/19 17:15 Post Discharge Appointments Primary Care Physician Name Of Family Doctor: Dr. Arellano Primary Care Therapist Name of Therapist: None Manager Stone Name of Manager Stone: Brittney Bethea Phone Number for Manager Stone: [phone] Contact Information Discharge Discharge [address]: [address] [place] [address],[place] [address] CPT Code CPT Code 58532 (1) Schizoaffective disorder Schizoaffective disorder type: unspecified Qualified Code(s): F25.9 - Schizoaffective disorder, unspecified
[2018-12-23] MEDS: INSULIN GLARGINE 100 UNIT/ML VIAL SQ SCH ×2 (21:07→21:18)
[2018-12-24] MEDS: FLUTICASONE/SALMETEROL 250/50 (ADVAIR) 14 PUFF/1 INHALER INH SCH (07:35)
[2018-12-24] MEDS: HydrALAZINE TAB 50 MG TAB PO SCH (07:36)
[2018-12-24] MEDS: dilTIAZem HCL 300 MG CAPCR PO SCH (07:36)
[2018-12-24] MEDS: FOLIC ACID 1 MG TAB PO SCH (07:37)
[2018-12-24] MEDS: APIXABAN 2.5 MG TAB PO SCH (07:37)
[2018-12-24] MEDS: hydroCHLOROthiazide 25 MG TAB PO SCH (07:37)
[2018-12-24] MEDS: GABAPENTIN 300 MG CAP PO SCH (07:38)
[2018-12-24] MEDS: POTASSIUM CHLORIDE 10 MEQ TABCR PO SCH (07:38)
[2018-12-24] MEDS: PANTOprazole 40 MG TAB PO SCH (07:38)
[2018-12-24] MEDS: CETIRIZINE HCL 10 MG TABLET PO SCH (07:39)
[2018-12-24] MEDS: PERPHENAZINE 2 MG TABLET PO SCH (07:39)
[2018-12-24] MEDS: THIAMINE HCL 100 MG TAB PO SCH (07:39)
[2018-12-24 07:47] LABS: Creatinine Clr Calc Pharmacy 141.2 ml/min; Est GFR (African American) 121.8; Est GFR (Non-African American) 105.1
[2018-12-24] MEDS: INSULIN ASPART 100 UNITS/ML 3 ML PEN SC SCH (08:36)
--- NOTE | 2018-12-24 09:23 | Pharmacy Report ---
Pharmacy Glycemic Short Note 2 - Date of Service December 24, 2018 - Glycemic Short BSG Results (Last 24 hours): 12/23/18 12/23/18 12/23/18 12:38 17:03 20:47 POC Glucose 142 H 207 H 117 H 12/24/18 07:25 POC Glucose 123 H OUTPATIENT ANTIDIABETIC REGIMEN: * Basaglar (insulin glargine) 60 units SC qHS * Admelog (insulin lispro) TIDM ASSESSMENT: 12/24/18 * Patient refused Lantus last night, spoke to RN today, states pt sometimes skips her Lantus doses d/t "knowing her own body and needs", asked if patient sometimes takes a reduced dose - she sometimes takes 50 units, sometimes 60 units, and sometimes no Lantus HS. Fasting BSG 123mg/dl today, and plans for discharge today. Will not make any further adjustments. * Note pt has lost 61 lbs recently, decreasing her insulin needs. 12/22/18 * 53 yo F with T2DM well known to our glycemic service. * Patient has multiple previous admissions, but as most/all of them were for COPD and patient was receiving a significant amount of steroids, her previous *very* tight regimens are likely to be in excess of current needs while not receiving steroids * OK to tighten Novolog parameters slightly after further review of the few days in patient history where she was not on steroids * AM fasting BSG good at 143 mg/dL this AM after receiving 50 units of Lantus last night. Will continue same/similar dose, but add in parameters for adjustment based on BSG to help prevent both hypo- and hyperglycemia PLAN FOR INPATIENT GLYCEMIC CONTROL: * Basal insulin: Lantus SC qHS based on BSG as follows: * 40 units for BSG less than 110 mg/dL * 50 units for BSG 110-180 mg/dL * 60 units for BSG greater than 180 mg/dL * Bolus insulin * NovoLog per scale ACHS * Goal Range: Low 120 mg/dL - High 160 mg/dL * Correction Factor: 15 mg/dL/unit * Nutritional / Prandial insulin per carb ratio of 1 unit per 6 grams CHO consumed
--- NOTE | 2018-12-24 09:28 | Discharge Summary ---
Date of Service December 24, 2018 History of Present Illness The patient is well known to us from multiple previous hospitalizations and consultations. She was last on our unit in 03/2017 for polysubstance abuse (opiates, cocaine, and alcohol), and schizoaffective disorder, has a long history of noncompliance with medical and mental health treatment. At that time, she had been noncompliant with psychotropic medications and was restarted on perphenazine, was tapered off of opiate pain medications due to ongoing substance abuse, treated for alcohol withdrawal, and we attempted to refer her for outpatient mental health treatment, but she had been dismissed from multiple local clinics due to noncompliance and drug-seeking. We have seen her numerous times on the consult service since her last psychiatric hospitalization. Per records, she presented to the ER yesterday 12/21/18 with back, chest, and foot pain. She was intoxicated with a BAL of 278, and drug screen was positive for cocaine. She was demanding Ativan, was belligerent with staff, and made suicidal statements in the ER. She reported suicidal thoughts with a plan to slit her throat, stating she was unable to move past an argument with her brother the week before where "he said horrible things to me and moved out. He tore my heart up and I can't get over it. Ever since then I've been thinking about slitting my throat. I want to go be with Srinath. I don't want to live anymore." She reported noncompliance with mental health treatment, stating she had no outpatient providers and was not taking any medications. She endorsed hearing auditory hallucinations of voices, and said she was not safe to return home. She reported drinking aparna daily, with shakes and sweats when she stops drinking. She reported a sense of impending doom, stating she knows something bad is going to happen. Although she initially agreed to sign involuntarily, she then stated she was not sure if she wanted to do so, but ultimately did sign in. She then submitted a 72-hour notice requesting to withdraw from treatment shortly after arriving on the inpatient unit. She endorsed paranoia to staff on the U, stating she believes she saw a man with a gun in a towel" they are trying to kill me." She talked about gang members who were out to get her, and requested staff to stay with her so that she had someone to talk to. She slept only 1 hour last night, and told staff she did not want to fall asleep as she was afraid someone would come in and shoot her. On my assessment today, she was seen with Dr. Miller. She reports an argument with her older brother last week, where he "said a lot of mean things to me" and negatively impacted her mood. He had been staying with her "for months at a time," and she told him to "leave and never come back." Prior to that argument, she says she was "doing fine," but afterwards felt "worthless, didn't want to live anymore." She has poor recall of the past week, is able to state she was in the hospital but is unsure of the exact timeline of events. She reports high stress, "I have so many problems, soon as I fix one, there's another." She initially says she is in the process of moving, but then says she doesn't know where she is going, but needs to move soon, and she was evicted from her apartment due to having other people living there. She reports decreased appetite and significant weight loss (60 lbs . in several month). She reports ongoing suicidal thoughts, but denies intent to act on them here. Sleep has been poor, stating she hasn't slept well in days to weeks. She does feel better after getting 1 hour of sleep last night. She reports worry and racing thoughts. She denies hallucinations and HI. She does not want to be here and does not think she needs inpatient treatment, says she only signed in voluntarily because she was told she would be 302'd if she didn't sign in. She says she submitted a 72 hour notice because she has to move. She says the crossing gateman came as her brother was staying there and wasn't supposed to be, and she got evicted. She doesn't want psychiatric or substance abuse treatment, saying she doesn't have time. She admits to regular cocaine use, 3-4 times a week, and daily alcohol use, a fifth and a half a day of aparna. She has had withdrawal symptoms (shakes and sweats) the morning after. She says she was supposed to meet with her [email or web address] registered nurse hh case manager this week to set up substance abuse counseling. She denies having any other mental health services in the community. She would like to get back on the perphenazine, and is willing for referrals for outpatient treatment. She is unwilling to consider inpatient rehab, stating she needs to deal with her housing situation. Physical Exam Psychiatric Orientation: alert, oriented x 3 and cooperative Apperance: appropriately dressed, appropriately groomed and appeared stated age Eye Contact: good eye contact Motor Behavior: steady gait and station and no abnormal motor movements Speech: normal rate/rhythm/volume of speech Slightly blunted, but reactive, smiles appropriately, and stable. "Pretty good," rates mood 9/10. Thought Process: goal directed thought process Thought Content: reality based without delusions Suicidal Thoughts: denies suicidal thoughts Homicidal Thoughts: denies homicidal thoughts Hallucinations: no auditory hallucinations and no visual hallucinations Cognition: recent memory grossly intact, attention grossly intact and language grossly intact Insight: + limited insight Judgement: + limited judgement Vital Signs (Past 24 Hours) Last Vital Signs Temp 37 C 12/24/18 06:37 Pulse 102 H 12/24/18 06:37 Resp 18 12/24/18 06:37 BP 164/102 H 12/24/18 06:37 Pulse Ox 96 12/21/18 19:28 Principal Diagnosis Schizoaffective disorder not otherwise specified Anxiety not otherwise specified Cocaine use disorder Alcohol use disorder Noncompliance with treatment History of benzodiazepine and opiate use disorders History of malingering Psychiatric Data The patient was hospitalized on our unit for 3 days. She submitted a 72-hour notice shortly after signing in voluntarily. She requested to be restarted on perphenazine, which she has found beneficial for mood, paranoia, and hallucinations in the past. It was titrated to 8 mg twice daily, and she tolerated it well, but did report some excessive sleepiness, which may have been due to severe sleep deprivation prior to admission. She slept well in the hospital, attended and participated in groups and therapy, and was compliant and cooperative with treatment. She reported ongoing cocaine abuse but was very vague about the specifics; per review of records it had been going on for at least the past 6 months based on frequent hospital contacts with UDS positive for cocaine. She also endorsed daily alcohol use and had mild alcohol withdrawal symptoms, for which she received the gabapentin taper and lorazepam as needed. The recommendations for inpatient substance abuse treatment were reviewed with her, but she declined, stating that she needed to be discharged rapidly so that she could address her housing situation. She reported that she had recently been evicted from her section 8 housing because 1 of her brothers had been living with her. She indicated there was more to the story regarding her housing problems, but did not want to give additional details. She agreed to meet with her blended registered nurse hh case manager, Aria, from [employer] while she was on the unit, as she is assisting the patient with her housing problems as well as getting her back into outpatient treatment with a therapist, psychiatrist, and substance abuse treatment. Her EKG showed prolonged QTC in the ER (496, HR 119), likely due to cocaine. It was rechecked the following day prior to resuming perphenazine, and was normal sinus rhythm with a QTC of 478, which is her baseline. The diabetic pharmacist was consulted and assisted with managing her insulin regimen. Her first day of admission, she appeared paranoid, but this resolved throughout the course of her stay. She was consistently reporting good mood and denying thoughts of harming herself or others. She was performing ADLs independently, showering and doing her laundry. Day of Discharge Assessment Staff report the patient has been attending and participating in groups, compliant with medications, and has a meeting with her blended registered nurse hh case manager this morning prior to discharge. She is hoping to have outpatient services arranged with the assistance of her BCM, but declined the recommendations to go to [facility] for substance abuse treatment, as she has previously been treated there and does not want to return. On my assessment, she reports her mood is "pretty good," denies thoughts of harming herself or anyone. Denies paranoia, hallucinations, and thinks perphenazine is helping. Reviewed that it may take some time to titrate her to the appropriate dose, and that she will need to follow-up with an outpatient psychiatrist once that is arranged by her registered nurse hh case manager. She is anxious to leave the hospital, stating that she needs to start working on her housing. She indicates that she got "bad news" about her housing yesterday, stating she might not be eligible because of "something I said to my registered nurse hh case manager." She does not want to disclose any further information. She says she plans to abstain from alcohol and cocaine by "putting my best foot forward," and remains unwilling to consider inpatient substance abuse treatment, although is aware this is her primary recommendation. Advised to consider this if she is unsuccessful with sobriety. She reports good sleep and appetite, and is hoping to be home in time to see her favorite television program. Transition of Care Transition Of Care Record: was reviewed with the patient Advance Directives Advance Directives Information Provided: Yes Advance Directives: No Mental Health Advance Directive: No Advance Directives on File: No Living Will: No Power of Distribution Associate: No Advance Directives Reason:: Declines as Mental Health Visit. Risk Factors Assessment Risk factors were mitigated by admission to the inpatient unit, treating substance withdrawal, resuming psychotropic medication to target schizoaffective disorder, educating the patient about her diagnoses and the recommended treatment, recommending inpatient rehab for her substance abuse which she declined, coordination of care with her outpatient registered nurse hh case manager who is assisting her to get back into outpatient mental health and substance abuse treatment, treating her comorbid medical conditions, involving her in groups and therapy, working on healthy coping skills and her discharge safety plan. The patient is endorsing improved mood, psychotic symptoms have resolved, she is consistently denying thoughts of harming herself or anyone else, and is performing ADLs independently. She has been compliant with treatment, is taking medications, and states willingness to follow up with outpatient care. She submitted a 72- hour notice which expires today, is requesting discharge, and that she is no longer at acute risk of harm to herself or others, can be managed as an outpatient at this time. Male: No : No Do You Have Access To A Gun?: No (Patient has a history of multiple felonies) Health Problems: Yes Mental Health Diagnoses: Yes Substance Use Disorders: Yes Previous Attempt: Yes Family History of Suicide: Yes Previous Psychiatric Hospitalization: Yes Hopelessness: Yes Smoker: Yes Protective Factors Assessment Restorationist Beliefs: No : No Responsible for Young Children: No Employed: No Stable Relationships: No Supportive Family: No Good Rapport with Provider: No Tobacco Cessation at Discharge Tobacco Cessation Medication Prescribed at Discharge: Offered & Pt Refused Total Time Total Time Spent: Greater Than 30 Minutes Total Time Includes: Examination of the patient, Discharge Planning and Medication Reconciliation Discharge Data Lab Results 06/12/21/18 12/21/18 01:10 01:10 01:36 WBC 6.25 RBC 3.93 L Hgb 13.9 Hct 39.7 MCV 101.0 H MCH 35.4 H MCHC 35.0 RDW Std Deviation 48.9 H RDW Coeff of Ally 13.2 Plt Count 221 MPV 10.1 Immature Gran % (Auto) 0.2 Neut % (Auto) 45.2 Lymph % (Auto) 47.0 [place] % (Auto) 6.2 Eos % (Auto) 0.8 Baso % (Auto) 0.6 Immature Gran # (Auto) 0.01 Neut # (Auto) 2.82 Lymph # (Auto) 2.94 [place] # (Auto) 0.39 Eos # (Auto) 0.05 Baso # (Auto) 0.04 Sodium 138 Potassium 3.5 Chloride 102 Carbon Dioxide 27 Anion Gap 9.0 BUN 7 Creatinine 0.73 Est Cr Clr Drug Dosing 111.0 Est GFR ( Amer) 108.2 Est GFR (Non-Af Amer) 93.4 BUN/Creatinine Ratio 9.5 L Glucose 171 H POC Glucose Calcium 8.8 Total Bilirubin 0.2 AST 62 H ALT 73 Alkaline Phosphatase 139 H Total Creatine Kinase 131 Total Protein 8.0 Albumin 3.4 Globulin 4.6 H Albumin/Globulin Ratio 0.7 L Lipase 572 H Urine Color Urine Appearance Urine pH Ur Specific [place] Urine Protein Urine Glucose (UA) Urine Ketones Urine Blood Urine Nitrite Urine Bilirubin Urine Urobilinogen Ur Leukocyte Esterase Urine Opiates Screen Ur Methadone, Qual Urine Barbiturates Ur Phencyclidine (PCP) U Amphetamin/Meth Scrn MDMA (Ecstasy) Screen U Benzodiazepines Scrn U Cocaine Confirm GC/MS Ur Cocaine Metabolite U Marijuana (THC) Screen Ethyl Alcohol mg/dL 278.0 H 12/21/18 12/21/18 12/21/18 07:44 11:49 11:49 WBC RBC Hgb Hct MCV MCH MCHC RDW Std Deviation RDW Coeff of Ally Plt Count MPV Immature Gran % (Auto) Neut % (Auto) Lymph % (Auto) [place] % (Auto) Eos % (Auto) Baso % (Auto) Immature Gran # (Auto) Neut # (Auto) Lymph # (Auto) [place] # (Auto) Eos # (Auto) Baso # (Auto) Sodium Potassium Chloride Carbon Dioxide Anion Gap BUN Creatinine Est Cr Clr Drug Dosing Est GFR ( Amer) Est GFR (Non-Af Amer) BUN/Creatinine Ratio Glucose POC Glucose 143 H Calcium Total Bilirubin AST ALT Alkaline Phosphatase Total Creatine Kinase Total Protein Albumin Globulin Albumin/Globulin Ratio Lipase Urine Color Yellow Urine Appearance Clear Urine pH 8.0 H Ur Specific [place] 1.013 Urine Protein Negative Urine Glucose (UA) 1+ H Urine Ketones Negative Urine Blood Negative Urine Nitrite Negative Urine Bilirubin Negative Urine Urobilinogen Negative Ur Leukocyte Esterase Negative Urine Opiates Screen Neg Ur Methadone, Qual Neg Urine Barbiturates Neg Ur Phencyclidine (PCP) Neg U Amphetamin/Meth Scrn Neg MDMA (Ecstasy) Screen Neg U Benzodiazepines Scrn Neg U Cocaine Confirm GC/MS Ur Cocaine Metabolite Pos H U Marijuana (THC) Screen Neg Ethyl Alcohol mg/dL 12/21/18 12/21/18 12/22/18 11:49 20:56 07:44 WBC RBC Hgb Hct MCV MCH MCHC RDW Std Deviation RDW Coeff of Ally Plt Count MPV Immature Gran % (Auto) Neut % (Auto) Lymph % (Auto) [place] % (Auto) Eos % (Auto) Baso % (Auto) Immature Gran # (Auto) Neut # (Auto) Lymph # (Auto) [place] # (Auto) Eos # (Auto) Baso # (Auto) Sodium Potassium Chloride Carbon Dioxide Anion Gap BUN Creatinine Est Cr Clr Drug Dosing Est GFR ( Amer) Est GFR (Non-Af Amer) BUN/Creatinine Ratio Glucose POC Glucose 186 H 143 H Calcium Total Bilirubin AST ALT Alkaline Phosphatase Total Creatine Kinase Total Protein Albumin Globulin Albumin/Globulin Ratio Lipase Urine Color Urine Appearance Urine pH Ur Specific [place] Urine Protein Urine Glucose (UA) Urine Ketones Urine Blood Urine Nitrite Urine Bilirubin Urine Urobilinogen Ur Leukocyte Esterase Urine Opiates Screen Ur Methadone, Qual Urine Barbiturates Ur Phencyclidine (PCP) U Amphetamin/Meth Scrn MDMA (Ecstasy) Screen U Benzodiazepines Scrn U Cocaine Confirm GC/MS 578 A Ur Cocaine Metabolite U Marijuana (THC) Screen Ethyl Alcohol mg/dL 12/22/18 12/22/18 12/22/18 12:35 17:14 20:34 WBC RBC Hgb Hct MCV MCH MCHC RDW Std Deviation RDW Coeff of Ally Plt Count MPV Immature Gran % (Auto) Neut % (Auto) Lymph % (Auto) [place] % (Auto) Eos % (Auto) Baso % (Auto) Immature Gran # (Auto) Neut # (Auto) Lymph # (Auto) [place] # (Auto) Eos # (Auto) Baso # (Auto) Sodium Potassium Chloride Carbon Dioxide Anion Gap BUN Creatinine Est Cr Clr Drug Dosing Est GFR ( Amer) Est GFR (Non-Af Amer) BUN/Creatinine Ratio Glucose POC Glucose 174 H 189 H 208 H Calcium Total Bilirubin AST ALT Alkaline Phosphatase Total Creatine Kinase Total Protein Albumin Globulin Albumin/Globulin Ratio Lipase Urine Color Urine Appearance Urine pH Ur Specific [place] Urine Protein Urine Glucose (UA) Urine Ketones Urine Blood Urine Nitrite Urine Bilirubin Urine Urobilinogen Ur Leukocyte Esterase Urine Opiates Screen Ur Methadone, Qual Urine Barbiturates Ur Phencyclidine (PCP) U Amphetamin/Meth Scrn MDMA (Ecstasy) Screen U Benzodiazepines Scrn U Cocaine Confirm GC/MS Ur Cocaine Metabolite U Marijuana (THC) Screen Ethyl Alcohol mg/dL 12/23/18 12/23/18 12/23/18 08:12 12:38 17:03 WBC RBC Hgb Hct MCV MCH MCHC RDW Std Deviation RDW Coeff of Ally Plt Count MPV Immature Gran % (Auto) Neut % (Auto) Lymph % (Auto) [place] % (Auto) Eos % (Auto) Baso % (Auto) Immature Gran # (Auto) Neut # (Auto) Lymph # (Auto) [place] # (Auto) Eos # (Auto) Baso # (Auto) Sodium Potassium Chloride Carbon Dioxide Anion Gap BUN Creatinine Est Cr Clr Drug Dosing Est GFR ( Amer) Est GFR (Non-Af Amer) BUN/Creatinine Ratio Glucose POC Glucose 117 H 142 H 207 H Calcium Total Bilirubin AST ALT Alkaline Phosphatase Total Creatine Kinase Total Protein Albumin Globulin Albumin/Globulin Ratio Lipase Urine Color Urine Appearance Urine pH Ur Specific [place] Urine Protein Urine Glucose (UA) Urine Ketones Urine Blood Urine Nitrite Urine Bilirubin Urine Urobilinogen Ur Leukocyte Esterase Urine Opiates Screen Ur Methadone, Qual Urine Barbiturates Ur Phencyclidine (PCP) U Amphetamin/Meth Scrn MDMA (Ecstasy) Screen U Benzodiazepines Scrn U Cocaine Confirm GC/MS Ur Cocaine Metabolite U Marijuana (THC) Screen Ethyl Alcohol mg/dL 12/23/18 12/24/18 12/24/18 20:47 07:10 07:25 WBC RBC Hgb Hct MCV MCH MCHC RDW Std Deviation RDW Coeff of Ally Plt Count MPV Immature Gran % (Auto) Neut % (Auto) Lymph % (Auto) [place] % (Auto) Eos % (Auto) Baso % (Auto) Immature Gran # (Auto) Neut # (Auto) Lymph # (Auto) [place] # (Auto) Eos # (Auto) Baso # (Auto) Sodium Potassium Chloride Carbon Dioxide Anion Gap BUN Creatinine 0.57 L Est Cr Clr Drug Dosing 141.2 Est GFR ( Amer) 121.8 Est GFR (Non-Af Amer) 105.1 BUN/Creatinine Ratio Glucose POC Glucose 117 H 123 H Calcium Total Bilirubin AST ALT Alkaline Phosphatase Total Creatine Kinase Total Protein Albumin Globulin Albumin/Globulin Ratio Lipase Urine Color Urine Appearance Urine pH Ur Specific [place] Urine Protein Urine Glucose (UA) Urine Ketones Urine Blood Urine Nitrite Urine Bilirubin Urine Urobilinogen Ur Leukocyte Esterase Urine Opiates Screen Ur Methadone, Qual Urine Barbiturates Ur Phencyclidine (PCP) U Amphetamin/Meth Scrn MDMA (Ecstasy) Screen U Benzodiazepines Scrn U Cocaine Confirm GC/MS Ur Cocaine Metabolite U Marijuana (THC) Screen Ethyl Alcohol mg/dL Hospital Course (1) Suicidal ideations: 12/22 -continue voluntary hospitalization, with every 15 minute checks for safety. -Encourage group attendance and participation. Work on healthy coping skills and discharge safety plan. -Patient denies access to guns, but does have medications at home and a history of suicide attempt by cutting, which was her most recent plan. 12/23 - Feeling better able to contract for safety, though remains paranoid (2) Schizoaffective disorder: 12/22 -patient has endorsed paranoia, delusions of persecution, and hallucinations. She has a previous good response to perphenazine 16 mg twice daily, and is willing to resume that here. Unfortunately, her QTC was prolonged in the ER yesterday, likely exacerbated by cocaine use. We will recheck an EKG today, and once QTc normalizes, can resume perphenazine starting at 4 mg twice daily. -Patient is agreeing to referral for outpatient psychiatric care, we will need to explore options as she has been discharged from multiple practices due to noncompliance. -Meeting with outpatient registered nurse hh case manager as below. -Consider involuntary outpatient commitment. This may not be an option during this admission, as the patient is here voluntarily but submitted a 72-hour notice which expires in 2 days. 12/23 - Titrate perphenazine to 8mg BID, continue titration as tolerated (previous home dose of 16mg BID effective for symptoms) - Pt's registered nurse hh case manager to assist with outpatient psychiatric referrals, CM to meet with patient again tomorrow morning prior to anticipated discharge - 72-hour notice remains active, expires 12/24 @ 1915. Pt planning to have housing meeting scheduled for tomorrow afternoon, making discharge in the morning likely - Continue to encourage patient in group participation and other treatment goals during remainder of hospitalization (3) Prolonged QT interval: 12/22 - EKG in ER 12/21 sinus tachycardia with rate 113, QTc 496. Will repeat today as cocaine likely metabolized, and want to ensure normal QTc prior to resuming antipsychotic. 12/23 - Repeat EKG yesterday with QTc of 478 prior to initiation of perphenazine; EKG this afternoon following 2 doses of 4mg perphenazine demonstrated QTc of 479 - Review of 2-year history of QTc by family engagement specialist showed these values are not outside of normal readings for this particular patient (4) Alcohol abuse: 12/22 - Patient reports drinking daily, 1.5 fifths of aparna, with history of withdrawal. AWSS with gabapentin taper. Received lorazepam 2mg last night. -Contact registered nurse hh case manager Aria to schedule meeting and explore options for substance abuse treatment. Reviewed recommendations for inpatient rehab given severity of substance abuse, but patient is refusing. -Recovery protocol. -Brief intervention was offered and accepted Intervention (if performed) was greater than 5 min in length. Brief interventions include: 1. Assess Readiness to Quit, 2. Advise: Help Patie nt to Reduce or Abstain from Alcohol, 3. Agree: Set Specific, Feasible Goals, 4. Assist: Anticipate barriers, Problem-Solving Solutions. Social work to 5. Arrange: Referrals to appropriate treatment. Summary of intervention: The patient is in precontemplation stage with regards to transtheoretical model of change. The patient is advised to decrease alcohol consumption due to depressant effects and risk of interactions with prescription medications. The patient agreed to referral for outpatient treatment, and will be provided with recovery materials to continue to education self on how to cope with their condition without drinking. (5) Cocaine abuse: 12/22 -provide education regarding the risks of ongoing substance use, including worsening mood and psychotic symptoms, suicidal ideation, sleep disruption, exacerbation of medical problems, cardiac arrest, and . -Recommend inpatient rehab, which the patient is refusing. -Would not prescribe this patient any controlled substances due to the very high risk of abuse/misuse/negative outcomes. (6) Noncompliance with treatment: 12/22 - chronic, consider IOC as above (7) DM type 2 (diabetes mellitus, type 2): 12/22 - appreciate diabetic pharmacist consult; continue insulin and monitoring of blood glucose. Follow-up with PCP after discharge. (8) HTN (hypertension): 12/22 -continue home doses of hydralazine, diltiazem, and HCTZ. Hypertensive, likely exacerbated by cocaine and alcohol use, unclear if was compliant with medication at home. Continue to monitor and consider need for hospitalist consult. Rechecking EKG today. (9) COPD (chronic obstructive pulmonary disease): 12/22 - Continue inhalers Post Discharge Appointments Primary Care Physician Name Of Family Doctor: Nathanael Arellano Primary Care Provider Appointment Comment: [address], [place] [address] Therapist Name of Therapist: None Yard Engineer Name of Yard Engineer: Brittney Bethea Phone Number for Yard Engineer: [phone] Case Management Appointment Comment: [id number], [place], [place] [address] Smoking Cessation Counseling Tobacco Cessation Medication Prescribed at Discharge: Offered & Pt Refused Contact Information Discharge Discharge Address: [facility] [address] [place], [place] [address] Discharge Plan Discharge Items Patient Disposition: Home - Self-Care Reason For Visit: SCHIZOAFFECTIVE DISORDER Discharge Diagnosis: Schizoaffective disorder Alcohol abuse Cocaine abuse Condition: Good Discharge Goals: Decrease discomfort and Improve disease control Activity: Per 'Additional Instructions' section Non-emergency contact: Primary Care Provider, Psychiatrist, Therapist and Sales Account Associate Call non-emergency contact if: you have any medication questions and your symptoms worsen Follow-up/Referrals: Yovani Arellano MD [Primary Care Provider] - Diet: Carb Consistent or DM2 Addtl Provider Instructions: SPECIAL CARE INSTRUCTIONS: 1. Follow through with your scheduled aftercare appointments. If unable to keep an appointment, please call to reschedule. 2. Take your medication only as prescribed. Medication should not be changed or stopped without the approval of your doctor. In the event of worsening symptoms or concerns about side effects, contact your doctor immediately. 3. Utilize new healthy coping skills, anger management skills, and stress management skills learned during your hospitalization. Journal feelings and process them with a support person. Identify stressors or situations that may result in relapse, deterioration or inappropriate behaviors and develop a plan to deal with those issues. 4. If your coping skills are ineffective and you are in crisis, contact your outpatient providers for direction. If unable to reach your providers, please call the CAN HELP LINE AT or go to the closest Emergency Room. 5. Avoid alcohol and un-prescribed drugs. 6. You have been provided with the Mental Health Advance Directives Pamphlet for your review. AFTERCARE APPOINTMENTS: * Please call your insurance company prior to your scheduled appointment to confirm your aftercare providers are covered. Take your insurance information to your appointments. WHO TO CALL AND WHEN: Medical Emergencies: For questions or emergencies related to your hospital stay, please contact the Inpatient Behavioral Health Unit at [phone]. A global head advertiser solutions is on-call 20/01 for the Behavioral Health Unit for emergencies At any time you feel your situation is an emergency, you may also call 911 immediately. Your Doctors Instructions noted above were prepared by provider Marlee Gutierrez MD. Prescriptions: New perphenazine 8 mg tablet 8 mg PO BID Qty: 60 RF: 0 Continued albuterol sulfate 2.5 mg /3 mL (0.083 %) Solution For Nebulization 2.5 mg INHALATION Q4 PRN (Reason: Shortness Of Breath Or Wheezing) RF: 0 valacyclovir 500 mg Tablet 500 mg PO QAM RF: 0 trazodone 100 mg Tablet 200 mg PO HS PRN (Reason: Sleep) RF: 0 Basaglar KwikPen U-100 Insulin 100 unit/mL (3 mL) Insulin Pen 60 unit SUBCUT HS RF: 0 omeprazole 20 mg Tablet,Delayed Release (Dr/Ec) 20 mg PO BID RF: 0 cyclobenzaprine 10 mg Tablet 10 mg PO BID PRN (Reason: MUSCLE SPASMS) RF: 0 ranitidine HCl 300 mg Tablet 300 mg PO HS RF: 0 lactulose [Constulose] 10 gram/15 mL solution 30 ml PO DAILY PRN (Reason: Constipation) RF: 0 Eliquis 5 mg tablet 5 mg PO QAM RF: 0 thiamine HCl (vitamin B1) [Vitamin B-1] 100 mg Tablet 100 mg PO QAM Qty: 30 RF: 0 potassium chloride 10 mEq capsule, extended release 10 meq PO DAILY RF: 0 cetirizine [Zyrtec] 10 mg tablet 10 mg PO DAILY RF: 0 diltiazem HCl [Cartia XT] 300 mg capsule,extended release 24hr 300 mg PO DAILY RF: 0 folic acid 1 mg tablet 1 mg PO DAILY RF: 0 ergocalciferol (vitamin D2) [Vitamin D2] 50,000 unit Capsule 50,000 unit PO WK RF: 0 hydroxyzine HCl 10 mg tablet 10 mg PO Q8 PRN (Reason: Itching) RF: 0 insulin lispro [Admelog SoloStar U-100 Insulin] 100 unit/mL insulin pen subcut TIDM RF: 0 diclofenac sodium [Voltaren] 1 % Gel 4 g TOPICAL QID PRN (Reason: Pain) RF: 0 fluticasone propion-salmeterol [AirDuo RespiClick] 232-14 mcg/actuation aerosol powdr breath activated 1 puff inhalation DAILY RF: 0 diphenhydramine HCl 12.5 mg/5 mL elixir 25 mg PO Q6 PRN (Reason: Itching) RF: 0 gabapentin 300 mg Tablet Extended Release 24 Hr 300 mg PO TID RF: 0 hydrochlorothiazide 12.5 mg Tablet 12.5 mg PO DAILY RF: 0 meclizine 12.5 mg Tablet 12.5 mg PO DIRECTED PRN (Reason: Dizziness) RF: 0 hydralazine 50 mg Tablet 50 mg PO TID 30 Days Qty: 90 RF: 0 Stand-Alone Forms: [facility] Discharge Orders: Discharge Order (Routine); Ordered 12/24/18 Ordered By: Marlee Gutierrez Admission Data Admit Date/Time: 12/21/18 17:09 Attending Provider: Marlee Gutierrez Admit Provider: Marlee Gutierrez Primary Care Provider: Yovani Arellano Service: Psychiatry Other Interventions: PSY Interdisciplinary Discharge Planning Last Done: 12/23/18 15:54 Pending Studies at Discharge: No
[2018-12-24] MEDS ORDERED: DESTROY THIS MEDICATION ONE (10:00)
[2018-12-25] MEDS ORDERED: ERGOCALCIFEROL 50,000 UNITS CAP PO SCH (09:00)
== END 2018-12-24 10:43 | disposition home or self-care (01) | DRG 885 ==
LOC: ED 01:13 → 3S 17:09

== ENCOUNTER 2019-05-04 10:30 | Inpatient (IN) ==
--- NOTE | 2019-05-04 11:33 | Emergency Department Note ---
Entered by John Angel acting as a scribe for Itz Navarro MD History of Present Illness General Chief complaint: Mental Health Evaluation Stated complaint: mhid Time Seen by Provider: 05/04/19 10:55 History of Present Illness Maximum Pain Intensity: 0 Home Medications Home Medications Medication Instructions Recorded Confirmed Type albuterol sulfate 2.5 mg INHALATION Q4 PRN 07/05/18 01/01/19 History omeprazole 20 mg PO DAILY 07/05/18 01/01/19 History trazodone 200 mg PO HS PRN 07/05/18 01/01/19 History valacyclovir 500 mg PO QAM 07/05/18 01/01/19 History Eliquis 5 mg PO QAM 09/29/18 01/01/19 History cyclobenzaprine 10 mg PO BID PRN 09/29/18 01/01/19 History lactulose [Constulose] 30 ml PO DAILY PRN 09/29/18 01/01/19 History ranitidine HCl 300 mg PO HS 09/29/18 01/01/19 History thiamine HCl (vitamin B1) [Vitamin 100 mg PO QAM #30 tab 10/13/18 01/01/19 Rx B-1] gabapentin 300 mg PO TID 11/08/18 01/01/19 History hydrochlorothiazide 12.5 mg PO DAILY 11/08/18 01/01/19 History meclizine 12.5 mg PO DIRECTED PRN 11/08/18 01/01/19 History cetirizine [Zyrtec] 10 mg PO DAILY 12/01/18 01/01/19 History diclofenac sodium [Voltaren] 4 g TOPICAL QID PRN 12/01/18 01/01/19 History diltiazem HCl [Cartia XT] 300 mg PO DAILY 12/01/18 01/01/19 History ergocalciferol (vitamin D2) 50,000 unit PO WK 12/01/18 01/01/19 History [Vitamin D2] folic acid 1 mg PO DAILY 12/01/18 01/01/19 History hydroxyzine HCl 10 mg PO Q8 PRN 12/01/18 01/01/19 History insulin lispro [Admelog SoloStar 15 - 18 unit SUBCUT TIDM 12/01/18 01/01/19 History U-100 Insulin] potassium chloride 10 meq PO DAILY 12/01/18 01/01/19 History diphenhydramine HCl 25 mg PO Q6 PRN 12/21/18 01/01/19 History metformin 500 mg PO BID 12/31/18 01/01/19 History hydralazine 50 mg PO BID 01/01/19 01/01/19 History tiotropium bromide [Spiriva 2 puff INHALATION DAILY 01/01/19 01/01/19 History Respimat] valsartan 320 mg PO DAILY 01/01/19 01/01/19 History amoxicillin 500 mg PO TID #30 tab 01/18/19 Rx permethrin [Elimite] 1 appln TOP NOW #120 gm 01/18/19 Rx Allergies Allergy/AdvReac Type Severity Reaction Status Date / Time haloperidol Allergy Severe TONGUE Verified 01/01/19 00:07 SWELLING insulin lispro Allergy Intermediate HIVES Verified 01/01/19 00:07 phenol Allergy Intermediate HIVES Verified 01/01/19 00:07 citalopram Allergy Mild ITCHING Verified 01/01/19 00:07 sulfamethoxazole Allergy Mild RASH Verified 01/01/19 00:07 trimethoprim Allergy Mild RASH Verified 01/01/19 00:07 Bactrim Allergy Unknown RASH Verified 12/01/17 16:09 Penicillins Allergy Unknown UNKNOWN Verified 01/01/19 00:07 topiramate AdvReac Severe SEIZURE Verified 01/01/19 00:07 LIKE ACTIVITY morphine AdvReac Mild HEADACHE Verified 01/01/19 00:07 oxycodone AdvReac Mild ITCH Verified 01/01/19 00:07 Margarine Allergy Severe RASH Uncoded 01/01/19 00:07 Past Med/Surg History Social History Preferred Language: Turkmen Communication Ability: Effective Visual Impairment: No Limitations Mingle Operator Required: No Beliefs That Will Affect Care: None marital status: Single Current Living Situation: Family Current Living Situation Comment: lives with brothers? current occupational status: unemployed and disabled Feels Safe at Home: Yes Smoking Status: Current every day smoker Tobacco Type: cigarettes ; Cigarettes Per Day: 15 ; Second Hand Exposure: Yes ; Hx Alcohol Use: Yes Alcohol type: hard liquor Hx Substance Use: No Physical Exam Vital Signs Vital Signs - 24 hr 05/04/19 10:30 Temperature 98.2 F Temperature Source Oral Sepsis Recent Fever Within 48 Hours No Sepsis New/Unexplained Change in Mental Status No Sepsis Action Taken by Nursing No Action Required Pulse Rate 113 H Respiratory Rate 18 Respiratory Effort / Characteristics Non-Labored Spontaneous Respiratory Depth Normal Respiratory Pattern Regular Blood Pressure 139/89 Blood Pressure Mean 105 Blood Pressure Position Sitting Pulse Oximetry 97 Oxygen Delivery Method Room Air Discharge Plan Visit Data Chief Complaint: Mental Health Evaluation Stated Complaint: mhid ED Provider: Itz Navarro Prescriptions Prescriptions: No Action albuterol sulfate 2.5 mg /3 mL (0.083 %) Solution For Nebulization 2.5 mg INHALATION Q4 PRN (Reason: Shortness Of Breath Or Wheezing) RF: 0 valacyclovir 500 mg Tablet 500 mg PO QAM RF: 0 trazodone 100 mg Tablet 200 mg PO HS PRN (Reason: Sleep) RF: 0 omeprazole 20 mg Tablet,Delayed Release (Dr/Ec) 20 mg PO DAILY RF: 0 cyclobenzaprine 10 mg Tablet 10 mg PO BID PRN (Reason: MUSCLE SPASMS) RF: 0 ranitidine HCl 300 mg Tablet 300 mg PO HS RF: 0 lactulose [Constulose] 10 gram/15 mL solution 30 ml PO DAILY PRN (Reason: Constipation) RF: 0 Eliquis 5 mg tablet 5 mg PO QAM RF: 0 thiamine HCl (vitamin B1) [Vitamin B-1] 100 mg Tablet 100 mg PO QAM Qty: 30 RF: 0 potassium chloride 10 mEq capsule, extended release 10 meq PO DAILY RF: 0 cetirizine [Zyrtec] 10 mg tablet 10 mg PO DAILY RF: 0 diltiazem HCl [Cartia XT] 300 mg capsule,extended release 24hr 300 mg PO DAILY RF: 0 folic acid 1 mg tablet 1 mg PO DAILY RF: 0 ergocalciferol (vitamin D2) [Vitamin D2] 50,000 unit Capsule 50,000 unit PO WK RF: 0 hydroxyzine HCl 10 mg tablet 10 mg PO Q8 PRN (Reason: Itching) RF: 0 insulin lispro [Admelog SoloStar U-100 Insulin] 100 unit/mL insulin pen 15 - 18 unit subcut TIDM RF: 0 diclofenac sodium [Voltaren] 1 % Gel 4 g TOPICAL QID PRN (Reason: Pain) RF: 0 diphenhydramine HCl 12.5 mg/5 mL elixir 25 mg PO Q6 PRN (Reason: Itching) RF: 0 metformin 500 mg tablet extended release 24 hr 500 mg PO BID RF: 0 valsartan 320 mg Tablet 320 mg PO DAILY RF: 0 Spiriva Respimat 2.5 mcg/actuation Mist 2 puff INHALATION DAILY RF: 0 hydralazine 50 mg tablet 50 mg PO BID RF: 0 gabapentin 300 mg Tablet Extended Release 24 Hr 300 mg PO TID RF: 0 hydrochlorothiazide 12.5 mg Tablet 12.5 mg PO DAILY RF: 0 meclizine 12.5 mg Tablet 12.5 mg PO DIRECTED PRN (Reason: Dizziness) RF: 0 permethrin [Elimite] 5 % cream 1 appln TOP NOW Qty: 120 RF: 0 amoxicillin 500 mg tablet 500 mg PO TID Qty: 30 RF: 0
[2019-05-04 11:51] LABS: Basophils # (auto) 0.02 K/uL (0-0.2); Basophils % (auto) 0.4 %; Eosinophils # (auto) 0.01 K/uL (0-0.5); Eosinophils % (auto) 0.2 %; Hematocrit (blood only) 35.8 % (37-47); Hemoglobin 12.9 g/dL (12.0-16.0); Immature Granulocytes # (auto) 0.01 K/uL (0.00-0.02); Immature Granulocytes % (auto) 0.2 %; Lymphocytes % (auto) 24.6 %; Mean Corpuscular Hemoglobin 35.5 pg (25-34); Mean Corpuscular Volume 98.6 fL (80-100); Mean Platelet Volume 9.6 fL (7.4-10.4); Monocytes # (auto) 0.31 K/uL (0.11-0.59); Monocytes % (auto) 5.9 %; Neutrophils # (auto) 3.64 K/uL (1.4-6.5); Neutrophils % (auto) 68.7 %; Platelet Count 190 K/uL (130-400); RDW Coefficient of Variation 12.2 % (11.5-14.5); RDW Standard Deviation 43.6 fL (36.4-46.3); Red Blood Count 3.63 M/uL (4.2-5.4); White Blood Count 5.29 K/uL (4.8-10.8)
[2019-05-04 12:12] LABS: BUN Creatinine Ratio 5.1 (10-20); Calcium 8.7 mg/dl (8.5-10.1); Creatinine Clr Calc Pharmacy 114.8 ml/min; Est GFR (African American) 115.5; Est GFR (Non-African American) 99.7; Potassium 3.7 mmol/L (3.5-5.1)
[2019-05-04 12:20] LABS: Acetaminophen < 2 ug/ml (10-30)
[2019-05-04 12:21] LABS: Salicylate < 1.7 mg/dl (2.8-20)
[2019-05-04 12:22] LABS: Albumin Globulin Ratio 0.6 (0.9-2); Bilirubin,Total 0.9 mg/dl (0.2-1); Globulin 4.8 gm/dl (2.5-4.0); Thyroid Stimulating Hormone 1.14 uIu/ml (0.300-4.500); Total Protein 7.8 gm/dl (6.4-8.2)
--- NOTE | 2019-05-04 13:24 | XRay Report ---
XR chest 1V portable CLINICAL HISTORY: Pt c/o hyponatermia COMPARISON STUDY: 01/01/2019 FINDINGS: The bones soft tissues and hemidiaphragms are normal. The cardiomediastinal silhouette is n ormal. The lungs are clear. The pulmonary vasculature is normal. IMPRESSION: Negative chest. The above report was generated using voice recognition software. It may contain grammatical, syntax or spelling errors. Electronically signed by: Bunny Beck M.D. 05/04/2019 1:23 PM
--- NOTE | 2019-05-04 13:37 | CT Scan Report ---
CT head/brain wo con CLINICAL HISTORY: 53 years-old Female with Pt c/o AMS. Acutely altered mental status TECHNIQUE: Multiple axial CT images of the head were obtained without contrast. A dose lowering tech nique was utilized adhering to the principles of ALARA. CT DOSE: 788.63 mGycm COMPARISON: Head CT 12/17/2018. FINDINGS: No acute intracranial hemorrhage, midline shift, intracranial mass, hydrocephalus, territorial ischem ia or abnormal extra-axial collection.. Minimal white matter hypodensities may reflect chronic microv ascular ischemic disease. The calvarium is intact. The paranasal sinuses, mastoid air cells, and middle ear cavities are clear . IMPRESSION: No acute intracranial abnormality. The above report was generated using voice recognition software. It may contain grammatical, syntax o r spelling errors. Electronically signed by: Lake Harrell M.D. 05/04/2019 1:36 PM
--- NOTE | 2019-05-04 14:50 | History & Physical Report ---
Date of Service May 04, 2019 Assessment & Plan (1) Hyponatremia: This is a 53-year-old female with a PMH of schizoaffective disorder, anxiety, DM II, paroxysmal A. fib, formerly on Eliquis, hypertension, polysubstance use (alcohol, cocaine, tobacco) and other medical problems listed below who presents from home due to feeling unsafe and was found to have hyponatremia. -Hemodynamically stable -Poor historian but no AMS, CT head without acute abnormalities -Initial sodium of 122, baseline Na low-mid 130s in setting of chronic alcohol use -Endorses constant fluid intake, poor diet -Serum and urine osm pending -Holding hydrochlorothiazide -Monitor with daily BMP (2) Bilateral lower extremity edema: R>L BLE edema, non-tender -Recently stopped taking Eliquis 1 month ago -Bilateral venous doppler pending (3) Atrial fibrillation: Continue diltiazem -Patient recently stopped taking Eliquis due to "feeling like she was on it too long" (4) HTN (hypertension): Normotensive. Continue hydralazine and valsartan. Holding hydrochlorothiazide in setting of hyponatremia (5) COPD (chronic obstructive pulmonary disease): At baseline. Continue home inhalers (6) DM type 2 (diabetes mellitus, type 2): A1c of 7 in August 2018. Repeat ordered -Hold home agents -SSI while in-patient -BSG AC HS (7) Alcohol use disorder: (8) Cocaine abuse: Denies use in the past few months -Utox pending (9) Tobacco use disorder: Cessation recommended DVT Ppx: SQ Lovenox Code status: FULL PCP: Eileen Dispo: Admitted to [facility]. Discharge planning ordered. Patient seen in collaboration with Dr. Caldwell. Please see addendum. History of Present Illness Chief Complaint: mental evaluation Primary Care Provider: NO PCP This is a 53-year-old female with a PMH of schizoaffective disorder, anxiety, DM II, paroxysmal A. fib, formerly on Eliquis, hypertension, polysubstance use (alcohol, cocaine, tobacco) and other medical problems listed below who presents from home due to feeling unsafe. Patient denies having any physical pain or symptoms this morning but is a poor historian. Difficult to obtain more of a recent social history besides the fact that she did not feel safe at home and someone told her to come to hospital. Has noted lower extremity swelling over the past few days but denies any pain in legs. Formerly on Eliquis for paroxysmal A. fib but patient decided to stop taking it a month ago because she is "been on it too long". States that she has been drinking a lot of fluids and not eating much due to pain and difficulty with swallowing. Last alcoholic beverage was wine yesterday afternoon. Denies any recent cocaine or methamphetamine use. Smokes 1 to 2 packs/day of cigarettes. Currently endorses feeling anxious. Denies any fever, chills, lightheadedness, chest pain, shortness of breath, abdominal pain, dysuria, diarrhea or constipation. During interview, becomes distracted by figures outside the room. Denies any auditory or visual hallucinations. Denies suicidal ideation. Allergies Allergy/AdvReac Type Severity Reaction Status Date / Time haloperidol Allergy Severe TONGUE Verified 05/04/19 13:54 SWELLING insulin lispro Allergy Intermediate HIVES Verified 05/04/19 13:54 phenol Allergy Intermediate HIVES Verified 05/04/19 13:54 citalopram Allergy Mild ITCHING Verified 05/04/19 13:54 sulfamethoxazole Allergy Mild RASH Verified 05/04/19 13:54 trimethoprim Allergy Mild RASH Verified 05/04/19 13:54 Bactrim Allergy Unknown RASH Verified 12/01/17 16:09 Penicillins Allergy Unknown UNKNOWN Verified 05/04/19 13:54 topiramate AdvReac Severe SEIZURE Verified 05/04/19 13:54 LIKE ACTIVITY morphine AdvReac Mild HEADACHE Verified 05/04/19 13:54 oxycodone AdvReac Mild ITCH Verified 05/04/19 13:54 Margarine Allergy Severe RASH Uncoded 05/04/19 13:54 Home Medications Home Medications Medication Instructions Recorded Confirmed Type albuterol sulfate 2.5 mg INHALATION Q4 PRN 07/05/18 05/04/19 History omeprazole 20 mg PO DAILY 07/05/18 05/04/19 History trazodone 200 mg PO HS PRN 07/05/18 05/04/19 History valacyclovir 500 mg PO QAM 07/05/18 05/04/19 History lactulose [Constulose] 30 ml PO DAILY PRN 09/29/18 05/04/19 History thiamine HCl (vitamin B1) [Vitamin 100 mg PO QAM #30 tab 10/13/18 05/04/19 Rx B-1] hydrochlorothiazide 12.5 mg PO DAILY 11/08/18 05/04/19 History diltiazem HCl [Cartia XT] 300 mg PO DAILY 12/01/18 05/04/19 History insulin lispro [Admelog SoloStar 15 - 18 unit SUBCUT TIDM 12/01/18 05/04/19 History U-100 Insulin] diphenhydramine HCl 25 mg PO Q6 PRN 12/21/18 05/04/19 History hydralazine 50 mg PO BID 01/01/19 05/04/19 History valsartan 320 mg PO DAILY 01/01/19 05/04/19 History ipratropium-albuterol [Combivent 1 puff INHALATION BID 05/04/19 05/04/19 History Respimat] Past Med/Surg History Medical History DM type 2 (diabetes mellitus, type 2) (Chronic) Tobacco use disorder (Chronic) History of opioid abuse (Chronic) Cocaine abuse (Chronic) Hx of suicide attempt (Resolved) COPD (chronic obstructive pulmonary disease) (Chronic) Fatty liver (Chronic) Elevated troponin (Chronic) Obesity (Chronic) HTN (hypertension) (Chronic) Sleep apnea (Chronic) Neuropathy (Chronic) Sciatic nerve disease (Chronic) Atrial fibrillation (Chronic) Epistaxis, recurrent (Chronic) Chronic generalized pain disorder (Chronic) Alcohol induced acute pancreatitis (Resolved) Alcohol use disorder (Chronic) COPD with exacerbation (Inactive) EtOH dependence (Inactive) Non-sustained ventricular tachycardia (Inactive) Surgical History H/O ovarian cystectomy (Resolved) H/O foot surgery (Resolved) Family History Other Heart disease Kidney disease Social History Preferred Language: Maldivian Communication Ability: Effective Visual Impairment: No Limitations Software Product Manager Required: No Beliefs That Will Affect Care: None marital status: Single Current Living Situation: Family Current Living Situation Comment: lives with brother current occupational status: unemployed and disabled Feels Safe at Home: Yes Smoking Status: Current every day smoker Tobacco Type: cigarettes ; Cigarettes Per Day: 15-30 ; Second Hand Exposure: Yes ; Hx Alcohol Use: Yes Alcohol type: wine and hard liquor Hx Substance Use: No Review of Systems Review of Systems: At least ten systems reviewed and negative except as noted in the HPI. Physical Exam Physical Exam: General Appearance: WD/WN, vitals as above, NAD, sitting in chair with sitter in room. + anxious Head: normocephalic, atraumatic Eyes: normal inspection, PERRL, conjunctivae normal, anicteric sclerae ENT: external ear and nose normal, oropharynx normal Neck: trachea midline, no thyromegaly normal visual inspection Respiratory: normal respiratory effort, scattered wheezing, no rales or rhonchi. Normal insp/exp effort, no accessory muscle use Cardiovascular: tachycardic, regular rhythm, no murmur appreciated, normal peripheral pulses, BLE edema R>L. Vessels: no JVD or carotid bruit Chest: normal inspection of chest Abdomen/GI: normal bowel sounds, soft, nontender, no hepatosplenomegaly Extremities/Musculoskelatal: no cyanosis or clubbing, extremities motor strength 5/5 Neurologic: PERRL, EOMI, accommodation nl, no face palsy, no dysarthria CN's II-XI intact bilaterally and moves all extremities Psychiatric: A+Ox3, easily distracted during exam. Anxious Skin: no rashes, normal color, warm/dry Results & Data Vital Signs (Past 12 Hours) Vital Signs Temp Pulse Resp BP Pulse Ox 05/04/19 10:30 36.8 C 113 H 18 139/89 97 Laboratory Results Short CBC 05/04/19 Range/Units 11:39 WBC 5.29 (4.8-10.8) K/uL Hgb 12.9 (12.0-16.0) g/dL Hct 35.8 L (37-47) % Plt Count 190 (130-400) K/uL BMP 05/04/19 11:39 Sodium 122 L Potassium 3.7 Chloride 87 L Carbon Dioxide 25 BUN 3 L Creatinine 0.67 Glucose 149 H Calcium 8.7 Liver Function 05/04/19 Range/Units 11:39 Total Bilirubin 0.9 (0.2-1) mg/dl AST 88 H (15-37) U/L ALT 47 (12-78) U/L Alkaline Phosphatase 252 H (45-117) U/L Albumin 3.0 L (3.4-5.0) gm/dl Urine 05/04/19 Range/Units 15:35 Urine Color Dark Yellow Urine Appearance Cloudy A (Clear) Urine pH 5.0 (4.5-7.5) Ur Specific [place] 1.014 (1.000-1.030) Urine Protein Trace H (Negative) Urine Glucose (UA) Negative (Negative) Diagnostic Findings CT head: IMPRESSION: No acute intracranial abnormality. CXR: IMPRESSION: Negative chest. Supervising Physician Co-Signing Physician Notes I, Dr. Hardy Caldwell, have seen and examined the patient with physician assistant service manager and would like to comment that Rebeca Judge is patient with social and mental health history as described by physician assistant service manager who presents to the ED after feeling unsafe at home and reports that people have been breaking into her house. Patients labs are remarkable for Hypotonic Hyponatremia with serum sodium of 122. She reports she drinks multiple servings of liquids every day to prevent dehydration. She also reports poor appetite because when she eats different foods, she would feel pain of her stomach. Patient agrees to plans for fluid restriction and soft diet. Will need serial serum sodium labs Patient also reports history of pulmonary embolism 2 years ago was on Eliquis in the past. However she stopped taking Eliquis for unclear duration of time. Because right leg is greater than left leg in size, will follow ultrasound of lower extremities Because of history of substance abuse and also tachycardia, will monitor on telemetry and alcohol withdrawal protocol Agree with other assessment and plans as documented by physician assistant service manager On Physical Exam General: no acute distress Psych: cooperative but sometimes easily distracted by surroundings when medical staff walk past her room Lungs: clear to auscultation bilaterally Heart: mild tachycardia Abdomen: no acute pain on palpation, positive bowel sounds, soft Extremities: bilateral lower extremity edema with right leg more swollen than left leg My colleague Dr. Durant will be following the patient as hospitalist starting on 05/05/19
[2019-05-04 15:47] LABS: Appearance Urine Cloudy (Clear); Bacteria Urine Automated 1+ (Negative); Blood Urine Negative (Negative); Color Urine Dark Yellow; Epithelial Cell Urine Auto >30 /lpf (0-5); Glucose Urine UA Negative (Negative); Ketones Urine Trace (Negative); Leukocyte Esterase Urine Trace (Negative); Nitrite Urine Negative (Negative); Protein Urine Trace (Negative); RBC Urine Automated 0-4 /hpf (0-4); Specific Gravity Urine 1.014 (1.000-1.030); Urobilinogen Urine Negative (Negative)
[2019-05-04 15:48] LABS: Bilirubin Urine 1+ (Negative)
[2019-05-04 15:49] LABS: Ictotest Urine Positive (Negative)
[2019-05-04 16:15] LABS: Amphetamines+Metham, Urine Neg (Neg); Barbiturates, Urine Neg (Neg); Benzodiazepine, Urine Neg (Neg); Cocaine, Urine Neg (Neg); MDMA (Ecstacy), Urine Neg (Neg); Methadone, Urine Neg (Neg); Opiate, Urine Neg (Neg); Phencyclidine, Urine Neg (Neg)
[2019-05-04] MEDS ORDERED: TRAZODONE HCL 100 MG TAB PO PRN (17:31)
[2019-05-04] MEDS ORDERED: ALBUTEROL 0.083% NEBU SOLN 3 ML VIAL INH PRN (17:31)
[2019-05-04] MEDS ORDERED: ACETAMINOPHEN 325 MG TAB PO PRN (17:31)
[2019-05-04] MEDS ORDERED: LORazepam 1 MG/2 ML VIAL IV PRN (17:31)
[2019-05-04] MEDS ORDERED: LACTULOSE SYRUP 20 GM/30 ML UDC PO PRN (17:56)
[2019-05-04 19:34] LABS: Calcium 8.9 mg/dl (8.5-10.1); Creatinine Clr Calc Pharmacy 84.8 ml/min; Est GFR (Non-African American) 72.5; Potassium 4.2 mmol/L (3.5-5.1)
--- NOTE | 2019-05-04 20:50 | Psychiatric Progress Note ---
Date of Service May 04, 2019 Impression / Recommendations Impression long hx of cocaine and ETOH abuse, urine tox negative. Last inpatient stay in November, restarted Trilafon, not on current med list so likely non-compliant due to multiple discharges or firing of various practices. Well established diagnosis of schizoaffective disorder and now with significant hyponatremia 124 on last check. I am generally hesitant to give Rebeca benzos as she is drug seeking but feel that if requires medication for acute management of agitation, at least until reevaluated in am that Ativan 2 mg IM most appropriate. I'm hesitant to give prn antipsychotic given low sodium and hx of allergy to Haldol. Thorazine effective but generally effects gate. Trilafon oral only but can contribute to low sodium. 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 Labs reviewed and current med list as patient reportedly agitated, attempting to call 911 repeatedly. Nursing staff with good rapport to visit patient momentarily. Physical Exam Vital Signs (Past 24 Hours) Last Vital Signs Temp 37.1 C 05/04/19 17:44 Pulse 93 H 05/04/19 17:05 Resp 20 05/04/19 17:44 BP 131/98 05/04/19 17:44 Pulse Ox 92 05/04/19 17:44 Results & Data Laboratory Results Laboratory Results - last 24 hr 05/04/19 05/04/19 05/04/19 11:39 11:39 11:39 WBC 5.29 RBC 3.63 L Hgb 12.9 Hct 35.8 L MCV 98.6 MCH 35.5 H MCHC 36.0 RDW Std Deviation 43.6 RDW Coeff of Ally 12.2 Plt Count 190 MPV 9.6 Immature Gran % (Auto) 0.2 Neut % (Auto) 68.7 Lymph % (Auto) 24.6 Bullock % (Auto) 5.9 Eos % (Auto) 0.2 Baso % (Auto) 0.4 Immature Gran # (Auto) 0.01 Neut # (Auto) 3.64 Lymph # (Auto) 1.30 Bullock # (Auto) 0.31 Eos # (Auto) 0.01 Baso # (Auto) 0.02 Sodium 122 L Potassium 3.7 Chloride 87 L Carbon Dioxide 25 Anion Gap 10.0 BUN 3 L Creatinine 0.67 Est Cr Clr Drug Dosing 114.8 Est GFR ( Amer) 115.5 Est GFR (Non-Af Amer) 99.7 BUN/Creatinine Ratio 5.1 L Glucose 149 H Osmolality Calcium 8.7 Total Bilirubin 0.9 AST 88 H ALT 47 Alkaline Phosphatase 252 H Total Protein 7.8 Albumin 3.0 L Globulin 4.8 H Albumin/Globulin Ratio 0.6 L Folate TSH 1.140 Urine Color Urine Appearance Urine pH Ur Specific [place] Urine Protein Urine Glucose (UA) Urine Ketones Urine Blood Urine Nitrite Urine Bilirubin Urine Urobilinogen Ur Leukocyte Esterase Urine WBC (Auto) Urine RBC (Auto) U Hyaline Cast (Auto) U Epithel Cells (Auto) Urine Bacteria (Auto) Urine Osmolality Salicylates < 1.7 L Urine Opiates Screen Ur Methadone, Qual Acetaminophen < 2 L Urine Barbiturates Ur Phencyclidine (PCP) U Amphetamin/Meth Scrn MDMA (Ecstasy) Screen U Benzodiazepines Scrn Ur Cocaine Metabolite U Marijuana (THC) Screen Ethyl Alcohol mg/dL 05/04/19 05/04/19 05/04/19 11:39 11:39 15:35 WBC RBC Hgb Hct MCV MCH MCHC RDW Std Deviation RDW Coeff of Ally Plt Count MPV Immature Gran % (Auto) Neut % (Auto) Lymph % (Auto) Bullock % (Auto) Eos % (Auto) Baso % (Auto) Immature Gran # (Auto) Neut # (Auto) Lymph # (Auto) Bullock # (Auto) Eos # (Auto) Baso # (Auto) Sodium Potassium Chloride Carbon Dioxide Anion Gap BUN Creatinine Est Cr Clr Drug Dosing Est GFR ( Amer) Est GFR (Non-Af Amer) BUN/Creatinine Ratio Glucose Osmolality 259 L Calcium Total Bilirubin AST ALT Alkaline Phosphatase Total Protein Albumin Globulin Albumin/Globulin Ratio Folate TSH Urine Color Urine Appearance Urine pH Ur Specific [place] Urine Protein Urine Glucose (UA) Urine Ketones Urine Blood Urine Nitrite Urine Bilirubin Urine Urobilinogen Ur Leukocyte Esterase Urine WBC (Auto) Urine RBC (Auto) U Hyaline Cast (Auto) U Epithel Cells (Auto) Urine Bacteria (Auto) Urine Osmolality Salicylates Urine Opiates Screen Neg Ur Methadone, Qual Neg Acetaminophen Urine Barbiturates Neg Ur Phencyclidine (PCP) Neg U Amphetamin/Meth Scrn Neg MDMA (Ecstasy) Screen Neg U Benzodiazepines Scrn Neg Ur Cocaine Metabolite Neg U Marijuana (THC) Screen Neg Ethyl Alcohol mg/dL < 3.0 05/04/19 05/04/19 05/04/19 15:35 15:35 18:59 WBC RBC Hgb Hct MCV MCH MCHC RDW Std Deviation RDW Coeff of Ally Plt Count MPV Immature Gran % (Auto) Neut % (Auto) Lymph % (Auto) [place] % (Auto) Eos % (Auto) Baso % (Auto) Immature Gran # (Auto) Neut # (Auto) Lymph # (Auto) [place] # (Auto) Eos # (Auto) Baso # (Auto) Sodium Potassium Chloride Carbon Dioxide Anion Gap BUN Creatinine Est Cr Clr Drug Dosing Est GFR ( Amer) Est GFR (Non-Af Amer) BUN/Creatinine Ratio Glucose Osmolality Calcium Total Bilirubin AST ALT Alkaline Phosphatase Total Protein Albumin Globulin Albumin/Globulin Ratio Folate 14.15 TSH Urine Color Dark Yellow Urine Appearance Cloudy A Urine pH 5.0 Ur Specific [place] 1.014 Urine Protein Trace H Urine Glucose (UA) Negative Urine Ketones Trace H Urine Blood Negative Urine Nitrite Negative Urine Bilirubin 1+ H Urine Urobilinogen Negative Ur Leukocyte Esterase Trace H Urine WBC (Auto) 1-5 Urine RBC (Auto) 0-4 U Hyaline Cast (Auto) 5-10 H U Epithel Cells (Auto) >30 H Urine Bacteria (Auto) 1+ H Urine Osmolality 265 L Salicylates Urine Opiates Screen Ur Methadone, Qual Acetaminophen Urine Barbiturates Ur Phencyclidine (PCP) U Amphetamin/Meth Scrn MDMA (Ecstasy) Screen U Benzodiazepines Scrn Ur Cocaine Metabolite U Marijuana (THC) Screen Ethyl Alcohol mg/dL 05/04/19 18:59 WBC RBC Hgb Hct MCV MCH MCHC RDW Std Deviation RDW Coeff of Ally Plt Count MPV Immature Gran % (Auto) Neut % (Auto) Lymph % (Auto) [place] % (Auto) Eos % (Auto) Baso % (Auto) Immature Gran # (Auto) Neut # (Auto) Lymph # (Auto) [place] # (Auto) Eos # (Auto) Baso # (Auto) Sodium 124 L Potassium 4.2 Chloride 89 L Carbon Dioxide 25 Anion Gap 10.0 BUN 5 L Creatinine 0.90 Est Cr Clr Drug Dosing 84.8 Est GFR ( Amer) 84.0 Est GFR (Non-Af Amer) 72.5 BUN/Creatinine Ratio 5.0 L Glucose 141 H Osmolality Calcium 8.9 Total Bilirubin AST ALT Alkaline Phosphatase Total Protein Albumin Globulin Albumin/Globulin Ratio Folate TSH Urine Color Urine Appearance Urine pH Ur Specific [place] Urine Protein Urine Glucose (UA) Urine Ketones Urine Blood Urine Nitrite Urine Bilirubin Urine Urobilinogen Ur Leukocyte Esterase Urine WBC (Auto) Urine RBC (Auto) U Hyaline Cast (Auto) U Epithel Cells (Auto) Urine Bacteria (Auto) Urine Osmolality Salicylates Urine Opiates Screen Ur Methadone, Qual Acetaminophen Urine Barbiturates Ur Phencyclidine (PCP) U Amphetamin/Meth Scrn MDMA (Ecstasy) Screen U Benzodiazepines Scrn Ur Cocaine Metabolite U Marijuana (THC) Screen Ethyl Alcohol mg/dL Current Inpatient Medications Current Inpatient Medications: Current Inpatient Medications Acetaminophen (Tylenol) 650 mg PO Q4H PRN PRN Reason: Pain or Fever Stop: 06/03/19 17:30 Albuterol (Ventolin 0.083% 2.5mg/3ml) 2.5 mg INH Q4 PRN PRN Reason: Shortness Of Breath Or Wheezing Stop: 06/03/19 17:30 Albuterol (Combivent Respimat) 1 puffs INH BID CARLOS Stop: 06/03/19 20:59 Diltiazem HCl (Cardizem Cd) 300 mg PO DAILY CARLOS Stop: 06/04/19 08:59 Diphenhydramine HCl (Benadryl Capsule) 25 mg PO Q6 PRN PRN Reason: Itching Stop: 06/03/19 17:30 Folic Acid (Folvite) 1 mg PO QAM CARLOS Stop: 06/04/19 08:59 Hydralazine HCl (Apresoline) 50 mg PO BID CARLOS Stop: 06/03/19 20:59 Lorazepam (Ativan) 1 mg in 2 mls @ 2 mls/min IV ONE PRN; Protocol PRN Reason: EtoH Withdrawal AWSS 6-10 Stop: 06/03/19 17:30 Lactulose (Chronulac) 20 gm PO DAILY PRN PRN Reason: Constipation Stop: 06/03/19 17:55 Pantoprazole Sodium (Protonix) 40 mg PO DAILY [facility] Stop: 06/04/19 08:59 Thiamine HCl (Vitamin B-1) 100 mg PO QAM CARLOS Stop: 06/04/19 08:59 Trazodone HCl (Desyrel) 200 mg PO HS PRN PRN Reason: Sleep Stop: 06/03/19 17:30 [facility]acyclovir [facility] ([facility]rex) [facility] Stop: 06/04/19 08:59 Valsartan (Diovan) 320 mg PO DAILY [facility] Stop: 06/04/19 08:59
[2019-05-04] MEDS: PANTOprazole 40 MG TAB PO STA ×2 (22:09→22:44)
[2019-05-04] MEDS: IPRATROPIUM BROMIDE/ALBUTEROL respimat INH INH SCH (22:09)
[2019-05-04] MEDS: HydrALAZINE TAB 50 MG TAB PO SCH (22:09)
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
--- NOTE | 2019-05-05 10:15 | Nephrology Consultation ---
Date of Consultation May 05, 2019 Assessment & Plan (1) Hyponatremia: chronic (eg > 48 hrs duration) asymptomatic hypotonic hyponatremia w/ unclear volume status. I attempted twice to evaluate her but she declines direct evaluation; will follow peripherally for now and attempt to evaluate again in person tomorrow. Dr Durant aware. acutely worsened hyponatremia may be from hctz, from low solute diet; less likely from vol OL related to potential HF or liver failure -repeat urine osms, get urine Na >> to be collected as of this pm -cont to hold hctz -repeat bmp w/ labs below noon ordered; further labs to depend on result >> ideally recommend bmp 2000; otherwise if she cont to refuse, defer to AM labs -goal sNa for this evening is 128 >> sNa midday is 125, correcting appropriately -pt on fluid limit 1L daily >> liberalize to 1.2 L and follow -for now no sodium limits -offer protein shakes BID >> pls contact dietary about this -STRICT I/O needed Present on Admission?: Yes (2) Bilateral lower extremity edema: LE dopplers pending - suspect pt refusing procedure Differential is broad >> VTE, HF, liver failure Tachycardia and perhaps relative hypotension noted Present on Admission?: Yes (3) Alcohol use disorder: albumin 3 >> may meet malnutrition criteria; defer to primary service to evaluate -will check mag, phos, iCa w/ next labs >> mag low, iCa low; pt refusing IV mag; could try po though not taking pills reliably either -defer to primary service to monitor for/treat EtOH withdrawal Present on Admission?: Yes History of Present Illness Reason for Consultation: hyponatremia Requesting Physician: Dr Caldwell Attending Physician: Viktor Durant MD History of Present Illness 53 y/o F w/ EtOH dependence, schizoaffective disorder, anxiety admitted yesterday w/ hyponatremia for which I am asked to evaluate her. PMH also includes chronic hyponatremia w/ sNa low 130s, DM on insulin, paroxysmal a fib not on AC, HTN, COPD, RATLIFF, polysubstance abuse (EtOH, cocaine, opioids, tobacco currently 1-2 PPD), hx suicide attempt. Her presenting sNa was 122, K 3.7, creatinine 0.7. Cloudy concentrated urine w/o infection. Plan at admission was simply to hold hctz and observe while other w/u such as osms and LE dopplers pending: she has sNa 124 this am. Her serum osms were 250; her urine osms 265. She presented b/c felt unsafe at home; also endorsed increasing LE edema x a few days w/o other sx of vol OL. Did state she'd been drinking more fluids than usual [employer] w/ less po d/t problems swallowing. Her last EtOH was 24 hrs before pr esenting to ER. No alarm sx at presentation such as altered mental status, concern for seizures. HTN managed w/ hctz, diltiazem, hydralazine, valsartan as OP; however, I note that per report pt a poor historian and that psychiatry evaluated her and has little sense of what meds she is taking. Went by to evaluate to shortly after 10 this am: at that time she was refusing labs or examination /interview by any other than psychiatry. checked back w/ nursing staff for update on pt this afternoon >> she is refusing all medications; refusing IV site; cont to refuse interview/exams Allergies Allergy/AdvReac Type Severity Reaction Status Date / Time haloperidol Allergy Severe TONGUE Verified 05/04/19 13:54 SWELLING insulin lispro Allergy Intermediate HIVES Verified 05/04/19 13:54 phenol Allergy Intermediate HIVES Verified 05/04/19 13:54 citalopram Allergy Mild ITCHING Verified 05/04/19 13:54 sulfamethoxazole Allergy Mild RASH Verified 05/04/19 13:54 trimethoprim Allergy Mild RASH Verified 05/04/19 13:54 Bactrim Allergy Unknown RASH Verified 12/01/17 16:09 Penicillins Allergy Unknown UNKNOWN Verified 05/04/19 13:54 topiramate AdvReac Severe SEIZURE Verified 05/04/19 13:54 LIKE ACTIVITY morphine AdvReac Mild HEADACHE Verified 05/04/19 13:54 oxycodone AdvReac Mild ITCH Verified 05/04/19 13:54 Margarine Allergy Severe RASH Uncoded 05/04/19 13:54 Home Medications Home Medications Medication Instructions Recorded Confirmed Type albuterol sulfate 2.5 mg INHALATION Q4 PRN 07/05/18 05/04/19 History omeprazole 20 mg PO DAILY 07/05/18 05/04/19 History trazodone 200 mg PO HS PRN 07/05/18 05/04/19 History valacyclovir 500 mg PO QAM 07/05/18 05/04/19 History lactulose [Constulose] 30 ml PO DAILY PRN 09/29/18 05/04/19 History thiamine HCl (vitamin B1) [Vitamin 100 mg PO QAM #30 tab 10/13/18 05/04/19 Rx B-1] hydrochlorothiazide 12.5 mg PO DAILY 11/08/18 05/04/19 History diltiazem HCl [Cartia XT] 300 mg PO DAILY 12/01/18 05/04/19 History insulin lispro [Admelog SoloStar 15 - 18 unit SUBCUT TIDM 12/01/18 05/04/19 History U-100 Insulin] diphenhydramine HCl 25 mg PO Q6 PRN 12/21/18 05/04/19 History hydralazine 50 mg PO BID 01/01/19 05/04/19 History valsartan 320 mg PO DAILY 01/01/19 05/04/19 History ipratropium-albuterol [Combivent 1 puff INHALATION BID 05/04/19 05/04/19 History Respimat] Patient History Medical History DM type 2 (diabetes mellitus, type 2) (Chronic) Tobacco use disorder (Chronic) History of opioid abuse (Chronic) Cocaine abuse (Chronic) Hx of suicide attempt (Resolved) COPD (chronic obstructive pulmonary disease) (Chronic) Fatty liver (Chronic) Elevated troponin (Chronic) Obesity (Chronic) HTN (hypertension) (Chronic) Sleep apnea (Chronic) Neuropathy (Chronic) Sciatic nerve disease (Chronic) Atrial fibrillation (Chronic) Epistaxis, recurrent (Chronic) Chronic generalized pain disorder (Chronic) Alcohol induced acute pancreatitis (Resolved) Alcohol use disorder (Chronic) COPD with exacerbation (Inactive) EtOH dependence (Inactive) Non-sustained ventricular tachycardia (Inactive) Surgical History H/O ovarian cystectomy (Resolved) H/O foot surgery (Resolved) Family History Other Heart disease Kidney disease Social History Preferred Language: Portuguese Communication Ability: Impaired Visual Impairment: No Limitations Pulp Bleacher Required: No Beliefs That Will Affect Care: None marital status: Single Current Living Situation: Family Current Living Situation Comment: lives with brother current occupational status: unemployed and disabled Other Information That Helps Us Care for You: No Feels Safe at Home: Yes Smoking Status: Current every day smoker Tobacco Type: cigarettes ; Cigarettes Per Day: 15-30 ; Second Hand Exposure: Yes ; Hx Alcohol Use: Yes Alcohol type: wine and hard liquor Hx Substance Use: No Review of Systems Review of Systems: Other (pt refuses interview/exam) Physical Exam Physical Exam: pt refuses interview/exam Results & Data Vital Signs (Past 12 Hours) Vital Signs Temp Pulse Pulse Resp BP Pulse Ox 05/05/19 00:56 104 H 05/04/19 23:56 37.1 C 104 H 20 102/66 93 Laboratory Results 05/04/19 11:39 05/04/19 18:59 Diagnostic Findings cxr no acute cp process CT head no acute ic abnormality
[2019-05-05] MEDS ORDERED: POTASSIUM CHLORIDE PWD 20 MEQ PACK PO ONE (10:19)
[2019-05-05] MEDS: IPRATROPIUM BROMIDE/ALBUTEROL respimat INH INH SCH ×2 (10:38→21:06)
[2019-05-05] MEDS: HydrALAZINE TAB 50 MG TAB PO SCH ×2 (10:38→21:04)
[2019-05-05] MEDS: dilTIAZem HCL 300 MG CAPCR PO SCH (10:38)
[2019-05-05] MEDS: VALSARTAN 80 MG TAB PO SCH (10:38)
[2019-05-05] MEDS: THIAMINE HCL 100 MG TAB PO SCH (10:39)
[2019-05-05] MEDS: PANTOprazole 40 MG TAB PO SCH (10:39)
[2019-05-05] MEDS: FOLIC ACID 1 MG TAB PO SCH (10:39)
[2019-05-05] MEDS: VALACYCLOVIR HCL 500 MG TABLET PO SCH (10:39)
[2019-05-05 11:55] LABS: Hematocrit (blood only) 33.7 % (37-47); Mean Corpuscular Hgb Conc 35.6 g/dL (32-36); Mean Corpuscular Volume 98.3 fL (80-100); Mean Platelet Volume 9.4 fL (7.4-10.4); Platelet Count 193 K/uL (130-400); RDW Coefficient of Variation 12.2 % (11.5-14.5); RDW Standard Deviation 43.2 fL (36.4-46.3); Red Blood Count 3.43 M/uL (4.2-5.4); White Blood Count 5.93 K/uL (4.8-10.8)
[2019-05-05 12:11] LABS: BUN Creatinine Ratio 7.2 (10-20); Calcium 8.7 mg/dl (8.5-10.1); Creatinine Clr Calc Pharmacy 70.7 ml/min; Est GFR (African American) 67.4; Est GFR (Non-African American) 58.2; Magnesium 1.4 mg/dl (1.8-2.4); Potassium 3.8 mmol/L (3.5-5.1)
[2019-05-05] MEDS: PERPHENAZINE 2 MG TABLET PO SCH ×3 (14:23→21:07)
[2019-05-05] MEDS: MAGNESIUM SULFATE / D5W 1 GM/100 ML BAG IV SCH (15:18)
--- NOTE | 2019-05-05 16:46 | Hospitalist Progress Note ---
Date of Service May 05, 2019 Assessment & Plan (1) Hyponatremia: Patient is a 53-year-old female with H/O schizoaffective disorder, anxiety, DM II, paroxysmal A. fib, formerly on Eliquis, hypertension, polysubstance use (alcohol, cocaine, tobacco) and other medical problems listed below who presents from home due to feeling unsafe and was found to have hyponatremia. Hyponatremia Poor historian CT head without acute abnormalities Serum osmolality 259 Urine osmolality 265 Urine sodium pending Sodium levels: 122>>124>>>125 No change in mental status Volume status difficult to assess, as patient refused physical exam DD: likely due to diuretics, polydipsia, chronic alcohol use Hold diuretics Liberalize salt, continue fluid restriction 1.2 L/day Monitor sodium levels Appreciate nephrology input Hypomagnesemia Magnesium levels 1.4 Refused magnesium supplements (2) Bilateral lower extremity edema: R>L BLE edema, non-tender Recently stopped taking Eliquis 1 month ago Refused to get Doppler studies Schizoaffective disorder Unsure of medication complaints Denies homicidal/suicidal thoughts Restarted perphenazine 4 mg twice daily Appreciate psychiatry input Would likely benefit from inpatient mental health placement 1:1 for now (3) Atrial fibrillation: Was on diltiazem Patient recently stopped taking Eliquis due to "feeling like she was on it too long" Currently refusing meds (4) HTN (hypertension): Blood pressure stable Continue hydralazine, valsartan if patient agrees Hold hydrochlorothiazide secondary to hyponatremia (5) COPD (chronic obstructive pulmonary disease): Continue home inhalers as able (6) DM type 2 (diabetes mellitus, type 2): A1c of 7 in August 2018. Repeat ordered Hold home agents SSI while in-patient Monitor BGs (7) Alcohol use disorder: Continue thiamine, folic acid No signs of withdrawal currently (8) Cocaine abuse: Denies use in the past few months Urine tox screen negative (9) Tobacco use disorder: Cessation recommended DVT Px: SQ Lovenox Code status: FULL Disposition To be determined PCP: Eileen Morales Patient is seen at bedside. Has refused physical exam, medications and lab draws this morning. Discussed with nephrology today Sodium level slightly better Noted labs. Continues to refuse medications to treat hypomagnesemia. Also refused venous Dopplers to rule out DVT. " I feel trapped". Psychiatry recommended to restart perphenazine 4 mg twice daily Explained the consequences of low sodium levels if continues to worsen. Review of Systems Review of Systems: All systems reviewed & are unremarkable except as noted in HPI & below Physical Exam Physical Exam: Patient refused Results & Data Laboratory Results Short CBC 05/05/19 Range/Units 11:40 WBC 5.93 (4.8-10.8) K/uL Hgb 12.0 (12.0-16.0) g/dL Hct 33.7 L (37-47) % Plt Count 193 (130-400) K/uL BMP 05/04/19 05/05/19 18:59 11:40 Sodium 124 L 125 L Potassium 4.2 3.8 Chloride 89 L 90 L Carbon Dioxide 25 27 BUN 5 L 8 Creatinine 0.90 1.08 Glucose 141 H 129 H Calcium 8.9 8.7
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
[2019-05-05] MEDS ORDERED: LORazepam 3 MG/6 ML VIAL IV PRN (22:42)
[2019-05-05] MEDS ORDERED: GABAPENTIN 1200MG ALCOHOL WITHDRAWAL LOAD PO STA (22:42)
[2019-05-05] MEDS ORDERED: ATIVAN IV ALCOHOL WITHDRAWL IV PRN (22:42)
[2019-05-05] MEDS ORDERED: LORazepam 2 MG/4 ML VIAL IV PRN (22:42)
[2019-05-05] MEDS ORDERED: LORazepam 1 MG/2 ML VIAL IV PRN ×2 (22:42→22:52)
--- NOTE | 2019-05-05 22:48 | Communication Note ---
Date of Service: May 05, 2019 Code [place] called around 10 PM. Agitated patient attempted to elope through stairway. Initiate Gabapentin protocol for possible alcohol withdrawal if patient agreeable to taking oral medications. Patient refusing oral meds and IV access as per RN. IM Ativan PRN agitation if patient without IV access. Will relay to AM provider.
[2019-05-05] MEDS ORDERED: GABAPENTIN 600 MG TAB PO ONE (23:00)
[2019-05-06] MEDS: GABAPENTIN 600 MG TAB PO SCH ×3 (06:22→21:41)
[2019-05-06] MEDS: HydrALAZINE TAB 50 MG TAB PO SCH ×2 (09:23→21:41)
[2019-05-06] MEDS: dilTIAZem HCL 300 MG CAPCR PO SCH (09:23)
[2019-05-06] MEDS: IPRATROPIUM BROMIDE/ALBUTEROL respimat INH INH SCH ×2 (09:24→21:41)
[2019-05-06] MEDS: PANTOprazole 40 MG TAB PO SCH (09:24)
[2019-05-06] MEDS: VALSARTAN 80 MG TAB PO SCH (09:24)
[2019-05-06] MEDS: FOLIC ACID 1 MG TAB PO SCH (09:24)
[2019-05-06] MEDS: THIAMINE HCL 100 MG TAB PO SCH (09:25)
[2019-05-06] MEDS: PERPHENAZINE 2 MG TABLET PO SCH ×2 (09:25→21:41)
[2019-05-06] MEDS: VALACYCLOVIR HCL 500 MG TABLET PO SCH (09:25)
[2019-05-06 13:59] LABS: Calcium 8.8 mg/dl (8.5-10.1); Creatinine Clr Calc Pharmacy 128.9 ml/min; Est GFR (African American) 121.1; Est GFR (Non-African American) 104.5; Magnesium 1.5 mg/dl (1.8-2.4); Potassium 3.4 mmol/L (3.5-5.1)
[2019-05-06] MEDS: MAGNESIUM OXIDE 400 MG TAB PO SCH ×2 (14:15→21:41)
[2019-05-06] MEDS ORDERED: POTASSIUM CHLORIDE 10 MEQ TABCR PO ONE (14:45)
--- NOTE | 2019-05-06 16:33 | Hospitalist Progress Note ---
Date of Service May 06, 2019 Assessment & Plan (1) Hyponatremia: Patient is a 53-year-old female with H/O schizoaffective disorder, anxiety, DM II, paroxysmal A. fib, formerly on Eliquis, hypertension, polysubstance use (alcohol, cocaine, tobacco) and other medical problems listed below who presents from home due to feeling unsafe and was found to have hyponatremia. Hyponatremia Poor historian CT head without acute abnormalities Serum osmolality 259 Urine osmolality 265 Urine sodium: 8 Sodium levels: 122>124>125. 133 No change in mental status Volume status difficult to assess, as patient refused physical exam DD: likely due to diuretics, polydipsia, chronic alcohol use Hold diuretics Liberalize salt, continue fluid restriction 1.5 L/day Monitor sodium levels Appreciate nephrology input Hypomagnesemia Magnesium levels 1.4>>1.5 Refused IV magnesium supplements Started PO Magnesium supplements (2) Bilateral lower extremity edema: R>L BLE edema, non-tender Recently stopped taking Eliquis 1 month ago Refused to get Doppler studies Schizoaffective disorder Unsure of medication complaints Denies homicidal/suicidal thoughts Restarted perphenazine 4 mg twice daily--refuses to take medication Appreciate psychiatry input Would likely benefit from inpatient mental health placement (3) Atrial fibrillation: Was on diltiazem Patient recently stopped taking Eliquis due to "feeling like she was on it too long" Currently refusing meds (4) HTN (hypertension): Blood pressure stable Continue hydralazine, valsartan if patient agrees Hold hydrochlorothiazide secondary to hyponatremia (5) COPD (chronic obstructive pulmonary disease): Continue home inhalers as able (6) DM type 2 (diabetes mellitus, type 2): A1c of 7 in August 2018. Repeat ordered Hold home agents SSI while in-patient Monitor BGs (7) Alcohol use disorder: Continue thiamine, folic acid On gabapentin protocol--refuses meds No signs of withdrawal currently (8) Cocaine abuse: Denies use in the past few months Urine tox screen negative (9) Tobacco use disorder: Cessation recommended DVT Px: SCDs Code status: FULL Disposition To be determined Case management to assist with discharge planning PCP: Eileen Morales Patient is seen at bedside. Continue to refuse physical exam Refuses to take most medications--including antipsychotics Sodium levels improved to 133. Will liberalize fluid intake Agrees to take p.o. magnesium, but does not prefer to have IV magnesium re placement " I am depressed, but I feel okay." Offers no new complaints Sitter at bedside Review of Systems Review of Systems: All systems reviewed & are unremarkable except as noted in HPI & below Physical Exam Physical Exam: Patient refused exam Results & Data Laboratory Results [facility] 05/06/19 13:07 Sodium 133 L D Potassium 3.4 L Chloride 98 Carbon Dioxide 27 BUN 6 L Creatinine 0.58 L D Glucose 109 H Calcium 8.8 (1) HTN (hypertension) Hypertension type: unspecified Qualified Code(s): I10 - Essential (primary) hypertension (2) DM type 2 (diabetes mellitus, type 2) Diabetes mellitus complication status: with other specified complication Diabetes mellitus mcfp insulin use: unspecified mcfp insulin use status Qualified Code(s): E11.69 - Type 2 diabetes mellitus with other specified complication
--- NOTE | 2019-05-06 18:43 | Communication Note ---
Date of Service: May 06, 2019 Psychiatry has continued to follow patient's case, attempting to gather collateral information regarding patient's behavior prior to admission. Psychia tric nurse liaison was able to gather additional information from patient's brother, Donis. He verbalized increased paranoia for the past several weeks, beyond patient's baseline. He states that she has been carrying knifes and looking "window to window." She reportedly continues to abuse alcohol daily. He did admit to feeling the patient needed to be on medication, which she has been refusing here in the hospital. Brother was asked multiple times to complete a petitioning statement based on the above concerns, and repeatedly declined. Pt was offered the opportunity for voluntary inpatient psychiatric admission, which she is refusing. Given worsening of paranoia, to the point of routinely carrying weapons to protect herself - there is concern she is acute risk of harm to self or others if she is discharged in her current condition. She has demonstrated erratic behavior in the hospital, and is not compliant with medications even in a supervised setting where they are routinely offered. Her inability to care for herself has led to an inpatient medical admission, further increasing risk of harm to self if risk factors are not adequately mitigated prior to discharge home. Recommendation at this time is for inpatient psychiatric treatment. If patient remains unwilling for admission, would suggest pursuing 302 involuntary commitment based on the above risk of harm. Dr. Marlee Gutierrez was directly involved in review and discussion of the patient's case and participated in medical decision making regarding treatment recommendations.
[2019-05-07] MEDS: GABAPENTIN 600 MG TAB PO SCH (06:01)
[2019-05-07] MEDS: MAGNESIUM OXIDE 400 MG TAB PO SCH (08:50)
[2019-05-07] MEDS: THIAMINE HCL 100 MG TAB PO SCH (08:50)
[2019-05-07] MEDS: FOLIC ACID 1 MG TAB PO SCH (08:50)
[2019-05-07] MEDS: PERPHENAZINE 2 MG TABLET PO SCH (08:50)
[2019-05-07] MEDS: HydrALAZINE TAB 50 MG TAB PO SCH (08:50)
[2019-05-07] MEDS: VALSARTAN 80 MG TAB PO SCH (08:50)
[2019-05-07] MEDS: IPRATROPIUM BROMIDE/ALBUTEROL respimat INH INH SCH (08:50)
[2019-05-07] MEDS: VALACYCLOVIR HCL 500 MG TABLET PO SCH (08:50)
[2019-05-07] MEDS: dilTIAZem HCL 300 MG CAPCR PO SCH (08:50)
[2019-05-07] MEDS: PANTOprazole 40 MG TAB PO SCH (08:50)
[2019-05-07 11:22] LABS: Calcium 9.1 mg/dl (8.5-10.1); Creatinine Clr Calc Pharmacy 97.1 ml/min; Est GFR (African American) 101.5; Est GFR (Non-African American) 87.5; Magnesium 1.6 mg/dl (1.8-2.4); Potassium 3.5 mmol/L (3.5-5.1)
--- NOTE | 2019-05-07 11:49 | Hospitalist Progress Note ---
Date of Service May 07, 2019 Assessment & Plan (1) Hyponatremia: Patient is a 53-year-old female with H/O schizoaffective disorder, anxiety, DM II, paroxysmal A. fib, formerly on Eliquis, hypertension, polysubstance use (alcohol, cocaine, tobacco) and other medical problems listed below who presents from home due to feeling unsafe and was found to have hyponatremia. Hyponatremia Poor historian CT head without acute abnormalities Serum osmolality 259 Urine osmolality 265 Urine sodium: 8 Sodium levels: 122>124>125>132 No change in mental status Volume status difficult to assess, as patient refused physical exam DD: likely due to diuretics, polydipsia, chronic alcohol use Hold diuretics Liberalize salt, continue fluid restriction 1.5 L/day Monitor sodium levels Appreciate nephrology input Hypomagnesemia Magnesium levels 1.4>>1.5>1.6 Refused IV magnesium supplements Continue PO Magnesium supplements (2) Bilateral lower extremity edema: R>L BLE edema, non-tender Recently stopped taking Eliquis 1 month ago Refused to get Doppler studies Schizoaffective disorder Unsure of medication complaints Denies homicidal/suicidal thoughts Patient is Paranoid Restarted perphenazine 4 mg twice daily--refuses to take medication Appreciate psychiatry input Patient willing to sign 201 Plan to discharge to mental health facility today (3) Atrial fibrillation: Was on diltiazem Patient recently stopped taking Eliquis due to "feeling like she was on it too long" Currently refusing meds (4) HTN (hypertension): Blood pressure stable Continue hydralazine, valsartan if patient agrees Hold hydrochlorothiazide secondary to hyponatremia (5) COPD (chronic obstructive pulmonary disease): Continue home inhalers as able (6) DM type 2 (diabetes mellitus, type 2): A1c of 7 in August 2018. Repeat ordered Hold home agents SSI while in-patient Monitor BGs (7) Alcohol use disorder: Continue thiamine, folic acid On gabapentin protocol--refuses meds No signs of withdrawal currently (8) Cocaine abuse: Denies use in the past few months Urine tox screen negative (9) Tobacco use disorder: Cessation recommended DVT Px: SCDs Code status: FULL Disposition Mental Health Facility Case management to assist with discharge planning PCP: Eileen Morales Patient is seen at bedside. Continues to refuse physical exam Refuses to take most medications as well --including antipsychotics Sodium levels improved to 132. Patient willing to sign 201. Will discharge to mental health facility. States feeling well. Offers no complaints Sitter at bedside Review of Systems Review of Systems: All systems reviewed & are unremarkable except as noted in HPI & below Physical Exam Physical Exam: Patient refused Results & Data Vital Signs (Past 12 Hours) Vital Signs Temp Pulse Resp BP Pulse Ox 05/07/19 07:24 36.8 C 83 18 117/75 92 Laboratory Results BMP 05/06/19 05/07/19 13:07 10:38 Sodium 133 L D 132 L Potassium 3.4 L 3.5 Chloride 98 99 Carbon Dioxide 27 26 BUN 6 L 9 Creatinine 0.58 L D 0.77 Glucose 109 H 166 H Calcium 8.8 9.1 (1) HTN (hypertension) Hypertension type: unspecified Qualified Code(s): I10 - Essential (primary) hypertension (2) DM type 2 (diabetes mellitus, type 2) Diabetes mellitus complication status: with other specified complication Diabetes mellitus custodial insulin use: unspecified custodial insulin use status Qualified Code(s): E11.69 - Type 2 diabetes mellitus with other specified complication
--- NOTE | 2019-05-07 11:55 | Discharge Summary ---
Date of Service May 07, 2019 Admission HPI Per Admitting Provider Rebeca Judge is a 53-year-old female who is admitted for correction and monitoring of sodium levels after being found to be hyponatremic in the ED. Patient reportedly presented due to feeling unsafe at home, with documentation suggesting that someone encouraged the patient to present to the ED. Patient has a long history of schizoaffective disorder, as well as prior diagnoses of anxiety, antisocial personality disorder, malingering, and polysubstance abuse. She has a long history of medication noncompliance. Most recently, patient has been prescribed perphenazine to target paranoia and hallucinations. This is not listed on her home medication list, and compliance with this medication is uncertain at this time. Psychiatric consultation was requested to evaluate patient for "paranoid delusions." Patient's case was reviewed and discussed with psychiatrist and psychiatric nurse liaison. At time of attempted evaluation, patient is largely distracted as she is anticipating a visit from her brother. Patient is observed to be sitting in a chair by the doorway to her room, staring down the hallway. Patient verbalizes to this provider that she does not "want to talk about no psychiatry stuff right now." When asked how she came to the hospital, patient states "I do not want to talk about that. All I know is I think I was set up. They told me to come here, but I think it was all a trick." Patient shares with this provider that she does not feel comfortable in the hospital and states "I was feeling safer at home than I do now." Initially during encounter, patient is observed to be on h er cell phone calling her brother, Donis, to sampler pickup her belongings. Patient participates in minimal conversation, ultimately stating that she understands why she has been admitted medically. She states "my sodium was low, but it is growing." She states that she would like to be discharged. This provider attempted to explain why the lab work she has been refusing it is important for discharge planning. Ultimately, after this conversation, patient is agreeable with completing blood work. Patient does tell this provider that she understands that if her sodium remains low that she is at risk for "a cardiac event." She then states "but I do not care about that." Patient does not verbalize any suicidal or homicidal ideation, she does present as paranoid at this time. Patient is largely resistant to discussing any other details at this time. She was encouraged to reach out to our service with any needs. Admission Exam Per Admitting Provider General Appearance: WD/WN, vitals as above, NAD, sitting in chair with sitter in room. + anxious Head: normocephalic, atraumatic Eyes: normal inspection, PERRL, conjunctivae normal, anicteric sclerae ENT: external ear and nose normal, oropharynx normal Neck: trachea midline, no thyromegaly normal visual inspection Respiratory: normal respiratory effort, scattered wheezing, no rales or rhonchi. Normal insp/exp effort, no accessory muscle use Cardiovascular: tachycardic, regular rhythm, no murmur appreciated, normal peripheral pulses, BLE edema R>L. Vessels: no JVD or carotid bruit Chest: normal inspection of chest Abdomen/GI: normal bowel sounds, soft, nontender, no hepatosplenomegaly Extremities/Musculoskelatal: no cyanosis or clubbing, extremities motor strength 5/5 Neurologic: PERRL, EOMI, accommodation nl, no face palsy, no dysarthria CN's II-XI intact bilaterally and moves all extremities Psychiatric: A+Ox3, easily distracted during exam. Anxious Skin: no rashes, normal color, warm/dry Principal Diagnosis Hyponatremia Hypomagnesemia Paranoid schizoaffective disorder Noncompliance to medications Discharge Data Allergies Allergy/AdvReac Type Severity Reaction Status Date / Time haloperidol Allergy Severe TONGUE Verified 05/04/19 13:54 SWELLING insulin lispro Allergy Intermediate HIVES Verified 05/04/19 13:54 phenol Allergy Intermediate HIVES Verified 05/04/19 13:54 citalopram Allergy Mild ITCHING Verified 05/04/19 13:54 sulfamethoxazole Allergy Mild RASH Verified 05/04/19 13:54 trimethoprim Allergy Mild RASH Verified 05/04/19 13:54 Bactrim Allergy Unknown RASH Verified 12/01/17 16:09 Penicillins Allergy Unknown UNKNOWN Verified 05/04/19 13:54 topiramate AdvReac Severe SEIZURE Verified 05/04/19 13:54 LIKE ACTIVITY morphine AdvReac Mild HEADACHE Verified 05/04/19 13:54 oxycodone AdvReac Mild ITCH Verified 05/04/19 13:54 Margarine Allergy Severe RASH Uncoded 05/04/19 13:54 Consultations 05/04/19 13:14 ED Decision to Admit Stat 05/04/19 16:34 Consult Nephrology Routine 05/04/19 17:31 Consult Case Management - Discharge Planning Routine 05/04/19 20:35 Consult Psychiatry Routine Procedures Performed CT head without acute abnormalities CXR:Negative chest. Ordered Studies 05/04/19 13:05 CT head/brain wo con Stat Hospital Course (1) Hyponatremia: Patient is a 53-year-old female with H/O schizoaffective disorder, anxiety, DM II, paroxysmal A. fib, formerly on Eliquis, hypertension, polysubstance use (alcohol, cocaine, tobacco) and other medical problems listed below who presents from home due to feeling unsafe and was found to have hyponatremia. Hyponatremia Poor historian CT head without acute abnormalities Serum osmolality 259 Urine osmolality 265 Urine sodium: 8 Sodium levels: 122>124>125>132 No change in mental status Volume status difficult to assess, as patient refused physical exam DD: likely due to diuretics, polydipsia, chronic alcohol use Hold diuretics Liberalize salt, continue fluid restriction 1.5 L/day Monitor sodium levels Appreciate nephrology input Hypomagnesemia Magnesium levels 1.4>>1.5>1.6 Refused IV magnesium supplements Continue PO Magnesium supplements (2) Bilateral lower extremity edema: R>L BLE edema, non-tender Recently stopped taking Eliquis 1 month ago Refused to get Doppler studies Schizoaffective disorder Unsure of medication complaints Denies homicidal/suicidal thoughts Patient is Paranoid Restarted perphenazine 4 mg twice daily--refuses to take medication Appreciate psychiatry input Patient willing to sign 201 Plan to discharge to mental health facility today (3) Atrial fibrillation: Was on diltiazem Patient recently stopped taking Eliquis due to "feeling like she was on it too long" Currently refusing meds (4) HTN (hypertension): Blood pressure stable Hold hydrochlorothiazide secondary to hyponatremia for now Blood pressure relatively low, while off antihypertensives. Discontinue hydralazine, valsartan for now (5) COPD (chronic obstructive pulmonary disease): Continue home inhalers as able (6) DM type 2 (diabetes mellitus, type 2): A1c of 7 in August 2018. Repeat ordered Hold home agents SSI while in-patient Monitor BGs (7) Alcohol use disorder: Continue thiamine, folic acid On gabapentin protocol--refuses meds No signs of withdrawal currently (8) Cocaine abuse: Denies use in the past few months Urine tox screen negative (9) Tobacco use disorder: Cessation recommended DVT Px: SCDs Code status: FULL Disposition [facility] Case management to assist with discharge planning PCP: Eileen Total Time Total Time Spent Total Time Spent (In Minutes): 38 minutes Total Time Includes: Examination of the Patient, Discharge Planning, Medication Reconciliation, Communication With Other Providers and Other Discharge Plan Discharge Items Patient Disposition: Transfer Behavioral Health Fac Reason For Visit: HYPONATREMIA Discharge Diagnosis: Hyponatremia Hypomagnesemia Paranoid schizoaffective disorder Noncompliance to medications Activity: Resume your previous activity Exercise/Sports: Gradually increase as tolerated Non-emergency contact: Primary Care Provider and Psychiatrist Call non-emergency contact if: you have any medication questions, your symptoms worsen, your pain is not controlled, your pain is worsening, your pain is unusual for you, your pain is concerning for you and you have a fever Follow-up/Referrals: PCP,NO [Primary Care Provider] - Diet: Carb Consistent or DM2 Fluids: 1500ml (6 cups) Addtl Attending Provider Instructions: Follow-up with your primary care physician [facility] Follow-up with your psychiatrist as per recommendation Take medications regularly as advised Quit drinking alcohol as advised You Valsartan 320mg and Hydralazine 50mg BID are discontinued as your blood Pressure has been low. Your Hydrochlorothiazide 12.5mg daily is discontinued for now due to low sodium levels Seek immediate medical attention if your symptoms reoccur or worsen Pending Studies at Discharge: No Stand-Alone Forms: My [facility] Medications and DC Order Prescriptions: New folic acid 1 mg Tablet 1 mg PO QAM Qty: 0 RF: 0 perphenazine 2 mg Tablet 4 mg PO BID Qty: 0 RF: 0 magnesium chloride [Mag 64] 64 mg Tablet,Delayed Release (Dr/Ec) 64 mg PO BID Qty: 0 RF: 0 Continued valacyclovir 500 mg Tablet 500 mg PO QAM RF: 0 trazodone 100 mg Tablet 200 mg PO HS PRN (Reason: Sleep) RF: 0 omeprazole 20 mg Tablet,Delayed Release (Dr/Ec) 20 mg PO DAILY RF: 0 lactulose [Constulose] 10 gram/15 mL solution 30 ml PO DAILY PRN (Reason: Constipation) RF: 0 diltiazem HCl [Cartia XT] 300 mg capsule,extended release 24hr 300 mg PO DAILY RF: 0 insulin lispro [Admelog SoloStar U-100 Insulin] 100 unit/mL insulin pen 15 - 18 unit subcut TIDM RF: 0 Discontinued valsartan 320 mg Tablet 320 mg PO DAILY RF: 0 hydrochlorothiazide 12.5 mg Tablet 12.5 mg PO DAILY RF: 0 No Action meloxicam [Mobic] 15 mg Tablet 15 mg PO DAILY RF: 0 Eliquis 5 mg Tablet 5 mg PO DAILY RF: 0 perphenazine 8 mg Tablet 8 mg PO BID RF: 0 fluticasone propion-salmeterol 232-14 mcg/actuation Aerosol Powdr Breath Activated 1 puff INHALATION BID RF: 0 Discharge Orders: Discharge Order (Routine); Ordered 05/07/19 Ordered By: Viktor Durant Admission Data Admit Date/Time: 05/04/19 14:08 Attending Provider: Viktor Durant Admit Provider: Hardy Caldwell Primary Care Provider: PCP,NO Other Providers: Julia Blank ; Hardy Caldwell ; Nadja Holland Other Interventions: Discharge Summary Assessment (RN) Last Done: 05/07/19 13:08 DC Date/Time DO NOT enter until pt leaves facility: 05/07/19 13:09
[2019-05-07] MEDS ORDERED: MAGNESIUM CHLORIDE 64MG DELAYED REL TAB PO SCH (21:00)
[2019-05-08] MEDS ORDERED: GABAPENTIN 600 MG TAB PO SCH
[2019-05-09] MEDS ORDERED: GABAPENTIN 600 MG TAB PO SCH (12:00)
== END 2019-05-07 13:09 | DRG 641 ==
LOC: ED 10:30 → SUATTDRO 14:08 → 2N 14:08

== ENCOUNTER 2019-05-07 12:37 | Inpatient (IN) ==
[2019-05-07] MEDS ORDERED: ALUMINUM/MAGNESIUM SUSP 30 ML UDC PO PRN (13:51)
[2019-05-07] MEDS ORDERED: MAGNESIUM HYDROXIDE SUSP 30 ML UDC PO PRN (13:51)
[2019-05-07] MEDS ORDERED: ACETAMINOPHEN 325 MG TAB PO PRN (13:51)
[2019-05-07] MEDS ORDERED: BISMUTH SUBSALICYLATE PER ML OMNICELL CHARGE PO PRN (13:51)
[2019-05-07] MEDS ORDERED: SODIUM CHLORIDE 0.65% NA SOLN 45 ML (OCEAN) PRN (13:51)
[2019-05-07] MEDS ORDERED: TRAZODONE HCL 100 MG TAB PO PRN (14:39)
[2019-05-07] MEDS ORDERED: LACTULOSE SYRUP 20 GM/30 ML UDC PO PRN (14:39)
[2019-05-07] MEDS ORDERED: Nursing to Pharmacy Communication ONE (14:50)
[2019-05-07] MEDS ORDERED: PHARMACY GLYCEMIC MGMT CONSULT PRN (15:03)
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
[2019-05-07] MEDS: METFORMIN HCL ER 500 MG TABCR PO SCH (17:31)
[2019-05-07] MEDS: PERPHENAZINE 2 MG TABLET PO SCH (20:57)
[2019-05-07] MEDS ORDERED: APIXABAN 2.5 MG TAB PO SCH (21:00)
[2019-05-07] MEDS: [UNRECOGNIZED DRUG - REMARK] INH SCH (21:52)
[2019-05-08 07:17] LABS: Potassium 3.4 mmol/L (3.5-5.1)
[2019-05-08] MEDS: PANTOprazole 40 MG TAB PO SCH (08:47)
[2019-05-08] MEDS: METFORMIN HCL ER 500 MG TABCR PO SCH ×2 (08:47→17:15)
[2019-05-08] MEDS: dilTIAZem HCL 300 MG CAPCR PO SCH (08:47)
[2019-05-08] MEDS: [UNRECOGNIZED DRUG - REMARK] INH SCH ×2 (08:48→21:31)
[2019-05-08] MEDS: PERPHENAZINE 2 MG TABLET PO SCH ×2 (08:48→21:30)
[2019-05-08] MEDS ORDERED: VALSARTAN 80 MG TAB PO SCH (09:00)
[2019-05-08] MEDS ORDERED: MELOXICAM 7.5 MG TAB PO SCH (09:00)
[2019-05-08] MEDS ORDERED: APIXABAN 5 MG TABLET PO SCH ×2 (09:00)
[2019-05-08] MEDS ORDERED: hydroCHLOROthiazide 25 MG TAB PO SCH (09:00)
--- NOTE | 2019-05-08 10:21 | Psychiatric Progress Note ---
Date of Service May 08, 2019 Impression / Recommendations Impression 53-year-old female, well-known to our service, who is admitted voluntarily for inpatient psychiatric treatment upon transfer from the medical floor. Pt has a long history of paranoia, but is generally able to maintain adequate functioning and safety when compliant with psychiatric medications. She was admitted for mental health evaluation, having been noncompliant with medications and appearing more paranoid at home - reportedly checking windows, claiming people were coming to get her, and carrying a knife around while at home. Pt continued to refuse restart of Trilafon, which she has historically demonstrated response to, while on the medical floor. It was restarted upon admission to the [facility]HU, at 4mg qAM and 8mg qHS. Pt is tolerating the medication and is agreeable to compliance at home. Hospitalist consult was requested to coordinate other aspects of her medical care, as she has a significant history of T2DM, atrial fibrillation, alcohol abuse, and was admitted with hyponatremia. Inpatient p sychiatric admission remains medically necessary until patient is able to demonstrate ability to maintain safety outside of the hospital setting. (1) Schizoaffective disorder: 05/07/19 -The patient presents with psychotic symptoms. She appears to be experiencing auditory hallucinations, although she denies that she has been hearing "voices," she also tells us that she has "bionic hears" that allow her to hear conversations that occur at remote distances and that no one else is able to hear. The patient also describes the belief that she has "the power of discernment" by which she means that she is able to discern or predict the future. The patient's family reports that the patient has been saying that she feels that she is in danger and has been walking the streets of [place] with a knife. 05/08 - Continue Trilafon 4mg qAM and 8mg qHS per admission orders - patient's condition already appears to be improving - Coordinate with outpatient supports, generally brother Donis is helpful with providing collateral - Coordinate with outpatient immigration case manager - Determine aftercare arrangements, as patient is now stating she does not ev en have a PCP (2) Atrial fibrillation: 05/07/19 -The patient has a history of atrial fibrillation and she tells us that she has been taking Eliquis because of this history. However, she notes that she stopped taking it on her own, before she was advised that it would be safe to do so. Initially, we had planned to restart it, but the patient has said that she will refuse Eliquis. We have asked for a hospitalist consult. 05/08 - Appreciate hospitalist recommendation - Recommend Eliquis 5mg BID, patient agreeable at this time, but reports vague history of "bleeding" on the medication - Recommend holding Mobic while on Eliquis (3) Hyponatremia: 05/07/19 -The patient's hyponatremia is of unknown etiology. It may be related to persistent poor oral intake. The patient is unable to quantify her typical fluid intake, but admits that she has been drinking "a lot of water." Staff has been alerted to monitor the patient for excessive water intake. We are not aware of a past history of psychogenic polydipsia. -Serial electrolyte levels will be drawn over the weekend and will be monitored. 05/08 - Hospitalist service recommending holding HCTZ - Problem is currently resolved - Na 138 today - Recommending restricting fluid to 2L daily - nursing aware and agreeable to monitoring (4) Alcohol use disorder: 07/07/18 -The patient is not a reliable hand model and seems to clearly misrepresent her alcohol use pattern. She does acknowledge that she has a "past" history of alcohol abuse, but initially tells us that she has been alcohol free for a number of months, and then acknowledges that she has recently been drinking wine in limited amounts, while her brother reports that she has been drinking heavily. -The patient is aware that it is dangerous for her to be drinking alcohol and she tells us that she is committed to abstinence. (5) DM type 2 (diabetes mellitus, type 2): 05/07/19 -Attempt to educate the patient regarding a diabetic diet have so far been unsuccessful. She insists that she should be on a regular diet because her blood sugar is under control, and when we review her serum glucose levels with her she indicates that those are "okay" and that there is no need for special diet. Type 2 diabetes diet has been ordered. -The patient is indicated that she does not wish to take insulin. We have consulted with the glycemic pharmacist. In the meantime, we have restarted metformin 500 mg twice a day, which is the medication and dose that the patient says she will be willing to take. Inventory Assets Strengths: The patient recognizes that she has a mental illness. She also recognizes her need for treatment. She has a quick wit and a good sense of humor. She also enjoys being around other people and, for example, specifically asked to have a roommate during her current stay so that she will have "someone to talk to." Patient also has a history of favorable response to antipsychotic and other psychiatric medications. Needs: Improved medication adherence. Resolution of psychotic symptoms. Resolution of perceptual disturbances. Ability to care for her own physical needs outside of a setting that provides the full spectrum of psychiatric services at the hospital level of care. Supportive brother. Risk Factors Assessment Male: No : No Do You Have Access To A Gun?: No Health Problems: Yes Mental Health Diagnoses: Yes Substance Use Disorders: Yes Previous Attempt: Yes Previous Attempt; Highly Lethal: No Previous Attempt; Planned: No Previous Attempt; Didn't Tell Anyone: No Family History of Suicide: No Previous Psychiatric Hospitalization: Yes Hopelessness: No Smoker: Yes Protective Factors Assessment Yazidism Beliefs: Yes : No Responsible for Young Children: No Employed: No Stable Relationships: Yes Supportive Family: Yes Good Rapport with Provider: No Absence of Any Risk Factors Above: No Interval History Identifying Information TRINA LEMUS is a 53-year-old F who currently lives in a psychiatric prison in [place] with various others. She has a history of schizoaffective disorder and was admitted on 05/07/19 13:10 on a 201 voluntary commitment because of disorganized and threatening behaviors. Chief Complaint "Feeling a lot better today." Review of Systems Notes Constitutional: reports mild fatigue since admission, believes it is related to restart of Trilafon Cardiovascular: denied Respiratory: denied Gastrointestinal: denied Neurological: denied Psychiatric: denies symptoms other than stated above Total of at least 10 systems reviewed, pertinent positives as above and in HPI. Sleep Information Total Hours of Sleep: 6.5 Meal Information Percent Meal Consumed - Breakfast: 30 Percent Meal Consumed - Dinner: 75 Subjective Subjective Patient was seen & assessed and interval progress reviewed with nursing and social work. Staff report the patient has been compliant with medications and with group programming. She rated her mood a 6/10 last evening. Pt was seen today to assess progress since admission. Pt states she is feeling "better" today. She admits that she has been compliant with restart of Trilafon. She states, "my thoughts are better today. I'm feeling good." Pt admits that at this time she plans to continue all of her medications after discharge. Pt tells this provider that she does not have a current PCP, stating she closed her case with Dr. Arellano. She reports her mood is "good, just tired." She denies paranoia or feeling unsafe - stating "If I get that way, I will just tell you." She denies SI/HI and other acute needs or concerns at this time. Of note, patient verbalizes concern regarding her dose of apixaban being increased to 5mg BID, rather than once daily. Pt is stating that she had "bleeding" with BID dosing of the medication in the past - though details of this observation are rather vague. Pt was informed of hospitalist recommendations and standard dosing. She is agreeable to trial of this dosage, and was encouraged to inform staff of an concerns. Physical Exam Psychiatric Orientation: alert, oriented x 3 and cooperative (and rather pleasant) Apperance: appropriately dressed (casually, in sweater and sweat pants), appropriately groomed (recently showered) and appeared stated age Eye Contact: good eye contact Motor Behavior: steady gait and station (cautious ambulation, with cane) and no abnormal motor movements Speech: normal rate/rhythm/volume of speech Affect: + anxious affect (mild, seemingly distracted) and mood congruent with affect Mood: no depressed mood ("Better", mood is reportedly "good, just tired") Thought Process: goal directed thought process, clear/coherent thought process and thought association intact Thought Content: reality based without delusions (no paranoid thoughts verbalized during visit); no hopelessness Suicidal Thoughts: denies suicidal thoughts and denies suicidal intent Homicidal Thoughts: denies homicidal thoughts Hallucinations: no auditory hallucinations and no visual hallucinations Cognition: attention grossly intact and language grossly intact Insight: + limited insight Judgement: + fair judgement Vital Signs (Past 24 Hours) Last Vital Signs Temp 37.5 C 05/08/19 06:49 Pulse 105 H 05/08/19 06:50 Resp 18 05/08/19 06:49 BP 148/93 H 05/08/19 06:50 Results & Data Laboratory Results Laboratory Results - last 24 hr 05/07/19 05/08/19 05/08/19 21:01 06:29 08:30 Sodium 138 Potassium 3.4 L Chloride 103 Carbon Dioxide 29 Anion Gap 6.0 POC Glucose 124 H 122 H Current Inpatient Medications Current Inpatient Medications: Current Inpatient Medications Acetaminophen (Tylenol) 650 mg PO Q4H PRN PRN Reason: Headache or Minor Fever Stop: 06/06/19 13:50 Al Hydrox/Mg Hydrox/Simethicone (Maalox) 30 ml PO Q4H PRN PRN Reason: GI Upset Stop: 06/06/19 13:50 Apixaban (Eliquis) 5 mg PO QAM [facility] Stop: 06/07/19 08:59 Last Admin: 05/08/19 10:16 Dose: 5 mg Documented by: Bismuth Subsalicylate (Kaopectate) 15 ml PO PRN PRN PRN Reason: Loose Stool Stop: 06/06/19 13:50 Diltiazem HCl (Cardizem Cd) 300 mg PO DAILY [facility] Stop: 06/07/19 08:59 Last Admin: 05/08/19 08:47 Dose: 300 mg Documented by: Hydrochlorothiazide (Hctz) 12.5 mg PO DAILY [facility] Stop: 06/07/19 08:59 Last Admin: 05/08/19 08:47 Dose: 12.5 mg Documented by: Hydroxyzine HCl (Vistaril) 50 mg PO HSZ PRN PRN Reason: Insomnia Stop: 06/06/19 13:50 Hydroxyzine HCl (Vistaril) 25 mg PO Q4H PRN PRN Reason: Anxiety Stop: 06/06/19 13:50 Lactulose (Chronulac) 20 gm PO DAILY PRN PRN Reason: Constipation Magnesium Hydroxide (Milk Of Magnesia) 30 ml PO DAILY PRN PRN Reason: Constipation Stop: 06/06/19 13:50 Meloxicam (Mobic) 15 mg PO DAILY CARLOS Stop: 06/07/19 08:59 Last Admin: 05/08/19 08:48 Dose: 15 mg Documented by: Metformin HCl (Glucophage Er) 500 mg PO BIDM [facility] Stop: 06/06/19 17:44 Last Admin: 05/08/19 08:47 Dose: 500 mg Documented by: Miscellaneous Information (Consult Glycemic Management Pharmacy) 1 ea N/A UD PRN PRN Reason: Consult Stop: 06/06/19 15:02 *Fluticasone/Salmeterol*Non-Form Patient's Own Med 1 ea INH BID CARLOS Stop: 06/06/19 21:29 Last Admin: 05/08/19 08:48 Dose: 1 inha Documented by: Pantoprazole Sodium (Protonix) 40 mg PO DAILY CARLOS Stop: 06/07/19 08:59 Last Admin: 05/08/19 08:47 Dose: 40 mg Documented by: Perphenazine (Trilafon) 8 mg PO HS CARLOS Stop: 06/06/19 21:59 Last Admin: 05/07/19 20:57 Dose: 8 mg Documented by: Perphenazine (Trilafon) 4 mg PO DAILY CARLOS Stop: 06/07/19 08:59 Last Admin: 05/08/19 08:48 Dose: 4 mg Documented by: Sodium Chloride ([place] Nasal) 1 - 2 sprays NA PRN PRN PRN Reason: Nasal Dryness/Congestion Stop: 06/06/19 13:50 Trazodone HCl (Desyrel) 200 mg PO HS PRN PRN Reason: Sleep Stop: 06/06/19 14:38 Valsartan (Diovan) 320 mg PO DAILY CARLOS Stop: 06/07/19 08:59 Last Admin: 05/08/19 08:47 Dose: 320 mg Documented by: Mental Health & Subst Abuse Tx Therapist Name of Therapist: n/a Network Communications Engineer Name of Network Communications Engineer: Aria Webster Post Discharge Appointments Primary Care Physician Name Of Family Doctor: Yovani Arellano (1) DM type 2 (diabetes mellitus, type 2) Diabetes mellitus complication status: with other specified complication Diabetes mellitus mcfp insulin use: unspecified terminal system operator insulin use status Qualified Code(s): E11.69 - Type 2 diabetes mellitus with other specified complication (2) Schizoaffective disorder Schizoaffective disorder type: unspecified Qualified Code(s): F25.9 - Schizoaffective disorder, unspecified
--- NOTE | 2019-05-08 12:07 | Consultation ---
Date of Consultation May 08, 2019 Assessment & Plan (1) Atrial fibrillation: Chronic a-fib. On Eliquis when she chooses to take it -Pt reports willing to tale Eliquis -Recommend Eliquis 5mg BID -Continue diltiazem, however monitor BP closely, may need to consider lowering dose if hypotensive -Hold Mobic while on Eliquis (2) Hyponatremia: Resolved. Na: 138 today -Recommend fluid restriction at 2L daily -Hold HCTZ (3) Hypokalemia: K: 3.4 -Replace orally with potassium chloride 20meq (4) Hypomagnesemia: Magnesium: 1.6 yesterday on 05/07/19 -Recommend daily replacement with magnesium 400mg (5) HTN (hypertension): Has been stable Valsartan has been on hold during hospitalization -Continue diltiazem -Recommend holding valsartan as BP's controlled -Hold HCTZ with recent hyponatremia (6) COPD (chronic obstructive pulmonary disease): -Continue home inhalers (7) DM type 2 (diabetes mellitus, type 2): -Continue home medications (8) Schizoaffective disorder: -Plan per psychiatry DVT Prophylaxis -On Eliquis Pt was seen and care coordinated with Dr Dias. See addendum Thank you for this consultation. You can reach a [facility] of the [facility]01 via pager @ [phone]. Supervising Physician Co-Signing Physician Notes I have seen and examined the pt and coordinated care with Tennille SEYMOUR. I agree with her note above. Reviewed data. Pt is a 53 y/o female with hx of the above mentioned psych and medical hx, most recently admitted to medical service for hyponatremia. During her hospitalization she refused medications and phys. exam. Today on my evaluation, she is cooperative and answers questions appropriately. She is in no acute distress. Denies any chest pain, shortness of breath, palpitations, abd. pain, nausea or vomiting. Says she eats well. On my exam, clear to auscult. b/l,no wheezing, rhonchi, crackles, rrr, abdomen soft, nontender, nondistended, moves all 4 extrem. spontaneoulsy, no weakness noted. Discussed her med. hx and pt does refuse taking Eliquis 5 mg twice a day. States that she had bleeding from multiple sites while taking the med bid. On review of her med. record it seems like she is only prescribed Eliquis once a day by her PCP. She even mentioned that she "fired PCP" who was trying to give it to her twice a day. At this point ok to cont. Eliquis 5 mg once a day. Hyponatremia resolved, agree to hold diuretics for now. Electrolytes replacement (mag, potassium), pt is agreeable to that as well. Will cont. to follow. Thank you for this consultation, please contact us with any concerns or questions. MD Kaia History of Present Illness Reason for Consultation: Medication dosing Attending Physician: Aroldo Stubbs MD History of Present Illness Pt is 53 y/o F with PMH schizoaffective disorder, anxiety, DM II, paroxysmal A. fib, on Eliquis when she wants to take it, hypertension, polysubstance use (alcohol, cocaine, tobacco) and other medical problems listed below who is seen in medical consultation for medication dosing. Pt was recently admitted for hyponatremia and discharged to mental health unit. Pt was previously refusing to take Eliquis. Today pt reports is willing to take. She had reported she takes Eliquis once a day when she does take it. Currently denies any bleeding, melena. Currently denies any medical complaint. Reports eating and drinking well. Denies fever/chills, diaphoresis, N/V/D/C, CARSON, dizziness, syncope, vision changes, neck pain, CP, SOB, orthopnea, palpitations, cough, sore throat, choking, otalgia, rhinorrhea, abdominal pain, paresthesias, weakness, extremity weakness, extremity edema, rashes, urinary symptoms. Allergies Allergy/AdvReac Type Severity Reaction Status Date / Time haloperidol Allergy Severe TONGUE Verified 05/04/19 13:54 SWELLING insulin lispro Allergy Intermediate HIVES Verified 05/04/19 13:54 phenol Allergy Intermediate HIVES Verified 05/04/19 13:54 citalopram Allergy Mild ITCHING Verified 05/04/19 13:54 sulfamethoxazole Allergy Mild RASH Verified 05/04/19 13:54 trimethoprim Allergy Mild RASH Verified 05/04/19 13:54 Bactrim Allergy Unknown RASH Verified 12/01/17 16:09 Penicillins Allergy Unknown UNKNOWN Verified 05/04/19 13:54 topiramate AdvReac Severe SEIZURE Verified 05/04/19 13:54 LIKE ACTIVITY morphine AdvReac Mild HEADACHE Verified 05/04/19 13:54 oxycodone AdvReac Mild ITCH Verified 05/04/19 13:54 Margarine Allergy Severe RASH Uncoded 05/04/19 13:54 Home Medications Home Medications Medication Instructions Recorded Confirmed Type omeprazole 20 mg PO DAILY 07/05/18 05/07/19 History trazodone 200 mg PO HS PRN 07/05/18 05/07/19 History valacyclovir 500 mg PO QAM 07/05/18 05/07/19 History lactulose [Constulose] 30 ml PO DAILY PRN 09/29/18 05/07/19 History hydrochlorothiazide 12.5 mg PO DAILY 11/08/18 05/07/19 History diltiazem HCl [Cartia XT] 300 mg PO DAILY 12/01/18 05/07/19 History insulin lispro [Admelog SoloStar 15 - 18 unit SUBCUT TIDM 12/01/18 05/07/19 History U-100 Insulin] valsartan 320 mg PO DAILY 01/01/19 05/07/19 History apixaban [Eliquis] 5 mg PO DAILY 05/07/19 05/07/19 History fluticasone propion-salmeterol 1 puff INHALATION BID 05/07/19 05/07/19 History meloxicam [Mobic] 15 mg PO DAILY 05/07/19 05/07/19 History perphenazine 8 mg PO BID 05/07/19 05/07/19 History Patient History Medical History DM type 2 (diabetes mellitus, type 2) (Chronic) Tobacco use disorder (Chronic) History of opioid abuse (Chronic) Cocaine abuse (Chronic) Hx of suicide attempt (Resolved) COPD (chronic obstructive pulmonary disease) (Chronic) Fatty liver (Chronic) Elevated troponin (Chronic) Obesity (Chronic) HTN (hypertension) (Chronic) Sleep apnea (Chronic) Neuropathy (Chronic) Sciatic nerve disease (Chronic) Atrial fibrillation (Chronic) Epistaxis, recurrent (Chronic) Chronic generalized pain disorder (Chronic) Alcohol induced acute pancreatitis (Resolved) Alcohol use disorder (Chronic) COPD with exacerbation (Inactive) EtOH dependence (Inactive) Non-sustained ventricular tachycardia (Inactive) Surgical History H/O ovarian cystectomy (Resolved) H/O foot surgery (Resolved) Family History Other Heart disease Kidney disease Social History Preferred Language: Welsh Communication Ability: Effective Visual Impairment: No Limitations Filter Helper Required: No Beliefs That Will Affect Care: Hindu Hindu Beliefs: "I believe in [employer]" marital status: Single Current Living Situation: Family Current Living Situation Comment: lives with brother current occupational status: unemployed and disabled Feels Safe at Home: Yes Smoking Status: Current every day smoker Tobacco Type: cigarettes ; Cigarettes Per Day: 15-30 ; Second Hand Exposure: Yes ; Hx Alcohol Use: Yes Alcohol type: wine and hard liquor Hx Substance Use: No Review of Systems Review of Systems: All systems reviewed & are unremarkable except as noted in HPI & below Physical Exam Physical Exam: General: no distress, WDWN Head: normocephalic, atraumatic Eyes: PERRL, EOM's intact, conjunctiva non-injected, anicteric ENT: normal inspection external ears, nose, mucous membranes moist Neck: supple, trachea midline Lungs: clear, no respiratory distress, no wheezing/rhonchi/rales CV: RRR, rate 98, no murmur, no pretibial edema Abd: normal BS, soft, non-tender Ext: no cyanosis, no calf tenderness Neuro: A&O x 3, no focal deficits noted, flat affect Skin: warm, dry Results & Data Vital Signs (Past 12 Hours) Vital Signs Temp Pulse Resp BP 05/08/19 06:50 105 H 148/93 H 05/08/19 06:49 37.5 C 85 18 123/76 Laboratory Results Short CBC 05/07/19 05/08/19 05/08/19 Range/Units 21:01 06:29 08:30 Sodium 138 (136-145) mmol/L Potassium 3.4 L (3.5-5.1) mmol/L Chloride 103 (98-107) mmol/L Carbon Dioxide 29 (21-32) mmol/L Anion Gap 6.0 (3-11) POC Glucose 124 H 122 H (70-99) BMP 05/08/19 06:29 Sodium 138 Potassium 3.4 L Chloride 103 Carbon Dioxide 29 (1) DM type 2 (diabetes mellitus, type 2) Diabetes mellitus complication status: with other specified complication 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
[2019-05-08] MEDS ORDERED: POTASSIUM CHLORIDE 20 MEQ TABCR PO ONE (12:45)
[2019-05-08] MEDS: MAGNESIUM OXIDE 400 MG TAB PO SCH (13:34)
[2019-05-08] MEDS ORDERED: GLUCOSE 40% GEL 15 GM TUBE PO PRN (18:15)
[2019-05-08] MEDS ORDERED: GLUCOSE 10 TABS/TUBE PO PRN (18:15)
[2019-05-08] MEDS ORDERED: CARBOHYDRATES FOR HYPOGLYCEMIA PO PRN (18:15)
[2019-05-08] MEDS ORDERED: GLUCAGON FOR INJ 1 MG VIAL SQ PRN (18:15)
[2019-05-08] MEDS ORDERED: DEXTROSE 50% 50 ML SYRINGE IV PRN (18:15)
[2019-05-08] MEDS: INSULIN ASPART 100 UNITS/ML 3 ML PEN SC SCH ×2 (18:26→21:33)
--- NOTE | 2019-05-08 19:39 | Pharmacy Report ---
Pharmacy Glycemic Short Note 2 - Date of Service May 08, 2019 - Glycemic Short BSG Results (Last 24 hours): 05/07/19 05/08/19 05/08/19 21:01 08:30 18:10 POC Glucose 124 H 122 H 156 H OUTPATIENT ANTIDIABETIC REGIMEN: * Lispro 15-18 units TID with meals plus correction of 1:25 for BSG >125 * A1c of 7.1% on 10/12/18 ASSESSMENT: * 53 year old T2DM female admitted for psychiatric evaluation. At the time of ad mission, the patient was refusing insulin therefore she was placed on metformin. Pharmacy was notified 05/08 PM that the patient is now agreeable to insulin therapy. * Patient is known the the pharmacy glycemic service from previous admissions. It is unclear if she currently is on basal insulin at home. She is unable to confirm this. At the time of her November 2018 admission she was on basaglar 60 units SQ qHS. She was evaluated in the ED in December. During her December visit her med rec reflected bolus insulin only (lispro). Of note, patient has lost ~40 lbs since December. * Since fasting BSG is at goal despite administration of no insulin yesterday, I will hold off on basal insulin until further BSG data is available. * Will manage with Novolog per correction factor and carb ratio and reassess on 1110 AM. PLAN FOR INPATIENT GLYCEMIC CONTROL: * Basal insulin * none * Bolus insulin * NovoLog per scale ACHS or Q6hrs while NPO * Goal Range: Low 110 mg/dL - High 140 mg/dL * Correction Factor: 20 mg/dL/unit * Nutritional / Prandial insulin per carb ratio of 1 unit per 6 grams CHO consumed PLAN FOR DISCHARGE: * updated A1c pending
[2019-05-08] MEDS: APIXABAN 2.5 MG TAB PO SCH (21:32)
[2019-05-09 07:34] LABS: Potassium 3.4 mmol/L (3.5-5.1)
[2019-05-09] MEDS: dilTIAZem HCL 300 MG CAPCR PO SCH (08:30)
[2019-05-09] MEDS: APIXABAN 2.5 MG TAB PO SCH (08:30)
[2019-05-09] MEDS: [UNRECOGNIZED DRUG - REMARK] INH SCH ×2 (08:30→21:28)
[2019-05-09] MEDS: PANTOprazole 40 MG TAB PO SCH (08:31)
[2019-05-09] MEDS: METFORMIN HCL ER 500 MG TABCR PO SCH ×2 (08:31→08:40)
[2019-05-09] MEDS: MAGNESIUM OXIDE 400 MG TAB PO SCH (08:31)
[2019-05-09] MEDS: PERPHENAZINE 2 MG TABLET PO SCH ×2 (08:31→21:28)
[2019-05-09] MEDS: INSULIN ASPART 100 UNITS/ML 3 ML PEN SC SCH ×4 (08:33→21:31)
--- NOTE | 2019-05-09 08:43 | Psychiatric Progress Note ---
Date of Service May 09, 2019 Impression / Recommendations Impression 53-year-old female, well-known to our service, who is admitted voluntarily for inpatient psychiatric treatment upon transfer from the medical floor. Pt has a long history of paranoia, but is generally able to maintain adequate functioning and safety when compliant with psychiatric medications. She was admitted for mental health evaluation, having been noncompliant with medications and appearing more paranoid at home - reportedly checking windows, claiming people were coming to get her, and carrying a knife around while at home. Pt continued to refuse restart of Trilafon, which she has historically demonstrated response to, while on the medical floor. It was restarted upon admission to the MHU, at 4mg qAM and 8mg qHS. Pt is tolerating the medication and is agreeable to compliance at home. Hospitalist consult was requested to coordinate other aspects of her medical care, as she has a significant history of T2DM, atrial fibrillation, alcohol abuse, and was admitted with hyponatremia. Inpatient psychiatric admission remains medically necessary until patient is able to demonstrate ability to maintain safety outside of the hospital setting. (1) Schizoaffective disorder: 05/07/19 -The patient presents with psychotic symptoms. She appears to be experiencing auditory hallucinations, although she denies that she has been hearing "voices," she also tells us that she has "bionic hears" that allow her to hear conversations that occur at remote distances and that no one else is able to hear. The patient also describes the belief that she has "the power of discernment" by which she means that she is able to discern or predict the future. The patient's family reports that the patient has been saying that she feels that she is in danger and has been walking the streets of [place] with a knife. 05/08 - 05/09 - Continue Trilafon 4mg qAM and 8mg qHS per admission orders - patient's condition already appears to be improving - Coordinate with outpatient supports, generally brother Donis is helpful with providing collateral - Coordinate with outpatient case management social worker - Determine aftercare arrangements, as patient is now stating she does not even have a PCP (2) Atrial fibrillation: 05/07/19 -The patient has a history of atrial fibrillation and she tells us that she has been taking Eliquis because of this history. However, she notes that she stopped taking it on her own, before she was advised that it would be safe to do so. Initially, we had planned to restart it, but the patient has said that she will refuse Eliquis. We have asked for a hospitalist consult. 05/08 - Appreciate hospitalist recommendation - Recommend Eliquis 5mg BID, patient agreeable at this time, but reports vague history of "bleeding" on the medication - Recommend holding Mobic while on Eliquis 05/09 - Appreciate hospitalist recommendations - Given reports of bleeding concerns above, may be reasonable to consider 2.5mg BID dosing if issues should arise (3) Hyponatremia: 05/07/19 -The patient's hyponatremia is of unknown etiology. It may be related to persistent poor oral intake. The patient is unable to quantify her typical fluid intake, but admits that she has been drinking "a lot of water." Staff has been alerted to monitor the patient for excessive water intake. We are not aware of a past history of psychogenic polydipsia. -Serial electrolyte levels will be drawn over the weekend and will be monitored. 05/08 - Hospitalist service recommending holding HCTZ - Problem is currently resolved - Na 138 today - Recommending restricting fluid to 2L daily - nursing aware and agreeable to monitoring 05/09 - Sodium of 139 today (4) Alcohol use disorder: 07/07/18 -The patient is not a reliable reporting lead and seems to clearly misrepresent her alcohol use pattern. She does acknowledge that she has a "past" history of alcohol abuse, but initially tells us that she has been alcohol free for a number of months, and then acknowledges that she has recently been drinking wine in limited amounts, while her brother reports that she has been drinking heavily. -The patient is aware that it is dangerous for her to be drinking alcohol and she tells us that she is committed to abstinence. (5) DM type 2 (diabetes mellitus, type 2): 05/07/19 -Attempt to educate the patient regarding a diabetic diet have so far been unsuccessful. She insists that she should be on a regular diet because her blood sugar is under control, and when we review her serum glucose levels with her she indicates that those are "okay" and that there is no need for special diet. Type 2 diabetes diet has been ordered. -The patient is indicated that she does not wish to take insulin. We have consulted with the glycemic pharmacist. In the meantime, we have restarted metformin 500 mg twice a day, which is the medication and dose that the patient says she will be willing to take. 05/09 - Pt initially was refusing insulin, but last evening verbalized willingness to return to utilizing insulin to manage her blood sugars. - Glycemic pharmacist consultation was converted to an active consult, and patient has been cooperative with treatment Inventory Assets Strengths: The patient recognizes that she has a mental illness. She also recognizes her need for treatment. She has a quick wit and a good sense of humor. She also enjoys being around other people and, for example, specifically asked to have a roommate during her current stay so that she will have "someone to talk to." Patient also has a history of favorable response to antipsychotic and other psychiatric medications. Needs: Improved medication adherence. Resolution of psychotic symptoms. Resolution of perceptual disturbances. Ability to care for her own physical needs outside of a setting that provides the full spectrum of psychiatric services at the hospital level of care. Supportive brother. Risk Factors Assessment Male: No : No Do You Have Access To A Gun?: No Health Problems: Yes Mental Health Diagnoses: Yes Substance Use Disorders: Yes Previous Attempt: Yes Previous Attempt; Highly Lethal: No Previous Attempt; Planned: No Previous Attempt; Didn't Tell Anyone: No Family History of Suicide: No Previous Psychiatric Hospitalization: Yes Hopelessness: No Smoker: Yes Protective Factors Assessment Gnosticism Beliefs: Yes : No Responsible for Young Children: No Employed: No Stable Relationships: Yes Supportive Family: Yes Good Rapport with Provider: No Absence of Any Risk Factors Above: No Interval History Identifying Information TRINA LEMUS is a 53-year-old F who currently lives in a psychiatric shelter in [place] with various others. She has a history of schizoaffective disorder and was admitted on 05/07/19 13:10 on a 201 voluntary commitment because of disorganized and threatening behaviors. Chief Complaint "I'm doing pretty well." Review of Systems Notes Constitutional: denied Cardiovascular: denied Respiratory: denied Gastrointestinal: denied Neurological: denied Psychiatric: denies symptoms other than stated above Total of at least 10 systems reviewed, pertinent positives as above and in HPI. Sleep Information Total Hours of Sleep: 5.5 Meal Information Percent Meal Consumed - Breakfast: 30 Percent Meal Consumed - Lunch: 50 Percent Meal Consumed - Dinner: 100 Subjective Subjective Patient was seen & assessed and interval progress reviewed with nursing and social work. Staff report the patient has been rather pleasant on the unit, and has been attending group regularly. She rated her mood a 7/10 and "curious and cautious" last evening. Pt was seen today to assess progress since admission. She states she is feeling "pretty well." Pt states that she would like to have another roommate here on the unit if possible, as her current roommate is being discharge. She states, "I don't like to be on my own." Pt states that her thoughts are racing "a little less", and that she feels "more calmer, more reasonable." Pt denies any thoughts to harm herself or others. She denies any unclear thoughts, or bizarre beliefs at this time. She denies other needs or concerns today. Physical Exam Psychiatric Orientation: alert, oriented x 3 and cooperative (and pleasant) Apperance: appropriately dressed (in sweater and scrub pants), + disheveled (mildly) and appeared stated age Eye Contact: good eye contact Motor Behavior: steady gait and station (ambulates with cane) and no abnormal motor movements Speech: normal rate/rhythm/volume of speech Affect: + blunted affect (mildly subdued, not appearing overtly depressed) Mood: no depressed mood ("feeling pretty well") Thought Process: goal directed thought process and clear/coherent thought process Thought Content: reality based without delusions Suicidal Thoughts: denies suicidal thoughts and denies suicidal intent Homicidal Thoughts: denies homicidal thoughts Hallucinations: no auditory hallucinations and no visual hallucinations Cognition: attention grossly intact and language grossly intact Insight: + fair insight Judgement: + fair judgement Vital Signs (Past 24 Hours) Last Vital Signs Temp 37.5 C 05/09/19 06:37 Pulse 89 05/09/19 06:38 Resp 18 05/09/19 06:37 BP 133/85 05/09/19 06:38 Results & Data Laboratory Results Laboratory Results - last 24 hr 05/08/19 05/08/19 05/09/19 18:10 20:44 07:01 Sodium 139 Potassium 3.4 L Chloride 105 Carbon Dioxide 28 Anion Gap 6.0 POC Glucose 156 H 175 H 05/09/19 08:02 Sodium Potassium Chloride Carbon Dioxide Anion Gap POC Glucose 117 H Current Inpatient Medications Current Inpatient Medications: Current Inpatient Medications Acetaminophen (Tylenol) 650 mg PO Q4H PRN PRN Reason: Headache or Minor Fever Stop: 06/06/19 13:50 Al Hydrox/Mg Hydrox/Simethicone (Maalox) 30 ml PO Q4H PRN PRN Reason: GI Upset Stop: 06/06/19 13:50 Apixaban (Eliquis) 5 mg PO BID CARLOS Stop: 05/09/19 22:00 Last Admin: 05/09/19 08:30 Dose: 5 mg Documented by: Apixaban (Eliquis) 5 mg PO BID CARLOS Stop: 06/09/19 08:59 Bismuth Subsalicylate (Kaopectate) 15 ml PO PRN PRN PRN Reason: Loose Stool Stop: 06/06/19 13:50 Dextrose (Dextrose 50%) 25 - 50 ml IV UD PRN; Protocol PRN Reason: Hypoglycemia Protocol Stop: 06/07/19 18:14 Diltiazem HCl (Cardizem Cd) 300 mg PO DAILY [facility] Stop: 06/07/19 08:59 Last Admin: 05/09/19 08:30 Dose: 300 mg Documented by: Glucagon (Glucagen) 1 mg SQ UD PRN; Protocol PRN Reason: Hypoglycemia Protocol Stop: 06/07/19 18:14 Glucose (Glucose 40%) 15 - 30 gm PO UD PRN; Protocol PRN Reason: Hypoglycemia Protocol Stop: 06/07/19 18:14 Glucose (Dex4 Glucose) 4 - 8 tabs PO UD PRN; Protocol PRN Reason: Hypoglycemia Protocol Stop: 06/07/19 18:14 Hydrochlorothiazide (Hctz) 12.5 mg PO DAILY [facility] Stop: 06/07/19 08:59 Last Admin: 05/08/19 08:47 Dose: 12.5 mg Documented by: Hydroxyzine HCl (Vistaril) 50 mg PO HSZ PRN PRN Reason: Insomnia Stop: 06/06/19 13:50 Hydroxyzine HCl (Vistaril) 25 mg PO Q4H PRN PRN Reason: Anxiety Stop: 06/06/19 13:50 Insulin Aspart (Novolog Flexpen) 0 units SC ACHS CARLOS Stop: 06/07/19 17:59 Last Admin: 05/09/19 08:33 Dose: 2 units Documented by: Lactulose (Chronulac) 20 gm PO DAILY PRN PRN Reason: Constipation Magnesium Hydroxide (Milk Of Magnesia) 30 ml PO DAILY PRN PRN Reason: Constipation Stop: 06/06/19 13:50 Magnesium Oxide (Mag-Ox) 400 mg PO QAM [facility] Stop: 06/07/19 12:59 Last Admin: 05/09/19 08:31 Dose: 400 mg Documented by: Metformin HCl (Glucophage Er) 500 mg PO BIDM CARLOS Stop: 06/06/19 17:44 Last Admin: 05/09/19 08:40 Dose: Not Given Documented by: Miscellaneous (Carbohydrates For Hypoglycemia) 15 - 30 gm PO UD PRN PRN Reason: Hypoglycemia Treatment Stop: 06/07/19 18:14 Miscellaneous Information (Consult Glycemic Management Pharmacy) 1 ea N/A UD PRN PRN Reason: Consult Stop: 06/06/19 15:02 *Fluticasone/Salmeterol*Non-Form Patient's Own Med 1 ea INH BID [facility]LOS Stop: 06/06/19 21:29 Last Admin: 05/09/19 08:30 Dose: 1 inha Documented by: Pantoprazole Sodium (Protonix) 40 mg PO DAILY [facility] Stop: 06/07/19 08:59 Last Admin: 05/09/19 08:31 Dose: 40 mg Documented by: Perphenazine (Trilafon) 8 mg PO HS CARLOS Stop: 06/06/19 21:59 Last Admin: 05/08/19 21:30 Dose: 8 mg Documented by: Perphenazine (Trilafon) 4 mg PO DAILY [facility] Stop: 06/07/19 08:59 Last Admin: 05/09/19 08:31 Dose: 4 mg Documented by: Sodium Chloride ([place] Nasal) 1 - 2 sprays NA PRN PRN PRN Reason: Nasal Dryness/Congestion Stop: 06/06/19 13:50 Trazodone HCl (Desyrel) 200 mg PO HS PRN PRN Reason: Sleep Stop: 06/06/19 14:38 Valsartan (Diovan) 320 mg PO DAILY [facility] Stop: 06/07/19 08:59 Last Admin: 05/08/19 08:47 Dose: 320 mg Documented by: Mental Health & Subst Abuse Tx Therapist Name of Therapist: n/a Travel Med Surg Rn Name of Travel Med Surg Rn: Aria Webster Post Discharge Appointments Primary Care Physician Name Of Family Doctor: Yovani Arellano (1) DM type 2 (diabetes mellitus, type 2) Diabetes mellitus complication status: with other specified complication Diabetes mellitus terminal carman insulin use: unspecified [facility] insulin use status Qualified Code(s): E11.69 - Type 2 diabetes mellitus with other specified complication (2) Schizoaffective disorder Schizoaffective disorder type: unspecified Qualified Code(s): F25.9 - Schizoaffective disorder, unspecified
--- NOTE | 2019-05-09 13:35 | Pharmacy Report ---
Glycemic Control Progress Note - Date of Service May 09, 2019 - Scope Glycemic Pharmacist consulted for glycemic control to write orders per [facility] inpatient glycemic control protocol. - Objective Accuchecks BSG(last 24 hours):: 05/08/19 05/08/19 05/09/19 18:10 20:44 08:02 POC Glucose 156 H 175 H 117 H - Recent Pertinent Medications The patient is currently receiving: * Basal insulin: Lantus -- units every -- hours * Correctional Insulin: Novolog Correction per scale ACHS Goal Range: Low 110 mg/dL - High 140 mg/dL Correction Factor: 20 mg/dL/unit * Prandial insulin: Per carb ratio of 1 unit per 6 grams CHO consumed - Outpatient Anti-Diabetic Meds UNCERTAIN (PERHAPS JUST BOLUS INSULIN) - Assessment & Plan ASSESSMENT: * See progress note from 05/08/19 for more background info, in short: * Pt receiving SQ basal bolus insulin regimen for hyperglycemia secondary to baseline DM (outpatient regimen on hold). Patient was receiving metformin ER since she refused infusion. Now patient refuses metformin. * Patient is currently receiving an average of 2 units of insulin per day * 0 units of basal insulin * 2 units of prandial/correctional insulin * BSGs ranging 122 - 175 mg/dl over the past 24hrs * Changes needed to insulin regimen: * AM Fasting BSG = 117 mg/dl. This is in goal range for patient based on inpatient targets and co-morbidities. Therefore Basal insulin will not be ordered that this point. * Post-prandial BSGs trended downwards at lunch. Loosen both parameters. * Total daily dose = <10 units. * Additional notes / comments: d/c metformin as patient refuses PLAN FOR INPATIENT GLYCEMIC CONTROL: * LOOSENING correction factor to 25 mg/dl/unit * LOOSENING carb ratio to 1 unit per 8 grams CHO consumed * Continuing goal range of Low 110 mg/dL - High 140 mg/dL * Please note that the plan above was derived based on current level of insulin resistance and hospital stress. These recommendations are appropriate for inpatient admission only. Plan of care upon discharge will need to be reassessed to avoid potential outpatient hypo/hyperglycemia. Thank you.
--- NOTE | 2019-05-09 17:07 | Hospitalist Progress Note ---
Date of Service May 09, 2019 Assessment & Plan (1) Atrial fibrillation: Chronic a-fib. On Eliquis -however hx of noncompliance w/ meds - in addition pt refuses taking Eliquis 5 mg bid (states that she had bleeding from multiple sites while on it), per review of her med. record, she is p rescribed Eliquis 5 mg only once a day, and there is reported hx of hemorrhage, will contact pt's PCP on Friday to clarify this - she is willing to take Eliquis 5 mg once a day, so for now, recommend to continue with that - previously reportedly LE edema R>L, unable to observe this on my exam, will try again tmrw and see if pt lets me examine her while her legs are undressed -Continue diltiazem, however monitor BP closely, may need to consider lowering dose if hypotensive -Hold Mobic while on Eliquis (2) Hyponatremia: Resolved. Na: 139 today -Recommend fluid restriction at 2L daily -Hold HCTZ (3) Hypokalemia: K: 3.4 -Replace and monitor (4) Hypomagnesemia: Magnesium: 1.6 on 05/07/19 -Recommend daily replacement with magnesium 400mg (5) HTN (hypertension): Has been stable Valsartan has been on hold during hospitalization -Continue diltiazem -Recommend holding valsartan as BP's controlled -Hold HCTZ with recent hyponatremia (6) COPD (chronic obstructive pulmonary disease): -Continue home inhalers (7) DM type 2 (diabetes mellitus, type 2): - pharm consulted and cont. to follow (8) Schizoaffective disorder: -Plan per psychiatry DVT Prophylaxis -On Eliquis Thank you for this consultation. You can reach a member of the [facility] Hospitalist Team 20/01 via pager @ [phone]. Subjective Patient is pleasant, in no acute distress, denies any fevers, chills, chest pain, shortness of breath, palpitations, abdominal pain, nausea or vomiting. She says that she eats well, and she voids and has bowel movement without any difficulty. Review of Systems Review of Systems: All systems reviewed & are unremarkable except as noted in HPI & below Constitutional: no fever, no chills, no body aches and no fatigue Respiratory: no cough and no dyspnea Cardiovascular: no chest pain, no dyspnea on exertion, no palpitations and no edema Gastrointestinal: no abdominal pain, no nausea and no vomiting Physical Exam Physical Exam: Patient let me examine her, fully dressed. General: no distress, WD/WN Head: normocephalic, atraumatic Eyes: PERRL, EOMI, conjunctiva non-injected, anicteric sclerae ENT: normal inspection external ears, nose, mucous membranes moist Neck: supple, trachea midline Lungs: clear, no respiratory distress, no wheezing/rhonchi/rales CV: RRR, no murmur Abd: normal BS, soft, obese, non-tender,nondistended, no guarding Ext: no cyanosis, no calf tenderness Neuro: A&O x 3, no focal deficits noted, moves all 4 extremities spontaneously Skin: warm, dry Results & Data Vital Signs (Past 12 Hours) Vital Signs Temp Pulse Resp BP 05/09/19 06:38 89 133/85 05/09/19 06:37 37.5 C 80 18 114/71 Laboratory Results 05/09/19 05/09/19 05/09/19 Range/Units 20:06 17:10 12:44 Sodium (136-145) mmol/L Potassium (3.5-5.1) mmol/L Chloride (98-107) mmol/L Carbon Dioxide (21-32) mmol/L Anion Gap (3-11) POC Glucose 145 H 176 H 113 H (70-99) 05/09/19 05/09/19 Range/Units 08:02 07:01 Sodium 139 (136-145) mmol/L Potassium 3.4 L (3.5-5.1) mmol/L Chloride 105 (98-107) mmol/L Carbon Dioxide 28 (21-32) mmol/L Anion Gap 6.0 (3-11) POC Glucose 117 H (70-99) Medications Administered Current Inpatient Medications Acetaminophen (Tylenol) 650 mg PO Q4H PRN PRN Reason: Headache or Minor Fever Stop: 06/06/19 13:50 Al Hydrox/Mg Hydrox/Simethicone (Maalox) 30 ml PO Q4H PRN PRN Reason: GI Upset Stop: 06/06/19 13:50 Apixaban (Eliquis) 5 mg PO DAILY [facility] Stop: 06/09/19 08:59 Bismuth Subsalicylate (Kaopectate) 15 ml PO PRN PRN PRN Reason: Loose Stool Stop: 06/06/19 13:50 Dextrose (Dextrose 50%) 25 - 50 ml IV UD PRN; Protocol PRN Reason: Hypoglycemia Protocol Stop: 06/07/19 18:14 Diltiazem HCl (Cardizem Cd) 300 mg PO DAILY [facility] Stop: 06/07/19 08:59 Last Admin: 05/09/19 08:30 Dose: 300 mg Documented by: Glucagon (Glucagen) 1 mg SQ UD PRN; Protocol PRN Reason: Hypoglycemia Protocol Stop: 06/07/19 18:14 Glucose (Glucose 40%) 15 - 30 gm PO UD PRN; Protocol PRN Reason: Hypoglycemia Protocol Stop: 06/07/19 18:14 Glucose (Dex4 Glucose) 4 - 8 tabs PO UD PRN; Protocol PRN Reason: Hypoglycemia Protocol Stop: 06/07/19 18:14 Hydrochlorothiazide (Hctz) 12.5 mg PO DAILY [facility] Stop: 06/07/19 08:59 Last Admin: 05/08/19 08:47 Dose: 12.5 mg Documented by: Hydroxyzine HCl (Vistaril) 50 mg PO HSZ PRN PRN Reason: Insomnia Stop: 06/06/19 13:50 Hydroxyzine HCl (Vistaril) 25 mg PO Q4H PRN PRN Reason: Anxiety Stop: 06/06/19 13:50 Insulin Aspart (Novolog Flexpen) 0 units SC ACHS REPLACED BY [facility] Stop: 06/07/19 17:59 Last Admin: 05/09/19 21:31 Dose: 4 units Documented by: Lactulose (Chronulac) 20 gm PO DAILY PRN PRN Reason: Constipation Magnesium Hydroxide (Milk Of Magnesia) 30 ml PO DAILY PRN PRN Reason: Constipation Stop: 06/06/19 13:50 Magnesium Oxide (Mag-Ox) 400 mg PO QAM REPLACED BY [facility] Stop: 06/07/19 12:59 Last Admin: 05/09/19 08:31 Dose: 400 mg Documented by: Miscellaneous (Carbohydrates For Hypoglycemia) 15 - 30 gm PO UD PRN PRN Reason: Hypoglycemia Treatment Stop: 06/07/19 18:14 Miscellaneous Information (Consult Glycemic Management Pharmacy) 1 ea N/A UD PRN PRN Reason: Consult Stop: 06/06/19 15:02 *Fluticasone/Salmeterol*Non-Form Patient's Own Med 1 ea INH BID [facility] Stop: 06/06/19 21:29 Last Admin: 05/09/19 21:28 Dose: 1 inha Documented by: Pantoprazole Sodium (Protonix) 40 mg PO DAILY [facility] Stop: 06/07/19 08:59 Last Admin: 05/09/19 08:31 Dose: 40 mg Documented by: Perphenazine (Trilafon) 8 mg PO HS [facility] Stop: 06/06/19 21:59 Last Admin: 05/09/19 21:28 Dose: 8 mg Documented by: Perphenazine (Trilafon) 4 mg PO DAILY [facility] Stop: 06/07/19 08:59 Last Admin: 05/09/19 08:31 Dose: 4 mg Documented by: Sodium Chloride ([place] Nasal) 1 - 2 sprays NA PRN PRN PRN Reason: Nasal Dryness/Congestion Stop: 06/06/19 13:50 Trazodone HCl (Desyrel) 200 mg PO HS PRN PRN Reason: Sleep Stop: 06/06/19 14:38 Valsartan (Diovan) 320 mg PO DAILY [facility] Stop: 06/07/19 08:59 Last Admin: 05/08/19 08:47 Dose: 320 mg Documented by: (1) DM type 2 (diabetes mellitus, type 2) Diabetes mellitus complication status: with other specified complication Diabetes mellitus senior care insulin use: unspecified buttermaker continuous churn insulin use status Qualified Code(s): E11.69 - Type 2 diabetes mellitus with other specified complication (2) Schizoaffective disorder Schizoaffective disorder type: unspecified Qualified Code(s): F25.9 - Schizoaffective disorder, unspecified (3) HTN (hypertension) Hypertension type: unspecified Qualified Code(s): I10 - Essential (primary) hypertension
[2019-05-10 06:38] VITALS: TEMP 98.1
[2019-05-10 07:36] LABS: Potassium 3.4 mmol/L (3.5-5.1)
--- NOTE | 2019-05-10 08:48 | Pharmacy Report ---
Pharmacy Glycemic Short Note 2 - Date of Service May 10, 2019 - Glycemic Short BSG Results (Last 24 hours): 05/09/19 05/09/19 05/09/19 12:44 17:10 20:06 POC Glucose 113 H 176 H 145 H 05/10/19 08:24 POC Glucose 143 H OUTPATIENT ANTIDIABETIC REGIMEN: * Lispro 15-18 units TID with meals plus correction of 1:25 for BSG >125 * A1c of 7.1% on 10/12/18 ASSESSMENT: 05/10 * Rebeca's regimen was changed to solely insulin yesterday since she was refusing metformin * She received 16 units of bolus insulin yesterday * BSGs are trending upwards without metformin on board; therefore, will tighten Novolog parameters 05/09 * See progress note from 05/08/19 for more background info, in short: * Pt receiving SQ basal bolus insulin regimen for hyperglycemia secondary to baseline DM (outpatient regimen on hold). Patient was receiving metformin ER since she refused insulin. Now patient refuses metformin. * Patient is currently receiving an average of 2 units of insulin per day * 0 units of basal insulin * 2 units of prandial/correctional insulin * BSGs ranging 122 - 175 mg/dl over the past 24hrs * Changes needed to insulin regimen: * AM Fasting BSG = 117 mg/dl. This is in goal range for patient based on inpatient targets and co-morbidities. Therefore Basal insulin will not be ordered that this point. * Post-prandial BSGs trended downwards at lunch. Loosen both parameters. * Total daily dose = <10 units. * Additional notes / comments: d/c metformin as patient refuses 05/08 * 53 year old T2DM female admitted for psychiatric evaluation. At the time of admission, the patient was refusing insulin therefore she was placed on metformin. Pharmacy was notified 05/08 PM that the patient is now agreeable to insulin therapy. * Patient is known the the pharmacy glycemic service from previous admissions. It is unclear if she currently is on basal insulin at home. She is unable to confirm this. At the time of her November 2018 admission she was on basaglar 60 units SQ qHS. She was evaluated in the ED in December. During her December visit her med rec reflected bolus insulin only (lispro). Of note, patient has lost ~40 lbs since December. * Since fasting BSG is at goal despite administration of no insulin yesterday, I will hold off on basal insulin until further BSG data is available. * Will manage with Novolog per correction factor and carb ratio and reassess on 05/09 AM. PLAN FOR INPATIENT GLYCEMIC CONTROL: * Basal insulin * Continue without at this time; consider adding if fasting BSG remains > 140 * Bolus insulin - tighten CR * NovoLog per scale ACHS or Q6hrs while NPO * Goal Range: Low 110 mg/dL - High 140 mg/dL * Correction Factor: 25 mg/dL/unit * Nutritional / Prandial insulin per carb ratio of 1 unit per 6 grams CHO consumed PLAN FOR DISCHARGE: * Waiting on updated A1c -> ordered for 05/11
[2019-05-10] MEDS: dilTIAZem HCL 300 MG CAPCR PO SCH (08:52)
[2019-05-10] MEDS: MAGNESIUM OXIDE 400 MG TAB PO SCH (08:53)
[2019-05-10] MEDS: PERPHENAZINE 2 MG TABLET PO SCH (08:54)
[2019-05-10] MEDS: [UNRECOGNIZED DRUG - REMARK] INH SCH (08:54)
[2019-05-10] MEDS: PANTOprazole 40 MG TAB PO SCH (08:54)
[2019-05-10] MEDS: INSULIN ASPART 100 UNITS/ML 3 ML PEN SC SCH (08:58)
[2019-05-10] MEDS ORDERED: POTASSIUM CHLORIDE 20 MEQ TABCR PO ONE (09:00)
[2019-05-10] MEDS ORDERED: APIXABAN 5 MG TABLET PO SCH ×2 (09:00)
--- NOTE | 2019-05-10 10:20 | Discharge Summary ---
Date of Service May 10, 2019 History of Present Illness Rebeca Judge is a 53-year-old female who is admitted for correction and monitoring of sodium levels after being found to be hyponatremic in the ED. Patient reportedly presented due to feeling unsafe at home, with documentation suggesting that someone encouraged the patient to present to the ED. Patient has a long history of schizoaffective disorder, as well as prior diagnoses of anxiety, antisocial personality features, malingering, and polysubstance abuse. She also has a long history of medication non-adherence. Most recently, patient has been prescribed perphenazine to target paranoia and hallucinations. This is not listed on her home medication list, but the patient acknowledges at the time of her admission to the [facility] (today) that she has been non-adherent. According to the patient's family, the patient has been walking the streets while holding a knife in her hand and has been claiming that she is being followed or persecuted by unknown persons in the community. The patient tells us that she has a diagnosis of schizoaffective disorder and realizes that she is supposed to be taking psychiatric medications. She also acknowledges that she has a history of drug and alcohol misuse, but tends to minimize or misrepresent the truth. For example, she initially said that she has been abstinent from drugs and alcohol for at least "7 months." However, when it was pointed out to her that she had presented several months ago with a positive tox screen for cocaine the patient admitted that she had, in fact, used "some drugs" over the summer. Also, when she was told that we had her do that she had been drinking significant quantities of wine, the patient acknowledges that she "may have taken a little bit" recently in order to "get off the hard stuff." (The patient's brother has reported that he believes that she is d rinking substantial quantities of wine on a daily basis.) According to the patient, in the past she has experienced racing thoughts and describes these thoughts as "going so fast across my head that I cannot remember from 1 minute to the next what I was thinking about." She also acknowledges that, at times, she experiences auditory hallucinations, but says neither racing thoughts nor perceptual disturbances have occurred recently. Patient also tells us that she believes that she has special rodgers. These rodgers include which she refers to as "the power of discernment," by which she tells us she means that she is able to correctly see into the future and predict what is about to happen. She also notes that she has "bionic ears" and references being able to hear things that are coming from remote distances. This latter assertion occurs within the context of her insisting that she has not recently experienced auditory hallucinations, but would clearly seemed indicate that what she is describing are auditory hallucinations. Previous Psych Admissions: Numerous inpatient psychiatric hospitalizations, facilities include [facility], and [facility] Physical Exam Psychiatric Orientation: alert, oriented x 3 and cooperative (And pleasant) Apperance: appropriately dressed, appropriately groomed and appeared stated age Eye Contact: good eye contact Motor Behavior: steady gait and station (Ambulates with assistance from a cane) and no abnormal motor movements Speech: normal rate/rhythm/volume of speech Affect: euthymic affect Mood: no depressed mood ("I am feeling calmer, my whole inner self is calmer") and no anxious mood Thought Process: goal directed thought process, clear/coherent thought process and thought association intact Thought Content: reality based without delusions; not paranoid, no persecution, no hopelessness and no worthlessness Suicidal Thoughts: denies suicidal thoughts, denies suicidal plan and denies suicidal intent Homicidal Thoughts: denies homicidal thoughts Hallucinations: no auditory hallucinations and no visual hallucinations Cognition: remote memory grossly intact, attention grossly intact and language grossly intact Insight: + fair insight Judgement: + fair judgement Vital Signs (Past 24 Hours) Last Vital Signs Temp 36.7 C 05/10/19 06:35 Pulse 86 05/10/19 06:36 Resp 18 05/10/19 06:35 BP 107/74 05/10/19 06:36 Principal Diagnosis - Schizoaffective disorder - Alcohol use disorder Psychiatric Data 53-year-old female admitted voluntarily for inpatient psychiatric treatment upon transfer from the medical floor. Pt was admitted to the [facility] on 05/07/19 after completing treatment on the medical floor for atrial fibrillation and hyponatremia. Pt was admitted to the medical floor on 05/04/19 - after initially presenting to the ED for mental health evaluation. It was reported by the patient that she did not feel safe at home, believing that someone was out to get her. During ED assessment, it was found patient did not meet criteria for an involuntary psychiatric admission. Her medical concerns warranted an initial medical admission to correction of hyponatremia and medical work-up, and psychiatric consultation was requested to evaluate patient for paranoia and delusions - patient admittedly not compliant with her antipsychotic medications. While inpatient psychiatric admission was recommended, the patient was unwilling for treatment. A 302 petitioning statement was completed based on information gathered from the patient's brother, indicating worsening paranoia, delusional beliefs patient was being followed, and reports patient had been staying in her home carrying a knife - as she was concerned for her safety. 302 petition was denied by [facility] at time of medical clearance; however, it so happened that the [facility] had availability to accept the patient voluntarily - which she did agree to. Pt was restarted on Trilafon 4mg qAM and 8mg qHS upon arrival, and was compliant with her psychiatric and medical treatment regimens. A hospitalist consultation was requested, as patient had not been compliant with most recommendations made on the medical floor. Over the course of the patient's admission, she remained on Trilafon 4mg qAM and 8mg qHS. Her paranoia improved significantly and she eventually denied any delusional thought processes. She was able to participate appropriately in group and recreational programming. Contact was made with her rn field case manager in order to coordinate care. Pt has a significant history of firing, and being fired from, numerous outpatient providers - and her aftercare options have been limited for quite some time. We learned during this admission that the patient had recently fired her PCP and requested her chart be closed. Given medical admission, and adjustments to her treatment regimen, it was recommended that patient see a PCP for continued outpatient treatment. She was eventually agreeable to being seen at her former office for bridge appointments, but by a different provider. She verbalizes continued plan to find another PCP, but following up on calls she has already placed to her insurance company. By the time of discharge, patient's condition had improved rather dramatically. She denied any thoughts of harm to self or others and was able to contract for safety outside of the inpatient psychiatric setting. She denied any paranoia or delusional thought processes. Pt had been requesting discharge, and remained future oriented in conversation. Discharge plan was reviewed with the patient, who verbalized understanding and was agreeable. She will be seen by a PCP for continued treatment of medical and psychiatric concerns. Based on review of patient's case and their current presentation, risk of harm to self or others is no longer perceived to be acute. Management of symptoms on an outpatient basis seems the most appropriate and least restrictive setting. Pt seems appropriate for discharge with recommendation for consistent follow-up with outpatient PCP. Pt verbalized understanding of discharge plan reviewed and is agreeable with plan to be discharged home today. Day of Discharge Assessment Patient's case was reviewed and discussed during treatment team. Staff report the patient has continued to be cooperative on the unit, and has been attending group programming regularly. We have learned that the patient recently closed her chart at her PCP's office, and currently has no follow-up scheduled. Pt was agreeable to seeing another provider at the [facility] in order to bridge her care until she is set up with a new PCP. Patient's rn field case manager was also to be informed of patient's need for aftercare. Despite aftercare concerns, some of which patient has contributed to, her condition has reportedly improved and she is requesting to return home. Pt was seen today to assess readiness for discharge. She states that she is doing well, "already making phone calls" regarding her aftercare and discharge. Pt states that she is feeling much better. She describes her mood as "calmer, my whole inner self is calmer. Even if I wanted to bite, I couldn't." Pt states that she is aware of the need to continue her psychiatric medications - admitting that she stops them at times she is feeling more stable, and admits that this behavioral usually leads to an admission. Pt states, "that won't happen again, not this time." Pt states that her outpatient rn field case manager meets with her at least once a week, and occasionally plans to see her twice a week. We discussed patient's need for aftercare. She was agreeable to being seen at the same office she was established at, but by a different provider. Her medical conditions and discharge recommendations from the hospitalist service were reviewed prior to discharge. Pt denied having any questions or concerns related to her medical and psychiatric treatment. Discharge plan was reviewed, patient verbalized understanding and is agreeable with discharge home today. Pt did receive a final visit from the hospitalist service today. They requested she complete a Doppler of her right calf, to assess for a possible blood clot. Pt was unwilling to complete this study prior to discharge, but agreed to it as an outpatient. Pt was encouraged to ensure she attend her PCP appointment scheduled for 05/12, in order to get this testing ordered and scheduled. She denied other needs at this time. ROS: Constitutional: reports improvement in level of fatigue Cardiovascular: denied Respiratory: denied Gastrointestinal: denied Neurological: denied Psychiatric: denies symptoms other than stated above Total of at least 10 systems reviewed, pertinent positives as above and in HPI. Transition of Care Transition Of Care Record: was reviewed with the patient Advance Directives Advance Directives Information Provided: No Advance Directives: No Mental Health Advance Directive: No Advance Directives on File: No Living Will: No Power of Avionics Electrical Engineer: No Advance Directives Reason:: Declines as Mental Health Visit. Risk Factors Assessment Presenting risk factors reviewed on discharge. Precipitating stressors mitigated by: admission for inpatient psychiatric observation and treatment, appropriate adjustments to medications to target symptoms, [facility] of [facility] groups, development of healthy and effective coping strategies, involvement of outpatient supports, completion of a safety plan, discussion regarding substance abuse and effects on mental health diagnoses, treatment of medical conditions and education on diagnoses. Pt has demonstrated improvement in condition with regard to improvement in clarity of thought, resolution of delusional beliefs and paranoia, demonstration of medication compliance, communication with CM, and scheduling of a PCP follow-up visit to allow for timely follow-up after hospital discharge. At this time, patient is requesting discharge and is no longer considered to be at acute risk of harm to herself or others. Pt will be discharged with recommendation for ongoing outpatient psychiatric treatment. Male: No : No Do You Have Access To A Gun?: No Health Problems: Yes Mental Health Diagnoses: Yes Substance Use Disorders: Yes Previous Attempt: Yes Previous Attempt; Highly Lethal: No Previous Attempt; Planned: No Previous Attempt; Didn't Tell Anyone: No Family History of Suicide: No Previous Psychiatric Hospitalization: Yes Hopelessness: No Smoker: Yes Protective Factors Assessment Orthodox Beliefs: Yes : No Responsible for Young Children: No Employed: No Stable Relationships: Yes Supportive Family: Yes Good Rapport with Provider: No Absence of Any Risk Factors Above: No Tobacco Cessation at Discharge Tobacco Cessation Medication Prescribed at Discharge: Not Applicable/Non-Smoker Total Time Total Time Spent: Greater Than 30 Minutes Total Time Includes: Examination of the patient, Discharge Planning, Medication Reconciliation and Communication with other providers Discharge Data Consultations 05/08/19 07:45 Consult Medical [Consult Internal Medicine] Routine Lab Results 05/07/19 05/08/19 05/08/19 21:01 06:29 08:30 Sodium 138 Potassium 3.4 L Chloride 103 Carbon Dioxide 29 Anion Gap 6.0 POC Glucose 124 H 122 H 05/08/19 05/08/19 05/09/19 18:10 20:44 07:01 Sodium 139 Potassium 3.4 L Chloride 105 Carbon Dioxide 28 Anion Gap 6.0 POC Glucose 156 H 175 H 05/09/19 05/09/19 05/09/19 08:02 12:44 17:10 Sodium Potassium Chloride Carbon Dioxide Anion Gap POC Glucose 117 H 113 H 176 H 05/09/19 05/10/19 05/10/19 20:06 06:54 08:24 Sodium 140 Potassium 3.4 L Chloride 105 Carbon Dioxide 28 Anion Gap 7.0 POC Glucose 145 H 143 H Hospital Course (1) Schizoaffective disorder: 05/07/19 -The patient presents with psychotic symptoms. She appears to be experiencing auditory hallucinations, although she denies that she has been hearing "voices," she also tells us that she has "bionic hears" that allow her to hear conversations that occur at remote distances and that no one else is ab le to hear. The patient also describes the belief that she has "the power of discernment" by which she means that she is able to discern or predict the future. The patient's family reports that the patient has been saying that she feels that she is in danger and has been walking the streets of [place] with a knife. 05/08 - 05/09 - Continue Trilafon 4mg qAM and 8mg qHS per admission orders - patient's condition already appears to be improving - Coordinate with outpatient supports, generally brother Donis is helpful with providing collateral - Coordinate with outpatient rn field case manager - Determine aftercare arrangements, as patient is now stating she does not even have a PCP (2) Atrial fibrillation: 05/07/19 -The patient has a history of atrial fibrillation and she tells us that she has been taking Eliquis because of this history. However, she notes that she stopped taking it on her own, before she was advised that it would be safe to do so. Initially, we had planned to restart it, but the patient has said that she will refuse Eliquis. We have asked for a hospitalist consult. 05/08 - Appreciate hospitalist recommendation - Recommend Eliquis 5mg BID, patient agreeable at this time, but reports vague history of "bleeding" on the medication - Recommend holding Mobic while on Eliquis 05/09 - Appreciate hospitalist recommendations - Given reports of bleeding concerns above, may be reasonable to consider 2.5mg BID dosing if issues should arise (3) Hyponatremia: 05/07/19 -The patient's hyponatremia is of unknown etiology. It may be related to persistent poor oral intake. The patient is unable to quantify her typical fluid intake, but admits that she has been drinking "a lot of water." Staff has been alerted to monitor the patient for excessive water intake. We are not aware of a past history of psychogenic polydipsia. -Serial electrolyte levels will be drawn over the weekend and will be monitored. 05/08 - Hospitalist service recommending holding HCTZ - Problem is currently resolved - Na 138 today - Recommending restricting fluid to 2L daily - nursing aware and agreeable to monitoring 05/09 - Sodium of 139 today (4) Alcohol use disorder: 07/07/18 -The patient is not a reliable heel cutter and seems to clearly misrepresent her alcohol use pattern. She does acknowledge that she has a "past" history of alcohol abuse, but initially tells us that she has been alcohol free for a number of months, and then acknowledges that she has recently been drinking wine in limited amounts, while her brother reports that she has been drinking heavily. -The patient is aware that it is dangerous for her to be drinking alcohol and she tells us that she is committed to abstinence. (5) DM type 2 (diabetes mellitus, type 2): 05/07/19 -Attempt to educate the patient regarding a diabetic diet have so far been unsuccessful. She insists that she should be on a regular diet because her blood sugar is under control, and when we review her serum glucose levels with her she indicates that those are "okay" and that there is no need for special diet. Type 2 diabetes diet has been ordered. -The patient is indicated that she does not wish to take insulin. We have consulted with the glycemic pharmacist. In the meantime, we have restarted metformin 500 mg twice a day, which is the medication and dose that the patient says she will be willing to take. 05/09 - Pt initially was refusing insulin, but last evening verbalized willingness to return to utilizing insulin to manage her blood sugars. - Glycemic pharmacist consultation was converted to an active consult, and patient has been cooperative with treatment Mental Health & Subst Abuse Tx Therapist Name of Therapist: n/a Stock Checkerer Name of Stock Checkerer: Castro Knapp Phone Number for Stock Checkerer: Time of Appointment with Stock Checkerer: *Closed on 05/10* Please call and follow up Case Management Appointment Comment: [id number], [place] [address] Stock Checkerer Release of Information: Obtained, Reviewed and Signed Post Discharge Appointments Primary Care Physician Name Of Family Doctor: Nathanael Velasquez Date of Appointment with PCP: 05/12/19 Time of Appointment with PCP: [phone] Smoking Cessation Counseling Tobacco Cessation Medication Prescribed at Discharge: Not Applicable/Non-Smoker Contact Information Discharge Discharge [address]: [address] [place] [id number] Discharge Plan Discharge Items Patient Disposition: Home - Self-Care Reason For Visit: SCHIZOAFFECTIVE DISORDER Discharge Diagnosis: - Schizoaffective Disorder Condition on Discharge: Fair Activity: Resume your previous activity Non-emergency contact: Primary Care Provider and Electromechanical Equipment Assembler Call non-emergency contact if: you have any medication questions and your symptoms worsen Follow-up/Referrals: Dante Rosario, [Physician] - 05/12/19 9:15 am ( ) PCP,NO [Primary Care Provider] - Diet: Carb Consistent or DM2 Fluids: 2000ml (8 cups) Addtl Attending Provider Instructions: SPECIAL CARE INSTRUCTIONS: 1. You have a PCP appointment scheduled for Friday, 05/12 and 09:15am. If unable to keep an appointment, please call to reschedule. 2. Take your medication only as prescribed. Medication should not be changed or stopped without the approval of your doctor. In the event of worsening symptoms or concerns about side effects, contact your doctor immediately. 3. Utilize new healthy coping skills, anger management skills, and stress management skills learned during your hospitalization. Journal feelings and process them with a support person. Identify stressors or situations that may result in relapse, deterioration or inappropriate behaviors and develop a plan to deal with those issues. 4. If your coping skills are ineffective and you are in crisis, contact your outpatient providers for direction. If unable to reach your providers, please call the CAN HELP LINE AT or go to the closest Emergency Room. 5. Avoid alcohol and un-prescribed drugs. 6. You have been provided with the Mental Health Advance Directives Pamphlet for your review. AFTERCARE APPOINTMENTS: * Please call your insurance company prior to your scheduled appointment to confirm your aftercare providers are covered. Take your insurance information to your appointments. WHO TO CALL AND WHEN: Medical Emergencies: For questions or emergencies related to your hospital stay, please contact the Inpatient Behavioral Health Unit at [phone]. A data analytics specialist is on-call 20/01 for the Behavioral Health Unit for emergencies At any time you feel your situation is an emergency, you may also call 911 immediately. Your Discharge Instructions noted above were prepared by provider JOSE A Winn Urgent Care Technician Provider Instructions: Treatment Recommendations per Hospitalist Consult Team: - Atrial fibrillation: it is recommended you continue Eliquis. You agreed to taking 2.5mg twice a day during inpatient discussions. This prescription was sent to your pharmacy, and should be continued after discharge. - Low Sodium: your sodium improved to normal levels during your treatment. It is recommended you STOP TAKING HYDROCHLOROTHIAZIDE after discharge. Restrict your fluid/water intake to 2 liters after discharge. - Low Potassium: your potassium level improved during you hospitalization. Continue healthy and regular diet schedule and follow up with your PCP. - Low Magnesium: it is recommend you continue to take magnesium supplements after discharge. Take 400mg supplements daily, they were sent to your pharmacy. - High Blood Pressure: Continue diltiazem, discontinue valsartan and hydrochlorothiazide - Diabetes Medication Management: it is recommended you take 30 units of insulin glargine each evening - The hospitalist team is recommending you have a Doppler US to assess swelling of your right calf. Follow-up with your PCP about having this testing done on an outpatient basis, as you declined having the testing done during your inpatient stay. PLEASE ENSURE YOU WORK WITH YOUR SLIP COVER CUTTER TO SCHEDULE WITH A FAMILY DOCTOR, THEY WILL CONTINUE TO ADDRESS THESE MEDICAL CONCERNS. UNTIL THEN, YOU ARE TO MEET WITH A PCP ON 05/12 AT 09:15. Pending Studies at Discharge: No Stand-Alone Forms: My [facility], Smoking Cessation Medications and DC Order Prescriptions: New apixaban 2.5 mg tablet 2.5 mg PO BID 30 Days Qty: 60 RF: 0 trazodone 100 mg Tablet 200 mg PO HS PRN (Reason: insomnia) 30 Days Qty: 60 RF: 0 magnesium oxide 400 mg (241.3 mg magnesium) Tablet 400 mg PO QAM 30 Days Qty: 30 RF: 0 perphenazine 4 mg tablet 4 mg PO UD 30 Days Qty: 45 RF: 0 Lantus U-100 Insulin 100 unit/mL Solution 30 unit subcut HS 30 Days Qty: 9 RF: 0 Continued valacyclovir 500 mg Tablet 500 mg PO QAM RF: 0 omeprazole 20 mg Tablet,Delayed Release (Dr/Ec) 20 mg PO DAILY RF: 0 lactulose [Constulose] 10 gram/15 mL solution 30 ml PO DAILY PRN (Reason: Constipation) RF: 0 diltiazem HCl [Cartia XT] 300 mg capsule,extended release 24hr 300 mg PO DAILY RF: 0 fluticasone propion-salmeterol 232-14 mcg/actuation Aerosol Powdr Breath A ctivated 1 puff INHALATION BID RF: 0 Discontinued trazodone 100 mg Tablet 200 mg PO HS PRN (Reason: Sleep) RF: 0 valsartan 320 mg Tablet 320 mg PO DAILY RF: 0 meloxicam [Mobic] 15 mg Tablet 15 mg PO DAILY RF: 0 Eliquis 5 mg Tablet 5 mg PO DAILY RF: 0 perphenazine 8 mg Tablet 8 mg PO BID RF: 0 hydrochlorothiazide 12.5 mg Tablet 12.5 mg PO DAILY RF: 0 Discharge Orders: Discharge Order (Routine); Ordered 05/10/19 Ordered By: Petty Melchor Admission Data Admit Date/Time: 05/07/19 13:10 Attending Provider: Aroldo Stubbs Admit Provider: Aroldo Stubbs Primary Care Provider: PCP,NO Other Providers: Hal Dias Other Interventions: Discharge Summary Assessment (RN) Last Done: 05/10/19 10:45 PSY Interdisciplinary Discharge Planning Last Done: 05/10/19 11:54 DC Date/Time DO NOT enter until pt leaves facility: 05/10/19 12:12 Coding Level of Care Code 20575 D/C day mgmt > 30 min Diagnoses Schizoaffective disorder F25.9 Schizoaffective disorder type: unspecified Atrial fibrillation I48.91 Hyponatremia E87.1 Alcohol use disorder DM type 2 (diabetes mellitus, type 2) E11.69 Diabetes mellitus complication status: with other specified complication 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
[2019-05-10 10:47] VITALS: BP 133/85; PULSE 94
--- NOTE | 2019-05-10 12:16 | Hospitalist Progress Note ---
Date of Service May 10, 2019 Assessment & Plan (1) Atrial fibrillation: Chronic a-fib. On Eliquis -however hx of noncompliance w/ meds - in addition pt refuses taking Eliquis 5 mg bid (states that she had bleeding from multiple sites while on it), per review of her med. record, she is p rescribed Eliquis 5 mg only once a day, and there is reported hx of hemorrhage, will contact pt's PCP on Friday to clarify this (it seems like her PCP is currently on vacation however we were able to confirm appointment at their office for May 12) - she is willing to take Eliquis 5 mg once a day, so for now, recommend to continue with that - previously reportedly LE edema R>L, which I was able to observe on my exam today as well, patient says this is chronic (however she is not a good historian, see previous medicine note/psych note), previously it was also recommended to do a Doppler on her right lower extremity, which she refused. Discussed this with her again today, she refuses to have a study done today however she is willing to get the study done as outpatient in the next couple of days. She also says that she already had Doppler done previously, however she cannot tell me when it was, and I could not confirm this in our medical record) She has an appointment set up for May 12, in 2 days, at her PCPs office, at that time Eliquis dose and possible Doppler can be discussed again -Continue diltiazem, however monitor BP closely, may need to consider lowering dose if hypotensive -Hold Mobic while on Eliquis (2) Hyponatremia: Resolved. Na: 140 today -Recommend fluid restriction at 2L daily -Hold HCTZ (3) Hypokalemia: K: 3.4 -Replace and monitor (4) Hypomagnesemia: Magnesium: 1.6 on 05/07/19 -Recommend daily replacement with magnesium 400mg (5) HTN (hypertension): Has been stable Valsartan has been on hold during hospitalization -Continue diltiazem -Recommend holding valsartan as BP's controlled -Hold HCTZ with recent hyponatremia (6) COPD (chronic obstructive pulmonary disease): -Continue home inhalers (7) DM type 2 (diabetes mellitus, type 2): - pharm consulted and cont. to follow (8) Schizoaffective disorder: -Plan per psychiatry DVT Prophylaxis -On Ryan Thank you for this consultation. You can [facility] a [facility] via pager @ [phone]. Subjective Patient is comfortably sitting in the chair, willing to be examined in her room, denies any fevers, chills, chest pain, shortness of breath, abdominal pain, nausea, vomiting. Says that she eats well and currently does not have any concerns. Discussed her potassium supplement, says that she usually takes potassium and has some at home. Also discussed with her and her primary/psych team, prior concern of DVT in her right lower extremity. It was noted, on the previous examination that her right lower extremity was little more swollen, and ultrasound was recommended. She refused the exam at the time. Now she tells me that she already had the exam done and she does not have a clot, however she cannot tell me when it was done and I cannot confirm that in our medical records. Discussed with her again to repeat ultrasound and patient is very clear that she does not want to have the test done today. She says that she could possibly have it done as outpatient in the next couple of days. The problem is that she does not wish to follow-up with her current PCP, I asked her to see somebody else from the office then. She seemed to be agreeable to that. Called her PCP office, patient has appointment scheduled for May 12, [address] Holbrook at 9:15. Review of Systems Review of Systems: All systems reviewed & are unremarkable except as noted in HPI & below Constitutional: no fever, no chills and no fatigue Respiratory: no cough, no dyspnea and no pain on inspiration Cardiovascular: + edema (mild RLE edema (R calf >L calf)); no chest pain and no palpitations Gastrointestinal: no abdominal pain, no nausea and no vomiting Physical Exam Physical Exam: Patient let me examine her today and was ok to lift her trousers to examine her calves closely. General: no distress, WD/WN Head: normocephalic, atraumatic Eyes: PERRL, EOMI, conjunctiva non-injected, anicteric sclerae ENT: normal inspection external ears, nose, mucous membranes moist Neck: supple, trachea midline Lungs: clear, no respiratory distress, no wheezing/rhonchi/rales CV: RRR, no murmur Abd: normal BS, soft, obese, non-tender,nondistended, no guarding Ext: no cyanosis, no calf tenderness, R calf slightly more edematous than L calf (patient says this is chronic) Neuro: A&O x 3, no focal deficits noted, moves all 4 extremities spontaneously Skin: warm, dry Results & Data Vital Signs (Past 12 Hours) Vital Signs Temp Pulse Pulse Pulse Resp BP BP 05/10/19 10:45 36.7 C 89 94 H 86 18 133/85 107/74 05/10/19 06:36 86 107/74 05/10/19 06:35 36.7 C 101 H 18 121/85 Laboratory Results 05/10/19 05/10/19 05/09/19 Range/Units 08:24 06:54 20:06 Sodium 140 (136-145) mmol/L Potassium 3.4 L (3.5-5.1) mmol/L Chloride 105 (98-107) mmol/L Carbon Dioxide 28 (21-32) mmol/L Anion Gap 7.0 (3-11) POC Glucose 143 H 145 H (70-99) 05/09/19 05/09/19 Range/Units 17:10 12:44 Sodium (136-145) mmol/L Potassium (3.5-5.1) mmol/L Chloride (98-107) mmol/L Carbon Dioxide (21-32) mmol/L Anion Gap (3-11) POC Glucose 176 H 113 H (70-99) (1) DM type 2 (diabetes mellitus, type 2) Diabetes mellitus complication status: with other specified complication Diabetes mellitus [facility] insulin use: unspecified 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
[2019-05-10] MEDS ORDERED: INSULIN GLARGINE SOLOSTAR 100 UNITS/ML 3 ML PEN SC SCH (22:00)
== END 2019-05-10 12:12 | disposition home or self-care (01) | DRG 885 ==
LOC: 3S 13:10

== ENCOUNTER 2019-08-17 17:36 | Observation (INO) ==
[2019-08-17 20:58] LABS: INR 1.7 (0.9-1.1); Prothrombin Time 16.6 Seconds (9.0-12.0)
[2019-08-17] MEDS ORDERED: ALBUMIN 25% 50 ML IV ONE (21:34)
[2019-08-17] MEDS ORDERED: SODIUM CHLORIDE 0.9% 500 ML IV ONE (21:42)
[2019-08-17] MEDS ORDERED: OXYCODONE HCL IR 5 MG TAB (IMMEDIATE RELEASE) PO PRN (21:43)
[2019-08-17] MEDS ORDERED: ACETAMINOPHEN 325 MG TAB PO PRN (21:43)
--- NOTE | 2019-08-17 21:44 | Emergency Department Note ---
Entered by Alyce Solo acting as a scribe for Gloria Johnson DO History of Present Illness General Chief complaint: Abnormal Labs/Diagnostic Testing Stated complaint: ABNORMAL BLOODWORK, ABD PAIN Time Seen by Provider: 08/17/19 19:56 Source: patient History of Present Illness Provider complaint: abnormal blood work results Onset (ago): hour(s) Location: left and right Maximum Pain Intensity: 9 Quality: + other (abnormal blood work results ) Associated symptoms: + nausea/vomiting (Vomiting mucous) and + other (Positive yellow eyes; Positive itchyness; Positive dark and bloody stools; Positive abdominal pain; Positive abdomen bloating; Positive abdomen distended; Positive leg swelling;); no fever/chills Treatments prior to arrival: other (Lasix) The patient, who is a 53 year old female with a medical history of elevated troponin, hyponatremia and diabetes, presents to the Emergency Room with complaints of abnormal blood work results that were done today. The patient notes that her kidney results were low, liver enzymes were high and red and white blood cell were very high. Pt states she had blood work and an US performed this morning as an outpatient. The patient states that someone noticed her eyes are yellow. The patient notes that she has been itchy throughout her body. The patient informs that she is vomiting up mucous and has had small dark sometimes bloody bowel movements four times a day. The patient expresses that she feels like her abdomen is bloated and distended. The patient notes has abdominal pain across the center of her abdomen. The patient denies fever. The patient informs that she has had leg swelling for some time. The patient notes that she is on Lasix once a day that has not improved this symptom. The patient states that a couple of weeks ago she was suppose to have a cholecystectomy however this did not happen. The patient denies any kidney i ssues but states that her current symptoms could be related to her gallbladder. The patient reports that her father had renal disease. The patient informs that doesn't know the results of the ultrasound. Home Medications Home Medications Medication Instructions Recorded Confirmed Type omeprazole 20 mg PO QAM 07/05/18 08/17/19 History valacyclovir 500 mg PO QAM 07/05/18 08/17/19 History lactulose [Constulose] 30 ml PO DAILY PRN 09/29/18 08/17/19 History diltiazem HCl [Cartia XT] 300 mg PO QAM 12/01/18 08/17/19 History apixaban [Eliquis] 2.5 mg PO BID 07/06/19 08/17/19 History calcium carbonate-vitamin D3 1 cap PO QAM 07/06/19 08/17/19 History [Calcium 600 + D(3)] insulin glargine [Lantus U-100 30 unit SUBCUT HS PRN 07/06/19 08/17/19 History Insulin] potassium chloride 20 meq PO BID 07/06/19 08/17/19 History thiamine HCl (vitamin B1) [Vitamin 50 mg PO QAM 07/06/19 08/17/19 History B-1] albuterol sulfate 2.5 mg INHALATION Q4 PRN 08/17/19 08/17/19 History diclofenac sodium [Voltaren] 4 g TOPICAL QID PRN 08/17/19 08/17/19 History diphenhydramine HCl [Benadryl] 50 mg PO Q6H PRN 08/17/19 08/17/19 History ergocalciferol (vitamin D2) 1,250 mcg PO WK 08/17/19 08/17/19 History [Vitamin D2] folic acid 1 mg PO DAILY 08/17/19 08/17/19 History furosemide [Lasix] 20 mg PO DAILY 08/17/19 08/17/19 History hydrocodone-acetaminophen 1 tab PO BID PRN 08/17/19 08/17/19 History meclizine 12.5 mg PO TID PRN 08/17/19 08/17/19 History meloxicam 15 mg PO DAILY 08/17/19 08/17/19 History metformin 1,000 mg PO DAILY 08/17/19 08/17/19 History nicotine (polacrilex) 4 mg BUCCAL Q2H PRN 08/17/19 08/17/19 History perphenazine 18 mg PO BID 08/17/19 08/17/19 History ranitidine HCl 300 mg PO HS 08/17/19 08/17/19 History tiotropium bromide [Spiriva 2 puff INHALATION DAILY 08/17/19 08/17/19 History Respimat] triamcinolone acetonide 1 applic TOPICAL BID PRN 08/17/19 08/17/19 History Allergies Allergy/AdvReac Type Severity Reaction Status Date / Time haloperidol Allergy Severe TONGUE Verified 08/17/19 20:34 SWELLING insulin lispro Allergy Intermediate HIVES Verified 08/17/19 20:34 phenol Allergy Intermediate HIVES Verified 08/17/19 20:34 citalopram Allergy Mild ITCHING Verified 08/17/19 20:34 sulfamethoxazole Allergy Mild RASH Verified 08/17/19 20:34 trimethoprim Allergy Mild RASH Verified 08/17/19 20:34 Bactrim Allergy Unknown RASH Verified 12/01/17 16:09 Penicillins Allergy Unknown Hives Verified 08/17/19 20:34 pregabalin [From Lyrica] AdvReac Severe SUICIDAL Verified 08/17/19 20:34 topiramate AdvReac Severe SEIZURE Verified 08/17/19 20:34 LIKE ACTIVITY oxycodone AdvReac Mild ITCH Verified 08/17/19 20:34 Margarine Allergy Severe RASH Uncoded 08/17/19 20:34 Past Med/Surg History Medical History Alcohol induced acute pancreatitis (Resolved) Alcohol use disorder (Chronic) Atrial fibrillation (Chronic) paroxysmal Chronic generalized pain disorder (Chronic) COPD (chronic obstructive pulmonary disease) (Chronic) DM type 2 (diabetes mellitus, type 2) (Chronic) EtOH dependence (Inactive) Fatty liver (Chronic) History of opioid abuse (Chronic) HTN (hypertension) (Chronic) Hx of cocaine abuse Neuropathy (Chronic) Non-sustained ventricular tachycardia (Inactive) Obesity (Chronic) Schizoaffective disorder (Chronic) Sciatic nerve disease (Chronic) Sleep apnea (Chronic) Tobacco use disorder (Chronic) Surgical History H/O foot surgery (Resolved) H/O ovarian cystectomy (Resolved) Family History Other Heart disease Kidney disease Social History Preferred Language: Azeri Communication Ability: Effective Visual Impairment: No Limitations Bacon Stringer Required: No Beliefs That Will Affect Care: None marital status: Single Current Living Situation: Family Current Living Situation Comment: lives with brother current occupational status: unemployed and disabled Other Information That Helps Us Care for You: No Feels Safe at Home: Yes Safety Concerns: Feels Safe At This Time Smoking Status: Current some day smoker Tobacco Type: cigarettes ; Cigarettes Per Day: 10 ; Do You Dip or Chew Tobacco: No ; Second Hand Exposure: No ; Tobacco Cessation Education Requested by Patient: No Hx Alcohol Use: Yes Alcohol type: wine and hard liquor Hx Substance Use: No Review of Systems See HPI for pertinent positives & negatives. and A total of 10 systems reviewed and were otherwise negative Physical Exam Vital Signs Vital Signs - 24 hr 08/17/19 18:13 08/17/19 20:50 08/17/19 22:45 Temperature 36.6 C Temperature Source Oral Pulse Rate 93 H Pulse Rate [Finger] 73 77 Respiratory Rate 20 20 20 Respiratory Effort / Characteristics Non-Labored Respiratory Depth Normal Blood Pressure 113/73 Blood Pressure [Right Arm] 101/58 L 123/70 Blood Pressure Mean 86 Blood Pressure Mean [Right Arm] 72 87 Blood Pressure Position [Right Arm] Lying Pulse Oximetry 98 98 96 Oxygen Delivery Method Room Air Room Air Room Air Sepsis Recent Fever Within 48 Hours No Sepsis New/Unexplained Change in Mental Status No Sepsis Action Taken by Nursing No Action Required GENERAL: alert, well appearing, well nourished, no distress, non-toxic EYE EXAM: sclera icterus, PERRL and EOM's grossly intact OROPHARYNX: no exudate, no erythema, lips, buccal mucosa, poor dentition, and tongue normal and mucous membranes are moist NECK: supple, no nuchal rigidity, no adenopathy, non-tender LUNGS: Clear to auscultation. Normal chest wall mechanics, no w/r/r HEART: no murmurs, S1 normal and S2 normal ABDOMEN: abdomen soft, mild upper abdominal tenderness with palpation, negative fluid wave, normo-active bowel sounds, no masses, no rebound or guarding. BACK: Back is symmetrical on inspection and there is no deformity, no midline tenderness, no CVA tenderness. SKIN: no rashes and no bruising, no petechiae. UPPER EXTREMITIES: upper extremities are grossly normal. Nml pulses b/l. FROM. LOWER EXTREMITIES: 3+ lower extremity edema up to knees bilaterally. Nml pulses b/l. FROM. NEURO EXAM: Normal sensorium, cranial nerves II-XII grossly intact, normal speech, no gross weakness of arms, no gross weakness of legs. Course Course 2004: Past medical records reviewed. The patient was evaluated in room C5. A complete history and physical exam was performed. 2017: Outpatient labs performed earlier today show hemoglobin of 8.2, hematocrit of 23.1, creatinine of 2.0, sodium of 125, albumin of 2.6, alk phos 273, ACT 76, and total bilirubin of 3.8. 2032: Outpatient ultrasound performed earlier today showed hepatic steatosis with moderate ascites. Biliary sludge without evidence of cholecystitis. I updated patient on all results and need for additional evaluation. 2148: [facility] He will evaluate the patient for further management. Consultations Consultation #1: [facility] He will evaluate the patient for further management. Time: 21:49 Administered Medications Acetaminophen (Children's Acetaminophen) 320 mg PO Q4H PRN PRN Reason: Pain or Fever Stop: 09/16/19 22:22 Last Admin: 08/20/19 12:56 Dose: 320 mg Documented by: [id number] Diltiazem HCl (Cardizem Cd) 300 mg PO QAM [facility] Stop: 09/17/19 08:59 Last Admin: 08/20/19 09:16 Dose: 300 mg Documented by: [id number] Admin: 08/19/19 10:53 Dose: 300 mg Documented by: [id number] Admin: 08/18/19 08:48 Dose: 300 mg Documented by: [id number] Doxycycline Hyclate (Vibramycin) 100 mg PO BID [facility] Stop: 08/26/19 12:29 Last Admin: 08/20/19 09:20 Dose: 100 mg Documented by: [id number] Admin: 08/19/19 22:13 Dose: 100 mg Documented by: [id number] Admin: 08/19/19 16:44 Dose: 100 mg Documented by: [id number] Folic Acid (Folvite) 1 mg PO DAILY [facility] Stop: 09/17/19 08:59 Last Admin: 08/20/19 09:17 Dose: 1 mg Documented by: [id number] Admin: 08/19/19 10:54 Dose: 1 mg Documented by: [id number] Admin: 08/18/19 08:48 Dose: 1 mg Documented by: [id number] Furosemide (Lasix) 20 mg PO DAILY [facility]OS Stop: 09/19/19 08:59 Last Admin: 08/20/19 09:19 Dose: 20 mg Documented by: [id number] Albumin Human (Albumin 25%) 50 mls @ 50 mls/hr IV Q6H [facility]OS Stop: 08/21/19 00:59 Last Infusion: 08/20/19 12:16 Dose: 0 mls/hr Documented by: [id number] Admin: 08/20/19 10:32 Dose: 50 mls/hr Documented by: [id number] Infusion: 08/20/19 05:48 Dose: 0 mls/hr Documented by: [id number] Admin: 08/20/19 04:29 Dose: 50 mls/hr Documented by: [id number] Infusion: 08/19/19 23:14 Dose: 0 mls/hr Documented by: [id number] Admin: 08/19/19 22:12 Dose: 50 mls/hr Documented by: [id number] Infusion: 08/19/19 17:46 Dose: 0 mls/hr Documented by: [id number] Admin: 08/19/19 16:44 Dose: 50 mls/hr Documented by: [id number] Infusion: 08/19/19 07:35 Dose: 0 mls/hr Documented by: [id number] Admin: 08/19/19 06:31 Dose: 50 mls/hr Documented by: [id number] Infusion: 08/19/19 01:18 Dose: 0 mls/hr Documented by: [id number] Admin: 08/19/19 00:31 Dose: 50 mls/hr Documented by: [id number] Infusion: 08/18/19 20:00 Dose: 0 mls/hr Documented by: [id number] Admin: 08/18/19 19:00 Dose: 50 mls/hr Documented by: [id number] Infusion: 08/18/19 14:45 Dose: 0 mls/hr Documented by: [id number] Admin: 08/18/19 13:43 Dose: 50 mls/hr Documented by: [id number] Infusion: 08/18/19 07:20 Dose: 0 mls/hr Documented by: [id number] Admin: 08/18/19 06:28 Dose: 60 mls/hr Documented by: [id number] Infusion: 08/18/19 03:02 Dose: 0 mls/hr Documented by: [id number] Admin: 08/18/19 01:34 Dose: 50 mls/hr Documented by: [id number] Insulin Aspart (Novolog Flexpen) 0 units SC ACHS [facility] Stop: 09/17/19 00:35 Last Admin: 08/20/19 09:45 Dose: Not Given Documented by: [id number] Cosigned by: [id number] Admin: 08/19/19 22:09 Dose: Not Given Documented by: [id number] Cosigned by: [id number] Admin: 08/19/19 20:42 Dose: Not Given Documented by: [id number] Cosigned by: [id number] Admin: 08/19/19 13:26 Dose: Not Given Documented by: [id number] Cosigned by: [id number] Admin: 08/19/19 08:31 Dose: Not Given Documented by: [id number] Cosigned by: [id number] Admin: 08/18/19 21:00 Dose: Not Given Documented by: [id number] Cosigned by: [id number] Admin: 08/18/19 16:30 Dose: Not Given Documented by: [id number] Cosigned by: [id number] Admin: 08/18/19 13:23 Dose: Not Given Documented by: [id number] Cosigned by: [id number] Admin: 08/18/19 07:46 Dose: Not Given Documented by: [id number] Cosigned by: [id number] Admin: 08/18/19 01:37 Dose: Not Given Documented by: [id number] Cosigned by: [id number] Magnesium Oxide (Mag-Ox) 400 mg PO DAILY@1100 [facility] Stop: 09/19/19 10:59 Last Admin: 08/20/19 12:01 Dose: 400 mg Documented by: [id number] Multivitamins/Minerals (Caltrate Plus) 1 tab PO DAILY@1100 [facility] Stop: 09/19/19 10:59 Last Admin: 08/20/19 12:55 Dose: 1 tab Documented by: [id number] Pantoprazole Sodium (Protonix) 40 mg PO QAM [facility] Stop: 09/18/19 08:59 Last Admin: 08/20/19 09:19 Dose: 40 mg Documented by: [id number] Admin: 08/19/19 10:53 Dose: 40 mg Documented by: [id number] Perphenazine (Trilafon) 18 mg PO BID [facility] Stop: 09/17/19 00:35 Last Admin: 08/20/19 09:16 Dose: Not Given Documented by: [id number] Admin: 08/19/19 21:10 Dose: Not Given Documented by: [id number] Admin: 08/19/19 10:54 Dose: Not Given Documented by: [id number] Admin: 08/18/19 21:16 Dose: Not Given Documented by: [id number] Admin: 08/18/19 08:45 Dose: Not Given Documented by: [id number] Admin: 08/18/19 01:39 Dose: Not Given Documented by: [id number] Potassium Chloride (Klor-Con M20) 20 meq PO BID [facility] Stop: 09/18/19 20:59 Last Admin: 08/20/19 09:18 Dose: 20 meq Documented by: [id number] Admin: 08/19/19 22:12 Dose: 20 meq Documented by: [id number] Thiamine HCl (Vitamin B-1) 50 mg PO QAM [facility] Stop: 09/17/19 08:59 Last Admin: 08/20/19 09:20 Dose: 50 mg Documented by: [id number] Admin: 08/19/19 10:53 Dose: 50 mg Documented by: [id number] Admin: 08/18/19 08:48 Dose: 50 mg Documented by: [id number] Umeclidinium [place] (Incruse Ellipta) 1 puffs INH DAILY [facility] Stop: 09/17/19 08:59 Last Admin: 08/20/19 09:18 Dose: 1 puffs Documented by: [id number] Admin: 08/19/19 10:54 Dose: 1 puffs Documented by: [id number] Admin: 08/18/19 08:49 Dose: 1 puffs Documented by: [id number] Zinc Acetate/Diphenhydramine (Benadryl Extra Strength) 1 appln EXT QID PRN PRN Reason: itchy skin Stop: 09/17/19 00:35 Last Admin: 08/18/19 02:03 Dose: 1 appln Documented by: [id number] Discontinued Medications Acetaminophen (Children's Acetaminophen) 320 mg PO NOW STA Stop: 08/17/19 23:24 Last Admin: 08/17/19 23:39 Dose: 320 mg Documented by: [id number] Albumin Human (Albumin 25%) Confirm Administered Dose 12.5 gm IV .STK-MED ONE Stop: 08/17/19 22:13 Last Admin: 08/17/19 22:25 Dose: Not Given Documented by: [id number] Albumin Human (Albumin 25%) 50 mls @ 50 mls/hr IV ONE ONE Stop: 08/17/19 22:33 Last Admin: 08/17/19 22:25 Dose: Not Given Documented by: [id number] Sodium Chloride (Nss) 500 mls @ 500 mls/hr IV .Q1H ONE Stop: 08/17/19 22:41 Last Infusion: 08/17/19 23:53 Dose: 0 mls/hr Documented by: [id number] Admin: 08/17/19 22:30 Dose: 500 mls/hr Documented by: [id number] Ceftriaxone Sodium (Rocephin) 1,000 mg in 50 mls @ 100 mls/hr IV NOW STA Stop: 08/17/19 22:58 Last Infusion: 08/18/19 03:03 Dose: 0 mls/hr Documented by: [id number] Admin: 08/18/19 00:12 Dose: 100 mls/hr Documented by: [id number] Pantoprazole Sodium 80 mg/ (Dextrose) 120 mls @ 480 mls/hr IV NOW STA Stop: 08/17/19 22:51 Last Infusion: 08/18/19 00:12 Dose: 0 mls/hr Documented by: [id number] Admin: 08/17/19 23:39 Dose: 480 mls/hr Documented by: [id number] Pantoprazole Sodium 40 mg/ (Dextrose) 100 mls @ 20 mls/hr IV Q5H [facility] Stop: 09/16/19 22:59 Last Infusion: 08/18/19 13:22 Dose: 0 mls/hr Documented by: [id number] Admin: 08/18/19 09:48 Dose: 20 mls/hr Documented by: [id number] Infusion: 08/18/19 09:36 Dose: 20 mls/hr Documented by: [id number] Admin: 08/18/19 04:36 Dose: 20 mls/hr Documented by: [id number] Infusion: 08/18/19 04:36 Dose: 20 mls/hr Documented by: [id number] Admin: 08/18/19 00:12 Dose: 20 mls/hr Documented by: [id number] Ceftriaxone Sodium (Rocephin) 2,000 mg in 70 mls @ 100 mls/hr IV Q24H [facility] Stop: 08/27/19 00:41 Last Infusion: 08/19/19 00:31 Dose: 0 mls/hr Documented by: [id number] Admin: 08/18/19 23:48 Dose: 100 mls/hr Documented by: [id number] Magnesium Sulfate/Dextrose (Magnesium Sulfate / D5w) 1 gm in 100 mls @ 100 mls/hr IV Q1H [facility] Stop: 08/18/19 05:07 Last Infusion: 08/18/19 05:51 Dose: 0 mls/hr Documented by: [id number] Admin: 08/18/19 04:36 Dose: 100 mls/hr Documented by: [id number] Infusion: 08/18/19 04:36 Dose: 100 mls/hr Documented by: [id number] Admin: 08/18/19 04:00 Dose: 100 mls/hr Documented by: [id number] Infusion: 08/18/19 04:00 Dose: 100 mls/hr Documented by: [id number] Admin: 08/18/19 03:02 Dose: 100 mls/hr Documented by: [id number] Infusion: 08/18/19 02:34 Dose: 100 mls/hr Documented by: [id number] Admin: 08/18/19 01:34 Dose: 100 mls/hr Documented by: [id number] Phytonadione 5 mg/ Sodium (Chloride) 50.5 mls @ 101 mls/hr IV ONE ONE Stop: 08/18/19 08:05 Last Infusion: 08/18/19 09:05 Dose: 0 mls/hr Documented by: [id number] Admin: 08/18/19 08:35 Dose: 101 mls/hr Documented by: [id number] Sodium Chloride (Nss) 500 mls @ 60 mls/hr IV .Q8H20M ONE Stop: 08/18/19 15:57 Last Infusion: 08/18/19 10:20 Dose: 0 mls/hr Documented by: [id number] Admin: 08/18/19 08:35 Dose: 60 mls/hr Documented by: [id number] Lorazepam (Ativan) 0.5 mg in 1 mls @ 1 mls/min IV TODAY@1400 [facility] Stop: 08/18/19 18:00 Last Admin: 08/18/19 18:00 Dose: Not Given Documented by: [id number] Lorazepam (Ativan) 0.5 mg in 1 mls @ 1 mls/min IV ONE PRN PRN Reason: for imaging study Last Admin: 08/19/19 13:22 Dose: 1 mls/min Documented by: [id number] Magnesium Sulfate/Dextrose (Magnesium Sulfate / D5w) 1 gm in 100 mls @ 100 mls/hr IV ONE ONE Stop: 08/19/19 12:14 Last Infusion: 08/19/19 12:45 Dose: 0 mls/hr Documented by: [id number] Admin: 08/19/19 11:43 Dose: 100 mls/hr Documented by: [id number] Lactulose (Chronulac) 30 gm PO NOW STA Stop: 08/17/19 23:25 Last Admin: 08/17/19 23:39 Dose: 30 gm Documented by: [id number] Lidocaine HCl (Xylocaine 2%) Confirm Administered Dose 4 ml INFIL .STK-MED ONE Stop: 08/18/19 11:51 Last Admin: 08/18/19 13:22 Dose: Not Given Documented by: [id number] Lidocaine HCl (Xylocaine 2%) Confirm Administered Dose 2 ml INFIL .STK-MED ONE Stop: 08/19/19 08:59 Last Admin: 08/19/19 10:52 Dose: Not Given Documented by: [id number] Midazolam HCl (Versed) Confirm Administered Dose 2 mg .ROUTE .STK-MED ONE Stop: 08/19/19 08:59 Last Admin: 08/19/19 10:52 Dose: Not Given Documented by: [id number] Phenylephrine HCl (Jelani-Synephrine 500mcg/5ml) Confirm Administered Dose 100 mcg .ROUTE .STK-MED ONE Stop: 08/18/19 11:51 Last Admin: 08/18/19 13:22 Dose: Not Given Documented by: [id number] Polyethylene Glycol/Electrolytes (Golytely) 16 dose PO TODAY@1300 [facility] Stop: 08/18/19 18:00 Last Admin: 08/18/19 18:00 Dose: 16 dose Documented by: [id number] Potassium Chloride (Klor-Con M20) 40 meq PO NOW STA Stop: 08/18/19 00:47 Last Admin: 08/18/19 01:36 Dose: 40 meq Documented by: [id number] Potassium Chloride (Klor-Con M20) 40 meq PO ONE ONE Stop: 08/18/19 03:01 Last Admin: 08/18/19 03:02 Dose: 40 meq Documented by: [id number] Potassium Chloride (Klor-Con M20) 40 meq PO NOW STA Stop: 08/18/19 07:48 Last Admin: 08/18/19 08:40 Dose: 40 meq Documented by: [id number] Potassium Chloride (Klor-Con M20) 40 meq PO ONE ONE Stop: 08/19/19 11:16 Last Admin: 08/19/19 11:42 Dose: 40 meq Documented by: [id number] Propofol (Diprivan) Confirm Administered Dose 200 mg IV .STK-MED ONE Stop: 08/18/19 11:51 Last Admin: 08/18/19 13:22 Dose: Not Given Documented by: [id number] Propofol (Diprivan) Confirm Administered Dose 200 mg IV .STK-MED ONE Stop: 08/19/19 08:59 Last Admin: 08/19/19 10:52 Dose: Not Given Documented by: [id number] Medical Decision Making Differential Diagnosis Differential diagnosis includes: appendicitis, diverticulitis, PUD, biliary pathology, UTI, pancreatitis, obstruction, mesenteric ischemia, aortic pathology, infections, inflammatory bowel disease, renal colic, as well as others were entertained. Medical Records Attestation: I reviewed the patient's medical records. Home Medications Current Medication List: was personally reviewed by me Laboratory Data Attestation: I reviewed the patient's lab results. Result diagrams: 08/20/19 08:29 08/20/19 08:29 Lab Results 08/17/19 08/17/19 08/17/19 Range/Units 20:34 20:34 20:34 PT 16.6 H (9.0-12.0) Seconds INR 1.7 H (0.9-1.1) Lactate (0.4-2.0) mmol/L Ammonia 52.7 H (11-32) umol/L Lipase (73-393) U/L Blood Type O Positive Antibody Screen NEGATIVE Crossmatch See Detail 08/17/19 08/17/19 Range/Units 20:34 20:34 PT (9.0-12.0) Seconds INR (0.9-1.1) Lactate 2.4 H* (0.4-2.0) mmol/L Ammonia (11-32) umol/L Lipase 658 H (73-393) U/L Blood Type Antibody Screen Crossmatch Imaging Data Radiologist's Impression: Radiology results as stated below per my review and the radiologist's interpretation: CT SCAN OF THE ABDOMEN AND PELVIS WITHOUT CONTRAST CLINICAL HISTORY: abd pain, renal failure COMPARISON STUDY: 12/17/2018 TECHNIQUE: CT scan of the abdomen and pelvis was performed from the lung bases to the proximal femurs. Images are reviewed in the axial, sagittal, and coronal planes. IV contrast was not administered for this examination. A dose lowering technique was utilized adhering to the principles of ALARA. CT DOSE: 1280.02 mGy.cm FINDINGS: Lower chest: The heart is normal in size and configuration, without pericardial effusion. The lung bases and pleural spaces are clear. Liver: There is severe hepatic steatosis. The liver is mildly enlarged measuring 20 cm. No focal hepatic masses are visualized on this noncontrast study. More focal decreased attenuation at the right hepatic dome likely represents or focal fatty change. There is also decreased attenuation involving the periphery of the right lobe, also likely representing or focal fat. There is suspected portal hypertension with recannulization of the umbilical vein Gallbladder: Cholelithiasis and sludge. There is mild gallbladder wall thickening. Spleen: Normal in size and attenuation. Pancreas: Unremarkable. Adrenal glands: Unremarkable. Kidneys: No renal, ureteral, or bladder calculi are visualized. Bowel: There are no transition zones to indicate bowel obstruction. Evaluation of the appendix is felt to be nondiagnostic given the lack of intravenous and oral contrast and the adjacent ascites. There is no evidence of acute diverticulitis. Peritoneum: There is moderate ascites. There is no free intraperitoneal air. Vasculature: The abdominal aorta is normal in course and caliber. Adenopathy: None. Pelvic viscera: The bladder, and pelvic viscera are unremarkable. Skeletal structures: No destructive osseous lesions are seen. IMPRESSION: 1. No evidence of bowel obstruction. No evidence of free air 2. Severe hepatic steatosis. Mild hepatomegaly 3. Cholelithiasis and mild gallbladder wall thickening 4. No renal, ureteral, or bladder calculi identified 5. Interval development of moderate ascites ACT 112: Negative or not required by law. Electronically signed by: Dawood Diaz M.D. 08/17/2019 9:41 PM XR chest 1V portable CLINICAL HISTORY: hyponatremia COMPARISON STUDY: 05/04/2019 FINDINGS: The cardiac and mediastinal contours are normal. There is no evidence of focal pulmonary consolidation. There is no evidence of failure. No pleural effusions are visualized.[ IMPRESSION: No active disease in the chest. ACT 112: Negative or not required by law. Electronically signed by: Dawood Diaz M.D. 08/17/2019 9:45 PM ECG Data Attestation: I personally reviewed and interpreted this ECG as follows: Indication: + abdominal pain Rate (beats per minute): 73 Rhythm: + sinus rhythm ECG [place]: + Normal ECG Findings: + Other (Normal intervals; No ectopy; No ischemic changes; ) Blood Pressure Blood Pressure Findings: Normal blood pressure MDM Narrative Pt well known to the ER and has been here previously with various complaints. Pt now presents with abnormal outpt labs and US showing biliary sludge. I ordered additional labs to help clarify potential etiology of the abnormalities. Pt now anemic, jaundiced, with renal failure - all of these values are worse compared to prior results in EMR. Discussed case with the hospitalist. No complaints of chest pain. Pt does admit to abdominal pain which is chronic for her and has previously been attributed to pancreatitis, alcohol abuse, other substance abuse. Pt denies any black or bloody stools. Denies vomiting. Unclear etiology of anemia. I added CT given lab abnormalities. I do not suspect acute pancreatitis despite elevated lipase. No other acute pathology noted on CT. VS stable. Pt started on IVF. UA pending. Pt in agreement with the plan. Impression & Plan Abdominal pain, Acute renal failure (ARF), Hyperbilirubinemia, Elevated lipase, Anemia, Ascites Discharge Plan Visit Data *Final* Discharge Date/Time: 08/17/19 23:53 Chief Complaint: Abnormal Labs/Diagnostic Testing Stated Complaint: ABNORMAL BLOODWORK, ABD PAIN ED Provider: Gloria Johnson Discharge Problem: Abdominal pain, Acute renal failure (ARF), Hyperbilirubinemia, Elevated lipase, Anemia, Ascites Patient Disposition: Admitted As Inpatient Discharge Instructions Interventions: ED Discharge Assessment Last Done: 08/17/19 23:53 Discharge Problem: Abdominal pain Qualifiers: Abdominal location: epigastric Qualified Code(s): R10.13 - Epigastric pain Acute renal failure (ARF) Qualifiers: Acute renal failure type: unspecified Qualified Code(s): N17.9 - Acute kidney failure, unspecified Anemia Qualifiers: Anemia type: unspecified type Qualified Code(s): D64.9 - Anemia, unspecified Ascites Qualifiers: Ascites type: other type Qualified Code(s): R18.8 - Other ascites The scribe's documentation has been prepared under my direction and personally reviewed by me in its entirety. I confirm that the note above accurately re flects all work, treatment, procedures, and medical decision making performed by me.
[2019-08-17] MEDS ORDERED: ALBUMIN HUMAN 25% 12.5 GM/50 ML VIAL IV ONE (22:12)
[2019-08-17] MEDS ORDERED: CONSULT PHARMACY STA (22:26)
[2019-08-17] MEDS ORDERED: cefTRIAXone SODIUM 1,000 MG/50 ML BAG IV STA (22:29)
[2019-08-17] MEDS ORDERED: PANTOprazole 80 MG in DEXTROSE 5% 100 ML IV STA (22:37)
[2019-08-17] MEDS ORDERED: ACETAMINOPHEN SUSP 160 MG/5 ML UDC PO STA (23:23)
[2019-08-17] MEDS ORDERED: LACTULOSE SYRUP 20 GM/30 ML UDC PO STA (23:24)
--- NOTE | 2019-08-17 23:28 | History & Physical Report ---
Date of Service August 17, 2019 Assessment & Plan (1) Abdominal pain: Multifactorial : UGIB (possible etiologies include NSAID gastritis, PUD, esophageal varices (given portal hypertension on CT) in the setting of Eliquis intake for PAF hx New onset ascites possible SBP, patient not septic for now (likely cirrhosis, hx fatty liver/alcoholism as per records) Hyponatremia, ARF secondary to illness, NSAID rx HTN, BP on the lower side hx TIAs as per records chronic respiratory failure secondary to COPD on home O2, pulmonary status at baseline DM2 insulin requiring, well-controlled as of recent outpatient hemoglobin A1c of 06 May 2019 Hypokalemia secondary to home insulin Rx, poor p.o. intake mood disorder/personality disorder/paranoid schizophrenia, stable history ongoing cocaine/alcohol/tobacco abuse. PCU IV PPI Appropriate to hold Eliquis for now Serial H&H, transfuse PRBC if hemoglobin less than 8 and or for symptomatic anemia (hx TIAs as per records) GI consult RE U GIB, ascites, possible early cirrhosis work-up Patient counseled about hazards of concomitant NSAID intake with NOAC and current kidney dysfunction. Diagnostic and therapeutic paracentesis in a.m. IV albumin, ceftriaxone for possible SBP for now Baseline UA, monitor creatinine response to IVF Hyponatremia work-up, careful correction of sodium Nephrology consult RE ARF, hyponatremia Replace electrolytes ISS BG goal [id number], update hemoglobin A1c DVT prophylaxis. SCDs RE GI bleed Full code Patient requesting for female medical providers whenever possible. Text document was generated using Shout voice recognition software. It may contain grammatical or spelling errors. Kindly contact undersigned for clarification of any documentation item in question. History of Present Illness Chief Complaint: Abnormal ultrasound, blood work Primary Care Provider: Dante Rosario History obtained from patient and records. Medical history significant for chronic respiratory failure secondary to COPD on home O2, PAF on Eliquis, history of TIAs, hypertension, DM 2 insulin requiring, mood disorder/personality disorder/paranoid schizophrenia, history of fatty liver as per records, history ongoing cocaine/alcohol/tobacco abuse. Recent confinement April 2019 at the [facility] for psychotic symptoms. Patient has had achy upper abdominal discomfort for a few months now for which patient will take OTC ibuprofen not more than twice a day for pain. Outpatient abdominal ultrasound from May, showed hepatomegaly, hepatic steatosis, small gallbladder sludge, small ascites. Patient evaluated by [facility] General Surgery outpatient last month. Elective laparoscopic cholecystectomy recommended for cholelithiasis/chronic cholecystitis as per note. Patient canceled procedure due to paranoia/anxiety. Worsening achy upper abdominal discomfort over the last few weeks with nausea, nonbloody emesis. Stools noted to be dark as per patient. Poor appetite, dark urine. Increased abdominal distention and leg swelling. No unusual chest pain, no S OB. No fever no chills. Patient seen at PCPs office today. Outpatient abdominal ultrasound showed hepatic steatosis with moderate ascites, biliary sludge without cholecystitis. Outpatient hemoglobin 8.2, serum sodium 125, serum creatinine 2. Patient directed by PCP to the ER for abnormal blood work. Medical History as above Surgical History : Foot/toe surgery, ovarian cyst removal, Family History : Breast cancer, liver cancer, heart disease, kidney disease Personal/Social history : One 4 pack daily, alcohol abuse although last drink was about 2 weeks ago, disabled Allergies Allergy/AdvReac Type Severity Reaction Status Date / Time haloperidol Allergy Severe TONGUE Verified 08/17/19 20:34 SWELLING insulin lispro Allergy Intermediate HIVES Verified 08/17/19 20:34 phenol Allergy Intermediate HIVES Verified 08/17/19 20:34 citalopram Allergy Mild ITCHING Verified 08/17/19 20:34 sulfamethoxazole Allergy Mild RASH Verified 08/17/19 20:34 trimethoprim Allergy Mild RASH Verified 08/17/19 20:34 Bactrim Allergy Unknown RASH Verified 12/01/17 16:09 Penicillins Allergy Unknown Hives Verified 08/17/19 20:34 pregabalin [From Lyrica] AdvReac Severe SUICIDAL Verified 08/17/19 20:34 topiramate AdvReac Severe SEIZURE Verified 08/17/19 20:34 LIKE ACTIVITY oxycodone AdvReac Mild ITCH Verified 08/17/19 20:34 Margarine Allergy Severe RASH Uncoded 08/17/19 20:34 Home Medications Home Medications Medication Instructions Recorded Confirmed Type omeprazole 20 mg PO QAM 07/05/18 08/17/19 History valacyclovir 500 mg PO QAM 07/05/18 08/17/19 History lactulose [Constulose] 30 ml PO DAILY PRN 09/29/18 08/17/19 History diltiazem HCl [Cartia XT] 300 mg PO QAM 12/01/18 08/17/19 History apixaban [Eliquis] 2.5 mg PO BID 07/06/19 08/17/19 History calcium carbonate-vitamin D3 1 cap PO QAM 07/06/19 08/17/19 History [Calcium 600 + D(3)] insulin glargine [Lantus U-100 30 unit SUBCUT HS PRN 07/06/19 08/17/19 History Insulin] potassium chloride 20 meq PO BID 07/06/19 08/17/19 History thiamine HCl (vitamin B1) [Vitamin 50 mg PO QAM 07/06/19 08/17/19 History B-1] albuterol sulfate 2.5 mg INHALATION Q4 PRN 08/17/19 08/17/19 History diclofenac sodium [Voltaren] 4 g TOPICAL QID PRN 08/17/19 08/17/19 History diphenhydramine HCl [Benadryl] 50 mg PO Q6H PRN 08/17/19 08/17/19 History ergocalciferol (vitamin D2) 1,250 mcg PO WK 08/17/19 08/17/19 History [Vitamin D2] folic acid 1 mg PO DAILY 08/17/19 08/17/19 History furosemide [Lasix] 20 mg PO DAILY 08/17/19 08/17/19 History hydrocodone-acetaminophen 1 tab PO BID PRN 08/17/19 08/17/19 History meclizine 12.5 mg PO TID PRN 08/17/19 08/17/19 History meloxicam 15 mg PO DAILY 08/17/19 08/17/19 History metformin 1,000 mg PO DAILY 08/17/19 08/17/19 History nicotine (polacrilex) 4 mg BUCCAL Q2H PRN 08/17/19 08/17/19 History perphenazine 18 mg PO BID 08/17/19 08/17/19 History ranitidine HCl 300 mg PO HS 08/17/19 08/17/19 History tiotropium bromide [Spiriva 2 puff INHALATION DAILY 08/17/19 08/17/19 History Respimat] triamcinolone acetonide 1 applic TOPICAL BID PRN 08/17/19 08/17/19 History Past Med/Surg History Medical History Alcohol induced acute pancreatitis (Resolved) Alcohol use disorder (Chronic) Atrial fibrillation (Chronic) paroxysmal Chronic generalized pain disorder (Chronic) COPD (chronic obstructive pulmonary disease) (Chronic) DM type 2 (diabetes mellitus, type 2) (Chronic) EtOH dependence (Inactive) Fatty liver (Chronic) History of opioid abuse (Chronic) HTN (hypertension) (Chronic) Hx of cocaine abuse Neuropathy (Chronic) Non-sustained ventricular tachycardia (Inactive) Obesity (Chronic) Schizoaffective disorder (Chronic) Sciatic nerve disease (Chronic) Sleep apnea (Chronic) Tobacco use disorder (Chronic) Surgical History H/O foot surgery (Resolved) H/O ovarian cystectomy (Resolved) Family History Other Heart disease Kidney disease Social History Preferred Language: Slovenian Communication Ability: Effective Visual Impairment: No Limitations Bag Worker Required: No Beliefs That Will Affect Care: None marital status: Single Current Living Situation: Family Current Living Situation Comment: lives with brother current occupational status: unemployed and disabled Other Information That Helps Us Care for You: No Feels Safe at Home: Yes Safety Concerns: Feels Safe At This Time Smoking Status: Current some day smoker Tobacco Type: cigarettes ; Cigarettes Per Day: 10 ; Do You Dip or Chew Tobacco: No ; Second Hand Exposure: No ; Tobacco Cessation Education Requested by Patient: No Hx Alcohol Use: Yes Alcohol type: wine and hard liquor Hx Substance Use: No Review of Systems Review of Systems: As per HPI, all 10 systems reviewed, all other ROS negative Physical Exam Physical Exam: GENERAL: uncomfortable, anxious, obese, no respiratory distress SKIN: Pallor , warm HEENT: Pale palpebral conjunctivae, no ptosis, dry buccal mucosa NECK : Supple, short neck, no tenderness CHEST : Decreased breath sounds , no tenderness HEART : RRR, no obvious murmurs ABDOMEN: distention, central abdominal tenderness, positive fluid wave EXTREMITIES : Bilateral LE swelling, no LE tenderness, no other conspicuous deformities noted NEUROLOGIC : Coherent, no facial asymmetry, no other gross focality Results & Data Vital Signs (Past 12 Hours) Vital Signs Temp Pulse Pulse Resp BP BP Pulse Ox 08/17/19 22:45 77 20 123/70 96 08/17/19 20:50 73 20 101/58 L 98 08/17/19 18:13 36.6 C 93 H 20 113/73 98 Laboratory Results Laboratory Results PT 16.6 Seconds (9.0-12.0) H 08/17/19 20:34 INR 1.7 (0.9-1.1) H 08/17/19 20:34 Lactate 2.4 mmol/L (0.4-2.0) H* 08/17/19 20:34 Ammonia 52.7 umol/L (11-32) H 08/17/19 20:34 Lipase 658 U/L (73-393) H 08/17/19 20:34 Blood Type O Positive 08/17/19 20:34 Antibody Screen NEGATIVE 08/17/19 20:[address] abdomen pelvis: 1. No evidence of bowel obstruction. No evidence of free air 2. Severe hepatic steatosis. Mild hepatomegaly 3. Cholelithiasis and mild gallbladder wall thickening 4. No renal, ureteral, or bladder calculi identified 5. Interval development of moderate ascites Chest x-ray no active disease EKG as per my interpretation : Rate 75, NSR, LAD, LAFB, no ischemia (1) Abdominal pain Abdominal location: epigastric Qualified Code(s): R10.13 - Epigastric pain
[2019-08-18 00:09] LABS: Basophils # (auto) 0.02 K/uL (0-0.2); Basophils % (auto) 0.1 %; Eosinophils # (auto) 0.06 K/uL (0-0.5); Eosinophils % (auto) 0.4 %; Hematocrit (blood only) 22.6 % (37-47); Immature Granulocytes # (auto) 0.07 K/uL (0.00-0.02); Immature Granulocytes % (auto) 0.5 %; Lymphocytes # (auto) 1.87 K/uL (1.2-3.4); Lymphocytes % (auto) 12.9 %; Mean Corpuscular Hemoglobin 36.2 pg (25-34); Mean Corpuscular Hgb Conc 35.4 g/dL (32-36); Mean Corpuscular Volume 102.3 fL (80-100); Mean Platelet Volume 10.9 fL (7.4-10.4); Monocytes # (auto) 1.03 K/uL (0.11-0.59); Monocytes % (auto) 7.1 %; Platelet Count 159 K/uL (130-400); RDW Coefficient of Variation 16.7 % (11.5-14.5); RDW Standard Deviation 61.8 fL (36.4-46.3); Red Blood Count 2.21 M/uL (4.2-5.4); White Blood Count 14.45 K/uL (4.8-10.8)
[2019-08-18] MEDS: PANTOprazole 40 MG in DEXTROSE 5% 100 ML IV SCH ×3 (00:12→09:48)
[2019-08-18 00:28] LABS: Albumin Level 1.8 gm/dl (3.4-5.0); BUN Creatinine Ratio 10.2 (10-20); Calcium 8.1 mg/dl (8.5-10.1); Creatinine Clr Calc Pharmacy 35.7 ml/min; Est GFR (African American) 31.2; Potassium 2.7 mmol/L (3.5-5.1)
[2019-08-18 00:31] LABS: Albumin Globulin Ratio 0.3 (0.9-2); Bilirubin,Total 3.1 mg/dl (0.2-1); Globulin 5.5 gm/dl (2.5-4.0); Total Protein 7.3 gm/dl (6.4-8.2)
[2019-08-18] MEDS ORDERED: TRIAMCINOLONE ACET 0.1% CR 15 GM TUBE TOP PRN (00:36)
[2019-08-18] MEDS ORDERED: DEXTROSE 50% 50 ML SYRINGE IV PRN (00:36)
[2019-08-18] MEDS ORDERED: GLUCAGON FOR INJ 1 MG VIAL SQ PRN (00:36)
[2019-08-18] MEDS ORDERED: GLUCOSE 10 TABS/TUBE PO PRN (00:36)
[2019-08-18] MEDS ORDERED: OLANZapine 10 MG/2.1 ML SDV IM PRN (00:36)
[2019-08-18] MEDS ORDERED: CARBOHYDRATES FOR HYPOGLYCEMIA PO PRN (00:36)
[2019-08-18] MEDS ORDERED: PROMETHAZINE HCL 12.5 MG in SODIUM CHLORIDE 0.9% 50 ML IV PRN (00:36)
[2019-08-18] MEDS ORDERED: GLUCOSE 40% GEL 15 GM TUBE PO PRN (00:36)
[2019-08-18] MEDS ORDERED: POTASSIUM CHLORIDE 20 MEQ TABCR PO STA ×2 (00:46→07:47)
[2019-08-18 01:23] LABS: Appearance Urine Cloudy (Clear); Color Urine Dark Yellow; Glucose Urine UA Negative (Negative); Ketones Urine Negative (Negative); Protein Urine Trace (Negative); Specific Gravity Urine 1.016 (1.000-1.030)
[2019-08-18 01:24] LABS: Bacteria Urine Automated Negative (Negative); Blood Urine Negative (Negative); Epithelial Cell Urine Auto >30 /lpf (0-5); Leukocyte Esterase Urine Trace (Negative); Nitrite Urine Positive (Negative); Urobilinogen Urine Negative (Negative)
[2019-08-18] MEDS: MAGNESIUM SULFATE / D5W 1 GM/100 ML BAG IV SCH ×4 (01:34→04:36)
[2019-08-18] MEDS: ALBUMIN 25% 50 ML IV SCH ×4 (01:34→19:00)
[2019-08-18 01:36] LABS: Bilirubin Urine 2+ (Negative); Ictotest Urine Positive (Negative)
[2019-08-18] MEDS: INSULIN ASPART 100 UNITS/ML 3 ML PEN SC SCH ×5 (01:37→21:00)
[2019-08-18] MEDS: PERPHENAZINE 2 MG TABLET PO SCH ×4 (01:39→21:16)
[2019-08-18] MEDS: DiphenhydrAMINE 2%/ZINC 0.1% CREAM 28GM TUBE EXT PRN (02:03)
[2019-08-18] MEDS ORDERED: POTASSIUM CHLORIDE 20 MEQ TABCR PO ONE (03:00)
[2019-08-18 06:48] LABS: Hematocrit (blood only) 20.1 % (37-47); Hemoglobin 7.1 g/dL (12.0-16.0); Mean Corpuscular Hemoglobin 35.7 pg (25-34); Mean Corpuscular Hgb Conc 35.3 g/dL (32-36); Mean Platelet Volume 10.7 fL (7.4-10.4); Platelet Count 144 K/uL (130-400); RDW Coefficient of Variation 16.7 % (11.5-14.5); RDW Standard Deviation 61.1 fL (36.4-46.3); Red Blood Count 1.99 M/uL (4.2-5.4); White Blood Count 12.12 K/uL (4.8-10.8)
[2019-08-18 07:05] LABS: Basophils # (auto) 0.02 K/uL (0-0.2); Basophils % (auto) 0.2 %; Eosinophils # (auto) 0.08 K/uL (0-0.5); Eosinophils % (auto) 0.7 %; Immature Granulocytes # (auto) 0.05 K/uL (0.00-0.02); Immature Granulocytes % (auto) 0.4 %; Lymphocytes # (auto) 1.31 K/uL (1.2-3.4); Lymphocytes % (auto) 10.8 %; Monocytes # (auto) 1.14 K/uL (0.11-0.59); Monocytes % (auto) 9.4 %; Neutrophils # (auto) 9.52 K/uL (1.4-6.5); Neutrophils % (auto) 78.5 %; Target Cells 1+
[2019-08-18 07:06] LABS: Estimated Average Glucose 94 mg/dl; Hemoglobin A1C 4.9 % (4.5-5.6)
[2019-08-18 07:21] LABS: Albumin Globulin Ratio 0.3 (0.9-2); Albumin Level 1.7 gm/dl (3.4-5.0); BUN Creatinine Ratio 11.2 (10-20); Calcium 8.1 mg/dl (8.5-10.1); Creatinine Clr Calc Pharmacy 39.5 ml/min; Est GFR (African American) 35.4; Est GFR (Non-African American) 30.5; Potassium 3.2 mmol/L (3.5-5.1); Total Protein 6.7 gm/dl (6.4-8.2)
[2019-08-18] MEDS ORDERED: SODIUM CHLORIDE 0.9% 250 ML IV PRN (07:30)
[2019-08-18] MEDS ORDERED: PHYTONADIONE 5 MG in SODIUM CHLORIDE 0.9% 50 ML IV ONE (07:36)
[2019-08-18] MEDS ORDERED: PHYTONADIONE 10 MG in SODIUM CHLORIDE 0.9% 50 ML IV ONE (07:38)
[2019-08-18] MEDS ORDERED: SODIUM CHLORIDE 0.9% 500 ML IV ONE (07:38)
[2019-08-18] MEDS: FOLIC ACID 1 MG TAB PO SCH (08:48)
[2019-08-18] MEDS: dilTIAZem HCL 300 MG CAPCR PO SCH (08:48)
[2019-08-18] MEDS: THIAMINE HCL 50 MG TABLET PO SCH (08:48)
[2019-08-18] MEDS: UMECLIDINIUM BROMIDE 62.5MCG/BLISTER 7 PUFFS/INHALER INH SCH (08:49)
--- NOTE | 2019-08-18 09:15 | Gastrointestinal Consultation ---
Date of Consultation August 18, 2019 Assessment & Plan (1) Anemia: 53 year old female w/ history of COPD, Afib on Eliquis, hx of TIAs, HTN, DM II, schizophrenia, ongoing polysubstance abuse (tobacco, ETOH and cocaine) admitted for abnormal labs, anemia w/ reported intermittent episodes of dark/tarry stools last occuring prior to arrival. She does use NSAIDs daily and is on Eliquis NPO EGD today Trend H&H Transfuse PRN HGB < 8 Monitor and document all GI output IV PPI bolus and drip Agree w/ non-urgent paracentesis once medically stable to send for cell count, culture, cytology, protein and albumin Agree w/ IV ceftriaxone as ordered given ascites on CT Should have MRCP once stable given LFT elevation, gallstones Present on Admission?: Yes Supervising Physician Co-Signing Physician Notes I saw and evaluated the patient. It appears that she has been seen by multiple gastroneurology groups in her region to include [facility] and now our group. She notes that she had dark stool prior to admission. The patient has a history of multiple psychiatric problems and polysubstance abuse. It appears she is on anticoagulation in addition to multiple nonsteroidals as an outpatient. Physical examination Disheveled appearing otherwise unremarkable Abdomen soft Impression: Suspect upper gastrointestinal bleeding from a peptic ulcer source given her history of anticoagulation and nonsteroidal use. Recommendations Discontinue use of nonsteroidals Upper endoscopy to be arranged Further recommendations pending findings at time of endoscopy History of Present Illness Reason for Consultation: anemia Requesting Physician: Rc Attending Physician: Neeta Tatum MD History of Present Illness 53 year old female with history of COPD, Afib on Eliquis, hx of TIAs, HTN, DM II, schizophrenia, ongoing polysubstance abuse (tobacco, ETOH and cocaine) admitted through the ED for abnormal labs - GI asked to evaluate for anemia. Pt was seen and evaluated, chart reviewed. She notes that she has been undergoing a work up as an OP for recurrent pancreatitis, gallstones and was to have her GB removed. Suggests saw a PCP yesterday, ordered routine labs and was advised ED given elevated LFTs and anemia. Pt reports she uses NSAIDs and is prescribed a blood thinner although is vague on what medications she is currently using. Does report intermittent dark, tarry stools. Reports her most recent BM was overnight but this was brown. Will occasionally see some BRB on the toilet tissue. Does have intermittent emesis but denies any coffee ground emesis or hematemsis. No fever, chills, CP, SOB. Last ETOH use was about 2 weeks ago She is not clear on last other substance use + NSAIDs + AC for history of afib non contrast CT shows ascites, fatty liver Allergies Allergy/AdvReac Type Severity Reaction Status Date / Time haloperidol Allergy Severe TONGUE Verified 08/17/19 20:34 SWELLING insulin lispro Allergy Intermediate HIVES Verified 08/17/19 20:34 phenol Allergy Intermediate HIVES Verified 08/17/19 20:34 citalopram Allergy Mild ITCHING Verified 08/17/19 20:34 sulfamethoxazole Allergy Mild RASH Verified 08/17/19 20:34 trimethoprim Allergy Mild RASH Verified 08/17/19 20:34 Bactrim Allergy Unknown RASH Verified 12/01/17 16:09 Penicillins Allergy Unknown Hives Verified 08/17/19 20:34 pregabalin [From Lyrica] AdvReac Severe SUICIDAL Verified 08/17/19 20:34 topiramate AdvReac Severe SEIZURE Verified 08/17/19 20:34 LIKE ACTIVITY oxycodone AdvReac Mild ITCH Verified 08/17/19 20:34 Margarine Allergy Severe RASH Uncoded 08/17/19 20:34 Home Medications Home Medications Medication Instructions Recorded Confirmed Type omeprazole 20 mg PO QAM 07/05/18 08/17/19 History valacyclovir 500 mg PO QAM 07/05/18 08/17/19 History lactulose [Constulose] 30 ml PO DAILY PRN 09/29/18 08/17/19 History diltiazem HCl [Cartia XT] 300 mg PO QAM 12/01/18 08/17/19 History apixaban [Eliquis] 2.5 mg PO BID 07/06/19 08/17/19 History calcium carbonate-vitamin D3 1 cap PO QAM 07/06/19 08/17/19 History [Calcium 600 + D(3)] insulin glargine [Lantus U-100 30 unit SUBCUT HS PRN 07/06/19 08/17/19 History Insulin] potassium chloride 20 meq PO BID 07/06/19 08/17/19 History thiamine HCl (vitamin B1) [Vitamin 50 mg PO QAM 07/06/19 08/17/19 History B-1] albuterol sulfate 2.5 mg INHALATION Q4 PRN 08/17/19 08/17/19 History diclofenac sodium [Voltaren] 4 g TOPICAL QID PRN 08/17/19 08/17/19 History diphenhydramine HCl [Benadryl] 50 mg PO Q6H PRN 08/17/19 08/17/19 History ergocalciferol (vitamin D2) 1,250 mcg PO WK 08/17/19 08/17/19 History [Vitamin D2] folic acid 1 mg PO DAILY 08/17/19 08/17/19 History furosemide [Lasix] 20 mg PO DAILY 08/17/19 08/17/19 History hydrocodone-acetaminophen 1 tab PO BID PRN 08/17/19 08/17/19 History meclizine 12.5 mg PO TID PRN 08/17/19 08/17/19 History meloxicam 15 mg PO DAILY 08/17/19 08/17/19 History metformin 1,000 mg PO DAILY 08/17/19 08/17/19 History nicotine (polacrilex) 4 mg BUCCAL Q2H PRN 08/17/19 08/17/19 History perphenazine 18 mg PO BID 08/17/19 08/17/19 History ranitidine HCl 300 mg PO HS 08/17/19 08/17/19 History tiotropium bromide [Spiriva 2 puff INHALATION DAILY 08/17/19 08/17/19 History Respimat] triamcinolone acetonide 1 applic TOPICAL BID PRN 08/17/19 08/17/19 History Patient History Medical History Alcohol induced acute pancreatitis (Resolved) Alcohol use disorder (Chronic) Atrial fibrillation (Chronic) paroxysmal Chronic generalized pain disorder (Chronic) COPD (chronic obstructive pulmonary disease) (Chronic) DM type 2 (diabetes mellitus, type 2) (Chronic) EtOH dependence (Inactive) Fatty liver (Chronic) History of opioid abuse (Chronic) HTN (hypertension) (Chronic) Hx of cocaine abuse Neuropathy (Chronic) Non-sustained ventricular tachycardia (Inactive) Obesity (Chronic) Schizoaffective disorder (Chronic) Sciatic nerve disease (Chronic) Sleep apnea (Chronic) Tobacco use disorder (Chronic) Surgical History H/O foot surgery (Resolved) H/O ovarian cystectomy (Resolved) Family History Other Heart disease Kidney disease Social History Preferred Language: [place] Communication Ability: Effective Visual Impairment: No Limitations 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 Beliefs That Will Affect Care: None marital status: Single Current Living Situation: Family Current Living Situation Comment: lives with brother current occupational status: unemployed and disabled Other Information That Helps Us Care for You: No Feels Safe at Home: Yes Safety Concerns: Feels Safe At This Time Smoking Status: Current some day smoker Tobacco Type: cigarettes ; Cigarettes Per Day: 10 ; Do You Dip or Chew Tobacco: No ; Second Hand Exposure: No ; Tobacco Cessation Education Requested by Patient: No Hx Alcohol Use: Yes Alcohol type: wine and hard liquor Hx Substance Use: No Review of Systems Constitutional: no fever, no chills and no fatigue Respiratory: no cough and no dyspnea Cardiovascular: no chest pain and no dyspnea on exertion Gastrointestinal: + vomiting, + blood in stools and + melena; no nausea, no coffee ground emesis, no hematemesis and no dysphagia Physical Exam Constitutional: WD/WN, vitals as above Neck: trachea midline Respiratory: normal respiratory effort Cardiovascular: Rate/Rhythm: regular rate and regular rhythm Gastrointestinal (Abdomen): Inspection/Auscultation: normal bowel sounds; + abdomen abnormal to inspection (was unable to assess skin) Percussion/Palpation: abdomen soft and + ascites; abdomen nontender, no guarding and abdomen not rigid Skin: no rashes, warm and dry Results & Data ([facility]) Vital Signs (Past 12 Hours) Vital Signs Temp Pulse Resp BP BP Pulse Ox Pulse Ox 08/18/19 08:55 77 106/54 L 08/18/19 08:35 36.5 C 76 18 106/64 98 08/18/19 07:54 36.5 C 71 18 115/69 98 08/18/19 04:22 36.3 C L 78 19 99/51 L 97 08/18/19 00:44 36.5 C 81 18 111/60 99 08/18/19 00:42 95 08/17/19 23:52 68 18 104/72 96 08/17/19 22:45 77 20 123/70 96 Laboratory Results 08/18/19 08/18/19 08/18/19 Range/Units 07:28 06:27 06:22 WBC (4.8-10.8) K/uL RBC (4.2-5.4) M/uL Hgb (12.0-16.0) g/dL Hct (37-47) % MCV (80-100) fL MCH (25-34) pg MCHC (32-36) g/dL RDW Std Deviation (36.4-46.3) fL RDW Coeff of Ally (11.5-14.5) % Plt Count (130-400) K/uL MPV (7.4-10.4) fL Immature Gran % (Auto) % Neut % (Auto) % Lymph % (Auto) % [place] % (Auto) % Eos % (Auto) % Baso % (Auto) % Immature Gran # (Auto) (0.00-0.02) K/uL Neut # (Auto) (1.4-6.5) K/uL Lymph # (Auto) (1.2-3.4) K/uL S[place] # (Auto) (0.11-0.59) K/uL Eos # (Auto) (0-0.5) K/uL Baso # (Auto) (0-0.2) K/uL Target Cells PT (9.0-12.0) Seconds INR (0.9-1.1) Sodium 127 L (136-145) mmol/L Potassium 3.2 L D (3.5-5.1) mmol/L Chloride 96 L (98-107) mmol/L Carbon Dioxide 22 (21-32) mmol/L Anion Gap 9.0 (3-11) BUN 21 H (7-18) mg/dl Creatinine 1.84 H (0.6-1.2) mg/dl Est Cr Clr Drug Dosing 39.5 ml/min Est GFR ( Amer) 35.4 Est GFR (Non-Af Amer) 30.5 BUN/Creatinine Ratio 11.2 (10-20) Glucose 119 H (70-99) mg/dl POC Glucose 134 H (70-99) mg/dl Estimat Average Glucose mg/dl Hemoglobin A1c (4.5-5.6) % Osmolality (280-300) mOsm/kg Lactate (0.4-2.0) mmol/L Calcium 8.1 L (8.5-10.1) mg/dl Magnesium 2.0 (1.8-2.4) mg/dl Total Bilirubin 3.0 H (0.2-1) mg/dl AST 51 H (15-37) U/L ALT 14 (12-78) U/L Alkaline Phosphatase 224 H (45-117) U/L Ammonia 23.5 (11-32) umol/L Total Protein 6.7 (6.4-8.2) gm/dl Albumin 1.7 L (3.4-5.0) gm/dl Globulin 5.0 H (2.5-4.0) gm/dl Albumin/Globulin Ratio 0.3 L (0.9-2) Lipase 416 H (73-393) U/L Urine Color Urine Appearance (Clear) Urine pH (4.5-7.5) Ur Specific [place] (1.000-1.030) Urine Protein (Negative) Urine Glucose (UA) (Negative) Urine Ketones (Negative) Urine Blood (Negative) Urine Nitrite (Negative) Urine Bilirubin (Negative) Urine Urobilinogen (Negative) Ur Leukocyte Esterase (Negative) Urine WBC (Auto) (0-5) /hpf Urine RBC (Auto) (0-4) /hpf U Hyaline Cast (Auto) (0-5) /lpf U Epithel Cells (Auto) (0-5) /lpf Urine Bacteria (Auto) (Negative) Urine Osmolality (500-800) mOsm/kg Ur Random Sodium mmol/L Ethyl Alcohol mg/dL (0-3) mg/dl Blood Type Antibody Screen Crossmatch 08/18/19 08/18/19 08/18/19 Range/Units 06:22 06:22 01:36 WBC 12.12 H (4.8-10.8) K/uL RBC 1.99 L (4.2-5.4) M/uL Hgb 7.1 L (12.0-16.0) g/dL Hct 20.1 L* (37-47) % MCV 101.0 H (80-100) fL MCH 35.7 H (25-34) pg MCHC 35.3 (32-36) g/dL RDW Std Deviation 61.1 H (36.4-46.3) fL RDW Coeff of Ally 16.7 H (11.5-14.5) % Plt Count 144 (130-400) K/uL MPV 10.7 H (7.4-10.4) fL Immature Gran % (Auto) 0.4 % Neut % (Auto) 78.5 % Lymph % (Auto) 10.8 % Sully % (Auto) 9.4 % Eos % (Auto) 0.7 % Baso % (Auto) 0.2 % Immature Gran # (Auto) 0.05 H (0.00-0.02) K/uL Neut # (Auto) 9.52 H (1.4-6.5) K/uL Lymph # (Auto) 1.31 (1.2-3.4) K/uL [place] # (Auto) 1.14 H (0.11-0.59) K/uL Eos # (Auto) 0.08 (0-0.5) K/uL Baso # (Auto) 0.02 (0-0.2) K/uL Target Cells 1+ PT (9.0-12.0) Seconds INR (0.9-1.1) Sodium (136-145) mmol/L Potassium (3.5-5.1) mmol/L Chloride (98-107) mmol/L Carbon Dioxide (21-32) mmol/L Anion Gap (3-11) BUN (7-18) mg/dl Creatinine (0.6-1.2) mg/dl Est Cr Clr Drug Dosing ml/min Est GFR ( Amer) Est GFR (Non-Af Amer) BUN/Creatinine Ratio (10-20) Glucose (70-99) mg/dl POC Glucose 136 H (70-99) mg/dl Estimat Average Glucose 94 mg/dl Hemoglobin A1c 4.9 (4.5-5.6) % Osmolality (280-300) mOsm/kg Lactate (0.4-2.0) mmol/L Calcium (8.5-10.1) mg/dl Magnesium (1.8-2.4) mg/dl Total Bilirubin (0.2-1) mg/dl AST (15-37) U/L ALT (12-78) U/L Alkaline Phosphatase (45-117) U/L Ammonia (11-32) umol/L Total Protein (6.4-8.2) gm/dl Albumin (3.4-5.0) gm/dl Globulin (2.5-4.0) gm/dl Albumin/Globulin Ratio (0.9-2) Lipase (73-393) U/L Urine Color Urine Appearance (Clear) Urine pH (4.5-7.5) Ur Specific [place] (1.000-1.030) Urine Protein (Negative) Urine Glucose (UA) (Negative) Urine Ketones (Negative) Urine Blood (Negative) Urine Nitrite (Negative) Urine Bilirubin (Negative) Urine Urobilinogen (Negative) Ur Leukocyte Esterase (Negative) Urine WBC (Auto) (0-5) /hpf Urine RBC (Auto) (0-4) /hpf U Hyaline Cast (Auto) (0-5) /lpf U Epithel Cells (Auto) (0-5) /lpf Urine Bacteria (Auto) (Negative) Urine Osmolality (500-800) mOsm/kg Ur Random Sodium mmol/L Ethyl Alcohol mg/dL (0-3) mg/dl Blood Type Antibody Screen Crossmatch 08/18/19 08/18/19 08/18/19 Range/Units 00:30 00:30 00:30 WBC (4.8-10.8) K/uL RBC (4.2-5.4) M/uL Hgb (12.0-16.0) g/dL Hct (37-47) % MCV (80-100) fL MCH (25-34) pg MCHC (32-36) g/dL RDW Std Deviation (36.4-46.3) fL RDW Coeff of Ally (11.5-14.5) % Plt Count (130-400) K/uL MPV (7.4-10.4) fL Immature Gran % (Auto) % Neut % (Auto) % Lymph % (Auto) % [place] % (Auto) % Eos % (Auto) % Baso % (Auto) % Immature Gran # (Auto) (0.00-0.02) K/uL Neut # (Auto) (1.4-6.5) K/uL Lymph # (Auto) (1.2-3.4) K/uL [place] # (Auto) (0.11-0.59) K/uL Eos # (Auto) (0-0.5) K/uL Baso # (Auto) (0-0.2) K/uL Target Cells PT (9.0-12.0) Seconds INR (0.9-1.1) Sodium (136-145) mmol/L Potassium (3.5-5.1) mmol/L Chloride (98-107) mmol/L Carbon Dioxide (21-32) mmol/L Anion Gap (3-11) BUN (7-18) mg/dl Creatinine (0.6-1.2) mg/dl Est Cr Clr Drug Dosing ml/min Est GFR ( Amer) Est GFR (Non-Af Amer) BUN/Creatinine Ratio (10-20) Glucose (70-99) mg/dl POC Glucose (70-99) mg/dl Estimat Average Glucose mg/dl Hemoglobin A1c (4.5-5.6) % Osmolality (280-300) mOsm/kg Lactate (0.4-2.0) mmol/L Calcium (8.5-10.1) mg/dl Magnesium (1.8-2.4) mg/dl Total Bilirubin (0.2-1) mg/dl AST (15-37) U/L ALT (12-78) U/L Alkaline Phosphatase (45-117) U/L Ammonia (11-32) umol/L Total Protein (6.4-8.2) gm/dl Albumin (3.4-5.0) gm/dl Globulin (2.5-4.0) gm/dl Albumin/Globulin Ratio (0.9-2) Lipase (73-393) U/L Urine Color Dark Yellow Urine Appearance Cloudy A (Clear) Urine pH 5.0 (4.5-7.5) Ur Specific [place] 1.016 (1.000-1.030) Urine Protein Trace H (Negative) Urine Glucose (UA) Negative (Negative) Urine Ketones Negative (Negative) Urine Blood Negative (Negative) Urine Nitrite Positive A (Negative) Urine Bilirubin 2+ H (Negative) Urine Urobilinogen Negative (Negative) Ur Leukocyte Esterase Trace H (Negative) Urine WBC (Auto) 10-30 H (0-5) /hpf Urine RBC (Auto) 5-10 H (0-4) /hpf U Hyaline Cast (Auto) 10-30 H (0-5) /lpf U Epithel Cells (Auto) >30 H (0-5) /lpf Urine Bacteria (Auto) Negative (Negative) Urine Osmolality 267 L (500-800) mOsm/kg Ur Random Sodium 8 mmol/L Ethyl Alcohol mg/dL (0-3) mg/dl Blood Type Antibody Screen Crossmatch 08/17/19 08/17/19 08/17/19 Range/Units 23:59 23:47 23:47 WBC (4.8-10.8) K/uL RBC (4.2-5.4) M/uL Hgb (12.0-16.0) g/dL Hct (37-47) % MCV (80-100) fL MCH (25-34) pg MCHC (32-36) g/dL RDW Std Deviation (36.4-46.3) fL RDW Coeff of Ally (11.5-14.5) % Plt Count (130-400) K/uL MPV (7.4-10.4) fL Immature Gran % (Auto) % Neut % (Auto) % Lymph % (Auto) % [place] % (Auto) % Eos % (Auto) % Baso % (Auto) % Immature Gran # (Auto) (0.00-0.02) K/uL Neut # (Auto) (1.4-6.5) K/uL Lymph # (Auto) (1.2-3.4) K/uL [place] # (Auto) (0.11-0.59) K/uL Eos # (Auto) (0-0.5) K/uL Baso # (Auto) (0-0.2) K/uL Target Cells PT (9.0-12.0) Seconds INR (0.9-1.1) Sodium (136-145) mmol/L Potassium (3.5-5.1) mmol/L Chloride (98-107) mmol/L Carbon Dioxide (21-32) mmol/L Anion Gap (3-11) BUN (7-18) mg/dl Creatinine (0.6-1.2) mg/dl Est Cr Clr Drug Dosing ml/min Est GFR ( Amer) Est GFR (Non-Af Amer) BUN/Creatinine Ratio (10-20) Glucose (70-99) mg/dl POC Glucose (70-99) mg/dl Estimat Average Glucose mg/dl Hemoglobin A1c (4.5-5.6) % Osmolality 271 L (280-300) mOsm/kg Lactate 1.4 (0.4-2.0) mmol/L Calcium (8.5-10.1) mg/dl Magnesium (1.8-2.4) mg/dl Total Bilirubin (0.2-1) mg/dl AST (15-37) U/L ALT (12-78) U/L Alkaline Phosphatase (45-117) U/L Ammonia (11-32) umol/L Total Protein (6.4-8.2) gm/dl Albumin (3.4-5.0) gm/dl Globulin (2.5-4.0) gm/dl Albumin/Globulin Ratio (0.9-2) Lipase (73-393) U/L Urine Color Urine Appearance (Clear) Urine pH (4.5-7.5) Ur Specific [place] (1.000-1.030) Urine Protein (Negative) Urine Glucose (UA) (Negative) Urine Ketones (Negative) Urine Blood (Negative) Urine Nitrite (Negative) Urine Bilirubin (Negative) Urine Urobilinogen (Negative) Ur Leukocyte Esterase (Negative) Urine WBC (Auto) (0-5) /hpf Urine RBC (Auto) (0-4) /hpf U Hyaline Cast (Auto) (0-5) /lpf U Epithel Cells (Auto) (0-5) /lpf Urine Bacteria (Auto) (Negative) Urine Osmolality (500-800) mOsm/kg Ur Random Sodium mmol/L Ethyl Alcohol mg/dL < 3.0 (0-3) mg/dl Blood Type Antibody Screen Crossmatch 08/17/19 08/17/19 08/17/19 Range/Units 23:47 23:47 20:34 WBC 14.45 H (4.8-10.8) K/uL RBC 2.21 L (4.2-5.4) M/uL Hgb 8.0 L (12.0-16.0) g/dL Hct 22.6 L (37-47) % MCV 102.3 H (80-100) fL MCH 36.2 H (25-34) pg MCHC 35.4 (32-36) g/dL RDW Std Deviation 61.8 H (36.4-46.3) fL RDW Coeff of Ally 16.7 H (11.5-14.5) % Plt Count 159 (130-400) K/uL MPV 10.9 H (7.4-10.4) fL Immature Gran % (Auto) 0.5 % Neut % (Auto) 79.0 % Lymph % (Auto) 12.9 % [place] % (Auto) 7.1 % Eos % (Auto) 0.4 % Baso % (Auto) 0.1 % Immature Gran # (Auto) 0.07 H (0.00-0.02) K/uL Neut # (Auto) 11.40 H (1.4-6.5) K/uL Lymph # (Auto) 1.87 (1.2-3.4) K/uL [place] # (Auto) 1.03 H (0.11-0.59) K/uL Eos # (Auto) 0.06 (0-0.5) K/uL Baso # (Auto) 0.02 (0-0.2) K/uL Target Cells PT (9.0-12.0) Seconds INR (0.9-1.1) Sodium 127 L (136-145) mmol/L Potassium 2.7 L (3.5-5.1) mmol/L Chloride 94 L (98-107) mmol/L Carbon Dioxide 25 (21-32) mmol/L Anion Gap 8.0 (3-11) BUN 21 H (7-18) mg/dl Creatinine 2.04 H (0.6-1.2) mg/dl Est Cr Clr Drug Dosing 35.7 ml/min Est GFR ( Amer) 31.2 Est GFR (Non-Af Amer) 27.0 BUN/Creatinine Ratio 10.2 (10-20) Glucose 113 H (70-99) mg/dl POC Glucose (70-99) mg/dl Estimat Average Glucose mg/dl Hemoglobin A1c (4.5-5.6) % Osmolality (280-300) mOsm/kg Lactate (0.4-2.0) mmol/L Calcium 8.1 L (8.5-10.1) mg/dl Magnesium 1.0 L (1.8-2.4) mg/dl Total Bilirubin 3.1 H (0.2-1) mg/dl AST 62 H (15-37) U/L ALT 17 (12-78) U/L Alkaline Phosphatase 261 H (45-117) U/L Ammonia (11-32) umol/L Total Protein 7.3 (6.4-8.2) gm/dl Albumin 1.8 L (3.4-5.0) gm/dl Globulin 5.5 H (2.5-4.0) gm/dl Albumin/Globulin Ratio 0.3 L (0.9-2) Lipase 658 H (73-393) U/L Urine Color Urine Appearance (Clear) Urine pH (4.5-7.5) Ur Specific [place] (1.000-1.030) Urine Protein (Negative) Urine Glucose (UA) (Negative) Urine Ketones (Negative) Urine Blood (Negative) Urine Nitrite (Negative) Urine Bilirubin (Negative) Urine Urobilinogen (Negative) Ur Leukocyte Esterase (Negative) Urine WBC (Auto) (0-5) /hpf Urine RBC (Auto) (0-4) /hpf U Hyaline Cast (Auto) (0-5) /lpf U Epithel Cells (Auto) (0-5) /lpf Urine Bacteria (Auto) (Negative) Urine Osmolality (500-800) mOsm/kg Ur Random Sodium mmol/L Ethyl Alcohol mg/dL (0-3) mg/dl Blood Type Antibody Screen Crossmatch 08/17/19 08/17/19 08/17/19 Range/Units 20:34 20:34 20:34 WBC (4.8-10.8) K/uL RBC (4.2-5.4) M/uL Hgb (12.0-16.0) g/dL Hct (37-47) % MCV (80-100) fL MCH (25-34) pg MCHC (32-36) g/dL RDW Std Deviation (36.4-46.3) fL RDW Coeff of Ally (11.5-14.5) % Plt Count (130-400) K/uL MPV (7.4-10.4) fL Immature Gran % (Auto) % Neut % (Auto) % Lymph % (Auto) % [place] % (Auto) % Eos % (Auto) % Baso % (Auto) % Immature Gran # (Auto) (0.00-0.02) K/uL Neut # (Auto) (1.4-6.5) K/uL Lymph # (Auto) (1.2-3.4) K/uL [place] # (Auto) (0.11-0.59) K/uL Eos # (Auto) (0-0.5) K/uL Baso # (Auto) (0-0.2) K/uL Target Cells PT 16.6 H (9.0-12.0) Seconds INR 1.7 H (0.9-1.1) Sodium (136-145) mmol/L Potassium (3.5-5.1) mmol/L Chloride (98-107) mmol/L Carbon Dioxide (21-32) mmol/L Anion Gap (3-11) BUN (7-18) mg/dl Creatinine (0.6-1.2) mg/dl Est Cr Clr Drug Dosing ml/min Est GFR ( Amer) Est GFR (Non-Af Amer) BUN/Creatinine Ratio (10-20) Glucose (70-99) mg/dl POC Glucose (70-99) mg/dl Estimat Average Glucose mg/dl Hemoglobin A1c (4.5-5.6) % Osmolality (280-300) mOsm/kg Lactate 2.4 H* (0.4-2.0) mmol/L Calcium (8.5-10.1) mg/dl Magnesium (1.8-2.4) mg/dl Total Bilirubin (0.2-1) mg/dl AST (15-37) U/L ALT (12-78) U/L Alkaline Phosphatase (45-117) U/L Ammonia 52.7 H (11-32) umol/L Total Protein (6.4-8.2) gm/dl Albumin (3.4-5.0) gm/dl Globulin (2.5-4.0) gm/dl Albumin/Globulin Ratio (0.9-2) Lipase (73-393) U/L Urine Color Urine Appearance (Clear) Urine pH (4.5-7.5) Ur Specific [place] (1.000-1.030) Urine Protein (Negative) Urine Glucose (UA) (Negative) Urine Ketones (Negative) Urine Blood (Negative) Urine Nitrite (Negative) Urine Bilirubin (Negative) Urine Urobilinogen (Negative) Ur Leukocyte Esterase (Negative) Urine WBC (Auto) (0-5) /hpf Urine RBC (Auto) (0-4) /hpf U Hyaline Cast (Auto) (0-5) /lpf U Epithel Cells (Auto) (0-5) /lpf Urine Bacteria (Auto) (Negative) Urine Osmolality (500-800) mOsm/kg Ur Random Sodium mmol/L Ethyl Alcohol mg/dL (0-3) mg/dl Blood Type Antibody Screen Crossmatch 08/17/19 Range/Units 20:34 WBC (4.8-10.8) K/uL RBC (4.2-5.4) M/uL Hgb (12.0-16.0) g/dL Hct (37-47) % MCV (80-100) fL MCH (25-34) pg MCHC (32-36) g/dL RDW Std Deviation (36.4-46.3) fL RDW Coeff of Ally (11.5-14.5) % Plt Count (130-400) K/uL MPV (7.4-10.4) fL Immature Gran % (Auto) % Neut % (Auto) % Lymph % (Auto) % [place] % (Auto) % Eos % (Auto) % Baso % (Auto) % Immature Gran # (Auto) (0.00-0.02) K/uL Neut # (Auto) (1.4-6.5) K/uL Lymph # (Auto) (1.2-3.4) K/uL [place] # (Auto) (0.11-0.59) K/uL Eos # (Auto) (0-0.5) K/uL Baso # (Auto) (0-0.2) K/uL Target Cells PT (9.0-12.0) Seconds INR (0.9-1.1) Sodium (136-145) mmol/L Potassium (3.5-5.1) mmol/L Chloride (98-107) mmol/L Carbon Dioxide (21-32) mmol/L Anion Gap (3-11) BUN (7-18) mg/dl Creatinine (0.6-1.2) mg/dl Est Cr Clr Drug Dosing ml/min Est GFR ( Amer) Est GFR (Non-Af Amer) BUN/Creatinine Ratio (10-20) Glucose (70-99) mg/dl POC Glucose (70-99) mg/dl Estimat Average Glucose mg/dl Hemoglobin A1c (4.5-5.6) % Osmolality (280-300) mOsm/kg Lactate (0.4-2.0) mmol/L Calcium (8.5-10.1) mg/dl Magnesium (1.8-2.4) mg/dl Total Bilirubin (0.2-1) mg/dl AST (15-37) U/L ALT (12-78) U/L Alkaline Phosphatase (45-117) U/L Ammonia (11-32) umol/L Total Protein (6.4-8.2) gm/dl Albumin (3.4-5.0) gm/dl Globulin (2.5-4.0) gm/dl Albumin/Globulin Ratio (0.9-2) Lipase (73-393) U/L Urine Color Urine Appearance (Clear) Urine pH (4.5-7.5) Ur Specific [place] (1.000-1.030) Urine Protein (Negative) Urine Glucose (UA) (Negative) Urine Ketones (Negative) Urine Blood (Negative) Urine Nitrite (Negative) Urine Bilirubin (Negative) Urine Urobilinogen (Negative) Ur Leukocyte Esterase (Negative) Urine WBC (Auto) (0-5) /hpf Urine RBC (Auto) (0-4) /hpf U Hyaline Cast (Auto) (0-5) /lpf U Epithel Cells (Auto) (0-5) /lpf Urine Bacteria (Auto) (Negative) Urine Osmolality (500-800) mOsm/kg Ur Random Sodium mmol/L Ethyl Alcohol mg/dL (0-3) mg/dl Blood Type O Positive Antibody Screen NEGATIVE Crossmatch See Detail (1) Anemia Anemia type: unspecified type Qualified Code(s): D64.9 - Anemia, unspecified
--- NOTE | 2019-08-18 10:13 | Hospitalist Progress Note ---
Date of Service August 18, 2019 Assessment & Plan (1) Abdominal pain: Multifactorial : Admitted with abdominal distention/pain: Possible secondary to tense ascites History of alcohol abuse/abdomen pelvis shows moderate ascites(new diagnosis) therapeutic and Diagnostic paracentesis -Ordered IV Albumin /IV rocephin for possible SBP ( mild leukocytosis ) will order Blood culture INR 1.7 (possible due to liver cirrhosis-Alcoholic vs hepatic steatoses ) And been on Eliquis for history of paroxysmal A. fib, which is discontinued IV Vit K 5 mg x1 ordered( for thoracentesis ) repeat INR at noon Anemia : Hb drop noted 7.1 ( no dark tarry stool since admission ) -ordered 1 unit of PRBC tx concern for UGIB (possible etiologies include NSAID induced gastritis, PUD, esophageal varices (given portal hypertension on CT) in the setting of Eliquis intake for paroxysmal Afib eliquis on hold ordered for PPI gtt GI eval requested , appreciate input scheduled for EGD today Hyponatremia, : possible due to chronic liver disease /ETOH abuse follow BMP Given patient's presentation with ascites, lower extremity edema/volume overload, Lasix is not given secondary to acute renal failure May benefit with fluid restriction nephrology consulted ACUTE RENAL FAILURE : secondary to acute illness, hx of NSAID intake given gentle Iv fluild /creatinine improved, will discontinue IV fluids, patient may need fluid restriction given evidence of volume overload/ascites/hyponatremia, follow BMP nephrology consult HYPOKALEMIA : given 40meq PO K x3 last night repeat BMP ordered for noon HTN, BP on the lower side On Cardizem secondary to history of paroxysmal A. fib, ordered to hold for SBP less than 100 monitor hx TIAs as per records avoid ASA /antiplatelets : Anemia/concern for GI bleed pt does not have any neurological deficit chronic respiratory failure secondary to COPD on home O2, -bilateral wheeze noted ordered for Neb tx DM2 insulin requiring, well-controlled as of recent outpatient hemoglobin A1c of 06 May 2019 insulin SSI currently NPO for EGD mood disorder/personality disorder/paranoid schizophrenia, history ongoing cocaine/alcohol/tobacco abuse. counselling for cessation provided DVT prophylaxis. SCDs RE GI bleed Full code Disposition: Expected to be discharged home when medically stable Admission and Anticipated Discharge Date Admission Date: August 17, 2019 Subjective Sitting up on edge of bed, reports of feeling much better, had bowel movement this morning, loose (given lactulose)/brown color No nausea, no vomiting Abdomen remains distended Denies of any abdominal pain except for discomfort from abdominal distention/bloating No fever or chills Review of Systems Review of Systems: All systems reviewed & are unremarkable except as noted in HPI & below Eyes: Icteric sclera Respiratory: no cough, no dyspnea, no dyspnea on exertion and no wheezing Cardiovascular: + edema; no chest pain and no lightheadedness Gastrointestinal: + abdominal pain, + diarrhea/loose stools and + problem reported (Tense abdominal distention/ascites); no nausea, no vomiting, no coffee ground emesis and no blood in stools Genitourinary: no dysuria, no urinary frequency and no urinary hesitancy Musculoskeletal: no muscle weakness Integumentary: no unusual bruising Neurologic: no unsteadiness, no falls and no generalized weakness Psychiatric: no confusion, no paranoia, no hallucinations and no auditory hallucinations Physical Exam Constitutional: WD/WN, vitals as above + obese; no acute distress Eyes: + scleral abnormality (Icteric sclera) ENMT: external ear and nose normal, oropharynx normal Neck: trachea midline, no thyromegaly Respiratory: normal respiratory effort, lungs clear to auscultation Cardiovascular: Rate/Rhythm: regular rate and regular rhythm Extremities: + pedal edema and + edema (+2 bilateral pitting edema) Gastrointestinal (Abdomen): Inspection/Auscultation: + abdomen distended and normal bowel sounds Percussion/Palpation: + abdomen tender (On lower abdomen), abdomen soft and + ascites (Tense ascites) Musculoskeletal: no cyanosis or clubbing, extremities motor strength 5/5 Skin: no rashes, warm and dry Neurologic: PERRL, EOMI, accommodation nl, no face palsy, no dysarthria Psychiatric: Orientation: alert and oriented x 3 Insight: + limited insight Results & Data ([facility]) Vital Signs (Past 12 Hours) Vital Signs Temp Pulse Pulse Resp BP BP BP 08/18/19 09:49 36.5 C 78 18 101/64 08/18/19 09:31 36.6 C 75 18 100/56 L 08/18/19 08:55 77 106/54 L 08/18/19 08:35 36.5 C 76 18 106/64 08/18/19 07:54 36.5 C 71 18 115/69 08/18/19 04:22 36.3 C L 78 19 99/51 L 08/18/19 00:44 36.5 C 81 18 111/60 08/18/19 00:42 08/17/19 23:52 68 18 104/72 08/17/19 22:45 77 20 123/70 Pulse Ox Pulse Ox 08/18/19 09:49 98 08/18/19 09:31 96 08/18/19 08:55 08/18/19 08:35 98 08/18/19 07:54 98 08/18/19 04:22 97 08/18/19 00:44 99 08/18/19 00:42 95 08/17/19 23:52 96 08/17/19 22:45 96 (1) Abdominal pain Abdominal location: epigastric Qualified Code(s): R10.13 - Epigastric pain
[2019-08-18] MEDS ORDERED: ALBUT/IPRATROP 3MG/0.5MG NEB 3 ML VIAL NEB PRN (10:20)
--- NOTE | 2019-08-18 10:38 | Anesthesiology Consultation ---
Date of Service August 18, 2019 Assessment & Plan (1) Encounter for pre-operative examination: Chart Review Chart Review: Acceptable Risk for Surgery and Patient NOT seen in Pre Admission Testing Consults Requested none History Surgery Operation Date: 08/18/19 17:00 Proposed Procedures p Esophagogastroduodenoscopy Dr Isaac Gray Height/Weight Height: 5 ft 6 in Weight: 90 kg Allergies Allergy/AdvReac Type Severity Reaction Status Date / Time haloperidol Allergy Severe TONGUE Verified 08/17/19 20:34 SWELLING insulin lispro Allergy Intermediate HIVES Verified 08/17/19 20:34 phenol Allergy Intermediate HIVES Verified 08/17/19 20:34 citalopram Allergy Mild ITCHING Verified 08/17/19 20:34 sulfamethoxazole Allergy Mild RASH Verified 08/17/19 20:34 trimethoprim Allergy Mild RASH Verified 08/17/19 20:34 Bactrim Allergy Unknown RASH Verified 12/01/17 16:09 Penicillins Allergy Unknown Hives Verified 08/17/19 20:34 pregabalin [From Lyrica] AdvReac Severe SUICIDAL Verified 08/17/19 20:34 topiramate AdvReac Severe SEIZURE Verified 08/17/19 20:34 LIKE ACTIVITY oxycodone AdvReac Mild ITCH Verified 08/17/19 20:34 Margarine Allergy Severe RASH Uncoded 08/17/19 20:34 Medications Home Medications Medication Instructions Recorded Confirmed Last Taken omeprazole 20 mg PO QAM 07/05/18 08/17/19 08/17/19 valacyclovir 500 mg PO QAM 07/05/18 08/17/19 08/17/19 lactulose [Constulose] 30 ml PO DAILY PRN 09/29/18 08/17/19 10/09/18 diltiazem HCl [Cartia XT] 300 mg PO QAM 12/01/18 08/17/19 08/17/19 apixaban [Eliquis] 2.5 mg PO BID 07/06/19 08/17/19 08/17/19 08:00 calcium carbonate-vitamin D3 1 cap PO QAM 07/06/19 08/17/19 Unknown [Calcium 600 + D(3)] insulin glargine [Lantus U-100 30 unit SUBCUT HS PRN 07/06/19 08/17/19 Unknown Insulin] potassium chloride 20 meq PO BID 07/06/19 08/17/19 Unknown thiamine HCl (vitamin B1) [Vitamin 50 mg PO QAM 07/06/19 08/17/19 Unknown B-1] albuterol sulfate 2.5 mg INHALATION Q4 PRN 08/17/19 08/17/19 Unknown diclofenac sodium [Voltaren] 4 g TOPICAL QID PRN 08/17/19 08/17/19 Unknown diphenhydramine HCl [Benadryl] 50 mg PO Q6H PRN 08/17/19 08/17/19 Unknown ergocalciferol (vitamin D2) 1,250 mcg PO WK 08/17/19 08/17/19 Unknown [Vitamin D2] folic acid 1 mg PO DAILY 08/17/19 08/17/19 Unknown furosemide [Lasix] 20 mg PO DAILY 08/17/19 08/17/19 Unknown hydrocodone-acetaminophen 1 tab PO BID PRN 08/17/19 08/17/19 Unknown meclizine 12.5 mg PO TID PRN 08/17/19 08/17/19 Unknown meloxicam 15 mg PO DAILY 08/17/19 08/17/19 Unknown metformin 1,000 mg PO DAILY 08/17/19 08/17/19 Unknown nicotine (polacrilex) 4 mg BUCCAL Q2H PRN 08/17/19 08/17/19 Unknown perphenazine 18 mg PO BID 08/17/19 08/17/19 Unknown ranitidine HCl 300 mg PO HS 08/17/19 08/17/19 Unknown tiotropium bromide [Spiriva 2 puff INHALATION DAILY 08/17/19 08/17/19 Unknown Respimat] triamcinolone acetonide 1 applic TOPICAL BID PRN 08/17/19 08/17/19 Unknown Active Medications Generic Name Dose Route Start Last Admin Trade Name Freq PRN Reason Stop Dose Admin Diltiazem HCl 300 mg 08/18/19 09:00 08/18/19 08:48 Cardizem Cd PO 09/17/19 08:59 300 mg QAM CARLOS Administration Folic Acid 1 mg 08/18/19 09:00 08/18/19 08:48 Folvite PO 09/17/19 08:59 1 mg DAILY CARLOS Administration Pantoprazole Sodium 40 mg/ 100 mls @ 20 mls/hr 08/17/19 23:00 08/18/19 09:48 Dextrose IV 09/16/19 22:59 20 mls/hr Q5H CARLOS Administration Albumin Human 50 mls @ 50 mls/hr 08/18/19 01:00 08/18/19 07:20 Albumin 25% IV 08/21/19 00:59 Infused Q6H CARLOS Infusion Insulin Aspart 0 units 08/18/19 00:36 08/18/19 07:46 Novolog Flexpen SC 09/17/19 00:35 Not Given ACHS CARLOS Perphenazine 18 mg 08/18/19 00:36 08/18/19 08:45 Trilafon PO 09/17/19 00:35 Not Given BID CARLOS Thiamine HCl 50 mg 08/18/19 09:00 08/18/19 08:48 Vitamin B-1 PO 09/17/19 08:59 50 mg QAM CARLOS Administration Umeclidinium Moran 1 puffs 08/18/19 09:00 08/18/19 08:49 Incruse Ellipta INH 09/17/19 08:59 1 puffs DAILY CARLOS Administration Zinc Acetate/Diphenhydramine 1 appln 08/18/19 00:36 08/18/19 02:03 Benadryl Extra Strength EXT 09/17/19 00:35 1 appln QID PRN Administration itchy skin NPO Date Last Intake of Fluids: 08/17/19 Time Last Intake of Fluids: 23:59 Last Intake of Fluids Comment: sip with meds at 0930 Date Last Intake of Solids: 08/17/19 Time Last Intake of Solids: 13:00 Past Medical History Medical History Alcohol induced acute pancreatitis (Resolved) Alcohol use disorder (Chronic) Atrial fibrillation (Chronic) paroxysmal Chronic generalized pain disorder (Chronic) COPD (chronic obstructive pulmonary disease) (Chronic) DM type 2 (diabetes mellitus, type 2) (Chronic) EtOH dependence (Inactive) Fatty liver (Chronic) History of opioid abuse (Chronic) HTN (hypertension) (Chronic) Hx of cocaine abuse Neuropathy (Chronic) Non-sustained ventricular tachycardia (Inactive) Obesity (Chronic) Schizoaffective disorder (Chronic) Sciatic nerve disease (Chronic) Sleep apnea (Chronic) Tobacco use disorder (Chronic) Exercise / Class Metabolic Activity III < 4 Walking/Shop/Light housework Past Family History Family History Other Heart disease Kidney disease Past Surgical History Surgical History H/O foot surgery (Resolved) H/O ovarian cystectomy (Resolved) Past Anesthesia History No Hx of Anesthesia Complications and No Family Hx of Anesthesia Complications History of PONV No Hx of PONV and No Hx of Motion Sickness Social History Smoking Status: Current some day smoker tobacco type: cigarettes Smoking cigarettes per day: 10 Do You Dip or Chew Tobacco: No Hx Alcohol Use: Yes Alcohol type: wine and hard liquor alcohol intake frequency: 3 or more drinks per day Alcohol Intake Frequency Comment: last drink 2 weeks ago Hx Substance Use: No substance use type: former substance user Last Used Substance: Unknown Physical Exam Vital Signs Last Vital Signs Temp 36.4 C L 08/18/19 10:09 Pulse 83 08/18/19 10:09 Resp 21 08/18/19 10:09 BP 111/66 08/18/19 10:09 Pulse Ox 95 08/18/19 10:09 Testing Laboratory Results 08/18/19 06:22 08/18/19 06:22 PT 16.6 Seconds (9.0-12.0) H 08/17/19 20:34 INR 1.7 (0.9-1.1) H 08/17/19 20:34 Hemoglobin A1c 4.9 % (4.5-5.6) 08/18/19 06:22 Urine Color Dark Yellow 08/18/19 00:30 Urine Appearance Cloudy (Clear) A 08/18/19 00:30 Urine pH 5.0 (4.5-7.5) 08/18/19 00:30 Ur Specific [place] 1.016 (1.000-1.030) 08/18/19 00:30 Urine Protein Trace (Negative) H 08/18/19 00:30 Urine Glucose (UA) Negative (Negative) 08/18/19 00:30 Urine Ketones Negative (Negative) 08/18/19 00:30 Urine Nitrite Positive (Negative) A 08/18/19 00:30 Ur Leukocyte Esterase Trace (Negative) H 08/18/19 00:30 Urine WBC (Auto) 10-30 /hpf (0-5) H 08/18/19 00:30 Urine RBC (Auto) 5-10 /hpf (0-4) H 08/18/19 00:30 U Hyaline Cast (Auto) 10-30 /lpf (0-5) H 08/18/19 00:30 U Epithel Cells (Auto) >30 /lpf (0-5) H 08/18/19 00:30 Urine Bacteria (Auto) Negative (Negative) 08/18/19 00:30 Blood Type O Positive 08/17/19 20:34 Antibody Screen NEGATIVE 08/17/19 20:34 08/18/19 08/18/19 07:28 01:36 POC Glucose 134 H 136 H Electrocardiogram Date: 08/17/19 Findings: + NSR @ (73) Normal sinus rhythm Normal ECG When compared with ECG of 01-JAN-2019 00:13, Criteria for Septal infarct are no longer Present Other Testing Electrocardiogram Date: 01/01/19 Findings: + NSR @ (94 prolonged QT) and + no change from (12/23/18) Chest X-Ray Date: 05/04/19 Findings: + NAD Echocardiogram Date: 12/17/18 LV Function: normal Valvular Disease: + no significant valvular disease
--- NOTE | 2019-08-18 11:09 | Hospitalist Progress Note ---
Date of Service August 18, 2019 Assessment & Plan Admission and Anticipated Discharge Date Admission Date: August 17, 2019 Subjective Attending addendum: Acute renal failure with underlying CKD stage III: GFR less than 40 Creatinine 0.58 on labs 05/06/2019 Admitted with creatinine 2.04, with IV fluids improved to 1.84 Continue with IV Albumin Ordered to hold IV fluids Avoid NSAIDs, contrast studies Nephrology consult requested Possible pancreatitis: Mild elevation of lipase noted 416 Patient does not have any right upper quadrant pain or discomfort, no nausea History of alcohol abuse, last alcohol intake approximately 2 weeks back/EtOH level less than 3 Persistent nausea vomiting for last few days Patient is at present n.p.o. Repeat lipase level in a.m. Strict alcohol abstinence advised Positive UA/rule out UTI UA: Shows positive nitrite/trace leukocyte esterase On IV Rocephin Follow urine culture History of gallbladder disease: Patient was scheduled for cholecystectomy, did not follow-up with surgery CT abdomen pelvis shows mild gallbladder wall thickening with gallbladder sludge, no pericholecystic fluid Suggestive of chronic cholecystitis No urgent need for surgical intervention Appreciate input from GI, MRCP will be ordered after acute issues: Anemia, ascites is corrected Neeta Tatum MD Results & Data ([facility]) Vital Signs (Past 12 Hours) Vital Signs Temp Pulse Pulse Resp BP BP BP 08/18/19 10:41 36.6 C 74 18 97/60 L 08/18/19 10:39 36.6 C 74 18 97/60 L 08/18/19 10:09 36.4 C L 83 21 111/66 08/18/19 09:49 36.5 C 78 18 101/64 08/18/19 09:31 36.6 C 75 18 100/56 L 08/18/19 08:55 77 106/54 L 08/18/19 08:35 36.5 C 76 18 106/64 08/18/19 07:54 36.5 C 71 18 115/69 08/18/19 04:22 36.3 C L 78 19 99/51 L 08/18/19 00:44 36.5 C 81 18 111/60 08/18/19 00:42 08/17/19 23:52 68 18 104/72 Pulse Ox Pulse Ox 08/18/19 10:41 98 08/18/19 10:39 98 08/18/19 10:09 95 08/18/19 09:49 98 08/18/19 09:31 96 08/18/19 08:55 08/18/19 08:35 98 08/18/19 07:54 98 08/18/19 04:22 97 08/18/19 00:44 99 08/18/19 00:42 95 08/17/19 23:52 96
[2019-08-18] MEDS ORDERED: LIDOCAINE HCL 2% 2 ML VIAL/AMP(20MG/ML) INFIL ONE (11:50)
[2019-08-18] MEDS ORDERED: PHENYLEPHRINE 100MCG/ML 5ML SYR ONE (11:50)
[2019-08-18] MEDS ORDERED: PROPOFOL IV EMULSION 10 MG/ML 20 ML VIAL IV ONE (11:50)
--- NOTE | 2019-08-18 12:19 | GI REPORT ---
Patient Name: Rebeca Judge Procedure Date: 08/18/2019 11:55 AM Date of : 1965 Admit Type: Inpatient Age: 53 Gender: Female Attending MD: Alexandra Gray DO Procedure: Upper GI endoscopy Providers: Alexandra Gray DO Referring MD: Neeta Curiel Indications: Melena Medicines: Monitored Anesthesia Care Complications: No immediate complications. Estimated blood loss: Minimal. Estimated Blood Loss: Estimated blood loss was minimal. Procedure: Pre-Anesthesia Assessment: - Prior to the procedure, a History and Physical was performed, and patient medications, allergies and sensitivities were reviewed. The patient's tolerance of previous anesthesia was reviewed. - The risks and benefits of the procedure and the sedation options and risks were discussed with the patient. All questions were answered and informed consent was obtained. - Patient identification and proposed procedure were verified prior to the procedure by the physician, the nurse and the therapeutic assistant. The procedure was verified in the procedure room. - Pre-procedure physical examination revealed no contraindications to sedation. - ASA Grade Assessment: IV - A patient with severe systemic disease that is a constant threat to life. - After reviewing the risks and benefits, the patient was deemed in satisfactory condition to undergo the procedure. - The anesthesia plan was to use monitored anesthesia care (MAC). - Immediately prior to administration of medications, the patient was re-assessed for adequacy to receive sedatives. - The heart rate, respiratory rate, oxygen saturations, blood pressure, adequacy of pulmonary ventilation, and response to care were monitored throughout the procedure. - The physical status of the patient was re-assessed after the procedure. After obtaining informed consent, the endoscope was passed under direct vision. Throughout the procedure, the patient's blood pressure, pulse, and oxygen saturations were monitored continuously. The Endoscope was introduced through the mouth, and advanced to the third part of duodenum. The upper GI endoscopy was accomplished without difficulty. The patient tolerated the procedure well. Findings: The examined esophagus was normal. The Z-line was regular and was found 40 cm from the incisors. Diffuse mild inflammation characterized by congestion (edema), erythema and granularity was found in the entire examined stomach. The examined duodenum was normal. Impression: - Normal esophagus. - Z-line regular, 40 cm from the incisors. - Gastritis. - Normal examined duodenum. - No specimens collected. Recommendation: - [facility] to [facility]. - Perform a colonoscopy at appointment to be scheduled. Alexandra Gray D.O. Alexandra Gray, DO 08/18/2019 12:18:58 PM This report has been signed electronically. Note Initiated On: 08/18/2019 11:55 AM Number of Addenda: 0 I attest to the content of the Intraoperative Record and orders documented therein, exceptions below {[id number]}
--- NOTE | 2019-08-18 12:22 | Communication Note ---
Date of Service: August 18, 2019 The patient underwent upper endoscopy this morning. Findings notable for mild gastritis of the stomach. There was no evidence of varices or peptic ulcer disease. I wonder if her melena is related to her anticoagulation as the patient is on Eliquis as an outpatient. Given the lack of a specific finding perhaps we are best off proceeding with colonoscopy to evaluate for right-sided colonic source
[2019-08-18] MEDS ORDERED: LAVAGE SOLUTION 4000ML PO SCH (13:00)
--- NOTE | 2019-08-18 13:24 | Anesthesiology Progress Note ---
Date of Service August 18, 2019 Anesthesia Post Procedure Vital Signs Vital Signs: Temp Pulse Pulse Resp BP BP BP 08/18/19 13:19 36.3 C L 72 18 101/66 08/18/19 12:52 71 18 96/71 L 08/18/19 12:39 65 18 98/67 L 08/18/19 12:23 36.5 C 70 18 90/54 L 08/18/19 11:39 36.8 C 72 18 92/56 L 08/18/19 10:41 36.6 C 74 18 97/60 L 08/18/19 10:39 36.6 C 74 18 97/60 L 08/18/19 10:09 36.4 C L 83 21 111/66 08/18/19 09:49 36.5 C 78 18 101/64 08/18/19 09:31 36.6 C 75 18 100/56 L 08/18/19 08:55 77 106/54 L 08/18/19 08:35 36.5 C 76 18 106/64 08/18/19 07:54 36.5 C 71 18 115/69 08/18/19 07:15 64 08/18/19 04:22 36.3 C L 78 19 99/51 L 08/18/19 00:44 36.5 C 81 18 111/60 08/18/19 00:42 08/17/19 23:52 68 18 104/72 08/17/19 22:45 77 20 123/70 08/17/19 20:50 73 20 101/58 L 08/17/19 18:13 36.6 C 93 H 20 113/73 Pulse Ox Pulse Ox 08/18/19 13:19 98 08/18/19 12:52 96 08/18/19 12:39 96 08/18/19 12:23 96 08/18/19 11:39 100 08/18/19 10:41 98 08/18/19 10:39 98 08/18/19 10:09 95 08/18/19 09:49 98 08/18/19 09:31 96 08/18/19 08:55 08/18/19 08:35 98 08/18/19 07:54 98 08/18/19 07:15 08/18/19 04:22 97 08/18/19 00:44 99 08/18/19 00:42 95 08/17/19 23:52 96 08/17/19 22:45 96 08/17/19 20:50 98 08/17/19 18:13 98 Pain Intensity Abdomen: Pain Intensity: 6 Transfer of Care Handoff Completed per policy Notes Mental Status: alert / awake / arousable and participated in evaluation Patient Amnestic to Procedure: Yes Nausea / Vomiting: adequately controlled Pain: adequately controlled Airway Patency, RR, SpO2: stable & adequate BP & HR: stable & adequate Hydration State: stable & adequate Anesthetic Complications: no major complications apparent and Pt Satisfied with anesthetic care
[2019-08-18] MEDS ORDERED: LORazepam 0.5 MG/1 ML VIAL IV SCH (14:00)
--- NOTE | 2019-08-18 14:22 | Nephrology Consultation ---
Date of Consultation August 18, 2019 Assessment & Plan (1) Acute renal failure (ARF): baseline creatinine 0.6-0.8. presenting creatinine 08/17 was 2.0. slight improvement today -f/u urine cx; note however no bacteria on ua, making infection less likely -f/u recheck bmp -continue albumin as currently ordered -no indication for urgent dialysis -cont I/O >> problably not oliguric Present on Admission?: Yes (2) Hyponatremia: presenting sNa 127, maintained on recheck. also w/ hypokalemia, hypomag -recheck mag, bmp w/ next hgb -hold nsaids which can cause hyponatremia; she is volume overloaded on exam and so her liver disease may also have a role here; urine / admission studies most c/w hypervolemic hypoNa from liver failure Present on Admission?: Yes (3) Anemia: per primary service and GI for now; may need pRBC <<>> wheezing noted and resp status may be a factor in transfusion; last hgb 7.1 >agree w/ nsaid avoidance Present on Admission?: Yes History of Present Illness Reason for Consultation: hyponatremia Requesting Physician: Dr Smith Attending Physician: Neeta Tatum MD History of Present Illness 53 y/o F whom I'm asked to see for hyponatremia after PCP sent her to ER for abnormal labs including sNa 125, creatinine 2.0, hgb 8.0. PMH includes active tobacco (1PPD) and EtOH use, COPD, pAFib on eliquis, HTN, DM on insulin and metf ormin, fatty liver, mood disorder/paranoid schizophrenia, hx of cocaine use. she had been taking ibuprofen 800 mg as often as bid for at least the past month; states this was prescribed to her; her med list however mentions not ibuprofen but meloxicam. She has been having RUQ pain for 2 mos or so, likely from cholelithiasis for which OP cholecystectomy had been planned 07/21. Pt cancelled procedure. Labs drawn yesterday at acute visit w/ PCP for n/v/abd pain. No prior hx of hyponatremia as OP though di dhave it during admission here in April; no prior renal insufficiency. Baseline creatinine 0.6-0.8. Presenting creatinine 2.0, to 1.8 this am; presenting sNa 127; unchanged on recheck. serum osms 271; urine osms 267; rd urine Na 8. Hgb was 8.0 on presentation, dropped to 7.1 this am. she is getting albumin 25% 50 mL q6hr. She has had 120 mEq po K and 1 gm iv mag. GI evaluated the pt and concern for UGIB: EGD showed mild gastritis; plan for colon[facility] to [facility]. CT sh ows chronic cholecystitis and no urgent cholecystectomy needed. Pt on empiric rocephin for urine specimen w/ + LE, nitrites, 10-30 WBC; cxs pending. Allergies Allergy/AdvReac Type Severity Reaction Status Date / Time haloperidol Allergy Severe TONGUE Verified 08/17/19 20:34 SWELLING insulin lispro Allergy Intermediate HIVES Verified 08/17/19 20:34 phenol Allergy Intermediate HIVES Verified 08/17/19 20:34 citalopram Allergy Mild ITCHING Verified 08/17/19 20:34 sulfamethoxazole Allergy Mild RASH Verified 08/17/19 20:34 trimethoprim Allergy Mild RASH Verified 08/17/19 20:34 Bactrim Allergy Unknown RASH Verified 12/01/17 16:09 Penicillins Allergy Unknown Hives Verified 08/17/19 20:34 pregabalin [From Lyrica] AdvReac Severe SUICIDAL Verified 08/17/19 20:34 topiramate AdvReac Severe SEIZURE Verified 08/17/19 20:34 LIKE ACTIVITY oxycodone AdvReac Mild ITCH Verified 08/17/19 20:34 Margarine Allergy Severe RASH Uncoded 08/17/19 20:34 Home Medications Home Medications Medication Instructions Recorded Confirmed Type omeprazole 20 mg PO QAM 07/05/18 08/17/19 History valacyclovir 500 mg PO QAM 07/05/18 08/17/19 History lactulose [Constulose] 30 ml PO DAILY PRN 09/29/18 08/17/19 History diltiazem HCl [Cartia XT] 300 mg PO QAM 12/01/18 08/17/19 History apixaban [Eliquis] 2.5 mg PO BID 07/06/19 08/17/19 History calcium carbonate-vitamin D3 1 cap PO QAM 07/06/19 08/17/19 History [Calcium 600 + D(3)] insulin glargine [Lantus U-100 30 unit SUBCUT HS PRN 07/06/19 08/17/19 History Insulin] potassium chloride 20 meq PO BID 07/06/19 08/17/19 History thiamine HCl (vitamin B1) [Vitamin 50 mg PO QAM 07/06/19 08/17/19 History B-1] albuterol sulfate 2.5 mg INHALATION Q4 PRN 08/17/19 08/17/19 History diclofenac sodium [Voltaren] 4 g TOPICAL QID PRN 08/17/19 08/17/19 History diphenhydramine HCl [Benadryl] 50 mg PO Q6H PRN 08/17/19 08/17/19 History ergocalciferol (vitamin D2) 1,250 mcg PO WK 08/17/19 08/17/19 History [Vitamin D2] folic acid 1 mg PO DAILY 08/17/19 08/17/19 History furosemide [Lasix] 20 mg PO DAILY 08/17/19 08/17/19 History hydrocodone-acetaminophen 1 tab PO BID PRN 08/17/19 08/17/19 History meclizine 12.5 mg PO TID PRN 08/17/19 08/17/19 History meloxicam 15 mg PO DAILY 08/17/19 08/17/19 History metformin 1,000 mg PO DAILY 08/17/19 08/17/19 History nicotine (polacrilex) 4 mg BUCCAL Q2H PRN 08/17/19 08/17/19 History perphenazine 18 mg PO BID 08/17/19 08/17/19 History ranitidine HCl 300 mg PO HS 08/17/19 08/17/19 History tiotropium bromide [Spiriva 2 puff INHALATION DAILY 08/17/19 08/17/19 History Respimat] triamcinolone acetonide 1 applic TOPICAL BID PRN 08/17/19 08/17/19 History Patient History Medical History Alcohol induced acute pancreatitis (Resolved) Alcohol use disorder (Chronic) Atrial fibrillation (Chronic) paroxysmal Chronic generalized pain disorder (Chronic) COPD (chronic obstructive pulmonary disease) (Chronic) DM type 2 (diabetes mellitus, type 2) (Chronic) EtOH dependence (Inactive) Fatty liver (Chronic) History of opioid abuse (Chronic) HTN (hypertension) (Chronic) Hx of cocaine abuse Neuropathy (Chronic) Non-sustained ventricular tachycardia (Inactive) Obesity (Chronic) Schizoaffective disorder (Chronic) Sciatic nerve disease (Chronic) Sleep apnea (Chronic) Tobacco use disorder (Chronic) Surgical History H/O foot surgery (Resolved) H/O ovarian cystectomy (Resolved) Family History Other Heart disease Kidney disease Social History Preferred Language: Nigerian Communication Ability: Effective Visual Impairment: No Limitations Terrazzo Roller Required: No Beliefs That Will Affect Care: None marital status: Single Current Living Situation: Family Current Living Situation Comment: lives with brother current occupational status: unemployed and disabled Other Information That Helps Us Care for You: No Feels Safe at Home: Yes Safety Concerns: Feels Safe At This Time Smoking Status: Current some day smoker Tobacco Type: cigarettes ; Cigarettes Per Day: 10 ; Do You Dip or Chew Tobacco: No ; Second Hand Exposure: No ; Tobacco Cessation Education Requested by Patient: No Hx Alcohol Use: Yes Alcohol type: wine and hard liquor Hx Substance Use: No Review of Systems Review of Systems: All systems reviewed & are unremarkable except as noted in HPI & below Respiratory: no dyspnea Gastrointestinal: + melena increased abd girth Genitourinary: + urinary hesitancy and + decreased urination Musculoskeletal: + swelling Integumentary: + pruritus (w/ scattered pruritic macules back, buttocks) Psychiatric: + anxiety Physical Exam Constitutional: well developed, well nourished, + disheveled and cooperative; no acute distress Eyes: EOM intact bilaterally; sclerae not anicteric ENMT: Ears: no external ear abnormality Nose: no external nose abnormality Mouth: + dry oral mucous membranes Neck: no nuchal rigidity Respiratory: normal respiratory effort Auscultation: + diminished lung sounds and + wheezes (scattered exp) Cardiovascular: Rate/Rhythm: regular rate and regular rhythm Extremities: + edema (2+ BLE) Gastrointestinal (Abdomen): Inspection/Auscultation: normal bowel sounds Percussion/Palpation: abdomen soft and + ascites; abdomen nontender Musculoskeletal: Extremities: strength 5/5 throughout Skin: no rashes, warm and dry Neurologic: asif, fluent speech, no tremor Psychiatric: Orientation: alert and oriented x 3 Affect: + anxious affect Genitourinary: no arriola Results & Data Vital Signs (Past 12 Hours) Vital Signs Temp Pulse Pulse Resp BP BP BP 08/18/19 13:19 36.3 C L 72 18 101/66 08/18/19 12:52 71 18 96/71 L 08/18/19 12:39 65 18 98/67 L 08/18/19 12:23 36.5 C 70 18 90/54 L 08/18/19 11:39 36.8 C 72 18 92/56 L 08/18/19 10:41 36.6 C 74 18 97/60 L 08/18/19 10:39 36.6 C 74 18 97/60 L 08/18/19 10:09 36.4 C L 83 21 111/66 08/18/19 09:49 36.5 C 78 18 101/64 08/18/19 09:31 36.6 C 75 18 100/56 L 08/18/19 08:55 77 106/54 L 08/18/19 08:35 36.5 C 76 18 106/64 08/18/19 07:54 36.5 C 71 18 115/69 08/18/19 07:15 64 08/18/19 04:22 36.3 C L 78 19 99/51 L Pulse Ox 08/18/19 13:19 98 08/18/19 12:52 96 08/18/19 12:39 96 08/18/19 12:23 96 08/18/19 11:39 100 08/18/19 10:41 98 08/18/19 10:39 98 08/18/19 10:09 95 08/18/19 09:49 98 08/18/19 09:31 96 08/18/19 08:55 08/18/19 08:35 98 08/18/19 07:54 98 08/18/19 07:15 08/18/19 04:22 97 Laboratory Results 08/18/19 06:22 08/18/19 06:22 urine testing as above Diagnostic Findings CT abd/pelvis reviewed (1) Acute renal failure (ARF) Acute renal failure type: unspecified Qualified Code(s): N17.9 - Acute kidney failure, unspecified (2) Anemia Anemia type: unspecified type Qualified Code(s): D64.9 - Anemia, unspecified
--- NOTE | 2019-08-18 15:44 | Ultrasound Report ---
PARACENTESIS UNDER ULTRASOUND GUIDANCE CLINICAL HISTORY: ascites COMPARISON STUDY: No previous studies for comparison. FINDINGS: The risks, benefits, and alternatives to the procedure were discussed with the patient. Jolie paris informed consent was obtained. Following real-time ultrasound localization, the skin was prepped and draped. Following local anesthesia with Xylocaine, the sheath paracentesis needle was inserted a nd approximately 2.6 liters of straw-colored fluid was removed by vacuum suction. A right lower quadr ant approach was utilized The patient tolerated the procedure well and left the department in satisfactory condition. IMPRESSION: Successful ultrasound-guided paracentesis with removal of approximately 2.6 liters of asc itic fluid. ACT 112: Negative or not required by law. Electronically signed by: Dawood Diaz M.D. 08/18/2019 3:43 PM
[2019-08-18 16:37] LABS: Hematocrit (blood only) 24.6 % (37-47); Hemoglobin 8.6 g/dL (12.0-16.0)
[2019-08-18 16:45] LABS: INR 1.5 (0.9-1.1); Prothrombin Time 14.8 Seconds (9.0-12.0)
[2019-08-18 17:07] LABS: BUN Creatinine Ratio 12.2 (10-20); Creatinine Clr Calc Pharmacy 47.8 ml/min; Est GFR (African American) 44.6; Est GFR (Non-African American) 38.5; Potassium 3.9 mmol/L (3.5-5.1)
[2019-08-18 18:00] LABS: Appearance Peritoneal Fluid CLEAR; Basophils, Fluid 0 %; Color Peritoneal Fluid YELLOW; Eosinophils, Fluid 0 %; Lymphocytes, Fluid 11 %; Mono,Macrophage,Mesothelial 86 %; Neutrophils, Fluid 3 %; RBC Peritoneal Fluid (A) < 3000 /uL; WBC Peritoneal Fluid (A) 193 /ul (0-300)
[2019-08-18 18:03] LABS: Albumin Peritoneal Fluid 0.6 g/dl; Total Protein Peritoneal Fluid 1.9 g/dl
[2019-08-19] MEDS ORDERED: cefTRIAXone SODIUM 2,000 MG/70 ML BAG IV SCH
--- NOTE | 2019-08-19 00:15 | Electrocardiogram Report ---
Test Reason : Blood Pressure : / mmHG Vent. Rate : 073 BPM Atrial Rate : 073 BPM P-R Int : 168 ms QRS Dur : 094 ms QT Int : 426 ms P-R-T Axes : 080 -29 065 degrees QTc Int : 469 ms Normal sinus rhythm Normal ECG When compared with ECG of 01-JAN-2019 00:13, Criteria for Septal infarct are no longer Present Confirmed by Alex Castillo ([id number]) on 08/19/2019 12:15:17 AM Referred By: Elsa Bowers Confirmed By:Alex Castillo
[2019-08-19] MEDS: ALBUMIN 25% 50 ML IV SCH ×4 (00:31→22:12)
[2019-08-19 06:43] LABS: Hematocrit (blood only) 24.5 % (37-47); Hemoglobin 8.6 g/dL (12.0-16.0); Mean Corpuscular Hemoglobin 35.1 pg (25-34); Mean Corpuscular Hgb Conc 35.1 g/dL (32-36); Mean Platelet Volume 10.6 fL (7.4-10.4); Platelet Count 148 K/uL (130-400); RDW Coefficient of Variation 18.2 % (11.5-14.5); RDW Standard Deviation 65.5 fL (36.4-46.3); Red Blood Count 2.45 M/uL (4.2-5.4); White Blood Count 11.51 K/uL (4.8-10.8)
[2019-08-19 06:49] LABS: INR 1.5 (0.9-1.1); Prothrombin Time 14.6 Seconds (9.0-12.0)
[2019-08-19 07:20] LABS: Albumin Level 2.1 gm/dl (3.4-5.0); BUN Creatinine Ratio 12.2 (10-20); Bilirubin,Total 3.2 mg/dl (0.2-1); Creatinine Clr Calc Pharmacy 60.9 ml/min; Est GFR (African American) 60.6; Est GFR (Non-African American) 52.2; Magnesium 1.7 mg/dl (1.8-2.4); Potassium 3.4 mmol/L (3.5-5.1)
[2019-08-19 07:31] LABS: Albumin Globulin Ratio 0.4 (0.9-2); Globulin 4.9 gm/dl (2.5-4.0)
[2019-08-19] MEDS: INSULIN ASPART 100 UNITS/ML 3 ML PEN SC SCH ×4 (08:31→22:09)
--- NOTE | 2019-08-19 08:54 | Gastroenterology Progress Note ---
Date of Service August 19, 2019 Assessment & Plan (1) Anemia: 53 year old female admitted w/ anemia, melena, ascites on CT imaging. EGD negative NPO for colonoscopy Trend HGB Transfuse PRN HGB < 8 PO PPI 40 mg daily Low NA diet, less than 2G No NSAIDs Strict ETOH avoidance No SBP, follow remaining fluid studies OP serology to be sent, OP hepatology appointment Thank you for allowing us to participate in the care of this patient. Please call with any acute changes, questions or concerns. Please see addendum below with additional recommendation from my supervising physician. (2) Ascites: Admission and Anticipated Discharge Date Admission Date: August 17, 2019 Supervising Physician Co-Signing Physician Notes I saw and evaluated the patient. We are planning for colonoscopy today due to the question of melena prior to admission. We have discussed the risks of the procedure to include bleeding, infection, perforation need for follow-up studies. Subjective Pt was seen and evaluated, chart reviewed. EGD without any acute UGI source of blood loss found Prepped and NPO for colonoscopy today She does report ongoing dark stools and bloody stools with her prep Denies lightheadedness, dizziness S/P diagnostic and therapeutic paracentesis No SBP, high SAAG, culture and cytology ordered and pending To get MRCP today Review of Systems Constitutional: no fever and no chills Respiratory: no cough and no dyspnea Cardiovascular: no chest pain and no radiating jaw, neck or arm pain Gastrointestinal: + blood in stools; no abdominal pain, no nausea, no vomiting, no coffee ground emesis, no hematemesis and no melena Physical Exam Constitutional: + ill appearing; no acute distress Eyes: scleral icterus Neck: trachea midline Respiratory: normal respiratory effort, lungs clear to auscultation Cardiovascular: Rate/Rhythm: regular rate and regular rhythm Gastrointestinal (Abdomen): normal bowel sounds, soft, nontender, no hepatosplenomegaly Results & Data ([facility]) Vital Signs (Past 12 Hours) Vital Signs Temp Pulse Pulse Resp BP BP Pulse Ox 08/19/19 07:20 37.3 C 78 18 98/63 L 97 08/19/19 04:23 107/56 L 08/19/19 03:27 36.8 C 92 H 20 89/50 L 98 08/19/19 00:00 36.6 C 79 72 18 98/55 L 98 (1) Anemia Anemia type: unspecified type Qualified Code(s): D64.9 - Anemia, unspecified (2) Ascites Ascites type: other type Qualified Code(s): R18.8 - Other ascites
[2019-08-19] MEDS ORDERED: MIDAZOLAM HCL 1 MG/ML 2ML VIAL ONE (08:58)
[2019-08-19] MEDS ORDERED: LIDOCAINE HCL 2% 2 ML VIAL/AMP(20MG/ML) INFIL ONE (08:58)
[2019-08-19] MEDS ORDERED: PROPOFOL IV EMULSION 10 MG/ML 20 ML VIAL IV ONE (08:58)
--- NOTE | 2019-08-19 09:14 | History & Physical Bridge Note ---
Date of Service August 19, 2019 History & Physical Bridge Note I have examined the patient, reviewed the History & Physical and in the interval since the performance of the History & Physical I have noted the following changes of clinical significance: no changes noted. Colonoscopy planned for further evaluation due to lack of findings during upper endoscopy yesterday
[2019-08-19] MEDS ORDERED: ATROPINE SULFATE 0.1 MG/ML 10ML SYR IV PRN (09:17)
[2019-08-19] MEDS ORDERED: ePHEDrine sulfate 50 MG/ML AMP IV PRN (09:17)
--- NOTE | 2019-08-19 09:17 | Anesthesiology Consultation ---
Date of Service August 19, 2019 Assessment & Plan Chart Review Chart Review: Acceptable Risk for Surgery and Patient NOT seen in Pre Admission Testing Consults Requested none ASA ASA4 Proposed Anesthesia Anesthesia Type: MAC Risk / Benefits Reviewed With: PT / POA / Parent / Guardian, Accepts Plan and Informed Consent Obtained History Surgery Operation Date: 08/18/19 17:00 Proposed Procedures p Esophagogastroduodenoscopy Dr Isaac Gray Operation Date: 08/19/19 16:00 Proposed Procedures p Colonoscopy Dr Isaac Gray Height/Weight Height: 5 ft 6 in Weight: 88 kg Allergies Allergy/AdvReac Type Severity Reaction Status Date / Time haloperidol Allergy Severe TONGUE Verified 08/17/19 20:34 SWELLING insulin lispro Allergy Intermediate HIVES Verified 08/17/19 20:34 phenol Allergy Intermediate HIVES Verified 08/17/19 20:34 citalopram Allergy Mild ITCHING Verified 08/17/19 20:34 sulfamethoxazole Allergy Mild RASH Verified 08/17/19 20:34 trimethoprim Allergy Mild RASH Verified 08/17/19 20:34 Bactrim Allergy Unknown RASH Verified 12/01/17 16:09 Penicillins Allergy Unknown Hives Verified 08/17/19 20:34 pregabalin [From Lyrica] AdvReac Severe SUICIDAL Verified 08/17/19 20:34 topiramate AdvReac Severe SEIZURE Verified 08/17/19 20:34 LIKE ACTIVITY oxycodone AdvReac Mild ITCH Verified 08/17/19 20:34 Margarine Allergy Severe RASH Uncoded 08/17/19 20:34 Medications Home Medications Medication Instructions Recorded Confirmed Last Taken omeprazole 20 mg PO QAM 07/05/18 08/17/19 08/17/19 valacyclovir 500 mg PO QAM 07/05/18 08/17/19 08/17/19 lactulose [Constulose] 30 ml PO DAILY PRN 09/29/18 08/17/19 10/09/18 diltiazem HCl [Cartia XT] 300 mg PO QAM 12/01/18 08/17/19 08/17/19 apixaban [Eliquis] 2.5 mg PO BID 07/06/19 08/17/19 08/17/19 08:00 calcium carbonate-vitamin D3 1 cap PO QAM 07/06/19 08/17/19 Unknown [Calcium 600 + D(3)] insulin glargine [Lantus U-100 30 unit SUBCUT HS PRN 07/06/19 08/17/19 Unknown Insulin] potassium chloride 20 meq PO BID 07/06/19 08/17/19 Unknown thiamine HCl (vitamin B1) [Vitamin 50 mg PO QAM 07/06/19 08/17/19 Unknown B-1] albuterol sulfate 2.5 mg INHALATION Q4 PRN 08/17/19 08/17/19 Unknown diclofenac sodium [Voltaren] 4 g TOPICAL QID PRN 08/17/19 08/17/19 Unknown diphenhydramine HCl [Benadryl] 50 mg PO Q6H PRN 08/17/19 08/17/19 Unknown ergocalciferol (vitamin D2) 1,250 mcg PO WK 08/17/19 08/17/19 Unknown [Vitamin D2] folic acid 1 mg PO DAILY 08/17/19 08/17/19 Unknown furosemide [Lasix] 20 mg PO DAILY 08/17/19 08/17/19 Unknown hydrocodone-acetaminophen 1 tab PO BID PRN 08/17/19 08/17/19 Unknown meclizine 12.5 mg PO TID PRN 08/17/19 08/17/19 Unknown meloxicam 15 mg PO DAILY 08/17/19 08/17/19 Unknown metformin 1,000 mg PO DAILY 08/17/19 08/17/19 Unknown nicotine (polacrilex) 4 mg BUCCAL Q2H PRN 08/17/19 08/17/19 Unknown perphenazine 18 mg PO BID 08/17/19 08/17/19 Unknown ranitidine HCl 300 mg PO HS 08/17/19 08/17/19 Unknown tiotropium bromide [Spiriva 2 puff INHALATION DAILY 08/17/19 08/17/19 Unknown Respimat] triamcinolone acetonide 1 applic TOPICAL BID PRN 08/17/19 08/17/19 Unknown Active Medications Generic Name Dose Route Start Last Admin Trade Name Freq PRN Reason Stop Dose Admin Diltiazem HCl 300 mg 08/18/19 09:00 08/18/19 08:48 Cardizem Cd PO 09/17/19 08:59 300 mg QAM CARLOS Administration Folic Acid 1 mg 08/18/19 09:00 02/19/20 08:48 Folvite PO 09/17/19 08:59 1 mg DAILY CARLOS Administration Ceftriaxone Sodium 2,000 mg in 70 mls @ 100 mls/hr 08/19/19 00:00 08/19/19 00:31 Rocephin IV 08/27/19 00:41 Infused Q24H CARLOS Infusion Albumin Human 50 mls @ 50 mls/hr 08/18/19 01:00 08/19/19 06:31 Albumin 25% IV 08/21/19 00:59 50 mls/hr Q6H CARLOS Administration Insulin Aspart 0 units 08/18/19 00:36 08/19/19 08:31 Novolog Flexpen SC 09/17/19 00:35 Not Given ACHS CARLOS Perphenazine 18 mg 08/18/19 00:36 08/18/19 21:16 Trilafon PO 09/17/19 00:35 Not Given BID CARLOS Thiamine HCl 50 mg 08/18/19 09:00 08/18/19 08:48 Vitamin B-1 PO 09/17/19 08:59 50 mg QAM CARLOS Administration Umeclidinium [place] 1 puffs 08/18/19 09:00 08/18/19 08:49 Incruse Ellipta INH 09/17/19 08:59 1 puffs DAILY CARLOS Administration Zinc Acetate/Diphenhydramine 1 appln 08/18/19 00:36 08/18/19 02:03 Benadryl Extra Strength EXT 09/17/19 00:35 1 appln QID PRN Administration itchy skin NPO Date Last Intake of Fluids: 08/17/19 Time Last Intake of Fluids: 23:59 Last Intake of Fluids Comment: sip with meds at 0930 Date Last Intake of Solids: 08/17/19 Time Last Intake of Solids: 13:00 Past Medical History Medical History Alcohol induced acute pancreatitis (Resolved) Alcohol use disorder (Chronic) Atrial fibrillation (Chronic) paroxysmal Chronic generalized pain disorder (Chronic) COPD (chronic obstructive pulmonary disease) (Chronic) DM type 2 (diabetes mellitus, type 2) (Chronic) EtOH dependence (Inactive) Fatty liver (Chronic) History of opioid abuse (Chronic) HTN (hypertension) (Chronic) Hx of cocaine abuse Neuropathy (Chronic) Non-sustained ventricular tachycardia (Inactive) Obesity (Chronic) Schizoaffective disorder (Chronic) Sciatic nerve disease (Chronic) Sleep apnea (Chronic) Tobacco use disorder (Chronic) Exercise / Class Metabolic Activity III < 4 Walking/Shop/Light housework Past Family History Family History Other Heart disease Kidney disease Past Surgical History Surgical History H/O foot surgery (Resolved) H/O ovarian cystectomy (Resolved) Past Anesthesia History No Hx of Anesthesia Complications and No Family Hx of Anesthesia Complications History of PONV No Hx of PONV and No Hx of Motion Sickness Social History Smoking Status: Current some day smoker tobacco type: cigarettes Smoking cigarettes per day: 10 Do You Dip or Chew Tobacco: No Hx Alcohol Use: Yes Alcohol type: wine and hard liquor alcohol intake frequency: 3 or more drinks per day Alcohol Intake Frequency Comment: last drink 2 weeks ago Hx Substance Use: No substance use type: former substance user, crack/cocaine and other Last Used Substance: Unknown Physical Exam Vital Signs Last Vital Signs Temp 37.3 C 08/19/19 07:20 Pulse 78 08/19/19 07:20 Resp 18 08/19/19 07:20 BP 98/63 L 08/19/19 07:20 Pulse Ox 97 08/19/19 07:20 Constitutional + obese ENMT Mouth: + dentition abnormality, + poor dentition and + loose teeth Thyromental Distance: > or= 3.5 Finger Breadths Mallampati Class: II Neck normal visual inspection and trachea midline; neck extension not limited Respiratory normal respiratory effort Auscultation: lungs clear to auscultation bilaterally Cardiovascular Rate/Rhythm: regular rate and regular rhythm Heart Sounds: no murmur Vessels: no carotid bruit Musculoskeletal Spine: normal cervical ROM Extremities: extremities normal to inspection Neurologic moves all extremities Motor/Sensory: + sensory deficit Psychiatric Orientation: alert and oriented x 3 Testing Laboratory Results 08/19/19 06:21 08/19/19 06:21 PT 14.6 Seconds (9.0-12.0) H 08/19/19 06:21 INR 1.5 (0.9-1.1) H 08/19/19 06:21 Hemoglobin A1c 4.9 % (4.5-5.6) 08/18/19 06:22 Urine Color Dark Yellow 08/18/19 00:30 Urine Appearance Cloudy (Clear) A 08/18/19 00:30 Urine pH 5.0 (4.5-7.5) 08/18/19 00:30 Ur Specific [place] 1.016 (1.000-1.030) 08/18/19 00:30 Urine Protein Trace (Negative) H 08/18/19 00:30 Urine Glucose (UA) Negative (Negative) 08/18/19 00:30 Urine Ketones Negative (Negative) 08/18/19 00:30 Urine Nitrite Positive (Negative) A 08/18/19 00:30 Ur Leukocyte Esterase Trace (Negative) H 08/18/19 00:30 Urine WBC (Auto) 10-30 /hpf (0-5) H 08/18/19 00:30 Urine RBC (Auto) 5-10 /hpf (0-4) H 08/18/19 00:30 U Hyaline Cast (Auto) 10-30 /lpf (0-5) H 08/18/19 00:30 U Epithel Cells (Auto) >30 /lpf (0-5) H 08/18/19 00:30 Urine Bacteria (Auto) Negative (Negative) 08/18/19 00:30 Blood Type O Positive 08/17/19 20:34 Antibody Screen NEGATIVE 08/17/19 20:34 08/18/19 Unknown Gram Stain - Final Peritoneal Fluid 08/17/19 23:54 Aerobic Blood Culture - Preliminary Blood No growth in Aerobic bottle after 24 hours. Anaerobic Blood Culture - Final 08/18/19 00:30 Urine Culture - Final Urine,Clean Catch More than three types of organisms present, all moderate counts mixed probable skin vanesa. No further identifications or sensitivities to follow. 08/17/19 23:47 Aerobic Blood Culture - Preliminary Blood No growth in Aerobic bottle after 24 hours. Anaerobic Blood Culture - Preliminary No growth in Anaerobic bottle after 24 hours. 08/19/19 07:21 POC Glucose 94
[2019-08-19 09:32] LABS: Hepatitis B Surface Antigen Neg (Neg)
[2019-08-19 10:00] LABS: Hepatitis C IgG 13Yrs+Old_Rflx Neg (Neg)
--- NOTE | 2019-08-19 10:00 | Communication Note ---
Date of Service: August 19, 2019 Patient underwent colonoscopy this morning. Findings notable for large internal and external hemorrhoids. Should significant hematochezia persist I would recommend evaluation by general surgery
--- NOTE | 2019-08-19 10:01 | Anesthesiology Progress Note ---
Date of Service August 19, 2019 Anesthesia Post Procedure Vital Signs Vital Signs: Temp Pulse Pulse Resp BP BP BP 08/19/19 09:08 37 C 89 20 92/53 L 08/19/19 07:20 37.3 C 78 18 98/63 L 08/19/19 04:23 107/56 L 08/19/19 03:27 36.8 C 92 H 20 89/50 L 08/19/19 00:00 36.6 C 79 72 18 98/55 L 08/18/19 19:32 36.5 C 61 18 108/67 08/18/19 16:01 76 08/18/19 15:43 36.4 C L 62 18 100/64 08/18/19 13:19 36.3 C L 72 18 101/66 08/18/19 12:52 71 18 96/71 L 08/18/19 12:39 65 18 98/67 L 08/18/19 12:23 36.5 C 70 18 90/54 L 08/18/19 11:39 36.8 C 72 18 92/56 L 08/18/19 10:41 36.6 C 74 18 97/60 L 08/18/19 10:39 36.6 C 74 18 97/60 L 08/18/19 10:09 36.4 C L 83 21 111/66 Pulse Ox 08/19/19 09:08 98 08/19/19 07:20 97 08/19/19 04:23 08/19/19 03:27 98 08/19/19 00:00 98 08/18/19 19:32 99 08/18/19 16:01 08/18/19 15:43 99 08/18/19 13:19 98 08/18/19 12:52 96 08/18/19 12:39 96 08/18/19 12:23 96 08/18/19 11:39 100 08/18/19 10:41 98 08/18/19 10:39 98 08/18/19 10:09 95 Pain Intensity Abdomen: Pain Intensity: 9 Transfer of Care Handoff Completed per policy Notes Mental Status: alert / awake / arousable Patient Amnestic to Procedure: Yes Nausea / Vomiting: adequately controlled Pain: adequately controlled Airway Patency, RR, SpO2: stable & adequate BP & HR: stable & adequate Hydration State: stable & adequate Anesthetic Complications: no major complications apparent
[2019-08-19] MEDS ORDERED: LORazepam 0.5 MG/1 ML VIAL IV STA (10:38)
[2019-08-19] MEDS ORDERED: LORazepam 0.5 MG/1 ML VIAL IV PRN (10:50)
[2019-08-19] MEDS: dilTIAZem HCL 300 MG CAPCR PO SCH (10:53)
[2019-08-19] MEDS: THIAMINE HCL 50 MG TABLET PO SCH (10:53)
[2019-08-19] MEDS: PANTOprazole 40 MG TAB PO SCH (10:53)
[2019-08-19] MEDS: PERPHENAZINE 2 MG TABLET PO SCH ×3 (10:54→21:10)
[2019-08-19] MEDS: UMECLIDINIUM BROMIDE 62.5MCG/BLISTER 7 PUFFS/INHALER INH SCH (10:54)
[2019-08-19] MEDS: FOLIC ACID 1 MG TAB PO SCH (10:54)
--- NOTE | 2019-08-19 10:54 | Hospitalist Progress Note ---
Date of Service August 19, 2019 Assessment & Plan (1) Abdominal pain: Multifactorial : Admitted with abdominal distention/pain: Possible secondary to tense ascites History of alcohol abuse/abdomen pelvis shows moderate ascites(new diagnosis) Status post paracentesis with drainage of approximately 2.6 L of ascitic fluid yesterday Peritoneal fluid appears to be transudative dative with WBC 193 IV Albumin /IV rocephin for possible SBP Cultures ordered INR 1.7 (possible due to liver cirrhosis-Alcoholic vs hepatic steatoses ) And been on Eliquis for history of paroxysmal A. fib, which is discontinued Given vitamin K for thoracentesis Repeat INR 1.5 Anemia : Hb drop noted 7.1 ( no dark tarry stool since admission ) -status post 1 unit of PRBC tx 08/18/2019 Hemoglobin 8.6 today Status post EGD: Showed diffuse mild inflammation characterized by congestio n/edema, erythema and granularity found in entire examined stomach Examined stomach and esophagus normal Plan for colonoscopy today Continue to hold Eliquis Hyponatremia, : Sodium improved to 132 (129 on 08/18/2019) possible due to chronic liver disease /ETOH abuse Neurology following ACUTE RENAL FAILURE : /Underlying CKD stage III secondary to acute illness, hx of NSAID intake Resolved creatinine improved to 1.18 HYPOKALEMIA : K 3.4 But for p.o. replacement, continue to monitor BMP HTN, BP on the lower side-possible secondary to chronic liver disease On Cardizem secondary to history of paroxysmal A. fib, ordered to hold for SBP less than 100 monitor hx TIAs as per records avoid ASA /antiplatelets :Anemia/concern for GI bleed pt does not have any neurological deficit chronic respiratory failure secondary to COPD on home O2, -bilateral wheeze noted ordered for Neb tx DM2 insulin requiring, well-controlled as of recent outpatient hemoglobin A1c of 06 May 2019 insulin SSI mood disorder/personality disorder/paranoid schizophrenia, history ongoing cocaine/alcohol/tobacco abuse. counselling for cessation provided DVT prophylaxis. SCDs RE GI bleed Full code Disposition: Stable to transfer out of PCU to medical telemetry Expected to be discharged home when medically stable Admission and Anticipated Discharge Date Admission Date: August 17, 2019 Subjective Seen at bedside, denies of any discomfort, Had an uneventful night, complains of persistent abdominal pain, mild improvement after paracentesis yesterday(had drainage of approximately 2.6 L of peritoneal fluid) No fever or chills, Continues to have a nonproductive cough Worried about her gallbladder, patient previously canceled her elective laparoscopic cholecystectomy which was scheduled on July 21 Asking if she can have gallbladder surgery during this admission Review of Systems Review of Systems: As per HPI, all 10 systems reviewed, all other ROS negative Eyes: Icteric sclera Cardiovascular: + edema; no chest pain and no lightheadedness Gastrointestinal: + abdominal pain (Improved/persistent ascites) and + diarrhea/loose stools; no nausea, no vomiting, no coffee ground emesis and no bl ood in stools Physical Exam Constitutional: WD/WN, vitals as above + obese; no acute distress Eyes: + scleral abnormality (Icteric sclera) ENMT: external ear and nose normal, oropharynx normal Neck: trachea midline, no thyromegaly Respiratory: normal respiratory effort, lungs clear to auscultation Cardiovascular: Rate/Rhythm: regular rate and regular rhythm Extremities: + pedal edema and + edema (+2 bilateral pitting edema) Gastrointestinal (Abdomen): Inspection/Auscultation: + abdomen distended and normal bowel sounds Percussion/Palpation: + abdomen tender (On lower abdomen), abdomen soft and + ascites Musculoskeletal: no cyanosis or clubbing, extremities motor strength 5/5 Skin: no rashes, warm and dry Neurologic: PERRL, EOMI, accommodation nl, no face palsy, no dysarthria Psychiatric: Orientation: alert and oriented x 3 Insight: + limited insight Results & Data (MN) Vital Signs (Past 12 Hours) Vital Signs Temp Pulse Pulse Resp BP BP Pulse Ox 08/19/19 10:28 66 20 114/67 98 08/19/19 10:10 67 20 114/63 94 08/19/19 09:55 69 20 103/58 L 97 08/19/19 09:08 37 C 89 20 92/53 L 98 08/19/19 07:20 37.3 C 78 18 98/63 L 97 08/19/19 04:23 107/56 L 08/19/19 03:27 36.8 C 92 H 20 89/50 L 98 08/19/19 00:00 36.6 C 79 72 18 98/55 L 98 (1) Abdominal pain Abdominal location: epigastric Qualified Code(s): R10.13 - Epigastric pain
[2019-08-19] MEDS ORDERED: POTASSIUM CHLORIDE 20 MEQ TABCR PO ONE (11:15)
[2019-08-19] MEDS ORDERED: MAGNESIUM SULFATE / D5W 1 GM/100 ML BAG IV ONE (11:15)
[2019-08-19] MEDS ORDERED: MECLIZINE 12.5 MG TAB PO PRN (12:34)
[2019-08-19] MEDS ORDERED: ALBUTEROL 0.083% NEBU SOLN 3 ML VIAL INH PRN (12:34)
--- NOTE | 2019-08-19 14:03 | Surgery Consultation ---
Date of Consultation August 19, 2019 Assessment & Plan (1) Abdominal pain: 53 year-old female with new onset of ascites and severe hepatic steatosis concerning for possible cirrhosis given history of alcohol abuse who presented to emergency department with increasing abdominal pain and distention. CT scan showing gallstones. Elevated t. bili, lfts, and lipase on admission. S/p EGD/Colonoscopy. s/p paracentesis for ascites with removal of 2.6 liters (08/18/19). Going for MRCP today given gallstones and elevated t. bili/LFTs/Alk phos Plan: Will await results of MRCP today Due to new onset of ascites and possible cirrhosis, would recommend evaluation by liver specialist/surgeon for cholecystectomy. If there are no signs of acute cholecystitis on MRCP cholecystectomy could be entertained once medically stable if patient is persistently symptomatic from gallstones. If there is evidence of biliary obstruction or cholecystitis on MRCP would recommend transfer to tertiary center for ERCP/cholecystectomy given cirrhosis and ascites. Continue current medical management (2) Ascites: new onset was not present during prior outpatient examination with Dr. Ellis prior to elective scheduled cholecystectomy on 07/21/[address] Ellis was present during my physical examination and discussed above recommendations with patient. History of Present Illness Reason for Consultation: Gallbladder disease Requesting Physician: Neeta Tatum MD Attending Physician: Neeta Tatum MD History of Present Illness Rebeca is a 53 year-old female with medical history significant for chronic respiratory failure secondary to COPD on home O2, PAF on Eliquis, history of TIAs, hypertension, DM 2 insulin requiring, mood disorder/personality disorder/paranoid schizophrenia, ongoing cocaine/alcohol/tobacco abuse. Known to Dr. Ellis who was scheduled for elective cholecystectomy on 07/21/2019 however left day of procedure given anxiety about procedure. Has been having abdominal distention and abdominal pain for two weeks. Saw PCP office and recommended further labs and imaging studies as she was jaundiced. CT scan showing severe hepatic steatosis and moderate ascites with gallstones and sludge. She had a paracentesis yesterday in which 2.6 liters of fluid was removed. She also has had an EGD and colonoscpy which showed moderate diffuse edema of stomach but no PUD. Colonoscopy showed internal and external hemorrhoids. labs showed elevated t. bili and LFTs T. bili 3.1 --> 3.0 --> 3.2 AST 62 --> 51 --> 59 ALT 17 --> 14 --> 15 ALK 261 --> 224 --> 207 Lipase 658 --> 416 --> 317 Rebeca states that her abdominal pain is slightly better after the paracentesis yesterday but still complaining of generalized mid abdominal pain and bloating. No nausea or vomiting. States she has not been able to eat much but vague when asked if she has abdominal pain postprandial. Allergies Allergy/AdvReac Type Severity Reaction Status Date / Time haloperidol Allergy Severe TONGUE Verified 08/17/19 20:34 SWELLING insulin lispro Allergy Intermediate HIVES Verified 08/17/19 20:34 phenol Allergy Intermediate HIVES Verified 08/17/19 20:34 citalopram Allergy Mild ITCHING Verified 08/17/19 20:34 sulfamethoxazole Allergy Mild RASH Verified 08/17/19 20:34 trimethoprim Allergy Mild RASH Verified 08/17/19 20:34 Bactrim Allergy Unknown RASH Verified 12/01/17 16:09 Penicillins Allergy Unknown Hives Verified 08/17/19 20:34 pregabalin [From Lyrica] AdvReac Severe SUICIDAL Verified 08/17/19 20:34 topiramate AdvReac Severe SEIZURE Verified 08/17/19 20:34 LIKE ACTIVITY oxycodone AdvReac Mild ITCH Verified 08/17/19 20:34 Margarine Allergy Severe RASH Uncoded 08/17/19 20:34 Home Medications Home Medications Medication Instructions Recorded Confirmed Type omeprazole 20 mg PO QAM 07/05/18 08/17/19 History valacyclovir 500 mg PO QAM 07/05/18 08/17/19 History lactulose [Constulose] 30 ml PO DAILY PRN 09/29/18 08/17/19 History diltiazem HCl [Cartia XT] 300 mg PO QAM 12/01/18 08/17/19 History apixaban [Eliquis] 2.5 mg PO BID 07/06/19 08/17/19 History calcium carbonate-vitamin D3 1 cap PO QAM 07/06/19 08/17/19 History [Calcium 600 + D(3)] insulin glargine [Lantus U-100 30 unit SUBCUT HS PRN 07/06/19 08/17/19 History Insulin] potassium chloride 20 meq PO BID 07/06/19 08/17/19 History thiamine HCl (vitamin B1) [Vitamin 50 mg PO QAM 07/06/19 08/17/19 History B-1] albuterol sulfate 2.5 mg INHALATION Q4 PRN 08/17/19 08/17/19 History diclofenac sodium [Voltaren] 4 g TOPICAL QID PRN 08/17/19 08/17/19 History diphenhydramine HCl [Benadryl] 50 mg PO Q6H PRN 08/17/19 08/17/19 History ergocalciferol (vitamin D2) 1,250 mcg PO WK 08/17/19 08/17/19 History [Vitamin D2] folic acid 1 mg PO DAILY 08/17/19 08/17/19 History furosemide [Lasix] 20 mg PO DAILY 08/17/19 08/17/19 History hydrocodone-acetaminophen 1 tab PO BID PRN 08/17/19 08/17/19 History meclizine 12.5 mg PO TID PRN 08/17/19 08/17/19 History meloxicam 15 mg PO DAILY 08/17/19 08/17/19 History metformin 1,000 mg PO DAILY 08/17/19 08/17/19 History nicotine (polacrilex) 4 mg BUCCAL Q2H PRN 08/17/19 08/17/19 History perphenazine 18 mg PO BID 08/17/19 08/17/19 History ranitidine HCl 300 mg PO HS 08/17/19 08/17/19 History tiotropium bromide [Spiriva 2 puff INHALATION DAILY 08/17/19 08/17/19 History Respimat] triamcinolone acetonide 1 applic TOPICAL BID PRN 08/17/19 08/17/19 History Patient History Medical History Alcohol induced acute pancreatitis (Resolved) Alcohol use disorder (Chronic) Atrial fibrillation (Chronic) paroxysmal Chronic generalized pain disorder (Chronic) COPD (chronic obstructive pulmonary disease) (Chronic) DM type 2 (diabetes mellitus, type 2) (Chronic) EtOH dependence (Inactive) Fatty liver (Chronic) History of opioid abuse (Chronic) HTN (hypertension) (Chronic) Hx of cocaine abuse Neuropathy (Chronic) Non-sustained ventricular tachycardia (Inactive) Obesity (Chronic) Schizoaffective disorder (Chronic) Sciatic nerve disease (Chronic) Sleep apnea (Chronic) Tobacco use disorder (Chronic) Surgical History H/O foot surgery (Resolved) H/O ovarian cystectomy (Resolved) Family History Other Heart disease Kidney disease Social History Preferred Language: Citizen Of [place] Communication Ability: Effective Visual Impairment: No Limitations 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: No Beliefs That Will Affect Care: None marital status: Single Current Living Situation: Family Current Living Situation Comment: lives with brother current occupational status: unemployed and disabled Other Information That Helps Us Care for You: No Feels Safe at Home: Yes Safety Concerns: Feels Safe At This Time Smoking Status: Current some day smoker Tobacco Type: cigarettes ; Cigarettes Per Day: 10 ; Do You Dip or Chew Tobacco: No ; Second Hand Exposure: No ; Tobacco Cessation Education Requested by Patient: No Hx Alcohol Use: Yes Alcohol type: wine and hard liquor Hx Substance Use: No Physical Exam Constitutional: WD/WN, vitals as above no acute distress Respiratory: normal respiratory effort; no respiratory distress Gastrointestinal (Abdomen): Inspection/Auscultation: + abdomen distended and normal bowel sounds Percussion/Palpation: + abdomen tender (generalized tenderness but also RUQ), abdomen soft, + hepatomegaly and + ascites; no guarding and abdomen not rigid Skin: no rashes, warm and dry + jaundice Psychiatric: Orientation: alert and oriented x 3 Results & Data Vital Signs (Past 12 Hours) Vital Signs Temp Pulse Pulse Resp BP BP Pulse Ox 08/19/19 11:29 36.7 C 81 18 122/79 100 08/19/19 10:28 66 20 114/67 98 08/19/19 10:10 67 20 114/63 94 08/19/19 09:55 69 20 103/58 L 97 08/19/19 09:08 37 C 89 20 92/53 L 98 08/19/19 07:30 90 08/19/19 07:20 37.3 C 78 18 98/63 L 97 02/20/20 04:23 107/56 L 08/19/19 03:27 36.8 C 92 H 20 89/50 L 98 Laboratory Results 08/19/19 08/19/19 08/19/19 Range/Units 11:27 07:21 06:21 WBC (4.8-10.8) K/uL RBC (4.2-5.4) M/uL Hgb (12.0-16.0) g/dL Hct (37-47) % MCV (80-100) fL MCH (25-34) pg MCHC (32-36) g/dL RDW Std Deviation (36.4-46.3) fL RDW Coeff of Ally (11.5-14.5) % Plt Count (130-400) K/uL MPV (7.4-10.4) fL PT (9.0-12.0) Seconds INR (0.9-1.1) Sodium (136-145) mmol/L Potassium (3.5-5.1) mmol/L Chloride (98-107) mmol/L Carbon Dioxide (21-32) mmol/L Anion Gap (3-11) BUN (7-18) mg/dl Creatinine (0.6-1.2) mg/dl Est Cr Clr Drug Dosing ml/min Est GFR ( Amer) Est GFR (Non-Af Amer) BUN/Creatinine Ratio (10-20) Glucose (70-99) mg/dl POC Glucose 97 94 (70-99) mg/dl Calcium (8.5-10.1) mg/dl Magnesium (1.8-2.4) mg/dl Total Bilirubin (0.2-1) mg/dl AST (15-37) U/L ALT (12-78) U/L Alkaline Phosphatase (45-117) U/L Total Protein (6.4-8.2) gm/dl Albumin (3.4-5.0) gm/dl Globulin (2.5-4.0) gm/dl Albumin/Globulin Ratio (0.9-2) Lipase (73-393) U/L Fluid Neutrophils % % Fluid Lymphocytes % % Fluid Eosinophils % % Fluid Basophils % % Fluid Meso/Macro/Oxford % % Peritoneal Color Peritoneal Appearance Peritoneal WBC (0-300) /ul Peritoneal RBC /uL Peritoneal Tot Protein g/dl Peritoneal Albumin g/dl Hepatitis A IgM Ab Pending Hep Bs Antigen (Neg) Hep B Core IgM Ab Pending Hepatitis C Antibody (Neg) HCV RNA (PCR) IUs/ml Pending HCV RNA PCR log IUs/ml Pending 08/19/19 08/19/19 08/19/19 Range/Units 06:21 06:21 06:21 WBC (4.8-10.8) K/uL RBC (4.2-5.4) M/uL Hgb (12.0-16.0) g/dL Hct (37-47) % MCV (80-100) fL MCH (25-34) pg MCHC (32-36) g/dL RDW Std Deviation (36.4-46.3) fL RDW Coeff of Ally (11.5-14.5) % Plt Count (130-400) K/uL MPV (7.4-10.4) fL PT 14.6 H (9.0-12.0) Seconds INR 1.5 H (0.9-1.1) Sodium 132 L (136-145) mmol/L Potassium 3.4 L (3.5-5.1) mmol/L Chloride 101 (98-107) mmol/L Carbon Dioxide 23 (21-32) mmol/L Anion Gap 8.0 (3-11) BUN 14 (7-18) mg/dl Creatinine 1.18 D (0.6-1.2) mg/dl Est Cr Clr Drug Dosing 60.9 ml/min Est GFR ( Amer) 60.6 Est GFR (Non-Af Amer) 52.2 BUN/Creatinine Ratio 12.2 (10-20) Glucose 83 (70-99) mg/dl POC Glucose (70-99) mg/dl Calcium 8.0 L (8.5-10.1) mg/dl Magnesium 1.7 L (1.8-2.4) mg/dl Total Bilirubin 3.2 H (0.2-1) mg/dl AST 59 H (15-37) U/L ALT 15 (12-78) U/L Alkaline Phosphatase 207 H (45-117) U/L Total Protein 7.0 (6.4-8.2) gm/dl Albumin 2.1 L (3.4-5.0) gm/dl Globulin 4.9 H (2.5-4.0) gm/dl Albumin/Globulin Ratio 0.4 L (0.9-2) Lipase 317 (73-393) U/L Fluid Neutrophils % % Fluid Lymphocytes % % Fluid Eosinophils % % Fluid Basophils % % Fluid Meso/Macro/Oxford % % Peritoneal Color Peritoneal Appearance Peritoneal WBC (0-300) /ul Peritoneal RBC /uL Peritoneal Tot Protein g/dl Peritoneal Albumin g/dl Hepatitis A IgM Ab Hep Bs Antigen Neg (Neg) Hep B Core IgM Ab Hepatitis C Antibody Neg (Neg) HCV RNA (PCR) IUs/ml HCV RNA PCR log IUs/ml 08/19/19 08/18/19 08/18/19 Range/Units 06:21 Unknown 20:14 WBC 11.51 H (4.8-10.8) K/uL RBC 2.45 L (4.2-5.4) M/uL Hgb 8.6 L (12.0-16.0) g/dL Hct 24.5 L (37-47) % MCV 100.0 (80-100) fL MCH 35.1 H (25-34) pg MCHC 35.1 (32-36) g/dL RDW Std Deviation 65.5 H (36.4-46.3) fL RDW Coeff of Ally 18.2 H (11.5-14.5) % Plt Count 148 (130-400) K/uL MPV 10.6 H (7.4-10.4) fL PT (9.0-12.0) Seconds INR (0.9-1.1) Sodium (136-145) mmol/L Potassium (3.5-5.1) mmol/L Chloride (98-107) mmol/L Carbon Dioxide (21-32) mmol/L Anion Gap (3-11) BUN (7-18) mg/dl Creatinine (0.6-1.2) mg/dl Est Cr Clr Drug Dosing ml/min Est GFR ( Amer) Est GFR (Non-Af Amer) BUN/Creatinine Ratio (10-20) Glucose (70-99) mg/dl POC Glucose 170 H (70-99) mg/dl Calcium (8.5-10.1) mg/dl Magnesium (1.8-2.4) mg/dl Total Bilirubin (0.2-1) mg/dl AST (15-37) U/L ALT (12-78) U/L Alkaline Phosphatase (45-117) U/L Total Protein (6.4-8.2) gm/dl Albumin (3.4-5.0) gm/dl Globulin (2.5-4.0) gm/dl Albumin/Globulin Ratio (0.9-2) Lipase (73-393) U/L Fluid Neutrophils % 3 % Fluid Lymphocytes % 11 % Fluid Eosinophils % 0 % Fluid Basophils % 0 % Fluid Meso/Macro/Oxford % 86 % Peritoneal Color YELLOW Peritoneal Appearance CLEAR Peritoneal WBC 193 (0-300) /ul Peritoneal RBC < 3000 /uL Peritoneal Tot Protein 1.9 g/dl Peritoneal Albumin 0.6 g/dl Hepatitis A IgM Ab Hep Bs Antigen (Neg) Hep B Core IgM Ab Hepatitis C Antibody (Neg) HCV RNA (PCR) IUs/ml HCV RNA PCR log IUs/ml 08/18/19 08/18/19 08/18/19 Range/Units 16:13 16:11 16:11 WBC (4.8-10.8) K/uL RBC (4.2-5.4) M/uL Hgb (12.0-16.0) g/dL Hct (37-47) % MCV (80-100) fL MCH (25-34) pg MCHC (32-36) g/dL RDW Std Deviation (36.4-46.3) fL RDW Coeff of Ally (11.5-14.5) % Plt Count (130-400) K/uL MPV (7.4-10.4) fL PT 14.8 H (9.0-12.0) Seconds INR 1.5 H (0.9-1.1) Sodium 129 L (136-145) mmol/L Potassium 3.9 D (3.5-5.1) mmol/L Chloride 100 (98-107) mmol/L Carbon Dioxide 23 (21-32) mmol/L Anion Gap 6.0 (3-11) BUN 19 H (7-18) mg/dl Creatinine 1.52 H D (0.6-1.2) mg/dl Est Cr Clr Drug Dosing 47.8 ml/min Est GFR ( Amer) 44.6 Est GFR (Non-Af Amer) 38.5 BUN/Creatinine Ratio 12.2 (10-20) Glucose 105 H (70-99) mg/dl POC Glucose 115 H (70-99) mg/dl Calcium 8.0 L (8.5-10.1) mg/dl Magnesium (1.8-2.4) mg/dl Total Bilirubin (0.2-1) mg/dl AST (15-37) U/L ALT (12-78) U/L Alkaline Phosphatase (45-117) U/L Total Protein (6.4-8.2) gm/dl Albumin (3.4-5.0) gm/dl Globulin (2.5-4.0) gm/dl Albumin/Globulin Ratio (0.9-2) Lipase (73-393) U/L Fluid Neutrophils % % Fluid Lymphocytes % % Fluid Eosinophils % % Fluid Basophils % % Fluid Meso/Macro/Oxford % % Peritoneal Color Peritoneal Appearance Peritoneal WBC (0-300) /ul Peritoneal RBC /uL Peritoneal Tot Protein g/dl Peritoneal Albumin g/dl Hepatitis A IgM Ab Hep Bs Antigen (Neg) Hep B Core IgM Ab Hepatitis C Antibody (Neg) HCV RNA (PCR) IUs/ml HCV RNA PCR log IUs/ml 08/18/19 Range/Units 16:11 WBC (4.8-10.8) K/uL RBC (4.2-5.4) M/uL Hgb 8.6 L (12.0-16.0) g/dL Hct 24.6 L (37-47) % MCV (80-100) fL MCH (25-34) pg MCHC (32-36) g/dL RDW Std Deviation (36.4-46.3) fL RDW Coeff of Ally (11.5-14.5) % Plt Count (130-400) K/uL MPV (7.4-10.4) fL PT (9.0-12.0) Seconds INR (0.9-1.1) Sodium (136-145) mmol/L Potassium (3.5-5.1) mmol/L Chloride (98-107) mmol/L Carbon Dioxide (21-32) mmol/L Anion Gap (3-11) BUN (7-18) mg/dl Creatinine (0.6-1.2) mg/dl Est Cr Clr Drug Dosing ml/min Est GFR ( Amer) Est GFR (Non-Af Amer) BUN/Creatinine Ratio (10-20) Glucose (70-99) mg/dl POC Glucose (70-99) mg/dl Calcium (8.5-10.1) mg/dl Magnesium (1.8-2.4) mg/dl Total Bilirubin (0.2-1) mg/dl AST (15-37) U/L ALT (12-78) U/L Alkaline Phosphatase (45-117) U/L Total Protein (6.4-8.2) gm/dl Albumin (3.4-5.0) gm/dl Globulin (2.5-4.0) gm/dl Albumin/Globulin Ratio (0.9-2) Lipase (73-393) U/L Fluid Neutrophils % % Fluid Lymphocytes % % Fluid Eosinophils % % Fluid Basophils % % Fluid Meso/Macro/Oxford % % Peritoneal Color Peritoneal Appearance Peritoneal WBC (0-300) /ul Peritoneal RBC /uL Peritoneal Tot Protein g/dl Peritoneal Albumin g/dl Hepatitis A IgM Ab Hep Bs Antigen (Neg) Hep B Core IgM Ab Hepatitis C Antibody (Neg) HCV RNA (PCR) IUs/ml HCV RNA PCR log IUs/ml Diagnostic Findings CT SCAN OF THE ABDOMEN AND PELVIS WITHOUT CONTRAST CLINICAL HISTORY: abd pain, renal failure COMPARISON STUDY: 12/17/2018 TECHNIQUE: CT scan of the abdomen and pelvis was performed from the lung bases to the proximal femurs. Images are reviewed in the axial, sagittal, and coronal planes. IV contrast was not administered for this examination. A dose lowering technique was utilized adhering to the principles of ALARA. CT DOSE: 1280.02 mGy.cm FINDINGS: Lower chest: The heart is normal in size and configuration, without pericardial effusion. The lung bases and pleural spaces are clear. Liver: There is severe hepatic steatosis. The liver is mildly enlarged measuring 20 cm. No focal hepatic masses are visualized on this noncontrast study. More focal decreased attenuation at the right hepatic dome likely represents or focal fatty change. There is also decreased attenuation involving the periphery of the right lobe, also likely representing or focal fat. There is suspected portal hypertension with recannulization of the umbilical vein Gallbladder: Cholelithiasis and sludge. There is mild gallbladder wall thicken ing. Spleen: Normal in size and attenuation. Pancreas: Unremarkable. Adrenal glands: Unremarkable. Kidneys: No renal, ureteral, or bladder calculi are visualized. Bowel: There are no transition zones to indicate bowel obstruction. Evaluation of the appendix is felt to be nondiagnostic given the lack of intravenous and oral contrast and the adjacent ascites. There is no evidence of acute diver ticulitis. Peritoneum: There is moderate ascites. There is no free intraperitoneal air. Vasculature: The abdominal aorta is normal in course and caliber. Adenopathy: None. Pelvic viscera: The bladder, and pelvic viscera are unremarkable. Skeletal structures: No destructive osseous lesions are seen. IMPRESSION: 1. No evidence of bowel obstruction. No evidence of free air 2. Severe hepatic steatosis. Mild hepatomegaly 3. Cholelithiasis and mild gallbladder wall thickening 4. No renal, ureteral, or bladder calculi identified 5. Interval development of moderate ascites (1) Ascites Ascites type: other type Qualified Code(s): R18.8 - Other ascites (2) Abdominal pain Abdominal location: epigastric Qualified Code(s): R10.13 - Epigastric pain
--- NOTE | 2019-08-19 14:54 | Magnetic Resonance Report ---
MRCP CLINICAL HISTORY: Cholelithiasis. Elevated bilirubin. COMPARISON STUDY: Abdominal CT dated 08/17/2019. MRCP dated 11/09/2018. TECHNIQUE: Abdominal MRCP is performed using various T2-weighted sequences in the axial and coronal p lanes. 3-D reformats are created and assessed. IV contrast was not administered for this examination. The examination is significantly degraded by motion artifact. FINDINGS: Gallstones are identified. There is nonspecific gallbladder wall thickening. There is no intra- or ex trahepatic biliary ductal dilatation. The common bile duct measures up to 4.5 mm diameter. There are no intraluminal filling defects to suggest choledocholithiasis. The pancreatic duct is normal in jana lita and not well visualized. The liver is enlarged measuring 20.7 cm in length. Findings of severe steatosis were shown on the rec ent CT scan. There is a small to moderate volume of upper abdominal ascites. Trace right pleural effu giovani is noted. The unenhanced spleen, adrenal glands, kidneys, and pancreas are grossly normal. There is no evidence of bowel obstruction. The abdominal aorta is normal in caliber. The bony structures a ppear intact. There is mild body wall edema. IMPRESSION: 1. Significantly motion compromised examination. 2. Hepatomegaly and severe hepatic steatosis. 3. Small to moderate volume of upper abdominal ascites. 4. Cholelithiasis. 5. Gallbladder wall thickening is nonspecific and may be related to hepatocellular disease and ascite s. If there is clinical concern for acute cholecystitis then ultrasound of the right upper quadrant s hould be considered. 6. There is no intra- or extrahepatic biliary ductal dilatation, and there is no clear evidence of ch oledocholithiasis. Dictated: 08/19/2019 2:33 PM Transcribed: 08/19/2019 2:46 PM [facility] [id number] [email or web address] Electronically signed by: Valerio Copeland M.D. 08/19/2019 2:53 PM
[2019-08-19] MEDS: DOXYCYCLINE HYCLATE 100 MG CAP PO SCH ×2 (16:44→22:13)
--- NOTE | 2019-08-19 19:18 | Nephrology Progress Note ---
Date of Service August 19, 2019 Assessment & Plan (1) Acute renal failure (ARF): baseline creatinine 0.6-0.8. presenting creatinine 08/17 was 2.0. improved further today to 1.2 -urine cx negative; note however no bacteria on ua, making infection less likel -f/u recheck bmp -continue albumin as currently ordered -no indication for urgent dialysis -cont I/O >> problably not oliguric (2) Hyponatremia: presenting sNa 127, improved today to 132 w/ hydration. also w/ hypokalemia, hypomag -recheck mag, bmp daily -hold nsaids which can cause hyponatremia; she is volume overloaded on exam and so her liver disease may also have a role here; urine / admission studies most c/w hypervolemic hypoNa from liver failure -agree w/ bid K suppl and will add mag as well -cont low Na diet; no FR for now (3) Anemia: per primary service and GI for now; may need pRBC <<>> wheezing noted and resp status may be a factor in transfusion; last hgb 8.6; f/u GI scope results >agree w/ nsaid avoidance Admission and Anticipated Discharge Date Admission Date: August 17, 2019 Subjective Seen on evening rounds at 1730; states she is feeling better, though the Ativan "got me." Some uncontrolled muscle and joint pain; denies abd pain to me Review of Systems Review of Systems: All systems reviewed & are unremarkable except as noted in HPI & below Physical Exam Constitutional: well developed, well nourished, + disheveled and cooperative; no acute distress sitting up in chair Eyes: EOM intact bilaterally; sclerae not anicteric ENMT: Ears: no external ear abnormality Nose: no external nose abnormality Mouth: + dry oral mucous membranes Neck: no nuchal rigidity Respiratory: normal respiratory effort; no respiratory distress Auscultation: + diminished lung sounds, + rhonchi and + wheezes (scattered exp) Cardiovascular: Rate/Rhythm: regular rate and regular rhythm Extremities: + edema (2+ BLE) Gastrointestinal (Abdomen): Inspection/Auscultation: normal bowel sounds Percussion/Palpation: abdomen soft and + ascites; abdomen nontender Musculoskeletal: Extremities: strength 5/5 throughout Skin: no rashes, warm and dry Neurologic: asif, fluent speech, no tremor Psychiatric: Orientation: alert and oriented x 3 Affect: + anxious affect Results & Data ([facility]) Vital Signs (Past 12 Hours) Vital Signs Temp Pulse Pulse Resp BP Pulse Ox 08/19/19 15:33 36.7 C 78 16 94/65 L 100 08/19/19 14:35 36.7 C 75 14 104/60 08/19/19 11:29 36.7 C 81 18 122/79 100 08/19/19 10:28 66 20 114/67 98 08/19/19 10:10 67 20 114/63 94 08/19/19 09:55 69 20 103/58 L 97 08/19/19 09:08 37 C 89 20 92/53 L 98 08/19/19 07:30 90 08/19/19 07:20 37.3 C 78 18 98/63 L 97 Laboratory Results 08/19/19 06:21 08/19/19 06:21 (1) Acute renal failure (ARF) Acute renal failure type: unspecified Qualified Code(s): N17.9 - Acute kidney failure, unspecified (2) Anemia Anemia type: unspecified type Qualified Code(s): D64.9 - Anemia, unspecified
[2019-08-19] MEDS: POTASSIUM CHLORIDE 20 MEQ TABCR PO SCH (22:12)
[2019-08-20] MEDS: ALBUMIN 25% 50 ML IV SCH ×4 (04:29→21:52)
--- NOTE | 2019-08-20 08:19 | Gastroenterology Progress Note ---
Date of Service August 20, 2019 Assessment & Plan (1) Ascites: 53 year old female with history of polysubstance abuse, COPD, Afib on Eliquis, hx of TIAs, HTN, DM II, schizophrenia admitted w/ anemia. She underwent endoscopic evaluation w/ both an upper and lower endoscopy without any evidence of active bleeding or significant abnormality. She underwent diagnostic/therapeutic paracentesis given new development of ascites which was concerning for portal hypertension, outside imaging concerning for cirrhosis. She has gallstones and wishes to undergo cholecystectomy given her intermittent right sided symptoms - she did discuss this with general surgery who had recommended a tertiary center which I agree with. We did discuss at length the increase post-operative complication risk she is at given her recent diagnosis of cirrhosis and ascites. She verbalized understanding. - She is agreeable to formal rehabilitation service at discharge for her polysubstance abuse - No NSAIDs - Less than 2G of tylenol containing products if using - Low NA diet, less than 2G daily - Continue Lasix 20 mg daily - Can add Aldactone 50 mg daily - Continue Albumin as inpatient - Can continue lactulose, titrated to 2-3 BMs daily - No ETOH, other illicit drug - EGD in 2021 - HCC screen in January 2020 - OP hepatology referral Will sign off. Thank you for allowing us to participate in the care of this patient. Please call with any acute changes, questions or concerns. Please see addendum below with additional recommendation from my supervising physician. (2) Abdominal pain: Admission and Anticipated Discharge Date Admission Date: August 17, 2019 Supervising Physician Co-Signing Physician Notes I saw and evaluated the patient. She does appear improved today. She does have a fairly elevated meld score which likely represents her underlying alcoholic liver disease. Her present discriminant function index is below the threshold for and with steroids or pentoxifylline. Recommendations Lasix 20 mg/day Aldactone 50 mg/day Strict alcohol abstinence Clinic follow-up in about 6 weeks If patient attends a treatment program as an outpatient perhaps we could refer her to a transplant service for evaluation Subjective Pt was seen and evaluated, chart reviewed. Offers no complaints. Is concerned about her gallbladder, wants to discuss cholecystectomy. No further BM or evidence of GIB since EGD/Colonoscopy. Has had some RUQ pain, unsure if it is post-prandial or not. No nausea, vomitin g. Voices interest in remaining ETOH and drug free after extensive discussion today. Diagnosis: suspected ETOH cirrhosis, last ETOH use was early Februrary Decompensations Ascites: s/p 2.6L para 08/19/19. High SAAG, no evidence of SBP, cytology negative Varices: none HE: none but is maintained on Lactulose as OP for chronic constipation Screenings Varices: 2021 HCC: January Immunizations: unknown MELD: 20 DF: 12 EGD 2020: Normal esophagus. Z-line regular, 40 cm from the incisors. Gastritis.Normal examined duodenum. No specimens collected. Colonoscopy 2020: large internal and external hemorrhoids. MRCP 2020: Hepatomegaly and severe hepatic steatosis.Small to moderate volume of upper abdominal ascites.Cholelithiasis.Gallbladder wall thickening is nonspecific and may be related to hepatocellular disease and ascites. If there is clinical concern for acute cholecystitis then ultrasound of the right upper quadrant should be considered. There is no intra- or extrahepatic biliary ductal dilatation, and there is no clear evidence of choledocholithiasis. CTAP 2019: No evidence of bowel obstruction. No evidence of free air Severe hepatic steatosis. Mild hepatomegalyCholelithiasis and mild gallbladder wall thickeningNo renal, ureteral, or bladder calculi identified Interval development of moderate ascites ABD US 2020: Cirrhotic appearing liver with moderate ascites. Biliary sludge without evidence of cholecystitis Review of Systems Constitutional: no fever and no body aches Respiratory: + cough; no dyspnea Cardiovascular: no chest pain and no radiating jaw, neck or arm pain Gastrointestinal: no vomiting, no coffee ground emesis, no hematemesis, no diarrhea/loose stools, no blood in stools and no melena Physical Exam Constitutional: WD/WN, vitals as above + ill appearing; no acute distress Neck: trachea midline Respiratory: normal respiratory effort Auscultation: + wheezes Cardiovascular: Rate/Rhythm: regular rate and regular rhythm Gastrointestinal (Abdomen): normal bowel sounds, soft, nontender, no hepatosplenomegaly Inspection/Auscultation: normal bowel sounds; + abdomen abnormal to inspection (was unable to assess skin) Percussion/Palpation: abdomen soft and + ascites; abdomen nontender, no guarding and abdomen not rigid Skin: no rashes, warm and dry Results & Data ([facility]) Vital Signs (Past 12 Hours) Vital Signs Temp Pulse Resp BP Pulse Ox 08/20/19 07:49 36.9 C 85 18 110/63 95 08/19/19 22:56 37.5 C 90 16 103/71 97 Laboratory Results 08/20/19 08/19/19 08/19/19 Range/Units 08:08 20:49 18:55 POC Glucose 106 H 152 H 131 H (70-99) mg/dl Hep Bs Antigen (Neg) Hepatitis C Antibody (Neg) 08/19/19 08/19/19 Range/Units 11:27 06:21 POC Glucose 97 (70-99) mg/dl Hep Bs Antigen Neg (Neg) Hepatitis C Antibody Neg (Neg) (1) Ascites Ascites type: other type Qualified Code(s): R18.8 - Other ascites (2) Abdominal pain Abdominal location: epigastric Qualified Code(s): R10.13 - Epigastric pain
--- NOTE | 2019-08-20 08:44 | GI REPORT ---
Patient Name: Rebeca Judge Procedure Date: 08/19/2019 9:15 AM Date of : 1965 Admit Type: Inpatient Age: 53 Gender: Female Attending MD: Alexandra Gray DO Procedure: Colonoscopy Providers: Alexandra Gray DO Referring MD: Elsa Bowers Indications: Hematochezia, Melena Medicines: Monitored Anesthesia Care Complications: No immediate complications. Estimated blood loss: Minimal. Estimated Blood Loss: Estimated blood loss was minimal. Procedure: Pre-Anesthesia Assessment: - Prior to the procedure, a History and Physical was performed, and patient medications, allergies and sensitivities were reviewed. The patient's tolerance of previous anesthesia was reviewed. - The risks and benefits of the procedure and the sedation options and risks were discussed with the patient. All questions were answered and informed consent was obtained. - Patient identification and proposed procedure were verified prior to the procedure by the physician, the nurse and the flag car driver. The procedure was verified in the procedure room. - Pre-procedure physical examination revealed no contraindications to sedation. - ASA Grade Assessment: III - A patient with severe systemic disease. - After reviewing the risks and benefits, the patient was deemed in satisfactory condition to undergo the procedure. - The anesthesia plan was to use monitored anesthesia care (MAC). - Immediately prior to administration of medications, the patient was re-assessed for adequacy to receive sedatives. - The heart rate, respiratory rate, oxygen saturations, blood pressure, adequacy of pulmonary ventilation, and response to care were monitored throughout the procedure. - The physical status of the patient was re-assessed after the procedure. After I obtained informed consent, the scope was passed under direct vision. Throughout the procedure, the patient's blood pressure, pulse, and oxygen saturations were monitored continuously. The Colonoscope was introduced through the anus and advanced to the terminal ileum. The colonoscopy was performed without difficulty. The patient tolerated the procedure well. The quality of the bowel preparation was good. Findings: The digital rectal exam findings include non-thrombosed external hemorrhoids. Pertinent negatives include normal sphincter tone. The terminal ileum appeared normal. Internal hemorrhoids were found during retroflexion. The hemorrhoids were moderate. Estimated blood loss: none. Impression: - Non-thrombosed external hemorrhoids found on digital rectal exam. - The examined portion of the ileum was normal. - Internal hemorrhoids. - No specimens collected. Recommendation: - [facility]. - Advance diet as tolerated today. - Repeat colonoscopy in 5 years for screening purposes. Alexandra Gray D.O. Alexandra Gray, 08/20/2019 8:43:49 AM This report has been signed electronically. Note Initiated On: 08/19/2019 9:15 AM Number of Addenda: 0 I attest to the content of the Intraoperative Record and orders documented therein, exceptions below {[id number]}
[2019-08-20 08:45] LABS: Hematocrit (blood only) 24.6 % (37-47); Hemoglobin 8.5 g/dL (12.0-16.0); Mean Corpuscular Hemoglobin 35.4 pg (25-34); Mean Corpuscular Hgb Conc 34.6 g/dL (32-36); Mean Corpuscular Volume 102.5 fL (80-100); Mean Platelet Volume 10.9 fL (7.4-10.4); Platelet Count 152 K/uL (130-400); RDW Coefficient of Variation 18.3 % (11.5-14.5); RDW Standard Deviation 68.1 fL (36.4-46.3); White Blood Count 10.78 K/uL (4.8-10.8)
[2019-08-20 09:14] LABS: Albumin Level 2.4 gm/dl (3.4-5.0); BUN Creatinine Ratio 11.5 (10-20); Calcium 8.7 mg/dl (8.5-10.1); Creatinine Clr Calc Pharmacy 58.9 ml/min; Est GFR (African American) 58.2; Est GFR (Non-African American) 50.2
[2019-08-20] MEDS: PERPHENAZINE 2 MG TABLET PO SCH ×2 (09:16→20:01)
[2019-08-20] MEDS: dilTIAZem HCL 300 MG CAPCR PO SCH (09:16)
[2019-08-20 09:17] LABS: Albumin Globulin Ratio 0.5 (0.9-2); Bilirubin,Total 2.5 mg/dl (0.2-1); Globulin 4.7 gm/dl (2.5-4.0); Total Protein 7.1 gm/dl (6.4-8.2)
[2019-08-20] MEDS: FOLIC ACID 1 MG TAB PO SCH (09:17)
[2019-08-20] MEDS: POTASSIUM CHLORIDE 20 MEQ TABCR PO SCH ×2 (09:18→20:01)
[2019-08-20] MEDS: UMECLIDINIUM BROMIDE 62.5MCG/BLISTER 7 PUFFS/INHALER INH SCH (09:18)
[2019-08-20] MEDS: PANTOprazole 40 MG TAB PO SCH (09:19)
[2019-08-20] MEDS: FUROSEMIDE 20 MG TAB PO SCH (09:19)
[2019-08-20] MEDS: THIAMINE HCL 50 MG TABLET PO SCH (09:20)
[2019-08-20] MEDS: DOXYCYCLINE HYCLATE 100 MG CAP PO SCH ×2 (09:20→20:01)
[2019-08-20] MEDS: INSULIN ASPART 100 UNITS/ML 3 ML PEN SC SCH ×4 (09:45→21:59)
[2019-08-20] MEDS: MAGNESIUM OXIDE 400 MG TAB PO SCH (12:01)
--- NOTE | 2019-08-20 12:04 | Hospitalist Progress Note ---
Date of Service August 20, 2019 Assessment & Plan (1) Abdominal pain: Multifactorial : 2 has improved Admitted with abdominal distention/pain: Possible secondary to tense ascites History of alcohol abuse/abdomen pelvis shows moderate ascites(new diagnosis) Status post paracentesis with drainage of approximately 2.6 L of ascitic fluid 08/18/2019 Peritoneal fluid appears to be transudative dative with WBC 193 No evidence of SBP, IV Rocephin discontinue Appreciate input from GI: Patient needs abstinence from alcohol, and polysubstance abuse Avoid NSAIDs Less than 2 g of Tylenol-containing products infusing Low-salt diet less than 2 g daily Continue diuretics with Lasix 20 mg daily/Aldactone 50 mg daily Added lactulose try to to 23 bowel movement daily 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 follow-up with GI and real estate attorney Anemia : Hb drop noted 7.1 ( no dark tarry stool since admission ) -status post 1 unit of PRBC tx 08/18/2019 Globin remained stable 8.68.8 Status post EGD: Showed diffuse mild inflammation characterized by congestion/edema, erythema and granularity found in entire examined stomach Examined stomach and esophagus normal Colonoscopy: Shows hemorrhoids, no active bleeding, normal ileum, normal colon No evidence of GI bleed Eliquis resumed Hyponatremia, : Resolved Sodium improved to 132 (129 on 08/18/2019) possible due to chronic liver disease /ETOH abuse Appreciate input from nephrology ACUTE RENAL FAILURE : /Underlying CKD stage III Resolved, creatinine improved to baseline secondary to acute illness, hx of NSAID intake Resolved creatinine improved to 1.18 HTN, BP stable, on Cardizem, patient will be discharged with Lasix and Aldactone hx TIAs as per records Aspirin resumed pt does not have any neurological deficit chronic respiratory failure secondary to COPD on home O2, Pain is counseled elliptically for tobacco/smoking cessation ordered for Neb tx DM2 insulin requiring, well-controlled as of recent outpatient hemoglobin A1c of 06 May 2019 insulin SSI mood disorder/personality disorder/paranoid schizophrenia, history ongoing cocaine/alcohol/tobacco abuse. counselling for cessation provided DVT prophylaxis. SCDs RE GI bleed Full code Disposition: Possible discharge home tomorrow Admission and Anticipated Discharge Date Admission Date: August 17, 2019 Anticipated date of discharge: 08/21/19 Subjective Patient had an uneventful night, complains of abdominal pain, improved from prior No nausea vomiting, normal bowel movement tolerating diet No fever or chills, no cough no shortness of breath Patient wants to go home tomorrow if there is no plan for surgery Review of Systems Review of Systems: As per HPI, all 10 systems reviewed, all other ROS negative Eyes: Icteric sclera Cardiovascular: + edema; no chest pain Gastrointestinal: + abdominal pain (Improved/persistent ascites) Physical Exam Constitutional: WD/WN, vitals as above + obese; no acute distress Eyes: + scleral abnormality (Icteric sclera) ENMT: external ear and nose normal, oropharynx normal Neck: trachea midline, no thyromegaly Respiratory: normal respiratory effort, lungs clear to auscultation Cardiovascular: Rate/Rhythm: regular rate and regular rhythm Extremities: + pedal edema and + edema (+2 bilateral pitting edema) Gastrointestinal (Abdomen): Inspection/Auscultation: + abdomen distended and normal bowel sounds Percussion/Palpation: + abdomen tender (On lower abdomen), abdomen soft and + ascites Musculoskeletal: no cyanosis or clubbing, extremities motor strength 5/5 Skin: no rashes, warm and dry Neurologic: PERRL, EOMI, accommodation nl, no face palsy, no dysarthria Psychiatric: Orientation: alert and oriented x 3 Insight: + limited insight Results & Data ([facility]) Vital Signs (Past 12 Hours) Vital Signs Temp Pulse Resp BP BP Pulse Ox 08/20/19 09:13 84 111/68 08/20/19 07:49 36.9 C 85 18 110/63 95 (1) Abdominal pain Abdominal location: epigastric Qualified Code(s): R10.13 - Epigastric pain
[2019-08-20] MEDS: CALCIUM 600MG + VIT D 400 IU TAB PO SCH (12:55)
[2019-08-20] MEDS: ACETAMINOPHEN SUSP 160 MG/5 ML UDC PO PRN ×2 (12:56→17:22)
--- NOTE | 2019-08-20 18:24 | Nephrology Progress Note ---
Date of Service August 20, 2019 Assessment & Plan (1) Acute renal failure (ARF): Prerenal physiology initially but also component of ATN Baseline creatinine 0.6-0.8. presenting creatinine 08/17 was 2.0. improved to 1.2 where it has plateaued for the past 48 hours -urine cx negative; note however no bacteria on ua, making infection less likely -Recommend basic metabolic panel daily -continue albumin as currently ordered for another 24 hours Absolutely no NSAIDs after discharge: These are contraindicated for her due to liver disease, hyponatremia, chronic volume overload, and use of anticoagulant; also worsened her acute renal failure here -She takes Lasix 20 mg daily as an outpatient: Reasonable to resume this 24 to 48 hours after stopping abdomen Discharge recommendations (discharge summary updated): -Recommend weekly basic metabolic panel x4 to be ordered by nephrology after hospital discharge -Recommend follow-up in kidney clinic 4 to 6 weeks after discharge with any yobani al physician or renal PA -Absolutely no NSAIDs for this patient WILL SIGN OFF; PLS CALL IF ? (2) Hyponatremia: presenting sNa 127, improved today to 133 w/ hydration. also w/ hypokalemia, hypomag -recheck mag, bmp daily -urine / admission studies most c/w hypervolemic hypoNa from liver failure -agree w/ current bid K suppl and mag as well -cont low Na diet; no FR for now will ultimately need fluid restriction 1.5 to 1.8 L daily (3) Anemia: per primary service and GI for now; may need pRBC <<>> wheezing noted and resp status may be a factor in transfusion; last hgb 8.6; f/u GI scope results >agree w/ nsaid avoidance Admission and Anticipated Discharge Date Admission Date: August 17, 2019 Anticipated date of discharge: 08/21/19 Subjective Seen on rounds this afternoon approximately 1715. Patient ambulatory, denies nausea vomiting, denies shortness of breath. Ongoing edema. Denies voiding concerns Review of Systems Review of Systems: All systems reviewed & are unremarkable except as noted in HPI & below Physical Exam Constitutional: well developed, well nourished, + disheveled and cooperative; no acute distress Eyes: EOM intact bilaterally; sclerae not anicteric ENMT: Ears: no external ear abnormality Nose: no external nose abnormality Mouth: + dry oral mucous membranes Neck: no nuchal rigidity Respiratory: normal respiratory effort; no respiratory distress Auscultation: + diminished lung sounds Cardiovascular: Rate/Rhythm: regular rate and regular rhythm Extremities: + edema (2+ BLE) Gastrointestinal (Abdomen): Inspection/Auscultation: normal bowel sounds Percussion/Palpation: abdomen soft; abdomen nontender Musculoskeletal: Extremities: strength 5/5 throughout Skin: no rashes, warm and dry Neurologic: Moves all extremities, fluent speech Psychiatric: Orientation: alert and oriented x 3 Affect: + anxious affect Results & Data ([facility]) Vital Signs (Past 12 Hours) Vital Signs Temp Pulse Resp BP BP Pulse Ox 08/20/19 15:33 37.0 C 71 18 120/70 99 08/20/19 09:13 84 111/68 08/20/19 07:49 36.9 C 85 18 110/63 95 Laboratory Results 08/20/19 08:29 08/20/19 08:29 (1) Acute renal failure (ARF) Acute renal failure type: unspecified Qualified Code(s): N17.9 - Acute kidney failure, unspecified (2) Anemia Anemia type: unspecified type Qualified Code(s): D64.9 - Anemia, unspecified
[2019-08-20] MEDS: DiphenhydrAMINE 2%/ZINC 0.1% CREAM 28GM TUBE EXT PRN (19:53)
[2019-08-21] MEDS: dilTIAZem HCL 300 MG CAPCR PO SCH (09:02)
[2019-08-21] MEDS: FOLIC ACID 1 MG TAB PO SCH (09:02)
[2019-08-21] MEDS: UMECLIDINIUM BROMIDE 62.5MCG/BLISTER 7 PUFFS/INHALER INH SCH (09:03)
[2019-08-21] MEDS: PANTOprazole 40 MG TAB PO SCH (09:03)
[2019-08-21] MEDS: DOXYCYCLINE HYCLATE 100 MG CAP PO SCH (09:03)
[2019-08-21] MEDS: FUROSEMIDE 20 MG TAB PO SCH (09:03)
[2019-08-21] MEDS: POTASSIUM CHLORIDE 20 MEQ TABCR PO SCH (09:03)
[2019-08-21] MEDS: PERPHENAZINE 2 MG TABLET PO SCH (09:03)
[2019-08-21] MEDS: THIAMINE HCL 50 MG TABLET PO SCH (09:03)
[2019-08-21] MEDS: INSULIN ASPART 100 UNITS/ML 3 ML PEN SC SCH ×2 (09:04→13:19)
[2019-08-21] MEDS: CALCIUM 600MG + VIT D 400 IU TAB PO SCH (10:47)
[2019-08-21] MEDS: MAGNESIUM OXIDE 400 MG TAB PO SCH (10:47)
--- NOTE | 2019-08-21 11:42 | Hospitalist Progress Note ---
Date of Service August 21, 2019 Assessment & Plan (1) Abdominal pain: Multifactorial : Has markedly improved after paracentesis Patient is counseled multiple times for complete alcohol abstinence-as it can lead to fulminant liver failure Admitted with abdominal distention/pain: Possible secondary to tense ascites History of alcohol abuse/abdomen pelvis shows moderate ascites(new diagnosis) Status post paracentesis with drainage of approximately 2.6 L of ascitic fluid 08/18/2019 Peritoneal fluid appears to be transudative dative with WBC 193 No evidence of SBP, IV Rocephin discontinue Appreciate input from GI: Patient needs complete abstinence from alcohol, and polysubstance abuse Avoid NSAIDs Less than 2 g of Tylenol-containing products infusing Low-salt diet less than 2 g daily Continue diuretics with Lasix 20 mg daily/Aldactone 50 mg daily Added lactulose try to to 23 bowel movement daily Patient follow-up with GI and [facility] laboratory Anemia : Hb drop noted 7.1 ( no dark tarry stool since admission ) -status post 1 unit of PRBC tx 08/18/2019 Globin remained stable 8.68.8 Status post EGD: Showed diffuse mild inflammation characterized by congestion/edema, erythema and granularity found in entire examined stomach Examined stomach and esophagus normal Colonoscopy: Shows hemorrhoids, no active bleeding, normal ileum, normal colon No evidence of GI bleed Eliquis resumed Hyponatremia, : Resolved Sodium improved to 132 (129 on 08/18/2019) possible due to chronic liver disease /ETOH abuse Appreciate input from nephrology ACUTE RENAL FAILURE : /Underlying CKD stage III Resolved, creatinine improved to baseline secondary to acute illness, hx of NSAID intake Resolved creatinine improved to 1.18 HTN, BP stable, on Cardizem, patient will be discharged with Lasix and Aldactone hx TIAs as per records Aspirin resumed pt does not have any neurological deficit chronic respiratory failure secondary to COPD on home O2, Pain is counseled elliptically for tobacco/smoking cessation ordered for Neb tx DM2 insulin requiring, well-controlled as of recent outpatient hemoglobin A1c of 06 May 2019 insulin SSI mood disorder/personality disorder/paranoid schizophrenia, history ongoing cocaine/alcohol/tobacco abuse. counselling for cessation provided DVT prophylaxis. SCDs RE GI bleed Full code Disposition: Stable to be discharged home today Admission and Anticipated Discharge Date Admission Date: August 17, 2019 Anticipated date of discharge: 08/21/19 Subjective Has persistent abdominal distention, no fever or chills, no nausea vomiting, tolerating diet Patient is updated regarding no plan for cholecystectomy by surgery team For all future surgery patient is to be followed at tertiary care team with specialized GI hepatology/surgery service coordination Patient wants to be discharged home today, willing for outpatient follow-up with gastroenterology Review of Systems Review of Systems: As per HPI, all 10 systems reviewed, all other ROS negative Eyes: Icteric sclera Cardiovascular: + edema; no chest pain Gastrointestinal: + abdominal pain (Improved/persistent ascites) Physical Exam Constitutional: WD/WN, vitals as above + obese; no acute distress Eyes: + scleral abnormality (Icteric sclera) ENMT: external ear and nose normal, oropharynx normal Neck: trachea midline, no thyromegaly Respiratory: normal respiratory effort, lungs clear to auscultation Cardiovascular: Rate/Rhythm: regular rate and regular rhythm Extremities: + pedal edema and + edema (+2 bilateral pitting edema) Gastrointestinal (Abdomen): Inspection/Auscultation: + abdomen distended and normal bowel sounds Percussion/Palpation: + abdomen tender (On lower abdomen), abdomen soft and + ascites Musculoskeletal: no cyanosis or clubbing, extremities motor strength 5/5 Skin: no rashes, warm and dry Neurologic: PERRL, EOMI, accommodation nl, no face palsy, no dysarthria Psychiatric: Orientation: alert and oriented x 3 Insight: + limited insight Results & Data ([facility]) Vital Signs (Past 12 Hours) Vital Signs Temp Pulse Resp BP Pulse Ox 08/21/19 07:14 37.3 C 89 18 120/64 97 (1) Abdominal pain Abdominal location: epigastric Qualified Code(s): R10.13 - Epigastric pain
--- NOTE | 2019-08-21 13:32 | Discharge Summary ---
Date of Service August 21, 2019 Admission HPI Per Admitting Provider History obtained from patient and records. Medical history significant for chronic respiratory failure secondary to COPD on home O2, PAF on Eliquis, history of TIAs, hypertension, DM 2 insulin requiring, mood disorder/personality disorder/paranoid schizophrenia, history of fatty liver as per records, history ongoing cocaine/alcohol/tobacco abuse. Recent confinement April 2019 at the [facility] for psychotic symptoms. Patient has had achy upper abdominal discomfort for a few months now for which patient will take OTC ibuprofen not more than twice a day for pain. Outpatient abdominal ultrasound from May, showed hepatomegaly, hepatic steatosis, small gallbladder sludge, small ascites. Patient evaluated by [facility] [place] last month. Elective laparoscopic cholecystectomy recommended for cholelithiasis/chronic cholecystitis as per note. Patient canceled procedure due to paranoia/anxiety. Worsening achy upper abdominal discomfort over the last few weeks with nausea, nonbloody emesis. Stools noted to be dark as per patient. Poor appetite, dark urine. Increased abdominal distention and leg swelling. No unusual chest pain, no S OB. No fever no chills. Patient seen at PCPs office today. Outpatient abdominal ultrasound showed hepatic steatosis with moderate ascites, biliary sludge without cholecystitis. Outpatient hemoglobin 8.2, serum sodium 125, serum creatinine 2. Patient directed by PCP to the ER for abnormal blood work. Medical History as above Surgical History : Foot/toe surgery, ovarian cyst removal, Family History : Breast cancer, liver cancer, heart disease, kidney disease Personal/Social history : One 4 pack daily, alcohol abuse although last drink was about 2 weeks ago, disabled Principal Diagnosis Alcoholic liver disease/cirrhosis/ascites/anemia/hyponatremia/alcohol abuse/tobacco abuse disorder Discharge Exam Constitutional WD/WN, vitals as above + obese; no acute distress Eyes + scleral abnormality (Icteric sclera) ENMT external ear and nose normal, oropharynx normal Neck trachea midline, no thyromegaly Respiratory normal respiratory effort, lungs clear to auscultation Cardiovascular Rate/Rhythm: regular rate and regular rhythm Extremities: + pedal edema and + edema (+2 bilateral pitting edema) Gastrointestinal (Abdomen) Inspection/Auscultation: + abdomen distended and normal bowel sounds Percussion/Palpation: + abdomen tender (On lower abdomen), abdomen soft and + ascites Musculoskeletal no cyanosis or clubbing, extremities motor strength 5/5 Skin no rashes, warm and dry Neurologic PERRL, EOMI, accommodation nl, no face palsy, no dysarthria Psychiatric Orientation: alert and oriented x 3 Insight: + limited insight Discharge Data Allergies Allergy/AdvReac Type Severity Reaction Status Date / Time haloperidol Allergy Severe TONGUE Verified 08/17/19 20:34 SWELLING insulin lispro Allergy Intermediate HIVES Verified 08/17/19 20:34 phenol Allergy Intermediate HIVES Verified 08/17/19 20:34 citalopram Allergy Mild ITCHING Verified 08/17/19 20:34 sulfamethoxazole Allergy Mild RASH Verified 08/17/19 20:34 trimethoprim Allergy Mild RASH Verified 08/17/19 20:34 Bactrim Allergy Unknown RASH Verified 12/01/17 16:09 Penicillins Allergy Unknown Hives Verified 08/17/19 20:34 pregabalin [From Lyrica] AdvReac Severe SUICIDAL Verified 08/17/19 20:34 topiramate AdvReac Severe SEIZURE Verified 08/17/19 20:34 LIKE ACTIVITY oxycodone AdvReac Mild ITCH Verified 08/17/19 20:34 Margarine Allergy Severe RASH Uncoded 08/17/19 20:34 Consultations 08/18/19 00:36 Consult Case Management - Discharge Planning Routine 08/18/19 01:26 Consult Nephrology Routine 08/18/19 08:38 Consult Gastroenterology Routine 08/19/19 12:36 Consult General Surgery Routine Procedures Performed Operation Date: 08/18/19 17:00 Actual Procedures p Esophagogastroduodenoscopy Gertrude Gray Operation Date: 08/19/19 16:00 Actual Procedures p Colonoscopy - Alexandra Gray Ordered Studies 08/17/19 20:32 CT abd pelvis wo con Stat 08/18/19 14:00 US paracentesis abd w/image Routine 08/19/19 16:00 MR MRCP Routine Hospital Course (1) Abdominal pain: Multifactorial : Symptom has markedly improved after paracentesis Patient is counseled multiple times for complete alcohol abstinence-as it can lead to fulminant liver failure Admitted with abdominal distention/pain: Possible secondary to tense ascites History of alcohol abuse/abdomen pelvis shows moderate ascites(new diagnosis) Status post paracentesis with drainage of approximately 2.6 L of ascitic fluid 08/18/2019 Peritoneal fluid appears to be transudative dative with WBC 193 No evidence of SBP, IV Rocephin discontinue Appreciate input from GI: Patient needs complete abstinence from alcohol, and p olysubstance abuse Avoid NSAIDs Less than 2 g of Tylenol-containing products infusing Low-salt diet less than 2 g daily Continue diuretics with Lasix 20 mg daily/Aldactone 50 mg daily Added lactulose try to to 23 bowel movement daily Patient follow-up with GI and land management supervisor Anemia : Hb drop noted 7.1 ( no dark tarry stool since admission ) -status post 1 unit of PRBC tx 08/18/2019 Globin remained stable 8.68.8 Status post EGD: Showed diffuse mild inflammation characterized by congestion/edema, erythema and granularity found in entire examined stomach Examined stomach and esophagus normal Colonoscopy: Shows hemorrhoids, no active bleeding, normal ileum, normal colon No evidence of GI bleed Eliquis resumed Hyponatremia, : Resolved Sodium improved to 132 (129 on 08/18/2019) possible due to chronic liver disease /ETOH abuse Appreciate input from nephrology ACUTE RENAL FAILURE : /Underlying CKD stage III Resolved, creatinine improved to baseline secondary to acute illness, hx of NSAID intake Resolved creatinine improved to 1.18 Chronic cholecystitis: Appreciate input from surgery, MRCP of abdomen shows no evidence of acute cholecystitis, no indication for cholecystectomy, given newly diagnosis of cirrhosis, moderate to severe ascites, patient will need to follow-up with land management supervisor and surgery in tertiary care for further procedure if indicated HTN, BP stable, on Cardizem, patient will be discharged with Lasix and Aldactone hx TIAs as per records Aspirin resumed pt does not have any neurological deficit chronic respiratory failure secondary to COPD on home O2, Pain is counseled elliptically for tobacco/smoking cessation ordered for [facility] tx DM2 insulin requiring, well-controlled as of recent outpatient hemoglobin A1c of 06 May 2019 insulin SSI mood disorder/personality disorder/paranoid schizophrenia, history ongoing cocaine/alcohol/tobacco abuse. counselling for cessation provided DVT prophylaxis. SCDs RE GI bleed Full code Disposition: Stable to be discharged home today Total Time Total Time Spent Total Time Spent (In Minutes): Approximately 40 minutes Total Time Includes: Examination of the Patient, Discharge Planning and Medication Reconciliation Discharge Plan Discharge Items Patient Disposition: Home - Self-Care Reason For Visit: UGIB, HYPONATREMIA Discharge Diagnosis: Alcoholic liver disease/cirrhosis/ascites/anemia/hyponatremia Activity: Resume your previous activity Non-emergency contact: Primary Care Provider Call non-emergency contact if: you have any medication questions Follow-up/Referrals: Julia Blank MD, PhD [Physician] - Mejia Moran [Physician] - (Gastroenterology follow-up in clinic in 6 weeks,) Dante Rosario, DO [Primary Care Provider] - Diet: Heart Healthy Addtl Attending Provider Instructions: New medications: Lasix 20 mg 1 tablet daily: Water pill-to reduce abdominal distention, leg swelling Aldactone 50 mg daily: Water pill Low-salt diet, to prevent fluid accumulation Strict alcohol abstinence Continue to take lactulose daily, to have at least 23 bowel movement a day GI clinic follow-up in 6 weeks, Referral will be made for outpatient hepatology/liver specialist Regarding your gallbladder disease: Need to follow-up with liver specialist/surgeon at tertiary care: [facility] for further management Do not take Aleve Advil Motrin, meloxicam (Mobic) , ibuprofen, naproxen, avoid all [id number] /or prescription pain medications related to NSAIDs Which can cause further worsening of your kidney function, and severe gastritis leading to stomach ulcer, bleeding Do not take aspirin-high risk for bleeding when you are on Eliquis NEED TO HAVE COMPLETE ABSTINENCE FROM ALCOHOL ONGOING ALCOHOL CONSUMPTION -MOST LIKELY WILL CAUSE LIVER CIRRHOSIS , LIVER FAILURE, ELECTROLYTE DERANGEMENTS , KIDNEY FAILURE , INCREASED RISK FOR STROKE AND HEART ATTACK , EARLY DEMENTIA Add Drawing Tender Provider Instructions: -Recommend weekly basic metabolic panel x4 to be ordered by nephrology after hospital discharge -Recommend follow-up in [facility] kidney clinic 4 to 6 weeks after discharge with any renal physician or renal PA; [facility] senior buyer planner to arrange appointment -Absolutely no NSAIDs for this patient Pending Studies at Discharge: Yes Stand-Alone Forms: My [facility], Smoking Cessation Medications and DC Order Prescriptions: New magnesium oxide 400 mg (241.3 mg magnesium) Tablet 400 mg PO DAILY 30 Days Qty: 30 RF: 0 pantoprazole 40 mg Tablet,Delayed Release (Dr/Ec) 40 mg PO QAM 30 Days Qty: 30 RF: 3 spironolactone [Aldactone] 25 mg tablet 25 mg PO DAILY Qty: 30 RF: 0 Continued valacyclovir 500 mg Tablet 500 mg PO QAM RF: 0 omeprazole 20 mg Tablet,Delayed Release (Dr/Ec) 20 mg PO QAM RF: 0 lactulose [Constulose] 10 gram/15 mL solution 30 ml PO DAILY PRN (Reason: Constipation) RF: 0 diltiazem HCl [Cartia XT] 300 mg capsule,extended release 24hr 300 mg PO QAM RF: 0 ergocalciferol (vitamin D2) [Vitamin D2] 1,250 mcg (50,000 unit) Capsule 1,250 mcg PO WK RF: 0 albuterol sulfate 2.5 mg /3 mL (0.083 %) Solution For Nebulization 2.5 mg INHALATION Q4 PRN (Reason: Shortness Of Breath Or Wheezing) RF: 0 ranitidine HCl 300 mg Tablet 300 mg PO HS RF: 0 meclizine 12.5 mg Tablet 12.5 mg PO TID PRN (Reason: Dizziness Or Vertigo) RF: 0 hydrocodone-acetaminophen 10-325 mg Tablet 1 tab PO BID PRN (Reason: Pain) RF: 0 triamcinolone acetonide 0.1 % Cream 1 applic TOPICAL BID PRN (Reason: ITCHINESS BETWEEN LEGS.) RF: 0 diphenhydramine HCl [Benadryl] 25 mg Capsule 50 mg PO Q6H PRN (Reason: Itching) RF: 0 perphenazine 4 mg Tablet 18 mg PO BID RF: 0 folic acid 1 mg Tablet 1 mg PO DAILY RF: 0 furosemide [Lasix] 20 mg Tablet 20 mg PO DAILY RF: 0 metformin 500 mg Tablet Extended Release 24 Hr 1,000 mg PO DAILY RF: 0 nicotine (polacrilex) 4 mg Lozenge 4 mg BUCCAL Q2H PRN (Reason: Nicotine Cravings) RF: 0 diclofenac sodium [Voltaren] 1 % Gel 4 g TOPICAL QID PRN (Reason: Pain) RF: 0 Spiriva Respimat 2.5 mcg/actuation Mist 2 puff INHALATION DAILY RF: 0 thiamine HCl (vitamin B1) [Vitamin B-1] 50 mg Tablet 50 mg PO QAM RF: 0 Calcium 600 + D(3) 600 mg calcium- 200 unit Capsule 1 cap PO QAM RF: 0 Eliquis 2.5 mg Tablet 2.5 mg PO BID RF: 0 Lantus U-100 Insulin 100 unit/mL Solution 30 unit SUBCUT HS PRN (Reason: BLOOD SUGAR LEVEL) RF: 0 potassium chloride 20 mEq Tablet Extended Release 20 meq PO BID RF: 0 Discontinued meloxicam 15 mg Tablet 15 mg PO DAILY RF: 0 Discharge Orders: Discharge Order (Routine); Ordered 08/21/19 Ordered By: Neeta Bolden/Other Patient Handouts: Tips Using Less Salt, Choices Low Salt, Diet Low Salt Dc Admission Data Admit Date/Time: 08/17/19 23:31 Attending Provider: Neeta Tatum Admit Provider: Derrick Smith Primary Care Provider: Dante Rosario Other Providers: Julia Blank ; Mejia Moran Chunjie Other Interventions: Discharge Summary Assessment (RN) Last Done: 08/21/19 14:04
[2019-08-22 10:34] LABS: Hepatitis A Antibody IgM NON-REACTIVE (NON-REACTIVE); Hepatitis B Core Antibody IgM NON-REACTIVE (NON-REACTIVE); Hepatitis C Vira RNA (Log) PCR <1.18 NOT DETECTED Log IU/mL (NOT DETECTED); Hepatitis C Viral RNA by PCR <15 NOT DETECTED IU/mL (NOT DETECTED)
== END 2019-08-21 15:16 | disposition home or self-care (01) | DRG 432 ==
LOC: ED 17:36 → 2E 23:31 → INTOOBSV 23:31 → 2E 23:53 → 3W 08-19 12:37 → 3N 08-19 17:43

== ENCOUNTER 2019-10-06 18:36 | Inpatient (IN) ==
[2019-10-06] MEDS ORDERED: HYDROmorphone INJ 0.5 MG/0.5 ML SYR IV STA (19:00)
[2019-10-06] MEDS ORDERED: ONDANSETRON INJ 2 MG/ML 2 ML VIAL IV STA (19:00)
[2019-10-06 19:53] LABS: Hematocrit (blood only) 22.4 % (37-47); Mean Corpuscular Hemoglobin 34.6 pg (25-34); Mean Corpuscular Hgb Conc 35.7 g/dL (32-36); RDW Coefficient of Variation 15.6 % (11.5-14.5); RDW Standard Deviation 54.2 fL (36.4-46.3); Red Blood Count 2.31 M/uL (4.2-5.4)
[2019-10-06 20:09] LABS: Albumin Level 1.7 gm/dl (3.4-5.0); BUN Creatinine Ratio 5.6 (10-20); Calcium 8.5 mg/dl (8.5-10.1); Creatinine Clr Calc Pharmacy 22.7 ml/min; Est GFR (African American) 19.1; Est GFR (Non-African American) 16.5; Potassium 3.4 mmol/L (3.5-5.1)
[2019-10-06 20:12] LABS: Albumin Globulin Ratio 0.3 (0.9-2); Bilirubin,Total 3.4 mg/dl (0.2-1); Globulin 6.2 gm/dl (2.5-4.0); Total Protein 7.9 gm/dl (6.4-8.2)
[2019-10-06 20:15] LABS: Basophils # (auto) 0.01 K/uL (0-0.2); Basophils % (auto) 0.1 %; Eosinophils # (auto) 0.03 K/uL (0-0.5); Eosinophils % (auto) 0.3 %; Immature Granulocytes # (auto) 0.04 K/uL (0.00-0.02); Immature Granulocytes % (auto) 0.4 %; Lymphocytes # (auto) 0.61 K/uL (1.2-3.4); Lymphocytes % (auto) 6.1 %; Mean Platelet Volume 10.5 fL (7.4-10.4); Monocytes # (auto) 0.84 K/uL (0.11-0.59); Monocytes % (auto) 8.4 %; Neutrophils # (auto) 8.47 K/uL (1.4-6.5); Neutrophils % (auto) 84.7 %; Platelet Count 95 K/uL (130-400); Platelet Estimate Decreased (Normal); Target Cells 1+
[2019-10-06] MEDS ORDERED: POTASSIUM CHLORIDE 20 MEQ TABCR PO STA (20:23)
[2019-10-06 20:33] LABS: Magnesium 1.1 mg/dl (1.8-2.4)
--- NOTE | 2019-10-06 20:39 | Emergency Department Note ---
History of Present Illness General Chief complaint: Abdominal Pain Stated complaint: AB PAIN, URINARY PROBLEMS Source: patient Mode of arrival: ambulatory Limitations: no limitations History of Present Illness Provider complaint: Abdominal pain Onset (ago): week(s) 4 Severity: moderate and severe Pain Consistency: + constant Maximum Pain Intensity: 8 Quality: + aching Relieved By: + none Exacerbated By: + movement Associated symptoms: + cough and + shortness of breath; no fever/chills Treatments prior to arrival: none This patient is a 54-year-old female who presents to the emergency department with complaints of generalized abdominal pain and swelling. The patient states about 3 weeks ago she was notified that her kidneys were failing. She was supposed to come to the emergency department right away but did not. The melissa mabry states that she has not been drinking alcohol in some time but did have a drink several days ago for "pain control." Patient denies any significant chest pain or shortness of breath. She denies any fevers. She has had no vomiting or diarrhea. Patient has a long history of alcohol and cocaine use. Patient states she was supposed to have her gallbladder removed recently but canceled the appointment because she was afraid her "cirrhosis would spread." Home Medications Home Medications Medication Instructions Recorded Confirmed Type valacyclovir 500 mg PO QAM 07/05/18 10/06/19 History lactulose [Constulose] 30 ml PO DAILY PRN 09/29/18 10/06/19 History diltiazem HCl [Cartia XT] 300 mg PO QAM 12/01/18 10/06/19 History Eliquis 2.5 mg PO BID 07/06/19 10/06/19 History potassium chloride 20 meq PO BID 07/06/19 10/06/19 History diphenhydramine HCl [Benadryl] 50 mg PO Q6H PRN 08/17/19 10/06/19 History folic acid 1 mg PO DAILY 08/17/19 10/06/19 History furosemide [Lasix] See Rx Instructions .ROUTE .COMPLEX 08/17/19 10/06/19 History perphenazine 8 mg PO BID 08/17/19 10/06/19 History pantoprazole 40 mg PO QAM 30 Days #30 tab 08/21/19 10/06/19 Rx cetirizine 10 mg PO DAILY PRN 10/06/19 10/06/19 History hydroxyzine HCl 25 mg PO TID PRN 10/06/19 10/06/19 History spironolactone 50 mg PO DAILY 10/06/19 10/06/19 History tiotropium bromide [Spiriva 2 puff INHALATION DAILY 10/06/19 10/06/19 History Respimat] Allergies Allergy/AdvReac Type Severity Reaction Status Date / Time haloperidol Allergy Severe TONGUE Verified 08/17/19 20:34 SWELLING insulin lispro Allergy Intermediate HIVES Verified 08/17/19 20:34 phenol Allergy Intermediate HIVES Verified 08/17/19 20:34 citalopram Allergy Mild ITCHING Verified 08/17/19 20:34 sulfamethoxazole Allergy Mild RASH Verified 08/17/19 20:34 trimethoprim Allergy Mild RASH Verified 08/17/19 20:34 Bactrim Allergy Unknown RASH Verified 12/01/17 16:09 Penicillins Allergy Unknown Hives Verified 08/17/19 20:34 pregabalin [From Lyrica] AdvReac Severe SUICIDAL Verified 08/17/19 20:34 topiramate AdvReac Severe SEIZURE Verified 08/17/19 20:34 LIKE ACTIVITY oxycodone AdvReac Mild ITCH Verified 08/17/19 20:34 Margarine Allergy Severe RASH Uncoded 08/17/19 20:34 Past Med/Surg History Medical History Alcohol induced acute pancreatitis (Resolved) Alcohol use disorder (Chronic) Atrial fibrillation (Chronic) paroxysmal Chronic generalized pain disorder (Chronic) COPD (chronic obstructive pulmonary disease) (Chronic) DM type 2 (diabetes mellitus, type 2) (Chronic) EtOH dependence (Inactive) Fatty liver (Chronic) History of opioid abuse (Chronic) HTN (hypertension) (Chronic) Hx of cocaine abuse Neuropathy (Chronic) Non-sustained ventricular tachycardia (Inactive) Obesity (Chronic) Schizoaffective disorder (Chronic) Sciatic nerve disease (Chronic) Sleep apnea (Chronic) Tobacco use disorder (Chronic) Surgical History H/O foot surgery (Resolved) H/O ovarian cystectomy (Resolved) Family History Other Heart disease Kidney disease Social History Preferred Language: Bengali Communication Ability: Effective Visual Impairment: No Limitations Public Welfare Director Required: No Beliefs That Will Affect Care: None marital status: Single Current Living Situation: Family Current Living Situation Comment: lives with brother current occupational status: unemployed and disabled Feels Safe at Home: Yes Smoking Status: Current every day smoker Tobacco Type: cigarettes ; Cigarettes Per Day: 10 ; Second Hand Exposure: No ; Hx Alcohol Use: Yes Alcohol type: wine and hard liquor Hx Substance Use: No Review of Systems See HPI for pertinent positives & negatives. and A total of 10 systems reviewed and were otherwise negative Physical Exam Vital Signs Vital Signs - 24 hr 10/06/19 18:29 10/06/19 19:00 10/06/19 19:08 Temperature 36.9 C Temperature Source Oral Pulse Rate 100 H 104 H 107 H Pulse Rate [Right Finger] Pulse Rhythm Regular Pulse Strength Normal Respiratory Rate 30 H 23 24 Respiratory Effort / Characteristics Non-Labored Spontaneous Respiratory Depth Normal Respiratory Pattern Tachypnea Blood Pressure 102/66 98/63 L Blood Pressure [Left Arm] Blood Pressure Mean 78 69 Blood Pressure Mean [Left Arm] Blood Pressure Position Sitting Blood Pressure Position [Left Arm] Pulse Oximetry 90 97 96 Oxygen Delivery Method Room Air Room Air Sepsis Recent Fever Within 48 Hours No Sepsis New/Unexplained Change in Mental Status No Sepsis Action Taken by Nursing No Action Required 10/06/19 19:15 10/06/19 19:30 10/06/19 19:45 Temperature Temperature Source Pulse Rate 100 H 100 H 103 H Pulse Rate [Right Finger] Pulse Rhythm Pulse Strength Respiratory Rate 22 22 17 Respiratory Effort / Characteristics Respiratory Depth Respiratory Pattern Blood Pressure Blood Pressure [Left Arm] Blood Pressure Mean Blood Pressure Mean [Left Arm] Blood Pressure Position Blood Pressure Position [Left Arm] Pulse Oximetry Oxygen Delivery Method Sepsis Recent Fever Within 48 Hours Sepsis New/Unexplained Change in Mental Status Sepsis Action Taken by Nursing 10/06/19 19:51 10/06/19 20:00 10/06/19 20:32 Temperature Temperature Source Pulse Rate 108 H 106 H Pulse Rate [Right Finger] 104 H 97 H Pulse Rhythm Pulse Strength Respiratory Rate 24 23 24 Respiratory Effort / Characteristics Respiratory Depth Respiratory Pattern Blood Pressure 96/62 L 101/97 Blood Pressure [Left Arm] 96/62 L 92/65 L Blood Pressure Mean 68 98 Blood Pressure Mean [Left Arm] 73 74 Blood Pressure Position Blood Pressure Position [Left Arm] Lying Pulse Oximetry 97 97 97 Oxygen Delivery Method Sepsis Recent Fever Within 48 Hours Sepsis New/Unexplained Change in Mental Status Sepsis Action Taken by Nursing Vital signs reviewed. General: Chronically ill-appearing 54 yo female, in no significant distress. HEENT: No scleral icterus, PERRLA, neck supple. Atraumatic. Moist mucous membranes Cardiovascular: Regular rate and rhythm, no extra sounds. Pulmonary: Clear to auscultation bilaterally, normal work of breathing. Abdomen: Distended and diffusely tender. Positive fluid wave. Musculoskeletal: Atraumatic, no peripheral edema. Neurologic: Patient awake alert and answers most questions appropriately. Skin: Warm, dry, no rash Course Administered Medications Discontinued Medications Hydromorphone HCl (Dilaudid) 0.5 mg IV NOW STA Stop: 10/06/19 19:01 Last Admin: 10/06/19 19:52 Dose: 0.5 mg Documented by: [id number] Ondansetron HCl (Zofran) 4 mg IV NOW STA Stop: 10/06/19 19:01 Last Admin: 10/06/19 19:53 Dose: 4 mg Documented by: [id number] Medical Decision Making Differential Diagnosis DDx: Abdominal ascites, SBP, cholelithiasis, cholecystitis, bowel obstruction, diverticulitis, pancreatitis, renal colic, appendicitis inflammatory bowel disease, gastritis, and peptic/gastric ulcer disease. Medical Records Attestation: I reviewed the patient's medical records. Home Medications Current Medication List: was personally reviewed by me Laboratory Data Attestation: I reviewed the patient's lab results. Result diagrams: 10/06/19 19:40 10/06/19 19:40 Lab Results 10/06/19 10/06/19 Range/Units 19:40 19:40 WBC 10.00 (4.8-10.8) K/uL RBC 2.31 L (4.2-5.4) M/uL Hgb 8.0 L (12.0-16.0) g/dL Hct 22.4 L (37-47) % MCV 97.0 (80-100) fL MCH 34.6 H (25-34) pg MCHC 35.7 (32-36) g/dL RDW Std Deviation 54.2 H (36.4-46.3) fL RDW Coeff of Ally 15.6 H (11.5-14.5) % Plt Count 95 L (130-400) K/uL MPV 10.5 H (7.4-10.4) fL Immature Gran % (Auto) 0.4 % Neut % (Auto) 84.7 % Lymph % (Auto) 6.1 % Moca % (Auto) 8.4 % Eos % (Auto) 0.3 % Baso % (Auto) 0.1 % Immature Gran # (Auto) 0.04 H (0.00-0.02) K/uL Neut # (Auto) 8.47 H (1.4-6.5) K/uL Lymph # (Auto) 0.61 L (1.2-3.4) K/uL Moca # (Auto) 0.84 H (0.11-0.59) K/uL Eos # (Auto) 0.03 (0-0.5) K/uL Baso # (Auto) 0.01 (0-0.2) K/uL Platelet Estimate Decreased L (Normal) Target Cells 1+ Sodium 125 L (136-145) mmol/L Potassium 3.4 L (3.5-5.1) mmol/L Chloride 93 L (98-107) mmol/L Carbon Dioxide 24 (21-32) mmol/L Anion Gap 8.0 (3-11) BUN 17 (7-18) mg/dl Creatinine 3.05 H (0.6-1.2) mg/dl Est Cr Clr Drug Dosing 22.7 ml/min Est GFR ( Amer) 19.1 Est GFR (Non-Af Amer) 16.5 BUN/Creatinine Ratio 5.6 L (10-20) Glucose 112 H (70-99) mg/dl Calcium 8.5 (8.5-10.1) mg/dl Total Bilirubin 3.4 H (0.2-1) mg/dl AST 24 (15-37) U/L ALT 17 (12-78) U/L Alkaline Phosphatase 255 H (45-117) U/L Total Protein 7.9 (6.4-8.2) gm/dl Albumin 1.7 L (3.4-5.0) gm/dl Globulin 6.2 H (2.5-4.0) gm/dl Albumin/Globulin Ratio 0.3 L (0.9-2) Lipase 109 (73-393) U/L Imaging Data Radiologist's Impression: SINGLE VIEW CHEST CLINICAL HISTORY: Dyspnea. FINDINGS: An AP, portable, upright chest radiograph is compared to study dated 08/17/2019. The examination is degraded by portable technique and patient rotation. The cardiomediastinal silhouette is unremarkable. Patchy airspace opacities are present at both lung bases. No large pleural effusion or pneumothorax is seen. The skeletal structures are osteopenic. The bony thorax is grossly intact. Degenerative change is noted in the shoulders. IMPRESSION: Patchy airspace opacities are present at both lung bases. This could represent atelectasis versus a mild infectious/inflammatory pneumonitis. Clinical correlation will be essential. ACT 112: Negative or not required by law. Electronically signed by: Valerio Copeland M.D. 10/06/2019 8:39 PM ECG Data Additional Comments: An order for cardiac monitoring was placed and the patient is found to be in a sinus rhythm at 97 bpm. Blood Pressure Blood Pressure Findings: Low blood pressure Blood Pressure Disposition: further management by hospitalist MDM Narrative This patient was evaluated and appeared to be in no significant distress. Patient is chronically ill and is complaining of abdominal pain. Patient states she was notified 3 weeks ago that her kidneys were failing and advised to come to the emergency department by her physician's office however she did not. Patient is complaining of increased abdominal girth and all over pain. She denies any fevers, chills, chest pain or shortness of breath currently. She denies any vomiting or diarrhea. Patient states she has not been drinking heavily lately. IV access was obtained and laboratory work was drawn. The patient was placed on the case monitor. Abdominal exam is consistent with marked ascites. Laboratory work reveals a normal WBC, chronic anemia and a creatinine of 3.05. This is up from 1.22 recently. Patient's sodium is low, likely secondary to diuretics. She was discussed with the hospitalist service, Dr. Marino who will evaluate the patient for further management. Impression & Plan Acute renal failure Discharge Plan Visit Data Chief Complaint: Abdominal Pain Stated Complaint: AB PAIN, URINARY PROBLEMS ED Provider: Lise Jeter Discharge Problem: Acute renal failure Forms Stand Alone Forms: My [employer] Prescriptions Prescriptions: No Action valacyclovir 500 mg Tablet 500 mg PO QAM RF: 0 lactulose [Constulose] 10 gram/15 mL solution 30 ml PO DAILY PRN (Reason: Constipation) RF: 0 diltiazem HCl [Cartia XT] 300 mg capsule,extended release 24hr 300 mg PO QAM RF: 0 diphenhydramine HCl [Benadryl] 25 mg Capsule 50 mg PO Q6H PRN (Reason: Itching) RF: 0 perphenazine 4 mg Tablet 8 mg PO BID RF: 0 folic acid 1 mg Tablet 1 mg PO DAILY RF: 0 furosemide [Lasix] 20 mg Tablet See Rx Instructions .ROUTE .COMPLEX RF: 0 pantoprazole 40 mg Tablet,Delayed Release (Dr/Ec) 40 mg PO QAM 30 Days Qty: 30 RF: 3 Eliquis 2.5 mg Tablet 2.5 mg PO BID RF: 0 potassium chloride 20 mEq Tablet Extended Release 20 meq PO BID RF: 0 cetirizine 10 mg tablet 10 mg PO DAILY PRN (Reason: Allergy Symptoms) RF: 0 hydroxyzine HCl 25 mg tablet 25 mg PO TID PRN (Reason: Itching) RF: 0 spironolactone 50 mg tablet 50 mg PO DAILY RF: 0 Spiriva Respimat 1.25 mcg/actuation mist 2 puff INHALATION DAILY RF: 0 Discharge Problem: Acute renal failure Qualifiers: Acute renal failure type: unspecified Qualified Code(s): N17.9 - Acute kidney failure, unspecified
--- NOTE | 2019-10-06 20:40 | XRay Report ---
SINGLE VIEW CHEST CLINICAL HISTORY: Dyspnea. FINDINGS: An AP, portable, upright chest radiograph is compared to study dated 08/17/2019. The examina tion is degraded by portable technique and patient rotation. The cardiomediastinal silhouette is un remarkable. Patchy airspace opacities are present at both lung bases. No large pleural effusion or pn eumothorax is seen. The skeletal structures are osteopenic. The bony thorax is grossly intact. Degene rative change is noted in the shoulders. IMPRESSION: Patchy airspace opacities are present at both lung bases. This could represent atelectasi s versus a mild infectious/inflammatory pneumonitis. Clinical correlation will be essential. ACT 112: Negative or not required by law. Electronically signed by: Valerio Copeland M.D. 10/06/2019 8:39 PM
[2019-10-06] MEDS ORDERED: SODIUM CHLORIDE 0.9% 500 ML IV ONE (20:42)
--- NOTE | 2019-10-06 21:17 | History & Physical Report ---
Date of Service October 06, 2019 Assessment & Plan (1) Abdominal pain: (2) Ascites: Pt is 54 y/o F with PMH schizoaffective disorder, anxiety, DM II, paroxysmal atrial fibrillation, HTN, COPD, h/o alcohol and drug use, cirrhosis presented to ER with complaint of abdominal pain, increased abdominal distention for several weeks. Patient reports not taking lactulose as directed secondary to causing diarrhea. Reports taking diuretics. In ER patient afebrile, PA: 100, R: 24 down to 19, BP: 102/66, 90-97% on room air. WBC: 10, H/H: 02/18, PLT: 95, AST: 24, ALT: 17, alk phos: 255, total bili: 3.4, lipase: 109 -In ER given Zofran, Dilaudid -Assessment and plan per Dr Smith (3) Anemia: H/H: 02/18 (Hgb 8.5 on 08/20) (4) Acute renal failure (ARF): BUN: 17, Cr: 3.0 (history VENECIA in 07/2019 and Cr down trended to1.2 on 08/20/2019, prior baseline~0.8) (5) Hyponatremia: Na: 125, Was 133 on 08/20/2019 (6) Hypokalemia: K: 3.4 (7) Hypomagnesemia: Magnesium: 1.1 (8) DM type 2 (diabetes mellitus, type 2): A1c: 4.9 in 07/2019 (9) Paroxysmal atrial fibrillation: On Eliquis (10) COPD (chronic obstructive pulmonary disease): Current wheezing. Patient reports chronic wheezing (11) HTN (hypertension): On diltiazem at home (12) Schizoaffective disorder: On perphenazine at home Follows with Dr Rosario for routine care. Pt was seen and care coordinated with Dr Smith. See addendum for assessment and plan History of Present Illness Chief Complaint: Abdominal pain Primary Care Provider: Dante Rosario, Pt is 54 y/o F with PMH schizoaffective disorder, anxiety, DM II, paroxysmal atrial fibrillation, HTN, COPD, h/o alcohol and drug use, cirrhosis presented to ER with complaint of abdominal pain for several weeks. Patient poor historian. patient states for the past several weeks has been noticing increased fluid accumulation to her abdomen and increased abdominal distention with associated abdominal discomfort worse to left upper abdomen. Patient also reports increased shortness of breath. She reports increased lower extremity edema. Patient reports itching to abdomen, back, buttocks, extremities. Patient admits to scratching skin and reports couple weeks ago noticed a fall landing on her leg and then thought she saw a white worm coming from skin of right posterior knee. Patient reports 1 month ago had epistaxis and hematuria. Patient denies any further epistaxis or hematuria. Reports nausea and decreased appetite. Patient also reports several episodes of vomiting daily past 1 to 2 months. Reports poor oral intake. Patient reports that she has not been taking her lactulose because it causes loose stools. She states that she has been taking her diuretics. Patient reports still smoking. States she has not been heavily drinking since last admission however has been having some "sips of beer here and there". Denies fever/chills, diaphoresis, hematemesis, melena, hematochezia, CARSON, dizziness, syncope, vision changes, neck pain, CP, palpitations, cough, sore throat, choking, otalgia, rhinorrhea, extremity weakness, dysuria, urinary frequency. Patient with recent hospitalization 07/2019 for VENECIA, anemia, hyponatremia, abdominal pain, found to have ascites. During that admission EGD was negative. Colonoscopy showed internal and external hemorrhoids. 08/18/2019 had paracentesis with removal of 2.6 L fluid. Had MRCP 08/19/2019: Small to moderate volume ascites, cholelithiasis, gallbladder wall thickening. Surgery has seen patient. GI saw patient patient was placed on diuretics. Allergies Allergy/AdvReac Type Severity Reaction Status Date / Time haloperidol Allergy Severe TONGUE Verified 08/17/19 20:34 SWELLING insulin lispro Allergy Intermediate HIVES Verified 08/17/19 20:34 phenol Allergy Intermediate HIVES Verified 08/17/19 20:34 citalopram Allergy Mild ITCHING Verified 08/17/19 20:34 sulfamethoxazole Allergy Mild RASH Verified 08/17/19 20:34 trimethoprim Allergy Mild RASH Verified 08/17/19 20:34 Bactrim Allergy Unknown RASH Verified 12/01/17 16:09 Penicillins Allergy Unknown Hives Verified 08/17/19 20:34 pregabalin [From Lyrica] AdvReac Severe SUICIDAL Verified 08/17/19 20:34 topiramate AdvReac Severe SEIZURE Verified 08/17/19 20:34 LIKE ACTIVITY oxycodone AdvReac Mild ITCH Verified 08/17/19 20:34 Margarine Allergy Severe RASH Uncoded 08/17/19 20:34 Home Medications Home Medications Medication Instructions Recorded Confirmed Type valacyclovir 500 mg PO QAM 07/05/18 10/06/19 History lactulose [Constulose] 30 ml PO DAILY PRN 09/29/18 10/06/19 History diltiazem HCl [Cartia XT] 300 mg PO QAM 12/01/18 10/06/19 History Eliquis 2.5 mg PO BID 07/06/19 10/06/19 History potassium chloride 20 meq PO BID 07/06/19 10/06/19 History diphenhydramine HCl [Benadryl] 50 mg PO Q6H PRN 08/17/19 10/06/19 History folic acid 1 mg PO DAILY 08/17/19 10/06/19 History furosemide [Lasix] See Rx Instructions .ROUTE .COMPLEX 08/17/19 10/06/19 History perphenazine 8 mg PO BID 08/17/19 10/06/19 History pantoprazole 40 mg PO QAM 30 Days #30 tab 08/21/19 10/06/19 Rx cetirizine 10 mg PO DAILY PRN 10/06/19 10/06/19 History hydroxyzine HCl 25 mg PO TID PRN 10/06/19 10/06/19 History spironolactone 50 mg PO DAILY 10/06/19 10/06/19 History tiotropium bromide [Spiriva 2 puff INHALATION DAILY 10/06/19 10/06/19 History Respimat] Past Med/Surg History Medical History (Updated 10/07/19 @ 00:01 by Background Betzy) Alcohol induced acute pancreatitis (Resolved) Alcohol use disorder (Chronic) Atrial fibrillation (Chronic) paroxysmal Chronic generalized pain disorder (Chronic) COPD (chronic obstructive pulmonary disease) (Chronic) DM type 2 (diabetes mellitus, type 2) (Chronic) EtOH dependence (Inactive) Fatty liver (Chronic) History of opioid abuse (Chronic) HTN (hypertension) (Chronic) Hx of cocaine abuse Neuropathy (Chronic) Non-sustained ventricular tachycardia (Inactive) Obesity (Chronic) Paroxysmal atrial fibrillation Schizoaffective disorder (Chronic) Sciatic nerve disease (Chronic) Sleep apnea (Chronic) Tobacco use disorder (Chronic) Surgical History H/O foot surgery (Resolved) H/O ovarian cystectomy (Resolved) Family History Other Heart disease Kidney disease Social History Preferred Language: Japanese Communication Ability: Effective Visual Impairment: No Limitations 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 Beliefs That Will Affect Care: None marital status: Single Current Living Situation: Family Current Living Situation Comment: lives with brother current occupational status: unemployed and disabled Other Information That Helps Us Care for You: No Feels Safe at Home: Yes Safety Concerns: Feels Safe At This Time Smoking Status: Current every day smoker Tobacco Type: cigarettes ; Cigarettes Per Day: 10 ; Second Hand Exposure: No ; Hx Alcohol Use: Yes Alcohol type: wine and hard liquor Hx Substance Use: No Review of Systems Review of Systems: All systems reviewed & are unremarkable except as noted in HPI & below Physical Exam Physical Exam: General: no acute distress, obese Head: normocephalic, atraumatic Eyes: PERRL, EOM's intact, conjunctiva non-injected, +icterus ENT: normal inspection external ears, nose, mucous membranes dry Neck: supple, trachea midline, non-tender Lungs: no respiratory distress, + diffuse wheezing, no rhonchi/rales CV: RRR, no murmur, no JVD, 1-2+ pretibial edema Abd: normal BS, distended, +tenderness to palpation RUQ, epigastric and LUQ without rebound or guarding Ext: no cyanosis, no calf tenderness Neuro: A&O x 3, no focal deficits noted, normal affect Skin: warm, dry; +excoriations to bilateral extremities, buttock Results & Data Results & Data ([facility]) Vital Signs (Past 12 Hours) Vital Signs Temp Pulse Pulse Resp BP BP Pulse Ox 10/06/19 20:32 97 H 24 92/65 L 97 10/06/19 20:00 106 H 23 101/97 97 10/06/19 19:51 108 H 104 H 24 96/62 L 96/62 L 97 10/06/19 19:45 103 H 17 10/06/19 19:30 100 H 22 10/06/19 19:15 100 H 22 10/06/19 19:08 107 H 24 96 10/06/19 19:00 104 H 23 98/63 L 97 10/06/19 18:29 36.9 C 100 H 30 H 102/66 90 Laboratory Results Short CBC 10/06/19 Range/Units 19:40 WBC 10.00 (4.8-10.8) K/uL Hgb 8.0 L (12.0-16.0) g/dL Hct 22.4 L (37-47) % Plt Count 95 L (130-400) K/uL BMP 10/06/19 19:40 Sodium 125 L Potassium 3.4 L Chloride 93 L Carbon Dioxide 24 BUN 17 Creatinine 3.05 H Glucose 112 H Calcium 8.5 Liver Function 10/06/19 Range/Units 19:40 Total Bilirubin 3.4 H (0.2-1) mg/dl AST 24 (15-37) U/L ALT 17 (12-78) U/L Alkaline Phosphatase 255 H (45-117) U/L Albumin 1.7 L (3.4-5.0) gm/dl Diagnostic Findings CXR: IMPRESSION: Patchy airspace opacities are present at both lung bases. This could represent atelectasis versus a mild infectious/inflammatory pneumonitis. Clinical correlation will be essential. Supervising Physician Co-Signing Physician Notes IM ATTENDING : Patient seen and examined. History obtained from patient and records. Preceding documentation by Ms. Tennille Griffin PA-C reviewed. In addition, patient endorses melena symptoms since discharge from the hospital almost 2 months ago. Progressive abdominal distention noted despite diuretic Rx. Junky cough symptoms following emesis symptoms the last week as per patient. FINAL ASSESSMENT AND PLAN as follows : UGIB, gastritis on EGD from recent confinement, hx Eliquis intake for PAF hx, hemoglobin stable at baseline Recurrent ascites possible SBP, probable alcoholic cirrhosis, possible sepsis Possible aspiration pneumonia Hyponatremia, ARF secondary to illness, diuretic Rx ? Beginning hepatorenal syndrome Coagulopathy secondary to liver disease HTN, BP on the lower side hx TIAs as per records chronic respiratory failure secondary to COPD on home O2, pulmonary status at baseline DM2 insulin requiring, well-controlled as of recent hemoglobin A1c of 4.9, July 2019 Hypokalemia secondary to emesis , poor p.o. intake, diuretic Rx mood disorder/personality disorder/paranoid schizophrenia, at baseline history ongoing cocaine/alcohol/tobacco abuse. PCU IV PPI Stop Eliquis, anticoagulation may need to be stopped permanently given recurrent/persistent GI bleed Serial H&H, transfuse PRBC if hemoglobin less than 8 and or for symptomatic anemia (hx TIAs as per records) GI consult RE recurrent U GIB/ascites Diagnostic and therapeutic paracentesis in a.m. Vitamin K, FFP to reverse coagulopathy prior to paracentesis Cultures, follow lactic acid IV albumin for possible SBP for now Ertapenem to cover possible SBP and aspiration pneumonia. Baseline UA, hold home diuretics for now Nephrology consult RE ARF, hyponatremia Replace electrolytes ISS BG goal [id number] DT precautions Nicotine patch PRN DVT prophylaxis. SCDs RE GI bleed Full code Patient requesting for female medical providers whenever possible. Text document was generated using [employer] voice recognition software. It may contain grammatical or spelling errors. Kindly contact undersigned for clarification of any documentation item in question. 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: unspecified fdc insulin use status Qualified Code(s): E11.69 - Type 2 diabetes mellitus with other specified complication (3) Anemia Anemia type: unspecified type Qualified Code(s): D64.9 - Anemia, unspecified (4) Ascites Ascites type: other type Qualified Code(s): R18.8 - Other ascites (5) Schizoaffective disorder Schizoaffective disorder type: unspecified Qualified Code(s): F25.9 - Schizoaffective disorder, unspecified (6) Abdominal pain Abdominal location: epigastric Qualified Code(s): R10.13 - Epigastric pain (7) HTN (hypertension) Hypertension type: unspecified Qualified Code(s): I10 - Essential (primary) hypertension
[2019-10-06] MEDS ORDERED: ERTAPENEM SODIUM 10 ML IV STA (21:32)
[2019-10-06] MEDS ORDERED: PANTOprazole 80 MG in DEXTROSE 5% 100 ML IV STA (21:32)
[2019-10-06] MEDS ORDERED: HYDROCODONE/ACETAMOPHEN 5/325MG TAB PO STA (21:33)
[2019-10-06] MEDS ORDERED: LORATADINE 10 MG TAB PO STA (21:35)
[2019-10-06 21:53] LABS: INR 2.4 (0.9-1.1); Partial Thromboplastin Ratio 1.7
[2019-10-06 22:01] LABS: Partial Thromboplastin Time 47.6 Seconds (21.0-31.0)
--- NOTE | 2019-10-06 22:16 | CT Scan Report ---
CT SCAN OF THE BRAIN WITHOUT IV CONTRAST CLINICAL HISTORY: Headache. COMPARISON STUDY: CT of the brain dated 05/04/2019. TECHNIQUE: Unenhanced axial CT scan of the brain is performed from the vertex to the skull base. A d ose lowering technique was utilized adhering to the principles of ALARA. The patient was scanned twic e due to motion artifact. CT DOSE: 1074.96 mGy.cm FINDINGS: Brain parenchyma: There is mild microangiopathic change. There is no hemorrhage, mass effect, or evid ence of acute territorial ischemia by CT criteria. Rose-white matter differentiation is preserved. No extra-axial fluid collection is seen. Ventricles, sulci, cisterns: Normal in configuration. Intracranial vasculature: There is atherosclerotic calcification of the cavernous carotid arteries. Calvarium: Unremarkable. Sinuses and mastoids: The visualized paranasal sinuses are clear. The mastoid air cells are well pneu matized. Orbits: The bony orbits are grossly intact. IMPRESSION: No acute intracranial abnormality. ACT 112: Negative or not required by law. Electronically signed by: Valerio Copeland M.D. 10/06/2019 10:15 PM
[2019-10-06] MEDS ORDERED: PHYTONADIONE 10 MG in SODIUM CHLORIDE 0.9% 50 ML IV ONE (22:20)
--- NOTE | 2019-10-06 22:25 | CT Scan Report ---
CT SCAN OF THE ABDOMEN AND PELVIS WITHOUT IV CONTRAST CLINICAL HISTORY: Generalized abdominal pain. COMPARISON STUDY: Abdominal CT dated 08/17/2019. TECHNIQUE: CT scan of the abdomen and pelvis is performed from the lung bases to the proximal femora. Images are reviewed in the axial, sagittal, and coronal planes. IV contrast was not administered for this examination as per the referring clinician. Note that the examination was performed in signific antly suboptimal fashion without oral and IV contrast. A dose lowering technique was utilized adherin g to the principles of ALARA. CT DOSE: 1387.54 mGy.cm FINDINGS: Lung bases: The heart is normal in size and without pericardial effusion. The lung bases are clear no ting bibasilar scarring/atelectasis. Liver: The unenhanced liver is struck in morphology. The liver demonstrates diffusely diminished atte nuation consistent with hepatic steatosis. There is nodularity of the hepatic surface contour and hyp ertrophy of the left lobe. There is no intrahepatic biliary ductal dilatation. Gallbladder: There are numerous calcified gallstones with no CT evidence of acute cholecystitis. Spleen: Normal in size and attenuation. Pancreas: The unenhanced pancreas is atrophic and grossly unremarkable. Adrenal glands: Unremarkable. Kidneys: The unenhanced kidneys demonstrate cortical atrophy and are without hydronephrosis. There ar e no renal calculi identified. There is no evidence of contour deforming renal mass lesion. Abdominal vasculature: The abdominal aorta is normal in course and caliber noting mild to moderate at herosclerotic calcification. Bowel: There is no bowel obstruction. The appendix is not clearly visualized. Peritoneum: There is no intraperitoneal free air. There is a moderate to large volume of abdominopelv ic ascites. Lymphadenopathy: None. Pelvic viscera: The bladder is decompressed and not well evaluated. Uterus and adnexa are normal as v isualized. Skeletal structures: The skeletal structures are osteopenic. No lytic or blastic lesions are seen. Th ere is an acute to subacute left 7th posterolateral rib fracture. There is a subacute/healing right p osterolateral 7th rib fracture. Soft tissues: There is body wall edema. IMPRESSION: 1. Suboptimal examination without oral and IV contrast. 2. There are no acute infectious or inflammatory findings in the abdomen or pelvis. 3. There are acute to subacute appearing bilateral 7th rib fractures. Correlate for point tenderness. 4. The liver is cirrhotic in morphology with evidence of steatosis. 5. A moderate to large volume of abdominopelvic ascites indicate portal hypertension. 6. Cholelithiasis. 7. Additional findings as above. ACT 112: Negative or not required by law. Electronically signed by: Valerio Copeland M.D. 10/06/2019 10:24 PM
[2019-10-06] MEDS ORDERED: SODIUM CHLORIDE 0.9% 250 ML IV PRN (23:18)
[2019-10-06] MEDS ORDERED: LORazepam 0.5 MG/1 ML VIAL IV PRN (23:18)
[2019-10-06] MEDS ORDERED: XOPENEX/ATROVENT 1.25mg/0.5MG NEB COMBO NEB PRN (23:18)
[2019-10-06] MEDS ORDERED: PANTOprazole 80 MG in DEXTROSE 5% 100 ML IV ONE (23:18)
[2019-10-06] MEDS ORDERED: ACETAMINOPHEN 325 MG TAB PO PRN (23:18)
[2019-10-06] MEDS ORDERED: HYDROmorphone INJ 0.5 MG/0.5 ML SYR IV PRN (23:18)
[2019-10-06] MEDS ORDERED: LEVALBUTEROL 1.25MG/0.5ML NEB INH PRN (23:18)
[2019-10-06] MEDS ORDERED: IPRATROPIUM BROMIDE NEB SOLN 0.02% 2.5 ML VIAL INH PRN (23:18)
[2019-10-06] MEDS ORDERED: XOPENEX/ATROVENT 1.25mg/0.5MG NEB COMBO NEB STA (23:18)
[2019-10-06] MEDS ORDERED: PROMETHAZINE HCL 12.5 MG in SODIUM CHLORIDE 0.9% 50 ML IV PRN (23:18)
[2019-10-06] MEDS ORDERED: LORazepam 3 MG/6 ML VIAL IV PRN (23:27)
[2019-10-06] MEDS ORDERED: ATIVAN IV ALCOHOL WITHDRAWL IV PRN (23:27)
[2019-10-06] MEDS ORDERED: LORazepam 1 MG/2 ML VIAL IV PRN (23:27)
[2019-10-06] MEDS ORDERED: GABAPENTIN 600MG ALCOHOL WITHDRAWAL LOAD PO STA (23:27)
[2019-10-06] MEDS ORDERED: LORazepam 2 MG/4 ML VIAL IV PRN (23:27)
[2019-10-06] MEDS ORDERED: ERTAPENEM CONSULT ACTIVE PRN (23:29)
[2019-10-06] MEDS ORDERED: LEVALBUTEROL 1.25MG/0.5ML NEB INH STA (23:30)
[2019-10-06] MEDS ORDERED: IPRATROPIUM BROMIDE NEB SOLN 0.02% 2.5 ML VIAL INH STA (23:30)
[2019-10-07] MEDS: MAGNESIUM SULFATE / D5W 1 GM/100 ML BAG IV SCH ×4 (00:09→03:30)
[2019-10-07] MEDS: PANTOprazole 40 MG in DEXTROSE 5% 100 ML IV SCH ×5 (00:28→22:02)
[2019-10-07] MEDS ORDERED: THIAMINE HCL 100 MG in SYRINGE 9 ML IV ONE (00:30)
[2019-10-07] MEDS ORDERED: GABAPENTIN 600 MG TAB PO ONE (00:30)
[2019-10-07 00:35] LABS: Hematocrit (blood only) 21.3 % (37-47); Hemoglobin 7.5 g/dL (12.0-16.0)
[2019-10-07] MEDS: PERPHENAZINE 2 MG TABLET PO SCH ×4 (00:35→22:03)
[2019-10-07] MEDS ORDERED: SODIUM CHLORIDE 0.9% 250 ML IV PRN (00:46)
[2019-10-07 01:19] LABS: BUN Creatinine Ratio 5.3 (10-20); Calcium 8.1 mg/dl (8.5-10.1); Creatinine Clr Calc Pharmacy 22.6 ml/min; Est GFR (African American) 17.6; Est GFR (Non-African American) 15.2; Potassium 3.4 mmol/L (3.5-5.1)
[2019-10-07 01:29] LABS: Thyroid Stimulating Hormone 2.27 uIu/ml (0.300-4.500)
[2019-10-07] MEDS ORDERED: POTASSIUM CHLORIDE 20 MEQ TABCR PO STA (01:56)
[2019-10-07] MEDS ORDERED: POTASSIUM CHLORIDE / WTR 10 MEQ/100 ML PLCT IV ONE (01:58)
[2019-10-07] MEDS: ALBUMIN 25% 50 ML IV SCH ×4 (02:06→17:28)
[2019-10-07] MEDS ORDERED: ALBUMIN 25% 50 ML IV ONE (02:53)
[2019-10-07] MEDS ORDERED: DiphenhydrAMINE 2%/ZINC 0.1% CREAM 28GM TUBE EXT PRN (03:02)
[2019-10-07 04:30] LABS: Appearance Urine Turbid (Clear); Blood Urine Negative (Negative); Epithelial Cell Urine Auto >30 /lpf (0-5); Glucose Urine UA Negative (Negative); Ketones Urine Negative (Negative); Leukocyte Esterase Urine 1+ (Negative); Nitrite Urine Positive (Negative); Protein Urine 1+ (Negative); RBC Urine Automated 0-4 /hpf (0-4); Specific Gravity Urine 1.026 (1.000-1.030); Urobilinogen Urine Negative (Negative)
[2019-10-07] MEDS ORDERED: GLUCAGON FOR INJ 1 MG VIAL IM PRN (04:30)
[2019-10-07] MEDS ORDERED: GLUCOSE 10 TABS/TUBE PO PRN (04:30)
[2019-10-07] MEDS ORDERED: CARBOHYDRATES FOR HYPOGLYCEMIA PO PRN (04:30)
[2019-10-07] MEDS ORDERED: DEXTROSE 50% 50 ML SYRINGE IV PRN (04:30)
[2019-10-07] MEDS ORDERED: GLUCOSE 40% GEL 15 GM TUBE PO PRN (04:30)
[2019-10-07 04:34] LABS: Bilirubin Urine 2+ (Negative)
[2019-10-07 04:35] LABS: Color Urine Amber; Ictotest Urine Positive (Negative)
[2019-10-07 04:59] LABS: Cast Urine Automated >30 /lpf (0-5)
[2019-10-07 05:00] LABS: Amorphous Sediment Urine Present (None Prsent); Bacteria Urine Automated 1+ (Negative)
[2019-10-07 05:21] LABS: Amphetamines+Metham, Urine Neg (Neg); Barbiturates, Urine Neg (Neg); Benzodiazepine, Urine Neg (Neg); Cocaine, Urine Neg (Neg); MDMA (Ecstacy), Urine Neg (Neg); Methadone, Urine Neg (Neg); Opiate, Urine Pos (Neg); Phencyclidine, Urine Neg (Neg)
[2019-10-07] MEDS: GABAPENTIN 100 MG CAP PO SCH ×2 (06:18→11:24)
[2019-10-07] MEDS: INSULIN ASPART 100 UNITS/ML 3 ML PEN SC SCH ×4 (06:28→22:02)
[2019-10-07] MEDS: THIAMINE HCL 100 MG TAB PO SCH (08:00)
[2019-10-07] MEDS: MULTIVITAMIN TAB PO SCH (08:00)
[2019-10-07] MEDS: dilTIAZem HCL 300 MG CAPCR PO SCH (08:01)
[2019-10-07] MEDS: FOLIC ACID 1 MG TAB PO SCH (08:01)
[2019-10-07] MEDS: UMECLIDINIUM BROMIDE 62.5MCG/BLISTER 7 PUFFS/INHALER INH SCH (08:01)
--- NOTE | 2019-10-07 08:31 | Gastrointestinal Consultation ---
Date of Consultation October 07, 2019 Assessment & Plan (1) Ascites: 53 year old female with history of polysubstance abuse, COPD, Afib on Eliquis, hx of TIAs, HTN, DM II, schizophrenia admitted w/ VENECIA, ascites. Prior admission in July she underwent endoscopic evaluation w/ both an upper and lower endoscopy without any evidence of active bleeding or significant abnormality. She underwent diagnostic/therapeutic paracentesis given new development of ascites which was concerning for portal hypertension, outside imaging concerning for cirrhosis, negative cytology. Now admitted w/ ascites despite diuresis and report of dietary compliance and VENECIA, not agreeable to repeat paracentesis as this causes her pain. MELD 35 - Daily MELD labs - She is agreeable to formal rehabilitation service at discharge for her polysubstance abuse - No NSAIDs - Less than 2G of tylenol containing products if using - Low NA diet, less than 2G daily - Hold diuretics - Check urine studies including urine NA - Consult nephrology Home dose was Lasix 20 mg, aldactone 50 mg - Consider evaluation for TIPS by IR as she is not tolerating diuresis - No ETOH, other illicit drug - EGD in 2021 - HCC screen in January 2020 - OP hepatology referral Thank you for allowing us to participate in the care of this patient. Please call with any acute changes, questions or concerns. Please see addendum below with additional recommendation from my supervising physician. Present on Admission?: Yes Supervising Physician Co-Signing Physician Notes I saw and evaluated the patient. She is known to our group from a prior admission. In the past she has been seen by a number of other local GI groups but was dismissed from their practices due to noncompliance with medical mentations the patient presented with abdominal discomfort and again was found to have ascites he is presently refusing to have a therapeutic paracentesis. We did have the patient start diuretics during her last admission, unfortunately she has developed worsening renal failure suggesting that she is diuretic intolerant. Physical examination Disheveled appearing, patient is argumentative Impression: Patient with a history of alcoholic liver disease resulting in cirrhosis manifested by ascites. Unfortunately she is not responsive to diuretics and did develop acute renal insufficiency. As result we would recommend discontinuation of diuretics and follow recommendations from nephrology. Perhaps the patient would benefit from use of intravenous albumin over the next few days. For control of her volume if her renal failure does not improve perhaps she would be best served by referral to tertiary center with a TIPS capabilities. History of Present Illness Reason for Consultation: ascites Requesting Physician: Arun Attending Physician: Hal Dias MD History of Present Illness 53 year old female with history of COPD, Afib on Eliquis, hx of TIAs, HTN, DM II, schizophrenia, ongoing polysubstance abuse (tobacco, ETOH and cocaine) admitted through the ED with ascites - GI asked to evaluate for ascites, UGIB. Pt was seen and evaluated, chart reviewed. Known from previous admission. Con tinues to use ETOH intermittent. Not using lactulose but has been taking other medications as ordered. She notes about 1-2 weeks after discharge she started having recurring abdominal ascites. No pain but pressure. Has had intermittent emesis. This is white/clear foam. Denies hematemesis or coffee ground emesis Bowels alternate. Notes persistent intermittent issues of rectal bleeding - BRB. No weight loss, fever, chills, CP, SOB. On admission, afebrile. WBC: 10, H/H: 8/22, PLT: 95, AST: 24, ALT: 17, alk phos: 255, total bili: 3.4, lipase: 109 w/ evidence of VENECIA, [employer] DEM[employer]STRATION [employer]ENT 3.26. Her HGB was stable overnight Last ETOH use was about 2 weeks ago She is not clear on last other substance use + NSAIDs + AC for history of afib EGD 2020: gastritis Colonoscopy 2020: hemorrhoids non contrast CT shows there are no acute infectious or inflammatory findings in the abdomen or pelvis, acute to subacute appearing bilateral 7th rib fractures. The liver is cirrhotic in morphology with evidence of steatosis. A moderate to large volume of abdominopelvic ascites indicate portal hypertension. Cholelithiasis. Allergies Allergy/AdvReac Type Severity Reaction Status Date / Time haloperidol Allergy Severe TONGUE Verified 08/17/19 20:34 SWELLING insulin lispro Allergy Intermediate HIVES Verified 08/17/19 20:34 phenol Allergy Intermediate HIVES Verified 08/17/19 20:34 citalopram Allergy Mild ITCHING Verified 08/17/19 20:34 sulfamethoxazole Allergy Mild RASH Verified 08/17/19 20:34 trimethoprim Allergy Mild RASH Verified 08/17/19 20:34 Bactrim Allergy Unknown RASH Verified 12/01/17 16:09 Penicillins Allergy Unknown Hives Verified 08/17/19 20:34 pregabalin [From Lyrica] AdvReac Severe SUICIDAL Verified 08/17/19 20:34 topiramate AdvReac Severe SEIZURE Verified 08/17/19 20:34 LIKE ACTIVITY oxycodone AdvReac Mild ITCH Verified 08/17/19 20:34 Margarine Allergy Severe RASH Uncoded 08/17/19 20:34 Home Medications Home Medications Medication Instructions Recorded Confirmed Type valacyclovir 500 mg PO QAM 07/05/18 10/06/19 History lactulose [Constulose] 30 ml PO DAILY PRN 09/29/18 10/06/19 History diltiazem HCl [Cartia XT] 300 mg PO QAM 12/01/18 10/06/19 History Eliquis 2.5 mg PO BID 07/06/19 10/06/19 History potassium chloride 20 meq PO BID 07/06/19 10/06/19 History diphenhydramine HCl [Benadryl] 50 mg PO Q6H PRN 08/17/19 10/06/19 History folic acid 1 mg PO DAILY 08/17/19 10/06/19 History furosemide [Lasix] See Rx Instructions .ROUTE .COMPLEX 08/17/19 10/06/19 History perphenazine 8 mg PO BID 08/17/19 10/06/19 History pantoprazole 40 mg PO QAM 30 Days #30 tab 08/21/19 10/06/19 Rx cetirizine 10 mg PO DAILY PRN 10/06/19 10/06/19 History hydroxyzine HCl 25 mg PO TID PRN 10/06/19 10/06/19 History spironolactone 50 mg PO DAILY 10/06/19 10/06/19 History tiotropium bromide [Spiriva 2 puff INHALATION DAILY 10/06/19 10/06/19 History Respimat] Patient History Medical History Alcohol induced acute pancreatitis (Resolved) Alcohol use disorder (Chronic) Atrial fibrillation (Chronic) paroxysmal Chronic generalized pain disorder (Chronic) COPD (chronic obstructive pulmonary disease) (Chronic) DM type 2 (diabetes mellitus, type 2) (Chronic) EtOH dependence (Inactive) Fatty liver (Chronic) History of opioid abuse (Chronic) HTN (hypertension) (Chronic) Hx of cocaine abuse Neuropathy (Chronic) Non-sustained ventricular tachycardia (Inactive) Obesity (Chronic) Paroxysmal atrial fibrillation Schizoaffective disorder (Chronic) Sciatic nerve disease (Chronic) Sleep apnea (Chronic) Tobacco use disorder (Chronic) Surgical History H/O foot surgery (Resolved) H/O ovarian cystectomy (Resolved) Family History Other Heart disease Kidney disease Social History Preferred Language: Citizen Of [place] Communication Ability: Effective Visual Impairment: No Limitations Broth Setter Required: No Beliefs That Will Affect Care: None marital status: Single Current Living Situation: Family Current Living Situation Comment: lives with brother current occupational status: unemployed and disabled Other Information That Helps Us Care for You: No Feels Safe at Home: Yes Safety Concerns: Feels Safe At This Time Smoking Status: Current every day smoker Tobacco Type: cigarettes ; Cigarettes Per Day: 10 ; Second Hand Exposure: No ; Hx Alcohol Use: Yes Alcohol type: wine and hard liquor Hx Substance Use: No Review of Systems Constitutional: + fatigue; no chills Respiratory: no cough Cardiovascular: no chest pain Gastrointestinal: + abdominal pain and + blood in stools (intermittent BRBPR); no coffee ground emesis, no hematemesis and no melena Physical Exam Constitutional: no acute distress Neck: trachea midline Respiratory: normal respiratory effort Cardiovascular: Rate/Rhythm: regular rate Gastrointestinal (Abdomen): Percussion/Palpation: abdomen soft and + ascites Skin: no rashes, warm and dry Results & Data ([facility]) Vital Signs (Past 12 Hours) Vital Signs Temp Pulse Pulse Pulse Resp BP BP 10/07/19 07:17 36.4 C L 68 18 94/54 L 10/07/19 05:53 36.5 C 86 18 117/78 10/07/19 05:23 36.6 C 88 18 113/78 10/07/19 05:17 36.5 C 83 18 124/73 10/07/19 05:01 36.4 C L 92 H 18 120/73 10/07/19 04:42 36.7 C 90 18 112/66 10/07/19 04:20 36.4 C L 109 H 18 107/69 04/09/20 03:14 36.4 C L 88 18 106/55 L 10/07/19 02:59 36.6 C 87 18 96/54 L 10/07/19 02:41 36.7 C 85 18 96/52 L 10/06/19 23:45 94 H 18 10/06/19 23:18 36.6 C 101 H 20 120/71 10/06/19 23:00 105 H 26 H 117/69 10/06/19 22:50 102 H 17 10/06/19 22:40 100 H 33 H 10/06/19 22:30 101 H 20 98/50 L 10/06/19 22:20 105 H 19 10/06/19 22:10 103 H 18 10/06/19 22:08 103 H 21 106/62 10/06/19 22:01 102 H 18 10/06/19 21:40 106 H 29 H 10/06/19 21:30 108 H 30 H 108/82 10/06/19 21:20 103 H 25 H 10/06/19 21:18 108 H 21 113/87 10/06/19 21:11 105 H 19 113/87 10/06/19 21:00 104 H 23 82/66 L 10/06/19 20:50 107 H 21 10/06/19 20:40 103 H 24 10/06/19 20:32 97 H 24 92/65 L 10/06/19 20:30 105 H 20 92/65 L Pulse Ox 10/07/19 07:17 93 10/07/19 05:53 93 10/07/19 05:23 92 10/07/19 05:17 92 10/07/19 05:01 93 10/07/19 04:42 93 10/07/19 04:20 93 10/07/19 03:14 94 10/07/19 02:59 93 10/07/19 02:41 91 10/06/19 23:45 96 10/06/19 23:18 96 10/06/19 23:00 10/06/19 22:50 10/06/19 22:40 10/06/19 22:30 10/06/19 22:20 10/06/19 22:10 10/06/19 22:08 10/06/19 22:01 10/06/19 21:40 10/06/19 21:30 10/06/19 21:20 10/06/19 21:18 10/06/19 21:11 10/06/19 21:00 10/06/19 20:50 10/06/19 20:40 10/06/19 20:32 97 10/06/19 20:30 Laboratory Results 10/07/19 10/07/19 10/07/19 Range/Units 06:02 03:45 03:45 WBC (4.8-10.8) K/uL RBC (4.2-5.4) M/uL Hgb (12.0-16.0) g/dL Hct (37-47) % MCV (80-100) fL MCH (25-34) pg MCHC (32-36) g/dL RDW Std Deviation (36.4-46.3) fL RDW Coeff of Ally (11.5-14.5) % Plt Count (130-400) K/uL MPV (7.4-10.4) fL Immature Gran % (Auto) % Neut % (Auto) % Lymph % (Auto) % [place] % (Auto) % Eos % (Auto) % Baso % (Auto) % Immature Gran # (Auto) (0.00-0.02) K/uL Neut # (Auto) (1.4-6.5) K/uL Lymph # (Auto) (1.2-3.4) K/uL [place] # (Auto) (0.11-0.59) K/uL Eos # (Auto) (0-0.5) K/uL Baso # (Auto) (0-0.2) K/uL Platelet Estimate (Normal) Target Cells PT (9.0-12.0) Seconds INR (0.9-1.1) APTT (21.0-31.0) Seconds PTT Ratio Sodium (136-145) mmol/L Potassium (3.5-5.1) mmol/L Chloride (98-107) mmol/L Carbon Dioxide (21-32) mmol/L Anion Gap (3-11) BUN (7-18) mg/dl Creatinine (0.6-1.2) mg/dl Est Cr Clr Drug Dosing ml/min Est GFR ( Amer) Est GFR (Non-Af Amer) BUN/Creatinine Ratio (10-20) Glucose (70-99) mg/dl POC Glucose 178 H (70-99) mg/dl Osmolality (280-300) mOsm/kg Lactate (0.4-2.0) mmol/L Calcium (8.5-10.1) mg/dl Magnesium (1.8-2.4) mg/dl Total Bilirubin (0.2-1) mg/dl AST (15-37) U/L ALT (12-78) U/L Alkaline Phosphatase (45-117) U/L Total Protein (6.4-8.2) gm/dl Albumin (3.4-5.0) gm/dl Globulin (2.5-4.0) gm/dl Albumin/Globulin Ratio (0.9-2) Lipase (73-393) U/L TSH (0.300-4.500) uIu/ml Urine Color Urine Appearance (Clear) Urine pH (4.5-7.5) Ur Specific [place] (1.000-1.030) Urine Protein (Negative) Urine Glucose (UA) (Negative) Urine Ketones (Negative) Urine Blood (Negative) Urine Nitrite (Negative) Urine Bilirubin (Negative) Urine Urobilinogen (Negative) Ur Leukocyte Esterase (Negative) Urine WBC (Auto) (0-5) /hpf Urine RBC (Auto) (0-4) /hpf U Hyaline Cast (Auto) (0-5) /lpf U Epithel Cells (Auto) (0-5) /lpf Urine Bacteria (Auto) (Negative) Amorphous Sediment (None Prsent) Urine Yeast Urine Opiates Screen Pos H (Neg) U Codeine Confrm GC/MS Pending Ur Morphine (GC/MS) Pending Ur Hydrocodone (GC/MS) Pending Ur Norhydrocodone Pending Ur Noroxycodone Pending Urine Oxycodone (GC/MS) Pending U Oxymorphone GC/MS Pending Ur Methadone, Qual Neg (Neg) Ur Hydromorphone (GC/MS) Pending Urine Barbiturates Neg (Neg) Ur Phencyclidine (PCP) Neg (Neg) U Amphetamin/Meth Scrn Neg (Neg) MDMA (Ecstasy) Screen Neg (Neg) U Benzodiazepines Scrn Neg (Neg) Ur Cocaine Metabolite Neg (Neg) U Marijuana (THC) Screen Neg (Neg) Drug Screen Comment Pending Blood Type Antibody Screen Crossmatch 10/07/19 10/07/19 10/07/19 Range/Units 03:45 00:18 00:18 WBC (4.8-10.8) K/uL RBC (4.2-5.4) M/uL Hgb (12.0-16.0) g/dL Hct (37-47) % MCV (80-100) fL MCH (25-34) pg MCHC (32-36) g/dL RDW Std Deviation (36.4-46.3) fL RDW Coeff of Ally (11.5-14.5) % Plt Count (130-400) K/uL MPV (7.4-10.4) fL Immature Gran % (Auto) % Neut % (Auto) % Lymph % (Auto) % [place] % (Auto) % Eos % (Auto) % Baso % (Auto) % Immature Gran # (Auto) (0.00-0.02) K/uL Neut # (Auto) (1.4-6.5) K/uL Lymph # (Auto) (1.2-3.4) K/uL [place] # (Auto) (0.11-0.59) K/uL Eos # (Auto) (0-0.5) K/uL Baso # (Auto) (0-0.2) K/uL Platelet Estimate (Normal) Target Cells PT (9.0-12.0) Seconds INR (0.9-1.1) APTT (21.0-31.0) Seconds PTT Ratio Sodium 126 L (136-145) mmol/L Potassium 3.4 L (3.5-5.1) mmol/L Chloride 93 L (98-107) mmol/L Carbon Dioxide 24 (21-32) mmol/L Anion Gap 9.0 (3-11) BUN 17 (7-18) mg/dl Creatinine 3.26 H (0.6-1.2) mg/dl Est Cr Clr Drug Dosing 22.6 ml/min Est GFR ( Amer) 17.6 Est GFR (Non-Af Amer) 15.2 BUN/Creatinine Ratio 5.3 L (10-20) Glucose 126 H (70-99) mg/dl POC Glucose (70-99) mg/dl Osmolality (280-300) mOsm/kg Lactate 2.6 H* (0.4-2.0) mmol/L Calcium 8.1 L (8.5-10.1) mg/dl Magnesium (1.8-2.4) mg/dl Total Bilirubin (0.2-1) mg/dl AST (15-37) U/L ALT (12-78) U/L Alkaline Phosphatase (45-117) U/L Total Protein (6.4-8.2) gm/dl Albumin (3.4-5.0) gm/dl Globulin (2.5-4.0) gm/dl Albumin/Globulin Ratio (0.9-2) Lipase (73-393) U/L TSH 2.270 (0.300-4.500) uIu/ml Urine Color [place] Urine Appearance Turbid A (Clear) Urine pH 5.0 (4.5-7.5) Ur Specific [place] 1.026 (1.000-1.030) Urine Protein 1+ H (Negative) Urine Glucose (UA) Negative (Negative) Urine Ketones Negative (Negative) Urine Blood Negative (Negative) Urine Nitrite Positive A (Negative) Urine Bilirubin 2+ H (Negative) Urine Urobilinogen Negative (Negative) Ur Leukocyte Esterase 1+ H (Negative) Urine WBC (Auto) 1-5 (0-5) /hpf Urine RBC (Auto) 0-4 (0-4) /hpf U Hyaline Cast (Auto) >30 H (0-5) /lpf U Epithel Cells (Auto) >30 H (0-5) /lpf Urine Bacteria (Auto) 1+ H (Negative) Amorphous Sediment Present A (None Prsent) Urine Yeast Not Reportable Urine Opiates Screen (Neg) U Codeine Confrm GC/MS Ur Morphine (GC/MS) Ur Hydrocodone (GC/MS) Ur Norhydrocodone Ur Noroxycodone Urine Oxycodone (GC/MS) U Oxymorphone GC/MS Ur Methadone, Qual (Neg) Ur Hydromorphone (GC/MS) Urine Barbiturates (Neg) Ur Phencyclidine (PCP) (Neg) U Amphetamin/Meth Scrn (Neg) MDMA (Ecstasy) Screen (Neg) U Benzodiazepines Scrn (Neg) Ur Cocaine Metabolite (Neg) U Marijuana (THC) Screen (Neg) Drug Screen Comment Blood Type Antibody Screen Crossmatch 10/07/19 10/06/19 10/06/19 Range/Units 00:18 21:41 21:41 WBC (4.8-10.8) K/uL RBC (4.2-5.4) M/uL Hgb 7.5 L (12.0-16.0) g/dL Hct 21.3 L (37-47) % MCV (80-100) fL MCH (25-34) pg MCHC (32-36) g/dL RDW Std Deviation (36.4-46.3) fL RDW Coeff of Ally (11.5-14.5) % Plt Count (130-400) K/uL MPV (7.4-10.4) fL Immature Gran % (Auto) % Neut % (Auto) % Lymph % (Auto) % [place] % (Auto) % Eos % (Auto) % Baso % (Auto) % Immature Gran # (Auto) (0.00-0.02) K/uL Neut # (Auto) (1.4-6.5) K/uL Lymph # (Auto) (1.2-3.4) K/uL [place] # (Auto) (0.11-0.59) K/uL Eos # (Auto) (0-0.5) K/uL Baso # (Auto) (0-0.2) K/uL Platelet Estimate (Normal) Target Cells PT (9.0-12.0) Seconds INR (0.9-1.1) APTT (21.0-31.0) Seconds PTT Ratio Sodium (136-145) mmol/L Potassium (3.5-5.1) mmol/L Chloride (98-107) mmol/L Carbon Dioxide (21-32) mmol/L Anion Gap (3-11) BUN (7-18) mg/dl Creatinine (0.6-1.2) mg/dl Est Cr Clr Drug Dosing ml/min Est GFR ( Amer) Est GFR (Non-Af Amer) BUN/Creatinine Ratio (10-20) Glucose (70-99) mg/dl POC Glucose (70-99) mg/dl Osmolality (280-300) mOsm/kg Lactate 2.3 H* (0.4-2.0) mmol/L Calcium (8.5-10.1) mg/dl Magnesium (1.8-2.4) mg/dl Total Bilirubin (0.2-1) mg/dl AST (15-37) U/L ALT (12-78) U/L Alkaline Phosphatase (45-117) U/L Total Protein (6.4-8.2) gm/dl Albumin (3.4-5.0) gm/dl Globulin (2.5-4.0) gm/dl Albumin/Globulin Ratio (0.9-2) Lipase (73-393) U/L TSH (0.300-4.500) uIu/ml Urine Color Urine Appearance (Clear) Urine pH (4.5-7.5) Ur Specific [place] (1.000-1.030) Urine Protein (Negative) Urine Glucose (UA) (Negative) Urine Ketones (Negative) Urine Blood (Negative) Urine Nitrite (Negative) Urine Bilirubin (Negative) Urine Urobilinogen (Negative) Ur Leukocyte Esterase (Negative) Urine WBC (Auto) (0-5) /hpf Urine RBC (Auto) (0-4) /hpf U Hyaline Cast (Auto) (0-5) /lpf U Epithel Cells (Auto) (0-5) /lpf Urine Bacteria (Auto) (Negative) Amorphous Sediment (None Prsent) Urine Yeast Urine Opiates Screen (Neg) U Codeine Confrm GC/MS Ur Morphine (GC/MS) Ur Hydrocodone (GC/MS) Ur Norhydrocodone Ur Noroxycodone Urine Oxycodone (GC/MS) U Oxymorphone GC/MS Ur Methadone, Qual (Neg) Ur Hydromorphone (GC/MS) Urine Barbiturates (Neg) Ur Phencyclidine (PCP) (Neg) U Amphetamin/Meth Scrn (Neg) MDMA (Ecstasy) Screen (Neg) U Benzodiazepines Scrn (Neg) Ur Cocaine Metabolite (Neg) U Marijuana (THC) Screen (Neg) Drug Screen Comment Blood Type O Positive Antibody Screen NEGATIVE Crossmatch See Detail 10/06/19 10/06/19 10/06/19 Range/Units 19:41 19:41 19:40 WBC (4.8-10.8) K/uL RBC (4.2-5.4) M/uL Hgb (12.0-16.0) g/dL Hct (37-47) % MCV (80-100) fL MCH (25-34) pg MCHC (32-36) g/dL RDW Std Deviation (36.4-46.3) fL RDW Coeff of Ally (11.5-14.5) % Plt Count (130-400) K/uL MPV (7.4-10.4) fL Immature Gran % (Auto) % Neut % (Auto) % Lymph % (Auto) % [place] % (Auto) % Eos % (Auto) % Baso % (Auto) % Immature Gran # (Auto) (0.00-0.02) K/uL Neut # (Auto) (1.4-6.5) K/uL Lymph # (Auto) (1.2-3.4) K/uL [place] # (Auto) (0.11-0.59) K/uL Eos # (Auto) (0-0.5) K/uL Baso # (Auto) (0-0.2) K/uL Platelet Estimate (Normal) Target Cells PT 24.0 H (9.0-12.0) Seconds INR 2.4 H (0.9-1.1) APTT 47.6 H* (21.0-31.0) Seconds PTT Ratio 1.7 Sodium 125 L (136-145) mmol/L Potassium 3.4 L (3.5-5.1) mmol/L Chloride 93 L (98-107) mmol/L Carbon Dioxide 24 (21-32) mmol/L Anion Gap 8.0 (3-11) BUN 17 (7-18) mg/dl Creatinine 3.05 H (0.6-1.2) mg/dl Est Cr Clr Drug Dosing 22.7 ml/min Est GFR ( Amer) 19.1 Est GFR (Non-Af Amer) 16.5 BUN/Creatinine Ratio 5.6 L (10-20) Glucose 112 H (70-99) mg/dl POC Glucose (70-99) mg/dl Osmolality 271 L (280-300) mOsm/kg Lactate (0.4-2.0) mmol/L Calcium 8.5 (8.5-10.1) mg/dl Magnesium 1.1 L (1.8-2.4) mg/dl Total Bilirubin 3.4 H (0.2-1) mg/dl AST 24 (15-37) U/L ALT 17 (12-78) U/L Alkaline Phosphatase 255 H (45-117) U/L Total Protein 7.9 (6.4-8.2) gm/dl Albumin 1.7 L (3.4-5.0) gm/dl Globulin 6.2 H (2.5-4.0) gm/dl Albumin/Globulin Ratio 0.3 L (0.9-2) Lipase 109 (73-393) U/L TSH (0.300-4.500) uIu/ml Urine Color Urine Appearance (Clear) Urine pH (4.5-7.5) Ur Specific [place] (1.000-1.030) Urine Protein (Negative) Urine Glucose (UA) (Negative) Urine Ketones (Negative) Urine Blood (Negative) Urine Nitrite (Negative) Urine Bilirubin (Negative) Urine Urobilinogen (Negative) Ur Leukocyte Esterase (Negative) Urine WBC (Auto) (0-5) /hpf Urine RBC (Auto) (0-4) /hpf U Hyaline Cast (Auto) (0-5) /lpf U Epithel Cells (Auto) (0-5) /lpf Urine Bacteria (Auto) (Negative) Amorphous Sediment (None Prsent) Urine Yeast Urine Opiates Screen (Neg) U Codeine Confrm GC/MS Ur Morphine (GC/MS) Ur Hydrocodone (GC/MS) Ur Norhydrocodone Ur Noroxycodone Urine Oxycodone (GC/MS) U Oxymorphone GC/MS Ur Methadone, Qual (Neg) Ur Hydromorphone (GC/MS) Urine Barbiturates (Neg) Ur Phencyclidine (PCP) (Neg) U Amphetamin/Meth Scrn (Neg) MDMA (Ecstasy) Screen (Neg) U Benzodiazepines Scrn (Neg) Ur Cocaine Metabolite (Neg) U Marijuana (THC) Screen (Neg) Drug Screen Comment Blood Type Antibody Screen Crossmatch 10/06/19 Range/Units 19:40 WBC 10.00 (4.8-10.8) K/uL RBC 2.31 L (4.2-5.4) M/uL Hgb 8.0 L (12.0-16.0) g/dL Hct 22.4 L (37-47) % MCV 97.0 (80-100) fL MCH 34.6 H (25-34) pg MCHC 35.7 (32-36) g/dL RDW Std Deviation 54.2 H (36.4-46.3) fL RDW Coeff of Ally 15.6 H (11.5-14.5) % Plt Count 95 L (130-400) K/uL MPV 10.5 H (7.4-10.4) fL Immature Gran % (Auto) 0.4 % Neut % (Auto) 84.7 % Lymph % (Auto) 6.1 % [place] % (Auto) 8.4 % Eos % (Auto) 0.3 % Baso % (Auto) 0.1 % Immature Gran # (Auto) 0.04 H (0.00-0.02) K/uL Neut # (Auto) 8.47 H (1.4-6.5) K/uL Lymph # (Auto) 0.61 L (1.2-3.4) K/uL [place] # (Auto) 0.84 H (0.11-0.59) K/uL Eos # (Auto) 0.03 (0-0.5) K/uL Baso # (Auto) 0.01 (0-0.2) K/uL Platelet Estimate Decreased L (Normal) Target Cells 1+ PT (9.0-12.0) Seconds INR (0.9-1.1) APTT (21.0-31.0) Seconds PTT Ratio Sodium (136-145) mmol/L Potassium (3.5-5.1) mmol/L Chloride (98-107) mmol/L Carbon Dioxide (21-32) mmol/L Anion Gap (3-11) BUN (7-18) mg/dl Creatinine (0.6-1.2) mg/dl Est Cr Clr Drug Dosing ml/min Est GFR ( Amer) Est GFR (Non-Af Amer) BUN/Creatinine Ratio (10-20) Glucose (70-99) mg/dl POC Glucose (70-99) mg/dl Osmolality (280-300) mOsm/kg Lactate (0.4-2.0) mmol/L Calcium (8.5-10.1) mg/dl Magnesium (1.8-2.4) mg/dl Total Bilirubin (0.2-1) mg/dl AST (15-37) U/L ALT (12-78) U/L Alkaline Phosphatase (45-117) U/L Total Protein (6.4-8.2) gm/dl Albumin (3.4-5.0) gm/dl Globulin (2.5-4.0) gm/dl Albumin/Globulin Ratio (0.9-2) Lipase (73-393) U/L TSH (0.300-4.500) uIu/ml Urine Color Urine Appearance (Clear) Urine pH (4.5-7.5) Ur Specific [place] (1.000-1.030) Urine Protein (Negative) Urine Glucose (UA) (Negative) Urine Ketones (Negative) Urine Blood (Negative) Urine Nitrite (Negative) Urine Bilirubin (Negative) Urine Urobilinogen (Negative) Ur Leukocyte Esterase (Negative) Urine WBC (Auto) (0-5) /hpf Urine RBC (Auto) (0-4) /hpf U Hyaline Cast (Auto) (0-5) /lpf U Epithel Cells (Auto) (0-5) /lpf Urine Bacteria (Auto) (Negative) Amorphous Sediment (None Prsent) Urine Yeast Urine Opiates Screen (Neg) U Codeine Confrm GC/MS Ur Morphine (GC/MS) Ur Hydrocodone (GC/MS) Ur Norhydrocodone Ur Noroxycodone Urine Oxycodone (GC/MS) U Oxymorphone GC/MS Ur Methadone, Qual (Neg) Ur Hydromorphone (GC/MS) Urine Barbiturates (Neg) Ur Phencyclidine (PCP) (Neg) U Amphetamin/Meth Scrn (Neg) MDMA (Ecstasy) Screen (Neg) U Benzodiazepines Scrn (Neg) Ur Cocaine Metabolite (Neg) U Marijuana (THC) Screen (Neg) Drug Screen Comment Blood Type Antibody Screen Crossmatch (1) Ascites Ascites type: other type Qualified Code(s): R18.8 - Other ascites
[2019-10-07] MEDS ORDERED: PANTOprazole 40 MG TAB PO SCH (09:00)
[2019-10-07 09:50] LABS: Hematocrit (blood only) 25.2 % (37-47); Hemoglobin 8.9 g/dL (12.0-16.0); Mean Corpuscular Hgb Conc 35.3 g/dL (32-36); Mean Corpuscular Volume 96.2 fL (80-100); RDW Coefficient of Variation 15.4 % (11.5-14.5); RDW Standard Deviation 53.5 fL (36.4-46.3); Red Blood Count 2.62 M/uL (4.2-5.4); White Blood Count 9.97 K/uL (4.8-10.8)
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
[2019-10-07 10:08] LABS: INR 1.9 (0.9-1.1)
[2019-10-07 10:14] LABS: Albumin Level 2.3 gm/dl (3.4-5.0); BUN Creatinine Ratio 5.4 (10-20); Calcium 8.6 mg/dl (8.5-10.1); Creatinine Clr Calc Pharmacy 22.8 ml/min; Est GFR (African American) 17.9; Est GFR (Non-African American) 15.4; Magnesium 2.1 mg/dl (1.8-2.4); Potassium 3.5 mmol/L (3.5-5.1)
[2019-10-07 10:24] LABS: Basophils # (auto) 0.01 K/uL (0-0.2); Basophils % (auto) 0.1 %; Eosinophils # (auto) 0.08 K/uL (0-0.5); Eosinophils % (auto) 0.8 %; Howell-Jolly Bodies 1+; Immature Granulocytes # (auto) 0.04 K/uL (0.00-0.02); Immature Granulocytes % (auto) 0.4 %; Mean Platelet Volume 10.6 fL (7.4-10.4); Monocytes # (auto) 0.72 K/uL (0.11-0.59); Monocytes % (auto) 7.2 %; Neutrophils # (auto) 8.42 K/uL (1.4-6.5); Neutrophils % (auto) 84.5 %; Platelet Count 99 K/uL (130-400); Platelet Estimate Decreased (Normal); Target Cells 1+
[2019-10-07 10:27] LABS: Albumin Globulin Ratio 0.4 (0.9-2); Bilirubin,Total 4.1 mg/dl (0.2-1); Globulin 5.8 gm/dl (2.5-4.0); Total Protein 8.1 gm/dl (6.4-8.2)
--- NOTE | 2019-10-07 10:31 | Hospitalist Progress Note ---
Date of Service October 07, 2019 Assessment & Plan (1) Abdominal pain: (2) Ascites: Pt is 54 y/o F with PMH schizoaffective disorder, anxiety, DM II, paroxysmal atrial fibrillation, HTN, COPD, h/o alcohol and drug use, cirrhosis presented to ER with complaint of abdominal pain, increased abdominal distention for several weeks. Patient reports not taking lactulose as directed secondary to causing diarrhea. Reports taking diuretics. In ER patient afebrile, PA: 100, R: 24 down to 19, BP: 102/66, 90-97% on room air. WBC: 10, H/H: 02/18, PLT: 95, AST: 24, ALT: 17, alk phos: 255, total bili: 3.4, lipase: 109 -In ER given Zofran, Dilaudid Recurrent ascites possible SBP, probable alcoholic cirrhosis, possible sepsis GI consult RE recurrent U GIB/ascites Diagnostic and therapeutic paracentesis - pt refused, will re-attempt tmrw Received Vitamin K, FFP to reverse coagulopathy prior to paracentesis Cultures, follow lactic acid - downtrended IV albumin for possible SBP (also for poss. hepatorenal syndrome) Ertapenem to cover possible SBP and aspiration pneumonia. Possible aspiration pneumonia Pt started on ertapenem (3) Anemia: H/H: 02/18 (Hgb 8.5 on 08/20) UGIB, gastritis on EGD from recent confinement, hx Eliquis intake for PAF hx, hemoglobin stable at baseline Coagulopathy secondary to liver disease IV PPI Stop Eliquis, anticoagulation may need to be stopped permanently given recurrent/persistent GI bleed Serial H&H, transfuse PRBC if hemoglobin less than 8 and or for symptomatic anemia (hx TIAs as per records) GI consult RE recurrent U GIB/ascites (4) Acute renal failure (ARF): BUN: 17, Cr: 3.0 (history VENECIA in 07/2019 and Cr down trended to1.2 on 08/20/2019, prior baseline~0.8) In the setting of liver cirrhosis/ ascites Nephrology consulted Poss. hepatorenal syndrome Started pt on octreotide, midodrine, IV albumin therapy (5) Hyponatremia: Na: 125, Was 133 on 08/20/2019 Hypervolemic hyponatremia poss. / hepatorenal syndrome Nephrology consulted- started pt on midodrine, octreotide, IV albumin therapy Likely try diuresis tmrw (6) Hypokalemia: K: 3.4 on admission likely 2/2 emesis , poor p.o. intake, diuretics replete and monitor (7) Hypomagnesemia: Magnesium: 1.1 on admission - replete and monitor (8) DM type 2 (diabetes mellitus, type 2): HbA1c: 4.9% in 07/2019 ISS BG goal [id number] (9) Paroxysmal atrial fibrillation: On Eliquis (10) COPD (chronic obstructive pulmonary disease): Chronic respiratory failure secondary to COPD on home O2, pulmonary status at baseline Current wheezing. Patient reports chronic wheezing Duonebs prn (11) HTN (hypertension): On diltiazem at home HTN, BP on the lower side hx TIAs as per records (12) Schizoaffective disorder: On perphenazine at home but has not taken medication in past 1-2 weeks Psychiatry consulted, appreciate their input Evaluated pt this AM, psych Liaison also provided company to pt Later today pt started to refuse medications, in addition to refusing procedure Asking about going home Psychiatry contacted and pt's case discussed. History of ongoing cocaine/alcohol/tobacco abuse DT precautions Nicotine patch PRN PCP follow up after d/c: Follows with Dr. Rosario for routine care. Admission and Anticipated Discharge Date Admission Date: October 06, 2019 Subjective Pt seen in the room with Sharon (psychiatry RN). Pt prefers female providers. Pt is sitting up in bed this AM, says her abdomen got swollen as well as her legs and hips. Denies any fever, chills,chest pain, shortness of breath, nausea or vomiting. Says her abdomen got bigger and is uncomfortable. s/p transfusion of 1 unit of pRBC Plan for paracentesis, declined earlier this AM. Started on octreotide and midodrine by nephrology, IV albumin Reportedly pt went to radiology w/ Sharon, for paracentesis, but once she got there she changed her mind and refused the procedure. She kept saying there may be enemies in the hospital and that she " wouldn't get on that table". She then also refused medications prescribed to her by nephrology and GI, received multiple calls from nursing staff. On my subsequent multiple evaluations pt was asking about going home and wanted me to leave her alone. Reached out to psychiatry - discussed with Dr. Gutierrez, Ms. Melchor CANDLE WRAPPER and psychiatry RNs. Liaison aware. Review of Systems Review of Systems: All systems reviewed & are unremarkable except as noted in HPI & below and Unobtainable due to cognitive status Pt does not answer all the questions appropriately. Answers are often tangential and often do not make sense. Constitutional: no fever and no body aches Respiratory: no cough and no dyspnea Cardiovascular: + edema (LE and abdomen); no chest pain and no palpitations Gastrointestinal: + abdominal pain; no nausea, no vomiting and no hematemesis Physical Exam Physical Exam: General: middle aged female sitting up in bed, in no acute distress, obese Head: normocephalic, atraumatic Eyes: PERRL, EOM's intact, conjunctiva non-injected, +icterus ENT: normal inspection external ears, nose, moist mucous membranes Neck: supple, trachea midline, non-tender Lungs: no respiratory distress, + diffuse wheezing, no rhonchi/rales CV: RRR, no murmur, no JVD, 1-2+ pretibial edema Abd: normal BS, distended, edematous, +mild tenderness to palpation at suprapubic region : Narvaez catheter placed Ext: no cyanosis, no calf tenderness, 1+ LE edema, moves extremities spontaneously Neuro/Psych: alert, speech fluent but tangential,reports seeing ppl in the room who are not there, concerned about ppl in the hallway during my interview, no facial asymmetry, no focal deficits noted, moves extremities spontaneously Skin: warm, dry; +excoriations to bilateral extremities Results & Data Results & Data ([facility]) Vital Signs (Past 12 Hours) Vital Signs Temp Pulse Pulse Pulse Resp BP BP 10/07/19 07:17 36.4 C L 68 18 94/54 L 10/07/19 05:53 36.5 C 86 18 117/78 10/07/19 05:23 36.6 C 88 18 113/78 10/07/19 05:17 36.5 C 83 18 124/73 10/07/19 05:01 36.4 C L 92 H 18 120/73 10/07/19 04:42 36.7 C 90 18 112/66 10/07/19 04:20 36.4 C L 109 H 18 107/69 10/07/19 03:14 36.4 C L 88 18 106/55 L 10/07/19 02:59 36.6 C 87 18 96/54 L 10/07/19 02:41 36.7 C 85 18 96/52 L 10/06/19 23:45 94 H 18 10/06/19 23:18 36.6 C 101 H 20 120/71 10/06/19 23:00 105 H 26 H 117/69 10/06/19 22:50 102 H 17 10/06/19 22:40 100 H 33 H 10/06/19 22:30 101 H 20 98/50 L Pulse Ox 10/07/19 07:17 93 10/07/19 05:53 93 10/07/19 05:23 92 10/07/19 05:17 92 10/07/19 05:01 93 10/07/19 04:42 93 10/07/19 04:20 93 10/07/19 03:14 94 10/07/19 02:59 93 10/07/19 02:41 91 10/06/19 23:45 96 10/06/19 23:18 96 10/06/19 23:00 10/06/19 22:50 10/06/19 22:40 10/06/19 22:30 Laboratory Results 10/07/19 10/07/19 10/07/19 Range/Units 10:14 09:41 09:36 WBC (4.8-10.8) K/uL RBC (4.2-5.4) M/uL Hgb Pending (12.0-16.0) g/dL Hct Pending (37-47) % MCV (80-100) fL MCH (25-34) pg MCHC (32-36) g/dL RDW Std Deviation (36.4-46.3) fL RDW Coeff of Ally (11.5-14.5) % Plt Count (130-400) K/uL MPV (7.4-10.4) fL Immature Gran % (Auto) % Neut % (Auto) % Lymph % (Auto) % [place] % (Auto) % Eos % (Auto) % Baso % (Auto) % Immature Gran # (Auto) (0.00-0.02) K/uL Neut # (Auto) (1.4-6.5) K/uL Lymph # (Auto) (1.2-3.4) K/uL [place] # (Auto) (0.11-0.59) K/uL Eos # (Auto) (0-0.5) K/uL Baso # (Auto) (0-0.2) K/uL Platelet Estimate (Normal) Target Cells [place] Bodies PT (9.0-12.0) Seconds INR (0.9-1.1) APTT (21.0-31.0) Seconds PTT Ratio Sodium 124 L (136-145) mmol/L Potassium 3.5 (3.5-5.1) mmol/L Chloride 91 L (98-107) mmol/L Carbon Dioxide 24 (21-32) mmol/L Anion Gap 9.0 (3-11) BUN 18 (7-18) mg/dl Creatinine 3.22 H (0.6-1.2) mg/dl Est Cr Clr Drug Dosing 22.8 ml/min Est GFR ( Amer) 17.9 Est GFR (Non-Af Amer) 15.4 BUN/Creatinine Ratio 5.4 L (10-20) Glucose 134 H (70-99) mg/dl POC Glucose (70-99) mg/dl Osmolality (280-300) mOsm/kg Lactate 1.8 (0.4-2.0) mmol/L Calcium 8.6 (8.5-10.1) mg/dl Magnesium 2.1 (1.8-2.4) mg/dl Total Bilirubin Pending (0.2-1) mg/dl AST 23 (15-37) U/L ALT 20 (12-78) U/L Alkaline Phosphatase Pending (45-117) U/L Total Protein Pending (6.4-8.2) gm/dl Albumin 2.3 L (3.4-5.0) gm/dl Globulin Pending (2.5-4.0) gm/dl Albumin/Globulin Ratio Pending (0.9-2) Lipase (73-393) U/L TSH (0.300-4.500) uIu/ml Urine Color Urine Appearance (Clear) Urine pH (4.5-7.5) Ur Specific [place] (1.000-1.030) Urine Protein (Negative) Urine Glucose (UA) (Negative) Urine Ketones (Negative) Urine Blood (Negative) Urine Nitrite (Negative) Urine Bilirubin (Negative) Urine Urobilinogen (Negative) Ur Leukocyte Esterase (Negative) Urine WBC (Auto) (0-5) /hpf Urine RBC (Auto) (0-4) /hpf U Hyaline Cast (Auto) (0-5) /lpf U Epithel Cells (Auto) (0-5) /lpf Urine Bacteria (Auto) (Negative) Amorphous Sediment (None Prsent) Urine Yeast Urine Opiates Screen (Neg) U Codeine Confrm GC/MS Ur Morphine (GC/MS) Ur Hydrocodone (GC/MS) Ur Norhydrocodone Ur Noroxycodone Urine Oxycodone (GC/MS) U Oxymorphone GC/MS Ur Methadone, Qual (Neg) Ur Hydromorphone (GC/MS) Urine Barbiturates (Neg) Ur Phencyclidine (PCP) (Neg) U Amphetamin/Meth Scrn (Neg) MDMA (Ecstasy) Screen (Neg) U Benzodiazepines Scrn (Neg) Ur Cocaine Metabolite (Neg) U Marijuana (THC) Screen (Neg) Drug Screen Comment Blood Type Antibody Screen Crossmatch 10/07/19 10/07/19 10/07/19 Range/Units 09:36 09:36 06:02 WBC 9.97 (4.8-10.8) K/uL RBC 2.62 L (4.2-5.4) M/uL Hgb 8.9 L (12.0-16.0) g/dL Hct 25.2 L (37-47) % MCV 96.2 (80-100) fL MCH 34.0 (25-34) pg MCHC 35.3 (32-36) g/dL RDW Std Deviation 53.5 H (36.4-46.3) fL RDW Coeff of Ally 15.4 H (11.5-14.5) % Plt Count 99 L (130-400) K/uL MPV 10.6 H (7.4-10.4) fL Immature Gran % (Auto) 0.4 % Neut % (Auto) 84.5 % Lymph % (Auto) 7.0 % [place] % (Auto) 7.2 % Eos % (Auto) 0.8 % Baso % (Auto) 0.1 % Immature Gran # (Auto) 0.04 H (0.00-0.02) K/uL Neut # (Auto) 8.42 H (1.4-6.5) K/uL Lymph # (Auto) 0.70 L (1.2-3.4) K/uL [place] # (Auto) 0.72 H (0.11-0.59) K/uL Eos # (Auto) 0.08 (0-0.5) K/uL Baso # (Auto) 0.01 (0-0.2) K/uL Platelet Estimate Decreased L (Normal) Target Cells 1+ [place] Bodies 1+ PT 19.0 H (9.0-12.0) Seconds INR 1.9 H (0.9-1.1) APTT (21.0-31.0) Seconds PTT Ratio Sodium (136-145) mmol/L Potassium (3.5-5.1) mmol/L Chloride (98-107) mmol/L Carbon Dioxide (21-32) mmol/L Anion Gap (3-11) BUN (7-18) mg/dl Creatinine (0.6-1.2) mg/dl Est Cr Clr Drug Dosing ml/min Est GFR ( Amer) Est GFR (Non-Af Amer) BUN/Creatinine Ratio (10-20) Glucose (70-99) mg/dl POC Glucose 178 H (70-99) mg/dl Osmolality (280-300) mOsm/kg Lactate (0.4-2.0) mmol/L Calcium (8.5-10.1) mg/dl Magnesium (1.8-2.4) mg/dl Total Bilirubin (0.2-1) mg/dl AST (15-37) U/L ALT (12-78) U/L Alkaline Phosphatase (45-117) U/L Total Protein (6.4-8.2) gm/dl Albumin (3.4-5.0) gm/dl Globulin (2.5-4.0) gm/dl Albumin/Globulin Ratio (0.9-2) Lipase (73-393) U/L TSH (0.300-4.500) uIu/ml Urine Color Urine Appearance (Clear) Urine pH (4.5-7.5) Ur Specific [place] (1.000-1.030) Urine Protein (Negative) Urine Glucose (UA) (Negative) Urine Ketones (Negative) Urine Blood (Negative) Urine Nitrite (Negative) Urine Bilirubin (Negative) Urine Urobilinogen (Negative) Ur Leukocyte Esterase (Negative) Urine WBC (Auto) (0-5) /hpf Urine RBC (Auto) (0-4) /hpf U Hyaline Cast (Auto) (0-5) /lpf U Epithel Cells (Auto) (0-5) /lpf Urine Bacteria (Auto) (Negative) Amorphous Sediment (None Prsent) Urine Yeast Urine Opiates Screen (Neg) U Codeine Confrm GC/MS Ur Morphine (GC/MS) Ur Hydrocodone (GC/MS) Ur Norhydrocodone Ur Noroxycodone Urine Oxycodone (GC/MS) U Oxymorphone GC/MS Ur Methadone, Qual (Neg) Ur Hydromorphone (GC/MS) Urine Barbiturates (Neg) Ur Phencyclidine (PCP) (Neg) U Amphetamin/Meth Scrn (Neg) MDMA (Ecstasy) Screen (Neg) U Benzodiazepines Scrn (Neg) Ur Cocaine Metabolite (Neg) U Marijuana (THC) Screen (Neg) Drug Screen Comment Blood Type Antibody Screen Crossmatch 10/07/19 10/07/19 10/07/19 Range/Units 03:45 03:45 03:45 WBC (4.8-10.8) K/uL RBC (4.2-5.4) M/uL Hgb (12.0-16.0) g/dL Hct (37-47) % MCV (80-100) fL MCH (25-34) pg MCHC (32-36) g/dL RDW Std Deviation (36.4-46.3) fL RDW Coeff of Ally (11.5-14.5) % Plt Count (130-400) K/uL MPV (7.4-10.4) fL Immature Gran % (Auto) % Neut % (Auto) % Lymph % (Auto) % [place] % (Auto) % Eos % (Auto) % Baso % (Auto) % Immature Gran # (Auto) (0.00-0.02) K/uL Neut # (Auto) (1.4-6.5) K/uL Lymph # (Auto) (1.2-3.4) K/uL [place] # (Auto) (0.11-0.59) K/uL Eos # (Auto) (0-0.5) K/uL Baso # (Auto) (0-0.2) K/uL Platelet Estimate (Normal) Target Cells Gar[place] Bodies PT (9.0-12.0) Seconds INR (0.9-1.1) APTT (21.0-31.0) Seconds PTT Ratio Sodium (136-145) mmol/L Potassium (3.5-5.1) mmol/L Chloride (98-107) mmol/L Carbon Dioxide (21-32) mmol/L Anion Gap (3-11) BUN (7-18) mg/dl Creatinine (0.6-1.2) mg/dl Est Cr Clr Drug Dosing ml/min Est GFR ( Amer) Est GFR (Non-Af Amer) BUN/Creatinine Ratio (10-20) Glucose (70-99) mg/dl POC Glucose (70-99) mg/dl Osmolality (280-300) mOsm/kg Lactate (0.4-2.0) mmol/L Calcium (8.5-10.1) mg/dl Magnesium (1.8-2.4) mg/dl Total Bilirubin (0.2-1) mg/dl AST (15-37) U/L ALT (12-78) U/L Alkaline Phosphatase (45-117) U/L Total Protein (6.4-8.2) gm/dl Albumin (3.4-5.0) gm/dl Globulin (2.5-4.0) gm/dl Albumin/Globulin Ratio (0.9-2) Lipase (73-393) U/L TSH (0.300-4.500) uIu/ml Urine Color [place] Urine Appearance Turbid A (Clear) Urine pH 5.0 (4.5-7.5) Ur Specific [place] 1.026 (1.000-1.030) Urine Protein 1+ H (Negative) Urine Glucose (UA) Negative (Negative) Urine Ketones Negative (Negative) Urine Blood Negative (Negative) Urine Nitrite Positive A (Negative) Urine Bilirubin 2+ H (Negative) Urine Urobilinogen Negative (Negative) Ur Leukocyte Esterase 1+ H (Negative) Urine WBC (Auto) 1-5 (0-5) /hpf Urine RBC (Auto) 0-4 (0-4) /hpf U Hyaline Cast (Auto) >30 H (0-5) /lpf U Epithel Cells (Auto) >30 H (0-5) /lpf Urine Bacteria (Auto) 1+ H (Negative) Amorphous Sediment Present A (None Prsent) Urine Yeast Not Reportable Urine Opiates Screen Pos H (Neg) U Codeine Confrm GC/MS Pending Ur Morphine (GC/MS) Pending Ur Hydrocodone (GC/MS) Pending Ur Norhydrocodone Pending Ur Noroxycodone Pending Urine Oxycodone (GC/MS) Pending U Oxymorphone GC/MS Pending Ur Methadone, Qual Neg (Neg) Ur Hydromorphone (GC/MS) Pending Urine Barbiturates Neg (Neg) Ur Phencyclidine (PCP) Neg (Neg) U Amphetamin/Meth Scrn Neg (Neg) MDMA (Ecstasy) Screen Neg (Neg) U Benzodiazepines Scrn Neg (Neg) Ur Cocaine Metabolite Neg (Neg) U Marijuana (THC) Screen Neg (Neg) Drug Screen Comment Pending Blood Type Antibody Screen Crossmatch 10/07/19 10/07/19 10/07/19 Range/Units 00:18 00:18 00:18 WBC (4.8-10.8) K/uL RBC (4.2-5.4) M/uL Hgb 7.5 L (12.0-16.0) g/dL Hct 21.3 L (37-47) % MCV (80-100) fL MCH (25-34) pg MCHC (32-36) g/dL RDW Std Deviation (36.4-46.3) fL RDW Coeff of Ally (11.5-14.5) % Plt Count (130-400) K/uL MPV (7.4-10.4) fL Immature Gran % (Auto) % Neut % (Auto) % Lymph % (Auto) % [place] % (Auto) % Eos % (Auto) % Baso % (Auto) % Immature Gran # (Auto) (0.00-0.02) K/uL Neut # (Auto) (1.4-6.5) K/uL Lymph # (Auto) (1.2-3.4) K/uL [place] # (Auto) (0.11-0.59) K/uL Eos # (Auto) (0-0.5) K/uL Baso # (Auto) (0-0.2) K/uL Platelet Estimate (Normal) Target Cells Gar[place] Bodies PT (9.0-12.0) Seconds INR (0.9-1.1) APTT (21.0-31.0) Seconds PTT Ratio Sodium 126 L (136-145) mmol/L Potassium 3.4 L (3.5-5.1) mmol/L Chloride 93 L (98-107) mmol/L Carbon Dioxide 24 (21-32) mmol/L Anion Gap 9.0 (3-11) BUN 17 (7-18) mg/dl Creatinine 3.26 H (0.6-1.2) mg/dl Est Cr Clr Drug Dosing 22.6 ml/min Est GFR ( Amer) 17.6 Est GFR (Non-Af Amer) 15.2 BUN/Creatinine Ratio 5.3 L (10-20) Glucose 126 H (70-99) mg/dl POC Glucose (70-99) mg/dl Osmolality (280-300) mOsm/kg Lactate 2.6 H* (0.4-2.0) mmol/L Calcium 8.1 L (8.5-10.1) mg/dl Magnesium (1.8-2.4) mg/dl Total Bilirubin (0.2-1) mg/dl AST (15-37) U/L ALT (12-78) U/L Alkaline Phosphatase (45-117) U/L Total Protein (6.4-8.2) gm/dl Albumin (3.4-5.0) gm/dl Globulin (2.5-4.0) gm/dl Albumin/Globulin Ratio (0.9-2) Lipase (73-393) U/L TSH 2.270 (0.300-4.500) uIu/ml Urine Color Urine Appearance (Clear) Urine pH (4.5-7.5) Ur Specific [place] (1.000-1.030) Urine Protein (Negative) Urine Glucose (UA) (Negative) Urine Ketones (Negative) Urine Blood (Negative) Urine Nitrite (Negative) Urine Bilirubin (Negative) Urine Urobilinogen (Negative) Ur Leukocyte Esterase (Negative) Urine WBC (Auto) (0-5) /hpf Urine RBC (Auto) (0-4) /hpf U Hyaline Cast (Auto) (0-5) /lpf U Epithel Cells (Auto) (0-5) /lpf Urine Bacteria (Auto) (Negative) Amorphous Sediment (None Prsent) Urine Yeast Urine Opiates Screen (Neg) U Codeine Confrm GC/MS Ur Morphine (GC/MS) Ur Hydrocodone (GC/MS) Ur Norhydrocodone Ur Noroxycodone Urine Oxycodone (GC/MS) U Oxymorphone GC/MS Ur Methadone, Qual (Neg) Ur Hydromorphone (GC/MS) Urine Barbiturates (Neg) Ur Phencyclidine (PCP) (Neg) U Amphetamin/Meth Scrn (Neg) MDMA (Ecstasy) Screen (Neg) U Benzodiazepines Scrn (Neg) Ur Cocaine Metabolite (Neg) U Marijuana (THC) Screen (Neg) Drug Screen Comment Blood Type Antibody Screen Crossmatch 10/06/19 10/06/19 10/06/19 Range/Units 21:41 21:41 19:41 WBC (4.8-10.8) K/uL RBC (4.2-5.4) M/uL Hgb (12.0-16.0) g/dL Hct (37-47) % MCV (80-100) fL MCH (25-34) pg MCHC (32-36) g/dL RDW Std Deviation (36.4-46.3) fL RDW Coeff of Ally (11.5-14.5) % Plt Count (130-400) K/uL MPV (7.4-10.4) fL Immature Gran % (Auto) % Neut % (Auto) % Lymph % (Auto) % [place] % (Auto) % Eos % (Auto) % Baso % (Auto) % Immature Gran # (Auto) (0.00-0.02) K/uL Neut # (Auto) (1.4-6.5) K/uL Lymph # (Auto) (1.2-3.4) K/uL [place] # (Auto) (0.11-0.59) K/uL Eos # (Auto) (0-0.5) K/uL Baso # (Auto) (0-0.2) K/uL Platelet Estimate (Normal) Target Cells Gar[place] Bodies PT 24.0 H (9.0-12.0) Seconds INR 2.4 H (0.9-1.1) APTT 47.6 H* (21.0-31.0) Seconds PTT Ratio 1.7 Sodium (136-145) mmol/L Potassium (3.5-5.1) mmol/L Chloride (98-107) mmol/L Carbon Dioxide (21-32) mmol/L Anion Gap (3-11) BUN (7-18) mg/dl Creatinine (0.6-1.2) mg/dl Est Cr Clr Drug Dosing ml/min Est GFR ( Amer) Est GFR (Non-Af Amer) BUN/Creatinine Ratio (10-20) Glucose (70-99) mg/dl POC Glucose (70-99) mg/dl Osmolality (280-300) mOsm/kg Lactate 2.3 H* (0.4-2.0) mmol/L Calcium (8.5-10.1) mg/dl Magnesium (1.8-2.4) mg/dl Total Bilirubin (0.2-1) mg/dl AST (15-37) U/L ALT (12-78) U/L Alkaline Phosphatase (45-117) U/L Total Protein (6.4-8.2) gm/dl Albumin (3.4-5.0) gm/dl Globulin (2.5-4.0) gm/dl Albumin/Globulin Ratio (0.9-2) Lipase (73-393) U/L TSH (0.300-4.500) uIu/ml Urine Color Urine Appearance (Clear) Urine pH (4.5-7.5) Ur Specific [place] (1.000-1.030) Urine Protein (Negative) Urine Glucose (UA) (Negative) Urine Ketones (Negative) Urine Blood (Negative) Urine Nitrite (Negative) Urine Bilirubin (Negative) Urine Urobilinogen (Negative) Ur Leukocyte Esterase (Negative) Urine WBC (Auto) (0-5) /hpf Urine RBC (Auto) (0-4) /hpf U Hyaline Cast (Auto) (0-5) /lpf U Epithel Cells (Auto) (0-5) /lpf Urine Bacteria (Auto) (Negative) Amorphous Sediment (None Prsent) Urine Yeast Urine Opiates Screen (Neg) U Codeine Confrm GC/MS Ur Morphine (GC/MS) Ur Hydrocodone (GC/MS) Ur Norhydrocodone Ur Noroxycodone Urine Oxycodone (GC/MS) U Oxymorphone GC/MS Ur Methadone, Qual (Neg) Ur Hydromorphone (GC/MS) Urine Barbiturates (Neg) Ur Phencyclidine (PCP) (Neg) U Amphetamin/Meth Scrn (Neg) MDMA (Ecstasy) Screen (Neg) U Benzodiazepines Scrn (Neg) Ur Cocaine Metabolite (Neg) U Marijuana (THC) Screen (Neg) Drug Screen Comment Blood Type O Positive Antibody Screen NEGATIVE Crossmatch See Detail 10/06/19 10/06/19 10/06/19 Range/Units 19:41 19:40 19:40 WBC 10.00 (4.8-10.8) K/uL RBC 2.31 L (4.2-5.4) M/uL Hgb 8.0 L (12.0-16.0) g/dL Hct 22.4 L (37-47) % MCV 97.0 (80-100) fL MCH 34.6 H (25-34) pg MCHC 35.7 (32-36) g/dL RDW Std Deviation 54.2 H (36.4-46.3) fL RDW Coeff of Ally 15.6 H (11.5-14.5) % Plt Count 95 L (130-400) K/uL MPV 10.5 H (7.4-10.4) fL Immature Gran % (Auto) 0.4 % Neut % (Auto) 84.7 % Lymph % (Auto) 6.1 % [place] % (Auto) 8.4 % Eos % (Auto) 0.3 % Baso % (Auto) 0.1 % Immature Gran # (Auto) 0.04 H (0.00-0.02) K/uL Neut # (Auto) 8.47 H (1.4-6.5) K/uL Lymph # (Auto) 0.61 L (1.2-3.4) K/uL [place] # (Auto) 0.84 H (0.11-0.59) K/uL Eos # (Auto) 0.03 (0-0.5) K/uL Baso # (Auto) 0.01 (0-0.2) K/uL Platelet Estimate Decreased L (Normal) Target Cells 1+ Gar[place] Bodies PT (9.0-12.0) Seconds INR (0.9-1.1) APTT (21.0-31.0) Seconds PTT Ratio Sodium 125 L (136-145) mmol/L Potassium 3.4 L (3.5-5.1) mmol/L Chloride 93 L (98-107) mmol/L Carbon Dioxide 24 (21-32) mmol/L Anion Gap 8.0 (3-11) BUN 17 (7-18) mg/dl Creatinine 3.05 H (0.6-1.2) mg/dl Est Cr Clr Drug Dosing 22.7 ml/min Est GFR ( Amer) 19.1 Est GFR (Non-Af Amer) 16.5 BUN/Creatinine Ratio 5.6 L (10-20) Glucose 112 H (70-99) mg/dl POC Glucose (70-99) mg/dl Osmolality 271 L (280-300) mOsm/kg Lactate (0.4-2.0) mmol/L Calcium 8.5 (8.5-10.1) mg/dl Magnesium 1.1 L (1.8-2.4) mg/dl Total Bilirubin 3.4 H (0.2-1) mg/dl AST 24 (15-37) U/L ALT 17 (12-78) U/L Alkaline Phosphatase 255 H (45-117) U/L Total Protein 7.9 (6.4-8.2) gm/dl Albumin 1.7 L (3.4-5.0) gm/dl Globulin 6.2 H (2.5-4.0) gm/dl Albumin/Globulin Ratio 0.3 L (0.9-2) Lipase 109 (73-393) U/L TSH (0.300-4.500) uIu/ml Urine Color Urine Appearance (Clear) Urine pH (4.5-7.5) Ur Specific [place] (1.000-1.030) Urine Protein (Negative) Urine Glucose (UA) (Negative) Urine Ketones (Negative) Urine Blood (Negative) Urine Nitrite (Negative) Urine Bilirubin (Negative) Urine Urobilinogen (Negative) Ur Leukocyte Esterase (Negative) Urine WBC (Auto) (0-5) /hpf Urine RBC (Auto) (0-4) /hpf U Hyaline Cast (Auto) (0-5) /lpf U Epithel Cells (Auto) (0-5) /lpf Urine Bacteria (Auto) (Negative) Amorphous Sediment (None Prsent) Urine Yeast Urine Opiates Screen (Neg) U Codeine Confrm GC/MS Ur Morphine (GC/MS) Ur Hydrocodone (GC/MS) Ur Norhydrocodone Ur Noroxycodone Urine Oxycodone (GC/MS) U Oxymorphone GC/MS Ur Methadone, Qual (Neg) Ur Hydromorphone (GC/MS) Urine Barbiturates (Neg) Ur Phencyclidine (PCP) (Neg) U Amphetamin/Meth Scrn (Neg) MDMA (Ecstasy) Screen (Neg) U Benzodiazepines Scrn (Neg) Ur Cocaine Metabolite (Neg) U Marijuana (THC) Screen (Neg) Drug Screen Comment Blood Type Antibody Screen Crossmatch Medications Administered Current Inpatient Medications Acetaminophen (Tylenol) 325 mg PO Q6H PRN PRN Reason: Pain or Fever Stop: 11/05/19 23:17 Hydrocodone Bitart/Acetaminophen ([place] 5/325) 1 tab PO QID PRN PRN Reason: Pain Stop: 10/20/19 20:33 Dextrose (Dextrose 50%) 25 - 50 ml IV UD PRN; Protocol PRN Reason: Hypoglycemia Protocol Stop: 11/06/19 04:29 Diltiazem HCl (Cardizem Cd) 300 mg PO QAM CARLOS Stop: 11/06/19 08:59 Last Admin: 10/07/19 08:01 Dose: 300 mg Documented by: Ertapenem (Consult) 1 ea N/A UD PRN PRN Reason: Consult Stop: 11/05/19 23:28 Folic Acid (Folvite) 1 mg PO DAILY CARLOS Stop: 11/06/19 08:59 Last Admin: 10/07/19 08:01 Dose: 1 mg Documented by: Gabapentin (Neurontin) 100 mg PO Q6H CARLOS Stop: 10/07/19 12:01 Last Admin: 10/07/19 06:18 Dose: 100 mg Documented by: Gabapentin (Neurontin) 200 mg PO Q24H CARLOS Stop: 10/09/19 23:31 Gabapentin (Neurontin) 400 mg PO Q24H [facility]LOS Stop: 10/08/19 23:31 Gabapentin (Neurontin) 600 mg PO Q24H [facility]LOS Stop: 10/07/19 23:31 Glucagon (Glucagen) 1 mg IM UD PRN; Protocol PRN Reason: Hypoglycemia Protocol Stop: 11/06/19 04:29 Glucose (Glucose 40%) 15 - 30 gm PO UD PRN; Protocol PRN Reason: Hypoglycemia Protocol Stop: 11/06/19 04:29 Glucose (Dex4 Glucose) 4 - 8 tabs PO UD PRN; Protocol PRN Reason: Hypoglycemia Protocol Stop: 11/06/19 04:29 Hydromorphone HCl (Dilaudid) 0.25 mg IV Q4H PRN PRN Reason: Pain Stop: 10/20/19 23:17 Albumin Human (Albumin 25%) 50 mls @ 50 mls/hr IV Q6H [facility] Stop: 10/10/19 00:00 Last Infusion: 10/07/19 06:34 Dose: Infused Documented by: Promethazine HCl 12.5 mg/ (Sodium Chloride) 50.5 mls @ 202 mls/hr IV Q6H PRN PRN Reason: Nausea And Vomiting Stop: 11/05/19 23:17 Ertapenem 500 mg/ Sodium (Chloride) 55 mls @ 110 mls/hr IV Q24H [facility] Stop: 10/14/19 21:59 Lorazepam (Ativan) 2 mg in 4 mls @ 4 mls/min IV UD PRN; Protocol PRN Reason: EtOH Withdrawl AWSS Score 8,9 Stop: 11/05/19 23:26 Lorazepam (Ativan) 3 mg in 6 mls @ 4 mls/min IV ONCE PRN; Protocol PRN Reason: EtOH Withdrawl AWSS Score >=10 Stop: 11/05/19 23:26 Lorazepam (Ativan) 1 mg in 2 mls @ 2 mls/min IV UD PRN; Protocol PRN Reason: EtOH Withdrawl AWSS Score 6,7 Stop: 11/05/19 23:26 Pantoprazole Sodium 40 mg/ (Dextrose) 100 mls @ 20 mls/hr IV Q5H [facility] Stop: 11/06/19 00:29 Last Admin: 10/07/19 10:03 Dose: Not Given Documented by: Octreotide Acetate 500 mcg/ (Sodium Chloride) 105 mls @ 10.5 mls/hr IV .Q10H [facility] Stop: 11/06/19 10:29 Insulin Aspart (Novolog Flexpen) 0 units SC Q6 [facility] Stop: 11/06/19 05:59 Last Admin: 10/07/19 06:28 Dose: Not Given Documented by: Ipratropium [place] (Atrovent 0.02% 0.5mg/2.5ml) 0.5 mg INH Q4H PRN PRN Reason: SOB/WHEEZING Stop: 11/05/19 23:17 Levalbuterol HCl (Xopenex 1.25mg/0.5ml Neb) 1.25 mg INH Q4H PRN PRN Reason: SOB/WHEEZING Stop: 11/05/19 23:17 Midodrine (Proamatine) 10 mg PO TID@0800,1200,1700 [facility] Stop: 11/06/19 11:59 Miscellaneous (Carbohydrates For Hypoglycemia) 15 - 30 gm PO UD PRN PRN Reason: Hypoglycemia Treatment Stop: 11/06/19 04:29 Multivitamins (Multivitamin Tab) 1 tab PO QAM [facility] Stop: 11/06/19 08:59 Last Admin: 10/07/19 08:00 Dose: 1 tab Documented by: Perphenazine (Trilafon) 8 mg PO BID [facility] Stop: 11/05/19 23:44 Last Admin: 10/07/19 08:00 Dose: Not Given Documented by: Thiamine HCl (Vitamin B-1) 100 mg PO QAM [facility] Stop: 11/06/19 08:59 Last Admin: 10/07/19 08:00 Dose: 100 mg Documented by: Umeclidinium [place] (Incruse Ellipta) 1 puffs INH DAILY [facility] Stop: 11/06/19 08:59 Last Admin: 10/07/19 08:01 Dose: 1 puffs Documented by: Zinc Acetate/Diphenhydramine (Benadryl Extra Strength) 1 appln EXT QID PRN PRN Reason: itchy skin Stop: 11/06/19 03:01 Last Admin: 10/07/19 04:54 Dose: 1 appln Documented by: (1) Acute renal failure (ARF) Acute renal failure type: unspecified Qualified Code(s): N17.9 - Acute kidney failure, unspecified (2) DM type 2 (diabetes mellitus, type 2) Diabetes mellitus complication status: with other specified complication Diabetes mellitus usp insulin use: unspecified pediatric oncology nurse insulin use status Qualified Code(s): E11.69 - Type 2 diabetes mellitus with other specified complication (3) Anemia Anemia type: unspecified type Qualified Code(s): D64.9 - Anemia, unspecified (4) Ascites Ascites type: other type Qualified Code(s): R18.8 - Other ascites (5) Schizoaffective disorder Schizoaffective disorder type: unspecified Qualified Code(s): F25.9 - Schizoaffective disorder, unspecified (6) Abdominal pain Abdominal location: epigastric Qualified Code(s): R10.13 - Epigastric pain (7) HTN (hypertension) Hypertension type: unspecified Qualified Code(s): I10 - Essential (primary) hypertension
--- NOTE | 2019-10-07 10:57 | Consultation Report ---
DATE OF CONSULTATION: 10/07/2019 NOTICE TO RECEIVING [employer]/AGENCY This information is strictly Confidential and protected under [place] law. [place] law prohibits you from making any further disclosure of this information unless further disclosure is expressly permitted by the written consent of the person to whom it pertains or is authorized by law. A general authorization for the release of medical or other information is not sufficient for this purpose. Hospital accepts no responsibility if the information is made available to any other person, INCLUDING THE PATIENT. REASON FOR CONSULT: Acute renal failure and hyponatremia in a patient with advanced decompensated cirrhosis. HISTORY OF PRESENT ILLNESS: The patient is a 54-year-old female with known history of liver cirrhosis as well as multiple other chronic problems presented to the Emergency Department with a chief complaint of abdominal discomfort and distention for the last few weeks. The patient is a very, very poor historian and goes very tangential with her account of her medical history. She was also complaining of increased shortness of breath as well as increasing lower extremity edema. The patient does take a low dose Lasix 20 daily and spironolactone. Blood work done at the admission showed acute renal failure with a creatinine of 3.26, which is significantly higher than her most recent blood work showing a creatinine of 1.22. Sodium was also low at 126. Since admission, she has received IV albumin. Protonix drip and diuretics have been held. Her labs have not really improved, in fact are slightly worse. I am not exactly sure about the amount of urine she is making as it is not measured. PAST MEDICAL AND SURGICAL HISTORY: Includes liver cirrhosis with ascites, hypertension, COPD/asthma, schizoaffective disorder, anxiety, type 2 diabetes, history of paroxysmal atrial fibrillation, history of multiple electrolyte problem. HOME MEDICATIONS: List was reviewed in detail and includes valacyclovir, lactulose, diltiazem, Eliquis, potassium chloride, Benadryl, folic acid, Lasix 20 daily, perphenazine, Protonix, hydroxyzine, and spironolactone. PAST SURGICAL HISTORY: hernia surgery, history of ovarian cystectomy. FAMILY HISTORY: Positive for ESRD on dialysis in her father; cause of ESRD unknown. SOCIAL HISTORY: The patient has a history of drug as well as alcohol abuse, current smoking. She is unemployed and disabled. Lives in an apartment with her brother. REVIEW OF SYSTEMS: As detailed in HPI unless stated otherwise. 12 systems reviewed and negative. PHYSICAL EXAMINATION: GENERAL: Middle-aged white female who is not in any overt respiratory distress at rest. She is awake, alert, oriented x3. HEENT: Normocephalic, atraumatic. Mucous membrane is moist. NECK: Supple. No jugular venous distention. LUNGS: Bilateral decreased breath sounds with diffuse bilateral wheezing as well as rhonchi. CARDIOVASCULAR: Regular rate and rhythm. Systolic murmur, soft. EXTREMITIES: She does have 2+ edema bilaterally extending all the way to the thigh. EXTREMITIES: No cyanosis, no calf tenderness. NEUROLOGIC: Awake, alert, oriented. SKIN: Warm and dry. VITAL SIGNS: Shows a blood pressure of 94/54, temperature 36.4, 93% on room air, pulse rate 68 per minute. LABORATORY TESTS: Reviewed in detail. Blood work this morning shows a sodium of 124, potassium 3.5, BUN 18, creatinine is 3.22, glucose 134. Lactic acid 1.8, bilirubin is 4.1. Alkaline phosphatase 254, albumin 2.3. WBC count 9.97, hemoglobin 8.9, platelet count 99. Urine osmolarity 267, urine sodium 8. Urine dipstick was positive for nitrite and bilirubin, but was negative for blood and 1+ for protein. Chest x-ray done did not show any acute abnormality, but did show some patchy airspace opacities. Abdomen and pelvis CT scan showed moderately large volume ascites but the kidneys was unremarkable with no hydronephrosis. ASSESSMENT AND PLAN: A 54-year-old female with multiple medical problems including advanced liver cirrhosis as well as COPD and atrial fibrillation but only mild CKD at baseline, presenting with increasing ascites and abdominal distention and lower extremity edema. She was found to have acute renal failure on background chronic kidney disease 3 as well as hyponatremia for which I have been consulted. 1. Acute renal failure. This is in the setting of advanced decompensated liver cirrhosis. This is not volume depletion. If anything, she has significantly more edema than usual as well as significantly more ascites. It could very well be hepatorenal syndrome given the very low urine sodium as well as the clinical setting. We would empirically treat as if this is hepatorenal syndrome with IV albumin, octreotide as well as midodrine; all 3 medications will be used as part of the triple therapy. The urine finding is not very consistent with ATN, although that is always in the differential diagnosis. For the time being, I would continue to hold the Lasix, but I really do not believe the patient is volume depleted. If anything, she has clear evidence of hypervolemia. 2. Hyponatremia. This is hypervolemic hyponatremia in the setting of liver cirrhosis and acute renal failure. Continue triple therapy for today, but probably tomorrow, we will be using IV Lasix to help with diuresis and help to increase the serum sodium. Case complexity is high. MTDD
[2019-10-07] MEDS ORDERED: ALBUMIN 25% 50 ML IV SCH (11:00)
[2019-10-07] MEDS: OCTREOTIDE ACETATE 500 MCG in 0.9 % SODIUM CHLORIDE 100 ML IV SCH ×2 (11:21→22:02)
[2019-10-07] MEDS: MIDODRINE HCL 10 MG TAB PO SCH ×3 (11:24→16:40)
[2019-10-07 12:22] LABS: Hematocrit (blood only) 25.6 % (37-47); Hemoglobin 9.1 g/dL (12.0-16.0)
--- NOTE | 2019-10-07 12:35 | Electrocardiogram Report ---
Test Reason : Blood Pressure : / mmHG Vent. Rate : 079 BPM Atrial Rate : 079 BPM P-R Int : 170 ms QRS Dur : 092 ms QT Int : 414 ms P-R-T Axes : 060 -19 037 degrees QTc Int : 474 ms Normal sinus rhythm Normal ECG When compared with ECG of 17-AUG-2019 20:49, No significant change Confirmed by Nehemiah Apple ([id number]) on 10/07/2019 12:35:31 PM Referred By: REFERRED SELF Confirmed By:Nehemiah Apple
[2019-10-07] MEDS ORDERED: Nursing to Pharmacy Communication ONE (16:41)
[2019-10-07] MEDS: ERTAPENEM SODIUM 500 MG in SODIUM CHLORIDE 0.9% 50 ML IV SCH (22:14)
[2019-10-07] MEDS ORDERED: GABAPENTIN 600 MG TAB PO SCH (23:30)
[2019-10-08] MEDS: ALBUMIN 25% 50 ML IV SCH ×5 (00:08→23:35)
[2019-10-08] MEDS: PANTOprazole 40 MG in DEXTROSE 5% 100 ML IV SCH ×3 (00:53→12:42)
[2019-10-08] MEDS: OCTREOTIDE ACETATE 500 MCG in 0.9 % SODIUM CHLORIDE 100 ML IV SCH ×2 (05:37→12:43)
--- NOTE | 2019-10-08 08:34 | Gastroenterology Progress Note ---
Date of Service October 08, 2019 Assessment & Plan (1) Acute renal failure: 53 year old female with history of polysubstance abuse, COPD, Afib on Eliquis, hx of TIAs, HTN, DM II, schizophrenia admitted w/ VENECIA, ascites. Prior admission in July she underwent endoscopic evaluation w/ both an upper and lower endoscopy without any evidence of active bleeding or significant abnormality. She underwent diagnostic/therapeutic paracentesis given new development of ascites which was concerning for portal hypertension, outside imaging concerning for cirrhosis, negative cytology. Now admitted w/ ascites despite diuresis and report of dietary compliance and VENECIA concerning for HRS on octreotide, midodrine and albumin (nephrology following), not agreeable to repeat paracentesis as this causes her pain. MELD 35. AM labs pending. - Daily MELD labs - She is agreeable to formal rehabilitation service at discharge for her polysubstance abuse - No NSAIDs - Less than 2G of tylenol containing products if using - Low NA diet, less than 2G daily - HRS - Hold diuretics - Appreciate nephrology input Home dose was Lasix 20 mg, aldactone 50 mg - Consider transfer for TIPS evaluation by IR as she is not tolerating diuresis - No ETOH, other illicit drug - EGD in 2021 - HCC screen in January 2020 - OP hepatology referral Thank you for allowing us to participate in the care of this patient. Please call with any acute changes, questions or concerns. Please see addendum below with additional recommendation from my supervising physician. (2) Ascites: Admission and Anticipated Discharge Date Admission Date: October 06, 2019 Supervising Physician Co-Signing Physician Notes I saw and evaluated the patient. She is refusing most offers of care at the present time. I suspect this may be related to her underlying schizoaffective disorder as opposed to related to underlying liver disease. However, despite this I would recommend that we have the patient start rifaximin in case she has underlying encephalopathy. In past she had been on lactulose however I would recommend against this medication in her case due to her renal failure upon admission. Unfortunately she did not tolerate diuretics as an outpatient therefore options for management of her volume status be limited to salt restriction and perhaps a TIPS procedure in the future. Subjective Chart reviewed. AM labs pending. No acute events noted in chart overnight. Results & Data ([facility]) Vital Signs (Past 12 Hours) Vital Signs Pulse 10/08/19 08:11 87 10/07/19 23:00 94 H Laboratory Results 10/07/19 10/07/19 10/07/19 Range/Units 16:39 12:13 11:50 WBC (4.8-10.8) K/uL RBC (4.2-5.4) M/uL Hgb 9.1 L (12.0-16.0) g/dL Hct 25.6 L (37-47) % MCV (80-100) fL MCH (25-34) pg MCHC (32-36) g/dL RDW Std Deviation (36.4-46.3) fL RDW Coeff of Ally (11.5-14.5) % Plt Count (130-400) K/uL MPV (7.4-10.4) fL Immature Gran % (Auto) % Neut % (Auto) % Lymph % (Auto) % Weld % (Auto) % Eos % (Auto) % Baso % (Auto) % Immature Gran # (Auto) (0.00-0.02) K/uL Neut # (Auto) (1.4-6.5) K/uL Lymph # (Auto) (1.2-3.4) K/uL Weld # (Auto) (0.11-0.59) K/uL Eos # (Auto) (0-0.5) K/uL Baso # (Auto) (0-0.2) K/uL Platelet Estimate (Normal) Target Cells Garza-Merino Bodies PT (9.0-12.0) Seconds INR (0.9-1.1) Sodium (136-145) mmol/L Potassium (3.5-5.1) mmol/L Chloride (98-107) mmol/L Carbon Dioxide (21-32) mmol/L Anion Gap (3-11) BUN (7-18) mg/dl Creatinine (0.6-1.2) mg/dl Est Cr Clr Drug Dosing ml/min Est GFR ( Amer) Est GFR (Non-Af Amer) BUN/Creatinine Ratio (10-20) Glucose (70-99) mg/dl POC Glucose 128 H 143 H (70-99) mg/dl Lactate (0.4-2.0) mmol/L Calcium (8.5-10.1) mg/dl Magnesium (1.8-2.4) mg/dl Total Bilirubin (0.2-1) mg/dl AST (15-37) U/L ALT (12-78) U/L Alkaline Phosphatase (45-117) U/L Total Protein (6.4-8.2) gm/dl Albumin (3.4-5.0) gm/dl Globulin (2.5-4.0) gm/dl Albumin/Globulin Ratio (0.9-2) 10/07/19 10/07/19 10/07/19 Range/Units 09:41 09:36 09:36 WBC (4.8-10.8) K/uL RBC (4.2-5.4) M/uL Hgb (12.0-16.0) g/dL Hct (37-47) % MCV (80-100) fL MCH (25-34) pg MCHC (32-36) g/dL RDW Std Deviation (36.4-46.3) fL RDW Coeff of Ally (11.5-14.5) % Plt Count (130-400) K/uL MPV (7.4-10.4) fL Immature Gran % (Auto) % Neut % (Auto) % Lymph % (Auto) % Weld % (Auto) % Eos % (Auto) % Baso % (Auto) % Immature Gran # (Auto) (0.00-0.02) K/uL Neut # (Auto) (1.4-6.5) K/uL Lymph # (Auto) (1.2-3.4) K/uL Weld # (Auto) (0.11-0.59) K/uL Eos # (Auto) (0-0.5) K/uL Baso # (Auto) (0-0.2) K/uL Platelet Estimate (Normal) Target Cells Garza-Merino Bodies PT 19.0 H (9.0-12.0) Seconds INR 1.9 H (0.9-1.1) Sodium 124 L (136-145) mmol/L Potassium 3.5 (3.5-5.1) mmol/L Chloride 91 L (98-107) mmol/L Carbon Dioxide 24 (21-32) mmol/L Anion Gap 9.0 (3-11) BUN 18 (7-18) mg/dl Creatinine 3.22 H (0.6-1.2) mg/dl Est Cr Clr Drug Dosing 22.8 ml/min Est GFR ( Amer) 17.9 Est GFR (Non-Af Amer) 15.4 BUN/Creatinine Ratio 5.4 L (10-20) Glucose 134 H (70-99) mg/dl POC Glucose (70-99) mg/dl Lactate 1.8 (0.4-2.0) mmol/L Calcium 8.6 (8.5-10.1) mg/dl Magnesium 2.1 (1.8-2.4) mg/dl Total Bilirubin 4.1 H (0.2-1) mg/dl AST 23 (15-37) U/L ALT 20 (12-78) U/L Alkaline Phosphatase 254 H (45-117) U/L Total Protein 8.1 (6.4-8.2) gm/dl Albumin 2.3 L (3.4-5.0) gm/dl Globulin 5.8 H (2.5-4.0) gm/dl Albumin/Globulin Ratio 0.4 L (0.9-2) 10/07/19 Range/Units 09:36 WBC 9.97 (4.8-10.8) K/uL RBC 2.62 L (4.2-5.4) M/uL Hgb 8.9 L (12.0-16.0) g/dL Hct 25.2 L (37-47) % MCV 96.2 (80-100) fL MCH 34.0 (25-34) pg MCHC 35.3 (32-36) g/dL RDW Std Deviation 53.5 H (36.4-46.3) fL RDW Coeff of Ally 15.4 H (11.5-14.5) % Plt Count 99 L (130-400) K/uL MPV 10.6 H (7.4-10.4) fL Immature Gran % (Auto) 0.4 % Neut % (Auto) 84.5 % Lymph % (Auto) 7.0 % Weld % (Auto) 7.2 % Eos % (Auto) 0.8 % Baso % (Auto) 0.1 % Immature Gran # (Auto) 0.04 H (0.00-0.02) K/uL Neut # (Auto) 8.42 H (1.4-6.5) K/uL Lymph # (Auto) 0.70 L (1.2-3.4) K/uL Weld # (Auto) 0.72 H (0.11-0.59) K/uL Eos # (Auto) 0.08 (0-0.5) K/uL Baso # (Auto) 0.01 (0-0.2) K/uL Platelet Estimate Decreased L (Normal) Target Cells 1+ Garza-Merino Bodies 1+ PT (9.0-12.0) Seconds INR (0.9-1.1) Sodium (136-145) mmol/L Potassium (3.5-5.1) mmol/L Chloride (98-107) mmol/L Carbon Dioxide (21-32) mmol/L Anion Gap (3-11) BUN (7-18) mg/dl Creatinine (0.6-1.2) mg/dl Est Cr Clr Drug Dosing ml/min Est GFR ( Amer) Est GFR (Non-Af Amer) BUN/Creatinine Ratio (10-20) Glucose (70-99) mg/dl POC Glucose (70-99) mg/dl Lactate (0.4-2.0) mmol/L Calcium (8.5-10.1) mg/dl Magnesium (1.8-2.4) mg/dl Total Bilirubin (0.2-1) mg/dl AST (15-37) U/L ALT (12-78) U/L Alkaline Phosphatase (45-117) U/L Total Protein (6.4-8.2) gm/dl Albumin (3.4-5.0) gm/dl Globulin (2.5-4.0) gm/dl Albumin/Globulin Ratio (0.9-2) (1) Acute renal failure Acute renal failure type: unspecified Qualified Code(s): N17.9 - Acute kidney failure, unspecified (2) Ascites Ascites type: other type Qualified Code(s): R18.8 - Other ascites
[2019-10-08] MEDS: INSULIN ASPART 100 UNITS/ML 3 ML PEN SC SCH ×4 (09:10→21:44)
[2019-10-08] MEDS: PERPHENAZINE 2 MG TABLET PO SCH ×2 (09:11→20:44)
[2019-10-08] MEDS: MIDODRINE HCL 10 MG TAB PO SCH ×3 (09:11→17:01)
[2019-10-08] MEDS: dilTIAZem HCL 300 MG CAPCR PO SCH ×2 (09:11→12:46)
[2019-10-08] MEDS: THIAMINE HCL 100 MG TAB PO SCH (09:11)
[2019-10-08] MEDS: UMECLIDINIUM BROMIDE 62.5MCG/BLISTER 7 PUFFS/INHALER INH SCH ×2 (09:11→12:46)
[2019-10-08] MEDS: MULTIVITAMIN TAB PO SCH (09:11)
[2019-10-08] MEDS: FOLIC ACID 1 MG TAB PO SCH (09:11)
[2019-10-08 11:36] LABS: Hematocrit (blood only) 25.7 % (37-47); Hemoglobin 9.1 g/dL (12.0-16.0)
[2019-10-08 11:45] LABS: INR 1.9 (0.9-1.1); Prothrombin Time 19.3 Seconds (9.0-12.0)
[2019-10-08 11:59] LABS: BUN Creatinine Ratio 5.6 (10-20); Calcium 8.5 mg/dl (8.5-10.1); Creatinine Clr Calc Pharmacy 20.9 ml/min; Est GFR (African American) 15.7; Est GFR (Non-African American) 13.6; Magnesium 1.9 mg/dl (1.8-2.4); Phosphorus 3.1 mg/dl (2.5-4.9); Potassium 3.7 mmol/L (3.5-5.1)
[2019-10-08] MEDS: HYDROCODONE/ACETAMOPHEN 5/325MG TAB PO PRN (12:42)
[2019-10-08] MEDS ORDERED: Nursing to Pharmacy Communication ONE (13:20)
--- NOTE | 2019-10-08 14:00 | Progress Notes ---
DATE: 10/08/2019 NEPHROLOGY PROGRESS NOTE REASON FOR FOLLOWUP: Acute renal failure and hyponatremia. SUBJECTIVE: Overnight, patient has had significant issues. She is refusing most of the interventions as well as medication. Psychiatry was also consulted, but they did not feel she meets the criteria for involuntary admission. No new symptoms. However, her symptoms are still the same. OBJECTIVE: VITAL SIGNS: Blood pressure is 101/64, pulse rate 58 per minute, temperature 37 degrees Celsius, 93% on room air. HEENT: Mucous membranes moist. NECK: Supple. No jugular venous distention. CHEST: Bilaterally decreased breath sounds. CARDIOVASCULAR: S1, S2 regular. ABDOMEN: Distended with ascites which is massive. EXTREMITIES: Show lower extremity edema bilaterally, pitting edema type. LABORATORY TESTS: From this morning was reviewed and shows serum sodium 125, potassium 3.7, BUN 20, creatinine 3.58, calcium 8.5. Her MELD score today is very high at 35. ASSESSMENT AND PLAN: 1. Acute renal failure. This is in the setting of advanced decompensated cirrhosis likely hepatorenal syndrome. Treatment for hepatorenal syndrome was recommended, but she is not getting any as she is refusing most of the treatment. If agreeable, I would continue with triple therapy as has been ordered. She is definitely not volume depleted. If anything, she has clear evidence of hypervolemia. 2. Hyponatremia. This is hypervolemic hyponatremia in the setting of liver cirrhosis and acute renal failure. Continue triple therapy for today, but probably tomorrow we should be using IV Lasix to help with diuresis and help to increase the serum sodium. There is plan for possible abdominal paracentesis later today, which would definitely help with her ascites symptom. FÁTIMA
--- NOTE | 2019-10-08 14:41 | Ultrasound Report ---
US paracentesis abd w/image CLINICAL HISTORY: 54 years-old Female presenting with ascites, liver dis., SBP?. COMPARISON: 08/18/2019. PROCEDURE: The procedure and its risks, benefits, and alternatives were discussed with the patient, and written informed consent was obtained. A timeout was performed to confirm patient identity. Limited ultrasound of the abdomen was performed to determine a safe needle entry site, and the site w as marker for paracentesis. The left lower quadrant was prepped and draped in the usual aseptic fashion. 1% Lidocaine was used fo r local anesthesia. A paracentesis needle-sheath was inserted into the peritoneal space using ultrasound guidance. The ne edle was removed and the sheath was connected to tubing and a vacuum suction device. A total of 4 L o f clear yellow ascites was aspirated. The sheath was removed, and a dressing applied. The patient tolerated the procedure well. No immediate complications. IMPRESSION: Ultrasound-guided diagnostic and therapeutic paracentesis with aspiration of 4 L of ascites. ACT 112: Negative or not required by law. Electronically signed by: Alonso Nelson M.D. 10/08/2019 2:40 PM
[2019-10-08] MEDS: ERTAPENEM SODIUM 500 MG in SODIUM CHLORIDE 0.9% 50 ML IV SCH (14:42)
[2019-10-08] MEDS ORDERED: ALBUMIN 25% 50 ML IV ONE (14:45)
--- NOTE | 2019-10-08 15:13 | Communication Note ---
Date of Service: October 08, 2019 Pt's case was reviewed and discussed with supervising physician, Dr. Gutierrez, yesterday. Case was further discussed with Dr. Dias via phone in order to rev iew possible treatment outcomes as it relates to questions of capacity. We reviewed that the patient does not meet criteria for a 302 involuntarily psychiatric commitment at this time, as patient is presenting with baseline paranoia and is not reporting thoughts to harm herself, others, or any additional safety concerns. She is attending to her ADLs, and comes to the hospital when in need of medical attention. Pt had been requesting to go home yesterday, but was agreed to stay after discussion of the risks associated with discharge. Conversation was had with primary team regarding capacity evaluations and ability to assess patient at time of request for discharge if she truly has capacity to make the decision to leave AMA. Primary team had also had conversation with supervising physician and psychiatric nurse liaison over the course of the day as well to review psychiatric recommendations. Today, it is reported that the patient is in much better spirits, has not been requesting to leave, was compliant with medications and lab work, and is now agreeing to have the paracentesis completed. This provider attempted to evaluate the patient today, but patient had been sleeping (which was much needed), and was later involved in testing and therefore unavailable. Information was received from psychiatric nurse liaison, who had seen the patient today and had been coordinating patient's progress with patient's nursing team. Would strongly suggest encouraging evening dose of perphenazine in order to target paranoia/delusions and improve sleep. Given patient's reported level of sedation, it seems somewhat reasonable (though still not ideal) that she is refusing the morning scheduled dose of perphenazine. No additional recommendations at this time. Will attempt to coordinate care with patient's PCP and psychiatric rehabilitation caseworker. Please reach out to our service with any additional questions or updates.
[2019-10-08 15:49] LABS: Albumin Peritoneal Fluid 0.6 g/dl
[2019-10-08 15:54] LABS: Total Protein Peritoneal Fluid 1.9 g/dl
[2019-10-08 16:23] LABS: Basophils, Fluid 1 %; Eosinophils, Fluid 0 %; Lymphocytes, Fluid 23 %; Mono,Macrophage,Mesothelial 57 %; Neutrophils, Fluid 19 %
[2019-10-08 16:49] LABS: Codeine Urine NEGATIVE ng/mL (<50); Hydrocodone Urine 888 ng/mL (<50); Hydromor Urine 403 ng/mL (<50); Morphine Urine NEGATIVE ng/mL (<50); Norhydrocodone Conf Ur NEGATIVE ng/mL (<50); Noroxycodone Urine NEGATIVE ng/mL (<50); Oxycodone Urine NEGATIVE ng/mL (<50); Oxymorph Urine NEGATIVE ng/mL (<50)
[2019-10-08 17:02] LABS: Appearance Peritoneal Fluid CLEAR; Color Peritoneal Fluid YELLOW; RBC Peritoneal Fluid (A) < 3000 /uL; WBC Peritoneal Fluid (A) 102 /ul (0-300)
[2019-10-08] MEDS: PANTOprazole 40 MG in SYRINGE 0 ML IV SCH (20:46)
[2019-10-08] MEDS ORDERED: HEPARIN SOD 5,000 UNIT/0.5 ML VIAL SQ SCH (21:00)
[2019-10-08] MEDS ORDERED: GABAPENTIN 400 MG CAP PO SCH (23:30)
[2019-10-09] MEDS ORDERED: ALBUMIN 25% 50 ML IV ONE (01:53)
[2019-10-09] MEDS: OCTREOTIDE ACETATE 500 MCG in 0.9 % SODIUM CHLORIDE 100 ML IV SCH ×3 (02:20→21:22)
[2019-10-09] MEDS: MIDODRINE HCL 10 MG TAB PO SCH ×4 (02:20→17:02)
[2019-10-09] MEDS: ALBUMIN 25% 50 ML IV SCH ×3 (06:13→17:11)
[2019-10-09 07:30] LABS: INR 2.1 (0.9-1.1); Prothrombin Time 21.3 Seconds (9.0-12.0)
[2019-10-09 07:42] LABS: Albumin Level 2.1 gm/dl (3.4-5.0); BUN Creatinine Ratio 5.9 (10-20); Bilirubin Direct 2.5 mg/dl (0-0.2); Creatinine Clr Calc Pharmacy 20.2 ml/min; Est GFR (African American) 15.7; Est GFR (Non-African American) 13.5; Potassium 3.7 mmol/L (3.5-5.1)
[2019-10-09 07:51] LABS: Bilirubin,Total 3.4 mg/dl (0.2-1)
[2019-10-09] MEDS: PERPHENAZINE 2 MG TABLET PO SCH ×2 (09:13→20:24)
[2019-10-09] MEDS: MULTIVITAMIN TAB PO SCH (09:14)
[2019-10-09] MEDS: THIAMINE HCL 100 MG TAB PO SCH (09:14)
[2019-10-09] MEDS: FOLIC ACID 1 MG TAB PO SCH (09:14)
[2019-10-09] MEDS: dilTIAZem HCL 240 MG CAPCR PO SCH (09:14)
[2019-10-09] MEDS: INSULIN ASPART 100 UNITS/ML 3 ML PEN SC SCH ×4 (09:15→20:55)
[2019-10-09] MEDS: UMECLIDINIUM BROMIDE 62.5MCG/BLISTER 7 PUFFS/INHALER INH SCH (09:15)
--- NOTE | 2019-10-09 09:20 | Hospitalist Progress Note ---
Date of Service October 08, 2019 (late entry) Assessment & Plan (1) Abdominal pain: (2) Ascites: Pt is 54 y/o F with PMH schizoaffective disorder, anxiety, DM II, paroxysmal atrial fibrillation, HTN, COPD, h/o alcohol and drug use, cirrhosis presented to ER with complaint of abdominal pain, increased abdominal distention for several weeks. Patient reports not taking lactulose as directed secondary to causing diarrhea. Reports taking diuretics. In ER patient afebrile, PA: 100, R: 24 down to 19, BP: 102/66, 90-97% on room air. WBC: 10, H/H: 02/18, PLT: 95, AST: 24, ALT: 17, alk phos: 255, total bili: 3.4, lipase: 109 -In ER given Zofran, Dilaudid Recurrent ascites possible SBP, probable alcoholic cirrhosis, possible sepsis GI consult RE recurrent U GIB/ascites Diagnostic and therapeutic paracentesis - pt refused, discussed again and patient agreeable today (10/08/19) -underwent paracentesis, 4 L of ascitic fluid removed Received Vitamin K, FFP on admission to reverse coagulopathy prior to paracentesis Cultures, follow lactic acid - downtrended IV albumin for possible SBP (also for poss. hepatorenal syndrome) Ertapenem to cover possible SBP and aspiration pneumonia. Possible aspiration pneumonia Pt started on ertapenem (3) Anemia: H/H: 02/18 (Hgb 8.5 on 08/20) UGIB, gastritis on EGD from recent confinement, hx Eliquis intake for PAF hx, hemoglobin stable at baseline Coagulopathy secondary to liver disease IV PPI Stop Eliquis, anticoagulation may need to be stopped permanently given recurrent/persistent GI bleed Serial H&H, transfuse PRBC if hemoglobin less than 8 and or for symptomatic anem ia (hx TIAs as per records) GI consult RE recurrent U GIB/ascites Current Hgb stable 9.1 (10/07) (4) Acute renal failure (ARF): BUN: 17, Cr: 3.0 (history VENECIA in 07/2019 and Cr down trended to1.2 on 08/20/2019, prior baseline~0.8) In the setting of liver cirrhosis/ ascites Nephrology consulted Poss. hepatorenal syndrome Started pt on octreotide, midodrine, IV albumin therapy (5) Hyponatremia: Na: 125, Was 133 on 08/20/2019 Hypervolemic hyponatremia poss. 2/2 hepatorenal syndrome Nephrology consulted- started pt on midodrine, octreotide, IV albumin therapy Likely try diuresis tmrw Patient declined all medical therapy, then finally agreeable later today (10/07) (6) Hypokalemia: K: 3.4 on admission likely 2/2 emesis , poor p.o. intake, diuretics replete and monitor (7) Hypomagnesemia: Magnesium: 1.1 on admission - replete and monitor (8) DM type 2 (diabetes mellitus, type 2): HbA1c: 4.9% in 07/2019 ISS BG goal [id number] (9) Paroxysmal atrial fibrillation: On Eliquis - hold d/t poss. GI bleed (10) COPD (chronic obstructive pulmonary disease): Chronic respiratory failure secondary to COPD on home O2, pulmonary status at baseline Current wheezing. Patient reports chronic wheezing Duonebs prn (11) HTN (hypertension): On diltiazem at home HTN, BP on the lower side hx TIAs as per records (12) Schizoaffective disorder: On perphenazine at home but has not taken medication in past 1-2 weeks Psychiatry consulted, appreciate their input Pt refuses medications, labs etc., also initially refused procedure/paracentesis Psychiatry contacted and pt's case discussed. Pt more agreeable now, started on medications and underwent paracentesis later today (10/07) History of ongoing cocaine/alcohol/tobacco abuse DT precautions Nicotine patch PRN PCP follow up after d/c: Follows with Dr. Rosario for routine care. Admission and Anticipated Discharge Date Admission Date: October 06, 2019 Subjective This morning, patient again unfortunately was not cooperative, refused labs and medications, refused talking to GI PHARMACY CASHIER, and procedure/paracentesis. Psychiatry liaison was notified as well. Later after pt rested I discussed with her the severity of her health condition, severe liver disease and kidney disease, and patient then agreeable to medical treatment. She also agreed to paracentesis. Patient requested female provider to go with her for the procedure which was arranged, psychiatry liaison was notified as well. Patient then underwent paracentesis, 4 L of ascitic fluid was removed. GI provider discussed possibility of TIPS procedure with the patient, at that time patient declined this procedure or any transfer to other Medical Center so she could have the procedure done. I then discussed with patient her medical condition in the presence of our heel caser, Mrs. Dixon Persaud, we discussed possibility of TIPS procedure and patient was then agreeable. Agreed that if current medical management will not work for her, will try transfer for possible TIPS. Patient otherwise denies any fevers, chills, chest pain, shortness of breath, increased abdominal pain, nausea or vomiting. She feels edematous and feels that her abdomen is swollen. Review of Systems Review of Systems: All systems reviewed & are unremarkable except as noted in HPI & below Constitutional: no fever and no chills Respiratory: no cough and no dyspnea Cardiovascular: + edema (LE and abdomen); no chest pain and no palpitations Gastrointestinal: + abdominal pain; no nausea, no vomiting and no hematemesis Physical Exam 2 Physical Exam: General: middle aged female sitting up in bed, in no acute distress, obese Head: normocephalic, atraumatic Eyes: PERRL, EOM's intact, conjunctiva non-injected, +icterus ENT: normal inspection external ears, nose, moist mucous membranes Neck: supple, trachea midline, non-tender Lungs: no respiratory distress, + mild diffuse wheezing, no rhonchi/rales CV: RRR, no murmur, no JVD, 1-2+ pretibial edema Abd: normal BS, distended, edematous, +mild tenderness to palpation at suprapubic region : Narvaez catheter placed Ext: no cyanosis, no calf tenderness, 1+ LE edema, moves extremities spontaneously Neuro/Psych: alert, speech fluent but sometimes tangential, no facial asymmetry, no focal deficits noted, moves extremities spontaneously Skin: warm, dry; +some excoriations to bilateral extremities Results & Data Results & Data ([facility]) Vital Signs (Past 12 Hours) Vital Signs Temp Pulse Pulse Pulse Resp BP BP 10/09/19 07:29 37.1 C 78 18 94/57 L 10/09/19 03:13 37 C 73 18 97/53 L 10/09/19 01:50 88/54 L 10/08/19 23:30 72 10/08/19 22:36 36.8 C 72 18 88/42 L Pulse Ox 10/09/19 07:29 90 10/09/19 03:13 97 04/11/20 01:50 10/08/19 23:30 10/08/19 22:36 92 (1) Abdominal pain Abdominal location: epigastric Qualified Code(s): R10.13 - Epigastric pain (2) Ascites Ascites type: other type Qualified Code(s): R18.8 - Other ascites (3) Anemia Anemia type: unspecified type Qualified Code(s): D64.9 - Anemia, unspecified (4) Acute renal failure (ARF) Acute renal failure type: unspecified Qualified Code(s): N17.9 - Acute kidney failure, unspecified (5) DM type 2 (diabetes mellitus, type 2) Diabetes mellitus complication status: with other specified complication Diabetes mellitus mcfp insulin use: unspecified mcfp insulin use status Qualified Code(s): E11.69 - Type 2 diabetes mellitus with other specified complication (6) HTN (hypertension) Hypertension type: unspecified Qualified Code(s): I10 - Essential (primary) hypertension (7) Schizoaffective disorder Schizoaffective disorder type: unspecified Qualified Code(s): F25.9 - Schizoaffective disorder, unspecified
[2019-10-09] MEDS: PANTOprazole 40 MG in SYRINGE 0 ML IV SCH ×2 (09:43→20:24)
[2019-10-09 09:52] LABS: Hematocrit (blood only) 20.5 % (37-47); Hemoglobin 7.2 g/dL (12.0-16.0)
[2019-10-09] MEDS ORDERED: SODIUM CHLORIDE 0.9% 250 ML IV PRN ×2 (10:51→10:52)
[2019-10-09] MEDS: ERTAPENEM SODIUM 500 MG in SODIUM CHLORIDE 0.9% 50 ML IV SCH (14:31)
[2019-10-09] MEDS ORDERED: LIDOCAINE 4% CREAM 15 GM TUBE EXT PRN (14:48)
[2019-10-09] MEDS: ALBUT/IPRATROP 3MG/0.5MG NEB 3 ML VIAL NEB PRN (15:04)
[2019-10-09] MEDS ORDERED: FUROSEMIDE 80 MG in SYRINGE 0 ML IV ONE (15:45)
[2019-10-09 15:49] LABS: Hematocrit (blood only) 25.4 % (37-47)
--- NOTE | 2019-10-09 16:26 | Progress Notes ---
DATE: 10/09/2019 SUBJECTIVE: Overnight, the patient did have abdominal paracentesis and 4 liters of fluid was removed. Her psychiatric condition is fluctuating. No new symptoms. She is not making a lot of urine. She is still on the triple therapy for hepatorenal syndrome. OBJECTIVE: VITAL SIGNS: Blood pressure is 123/79, pulse rate 63, temperature 37 degrees Celsius, 92% on room air. HEENT: Mucous membranes moist. NECK: Supple. No jugular venous distention. CHEST: Bilateral decreased breath sounds, poor inspiratory effort. CARDIOVASCULAR: S1 and S2, regular. ABDOMEN: Distended with ascites which is massive. EXTREMITIES: Shows bilateral lower extremity edema, pitting type, 3-4+. LABORATORY TESTS: From this morning reviewed and shows hemoglobin 7.2, hematocrit 20.5. Sodium 124, potassium 3.7, chloride 94, BUN 21, creatinine 3.59. Her MELD score is still 35. ASSESSMENT AND PLAN: A 54-year-old female with advanced decompensated cirrhosis, now presenting with increasing ascites and lower extremity edema with acute renal failure and hyponatremia. 1. Acute renal failure. This is in the setting of advanced decompensated cirrhosis, most likely hepatorenal syndrome. Urine sediment is bland with a very low urine sodium consistent with hepatorenal syndrome. At this time, I would continue with the triple therapy as has been ordered. She is definitely not volume depleted. If anything, she has clear evidence of hypervolemia. 2. Hyponatremia--This is hypervolemic hyponatremia iin the setting of liver cirrhosis and acute renal failure. Continue triple therapy for now and will also add Lasix 80 mg IV once to see how much she responds to the Lasix. MTDD
[2019-10-09] MEDS ORDERED: GABAPENTIN 100 MG CAP PO SCH (23:30)
[2019-10-10 01:08] LABS: Hematocrit (blood only) 26.1 % (37-47)
--- NOTE | 2019-10-10 05:03 | Hospitalist Progress Note ---
Date of Service October 09, 2019 (late entry) Assessment & Plan (1) Abdominal pain: (2) Ascites: Pt is 54 y/o F with PMH schizoaffective disorder, anxiety, DM II, paroxysmal atrial fibrillation, HTN, COPD, h/o alcohol and drug use, cirrhosis presented to ER with complaint of abdominal pain, increased abdominal distention for several weeks. Patient reports not taking lactulose as directed secondary to causing diarrhea. Reports taking diuretics. In ER patient afebrile, PA: 100, R: 24 down to 19, BP: 102/66, 90-97% on room air. WBC: 10, H/H: 02/18, PLT: 95, AST: 24, ALT: 17, alk phos: 255, total bili: 3.4, lipase: 109 -In ER given Zofran, Dilaudid Recurrent ascites possible SBP, probable alcoholic cirrhosis, possible sepsis GI consult RE recurrent U GIB/ascites Diagnostic and therapeutic paracentesis - pt refused, discussed again and patient agreeable today (10/08/19) -underwent paracentesis, 4 L of ascitic fluid removed Received Vitamin K, FFP on admission to reverse coagulopathy prior to paracentesis Cultures, follow lactic acid - downtrended IV albumin for possible SBP (also for poss. hepatorenal syndrome) Ertapenem to cover possible SBP and aspiration pneumonia. Possible aspiration pneumonia Pt started on ertapenem (3) Anemia: H/H: 02/18 (Hgb 8.5 on 08/20) UGIB, gastritis on EGD from recent confinement, hx Eliquis intake for PAF hx, hemoglobin stable at baseline Coagulopathy secondary to liver disease IV PPI Stop Eliquis, anticoagulation may need to be stopped permanently given recurrent/persistent GI bleed Serial H&H, transfuse PRBC if hemoglobin less than 8 and or for symptomatic anem ia (hx TIAs as per records) GI consult RE recurrent U GIB/ascites Hgb stable 9.1 yesterday (10/07), now down to 7.2 again (10/08) - 1 unit of pRBC given, Hgb improved to 9.0 (10/08) - pt denies any blood in the stool, melena, hematemesis -pt underwent paracentesis yesterday (10/07), no bleeding noted from procedure site, abd. seems smaller, less distended, less edematous - recheck Hgb again in 6 hrs - cont. to closely monitor (4) Acute renal failure (ARF): BUN: 17, Cr: 3.0 (history [facility]ECIA in 07/2019 and Cr down trended to1.2 on 08/20/2019, prior baseline~0.8) In the setting of liver cirrhosis/ ascites Nephrology consulted Poss. hepatorenal syndrome Started pt on octreotide, midodrine, IV albumin therapy Pt initially refused treatment, now receiving the medication, however renal function does not seem to improve -plan to start IV lasix today (10/08/2018) (5) Hyponatremia: Na: 125, Was 133 on 08/20/2019 Hypervolemic hyponatremia poss. 2/2 hepatorenal syndrome Nephrology consulted- started pt on midodrine, octreotide, IV albumin therapy Patient declined all medical therapy, then finally agreeable later today (10/07) -plan to start IV lasix today (10/08/2018) (6) Hypokalemia: K: 3.4 on admission likely 2/2 emesis , poor p.o. intake, diuretics replete and monitor (7) Hypomagnesemia: Magnesium: 1.1 on admission - replete and monitor (8) DM type 2 (diabetes mellitus, type 2): HbA1c: 4.9% in 07/2019 ISS BG goal [id number] (9) Paroxysmal atrial fibrillation: On Eliquis - hold d/t poss. GI bleed (10) COPD (chronic obstructive pulmonary disease): Chronic respiratory failure secondary to COPD on home O2, pulmonary status at baseline Current wheezing. Patient reports chronic wheezing Duonebs prn (11) HTN (hypertension): On diltiazem at home HTN, BP on the lower side hx TIAs as per records (12) Schizoaffective disorder: On perphenazine at home but has not taken medication in past 1-2 weeks Psychiatry consulted, appreciate their input Pt refused medications, labs etc., also initially refused procedure/paracentesis Psychiatry contacted and pt's case discussed. Pt more agreeable now, started on medications and underwent paracentesis later yesterday (10/07) History of ongoing cocaine/alcohol/tobacco abuse DT precautions Nicotine patch PRN PCP follow up after d/c: Follows with Dr. Rosario for routine care. Admission and Anticipated Discharge Date Admission Date: October 06, 2019 Subjective Today patient sitting up in bed, in no acute distress, underwent paracentesis yesterday, with removal of 4 L of acetic fluid. Denies any fevers, chills, chest pain, shortness of breath, abdominal pain, nausea or vomiting. Feels that her abdomen is now smaller and less distended however still quite edematous. Hemoglobin down to 7.2. Will transfuse and will continue to closely monitor. Patient denies any blood in the stool, denies any increased abdominal pain, abdomen less distended after the procedure, no bleeding noted from the procedure site. INR is however elevated at 2.1. Review of Systems Review of Systems: All systems reviewed & are unremarkable except as noted in HPI & below Constitutional: no fever and no chills Respiratory: no cough and no dyspnea Cardiovascular: + edema (LE and abdomen (improved)); no chest pain and no palpitations Gastrointestinal: + abdominal pain; no nausea, no vomiting and no hematemesis Physical Exam Physical Exam: General: middle aged female sitting up in bed, in no acute distress, obese Head: normocephalic, atraumatic Eyes: PERRL, EOM's intact, conjunctiva non-injected, +icterus ENT: normal inspection external ears, nose, moist mucous membranes Neck: supple, trachea midline, non-tender Lungs: no respiratory distress, + mild diffuse wheezing, no rhonchi/rales CV: RRR, no murmur, no JVD, 1-2+ pretibial edema Abd: normal BS, distended, edematous, +mild tenderness to palpation : Narvaez catheter placed Ext: no cyanosis, no calf tenderness, 1+ LE edema, moves extremities spontaneously Neuro/Psych: alert, speech fluent but sometimes tangential, no facial asymmetry, no focal deficits noted, moves extremities spontaneously Skin: warm, dry; +some excoriations to bilateral extremities Results & Data Results & Data ([facility]) Vital Signs (Past 12 Hours) Vital Signs Temp Pulse Pulse Pulse Resp BP Pulse Ox 10/10/19 04:05 39.0 C H 81 18 102/64 90 10/09/19 23:20 37.8 C H 82 20 118/71 94 10/09/19 22:53 75 10/09/19 19:15 36.9 C 70 18 121/77 94 (1) Acute renal failure (ARF) Acute renal failure type: unspecified Qualified Code(s): N17.9 - Acute kidney failure, unspecified (2) DM type 2 (diabetes mellitus, type 2) Diabetes mellitus complication status: with other specified complication Diabetes mellitus termite control service representative insulin use: unspecified fpc insulin use status Qualified Code(s): E11.69 - Type 2 diabetes mellitus with other specified complication (3) Anemia Anemia type: unspecified type Qualified Code(s): D64.9 - Anemia, unspecified (4) Ascites Ascites type: other type Qualified Code(s): R18.8 - Other ascites (5) Schizoaffective disorder Schizoaffective disorder type: unspecified Qualified Code(s): F25.9 - Schizoaffective disorder, unspecified (6) Abdominal pain Abdominal location: epigastric Qualified Code(s): R10.13 - Epigastric pain (7) HTN (hypertension) Hypertension type: unspecified Qualified Code(s): I10 - Essential (primary) hypertension
[2019-10-10 05:36] LABS: INR 2.2 (0.9-1.1); Prothrombin Time 22.4 Seconds (9.0-12.0)
[2019-10-10 05:47] LABS: Albumin Level 2.2 gm/dl (3.4-5.0); BUN Creatinine Ratio 6.6 (10-20); Bilirubin,Total 6.5 mg/dl (0.2-1); Calcium 8.4 mg/dl (8.5-10.1); Creatinine Clr Calc Pharmacy 20.2 ml/min; Est GFR (African American) 15.7; Est GFR (Non-African American) 13.6; Potassium 3.8 mmol/L (3.5-5.1); Total Protein 6.3 gm/dl (6.4-8.2)
[2019-10-10] MEDS: OCTREOTIDE ACETATE 500 MCG in 0.9 % SODIUM CHLORIDE 100 ML IV SCH ×2 (06:30→16:36)
[2019-10-10 07:23] LABS: Bilirubin Direct 4.4 mg/dl (0-0.2)
--- NOTE | 2019-10-10 07:43 | Hospitalist Progress Note ---
Date of Service October 10, 2019 Assessment & Plan (1) Abdominal pain: (2) Ascites: Pt is 54 y/o F with PMH schizoaffective disorder, anxiety, DM II, paroxysmal atrial fibrillation, HTN, COPD, h/o alcohol and drug use, cirrhosis presented to ER with complaint of abdominal pain, increased abdominal distention for several weeks. Patient reports not taking lactulose as directed secondary to causing diarrhea. Reports taking diuretics. In ER patient afebrile, PA: 100, R: 24 down to 19, BP: 102/66, 90-97% on room air. WBC: 10, H/H: 02/18, PLT: 95, AST: 24, ALT: 17, alk phos: 255, total bili: 3.4, lipase: 109 Recurrent ascites possible SBP, probable alcoholic cirrhosis, possible sepsis GI consult RE recurrent U GIB/ascites Diagnostic and therapeutic paracentesis - pt refused initially, discussed again and patient agreeable, underwent paracentesis on (10/08/2019), 4 L of ascitic fluid removed Received Vitamin K, FFP on admission to reverse coagulopathy prior to paracentesis Cultures, follow lactic acid - downtrended IV albumin for possible SBP (also for poss. hepatorenal syndrome) Ertapenem to cover possible SBP and aspiration pneumonia. Asct. fluid WBC 102, not c/w SBP however pt received ertapenem prior to paracentesis Worsening/ Acute liver failure MELD score 35 on admission, now 37 Increased T bili to 6.5 , direct bili 4.4 , INR 2.2 today (10/09) SAAG 1.6, consistent with portal hypertension likely cause of ascites Per prior GI consult, recommend possible TIPS procedure by IR, if her liver/renal failure does not improve with current therapy/triple therapy for hepatorenal syndrome Currently patient is more somnolent today, and given her current labs, concern for acute liver failure She is also more edematous, with increased ascites Seen by nephrology today, given IV Lasix 80 mg Discussed with gastroenterology her elevated MELD score, T bili/INR, worsening mental status. Dr. Carlson, recommended liver ultrasound. MRCP could not be obtained today. Liver ultrasound however did not show ductal dilatation. It a lso showed an equivocal thrombus within the main portal vein and suspected hepatofugal flow within the left portal vein. Dr. Carlson also recommended to discuss this with the tertiary center such as [facility]. Fever Patient febrile overnight, T-max 39C -Source of fever currently unclear -Patient has been afebrile during this admission, and no reported fever prior to admission -Concern for SBP, cholangitis, other abdominal etiology, culture from ascitic fluid from paracentesis is negative -T bili elevated however there is no ductal dilatation on liver ultrasound -Blood cultures obtained, UA/urine culture was not obtained due to incontinence -Chest x-ray consistent with mild vascular/interstitial prominence, no evidence of focal pulmonary consolidation -CT abdomen pelvis, without any evidence of abdominal/pelvic hematoma or free air, no evidence of renal ureteral or bladder calculi, positive for cholelithiasis, moderate ascites, cirrhosis and hepatic steatosis -Patient has been on ertapenem,will add daptomycin (3) Anemia: H/H: 02/18 (Hgb 8.5 on 08/20) UGIB, gastritis on EGD from recent confinement, hx Eliquis intake for PAF hx, hemoglobin stable at baseline Coagulopathy secondary to liver disease IV PPI Stop Eliquis, anticoagulation may need to be stopped permanently given recurrent/persistent GI bleed Serial H&H, transfuse PRBC if hemoglobin less than 8 and or for symptomatic anemia (hx TIAs as per records) GI consult RE recurrent U GIB/ascites - Hgb down to 7.5 on 10/06 - received 1 unit of pRBC - Hgb stable 9.1 on (10/07), then down to 7.2 again (10/08) - 1 unit of pRBC given, Hgb improved to 9.0 (10/08) - pt denies any blood in the stool, melena, hematemesis - pt underwent paracentesis on (10/07), no bleeding noted from procedure site, abd. seems smaller, less distended, less edematous on (10/08) - recheck Hgb again in 6 hrs, stable 9.0 - CT abdomen pelvis negative for any abdominal or pelvic hematoma - cont. to closely monitor (4) Acute renal failure (ARF): BUN: 17, Cr: 3.0 on admission (history VENECIA in 07/2019 and Cr down trended to 1.2 on 08/20/2019, prior baseline~0.8) In the setting of liver cirrhosis/ ascites Nephrology consulted Poss. hepatorenal syndrome Started pt on octreotide, midodrine, IV albumin therapy Pt initially refused treatment, now receiving the medication, however renal function not improving, current Cr 3.58 (10/09) -started IV lasix (10/08/2018) (5) Hyponatremia: Na: 125 on admission, was 133 on 08/20/2019 Hypervolemic hyponatremia poss. 2/2 hepatorenal syndrome Nephrology consulted- started pt on midodrine, octreotide, IV albumin therapy Patient declined all medical therapy, then finally agreeable later on (10/07) - started IV lasix today (10/08/2018) (6) Hypokalemia: K: 3.4 on admission likely 2/2 emesis , poor p.o. intake, diuretics replete and monitor (7) Hypomagnesemia: Magnesium: 1.1 on admission - replete and monitor (8) DM type 2 (diabetes mellitus, type 2): HbA1c: 4.9% in 07/2019 ISS BG goal [id number] (9) Paroxysmal atrial fibrillation: On Eliquis - hold d/t poss. GI bleed (10) COPD (chronic obstructive pulmonary disease): Chronic respiratory failure secondary to COPD on home O2, pulmonary status at baseline on admission Current mild wheezing. Patient reports chronic wheezing Duonebs prn Possible aspiration pneumonia - hx of emesis reported on admission - Pt started on ertapenem (11) HTN (hypertension): On diltiazem at home HTN, BP on the lower side hx TIAs as per records (12) Schizoaffective disorder: On perphenazine at home but has not taken medication in past 1-2 weeks Psychiatry consulted, appreciate their input Pt refused medications, labs etc., also initially refused procedure/paracentesis Psychiatry contacted and pt's case discussed. Pt more agreeable now, started on medications and underwent paracentesis on (10/07) History of ongoing cocaine/alcohol/tobacco abuse DT precautions Nicotine patch PRN PCP follow up after d/c: Follows with Dr. Rosario for routine care. Dispo: Given patient's acute/worsening renal failure, and renal failure, likely secondary to hepatorenal syndrome, patient's case discussed with physicians at tertiary medical center - [facility] in [facility], and patient was accepted to their care. Admission and Anticipated Discharge Date Admission Date: October 06, 2019 Subjective Patient appears more sleepy today, however arousable, and answers questions appropriately. Denies any fevers, chills, chest pain, shortness of breath, reports abdominal distention and discomfort. Informed her that her liver function was getting worse today, and that I would be contacting gastroenterology, and nephrology and also possibly [facility]. Patient is in agreement with that. Patient's T bili today was elevated to 6.5, direct bili 4.4, MELD score elevated at 37, up from 35. Patient had fever 39C overnight, per nursing staff, the patient's room was very hot ??, Currently patient is afebrile. Patient has been afebrile her entire hospital stay, and did not have fever prior to admission either. Discussed with pharmacy, coverage of ertapenem, and additional antibiotic coverage. Added daptomycin, to cover for enterococcus. ?? Possible cholangitis? Patient underwent paracentesis, on October 07, SAAG = 1.6, consistent with portal hypertension cause of ascites, WBC 102 not consistent with SBP, however patient did receive ertapenem prior to paracentesis. Yesterday (10/09/2019) patient required blood transfusion, as her hemoglobin was 7.2. Currently hemoglobin is stable at 9. WBC is not elevated. Obtained CT abdomen pelvis, no evidence of abdominal or pelvic hematoma. No evidence of free air. Discussed with gastroenterology, Dr. Carlson, who also recommended liver ultrasound. MRCP could not be obtained today. Liver ultrasound however did not show ductal dilatation. It also showed an equivocal thrombus within the main portal vein and suspected hepatofugal flow within the left portal vein. Per prior discussion with gastroenterology, they recommended TIPS procedure and possible transfer to tertiary center if her liver/renal function not improving. Dr. Carlson also recommended to discuss this with the tertiary center such as [facility]. Review of Systems Review of Systems: All systems reviewed & are unremarkable except as noted in HPI & below Constitutional: no fever and no chills Respiratory: no cough and no dyspnea Cardiovascular: + edema (abdomen and LE b/l); no chest pain and no palpitations Gastrointestinal: + abdominal pain (abdominal distention); no nausea and no vomiting Physical Exam Physical Exam: General: middle aged female lying in bed, in no acute distress Head: normocephalic, atraumatic Eyes: PERRL, EOM's intact, conjunctiva non-injected, +icterus ENT: normal inspection external ears, nose, moist mucous membranes Neck: supple, trachea midline, non-tender Lungs: no respiratory distress, + mild rhonchi/crackles, +mild wheezing CV: RRR, no murmur, 2-3+ LE edema b/l Abd: normal BS, distended, edematous, +mild tenderness to palpation Ext: no cyanosis, no calf tenderness, 2-3+ LE edema b/l, moves extremities spontaneously Neuro/Psych: alert, speech fluent but sometimes tangential, no facial asymmetry, no focal deficits noted, moves extremities spontaneously Skin: warm, dry; + some excoriations to bilateral extremities Results & Data Results & Data ([facility]) Vital Signs (Past 12 Hours) Vital Signs Temp Pulse Pulse Pulse Resp BP Pulse Ox 10/10/19 07:17 37.6 C H 70 20 96/61 L 90 10/10/19 06:23 39.0 C H 10/10/19 05:49 38.5 C H 10/10/19 04:05 39.0 C H 81 18 102/64 90 10/09/19 23:20 37.8 C H 82 20 118/71 94 10/09/19 22:53 75 Laboratory Results 10/10/19 10/10/19 10/10/19 Range/Units 07:30 05:10 05:10 Hgb (12.0-16.0) g/dL Hct (37-47) % PT 22.4 H (9.0-12.0) Seconds INR 2.2 H (0.9-1.1) Sodium 124 L (136-145) mmol/L Potassium 3.8 (3.5-5.1) mmol/L Chloride 97 L (98-107) mmol/L Carbon Dioxide 23 (21-32) mmol/L Anion Gap 4.0 (3-11) BUN 24 H (7-18) mg/dl Creatinine 3.58 H (0.6-1.2) mg/dl Est Cr Clr Drug Dosing 20.2 ml/min Est GFR ( Amer) 15.7 Est GFR (Non-Af Amer) 13.6 BUN/Creatinine Ratio 6.6 L (10-20) Glucose 112 H (70-99) mg/dl POC Glucose 127 H (70-99) mg/dl Calcium 8.4 L (8.5-10.1) mg/dl Total Bilirubin 6.5 H D (0.2-1) mg/dl Direct Bilirubin 4.4 H D (0-0.2) mg/dl AST 42 H (15-37) U/L ALT 10 L (12-78) U/L Alkaline Phosphatase 143 H (45-117) U/L Total Protein 6.3 L (6.4-8.2) gm/dl Albumin 2.2 L (3.4-5.0) gm/dl Blood Type Antibody Screen Crossmatch 10/10/19 10/09/19 10/09/19 Range/Units 01:00 19:56 16:49 Hgb 9.0 L (12.0-16.0) g/dL Hct 26.1 L (37-47) % PT (9.0-12.0) Seconds INR (0.9-1.1) Sodium (136-145) mmol/L Potassium (3.5-5.1) mmol/L Chloride (98-107) mmol/L Carbon Dioxide (21-32) mmol/L Anion Gap (3-11) BUN (7-18) mg/dl Creatinine (0.6-1.2) mg/dl Est Cr Clr Drug Dosing ml/min Est GFR ( Amer) Est GFR (Non-Af Amer) BUN/Creatinine Ratio (10-20) Glucose (70-99) mg/dl POC Glucose 164 H 150 H (70-99) mg/dl Calcium (8.5-10.1) mg/dl Total Bilirubin (0.2-1) mg/dl Direct Bilirubin (0-0.2) mg/dl AST (15-37) U/L ALT (12-78) U/L Alkaline Phosphatase (45-117) U/L Total Protein (6.4-8.2) gm/dl Albumin (3.4-5.0) gm/dl Blood Type Antibody Screen Crossmatch 10/09/19 10/09/19 10/09/19 Range/Units 15:40 11:48 06:59 Hgb 9.0 L 7.2 L (12.0-16.0) g/dL Hct 25.4 L 20.5 L* (37-47) % PT (9.0-12.0) Seconds INR (0.9-1.1) Sodium (136-145) mmol/L Potassium (3.5-5.1) mmol/L Chloride (98-107) mmol/L Carbon Dioxide (21-32) mmol/L Anion Gap (3-11) BUN (7-18) mg/dl Creatinine (0.6-1.2) mg/dl Est Cr Clr Drug Dosing ml/min Est GFR ( Amer) Est GFR (Non-Af Amer) BUN/Creatinine Ratio (10-20) Glucose (70-99) mg/dl POC Glucose 128 H (70-99) mg/dl Calcium (8.5-10.1) mg/dl Total Bilirubin (0.2-1) mg/dl Direct Bilirubin (0-0.2) mg/dl AST (15-37) U/L ALT (12-78) U/L Alkaline Phosphatase (45-117) U/L Total Protein (6.4-8.2) gm/dl Albumin (3.4-5.0) gm/dl Blood Type Antibody Screen Crossmatch 10/09/19 10/06/19 Range/Units 06:53 21:41 Hgb (12.0-16.0) g/dL Hct (37-47) % PT (9.0-12.0) Seconds INR (0.9-1.1) Sodium (136-145) mmol/L Potassium (3.5-5.1) mmol/L Chloride (98-107) mmol/L Carbon Dioxide (21-32) mmol/L Anion Gap (3-11) BUN (7-18) mg/dl Creatinine (0.6-1.2) mg/dl Est Cr Clr Drug Dosing ml/min Est GFR ( Amer) Est GFR (Non-Af Amer) BUN/Creatinine Ratio (10-20) Glucose (70-99) mg/dl POC Glucose (70-99) mg/dl Calcium (8.5-10.1) mg/dl Total Bilirubin 3.4 H (0.2-1) mg/dl Direct Bilirubin (0-0.2) mg/dl AST (15-37) U/L ALT (12-78) U/L Alkaline Phosphatase 146 H (45-117) U/L Total Protein 6.0 L D (6.4-8.2) gm/dl Albumin (3.4-5.0) gm/dl Blood Type O Positive Antibody Screen NEGATIVE Crossmatch See Detail Medications Administered Current Inpatient Medications Acetaminophen (Tylenol) 325 mg PO Q6H PRN PRN Reason: Pain or Fever Stop: 11/05/19 23:17 Last Admin: 10/10/19 04:52 Dose: 325 mg Documented by: Hydrocodone Bitart/Acetaminophen ([place] 5/325) 1 tab PO QID PRN PRN Reason: Pain Stop: 10/20/19 20:33 Last Admin: 10/08/19 12:42 Dose: 1 tab Documented by: Albuterol (Duoneb) 3 ml NEB QIDR PRN PRN Reason: wheezing Stop: 11/07/19 06:59 Last Admin: 10/09/19 15:04 Dose: 3 ml Documented by: Dextrose (Dextrose 50%) 25 - 50 ml IV UD PRN; Protocol PRN Reason: Hypoglycemia Protocol Stop: 11/06/19 04:29 Diltiazem HCl (Cardizem Cd) 240 mg PO QAM CARLOS Stop: 11/08/19 08:59 Last Admin: 10/09/19 09:14 Dose: Not Given Documented by: Ertapenem (Consult) 1 ea N/A UD PRN PRN Reason: Consult Stop: 11/05/19 23:28 Folic Acid (Folvite) 1 mg PO DAILY CARLOS Stop: 11/06/19 08:59 Last Admin: 10/09/19 09:14 Dose: 1 mg Documented by: Glucagon (Glucagen) 1 mg IM UD PRN; Protocol PRN Reason: Hypoglycemia Protocol Stop: 11/06/19 04:29 Glucose (Glucose 40%) 15 - 30 gm PO UD PRN; Protocol PRN Reason: Hypoglycemia Protocol Stop: 11/06/19 04:29 Glucose (Dex4 Glucose) 4 - 8 tabs PO UD PRN; Protocol PRN Reason: Hypoglycemia Protocol Stop: 11/06/19 04:29 Hydromorphone HCl (Dilaudid) 0.25 mg IV Q4H PRN PRN Reason: Pain Stop: 10/20/19 23:17 Promethazine HCl 12.5 mg/ (Sodium Chloride) 50.5 mls @ 202 mls/hr IV Q6H PRN PRN Reason: Nausea And Vomiting Stop: 11/05/19 23:17 Ertapenem 500 mg/ Sodium (Chloride) 55 mls @ 110 mls/hr IV Q24H [facility] Stop: 10/14/19 21:59 Last Infusion: 10/09/19 15:05 Dose: Infused Documented by: Lorazepam (Ativan) 2 mg in 4 mls @ 4 mls/min IV UD PRN; Protocol PRN Reason: EtOH Withdrawl AWSS Score 8,9 Stop: 11/05/19 23:26 Lorazepam (Ativan) 3 mg in 6 mls @ 4 mls/min IV ONCE PRN; Protocol PRN Reason: EtOH Withdrawl AWSS Score >=10 Stop: 11/05/19 23:26 Lorazepam (Ativan) 1 mg in 2 mls @ 2 mls/min IV UD PRN; Protocol PRN Reason: EtOH Withdrawl AWSS Score 6,7 Stop: 11/05/19 23:26 Octreotide Acetate 500 mcg/ (Sodium Chloride) 105 mls @ 10.5 mls/hr IV .Q10H [facility] Stop: 11/06/19 10:29 Last Admin: 10/10/19 06:30 Dose: 50 mcg/hr, 10.5 mls/hr Documented by: Pantoprazole Sodium 40 mg/ (Syringe) 10 mls @ 5 mls/min IV BID@0900,2100 [facility] Stop: 11/07/19 20:59 Last Admin: 10/09/19 20:24 Dose: 5 mls/min Documented by: Insulin Aspart (Novolog Flexpen) 0 units SC ACHS [facility] Stop: 11/06/19 05:59 Last Admin: 10/09/19 20:55 Dose: Not Given Documented by: Ipratropium Anderson (Atrovent 0.02% 0.5mg/2.5ml) 0.5 mg INH Q4H PRN PRN Reason: SOB/WHEEZING Stop: 11/05/19 23:17 Levalbuterol HCl (Xopenex 1.25mg/0.5ml Neb) 1.25 mg INH Q4H PRN PRN Reason: SOB/WHEEZING Stop: 11/05/19 23:17 Lidocaine (Anecream 4% Cream) 1 appln EXT TID PRN PRN Reason: Mild Pain Stop: 11/08/19 14:47 Midodrine (Proamatine) 10 mg PO TID@0800,1200,1700 [facility] Stop: 11/08/19 01:59 Last Admin: 10/09/19 17:02 Dose: 10 mg Documented by: Miscellaneous (Carbohydrates For Hypoglycemia) 15 - 30 gm PO UD PRN PRN Reason: Hypoglycemia Treatment Stop: 11/06/19 04:29 Multivitamins (Multivitamin Tab) 1 tab PO QAM CARLOS Stop: 11/06/19 08:59 Last Admin: 10/09/19 09:14 Dose: 1 tab Documented by: Perphenazine (Trilafon) 8 mg PO BID [facility] Stop: 11/05/19 23:44 Last Admin: 10/09/19 20:24 Dose: 8 mg Documented by: Thiamine HCl (Vitamin B-1) 100 mg PO QAM [facility] Stop: 11/06/19 08:59 Last Admin: 10/09/19 09:14 Dose: 100 mg Documented by: Umeclidinium Anderson (Incruse Ellipta) 1 puffs INH DAILY [facility] Stop: 11/06/19 08:59 Last Admin: 10/09/19 09:15 Dose: 1 puffs Documented by: Zinc Acetate/Diphenhydramine (Benadryl Extra Strength) 1 appln EXT QID PRN PRN Reason: itchy skin Stop: 11/06/19 03:01 Last Admin: 10/07/19 04:54 Dose: 1 appln Documented by: (1) Acute renal failure (ARF) Acute renal failure type: unspecified Qualified Code(s): N17.9 - Acute kidney failure, unspecified (2) DM type 2 (diabetes mellitus, type 2) Diabetes mellitus complication status: with other specified complication Diabetes mellitus long term care administrator insulin use: unspecified chcf insulin use status Qualified Code(s): E11.69 - Type 2 diabetes mellitus with other specified complication (3) Anemia Anemia type: unspecified type Qualified Code(s): D64.9 - Anemia, unspecified (4) Ascites Ascites type: other type Qualified Code(s): R18.8 - Other ascites (5) Schizoaffective disorder Schizoaffective disorder type: unspecified Qualified Code(s): F25.9 - Schizoaffective disorder, unspecified (6) Abdominal pain Abdominal location: epigastric Qualified Code(s): R10.13 - Epigastric pain (7) HTN (hypertension) Hypertension type: unspecified Qualified Code(s): I10 - Essential (primary) hypertension
[2019-10-10] MEDS: MIDODRINE HCL 10 MG TAB PO SCH ×3 (07:56→16:37)
[2019-10-10] MEDS: dilTIAZem HCL 240 MG CAPCR PO SCH (07:57)
[2019-10-10] MEDS: UMECLIDINIUM BROMIDE 62.5MCG/BLISTER 7 PUFFS/INHALER INH SCH (07:57)
[2019-10-10] MEDS: FOLIC ACID 1 MG TAB PO SCH (07:57)
[2019-10-10] MEDS: PERPHENAZINE 2 MG TABLET PO SCH ×3 (07:58→21:03)
[2019-10-10] MEDS: PANTOprazole 40 MG in SYRINGE 0 ML IV SCH ×3 (07:58→21:04)
[2019-10-10] MEDS: MULTIVITAMIN TAB PO SCH (07:58)
[2019-10-10] MEDS: THIAMINE HCL 100 MG TAB PO SCH (07:58)
--- NOTE | 2019-10-10 08:08 | XRay Report ---
XR chest 1V portable CLINICAL HISTORY: fever COMPARISON STUDY: 10/06/2019 FINDINGS: The study is rotated. The heart is normal in size. There is mild vascular prominence withou t evidence of overt failure. There is no focal pulmonary consolidation. There are no significant pleu ral effusions.[ IMPRESSION: 1. Rotated study 2. Mild vascular/interstitial prominence 3. No evidence of focal pulmonary consolidation ACT 112: Negative or not required by law. Electronically signed by: Dawood Diaz M.D. 10/10/2019 8:07 AM
[2019-10-10] MEDS: INSULIN ASPART 100 UNITS/ML 3 ML PEN SC SCH ×4 (08:30→20:34)
--- NOTE | 2019-10-10 09:24 | CT Scan Report ---
CT SCAN OF THE ABDOMEN AND PELVIS WITHOUT CONTRAST CLINICAL HISTORY: Anemia. Fever. Recent paracentesis. COMPARISON STUDY: 10/06/2019 TECHNIQUE: CT scan of the abdomen and pelvis was performed from the lung bases to the proximal femurs . Images are reviewed in the axial, sagittal, and coronal planes. IV contrast was not administered fo r this examination. A dose lowering technique was utilized adhering to the principles of ALARA. CT DOSE: 1826.79 mGy.cm FINDINGS: Lower chest: There is a small left pleural effusion. There is a trace right pleural effusion. There a re basilar atelectatic changes. Liver: The liver has a cirrhotic morphology. There is hepatic steatosis. Gallbladder: Cholelithiasis Spleen: Normal in size and attenuation. Pancreas: Unremarkable. Adrenal glands: There is mild adrenal gland thickening similar to the prior study. Kidneys: No renal, ureteral, or bladder calculi are visualized. Bowel: There are no transition zones indicate bowel obstruction. There is no evidence of acute divert iculitis. The appendix is not visualized with certainty. Peritoneum: No free air is visualized. There is moderate ascites. Vasculature: The abdominal aorta is normal in course and caliber. Adenopathy: None. Pelvic viscera: The bladder, and pelvic viscera are unremarkable. Skeletal structures: No destructive osseous lesions are seen. There is generalized body edema, asymme tric involving the left lateral subcutaneous tissues. IMPRESSION: 1. Cirrhosis and hepatic steatosis 2. Moderate ascites 3. Cholelithiasis 4. No renal, ureteral, or bladder calculi identified 5. No evidence of bowel obstruction. No evidence of free air 6. No evidence of abdominal or pelvic hematoma. ACT 112: Negative or not required by law. Electronically signed by: Dawood Diaz M.D. 10/10/2019 9:23 AM
[2019-10-10] MEDS ORDERED: DAPTOMYCIN CONSULT ACTIVE PRN ×2 (10:08→10:11)
[2019-10-10 10:36] LABS: Hematocrit (blood only) 24.1 % (37-47); Hemoglobin 8.6 g/dL (12.0-16.0); Mean Corpuscular Hemoglobin 34.4 pg (25-34); Mean Corpuscular Volume 96.4 fL (80-100); RDW Coefficient of Variation 16.5 % (11.5-14.5); RDW Standard Deviation 57.4 fL (36.4-46.3); White Blood Count 8.97 K/uL (4.8-10.8)
[2019-10-10] MEDS: ALBUT/IPRATROP 3MG/0.5MG NEB 3 ML VIAL NEB PRN (10:55)
[2019-10-10 10:57] LABS: Mean Corpuscular Hgb Conc 35.7 g/dL (32-36); Platelet Count 91 K/uL (130-400); Platelet Estimate Decreased (Normal)
[2019-10-10] MEDS ORDERED: DAPTOmycin 350 MG in SYRINGE 0 ML IV SCH (11:00)
--- NOTE | 2019-10-10 14:23 | Ultrasound Report ---
BILIARY ULTRASOUND CLINICAL HISTORY: Abdominal pain, fever, elevated bilirubin. COMPARISON STUDY: CT scan dated 10/10/2019 FINDINGS: The liver is of increased echogenicity, finding suggesting hepatic steatosis. Liver has a c irrhotic morphology. No focal hepatic masses are visualized. The liver is enlarged measuring 24 cm. The gallbladder contains sludge and calculi. There is no right-sided hydronephrosis. There is ascites. There is no common bile duct dilatation. The common bile duct measured 5 mm. Pancreas is poorly visualized. No definite pancreatic lesions are evident. There is expected hepatofugal flow within the left portal vein. There is equivocal thrombus within th e main portal vein. IMPRESSION: 1. Gallbladder calculi and sludge. 2. No ductal dilatation 3. Cirrhotic morphology of the liver. Ascites. Hepatic steatosis. 4. Equivocal thrombus within the main portal vein. Suspected hepatofugal flow within the left portal vein ACT 112: Negative or not required by law. Electronically signed by: Dawood Diaz M.D. 10/10/2019 2:22 PM
[2019-10-10] MEDS ORDERED: FUROSEMIDE 80 MG in SYRINGE 0 ML IV STA (14:56)
[2019-10-10] MEDS ORDERED: RIFAXIMIN 550 MG TABLET PO STA (15:07)
[2019-10-10] MEDS ORDERED: FUROSEMIDE 80 MG in SYRINGE 0 ML IV ONE (15:09)
[2019-10-10] MEDS: ALBUMIN 25% 50 ML IV SCH ×3 (15:20→20:54)
[2019-10-10] MEDS: ERTAPENEM SODIUM 500 MG in SODIUM CHLORIDE 0.9% 50 ML IV SCH (16:02)
--- NOTE | 2019-10-10 16:10 | Progress Notes ---
DATE: 10/10/2019 NEPHROLOGY PROGRESS NOTE SUBJECTIVE: Overnight, no new issues. Her psychiatric condition is fluctuating. She still has lots of ascites and edema. She is not making a lot of urine, plus is not being measured accurately as she is incontinent. She is still on the triple therapy for the hepatorenal syndrome. OBJECTIVE: VITAL SIGNS: Most recent vital signs show a blood pressure of 91/52, pulse rate is 78, temperature afebrile, 94% on room air. HEENT: Mucous membrane is moist. NECK: Supple. CHEST: Bilateral decreased breath sounds, poor inspiratory effort. CARDIOVASCULAR: S1 and S2 regular. ABDOMEN: Distended, ascites, abdominal wall edema. EXTREMITIES: Show 3-4+ edema bilaterally. LABORATORY TEST: From this morning was reviewed in detail. Her MELD score is still rising. Hemoglobin this morning was 8.6 after getting blood transfusion yesterday. Platelet count 91,000. Renal function seems fairly stable compared to the day before. Creatinine is 3.58, BUN 24. Sodium 124, potassium 3.8, chloride 97. Liver function test is getting worse. ASSESSMENT AND PLAN: A 54-year-old female with advanced decompensated cirrhosis, now presenting with increasing ascites and lower extremity edema with acute renal failure and hyponatremia. 1. Acute renal failure: This is in the setting of advanced decompensated cirrhosis, most likely hepatorenal syndrome. Urine sediment was bland with a very low urine sodium consistent with hepatorenal syndrome. At this time, I would continue with the triple therapy as has been ordered. She is definitely not volume depleted. If anything, she has clear evidence of hypervolemia. 2. Hyponatremia: This is hypervolemic hyponatremia in the setting of liver cirrhosis and acute renal failure. Continue triple therapy for now. On top of that, I do want to give another dose of Lasix 80 mg IV today to see how much she responds to the Lasix. However, her overall situation is very complicated given very advanced liver failure with a rising MELD score. DORIAND
--- NOTE | 2019-10-10 18:32 | Discharge Summary ---
Date of Service October 10, 2019 Admission HPI Per Admitting Provider Pt is 54 y/o F with PMH schizoaffective disorder, anxiety, DM II, paroxysmal atrial fibrillation, HTN, COPD, h/o alcohol and drug use, cirrhosis presented to ER with complaint of abdominal pain for several weeks. Patient poor historian. patient states for the past several weeks has been noticing increased fluid accumulation to her abdomen and increased abdominal distention with associated abdominal discomfort worse to left upper abdomen. Patient also reports increased shortness of breath. She reports increased lower extremity edema. Patient reports itching to abdomen, back, buttocks, extremities. Patient admits to scratching skin and reports couple weeks ago noticed a fall landing on her leg and then thought she saw a white worm coming from skin of right posterior knee. Patient reports 1 month ago had epistaxis and hematuria. Patient denies any further epistaxis or hematuria. Reports nausea and decreased appetite. Patient also reports several episodes of vomiting daily past 1 to 2 months. Reports poor oral intake. Patient reports that she has not been taking her lactulose because it causes loose stools. She states that she has been taking her diuretics. Patient reports still smoking. States she has not been heavily drinking since last admission however has been having some "sips of beer here and there". Denies fever/chills, diaphoresis, hematemesis, melena, hematochezia, CARSON, dizziness, syncope, vision changes, neck pain, CP, palpitations, cough, sore throat, choking, otalgia, rhinorrhea, extremity weakness, dysuria, urinary frequency. Patient with recent hospitalization 07/2019 for VENECIA, anemia, hyponatremia, abdominal pain, found to have ascites. During that admission EGD was negative. Colonoscopy showed internal and external hemorrhoids. 08/18/2019 had paracentesis with removal of 2.6 L fluid. Had MRCP 08/19/2019: Small to moderate volume ascites, cholelithiasis, gallbladder wall thickening. Surgery has seen patient. GI saw patient patient was placed on diuretics. Admission Exam Per Admitting Provider General: no acute distress, obese Head: normocephalic, atraumatic Eyes: PERRL, EOM's intact, conjunctiva non-injected, +icterus ENT: normal inspection external ears, nose, mucous membranes dry Neck: supple, trachea midline, non-tender Lungs: no respiratory distress, + diffuse wheezing, no rhonchi/rales CV: RRR, no murmur, no JVD, 1-2+ pretibial edema Abd: normal BS, distended, +tenderness to palpation RUQ, epigastric and LUQ without rebound or guarding Ext: no cyanosis, no calf tenderness Neuro: A&O x 3, no focal deficits noted, normal affect Skin: warm, dry; +excoriations to bilateral extremities, buttock Principal Diagnosis Worsening / Acute liver failure Acute renal failure / hepatorenal syndrome Discharge Exam General: middle aged female lying in bed, in no acute distress Head: normocephalic, atraumatic Eyes: PERRL, EOM's intact, conjunctiva non-injected, +icterus ENT: normal inspection external ears, nose, moist mucous membranes Neck: supple, trachea midline, non-tender Lungs: no respiratory distress, + mild rhonchi/crackles, +mild wheezing CV: RRR, no murmur, 2-3+ LE edema b/l Abd: normal BS, distended, edematous, +mild tenderness to palpation Ext: no cyanosis, no calf tenderness, 2-3+ LE edema b/l, moves extremities spontaneously Neuro/Psych: more somnolent today but arousable and answers questions appropriately, speech fluent, no facial asymmetry, no focal deficits noted, moves extremities spontaneously Skin: warm, dry; + some excoriations to bilateral extremities Discharge Data Allergies Allergy/AdvReac Type Severity Reaction Status Date / Time haloperidol Allergy Severe TONGUE Verified 08/17/19 20:34 SWELLING insulin lispro Allergy Intermediate HIVES Verified 08/17/19 20:34 phenol Allergy Intermediate HIVES Verified 08/17/19 20:34 citalopram Allergy Mild ITCHING Verified 08/17/19 20:34 sulfamethoxazole Allergy Mild RASH Verified 08/17/19 20:34 trimethoprim Allergy Mild RASH Verified 08/17/19 20:34 Bactrim Allergy Unknown RASH Verified 12/01/17 16:09 Penicillins Allergy Unknown Hives Verified 08/17/19 20:34 pregabalin [From Lyrica] AdvReac Severe SUICIDAL Verified 08/17/19 20:34 topiramate AdvReac Severe SEIZURE Verified 08/17/19 20:34 LIKE ACTIVITY oxycodone AdvReac Mild ITCH Verified 02/18/20 20:34 Margarine Allergy Severe RASH Uncoded 08/17/19 20:34 Consultations 10/06/19 20:18 ED Decision to Admit Stat 10/06/19 23:18 Consult Case Management - Discharge Planning Routine Consult Gastroenterology Routine Consult Nephrology Routine 10/07/19 05:09 Consult Psychiatry Routine 10/10/19 18:16 Burn CD for patient Stat Ordered Studies 10/06/19 21:34 CT abd pelvis wo con Urgent IMPRESSION: 1. Suboptimal examination without oral and IV contrast. 2. There are no acute infectious or inflammatory findings in the abdomen or pelvis. 3. There are acute to subacute appearing bilateral 7th rib fractures. Correlate for point tenderness. 4. The liver is cirrhotic in morphology with evidence of steatosis. 5. A moderate to large volume of abdominopelvic ascites indicate portal hypertension. 6. Cholelithiasis. CT head/brain wo con Urgent FINDINGS: Brain parenchyma: There is mild microangiopathic change. There is no hemorrhage, mass effect, or evidence of acute territorial ischemia by CT criteria. Rose- white matter differentiation is preserved. No extra-axial fluid collection is seen. Ventricles, sulci, cisterns: Normal in configuration. Intracranial vasculature: There is atherosclerotic calcification of the [place] us carotid arteries. Calvarium: Unremarkable. Sinuses and mastoids: The visualized paranasal sinuses are clear. The mastoid air cells are well pneumatized. Orbits: The bony orbits are grossly intact. IMPRESSION: No acute intracranial abnormality. 10/08/19 13:39 US paracentesis abd w/image Urgent 10/10/19 07:23 CT abd pelvis wo con Urgent FINDINGS: Lower chest: There is a small left pleural effusion. There is a trace right pleural effusion. There are basilar atelectatic changes. Liver: The liver has a cirrhotic morphology. There is hepatic steatosis. Gallbladder: Cholelithiasis Spleen: Normal in size and attenuation. Pancreas: Unremarkable. Adrenal glands: There is mild adrenal gland thickening similar to the prior study. Kidneys: No renal, ureteral, or bladder calculi are visualized. Bowel: There are no transition zones indicate bowel obstruction. There is no evidence of acute diverticulitis. The appendix is not visualized with certainty. Peritoneum: No free air is visualized. There is moderate ascites. Vasculature: The abdominal aorta is normal in course and caliber. Adenopathy: None. Pelvic viscera: The bladder, and pelvic viscera are unremarkable. Skeletal structures: No destructive osseous lesions are seen. There is generalized body edema, asymmetric involving the left lateral subcutaneous tissues. IMPRESSION: 1. Cirrhosis and hepatic steatosis 2. Moderate ascites 3. Cholelithiasis 4. No renal, ureteral, or bladder calculi identified 5. No evidence of bowel obstruction. No evidence of free air 6. No evidence of abdominal or pelvic hematoma. 10/10/19 11:39 US liver Routine FINDINGS: The liver is of increased echogenicity, finding suggesting hepatic steatosis. Liver has a cirrhotic morphology. No focal hepatic masses are visualized. The liver is enlarged measuring 24 cm. The gallbladder contains sludge and calculi. There is no right-sided hydronephrosis. There is ascites. There is no common bile duct dilatation. The common bile duct measured 5 mm. Pancreas is poorly visualized. No definite pancreatic lesions are evident. There is expected hepatofugal flow within the left portal vein. There is equivocal thrombus within the main portal vein. IMPRESSION: 1. Gallbladder calculi and sludge. 2. No ductal dilatation 3. Cirrhotic morphology of the liver. Ascites. Hepatic steatosis. 4. Equivocal thrombus within the main portal vein. Suspected hepatofugal flow within the left portal vein Hospital Course (1) Abdominal pain: (2) Ascites: 10/10/2019 - update Patient appears more sleepy today, however arousable, and answers questions appropriately. Denies any fevers, chills, chest pain, shortness of breath, reports abdominal distention and discomfort. Informed her that her liver function was getting worse today, and that I would be contacting gastroenterology, and nephrology and also possibly [facility]. Patient is in agreement with that. Patient's T bili today was elevated to 6.5, direct bili 4.4, MELD score elevated at 37, up from 35. Patient had fever 39C overnight, per nursing staff, the patient's room was very hot ??, Currently patient is afebrile. Patient has been afebrile her entire hospital stay, and did not have fever prior to admission either. Discussed with pharmacy, coverage of ertapenem, and additional antibiotic coverage. Added daptomycin, to cover for enterococcus. ?? Possible cholangitis? Patient underwent paracentesis, on October 07, SAAG = 1.6, consistent with portal hypertension cause of ascites, WBC 102 not consistent with SBP, however patient did receive ertapenem prior to paracentesis. Yesterday (10/09/2019) patient required blood transfusion, as her hemoglobin was 7.2. Currently hemoglobin is stable at 9. WBC is not elevated. Obtained CT abdomen pelvis, no evidence of abdominal or pelvic hematoma. No evidence of free air. no renal calculi. Discussed with gastroenterology, Dr. Carlson, who also recommended liver ultrasound. MRCP could not be obtained today. Liver ultrasound however did not show ductal dilatation. It also showed an equivocal thrombus within the main portal vein and suspected hepatofugal flow within the left portal vein. Per prior discussion with gastroenterology, they recommended TIPS procedure and possible transfer to tertiary center if her liver/renal function not improving. Dr. Carlson also recommended to discuss this with the tertiary center such as [facility]. Contacted [facility] in [place], and discussed the case with GI/hepatology, Dr. Erickson and hospitalist/accepting physician, Dr. Pa. Patient was accepted to their care at [facility] [place]. Pt is 54 y/o F with PMH schizoaffective disorder, anxiety, DM II, paroxysmal atrial fibrillation, HTN, COPD, h/o alcohol and drug use, cirrhosis presented to ER with complaint of abdominal pain, increased abdominal distention for several weeks. Patient reports not taking lactulose as directed secondary to causing diarrhea. Reports taking diuretics. In ER patient afebrile, PA: 100, R: 24 down to 19, BP: 102/66, 90-97% on room air. WBC: 10, H/H: 8/, PLT: 95, AST: 24, ALT: 17, alk phos: 255, total bili: 3.4, lipase: 109 Recurrent ascites possible SBP, probable alcoholic cirrhosis, possible sepsis GI consult RE recurrent U GIB/ascites Diagnostic and therapeutic paracentesis - pt refused initially, discussed again and patient agreeable, underwent paracentesis on (10/08/2019), 4 L of ascitic fluid removed Received Vitamin K, FFP on admission to reverse coagulopathy prior to paracentesis Cultures, follow lactic acid - downtrended IV albumin for possible SBP (also for poss. hepatorenal syndrome) Ertapenem to cover possible SBP and aspiration pneumonia. Asct. fluid WBC 102, not c/w SBP however pt received ertapenem prior to paracentesis Worsening/ Acute liver failure MELD score 35 on admission, now 37 (10/09) Increased T bili to 6.5 , direct bili 4.4 , INR 2.2 today (10/09) SAAG 1.6, consistent with portal hypertension likely cause of ascites Per prior GI consult, recommend possible TIPS procedure by IR, if her liver/renal failure does not improve with current therapy/triple therapy for hepatorenal syndrome Currently patient is more somnolent today, and given her current labs, concern for acute liver failure She is also more edematous, with increased ascites Seen by nephrology today, given IV Lasix 80 mg (in addition to Midodrin, octreotide, IV albumin) Discussed with gastroenterology her elevated MELD score, T bili/INR, worsening mental status. Dr. Carlson, recommended liver ultrasound. MRCP could not be obtained today. Liver ultrasound however did not show ductal dilatation. It also showed an equivocal thrombus within the main portal vein and suspected hepatofugal flow within the left portal vein. Dr. Carlson concerned about acute liver failure and recommended to discuss this with the tertiary center such as [facility]. Fever Patient febrile overnight, T-max 39C -Source of fever currently unclear -Patient has been afebrile during this admission, and no reported fever prior to admission -Concern for SBP, cholangitis, other abdominal etiology, culture from ascitic fluid from paracentesis is negative -T bili elevated however there is no ductal dilatation on liver ultrasound -Blood cultures obtained, UA/urine culture was not obtained due to incontinence -Chest x-ray consistent with mild vascular/interstitial prominence, no evidence of focal pulmonary consolidation -CT abdomen pelvis, without any evidence of abdominal/pelvic hematoma or free air, no evidence of renal ureteral or bladder calculi, positive for cholelithiasis, moderate ascites, cirrhosis and hepatic steatosis -Patient has been on ertapenem,will add daptomycin (3) Anemia: H/H: 02/18 (Hgb 8.5 on 08/20) UGIB, gastritis on EGD from recent confinement, hx Eliquis intake for PAF hx, hemoglobin stable at baseline Coagulopathy secondary to liver disease IV PPI Stop Eliquis, anticoagulation may need to be stopped permanently given recurrent/persistent GI bleed Serial H&H, transfuse PRBC if hemoglobin less than 8 and or for symptomatic anemia (hx TIAs as per records) GI consult RE recurrent U GIB/ascites - Hgb down to 7.5 on 10/06 - received 1 unit of pRBC - Hgb stable 9.1 on (10/07), then down to 7.2 again (10/08) - another 1 unit of pRBC given, Hgb improved to 9.0 (10/08) - pt denies any blood in the stool, melena, hematemesis - pt underwent paracentesis on (10/07), no bleeding noted from procedure site, abd. seems smaller, less distended, less edematous on (10/08) - recheck Hgb again in 6 hrs, stable 9.0 - CT abdomen pelvis negative for any abdominal or pelvic hematoma - cont. to closely monitor (4) Acute renal failure (ARF): BUN: 17, Cr: 3.0 on admission (history VENECIA in 07/2019 and Cr down trended to 1.2 on 08/20/2019, prior baseline~0.8) In the setting of liver cirrhosis/ ascites Nephrology consulted Poss. hepatorenal syndrome Started pt on octreotide, midodrine, IV albumin therapy Pt initially refused treatment, now receiving the medication, however renal function not improving, current Cr 3.58 (10/09) -started IV lasix (10/08/2018) (5) Hyponatremia: Na: 125 on admission, was 133 on 08/20/2019 Hypervolemic hyponatremia poss. 08/01 hepatorenal syndrome Nephrology consulted- started pt on midodrine, octreotide, IV albumin therapy Patient declined all medical therapy, then finally agreeable later on (10/07) - started IV lasix today (10/08/2018) (6) Hypokalemia: K: 3.4 on admission likely 08/01 emesis , poor p.o. intake, diuretics replete and monitor (7) Hypomagnesemia: Magnesium: 1.1 on admission - replete and monitor (8) DM type 2 (diabetes mellitus, type 2): HbA1c: 4.9% in 07/2019 ISS BG goal [id number] (9) Paroxysmal atrial fibrillation: On Eliquis - hold d/t poss. GI bleed (10) COPD (chronic obstructive pulmonary disease): Chronic respiratory failure secondary to COPD on home O2, pulmonary status at baseline on admission Current mild wheezing. Patient reports chronic wheezing Duonebs prn Possible aspiration pneumonia - hx of emesis reported on admission - Pt started on ertapenem (11) HTN (hypertension): On diltiazem at home HTN, BP on the lower side hx TIAs as per records (12) Schizoaffective disorder: On perphenazine at home but has not taken medication in past 1-2 weeks Psychiatry consulted, appreciate their input Pt refused medications, labs etc., also initially refused procedure/paracentesis Psychiatry contacted and pt's case discussed. Pt more agreeable now, started on medications and underwent paracentesis on (09/28 0) History of ongoing cocaine/alcohol/tobacco abuse DT precautions Nicotine patch PRN PCP follow up after d/c: Follows with Dr. Rosario for routine care. Dispo: Given patient's acute/worsening liver failure, and renal failure, likely secondary to hepatorenal syndrome, patient's case discussed with physicians (GI/hepatology, hospitalist/accepting physician, and also ID physician) at [facility] in [facility], and patient was accepted to their care. Total Time Total Time Spent Total Time Spent (In Minutes): 60 Total Time Includes: Examination of the Patient, Discharge Planning, Medication Reconciliation and Communication With Other Providers Discharge Plan Discharge Items Patient Disposition: Transfer Acute Care Hospital Reason For Visit: UGIB,VENECIA Discharge Diagnosis: Worsening / Acute liver failure Acute renal failure / hepatorenal syndrome Activity: As commented below Non-emergency contact: Specialist, Eligibility Counselor and Continuum Of Care Manager Call non-emergency contact if: your symptoms worsen Follow-up/Referrals: Dante Rosario, [Primary Care Provider] - Diet: Carb Consistent or DM2 and Dialysis Renal Addtl Attending Provider Instructions: Acute /worsening liver failure, and renal failure secondary to hepatorenal syndrome, discussed with physicians at [facility] in [place], namely (GI/hepatology), and Dr. Pa (hospitalist and accepting physician), patient was accepted to their care. Pending Studies at Discharge: Yes Studies:: Blood culture Stand-Alone Forms: My [facility] Skilled Items Patient informed of condition?: Yes DNR: No Discharge Level of Care: Other Communicable Disease: No Discharge Prognosis: Deteriorating Lines: Peripheral IV Urinary Catheter: No Medications and DC Order Prescriptions: Continued valacyclovir 500 mg Tablet 500 mg PO QAM RF: 0 diltiazem HCl [Cartia XT] 300 mg capsule,extended release 24hr 300 mg PO QAM RF: 0 diphenhydramine HCl [Benadryl] 25 mg Capsule 50 mg PO Q6H PRN (Reason: Itching) RF: 0 perphenazine 4 mg Tablet 8 mg PO BID RF: 0 folic acid 1 mg Tablet 1 mg PO DAILY RF: 0 pantoprazole 40 mg Tablet,Delayed Release (Dr/Ec) 40 mg PO QAM 30 Days Qty: 30 RF: 3 cetirizine 10 mg tablet 10 mg PO DAILY PRN (Reason: Allergy Symptoms) RF: 0 hydroxyzine HCl 25 mg tablet 25 mg PO TID PRN (Reason: Itching) RF: 0 Spiriva Respimat 1.25 mcg/actuation mist 2 puff INHALATION DAILY RF: 0 Discontinued lactulose [Constulose] 10 gram/15 mL solution 30 ml PO DAILY PRN (Reason: Constipation) RF: 0 furosemide [Lasix] 20 mg Tablet See Rx Instructions .ROUTE .COMPLEX RF: 0 Eliquis 2.5 mg Tablet 2.5 mg PO BID RF: 0 potassium chloride 20 mEq Tablet Extended Release 20 meq PO BID RF: 0 spironolactone 50 mg tablet 50 mg PO DAILY RF: 0 Discharge Orders: Discharge Order (Routine); Ordered 10/10/19 Ordered By: Hal Dias Admission Data Admit Date/Time: 10/06/19 22:29 Attending Provider: Hal Dias Admit Provider: Derrick Smith Primary Care Provider: Dante Rosario Other Providers: Derrick Smith ; Alexandra Gray ; Julia Blank ; Marlee Gutierrez
[2019-10-10] MEDS: HYDROCODONE/ACETAMOPHEN 5/325MG TAB PO PRN (21:00)
== END 2019-10-10 22:30 | disposition short-term general hospital (02) | DRG 441 ==
LOC: ED 18:36 → 2S 22:29 → 2W 10-07 21:08

== ENCOUNTER 2019-11-14 03:28 | Inpatient (IN) ==
[2019-11-14] MEDS ORDERED: PANTOPRAZOLE BOLUS/DRIP 1 EA IV STA (03:39)
[2019-11-14] MEDS ORDERED: PANTOprazole 80 MG in DEXTROSE 5% 100 ML IV ONE (03:39)
[2019-11-14 04:23] LABS: Albumin Level 1.9 gm/dl (3.4-5.0); BUN Creatinine Ratio 12.6 (10-20); Calcium 7.9 mg/dl (8.5-10.1); Creatinine Clr Calc Pharmacy 14.7 ml/min; Est GFR (African American) 12.3; Est GFR (Non-African American) 10.6
[2019-11-14 04:28] LABS: Hemoglobin 5.7 g/dL (12.0-16.0); Mean Corpuscular Hemoglobin 36.3 pg (25-34); Mean Corpuscular Hgb Conc 35.6 g/dL (32-36); Mean Corpuscular Volume 101.9 fL (80-100); Mean Platelet Volume 10.4 fL (7.4-10.4); Platelet Count 106 K/uL (130-400); RDW Coefficient of Variation 19.5 % (11.5-14.5); RDW Standard Deviation 69.6 fL (36.4-46.3); Red Blood Count 1.57 M/uL (4.2-5.4); White Blood Count 19.54 K/uL (4.8-10.8)
[2019-11-14 04:29] LABS: Partial Thromboplastin Ratio 2.9; Prothrombin Time 84.9 Seconds (9.0-12.0)
[2019-11-14 04:34] LABS: Albumin Globulin Ratio 0.3 (0.9-2); Bilirubin,Total 4.2 mg/dl (0.2-1); Globulin 6.2 gm/dl (2.5-4.0); Total Protein 8.1 gm/dl (6.4-8.2); Troponin I 0.137 ng/ml (0-0.045)
[2019-11-14 04:38] LABS: INR 9.1 (0.9-1.1); Partial Thromboplastin Time 82.3 Seconds (21.0-31.0)
[2019-11-14] MEDS ORDERED: PHYTONADIONE 10 MG in SODIUM CHLORIDE 0.9% 50 ML IV ONE (04:39)
[2019-11-14] MEDS ORDERED: SODIUM CHLORIDE 0.9% 250 ML IV PRN ×7 (04:41→15:24)
[2019-11-14 04:45] LABS: ALC (manual) 1.19 K/uL (1.2-3.4); ANC (manual) 17.84 K/uL (1.4-6.5); Basophils # (manual) 0.18 K/uL (0-0.2); Basophils % (manual) 0.9 %; Hypochromasia Present; Lymphocytes # (manual) 1.19 K/uL (1.2-3.4); Lymphocytes % (manual) 6.1 %; Monocytes # (manual) 0.33 K/uL (0.11-0.59); Monocytes % (manual) 1.7 %; Neutrophils # (manual) 17.84 K/uL (1.4-6.5); Neutrophils % (manual) 91.3 %; Poikilocytosis Present; Target Cells 1+
[2019-11-14] MEDS: PANTOprazole 40 MG in DEXTROSE 5% 100 ML IV SCH ×5 (04:46→23:41)
[2019-11-14] MEDS ORDERED: LORazepam 1 MG/2 ML VIAL IV STA (05:13)
--- NOTE | 2019-11-14 06:36 | Critical Care Consultation ---
Date of Consultation November 14, 2019 Assessment & Plan (1) Admitted to intensive care unit: Reason Critically Ill: 54-year-old female with altered mental status in the setting of presumed upper GI bleed with supratherapeutic INR requiring close hemodynamic monitoring in the setting of above. NEURO - * CAM ICU: Unable to assess secondary to sedation. * Altered mental status: * Presented to the emergency department agitated and altered requiring sedation with Ativan. * Likely metabolic encephalopathy -multifactorial. * Elevated ammonia certainly contributes. * Will add CT head for evaluation of possible ICH in the setting of supratherapeutic INR. CARDIAC/VASCULAR - * Elevated troponin: * Likely demand ischemia in the profoundly anemic patient with acute on chronic renal failure. * No concerning ST changes on EKG. * Will trend troponins. * Hope for improvement with transfusion of PRBCs. * Paroxysmal A. fib: * Currently anticoagulated with Coumadin. * Will be concerning as the patient will need correction secondary to supratherapeutic INR with GI bleed. * EKG: ST (poor quality EKG) @130 bpm w/ PVCs. No ST/T-wave changes noted. QTc 502 ms. * Monitor on telemetry. RESPIRATORY - * History of COPD -saturating well on room air. * Low threshold for intubation for airway protection in the altered mental status patient with liver failure requiring sedation. Also in the setting of concern for upper GI bleed. GI/NUTRITION - * GI Bleed: * Blood noted in stools. This is particularly concerning in the cirrhotic patient with known portal vein thrombus and supratherapeutic INR. * Received vitamin K and FFP as well as PRBCs. * Patient is Hemoccult positive, however per family's recollection of events, the patient was noted to have visible blood in stool. * This certainly could be concerning for brisk upper GI bleed as well. * Agree with continuing Protonix and octreotide drips -particularly in the patient with hepatorenal syndrome. * Per GI, intervention after patient's INR has been successfully corrected. * Hyperammonemia: * Per notes, the conversation with brother reports that patient has not been taking lactulose. * Would refrain from placing NG tube for p.o. dosing of lactulose at this time. * Consider rectally, however uncertain patient would tolerate in her current status. RENAL/LYTES - * Acute renal failure: * As with previous episode, likely hepatorenal in nature. * Receiving IV fluids. * Place Narvaez catheter for accurate I&Os. * Renal electrolytes and serum awesome was ordered. * IVF: NSS@50mL/hr - * Narvaez to be placed - Strict I&Os. ENDO - * DMII * BSGs per unit protocol. ISS --> gtt per unit policy. HEME - * Acute blood loss anemia: * 2/2 GIB. * Receiving 2U PRBCs and 2U FFP. * Received 10mg IV Vitamin K. * Trend H&H. ID - * SBP Prophylaxis: * Received Ertapenem. Patient w/ multiple antibiotic allergies. Received in the past. LINES/IV ACCESS - * PIVs x2 DVT PROPHYLAXIS - * Hold on chemoprophylaxis 2/2 GIB. * SCDs I have personally spent 45 minutes of critical care time in the direct management of this patient. This is a life/limb threatening event. This includes time spent evaluating patient, direct bedside care, chart review, placing orders, interpretation of diagnostic studies, discussion with consultants, patient, and family members, as well as other required patient management activities. This time is exclusive of all separately billable procedures, and teaching time and separate from and in addition to any other critical care service time. Thank you for allowing us to participate in the care of this patient. Please refer to my attending physician's documentation for any further recommendations. (2) AMS (altered mental status): (3) UGIB (upper gastrointestinal bleed): (4) Acute blood loss anemia: (5) Thrombosis, portal vein: (6) Cirrhosis: (7) Hepatorenal syndrome: (8) Acute renal failure: (9) Supratherapeutic international normalized ratio (INR): (10) Paroxysmal atrial fibrillation: (11) Ascites: (12) DM type 2 (diabetes mellitus, type 2): Supervising Physician Co-Signing Physician Notes I saw and evaluated the patient with Lalo Hayden, and agree with findings and plan as documented in the note. Please look at my addendum note for additional information History of Present Illness Attending Physician: Roxanne Callejas MD History of Present Illness Patient is a 54-year-old female with a significant past medical history of alcoholic cirrhosis, portal vein thrombus, A. fib, hypertension, COPD, diabetes, alcohol abuse, cocaine abuse, and schizoaffective disorder. In recent hospitalization last month, the patient was found to have concerns for upper GI bleed as well as hepatorenal syndrome. She also carries a diagnosis of portal vein thrombus requiring Coumadin for anticoagulation. She was transferred to [facility] [address] last month where she remained for a few days and was subsequently discharged home. Apparently, per conversations with colleagues and documentation review, the patient does continue to drink. Apparently, there has been blood noted in the patient's stools over the past few days and she has been lethargic and has had a change in mental status over the last 24 hours. Patient was noted to be severely anemic with an H&H of 5.7 and 16.0, respectively. Hemoccult positive. She was provided vitamin K as well as 2 units PRBC and 2 units FFP. She also received Protonix drip, octreotide, as well as antibiotic coverage. GI was consulted by phone and recommends correction of INR prior to possibility for endoscopy. Patient was agitated upon arrival in the emergency department and did receive Ativan for sedation. Upon evaluation in the emergency department, patient is somnolent and responds to painful stimulus only. She is unable to contribute to history of present illness. Allergies Allergy/AdvReac Type Severity Reaction Status Date / Time haloperidol Allergy Severe TONGUE Verified 11/14/19 04:10 SWELLING insulin lispro Allergy Intermediate HIVES Verified 11/14/19 04:10 phenol Allergy Intermediate HIVES Verified 11/14/19 04:10 citalopram Allergy Mild ITCHING Verified 11/14/19 04:10 sulfamethoxazole Allergy Mild RASH Verified 11/14/19 04:10 trimethoprim Allergy Mild RASH Verified 11/14/19 04:10 Bactrim Allergy Unknown RASH Verified 12/01/17 16:09 Penicillins Allergy Unknown Hives Verified 11/14/19 04:10 pregabalin [From Lyrica] AdvReac Severe SUICIDAL Verified 11/14/19 04:10 topiramate AdvReac Severe SEIZURE Verified 11/14/19 04:10 LIKE ACTIVITY oxycodone AdvReac Mild ITCH Verified 11/14/19 04:10 Margarine Allergy Severe RASH Uncoded 11/14/19 04:10 Home Medications Home Medications Medication Instructions Recorded Confirmed Type valacyclovir 500 mg PO QAM 07/05/18 11/14/19 History diltiazem HCl [Cartia XT] 300 mg PO QAM 12/01/18 11/14/19 History folic acid 1 mg PO DAILY 08/17/19 11/14/19 History perphenazine 8 mg PO BID 08/17/19 11/14/19 History pantoprazole 40 mg PO QAM 30 Days #30 tab 08/21/19 11/14/19 Rx Spiriva Respimat 2 puff INHALATION DAILY 10/06/19 11/14/19 History hydroxyzine HCl 25 mg PO TID PRN 10/06/19 11/14/19 History albuterol sulfate 2 puff INHALATION Q4H PRN 11/14/19 11/14/19 History cholecalciferol (vitamin D3) 1,250 mcg PO WK 11/14/19 11/14/19 History furosemide 20 mg PO DAILY 11/14/19 11/14/19 History lactulose [Constulose] 15 ml PO TID 11/14/19 11/14/19 History magnesium oxide 400 mg PO BID 11/14/19 11/14/19 History midodrine 10 mg PO QID 11/14/19 11/14/19 History potassium chloride 20 meq PO BID 11/14/19 11/14/19 History warfarin 2.5 mg PO UD 11/14/19 11/14/19 History Patient History Medical History Alcohol induced acute pancreatitis (Resolved) Alcohol use disorder (Chronic) Atrial fibrillation (Chronic) paroxysmal Chronic generalized pain disorder (Chronic) COPD (chronic obstructive pulmonary disease) (Chronic) DM type 2 (diabetes mellitus, type 2) (Chronic) EtOH dependence (Inactive) Fatty liver (Chronic) History of opioid abuse (Chronic) HTN (hypertension) (Chronic) Hx of cocaine abuse Neuropathy (Chronic) Non-sustained ventricular tachycardia (Inactive) Obesity (Chronic) Paroxysmal atrial fibrillation Schizoaffective disorder (Chronic) Sciatic nerve disease (Chronic) Sleep apnea (Chronic) Tobacco use disorder (Chronic) Surgical History H/O foot surgery (Resolved) H/O ovarian cystectomy (Resolved) Family History Other Heart disease Kidney disease Social History Preferred Language: Swiss Communication Ability: unresp. Visual Impairment: No Limitations Registration Representative Required: No Beliefs That Will Affect Care: None marital status: Single Current Living Situation: Family Current Living Situation Comment: lives with brother current occupational status: unemployed and disabled Other Information That Helps Us Care for You: No Feels Safe at Home: Yes Safety Concerns: Feels Safe At This Time Smoking Status: Current every day smoker Tobacco Type: cigarettes ; Cigarettes Per Day: 10 ; Do You Dip or Chew Tobacco: No ; Tobacco Cessation Education Requested by Patient: No Hx Alcohol Use: Yes Alcohol type: wine and hard liquor Hx Substance Use: No Review of Systems Review of Systems: Unobtainable due to reduced consciousness Physical Exam Physical Exam: VITAL SIGNS - Vital signs and nursing notes were reviewed. GENERAL - 54-year-old female appearing older than her stated age. Somnolent. Responds to noxious stimuli. HEAD - NC/AT. EYES - PERRL. Scleral icterus noted. EARS - No deformities of external structures noted on gross examination bilaterally. NOSE - Midline and without cyanosis. No epistaxis or purulent drainage noted. MOUTH/OROPHARYNX - Without perioral cyanosis. NECK - Supple to palpation. No nuchal rigidity. LUNGS - Chest wall symmetric without accessory muscle use, intercostals retractions, or central cyanosis. Normal vesicular breath sounds CTA B/L. No wheezes, rales, or rhonchi appreciated. CARDIAC - RRR with S1/S2. No murmur, rubs, or gallops appreciated. ABDOMEN - Abdominal contour protuberant without pulsations or visible masses. BS normoactive all four quadrants. No tenderness to palpation appreciated throughout. Ascites present. EXTREMITIES - No clubbing or peripheral cyanosis. No pretibial edema present. +3/5 radial and dorsalis pedis pulses palpated throughout. NEUROLOGIC - No focal neurological deficits noted. Somnolent. Results & Data Results & Data ([facility]) Vital Signs (Past 12 Hours) Vital Signs Temp Pulse Pulse Resp BP BP Pulse Ox 11/14/19 06:16 36.6 C 116 H 20 111/79 100 11/14/19 05:53 36.1 C L 115 H 20 100/73 96 11/14/19 05:43 36.7 C 111 H 22 107/73 11/14/19 05:06 115 H 24 107/73 100 11/14/19 04:21 143 H 24 104/50 L 96 11/14/19 03:55 96 11/14/19 03:48 37.6 C H 145 H 24 174/159 H 96 Coding Level of Care Code Critical Care 1st 30-74 mins Diagnoses Admitted to intensive care unit Z78.9 AMS (altered mental status) R41.82 UGIB (upper gastrointestinal bleed) K92.2 Acute blood loss anemia D62 Thrombosis, portal vein I81 Cirrhosis K74.60 Hepatorenal syndrome K76.7 Acute renal failure N17.9 Acute renal failure type: unspecified Supratherapeutic international normalized ratio (INR) R79.1 Paroxysmal atrial fibrillation I48.0 Ascites R18.8 Ascites type: other type DM type 2 (diabetes mellitus, type 2) E11.69 Diabetes mellitus complication status: with other specified complication Diabetes mellitus correction insulin use: unspecified superintendent terminal insulin use status Time Spent (min) 45 (1) Acute renal failure Acute renal failure type: unspecified Qualified Code(s): N17.9 - Acute kidney failure, unspecified (2) DM type 2 (diabetes mellitus, type 2) Diabetes mellitus complication status: with other specified complication Diabetes mellitus correction insulin use: unspecified correction insulin use status Qualified Code(s): E11.69 - Type 2 diabetes mellitus with other specified complication (3) Ascites Ascites type: other type Qualified Code(s): R18.8 - Other ascites
[2019-11-14] MEDS ORDERED: VANCOMYCIN HCL 1,000 MG in SODIUM CHLORIDE 0.9% 250 ML IV SCH (06:46)
[2019-11-14] MEDS ORDERED: ICU PROTOCOL FOR HYPERGLYCEMIA PRN (06:46)
[2019-11-14] MEDS ORDERED: SODIUM CHLORIDE 0.9% 1000ML 1,000 ML IV SCH (06:46)
[2019-11-14] MEDS ORDERED: VANCOMYCIN CONSULT ACTIVE PRN (06:46)
[2019-11-14] MEDS ORDERED: ALBUTEROL HFA 8 GM INHALER INH PRN (06:46)
[2019-11-14] MEDS ORDERED: LORazepam 1 MG/2 ML VIAL IV PRN (06:46)
[2019-11-14] MEDS ORDERED: METOPROLOL TARTRATE 1 MG/ML VIAL IV PRN (06:46)
--- NOTE | 2019-11-14 07:02 | CT Scan Report ---
CT head/brain wo con CLINICAL HISTORY: 54 years-old Female with AMS w/ supratherapeutic INR. Acutely altered mental statu s TECHNIQUE: Multiple axial CT images of the head were obtained without contrast. A dose lowering tech nique was utilized adhering to the principles of ALARA. COMPARISON: Head CT 10/06/2019 FINDINGS: Mildly motion degraded exam. No acute intracranial hemorrhage, midline shift, intracranial mass, hydr ocephalus, territorial ischemia or abnormal extra-axial collection. Minimal white matter hypodensitie s in the subcortical distribution of the right frontal lobe appears unchanged from prior study and is nonspecific however may reflect chronic microvascular ischemic changes. The calvarium is intact. The paranasal sinuses, mastoid air cells, and middle ear cavities are clear . IMPRESSION: No acute intracranial abnormality. ACT 112: Negative or not required by law. The above report was generated using voice recognition software. It may contain grammatical, syntax o r spelling errors. Electronically signed by: Lake Harrell M.D. 11/14/2019 7:01 AM
[2019-11-14] MEDS ORDERED: ERTAPENEM CONSULT ACTIVE PRN (07:06)
--- NOTE | 2019-11-14 07:08 | XRay Report ---
XR chest 1V portable HISTORY: 54 years-old Female GIB acute gastrointestinal hemorrhage COMPARISON: Chest radiograph 10/10/2019 TECHNIQUE: Supine AP view of the chest FINDINGS: Limited exam secondary to positioning. The patient is rotated. Cardiac silhouette is enlarged. Hazy o pacity throughout the right hemithorax likely secondary to right breast positioning with summation de nsity. No pneumothorax, pleural effusion, overt pulmonary edema or airspace consolidation typical for pneumonia. Degenerative changes of the shoulders and spine. IMPRESSION: Cardiomegaly without acute process. ACT 112: Negative or not required by law. The above report was generated using voice recognition software. It may contain grammatical, syntax o r spelling errors. Electronically signed by: Lake Harrell M.D. 11/14/2019 7:07 AM
--- NOTE | 2019-11-14 07:18 | Emergency Department Note ---
History of Present Illness General Chief complaint: GI Bleed Stated complaint: GI BLEED Source: family, EMS and RN notes reviewed Mode of arrival: EMS Limitations: altered mental status, patient cooperation and clinical acuity History of Present Illness Provider complaint: GI bleed This patient is a 54-year-old female who presents the emergency department with EMS with complaints of GI bleeding. Patient is currently unable to answer questions coherently however per nursing staff and EMS she apparently has been bleeding for several days. I was able to gather history from the patient's brother who states "every time she goes to the bathroom there is blood everywhere." Apparently the patient has not been vomiting but rather having blood in her stools. Of note the patient does have severe alcoholic liver d isease and is treated with Coumadin for atrial fibrillation. History is significantly limited secondary to altered mentation. Home Medications Home Medications Medication Instructions Recorded Confirmed Type valacyclovir 500 mg PO QAM 07/05/18 11/14/19 History diltiazem HCl [Cartia XT] 300 mg PO QAM 12/01/18 11/14/19 History folic acid 1 mg PO DAILY 08/17/19 11/14/19 History perphenazine 8 mg PO BID 08/17/19 11/14/19 History pantoprazole 40 mg PO QAM 30 Days #30 tab 08/21/19 11/14/19 Rx Spiriva Respimat 2 puff INHALATION DAILY 10/06/19 11/14/19 History hydroxyzine HCl 25 mg PO TID PRN 10/06/19 11/14/19 History albuterol sulfate 2 puff INHALATION Q4H PRN 11/14/19 11/14/19 History cholecalciferol (vitamin D3) 1,250 mcg PO WK 11/14/19 11/14/19 History furosemide 20 mg PO DAILY 11/14/19 11/14/19 History lactulose [Constulose] 15 ml PO TID 11/14/19 11/14/19 History magnesium oxide 400 mg PO BID 11/14/19 11/14/19 History midodrine 10 mg PO QID 11/14/19 11/14/19 History potassium chloride 20 meq PO BID 11/14/19 11/14/19 History warfarin 2.5 mg PO UD 11/14/19 11/14/19 History Allergies Allergy/AdvReac Type Severity Reaction Status Date / Time haloperidol Allergy Severe TONGUE Verified 11/14/19 04:10 SWELLING insulin lispro Allergy Intermediate HIVES Verified 11/14/19 04:10 phenol Allergy Intermediate HIVES Verified 11/14/19 04:10 citalopram Allergy Mild ITCHING Verified 11/14/19 04:10 sulfamethoxazole Allergy Mild RASH Verified 11/14/19 04:10 trimethoprim Allergy Mild RASH Verified 11/14/19 04:10 Bactrim Allergy Unknown RASH Verified 12/01/17 16:09 Penicillins Allergy Unknown Hives Verified 11/14/19 04:10 pregabalin [From Lyrica] AdvReac Severe SUICIDAL Verified 11/14/19 04:10 topiramate AdvReac Severe SEIZURE Verified 11/14/19 04:10 LIKE ACTIVITY oxycodone AdvReac Mild ITCH Verified 11/14/19 04:10 Margarine Allergy Severe RASH Uncoded 11/14/19 04:10 Past Med/Surg History Medical History Alcohol induced acute pancreatitis (Resolved) Alcohol use disorder (Chronic) Atrial fibrillation (Chronic) paroxysmal Chronic generalized pain disorder (Chronic) COPD (chronic obstructive pulmonary disease) (Chronic) DM type 2 (diabetes mellitus, type 2) (Chronic) EtOH dependence (Inactive) Fatty liver (Chronic) History of opioid abuse (Chronic) HTN (hypertension) (Chronic) Hx of cocaine abuse Neuropathy (Chronic) Non-sustained ventricular tachycardia (Inactive) Obesity (Chronic) Paroxysmal atrial fibrillation Schizoaffective disorder (Chronic) Sciatic nerve disease (Chronic) Sleep apnea (Chronic) Tobacco use disorder (Chronic) Surgical History H/O foot surgery (Resolved) H/O ovarian cystectomy (Resolved) Family History Other Heart disease Kidney disease Social History Preferred Language: Mauritanian Communication Ability: unresp. Visual Impairment: No Limitations Glass Wool Blanket Machine Feeder Required: No Beliefs That Will Affect Care: None marital status: Single Current Living Situation: Family Current Living Situation Comment: lives with brother current occupational status: unemployed and disabled Other Information That Helps Us Care for You: No Feels Safe at Home: Yes Safety Concerns: Feels Safe At This Time Smoking Status: Current every day smoker Tobacco Type: cigarettes ; Cigarettes Per Day: 10 ; Do You Dip or Chew Tobacco: No ; Tobacco Cessation Education Requested by Patient: No Hx Alcohol Use: Yes Alcohol type: wine and hard liquor Hx Substance Use: No Review of Systems Unobtainable due to mental health condition and Other (Clinical acuity and inability to answer questions.) Physical Exam Vital Signs Vital Signs - 24 hr 11/14/19 03:48 11/14/19 03:55 11/14/19 04:21 Temperature 37.6 C H Temperature Source Rectal Pulse Rate 145 H Pulse Rate [Bilateral Apical] 143 H Respiratory Rate 24 24 Blood Pressure 174/159 H Blood Pressure [Left Arm] 104/50 L Blood Pressure Mean 164 Blood Pressure Mean [Left Arm] 68 Blood Pressure Position Pulse Oximetry 96 96 96 Oxygen Delivery Method Room Air Room Air Sepsis Recent Fever Within 48 Hours No Sepsis New/Unexplained Change in Mental Status Yes Sepsis Action Taken by Nursing No Action Required 11/14/19 05:06 11/14/19 05:43 11/14/19 05:53 Temperature 36.7 C 36.1 C L Temperature Source Oral Oral Pulse Rate 111 H 115 H Pulse Rate [Bilateral Apical] 115 H Respiratory Rate 24 22 20 Blood Pressure 107/73 100/73 Blood Pressure [Left Arm] 107/73 Blood Pressure Mean 84 82 Blood Pressure Mean [Left Arm] 84 Blood Pressure Position Lying Pulse Oximetry 100 96 Oxygen Delivery Method Sepsis Recent Fever Within 48 Hours Sepsis New/Unexplained Change in Mental Status Sepsis Action Taken by Nursing Vital signs reviewed. General: Chronically ill appearing, agitated and yelling 54-year-old female HEENT: Pale conjunctiva, dry mucous membranes, no blood noted. Cardiovascular: Regular rate and rhythm, no extra sounds. Pulmonary: Clear to auscultation bilaterally, normal work of breathing. Abdomen: Soft, distended, positive fluid wave, nontender Musculoskeletal: Atraumatic, no peripheral edema. Neurologic: Patient awake, confused/agitated. Thrashing in the bed but unable to follow commands. Moving all 4 extremities. Skin: Warm, dry, no rash Course Administered Medications Pantoprazole Sodium 40 mg/ (Dextrose) 100 mls @ 20 mls/hr IV Q5H CARLOS Stop: 12/14/19 03:55 Last Admin: 11/14/19 04:46 Dose: 8 mg/hr, 20 mls/hr Documented by: [id number] Discontinued Medications Pantoprazole Sodium (Protonix Bolus/Drip) 0 mls @ 1 mls/hr IV ONE STA Stop: 11/14/19 03:40 Last Admin: 11/14/19 04:44 Dose: 1 mls/hr Documented by: [id number] Pantoprazole Sodium 80 mg/ (Dextrose) 120 mls @ 400 mls/hr IV NOW ONE Stop: 11/14/19 03:56 Last Infusion: 11/14/19 04:36 Dose: 0 mls/hr Documented by: [id number] Admin: 11/14/19 04:11 Dose: 400 mls/hr Documented by: [id number] Phytonadione 10 mg/ Sodium (Chloride) 51 mls @ 102 mls/hr IV ONE ONE Stop: 11/14/19 05:08 Last Infusion: 11/14/19 05:48 Dose: 0 mls/hr Documented by: [id number] Admin: 11/14/19 05:00 Dose: 102 mls/hr Documented by: [id number] Lorazepam (Ativan) 1 mg in 2 mls @ 2 mls/min IV NOW STA Stop: 11/14/19 05:14 Last Admin: 11/14/19 05:25 Dose: 2 mls/min Documented by: [id number] Critical Care Time Critical Care Time: Yes Total Critical Care Time: 90 The high probability of a clinically significant, sudden or life threatening deterioration of required my full and direct attention, intervention and persona l management. The aggregate critical care time was 90 minutes. This time is in addition to time spent performing reported procedures but includes the following: [x] Data Review and interpretation [x] Patient assessment and monitoring of vital signs [x] Documentation [x] Medication orders and management Medical Decision Making Differential Diagnosis Differential diagnosis: Etiologies such as esophagitis, variceal bleed, Boerhaaves, Mullens-Guzman tear, gastritis, peptic ulcer disease, AVM, inflammatory bowel disease, ischemia, diverticulosis, colitis, malignancy, coagulopathy, thrombocytopenia, fissure, hemorrhoid, epistaxis , as well as others were entertained. Medical Records Attestation: I reviewed the patient's medical records. Home Medications Current Medication List: was personally reviewed by me Laboratory Data Attestation: I reviewed the patient's lab results. Result diagrams: 11/14/19 03:50 11/14/19 03:50 Lab Results 11/14/19 11/14/19 11/14/19 Range/Units 03:50 03:50 03:50 WBC 19.54 H (4.8-10.8) K/uL RBC 1.57 L (4.2-5.4) M/uL Hgb 5.7 L* (12.0-16.0) g/dL Hct 16.0 L* (37-47) % MCV 101.9 H (80-100) fL MCH 36.3 H (25-34) pg MCHC 35.6 (32-36) g/dL RDW Std Deviation 69.6 H (36.4-46.3) fL RDW Coeff of Ally 19.5 H (11.5-14.5) % Plt Count 106 L (130-400) K/uL MPV 10.4 (7.4-10.4) fL Neutrophils % (Manual) 91.3 % Lymphocytes % (Manual) 6.1 % Monocytes % (Manual) 1.7 % Basophils % (Manual) 0.9 % Neutrophils # (Manual) 17.84 H (1.4-6.5) K/uL Total Absolute Neuts 17.84 H (1.4-6.5) K/uL Lymphocytes # (Manual) 1.19 L (1.2-3.4) K/uL Total Abs Lymphocytes 1.19 L (1.2-3.4) K/uL Monocytes # (Manual) 0.33 (0.11-0.59) K/uL Basophils # (Manual) 0.18 (0-0.2) K/uL Hypochromasia Present Poikilocytosis Present Target Cells 1+ PT 84.9 H (9.0-12.0) Seconds INR 9.1 H* (0.9-1.1) APTT 82.3 H* (21.0-31.0) Seconds PTT Ratio 2.9 Sodium 136 (136-145) mmol/L Potassium 4.0 (3.5-5.1) mmol/L Chloride 103 (98-107) mmol/L Carbon Dioxide 19 L (21-32) mmol/L Anion Gap 14.0 H (3-11) BUN 55 H (7-18) mg/dl Creatinine 4.39 H (0.6-1.2) mg/dl Est Cr Clr Drug Dosing 14.7 ml/min Est GFR ( Amer) 12.3 Est GFR (Non-Af Amer) 10.6 BUN/Creatinine Ratio 12.6 (10-20) Glucose 83 (70-99) mg/dl Lactate (0.4-2.0) mmol/L Calcium 7.9 L (8.5-10.1) mg/dl Total Bilirubin 4.2 H (0.2-1) mg/dl AST 29 (15-37) U/L ALT 14 (12-78) U/L Alkaline Phosphatase 144 H (45-117) U/L Ammonia (11-32) umol/L Troponin I 0.137 H* (0-0.045) ng/ml Total Protein 8.1 (6.4-8.2) gm/dl Albumin 1.9 L (3.4-5.0) gm/dl Globulin 6.2 H (2.5-4.0) gm/dl Albumin/Globulin Ratio 0.3 L (0.9-2) Ethyl Alcohol mg/dL (0-3) mg/dl Blood Type Antibody Screen Crossmatch 11/14/19 11/14/19 11/14/19 Range/Units 03:50 03:53 04:03 WBC (4.8-10.8) K/uL RBC (4.2-5.4) M/uL Hgb (12.0-16.0) g/dL Hct (37-47) % MCV (80-100) fL MCH (25-34) pg MCHC (32-36) g/dL RDW Std Deviation (36.4-46.3) fL RDW Coeff of Ally (11.5-14.5) % Plt Count (130-400) K/uL MPV (7.4-10.4) fL Neutrophils % (Manual) % Lymphocytes % (Manual) % Monocytes % (Manual) % Basophils % (Manual) % Neutrophils # (Manual) (1.4-6.5) K/uL Total Absolute Neuts (1.4-6.5) K/uL Lymphocytes # (Manual) (1.2-3.4) K/uL Total Abs Lymphocytes (1.2-3.4) K/uL Monocytes # (Manual) (0.11-0.59) K/uL Basophils # (Manual) (0-0.2) K/uL Hypochromasia Poikilocytosis Target Cells PT (9.0-12.0) Seconds INR (0.9-1.1) APTT (21.0-31.0) Seconds PTT Ratio Sodium (136-145) mmol/L Potassium (3.5-5.1) mmol/L Chloride (98-107) mmol/L Carbon Dioxide (21-32) mmol/L Anion Gap (3-11) BUN (7-18) mg/dl Creatinine (0.6-1.2) mg/dl Est Cr Clr Drug Dosing ml/min Est GFR ( Amer) Est GFR (Non-Af Amer) BUN/Creatinine Ratio (10-20) Glucose (70-99) mg/dl Lactate 4.3 H* (0.4-2.0) mmol/L Calcium (8.5-10.1) mg/dl Total Bilirubin (0.2-1) mg/dl AST (15-37) U/L ALT (12-78) U/L Alkaline Phosphatase (45-117) U/L Ammonia (11-32) umol/L Troponin I (0-0.045) ng/ml Total Protein (6.4-8.2) gm/dl Albumin (3.4-5.0) gm/dl Globulin (2.5-4.0) gm/dl Albumin/Globulin Ratio (0.9-2) Ethyl Alcohol mg/dL (0-3) mg/dl Blood Type Cancelled Antibody Screen Cancelled Crossmatch 11/14/19 11/14/19 11/14/19 Range/Units 04:03 04:19 04:59 WBC (4.8-10.8) K/uL RBC (4.2-5.4) M/uL Hgb (12.0-16.0) g/dL Hct (37-47) % MCV (80-100) fL MCH (25-34) pg MCHC (32-36) g/dL RDW Std Deviation (36.4-46.3) fL RDW Coeff of Ally (11.5-14.5) % Plt Count (130-400) K/uL MPV (7.4-10.4) fL Neutrophils % (Manual) % Lymphocytes % (Manual) % Monocytes % (Manual) % Basophils % (Manual) % Neutrophils # (Manual) (1.4-6.5) K/uL Total Absolute Neuts (1.4-6.5) K/uL Lymphocytes # (Manual) (1.2-3.4) K/uL Total Abs Lymphocytes (1.2-3.4) K/uL Monocytes # (Manual) (0.11-0.59) K/uL Basophils # (Manual) (0-0.2) K/uL Hypochromasia Poikilocytosis Target Cells PT (9.0-12.0) Seconds INR (0.9-1.1) APTT (21.0-31.0) Seconds PTT Ratio Sodium (136-145) mmol/L Potassium (3.5-5.1) mmol/L Chloride (98-107) mmol/L Carbon Dioxide (21-32) mmol/L Anion Gap (3-11) BUN (7-18) mg/dl Creatinine (0.6-1.2) mg/dl Est Cr Clr Drug Dosing ml/min Est GFR ( Amer) Est GFR (Non-Af Amer) BUN/Creatinine Ratio (10-20) Glucose (70-99) mg/dl Lactate (0.4-2.0) mmol/L Calcium (8.5-10.1) mg/dl Total Bilirubin (0.2-1) mg/dl AST (15-37) U/L ALT (12-78) U/L Alkaline Phosphatase (45-117) U/L Ammonia 41.0 H (11-32) umol/L Troponin I (0-0.045) ng/ml Total Protein (6.4-8.2) gm/dl Albumin (3.4-5.0) gm/dl Globulin (2.5-4.0) gm/dl Albumin/Globulin Ratio (0.9-2) Ethyl Alcohol mg/dL < 3.0 (0-3) mg/dl Blood Type O Positive Antibody Screen NEGATIVE Crossmatch See Detail Imaging Data Attestation: I personally reviewed and interpreted this imaging study as follows: Radiologist's Impression: XR chest 1V portable HISTORY: 54 years-old Female GIB acute gastrointestinal hemorrhage COMPARISON: Chest radiograph 10/10/2019 TECHNIQUE: Supine AP view of the chest FINDINGS: Limited exam secondary to positioning. The patient is rotated. Cardiac silhouette is enlarged. Hazy opacity throughout the right hemithorax likely secondary to right breast positioning with summation density. No pneumothorax, pleural effusion, overt pulmonary edema or airspace consolidation typical for pneumonia. Degenerative changes of the shoulders and spine. IMPRESSION: Cardiomegaly without acute process. ACT 112: Negative or not required by law. The above report was generated using voice recognition software. It may contain grammatical, syntax or spelling errors. Electronically signed by: Lake Harrell M.D. 11/14/2019 7:07 AM Dictated: 11/14/19704 Transcribed: 11/14/19704 ECG Data Attestation: I personally reviewed and interpreted this ECG as follows: Indication: + altered mental status and + other (GIB) Rate (beats per minute): 131 Rhythm: + sinus tachycardia and + other (Poor quality baseline for interpretation.) ECG Intervals/blocks: + Left anterior fascicular block and + Normal QRS (low voltage) ECG Findings: + Q waves (Inferior) and + PVCs; no PACs Blood Pressure Blood Pressure Findings: Elevated blood pressure Blood Pressure Disposition: further management by hospitalist (ICU) MDM Narrative An order for cardiac monitoring was placed and the patient is found to be in a sinus tachycardia at 130 bpm. This patient was evaluated and appeared to be critically ill. Patient is delir ious and agitated, tachycardic and pale. She was incontinent of a large melanotic stool. IV access was obtained and the patient was hydrated with normal saline solution. She was started on a Protonix drip. Patient was placed on the radiation monitor. IV hydration was initiated, the patient did require 1 mg of IV Ativan as she was uncooperative and yelling. Patient's hemoglobin is noted to be 5.7 with an INR of 9.1. Patient's creatinine is elevated at 4.39 with a troponin of 0.137. Patient's lactic acid is 4.3. Patient was typed and crossed for 2 units of PRBCs. She was also ordered 2 units of FFP in addition to 10 mg of IV vitamin K. I spoke with her brother Donis for consent to tr ansfuse blood products. Case was discussed with Dr. Cross of the hospitalist service for further management. On my reevaluation, the pt was asleep with 2 peripheral lines established. She remains tachycardic but BP is stable. Impression & Plan GI hemorrhage, Delirium, Liver disease due to alcohol Discharge Plan Visit Data Chief Complaint: GI Bleed Stated Complaint: GI BLEED ED Provider: Lise Jeter Discharge Problem: GI hemorrhage, Delirium, Liver disease due to alcohol Discharge Instructions Interventions: ED Discharge Assessment Last Done: 11/14/19 06:25 Discharge Problem: GI hemorrhage Qualifiers: GI bleed type/associated pathology: unspecified gastrointestinal hemorrhage type Qualified Code(s): K92.2 - Gastrointestinal hemorrhage, unspecified
--- NOTE | 2019-11-14 07:23 | CT Scan Report ---
ABDOMEN AND PELVIS CT WITHOUT CONTRAST CT DOSE: 1777.95 mGy.cm HISTORY: Patient presents with acute upper gastrointestinal bleed. History of cirrhosis with hepatic steatosis. UGIB w/ h/o portal thrombus - elevated cr TECHNIQUE: Multiaxial CT images of the abdomen and pelvis were performed without contrast. A dose lo wering technique was utilized adhering to the principles of ALARA. COMPARISON STUDY: CT abdomen and pelvis 10/10/2019 FINDINGS: Study is limited without the use of contrast. Additionally, the study is motion degraded and limited by upper extremity positioning. Clear left lung base. Ill-defined groundglass opacities are noted inv olving the lateral basal segment right lower lobe suggestive of atelectasis versus minimal pneumoniti s. No pneumatosis or pneumoperitoneum. Coronary artery calcifications. Decreased attenuation of the c ardiac blood pool suggests anemia. Hepatic steatosis with cirrhosis. The unenhanced spleen, pancreas and adrenal glands appear unremarkable. Cholelithiasis. No definitive gallbladder wall thickening. Mild nonspecific bilateral perinephric stranding. Urinary bladder, uterus and adnexa are unremarkable . No renal or ureteral calculi. Moderate calcified plaque of the abdominal aorta. No adenopathy. Mode rate to large volume of abdominal pelvic ascites has increased from comparison. No bowel obstruction. Mild circumferential wall thickening of the rectum which is fluid-filled. Pelvic floor relaxation is suggested. The majority of the large bowel demonstrates thickened stephen likely secondary to partial distention. Surgical suture material adjacent to the cecum may reflect prior appendectomy. Mild gener alized body wall edema. Degenerative changes of the spine, pelvis and hips. There are multiple healin g subacute bilateral rib fractures. IMPRESSION: 1. Hepatic steatosis with cirrhotic liver disease and moderate to large volume of abdominopelvic asci madeline. 2. Nonspecific rectal wall thickening. Correlate clinically to exclude proctitis. 3. Healing subacute nondisplaced bilateral rib fractures. 4. Cholelithiasis. 5. No bowel obstruction or pneumoperitoneum. 6. Additional findings as above. ACT 112: Negative or not required by law. The above report was generated using voice recognition software. It may contain grammatical, syntax o r spelling errors. Electronically signed by: Lake Harrell M.D. 11/14/2019 7:21 AM
[2019-11-14] MEDS ORDERED: VANCOMYCIN HCL 2,000 MG in SODIUM CHLORIDE 0.9% 500 ML IV SCH (07:30)
[2019-11-14] MEDS: LACTULOSE SYRUP 10 GM/15 ML BTL 960 ML PO SCH ×2 (08:38→11:00)
[2019-11-14] MEDS: MAGNESIUM OXIDE 400 MG TAB PO SCH ×2 (08:38→18:46)
[2019-11-14] MEDS: MIDODRINE HCL 10 MG TAB PO SCH ×3 (08:39→12:54)
[2019-11-14] MEDS ORDERED: VALACYCLOVIR HCL 500 MG TABLET PO SCH (09:00)
[2019-11-14] MEDS ORDERED: FOLIC ACID 1 MG TAB PO SCH (09:00)
--- NOTE | 2019-11-14 09:07 | Pharmacy Report ---
Pharmacy Abx Initial Consult - Date of Service November 14, 2019 - Pharmacy Dosing Scope Date of Consult: 11/14/19 Consultation requested by: Dr. Cross Pharmacy is consulted to initiate Vancomycin and Invanz IV dosing therapy, order appropriate labs and adjust drug dose/frequency. - Subjective The patient is a 54 year old F admitted on 11/14/19 06:04. - Objective Height: 5 ft 6 in Weight: 78.5 kg Vital Signs (Past 12hrs): Vital Signs Temp Pulse Pulse Resp BP BP Pulse Ox 11/14/19 08:12 37.0 C 108 H 21 96/65 L 100 11/14/19 08:01 36.9 C 112 H 22 104/73 100 11/14/19 07:47 37.0 C 115 H 23 124/67 100 11/14/19 07:03 37.4 C 114 H 21 156/86 H 100 11/14/19 06:43 37.4 C 120 H 18 156/86 H 98 11/14/19 06:16 36.6 C 116 H 20 111/79 100 11/14/19 05:53 36.1 C L 115 H 20 100/73 96 11/14/19 05:43 36.7 C 111 H 22 107/73 11/14/19 05:06 115 H 24 107/73 100 11/14/19 04:21 143 H 24 104/50 L 96 11/14/19 03:55 96 11/14/19 03:48 37.6 C H 145 H 24 174/159 H 96 Lab Results (24hrs): Laboratory Tests (24 Hours) 11/14/19 11/14/19 03:50 03:50 WBC 19.54 H Creatinine 4.39 H Est Cr Clr Drug Dosing 14.7 - Risk Factors for Resistance * Hospitalization for 48 hours or more within the past 90 days: 10/05-10/10/19 * Antimicrobial use within the last 90 days include specific drugs, if known: Daptomycin, Invanz - Assessment & Plan Assessment 54 year old F on empiric IV Vancomycin and Invanz for GI indication - SBP prophylaxis. WBC and lactic acid elevated. * Admitted to ICU with GI elevated - INR was elevated. * Patient with poor renal function, therefore Vancomycin needs to be dosed prn random levels Plan Vancomycin IV * Loading dose: 2000 mg (~25 mg/kg) * Goal trough level for GI indication: 15 to 20 mcg/mL * Random level ordered for 11/15/19 with AM labs to determine next dose Invanz * Initiate Invanz 500mg IV q24 for CrCl <30 mL/min Pharmacy will continue to follow and will adjust dose/frequency as necessary. Thank you.
[2019-11-14] MEDS: OCTREOTIDE ACETATE 500 MCG in 0.9 % SODIUM CHLORIDE 100 ML IV SCH ×2 (09:11→18:04)
[2019-11-14] MEDS: FOLIC ACID 1 MG in SYRINGE 9.8 ML IV SCH (09:12)
[2019-11-14] MEDS: ERTAPENEM SODIUM 500 MG in SODIUM CHLORIDE 0.9% 50 ML IV SCH (09:12)
[2019-11-14] MEDS: THIAMINE HCL 100 MG in SYRINGE 9 ML IV SCH (09:12)
[2019-11-14] MEDS ORDERED: PERFLUTREN LIPID MICROSPHERE (DEFINITY) IV ONE (09:13)
[2019-11-14] MEDS: UMECLIDINIUM BROMIDE 62.5MCG/BLISTER 7 PUFFS/INHALER INH SCH (09:13)
--- NOTE | 2019-11-14 09:24 | Communication Note ---
Date of Service: November 14, 2019 54-year-old -[place] female with complex past medical history of portable thrombosis, A. fib on warfarin, liver cirrhosis with history of hepatorenal syndrome in the past admitted to the hospital with altered mental status initial hemoglobin was 5.7 with an INR of 9.1. Ethanol level is negative, Constitutional: No acute distress HEENT: PERRLA, scleral icterus Respiratory system: Good air entry bilaterally, no wheeze, no rhonchi, no crackles CVS: S1-S2 positive, no murmurs or gallops Abdomen: Soft, nontender, distended, positive bowel sounds x4 Extremities: +2 pulses bilaterally radialis/ dorsalis pedis, no cyanosis, +1 edema bilateral lower extremity Neuro: GCS: 9, please make note patient did get Ativan prior to me seeing her Psych: Unable to assess G/U: No Narvaez --Metabolic encephalopathy Multifactorial likely secondary to elevated ammonia level of [address] on top of bleed CT head negative Patient is currently maintaining her saturation. Patient was actually agitated in the ED and she was given Ativan to calm her down. In a cirrhotic patient it might linger for a while. If there is any compromises in her respiratory status will intubate her Continue with aspiration precautions -- Acute blood loss anaemia Likely secondary to GI loss Type and screen Transfuse as needed to keep hemoglobin greater than 7 Monitor H&H GI on board In a patient who is cirrhotic continue with Protonix drip and octreotide. Cirrhotic patient with possible variceal bleed she should be covered for empiric SBP. Patient is allergic to penicillin currently on ertapenem. There is no documentation the patient has varices. Case was discussed with GI. They are planning to scope her. Patient got so far 10 mg of vitamin K, 2 units of platelets, 1 unit of blood, 1 unit of FFP, 2 units FFP has been ordered. Prior to that we will repeat blood work If the PT/INR is still elevated we will give her PCC given that she needs intervention as soon as possible. --VENECIA on CKD On the previous admission there was thinking of possible hepatorenal syndrome We will follow-up urine lites Monitor BUNs/creatinine Avoid nephrotoxic medication -- HAGMA Delta-delta: 1.3, pure anion gap Likely sec to lactic acidosis on top of CKD Follow up serum osm, urine osm, urine lytes Follow up ABG Monitor --Leukocytosis Could be reactive secondary to bleed Continue with empiric antibiotics for the time being Nasal MRSA is negative CT chest does not show any infiltrates on the lower part of the lungs We will consider discontinuing vancomycin --Elevated troponins Likely type II NE in a patient who has CKD No ST-T wave changes appreciated on the EKG although the quality was not good. Monitor --History of paroxysmal A. fib Currently in sinus rhythm Rate controlled --History of seasonal affective disorder --Prophylaxis: DVT: IPC's GI: Protonix --Lines: Peripheral --Diet: N.p.o. We will do paracentesis later today diagnostic to rule out SBP. I have personally spent 35 minutes of critical care time in the direct management of this patient. This is a life/limb threatening event. This includes time spent evaluating patient, direct bedside care, chart review, placing orders, interpretation of diagnostic studies, discussion with consultants, patient, and family members, as well as other required patient management activities. This time is exclusive of all separately billable procedures, and teaching time and separate from and in addition to any other critical care service time. Please note the above document was generated using voice recognition software. It may contain grammatical, syntax or spelling errors. Coding Level of Care Code 44412 Prolonged Care (int'l) Time Spent (min) 35
[2019-11-14 09:48] LABS: Hematocrit (blood only) 15.5 % (37-47); Hemoglobin 5.5 g/dL (12.0-16.0)
[2019-11-14] MEDS ORDERED: PROTHROMBIN COMP CONC- KCENTRA 4,000 UNITS in SYRINGE 0 ML IV SCH (09:55)
--- NOTE | 2019-11-14 09:58 | Anesthesiology Consultation ---
Date of Service November 14, 2019 Dr. Gary decided to do the procedure without anesthesia as the patient is now intubated and sedated in the ICU. History Surgery Operation Date: 11/14/19 15:30 Proposed Procedures p Esophagogastroduodenoscopy Dr Marquez - Ronn Marquez MD Height/Weight Height: 5 ft 6 in Weight: 78.5 kg Allergies Allergy/AdvReac Type Severity Reaction Status Date / Time haloperidol Allergy Severe TONGUE Verified 11/14/19 04:10 SWELLING insulin lispro Allergy Intermediate HIVES Verified 11/14/19 04:10 phenol Allergy Intermediate HIVES Verified 11/14/19 04:10 citalopram Allergy Mild ITCHING Verified 11/14/19 04:10 sulfamethoxazole Allergy Mild RASH Verified 11/14/19 04:10 trimethoprim Allergy Mild RASH Verified 11/14/19 04:10 Bactrim Allergy Unknown RASH Verified 12/01/17 16:09 Penicillins Allergy Unknown Hives Verified 11/14/19 04:10 pregabalin [From Lyrica] AdvReac Severe SUICIDAL Verified 11/14/19 04:10 topiramate AdvReac Severe SEIZURE Verified 11/14/19 04:10 LIKE ACTIVITY oxycodone AdvReac Mild ITCH Verified 11/14/19 04:10 Margarine Allergy Severe RASH Uncoded 11/14/19 04:10 Medications Home Medications Medication Instructions Recorded Confirmed Last Taken valacyclovir 500 mg PO QAM 07/05/18 11/14/19 08/17/19 diltiazem HCl [Cartia XT] 300 mg PO QAM 12/01/18 11/14/19 08/17/19 folic acid 1 mg PO DAILY 08/17/19 11/14/19 Unknown perphenazine 8 mg PO BID 08/17/19 11/14/19 Unknown pantoprazole 40 mg PO QAM 30 Days #30 tab 08/21/19 11/14/19 Unknown Spiriva Respimat 2 puff INHALATION DAILY 10/06/19 11/14/19 Unknown hydroxyzine HCl 25 mg PO TID PRN 10/06/19 11/14/19 Unknown albuterol sulfate 2 puff INHALATION Q4H PRN 11/14/19 11/14/19 Unknown cholecalciferol (vitamin D3) 1,250 mcg PO WK 11/14/19 11/14/19 Unknown furosemide 20 mg PO DAILY 11/14/19 11/14/19 Unknown lactulose [Constulose] 15 ml PO TID 11/14/19 11/14/19 Unknown magnesium oxide 400 mg PO BID 11/14/19 11/14/19 Unknown midodrine 10 mg PO QID 11/14/19 11/14/19 Unknown potassium chloride 20 meq PO BID 11/14/19 11/14/19 Unknown warfarin 2.5 mg PO UD 11/14/19 11/14/19 Unknown Active Medications Generic Name Dose Route Start Last Admin Trade Name Freq PRN Reason Stop Dose Admin Pantoprazole Sodium 40 mg/ 100 mls @ 20 mls/hr 11/14/19 03:56 11/14/19 15:22 Dextrose IV 12/14/19 03:55 8 mg/hr Q5H CARLOS 20 mls/hr Administration 8 MG/HR Sodium Chloride 1,000 mls @ 50 mls/hr 11/14/19 06:46 11/14/19 15:24 Nss 1000ml IV 12/14/19 06:45 50 mls/hr .Q20H CARLOS Infusion Octreotide Acetate 500 mcg/ 105 mls @ 10.5 mls/hr 11/14/19 07:30 11/14/19 09:11 Sodium Chloride IV 12/14/19 07:29 50 mcg/hr .Q10H CARLOS 10.5 mls/hr Administration 50 MCG/HR Ertapenem 500 mg/ Sodium 55 mls @ 100 mls/hr 11/14/19 07:30 11/14/19 09:53 Chloride IV 11/24/19 05:59 Infused DAILY@0600 CARLOS Infusion Thiamine HCl 100 mg/ Syringe 10 mls @ 2 mls/min 11/14/19 09:00 11/14/19 09:12 IV 12/14/19 08:59 2 mls/min QAM CARLOS Administration Folic Acid 1 mg/ Syringe 10 mls @ 5 mls/min 11/14/19 09:00 11/14/19 09:12 IV 12/14/19 08:59 5 mls/min QAM CARLOS Administration Magnesium Oxide 400 mg 11/14/19 09:00 11/14/19 08:38 Mag-Ox PO 12/14/19 08:59 Not Given BID CARLOS Midodrine 10 mg 11/14/19 08:30 11/14/19 12:54 Proamatine PO 12/14/19 08:29 Not Given TID@0800,1200,1700 [facility] Umeclidinium Sanderson 1 puffs 11/14/19 09:00 11/14/19 09:13 Incruse Ellipta INH 12/14/19 08:59 Not Given DAILY [facility] Valacyclovir HCl 500 mg 11/14/19 09:00 11/14/19 08:38 Valtrex PO 12/14/19 08:59 Not Given QAM [facility] Past Medical History Medical History Alcohol induced acute pancreatitis (Resolved) Alcohol use disorder (Chronic) Atrial fibrillation (Chronic) paroxysmal Chronic generalized pain disorder (Chronic) COPD (chronic obstructive pulmonary disease) (Chronic) DM type 2 (diabetes mellitus, type 2) (Chronic) EtOH dependence (Inactive) Fatty liver (Chronic) History of opioid abuse (Chronic) HTN (hypertension) (Chronic) Hx of cocaine abuse Neuropathy (Chronic) Non-sustained ventricular tachycardia (Inactive) Obesity (Chronic) Paroxysmal atrial fibrillation Schizoaffective disorder (Chronic) Sciatic nerve disease (Chronic) Sleep apnea (Chronic) Tobacco use disorder (Chronic) Past Family History Family History Other Heart disease Kidney disease Past Surgical History Surgical History H/O foot surgery (Resolved) H/O ovarian cystectomy (Resolved) Social History Smoking Status: Current every day smoker tobacco type: cigarettes Smoking cigarettes per day: 10 Do You Dip or Chew Tobacco: No Hx Alcohol Use: Yes Alcohol type: wine and hard liquor alcohol intake frequency: 3 or more drinks per day Hx Substance Use: No substance use type: does not use Last Used Substance: Unknown Physical Exam Vital Signs Last Vital Signs Temp 37.6 C H 11/14/19 15:00 Pulse 134 H 11/14/19 16:44 Resp 20 11/14/19 16:15 BP 137/78 11/14/19 16:44 Pulse Ox 100 11/14/19 16:44 Testing Laboratory Results 11/14/19 14:19 11/14/19 14:19 PT 16.3 Seconds (9.0-12.0) H 11/14/19 14:19 INR 1.6 (0.9-1.1) H 11/14/19 14:19 APTT 39.8 Seconds (21.0-31.0) H 11/14/19 14:19 Urine Color [place] 11/14/19 10:15 Urine Appearance Cloudy (Clear) A 11/14/19 10:15 Urine pH 5.0 (4.5-7.5) 11/14/19 10:15 Ur Specific Martin 1.017 (1.000-1.030) 11/14/19 10:15 Urine Protein Negative (Negative) 11/14/19 10:15 Urine Glucose (UA) Negative (Negative) 11/14/19 10:15 Urine Ketones Trace (Negative) H 11/14/19 10:15 Urine Nitrite Positive (Negative) A 11/14/19 10:15 Ur Leukocyte Esterase 1+ (Negative) H 11/14/19 10:15 Urine WBC (Auto) 1-5 /hpf (0-5) 11/14/19 10:15 Urine RBC (Auto) 0-4 /hpf (0-4) 11/14/19 10:15 U Hyaline Cast (Auto) 1-5 /lpf (0-5) 11/14/19 10:15 U Epithel Cells (Auto) >30 /lpf (0-5) H 11/14/19 10:15 Urine Bacteria (Auto) 1+ (Negative) H 11/14/19 10:15 Blood Type O Positive 11/14/19 04:19 Antibody Screen NEGATIVE 11/14/19 04:19 11/14/19 10:53 POC Glucose 113 H Electrocardiogram Date: 11/14/19 Poor data quality, interpretation may be adversely affected Undetermined rhythm Low voltage QRS Left anterior fascicular block Septal infarct (cited on or before 14-NOV-2019) ST & T wave abnormality, consider lateral ischemia Abnormal ECG When compared with ECG of 07-OCT-2019 06:29, Current undetermined rhythm precludes rhythm comparison, needs review Left anterior fascicular block is now Present ... Chest X-Ray Date: 11/14/19 MPRESSION: Cardiomegaly without acute process. Echocardiogram Date: 12/18/19 EF: 50-55% LV Function: normal
[2019-11-14 10:01] LABS: INR 3.6 (0.9-1.1); Prothrombin Time 35.7 Seconds (9.0-12.0)
[2019-11-14 10:07] LABS: C Reactive Protein 5.36 mg/dl (0-0.29); Troponin I 0.141 ng/ml (0-0.045)
--- NOTE | 2019-11-14 10:07 | Gastrointestinal Consultation ---
Date of Consultation November 14, 2019 Assessment & Plan (1) GI hemorrhage: Emergent EGD at bedside. Will ask anesthesia to intubate and sedate bedside. I called her brother but he did not answer. If needed, admin consent. IV Albumin 1gm/kg due to [place] Nephrology consult for HRS. IV Octreotide and IV ABx. IV PPI. Septic work up in view of leukocytosis. Consider Levophed if needed to keep her map >65 Midodrine drip Urgent diagnostic paracentesis today Reverse coagulopathy with FFP, consider PCC if needed. Lactulose enema. Hold diuretics Not a candidate for Steroids for alcoholic hepatitis in view of sepsis and GI bleeding. Prognosis gaurded. (2) Supratherapeutic international normalized ratio (INR): (3) Hepatorenal syndrome: (4) Cirrhosis: (5) Ascites: (6) Hepatic encephalopathy: (7) Liver disease due to alcohol: History of Present Illness Attending Physician: Roxanne Callejas MD 54 years old female patient with alcoholic liver cirrhosis, recent decompensation, recent HRS, Ascites, PVT on Coumadin, EGD 08/19 no varices, colonoscopy normal, admitted with AMS after multiple episodes of rectal bleeding. Currently she is AMS and could not obtain more history. CT scan with cirrhosis, large ascites, gallstones, no jolly dil. ? rectal wall thickening but recent colonoscopy normal. MRCP 08/19 no jolly dil. Allergies Allergy/AdvReac Type Severity Reaction Status Date / Time haloperidol Allergy Severe TONGUE Verified 11/14/19 04:10 SWELLING insulin lispro Allergy Intermediate HIVES Verified 11/14/19 04:10 phenol Allergy Intermediate HIVES Verified 11/14/19 04:10 citalopram Allergy Mild ITCHING Verified 11/14/19 04:10 sulfamethoxazole Allergy Mild RASH Verified 11/14/19 04:10 trimethoprim Allergy Mild RASH Verified 11/14/19 04:10 Bactrim Allergy Unknown RASH Verified 12/01/17 16:09 Penicillins Allergy Unknown Hives Verified 11/14/19 04:10 pregabalin [From Lyrica] AdvReac Severe SUICIDAL Verified 11/14/19 04:10 topiramate AdvReac Severe SEIZURE Verified 11/14/19 04:10 LIKE ACTIVITY oxycodone AdvReac Mild ITCH Verified 11/14/19 04:10 Margarine Allergy Severe RASH Uncoded 11/14/19 04:10 Home Medications Home Medications Medication Instructions Recorded Confirmed Type valacyclovir 500 mg PO QAM 07/05/18 11/14/19 History diltiazem HCl [Cartia XT] 300 mg PO QAM 12/01/18 11/14/19 History folic acid 1 mg PO DAILY 08/17/19 11/14/19 History perphenazine 8 mg PO BID 08/17/19 11/14/19 History pantoprazole 40 mg PO QAM 30 Days #30 tab 08/21/19 11/14/19 Rx Spiriva Respimat 2 puff INHALATION DAILY 10/06/19 11/14/19 History hydroxyzine HCl 25 mg PO TID PRN 10/06/19 11/14/19 History albuterol sulfate 2 puff INHALATION Q4H PRN 11/14/19 11/14/19 History cholecalciferol (vitamin D3) 1,250 mcg PO WK 11/14/19 11/14/19 History furosemide 20 mg PO DAILY 11/14/19 11/14/19 History lactulose [Constulose] 15 ml PO TID 11/14/19 11/14/19 History magnesium oxide 400 mg PO BID 11/14/19 11/14/19 History midodrine 10 mg PO QID 11/14/19 11/14/19 History potassium chloride 20 meq PO BID 11/14/19 11/14/19 History warfarin 2.5 mg PO UD 11/14/19 11/14/19 History Patient History Medical History Alcohol induced acute pancreatitis (Resolved) Alcohol use disorder (Chronic) Atrial fibrillation (Chronic) paroxysmal Chronic generalized pain disorder (Chronic) COPD (chronic obstructive pulmonary disease) (Chronic) DM type 2 (diabetes mellitus, type 2) (Chronic) EtOH dependence (Inactive) Fatty liver (Chronic) History of opioid abuse (Chronic) HTN (hypertension) (Chronic) Hx of cocaine abuse Neuropathy (Chronic) Non-sustained ventricular tachycardia (Inactive) Obesity (Chronic) Paroxysmal atrial fibrillation Schizoaffective disorder (Chronic) Sciatic nerve disease (Chronic) Sleep apnea (Chronic) Tobacco use disorder (Chronic) Surgical History H/O foot surgery (Resolved) H/O ovarian cystectomy (Resolved) Family History Other Heart disease Kidney disease Social History Preferred Language: [place] Communication Ability: Unable Visual Impairment: No Limitations 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 Required: No Beliefs That Will Affect Care: None marital status: Single Current Living Situation: Family Current Living Situation Comment: lives with brother current occupational status: unemployed and disabled Other Information That Helps Us Care for You: No Feels Safe at Home: Yes Safety Concerns: Feels Safe At This Time Smoking Status: Current every day smoker Tobacco Type: cigarettes ; Cigarettes Per Day: 10 ; Do You Dip or Chew Tobacco: No ; Tobacco Cessation Education Requested by Patient: No Hx Alcohol Use: Yes Alcohol type: wine and hard liquor Hx Substance Use: No Review of Systems Review of Systems: Unobtainable due to reduced consciousness Physical Exam Constitutional: + altered mental status Eyes: + scleral abnormality (Icterus) Respiratory: normal respiratory effort, lungs clear to auscultation Cardiovascular: RRR, no murmur, no edema Gastrointestinal (Abdomen): Percussion/Palpation: abdomen soft, + hepatomegaly and + ascites Results & Data ([facility]) Vital Signs (Past 12 Hours) Vital Signs Temp Pulse Pulse Resp BP BP Pulse Ox 11/14/19 09:42 36.6 C 110 H 25 H 116/72 100 11/14/19 09:27 111 H 24 113/71 99 11/14/19 09:23 36.8 C 111 H 22 104/80 100 11/14/19 09:09 37.3 C 108 H 20 104/87 100 11/14/19 09:06 37.4 C 109 H 22 110/84 99 11/14/19 08:58 111 H 23 100 11/14/19 08:57 113 H 24 109/93 100 11/14/19 08:41 100 H 22 106/66 100 11/14/19 08:30 37.2 C 107 H 20 109/93 100 11/14/19 08:26 115 H 21 104/73 100 11/14/19 08:12 37.0 C 109 H 21 96/65 L 100 11/14/19 08:01 36.9 C 110 H 21 104/73 100 11/14/19 07:59 112 H 22 104/73 100 11/14/19 07:47 37.0 C 117 H 20 122/67 100 11/14/19 07:03 37.4 C 125 H 114 H 25 H 156/86 H 100 11/14/19 06:43 37.4 C 120 H 18 156/86 H 98 11/14/19 06:16 36.6 C 116 H 20 111/79 100 11/14/19 05:53 36.1 C L 115 H 20 100/73 96 11/14/19 05:43 36.7 C 111 H 22 107/73 11/14/19 05:06 115 H 24 107/73 100 11/14/19 04:21 143 H 24 104/50 L 96 11/14/19 03:55 96 11/14/19 03:48 37.6 C H 145 H 24 174/159 H 96 Laboratory Results Laboratory Results - last 24 hr 11/14/19 11/14/19 11/14/19 03:25 03:50 03:50 WBC 19.54 H RBC 1.57 L Hgb 5.7 L* Hct 16.0 L* MCV 101.9 H MCH 36.3 H MCHC 35.6 RDW Std Deviation 69.6 H RDW Coeff of Ally 19.5 H Plt Count 106 L MPV 10.4 Neutrophils % (Manual) 91.3 Lymphocytes % (Manual) 6.1 Monocytes % (Manual) 1.7 Basophils % (Manual) 0.9 Neutrophils # (Manual) 17.84 H Total Absolute Neuts 17.84 H Lymphocytes # (Manual) 1.19 L Total Abs Lymphocytes 1.19 L Monocytes # (Manual) 0.33 Basophils # (Manual) 0.18 Hypochromasia Present Poikilocytosis Present Target Cells 1+ ESR PT INR APTT PTT Ratio Sodium 136 Potassium 4.0 Chloride 103 Carbon Dioxide 19 L Anion Gap 14.0 H BUN 55 H Creatinine 4.39 H Est Cr Clr Drug Dosing 14.7 Est GFR ( Amer) 12.3 Est GFR (Non-Af Amer) 10.6 BUN/Creatinine Ratio 12.6 Glucose 83 Osmolality Lactate Calcium 7.9 L Total Bilirubin 4.2 H AST 29 ALT 14 Alkaline Phosphatase 144 H Ammonia Troponin I 0.137 H* C-Reactive Protein Total Protein 8.1 Albumin 1.9 L Globulin 6.2 H Albumin/Globulin Ratio 0.3 L Procalcitonin 1.10 H Nasal Screen MRSA (PCR) POC Stool Occult Blood Ethyl Alcohol mg/dL Blood Type Antibody Screen Crossmatch 11/14/19 11/14/19 11/14/19 03:50 03:50 03:53 WBC RBC Hgb Hct MCV MCH MCHC RDW Std Deviation RDW Coeff of Ally Plt Count MPV Neutrophils % (Manual) Lymphocytes % (Manual) Monocytes % (Manual) Basophils % (Manual) Neutrophils # (Manual) Total Absolute Neuts Lymphocytes # (Manual) Total Abs Lymphocytes Monocytes # (Manual) Basophils # (Manual) Hypochromasia Poikilocytosis Target Cells ESR PT 84.9 H INR 9.1 H* APTT 82.3 H* PTT Ratio 2.9 Sodium Potassium Chloride Carbon Dioxide Anion Gap BUN Creatinine Est Cr Clr Drug Dosing Est GFR ( Amer) Est GFR (Non-Af Amer) BUN/Creatinine Ratio Glucose Osmolality Lactate Calcium Total Bilirubin AST ALT Alkaline Phosphatase Ammonia Troponin I C-Reactive Protein Total Protein Albumin Globulin Albumin/Globulin Ratio Procalcitonin Nasal Screen MRSA (PCR) POC Stool Occult Blood Ethyl Alcohol mg/dL Blood Type Cancelled Antibody Screen Cancelled Crossmatch 11/14/19 11/14/19 11/14/19 04:03 04:03 04:19 WBC RBC Hgb Hct MCV MCH MCHC RDW Std Deviation RDW Coeff of Ally Plt Count MPV Neutrophils % (Manual) Lymphocytes % (Manual) Monocytes % (Manual) Basophils % (Manual) Neutrophils # (Manual) Total Absolute Neuts Lymphocytes # (Manual) Total Abs Lymphocytes Monocytes # (Manual) Basophils # (Manual) Hypochromasia Poikilocytosis Target Cells ESR PT INR APTT PTT Ratio Sodium Potassium Chloride Carbon Dioxide Anion Gap BUN Creatinine Est Cr Clr Drug Dosing Est GFR ( Amer) Est GFR (Non-Af Amer) BUN/Creatinine Ratio Glucose Osmolality Lactate 4.3 H* Calcium Total Bilirubin AST ALT Alkaline Phosphatase Ammonia Troponin I C-Reactive Protein Total Protein Albumin Globulin Albumin/Globulin Ratio Procalcitonin Nasal Screen MRSA (PCR) POC Stool Occult Blood Ethyl Alcohol mg/dL < 3.0 Blood Type O Positive Antibody Screen NEGATIVE Crossmatch See Detail 11/14/19 11/14/19 11/14/19 04:59 07:00 09:25 WBC RBC Hgb Hct MCV MCH MCHC RDW Std Deviation RDW Coeff of Ally Plt Count MPV Neutrophils % (Manual) Lymphocytes % (Manual) Monocytes % (Manual) Basophils % (Manual) Neutrophils # (Manual) Total Absolute Neuts Lymphocytes # (Manual) Total Abs Lymphocytes Monocytes # (Manual) Basophils # (Manual) Hypochromasia Poikilocytosis Target Cells ESR PT INR APTT PTT Ratio Sodium Potassium Chloride Carbon Dioxide Anion Gap BUN Creatinine Est Cr Clr Drug Dosing Est GFR ( Amer) Est GFR (Non-Af Amer) BUN/Creatinine Ratio Glucose Osmolality Lactate 4.1 H* Calcium Total Bilirubin AST ALT Alkaline Phosphatase Ammonia 41.0 H Troponin I C-Reactive Protein Total Protein Albumin Globulin Albumin/Globulin Ratio Procalcitonin Nasal Screen MRSA (PCR) Negative POC Stool Occult Blood Ethyl Alcohol mg/dL Blood Type Antibody Screen Crossmatch 11/14/19 11/14/19 11/14/19 09:25 09:25 09:25 WBC RBC Hgb 5.5 L* Hct 15.5 L* MCV MCH MCHC RDW Std Deviation RDW Coeff of Ally Plt Count MPV Neutrophils % (Manual) Lymphocytes % (Manual) Monocytes % (Manual) Basophils % (Manual) Neutrophils # (Manual) Total Absolute Neuts Lymphocytes # (Manual) Total Abs Lymphocytes Monocytes # (Manual) Basophils # (Manual) Hypochromasia Poikilocytosis Target Cells ESR PT INR APTT PTT Ratio Sodium Potassium Chloride Carbon Dioxide Anion Gap BUN Creatinine Est Cr Clr Drug Dosing Est GFR ( Amer) Est GFR (Non-Af Amer) BUN/Creatinine Ratio Glucose Osmolality 302 H Lactate Calcium Total Bilirubin AST ALT Alkaline Phosphatase Ammonia Troponin I 0.141 H* C-Reactive Protein 5.36 H Total Protein Albumin Globulin Albumin/Globulin Ratio Procalcitonin Nasal Screen MRSA (PCR) POC Stool Occult Blood Ethyl Alcohol mg/dL Blood Type Antibody Screen Crossmatch 11/14/19 11/14/19 11/14/19 09:25 09:25 Unknown WBC RBC Hgb Hct MCV MCH MCHC RDW Std Deviation RDW Coeff of Ally Plt Count MPV Neutrophils % (Manual) Lymphocytes % (Manual) Monocytes % (Manual) Basophils % (Manual) Neutrophils # (Manual) Total Absolute Neuts Lymphocytes # (Manual) Total Abs Lymphocytes Monocytes # (Manual) Basophils # (Manual) Hypochromasia Poikilocytosis Target Cells ESR 29 H PT 35.7 H INR 3.6 H APTT PTT Ratio Sodium Potassium Chloride Carbon Dioxide Anion Gap BUN Creatinine Est Cr Clr Drug Dosing Est GFR ( Amer) Est GFR (Non-Af Amer) BUN/Creatinine Ratio Glucose Osmolality Lactate Calcium Total Bilirubin AST ALT Alkaline Phosphatase Ammonia Troponin I C-Reactive Protein Total Protein Albumin Globulin Albumin/Globulin Ratio Procalcitonin Nasal Screen MRSA (PCR) POC Stool Occult Blood Positive A Ethyl Alcohol mg/dL Blood Type Antibody Screen Crossmatch (1) GI hemorrhage GI bleed type/associated pathology: unspecified gastrointestinal hemorrhage type Qualified Code(s): K92.2 - Gastrointestinal hemorrhage, unspecified (2) Ascites Ascites type: other type Qualified Code(s): R18.8 - Other ascites
[2019-11-14 10:22] LABS: iSTAT Allen Test Pass; iSTAT Arterial Blood Gas HCO3 19 meg/L (19-24); iSTAT Arterial Blood Gas pCO2 24 mmHg (35-46); iSTAT Arterial Blood Gas pO2 108 mmHg (80-95); iSTAT Carbon Dioxide 19 mmol/L (24-31); iSTAT Site R Radial
[2019-11-14 10:35] LABS: Appearance Urine Cloudy (Clear); Blood Urine Negative (Negative); Epithelial Cell Urine Auto >30 /lpf (0-5); Glucose Urine UA Negative (Negative); Ketones Urine Trace (Negative); Leukocyte Esterase Urine 1+ (Negative); Nitrite Urine Positive (Negative); Protein Urine Negative (Negative); Specific Gravity Urine 1.017 (1.000-1.030); Urobilinogen Urine Negative (Negative)
[2019-11-14 10:45] LABS: Bilirubin Urine Negative (Negative); Color Urine Amber; Ictotest Urine Negative (Negative)
--- NOTE | 2019-11-14 10:45 | Nephrology Consultation ---
Date of Consultation November 14, 2019 Assessment & Plan (1) Acute renal failure (ARF): Patient with acute renal failure likely due to ischemic ATN in setting of GI bleeding. Patient is anuric. Creatinine is 4.3 which is up from 3.5 at the time of discharge about a month ago. Hemoglobin was 5.5 on admission. Blood pressure has been fairly stable with systolic between 100-130. Hepatorenal s yndrome is diagnosis of exclusion and usually renal function does not improve after volume resuscitation. Management of ATN is supportive. Electrolytes are stable and no indication for dialysis. -Urine sodium, urine microscopy -Continue volume resuscitation with blood and FFP. -If patient becomes hypotensive, recommend using albumin for volume resuscitation instead of normal saline. -Daily BMP -Monitor input output (2) Hepatic encephalopathy: Patient with diabetic encephalopathy and GI bleeding. She is planned for emergent EGD per gastroenterology. Encephalopathy is not due to uremia as BUN is only 55 and patient has GI bleeding. We will continue to monitor mental status closely. No indication for dialysis at the moment. (3) Acute blood loss anemia: Due to GI bleed. Continue blood transfusion as needed. No role for Epogen in setting of acute kidney injury History of Present Illness Reason for Consultation: Acute renal failure Requesting Physician: Roxanne Callejas MD Attending Physician: Roxanne Callejas MD History of Present Illness This is 54-year-old female with history of alcoholic cirrhosis which is decompensated with ascites and esophageal varices, portal vein thrombosis on Coumadin, paroxysmal A. fib, COPD, type 2 diabetes, 6 affective disorder and CKD stage III with baseline creatinine of 1.2 but multiple episodes of acute kidney injury who was admitted on 11/14/2019 with altered mental status after multiple episodes of GI bleeding at home. Patient is unable to give history due to altered mental status. Per ED notes patient reportedly had several days of rectal bleeding. Admission hemoglobin was 5.5. She has received 2 units of blood and FFP. she is planned to receive more blood transfusion. She had a CT abdomen which showed tense ascites and possible gallstones. No hydronephrosis or renal stones. She has lactate of 4.3. Her creatinine is up to 4.3 up from 3.5 in September during last admission. Her blood pressure has been fairly stable with systolic between 100-130. She has been tachycardic. Narvaez catheter was placed and there was no urine output. Allergies Allergy/AdvReac Type Severity Reaction Status Date / Time haloperidol Allergy Severe TONGUE Verified 11/14/19 04:10 SWELLING insulin lispro Allergy Intermediate HIVES Verified 11/14/19 04:10 phenol Allergy Intermediate HIVES Verified 11/14/19 04:10 citalopram Allergy Mild ITCHING Verified 11/14/19 04:10 sulfamethoxazole Allergy Mild RASH Verified 11/14/19 04:10 trimethoprim Allergy Mild RASH Verified 11/14/19 04:10 Bactrim Allergy Unknown RASH Verified 12/01/17 16:09 Penicillins Allergy Unknown Hives Verified 11/14/19 04:10 pregabalin [From Lyrica] AdvReac Severe SUICIDAL Verified 11/14/19 04:10 topiramate AdvReac Severe SEIZURE Verified 11/14/19 04:10 LIKE ACTIVITY oxycodone AdvReac Mild ITCH Verified 11/14/19 04:10 Margarine Allergy Severe RASH Uncoded 11/14/19 04:10 Home Medications Home Medications Medication Instructions Recorded Confirmed Type valacyclovir 500 mg PO QAM 07/05/18 11/14/19 History diltiazem HCl [Cartia XT] 300 mg PO QAM 12/01/18 11/14/19 History folic acid 1 mg PO DAILY 08/17/19 11/14/19 History perphenazine 8 mg PO BID 08/17/19 11/14/19 History pantoprazole 40 mg PO QAM 30 Days #30 tab 08/21/19 11/14/19 Rx Spiriva Respimat 2 puff INHALATION DAILY 10/06/19 11/14/19 History hydroxyzine HCl 25 mg PO TID PRN 10/06/19 11/14/19 History albuterol sulfate 2 puff INHALATION Q4H PRN 11/14/19 11/14/19 History cholecalciferol (vitamin D3) 1,250 mcg PO WK 11/14/19 11/14/19 History furosemide 20 mg PO DAILY 11/14/19 11/14/19 History lactulose [Constulose] 15 ml PO TID 11/14/19 11/14/19 History magnesium oxide 400 mg PO BID 11/14/19 11/14/19 History midodrine 10 mg PO QID 11/14/19 11/14/19 History potassium chloride 20 meq PO BID 11/14/19 11/14/19 History warfarin 2.5 mg PO UD 11/14/19 11/14/19 History Patient History Medical History Alcohol induced acute pancreatitis (Resolved) Alcohol use disorder (Chronic) Atrial fibrillation (Chronic) paroxysmal Chronic generalized pain disorder (Chronic) COPD (chronic obstructive pulmonary disease) (Chronic) DM type 2 (diabetes mellitus, type 2) (Chronic) EtOH dependence (Inactive) Fatty liver (Chronic) History of opioid abuse (Chronic) HTN (hypertension) (Chronic) Hx of cocaine abuse Neuropathy (Chronic) Non-sustained ventricular tachycardia (Inactive) Obesity (Chronic) Paroxysmal atrial fibrillation Schizoaffective disorder (Chronic) Sciatic nerve disease (Chronic) Sleep apnea (Chronic) Tobacco use disorder (Chronic) Surgical History H/O foot surgery (Resolved) H/O ovarian cystectomy (Resolved) Family History Other Heart disease Kidney disease Social History Preferred Language: German Communication Ability: Unable Visual Impairment: No Limitations Physical Therapist Required: No Beliefs That Will Affect Care: None marital status: Single Current Living Situation: Family Current Living Situation Comment: lives with brother current occupational status: unemployed and disabled Other Information That Helps Us Care for You: No Feels Safe at Home: Yes Safety Concerns: Feels Safe At This Time Smoking Status: Current every day smoker Tobacco Type: cigarettes ; Cigarettes Per Day: 10 ; Do You Dip or Chew Tobacco: No ; Tobacco Cessation Education Requested by Patient: No Hx Alcohol Use: Yes Alcohol type: wine and hard liquor Hx Substance Use: No Review of Systems Review of Systems: Unobtainable due to cognitive status Physical Exam Physical Exam: General exam: Patient is drowsy, does not answer questions. HEENT: Pupils are equal and reactive to light Neck: Positive JVD, neck is supple trachea is midline Respiratory system: Clear breath sounds bilaterally. Gastrointestinal: Abdomen is distended and tense, dullness in the flanks, bowel sounds are present CVS: Tachycardic but regular. No murmurs, rubs or gallops Musculoskeletal: No joint or muscle tenderness Extremities: 1+ edema, peripheral pulses are present Neuro: Drowsy, unable to answer questions. Becomes agitated with pain Skin: No rashes Results & Data Vital Signs (Past 12 Hours) Vital Signs Temp Pulse Pulse Resp BP BP Pulse Ox 11/14/19 10:30 37.2 C 109 H 23 102/65 100 11/14/19 10:12 37.2 C 100 H 22 136/81 100 11/14/19 10:05 36.9 C 98 H 21 126/94 100 11/14/19 09:42 36.6 C 110 H 25 H 116/72 100 11/14/19 09:27 111 H 24 113/71 99 11/14/19 09:23 36.8 C 111 H 22 104/80 100 11/14/19 09:09 37.3 C 108 H 20 104/87 100 11/14/19 09:06 37.4 C 109 H 22 110/84 99 11/14/19 08:58 111 H 23 100 11/14/19 08:57 113 H 24 109/93 100 11/14/19 08:41 100 H 22 106/66 100 11/14/19 08:30 37.2 C 107 H 20 109/93 100 11/14/19 08:26 115 H 21 104/73 100 11/14/19 08:12 37.0 C 109 H 21 96/65 L 100 11/14/19 08:01 36.9 C 110 H 21 104/73 100 11/14/19 07:59 112 H 22 104/73 100 11/14/19 07:47 37.0 C 117 H 20 122/67 100 11/14/19 07:03 37.4 C 125 H 114 H 25 H 156/86 H 100 11/14/19 06:43 37.4 C 120 H 18 156/86 H 98 11/14/19 06:16 36.6 C 116 H 20 111/79 100 11/14/19 05:53 36.1 C L 115 H 20 100/73 96 11/14/19 05:43 36.7 C 111 H 22 107/73 11/14/19 05:06 115 H 24 107/73 100 11/14/19 04:21 143 H 24 104/50 L 96 11/14/19 03:55 96 11/14/19 03:48 37.6 C H 145 H 24 174/159 H 96 Laboratory Results 11/14/19 03:50 11/14/19 11/14/19 03:50 03:50 WBC 19.54 H RBC 1.57 L MCV 101.9 H MCH 36.3 H MCHC 35.6 RDW Std Deviation 69.6 H RDW Coeff of Ally 19.5 H Plt Count 106 L MPV 10.4 Albumin 1.9 L (1) Acute renal failure (ARF) Acute renal failure type: unspecified Qualified Code(s): N17.9 - Acute kidney failure, unspecified
[2019-11-14 10:49] LABS: Bacteria Urine Automated 1+ (Negative); RBC Urine Automated 0-4 /hpf (0-4)
[2019-11-14 11:15] LABS: Amphetamines+Metham, Urine Neg (Neg); Barbiturates, Urine Neg (Neg); Benzodiazepine, Urine Neg (Neg); Chloride Random Urine < 10 mmol/L; Cocaine, Urine Neg (Neg); MDMA (Ecstacy), Urine Neg (Neg); Methadone, Urine Neg (Neg); Opiate, Urine Neg (Neg); Phencyclidine, Urine Neg (Neg); Potassium Random Urine 18.1 mmol/L; Sodium Random Urine 6 mmol/L; Uric Acid Urine Random 13.8 mg/dl
--- NOTE | 2019-11-14 11:18 | Electrocardiogram Report ---
Test Reason : Blood Pressure : / mmHG Vent. Rate : 131 BPM Atrial Rate : 133 BPM P-R Int : 170 ms QRS Dur : 088 ms QT Int : 340 ms P-R-T Axes : 029 -50 114 degrees QTc Int : 502 ms Poor data quality, interpretation may be adversely affected Likely sinus tachycardia with PVCs Low voltage QRS Left anterior fascicular block Septal infarct (cited on or before 14-NOV-2019) Abnormal ECG When compared with ECG of 07-OCT-2019 06:29, Left anterior fascicular block is now Present PVCs are present Confirmed by En Hein ([id number]) on 11/14/2019 11:18:07 AM Referred By: REFERRED SELF Confirmed By:Oscar Hein
--- NOTE | 2019-11-14 11:19 | Ultrasound Report ---
US gallbladder HISTORY: 54 years-old Female gall bladder disease acute right upper quadrant abdominal pain COMPARISON: CT abdomen and pelvis of same day TECHNIQUE: Multiple real-time sonographic images of the abdominal right upper quadrant were obtained assessing grayscale appearance and color flow FINDINGS: Hepatic steatosis with cirrhosis. No hepatic mass lesion or biliary ductal dilation identified. Hepat opedal flow noted within the portal vein. Study is limited secondary to patient condition and body friend bitus. Pancreas is obscured by bowel gas abdominal ascites. Mild gallbladder distention. Gallbladder wall is mildly thickened measuring 4 mm. Cholelithiasis and gallbladder sludge. Common bile duct is n ormal, 5 mm. Imaged right kidney is unremarkable without hydronephrosis. IMPRESSION: 1. Hepatic steatosis with cirrhosis and abdominal ascites. 2. Mild gallbladder distention with cholelithiasis, tumefactive sludge and mild wall thickening. The wall thickening is likely secondary to underlying cirrhotic liver disease, however if there is clinic al concern for acute cholecystitis, correlation with nuclear medicine hepatobiliary scan should be co nsidered. 3. No biliary ductal dilation. ACT 112: Negative or not required by law. The above report was generated using voice recognition software. It may contain grammatical, syntax o r spelling errors. Electronically signed by: Lake Harrell M.D. 11/14/2019 11:17 AM
[2019-11-14] MEDS: ALBUMIN 25% 50 ML IV SCH ×6 (11:59→22:30)
--- NOTE | 2019-11-14 13:30 | Hospitalist Progress Note ---
Date of Service November 14, 2019 Assessment & Plan (1) AMS (altered mental status): (2) Hepatic encephalopathy: (3) Liver disease due to alcohol: (4) Cirrhosis: Hepatic encephalopathy In the setting of GI bleed in a patient with decompensated alcoholic liver cirrhosis. Management of GI bleed as below Ammonia level was 41. Continue lactulose as needed GI recommendations appreciated Will need paracentesis to rule out SBP Lactate was 4.3. Could be from liver pathology. Also possible sepsis. Follow-up blood cultures Continue broad-spectrum antibiotics Trend lactate with resuscitation Low threshold for intubation considering patient's current mental status (5) GI hemorrhage: (6) Supratherapeutic international normalized ratio (INR): (7) Acute blood loss anemia: GI bleed in patient with decompensated alcoholic cirrhosis Will need emergent EGD once stabilized INR on admission was 9.1, hemoglobin was 5.7 So far has got 2 PRBC, 2 FFP, vitamin K and Kcentra INR reduced to 3.6 Monitor hemoglobin and transfuse PRN GI on board Coumadin on hold Continue IV PPI and octreotide (8) Elevated troponin: Likely from demand from blood loss anemia Echo done was unremarkable (9) Sleep apnea: May need mechanical ventilation considering mental status (10) Thrombosis, portal vein: Coumadin on hold as noted above (11) Schizoaffective disorder: Not on any meds for now We will reevaluate once medically stabilized (12) COPD (chronic obstructive pulmonary disease): Stable Continue home inhalers Admission and Anticipated Discharge Date Admission Date: November 14, 2019 Subjective Patient seen and examined. Patient is lethargic, groans to noxious stimuli. So far patient has received 2 PRBC, 2 FFP, vitamin K and PCC Review of Systems Review of Systems: Unobtainable due to reduced consciousness Physical Exam Constitutional: Somnolent, groans to noxious stimuli Eyes: Icteric ENMT: external ear and nose normal, oropharynx normal Respiratory: normal respiratory effort, lungs clear to auscultation Cardiovascular: Rate/Rhythm: regular rhythm and + tachycardic Heart Sounds: normal S1 and normal S2; no murmur Extremities: no edema Gastrointestinal (Abdomen): Inspection/Auscultation: + abdomen distended and normal bowel sounds Percussion/Palpation: abdomen soft; abdomen nontender Neurologic: Somnolent Groans to noxious stimuli Results & Data Results & Data ([facility]) Vital Signs (Past 12 Hours) Vital Signs Temp Pulse Pulse Resp BP BP Pulse Ox 11/14/19 13:00 37.6 C H 109 H 24 115/78 11/14/19 12:46 37.0 C 102 H 24 140/90 11/14/19 12:15 37.0 C 113 H 29 H 123/76 99 11/14/19 12:11 37.2 C 109 H 26 H 123/76 11/14/19 12:05 112 H 28 H 11/14/19 11:45 36.8 C 106 H 24 134/96 11/14/19 11:13 37.4 C 112 H 24 139/87 11/14/19 10:46 37.3 C 111 H 24 139/75 11/14/19 10:30 37.2 C 109 H 23 102/65 11/14/19 10:12 37.2 C 100 H 22 136/81 11/14/19 10:05 36.9 C 98 H 21 126/94 11/14/19 09:42 36.6 C 110 H 25 H 116/72 11/14/19 09:27 111 H 24 113/71 11/14/19 09:23 36.8 C 111 H 22 104/80 11/14/19 09:09 37.3 C 108 H 20 104/87 11/14/19 09:06 37.4 C 109 H 22 110/84 99 11/14/19 08:58 111 H 23 11/14/19 08:57 113 H 24 109/93 11/14/19 08:41 100 H 22 106/66 11/14/19 08:30 37.2 C 107 H 20 109/93 11/14/19 08:26 115 H 21 104/73 11/14/19 08:12 37.0 C 109 H 21 96/65 L 11/14/19 08:01 36.9 C 110 H 21 104/73 11/14/19 07:59 112 H 22 104/73 11/14/19 07:47 37.0 C 117 H 20 122/67 11/14/19 07:03 37.4 C 125 H 114 H 25 H 156/86 H 11/14/19 06:43 37.4 C 120 H 18 156/86 H 98 11/14/19 06:16 36.6 C 116 H 20 111/79 100 11/14/19 05:53 36.1 C L 115 H 20 100/73 96 11/14/19 05:43 36.7 C 111 H 22 107/73 11/14/19 05:06 115 H 24 107/73 100 11/14/19 04:21 143 H 24 104/50 L 96 11/14/19 03:55 96 11/14/19 03:48 37.6 C H 145 H 24 174/159 H 96 Laboratory Results Short CBC 11/14/19 11/14/19 Range/Units 03:50 09:25 WBC 19.54 H (4.8-10.8) K/uL Hgb 5.7 L* 5.5 L* (12.0-16.0) g/dL Hct 16.0 L* 15.5 L* (37-47) % Plt Count 106 L (130-400) K/uL BMP 11/14/19 03:50 Sodium 136 Potassium 4.0 Chloride 103 Carbon Dioxide 19 L BUN 55 H Creatinine 4.39 H Glucose 83 Calcium 7.9 L Cardiac Enzymes 11/14/19 11/14/19 Range/Units 03:50 09:25 Troponin I 0.137 H* 0.141 H* (0-0.045) ng/ml Liver Function 11/14/19 Range/Units 03:50 Total Bilirubin 4.2 H (0.2-1) mg/dl AST 29 (15-37) U/L ALT 14 (12-78) U/L Alkaline Phosphatase 144 H (45-117) U/L Albumin 1.9 L (3.4-5.0) gm/dl Urine 11/14/19 Range/Units 10:15 Urine Color [place] Urine Appearance Cloudy A (Clear) Urine pH 5.0 (4.5-7.5) Ur Specific [place] 1.017 (1.000-1.030) Urine Protein Negative (Negative) Urine Glucose (UA) Negative (Negative) (1) GI hemorrhage GI bleed type/associated pathology: unspecified gastrointestinal hemorrhage type Qualified Code(s): K92.2 - Gastrointestinal hemorrhage, unspecified (2) Schizoaffective disorder Schizoaffective disorder type: unspecified Qualified Code(s): F25.9 - Schizoaffective disorder, unspecified
--- NOTE | 2019-11-14 14:10 | History and Physical Report ---
DATE OF ADMISSION: 11/14/2019 CHIEF COMPLAINT: Confusion. HISTORY OF PRESENT ILLNESS: This is a 54-year-old female with past medical history significant for alcoholic liver cirrhosis, portal vein thrombosis, COPD, sleep apnea, paroxysmal atrial fibrillation, hypertension, hepatorenal failure, GERD, osteoarthritis, alcohol dependence, nmomh-lz-sujnhoo anemia, history of bipolar disorder, schizoaffective disorder, tobacco use disorder, history of TIAs, imbalance, generalized anxiety disorder, malingering, history of substance abuse, paranoid personality disorder, presents with confusion. The patient lives with her brother. As per the brother in the last couple of days, her appetite is down. She is not eating much or drinking much and tonight, she was confused, disoriented. She went to bathroom and he noticed blood in the stools, and she was brought into the hospital. In the ER, she is confused, groaning, somewhat noncooperative with the exam, she was tachycardic, has mild temperature spike, leukocytosis of 19.5, hemoglobin of 5.7, platelets of 106. INR 9.1, creatinine 4.3. Lactate 4.3, total bilirubin 4.2. Ammonia 41. Troponin I of 0.12. Stool occult blood was positive. Ethyl alcohol less than 3 . Could not get any history from the patient. Talked to the brother; as per the brother, the patient is still drinking, but in the last 2 days since her appetite is down, she is not drinking, but prior to that she used to drink 2-3 beers and shots of hard liquor. She was here in September and transferred to [facility] for hepatorenal syndrome,and also decompression with liver cirrhosis. She was there a few days and started on midodrine. Coumadin was started for portal vein thrombosis; [facility] wanted to keep her for 1 more day, but she wanted to get discharged and was discharged. ALLERGIES: BACTRIM, HUMALOG, LYRICA, PENICILLIN G, PERCOCET. PAST MEDICAL HISTORY: As mentioned above. PAST SURGICAL HISTORY: Colonoscopy, EGDs, foot surgery, removal of ovarian cyst. MEDICATIONS: As per the Epic, Lasix 20 mg p.o. daily, lactulose 50 mg p.o. t.i.d. p.r.n., vitamin D 5000 units capsule once a week, magnesium oxide 400 mg p.o. b.i.d., midodrine 10 mg p.o. q.i.d., Coumadin 2.5 mg as directed, hydroxyzine 25 mg p.o. t.i.d. p.r.n., Zyrtec 10 mg p.o. daily, albuterol 2 puffs every 4 times a day, Spiriva Respimat 2 puffs daily, calcium plus vitamin D 1 pill daily, folic acid 1 mg p.o. daily, thiamine 100 mg p.o. daily, Valtrex 500 mg p.o. daily, oxygen as directed at bedtime. FAMILY HISTORY: Significant for brother has liver cancer. Father has cancer, heart disease, kidney failure disease. Brother has mental retardation. Maternal aunt has breast cancer. SOCIAL HISTORY: Currently living with her brother. Smokes quarter pack a day. Alcohol, drinks 2-3 bears and 1-2 glasses of hard liquor. History of polysubstance abuse in the past. REVIEW OF SYSTEMS: Could not obtainable at this time. PHYSICAL EXAMINATION: VITAL SIGNS: T-max 37.6, pulse 116, respiratory rate 20, blood pressure 111/79, oxygen 100% on room air. Ge: Drowsy HEENT: Atraumatic. The patient is not cooperative for exam. NECK: No neck masses seen. CARDIOVASCULAR: S1, S2 heard. Tachycardia. No murmurs. RESPIRATORY SYSTEM: Normal AP diameter. No accessory muscle use. No wheezing, no crackles. ABDOMEN: Soft, distended, no rigidity. Noncooperative to exam. CENTRAL NERVOUS SYSTEM: Drowsy, moaning. Not oriented, somewhat agitated. EXTREMITIES: No edema, no erythema. LABORATORY DATA: WBC 19.5, hemoglobin 5.7, hematocrit 16, platelets 106. PT 84.9, INR 9.1, APTT 82.3. Sodium 136, potassium 4, chloride 103, bicarbonate 19, BUN 55, creatinine 4.3, serum glucose 83, lactate 4.3, calcium 7.9, total bilirubin 4.2, AST 20, ALT 14, alkaline phosphatase 144. Ammonia 41. Troponin I of 0.1. Stool occult blood positive. Ethyl alcohol less than 3. Chest x-ray, no acute findings. ELECTROCARDIOGRAM: Poor quality interpretation. ASSESSMENT AND PLAN: This 54-year-old female with alcoholic liver cirrhosis, hepatorenal syndrome, presents with confusion and gastrointestinal bleed. 1. Gastrointestinal bleed with underlying liver cirrhosis. Hemoccult positive in the Emergency Room, hemoglobin is 5.7. To transfuse packed red blood cells to keep hemoglobin greater than 7. Discussed with GI. To stop the packed red blood cells transfusion if the hemoglobin is greater than 7. Hemoglobin and hematocrit q.6 hours, Protonix drip, Sandostatin drip, n.p.o., gentle fluids. Monitor closely in the intensive care unit. 2. Elevated INR of 9.1. Holding Coumadin. Received vitamin K in IV and fresh frozen plasma in the Emergency Room. We will repeat the INR today for possible procedures. Follow daily INR. 3. History of confusion, encephalopathy, mostly metabolic. Possible sepsis with elevated white count of 19.5, elevated lactic acid of 4.3, also could be from the liver disease. There was issue of some gallbladder disease in the past. We will get a CT of the abdomen and pelvis and also gallbladder ultrasound. May need diagnostic and therapeutic ascites tap when stable. We will follow the cultures. Empirically start on IV vancomycin and IV Zosyn, gentle fluids normal saline at 50 mL per hour. Will follow the repeat lactic acid levels. 4. Alcoholic liver cirrhosis. Continue with lactulose. Follow the repeat ammonia levels, follow the imaging studies.High Meld score. 5. Portal vein thrombosis, on Coumadin, which was held for gastrointestinal bleed. 6. Hepatorenal syndrome. Creatinine is 4.39. In September when transferred to [facility], it was 3.5 ..As per the [facility] discharge summary, all diuretics were to held, to restart later as an outpatient.Was started on midodrine. Holding diuretics. We will consult nephrology. 7. Mild elevation in troponin, most likely demand ischemia, but we will follow serial enzymes and echocardiogram. 8. History of atrial fibrillation, supposed to be on diltiazem, but it was stopped at the time of discharge from [facility], but it is still showing in the medication list. We will put on hold the diltiazem and start on IV Lopressor p.r.n., Coumadin is held for the above reasons. 9. Gastroesophageal reflux disease. Continue on Protonix drip currently. 10. Sleep apnea, CPAP at bedtime. 11. Chronic obstructive pulmonary disease, Spiriva and albuterol p.r.n. 12. Hypertension. Supposed to be on diltiazem, currently not on any medication. We will place on IV Lopressor p.r.n. 13. History of transient ischemic attacks. 14. Schizoaffective disorder, was on perphenazine at home in the past. It was stopped last admission. We will hold it for now. If needed, we will consult psychiatry. 15. History of alcohol and tobacco abuse and also questionable cocaine abuse. IV thiamine, IV folic acid, IV Ativan p.r.n. for withdrawal symptoms. 16. Deep venous thrombosis prophylaxis. INR is supratherapeutic. Sequential compression devices. DISPOSITION: Closely monitor in ICU, full code if there is any chance of recovery as per my discussion with the brother. Guarded prognosis. MTDD
--- NOTE | 2019-11-14 14:39 | Procedure Note ---
Procedure Note Date of Service November 14, 2019 Procedure: Diagnostic therapeutic ultrasound-guided catheter paracentesis Building Maintenance Supervisor: Dr. Kian Kiser Indication: Ascites to rule out SBP Consent: Obtained from patient's brother, verified with timeout prior to procedure Anesthesia: 1% lidocaine without epinephrine local. Procedure: Consent was verified and timeout performed. Appropriate imaging studies were reviewed prior to the procedure. Patient was placed in a supine position and limited abdominal ultrasound was performed. See separate imaging. Appropriate site for paracentesis was selected. The skin was prepped and draped in normal sterile fashion. Lidocaine was used for local analgesia. Fluid was aspirated via the finder needle. A small skin anne was made with the scalpel and the catheter over the needle apparatus was advanced via Z technique. Using the syringe one-way valve system, a total of 3000 mL's of serous with greenish tinge fluid was removed. The catheter was removed and observed to be intact. A sterile dressing was applied. Fluid was sent for labs, culture and cytology. The patient tolerated the procedure without obvious complication Blood loss: Less than 2 cc Coding CPT Codes Abdomen - Abdominal: 79304 Abdominal Paracentesis (diagnostic or therapeutic); W/O imaging ([id number][place] [facility] [place]) Abdomen Abdominal: 82929 Abdominal Paracentesis (diagnostic or therapeutic); W/O imaging (With Ultrasound imaging in the chart )
[2019-11-14 14:42] LABS: INR 1.6 (0.9-1.1); Partial Thromboplastin Ratio 1.4; Partial Thromboplastin Time 39.8 Seconds (21.0-31.0); Prothrombin Time 16.3 Seconds (9.0-12.0)
[2019-11-14 14:43] LABS: Hematocrit (blood only) 20.1 % (37-47); Hemoglobin 7.1 g/dL (12.0-16.0); Mean Corpuscular Hemoglobin 33.5 pg (25-34); Mean Corpuscular Hgb Conc 35.3 g/dL (32-36); Mean Corpuscular Volume 94.8 fL (80-100); Mean Platelet Volume 9.9 fL (7.4-10.4); Platelet Count 66 K/uL (130-400); RDW Coefficient of Variation 17.8 % (11.5-14.5); RDW Standard Deviation 56.8 fL (36.4-46.3); Red Blood Count 2.12 M/uL (4.2-5.4); White Blood Count 14.94 K/uL (4.8-10.8)
[2019-11-14 14:49] LABS: Calcium 8.1 mg/dl (8.5-10.1); Creatinine Clr Calc Pharmacy 16.3 ml/min; Est GFR (African American) 13.3; Est GFR (Non-African American) 11.4; Potassium 3.7 mmol/L (3.5-5.1)
--- NOTE | 2019-11-14 15:16 | History & Physical Bridge Note ---
Date of Service November 14, 2019 History & Physical Bridge Note I have examined the patient, reviewed the History & Physical and in the interval since the performance of the History & Physical I have noted the following changes of clinical significance: no changes noted Spoke to patient's brother, Donis who consented for the procedure.
[2019-11-14 15:23] LABS: Albumin Level 2.6 gm/dl (3.4-5.0); Total Protein 7.7 gm/dl (6.4-8.2)
[2019-11-14] MEDS ORDERED: SODIUM CHLORIDE 0.9% 1000ML 500 ML IV ONE ×2 (15:24→21:16)
[2019-11-14] MEDS ORDERED: RAPID SEQUENCE INDUCTION BAG ONE (15:46)
[2019-11-14 15:57] LABS: Albumin Peritoneal Fluid 0.6 g/dl
[2019-11-14 15:58] LABS: Total Protein Peritoneal Fluid 1.9 g/dl
[2019-11-14] MEDS ORDERED: PROPOFOL IV EMULSION 10 MG/ML 100 ML VIAL IV ONE (16:04)
--- NOTE | 2019-11-14 16:19 | Procedure Note ---
Procedure Note Date of Service November 14, 2019 INTUBATION PROCEDURE NOTE: Attending: Dr Kian Kiser MD Patient was evaluated and plan to intubate was made for mental status. Sedative agent used: 20 mg etomidate, 100 mg lidocaine Paralysis agent used: 50 mg rocuronium Emergent consent was implied given patients rapidly declining clinical status and need for airway protection. The patient was prepared in the appropriate fashion. The patient was easily pre-oxygenated by using [id number] ventilation. With help of C-MAC grade 1 vocal cords were visualized and 7.5 German ETT was introduced on first attempt to 23 cm at the lip. The stylette was removed and balloon was inflated with 10mL of air. Appropriate Colorimetric change was appreciated for at least 10 breaths. Bilateral chest rise and breath sounds were appreciated without air sounds in the epigastrium. Patient tolerated the procedure well and there were no immediate complications. Chest Xray to follow for confirming placement. Coding CPT Codes Resuscitation - Resuscitation: 90717 Endotracheal Intubation, emergency ([id number]) [facility] [place] Procedure Codes (Charges) Resuscitation Resuscitation: 53517 Endotracheal Intubation, emergency
[2019-11-14] MEDS ORDERED: ACETAMINOPHEN 1,000 MG/100 ML VIAL IV PRN (16:36)
[2019-11-14] MEDS ORDERED: STAT IV Infusion **Titration per Protocol STA ×4 (16:36→23:34)
[2019-11-14] MEDS ORDERED: FENTANYL BOLUS FROM BAG IV PRN (16:36)
[2019-11-14] MEDS ORDERED: PROPOFOL BOLUS FROM BAG IV PRN (16:36)
[2019-11-14] MEDS ORDERED: LAVAGE SOLUTION 4000ML PO PRN (16:41)
[2019-11-14] MEDS ORDERED: propofoL 1,000 MG/100 ML VIAL IV SCH (16:45)
[2019-11-14] MEDS ORDERED: fentaNYL DRIP 1,250 MCG/250 ML BAG IV SCH (16:45)
[2019-11-14 16:54] LABS: Appearance Peritoneal Fluid CLEAR; Basophils, Fluid 0 %; Color Peritoneal Fluid YELLOW; Eosinophils, Fluid 1 %; Lymphocytes, Fluid 32 %; Mono,Macrophage,Mesothelial 50 %; Neutrophils, Fluid 17 %; RBC Peritoneal Fluid (A) < 3000 /uL; WBC Peritoneal Fluid (A) 136 /ul (0-300)
[2019-11-14] MEDS: LACTULOSE SYRUP 10 GM/15 ML BTL 960 ML PR SCH ×2 (17:08→18:46)
[2019-11-14 18:20] LABS: Hematocrit (blood only) 21.9 % (37-47); Hemoglobin 7.7 g/dL (12.0-16.0)
--- NOTE | 2019-11-14 18:22 | GI REPORT ---
Patient Name: Rebeca Judge Procedure Date: 11/14/2019 4:10 PM Date of : 1965 Admit Type: Inpatient Age: 54 Gender: Female Attending MD: Ronn Marquez MD Procedure: Upper GI endoscopy Providers: Ronn Marquez MD Referring MD: Roxanne Callejas Md, Ravinder Kiser Md Indications: Hematochezia, Suspected upper gastrointestinal bleeding Medicines: Propofol and Fentanyl drip per ICU team Complications: No immediate complications. Estimated Blood Loss: Estimated blood loss: none. Procedure: Pre-Anesthesia Assessment: - Prior to the procedure, a History and Physical was performed, and patient medications, allergies and sensitivities were reviewed. The patient's tolerance of previous anesthesia was reviewed. - The patient is unable to give consent secondary to the patient's altered mental status. The alternatives, risks and benefits of the procedure were discussed at length with the patient's brother. The patient's proxy verbalized understanding of the risks as well as the alternatives and wished to proceed with the procedure. - Patient identification and proposed procedure were verified prior to the procedure by the physician and the nurse. The procedure was verified in the procedure room. - Pre-procedure physical examination revealed no contraindications to sedation. After obtaining informed consent, the endoscope was passed under direct vision. Throughout the procedure, the patient's blood pressure, pulse, and oxygen saturations were monitored continuously. The Endoscope was introduced through the mouth, and advanced to the third part of duodenum. The upper GI endoscopy was accomplished without difficulty. The patient tolerated the procedure well. Findings: Two columns of non-bleeding grade II varices were found in the lower third of the esophagus,. No stigmata of recent bleeding were evident and no red jennifer signs were present. Two bands were successfully placed with complete eradication, resulting in deflation of varices. Mild portal hypertensive gastropathy was found in the gastric body. The duodenal bulb and second portion of the duodenum were normal. A single 15 mm submucosal nodule with altered mucosal texture with no bleeding was found in the third portion of the duodenum. Impression: - No evidence of active or recent bleeding to suggest an upper GI source. - Non-bleeding grade II esophageal varices. Banded. - Portal hypertensive gastropathy. - Normal duodenal bulb and second portion of the duodenum. - A single duodenal nodule. Recommendation: - Use a proton pump inhibitor IV daily for 2 days then PO BID for 2 months. - Continue IV Octreotide for 2 days. - Continue IV ABx. - No NG/OG tube for 3 days. - Schedule EGD/EUS with me as OP in 4 - 6 weeks for evaluation and resection of the duodenal nodule and follow up on the varices. - Perform a colonoscopy today ( I spoke to the brother and updated him about the EGD findings and he consented for a colonoscopy). Ronn Marquez MD 11/14/2019 6:22:22 PM This report has been signed electronically. Note Initiated On: 11/14/2019 4:10 PM Number of Addenda: 0 I attest to the content of the Intraoperative Record and orders documented therein, exceptions below {[id number]}
--- NOTE | 2019-11-14 18:33 | Gastroenterology Progress Note ---
Date of Service November 14, 2019 Assessment & Plan Admission and Anticipated Discharge Date Admission Date: November 14, 2019 Subjective Patient underwent EGD at bedside in ICU while she is intubated and sedated, there was no blood in the stomach to suggest an UGI bleeding source. There were grade II esophageal varices which I banded in case they were the source and had deflated. However, I called her brother and obtained a consent from him to perform an unprepped colonoscopy immediately to further clarify the source of bleeding. I explained the risk and benefits and he agreed. Colonoscopy done, TI was normal with yellow stool and no blood. The entire colon had yellow/brown stool with no blood except the rectum had bright red blood and clots. After thorough lavage, there was an active bleeding spot in the rectum however there was no ulcer and it was not on a hemorrhoid. I attempted banding but this was unsuccessful due to stiff rectum not allowing adequate suction inside the cap. I decided to clip the spot, 4 clips were placed but there was bleeding from around the clip which was not arterial and seems like a venous bleed hence I decided to inject the area with 4 ml of Ethanolamine which resulted in excellent control of the bleeding. This suggests the bleeding might be from small rectal varices. Results & Data ([facility]) Vital Signs (Past 12 Hours) Vital Signs Temp Pulse Pulse Resp BP BP Pulse Ox 11/14/19 18:05 131 H 129/63 11/14/19 18:00 131 H 133/69 11/14/19 17:55 132 H 130/83 100 11/14/19 17:50 135 H 119/76 100 11/14/19 17:44 135 H 127/75 11/14/19 17:39 133 H 125/78 11/14/19 17:35 135 H 119/88 11/14/19 17:30 133 H 142/73 H 11/14/19 17:24 136 H 136/100 97 11/14/19 17:19 132 H 126/76 11/14/19 17:14 132 H 137/78 11/14/19 17:10 135 H 136/75 11/14/19 17:04 138 H 144/81 H 11/14/19 16:59 142 H 139/92 11/14/19 16:54 137 H 130/72 11/14/19 16:49 134 H 146/88 H 11/14/19 16:44 134 H 137/78 11/14/19 16:41 120 H 100 11/14/19 16:39 117 H 136/64 11/14/19 16:34 120 H 139/82 11/14/19 16:30 120 H 11/14/19 16:29 116 H 164/92 H 11/14/19 16:24 115 H 152/95 H 11/14/19 16:19 119 H 159/111 H 11/14/19 16:15 105 H 20 11/14/19 16:14 123 H 167/114 H 11/14/19 16:01 129 H 100 11/14/19 16:00 113 H 113/76 11/14/19 15:30 108 H 22 123/96 11/14/19 15:00 37.6 C H 103 H 24 141/85 H 11/14/19 14:35 37.7 C H 115 H 21 117/70 11/14/19 14:00 37.7 C H 116 H 28 H 124/88 11/14/19 13:30 37.7 C H 110 H 24 110/58 L 11/14/19 13:00 37.6 C H 109 H 24 115/78 11/14/19 12:46 37.0 C 102 H 24 140/90 11/14/19 12:15 37.0 C 113 H 29 H 123/76 11/14/19 12:11 37.2 C 109 H 26 H 123/76 11/14/19 12:05 112 H 28 H 11/14/19 11:45 36.8 C 106 H 24 134/96 11/14/19 11:13 37.4 C 112 H 24 139/87 11/14/19 10:46 37.3 C 111 H 24 139/75 11/14/19 10:30 37.2 C 109 H 23 102/65 11/14/19 10:12 37.2 C 100 H 22 136/81 11/14/19 10:05 36.9 C 98 H 21 126/94 11/14/19 09:42 36.6 C 110 H 25 H 116/72 11/14/19 09:27 111 H 24 113/71 99 11/14/19 09:23 36.8 C 111 H 22 104/80 100 11/14/19 09:09 37.3 C 108 H 20 104/87 11/14/19 09:06 37.4 C 109 H 22 110/84 99 11/14/19 08:58 111 H 23 11/14/19 08:57 113 H 24 109/93 11/14/19 08:41 100 H 22 106/66 11/14/19 08:30 37.2 C 107 H 20 109/93 11/14/19 08:26 115 H 21 104/73 11/14/19 08:12 37.0 C 109 H 21 96/65 L 100 11/14/19 08:01 36.9 C 110 H 21 104/73 11/14/19 07:59 112 H 22 104/73 11/14/19 07:47 37.0 C 117 H 20 122/67 100 11/14/19 07:03 37.4 C 125 H 114 H 25 H 156/86 H 11/14/19 06:43 37.4 C 120 H 18 156/86 H 98
--- NOTE | 2019-11-14 18:45 | XRay Report ---
XR chest 1V portable HISTORY: 54 years-old Female Status post intubation acute respiratory failure COMPARISON: Chest radiograph of same day at 5:55 AM TECHNIQUE: Portable AP view of the chest FINDINGS: Endotracheal tube overlies the midline, 2.8 cm superior to the anya. The cardiac silhouette is enla rged. Minimal ill-defined left perihilar densities may be projectional. Mild blunting of the costophr enic angles. There is no pneumothorax, large pleural effusion or overt pulmonary edema. Degenerative changes of the shoulders and spine. IMPRESSION: 1. Endotracheal tube terminates 2.8 cm superior to the anya. 2. The lungs appear generally clear. ACT 112: Negative or not required by law. The above report was generated using voice recognition software. It may contain grammatical, syntax o r spelling errors. Electronically signed by: Lake Harrell M.D. 11/14/2019 6:44 PM
--- NOTE | 2019-11-14 18:58 | GI REPORT ---
Patient Name: Rebeca Judge Procedure Date: 11/14/2019 4:31 PM Date of : 1965 Admit Type: Inpatient Age: 54 Gender: Female Attending MD: Ronn Marquez MD Procedure: Colonoscopy Providers: Ronn Marquez MD Referring MD: Roxanne Callejas Md, Ravinder Kiser Md Indications: Rectal bleeding Medicines: Propofol and Fentanyl per ICU team Complications: No immediate complications. Estimated Blood Loss: Estimated blood loss: none. Procedure: Pre-Anesthesia Assessment: - Prior to the procedure, a History and Physical was performed, and patient medications, allergies and sensitivities were reviewed. The patient's tolerance of previous anesthesia was reviewed. - The patient is unable to give consent secondary to the patient's altered mental status. The alternatives, risks and benefits of the procedure were discussed at length with the patient's brother. The patient's proxy verbalized understanding of the risks as well as the alternatives and wished to proceed with the procedure. - Patient identification and proposed procedure were verified prior to the procedure by the physician and the nurse. The procedure was verified in the procedure room. - Pre-procedure physical examination revealed no contraindications to sedation. After I obtained informed consent, the scope was passed under direct vision. Throughout the procedure, the patient's blood pressure, pulse, and oxygen saturations were monitored continuously. The Endoscope was introduced through the anus and advanced to the terminal ileum. After I obtained informed consent, the scope was passed under direct vision. Throughout the procedure, the patient's blood pressure, pulse, and oxygen saturations were monitored continuously.The colonoscopy was performed without difficulty. The patient tolerated the procedure well. The terminal ileum, ileocecal valve, appendiceal orifice, and rectum were photographed. The quality of the bowel preparation was poor. Findings: The perianal and digital rectal examinations were normal. The terminal ileum appeared normal. Yellow effluent seen with no blood. The area from sigmoid to cecum appeared normal, no blood seen, no lesion or source of bleeding seen, there was adherent brown stool. 2 Liters of Golytely were flushed in the cecum for lavage. Red blood and small clots was found in the rectum. This was lavaged. There small internal hemorrhoids near the dentate line. Few centimeters deeper in the rectum, there was an actively bleeding spot with normal surrounding mucosa. The bleeding was a slow ooze suggestive of a venous source. There was no evidence of large rectal varices near the spot. Given Liver cirrhosis ,I attempted banding the spot however due to stiff rectum, the area could not be suctioned inside the cap. I decided to try clips, four hemostatic clips were successfully placed (MR conditional). There was some bleeding from around the center clip which was exactly on the spot. Area was then successfully injected with 4 mL ethanolamine for hemostasis and this achieved excellent hemostasis with no bleeding at the end of the procedure. Non-bleeding internal hemorrhoids were found during retroflexion. The hemorrhoids were small. Lactulose enema was flushed through the scope. Impression: - The examined portion of the ileum was normal. - The sigmoid to cecum is normal with adherent brown stool. - Blood in the rectum. Actively bleeding spot in the rectum, this could be from a small deep rectal varix, could not be banded, injected with Ethanolamine and clips were placed resulting in adequate hemostasis. - Non-bleeding internal hemorrhoids. Recommendation: - Continue present medications. - Continue IV Octreotide. - Keep Hgb around 7, do not overtransfuse. - Correct coagulopathy. - Can give Lactulose enema however should be gentle to avoid dislodging the clips. - If there is evidence of significant recurrent GI bleeding or significant drop in H/H then would consider tertiary care center for IR evaluation and possible TIPS though this may not be feasible with her PVT. Ronn Marquez MD 11/14/2019 6:57:36 PM This report has been signed electronically. Note Initiated On: 11/14/2019 4:31 PM Number of Addenda: 0 I attest to the content of the Intraoperative Record and orders documented therein, exceptions below {[id number]}
[2019-11-14] MEDS ORDERED: ETHANOLAMINE OLEATE 5% 2 ML AMP IV ONE (18:59)
[2019-11-14 20:49] LABS: iSTAT Allen Test Pass; iSTAT Arterial Blood Gas HCO3 13 meg/L (19-24); iSTAT Arterial Blood Gas pCO2 22 mmHg (35-46); iSTAT Arterial Blood Gas pH 7.38 (7.35-7.45); iSTAT Arterial Blood Gas pO2 199 mmHg (80-95); iSTAT Carbon Dioxide 13 mmol/L (24-31); iSTAT FiO2 4 %; iSTAT Site L Radial
--- NOTE | 2019-11-14 22:01 | Communication Note ---
Date of Service: November 14, 2019 At approximately 2130, the patient was noted to become more hypotensive with systolic blood pressures in the 60s to 70s. I did reassess the patient at [facility]. Her fentanyl and propofol drips were discontinued. Orders were placed for normal saline IV fluid bolus as well as additional units of albumin as the patient had undergone large-volume paracentesis today. Order was placed for Precedex drip to be used for sedation. We will consider the utilization of spot dosing sedation as well. Patient showed improvement with her blood pressure with boluses. Orders placed for Jelani-Synephrine if needed. This is likely secondary to the patient's ongoing persistent tachycardia and history of paroxysmal atrial fibrillation. Hoping for paroxysmal effects of bradycardia as well. Patient was noted to have some melanous diarrheal stool to be expected after endoscopies and known bleeding. Will repeat H&H to be sure of no further losses. Did attempt to contact the patient's brother, Donis ([phone]), at [phone]. There was no answer but I did leave a message. Wished to discuss change in clinical status as well as discussion of possible need for CVL/A-Line placement if clinical status does not show additional improvement. Received a return phone call from patient's POA (Donis - brother) at [phone]. Provided current update on condition. He was aware of all of today's events. Explained concern with drop in blood pressure and escalated heart rate and need for pressors, changes in sedation, etc. He expresses understanding and says, "whatever you have to do." I then broached the subject of central line and arterial line placements if necessary. Discussed utility of procedures as well as risks/benefits of each procedure. He verbally consents to both CVL as well as A-line placements if felt necessary by provider. All questions were answered. Assured him phone call in the event of any other changes in clinical status. I have personally spent 40 minutes of critical care time in the direct management of this patient. This is a life/limb threatening event. This includes time spent evaluating patient, direct bedside care, chart review, placing orders, interpretation of diagnostic studies, discussion with consultants, patient, and family members, as well as other required patient management activities. This time is exclusive of all separately billable procedures, and teaching time and separate from and in addition to any other critical care service time. Coding Level of Care Code Critical Care ea addt'l 30 min Time Spent (min) 40
[2019-11-14] MEDS: DEXMEDETOMIDINE HCL 200 MCG in SODIUM CHLORIDE 0.9% 48 ML IV SCH (22:19)
[2019-11-14 22:25] LABS: Hematocrit (blood only) 20.4 % (37-47)
[2019-11-14] MEDS: PHENYLEPHRINE HCL 20 MG in DEXTROSE 5% 500 ML IV SCH (22:44)
[2019-11-14] MEDS ORDERED: fentaNYL citrate 100 MCG/2 ML VIAL IV PRN (23:03)
[2019-11-14] MEDS: VASOPRESSIN 20 UNITS in 0.9 % SODIUM CHLORIDE 100 ML IV SCH (23:55)
[2019-11-14 23:58] LABS: INR 2.4 (0.9-1.1)
[2019-11-15] MEDS ORDERED: PHYTONADIONE 5 MG in SODIUM CHLORIDE 0.9% 50 ML IV ONE (00:02)
[2019-11-15] MEDS ORDERED: STAT IV Infusion **Titration per Protocol STA (01:24)
[2019-11-15] MEDS ORDERED: NOREPINEPHRINE BIT INJ 8 MG in DEXTROSE 5% 500 ML IV SCH (01:30)
--- NOTE | 2019-11-15 01:46 | Procedure Note ---
Procedure Note Date of Service November 15, 2019 Procedure: Femoral Central Line Placement Attending: Dr. Kiser APC: Lalo Hayden PA-C Indication: Central Drug Administration, Poor Venous Access, Multiple Lab Draws Necessary, etc. Anesthesia: Lidocaine 1% Emergent consent implied in the setting of escalation of resuscitative efforts including multiple pressors and drips as well as possible need for more blood products. I did discuss procedures with patient's POA, Donis, earlier in the evening. Risks, benefits, possible complications, and alternatives were discussed at great length. Given the current COVID-19 pandemic and strict hospital visitation policy, conversations were held by phone. Patient's brother gives verbal consent to any/all procedures felt necessary at provider discretion. A time-out was completed verifying correct patient, procedure, site, positioning, and implants(s) or special equipment if applicable. Patients LEFT Groin was cleansed and draped in the typical sterile fashion using Chloraprep. The Femoral Vein and Femoral Artery were identified using ultrasound. The superficial tissue was anesthetized using 4.0 mL of 1% lidocaine without epinephrine under direct visualization with the ultrasound. After adequate anesthetization was achieved, the Femoral Vein was cannulated under direct ultrasound guidance using an introducer needle on a syringe. Good venous blood return was maintained prior to removal of syringe from introducer needle. Using Seldinger Technique, a guide wire was advanced through the introducer needle without resistance. The introducer needle was removed and ultrasound images were obtained of the guide wire within the Femoral Vein and saved to the patients medical record. The dilator was advanced to the vessel without resistance. The dilator was exchanged for the triple lumen catheter which was advanced into the vessel without resistance to the hub. The guide wire was removed intact from the catheter without issue. Claves were placed on each catheter tip with confirmation of good blood flow from each lumen. Each port was easily flushed with sterile saline. The catheter was placed at the hub and sutured in place. BioPatch was applied to the catheter and a sterile Tegaderm dressing was applied over the catheter with careful attention to sterility. Patient tolerated procedure well. No immediate complications were met. Images obtained are saved for permanent record Procedural Ultrasound Guidance: Procedure Date: 11/15/2019 Indication: Multiple pressors, poor peripheral access, multiple medications Attending: Dr. Kiser APC: Lalo Catracho, PA-C Artery AND Vein visualized: YES Compressible Vein: YES Guidewire or Short Catheter seen in vein prior to dilation: YES Line confirmed in Vein with ultrasound: YES Images obtained are saved for permanent record. Coding CPT Codes Tubes, Drains, and Vasc Access - Tubes, Drains, and Vasc Access: [id number] Place catheter in vein superior or inferior vena cava ([id number]) Tubes, Drains, and Vasc Access - Tubes, Drains, and Vasc Access: [id number] Ultrasound Guidance For Vascular ([id number]) [facility] [place] Codes (Charges) Tubes, Drains, and Vasc Access Procedure 1: Tubes, Drains, and Vasc Access: [id number] Place catheter in vein superior or inferior vena cava Procedure 2: Tubes, Drains, and Vasc Access: [id number] Ultrasound Guidance For Vascular
--- NOTE | 2019-11-15 01:48 | Procedure Note ---
Procedure Note Date of Service November 15, 2019 Procedure: Femoral Central Line Placement Attending: Dr. Kiser APC: Lalo Hayden PA-C Indication: Profound hypotension, multiple pressors Anesthesia: Lidocaine 1% Emergent consent implied in the setting of escalation of resuscitative efforts including multiple pressors and drips as well as possible need for more blood products. I did discuss procedures with patient's POA, Donis, earlier in the evening. Risks, benefits, possible complications, and alternatives were discussed at great length. Given the current COVID-19 pandemic and strict hospital visitation policy, conversations were held by phone. Patient's brother gives verbal consent to any/all procedures felt necessary at provider discretion. A time-out was completed verifying correct patient, procedure, site, positioning, and implants(s) or special equipment if applicable. Patients LEFT Groin was cleansed and draped in the typical sterile fashion using Chloraprep. The Femoral Vein and Femoral Artery were identified using ultrasound. The superficial tissue was anesthetized using 3.0 mL of 1% lidocaine without epinephrine under direct visualization with the ultrasound. After adequate anesthetization was achieved, the Femoral Artery was cannulated under direct ultrasound guidance using an introducer needle on a syringe. Pulsatile arterial blood return was maintained prior to removal of syringe from introducer needle. Using Seldinger Technique, a guide wire was advanced through the introducer needle without resistance. The introducer needle was removed and ultrasound images were obtained of the guide wire within the Femoral Artery and saved to the patients medical record. The arterial catheter was threaded over the guidewire and was advanced into the vessel without resistance. The guide wire was removed intact from the catheter without issue. The a-line was connected to the transducer cable. Good waveform noted on the monitor. The catheter was placed at the hub and sutured in place. BioPatch was applied to the catheter and a sterile Tegaderm dressing was applied over the catheter with careful attention to sterility. Patient tolerated procedure well. No immediate complications were met. Images obtained are saved for permanent record Procedural Ultrasound Guidance: Procedure Date: 11/15/2019 Indication: Pressors, Poor upper extremity access, Need for frequent BP monitoring Attending: Dr. Kiser APC: Lalo Hayden PA-C Artery AND Vein visualized: YES Compressible Vein: YES Line confirmed in Artery with ultrasound: YES Images obtained are saved for permanent record. Coding CPT Codes Tubes, Drains, and Vasc Access - Tubes, Drains, and Vasc Access: [id number] Insertion Catheter, Artery ([id number]) Tubes, Drains, and Vasc Access - Tubes, Drains, and Vasc Access: [id number] Ultrasound Guidance For Vascular ([id number]) [facility] [place] Procedure Codes (Charges) Tubes, Drains, and Vasc Access Procedure 3: Tubes, Drains, and Vasc Access: [id number] Insertion Catheter, Artery Procedure 4: Tubes, Drains, and Vasc Access: [id number] Ultrasound Guidance For Vascular
[2019-11-15 01:54] LABS: Hematocrit (blood only) 19.1 % (37-47); Hemoglobin 6.7 g/dL (12.0-16.0); Mean Corpuscular Hgb Conc 35.1 g/dL (32-36); Mean Corpuscular Volume 94.1 fL (80-100); Mean Platelet Volume 10.1 fL (7.4-10.4); Platelet Count 62 K/uL (130-400); RDW Standard Deviation 60.7 fL (36.4-46.3); Red Blood Count 2.03 M/uL (4.2-5.4); White Blood Count 15.52 K/uL (4.8-10.8)
[2019-11-15 01:59] LABS: iSTAT Arterial Blood Gas HCO3 11 meg/L (19-24); iSTAT Arterial Blood Gas pCO2 18 mmHg (35-46); iSTAT Arterial Blood Gas pH 7.37 (7.35-7.45); iSTAT Arterial Blood Gas pO2 139 mmHg (80-95); iSTAT Carbon Dioxide 11 mmol/L (24-31); iSTAT FiO2 30 %; iSTAT Site Art Line
[2019-11-15 02:08] LABS: Basophils # (auto) 0.03 K/uL (0-0.2); Basophils % (auto) 0.2 %; Dohle Bodies 1+; Echinocytes 1+; Eosinophils # (auto) 0.02 K/uL (0-0.5); Eosinophils % (auto) 0.1 %; Immature Granulocytes # (auto) 0.51 K/uL (0.00-0.02); Immature Granulocytes % (auto) 3.3 %; Lymphocytes # (auto) 1.61 K/uL (1.2-3.4); Lymphocytes % (auto) 10.4 %; Monocytes # (auto) 0.84 K/uL (0.11-0.59); Monocytes % (auto) 5.4 %; Neutrophils # (auto) 12.51 K/uL (1.4-6.5); Neutrophils % (auto) 80.6 %
[2019-11-15] MEDS ORDERED: SODIUM CHLORIDE 0.9% 250 ML IV PRN ×2 (02:15→10:02)
--- NOTE | 2019-11-15 02:15 | Communication Note ---
Date of Service: November 15, 2019 Shortly after midnight, the patient had persistent hypotension with need for addition of a 2nd pressors. At this point, given poor peripheral access, decis ion was made to place CVL an A-lines for drug administration and closer hemodynamic monitoring. I did perform ultrasound of the bilateral upper arms and there were no adequate sites to perform a-line attempt. Ultrasound of the LEFT groin demonstrated appropriate caliber vessels to perform line placement. With arterial line being placed in the groin, CVL was placed there as well. Please see separate procedure notes. After line placement, repeat labs were ordered. Despite the addition of vasopressin, the patient remained hypotensive. Levophed was added for additional support. ABG was ordered given the patient's nonresponsiveness to pressors and poor renal function. The patient appears to be in a compensated metabolic acidosis. Decision to start low rate bicarb gtt was made. Additionally, patient was noted to have a slight drop in her H&H. Orders were placed to transfuse an additional unit of PRBCs. I have personally spent 60 minutes of critical care time in the direct management of this patient. This is a life/limb threatening event. This includes time spent evaluating patient, direct bedside care, chart review, placing orders, interpretation of diagnostic studies, discussion with consultants, patient, and family members, as well as other required patient management activities. This time is exclusive of all separately billable procedures, and teaching time and separate from and in addition to any other critical care service time. Coding Level of Care Code Critical Care 1st 30-74 mins Time Spent (min) 60
[2019-11-15] MEDS: PHENYLEPHRINE HCL 20 MG in DEXTROSE 5% 500 ML IV SCH ×2 (02:56→07:07)
[2019-11-15] MEDS: SODIUM BICARBONATE 8.4% 150 MEQ in WATER, STERILE 1,000 ML IV SCH ×2 (02:56→17:52)
[2019-11-15] MEDS: ALBUMIN 25% 50 ML IV SCH ×4 (02:56→19:15)
[2019-11-15] MEDS: OCTREOTIDE ACETATE 500 MCG in 0.9 % SODIUM CHLORIDE 100 ML IV SCH ×2 (02:56→13:07)
[2019-11-15] MEDS: ERTAPENEM SODIUM 500 MG in SODIUM CHLORIDE 0.9% 50 ML IV SCH (05:16)
[2019-11-15] MEDS: PANTOprazole 40 MG in DEXTROSE 5% 100 ML IV SCH ×4 (05:16→19:14)
[2019-11-15 05:34] LABS: iSTAT Arterial Blood Gas HCO3 10 meg/L (19-24); iSTAT Arterial Blood Gas pCO2 20 mmHg (35-46); iSTAT Arterial Blood Gas pH 7.32 (7.35-7.45); iSTAT Arterial Blood Gas pO2 118 mmHg (80-95); iSTAT Carbon Dioxide 11 mmol/L (24-31); iSTAT FiO2 30 %; iSTAT Site Art Line
[2019-11-15 06:27] LABS: INR 2.6 (0.9-1.1); Prothrombin Time 26.5 Seconds (9.0-12.0)
[2019-11-15 06:51] LABS: Albumin Globulin Ratio 0.6 (0.9-2); Albumin Level 2.4 gm/dl (3.4-5.0); BUN Creatinine Ratio 10.7 (10-20); Calcium 6.8 mg/dl (8.5-10.1); Creatinine Clr Calc Pharmacy 15.5 ml/min; Est GFR (Non-African American) 10.3; Globulin 4.2 gm/dl (2.5-4.0); Magnesium 0.6 mg/dl (1.8-2.4); Phosphorus 2.8 mg/dl (2.5-4.9); Potassium 2.6 mmol/L (3.5-5.1); Total Protein 6.6 gm/dl (6.4-8.2)
[2019-11-15] MEDS: MAGNESIUM SULFATE / D5W 1 GM/100 ML BAG IV SCH ×3 (07:25→11:31)
[2019-11-15] MEDS: POTASSIUM CHLORIDE / WTR 20 MEQ/100 ML PLCT IV SCH ×3 (07:26→22:04)
[2019-11-15] MEDS: VASOPRESSIN 20 UNITS in 0.9 % SODIUM CHLORIDE 100 ML IV SCH ×2 (07:26→14:28)
[2019-11-15] MEDS ORDERED: CALCIUM CHLORIDE 10% 1,000 MG in SODIUM CHLORIDE 0.9% 50 ML IV ONE (07:30)
[2019-11-15] MEDS: MAGNESIUM OXIDE 400 MG TAB PO SCH (07:59)
[2019-11-15] MEDS: MIDODRINE HCL 10 MG TAB PO SCH (07:59)
[2019-11-15] MEDS: UMECLIDINIUM BROMIDE 62.5MCG/BLISTER 7 PUFFS/INHALER INH SCH (07:59)
--- NOTE | 2019-11-15 08:05 | XRay Report ---
XR chest 1V portable HISTORY: Shortness of breath. COMPARISON: Chest 11/14/2019. FINDINGS: Endotracheal tube terminates approximately 2.2 cm from the anya. The heart is normal in s ize. No pleural effusions. No pneumothorax. No evidence for pulmonary edema. The lungs appear clear. IMPRESSION: Endotracheal tube terminates approximately 2.2 cm from the anya. ACT 112: Negative or not required by law. Electronically signed by: Vipul Gilmore M.D. 11/15/2019 8:03 AM
[2019-11-15] MEDS: THIAMINE HCL 100 MG in SYRINGE 9 ML IV SCH (08:51)
[2019-11-15] MEDS: FOLIC ACID 1 MG in SYRINGE 9.8 ML IV SCH (08:51)
[2019-11-15 08:56] LABS: Hematocrit (blood only) 21.4 % (37-47); Hemoglobin 7.6 g/dL (12.0-16.0); Mean Corpuscular Hgb Conc 35.5 g/dL (32-36); RDW Coefficient of Variation 18.4 % (11.5-14.5); RDW Standard Deviation 56.8 fL (36.4-46.3); White Blood Count 23.13 K/uL (4.8-10.8)
[2019-11-15] MEDS ORDERED: RIFAXIMIN 550 MG TABLET PO SCH (09:00)
[2019-11-15] MEDS ORDERED: LACTULOSE SYRUP 10 GM/15 ML BTL 960 ML PR PRN (09:01)
[2019-11-15] MEDS: LACTULOSE SYRUP 10 GM/15 ML BTL 960 ML PR SCH (09:09)
--- NOTE | 2019-11-15 09:22 | Critical Care Progress Note ---
Date of Service November 15, 2019 Assessment & Plan (1) Hepatic encephalopathy: (1) Admitted to intensive care unit: Reason Critically Ill: 54-year-old female with altered mental status in the setting of presumed upper GI bleed with supratherapeutic INR requiring close hemodynamic monitoring in the setting of above. NEURO - Acute encephalopathy -Hepatic encephalopathy: Elevated ammonia -Passing stools secondary to GI bleeding -Rifaximin: 550 twice daily -Lactulose 3 times daily as needed titrate to 3 bowel movements daily -Suspect metabolic component: Sepsis - Holding all sedatives, at risk for cerebral edema CARDIAC/VASCULAR - Hypotension: Sepsis versus type II ischemia -Elevated troponin: -With normal echocardiogram this is likely demand ischemia, sepsis related myocardial dysfunction, acute kidney injury -Transfusion hemoglobin still 7 -Repeat EKG, if signs of ST elevation would increase transfusion goal to 10 Paroxysmal A. fib: -Currently anticoagulated with Coumadin. -Long-term anticoagulation -Will consider anticoagulation as she gets further from her acute blood loss anemia -Risk of bleeding outweighs risk of thrombosis secondary to A. 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 Not candidate for transplant Not candidate for TIPS given likely serna of infection. RENAL/LYTES - Acute renal failure: -Possible hepatorenal syndrome Lactic acidosis (metabolic high gap acidosis) -Bicarb infusion running -Thiamine repletion: 300 mg 3 times daily x6 doses Nephrology consulted -If patient requires renal replacement therapy would highly consider CVVH given vasoactive medication requirements. Azotemia: Secondary to chronic kidney disease and GI bleeding Hypokalemia -40 M EQ's potassium chloride ordered Hypomagnesemia -3 g ordered - Narvaez to be placed - Strict I&Os. ENDO - DMII BSGs per unit protocol. ISS --> gtt per unit policy. HEME - Acute blood loss anemia: 2/2 GIB. Received 10mg IV Vitamin K. Trend H&H. ID - SBP Prophylaxis: Received Ertapenem. Patient w/ multiple antibiotic allergies. Received in the past. Possible sepsis: Awaiting culture data continue ertapenem LINES/IV ACCESS - Femoral central venous access, femoral arterial line placed 11/15/2019 DVT PROPHYLAXIS - Hold on chemoprophylaxis 08/01 GIB. SCDs CODE STATUS: Full -Palliative care consulted for goals of care -No reported power of collections attorney in chart Update 1700: Worsening renal function worsening acidosis. Creatinine continuing to elevate 4.63, bicarbonate 8. Advised nursing to contact brother who I spoke with this morning regarding status that patient continues to worsen clinically and may be imminent. 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 (2) AMS (altered mental status): (3) UGIB (upper gastrointestinal bleed): (4) Acute blood loss anemia: (5) Thrombosis, portal vein: (6) Cirrhosis: (7) Hepatorenal syndrome: (8) Acute renal failure: (9) Supratherapeutic international normalized ratio (INR): (10) Paroxysmal atrial fibrillation: (11) Ascites: (12) DM type 2 (diabetes mellitus, type 2): (2) GI hemorrhage: (3) Liver disease due to alcohol: (4) Supratherapeutic international normalized ratio (INR): (5) Cirrhosis: (6) Thrombosis, portal vein: (7) Acute blood loss anemia: (8) UGIB (upper gastrointestinal bleed): (9) Admitted to intensive care unit: Admission and Anticipated Discharge Date Admission Date: November 14, 2019 Subjective Overnight patient became increasingly hypotensive, had escalating vasoactive medication requirement, continued to receive blood product. Required invasive line placement overnight. Review of Systems Review of Systems: Unobtainable due to endotracheal tube and Unobtainable due to reduced consciousness Physical Exam Physical Exam: General: Unresponsive, has cough, breathing over vent Skin: Cool, dry, Head: Atraumatic Ears, nose, mouth and throat: obscured by endotracheal tube Cardiovascular: sluggish capillary refill Respiratory: no respiratory distress, scattered rhonchi Gastrointestinal: Non distended Musculoskeletal: No deformity Results & Data Results & Data ([facility]) Vital Signs (Past 12 Hours) Vital Signs Temp Pulse Resp BP Pulse Ox 11/15/19 08:09 95 H 105/63 100 11/15/19 08:00 37.6 C H 95 H 97 11/15/19 07:50 37.6 C H 95 H 23 121/52 L 100 11/15/19 07:28 97 H 83/58 L 99 11/15/19 07:13 94 H 99/61 L 99 11/15/19 07:00 97 H 98 11/15/19 06:15 95 H 100 11/15/19 06:13 96 H 99/62 L 100 11/15/19 06:00 94 H 100 11/15/19 05:58 94 H 97/60 L 100 11/15/19 05:45 38.1 C H 95 H 100 11/15/19 05:43 95 H 93/59 L 100 11/15/19 05:30 38.1 C H 95 H 100 11/15/19 05:28 38.1 C H 95 H 96/58 L 100 11/15/19 05:15 38.1 C H 96 H 100 11/15/19 05:13 38.1 C H 96 H 93/58 L 100 11/15/19 05:12 95 H 25 H 100 11/15/19 05:00 97 H 100 11/15/19 04:58 97 H 90/57 L 100 11/15/19 04:50 99 H 100 11/15/19 04:46 99 H 97 11/15/19 04:44 100 H 87/54 L 98 11/15/19 04:41 38.8 C H 103 H 31 H 86/55 L 97 11/15/19 04:30 99 H 100 11/15/19 04:28 97 H 86/55 L 100 20 04:15 99 H 100 11/15/19 04:13 99 H 87/53 L 100 20 04:00 102 H 100 05 03:58 100 H 91/54 L 100 11/15/19 03:45 100 H 100 05 03:43 99 H 85/52 L 100 11/15/19 03:30 104 H 94 11/15/19 03:28 101 H 88/53 L 100 051820 03:15 101 H 100 05 03:13 101 H 89/55 L 100 11/15/19 03:00 102 H 100 05 02:58 101 H 77/51 L 100 05 02:45 101 H 100 0520 02:43 101 H 80/50 L 100 05 02:30 38.1 C H 102 H 100 05 02:28 103 H 76/51 L 100 05 02:15 105 H 100 05 02:13 103 H 76/51 L 100 11/15/19 02:00 108 H 100 05 01:58 108 H 82/48 L 100 11/15/19 01:51 113 H 28 H 100 05 01:45 115 H 100 05 01:43 109 H 82/51 L 100 05 01:30 111 H 100 11/15/19 01:28 116 H 87/52 L 100 05 01:15 112 H 80 L 05 01:13 115 H 80/51 L 100 11/15/19 01:00 114 H 100 05 00:58 109 H 86/53 L 100 11/15/19 00:45 118 H 97 05 00:43 117 H 74/58 L 100 05 00:34 107 H 78/50 L 100 11/15/19 00:30 114 H 100 05 00:28 116 H 87/56 L 100 11/15/19 00:15 118 H 95 05 00:13 118 H 76/44 L 100 05 00:11 119 H 77/49 L 100 05 00:01 116 H 100 051820 00:00 121 H 73/50 L 100 0520 23:51 127 H 73/50 L 100 0520 23:46 125 H 77/51 L 99 05/20 23:45 127 H 100 05 23:36 119 H 66/44 L 95 0520 23:33 121 H 76/41 L 100 05/20 23:30 123 H 100 05 23:24 126 H 67/24 L 100 0520 23:22 129 H 100 05/17/20 23:15 127 H 100 05/17/20 23:13 132 H 89/39 L 100 11/14/19 23:06 127 H 74/38 L 100 11/14/19 23:00 133 H 100 11/14/19 22:51 136 H 93/75 L 100 11/14/19 22:45 138 H 100 11/14/19 22:40 140 H 77/57 L 100 11/14/19 22:37 139 H 100 11/14/19 22:30 140 H 100 11/14/19 22:21 142 H 98/61 L 100 11/14/19 22:15 142 H 100 11/14/19 22:10 142 H 115/50 L 100 11/14/19 22:00 137 H 28 H 110/59 L 100 11/14/19 21:49 138 H 103/56 L 96 11/14/19 21:45 130 H 71 L 11/14/19 21:41 127 H 87/52 L 86 L 11/14/19 21:37 125 H 86/49 L 94 11/14/19 21:36 125 H 68/33 L 100 11/14/19 21:34 107 H 44/25 L 100 11/14/19 21:33 127 H 44/25 L 100 11/14/19 21:30 115 H 100 11/14/19 21:29 120 H 76/29 L 100 11/14/19 21:15 129 H 99 11/14/19 21:09 133 H 74/47 L 98 11/14/19 21:08 133 H 78/43 L 100 11/14/19 21:07 134 H 68/41 L 100 11/14/19 21:00 136 H 100 Laboratory Results 11/15/19 11/15/19 11/15/19 Range/Units 05:50 05:50 05:50 WBC Cancelled (4.8-10.8) K/uL RBC Cancelled (4.2-5.4) M/uL Hgb Cancelled (12.0-16.0) g/dL Hct Cancelled (37-47) % MCV Cancelled (80-100) fL MCH Cancelled (25-34) pg MCHC Cancelled (32-36) g/dL RDW Std Deviation Cancelled (36.4-46.3) fL RDW Coeff of Ally Cancelled (11.5-14.5) % Plt Count Cancelled (130-400) K/uL MPV Cancelled (7.4-10.4) fL Immature Gran % (Auto) Cancelled % Neut % (Auto) Cancelled % Lymph % (Auto) Cancelled % Thayer % (Auto) Cancelled % Eos % (Auto) Cancelled % Baso % (Auto) Cancelled % Immature Gran # (Auto) Cancelled (0.00-0.02) K/uL Neut # (Auto) Cancelled (1.4-6.5) K/uL Lymph # (Auto) Cancelled (1.2-3.4) K/uL Thayer # (Auto) Cancelled (0.11-0.59) K/uL Eos # (Auto) Cancelled (0-0.5) K/uL Baso # (Auto) Cancelled (0-0.2) K/uL Absolute Nucleated RBC Cancelled Nucleated RBC % (auto) Cancelled Neutrophils % (Manual) Cancelled Band Neutrophils % Cancelled Lymphocytes % (Manual) Cancelled Prolymphocyte % Cancelled Reactive Lymphs % (Man) Cancelled Monocytes % (Manual) Cancelled Eosinophils % (Manual) Cancelled Basophils % (Manual) Cancelled Metamyelocytes % (Man) Cancelled Myelocytes % (Man) Cancelled Promyelocytes % (Man) Cancelled Blast Cells % (Manual) Cancelled Plasma Cell % (Manual) Cancelled Other Cells % Cancelled Nucleated RBC % Cancelled Neutrophils # (Manual) Cancelled Band Neutrophils # Cancelled Total Absolute Neuts Cancelled Lymphocytes # (Manual) Cancelled Prolymphocyte # Cancelled Reactive Lymphs # Cancelled Total Abs Lymphocytes Cancelled Monocytes # (Manual) Cancelled Eosinophils # (Manual) Cancelled Basophils # (Manual) Cancelled Metamyelocytes # (Man) Cancelled Myelocytes # (Manual) Cancelled Promyelocytes # (Man) Cancelled Blast Cells # (Man) Cancelled Plasma Cell # (Manual) Cancelled Other Cells # Cancelled Nucleated RBCs # (Man) Cancelled Hypersegmented Neuts Cancelled Hyposegmented Neuts Cancelled Hypogranular Neuts Cancelled Large Granular Lymphs Cancelled # Lrg Granular Lymphs Cancelled Hairy Cells Cancelled Smudge Cells Cancelled Toxic Granulation Cancelled Toxic Vacuolation Cancelled Dohle Bodies Cancelled Christine Rods Cancelled Platelet Estimate Cancelled Hypogranular Platelets Cancelled Clumped Platelets Cancelled Giant Platelets Cancelled Platelet Satelliting Cancelled RBC Morphology Cancelled Polychromasia Cancelled Hypochromasia Cancelled Poikilocytosis Cancelled Basophilic Stippling Cancelled Anisocytosis Cancelled Microcytosis Cancelled Macrocytosis Cancelled Spherocytes Cancelled Pappenheimer Bodies Cancelled Sickle Cells Cancelled Target Cells Cancelled Tear Drop Cells Cancelled Ovalocytes Cancelled Stomatocytes Cancelled Garza-Bridgman Bodies Cancelled Echinocytes Cancelled Acanthocytes (Spur) Cancelled Rouleaux Cancelled RBC Agglutinates Cancelled Schistocytes Cancelled RBC Morph Comment Cancelled ESR (0-21) mm/hr Sezary Cell Cancelled PT (9.0-12.0) Seconds INR (0.9-1.1) APTT (21.0-31.0) Seconds PTT Ratio Sample Site POC pH (7.35-7.45) POC pCO2 (35-46) mmHg POC pO2 (80-95) mmHg POC HCO3 (19-24) rosario/L POC Total CO2 (24-31) mmol/L POC Base Excess (-9-1.8) rosario/L POC ABG O2 Sat (90-95) % Moncho Test O2 Delivery Device POC O2 Rate Minute Ventilation POC FiO2 % Tidal Volume PEEP Sodium (136-145) mmol/L Potassium (3.5-5.1) mmol/L Chloride (98-107) mmol/L Carbon Dioxide (21-32) mmol/L Anion Gap (3-11) BUN (7-18) mg/dl Creatinine (0.6-1.2) mg/dl Est Cr Clr Drug Dosing ml/min Est GFR ( Amer) Est GFR (Non-Af Amer) BUN/Creatinine Ratio (10-20) Glucose (70-99) mg/dl POC Glucose (70-99) mg/dl Osmolality (280-300) mOsm/kg Lactate (0.4-2.0) mmol/L Calcium (8.5-10.1) mg/dl Phosphorus (2.5-4.9) mg/dl Magnesium (1.8-2.4) mg/dl Total Bilirubin (0.2-1) mg/dl Direct Bilirubin (0-0.2) mg/dl AST (15-37) U/L ALT (12-78) U/L Alkaline Phosphatase (45-117) U/L Ammonia (11-32) umol/L Troponin I (0-0.045) ng/ml C-Reactive Protein (0-0.29) mg/dl Total Protein (6.4-8.2) gm/dl Albumin (3.4-5.0) gm/dl Globulin (2.5-4.0) gm/dl Albumin/Globulin Ratio (0.9-2) Procalcitonin 15.93 H (0-0.5) ng/ml Random Cortisol 37.88 mcg/dl Urine Color Urine Appearance (Clear) Urine pH (4.5-7.5) Ur Specific [place] (1.000-1.030) Urine Protein (Negative) Urine Glucose (UA) (Negative) Urine Ketones (Negative) Urine Blood (Negative) Urine Nitrite (Negative) Urine Bilirubin (Negative) Urine Urobilinogen (Negative) Ur Leukocyte Esterase (Negative) Urine WBC (Auto) (0-5) /hpf Urine RBC (Auto) (0-4) /hpf U Hyaline Cast (Auto) (0-5) /lpf U Epithel Cells (Auto) (0-5) /lpf Urine Bacteria (Auto) (Negative) Urine Osmolality (500-800) mOsm/kg Ur Random Creatinine mg/dl Ur Random Sodium Ur Random Potassium mmol/L Ur Random Chloride mmol/L Ur Random Uric Acid mg/dl Fluid Neutrophils % % Fluid Lymphocytes % % Fluid Eosinophils % % Fluid Basophils % % Fluid Meso/Macro/Thayer % % Fluid Glucose Peritoneal Color Peritoneal Appearance Peritoneal WBC (0-300) /ul Peritoneal RBC /uL Peritoneal Tot Protein g/dl Peritoneal Albumin g/dl Peritoneal Glucose mg/dl Random Vancomycin mcg/ml Urine Opiates Screen (Neg) Ur Methadone, Qual (Neg) Urine Barbiturates (Neg) Ur Phencyclidine (PCP) (Neg) U Amphetamin/Meth Scrn (Neg) MDMA (Ecstasy) Screen (Neg) U Benzodiazepines Scrn (Neg) Ur Cocaine Metabolite (Neg) U Marijuana (THC) Screen (Neg) U Marijuana THC Carboxy Drug Screen Comment Blood Type Antibody Screen Crossmatch 11/15/19 11/15/19 11/15/19 Range/Units 05:50 05:50 05:50 WBC (4.8-10.8) K/uL RBC (4.2-5.4) M/uL Hgb (12.0-16.0) g/dL Hct (37-47) % MCV (80-100) fL MCH (25-34) pg MCHC (32-36) g/dL RDW Std Deviation (36.4-46.3) fL RDW Coeff of Ally (11.5-14.5) % Plt Count (130-400) K/uL MPV (7.4-10.4) fL Immature Gran % (Auto) % Neut % (Auto) % Lymph % (Auto) % Thayer % (Auto) % Eos % (Auto) % Baso % (Auto) % Immature Gran # (Auto) (0.00-0.02) K/uL Neut # (Auto) (1.4-6.5) K/uL Lymph # (Auto) (1.2-3.4) K/uL Thayer # (Auto) (0.11-0.59) K/uL Eos # (Auto) (0-0.5) K/uL Baso # (Auto) (0-0.2) K/uL Absolute Nucleated RBC Nucleated RBC % (auto) Neutrophils % (Manual) Band Neutrophils % Lymphocytes % (Manual) Prolymphocyte % Reactive Lymphs % (Man) Monocytes % (Manual) Eosinophils % (Manual) Basophils % (Manual) Metamyelocytes % (Man) Myelocytes % (Man) Promyelocytes % (Man) Blast Cells % (Manual) Plasma Cell % (Manual) Other Cells % Nucleated RBC % Neutrophils # (Manual) Band Neutrophils # Total Absolute Neuts Lymphocytes # (Manual) Prolymphocyte # Reactive Lymphs # Total Abs Lymphocytes Monocytes # (Manual) Eosinophils # (Manual) Basophils # (Manual) Metamyelocytes # (Man) Myelocytes # (Manual) Promyelocytes # (Man) Blast Cells # (Man) Plasma Cell # (Manual) Other Cells # Nucleated RBCs # (Man) Hypersegmented Neuts Hyposegmented Neuts Hypogranular Neuts Large Granular Lymphs # Lrg Granular Lymphs Hairy Cells Smudge Cells Toxic Granulation Toxic Vacuolation Dohle Bodies Christine Rods Platelet Estimate Hypogranular Platelets Clumped Platelets Giant Platelets Platelet Satelliting RBC Morphology Polychromasia Hypochromasia Poikilocytosis Basophilic Stippling Anisocytosis Microcytosis Macrocytosis Spherocytes Pappenheimer Bodies Sickle Cells Target Cells Tear Drop Cells Ovalocytes Stomatocytes Garza-Bridgman Bodies Echinocytes Acanthocytes (Spur) Rouleaux RBC Agglutinates Schistocytes RBC Morph Comment ESR (0-21) mm/hr Sezary Cell PT (9.0-12.0) Seconds INR (0.9-1.1) APTT (21.0-31.0) Seconds PTT Ratio Sample Site POC pH (7.35-7.45) POC pCO2 (35-46) mmHg POC pO2 (80-95) mmHg POC HCO3 (19-24) rosario/L POC Total CO2 (24-31) mmol/L POC Base Excess (-9-1.8) rosario/L POC ABG O2 Sat (90-95) % Moncho Test O2 Delivery Device POC O2 Rate Minute Ventilation POC FiO2 % Tidal Volume PEEP Sodium 134 L (136-145) mmol/L Potassium 2.6 L D (3.5-5.1) mmol/L Chloride 103 (98-107) mmol/L Carbon Dioxide 11 L (21-32) mmol/L Anion Gap 20.0 H (3-11) BUN 48 H (7-18) mg/dl Creatinine 4.49 H D (0.6-1.2) mg/dl Est Cr Clr Drug Dosing 15.5 ml/min Est GFR ( Amer) 12.0 Est GFR (Non-Af Amer) 10.3 BUN/Creatinine Ratio 10.7 (10-20) Glucose 180 H (70-99) mg/dl POC Glucose (70-99) mg/dl Osmolality (280-300) mOsm/kg Lactate (0.4-2.0) mmol/L Calcium 6.8 L D (8.5-10.1) mg/dl Phosphorus 2.8 (2.5-4.9) mg/dl Magnesium 0.6 L* (1.8-2.4) mg/dl Total Bilirubin 6.0 H (0.2-1) mg/dl Direct Bilirubin 4.0 H (0-0.2) mg/dl AST 23 (15-37) U/L ALT 11 L (12-78) U/L Alkaline Phosphatase 85 (45-117) U/L Ammonia 44.0 H (11-32) umol/L Troponin I (0-0.045) ng/ml C-Reactive Protein (0-0.29) mg/dl Total Protein 6.6 (6.4-8.2) gm/dl Albumin 2.4 L (3.4-5.0) gm/dl Globulin 4.2 H (2.5-4.0) gm/dl Albumin/Globulin Ratio 0.6 L (0.9-2) Procalcitonin (0-0.5) ng/ml Random Cortisol mcg/dl Urine Color Urine Appearance (Clear) Urine pH (4.5-7.5) Ur Specific [place] (1.000-1.030) Urine Protein (Negative) Urine Glucose (UA) (Negative) Urine Ketones (Negative) Urine Blood (Negative) Urine Nitrite (Negative) Urine Bilirubin (Negative) Urine Urobilinogen (Negative) Ur Leukocyte Esterase (Negative) Urine WBC (Auto) (0-5) /hpf Urine RBC (Auto) (0-4) /hpf U Hyaline Cast (Auto) (0-5) /lpf U Epithel Cells (Auto) (0-5) /lpf Urine Bacteria (Auto) (Negative) Urine Osmolality (500-800) mOsm/kg Ur Random Creatinine mg/dl Ur Random Sodium Ur Random Potassium mmol/L Ur Random Chloride mmol/L Ur Random Uric Acid mg/dl Fluid Neutrophils % % Fluid Lymphocytes % % Fluid Eosinophils % % Fluid Basophils % % Fluid Meso/Macro/Thayer % % Fluid Glucose Peritoneal Color Peritoneal Appearance Peritoneal WBC (0-300) /ul Peritoneal RBC /uL Peritoneal Tot Protein g/dl Peritoneal Albumin g/dl Peritoneal Glucose mg/dl Random Vancomycin 21.7 mcg/ml Urine Opiates Screen (Neg) Ur Methadone, Qual (Neg) Urine Barbiturates (Neg) Ur Phencyclidine (PCP) (Neg) U Amphetamin/Meth Scrn (Neg) MDMA (Ecstasy) Screen (Neg) U Benzodiazepines Scrn (Neg) Ur Cocaine Metabolite (Neg) U Marijuana (THC) Screen (Neg) U Marijuana THC Carboxy Drug Screen Comment Blood Type Antibody Screen Crossmatch 11/15/19 11/15/19 11/15/19 Range/Units 05:50 05:19 01:44 WBC (4.8-10.8) K/uL RBC (4.2-5.4) M/uL Hgb (12.0-16.0) g/dL Hct (37-47) % MCV (80-100) fL MCH (25-34) pg MCHC (32-36) g/dL RDW Std Deviation (36.4-46.3) fL RDW Coeff of Ally (11.5-14.5) % Plt Count (130-400) K/uL MPV (7.4-10.4) fL Immature Gran % (Auto) % Neut % (Auto) % Lymph % (Auto) % Thayer % (Auto) % Eos % (Auto) % Baso % (Auto) % Immature Gran # (Auto) (0.00-0.02) K/uL Neut # (Auto) (1.4-6.5) K/uL Lymph # (Auto) (1.2-3.4) K/uL Thayer # (Auto) (0.11-0.59) K/uL Eos # (Auto) (0-0.5) K/uL Baso # (Auto) (0-0.2) K/uL Absolute Nucleated RBC Nucleated RBC % (auto) Neutrophils % (Manual) Band Neutrophils % Lymphocytes % (Manual) Prolymphocyte % Reactive Lymphs % (Man) Monocytes % (Manual) Eosinophils % (Manual) Basophils % (Manual) Metamyelocytes % (Man) Myelocytes % (Man) Promyelocytes % (Man) Blast Cells % (Manual) Plasma Cell % (Manual) Other Cells % Nucleated RBC % Neutrophils # (Manual) Band Neutrophils # Total Absolute Neuts Lymphocytes # (Manual) Prolymphocyte # Reactive Lymphs # Total Abs Lymphocytes Monocytes # (Manual) Eosinophils # (Manual) Basophils # (Manual) Metamyelocytes # (Man) Myelocytes # (Manual) Promyelocytes # (Man) Blast Cells # (Man) Plasma Cell # (Manual) Other Cells # Nucleated RBCs # (Man) Hypersegmented Neuts Hyposegmented Neuts Hypogranular Neuts Large Granular Lymphs # Lrg Granular Lymphs Hairy Cells Smudge Cells Toxic Granulation Toxic Vacuolation Dohle Bodies Christine Rods Platelet Estimate Hypogranular Platelets Clumped Platelets Giant Platelets Platelet Satelliting RBC Morphology Polychromasia Hypochromasia Poikilocytosis Basophilic Stippling Anisocytosis Microcytosis Macrocytosis Spherocytes Pappenheimer Bodies Sickle Cells Target Cells Tear Drop Cells Ovalocytes Stomatocytes JesusBridgman Bodies Echinocytes Acanthocytes (Spur) Rouleaux RBC Agglutinates Schistocytes RBC Morph Comment ESR (0-21) mm/hr Sezary Cell PT 26.5 H (9.0-12.0) Seconds INR 2.6 H (0.9-1.1) APTT (21.0-31.0) Seconds PTT Ratio Sample Site Art Line Art Line POC pH 7.32 L 7.37 (7.35-7.45) POC pCO2 20 L 18 L (35-46) mmHg POC pO2 118 H 139 H (80-95) mmHg POC HCO3 10 L 11 L (19-24) rosario/L POC Total CO2 11 L 11 L (24-31) mmol/L POC Base Excess -16.0 L -15.0 L (-9-1.8) rosario/L POC ABG O2 Sat 98.0 H 99.0 H (90-95) % Moncho Test NA NA O2 Delivery Device Ventilator Ventilator POC O2 Rate 20 20 Minute Ventilation POC FiO2 30 30 % Tidal Volume 420 420 PEEP 5 5 Sodium (136-145) mmol/L Potassium (3.5-5.1) mmol/L Chloride (98-107) mmol/L Carbon Dioxide (21-32) mmol/L Anion Gap (3-11) BUN (7-18) mg/dl Creatinine (0.6-1.2) mg/dl Est Cr Clr Drug Dosing ml/min Est GFR ( Amer) Est GFR (Non-Af Amer) BUN/Creatinine Ratio (10-20) Glucose (70-99) mg/dl POC Glucose (70-99) mg/dl Osmolality (280-300) mOsm/kg Lactate (0.4-2.0) mmol/L Calcium (8.5-10.1) mg/dl Phosphorus (2.5-4.9) mg/dl Magnesium (1.8-2.4) mg/dl Total Bilirubin (0.2-1) mg/dl Direct Bilirubin (0-0.2) mg/dl AST (15-37) U/L ALT (12-78) U/L Alkaline Phosphatase (45-117) U/L Ammonia (11-32) umol/L Troponin I (0-0.045) ng/ml C-Reactive Protein (0-0.29) mg/dl Total Protein (6.4-8.2) gm/dl Albumin (3.4-5.0) gm/dl Globulin (2.5-4.0) gm/dl Albumin/Globulin Ratio (0.9-2) Procalcitonin (0-0.5) ng/ml Random Cortisol mcg/dl Urine Color Urine Appearance (Clear) Urine pH (4.5-7.5) Ur Specific [place] (1.000-1.030) Urine Protein (Negative) Urine Glucose (UA) (Negative) Urine Ketones (Negative) Urine Blood (Negative) Urine Nitrite (Negative) Urine Bilirubin (Negative) Urine Urobilinogen (Negative) Ur Leukocyte Esterase (Negative) Urine WBC (Auto) (0-5) /hpf Urine RBC (Auto) (0-4) /hpf U Hyaline Cast (Auto) (0-5) /lpf U Epithel Cells (Auto) (0-5) /lpf Urine Bacteria (Auto) (Negative) Urine Osmolality (500-800) mOsm/kg Ur Random Creatinine mg/dl Ur Random Sodium Ur Random Potassium mmol/L Ur Random Chloride mmol/L Ur Random Uric Acid mg/dl Fluid Neutrophils % % Fluid Lymphocytes % % Fluid Eosinophils % % Fluid Basophils % % Fluid Meso/Macro/Thayer % % Fluid Glucose Peritoneal Color Peritoneal Appearance Peritoneal WBC (0-300) /ul Peritoneal RBC /uL Peritoneal Tot Protein g/dl Peritoneal Albumin g/dl Peritoneal Glucose mg/dl Random Vancomycin mcg/ml Urine Opiates Screen (Neg) Ur Methadone, Qual (Neg) Urine Barbiturates (Neg) Ur Phencyclidine (PCP) (Neg) U Amphetamin/Meth Scrn (Neg) MDMA (Ecstasy) Screen (Neg) U Benzodiazepines Scrn (Neg) Ur Cocaine Metabolite (Neg) U Marijuana (THC) Screen (Neg) U Marijuana THC Carboxy Drug Screen Comment Blood Type Antibody Screen Crossmatch 11/15/19 11/15/19 11/15/19 Range/Units 01:40 01:40 01:40 WBC 15.52 H (4.8-10.8) K/uL RBC 2.03 L (4.2-5.4) M/uL Hgb 6.7 L* (12.0-16.0) g/dL Hct 19.1 L* (37-47) % MCV 94.1 (80-100) fL MCH 33.0 (25-34) pg MCHC 35.1 (32-36) g/dL RDW Std Deviation 60.7 H (36.4-46.3) fL RDW Coeff of Ally 19.0 H (11.5-14.5) % Plt Count 62 L (130-400) K/uL MPV 10.1 (7.4-10.4) fL Immature Gran % (Auto) 3.3 % Neut % (Auto) 80.6 % Lymph % (Auto) 10.4 % Thayer % (Auto) 5.4 % Eos % (Auto) 0.1 % Baso % (Auto) 0.2 % Immature Gran # (Auto) 0.51 H (0.00-0.02) K/uL Neut # (Auto) 12.51 H (1.4-6.5) K/uL Lymph # (Auto) 1.61 (1.2-3.4) K/uL Thayer # (Auto) 0.84 H (0.11-0.59) K/uL Eos # (Auto) 0.02 (0-0.5) K/uL Baso # (Auto) 0.03 (0-0.2) K/uL Absolute Nucleated RBC Nucleated RBC % (auto) Neutrophils % (Manual) Band Neutrophils % Lymphocytes % (Manual) Prolymphocyte % Reactive Lymphs % (Man) Monocytes % (Manual) Eosinophils % (Manual) Basophils % (Manual) Metamyelocytes % (Man) Myelocytes % (Man) Promyelocytes % (Man) Blast Cells % (Manual) Plasma Cell % (Manual) Other Cells % Nucleated RBC % Neutrophils # (Manual) Band Neutrophils # Total Absolute Neuts Lymphocytes # (Manual) Prolymphocyte # Reactive Lymphs # Total Abs Lymphocytes Monocytes # (Manual) Eosinophils # (Manual) Basophils # (Manual) Metamyelocytes # (Man) Myelocytes # (Manual) Promyelocytes # (Man) Blast Cells # (Man) Plasma Cell # (Manual) Other Cells # Nucleated RBCs # (Man) Hypersegmented Neuts Hyposegmented Neuts Hypogranular Neuts Large Granular Lymphs # Lrg Granular Lymphs Hairy Cells Smudge Cells Toxic Granulation Toxic Vacuolation Dohle Bodies 1+ Christine Rods Platelet Estimate Hypogranular Platelets Clumped Platelets Giant Platelets Platelet Satelliting RBC Morphology Polychromasia Hypochromasia Poikilocytosis Basophilic Stippling Anisocytosis Microcytosis Macrocytosis Spherocytes Pappenheimer Bodies Sickle Cells Target Cells Tear Drop Cells Ovalocytes Stomatocytes Garza-Bridgman Bodies Echinocytes 1+ Acanthocytes (Spur) Rouleaux RBC Agglutinates Schistocytes RBC Morph Comment ESR (0-21) mm/hr Sezary Cell PT (9.0-12.0) Seconds INR (0.9-1.1) APTT (21.0-31.0) Seconds PTT Ratio Sample Site POC pH (7.35-7.45) POC pCO2 (35-46) mmHg POC pO2 (80-95) mmHg POC HCO3 (19-24) rosario/L POC Total CO2 (24-31) mmol/L POC Base Excess (-9-1.8) rosario/L POC ABG O2 Sat (90-95) % Moncho Test O2 Delivery Device POC O2 Rate Minute Ventilation POC FiO2 % Tidal Volume PEEP Sodium (136-145) mmol/L Potassium (3.5-5.1) mmol/L Chloride (98-107) mmol/L Carbon Dioxide (21-32) mmol/L Anion Gap (3-11) BUN (7-18) mg/dl Creatinine (0.6-1.2) mg/dl Est Cr Clr Drug Dosing ml/min Est GFR ( Amer) Est GFR (Non-Af Amer) BUN/Creatinine Ratio (10-20) Glucose (70-99) mg/dl POC Glucose (70-99) mg/dl Osmolality (280-300) mOsm/kg Lactate 9.0 H* (0.4-2.0) mmol/L Calcium (8.5-10.1) mg/dl Phosphorus (2.5-4.9) mg/dl Magnesium (1.8-2.4) mg/dl Total Bilirubin (0.2-1) mg/dl Direct Bilirubin (0-0.2) mg/dl AST (15-37) U/L ALT (12-78) U/L Alkaline Phosphatase (45-117) U/L Ammonia (11-32) umol/L Troponin I 1.370 H* (0-0.045) ng/ml C-Reactive Protein (0-0.29) mg/dl Total Protein (6.4-8.2) gm/dl Albumin (3.4-5.0) gm/dl Globulin (2.5-4.0) gm/dl Albumin/Globulin Ratio (0.9-2) Procalcitonin (0-0.5) ng/ml Random Cortisol mcg/dl Urine Color Urine Appearance (Clear) Urine pH (4.5-7.5) Ur Specific [place] (1.000-1.030) Urine Protein (Negative) Urine Glucose (UA) (Negative) Urine Ketones (Negative) Urine Blood (Negative) Urine Nitrite (Negative) Urine Bilirubin (Negative) Urine Urobilinogen (Negative) Ur Leukocyte Esterase (Negative) Urine WBC (Auto) (0-5) /hpf Urine RBC (Auto) (0-4) /hpf U Hyaline Cast (Auto) (0-5) /lpf U Epithel Cells (Auto) (0-5) /lpf Urine Bacteria (Auto) (Negative) Urine Osmolality (500-800) mOsm/kg Ur Random Creatinine mg/dl Ur Random Sodium Ur Random Potassium mmol/L Ur Random Chloride mmol/L Ur Random Uric Acid mg/dl Fluid Neutrophils % % Fluid Lymphocytes % % Fluid Eosinophils % % Fluid Basophils % % Fluid Meso/Macro/Thayer % % Fluid Glucose Peritoneal Color Peritoneal Appearance Peritoneal WBC (0-300) /ul Peritoneal RBC /uL Peritoneal Tot Protein g/dl Peritoneal Albumin g/dl Peritoneal Glucose mg/dl Random Vancomycin mcg/ml Urine Opiates Screen (Neg) Ur Methadone, Qual (Neg) Urine Barbiturates (Neg) Ur Phencyclidine (PCP) (Neg) U Amphetamin/Meth Scrn (Neg) MDMA (Ecstasy) Screen (Neg) U Benzodiazepines Scrn (Neg) Ur Cocaine Metabolite (Neg) U Marijuana (THC) Screen (Neg) U Marijuana THC Carboxy Drug Screen Comment Blood Type Antibody Screen Crossmatch 11/14/19 11/14/19 11/14/19 Range/Units 23:35 21:57 20:33 WBC (4.8-10.8) K/uL RBC (4.2-5.4) M/uL Hgb 7.0 L (12.0-16.0) g/dL Hct 20.4 L* (37-47) % MCV (80-100) fL MCH (25-34) pg MCHC (32-36) g/dL RDW Std Deviation (36.4-46.3) fL RDW Coeff of Ally (11.5-14.5) % Plt Count (130-400) K/uL MPV (7.4-10.4) fL Immature Gran % (Auto) % Neut % (Auto) % Lymph % (Auto) % Thayer % (Auto) % Eos % (Auto) % Baso % (Auto) % Immature Gran # (Auto) (0.00-0.02) K/uL Neut # (Auto) (1.4-6.5) K/uL Lymph # (Auto) (1.2-3.4) K/uL Thayer # (Auto) (0.11-0.59) K/uL Eos # (Auto) (0-0.5) K/uL Baso # (Auto) (0-0.2) K/uL Absolute Nucleated RBC Nucleated RBC % (auto) Neutrophils % (Manual) Band Neutrophils % Lymphocytes % (Manual) Prolymphocyte % Reactive Lymphs % (Man) Monocytes % (Manual) Eosinophils % (Manual) Basophils % (Manual) Metamyelocytes % (Man) Myelocytes % (Man) Promyelocytes % (Man) Blast Cells % (Manual) Plasma Cell % (Manual) Other Cells % Nucleated RBC % Neutrophils # (Manual) Band Neutrophils # Total Absolute Neuts Lymphocytes # (Manual) Prolymphocyte # Reactive Lymphs # Total Abs Lymphocytes Monocytes # (Manual) Eosinophils # (Manual) Basophils # (Manual) Metamyelocytes # (Man) Myelocytes # (Manual) Promyelocytes # (Man) Blast Cells # (Man) Plasma Cell # (Manual) Other Cells # Nucleated RBCs # (Man) Hypersegmented Neuts Hyposegmented Neuts Hypogranular Neuts Large Granular Lymphs # Lrg Granular Lymphs Hairy Cells Smudge Cells Toxic Granulation Toxic Vacuolation Dohle Bodies Christine Rods Platelet Estimate Hypogranular Platelets Clumped Platelets Giant Platelets Platelet Satelliting RBC Morphology Polychromasia Hypochromasia Poikilocytosis Basophilic Stippling Anisocytosis Microcytosis Macrocytosis Spherocytes Pappenheimer Bodies Sickle Cells Target Cells Tear Drop Cells Ovalocytes Stomatocytes Garza-Bridgman Bodies Echinocytes Acanthocytes (Spur) Rouleaux RBC Agglutinates Schistocytes RBC Morph Comment ESR (0-21) mm/hr Sezary Cell PT 24.0 H (9.0-12.0) Seconds INR 2.4 H (0.9-1.1) APTT (21.0-31.0) Seconds PTT Ratio Sample Site L Radial POC pH 7.38 (7.35-7.45) POC pCO2 22 L (35-46) mmHg POC pO2 199 H (80-95) mmHg POC HCO3 13 L (19-24) rosario/L POC Total CO2 13 L (24-31) mmol/L POC Base Excess -12.0 L (-9-1.8) rosario/L POC ABG O2 Sat 100.0 H (90-95) % Moncho Test Pass O2 Delivery Device Ventilator POC O2 Rate 20 Minute Ventilation 16.0 POC FiO2 4 % Tidal Volume 420 PEEP 5 Sodium (136-145) mmol/L Potassium (3.5-5.1) mmol/L Chloride (98-107) mmol/L Carbon Dioxide (21-32) mmol/L Anion Gap (3-11) BUN (7-18) mg/dl Creatinine (0.6-1.2) mg/dl Est Cr Clr Drug Dosing ml/min Est GFR ( Amer) Est GFR (Non-Af Amer) BUN/Creatinine Ratio (10-20) Glucose (70-99) mg/dl POC Glucose (70-99) mg/dl Osmolality (280-300) mOsm/kg Lactate (0.4-2.0) mmol/L Calcium (8.5-10.1) mg/dl Phosphorus (2.5-4.9) mg/dl Magnesium (1.8-2.4) mg/dl Total Bilirubin (0.2-1) mg/dl Direct Bilirubin (0-0.2) mg/dl AST (15-37) U/L ALT (12-78) U/L Alkaline Phosphatase (45-117) U/L Ammonia (11-32) umol/L Troponin I (0-0.045) ng/ml C-Reactive Protein (0-0.29) mg/dl Total Protein (6.4-8.2) gm/dl Albumin (3.4-5.0) gm/dl Globulin (2.5-4.0) gm/dl Albumin/Globulin Ratio (0.9-2) Procalcitonin (0-0.5) ng/ml Random Cortisol mcg/dl Urine Color Urine Appearance (Clear) Urine pH (4.5-7.5) Ur Specific [place] (1.000-1.030) Urine Protein (Negative) Urine Glucose (UA) (Negative) Urine Ketones (Negative) Urine Blood (Negative) Urine Nitrite (Negative) Urine Bilirubin (Negative) Urine Urobilinogen (Negative) Ur Leukocyte Esterase (Negative) Urine WBC (Auto) (0-5) /hpf Urine RBC (Auto) (0-4) /hpf U Hyaline Cast (Auto) (0-5) /lpf U Epithel Cells (Auto) (0-5) /lpf Urine Bacteria (Auto) (Negative) Urine Osmolality (500-800) mOsm/kg Ur Random Creatinine mg/dl Ur Random Sodium Ur Random Potassium mmol/L Ur Random Chloride mmol/L Ur Random Uric Acid mg/dl Fluid Neutrophils % % Fluid Lymphocytes % % Fluid Eosinophils % % Fluid Basophils % % Fluid Meso/Macro/Thayer % % Fluid Glucose Peritoneal Color Peritoneal Appearance Peritoneal WBC (0-300) /ul Peritoneal RBC /uL Peritoneal Tot Protein g/dl Peritoneal Albumin g/dl Peritoneal Glucose mg/dl Random Vancomycin mcg/ml Urine Opiates Screen (Neg) Ur Methadone, Qual (Neg) Urine Barbiturates (Neg) Ur Phencyclidine (PCP) (Neg) U Amphetamin/Meth Scrn (Neg) MDMA (Ecstasy) Screen (Neg) U Benzodiazepines Scrn (Neg) Ur Cocaine Metabolite (Neg) U Marijuana (THC) Screen (Neg) U Marijuana THC Carboxy Drug Screen Comment Blood Type Antibody Screen Crossmatch 11/14/19 11/14/19 11/14/19 Range/Units 18:08 18:08 14:20 WBC (4.8-10.8) K/uL RBC (4.2-5.4) M/uL Hgb 7.7 L (12.0-16.0) g/dL Hct 21.9 L (37-47) % MCV (80-100) fL MCH (25-34) pg MCHC (32-36) g/dL RDW Std Deviation (36.4-46.3) fL RDW Coeff of Ally (11.5-14.5) % Plt Count (130-400) K/uL MPV (7.4-10.4) fL Immature Gran % (Auto) % Neut % (Auto) % Lymph % (Auto) % Thayer % (Auto) % Eos % (Auto) % Baso % (Auto) % Immature Gran # (Auto) (0.00-0.02) K/uL Neut # (Auto) (1.4-6.5) K/uL Lymph # (Auto) (1.2-3.4) K/uL Thayer # (Auto) (0.11-0.59) K/uL Eos # (Auto) (0-0.5) K/uL Baso # (Auto) (0-0.2) K/uL Absolute Nucleated RBC Nucleated RBC % (auto) Neutrophils % (Manual) Band Neutrophils % Lymphocytes % (Manual) Prolymphocyte % Reactive Lymphs % (Man) Monocytes % (Manual) Eosinophils % (Manual) Basophils % (Manual) Metamyelocytes % (Man) Myelocytes % (Man) Promyelocytes % (Man) Blast Cells % (Manual) Plasma Cell % (Manual) Other Cells % Nucleated RBC % Neutrophils # (Manual) Band Neutrophils # Total Absolute Neuts Lymphocytes # (Manual) Prolymphocyte # Reactive Lymphs # Total Abs Lymphocytes Monocytes # (Manual) Eosinophils # (Manual) Basophils # (Manual) Metamyelocytes # (Man) Myelocytes # (Manual) Promyelocytes # (Man) Blast Cells # (Man) Plasma Cell # (Manual) Other Cells # Nucleated RBCs # (Man) Hypersegmented Neuts Hyposegmented Neuts Hypogranular Neuts Large Granular Lymphs # Lrg Granular Lymphs Hairy Cells Smudge Cells Toxic Granulation Toxic Vacuolation Dohle Bodies Christine Rods Platelet Estimate Hypogranular Platelets Clumped Platelets Giant Platelets Platelet Satelliting RBC Morphology Polychromasia Hypochromasia Poikilocytosis Basophilic Stippling Anisocytosis Microcytosis Macrocytosis Spherocytes Pappenheimer Bodies Sickle Cells Target Cells Tear Drop Cells Ovalocytes Stomatocytes Garza-Bridgman Bodies Echinocytes Acanthocytes (Spur) Rouleaux RBC Agglutinates Schistocytes RBC Morph Comment ESR (0-21) mm/hr Sezary Cell PT (9.0-12.0) Seconds INR (0.9-1.1) APTT (21.0-31.0) Seconds PTT Ratio Sample Site POC pH (7.35-7.45) POC pCO2 (35-46) mmHg POC pO2 (80-95) mmHg POC HCO3 (19-24) rosario/L POC Total CO2 (24-31) mmol/L POC Base Excess (-9-1.8) rosario/L POC ABG O2 Sat (90-95) % Moncho Test O2 Delivery Device POC O2 Rate Minute Ventilation POC FiO2 % Tidal Volume PEEP Sodium (136-145) mmol/L Potassium (3.5-5.1) mmol/L Chloride (98-107) mmol/L Carbon Dioxide (21-32) mmol/L Anion Gap (3-11) BUN (7-18) mg/dl Creatinine (0.6-1.2) mg/dl Est Cr Clr Drug Dosing ml/min Est GFR ( Amer) Est GFR (Non-Af Amer) BUN/Creatinine Ratio (10-20) Glucose (70-99) mg/dl POC Glucose (70-99) mg/dl Osmolality (280-300) mOsm/kg Lactate (0.4-2.0) mmol/L Calcium (8.5-10.1) mg/dl Phosphorus (2.5-4.9) mg/dl Magnesium (1.8-2.4) mg/dl Total Bilirubin (0.2-1) mg/dl Direct Bilirubin (0-0.2) mg/dl AST (15-37) U/L ALT (12-78) U/L Alkaline Phosphatase (45-117) U/L Ammonia (11-32) umol/L Troponin I 0.178 H* (0-0.045) ng/ml C-Reactive Protein (0-0.29) mg/dl Total Protein (6.4-8.2) gm/dl Albumin (3.4-5.0) gm/dl Globulin (2.5-4.0) gm/dl Albumin/Globulin Ratio (0.9-2) Procalcitonin (0-0.5) ng/ml Random Cortisol mcg/dl Urine Color Urine Appearance (Clear) Urine pH (4.5-7.5) Ur Specific [place] (1.000-1.030) Urine Protein (Negative) Urine Glucose (UA) (Negative) Urine Ketones (Negative) Urine Blood (Negative) Urine Nitrite (Negative) Urine Bilirubin (Negative) Urine Urobilinogen (Negative) Ur Leukocyte Esterase (Negative) Urine WBC (Auto) (0-5) /hpf Urine RBC (Auto) (0-4) /hpf U Hyaline Cast (Auto) (0-5) /lpf U Epithel Cells (Auto) (0-5) /lpf Urine Bacteria (Auto) (Negative) Urine Osmolality (500-800) mOsm/kg Ur Random Creatinine mg/dl Ur Random Sodium Ur Random Potassium mmol/L Ur Random Chloride mmol/L Ur Random Uric Acid mg/dl Fluid Neutrophils % % Fluid Lymphocytes % % Fluid Eosinophils % % Fluid Basophils % % Fluid Meso/Macro/Thayer % % Fluid Glucose Peritoneal Color Peritoneal Appearance Peritoneal WBC (0-300) /ul Peritoneal RBC /uL Peritoneal Tot Protein g/dl Peritoneal Albumin g/dl Peritoneal Glucose 124 mg/dl Random Vancomycin mcg/ml Urine Opiates Screen (Neg) Ur Methadone, Qual (Neg) Urine Barbiturates (Neg) Ur Phencyclidine (PCP) (Neg) U Amphetamin/Meth Scrn (Neg) MDMA (Ecstasy) Screen (Neg) U Benzodiazepines Scrn (Neg) Ur Cocaine Metabolite (Neg) U Marijuana (THC) Screen (Neg) U Marijuana THC Carboxy Drug Screen Comment Blood Type Antibody Screen Crossmatch 11/14/19 11/14/19 11/14/19 Range/Units 14:20 14:20 14:19 WBC (4.8-10.8) K/uL RBC (4.2-5.4) M/uL Hgb (12.0-16.0) g/dL Hct (37-47) % MCV (80-100) fL MCH (25-34) pg MCHC (32-36) g/dL RDW Std Deviation (36.4-46.3) fL RDW Coeff of Ally (11.5-14.5) % Plt Count (130-400) K/uL MPV (7.4-10.4) fL Immature Gran % (Auto) % Neut % (Auto) % Lymph % (Auto) % Thayer % (Auto) % Eos % (Auto) % Baso % (Auto) % Immature Gran # (Auto) (0.00-0.02) K/uL Neut # (Auto) (1.4-6.5) K/uL Lymph # (Auto) (1.2-3.4) K/uL Thayer # (Auto) (0.11-0.59) K/uL Eos # (Auto) (0-0.5) K/uL Baso # (Auto) (0-0.2) K/uL Absolute Nucleated RBC Nucleated RBC % (auto) Neutrophils % (Manual) Band Neutrophils % Lymphocytes % (Manual) Prolymphocyte % Reactive Lymphs % (Man) Monocytes % (Manual) Eosinophils % (Manual) Basophils % (Manual) Metamyelocytes % (Man) Myelocytes % (Man) Promyelocytes % (Man) Blast Cells % (Manual) Plasma Cell % (Manual) Other Cells % Nucleated RBC % Neutrophils # (Manual) Band Neutrophils # Total Absolute Neuts Lymphocytes # (Manual) Prolymphocyte # Reactive Lymphs # Total Abs Lymphocytes Monocytes # (Manual) Eosinophils # (Manual) Basophils # (Manual) Metamyelocytes # (Man) Myelocytes # (Manual) Promyelocytes # (Man) Blast Cells # (Man) Plasma Cell # (Manual) Other Cells # Nucleated RBCs # (Man) Hypersegmented Neuts Hyposegmented Neuts Hypogranular Neuts Large Granular Lymphs # Lrg Granular Lymphs Hairy Cells Smudge Cells Toxic Granulation Toxic Vacuolation Dohle Bodies Christine Rods Platelet Estimate Hypogranular Platelets Clumped Platelets Giant Platelets Platelet Satelliting RBC Morphology Polychromasia Hypochromasia Poikilocytosis Basophilic Stippling Anisocytosis Microcytosis Macrocytosis Spherocytes Pappenheimer Bodies Sickle Cells Target Cells Tear Drop Cells Ovalocytes Stomatocytes Garza-Bridgman Bodies Echinocytes Acanthocytes (Spur) Rouleaux RBC Agglutinates Schistocytes RBC Morph Comment ESR (0-21) mm/hr Sezary Cell PT (9.0-12.0) Seconds INR (0.9-1.1) APTT (21.0-31.0) Seconds PTT Ratio Sample Site POC pH (7.35-7.45) POC pCO2 (35-46) mmHg POC pO2 (80-95) mmHg POC HCO3 (19-24) rosario/L POC Total CO2 (24-31) mmol/L POC Base Excess (-9-1.8) rosario/L POC ABG O2 Sat (90-95) % Moncho Test O2 Delivery Device POC O2 Rate Minute Ventilation POC FiO2 % Tidal Volume PEEP Sodium 135 L (136-145) mmol/L Potassium 3.7 (3.5-5.1) mmol/L Chloride 101 (98-107) mmol/L Carbon Dioxide 19 L (21-32) mmol/L Anion Gap 15.0 H (3-11) BUN 54 H (7-18) mg/dl Creatinine 4.12 H (0.6-1.2) mg/dl Est Cr Clr Drug Dosing 16.3 ml/min Est GFR ( Amer) 13.3 Est GFR (Non-Af Amer) 11.4 BUN/Creatinine Ratio 13.0 (10-20) Glucose 129 H (70-99) mg/dl POC Glucose (70-99) mg/dl Osmolality (280-300) mOsm/kg Lactate (0.4-2.0) mmol/L Calcium 8.1 L (8.5-10.1) mg/dl Phosphorus (2.5-4.9) mg/dl Magnesium (1.8-2.4) mg/dl Total Bilirubin (0.2-1) mg/dl Direct Bilirubin (0-0.2) mg/dl AST (15-37) U/L ALT (12-78) U/L Alkaline Phosphatase (45-117) U/L Ammonia (11-32) umol/L Troponin I (0-0.045) ng/ml C-Reactive Protein (0-0.29) mg/dl Total Protein 7.7 (6.4-8.2) gm/dl Albumin 2.6 L (3.4-5.0) gm/dl Globulin (2.5-4.0) gm/dl Albumin/Globulin Ratio (0.9-2) Procalcitonin (0-0.5) ng/ml Random Cortisol mcg/dl Urine Color Urine Appearance (Clear) Urine pH (4.5-7.5) Ur Specific [place] (1.000-1.030) Urine Protein (Negative) Urine Glucose (UA) (Negative) Urine Ketones (Negative) Urine Blood (Negative) Urine Nitrite (Negative) Urine Bilirubin (Negative) Urine Urobilinogen (Negative) Ur Leukocyte Esterase (Negative) Urine WBC (Auto) (0-5) /hpf Urine RBC (Auto) (0-4) /hpf U Hyaline Cast (Auto) (0-5) /lpf U Epithel Cells (Auto) (0-5) /lpf Urine Bacteria (Auto) (Negative) Urine Osmolality (500-800) mOsm/kg Ur Random Creatinine mg/dl Ur Random Sodium Ur Random Potassium mmol/L Ur Random Chloride mmol/L Ur Random Uric Acid mg/dl Fluid Neutrophils % 17 % Fluid Lymphocytes % 32 % Fluid Eosinophils % 1 % Fluid Basophils % 0 % Fluid Meso/Macro/Thayer % 50 % Fluid Glucose Cancelled Peritoneal Color YELLOW Peritoneal Appearance CLEAR Peritoneal WBC 136 (0-300) /ul Peritoneal RBC < 3000 /uL Peritoneal Tot Protein 1.9 g/dl Peritoneal Albumin 0.6 g/dl Peritoneal Glucose mg/dl Random Vancomycin mcg/ml Urine Opiates Screen (Neg) Ur Methadone, Qual (Neg) Urine Barbiturates (Neg) Ur Phencyclidine (PCP) (Neg) U Amphetamin/Meth Scrn (Neg) MDMA (Ecstasy) Screen (Neg) U Benzodiazepines Scrn (Neg) Ur Cocaine Metabolite (Neg) U Marijuana (THC) Screen (Neg) U Marijuana THC Carboxy Drug Screen Comment Blood Type Antibody Screen Crossmatch 11/14/19 11/14/19 11/14/19 Range/Units 14:19 14:19 14:19 WBC 14.94 H (4.8-10.8) K/uL RBC 2.12 L (4.2-5.4) M/uL Hgb 7.1 L (12.0-16.0) g/dL Hct 20.1 L* (37-47) % MCV 94.8 D (80-100) fL MCH 33.5 (25-34) pg MCHC 35.3 (32-36) g/dL RDW Std Deviation 56.8 H (36.4-46.3) fL RDW Coeff of Ally 17.8 H (11.5-14.5) % Plt Count 66 L (130-400) K/uL MPV 9.9 (7.4-10.4) fL Immature Gran % (Auto) % Neut % (Auto) % Lymph % (Auto) % Thayer % (Auto) % Eos % (Auto) % Baso % (Auto) % Immature Gran # (Auto) (0.00-0.02) K/uL Neut # (Auto) (1.4-6.5) K/uL Lymph # (Auto) (1.2-3.4) K/uL Thayer # (Auto) (0.11-0.59) K/uL Eos # (Auto) (0-0.5) K/uL Baso # (Auto) (0-0.2) K/uL Absolute Nucleated RBC Nucleated RBC % (auto) Neutrophils % (Manual) Band Neutrophils % Lymphocytes % (Manual) Prolymphocyte % Reactive Lymphs % (Man) Monocytes % (Manual) Eosinophils % (Manual) Basophils % (Manual) Metamyelocytes % (Man) Myelocytes % (Man) Promyelocytes % (Man) Blast Cells % (Manual) Plasma Cell % (Manual) Other Cells % Nucleated RBC % Neutrophils # (Manual) Band Neutrophils # Total Absolute Neuts Lymphocytes # (Manual) Prolymphocyte # Reactive Lymphs # Total Abs Lymphocytes Monocytes # (Manual) Eosinophils # (Manual) Basophils # (Manual) Metamyelocytes # (Man) Myelocytes # (Manual) Promyelocytes # (Man) Blast Cells # (Man) Plasma Cell # (Manual) Other Cells # Nucleated RBCs # (Man) Hypersegmented Neuts Hyposegmented Neuts Hypogranular Neuts Large Granular Lymphs # Lrg Granular Lymphs Hairy Cells Smudge Cells Toxic Granulation Toxic Vacuolation Dohle Bodies Christine Rods Platelet Estimate Hypogranular Platelets Clumped Platelets Giant Platelets Platelet Satelliting RBC Morphology Polychromasia Hypochromasia Poikilocytosis Basophilic Stippling Anisocytosis Microcytosis Macrocytosis Spherocytes Pappenheimer Bodies Sickle Cells Target Cells Tear Drop Cells Ovalocytes Stomatocytes Garza-Bridgman Bodies Echinocytes Acanthocytes (Spur) Rouleaux RBC Agglutinates Schistocytes RBC Morph Comment ESR (0-21) mm/hr Sezary Cell PT 16.3 H (9.0-12.0) Seconds INR 1.6 H (0.9-1.1) APTT 39.8 H (21.0-31.0) Seconds PTT Ratio 1.4 Sample Site POC pH (7.35-7.45) POC pCO2 (35-46) mmHg POC pO2 (80-95) mmHg POC HCO3 (19-24) rosario/L POC Total CO2 (24-31) mmol/L POC Base Excess (-9-1.8) rosario/L POC ABG O2 Sat (90-95) % Moncho Test O2 Delivery Device POC O2 Rate Minute Ventilation POC FiO2 % Tidal Volume PEEP Sodium (136-145) mmol/L Potassium (3.5-5.1) mmol/L Chloride (98-107) mmol/L Carbon Dioxide (21-32) mmol/L Anion Gap (3-11) BUN (7-18) mg/dl Creatinine (0.6-1.2) mg/dl Est Cr Clr Drug Dosing ml/min Est GFR ( Amer) Est GFR (Non-Af Amer) BUN/Creatinine Ratio (10-20) Glucose (70-99) mg/dl POC Glucose (70-99) mg/dl Osmolality (280-300) mOsm/kg Lactate 4.5 H* (0.4-2.0) mmol/L Calcium (8.5-10.1) mg/dl Phosphorus (2.5-4.9) mg/dl Magnesium (1.8-2.4) mg/dl Total Bilirubin (0.2-1) mg/dl Direct Bilirubin (0-0.2) mg/dl AST (15-37) U/L ALT (12-78) U/L Alkaline Phosphatase (45-117) U/L Ammonia (11-32) umol/L Troponin I (0-0.045) ng/ml C-Reactive Protein (0-0.29) mg/dl Total Protein (6.4-8.2) gm/dl Albumin (3.4-5.0) gm/dl Globulin (2.5-4.0) gm/dl Albumin/Globulin Ratio (0.9-2) Procalcitonin (0-0.5) ng/ml Random Cortisol mcg/dl Urine Color Urine Appearance (Clear) Urine pH (4.5-7.5) Ur Specific [place] (1.000-1.030) Urine Protein (Negative) Urine Glucose (UA) (Negative) Urine Ketones (Negative) Urine Blood (Negative) Urine Nitrite (Negative) Urine Bilirubin (Negative) Urine Urobilinogen (Negative) Ur Leukocyte Esterase (Negative) Urine WBC (Auto) (0-5) /hpf Urine RBC (Auto) (0-4) /hpf U Hyaline Cast (Auto) (0-5) /lpf U Epithel Cells (Auto) (0-5) /lpf Urine Bacteria (Auto) (Negative) Urine Osmolality (500-800) mOsm/kg Ur Random Creatinine mg/dl Ur Random Sodium Ur Random Potassium mmol/L Ur Random Chloride mmol/L Ur Random Uric Acid mg/dl Fluid Neutrophils % % Fluid Lymphocytes % % Fluid Eosinophils % % Fluid Basophils % % Fluid Meso/Macro/Thayer % % Fluid Glucose Peritoneal Color Peritoneal Appearance Peritoneal WBC (0-300) /ul Peritoneal RBC /uL Peritoneal Tot Protein g/dl Peritoneal Albumin g/dl Peritoneal Glucose mg/dl Random Vancomycin mcg/ml Urine Opiates Screen (Neg) Ur Methadone, Qual (Neg) Urine Barbiturates (Neg) Ur Phencyclidine (PCP) (Neg) U Amphetamin/Meth Scrn (Neg) MDMA (Ecstasy) Screen (Neg) U Benzodiazepines Scrn (Neg) Ur Cocaine Metabolite (Neg) U Marijuana (THC) Screen (Neg) U Marijuana THC Carboxy Drug Screen Comment Blood Type Antibody Screen Crossmatch 11/14/19 11/14/19 11/14/19 Range/Units 14:19 10:53 10:15 WBC (4.8-10.8) K/uL RBC (4.2-5.4) M/uL Hgb (12.0-16.0) g/dL Hct (37-47) % MCV (80-100) fL MCH (25-34) pg MCHC (32-36) g/dL RDW Std Deviation (36.4-46.3) fL RDW Coeff of Ally (11.5-14.5) % Plt Count (130-400) K/uL MPV (7.4-10.4) fL Immature Gran % (Auto) % Neut % (Auto) % Lymph % (Auto) % Thayer % (Auto) % Eos % (Auto) % Baso % (Auto) % Immature Gran # (Auto) (0.00-0.02) K/uL Neut # (Auto) (1.4-6.5) K/uL Lymph # (Auto) (1.2-3.4) K/uL Thayer # (Auto) (0.11-0.59) K/uL Eos # (Auto) (0-0.5) K/uL Baso # (Auto) (0-0.2) K/uL Absolute Nucleated RBC Nucleated RBC % (auto) Neutrophils % (Manual) Band Neutrophils % Lymphocytes % (Manual) Prolymphocyte % Reactive Lymphs % (Man) Monocytes % (Manual) Eosinophils % (Manual) Basophils % (Manual) Metamyelocytes % (Man) Myelocytes % (Man) Promyelocytes % (Man) Blast Cells % (Manual) Plasma Cell % (Manual) Other Cells % Nucleated RBC % Neutrophils # (Manual) Band Neutrophils # Total Absolute Neuts Lymphocytes # (Manual) Prolymphocyte # Reactive Lymphs # Total Abs Lymphocytes Monocytes # (Manual) Eosinophils # (Manual) Basophils # (Manual) Metamyelocytes # (Man) Myelocytes # (Manual) Promyelocytes # (Man) Blast Cells # (Man) Plasma Cell # (Manual) Other Cells # Nucleated RBCs # (Man) Hypersegmented Neuts Hyposegmented Neuts Hypogranular Neuts Large Granular Lymphs # Lrg Granular Lymphs Hairy Cells Smudge Cells Toxic Granulation Toxic Vacuolation Dohle Bodies Christine Rods Platelet Estimate Hypogranular Platelets Clumped Platelets Giant Platelets Platelet Satelliting RBC Morphology Polychromasia Hypochromasia Poikilocytosis Basophilic Stippling Anisocytosis Microcytosis Macrocytosis Spherocytes Pappenheimer Bodies Sickle Cells Target Cells Tear Drop Cells Ovalocytes Stomatocytes Garza-Bridgman Bodies Echinocytes Acanthocytes (Spur) Rouleaux RBC Agglutinates Schistocytes RBC Morph Comment ESR (0-21) mm/hr Sezary Cell PT (9.0-12.0) Seconds INR (0.9-1.1) APTT (21.0-31.0) Seconds PTT Ratio Sample Site POC pH (7.35-7.45) POC pCO2 (35-46) mmHg POC pO2 (80-95) mmHg POC HCO3 (19-24) rosario/L POC Total CO2 (24-31) mmol/L POC Base Excess (-9-1.8) rosario/L POC ABG O2 Sat (90-95) % Moncho Test O2 Delivery Device POC O2 Rate Minute Ventilation POC FiO2 % Tidal Volume PEEP Sodium (136-145) mmol/L Potassium (3.5-5.1) mmol/L Chloride (98-107) mmol/L Carbon Dioxide (21-32) mmol/L Anion Gap (3-11) BUN (7-18) mg/dl Creatinine (0.6-1.2) mg/dl Est Cr Clr Drug Dosing ml/min Est GFR ( Amer) Est GFR (Non-Af Amer) BUN/Creatinine Ratio (10-20) Glucose (70-99) mg/dl POC Glucose 113 H (70-99) mg/dl Osmolality (280-300) mOsm/kg Lactate (0.4-2.0) mmol/L Calcium (8.5-10.1) mg/dl Phosphorus (2.5-4.9) mg/dl Magnesium (1.8-2.4) mg/dl Total Bilirubin (0.2-1) mg/dl Direct Bilirubin (0-0.2) mg/dl AST (15-37) U/L ALT (12-78) U/L Alkaline Phosphatase (45-117) U/L Ammonia (11-32) umol/L Troponin I 0.125 H* (0-0.045) ng/ml C-Reactive Protein (0-0.29) mg/dl Total Protein (6.4-8.2) gm/dl Albumin (3.4-5.0) gm/dl Globulin (2.5-4.0) gm/dl Albumin/Globulin Ratio (0.9-2) Procalcitonin (0-0.5) ng/ml Random Cortisol mcg/dl Urine Color Urine Appearance (Clear) Urine pH (4.5-7.5) Ur Specific [place] (1.000-1.030) Urine Protein (Negative) Urine Glucose (UA) (Negative) Urine Ketones (Negative) Urine Blood (Negative) Urine Nitrite (Negative) Urine Bilirubin (Negative) Urine Urobilinogen (Negative) Ur Leukocyte Esterase (Negative) Urine WBC (Auto) (0-5) /hpf Urine RBC (Auto) (0-4) /hpf U Hyaline Cast (Auto) (0-5) /lpf U Epithel Cells (Auto) (0-5) /lpf Urine Bacteria (Auto) (Negative) Urine Osmolality (500-800) mOsm/kg Ur Random Creatinine mg/dl Ur Random Sodium Ur Random Potassium mmol/L Ur Random Chloride mmol/L Ur Random Uric Acid mg/dl Fluid Neutrophils % % Fluid Lymphocytes % % Fluid Eosinophils % % Fluid Basophils % % Fluid Meso/Macro/Thayer % % Fluid Glucose Peritoneal Color Peritoneal Appearance Peritoneal WBC (0-300) /ul Peritoneal RBC /uL Peritoneal Tot Protein g/dl Peritoneal Albumin g/dl Peritoneal Glucose mg/dl Random Vancomycin mcg/ml Urine Opiates Screen (Neg) Ur Methadone, Qual (Neg) Urine Barbiturates (Neg) Ur Phencyclidine (PCP) (Neg) U Amphetamin/Meth Scrn (Neg) MDMA (Ecstasy) Screen (Neg) U Benzodiazepines Scrn (Neg) Ur Cocaine Metabolite (Neg) U Marijuana (THC) Screen (Neg) U Marijuana THC Carboxy Pending Drug Screen Comment Pending Blood Type Antibody Screen Crossmatch 11/14/19 11/14/19 11/14/19 Range/Units 10:15 10:15 10:15 WBC (4.8-10.8) K/uL RBC (4.2-5.4) M/uL Hgb (12.0-16.0) g/dL Hct (37-47) % MCV (80-100) fL MCH (25-34) pg MCHC (32-36) g/dL RDW Std Deviation (36.4-46.3) fL RDW Coeff of Ally (11.5-14.5) % Plt Count (130-400) K/uL MPV (7.4-10.4) fL Immature Gran % (Auto) % Neut % (Auto) % Lymph % (Auto) % Thayer % (Auto) % Eos % (Auto) % Baso % (Auto) % Immature Gran # (Auto) (0.00-0.02) K/uL Neut # (Auto) (1.4-6.5) K/uL Lymph # (Auto) (1.2-3.4) K/uL Thayer # (Auto) (0.11-0.59) K/uL Eos # (Auto) (0-0.5) K/uL Baso # (Auto) (0-0.2) K/uL Absolute Nucleated RBC Nucleated RBC % (auto) Neutrophils % (Manual) Band Neutrophils % Lymphocytes % (Manual) Prolymphocyte % Reactive Lymphs % (Man) Monocytes % (Manual) Eosinophils % (Manual) Basophils % (Manual) Metamyelocytes % (Man) Myelocytes % (Man) Promyelocytes % (Man) Blast Cells % (Manual) Plasma Cell % (Manual) Other Cells % Nucleated RBC % Neutrophils # (Manual) Band Neutrophils # Total Absolute Neuts Lymphocytes # (Manual) Prolymphocyte # Reactive Lymphs # Total Abs Lymphocytes Monocytes # (Manual) Eosinophils # (Manual) Basophils # (Manual) Metamyelocytes # (Man) Myelocytes # (Manual) Promyelocytes # (Man) Blast Cells # (Man) Plasma Cell # (Manual) Other Cells # Nucleated RBCs # (Man) Hypersegmented Neuts Hyposegmented Neuts Hypogranular Neuts Large Granular Lymphs # Lrg Granular Lymphs Hairy Cells Smudge Cells Toxic Granulation Toxic Vacuolation Dohle Bodies Christine Rods Platelet Estimate Hypogranular Platelets Clumped Platelets Giant Platelets Platelet Satelliting RBC Morphology Polychromasia Hypochromasia Poikilocytosis Basophilic Stippling Anisocytosis Microcytosis Macrocytosis Spherocytes Pappenheimer Bodies Sickle Cells Target Cells Tear Drop Cells Ovalocytes Stomatocytes Garza-Bridgman Bodies Echinocytes Acanthocytes (Spur) Rouleaux RBC Agglutinates Schistocytes RBC Morph Comment ESR (0-21) mm/hr Sezary Cell PT (9.0-12.0) Seconds INR (0.9-1.1) APTT (21.0-31.0) Seconds PTT Ratio Sample Site POC pH (7.35-7.45) POC pCO2 (35-46) mmHg POC pO2 (80-95) mmHg POC HCO3 (19-24) rosario/L POC Total CO2 (24-31) mmol/L POC Base Excess (-9-1.8) rosario/L POC ABG O2 Sat (90-95) % Moncho Test O2 Delivery Device POC O2 Rate Minute Ventilation POC FiO2 % Tidal Volume PEEP Sodium (136-145) mmol/L Potassium (3.5-5.1) mmol/L Chloride (98-107) mmol/L Carbon Dioxide (21-32) mmol/L Anion Gap (3-11) BUN (7-18) mg/dl Creatinine (0.6-1.2) mg/dl Est Cr Clr Drug Dosing ml/min Est GFR ( Amer) Est GFR (Non-Af Amer) BUN/Creatinine Ratio (10-20) Glucose (70-99) mg/dl POC Glucose (70-99) mg/dl Osmolality (280-300) mOsm/kg Lactate (0.4-2.0) mmol/L Calcium (8.5-10.1) mg/dl Phosphorus (2.5-4.9) mg/dl Magnesium (1.8-2.4) mg/dl Total Bilirubin (0.2-1) mg/dl Direct Bilirubin (0-0.2) mg/dl AST (15-37) U/L ALT (12-78) U/L Alkaline Phosphatase (45-117) U/L Ammonia (11-32) umol/L Troponin I (0-0.045) ng/ml C-Reactive Protein (0-0.29) mg/dl Total Protein (6.4-8.2) gm/dl Albumin (3.4-5.0) gm/dl Globulin (2.5-4.0) gm/dl Albumin/Globulin Ratio (0.9-2) Procalcitonin (0-0.5) ng/ml Random Cortisol mcg/dl Urine Color Urine Appearance (Clear) Urine pH (4.5-7.5) Ur Specific [place] (1.000-1.030) Urine Protein (Negative) Urine Glucose (UA) (Negative) Urine Ketones (Negative) Urine Blood (Negative) Urine Nitrite (Negative) Urine Bilirubin (Negative) Urine Urobilinogen (Negative) Ur Leukocyte Esterase (Negative) Urine WBC (Auto) (0-5) /hpf Urine RBC (Auto) (0-4) /hpf U Hyaline Cast (Auto) (0-5) /lpf U Epithel Cells (Auto) (0-5) /lpf Urine Bacteria (Auto) (Negative) Urine Osmolality (500-800) mOsm/kg Ur Random Creatinine 226.0 mg/dl Ur Random Sodium 6 Cancelled Ur Random Potassium 18.1 mmol/L Ur Random Chloride < 10 mmol/L Ur Random Uric Acid 13.8 mg/dl Fluid Neutrophils % % Fluid Lymphocytes % % Fluid Eosinophils % % Fluid Basophils % % Fluid Meso/Macro/Thayer % % Fluid Glucose Peritoneal Color Peritoneal Appearance Peritoneal WBC (0-300) /ul Peritoneal RBC /uL Peritoneal Tot Protein g/dl Peritoneal Albumin g/dl Peritoneal Glucose mg/dl Random Vancomycin mcg/ml Urine Opiates Screen Neg (Neg) Ur Methadone, Qual Neg (Neg) Urine Barbiturates Neg (Neg) Ur Phencyclidine (PCP) Neg (Neg) U Amphetamin/Meth Scrn Neg (Neg) MDMA (Ecstasy) Screen Neg (Neg) U Benzodiazepines Scrn Neg (Neg) Ur Cocaine Metabolite Neg (Neg) U Marijuana (THC) Screen Pos H (Neg) U Marijuana THC Carboxy Drug Screen Comment Blood Type Antibody Screen Crossmatch 11/14/19 11/14/19 11/14/19 Range/Units 10:15 10:15 10:08 WBC (4.8-10.8) K/uL RBC (4.2-5.4) M/uL Hgb (12.0-16.0) g/dL Hct (37-47) % MCV (80-100) fL MCH (25-34) pg MCHC (32-36) g/dL RDW Std Deviation (36.4-46.3) fL RDW Coeff of Ally (11.5-14.5) % Plt Count (130-400) K/uL MPV (7.4-10.4) fL Immature Gran % (Auto) % Neut % (Auto) % Lymph % (Auto) % Thayer % (Auto) % Eos % (Auto) % Baso % (Auto) % Immature Gran # (Auto) (0.00-0.02) K/uL Neut # (Auto) (1.4-6.5) K/uL Lymph # (Auto) (1.2-3.4) K/uL Thayer # (Auto) (0.11-0.59) K/uL Eos # (Auto) (0-0.5) K/uL Baso # (Auto) (0-0.2) K/uL Absolute Nucleated RBC Nucleated RBC % (auto) Neutrophils % (Manual) Band Neutrophils % Lymphocytes % (Manual) Prolymphocyte % Reactive Lymphs % (Man) Monocytes % (Manual) Eosinophils % (Manual) Basophils % (Manual) Metamyelocytes % (Man) Myelocytes % (Man) Promyelocytes % (Man) Blast Cells % (Manual) Plasma Cell % (Manual) Other Cells % Nucleated RBC % Neutrophils # (Manual) Band Neutrophils # Total Absolute Neuts Lymphocytes # (Manual) Prolymphocyte # Reactive Lymphs # Total Abs Lymphocytes Monocytes # (Manual) Eosinophils # (Manual) Basophils # (Manual) Metamyelocytes # (Man) Myelocytes # (Manual) Promyelocytes # (Man) Blast Cells # (Man) Plasma Cell # (Manual) Other Cells # Nucleated RBCs # (Man) Hypersegmented Neuts Hyposegmented Neuts Hypogranular Neuts Large Granular Lymphs # Lrg Granular Lymphs Hairy Cells Smudge Cells Toxic Granulation Toxic Vacuolation Dohle Bodies Christine Rods Platelet Estimate Hypogranular Platelets Clumped Platelets Giant Platelets Platelet Satelliting RBC Morphology Polychromasia Hypochromasia Poikilocytosis Basophilic Stippling Anisocytosis Microcytosis Macrocytosis Spherocytes Pappenheimer Bodies Sickle Cells Target Cells Tear Drop Cells Ovalocytes Stomatocytes Garza-Bridgman Bodies Echinocytes Acanthocytes (Spur) Rouleaux RBC Agglutinates Schistocytes RBC Morph Comment ESR (0-21) mm/hr Sezary Cell PT (9.0-12.0) Seconds INR (0.9-1.1) APTT (21.0-31.0) Seconds PTT Ratio Sample Site R Radial POC pH 7.50 H (7.35-7.45) POC pCO2 24 L (35-46) mmHg POC pO2 108 H (80-95) mmHg POC HCO3 19 (19-24) rosario/L POC Total CO2 19 L (24-31) mmol/L POC Base Excess -5.0 (-9-1.8) rosario/L POC ABG O2 Sat 99.0 H (90-95) % Moncho Test Pass O2 Delivery Device Room Air POC O2 Rate Minute Ventilation POC FiO2 % Tidal Volume PEEP Sodium (136-145) mmol/L Potassium (3.5-5.1) mmol/L Chloride (98-107) mmol/L Carbon Dioxide (21-32) mmol/L Anion Gap (3-11) BUN (7-18) mg/dl Creatinine (0.6-1.2) mg/dl Est Cr Clr Drug Dosing ml/min Est GFR ( Amer) Est GFR (Non-Af Amer) BUN/Creatinine Ratio (10-20) Glucose (70-99) mg/dl POC Glucose (70-99) mg/dl Osmolality (280-300) mOsm/kg Lactate (0.4-2.0) mmol/L Calcium (8.5-10.1) mg/dl Phosphorus (2.5-4.9) mg/dl Magnesium (1.8-2.4) mg/dl Total Bilirubin (0.2-1) mg/dl Direct Bilirubin (0-0.2) mg/dl AST (15-37) U/L ALT (12-78) U/L Alkaline Phosphatase (45-117) U/L Ammonia (11-32) umol/L Troponin I (0-0.045) ng/ml C-Reactive Protein (0-0.29) mg/dl Total Protein (6.4-8.2) gm/dl Albumin (3.4-5.0) gm/dl Globulin (2.5-4.0) gm/dl Albumin/Globulin Ratio (0.9-2) Procalcitonin (0-0.5) ng/ml Random Cortisol mcg/dl Urine Color [place] Urine Appearance Cloudy A (Clear) Urine pH 5.0 (4.5-7.5) Ur Specific [place] 1.017 (1.000-1.030) Urine Protein Negative (Negative) Urine Glucose (UA) Negative (Negative) Urine Ketones Trace H (Negative) Urine Blood Negative (Negative) Urine Nitrite Positive A (Negative) Urine Bilirubin Negative (Negative) Urine Urobilinogen Negative (Negative) Ur Leukocyte Esterase 1+ H (Negative) Urine WBC (Auto) 1-5 (0-5) /hpf Urine RBC (Auto) 0-4 (0-4) /hpf U Hyaline Cast (Auto) 1-5 (0-5) /lpf U Epithel Cells (Auto) >30 H (0-5) /lpf Urine Bacteria (Auto) 1+ H (Negative) Urine Osmolality 330 L (500-800) mOsm/kg Ur Random Creatinine mg/dl Ur Random Sodium Ur Random Potassium mmol/L Ur Random Chloride mmol/L Ur Random Uric Acid mg/dl Fluid Neutrophils % % Fluid Lymphocytes % % Fluid Eosinophils % % Fluid Basophils % % Fluid Meso/Macro/Thayer % % Fluid Glucose Peritoneal Color Peritoneal Appearance Peritoneal WBC (0-300) /ul Peritoneal RBC /uL Peritoneal Tot Protein g/dl Peritoneal Albumin g/dl Peritoneal Glucose mg/dl Random Vancomycin mcg/ml Urine Opiates Screen (Neg) Ur Methadone, Qual (Neg) Urine Barbiturates (Neg) Ur Phencyclidine (PCP) (Neg) U Amphetamin/Meth Scrn (Neg) MDMA (Ecstasy) Screen (Neg) U Benzodiazepines Scrn (Neg) Ur Cocaine Metabolite (Neg) U Marijuana (THC) Screen (Neg) U Marijuana THC Carboxy Drug Screen Comment Blood Type Antibody Screen Crossmatch 11/14/19 11/14/19 11/14/19 Range/Units 09:25 09:25 09:25 WBC (4.8-10.8) K/uL RBC (4.2-5.4) M/uL Hgb (12.0-16.0) g/dL Hct (37-47) % MCV (80-100) fL MCH (25-34) pg MCHC (32-36) g/dL RDW Std Deviation (36.4-46.3) fL RDW Coeff of Ally (11.5-14.5) % Plt Count (130-400) K/uL MPV (7.4-10.4) fL Immature Gran % (Auto) % Neut % (Auto) % Lymph % (Auto) % Thayer % (Auto) % Eos % (Auto) % Baso % (Auto) % Immature Gran # (Auto) (0.00-0.02) K/uL Neut # (Auto) (1.4-6.5) K/uL Lymph # (Auto) (1.2-3.4) K/uL Thayer # (Auto) (0.11-0.59) K/uL Eos # (Auto) (0-0.5) K/uL Baso # (Auto) (0-0.2) K/uL Absolute Nucleated RBC Nucleated RBC % (auto) Neutrophils % (Manual) Band Neutrophils % Lymphocytes % (Manual) Prolymphocyte % Reactive Lymphs % (Man) Monocytes % (Manual) Eosinophils % (Manual) Basophils % (Manual) Metamyelocytes % (Man) Myelocytes % (Man) Promyelocytes % (Man) Blast Cells % (Manual) Plasma Cell % (Manual) Other Cells % Nucleated RBC % Neutrophils # (Manual) Band Neutrophils # Total Absolute Neuts Lymphocytes # (Manual) Prolymphocyte # Reactive Lymphs # Total Abs Lymphocytes Monocytes # (Manual) Eosinophils # (Manual) Basophils # (Manual) Metamyelocytes # (Man) Myelocytes # (Manual) Promyelocytes # (Man) Blast Cells # (Man) Plasma Cell # (Manual) Other Cells # Nucleated RBCs # (Man) Hypersegmented Neuts Hyposegmented Neuts Hypogranular Neuts Large Granular Lymphs # Lrg Granular Lymphs Hairy Cells Smudge Cells Toxic Granulation Toxic Vacuolation Dohle Bodies Christine Rods Platelet Estimate Hypogranular Platelets Clumped Platelets Giant Platelets Platelet Satelliting RBC Morphology Polychromasia Hypochromasia Poikilocytosis Basophilic Stippling Anisocytosis Microcytosis Macrocytosis Spherocytes Pappenheimer Bodies Sickle Cells Target Cells Tear Drop Cells Ovalocytes Stomatocytes Garza-Bridgman Bodies Echinocytes Acanthocytes (Spur) Rouleaux RBC Agglutinates Schistocytes RBC Morph Comment ESR 29 H (0-21) mm/hr Sezary Cell PT 35.7 H (9.0-12.0) Seconds INR 3.6 H (0.9-1.1) APTT (21.0-31.0) Seconds PTT Ratio Sample Site POC pH (7.35-7.45) POC pCO2 (35-46) mmHg POC pO2 (80-95) mmHg POC HCO3 (19-24) rosario/L POC Total CO2 (24-31) mmol/L POC Base Excess (-9-1.8) rosario/L POC ABG O2 Sat (90-95) % Moncho Test O2 Delivery Device POC O2 Rate Minute Ventilation POC FiO2 % Tidal Volume PEEP Sodium (136-145) mmol/L Potassium (3.5-5.1) mmol/L Chloride (98-107) mmol/L Carbon Dioxide (21-32) mmol/L Anion Gap (3-11) BUN (7-18) mg/dl Creatinine (0.6-1.2) mg/dl Est Cr Clr Drug Dosing ml/min Est GFR ( Amer) Est GFR (Non-Af Amer) BUN/Creatinine Ratio (10-20) Glucose (70-99) mg/dl POC Glucose (70-99) mg/dl Osmolality 302 H (280-300) mOsm/kg Lactate (0.4-2.0) mmol/L Calcium (8.5-10.1) mg/dl Phosphorus (2.5-4.9) mg/dl Magnesium (1.8-2.4) mg/dl Total Bilirubin (0.2-1) mg/dl Direct Bilirubin (0-0.2) mg/dl AST (15-37) U/L ALT (12-78) U/L Alkaline Phosphatase (45-117) U/L Ammonia (11-32) umol/L Troponin I (0-0.045) ng/ml C-Reactive Protein (0-0.29) mg/dl Total Protein (6.4-8.2) gm/dl Albumin (3.4-5.0) gm/dl Globulin (2.5-4.0) gm/dl Albumin/Globulin Ratio (0.9-2) Procalcitonin (0-0.5) ng/ml Random Cortisol mcg/dl Urine Color Urine Appearance (Clear) Urine pH (4.5-7.5) Ur Specific [place] (1.000-1.030) Urine Protein (Negative) Urine Glucose (UA) (Negative) Urine Ketones (Negative) Urine Blood (Negative) Urine Nitrite (Negative) Urine Bilirubin (Negative) Urine Urobilinogen (Negative) Ur Leukocyte Esterase (Negative) Urine WBC (Auto) (0-5) /hpf Urine RBC (Auto) (0-4) /hpf U Hyaline Cast (Auto) (0-5) /lpf U Epithel Cells (Auto) (0-5) /lpf Urine Bacteria (Auto) (Negative) Urine Osmolality (500-800) mOsm/kg Ur Random Creatinine mg/dl Ur Random Sodium Ur Random Potassium mmol/L Ur Random Chloride mmol/L Ur Random Uric Acid mg/dl Fluid Neutrophils % % Fluid Lymphocytes % % Fluid Eosinophils % % Fluid Basophils % % Fluid Meso/Macro/Thayer % % Fluid Glucose Peritoneal Color Peritoneal Appearance Peritoneal WBC (0-300) /ul Peritoneal RBC /uL Peritoneal Tot Protein g/dl Peritoneal Albumin g/dl Peritoneal Glucose mg/dl Random Vancomycin mcg/ml Urine Opiates Screen (Neg) Ur Methadone, Qual (Neg) Urine Barbiturates (Neg) Ur Phencyclidine (PCP) (Neg) U Amphetamin/Meth Scrn (Neg) MDMA (Ecstasy) Screen (Neg) U Benzodiazepines Scrn (Neg) Ur Cocaine Metabolite (Neg) U Marijuana (THC) Screen (Neg) U Marijuana THC Carboxy Drug Screen Comment Blood Type Antibody Screen Crossmatch 11/14/19 11/14/19 11/14/19 Range/Units 09:25 09:25 09:25 WBC (4.8-10.8) K/uL RBC (4.2-5.4) M/uL Hgb 5.5 L* (12.0-16.0) g/dL Hct 15.5 L* (37-47) % MCV (80-100) fL MCH (25-34) pg MCHC (32-36) g/dL RDW Std Deviation (36.4-46.3) fL RDW Coeff of Ally (11.5-14.5) % Plt Count (130-400) K/uL MPV (7.4-10.4) fL Immature Gran % (Auto) % Neut % (Auto) % Lymph % (Auto) % Thayer % (Auto) % Eos % (Auto) % Baso % (Auto) % Immature Gran # (Auto) (0.00-0.02) K/uL Neut # (Auto) (1.4-6.5) K/uL Lymph # (Auto) (1.2-3.4) K/uL [place] # (Auto) (0.11-0.59) K/uL Eos # (Auto) (0-0.5) K/uL Baso # (Auto) (0-0.2) K/uL Absolute Nucleated RBC Nucleated RBC % (auto) Neutrophils % (Manual) Band Neutrophils % Lymphocytes % (Manual) Prolymphocyte % Reactive Lymphs % (Man) Monocytes % (Manual) Eosinophils % (Manual) Basophils % (Manual) Metamyelocytes % (Man) Myelocytes % (Man) Promyelocytes % (Man) Blast Cells % (Manual) Plasma Cell % (Manual) Other Cells % Nucleated RBC % Neutrophils # (Manual) Band Neutrophils # Total Absolute Neuts Lymphocytes # (Manual) Prolymphocyte # Reactive Lymphs # Total Abs Lymphocytes Monocytes # (Manual) Eosinophils # (Manual) Basophils # (Manual) Metamyelocytes # (Man) Myelocytes # (Manual) Promyelocytes # (Man) Blast Cells # (Man) Plasma Cell # (Manual) Other Cells # Nucleated RBCs # (Man) Hypersegmented Neuts Hyposegmented Neuts Hypogranular Neuts Large Granular Lymphs # Lrg Granular Lymphs Hairy Cells Smudge Cells Toxic Granulation Toxic Vacuolation Dohle Bodies Christine Rods Platelet Estimate Hypogranular Platelets Clumped Platelets Giant Platelets Platelet Satelliting RBC Morphology Polychromasia Hypochromasia Poikilocytosis Basophilic Stippling Anisocytosis Microcytosis Macrocytosis Spherocytes Pappenheimer Bodies Sickle Cells Target Cells Tear Drop Cells Ovalocytes Stomatocytes Garza-Bridgman Bodies Echinocytes Acanthocytes (Spur) Rouleaux RBC Agglutinates Schistocytes RBC Morph Comment ESR (0-21) mm/hr Sezary Cell PT (9.0-12.0) Seconds INR (0.9-1.1) APTT (21.0-31.0) Seconds PTT Ratio Sample Site POC pH (7.35-7.45) POC pCO2 (35-46) mmHg POC pO2 (80-95) mmHg POC HCO3 (19-24) rosario/L POC Total CO2 (24-31) mmol/L POC Base Excess (-9-1.8) rosario/L POC ABG O2 Sat (90-95) % Moncho Test O2 Delivery Device POC O2 Rate Minute Ventilation POC FiO2 % Tidal Volume PEEP Sodium (136-145) mmol/L Potassium (3.5-5.1) mmol/L Chloride (98-107) mmol/L Carbon Dioxide (21-32) mmol/L Anion Gap (3-11) BUN (7-18) mg/dl Creatinine (0.6-1.2) mg/dl Est Cr Clr Drug Dosing ml/min Est GFR ( Amer) Est GFR (Non-Af Amer) BUN/Creatinine Ratio (10-20) Glucose (70-99) mg/dl POC Glucose (70-99) mg/dl Osmolality (280-300) mOsm/kg Lactate 4.1 H* (0.4-2.0) mmol/L Calcium (8.5-10.1) mg/dl Phosphorus (2.5-4.9) mg/dl Magnesium (1.8-2.4) mg/dl Total Bilirubin (0.2-1) mg/dl Direct Bilirubin (0-0.2) mg/dl AST (15-37) U/L ALT (12-78) U/L Alkaline Phosphatase (45-117) U/L Ammonia (11-32) umol/L Troponin I 0.141 H* (0-0.045) ng/ml C-Reactive Protein 5.36 H (0-0.29) mg/dl Total Protein (6.4-8.2) gm/dl Albumin (3.4-5.0) gm/dl Globulin (2.5-4.0) gm/dl Albumin/Globulin Ratio (0.9-2) Procalcitonin (0-0.5) ng/ml Random Cortisol mcg/dl Urine Color Urine Appearance (Clear) Urine pH (4.5-7.5) Ur Specific [place] (1.000-1.030) Urine Protein (Negative) Urine Glucose (UA) (Negative) Urine Ketones (Negative) Urine Blood (Negative) Urine Nitrite (Negative) Urine Bilirubin (Negative) Urine Urobilinogen (Negative) Ur Leukocyte Esterase (Negative) Urine WBC (Auto) (0-5) /hpf Urine RBC (Auto) (0-4) /hpf U Hyaline Cast (Auto) (0-5) /lpf U Epithel Cells (Auto) (0-5) /lpf Urine Bacteria (Auto) (Negative) Urine Osmolality (500-800) mOsm/kg Ur Random Creatinine mg/dl Ur Random Sodium Ur Random Potassium mmol/L Ur Random Chloride mmol/L Ur Random Uric Acid mg/dl Fluid Neutrophils % % Fluid Lymphocytes % % Fluid Eosinophils % % Fluid Basophils % % Fluid Meso/Macro/Thayer % % Fluid Glucose Peritoneal Color Peritoneal Appearance Peritoneal WBC (0-300) /ul Peritoneal RBC /uL Peritoneal Tot Protein g/dl Peritoneal Albumin g/dl Peritoneal Glucose mg/dl Random Vancomycin mcg/ml Urine Opiates Screen (Neg) Ur Methadone, Qual (Neg) Urine Barbiturates (Neg) Ur Phencyclidine (PCP) (Neg) U Amphetamin/Meth Scrn (Neg) MDMA (Ecstasy) Screen (Neg) U Benzodiazepines Scrn (Neg) Ur Cocaine Metabolite (Neg) U Marijuana (THC) Screen (Neg) U Marijuana THC Carboxy Drug Screen Comment Blood Type Antibody Screen Crossmatch 11/14/19 11/14/19 Range/Units 04:19 03:25 WBC (4.8-10.8) K/uL RBC (4.2-5.4) M/uL Hgb (12.0-16.0) g/dL Hct (37-47) % MCV (80-100) fL MCH (25-34) pg MCHC (32-36) g/dL RDW Std Deviation (36.4-46.3) fL RDW Coeff of Ally (11.5-14.5) % Plt Count (130-400) K/uL MPV (7.4-10.4) fL Immature Gran % (Auto) % Neut % (Auto) % Lymph % (Auto) % [place] % (Auto) % Eos % (Auto) % Baso % (Auto) % Immature Gran # (Auto) (0.00-0.02) K/uL Neut # (Auto) (1.4-6.5) K/uL Lymph # (Auto) (1.2-3.4) K/uL [place] # (Auto) (0.11-0.59) K/uL Eos # (Auto) (0-0.5) K/uL Baso # (Auto) (0-0.2) K/uL Absolute Nucleated RBC Nucleated RBC % (auto) Neutrophils % (Manual) Band Neutrophils % Lymphocytes % (Manual) Prolymphocyte % Reactive Lymphs % (Man) Monocytes % (Manual) Eosinophils % (Manual) Basophils % (Manual) Metamyelocytes % (Man) Myelocytes % (Man) Promyelocytes % (Man) Blast Cells % (Manual) Plasma Cell % (Manual) Other Cells % Nucleated RBC % Neutrophils # (Manual) Band Neutrophils # Total Absolute Neuts Lymphocytes # (Manual) Prolymphocyte # Reactive Lymphs # Total Abs Lymphocytes Monocytes # (Manual) Eosinophils # (Manual) Basophils # (Manual) Metamyelocytes # (Man) Myelocytes # (Manual) Promyelocytes # (Man) Blast Cells # (Man) Plasma Cell # (Manual) Other Cells # Nucleated RBCs # (Man) Hypersegmented Neuts Hyposegmented Neuts Hypogranular Neuts Large Granular Lymphs # Lrg Granular Lymphs Hairy Cells Smudge Cells Toxic Granulation Toxic Vacuolation Dohle Bodies Christine Rods Platelet Estimate Hypogranular Platelets Clumped Platelets Giant Platelets Platelet Satelliting RBC Morphology Polychromasia Hypochromasia Poikilocytosis Basophilic Stippling Anisocytosis Microcytosis Macrocytosis Spherocytes Pappenheimer Bodies Sickle Cells Target Cells Tear Drop Cells Ovalocytes Stomatocytes Garza-Bridgman Bodies Echinocytes Acanthocytes (Spur) Rouleaux RBC Agglutinates Schistocytes RBC Morph Comment ESR (0-21) mm/hr Sezary Cell PT (9.0-12.0) Seconds INR (0.9-1.1) APTT (21.0-31.0) Seconds PTT Ratio Sample Site POC pH (7.35-7.45) POC pCO2 (35-46) mmHg POC pO2 (80-95) mmHg POC HCO3 (19-24) rosario/L POC Total CO2 (24-31) mmol/L POC Base Excess (-9-1.8) rosario/L POC ABG O2 Sat (90-95) % Moncho Test O2 Delivery Device POC O2 Rate Minute Ventilation POC FiO2 % Tidal Volume PEEP Sodium (136-145) mmol/L Potassium (3.5-5.1) mmol/L Chloride (98-107) mmol/L Carbon Dioxide (21-32) mmol/L Anion Gap (3-11) BUN (7-18) mg/dl Creatinine (0.6-1.2) mg/dl Est Cr Clr Drug Dosing ml/min Est GFR ( Amer) Est GFR (Non-Af Amer) BUN/Creatinine Ratio (10-20) Glucose (70-99) mg/dl POC Glucose (70-99) mg/dl Osmolality (280-300) mOsm/kg Lactate (0.4-2.0) mmol/L Calcium (8.5-10.1) mg/dl Phosphorus (2.5-4.9) mg/dl Magnesium (1.8-2.4) mg/dl Total Bilirubin (0.2-1) mg/dl Direct Bilirubin (0-0.2) mg/dl AST (15-37) U/L ALT (12-78) U/L Alkaline Phosphatase (45-117) U/L Ammonia (11-32) umol/L Troponin I (0-0.045) ng/ml C-Reactive Protein (0-0.29) mg/dl Total Protein (6.4-8.2) gm/dl Albumin (3.4-5.0) gm/dl Globulin (2.5-4.0) gm/dl Albumin/Globulin Ratio (0.9-2) Procalcitonin 1.10 H (0-0.5) ng/ml Random Cortisol mcg/dl Urine Color Urine Appearance (Clear) Urine pH (4.5-7.5) Ur Specific [place] (1.000-1.030) Urine Protein (Negative) Urine Glucose (UA) (Negative) Urine Ketones (Negative) Urine Blood (Negative) Urine Nitrite (Negative) Urine Bilirubin (Negative) Urine Urobilinogen (Negative) Ur Leukocyte Esterase (Negative) Urine WBC (Auto) (0-5) /hpf Urine RBC (Auto) (0-4) /hpf U Hyaline Cast (Auto) (0-5) /lpf U Epithel Cells (Auto) (0-5) /lpf Urine Bacteria (Auto) (Negative) Urine Osmolality (500-800) mOsm/kg Ur Random Creatinine mg/dl Ur Random Sodium Ur Random Potassium mmol/L Ur Random Chloride mmol/L Ur Random Uric Acid mg/dl Fluid Neutrophils % % Fluid Lymphocytes % % Fluid Eosinophils % % Fluid Basophils % % Fluid Meso/Macro/Thayer % % Fluid Glucose Peritoneal Color Peritoneal Appearance Peritoneal WBC (0-300) /ul Peritoneal RBC /uL Peritoneal Tot Protein g/dl Peritoneal Albumin g/dl Peritoneal Glucose mg/dl Random Vancomycin mcg/ml Urine Opiates Screen (Neg) Ur Methadone, Qual (Neg) Urine Barbiturates (Neg) Ur Phencyclidine (PCP) (Neg) U Amphetamin/Meth Scrn (Neg) MDMA (Ecstasy) Screen (Neg) U Benzodiazepines Scrn (Neg) Ur Cocaine Metabolite (Neg) U Marijuana (THC) Screen (Neg) U Marijuana THC Carboxy Drug Screen Comment Blood Type O Positive Antibody Screen NEGATIVE Crossmatch See Detail Diagnostic Findings I reviewed the EGD and colonoscopy reports. No acute disease process, endotracheal tube present 2 cm above anya I reviewed the abdomen and pelvis CT report: Nonspecific bowel wall thickening I reviewed the CT head report I reviewed the gallbladder ultrasound, no clear acute cholecystitis, correlation with nuclear medicine hepatobiliary scan should be considered if clinical concern for acute cholecystitis. 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 This is a life/limb threatening event. This includes time spent evaluating patient, direct bedside care, chart review, placing orders, interpretation of diagnostic studies, discussion with consultants, patient, and/or family members regarding treatment decisions, as well as other required patient management activities. This time is exclusive of all separately billable procedures, and teaching time and separate from and in addition to any other critical care service time. (1) GI hemorrhage GI bleed type/associated pathology: unspecified gastrointestinal hemorrhage type Qualified Code(s): K92.2 - Gastrointestinal hemorrhage, unspecified
--- NOTE | 2019-11-15 09:24 | Gastroenterology Progress Note ---
Date of Service November 15, 2019 Assessment & Plan Admission and Anticipated Discharge Date Admission Date: November 14, 2019 Supervising Physician Co-Signing Physician Notes 54 yo fm admitted with rectal bleeding. Significant pmhx including etoh cirrhosis, pvt on coumadin, d/w ascites, actively drinking-not a transplant candidate or tips candidate. Urgent egd/colonoscopy done on 11/14/19 with findings of g2ev without active bleeding, empricially banded, and colonsocopy with findings of suspected rectal varix unable to be banded despite attempts, treated with clip + ethanolamine injection. She remains on pressors, empiric abx. No clear infectious source. Her MELD is 29 per labs today driven by cr, bili, and inr (this is reversed inr given she had been on coumadin). Her prognosis is poor given her current state of high meld, suspected infection and pressor dependence. Consideration of palliative care consult for disucssion of goals of care. Continue PPI drip/octreteotide drip for at least 48 hours. Would hold on ng/og tube or rectal enemas given recent GI intervention of banding from above and below and injection and clipping from below. Await infectious source workup- on empiric abx (ertapenem). Subjective Pt intubated and sedated. No family at bedside. Patient's nurse at bedside - no reported bleeding since bidirectional endoscopy done yesterday. She is on pressors, ertapenem. Review of Systems Review of Systems: All systems reviewed & are unremarkable except as noted in HPI & below Physical Exam Physical Exam: fm, intubated, sedated Eyes: PERRL, conjunctivae normal, anicteric sclerae Respiratory: Crackles at righ tlung base, clear to auscultation in left lung base Cardiovascular: RRR, no murmur, no edema Gastrointestinal (Abdomen): normal bowel sounds, soft, nontender, no hepatos plenomegaly Skin: no rashes, warm and dry Results & Data ([facility]) Vital Signs (Past 12 Hours) Vital Signs Temp Pulse Resp BP Pulse Ox 11/15/19 08:09 95 H 105/63 100 11/15/19 08:00 37.6 C H 95 H 97 11/15/19 07:50 37.6 C H 95 H 23 121/52 L 100 05/18/20 07:28 97 H 83/58 L 99 05/18/20 07:13 94 H 99/61 L 99 05/18/20 07:00 97 H 98 05/18/20 06:15 95 H 100 051820 06:13 96 H 99/62 L 100 051820 06:00 94 H 100 051820 05:58 94 H 97/60 L 100 0518/20 05:45 38.1 C H 95 H 100 0520 05:43 95 H 93/59 L 100 0520 05:30 38.1 C H 95 H 100 05/20 05:28 38.1 C H 95 H 96/58 L 100 05/1820 05:15 38.1 C H 96 H 100 0520 05:13 38.1 C H 96 H 93/58 L 100 0520 05:12 95 H 25 H 100 0518/20 05:00 97 H 100 0520 04:58 97 H 90/57 L 100 051820 04:50 99 H 100 051820 04:46 99 H 97 0518/20 04:44 100 H 87/54 L 98 0518/20 04:41 38.8 C H 103 H 31 H 86/55 L 97 051820 04:30 99 H 100 051820 04:28 97 H 86/55 L 100 05/18/20 04:15 99 H 100 05/18/20 04:13 99 H 87/53 L 100 05/18/20 04:00 102 H 100 0518/20 03:58 100 H 91/54 L 100 05/18/20 03:45 100 H 100 05/18/20 03:43 99 H 85/52 L 100 05/18/20 03:30 104 H 94 05/18/20 03:28 101 H 88/53 L 100 05/18/20 03:15 101 H 100 05/18/20 03:13 101 H 89/55 L 100 05/18/20 03:00 102 H 100 05/18/20 02:58 101 H 77/51 L 100 05/18/20 02:45 101 H 100 05/18/20 02:43 101 H 80/50 L 100 05/18/20 02:30 38.1 C H 102 H 100 11/15/19 02:28 103 H 76/51 L 100 11/15/19 02:15 105 H 100 11/15/19 02:13 103 H 76/51 L 100 11/15/19 02:00 108 H 100 11/15/19 01:58 108 H 82/48 L 100 11/15/19 01:51 113 H 28 H 100 11/15/19 01:45 115 H 100 11/15/19 01:43 109 H 82/51 L 100 11/15/19 01:30 111 H 100 11/15/19 01:28 116 H 87/52 L 100 11/15/19 01:15 112 H 80 L 11/15/19 01:13 115 H 80/51 L 100 11/15/19 01:00 114 H 100 11/15/19 00:58 109 H 86/53 L 100 11/15/19 00:45 118 H 97 11/15/19 00:43 117 H 74/58 L 100 11/15/19 00:34 107 H 78/50 L 100 11/15/19 00:30 114 H 100 11/15/19 00:28 116 H 87/56 L 100 11/15/19 00:15 118 H 95 11/15/19 00:13 118 H 76/44 L 100 11/15/19 00:11 119 H 77/49 L 100 11/15/19 00:01 116 H 100 11/15/19 00:00 121 H 73/50 L 100 11/14/19 23:51 127 H 73/50 L 100 11/14/19 23:46 125 H 77/51 L 99 11/14/19 23:45 127 H 100 11/14/19 23:36 119 H 66/44 L 95 0520 23:33 121 H 76/41 L 100 11/14/19 23:30 123 H 100 11/14/19 23:24 126 H 67/24 L 100 05 23:22 129 H 100 05 23:15 127 H 100 05 23:13 132 H 89/39 L 100 11/14/19 23:06 127 H 74/38 L 100 11/14/19 23:00 133 H 100 11/14/19 22:51 136 H 93/75 L 100 11/14/19 22:45 138 H 100 11/14/19 22:40 140 H 77/57 L 100 11/14/19 22:37 139 H 100 11/14/19 22:30 140 H 100 11/14/19 22:21 142 H 98/61 L 100 11/14/19 22:15 142 H 100 11/14/19 22:10 142 H 115/50 L 100 11/14/19 22:00 137 H 28 H 110/59 L 100 11/14/19 21:49 138 H 103/56 L 96 11/14/19 21:45 130 H 71 L 11/14/19 21:41 127 H 87/52 L 86 L 11/14/19 21:37 125 H 86/49 L 94 11/14/19 21:36 125 H 68/33 L 100 11/14/19 21:34 107 H 44/25 L 100 11/14/19 21:33 127 H 44/25 L 100 11/14/19 21:30 115 H 100 11/14/19 21:29 120 H 76/29 L 100 MELD 29, driven by bili, inr, and cr
[2019-11-15 09:28] LABS: Mean Platelet Volume 10.8 fL (7.4-10.4); Platelet Count 54 K/uL (130-400)
[2019-11-15 09:36] LABS: Basophils # (auto) 0.05 K/uL (0-0.2); Basophils % (auto) 0.2 %; Dohle Bodies 2+; Echinocytes 1+; Eosinophils # (auto) 0.01 K/uL (0-0.5); Immature Granulocytes # (auto) 0.78 K/uL (0.00-0.02); Immature Granulocytes % (auto) 3.4 %; Lymphocytes # (auto) 2.22 K/uL (1.2-3.4); Lymphocytes % (auto) 9.6 %; Monocytes # (auto) 0.94 K/uL (0.11-0.59); Monocytes % (auto) 4.1 %; Neutrophils # (auto) 19.13 K/uL (1.4-6.5); Neutrophils % (auto) 82.7 %; Pappenheimer Bodies 1+
[2019-11-15] MEDS: DEXMEDETOMIDINE HCL 200 MCG in SODIUM CHLORIDE 0.9% 48 ML IV SCH ×2 (10:16→20:57)
--- NOTE | 2019-11-15 10:51 | Pharmacy Report ---
Pharmacy Abx Dose Short Note - Date of Service November 15, 2019 - Assessment & Plan Assessment * 54 year old F receiving VANCOMYCIN + ERTAPENEM for treatment of possible SBP, possible septic shock (may have been hypotensive secondary large volume paracentesis +/- sedative regimen) * Paracentesis did not show > 250 PMNs (only 136 WBC, 17% neutrophils), gram stain revealed no organisms and "few" WBC, no growth in peritoneal fluid at this time. * + Esophageal varicies s/p banding as well as rectal varicies s/p banding and injection. Question of proctitis on CT report. * BLCXs and urine cx pending (corresponding UA did not show pyuria making UTI unlikely) * CXR read as "lungs appear clear" * Procal did increase: 4.5 --> 9.0, however pt does have worsening renal fxn * Currently requiring 3 pressors (norepi, vaso, phenyephrine) but MAPs maintained > 60-65 * AG acidosis / lactic acidosis worsening (bicarb 11); art pH 7.32 with resp compensation * UOP < 0.5ml/kg/hr over last 24 hrs and reported zero UOP this AM on rounds. Plan Vancomycin * Received 2000mg loading dose x 1 yesterday AM * Random level this AM = 21.7 mcg/mL * If pt remains anuric she will likely not need redosed today * MAPs have been > 65, will monitor UOP * Will recheck random level w/ PM labs should urine output increase. Plan to redose when level closer to 15 * Goal trough level for sepsis : 15 to 20 mcg/mL Ertapenem * No prior h/o ESBL organism. Of note, pt has tolerated ceftriaxone on prior admissions despite reported pcn allergy. * eCrCl < 15cc/min; continue 500mg IV Q 24 hrs Pharmacy will continue to follow and will adjust dose/frequency as necessary. Thank you.
[2019-11-15] MEDS: ALBUT/IPRATROP 3MG/0.5MG NEB 3 ML VIAL NEB PRN (11:22)
[2019-11-15] MEDS: PHENYLEPHRINE HCL 80 MG in SODIUM CHLORIDE 0.9% 500 ML IV SCH (11:32)
[2019-11-15 11:52] LABS: Hematocrit (blood only) 21.6 % (37-47); Hemoglobin 7.6 g/dL (12.0-16.0)
[2019-11-15] MEDS: INSULIN ASPART 100 UNITS/ML 3 ML PEN SC SCH ×4 (12:08→19:36)
--- NOTE | 2019-11-15 12:22 | Hospitalist Progress Note ---
Date of Service November 15, 2019 Assessment & Plan (1) AMS (altered mental status): (2) Hepatic encephalopathy: (3) Liver disease due to alcohol: (4) Cirrhosis: Hepatic encephalopathy Patient is in shock Possible septic. Other contributors are GI bleed Continue broad-spectrum antibiotics with vancomycin and ertapenem Continue pressors to keep map above 65 Follow-up cultures and lab Management of GI bleed as below Ammonia level was 41 on admission Lactulose may be held for now and resume as soon as possible due to recent rectal variceal clipping GI recommendations appreciated Diagnostic paracentesis not suggestive of SBP Elevated lactic acid level Trend lactate with resuscitation (5) GI hemorrhage: (6) Supratherapeutic international normalized ratio (INR): (7) Acute blood loss anemia: GI bleed in patient with decompensated alcoholic cirrhosis Will need emergent EGD once stabilized INR on admission was 9.1, hemoglobin was 5.7 on admission Has got PRBC, FFP, vitamin K and Kcentra INR reduced to 3.6 prior to endoscopies. Still requiring blood transfusion. Continue to transfuse PRN to keep hemoglobin above 7 INR is 2.6 this morning Coumadin on hold Continue IV PPI and octreotide (8) Elevated troponin: Likely from demand from blood loss anemia Echo done was unremarkable Hypokalemia Hypomagnesemia VENECIA on CKD Replete electrolytes aggressively and monitor [place] Manager recommendations appreciated Monitor urine output (9) Sleep apnea: (10) Thrombosis, portal vein: Coumadin on hold as noted above (11) Schizoaffective disorder: Not on any meds for now We will reevaluate once medically stabilized (12) COPD (chronic obstructive pulmonary disease): Admission and Anticipated Discharge Date Admission Date: November 14, 2019 Subjective Patient seen and examined Had EGD yesterday which showed grade 2 esophageal varices without active bleed status post clipping. Also had colonoscopy which showed bleeding rectal varix status post clip and ethanolamine injection Patient had been on mechanical ventilation since yesterday afternoon. Overnight, became increasingly hypotensive requiring pressors. Currently on vasopressin, Levophed, phenylephrine. Review of Systems Review of Systems: Unobtainable due to endotracheal tube Physical Exam Constitutional: Intubated and sedated ENMT: external ear and nose normal, oropharynx normal Respiratory: normal respiratory effort, lungs clear to auscultation Cardiovascular: Rate/Rhythm: regular rhythm and + tachycardic Heart Sounds: normal S1 and normal S2; no murmur Extremities: no edema Gastrointestinal (Abdomen): Inspection/Auscultation: + abdomen distended and normal bowel sounds Percussion/Palpation: abdomen soft; abdomen nontender Neurologic: On mechanical ventilation, intubated and sedated Genitourinary: Narvaez in situ Results & Data Results & Data ([facility]) Vital Signs (Past 12 Hours) Vital Signs Temp Pulse Resp BP Pulse Ox 11/15/19 11:29 104 H 28 H 95 11/15/19 08:09 95 H 105/63 100 11/15/19 08:00 37.6 C H 95 H 97 11/15/19 07:50 37.6 C H 95 H 23 121/52 L 100 11/15/19 07:28 97 H 83/58 L 99 11/15/19 07:15 94 H 26 H 99 11/15/19 07:13 94 H 99/61 L 99 11/15/19 07:00 97 H 98 11/15/19 06:15 95 H 100 11/15/19 06:13 96 H 99/62 L 100 11/15/19 06:00 94 H 100 11/15/19 05:58 94 H 97/60 L 100 11/15/19 05:45 38.1 C H 95 H 100 11/15/19 05:43 95 H 93/59 L 100 11/15/19 05:30 38.1 C H 95 H 100 11/15/19 05:28 38.1 C H 95 H 96/58 L 100 11/15/19 05:15 38.1 C H 96 H 100 11/15/19 05:13 38.1 C H 96 H 93/58 L 100 11/15/19 05:12 95 H 25 H 100 11/15/19 05:00 97 H 100 11/15/19 04:58 97 H 90/57 L 100 11/15/19 04:50 99 H 100 11/15/19 04:46 99 H 97 11/15/19 04:44 100 H 87/54 L 98 11/15/19 04:41 38.8 C H 103 H 31 H 86/55 L 97 11/15/19 04:30 99 H 100 11/15/19 04:28 97 H 86/55 L 100 05/18/20 04:15 99 H 100 11/15/19 04:13 99 H 87/53 L 100 11/15/19 04:00 102 H 100 11/15/19 03:58 100 H 91/54 L 100 11/15/19 03:45 100 H 100 11/15/19 03:43 99 H 85/52 L 100 11/15/19 03:30 104 H 94 11/15/19 03:28 101 H 88/53 L 100 11/15/19 03:15 101 H 100 11/15/19 03:13 101 H 89/55 L 100 11/15/19 03:00 102 H 100 11/15/19 02:58 101 H 77/51 L 100 11/15/19 02:45 101 H 100 11/15/19 02:43 101 H 80/50 L 100 11/15/19 02:30 38.1 C H 102 H 100 11/15/19 02:28 103 H 76/51 L 100 11/15/19 02:15 105 H 100 11/15/19 02:13 103 H 76/51 L 100 11/15/19 02:00 108 H 100 11/15/19 01:58 108 H 82/48 L 100 11/15/19 01:51 113 H 28 H 100 11/15/19 01:45 115 H 100 11/15/19 01:43 109 H 82/51 L 100 11/15/19 01:30 111 H 100 11/15/19 01:28 116 H 87/52 L 100 11/15/19 01:15 112 H 80 L 11/15/19 01:13 115 H 80/51 L 100 11/15/19 01:00 114 H 100 11/15/19 00:58 109 H 86/53 L 100 11/15/19 00:45 118 H 97 11/15/19 00:43 117 H 74/58 L 100 11/15/19 00:34 107 H 78/50 L 100 11/15/19 00:30 114 H 100 11/15/19 00:28 116 H 87/56 L 100 Laboratory Results Short CBC 11/14/19 11/14/19 11/14/19 Range/Units 14:19 18:08 21:57 WBC 14.94 H (4.8-10.8) K/uL Hgb 7.1 L 7.7 L 7.0 L (12.0-16.0) g/dL Hct 20.1 L* 21.9 L 20.4 L* (37-47) % Plt Count 66 L (130-400) K/uL 11/15/19 11/15/19 11/15/19 Range/Units 01:40 05:50 08:35 WBC 15.52 H Cancelled 23.13 H (4.8-10.8) K/uL Hgb 6.7 L* Cancelled 7.6 L (12.0-16.0) g/dL Hct 19.1 L* Cancelled 21.4 L (37-47) % Plt Count 62 L Cancelled 54 L (130-400) K/uL 11/15/19 Range/Units 11:46 WBC (4.8-10.8) K/uL Hgb 7.6 L (12.0-16.0) g/dL Hct 21.6 L (37-47) % Plt Count (130-400) K/uL BMP 11/14/19 11/15/19 14:19 05:50 Sodium 135 L 134 L Potassium 3.7 2.6 L D Chloride 101 103 Carbon Dioxide 19 L 11 L BUN 54 H 48 H Creatinine 4.12 H 4.49 H D Glucose 129 H 180 H Calcium 8.1 L 6.8 L D Cardiac Enzymes 11/14/19 11/14/19 11/15/19 Range/Units 14:19 18:08 01:40 Troponin I 0.125 H* 0.178 H* 1.370 H* (0-0.045) ng/ml Liver Function 11/14/19 11/15/19 Range/Units 14:19 05:50 Total Bilirubin 6.0 H (0.2-1) mg/dl Direct Bilirubin 4.0 H (0-0.2) mg/dl AST 23 (15-37) U/L ALT 11 L (12-78) U/L Alkaline Phosphatase 85 (45-117) U/L Albumin 2.6 L 2.4 L (3.4-5.0) gm/dl (1) GI hemorrhage GI bleed type/associated pathology: unspecified gastrointestinal hemorrhage type Qualified Code(s): K92.2 - Gastrointestinal hemorrhage, unspecified (2) Schizoaffective disorder Schizoaffective disorder type: unspecified Qualified Code(s): F25.9 - Schizoaffective disorder, unspecified
--- NOTE | 2019-11-15 12:50 | Nephrology Progress Note ---
Date of Service November 15, 2019 Assessment & Plan (1) Acute renal failure (ARF): acute on rapidly progressive renal failure likely due to ischemic ATN in setting of GI bleeding and septic shock of unclear source. Patient is oliguric. Creatinine is 4.3 which is up from 3.5 at the time of discharge about a month ago; 3.5 was rapidly progressive CKD. Hemoglobin was 5.5 on admission. Blood pressure has been fairly stable with systolic between 100-130. Hepatorenal syndrome is diagnosis of exclusion and usually renal function does not improve after volume resuscitation. she is not showing much improvement but also with shock and pressor dependence would be difficult to DX HRS here, given plausible clinical alternatives. Management of ATN is supportive. UA shows ketnouria, chronic inflammation possibly c/w UTI but not definitive; no casts noted and >30 squams/ HPF. -actively drinking and not a TIPS or liver txplt candidate; deidra there is no urgent indication fo rdialysis and doubt she would tolerate much on 3 pressors, she would not be a dialysis candidate in this context; low threshold to involve palliative w/ these poor prx indicators -repeat chemistries at 1600 -Monitor input output to cont (2) Hepatic encephalopathy: Patient with diabetic encephalopathy and GI bleeding. She is planned for emergent EGD per gastroenterology. Encephalopathy is not due to uremia as BUN is only 55 and patient has GI bleeding. We will continue to monitor mental status closely. No indication for dialysis at the moment. (3) Acute blood loss anemia: Due to GI bleed. Continue blood transfusion as needed. No role for Epogen in setting of acute kidney injury; critical care plans serial H&H. (4) Electrolyte abnormality: getting 3 gm mag for mag 0.6 this am; also getting K repletion; had Ca this am. >mag, K, Ca being repleted over several hours IV >> will repeat bmp, mag at 1600, about 1 hr after repletion done Present on Admission?: Yes Admission and Anticipated Discharge Date Admission Date: November 14, 2019 Subjective pt intubated and not responsive (no sedation currently); intubated yesterday, had 3L tap and upper/lower GI scope >> rectal varix not amenable to band despite multiple attempts; EGD w/o active bleeding from EVs but banded empirically; she squirts blood from rectum w/ turning per nursing staff; on 3 pressors now at stable doses; febrile to 38.8 this am Review of Systems Review of Systems: Unobtainable due to endotracheal tube Physical Exam Constitutional: well developed, well nourished and + mechanically ventilated ENMT: Ears: no external ear abnormality Nose: no external nose abnormality Mouth: + dry oral mucous membranes ETT present Neck: no nuchal rigidity Respiratory: normal respiratory effort Auscultation: + diminished lung sounds (L>R) and + rhonchi Cardiovascular: Rate/Rhythm: regular rhythm and + tachycardic Extremities: no edema Gastrointestinal (Abdomen): Inspection/Auscultation: normal bowel sounds Percussion/Palpation: abdomen soft; abdomen nontender and no guarding Rectal Exam: + heme positive stool Skin: no rashes, warm and dry Neurologic: not responsive Genitourinary: arriola w/ scant serna urine Results & Data ([facility]) Vital Signs (Past 12 Hours) Vital Signs Temp Pulse Resp BP Pulse Ox 11/15/19 12:00 37.8 C H 98 H 99 11/15/19 11:40 97 H 89/44 L 98 11/15/19 11:29 104 H 28 H 95 11/15/19 11:00 118 H 78 L 11/15/19 10:51 94 H 95/42 L 100 11/15/19 10:00 98 H 100 11/15/19 09:40 97 H 97 11/15/19 09:00 101 H 98 11/15/19 08:39 95 H 97/65 L 100 11/15/19 08:10 96 H 100 11/15/19 08:09 95 H 105/63 100 11/15/19 08:00 37.6 C H 95 H 97 11/15/19 07:50 37.6 C H 95 H 23 121/52 L 100 11/15/19 07:28 97 H 83/58 L 99 11/15/19 07:15 94 H 26 H 99 11/15/19 07:13 94 H 99/61 L 99 11/15/19 07:00 97 H 98 11/15/19 06:15 95 H 100 11/15/19 06:13 96 H 99/62 L 100 11/15/19 06:00 94 H 100 11/15/19 05:58 94 H 97/60 L 100 05/18/20 05:45 38.1 C H 95 H 100 05/18/20 05:43 95 H 93/59 L 100 05/18/20 05:30 38.1 C H 95 H 100 05/18/20 05:28 38.1 C H 95 H 96/58 L 100 05/18/20 05:15 38.1 C H 96 H 100 05/18/20 05:13 38.1 C H 96 H 93/58 L 100 05/18/20 05:12 95 H 25 H 100 05/18/20 05:00 97 H 100 0518/20 04:58 97 H 90/57 L 100 05/18/20 04:50 99 H 100 05/18/20 04:46 99 H 97 05/18/20 04:44 100 H 87/54 L 98 05/18/20 04:41 38.8 C H 103 H 31 H 86/55 L 97 05/18/20 04:30 99 H 100 05/18/20 04:28 97 H 86/55 L 100 05/18/20 04:15 99 H 100 05/18/20 04:13 99 H 87/53 L 100 05/18/20 04:00 102 H 100 05/18/20 03:58 100 H 91/54 L 100 05/18/20 03:45 100 H 100 05/18/20 03:43 99 H 85/52 L 100 05/18/20 03:30 104 H 94 05/18/20 03:28 101 H 88/53 L 100 05/18/20 03:15 101 H 100 05/18/20 03:13 101 H 89/55 L 100 05/18/20 03:00 102 H 100 05/18/20 02:58 101 H 77/51 L 100 05/18/20 02:45 101 H 100 05/18/20 02:43 101 H 80/50 L 100 05/18/20 02:30 38.1 C H 102 H 100 05/18/20 02:28 103 H 76/51 L 100 05/18/20 02:15 105 H 100 05/18/20 02:13 103 H 76/51 L 100 05/18/20 02:00 108 H 100 05/18/20 01:58 108 H 82/48 L 100 05/18/20 01:51 113 H 28 H 100 05/18/20 01:45 115 H 100 11/15/19 01:43 109 H 82/51 L 100 11/15/19 01:30 111 H 100 11/15/19 01:28 116 H 87/52 L 100 11/15/19 01:15 112 H 80 L 11/15/19 01:13 115 H 80/51 L 100 11/15/19 01:00 114 H 100 11/15/19 00:58 109 H 86/53 L 100 11/15/19 00:45 118 H 97 Laboratory Results 11/15/19 11:46 11/15/19 05:50 (1) Acute renal failure (ARF) Acute renal failure type: unspecified Qualified Code(s): N17.9 - Acute kidney failure, unspecified
[2019-11-15] MEDS ORDERED: PHARMACY GLYCEMIC MGMT CONSULT PRN (13:36)
[2019-11-15] MEDS: THIAMINE HCL 300 MG in SODIUM CHLORIDE 0.9% 50 ML IV SCH ×2 (13:50→21:02)
--- NOTE | 2019-11-15 13:55 | Pharmacy Report ---
Pharmacy Glycemic Short Note 2 - Date of Service November 15, 2019 - Glycemic Short BSG Results (Last 24 hours): 11/14/19 11/15/19 11/15/19 14:19 05:50 11:50 Glucose 129 H 180 H POC Glucose (other) 230 H OUTPATIENT ANTIDIABETIC REGIMEN: * n/a * 4.9% 07/2019 ASSESSMENT: * Patient admitted with encephalopathy, decompensated liver failure, VENECIA, GIB, and possible sepsis. * Although patient does have a h/o DM, her last A1c was rather low and she does not use medications to treat DM * BSGs trending upwards today, likely due to worsening stressors * Unable to begin insulin drip due to severe hypokalemia. Will initiate basal / bolus regimen cautiously given risk of hypoglycemia in patient with hepatic failure. Lantus will be dosed BID per scale to lessen hypoglycemia risk. Will start Q 2 hr Novolog therapy to address rising BSGs with plans to convert to Q 4 hr scaled regimen once BSG less than 200. Initial regimen will be based upon total daily insulin needs of ~0.5units/kg/day while stressed. PLAN FOR INPATIENT GLYCEMIC CONTROL: * Monitor BSGs with iSTAT due to pressor use * Basal insulin * Lantus 10 units SQ x 1 now, then BID per scale * 0 units if BSG less than 120 * 10 units if BSG above 120 * Bolus insulin * Novolog 4 units Q 2 hrs until BSG less than 200 then Q 4 hrs per the following scale * 0 units if less than 120 * 2 units if BSG 120-140 * 3 units if BSG 141-180 * 5 units if BSG 181-220 * 7 units if BSG greater than 220
[2019-11-15] MEDS ORDERED: INSULIN GLARGINE SOLOSTAR 100 UNITS/ML 3 ML PEN SC ONE (14:00)
[2019-11-15] MEDS: NOREPINEPHRINE BIT INJ 8 MG in DEXTROSE 5% 250 ML IV SCH (14:28)
[2019-11-15 16:53] LABS: BUN Creatinine Ratio 9.7 (10-20); Calcium 7.5 mg/dl (8.5-10.1); Est GFR (African American) 11.5; Est GFR (Non-African American) 9.9; Magnesium 1.6 mg/dl (1.8-2.4); Phosphorus 3.6 mg/dl (2.5-4.9); Potassium 3.3 mmol/L (3.5-5.1)
--- NOTE | 2019-11-15 16:58 | Electrocardiogram Report ---
Test Reason : Blood Pressure : / mmHG Vent. Rate : 097 BPM Atrial Rate : 097 BPM P-R Int : 156 ms QRS Dur : 078 ms QT Int : 382 ms P-R-T Axes : 063 -16 035 degrees QTc Int : 485 ms Sinus rhythm with Premature atrial complexes Low voltage QRS Prolonged QT Abnormal ECG When compared with ECG of 14-NOV-2019 04:08, Left anterior fascicular block is no longer Present Confirmed by En Hein [id number] on 11/15/2019 4:58:08 PM Referred By: REFERRED SELF Confirmed By:Oscar Hein
[2019-11-15 20:51] LABS: Hematocrit (blood only) 21.7 % (37-47); Hemoglobin 7.5 g/dL (12.0-16.0)
[2019-11-15] MEDS ORDERED: INSULIN GLARGINE SOLOSTAR 100 UNITS/ML 3 ML PEN SC SCH (21:00)
[2019-11-15 21:22] LABS: BUN Creatinine Ratio 9.9 (10-20); Calcium 7.2 mg/dl (8.5-10.1); Creatinine Clr Calc Pharmacy 15.1 ml/min; Est GFR (African American) 11.5; Magnesium 1.4 mg/dl (1.8-2.4); Phosphorus 3.5 mg/dl (2.5-4.9); Potassium 3.3 mmol/L (3.5-5.1)
[2019-11-15] MEDS ORDERED: MAGNESIUM SULFATE / D5W 1 GM/100 ML BAG IV ONE (21:30)
[2019-11-15] MEDS ORDERED: CALCIUM CHLORIDE 10% 1,000 MG in SODIUM CHLORIDE 0.9% 50 ML IV STA (21:40)
[2019-11-16] MEDS ORDERED: VANCOMYCIN HCL 1,000 MG in SODIUM CHLORIDE 0.9% 250 ML IV ONE
[2019-11-16] MEDS: NOREPINEPHRINE BIT INJ 8 MG in DEXTROSE 5% 250 ML IV SCH ×3 (00:15→18:19)
[2019-11-16] MEDS: OCTREOTIDE ACETATE 500 MCG in 0.9 % SODIUM CHLORIDE 100 ML IV SCH ×3 (00:15→20:50)
[2019-11-16] MEDS: POTASSIUM CHLORIDE / WTR 20 MEQ/100 ML PLCT IV SCH (00:15)
[2019-11-16] MEDS: PHENYLEPHRINE HCL 80 MG in SODIUM CHLORIDE 0.9% 500 ML IV SCH (00:15)
[2019-11-16] MEDS: VASOPRESSIN 20 UNITS in 0.9 % SODIUM CHLORIDE 100 ML IV SCH ×3 (00:16→17:45)
[2019-11-16] MEDS: PANTOprazole 40 MG in DEXTROSE 5% 100 ML IV SCH ×5 (00:16→20:50)
[2019-11-16] MEDS: INSULIN ASPART 100 UNITS/ML 3 ML PEN SC SCH ×6 (00:29→20:49)
[2019-11-16] MEDS: ALBUT/IPRATROP 3MG/0.5MG NEB 3 ML VIAL NEB PRN (04:01)
[2019-11-16 04:37] LABS: Hematocrit (blood only) 20.6 % (37-47); Hemoglobin 7.3 g/dL (12.0-16.0); Mean Corpuscular Hemoglobin 32.7 pg (25-34); Mean Corpuscular Hgb Conc 35.4 g/dL (32-36); Mean Corpuscular Volume 92.4 fL (80-100); Mean Platelet Volume 11.1 fL (7.4-10.4); Platelet Count 46 K/uL (130-400); RDW Coefficient of Variation 18.7 % (11.5-14.5); RDW Standard Deviation 57.9 fL (36.4-46.3); Red Blood Count 2.23 M/uL (4.2-5.4); White Blood Count 18.47 K/uL (4.8-10.8)
[2019-11-16 04:42] LABS: INR 3.6 (0.9-1.1); Prothrombin Time 35.2 Seconds (9.0-12.0)
[2019-11-16 05:00] LABS: Albumin Globulin Ratio 0.6 (0.9-2); Albumin Level 2.4 gm/dl (3.4-5.0); BUN Creatinine Ratio 9.9 (10-20); Bilirubin,Total 8.2 mg/dl (0.2-1); Calcium 7.6 mg/dl (8.5-10.1); Est GFR (African American) 11.5; Est GFR (Non-African American) 9.9; Magnesium 1.6 mg/dl (1.8-2.4); Phosphorus 3.1 mg/dl (2.5-4.9); Potassium 3.7 mmol/L (3.5-5.1); Total Protein 6.4 gm/dl (6.4-8.2); Troponin I 0.929 ng/ml (0-0.045)
[2019-11-16] MEDS: ALBUMIN 25% 50 ML IV SCH ×4 (05:07→20:52)
[2019-11-16 05:23] LABS: iSTAT Arterial Blood Gas HCO3 11 meg/L (19-24); iSTAT Arterial Blood Gas pCO2 19 mmHg (35-46); iSTAT Arterial Blood Gas pH 7.35 (7.35-7.45); iSTAT Arterial Blood Gas pO2 119 mmHg (80-95); iSTAT Carbon Dioxide 11 mmol/L (24-31); iSTAT FiO2 30 %; iSTAT Site L Brachial
[2019-11-16] MEDS ORDERED: MAGNESIUM SULFATE / D5W 1 GM/100 ML BAG IV ONE (05:24)
[2019-11-16] MEDS: ERTAPENEM SODIUM 500 MG in SODIUM CHLORIDE 0.9% 50 ML IV SCH (05:45)
[2019-11-16] MEDS ORDERED: POTASSIUM CHLORIDE / WTR 20 MEQ/100 ML PLCT IV ONE (06:00)
--- NOTE | 2019-11-16 08:06 | Critical Care Progress Note ---
Date of Service November 16, 2019 Assessment & Plan (1) Hepatic encephalopathy: (1) Admitted to intensive care unit: Reason Critically Ill: 54-year-old female with altered mental status in the setting of presumed upper GI bleed with supratherapeutic INR requiring close hemodynamic monitoring in the setting of above. NEURO - Acute encephalopathy -Hepatic encephalopathy: Elevated ammonia -Passing stools secondary to GI bleeding -Rifaximin: 550 twice daily: Holding secondary to lack of NG access secondary to recent banding -Lactulose 3 times daily as needed titrate to 3 bowel movements daily: Holding secondary to lack of NG access, retention enema also relatively contraindicated -Suspect metabolic component: Sepsis - Holding all sedatives, at risk for cerebral edema -Osmolality minimally elevated CARDIAC/VASCULAR - Hypotension: Sepsis versus type II ischemia -Elevated troponin: -With normal echocardiogram this is likely demand ischemia, sepsis related myocardial dysfunction, acute kidney injury -Transfusion hemoglobin still 7 -Repeat EKG no particular ST changes will remain at 7 for goal hemoglobin Paroxysmal A. fib: -Currently anticoagulated with Coumadin for long-term anticoagulation -Will consider anticoagulation as she gets further from her acute blood loss anemia -Risk of bleeding outweighs risk of thrombosis secondary to A. 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 Not candidate for transplant Not candidate for TIPS given likely serna of infection. RENAL/LYTES - Acute renal failure: No improvement -Possible hepatorenal syndrome Lactic acidosis (metabolic high gap acidosis): No improvement -Bicarb infusion running -Thiamine repletion: 300 mg 3 times daily x6 doses Nephrology consulted -If patient requires renal replacement therapy would highly consider CVVH given vasoactive medication requirements. Azotemia: Secondary to chronic kidney disease and GI bleeding Hypokalemia: Improved -20 M EQ's potassium chloride ordered Hypomagnesemia -1 g ordered Hypocalcemia -1 g calcium gluconate - Narvaez to be placed - Strict I&Os. ENDO - DMII Hyperglycemia: Poorly controlled -NovoLog every 2 with basal HEME - Acute blood loss anemia: 2/2 GIB. Additional 2.5 mg IV Vitamin K 11/15 Trend H&H. ID - SBP Prophylaxis: Received Ertapenem. Patient w/ multiple antibiotic allergies. Received in the past. Possible sepsis: No blood culture, ascitic results and urine demonstrated pinpoint growth -I do not believe this was sepsis I believe this was a systemic inflammatory response syndrome secondary to profound hypovolemic shock secondary to acute blood loss gastrointestinal hemorrhage secondary to end-stage cirrhosis complicated with multiple organ dysfunction syndrome (acute kidney injury, acute liver injury, metabolic encephalopathy, -I believe the ertapenem can be decreased to ceftriaxone for a total of 7 days of effective therapy which will include the ertapenem LINES/IV ACCESS - Femoral central venous access, femoral arterial line placed 11/15/2019 DVT PROPHYLAXIS - Hold on chemoprophylaxis 2/2 GIB. SCDs CODE STATUS: Full -Palliative care consulted for goals of care -Discussed with brother yesterday who reported he would need to discuss options with additional family. Advised brother yesterday patient may be entering active dying process. 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 Vasoactive medication requirements have mildly decreased. There is small amounts of urine being produced. Review of Systems Review of Systems: Unobtainable due to endotracheal tube and Unobtainable due to reduced consciousness Physical Exam Physical Exam: General: Unresponsive, has cough, breathing over vent Skin: Cool, dry, diffuse edema Head: Atraumatic Ears, nose, mouth and throat: obscured by endotracheal tube, dry mucous membranes Cardiovascular: sluggish capillary refill Respiratory: no respiratory distress, scattered rhonchi Gastrointestinal: No organomegaly, presumptive ascites, nonrigid Musculoskeletal: No deformity Results & Data Results & Data ([facility]) Vital Signs (Past 12 Hours) Vital Signs Temp Pulse Resp BP Pulse Ox 11/16/19 07:41 103 H 28 H 33 L 11/16/19 06:00 37.1 C 113 H 96 11/16/19 05:40 99 H 99 11/16/19 05:13 97 H 137/42 L 100 11/16/19 05:00 37 C 94 H 99 11/16/19 04:40 97 H 99 11/16/19 04:00 94 H 99 11/16/19 03:56 89 28 H 100 11/16/19 03:40 95 H 87/20 L 100 11/16/19 03:00 37.1 C 97 H 99 11/16/19 02:40 88 120/44 L 99 11/16/19 02:00 37.3 C 85 99 11/16/19 01:40 86 100 11/16/19 01:00 37.5 C 90 99 11/16/19 00:40 90 89/36 L 99 11/16/19 00:00 37 C 88 99 11/15/19 23:40 89 143/28 H 100 11/15/19 23:23 93 H 27 H 100 11/15/19 23:00 37.1 C 90 99 11/15/19 22:49 100 H 99 11/15/19 22:40 88 99 11/15/19 22:00 37.7 C H 91 H 100 11/15/19 21:53 92 H 133/22 L 100 11/15/19 21:40 97 H 100 11/15/19 21:00 37.1 C 96 H 99 11/15/19 20:40 94 H 112/42 L 100 Coding Level of Care Code Critical Care ea addt'l 30 min Diagnoses Hepatic encephalopathy K72.90 GI hemorrhage K92.2 GI bleed type/associated pathology: unspecified gastrointestinal hemorrhage type Liver disease due to alcohol K70.9 Supratherapeutic international normalized ratio (INR) R79.1 Cirrhosis K74.60 Thrombosis, portal vein I81 Acute blood loss anemia D62 UGIB (upper gastrointestinal bleed) K92.2 Admitted to intensive care unit Z78.9 Time Spent (min) 80 Comment I have personally spent 80 minutes of critical care time in the direct management of this patient. This is a life/limb threatening event. This includes time spent evaluating patient, direct bedside care, chart review, placing orders, interpretation of diagnostic studies, discussion with consultants, patient, and/or family members regarding treatment decisions, as well as other required patient management activities. This time is exclusive of all separately billable procedures, and teaching time and separate from and in addition to any other critical care service time. (1) GI hemorrhage GI bleed type/associated pathology: unspecified gastrointestinal hemorrhage type Qualified Code(s): K92.2 - Gastrointestinal hemorrhage, unspecified
--- NOTE | 2019-11-16 08:12 | XRay Report ---
XR chest 1V portable CLINICAL HISTORY: 54 years-old Female presenting with f/u. TECHNIQUE: Portable upright AP view of the chest was obtained. COMPARISON: 11/15/2019. FINDINGS: Endotracheal tube terminates in the lower thoracic trachea 1.8 cm from the anya. Numerous overlying external leads to grating image quality. Atherosclerosis and prominence of the thoracic aorta in par t due to PASHTO rotation. Cardiac silhouette mildly enlarged. Pulmonary vascular prominence. Elevation o f the right hemidiaphragm as on prior exam. Small right pleural effusion suspected. No focal lung [place]. No pneumothorax. Degenerative changes of the thoracic spine. Upper abdomen normal. IMPRESSION: 1. Appropriately positioned endotracheal tube. 2. Mild cardiomegaly with volume overload. No caleb pulmonary edema. 3. Small right pleural effusion. ACT 112: Negative or not required by law. Electronically signed by: Alonso Nelson M.D. 11/16/2019 8:10 AM
--- NOTE | 2019-11-16 08:12 | Communication Note ---
Date of Service: November 16, 2019 Chart reviewed, discussed with attending. Pt remains intubated, sedated. Worsening hepatic/renal function. Persistent elevated lactic acid. HGB stable. Documented intermittent bloody stools. MELD 40. Please see yesterday documentation for further recommendations. Would recommend palliative care consultation GIA TOMLINSON 11/16/19 [id number]
[2019-11-16] MEDS: UMECLIDINIUM BROMIDE 62.5MCG/BLISTER 7 PUFFS/INHALER INH SCH (08:41)
[2019-11-16] MEDS: SODIUM BICARBONATE 8.4% 150 MEQ in WATER, STERILE 1,000 ML IV SCH (08:42)
[2019-11-16] MEDS: FOLIC ACID 1 MG in SYRINGE 9.8 ML IV SCH (09:06)
[2019-11-16] MEDS: THIAMINE HCL 300 MG in SODIUM CHLORIDE 0.9% 50 ML IV SCH ×3 (09:06→21:46)
[2019-11-16] MEDS ORDERED: CALCIUM GLUCONATE 10% 10 ML VIAL IV STA (09:15)
[2019-11-16] MEDS ORDERED: PHYTONADIONE 2.5 MG in SODIUM CHLORIDE 0.9% 50 ML IV ONE (09:30)
[2019-11-16] MEDS ORDERED: SODIUM CHLORIDE 0.9% 250 ML IV PRN (09:38)
[2019-11-16] MEDS ORDERED: CALCIUM GLUCONATE 10% 1,000 MG in SODIUM CHLORIDE 0.9% 50 ML IV ONE (10:00)
[2019-11-16] MEDS: cefTRIAXone SODIUM 2,000 MG in DEXTROSE 5% 50 ML IV SCH (10:07)
--- NOTE | 2019-11-16 12:23 | Nephrology Progress Note ---
Date of Service November 16, 2019 Assessment & Plan (1) Acute renal failure (ARF): acute on rapidly progressive renal failure likely due to ischemic ATN in setting of GI bleeding and septic shock of unclear source. Patient is now anuric but urine output has increased in the past 5-6 hours. lactate has been hovering at about 10; repeat is pending (came back at 11); cxs remain negative. Creatinine is 4.6 which is up from 3.5 at the time of discharge about a month ago; 3.5 was rapidly progressive CKD. Hemoglobin was 5.5 on admission. Blood pressure has been a bit lower with systolic between 100-120s. Hepatorenal syndrome is diagnosis of exclusion and usually renal function does not improve after volume resuscitation. she is not showing much improvement but also with shock and pressor dependence would be difficult to DX HRS here, given plausible clinical alternatives. Management of ATN is supportive. UA shows ketnouria, chronic inflammation possibly c/w UTI but not definitive; no casts noted and >30 squams/ HPF. -lactic acidemia in setting of sepsis-cultures remain negative so far; continue supportive care -actively drinking and not a TIPS or liver txplt candidate; she would not be a dialysis candidate in this clinical context; again low threshold to involve palliative w/ these poor prx indicators -repeat chemistries later today -Monitor input output to cont (2) Hepatic encephalopathy: Patient with hepatic encephalopathy and GI bleeding. She underwent emergent EGD per gastroenterology. Encephalopathy is not due to uremia as BUN is only 46 and patient has GI bleeding. We will continue to monitor mental status closely. (3) Acute blood loss anemia: Due to GI bleed. Continue blood transfusion as needed. No role for Epogen in setting of acute kidney injury; critical care plans serial H&H. (4) Electrolyte abnormality: magnesium has stabilized, phosphorus wnl; iCa low; >repeat bmp at least bid and replete prn >> ordered repeat labs for 1700 -recommend 1 gm ionized calcium and note was already given this am Admission and Anticipated Discharge Date Admission Date: November 14, 2019 Subjective Joe minimally responsive. Down to 1 pressor however. Urine output also picking up and about 12 to 20 mL hourly currently. Date of care consult pending. Review of Systems Review of Systems: Unobtainable due to endotracheal tube Physical Exam Constitutional: well developed, well nourished and + mechanically ventilated ENMT: Ears: no external ear abnormality Nose: no external nose abnormality Mouth: + dry oral mucous membranes Neck: no nuchal rigidity Respiratory: normal respiratory effort Auscultation: + diminished lung sounds (L>R) and + rhonchi Cardiovascular: Rate/Rhythm: regular rhythm and + tachycardic Extremities: no edema Gastrointestinal (Abdomen): Inspection/Auscultation: normal bowel sounds Percussion/Palpation: abdomen soft; abdomen nontender and no guarding Rectal Exam: + heme positive stool Musculoskeletal: Extremities: strength 5/5 throughout Skin: no rashes, warm and dry Results & Data ([facility]) Vital Signs (Past 12 Hours) Vital Signs Temp Pulse Resp BP Pulse Ox 11/16/19 12:04 37 C 109 H 28 H 117/62 100 11/16/19 11:49 37.1 C 109 H 23 105/51 L 100 11/16/19 11:33 37 C 115 H 23 117/58 L 94 11/16/19 11:28 37 C 11/16/19 11:12 36.9 C 112 H 25 H 119/59 L 11/16/19 11:10 113 H 36 H 11/16/19 10:42 37 C 113 H 30 H 125/60 11/16/19 10:27 37 C 110 H 125/59 L 11/16/19 10:15 108 H 11/16/19 10:11 37 C 112 H 28 H 125/60 94 11/16/19 10:00 110 H 11/16/19 09:52 109 H 130/72 11/16/19 09:45 109 H 11/16/19 09:30 109 H 11/16/19 09:15 100 H 11/16/19 09:00 105 H 68 L 11/16/19 08:52 97 H 120/68 93 11/16/19 08:45 94 H 11/16/19 08:30 99 H 11/16/19 08:15 97 H 11/16/19 08:00 100 H 11/16/19 07:59 96 H 113/60 11/16/19 07:58 97 H 11/16/19 07:53 101 H 66/38 L 11/16/19 07:41 103 H 28 H 33 L 11/16/19 07:40 37.2 C 100 H 122/59 L 94 11/16/19 07:00 101 H 100 11/16/19 06:40 101 H 118/65 99 11/16/19 06:02 110 H 101/85 100 11/16/19 06:00 37.1 C 113 H 96 11/16/19 05:40 99 H 99 11/16/19 05:13 97 H 137/42 L 100 11/16/19 05:00 37 C 94 H 99 11/16/19 04:40 97 H 99 11/16/19 04:00 94 H 99 11/16/19 03:56 89 28 H 100 11/16/19 03:40 95 H 87/20 L 100 11/16/19 03:00 37.1 C 97 H 99 11/16/19 02:40 88 120/44 L 99 11/16/19 02:00 37.3 C 85 99 11/16/19 01:40 86 100 11/16/19 01:00 37.5 C 90 99 11/16/19 00:40 90 89/36 L 99 Laboratory Results 11/16/19 04:14 11/16/19 04:14 (1) Acute renal failure (ARF) Acute renal failure type: unspecified Qualified Code(s): N17.9 - Acute kidney failure, unspecified
--- NOTE | 2019-11-16 12:40 | Hospitalist Progress Note ---
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: (4) Cirrhosis: Hepatic encephalopathy Shock Septic versus hemorrhagic Blood cultures negative 48 hours Broad-spectrum antibiotics vancomycin and ertapenem D escalated to ceftriaxone Continue vasopressin to keep map above 65 Management of GI bleed as below Ammonia level was 41 on admission Lactulose may be held for now and resume as soon as possible due to recent rectal variceal clipping GI recommendations appreciated Diagnostic paracentesis not suggestive of SBP Elevated lactic acid level Continue to trend lactate with resuscitation Continue to monitor meld labs (5) GI hemorrhage: (6) Supratherapeutic international normalized ratio (INR): (7) Acute blood loss anemia: GI bleed in patient with decompensated alcoholic cirrhosis Will need emergent EGD once stabilized INR on admission was 9.1, hemoglobin was 5.7 on admission Has got PRBC, FFP, vitamin K and Kcentra Still requiring blood transfusion. Continue to transfuse PRN to keep hemoglobin above 7 Hemoglobin 7.3 this morning Coumadin on hold Continue IV PPI and octreotide (8) Elevated troponin: Likely from demand from blood loss anemia Echo done was unremarkable Hypokalemia Hypomagnesemia VENECIA [likely ischemic ATN from shock and GI bleed] Replete electrolytes aggressively and monitor Costume Design Teacher recommendations noted Monitor urine output (9) Sleep apnea: (10) Thrombosis, portal vein: Coumadin on hold as noted above (11) Schizoaffective disorder: Not on any meds for now We will reevaluate once medically stabilized (12) COPD (chronic obstructive pulmonary disease): Admission and Anticipated Discharge Date Admission Date: November 14, 2019 Subjective Patient seen and examined Still on mechanical ventilation Currently on vasopressin only. Off Levophed and phenylephrine. So far patient has received 4 PRBCs, 2 FFP, 1 platelet Not on any sedation. Per RN patient has intermittent bloody stool. GI aware Review of Systems Review of Systems: Unobtainable due to endotracheal tube Physical Exam Constitutional: Intubated, unresponsive Respiratory: normal respiratory effort, lungs clear to auscultation Cardiovascular: Rate/Rhythm: regular rhythm and + tachycardic Heart Sounds: normal S1 and normal S2; no murmur Extremities: no edema Gastrointestinal (Abdomen): Inspection/Auscultation: + abdomen distended and normal bowel sounds Percussion/Palpation: abdomen soft; abdomen nontender Results & Data Results & Data ([facility]) Vital Signs (Past 12 Hours) Vital Signs Temp Pulse Resp BP Pulse Ox 11/16/19 12:04 37 C 109 H 28 H 117/62 100 11/16/19 11:49 37.1 C 109 H 23 105/51 L 100 11/16/19 11:33 37 C 115 H 23 117/58 L 94 11/16/19 11:28 37 C 11/16/19 11:12 36.9 C 112 H 25 H 119/59 L 11/16/19 11:10 113 H 36 H 11/16/19 10:42 37 C 113 H 30 H 125/60 11/16/19 10:27 37 C 110 H 125/59 L 11/16/19 10:15 108 H 11/16/19 10:11 37 C 112 H 28 H 125/60 94 11/16/19 10:00 110 H 11/16/19 09:52 109 H 130/72 11/16/19 09:45 109 H 11/16/19 09:30 109 H 11/16/19 09:15 100 H 11/16/19 09:00 105 H 68 L 11/16/19 08:52 97 H 120/68 93 11/16/19 08:45 94 H 11/16/19 08:30 99 H 11/16/19 08:15 97 H 11/16/19 08:00 100 H 11/16/19 07:59 96 H 113/60 11/16/19 07:58 97 H 11/16/19 07:53 101 H 66/38 L 11/16/19 07:41 103 H 28 H 33 L 11/16/19 07:40 37.2 C 100 H 122/59 L 94 11/16/19 07:00 101 H 100 11/16/19 06:40 101 H 118/65 99 11/16/19 06:02 110 H 101/85 100 11/16/19 06:00 37.1 C 113 H 96 11/16/19 05:40 99 H 99 11/16/19 05:13 97 H 137/42 L 100 11/16/19 05:00 37 C 94 H 99 11/16/19 04:40 97 H 99 11/16/19 04:00 94 H 99 11/16/19 03:56 89 28 H 100 11/16/19 03:40 95 H 87/20 L 100 11/16/19 03:00 37.1 C 97 H 99 11/16/19 02:40 88 120/44 L 99 11/16/19 02:00 37.3 C 85 99 11/16/19 01:40 86 100 11/16/19 01:00 37.5 C 90 99 Laboratory Results Short CBC 11/15/19 11/16/19 Range/Units 20:40 04:14 WBC 18.47 H (4.8-10.8) K/uL Hgb 7.5 L 7.3 L (12.0-16.0) g/dL Hct 21.7 L 20.6 L* (37-47) % Plt Count 46 L (130-400) K/uL BMP 11/15/19 11/15/19 11/16/19 15:52 20:40 04:14 Sodium 130 L 130 L 130 L Potassium 3.3 L D 3.3 L 3.7 Chloride 98 98 98 Carbon Dioxide 8 L* 10 L 14 L BUN 45 H 46 H 46 H Creatinine 4.63 H* 4.62 H* 4.63 H* Glucose 202 H 165 H 125 H Calcium 7.5 L 7.2 L 7.6 L Cardiac Enzymes 11/16/19 Range/Units 04:14 Total Creatine Kinase 190 (26-192) U/L Troponin I 0.929 H* (0-0.045) ng/ml Liver Function 11/16/19 Range/Units 04:14 Total Bilirubin 8.2 H (0.2-1) mg/dl AST 21 (15-37) U/L ALT 11 L (12-78) U/L Alkaline Phosphatase 81 (45-117) U/L Albumin 2.4 L (3.4-5.0) gm/dl (1) GI hemorrhage GI bleed type/associated pathology: unspecified gastrointestinal hemorrhage type Qualified Code(s): K92.2 - Gastrointestinal hemorrhage, unspecified (2) Schizoaffective disorder Schizoaffective disorder type: unspecified Qualified Code(s): F25.9 - Schizoaffective disorder, unspecified
--- NOTE | 2019-11-16 13:34 | Palliative Care Consultation ---
Date of Consultation November 16, 2019 Assessment & Plan (1) Goals of care, counseling/discussion: -54 year old female patient with PMH alcoholic cirrhosis, portal vein thrombus, A. fib, hypertension, COPD, diabetes, alcohol abuse, cocaine abuse, and schizoaffective disorder, presented to the hospital two days ago with reports of several days of lethargy, altered mental status and blood in her stool. Patient has had several hospitalizations in 2020, recently was found to have concerns for UGIB and HRS. She has portal vein thrombus and is on Coumadin. Her INR was 9, H/H 5.7/6.0 on admission. She was given vitamin K, 2 units PRBCs, 2 units of FFP. GI consulted. Patient was also agitated ain the ED, so she was intubated and sent to the ICU. EGD and sigmoidoscopy were performed-- nonbleeding varices were found. Sigmoidoscopy revealed actively bleeding rectal varix-- it was injected with Ethanolamine and clips were placed. Overnight, she continued to deteriorate and was placed on several IV pressors for blood pressure support. Nephrology is consulted for worsening HRS-- creatinine 4.39 on admission, was 3.58 when she was discharged in September 2019. It has now risen to 4.63. Plow Shaker notes that patient is not a candidate for HD given that she is critically ill on multiple pressors. GI notes that patient is likely not a candidate for TIPS procedure and is not a transplant candidate. There are reports that patient continues to drink at home. MELD score is 40, prognosis is very poor. Today, patient's pressor usage is decreasing. Her WBCs are down to 18k from 23k. However, her H/H remains low at 7.3/20.6, plt continue to drop to 46 today. Nursing reports continued oozing of blood from rectum. INR is 3.6 today. Pallet Repairer did speak with patient's brother, who is her live-in caregiver as well, yesterday. He maintained Full code status and stated that if patient is not recovering, he would need to discuss things with family members. Palliative care is consulted to discuss goals of care with family. -Patient to be seen by palliative MD this afternoon. -No Power of Spring Up Supervisor listed, but patient's brother has been the point of contact and providing consent. Brother, Donis Judge, has maintained full code and full treatment status up until this point. -Attempted to call Donis, no answer. We will continue to follow along and try to engage with familiy as necessary. -If there is going to be family visitation, would be helpful to try and coordinate with palliative MD to see if multi-disciplinary meeting could be held to discuss goals of care. -We will continue to follow along. (2) Hepatic encephalopathy: (3) GI hemorrhage: GI bleed type/associated pathology: unspecified gastrointestinal hemorrhage type Qualified Code(s): K92.2 - Gastrointestinal hemorrhage, unspecified (4) Liver disease due to alcohol: Supervising Physician Co-Signing Physician Notes Chart reviewed, labs reviewed. Collaborated with GIA Russ Patient is with urine/blood/abdominal fluid cultures-all negative so far. Patient's INR was 9.1 on admission-dropped to 1.6, now steadily rising, 3.6 today. Patient's lactic acid is continuing to rise, was 4.3 on admission, 10.9 today. Patient's creatinine continues to rise also and her urine output continues to decrease. Patient had a urine output of 305 cc per 24 hours on the 17th, only 63 cc on the 18th. She has had 85 cc of urine output so far today. Patient's bilirubin is also rising was 4.2 on admission, 8.2 on last blood draw. PE: Patient intubated and sedated, did flex at the ankle when her feet are touched. She did not respond to anything else on exam Respiratory: Intubated CV: Tachycardic, no increased edema Abdomen: Distended, soft, no grimace on palpation Neuro: Sedated, did flex at ankle in response to foot stimulation Agree with above note, assessment and plan as per GIA Russ-we will continue to follow and assist patient's brother with medical decision making. Brother is Dnois [phone] History of Present Illness Attending Physician: Roxanne Callejas MD History of Present Illness This 54 year old female patient with PMH alcoholic cirrhosis, portal vein thrombus, A. fib, hypertension, COPD, diabetes, alcohol abuse, cocaine abuse, and schizoaffective disorder, presented to the hospital two days ago with reports of several days of lethargy, altered mental status and blood in her stool. Patient has had several hospitalizations in 2020, recently was found to have concerns for UGIB and HRS. She has portal vein thrombus and is on Coumadin. Her INR was 9, H/H 5.7/6.0 on admission. She was given vitamin K, 2 units PRBCs, 2 units of FFP. GI consulted. Patient was also agitated ain the ED, so she was intubated and sent to the ICU. EGD and sigmoidoscopy were performed-- nonbleeding varices were found. Sigmoidoscopy revealed actively bleeding rectal varix-- it was injected with Ethanolamine and clips were placed. Overnight, she continued to deteriorate and was placed on several IV pressors for blood pressure support. Nephrology is consulted for worsening HRS-- creatinine 4.39 on admission, was 3.58 when she was discharged in September 2019. It has now risen to 4.63. Plow Shaker notes that patient is not a candidate for HD given that she is critically ill on multiple pressors. GI notes that patient is likely not a candidate for TIPS procedure and is not a transplant candidate. There are reports that patient continues to drink at home. MELD score is 40, prognosis is very poor. Today, patient's pressor usage is decreasing. Her WBCs are down to 18k from 23k. However, her H/H remains low at 7.3/20.6, plt continue to drop to 46 today. Nursing reports continued oozing of blood from rectum. INR is 3.6 today. Pallet Repairer did speak with patient's brother, who is her live-in caregiver as well, yesterday. He maintained Full code status and stated that if patient is not recovering, he would need to discuss things with family members. Palliative care is consulted to discuss goals of care with family. Thank you kindly for this consult. Palliative care team will follow as needed. Allergies Allergy/AdvReac Type Severity Reaction Status Date / Time haloperidol Allergy Severe TONGUE Verified 11/14/19 04:10 SWELLING insulin lispro Allergy Intermediate HIVES Verified 11/14/19 04:10 phenol Allergy Intermediate HIVES Verified 11/14/19 04:10 citalopram Allergy Mild ITCHING Verified 11/14/19 04:10 sulfamethoxazole Allergy Mild RASH Verified 11/14/19 04:10 trimethoprim Allergy Mild RASH Verified 11/14/19 04:10 Bactrim Allergy Unknown RASH Verified 12/01/17 16:09 Penicillins Allergy Unknown Hives Verified 11/14/19 04:10 pregabalin [From Lyrica] AdvReac Severe SUICIDAL Verified 11/14/19 04:10 topiramate AdvReac Severe SEIZURE Verified 11/14/19 04:10 LIKE ACTIVITY oxycodone AdvReac Mild ITCH Verified 11/14/19 04:10 Margarine Allergy Severe RASH Uncoded 11/14/19 04:10 Home Medications Home Medications Medication Instructions Recorded Confirmed Type valacyclovir 500 mg PO QAM 07/05/18 11/14/19 History diltiazem HCl [Cartia XT] 300 mg PO QAM 12/01/18 11/14/19 History folic acid 1 mg PO DAILY 08/17/19 11/14/19 History perphenazine 8 mg PO BID 08/17/19 11/14/19 History pantoprazole 40 mg PO QAM 30 Days #30 tab 08/21/19 11/14/19 Rx Spiriva Respimat 2 puff INHALATION DAILY 10/06/19 11/14/19 History hydroxyzine HCl 25 mg PO TID PRN 10/06/19 11/14/19 History albuterol sulfate 2 puff INHALATION Q4H PRN 11/14/19 11/14/19 History cholecalciferol (vitamin D3) 1,250 mcg PO WK 11/14/19 11/14/19 History furosemide 20 mg PO DAILY 11/14/19 11/14/19 History lactulose [Constulose] 15 ml PO TID 11/14/19 11/14/19 History magnesium oxide 400 mg PO BID 11/14/19 11/14/19 History midodrine 10 mg PO QID 11/14/19 11/14/19 History potassium chloride 20 meq PO BID 11/14/19 11/14/19 History warfarin 2.5 mg PO UD 11/14/19 11/14/19 History Patient History Medical History Alcohol induced acute pancreatitis (Resolved) Alcohol use disorder (Chronic) Atrial fibrillation (Chronic) paroxysmal Chronic generalized pain disorder (Chronic) COPD (chronic obstructive pulmonary disease) (Chronic) DM type 2 (diabetes mellitus, type 2) (Chronic) EtOH dependence (Inactive) Fatty liver (Chronic) History of opioid abuse (Chronic) HTN (hypertension) (Chronic) Hx of cocaine abuse Neuropathy (Chronic) Non-sustained ventricular tachycardia (Inactive) Obesity (Chronic) Paroxysmal atrial fibrillation Schizoaffective disorder (Chronic) Sciatic nerve disease (Chronic) Sleep apnea (Chronic) Tobacco use disorder (Chronic) Surgical History H/O foot surgery (Resolved) H/O ovarian cystectomy (Resolved) Family History Other Heart disease Kidney disease Social History Preferred Language: Ecuadorean Communication Ability: Unable Visual Impairment: No Limitations Low Raw Sugar Cutter Required: No Beliefs That Will Affect Care: None marital status: Single Current Living Situation: Family Current Living Situation Comment: lives with brother current occupational status: unemployed and disabled Other Information That Helps Us Care for You: No Feels Safe at Home: Yes Safety Concerns: Feels Safe At This Time Smoking Status: Current every day smoker Tobacco Type: cigarettes ; Cigarettes Per Day: 10 ; Do You Dip or Chew Tobacco: No ; Tobacco Cessation Education Requested by Patient: No Hx Alcohol Use: Yes Alcohol type: wine and hard liquor Hx Substance Use: No Results & Data Vital Signs (Past 12 Hours) Vital Signs Temp Pulse Resp BP Pulse Ox 11/16/19 12:34 37 C 108 H 30 H 113/60 100 11/16/19 12:04 37 C 109 H 28 H 117/62 100 11/16/19 11:49 37.1 C 109 H 23 105/51 L 100 11/16/19 11:33 37 C 115 H 23 117/58 L 94 11/16/19 11:28 37 C 11/16/19 11:12 36.9 C 112 H 25 H 119/59 L 11/16/19 11:10 113 H 36 H 11/16/19 10:42 37 C 113 H 30 H 125/60 11/16/19 10:27 37 C 110 H 125/59 L 11/16/19 10:15 108 H 11/16/19 10:11 37 C 112 H 28 H 125/60 94 11/16/19 10:00 110 H 11/16/19 09:52 109 H 130/72 11/16/19 09:45 109 H 11/16/19 09:30 109 H 11/16/19 09:15 100 H 11/16/19 09:00 105 H 68 L 11/16/19 08:52 97 H 120/68 93 11/16/19 08:45 94 H 11/16/19 08:30 99 H 11/16/19 08:15 97 H 11/16/19 08:00 100 H 11/16/19 07:59 96 H 113/60 11/16/19 07:58 97 H 11/16/19 07:53 101 H 66/38 L 11/16/19 07:41 103 H 28 H 33 L 11/16/19 07:40 37.2 C 100 H 122/59 L 94 11/16/19 07:00 101 H 100 11/16/19 06:40 101 H 118/65 99 11/16/19 06:02 110 H 101/85 100 11/16/19 06:00 37.1 C 113 H 96 11/16/19 05:40 99 H 99 11/16/19 05:13 97 H 137/42 L 100 11/16/19 05:00 37 C 94 H 99 11/16/19 04:40 97 H 99 11/16/19 04:00 94 H 99 11/16/19 03:56 89 28 H 100 11/16/19 03:40 95 H 87/20 L 100 11/16/19 03:00 37.1 C 97 H 99 11/16/19 02:40 88 120/44 L 99 11/16/19 02:00 37.3 C 85 99 11/16/19 01:40 86 100 Coding Level of Care Code 52887 Inpt Consult Level 2 Diagnoses Goals of care, counseling/discussion Z71.89 Hepatic encephalopathy K72.90 GI hemorrhage K92.2 GI bleed type/associated pathology: unspecified gastrointestinal hemorrhage type Liver disease due to alcohol K70.9 Time Spent (min) 50 Time Spent Midlevel A total of 50 minutes spent by this DUPLICATOR PUNCH SET UP OPERATOR in reviewing chart, speaking with rn mobile and palliative MD as well as IDT to discuss condition, goals and plan of care.
[2019-11-16 15:39] LABS: Cdiff Antigen Positive
[2019-11-16 15:41] LABS: Cdiff Toxin A+B Positive Cdiff Toxin (Negative)
--- NOTE | 2019-11-16 15:44 | Pharmacy Report ---
Pharmacy Glycemic Short Note 2 - Date of Service November 16, 2019 - Glycemic Short BSG Results (Last 24 hours): 11/15/19 11/15/19 11/15/19 15:52 15:56 19:21 Glucose 202 H POC Glucose (other) 196 H 167 H 11/15/19 11/16/19 11/16/19 20:40 00:22 04:14 Glucose 165 H 125 H POC Glucose (other) 145 H 11/16/19 11/16/19 07:42 11:55 Glucose POC Glucose (other) 119 H 105 H OUTPATIENT ANTIDIABETIC REGIMEN: * n/a * 4.9% 07/2019 ASSESSMENT: 11/15 * BSGs well controlled after insulin regimen instituted yesterday. Over the last 24 hrs 35 units SQ insulin were administered (20 units as basal). * Over the last 24 hrs, both phenylephrine and norepinephrine have been weaned, bicarb improved somewhat on chemistry. However UOP remains minimal, SCr did trend up, lactate still elevated and pt remains on vent with no improvement in encephalopathy. INR also trending upwards and plt count falling. * No enteral nutrition at this time due to concerns w/ placing NG tube * Given poor renal fxn and decompensated cirrhosis, pt is at risk for hypoglycemia - now that pressors weaned and BSGs in low 100s, will scale back scheduled Novolog doses and hold basal insulin at this time. 11/14 * Patient admitted with encephalopathy, decompensated liver failure, VENECIA, GIB, and possible sepsis. * Although patient does have a h/o DM, her last A1c was rather low and she does not use medications to treat DM * BSGs trending upwards today, likely due to worsening stressors * Unable to begin insulin drip due to severe hypokalemia. Will initiate basal / bolus regimen cautiously given risk of hypoglycemia in patient with hepatic failure. Lantus will be dosed BID per scale to lessen hypoglycemia risk. Will start Q 2 hr Novolog therapy to address rising BSGs with plans to convert to Q 4 hr scaled regimen once BSG less than 200. Initial regimen will be based upon total daily insulin needs of ~0.5units/kg/day while stressed. PLAN FOR INPATIENT GLYCEMIC CONTROL: * Monitor BSGs with iSTAT due to pressor use * Basal insulin * Hold * Bolus insulin Q 4 hrs per the following scale * 0 units if less than 120 * 1 units if BSG 120-140 * 2 units if BSG 141-180 * 3 units if BSG 181-220 * 4 units if BSG greater than 220
[2019-11-16] MEDS ORDERED: VANCOMYCIN HCL 500 MG/100 ML ENEMA PR ONE (17:30)
[2019-11-16 17:45] LABS: BUN Creatinine Ratio 9.9 (10-20); Calcium 7.7 mg/dl (8.5-10.1); Creatinine Clr Calc Pharmacy 16.1 ml/min; Est GFR (Non-African American) 10.4; Magnesium 1.7 mg/dl (1.8-2.4); Potassium 3.7 mmol/L (3.5-5.1)
[2019-11-16 23:16] LABS: Hematocrit (blood only) 21.9 % (37-47); Hemoglobin 7.8 g/dL (12.0-16.0)
[2019-11-17] MEDS: SODIUM BICARBONATE 8.4% 150 MEQ in WATER, STERILE 1,000 ML IV SCH (00:21)
[2019-11-17] MEDS: INSULIN ASPART 100 UNITS/ML 3 ML PEN SC SCH ×6 (00:25→20:53)
[2019-11-17] MEDS: ALBUMIN 25% 50 ML IV SCH ×4 (01:38→20:52)
[2019-11-17] MEDS: PANTOprazole 40 MG in DEXTROSE 5% 100 ML IV SCH (01:38)
[2019-11-17 02:10] LABS: Marijuana Quant, GCMS Urine 6 ng/mL (<5)
[2019-11-17 04:18] LABS: INR 4.1 (0.9-1.1); Prothrombin Time 39.8 Seconds (9.0-12.0)
[2019-11-17 04:19] LABS: Albumin Level 2.5 gm/dl (3.4-5.0); Calcium 7.7 mg/dl (8.5-10.1); Creatinine Clr Calc Pharmacy 16.1 ml/min; Est GFR (African American) 12.1; Est GFR (Non-African American) 10.5; Magnesium 1.6 mg/dl (1.8-2.4); Potassium 3.7 mmol/L (3.5-5.1)
[2019-11-17 04:21] LABS: Hematocrit (blood only) 20.9 % (37-47); Hemoglobin 7.5 g/dL (12.0-16.0); Mean Corpuscular Hemoglobin 32.3 pg (25-34); Mean Corpuscular Hgb Conc 35.9 g/dL (32-36); Mean Corpuscular Volume 90.1 fL (80-100); Mean Platelet Volume 9.6 fL (7.4-10.4); Platelet Count 56 K/uL (130-400); RDW Coefficient of Variation 18.7 % (11.5-14.5); RDW Standard Deviation 58.4 fL (36.4-46.3); Red Blood Count 2.32 M/uL (4.2-5.4); White Blood Count 11.39 K/uL (4.8-10.8)
[2019-11-17 04:24] LABS: Platelet Estimate Decreased (Normal)
[2019-11-17 04:38] LABS: Albumin Globulin Ratio 0.7 (0.9-2); Bilirubin,Total 9.4 mg/dl (0.2-1); Globulin 3.7 gm/dl (2.5-4.0); Phosphorus 2.7 mg/dl (2.5-4.9); Total Protein 6.2 gm/dl (6.4-8.2)
[2019-11-17 06:33] LABS: iSTAT Arterial Blood Gas HCO3 18 meg/L (19-24); iSTAT Arterial Blood Gas pCO2 28 mmHg (35-46); iSTAT Arterial Blood Gas pH 7.42 (7.35-7.45); iSTAT Arterial Blood Gas pO2 129 mmHg (80-95); iSTAT Carbon Dioxide 19 mmol/L (24-31); iSTAT FiO2 30 %
[2019-11-17 06:34] LABS: iSTAT Site Art Line
--- NOTE | 2019-11-17 07:03 | XRay Report ---
XR chest 1V portable CLINICAL HISTORY: f/u COMPARISON STUDY: Chest radiograph 11/16/2019. FINDINGS: Tip of endotracheal tube is 3.4 cm above the anya. There is no pneumothorax. Suspected sm all right and trace left pleural effusions are noted. Pulmonary vascular congestion without overt pul monary edema. No consolidation is identified. IMPRESSION: 1. Tip of endotracheal tube 3.4 cm above the anya. 2. Small right and trace left pleural effusions. 3. Pulmonary vascular congestion. ACT 112: Negative or not required by law. Electronically signed by: Fabrizio Johnson M.D. 11/17/2019 7:02 AM
[2019-11-17] MEDS: OCTREOTIDE ACETATE 500 MCG in 0.9 % SODIUM CHLORIDE 100 ML IV SCH (07:05)
[2019-11-17] MEDS ORDERED: MAGNESIUM SULFATE / D5W 1 GM/100 ML BAG IV ONE ×2 (07:39→10:45)
[2019-11-17] MEDS ORDERED: CALCIUM CHLORIDE 10% 1,000 MG in SODIUM CHLORIDE 0.9% 50 ML IV ONE (07:50)
[2019-11-17] MEDS: UMECLIDINIUM BROMIDE 62.5MCG/BLISTER 7 PUFFS/INHALER INH SCH (08:33)
[2019-11-17] MEDS: PANTOprazole 40 MG in SYRINGE 0 ML IV SCH ×2 (08:35→20:53)
[2019-11-17] MEDS: THIAMINE HCL 300 MG in SODIUM CHLORIDE 0.9% 50 ML IV SCH (08:36)
--- NOTE | 2019-11-17 08:36 | Gastroenterology Progress Note ---
Date of Service November 17, 2019 Assessment & Plan (1) Cirrhosis: 54 year old female patient with PMH alcoholic cirrhosis, portal vein thrombus, A. 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 No PO access, started on rectal vancomycin, notes displacement of endoclips, unsure how many but no increase bleeding reported. MELD trending up, 40. Would give an additional vancomycin enema today. Tomorrow, can consider NG/OG placement as will be full 3 days since EGD Can D/C octreotide from GIB standpoint Can convert to PO PPI BID Trend MELD labs Prognosis guarded I tried to contact brother this AM to discuss c.diff no answer Thank you for allowing us to participate in the care of this patient. Please call with any acute changes, questions or concerns. Please see addendum below with additional recommendation from my supervising physician. Present on Admission?: Yes Admission and Anticipated Discharge Date Admission Date: November 14, 2019 Supervising Physician Co-Signing Physician Notes I have seen and examined the patient and discussed the management with GIA Menendez. One unit yesterday, hgb relatively stable Vanc enema yesterday. No history given intubated, sedated. No overt gi bleeding. Agree with further plan of care as per Nishi's plan of care. Subjective Pt was seen and evaluated, chart reviewed. Stool for c.diff returned positive. Had one vanco enema. She tolerated this. Per nursing passed a few endoclips. Unsure on quantity. No change in scant rectal bleeding. Review of Systems Review of Systems: Pt remains sedated and intubated. Physical Exam Constitutional: + ill appearing; no acute distress Neck: trachea midline Gastrointestinal (Abdomen): Percussion/Palpation: abdomen soft and + ascites; abdomen nontender, no guarding and abdomen not rigid Skin: no rashes, warm and dry Results & Data ([facility]) Vital Signs (Past 12 Hours) Vital Signs Temp Pulse Resp BP Pulse Ox 11/17/19 07:24 88 11/17/19 07:00 36.6 C 94 H 99 11/17/19 06:53 89 87/48 L 100 11/17/19 06:00 86 100 11/17/19 05:55 87 100/57 L 100 11/17/19 05:53 86 20 100 11/17/19 05:52 87 100/57 L 100 11/17/19 05:00 36.6 C 87 100 11/17/19 04:52 88 90/58 L 97 11/17/19 04:00 36.5 C 88 100 11/17/19 03:52 90 99/60 L 100 11/17/19 03:00 36.6 C 88 98 11/17/19 02:52 88 96/59 L 100 11/17/19 02:06 90 20 100 11/17/19 02:00 36.7 C 88 100 11/17/19 01:52 89 96/62 L 100 11/17/19 01:00 37 C 93 H 100 11/17/19 00:52 92 H 104/62 100 11/17/19 00:00 36.6 C 94 H 99 11/16/19 23:52 96 H 113/67 98 11/16/19 23:19 94 H 24 99 11/16/19 23:00 37 C 96 H 97 11/16/19 22:52 93 H 99/63 L 98 11/16/19 22:00 94 H 91 11/16/19 21:52 99 H 107/73 99 11/16/19 21:34 99 H 121/64 67 L 11/16/19 21:00 36.9 C 97 H 98 11/16/19 20:52 97 H 111/72 94 Laboratory Results 11/17/19 11/17/19 11/17/19 Range/Units 08:30 06:20 03:50 WBC (4.8-10.8) K/uL RBC (4.2-5.4) M/uL Hgb (12.0-16.0) g/dL Hct (37-47) % MCV (80-100) fL MCH (25-34) pg MCHC (32-36) g/dL RDW Std Deviation (36.4-46.3) fL RDW Coeff of Ally (11.5-14.5) % Plt Count (130-400) K/uL MPV (7.4-10.4) fL Platelet Estimate (Normal) PT (9.0-12.0) Seconds INR (0.9-1.1) Sample Site Art Line POC pH 7.42 (7.35-7.45) POC pCO2 28 L (35-46) mmHg POC pO2 129 H (80-95) mmHg POC HCO3 18 L (19-24) rosario/L POC Total CO2 19 L (24-31) mmol/L POC Base Excess -7.0 (-9-1.8) rosario/L POC ABG O2 Sat 99.0 H (90-95) % Moncho Test NA O2 Delivery Device Ventilator POC O2 Rate 20 POC FiO2 30 % Tidal Volume 420 PEEP 5 Sodium (136-145) mmol/L Potassium (3.5-5.1) mmol/L Chloride (98-107) mmol/L Carbon Dioxide (21-32) mmol/L Anion Gap (3-11) BUN (7-18) mg/dl Creatinine (0.6-1.2) mg/dl Est Cr Clr Drug Dosing ml/min Est GFR ( Amer) Est GFR (Non-Af Amer) BUN/Creatinine Ratio (10-20) Glucose (70-99) mg/dl POC Glucose 80 (70-99) mg/dl POC Glucose (other) (70-99) mg/dl Lactate (0.4-2.0) mmol/L Calcium (8.5-10.1) mg/dl Ionized Calcium 1.00 L (1.12-1.32) mmol/L Phosphorus (2.5-4.9) mg/dl Magnesium (1.8-2.4) mg/dl Total Bilirubin (0.2-1) mg/dl AST (15-37) U/L ALT (12-78) U/L Alkaline Phosphatase (45-117) U/L Total Protein (6.4-8.2) gm/dl Albumin (3.4-5.0) gm/dl Globulin (2.5-4.0) gm/dl Albumin/Globulin Ratio (0.9-2) Procalcitonin (0-0.5) ng/ml Stl C. diff Tox B Gene (Neg) Stl C.difficile Tox A&B (Negative) U Marijuana THC Carboxy (<5) ng/mL Drug Screen Comment Blood Type Antibody Screen Crossmatch 11/17/19 11/17/19 11/17/19 Range/Units 03:50 03:50 03:50 WBC (4.8-10.8) K/uL RBC (4.2-5.4) M/uL Hgb (12.0-16.0) g/dL Hct (37-47) % MCV (80-100) fL MCH (25-34) pg MCHC (32-36) g/dL RDW Std Deviation (36.4-46.3) fL RDW Coeff of Ally (11.5-14.5) % Plt Count (130-400) K/uL MPV (7.4-10.4) fL Platelet Estimate (Normal) PT (9.0-12.0) Seconds INR (0.9-1.1) Sample Site POC pH (7.35-7.45) POC pCO2 (35-46) mmHg POC pO2 (80-95) mmHg POC HCO3 (19-24) rosario/L POC Total CO2 (24-31) mmol/L POC Base Excess (-9-1.8) rosario/L POC ABG O2 Sat (90-95) % Moncho Test O2 Delivery Device POC O2 Rate POC FiO2 % Tidal Volume PEEP Sodium 129 L (136-145) mmol/L Potassium 3.7 (3.5-5.1) mmol/L Chloride 94 L (98-107) mmol/L Carbon Dioxide 17 L (21-32) mmol/L Anion Gap 18.0 H (3-11) BUN 44 H (7-18) mg/dl Creatinine 4.44 H (0.6-1.2) mg/dl Est Cr Clr Drug Dosing 16.1 ml/min Est GFR ( Amer) 12.1 Est GFR (Non-Af Amer) 10.5 BUN/Creatinine Ratio 10.0 (10-20) Glucose 85 (70-99) mg/dl POC Glucose (70-99) mg/dl POC Glucose (other) (70-99) mg/dl Lactate 7.5 H* (0.4-2.0) mmol/L Calcium 7.7 L (8.5-10.1) mg/dl Ionized Calcium (1.12-1.32) mmol/L Phosphorus 2.7 (2.5-4.9) mg/dl Magnesium 1.6 L (1.8-2.4) mg/dl Total Bilirubin 9.4 H (0.2-1) mg/dl AST 21 (15-37) U/L ALT 7 L (12-78) U/L Alkaline Phosphatase 74 (45-117) U/L Total Protein 6.2 L (6.4-8.2) gm/dl Albumin 2.5 L (3.4-5.0) gm/dl Globulin 3.7 (2.5-4.0) gm/dl Albumin/Globulin Ratio 0.7 L (0.9-2) Procalcitonin 21.71 H (0-0.5) ng/ml Stl C. diff Tox B Gene (Neg) Stl C.difficile Tox A&B (Negative) U Marijuana THC Carboxy (<5) ng/mL Drug Screen Comment Blood Type Antibody Screen Crossmatch 11/17/19 11/17/19 11/17/19 Range/Units 03:50 03:50 00:22 WBC 11.39 H (4.8-10.8) K/uL RBC 2.32 L (4.2-5.4) M/uL Hgb 7.5 L (12.0-16.0) g/dL Hct 20.9 L* (37-47) % MCV 90.1 (80-100) fL MCH 32.3 (25-34) pg MCHC 35.9 (32-36) g/dL RDW Std Deviation 58.4 H (36.4-46.3) fL RDW Coeff of Ally 18.7 H (11.5-14.5) % Plt Count 56 L (130-400) K/uL MPV 9.6 (7.4-10.4) fL Platelet Estimate Decreased L (Normal) PT 39.8 H (9.0-12.0) Seconds INR 4.1 H (0.9-1.1) Sample Site POC pH (7.35-7.45) POC pCO2 (35-46) mmHg POC pO2 (80-95) mmHg POC HCO3 (19-24) rosario/L POC Total CO2 (24-31) mmol/L POC Base Excess (-9-1.8) rosario/L POC ABG O2 Sat (90-95) % Moncho Test O2 Delivery Device POC O2 Rate POC FiO2 % Tidal Volume PEEP Sodium (136-145) mmol/L Potassium (3.5-5.1) mmol/L Chloride (98-107) mmol/L Carbon Dioxide (21-32) mmol/L Anion Gap (3-11) BUN (7-18) mg/dl Creatinine (0.6-1.2) mg/dl Est Cr Clr Drug Dosing ml/min Est GFR ( Amer) Est GFR (Non-Af Amer) BUN/Creatinine Ratio (10-20) Glucose (70-99) mg/dl POC Glucose 80 (70-99) mg/dl POC Glucose (other) (70-99) mg/dl Lactate (0.4-2.0) mmol/L Calcium (8.5-10.1) mg/dl Ionized Calcium (1.12-1.32) mmol/L Phosphorus (2.5-4.9) mg/dl Magnesium (1.8-2.4) mg/dl Total Bilirubin (0.2-1) mg/dl AST (15-37) U/L ALT (12-78) U/L Alkaline Phosphatase (45-117) U/L Total Protein (6.4-8.2) gm/dl Albumin (3.4-5.0) gm/dl Globulin (2.5-4.0) gm/dl Albumin/Globulin Ratio (0.9-2) Procalcitonin (0-0.5) ng/ml Stl C. diff Tox B Gene (Neg) Stl C.difficile Tox A&B (Negative) U Marijuana THC Carboxy (<5) ng/mL Drug Screen Comment Blood Type Antibody Screen Crossmatch 11/16/19 11/16/19 11/16/19 Range/Units 23:05 20:35 19:54 WBC (4.8-10.8) K/uL RBC (4.2-5.4) M/uL Hgb 7.8 L (12.0-16.0) g/dL Hct 21.9 L (37-47) % MCV (80-100) fL MCH (25-34) pg MCHC (32-36) g/dL RDW Std Deviation (36.4-46.3) fL RDW Coeff of Ally (11.5-14.5) % Plt Count (130-400) K/uL MPV (7.4-10.4) fL Platelet Estimate (Normal) PT (9.0-12.0) Seconds INR (0.9-1.1) Sample Site POC pH (7.35-7.45) POC pCO2 (35-46) mmHg POC pO2 (80-95) mmHg POC HCO3 (19-24) rosario/L POC Total CO2 (24-31) mmol/L POC Base Excess (-9-1.8) rosario/L POC ABG O2 Sat (90-95) % Moncho Test O2 Delivery Device POC O2 Rate POC FiO2 % Tidal Volume PEEP Sodium (136-145) mmol/L Potassium (3.5-5.1) mmol/L Chloride (98-107) mmol/L Carbon Dioxide (21-32) mmol/L Anion Gap (3-11) BUN (7-18) mg/dl Creatinine (0.6-1.2) mg/dl Est Cr Clr Drug Dosing ml/min Est GFR ( Amer) Est GFR (Non-Af Amer) BUN/Creatinine Ratio (10-20) Glucose (70-99) mg/dl POC Glucose 88 (70-99) mg/dl POC Glucose (other) (70-99) mg/dl Lactate 9.6 H* (0.4-2.0) mmol/L Calcium (8.5-10.1) mg/dl Ionized Calcium (1.12-1.32) mmol/L Phosphorus (2.5-4.9) mg/dl Magnesium (1.8-2.4) mg/dl Total Bilirubin (0.2-1) mg/dl AST (15-37) U/L ALT (12-78) U/L Alkaline Phosphatase (45-117) U/L Total Protein (6.4-8.2) gm/dl Albumin (3.4-5.0) gm/dl Globulin (2.5-4.0) gm/dl Albumin/Globulin Ratio (0.9-2) Procalcitonin (0-0.5) ng/ml Stl C. diff Tox B Gene (Neg) Stl C.difficile Tox A&B (Negative) U Marijuana THC Carboxy (<5) ng/mL Drug Screen Comment Blood Type Antibody Screen Crossmatch 11/16/19 11/16/19 11/16/19 Range/Units 17:08 17:08 16:15 WBC (4.8-10.8) K/uL RBC (4.2-5.4) M/uL Hgb (12.0-16.0) g/dL Hct (37-47) % MCV (80-100) fL MCH (25-34) pg MCHC (32-36) g/dL RDW Std Deviation (36.4-46.3) fL RDW Coeff of Ally (11.5-14.5) % Plt Count (130-400) K/uL MPV (7.4-10.4) fL Platelet Estimate (Normal) PT (9.0-12.0) Seconds INR (0.9-1.1) Sample Site POC pH (7.35-7.45) POC pCO2 (35-46) mmHg POC pO2 (80-95) mmHg POC HCO3 (19-24) rosario/L POC Total CO2 (24-31) mmol/L POC Base Excess (-9-1.8) rosario/L POC ABG O2 Sat (90-95) % Moncho Test O2 Delivery Device POC O2 Rate POC FiO2 % Tidal Volume PEEP Sodium 130 L (136-145) mmol/L Potassium 3.7 (3.5-5.1) mmol/L Chloride 97 L (98-107) mmol/L Carbon Dioxide 13 L (21-32) mmol/L Anion Gap 20.0 H (3-11) BUN 44 H (7-18) mg/dl Creatinine 4.46 H (0.6-1.2) mg/dl Est Cr Clr Drug Dosing 16.1 ml/min Est GFR ( Amer) 12.0 Est GFR (Non-Af Amer) 10.4 BUN/Creatinine Ratio 9.9 L (10-20) Glucose 94 (70-99) mg/dl POC Glucose (70-99) mg/dl POC Glucose (other) 97 (70-99) mg/dl Lactate (0.4-2.0) mmol/L Calcium 7.7 L (8.5-10.1) mg/dl Ionized Calcium 1.00 L (1.12-1.32) mmol/L Phosphorus (2.5-4.9) mg/dl Magnesium 1.7 L (1.8-2.4) mg/dl Total Bilirubin (0.2-1) mg/dl AST (15-37) U/L ALT (12-78) U/L Alkaline Phosphatase (45-117) U/L Total Protein (6.4-8.2) gm/dl Albumin (3.4-5.0) gm/dl Globulin (2.5-4.0) gm/dl Albumin/Globulin Ratio (0.9-2) Procalcitonin (0-0.5) ng/ml Stl C. diff Tox B Gene (Neg) Stl C.difficile Tox A&B (Negative) U Marijuana THC Carboxy (<5) ng/mL Drug Screen Comment Blood Type Antibody Screen Crossmatch 11/16/19 11/16/19 11/16/19 Range/Units 13:50 11:55 11:52 WBC (4.8-10.8) K/uL RBC (4.2-5.4) M/uL Hgb (12.0-16.0) g/dL Hct (37-47) % MCV (80-100) fL MCH (25-34) pg MCHC (32-36) g/dL RDW Std Deviation (36.4-46.3) fL RDW Coeff of Ally (11.5-14.5) % Plt Count (130-400) K/uL MPV (7.4-10.4) fL Platelet Estimate (Normal) PT (9.0-12.0) Seconds INR (0.9-1.1) Sample Site POC pH (7.35-7.45) POC pCO2 (35-46) mmHg POC pO2 (80-95) mmHg POC HCO3 (19-24) rosario/L POC Total CO2 (24-31) mmol/L POC Base Excess (-9-1.8) rosario/L POC ABG O2 Sat (90-95) % Moncho Test O2 Delivery Device POC O2 Rate POC FiO2 % Tidal Volume PEEP Sodium (136-145) mmol/L Potassium (3.5-5.1) mmol/L Chloride (98-107) mmol/L Carbon Dioxide (21-32) mmol/L Anion Gap (3-11) BUN (7-18) mg/dl Creatinine (0.6-1.2) mg/dl Est Cr Clr Drug Dosing ml/min Est GFR ( Amer) Est GFR (Non-Af Amer) BUN/Creatinine Ratio (10-20) Glucose (70-99) mg/dl POC Glucose (70-99) mg/dl POC Glucose (other) 105 H (70-99) mg/dl Lactate 10.9 H* (0.4-2.0) mmol/L Calcium (8.5-10.1) mg/dl Ionized Calcium (1.12-1.32) mmol/L Phosphorus (2.5-4.9) mg/dl Magnesium (1.8-2.4) mg/dl Total Bilirubin (0.2-1) mg/dl AST (15-37) U/L ALT (12-78) U/L Alkaline Phosphatase (45-117) U/L Total Protein (6.4-8.2) gm/dl Albumin (3.4-5.0) gm/dl Globulin (2.5-4.0) gm/dl Albumin/Globulin Ratio (0.9-2) Procalcitonin (0-0.5) ng/ml Stl C. diff Tox B Gene Positive Cdiff Gene H (Neg) Stl C.difficile Tox A&B Positive Cdiff Toxin A* (Negative) U Marijuana THC Carboxy (<5) ng/mL Drug Screen Comment Blood Type Antibody Screen Crossmatch 11/14/19 11/14/19 Range/Units 10:15 04:19 WBC (4.8-10.8) K/uL RBC (4.2-5.4) M/uL Hgb (12.0-16.0) g/dL Hct (37-47) % MCV (80-100) fL MCH (25-34) pg MCHC (32-36) g/dL RDW Std Deviation (36.4-46.3) fL RDW Coeff of Ally (11.5-14.5) % Plt Count (130-400) K/uL MPV (7.4-10.4) fL Platelet Estimate (Normal) PT (9.0-12.0) Seconds INR (0.9-1.1) Sample Site POC pH (7.35-7.45) POC pCO2 (35-46) mmHg POC pO2 (80-95) mmHg POC HCO3 (19-24) rosario/L POC Total CO2 (24-31) mmol/L POC Base Excess (-9-1.8) rosario/L POC ABG O2 Sat (90-95) % Moncho Test O2 Delivery Device POC O2 Rate POC FiO2 % Tidal Volume PEEP Sodium (136-145) mmol/L Potassium (3.5-5.1) mmol/L Chloride (98-107) mmol/L Carbon Dioxide (21-32) mmol/L Anion Gap (3-11) BUN (7-18) mg/dl Creatinine (0.6-1.2) mg/dl Est Cr Clr Drug Dosing ml/min Est GFR ( Amer) Est GFR (Non-Af Amer) BUN/Creatinine Ratio (10-20) Glucose (70-99) mg/dl POC Glucose (70-99) mg/dl POC Glucose (other) (70-99) mg/dl Lactate (0.4-2.0) mmol/L Calcium (8.5-10.1) mg/dl Ionized Calcium (1.12-1.32) mmol/L Phosphorus (2.5-4.9) mg/dl Magnesium (1.8-2.4) mg/dl Total Bilirubin (0.2-1) mg/dl AST (15-37) U/L ALT (12-78) U/L Alkaline Phosphatase (45-117) U/L Total Protein (6.4-8.2) gm/dl Albumin (3.4-5.0) gm/dl Globulin (2.5-4.0) gm/dl Albumin/Globulin Ratio (0.9-2) Procalcitonin (0-0.5) ng/ml Stl C. diff Tox B Gene (Neg) Stl C.difficile Tox A&B (Negative) U Marijuana THC Carboxy 6 H (<5) ng/mL Drug Screen Comment SEE NOTE Blood Type O Positive Antibody Screen NEGATIVE Crossmatch See Detail
[2019-11-17] MEDS: FOLIC ACID 1 MG in SYRINGE 9.8 ML IV SCH (08:37)
--- NOTE | 2019-11-17 09:35 | Critical Care Progress Note ---
Date of Service November 17, 2019 Assessment & Plan (1) Hepatic encephalopathy: (1) Admitted to intensive care unit: Reason Critically Ill: 54-year-old female with altered mental status in the setting of presumed upper GI bleed with supratherapeutic INR requiring close hemodynamic monitoring in the setting of above. NEURO - Acute encephalopathy -Hepatic encephalopathy: Elevated ammonia -Passing stools secondary to GI bleeding -Rifaximin: 550 twice daily: Holding secondary to lack of NG access secondary to recent banding -Lactulose 3 times daily as needed titrate to 3 bowel movements daily: Holding secondary to lack of NG access, retention enema also relatively contraindicated -Suspect metabolic component: Sepsis - Holding all sedatives, at risk for cerebral edema -Osmolality minimally elevated CARDIAC/VASCULAR - Hypotension: Sepsis versus type II ischemia: Mild improvement -Elevated troponin: Improving -With normal echocardiogram this is likely demand ischemia, sepsis related myocardial dysfunction, acute kidney injury -Transfusion hemoglobin still 7 -Repeat EKG no particular ST changes will remain at 7 for goal hemoglobin Paroxysmal A. fib: Currently normal sinus rhythm -Currently anticoagulated with Coumadin for long-term anticoagulation -Will consider anticoagulation as she gets further from her acute blood loss anemia -Risk of bleeding outweighs risk of thrombosis secondary to A. 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 Not candidate for transplant Not candidate for TIPS given likely serna of infection. NG access: Consider course off placement tomorrow status post 3 days from invasive banding/EGD RENAL/LYTES - Acute renal failure: Creatinine appears to have nadired -Possible hepatorenal syndrome: Probable ATN Lactic acidosis (metabolic high gap acidosis): Mild improvement -Bicarb infusion: Discontinued -Thiamine repletion: 300 mg 3 times daily x6 doses then 100 mg daily Nephrology consulted -If patient requires renal replacement therapy would highly consider CVVH given vasoactive medication requirements. Azotemia: Secondary to chronic kidney disease and GI bleeding Hypokalemia: Improved Hypomagnesemia: Improved -1 g ordered Hypocalcemia: Improved - Narvaez to be placed - Strict I&Os. ENDO - DMII Hyperglycemia: Resolved HEME - Acute blood loss anemia: 2/2 GIB. Supratherapeutic INR -Patient has received multiple doses of IV vitamin K without response Trend H&H. ID - SBP Prophylaxis: She will be treated for 7 days duration of therapy with a combination of ertapenem de-escalated to Rocephin Urine culture does not meet threshold for colony-forming units to be considered acute urinary tract infection -The Rocephin coverage for SBP should be adequate for urinary pathogens Sepsis secondary to C. difficile colitis -IV Flagyl in addition to rectal vancomycin, unable to give oral vancomycin secondary to recent banding of esophageal varices in the setting of life-threatening hemorrhage -She will need total treatment of 14 days minimum past the last day of administration of Rocephin -I would consider this to be maximum therapy, patient would not likely survive the operation of colectomy: -Devlin calculator postoperative mortality in patients with cirrhosis has 7-day probability of mortality at 75% 30-day mortality and longer greater than 99% LINES/IV ACCESS - Femoral central venous access, femoral arterial line placed 11/15/2019 DVT PROPHYLAXIS - Hold on chemoprophylaxis 2/2 GIB. SCDs CODE STATUS: Full -Palliative care consulted for goals of care -Family members have been somewhat difficult to contact. Nursing staff reports discussing case with relative: Elizabeth who reports that the patient would not want to continue active treatment. -It was reported Elizabeth will be in contact with Donis, multiple members have attempted to contact Donis: Palliative care case tobi cruz and nursing staff. -I was able to discuss the case with Donis: He reported that he was able to talk with additional family members and felt the ultimate decisions of medical care was largely falling on his shoulders. I updated him regarding the minimal improvements in certain complication of C. difficile colitis. I also discussed probability of recurrence and mortality rates if she were to need emergent surgery (colectomy for fulminant C. difficile colitis) at this time we will continue current level of care and we will attempt to have another conversation at 1 PM tomorrow as Donis feels that would have enough time to discuss the condition with family members as well as discussing possible withdrawal of life-sustaining procedures. 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 difficile enteritis: Admission and Anticipated Discharge Date Admission Date: November 14, 2019 Subjective Overnight vasoactive medication was able to be weaned off however blood pressure has been waxing and waning. Noted to be C. difficile positive, has received vancomycin enema. No NG access at this time yet Review of Systems Review of Systems: Unobtainable due to endotracheal tube Physical Exam Physical Exam: General: Unresponsive, has cough, breathing over vent Skin: Cool, dry, diffuse edema Head: Atraumatic Ears, nose, mouth and throat: obscured by endotracheal tube, dry mucous membranes Cardiovascular: sluggish capillary refill Respiratory: no respiratory distress, scattered rhonchi Gastrointestinal: No organomegaly, presumptive ascites, nonrigid Musculoskeletal: No deformity Results & Data Results & Data ([facility]) Vital Signs (Past 12 Hours) Vital Signs Temp Pulse Resp BP Pulse Ox 11/17/19 07:24 88 11/17/19 07:00 36.6 C 93 H 20 100 11/17/19 06:53 89 87/48 L 100 11/17/19 06:00 86 100 11/17/19 05:55 87 100/57 L 100 11/17/19 05:53 86 20 100 11/17/19 05:52 87 100/57 L 100 11/17/19 05:00 36.6 C 87 100 11/17/19 04:52 88 90/58 L 97 11/17/19 04:00 36.5 C 88 100 11/17/19 03:52 90 99/60 L 100 11/17/19 03:00 36.6 C 88 98 11/17/19 02:52 88 96/59 L 100 11/17/19 02:06 90 20 100 11/17/19 02:00 36.7 C 88 100 11/17/19 01:52 89 96/62 L 100 11/17/19 01:00 37 C 93 H 100 11/17/19 00:52 92 H 104/62 100 11/17/19 00:00 36.6 C 94 H 99 11/16/19 23:52 96 H 113/67 98 11/16/19 23:19 94 H 24 99 11/16/19 23:00 37 C 96 H 97 11/16/19 22:52 93 H 99/63 L 98 11/16/19 22:00 94 H 91 11/16/19 21:52 99 H 107/73 99 11/16/19 21:34 99 H 121/64 67 L Laboratory Results 11/17/19 11/17/19 11/17/19 Range/Units 12:02 08:30 06:20 WBC (4.8-10.8) K/uL RBC (4.2-5.4) M/uL Hgb (12.0-16.0) g/dL Hct (37-47) % MCV (80-100) fL MCH (25-34) pg MCHC (32-36) g/dL RDW Std Deviation (36.4-46.3) fL RDW Coeff of Ally (11.5-14.5) % Plt Count (130-400) K/uL MPV (7.4-10.4) fL Platelet Estimate (Normal) PT (9.0-12.0) Seconds INR (0.9-1.1) Sample Site Art Line POC pH 7.42 (7.35-7.45) POC pCO2 28 L (35-46) mmHg POC pO2 129 H (80-95) mmHg POC HCO3 18 L (19-24) rosario/L POC Total CO2 19 L (24-31) mmol/L POC Base Excess -7.0 (-9-1.8) rosario/L POC ABG O2 Sat 99.0 H (90-95) % Moncho Test NA O2 Delivery Device Ventilator POC O2 Rate 20 POC FiO2 30 % Tidal Volume 420 PEEP 5 Sodium (136-145) mmol/L Potassium (3.5-5.1) mmol/L Chloride (98-107) mmol/L Carbon Dioxide (21-32) mmol/L Anion Gap (3-11) BUN (7-18) mg/dl Creatinine (0.6-1.2) mg/dl Est Cr Clr Drug Dosing ml/min Est GFR ( Amer) Est GFR (Non-Af Amer) BUN/Creatinine Ratio (10-20) Glucose (70-99) mg/dl POC Glucose 83 80 (70-99) mg/dl POC Glucose (other) (70-99) mg/dl Lactate (0.4-2.0) mmol/L Calcium (8.5-10.1) mg/dl Ionized Calcium (1.12-1.32) mmol/L Phosphorus (2.5-4.9) mg/dl Magnesium (1.8-2.4) mg/dl Total Bilirubin (0.2-1) mg/dl AST (15-37) U/L ALT (12-78) U/L Alkaline Phosphatase (45-117) U/L Total Protein (6.4-8.2) gm/dl Albumin (3.4-5.0) gm/dl Globulin (2.5-4.0) gm/dl Albumin/Globulin Ratio (0.9-2) Procalcitonin (0-0.5) ng/ml Stl C. diff Tox B Gene (Neg) Stl C.difficile Tox A&B (Negative) U Marijuana THC Carboxy (<5) ng/mL Drug Screen Comment Crossmatch 11/17/19 11/17/19 11/17/19 Range/Units 03:50 03:50 03:50 WBC (4.8-10.8) K/uL RBC (4.2-5.4) M/uL Hgb (12.0-16.0) g/dL Hct (37-47) % MCV (80-100) fL MCH (25-34) pg MCHC (32-36) g/dL RDW Std Deviation (36.4-46.3) fL RDW Coeff of Ally (11.5-14.5) % Plt Count (130-400) K/uL MPV (7.4-10.4) fL Platelet Estimate (Normal) PT (9.0-12.0) Seconds INR (0.9-1.1) Sample Site POC pH (7.35-7.45) POC pCO2 (35-46) mmHg POC pO2 (80-95) mmHg POC HCO3 (19-24) rosario/L POC Total CO2 (24-31) mmol/L POC Base Excess (-9-1.8) rosario/L POC ABG O2 Sat (90-95) % Moncho Test O2 Delivery Device POC O2 Rate POC FiO2 % Tidal Volume PEEP Sodium (136-145) mmol/L Potassium (3.5-5.1) mmol/L Chloride (98-107) mmol/L Carbon Dioxide (21-32) mmol/L Anion Gap (3-11) BUN (7-18) mg/dl Creatinine (0.6-1.2) mg/dl Est Cr Clr Drug Dosing ml/min Est GFR ( Amer) Est GFR (Non-Af Amer) BUN/Creatinine Ratio (10-20) Glucose (70-99) mg/dl POC Glucose (70-99) mg/dl POC Glucose (other) (70-99) mg/dl Lactate 7.5 H* (0.4-2.0) mmol/L Calcium (8.5-10.1) mg/dl Ionized Calcium 1.00 L (1.12-1.32) mmol/L Phosphorus (2.5-4.9) mg/dl Magnesium (1.8-2.4) mg/dl Total Bilirubin (0.2-1) mg/dl AST (15-37) U/L ALT (12-78) U/L Alkaline Phosphatase (45-117) U/L Total Protein (6.4-8.2) gm/dl Albumin (3.4-5.0) gm/dl Globulin (2.5-4.0) gm/dl Albumin/Globulin Ratio (0.9-2) Procalcitonin 21.71 H (0-0.5) ng/ml Stl C. diff Tox B Gene (Neg) Stl C.difficile Tox A&B (Negative) U Marijuana THC Carboxy (<5) ng/mL Drug Screen Comment Crossmatch 11/17/19 11/17/19 11/17/19 Range/Units 03:50 03:50 03:50 WBC 11.39 H (4.8-10.8) K/uL RBC 2.32 L (4.2-5.4) M/uL Hgb 7.5 L (12.0-16.0) g/dL Hct 20.9 L* (37-47) % MCV 90.1 (80-100) fL MCH 32.3 (25-34) pg MCHC 35.9 (32-36) g/dL RDW Std Deviation 58.4 H (36.4-46.3) fL RDW Coeff of Ally 18.7 H (11.5-14.5) % Plt Count 56 L (130-400) K/uL MPV 9.6 (7.4-10.4) fL Platelet Estimate Decreased L (Normal) PT 39.8 H (9.0-12.0) Seconds INR 4.1 H (0.9-1.1) Sample Site POC pH (7.35-7.45) POC pCO2 (35-46) mmHg POC pO2 (80-95) mmHg POC HCO3 (19-24) rosario/L POC Total CO2 (24-31) mmol/L POC Base Excess (-9-1.8) rosario/L POC ABG O2 Sat (90-95) % Moncho Test O2 Delivery Device POC O2 Rate POC FiO2 % Tidal Volume PEEP Sodium 129 L (136-145) mmol/L Potassium 3.7 (3.5-5.1) mmol/L Chloride 94 L (98-107) mmol/L Carbon Dioxide 17 L (21-32) mmol/L Anion Gap 18.0 H (3-11) BUN 44 H (7-18) mg/dl Creatinine 4.44 H (0.6-1.2) mg/dl Est Cr Clr Drug Dosing 16.1 ml/min Est GFR ( Amer) 12.1 Est GFR (Non-Af Amer) 10.5 BUN/Creatinine Ratio 10.0 (10-20) Glucose 85 (70-99) mg/dl POC Glucose (70-99) mg/dl POC Glucose (other) (70-99) mg/dl Lactate (0.4-2.0) mmol/L Calcium 7.7 L (8.5-10.1) mg/dl Ionized Calcium (1.12-1.32) mmol/L Phosphorus 2.7 (2.5-4.9) mg/dl Magnesium 1.6 L (1.8-2.4) mg/dl Total Bilirubin 9.4 H (0.2-1) mg/dl AST 21 (15-37) U/L ALT 7 L (12-78) U/L Alkaline Phosphatase 74 (45-117) U/L Total Protein 6.2 L (6.4-8.2) gm/dl Albumin 2.5 L (3.4-5.0) gm/dl Globulin 3.7 (2.5-4.0) gm/dl Albumin/Globulin Ratio 0.7 L (0.9-2) Procalcitonin (0-0.5) ng/ml Stl C. diff Tox B Gene (Neg) Stl C.difficile Tox A&B (Negative) U Marijuana THC Carboxy (<5) ng/mL Drug Screen Comment Crossmatch 11/17/19 11/16/19 11/16/19 Range/Units 00:22 23:05 20:35 WBC (4.8-10.8) K/uL RBC (4.2-5.4) M/uL Hgb 7.8 L (12.0-16.0) g/dL Hct 21.9 L (37-47) % MCV (80-100) fL MCH (25-34) pg MCHC (32-36) g/dL RDW Std Deviation (36.4-46.3) fL RDW Coeff of Ally (11.5-14.5) % Plt Count (130-400) K/uL MPV (7.4-10.4) fL Platelet Estimate (Normal) PT (9.0-12.0) Seconds INR (0.9-1.1) Sample Site POC pH (7.35-7.45) POC pCO2 (35-46) mmHg POC pO2 (80-95) mmHg POC HCO3 (19-24) rosario/L POC Total CO2 (24-31) mmol/L POC Base Excess (-9-1.8) rosario/L POC ABG O2 Sat (90-95) % Moncho Test O2 Delivery Device POC O2 Rate POC FiO2 % Tidal Volume PEEP Sodium (136-145) mmol/L Potassium (3.5-5.1) mmol/L Chloride (98-107) mmol/L Carbon Dioxide (21-32) mmol/L Anion Gap (3-11) BUN (7-18) mg/dl Creatinine (0.6-1.2) mg/dl Est Cr Clr Drug Dosing ml/min Est GFR ( Amer) Est GFR (Non-Af Amer) BUN/Creatinine Ratio (10-20) Glucose (70-99) mg/dl POC Glucose 80 88 (70-99) mg/dl POC Glucose (other) (70-99) mg/dl Lactate (0.4-2.0) mmol/L Calcium (8.5-10.1) mg/dl Ionized Calcium (1.12-1.32) mmol/L Phosphorus (2.5-4.9) mg/dl Magnesium (1.8-2.4) mg/dl Total Bilirubin (0.2-1) mg/dl AST (15-37) U/L ALT (12-78) U/L Alkaline Phosphatase (45-117) U/L Total Protein (6.4-8.2) gm/dl Albumin (3.4-5.0) gm/dl Globulin (2.5-4.0) gm/dl Albumin/Globulin Ratio (0.9-2) Procalcitonin (0-0.5) ng/ml Stl C. diff Tox B Gene (Neg) Stl C.difficile Tox A&B (Negative) U Marijuana THC Carboxy (<5) ng/mL Drug Screen Comment Crossmatch 11/16/19 11/16/19 11/16/19 Range/Units 19:54 17:08 17:08 WBC (4.8-10.8) K/uL RBC (4.2-5.4) M/uL Hgb (12.0-16.0) g/dL Hct (37-47) % MCV (80-100) fL MCH (25-34) pg MCHC (32-36) g/dL RDW Std Deviation (36.4-46.3) fL RDW Coeff of Ally (11.5-14.5) % Plt Count (130-400) K/uL MPV (7.4-10.4) fL Platelet Estimate (Normal) PT (9.0-12.0) Seconds INR (0.9-1.1) Sample Site POC pH (7.35-7.45) POC pCO2 (35-46) mmHg POC pO2 (80-95) mmHg POC HCO3 (19-24) rosario/L POC Total CO2 (24-31) mmol/L POC Base Excess (-9-1.8) rosario/L POC ABG O2 Sat (90-95) % Moncho Test O2 Delivery Device POC O2 Rate POC FiO2 % Tidal Volume PEEP Sodium 130 L (136-145) mmol/L Potassium 3.7 (3.5-5.1) mmol/L Chloride 97 L (98-107) mmol/L Carbon Dioxide 13 L (21-32) mmol/L Anion Gap 20.0 H (3-11) BUN 44 H (7-18) mg/dl Creatinine 4.46 H (0.6-1.2) mg/dl Est Cr Clr Drug Dosing 16.1 ml/min Est GFR ( Amer) 12.0 Est GFR (Non-Af Amer) 10.4 BUN/Creatinine Ratio 9.9 L (10-20) Glucose 94 (70-99) mg/dl POC Glucose (70-99) mg/dl POC Glucose (other) (70-99) mg/dl Lactate 9.6 H* (0.4-2.0) mmol/L Calcium 7.7 L (8.5-10.1) mg/dl Ionized Calcium 1.00 L (1.12-1.32) mmol/L Phosphorus (2.5-4.9) mg/dl Magnesium 1.7 L (1.8-2.4) mg/dl Total Bilirubin (0.2-1) mg/dl AST (15-37) U/L ALT (12-78) U/L Alkaline Phosphatase (45-117) U/L Total Protein (6.4-8.2) gm/dl Albumin (3.4-5.0) gm/dl Globulin (2.5-4.0) gm/dl Albumin/Globulin Ratio (0.9-2) Procalcitonin (0-0.5) ng/ml Stl C. diff Tox B Gene (Neg) Stl C.difficile Tox A&B (Negative) U Marijuana THC Carboxy (<5) ng/mL Drug Screen Comment Crossmatch 11/16/19 11/16/19 11/14/19 Range/Units 16:15 13:50 10:15 WBC (4.8-10.8) K/uL RBC (4.2-5.4) M/uL Hgb (12.0-16.0) g/dL Hct (37-47) % MCV (80-100) fL MCH (25-34) pg MCHC (32-36) g/dL RDW Std Deviation (36.4-46.3) fL RDW Coeff of Ally (11.5-14.5) % Plt Count (130-400) K/uL MPV (7.4-10.4) fL Platelet Estimate (Normal) PT (9.0-12.0) Seconds INR (0.9-1.1) Sample Site POC pH (7.35-7.45) POC pCO2 (35-46) mmHg POC pO2 (80-95) mmHg POC HCO3 (19-24) rosario/L POC Total CO2 (24-31) mmol/L POC Base Excess (-9-1.8) rosario/L POC ABG O2 Sat (90-95) % Moncho Test O2 Delivery Device POC O2 Rate POC FiO2 % Tidal Volume PEEP Sodium (136-145) mmol/L Potassium (3.5-5.1) mmol/L Chloride (98-107) mmol/L Carbon Dioxide (21-32) mmol/L Anion Gap (3-11) BUN (7-18) mg/dl Creatinine (0.6-1.2) mg/dl Est Cr Clr Drug Dosing ml/min Est GFR ( Amer) Est GFR (Non-Af Amer) BUN/Creatinine Ratio (10-20) Glucose (70-99) mg/dl POC Glucose (70-99) mg/dl POC Glucose (other) 97 (70-99) mg/dl Lactate (0.4-2.0) mmol/L Calcium (8.5-10.1) mg/dl Ionized Calcium (1.12-1.32) mmol/L Phosphorus (2.5-4.9) mg/dl Magnesium (1.8-2.4) mg/dl Total Bilirubin (0.2-1) mg/dl AST (15-37) U/L ALT (12-78) U/L Alkaline Phosphatase (45-117) U/L Total Protein (6.4-8.2) gm/dl Albumin (3.4-5.0) gm/dl Globulin (2.5-4.0) gm/dl Albumin/Globulin Ratio (0.9-2) Procalcitonin (0-0.5) ng/ml Stl C. diff Tox B Gene Positive Cdiff Gene H (Neg) Stl C.difficile Tox A&B Positive Cdiff Toxin A* (Negative) U Marijuana THC Carboxy 6 H (<5) ng/mL Drug Screen Comment SEE NOTE Crossmatch 11/14/19 Range/Units 04:19 WBC (4.8-10.8) K/uL RBC (4.2-5.4) M/uL Hgb (12.0-16.0) g/dL Hct (37-47) % MCV (80-100) fL MCH (25-34) pg MCHC (32-36) g/dL RDW Std Deviation (36.4-46.3) fL RDW Coeff of Ally (11.5-14.5) % Plt Count (130-400) K/uL MPV (7.4-10.4) fL Platelet Estimate (Normal) PT (9.0-12.0) Seconds INR (0.9-1.1) Sample Site POC pH (7.35-7.45) POC pCO2 (35-46) mmHg POC pO2 (80-95) mmHg POC HCO3 (19-24) rosario/L POC Total CO2 (24-31) mmol/L POC Base Excess (-9-1.8) rosario/L POC ABG O2 Sat (90-95) % Moncho Test O2 Delivery Device POC O2 Rate POC FiO2 % Tidal Volume PEEP Sodium (136-145) mmol/L Potassium (3.5-5.1) mmol/L Chloride (98-107) mmol/L Carbon Dioxide (21-32) mmol/L Anion Gap (3-11) BUN (7-18) mg/dl Creatinine (0.6-1.2) mg/dl Est Cr Clr Drug Dosing ml/min Est GFR ( Amer) Est GFR (Non-Af Amer) BUN/Creatinine Ratio (10-20) Glucose (70-99) mg/dl POC Glucose (70-99) mg/dl POC Glucose (other) (70-99) mg/dl Lactate (0.4-2.0) mmol/L Calcium (8.5-10.1) mg/dl Ionized Calcium (1.12-1.32) mmol/L Phosphorus (2.5-4.9) mg/dl Magnesium (1.8-2.4) mg/dl Total Bilirubin (0.2-1) mg/dl AST (15-37) U/L ALT (12-78) U/L Alkaline Phosphatase (45-117) U/L Total Protein (6.4-8.2) gm/dl Albumin (3.4-5.0) gm/dl Globulin (2.5-4.0) gm/dl Albumin/Globulin Ratio (0.9-2) Procalcitonin (0-0.5) ng/ml Stl C. diff Tox B Gene (Neg) Stl C.difficile Tox A&B (Negative) U Marijuana THC Carboxy (<5) ng/mL Drug Screen Comment Crossmatch See Detail Coding Level of Care Code Critical Care 1st 30-74 mins Diagnoses Hepatic encephalopathy K72.90 GI hemorrhage K92.2 GI bleed type/associated pathology: unspecified gastrointestinal hemorrhage type Liver disease due to alcohol K70.9 Supratherapeutic international normalized ratio (INR) R79.1 Cirrhosis K74.60 Thrombosis, portal vein I81 Acute blood loss anemia D62 UGIB (upper gastrointestinal bleed) K92.2 C. difficile enteritis A04.72 Time Spent (min) 55 Comment I have personally spent 55 minutes of critical care time in the direct management of this patient. This is a life/limb threatening event. This includes time spent evaluating patient, direct bedside care, chart review, placing orders, interpretation of diagnostic studies, discussion with consultants, patient, and/or family members regarding treatment decisions, as well as other required patient management activities. This time is exclusive of all separately billable procedures, and teaching time and separate from and in addition to any other critical care service time. (1) GI hemorrhage GI bleed type/associated pathology: unspecified gastrointestinal hemorrhage type Qualified Code(s): K92.2 - Gastrointestinal hemorrhage, unspecified
[2019-11-17] MEDS: metroNIDAZOLE 500 MG/100 ML BAG IV SCH ×2 (10:00→17:35)
[2019-11-17] MEDS: cefTRIAXone SODIUM 2,000 MG in DEXTROSE 5% 50 ML IV SCH (10:00)
[2019-11-17] MEDS: VASOPRESSIN 20 UNITS in 0.9 % SODIUM CHLORIDE 100 ML IV SCH (10:03)
[2019-11-17] MEDS ORDERED: VANCOMYCIN HCL 500 MG/100 ML ENEMA PR ONE (14:00)
--- NOTE | 2019-11-17 17:03 | Hospitalist Progress Note ---
Date of Service November 17, 2019 Assessment & Plan (1) AMS (altered mental status): (2) Hepatic encephalopathy: (3) Liver disease due to alcohol: (4) Cirrhosis: Acute Hepatic encephalopathy Shock Septic Vs hemorrhagic Lactic Acidosis Blood cultures: Negative to date IV Vancomycin, Ertapenem transitioned to Ceftriaxone Currently off pressors BP variable Appreciate GI Input Plan to resume lactulose, rifaximin as soon as possible Diagnostic paracentesis not suggestive of SBP Prognosis is guarded C diff Colitis Continue Vancomycin Enema Also on IV flagyl Monitor volume status (5) GI hemorrhage: (6) Supratherapeutic international normalized ratio (INR): (7) Acute blood loss anemia: Acute GI bleed in patient with decompensated alcoholic cirrhosis In setting of Supratherapeutic INR due to coumadin -S/P EGD: No evidence of active or recent bleeding to suggest an upper GI source. Non-bleeding grade II esophageal varices. Banded. Portal hypertensive gastropathy. Normal duodenal bulb and second portion of the duodenum. A single duodenal nodule. -S/P Sigmoidoscopy: The examined portion of the ileum was normal. The sigmoid to cecum is normal with adherent brown stool. Blood in the rectum. Actively bleeding spot in the rectum, this could be from a small deep rectal varix, could not be banded, injected with Ethanolamine and clips were placed resulting in adequate hemostasis. Non-bleeding internal hemorrhoids. S/P PRBC, FFP, vitamin K and Kcentra --Received Octreotide -On IV PPI -Continue to hold Coumadin -Monitor CBC (8) Elevated troponin: Likely from demand from blood loss anemia Echo: The left ventricular wall motion is normal at rest. Hypokalemia Hypomagnesemia Hypocalcemia Replete electrolytes as needed Acute Kidney Injury Likely Ischemic ATN from shock due to GI bleed ? Hepatorenal Syndrome Appreciate Nephrology Input Monitor renal function Paroxysmal atrial fibrillation Currently in sinus Anticoagulation held due to GI bleed (9) Sleep apnea: Currently on Vent (10) Thrombosis, portal vein: Coumadin on hold due to GI bleeding (11) Schizoaffective disorder: Not on any meds for now We will reevaluate once medically stabilized (12) COPD (chronic obstructive pulmonary disease): Stable Continue home inhalers DVT Px: SCDs Re: GI bleeding Code Status Full Code for now Need to readdress CODE STATUS, goals of care Palliative care on board Admission and Anticipated Discharge Date Admission Date: November 14, 2019 Subjective Patient is seen and examined at bedside Continues to be on vent Blood pressure variable off pressors Continues to have diarrhea Started on IV flagyl in addition to Vancomycin enema Discussed with GI today Review of Systems Review of Systems: Unobtainable due to endotracheal tube Physical Exam Physical Exam: Physical Exam: Vitals signs as noted above General Appearance:Moderately built and nourished, no apparent distress, Intubated Head: normocephalic, Atraumatic Eyes: normal inspection Neck: supple, Trachea midline Respiratory/Chest: Normal breath sounds, scattered rhonchi Cardiovascular: S1, S2, No murmur Abdomen/GI:Soft, Non tender, Bowel sounds present Extremities/Musculoskelatal:normal inspection, no edema Neurologic/Psych: Complete neuro exam could not be performed. Skin: normal color, warm Results & Data Results & Data ([facility]) Vital Signs (Past 12 Hours) Vital Signs Temp Pulse Resp BP Pulse Ox 11/17/19 13:40 86 20 100 11/17/19 12:53 83 82/48 L 100 11/17/19 12:00 36.9 C 89 100 11/17/19 11:53 90 90/57 L 100 11/17/19 11:00 97 H 99 11/17/19 10:53 92 H 93/54 L 100 11/17/19 10:15 94 H 20 100 11/17/19 10:00 93 H 100 11/17/19 09:53 98 H 105/61 100 11/17/19 09:00 100 H 99 11/17/19 08:52 98 H 107/63 98 11/17/19 08:00 36.9 C 97 H 99 11/17/19 07:53 95 H 81/50 L 99 11/17/19 07:24 88 11/17/19 07:00 36.6 C 93 H 20 100 11/17/19 06:53 89 87/48 L 100 11/17/19 06:00 86 100 11/17/19 05:55 87 100/57 L 100 11/17/19 05:53 86 20 100 11/17/19 05:52 87 100/57 L 100 11/17/19 05:00 36.6 C 87 100 Laboratory Results Short CBC 11/16/19 11/17/19 Range/Units 23:05 03:50 WBC 11.39 H (4.8-10.8) K/uL Hgb 7.8 L 7.5 L (12.0-16.0) g/dL Hct 21.9 L 20.9 L* (37-47) % Plt Count 56 L (130-400) K/uL BMP 11/16/19 11/17/19 17:08 03:50 Sodium 130 L 129 L Potassium 3.7 3.7 Chloride 97 L 94 L Carbon Dioxide 13 L 17 L BUN 44 H 44 H Creatinine 4.46 H 4.44 H Glucose 94 85 Calcium 7.7 L 7.7 L Liver Function 11/17/19 Range/Units 03:50 Total Bilirubin 9.4 H (0.2-1) mg/dl AST 21 (15-37) U/L ALT 7 L (12-78) U/L Alkaline Phosphatase 74 (45-117) U/L Albumin 2.5 L (3.4-5.0) gm/dl (1) GI hemorrhage GI bleed type/associated pathology: unspecified gastrointestinal hemorrhage type Qualified Code(s): K92.2 - Gastrointestinal hemorrhage, unspecified (2) Schizoaffective disorder Schizoaffective disorder type: unspecified Qualified Code(s): F25.9 - Schizoaffective disorder, unspecified
--- NOTE | 2019-11-17 19:43 | Nephrology Progress Note ---
Date of Service November 17, 2019 Assessment & Plan (1) Acute renal failure (ARF): acute on rapidly progressive renal failure likely due to ischemic ATN in setting of GI bleeding and septic shock of unclear source. Patient is oliguric w/ 200 mL UOP today. lactate has been hovering at about 10; repeat is pending (came back at 11); cxs remain negative. Creatinine peaked at 4.6 on 11/16; she presented w/ creatinine 4.4 on 11/13, which is up from 3.5 at the time of discharge about a month ago; 3.5 was already rapidly progressive CKD. creatinine remains plateau'd in mid 's. Hemoglobin was 5.5 on admission. Blood pressure has been a bit lower with systolic between 100-120s. Hepatorenal syndrome is diagnosis of exclusion and usually renal function does not improve after volume resuscitation. she is not showing much improvement but also with shock and pressor dependence would be difficult to DX HRS here, given plausible clinical alternatives. Management of ATN is supportive. UA shows ketnouria, chronic inflammation possibly c/w UTI but not definitive; no casts noted and >30 squams/ HPF. -lactic acidemia in setting of sepsis-cultures remain negative so far; lactate down slightly at 7; continue supportive care -actively drinking and not a TIPS or liver txplt candidate; she would not be a dialysis candidate in this clinical context; palliative care following -Monitor input output to cont -serial chemistries as below (2) Acute blood loss anemia: Due to GI bleed. Continue blood transfusion as needed. No role for Epogen in setting of acute kidney injury; critical care plans serial H&H. (3) Electrolyte abnormality: magnesium has stabilized, phosphorus wnl; iCa low this am and had 1 gm >repeat bmp at least bid and replete prn >> ordered repeat labs for 1999 Admission and Anticipated Discharge Date Admission Date: November 14, 2019 Subjective seen on rounds this afternoon at about 1430; now C diff + and getting vanco enemas; pallitiave still working on contacting siblings to discuss goals of care; remains intubated, minimally responsive Review of Systems Review of Systems: Unobtainable due to endotracheal tube Physical Exam Constitutional: well developed, well nourished and + mechanically ventilated ENMT: Ears: no external ear abnormality Nose: no external nose abnormality Mouth: + dry oral mucous membranes Neck: no nuchal rigidity Respiratory: normal respiratory effort Auscultation: lungs clear to auscultation bilaterally and + diminished lung sounds Cardiovascular: RRR, no murmur, no edema Gastrointestinal (Abdomen): Inspection/Auscultation: normal bowel sounds Percussion/Palpation: abdomen soft; abdomen nontender and no guarding Rectal Exam: + heme positive stool Musculoskeletal: Extremities: strength 5/5 throughout Skin: no rashes, warm and dry Genitourinary: arriola w/ scant urine Results & Data ([facility]) Vital Signs (Past 12 Hours) Vital Signs Temp Pulse Resp BP Pulse Ox 11/17/19 18:00 86 100 11/17/19 17:53 86 83/52 L 100 11/17/19 17:34 84 86/50 L 100 11/17/19 17:00 83 100 11/17/19 16:53 85 84/47 L 96 11/17/19 16:40 85 20 100 11/17/19 16:00 91 H 11/17/19 15:53 37 C 90 91/54 L 97 11/17/19 14:53 90 94/64 L 94 11/17/19 13:53 85 88/48 L 100 11/17/19 13:40 86 20 100 11/17/19 12:53 83 82/48 L 100 11/17/19 12:00 36.9 C 89 100 11/17/19 11:53 90 90/57 L 100 11/17/19 11:00 97 H 99 11/17/19 10:53 92 H 93/54 L 100 11/17/19 10:15 94 H 20 100 11/17/19 10:00 93 H 100 11/17/19 09:53 98 H 105/61 100 11/17/19 09:00 100 H 99 11/17/19 08:52 98 H 107/63 98 11/17/19 08:00 36.9 C 97 H 99 11/17/19 07:53 95 H 81/50 L 99 Laboratory Results 11/17/19 03:50 11/17/19 03:50 Diagnostic Findings cxr 1. Tip of endotracheal tube 3.4 cm above the anya. 2. Small right and trace left pleural effusions. 3. Pulmonary vascular congestion. (1) Acute renal failure (ARF) Acute renal failure type: unspecified Qualified Code(s): N17.9 - Acute kidney failure, unspecified
[2019-11-17 20:37] LABS: BUN Creatinine Ratio 10.8 (10-20); Calcium 8.5 mg/dl (8.5-10.1); Creatinine Clr Calc Pharmacy 15.9 ml/min; Est GFR (African American) 11.5; Est GFR (Non-African American) 9.9; Potassium 3.7 mmol/L (3.5-5.1)
[2019-11-18] MEDS ORDERED: GLUCOSE 40% GEL 15 GM TUBE PO PRN (00:18)
[2019-11-18] MEDS ORDERED: STAT IV Infusion **Titration per Protocol STA (00:18)
[2019-11-18] MEDS ORDERED: CARBOHYDRATES FOR HYPOGLYCEMIA PO PRN (00:18)
[2019-11-18] MEDS ORDERED: GLUCAGON FOR INJ 1 MG VIAL SQ PRN (00:18)
[2019-11-18] MEDS ORDERED: GLUCOSE 10 TABS/TUBE PO PRN (00:18)
[2019-11-18] MEDS ORDERED: DEXTROSE 50% 50 ML SYRINGE IV PRN (00:18)
[2019-11-18] MEDS: INSULIN ASPART 100 UNITS/ML 3 ML PEN SC SCH ×5 (00:28→17:24)
[2019-11-18] MEDS: NOREPINEPHRINE BIT INJ 8 MG in DEXTROSE 5% 500 ML IV SCH ×2 (00:30→17:22)
[2019-11-18] MEDS: metroNIDAZOLE 500 MG/100 ML BAG IV SCH ×3 (03:15→17:22)
[2019-11-18 05:07] LABS: Hematocrit (blood only) 23.6 % (37-47); Hemoglobin 8.4 g/dL (12.0-16.0); Mean Corpuscular Hemoglobin 32.2 pg (25-34); Mean Corpuscular Hgb Conc 35.6 g/dL (32-36); Mean Corpuscular Volume 90.4 fL (80-100); RDW Coefficient of Variation 18.3 % (11.5-14.5); RDW Standard Deviation 57.9 fL (36.4-46.3); Red Blood Count 2.61 M/uL (4.2-5.4); White Blood Count 8.11 K/uL (4.8-10.8)
[2019-11-18 05:10] LABS: Platelet Count 44 K/uL (130-400)
[2019-11-18 05:25] LABS: INR 4.4 (0.9-1.1); Prothrombin Time 42.4 Seconds (9.0-12.0)
[2019-11-18 06:46] LABS: Alanine Aminotransferase < 6 U/L (12-78); Albumin Globulin Ratio 0.7 (0.9-2); Albumin Level 2.4 gm/dl (3.4-5.0); Alkaline Phosphatase 78 U/L (45-117); Aspartate Aminotransferase 22 U/L (15-37); BUN Creatinine Ratio 9.7 (10-20); Bilirubin,Total 9.4 mg/dl (0.2-1); Blood Urea Nitrogen 46 mg/dl (7-18); Calcium 8.2 mg/dl (8.5-10.1); Carbon Dioxide 20 mmol/L (21-32); Chloride 96 mmol/L (98-107); Creatinine Clr Calc Pharmacy 15.8 ml/min; Est GFR (African American) 11.3; Est GFR (Non-African American) 9.8; Globulin 3.4 gm/dl (2.5-4.0); Glucose 96 mg/dl (70-99); Phosphorus 2.1 mg/dl (2.5-4.9); Potassium 3.7 mmol/L (3.5-5.1); Sodium 129 mmol/L (136-145); Total Protein 5.8 gm/dl (6.4-8.2)
--- NOTE | 2019-11-18 08:03 | XRay Report ---
XR chest 1V portable CLINICAL HISTORY: f/u COMPARISON STUDY: Chest radiograph November 17, 2019. FINDINGS: Tip of endotracheal tube is 2 cm above the anya. There is no pneumothorax. A trace right pleural effusion is suspected. There is minimal right basilar opacity. Several healing left rib fract ures are noted. There is no evidence for pulmonary edema. Cardiomediastinal silhouette is stable. IMPRESSION: 1. Tip of endotracheal tube 2 cm above the anya. 2. Suspected trace right pleural effusion with mild right basilar opacity. ACT 112: Negative or not required by law. Electronically signed by: Fabrizio Johnson M.D. 11/18/2019 8:02 AM
[2019-11-18] MEDS: FOLIC ACID 1 MG in SYRINGE 9.8 ML IV SCH (08:04)
[2019-11-18] MEDS: PANTOprazole 40 MG in SYRINGE 0 ML IV SCH ×2 (08:04→21:29)
[2019-11-18] MEDS: UMECLIDINIUM BROMIDE 62.5MCG/BLISTER 7 PUFFS/INHALER INH SCH (08:04)
--- NOTE | 2019-11-18 08:53 | Gastroenterology Progress Note ---
Date of Service November 18, 2019 Assessment & Plan (1) Cirrhosis: 54 year old female patient with PMH alcoholic cirrhosis, portal vein thrombus, A. 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 No PO access, started on rectal vancomycin, notes displacement of endoclips, unsure how many but no increase bleeding reported. MELD trending up, 40. 72 hours out from EGD/Colon no absolute GI contraindication to NG/OG access Can D/C octreotide from GIB standpoint Can convert to PO PPI BID Trend MELD labs Prognosis guarded Thank you for allowing us to participate in the care of this patient. Please call with any acute changes, questions or concerns. Please see addendum below with additional recommendation from my supervising physician. Admission and Anticipated Discharge Date Admission Date: November 14, 2019 Supervising Physician Co-Signing Physician Notes I have seen and discussed the management with GIA Bishop. Intubated sedated. No acute changes in labs or her pe status. Vanco enemas prn. Poor prognosis, family meeting to discuss goals of care is recommended. GI to sign off. Subjective Pt was seen, evaluated. Unable to contact family. Labs reviewed. MELD 40 Remains sedated, intubated on pressors. Physical Exam Constitutional: + ill appearing; no acute distress Cardiovascular: Rate/Rhythm: regular rate and regular rhythm Gastrointestinal (Abdomen): Percussion/Palpation: abdomen soft and + ascites; no abdominal mass Skin: no rashes, warm and dry Results & Data ([facility]) Vital Signs (Past 12 Hours) Vital Signs Temp Pulse Resp BP Pulse Ox 11/18/19 07:58 89 20 100 11/18/19 07:00 85 100 11/18/19 06:53 86 103/60 100 11/18/19 06:30 80 100 11/18/19 06:00 83 100 11/18/19 05:53 84 99/55 L 100 11/18/19 05:30 85 100 11/18/19 05:20 20 11/18/19 05:00 90 99 11/18/19 04:53 85 90/55 L 100 11/18/19 04:30 87 100 11/18/19 04:18 36.6 C 11/18/19 04:00 82 99 11/18/19 03:53 80 96/49 L 100 11/18/19 03:30 84 97 11/18/19 03:00 86 98 11/18/19 02:53 85 85/51 L 96 11/18/19 02:30 85 96 11/18/19 02:00 86 20 95 11/18/19 01:53 89 91/49 L 93 11/18/19 01:30 82 100 11/18/19 01:00 81 100 11/18/19 00:53 82 100/59 L 100 11/18/19 00:30 88 100 11/18/19 00:00 90 99 11/17/19 23:53 86 75/44 L 99 11/17/19 23:30 90 96 11/17/19 23:26 93 H 11/17/19 23:23 36.6 C 11/17/19 23:00 96 H 93 11/17/19 22:53 97 H 85/45 L 96 11/17/19 22:50 98 H 20 99 11/17/19 22:00 89 100 11/17/19 21:53 87 87/45 L 98 11/17/19 21:00 89 100 11/17/19 20:53 84 82/45 L 99 Laboratory Results 11/18/19 11/18/19 11/18/19 Range/Units 08:20 04:55 04:55 WBC (4.8-10.8) K/uL RBC (4.2-5.4) M/uL Hgb (12.0-16.0) g/dL Hct (37-47) % MCV (80-100) fL MCH (25-34) pg MCHC (32-36) g/dL RDW Std Deviation (36.4-46.3) fL RDW Coeff of Ally (11.5-14.5) % Plt Count (130-400) K/uL MPV (7.4-10.4) fL PT 42.4 H (9.0-12.0) Seconds INR 4.4 H (0.9-1.1) Sodium (136-145) mmol/L Potassium (3.5-5.1) mmol/L Chloride (98-107) mmol/L Carbon Dioxide (21-32) mmol/L Anion Gap (3-11) BUN (7-18) mg/dl Creatinine (0.6-1.2) mg/dl Est Cr Clr Drug Dosing ml/min Est GFR ( Amer) Est GFR (Non-Af Amer) BUN/Creatinine Ratio (10-20) Glucose (70-99) mg/dl POC Glucose (70-99) mg/dl POC Glucose (other) 91 (70-99) mg/dl Calcium (8.5-10.1) mg/dl Ionized Calcium 1.10 L (1.12-1.32) mmol/L Phosphorus (2.5-4.9) mg/dl Magnesium (1.8-2.4) mg/dl Total Bilirubin (0.2-1) mg/dl AST (15-37) U/L ALT (12-78) U/L Alkaline Phosphatase (45-117) U/L Total Protein (6.4-8.2) gm/dl Albumin (3.4-5.0) gm/dl Globulin (2.5-4.0) gm/dl Albumin/Globulin Ratio (0.9-2) Procalcitonin (0-0.5) ng/ml 11/18/19 11/18/19 11/18/19 Range/Units 04:55 04:55 04:55 WBC 8.11 (4.8-10.8) K/uL RBC 2.61 L (4.2-5.4) M/uL Hgb 8.4 L (12.0-16.0) g/dL Hct 23.6 L (37-47) % MCV 90.4 (80-100) fL MCH 32.2 (25-34) pg MCHC 35.6 (32-36) g/dL RDW Std Deviation 57.9 H (36.4-46.3) fL RDW Coeff of Ally 18.3 H (11.5-14.5) % Plt Count 44 L (130-400) K/uL MPV 10.0 (7.4-10.4) fL PT (9.0-12.0) Seconds INR (0.9-1.1) Sodium 129 L (136-145) mmol/L Potassium 3.7 (3.5-5.1) mmol/L Chloride 96 L (98-107) mmol/L Carbon Dioxide 20 L (21-32) mmol/L Anion Gap 13.0 H (3-11) BUN 46 H (7-18) mg/dl Creatinine 4.69 H* (0.6-1.2) mg/dl Est Cr Clr Drug Dosing 15.8 ml/min Est GFR ( Amer) 11.3 Est GFR (Non-Af Amer) 9.8 BUN/Creatinine Ratio 9.7 L (10-20) Glucose 96 (70-99) mg/dl POC Glucose (70-99) mg/dl POC Glucose (other) (70-99) mg/dl Calcium 8.2 L (8.5-10.1) mg/dl Ionized Calcium (1.12-1.32) mmol/L Phosphorus 2.1 L (2.5-4.9) mg/dl Magnesium 2.0 (1.8-2.4) mg/dl Total Bilirubin 9.4 H (0.2-1) mg/dl AST 22 (15-37) U/L ALT < 6 L (12-78) U/L Alkaline Phosphatase 78 (45-117) U/L Total Protein 5.8 L (6.4-8.2) gm/dl Albumin 2.4 L (3.4-5.0) gm/dl Globulin 3.4 (2.5-4.0) gm/dl Albumin/Globulin Ratio 0.7 L (0.9-2) Procalcitonin 15.45 H (0-0.5) ng/ml 11/18/19 11/18/19 11/18/19 Range/Units 03:26 00:48 00:14 WBC (4.8-10.8) K/uL RBC (4.2-5.4) M/uL Hgb (12.0-16.0) g/dL Hct (37-47) % MCV (80-100) fL MCH (25-34) pg MCHC (32-36) g/dL RDW Std Deviation (36.4-46.3) fL RDW Coeff of Ally (11.5-14.5) % Plt Count (130-400) K/uL MPV (7.4-10.4) fL PT (9.0-12.0) Seconds INR (0.9-1.1) Sodium (136-145) mmol/L Potassium (3.5-5.1) mmol/L Chloride (98-107) mmol/L Carbon Dioxide (21-32) mmol/L Anion Gap (3-11) BUN (7-18) mg/dl Creatinine (0.6-1.2) mg/dl Est Cr Clr Drug Dosing ml/min Est GFR ( Amer) Est GFR (Non-Af Amer) BUN/Creatinine Ratio (10-20) Glucose (70-99) mg/dl POC Glucose 69 L* (70-99) mg/dl POC Glucose (other) 91 107 H (70-99) mg/dl Calcium (8.5-10.1) mg/dl Ionized Calcium (1.12-1.32) mmol/L Phosphorus (2.5-4.9) mg/dl Magnesium (1.8-2.4) mg/dl Total Bilirubin (0.2-1) mg/dl AST (15-37) U/L ALT (12-78) U/L Alkaline Phosphatase (45-117) U/L Total Protein (6.4-8.2) gm/dl Albumin (3.4-5.0) gm/dl Globulin (2.5-4.0) gm/dl Albumin/Globulin Ratio (0.9-2) Procalcitonin (0-0.5) ng/ml 11/17/19 11/17/19 11/17/19 Range/Units 19:55 19:55 19:36 WBC (4.8-10.8) K/uL RBC (4.2-5.4) M/uL Hgb (12.0-16.0) g/dL Hct (37-47) % MCV (80-100) fL MCH (25-34) pg MCHC (32-36) g/dL RDW Std Deviation (36.4-46.3) fL RDW Coeff of Ally (11.5-14.5) % Plt Count (130-400) K/uL MPV (7.4-10.4) fL PT (9.0-12.0) Seconds INR (0.9-1.1) Sodium 130 L (136-145) mmol/L Potassium 3.7 (3.5-5.1) mmol/L Chloride 95 L (98-107) mmol/L Carbon Dioxide 19 L (21-32) mmol/L Anion Gap 16.0 H (3-11) BUN 50 H (7-18) mg/dl Creatinine 4.64 H* (0.6-1.2) mg/dl Est Cr Clr Drug Dosing 15.9 ml/min Est GFR ( Amer) 11.5 Est GFR (Non-Af Amer) 9.9 BUN/Creatinine Ratio 10.8 (10-20) Glucose 73 (70-99) mg/dl POC Glucose 74 (70-99) mg/dl POC Glucose (other) (70-99) mg/dl Calcium 8.5 (8.5-10.1) mg/dl Ionized Calcium 1.09 L (1.12-1.32) mmol/L Phosphorus (2.5-4.9) mg/dl Magnesium (1.8-2.4) mg/dl Total Bilirubin (0.2-1) mg/dl AST (15-37) U/L ALT (12-78) U/L Alkaline Phosphatase (45-117) U/L Total Protein (6.4-8.2) gm/dl Albumin (3.4-5.0) gm/dl Globulin (2.5-4.0) gm/dl Albumin/Globulin Ratio (0.9-2) Procalcitonin (0-0.5) ng/ml 11/17/19 11/17/19 Range/Units 16:22 12:02 WBC (4.8-10.8) K/uL RBC (4.2-5.4) M/uL Hgb (12.0-16.0) g/dL Hct (37-47) % MCV (80-100) fL MCH (25-34) pg MCHC (32-36) g/dL RDW Std Deviation (36.4-46.3) fL RDW Coeff of Ally (11.5-14.5) % Plt Count (130-400) K/uL MPV (7.4-10.4) fL PT (9.0-12.0) Seconds INR (0.9-1.1) Sodium (136-145) mmol/L Potassium (3.5-5.1) mmol/L Chloride (98-107) mmol/L Carbon Dioxide (21-32) mmol/L Anion Gap (3-11) BUN (7-18) mg/dl Creatinine (0.6-1.2) mg/dl Est Cr Clr Drug Dosing ml/min Est GFR ( Amer) Est GFR (Non-Af Amer) BUN/Creatinine Ratio (10-20) Glucose (70-99) mg/dl POC Glucose 74 83 (70-99) mg/dl POC Glucose (other) (70-99) mg/dl Calcium (8.5-10.1) mg/dl Ionized Calcium (1.12-1.32) mmol/L Phosphorus (2.5-4.9) mg/dl Magnesium (1.8-2.4) mg/dl Total Bilirubin (0.2-1) mg/dl AST (15-37) U/L ALT (12-78) U/L Alkaline Phosphatase (45-117) U/L Total Protein (6.4-8.2) gm/dl Albumin (3.4-5.0) gm/dl Globulin (2.5-4.0) gm/dl Albumin/Globulin Ratio (0.9-2) Procalcitonin (0-0.5) ng/ml
[2019-11-18] MEDS ORDERED: POTASSIUM PHOSPHATE 15 MMOL in SODIUM CHLORIDE 0.9% 250 ML IV ONE (10:15)
[2019-11-18] MEDS: cefTRIAXone SODIUM 2,000 MG in DEXTROSE 5% 50 ML IV SCH (10:25)
--- NOTE | 2019-11-18 11:26 | Critical Care Progress Note ---
Date of Service November 18, 2019 Assessment & Plan (1) Hepatic encephalopathy: (1) Admitted to intensive care unit: Reason Critically Ill: 54-year-old female with altered mental status in the setting of presumed upper GI bleed with supratherapeutic INR requiring close hemodynamic monitoring in the setting of above. NEURO - Acute encephalopathy -Hepatic encephalopathy: -Passing stools secondary to GI bleeding -Rifaximin: 550 twice daily: Will consider reinitiation if we are able to place a course safe -Lactulose 3 times daily as needed titrate to 3 bowel movements daily: Holding secondary to lack of NG access -Course safe placement will be performed by myself after discussion with family today as we may transition to comfort measures and limit aggressiveness -Suspect metabolic component: Sepsis - Holding all sedatives, at risk for cerebral edema -Osmolality minimally elevated CARDIAC/VASCULAR - Hypotension: Sepsis versus type II ischemia: Worsening -Elevated troponin: Improving -With normal echocardiogram this is likely demand ischemia, sepsis related myocardial dysfunction, acute kidney injury -Transfusion hemoglobin still 7 -Repeat EKG no particular ST changes will remain at 7 for goal hemoglobin Paroxysmal A. fib: Currently normal sinus rhythm -Currently anticoagulated with Coumadin for long-term anticoagulation -Will consider anticoagulation as she gets further from her acute blood loss anemia -Risk of bleeding outweighs risk of thrombosis secondary to A. 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 Portal vein thrombosis -Grade 2 esophageal varices banded 11/14/2019 -Rectal varices with intervention 11/14/2019 -Vasopressin discontinued, octreotide: Discontinued 11/16, norepinephrine: Discontinued, phenylephrine: Phenylephrine off -Midodrine on hold: Secondary to no NG access: Pending family discussion today -Protonix infusion: Discontinued 11/16 currently twice daily IV 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 Not candidate for transplant Not candidate for TIPS given likely serna of infection. NG access: We will consider course safe placement RENAL/LYTES - Acute renal failure: Continued climbing creatinine -Possible hepatorenal syndrome: Probable ATN Lactic acidosis (metabolic high gap acidosis): -Bicarb infusion: Discontinued Nephrology consulted: Reviewed recommendations Azotemia: Secondary to chronic kidney disease and GI bleeding Hypokalemia: Improved Hypomagnesemia: Improved Hypocalcemia: Improved - Narvaez to be placed - Strict I&Os. ENDO - DMII Hyperglycemia: Resolved Hypoglycemia: Resolved -Only correction factor for elevated blood sugars is ordered HEME - Acute blood loss anemia: 2/2 GIB. Supratherapeutic INR -Patient has received multiple doses of IV vitamin K without response Trend H&H. ID - SBP Prophylaxis: She will be treated for 7 days duration of therapy with a combination of ertapenem de-escalated to Rocephin Urine culture does not meet threshold for colony-forming units to be considered acute urinary tract infection -The Rocephin coverage for SBP should be adequate for urinary pathogens Sepsis secondary to C. difficile colitis -IV Flagyl in addition to rectal vancomycin, unable to give oral vancomycin secondary to recent banding of esophageal varices in the setting of life-threatening hemorrhage -She will need total treatment of 14 days minimum past the last day of administration of Rocephin -I would consider this to be maximum therapy, patient would not likely survive the operation of colectomy: -Devlin calculator postoperative mortality in patients with cirrhosis has 7-day probability of mortality at 75% 30-day mortality and longer greater than 99% LINES/IV ACCESS - Femoral central venous access, femoral arterial line placed 11/15/2019 -If we will continue care aggressively I would replace the femoral line today otherwise if we move towards palliative/comfort I will remove the femoral central line and proceed with peripheral IVs. DVT PROPHYLAXIS - Hold on chemoprophylaxis 2/2 GIB. SCDs CODE STATUS: Full -Palliative care consulted for goals of care -Family meeting pending at 1 PM today. I discussed case with Donis I was also able to update Sister Elizabeth. She reports that there are 4 siblings in total, parents are and no children for the patient. We will attempt to have a majority decision with regards to goals of care moving forward. Patient was discussed in multidisciplinary rounds I do believe the patient is in end-stage medical condition without chance of meaningful recovery. If family opts to pursue comfort care and terminal extubation I would be in agreement with this. 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 difficile enteritis: Admission and Anticipated Discharge Date Admission Date: November 14, 2019 Supervising Physician Co-Signing Physician Notes update: 1310: attempted to contact Donis at [phone], left voice for him to conact the ICU Repeated phone call at [phone]: I was able to discuss with Donis current state and prognosis. He reported that he was able to discuss with additional family members and all were in agreement that given the severity to "let her go". He reiterated he felt like the decision was largely directed back and placed on his shoulders. I asked him specifically if he had any questions or concerns: 2 questions arose Was she aware of what was going on: We discussed her encephalopathic state and decreased responsiveness and will likely shock state precluding significant awareness. The second question was does she have any chance of recovery? We discussed prognosis and better defined recovery. She is certainly in a state which will recur and her debilitation will continue to get worse and independent living is highly unlikely. In discussing those prognostics he agreed that heroic interventions should be discontinued. At this point we will make the patient a DO NOT RESUSCITATE in event of cardiac arrest. I also asked if any immediate family would desire to see her prior to any discontinuation of medical support to allow natural processes to continue. He was going to contact his Sister Elizabeth and get back to us. He felt unsure about seeing her in her current state and was more likely not wanting to see her prior to discontinuation of any medical support. At this time I am waiting a return phone call to further clarify family wishes, I will make the patient DO NOT RESUSCITATE in event of cardiac arrest. I will also attempt to contact/discussed with Elizabeth as well as have additional provider confirm my discussions given the communication limitations during this ID-19 pandemic Subjective Received 1 dose of Ativan for agitation and ventilator dyssynchrony, still not following commands, has continued to remain encephalopathic without significant improvement Overnight patient had sustained hypotension requiring reinitiation of vasoactive medications. Review of Systems Review of Systems: Unobtainable due to endotracheal tube and Unobtainable due to reduced consciousness Physical Exam Physical Exam: General: Unresponsive, has cough, breathing over vent, reacts/withdraws to painful stimuli Skin: Cool, dry, diffuse edema Head: Atraumatic Ears, nose, mouth and throat: obscured by endotracheal tube, dry mucous membranes Cardiovascular: sluggish capillary refill Respiratory: no respiratory distress, scattered rhonchi Gastrointestinal: No organomegaly, presumptive ascites, nonrigid Musculoskeletal: No deformity Results & Data Results & Data ([facility]) Vital Signs (Past 12 Hours) Vital Signs Temp Pulse Resp BP Pulse Ox 11/18/19 08:53 83 93/51 L 100 11/18/19 08:30 85 100 11/18/19 08:00 36.4 C L 85 100 11/18/19 07:58 89 20 100 11/18/19 07:53 89 94/57 L 100 11/18/19 07:30 94 H 95 11/18/19 07:00 85 100 11/18/19 06:53 86 103/60 100 11/18/19 06:30 80 100 11/18/19 06:00 83 100 11/18/19 05:53 84 99/55 L 100 11/18/19 05:30 85 100 11/18/19 05:20 20 11/18/19 05:00 90 99 11/18/19 04:53 85 90/55 L 100 11/18/19 04:30 87 100 11/18/19 04:18 36.6 C 11/18/19 04:00 82 99 11/18/19 03:53 80 96/49 L 100 11/18/19 03:30 84 97 11/18/19 03:00 86 98 11/18/19 02:53 85 85/51 L 96 11/18/19 02:30 85 96 11/18/19 02:00 86 20 95 11/18/19 01:53 89 91/49 L 93 11/18/19 01:30 82 100 11/18/19 01:00 81 100 11/18/19 00:53 82 100/59 L 100 11/18/19 00:30 88 100 11/18/19 00:00 90 99 11/17/19 23:53 86 75/44 L 99 11/17/19 23:30 90 96 11/17/19 23:26 93 H Laboratory Results 11/18/19 11/18/19 11/18/19 Range/Units 08:20 04:55 04:55 WBC (4.8-10.8) K/uL RBC (4.2-5.4) M/uL Hgb (12.0-16.0) g/dL Hct (37-47) % MCV (80-100) fL MCH (25-34) pg MCHC (32-36) g/dL RDW Std Deviation (36.4-46.3) fL RDW Coeff of Ally (11.5-14.5) % Plt Count (130-400) K/uL MPV (7.4-10.4) fL PT 42.4 H (9.0-12.0) Seconds INR 4.4 H (0.9-1.1) Sodium (136-145) mmol/L Potassium (3.5-5.1) mmol/L Chloride (98-107) mmol/L Carbon Dioxide (21-32) mmol/L Anion Gap (3-11) BUN (7-18) mg/dl Creatinine (0.6-1.2) mg/dl Est Cr Clr Drug Dosing ml/min Est GFR ( Amer) Est GFR (Non-Af Amer) BUN/Creatinine Ratio (10-20) Glucose (70-99) mg/dl POC Glucose (70-99) mg/dl POC Glucose (other) 91 (70-99) mg/dl Calcium (8.5-10.1) mg/dl Ionized Calcium 1.10 L (1.12-1.32) mmol/L Phosphorus (2.5-4.9) mg/dl Magnesium (1.8-2.4) mg/dl Total Bilirubin (0.2-1) mg/dl AST (15-37) U/L ALT (12-78) U/L Alkaline Phosphatase (45-117) U/L Total Protein (6.4-8.2) gm/dl Albumin (3.4-5.0) gm/dl Globulin (2.5-4.0) gm/dl Albumin/Globulin Ratio (0.9-2) Procalcitonin (0-0.5) ng/ml 11/18/19 11/18/19 11/18/19 Range/Units 04:55 04:55 04:55 WBC 8.11 (4.8-10.8) K/uL RBC 2.61 L (4.2-5.4) M/uL Hgb 8.4 L (12.0-16.0) g/dL Hct 23.6 L (37-47) % MCV 90.4 (80-100) fL MCH 32.2 (25-34) pg MCHC 35.6 (32-36) g/dL RDW Std Deviation 57.9 H (36.4-46.3) fL RDW Coeff of Ally 18.3 H (11.5-14.5) % Plt Count 44 L (130-400) K/uL MPV 10.0 (7.4-10.4) fL PT (9.0-12.0) Seconds INR (0.9-1.1) Sodium 129 L (136-145) mmol/L Potassium 3.7 (3.5-5.1) mmol/L Chloride 96 L (98-107) mmol/L Carbon Dioxide 20 L (21-32) mmol/L Anion Gap 13.0 H (3-11) BUN 46 H (7-18) mg/dl Creatinine 4.69 H* (0.6-1.2) mg/dl Est Cr Clr Drug Dosing 15.8 ml/min Est GFR ( Amer) 11.3 Est GFR (Non-Af Amer) 9.8 BUN/Creatinine Ratio 9.7 L (10-20) Glucose 96 (70-99) mg/dl POC Glucose (70-99) mg/dl POC Glucose (other) (70-99) mg/dl Calcium 8.2 L (8.5-10.1) mg/dl Ionized Calcium (1.12-1.32) mmol/L Phosphorus 2.1 L (2.5-4.9) mg/dl Magnesium 2.0 (1.8-2.4) mg/dl Total Bilirubin 9.4 H (0.2-1) mg/dl AST 22 (15-37) U/L ALT < 6 L (12-78) U/L Alkaline Phosphatase 78 (45-117) U/L Total Protein 5.8 L (6.4-8.2) gm/dl Albumin 2.4 L (3.4-5.0) gm/dl Globulin 3.4 (2.5-4.0) gm/dl Albumin/Globulin Ratio 0.7 L (0.9-2) Procalcitonin 15.45 H (0-0.5) ng/ml 11/18/19 11/18/19 11/18/19 Range/Units 03:26 00:48 00:14 WBC (4.8-10.8) K/uL RBC (4.2-5.4) M/uL Hgb (12.0-16.0) g/dL Hct (37-47) % MCV (80-100) fL MCH (25-34) pg MCHC (32-36) g/dL RDW Std Deviation (36.4-46.3) fL RDW Coeff of Ally (11.5-14.5) % Plt Count (130-400) K/uL MPV (7.4-10.4) fL PT (9.0-12.0) Seconds INR (0.9-1.1) Sodium (136-145) mmol/L Potassium (3.5-5.1) mmol/L Chloride (98-107) mmol/L Carbon Dioxide (21-32) mmol/L Anion Gap (3-11) BUN (7-18) mg/dl Creatinine (0.6-1.2) mg/dl Est Cr Clr Drug Dosing ml/min Est GFR ( Amer) Est GFR (Non-Af Amer) BUN/Creatinine Ratio (10-20) Glucose (70-99) mg/dl POC Glucose 69 L* (70-99) mg/dl POC Glucose (other) 91 107 H (70-99) mg/dl Calcium (8.5-10.1) mg/dl Ionized Calcium (1.12-1.32) mmol/L Phosphorus (2.5-4.9) mg/dl Magnesium (1.8-2.4) mg/dl Total Bilirubin (0.2-1) mg/dl AST (15-37) U/L ALT (12-78) U/L Alkaline Phosphatase (45-117) U/L Total Protein (6.4-8.2) gm/dl Albumin (3.4-5.0) gm/dl Globulin (2.5-4.0) gm/dl Albumin/Globulin Ratio (0.9-2) Procalcitonin (0-0.5) ng/ml 11/17/19 11/17/19 11/17/19 Range/Units 19:55 19:55 19:36 WBC (4.8-10.8) K/uL RBC (4.2-5.4) M/uL Hgb (12.0-16.0) g/dL Hct (37-47) % MCV (80-100) fL MCH (25-34) pg MCHC (32-36) g/dL RDW Std Deviation (36.4-46.3) fL RDW Coeff of Ally (11.5-14.5) % Plt Count (130-400) K/uL MPV (7.4-10.4) fL PT (9.0-12.0) Seconds INR (0.9-1.1) Sodium 130 L (136-145) mmol/L Potassium 3.7 (3.5-5.1) mmol/L Chloride 95 L (98-107) mmol/L Carbon Dioxide 19 L (21-32) mmol/L Anion Gap 16.0 H (3-11) BUN 50 H (7-18) mg/dl Creatinine 4.64 H* (0.6-1.2) mg/dl Est Cr Clr Drug Dosing 15.9 ml/min Est GFR ( Amer) 11.5 Est GFR (Non-Af Amer) 9.9 BUN/Creatinine Ratio 10.8 (10-20) Glucose 73 (70-99) mg/dl POC Glucose 74 (70-99) mg/dl POC Glucose (other) (70-99) mg/dl Calcium 8.5 (8.5-10.1) mg/dl Ionized Calcium 1.09 L (1.12-1.32) mmol/L Phosphorus (2.5-4.9) mg/dl Magnesium (1.8-2.4) mg/dl Total Bilirubin (0.2-1) mg/dl AST (15-37) U/L ALT (12-78) U/L Alkaline Phosphatase (45-117) U/L Total Protein (6.4-8.2) gm/dl Albumin (3.4-5.0) gm/dl Globulin (2.5-4.0) gm/dl Albumin/Globulin Ratio (0.9-2) Procalcitonin (0-0.5) ng/ml 11/17/19 11/17/19 Range/Units 16:22 12:02 WBC (4.8-10.8) K/uL RBC (4.2-5.4) M/uL Hgb (12.0-16.0) g/dL Hct (37-47) % MCV (80-100) fL MCH (25-34) pg MCHC (32-36) g/dL RDW Std Deviation (36.4-46.3) fL RDW Coeff of Ally (11.5-14.5) % Plt Count (130-400) K/uL MPV (7.4-10.4) fL PT (9.0-12.0) Seconds INR (0.9-1.1) Sodium (136-145) mmol/L Potassium (3.5-5.1) mmol/L Chloride (98-107) mmol/L Carbon Dioxide (21-32) mmol/L Anion Gap (3-11) BUN (7-18) mg/dl Creatinine (0.6-1.2) mg/dl Est Cr Clr Drug Dosing ml/min Est GFR ( Amer) Est GFR (Non-Af Amer) BUN/Creatinine Ratio (10-20) Glucose (70-99) mg/dl POC Glucose 74 83 (70-99) mg/dl POC Glucose (other) (70-99) mg/dl Calcium (8.5-10.1) mg/dl Ionized Calcium (1.12-1.32) mmol/L Phosphorus (2.5-4.9) mg/dl Magnesium (1.8-2.4) mg/dl Total Bilirubin (0.2-1) mg/dl AST (15-37) U/L ALT (12-78) U/L Alkaline Phosphatase (45-117) U/L Total Protein (6.4-8.2) gm/dl Albumin (3.4-5.0) gm/dl Globulin (2.5-4.0) gm/dl Albumin/Globulin Ratio (0.9-2) Procalcitonin (0-0.5) ng/ml Coding Level of Care Code Critical Care 1st 30-74 mins Diagnoses Hepatic encephalopathy K72.90 GI hemorrhage K92.2 GI bleed type/associated pathology: unspecified gastrointestinal hemorrhage type Liver disease due to alcohol K70.9 Supratherapeutic international normalized ratio (INR) R79.1 Cirrhosis K74.60 Thrombosis, portal vein I81 Acute blood loss anemia D62 UGIB (upper gastrointestinal bleed) K92.2 C. difficile enteritis A04.72 Time Spent (min) 50 Comment I have personally spent 50 minutes of critical care time in the direct management of this patient. This is a life/limb threatening event. This includes time spent evaluating patient, direct bedside care, chart review, placing orders, interpretation of diagnostic studies, discussion with consultants, patient, and/or family members regarding treatment decisions, as well as other required patient management activities. This time is exclusive of all separately billable procedures, and teaching time and separate from and in addition to any other critical care service time. (1) GI hemorrhage GI bleed type/associated pathology: unspecified gastrointestinal hemorrhage type Qualified Code(s): K92.2 - Gastrointestinal hemorrhage, unspecified
--- NOTE | 2019-11-18 12:27 | Pharmacy Report ---
Pharmacy Glycemic Sign Off Nt - Date of Service November 18, 2019 - Assessment & Plan ASSESSMENT: * No insulin required/administered over last 48 hours * BSG's trending down [id number], with one event <70 mg/dL * Not on any antihyperglycemic medications as outpatient * Discussed on ICU rounds - will continue with low dose correction factor insulin only and OK for pharmacy to sign off at this time PLAN FOR INPATIENT GLYCEMIC CONTROL: No changes needed to current regimen. * NovoLog per scale ACHS/Q6hrs while NPO * Goal range = 110 140 mg/dl * CF = 35 mg/dl/unit * Pharmacy is signing off of glycemic consult and will no longer be making adjustments to inpatient regimen. Please feel free to re-consult if needed. Thank you.
--- NOTE | 2019-11-18 16:19 | Palliative Care Progress Note ---
Date of Service November 18, 2019 Assessment & Plan (1) Goals of care, counseling/discussion: -54 year old female patient with PMH alcoholic cirrhosis, portal vein thrombus, A. fib, hypertension, COPD, diabetes, alcohol abuse, cocaine abuse, and schizoaffective disorder, presented to the hospital two days ago with reports of several days of lethargy, altered mental status and blood in her stool. Patient has had several hospitalizations in 2020, recently was found to have concerns for UGIB and HRS. She has portal vein thrombus and is on Coumadin. Her INR was 9, H/H 5.7/6.0 on admission. She was given vitamin K, 2 units PRBCs, 2 units of FFP. GI consulted. Patient was also agitated ain the ED, so she was intubated and sent to the ICU. EGD and sigmoidoscopy were performed-- nonbleeding varices were found. Sigmoidoscopy revealed actively bleeding rectal varix-- it was injected with Ethanolamine and clips were placed. Overnight, she continued to deteriorate and was placed on several IV pressors for blood pressure support. Nephrology is consulted for worsening HRS-- creatinine 4.39 on admission, was 3.58 when she was discharged in September 2019. It has now risen to 4.63. Tool Dispatcher notes that patient is not a candidate for HD given that she is critically ill on multiple pressors. GI notes that patient is likely not a candidate for TIPS procedure and is not a transplant candidate. There are reports that patient continues to drink at home. MELD score is 40, prognosis is very poor. -CODE STATUS is now DNR, awaiting son to call in to see if any family members wish to be at patient's bedside when extubated. -We will continue to follow along. (2) Hepatic encephalopathy: (3) GI hemorrhage: (4) Liver disease due to alcohol: Subjective Patient continues to be intubated and sedated, patient seen and examined, spoke with patient's son, FELIX Dykes at [phone]. Earlier discussions with Donis by attending physician-plan is for compassionate extubation. Donis states he is still trying to contact his brother who is supposedly on his way, has not yet spoken to his sister Elizabeth today. Donis stated he did not want to be present at the time of extubation, he is to talk to his brother and sister to see if either 1 of them would want to be present. He stated he will call the unit when he gets hold of his family. Per earlier discussion today-patient is now a DNR. Review of Systems Review of Systems: Unobtainable due to cognitive status Physical Exam Physical Exam: PE: Patient intubated and sedated Respirations: Coarse breath sounds bilaterally CV: Regular rate Abdomen: Distended Extremities: Warm to touch Neuro: Sedated Results & Data Vital Signs (Past 12 Hours) Vital Signs Temp Pulse Resp BP Pulse Ox 11/18/19 15:57 94 H 20 99 11/18/19 14:53 92 H 91/53 L 99 11/18/19 14:45 90 99 11/18/19 14:30 90 97 11/18/19 14:15 88 98 11/18/19 14:00 89 98 11/18/19 13:53 84 97/57 L 100 11/18/19 13:45 87 100 11/18/19 13:39 91 H 20 99 11/18/19 13:30 91 H 99 11/18/19 13:15 84 98 11/18/19 13:00 83 99 11/18/19 12:53 85 93/50 L 99 11/18/19 12:45 84 98 11/18/19 12:30 87 98 11/18/19 12:15 89 99 11/18/19 12:00 97 H 98 11/18/19 11:59 99 H 83/51 L 98 11/18/19 11:45 90 100 11/18/19 11:30 85 100 11/18/19 11:15 87 100 11/18/19 11:00 89 100 11/18/19 10:53 83 105/63 100 11/18/19 10:45 83 99 11/18/19 10:40 88 19 100 11/18/19 10:30 87 99 11/18/19 10:15 79 100 11/18/19 10:00 81 100 11/18/19 09:53 82 84/47 L 100 11/18/19 09:45 82 100 11/18/19 09:30 84 100 11/18/19 09:15 83 100 11/18/19 09:00 84 100 11/18/19 08:54 86 100 11/18/19 08:53 83 93/51 L 100 11/18/19 08:30 85 100 11/18/19 08:00 97.5 F L 85 100 11/18/19 07:58 89 20 100 11/18/19 07:53 89 94/57 L 100 11/18/19 07:30 94 H 95 11/18/19 07:00 85 100 11/18/19 06:53 86 103/60 100 11/18/19 06:30 80 100 11/18/19 06:00 83 100 11/18/19 05:53 84 99/55 L 100 11/18/19 05:30 85 100 11/18/19 05:20 20 11/18/19 05:00 90 99 11/18/19 04:53 85 90/55 L 100 11/18/19 04:30 87 100 11/18/19 04:18 97.9 F PG Care Time/CCT Total # of Minutes Spent Total Time Spent with Patient: Total time spent 35 minutes with greater than 50% of the time spent at bedside and in the unit assessing patient, collaborating with attending physician and speaking with patient's family. Coding Level of Care Code 48491 Subseq Hosp Care Lvl 3 Diagnoses Goals of care, counseling/discussion Z71.89 Hepatic encephalopathy K72.90 GI hemorrhage K92.2 GI bleed type/associated pathology: unspecified gastrointestinal hemorrhage type Liver disease due to alcohol K70.9 Time Spent (min) 35 (1) GI hemorrhage GI bleed type/associated pathology: unspecified gastrointestinal hemorrhage type Qualified Code(s): K92.2 - Gastrointestinal hemorrhage, unspecified
--- NOTE | 2019-11-18 16:54 | Hospitalist Progress Note ---
Date of Service November 18, 2019 Assessment & Plan (1) AMS (altered mental status): (2) Hepatic encephalopathy: (3) Liver disease due to alcohol: (4) Cirrhosis: Acute Hepatic encephalopathy Shock Septic Vs hemorrhagic Lactic Acidosis MELD:40 Not considered a candidate for TIPS/Liver transplant:actively drinking Blood cultures: Negative to date IV Vancomycin, Ertapenem transitioned to Ceftriaxone Currently on pressors Appreciate GI Input Plan to resume lactulose, rifaximin as soon as possible Diagnostic paracentesis not suggestive of SBP Prognosis is guarded Code status changed to DNI/DNR C diff Colitis Continue Vancomycin Enema Also on IV flagyl Monitor volume status (5) GI hemorrhage: (6) Supratherapeutic international normalized ratio (INR): (7) Acute blood loss anemia: Acute GI bleed in patient with decompensated alcoholic cirrhosis In setting of Supratherapeutic INR due to coumadin -S/P EGD: No evidence of active or recent bleeding to suggest an upper GI source. Non-bleeding grade II esophageal varices. Banded. Portal hypertensive gastropathy. Normal duodenal bulb and second portion of the duodenum. A single duodenal nodule. -S/P Sigmoidoscopy: The examined portion of the ileum was normal. The sigmoid to cecum is normal with adherent brown stool. Blood in the rectum. Actively bleeding spot in the rectum, this could be from a small deep rectal varix, could not be banded, injected with Ethanolamine and clips were placed resulting in adequate hemostasis. Non-bleeding internal hemorrhoids. S/P PRBC, FFP, vitamin K and Kcentra --Received Octreotide -On IV PPI -Continue to hold Coumadin -Monitor CBC (8) Elevated troponin: Likely from demand from blood loss anemia Echo: The left ventricular wall motion is normal at rest. Hypokalemia Hypomagnesemia Hypocalcemia Replete electrolytes as needed Acute Kidney Injury Likely Ischemic ATN from shock due to GI bleed ? Hepatorenal Syndrome Appreciate Nephrology Input Monitor renal function Paroxysmal atrial fibrillation Currently in sinus Anticoagulation held due to GI bleed (9) Sleep apnea: Currently on Vent (10) Thrombosis, portal vein: Coumadin on hold due to GI bleeding (11) Schizoaffective disorder: Not on any meds for now We will reevaluate once medically stabilized (12) COPD (chronic obstructive pulmonary disease): Stable Continue home inhalers DVT Px: SCDs Re: GI bleeding Code Status DNI/DNR Palliative care on board Admission and Anticipated Discharge Date Admission Date: November 14, 2019 Subjective Patient is seen and examined at bedside Continues to be on vent Also on pressors MELD: 40 Diarrhea better per visual education director meeting today to address goals of care Remains Encephalopathic Review of Systems Review of Systems: Unobtainable due to endotracheal tube Physical Exam Physical Exam: Physical Exam: Vitals signs as noted above General Appearance:Moderately built and nourished, no apparent distress, Intubated Head: normocephalic, Atraumatic Eyes: normal inspection Neck: supple, Trachea midline Respiratory/Chest: Normal breath sounds, scattered rhonchi Cardiovascular: S1, S2, No murmur Abdomen/GI:Soft, Non tender, Bowel sounds present Extremities/Musculoskelatal:normal inspection, no edema Neurologic/Psych: Complete neuro exam could not be performed. Skin: normal color, warm Results & Data Results & Data ([facility]) Vital Signs (Past 12 Hours) Vital Signs Temp Pulse Resp BP Pulse Ox 11/18/19 15:57 94 H 20 99 11/18/19 14:53 92 H 91/53 L 99 11/18/19 14:45 90 99 11/18/19 14:30 90 97 11/18/19 14:15 88 98 11/18/19 14:00 89 98 11/18/19 13:53 84 97/57 L 100 11/18/19 13:45 87 100 11/18/19 13:39 91 H 20 99 11/18/19 13:30 91 H 99 11/18/19 13:15 84 98 11/18/19 13:00 83 99 11/18/19 12:53 85 93/50 L 99 11/18/19 12:45 84 98 11/18/19 12:30 87 98 11/18/19 12:15 89 99 11/18/19 12:00 97 H 98 11/18/19 11:59 99 H 83/51 L 98 11/18/19 11:45 90 100 11/18/19 11:30 85 100 11/18/19 11:15 87 100 11/18/19 11:00 89 100 11/18/19 10:53 83 105/63 100 11/18/19 10:45 83 99 11/18/19 10:40 88 19 100 11/18/19 10:30 87 99 11/18/19 10:15 79 100 11/18/19 10:00 81 100 11/18/19 09:53 82 84/47 L 100 11/18/19 09:45 82 100 11/18/19 09:30 84 100 11/18/19 09:15 83 100 11/18/19 09:00 84 100 11/18/19 08:54 86 100 11/18/19 08:53 83 93/51 L 100 11/18/19 08:30 85 100 11/18/19 08:00 36.4 C L 85 100 11/18/19 07:58 89 20 100 11/18/19 07:53 89 94/57 L 100 11/18/19 07:30 94 H 95 11/18/19 07:00 85 100 11/18/19 06:53 86 103/60 100 11/18/19 06:30 80 100 11/18/19 06:00 83 100 11/18/19 05:53 84 99/55 L 100 11/18/19 05:30 85 100 11/18/19 05:20 20 11/18/19 05:00 90 99 11/18/19 04:53 85 90/55 L 100 Laboratory Results Short CBC 11/18/19 Range/Units 04:55 WBC 8.11 (4.8-10.8) K/uL Hgb 8.4 L (12.0-16.0) g/dL Hct 23.6 L (37-47) % Plt Count 44 L (130-400) K/uL BMP 11/17/19 11/18/19 19:55 04:55 Sodium 130 L 129 L Potassium 3.7 3.7 Chloride 95 L 96 L Carbon Dioxide 19 L 20 L BUN 50 H 46 H Creatinine 4.64 H* 4.69 H* Glucose 73 96 Calcium 8.5 8.2 L Liver Function 11/18/19 Range/Units 04:55 Total Bilirubin 9.4 H (0.2-1) mg/dl AST 22 (15-37) U/L ALT < 6 L (12-78) U/L Alkaline Phosphatase 78 (45-117) U/L Albumin 2.4 L (3.4-5.0) gm/dl (1) GI hemorrhage GI bleed type/associated pathology: unspecified gastrointestinal hemorrhage type Qualified Code(s): K92.2 - Gastrointestinal hemorrhage, unspecified (2) Schizoaffective disorder Schizoaffective disorder type: unspecified Qualified Code(s): F25.9 - Schizoaffective disorder, unspecified
--- NOTE | 2019-11-18 16:58 | Nephrology Progress Note ---
Date of Service November 18, 2019 Assessment & Plan (1) Acute renal failure (ARF): acute on rapidly progressive renal failure likely due to ischemic ATN in setting of GI bleeding and septic shock of unclear source. Patient is trending towards anuria w/ lower reading of 150 mL UOP today. lactate has been hovering at about 10; with slight downtrend November 16 to 7.5; cxs remain negative. Creatinine peaked at 4.6 on 11/16; she presented w/ creatinine 4.4 on 11/13, which is up from 3.5 at the time of discharge about a month ago; 3.5 was already rapidly progressive CKD. creatinine remains plateau'd in mid 4's for several days now. Hemoglobin was 5.5 on admission. Blood pressure has been a bit lower with systolic between 100-120s; and back on low-dose pressor support. Hepatorenal syndrome is diagnosis of exclusion and usually renal function does not improve after volume resuscitation. she is not showing much improvement but also with shock and pressor dependence would be difficult to DX HRS here, given plausible clinical alternatives. Management of ATN is supportive. UA shows ketnouria, chronic inflammation possibly c/w UTI but not definitive; no casts noted and >30 squams/ HPF. -lactic acidemia in setting of sepsis-cultures remain negative so far; lactate down slightly to 7; continue supportive care -actively drinking and not a TIPS or liver txplt candidate; she would not be a dialysis candidate in this clinical context; palliative care following; prognosis poor -Monitor input output to cont -serial chemistries as below (2) Acute blood loss anemia: Due to GI bleed. Continue blood transfusion as needed. No role for Epogen in setting of acute kidney injury; critical care plans serial H&H. (3) Electrolyte abnormality: magnesium has stabilized, phosphorus wnl; iCa just under lower limit of normal; no further repletion needed >repeat bmp daily for now Admission and Anticipated Discharge Date Admission Date: November 14, 2019 Subjective Remains intubated and off of all sedation though minimally responsive CODE STATUS changed to DNR today per discussion with palliative. Back on low-dose Levophed. Oligo anuric. Review of Systems Review of Systems: Unobtainable due to endotracheal tube Physical Exam Constitutional: well developed, well nourished and + mechanically ventilated ENMT: Ears: no external ear abnormality Nose: no external nose abnormality Mouth: + dry oral mucous membranes Neck: no nuchal rigidity Respiratory: normal respiratory effort Auscultation: lungs clear to auscultation bilaterally and + diminished lung sounds Cardiovascular: Rate/Rhythm: regular rhythm and + tachycardic Extremities: + edema (On all extremities, mild) Gastrointestinal (Abdomen): Inspection/Auscultation: + abdomen distended and normal bowel sounds Percussion/Palpation: abdomen soft; abdomen nontender and no guarding Rectal Exam: + heme positive stool Musculoskeletal: Extremities: strength 5/5 throughout Skin: no rashes, warm and dry Results & Data ([facility]) Vital Signs (Past 12 Hours) Vital Signs Temp Pulse Resp BP Pulse Ox 11/18/19 15:57 94 H 20 99 11/18/19 14:53 92 H 91/53 L 99 11/18/19 14:45 90 99 11/18/19 14:30 90 97 11/18/19 14:15 88 98 11/18/19 14:00 89 98 11/18/19 13:53 84 97/57 L 100 11/18/19 13:45 87 100 11/18/19 13:39 91 H 20 99 11/18/19 13:30 91 H 99 11/18/19 13:15 84 98 11/18/19 13:00 83 99 11/18/19 12:53 85 93/50 L 99 11/18/19 12:45 84 98 11/18/19 12:30 87 98 11/18/19 12:15 89 99 11/18/19 12:00 97 H 98 11/18/19 11:59 99 H 83/51 L 98 11/18/19 11:45 90 100 11/18/19 11:30 85 100 11/18/19 11:15 87 100 11/18/19 11:00 89 100 11/18/19 10:53 83 105/63 100 11/18/19 10:45 83 99 11/18/19 10:40 88 19 100 11/18/19 10:30 87 99 11/18/19 10:15 79 100 11/18/19 10:00 81 100 11/18/19 09:53 82 84/47 L 100 11/18/19 09:45 82 100 11/18/19 09:30 84 100 11/18/19 09:15 83 100 11/18/19 09:00 84 100 11/18/19 08:54 86 100 11/18/19 08:53 83 93/51 L 100 11/18/19 08:30 85 100 11/18/19 08:00 36.4 C L 85 100 11/18/19 07:58 89 20 100 11/18/19 07:53 89 94/57 L 100 11/18/19 07:30 94 H 95 11/18/19 07:00 85 100 11/18/19 06:53 86 103/60 100 11/18/19 06:30 80 100 11/18/19 06:00 83 100 11/18/19 05:53 84 99/55 L 100 11/18/19 05:30 85 100 11/18/19 05:20 20 11/18/19 05:00 90 99 Laboratory Results 11/18/19 04:55 11/18/19 04:55 (1) Acute renal failure (ARF) Acute renal failure type: unspecified Qualified Code(s): N17.9 - Acute kidney failure, unspecified
[2019-11-19] MEDS: INSULIN ASPART 100 UNITS/ML 3 ML PEN SC SCH ×4 (00:28→18:02)
[2019-11-19] MEDS: metroNIDAZOLE 500 MG/100 ML BAG IV SCH ×3 (02:18→18:01)
[2019-11-19 04:27] LABS: Hematocrit (blood only) 25.6 % (37-47); Hemoglobin 9.2 g/dL (12.0-16.0); Mean Corpuscular Hemoglobin 32.5 pg (25-34); Mean Corpuscular Hgb Conc 35.9 g/dL (32-36); Mean Corpuscular Volume 90.5 fL (80-100); RDW Coefficient of Variation 18.3 % (11.5-14.5); Red Blood Count 2.83 M/uL (4.2-5.4); White Blood Count 11.34 K/uL (4.8-10.8)
[2019-11-19 04:28] LABS: Base Excess ABG -4.1 mEq/L (-9-1.8); HCO3 ABG 20 mmol/L (19-24); Oxygen Saturation ABG 97.4 % (90-95); PCO2 ABG 30 mmHg (35-46); PO2 ABG 106 mmHg (80-95); pH ABG 7.43 (7.35-7.45)
[2019-11-19 04:33] LABS: Allen Test ART LINE (Pos)
[2019-11-19 04:43] LABS: INR 5.1 (0.9-1.1)
[2019-11-19 04:55] LABS: Alanine Aminotransferase < 6 U/L (12-78); Albumin Level 2.2 gm/dl (3.4-5.0); Alkaline Phosphatase 94 U/L (45-117); Aspartate Aminotransferase 25 U/L (15-37); BUN Creatinine Ratio 9.4 (10-20); Bilirubin,Total 10.2 mg/dl (0.2-1); Blood Urea Nitrogen 47 mg/dl (7-18); Calcium 8.1 mg/dl (8.5-10.1); Carbon Dioxide 20 mmol/L (21-32); Chloride 95 mmol/L (98-107); Est GFR (African American) 10.6; Est GFR (Non-African American) 9.1; Glucose 116 mg/dl (70-99); Phosphorus 2.5 mg/dl (2.5-4.9); Potassium 3.9 mmol/L (3.5-5.1); Sodium 128 mmol/L (136-145); Total Protein 6.1 gm/dl (6.4-8.2)
[2019-11-19 05:48] LABS: Mean Platelet Volume 11.2 fL (7.4-10.4); Platelet Count 37 K/uL (130-400)
[2019-11-19] MEDS: NOREPINEPHRINE BIT INJ 8 MG in DEXTROSE 5% 500 ML IV SCH ×2 (08:22→17:00)
[2019-11-19] MEDS: FOLIC ACID 1 MG in SYRINGE 9.8 ML IV SCH (09:00)
[2019-11-19] MEDS: PANTOprazole 40 MG in SYRINGE 0 ML IV SCH ×2 (09:00→23:21)
[2019-11-19] MEDS: UMECLIDINIUM BROMIDE 62.5MCG/BLISTER 7 PUFFS/INHALER INH SCH (09:00)
[2019-11-19] MEDS: cefTRIAXone SODIUM 2,000 MG in DEXTROSE 5% 50 ML IV SCH (09:02)
--- NOTE | 2019-11-19 09:36 | Critical Care Progress Note ---
Date of Service November 19, 2019 Assessment & Plan (1) Hepatic encephalopathy: (1) Admitted to intensive care unit: Reason Critically Ill: 54-year-old female with altered mental status in the setting of presumed upper GI bleed with supratherapeutic INR requiring close hemodynamic monitoring in the setting of above. NEURO - Acute encephalopathy -Hepatic encephalopathy: -Passing stools secondary to GI bleeding -Rifaximin: 550 twice daily: Will consider reinitiation if we are able to place a course safe -Lactulose 3 times daily as needed titrate to 3 bowel movements daily: Holding secondary to lack of NG access -Course safe placement will be performed by myself after discussion with family today as we may transition to comfort measures and limit aggressiveness -Suspect metabolic component: Sepsis - Holding all sedatives, at risk for cerebral edema -Osmolality minimally elevated CARDIAC/VASCULAR - Hypotension: Sepsis versus type II ischemia: Worsening -Elevated troponin: Improving -With normal echocardiogram this is likely demand ischemia, sepsis related myocardial dysfunction, acute kidney injury -Transfusion hemoglobin still 7 -Repeat EKG no particular ST changes will remain at 7 for goal hemoglobin Paroxysmal A. fib: Currently normal sinus rhythm -anticoagulated with Coumadin for long-term anticoagulation as outpatient -Risk of bleeding outweighs risk of thrombosis secondary to A. 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 Portal vein thrombosis -Grade 2 esophageal varices banded 11/14/2019 -Rectal varices with intervention 11/14/2019 -Vasopressin discontinued, octreotide: Discontinued 11/16, norepinephrine: Discontinued, phenylephrine: Phenylephrine off -Midodrine on hold: Secondary to no NG access: Pending family discussion today -Protonix infusion: Discontinued 11/16 currently twice daily IV 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 Not candidate for transplant Not candidate for TIPS given likely serna of infection. NG access: In discussions with family it does sound we are moving towards comfort measures: I feel that this procedure is high risk with minimal gain we will continue to hold at this time RENAL/LYTES - Acute renal failure: Continued climbing creatinine -Possible hepatorenal syndrome: Probable ATN Lactic acidosis (metabolic high gap acidosis): -Bicarb infusion: Discontinued Nephrology consulted: Reviewed recommendations Azotemia: Secondary to chronic kidney disease and GI bleeding Hypokalemia: Improved Hypomagnesemia: Improved Hypocalcemia: Improved - Narvaez to be placed - Strict I&Os. ENDO - DMII Hyperglycemia: Resolved Hypoglycemia: Resolved -Only correction factor for elevated blood sugars is ordered HEME - Acute blood loss anemia: 2/2 GIB. Supratherapeutic INR -Patient has received multiple doses of IV vitamin K without response Trend H&H. ID - SBP Prophylaxis: She will be treated for 7 days duration of therapy with a combination of ertapenem de-escalated to Rocephin Urine culture does not meet threshold for colony-forming units to be considered acute urinary tract infection -The Rocephin coverage for SBP should be adequate for urinary pathogens Sepsis secondary to C. difficile colitis -IV Flagyl in addition to rectal vancomycin, unable to give oral vancomycin secondary to recent banding of esophageal varices in the setting of life-threatening hemorrhage -She will need total treatment of 14 days minimum past the last day of administration of Rocephin -I would consider this to be maximum therapy, patient would not likely survive the operation of colectomy: -Devlin calculator postoperative mortality in patients with cirrhosis has 7-day probability of mortality at 75% 30-day mortality and longer greater than 99% LINES/IV ACCESS - Femoral central venous access, femoral arterial line placed 11/15/2019 -As it appears the plan is to have family members visit tomorrow and then proceed with comfort measures I feel it is appropriate to discontinue the femoral line over infectious concerns and proceed with utilization of peripheral IVs for vasoactive medications at this time. DVT PROPHYLAXIS - Hold on chemoprophylaxis 2/2 GIB. SCDs CODE STATUS: Full -Palliative care consulted for goals of care -Discussed with Donis. Reports family feels they should "let her go" at this time there is in anticipation of 3 family members to visit who should be arriving locally today. He was planning on having those family members arrive at the hospital sometime tomorrow afternoon. By all indications I understand the family's wishes to be moving towards total comfort care and terminal extubation. I have emphasized that we will not be performing heroic efforts should the patient's enter cardio pulmonary arrest. We will continue with our current care. Not withstanding I feel NG tube/course safe placement given the supratherapeutic INR and recent procedure is relatively contraindicated given the minimal gain for the above timeline. Additionally I think the infectious risk posed by the central line outweighs the risk of thrombophlebitis utilizing peripheral IVs as well as outweighs the risk of additional central venous access. Patient was discussed in multidisciplinary rounds I do believe the patient is in end-stage medical condition without chance of meaningful recovery. If family opts to pursue comfort care and terminal extubation I would be in agreement with this. 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 difficile enteritis: Admission and Anticipated Discharge Date Admission Date: November 14, 2019 Review of Systems Review of Systems: Unobtainable due to endotracheal tube Physical Exam Physical Exam: General: Unresponsive, has cough, breathing over vent, reacts/withdraws to painful stimuli Skin: Cool, dry, diffuse edema Head: Atraumatic Ears, nose, mouth and throat: obscured by endotracheal tube, dry mucous membranes Cardiovascular: sluggish capillary refill Respiratory: no respiratory distress, scattered rhonchi Gastrointestinal: No organomegaly, presumptive ascites, nonrigid Musculoskeletal: No deformity Results & Data Results & Data ([facility]) Vital Signs (Past 12 Hours) Vital Signs Temp Pulse Resp BP Pulse Ox 11/19/19 07:36 90 20 100 11/19/19 05:53 85 104/58 L 99 11/19/19 04:53 94 H 108/66 98 11/19/19 04:52 89 20 98 11/19/19 03:53 36.5 C 84 101/60 99 11/19/19 02:53 86 99/60 L 98 11/19/19 02:07 93 H 20 93 11/19/19 01:53 94 H 97/47 L 94 11/19/19 01:34 98 H 105/73 99 11/19/19 00:53 84 98/56 L 100 11/19/19 00:00 91 H 11/18/19 23:53 36.5 C 86 97/55 L 100 11/18/19 22:59 87 20 100 11/18/19 22:53 87 95/56 L 100 11/18/19 21:53 87 96/58 L 100 Laboratory Results 11/19/19 11/19/19 11/19/19 Range/Units 06:14 04:13 04:13 WBC 11.34 H (4.8-10.8) K/uL RBC 2.83 L (4.2-5.4) M/uL Hgb 9.2 L (12.0-16.0) g/dL Hct 25.6 L (37-47) % MCV 90.5 (80-100) fL MCH 32.5 (25-34) pg MCHC 35.9 (32-36) g/dL RDW Std Deviation 58.0 H (36.4-46.3) fL RDW Coeff of Ally 18.3 H (11.5-14.5) % Plt Count 37 L (130-400) K/uL MPV 11.2 H (7.4-10.4) fL PT (9.0-12.0) Seconds INR (0.9-1.1) ABG pH 7.43 (7.35-7.45) ABG pCO2 30 L (35-46) mmHg ABG pO2 106 H (80-95) mmHg ABG HCO3 20 (19-24) mmol/L ABG O2 Saturation 97.4 H (90-95) % ABG Base Excess -4.1 (-9-1.8) mEq/L Moncho Test ART LINE (Pos) Barometric Pressure 736.1 mm/Hg Oxygen Given 30% FiO2 Sodium (136-145) mmol/L Potassium (3.5-5.1) mmol/L Chloride (98-107) mmol/L Carbon Dioxide (21-32) mmol/L Anion Gap (3-11) BUN (7-18) mg/dl Creatinine (0.6-1.2) mg/dl Est Cr Clr Drug Dosing ml/min Est GFR ( Amer) Est GFR (Non-Af Amer) BUN/Creatinine Ratio (10-20) Glucose (70-99) mg/dl POC Glucose (other) 109 H (70-99) mg/dl Calcium (8.5-10.1) mg/dl Ionized Calcium (1.12-1.32) mmol/L Phosphorus (2.5-4.9) mg/dl Magnesium (1.8-2.4) mg/dl Total Bilirubin (0.2-1) mg/dl Direct Bilirubin (0-0.2) mg/dl AST (15-37) U/L ALT (12-78) U/L Alkaline Phosphatase (45-117) U/L Total Protein (6.4-8.2) gm/dl Albumin (3.4-5.0) gm/dl 11/19/19 11/19/19 11/19/19 Range/Units 04:13 04:13 04:13 WBC (4.8-10.8) K/uL RBC (4.2-5.4) M/uL Hgb (12.0-16.0) g/dL Hct (37-47) % MCV (80-100) fL MCH (25-34) pg MCHC (32-36) g/dL RDW Std Deviation (36.4-46.3) fL RDW Coeff of Ally (11.5-14.5) % Plt Count (130-400) K/uL MPV (7.4-10.4) fL PT 49.0 H (9.0-12.0) Seconds INR 5.1 H (0.9-1.1) ABG pH (7.35-7.45) ABG pCO2 (35-46) mmHg ABG pO2 (80-95) mmHg ABG HCO3 (19-24) mmol/L ABG O2 Saturation (90-95) % ABG Base Excess (-9-1.8) mEq/L Moncho Test (Pos) Barometric Pressure mm/Hg Oxygen Given Sodium 128 L (136-145) mmol/L Potassium 3.9 (3.5-5.1) mmol/L Chloride 95 L (98-107) mmol/L Carbon Dioxide 20 L (21-32) mmol/L Anion Gap 13.0 H (3-11) BUN 47 H (7-18) mg/dl Creatinine 4.96 H* (0.6-1.2) mg/dl Est Cr Clr Drug Dosing 15.0 ml/min Est GFR ( Amer) 10.6 Est GFR (Non-Af Amer) 9.1 BUN/Creatinine Ratio 9.4 L (10-20) Glucose 116 H (70-99) mg/dl POC Glucose (other) (70-99) mg/dl Calcium 8.1 L (8.5-10.1) mg/dl Ionized Calcium 1.08 L (1.12-1.32) mmol/L Phosphorus 2.5 (2.5-4.9) mg/dl Magnesium 2.0 (1.8-2.4) mg/dl Total Bilirubin 10.2 H (0.2-1) mg/dl Direct Bilirubin 7.0 H (0-0.2) mg/dl AST 25 (15-37) U/L ALT < 6 L (12-78) U/L Alkaline Phosphatase 94 (45-117) U/L Total Protein 6.1 L (6.4-8.2) gm/dl Albumin 2.2 L (3.4-5.0) gm/dl 11/18/19 11/18/19 11/18/19 Range/Units 23:58 17:23 12:06 WBC (4.8-10.8) K/uL RBC (4.2-5.4) M/uL Hgb (12.0-16.0) g/dL Hct (37-47) % MCV (80-100) fL MCH (25-34) pg MCHC (32-36) g/dL RDW Std Deviation (36.4-46.3) fL RDW Coeff of Ally (11.5-14.5) % Plt Count (130-400) K/uL MPV (7.4-10.4) fL PT (9.0-12.0) Seconds INR (0.9-1.1) ABG pH (7.35-7.45) ABG pCO2 (35-46) mmHg ABG pO2 (80-95) mmHg ABG HCO3 (19-24) mmol/L ABG O2 Saturation (90-95) % ABG Base Excess (-9-1.8) mEq/L Moncho Test (Pos) Barometric Pressure mm/Hg Oxygen Given Sodium (136-145) mmol/L Potassium (3.5-5.1) mmol/L Chloride (98-107) mmol/L Carbon Dioxide (21-32) mmol/L Anion Gap (3-11) BUN (7-18) mg/dl Creatinine (0.6-1.2) mg/dl Est Cr Clr Drug Dosing ml/min Est GFR ( Amer) Est GFR (Non-Af Amer) BUN/Creatinine Ratio (10-20) Glucose (70-99) mg/dl POC Glucose (other) 96 99 96 (70-99) mg/dl Calcium (8.5-10.1) mg/dl Ionized Calcium (1.12-1.32) mmol/L Phosphorus (2.5-4.9) mg/dl Magnesium (1.8-2.4) mg/dl Total Bilirubin (0.2-1) mg/dl Direct Bilirubin (0-0.2) mg/dl AST (15-37) U/L ALT (12-78) U/L Alkaline Phosphatase (45-117) U/L Total Protein (6.4-8.2) gm/dl Albumin (3.4-5.0) gm/dl Coding Level of Care Code Critical Care 1st 30-74 mins Diagnoses Hepatic encephalopathy K72.90 GI hemorrhage K92.2 GI bleed type/associated pathology: unspecified gastrointestinal hemorrhage type Liver disease due to alcohol K70.9 Supratherapeutic international normalized ratio (INR) R79.1 Cirrhosis K74.60 Thrombosis, portal vein I81 Acute blood loss anemia D62 UGIB (upper gastrointestinal bleed) K92.2 C. difficile enteritis A04.72 Time Spent (min) 65 Comment I have personally spent 65 minutes of critical care time in the direct management of this patient. This is a life/limb threatening event. This includes time spent evaluating patient, direct bedside care, chart review, placing orders, interpretation of diagnostic studies, discussion with consultants, patient, and/or family members regarding treatment decisions, as well as other required patient management activities. This time is exclusive of all separately billable procedures, and teaching time and separate from and in addition to any other critical care service time. (1) GI hemorrhage GI bleed type/associated pathology: unspecified gastrointestinal hemorrhage type Qualified Code(s): K92.2 - Gastrointestinal hemorrhage, unspecified
--- NOTE | 2019-11-19 18:53 | Hospitalist Progress Note ---
Date of Service November 19, 2019 Assessment & Plan (1) AMS (altered mental status): (2) Hepatic encephalopathy: (3) Liver disease due to alcohol: (4) Cirrhosis: Acute Hepatic encephalopathy Shock Septic Vs hemorrhagic Lactic Acidosis MELD:40 Not considered a candidate for TIPS/Liver transplant:actively drinking Blood cultures: Negative to date IV Vancomycin, Ertapenem transitioned to Ceftriaxone Requiring pressors Appreciate GI Input lactulose, rifaximin on hold Diagnostic paracentesis not suggestive of SBP Prognosis is guarded Code status changed to DNI/DNR Clinically deteriorating Likely plan to be transition to comfort measures, terminal extubation tomorrow if patient's family agrees Continue current management follow-up C diff Colitis Received Vancomycin Enema Continue IV flagyl Monitor volume status (5) GI hemorrhage: (6) Supratherapeutic international normalized ratio (INR): (7) Acute blood loss anemia: Acute GI bleed in patient with decompensated alcoholic cirrhosis In setting of Supratherapeutic INR due to coumadin -S/P EGD: No evidence of active or recent bleeding to suggest an upper GI source. Non-bleeding grade II esophageal varices. Banded. Portal hypertensive gastropathy. Normal duodenal bulb and second portion of the duodenum. A single duodenal nodule. -S/P Sigmoidoscopy: The examined portion of the ileum was normal. The sigmoid to cecum is normal with adherent brown stool. Blood in the rectum. Actively bleeding spot in the rectum, this could be from a small deep rectal varix, could not be banded, injected with Ethanolamine and clips were placed resulting in adequate hemostasis. Non-bleeding internal hemorrhoids. S/P PRBC, FFP, vitamin K and Kcentra --Received Octreotide -On IV PPI -Continue to hold Coumadin -Monitor CBC (8) Elevated troponin: Likely from demand from blood loss anemia Echo: The left ventricular wall motion is normal at rest. Hypokalemia Hypomagnesemia Hypocalcemia Replete electrolytes as needed Acute Kidney Injury Likely Ischemic ATN from shock due to GI bleed ? Hepatorenal Syndrome Appreciate Nephrology Input Monitor renal function Worsening renal function Paroxysmal atrial fibrillation Rate is fairly controlled IV Lopressor PRN Anticoagulation held due to GI bleed (9) Sleep apnea: Currently on Vent (10) Thrombosis, portal vein: Coumadin on hold due to GI bleeding (11) Schizoaffective disorder: Not on any meds for now We will reevaluate once medically stabilized (12) COPD (chronic obstructive pulmonary disease): Stable Continue home inhalers DVT Px: SCDs Re: GI bleeding Code Status DNI/DNR Palliative care on board Clinically deteriorating Poor Prognosis Admission and Anticipated Discharge Date Admission Date: November 14, 2019 Subjective Patient is seen and examined at bedside Remains encephalopathic Continues to be on vent Likely plan to be transition to comfort measures tomorrow Significant bleeding, diarrhea as per RN Clinically deteriorating Review of Systems Review of Systems: Unobtainable due to endotracheal tube Physical Exam Physical Exam: Physical Exam: Vitals signs as noted above General Appearance:Moderately built and nourished, no apparent distress, Intubated Head: normocephalic, Atraumatic Eyes: normal inspection Neck: supple, Trachea midline Respiratory/Chest: Normal breath sounds, scattered rhonchi Cardiovascular: S1, S2, No murmur Abdomen/GI:Soft, Non tender, Bowel sounds present Extremities/Musculoskelatal:normal inspection, no edema Neurologic/Psych: Complete neuro exam could not be performed. Skin: normal color, warm Results & Data Results & Data ([facility]) Vital Signs (Past 12 Hours) Vital Signs Temp Pulse Resp BP Pulse Ox 11/19/19 17:53 99 H 97/52 L 94 11/19/19 17:30 98 H 20 92 11/19/19 17:00 101 H 92 11/19/19 16:54 101 H 82/57 L 92 11/19/19 16:00 95 H 82/57 L 93 11/19/19 15:54 95 H 107/58 L 93 11/19/19 15:00 94 H 92 11/19/19 14:53 95 H 101/56 L 95 11/19/19 14:17 96 H 20 93 11/19/19 14:00 37.2 C 93 H 93 11/19/19 13:53 94 H 99/59 L 92 11/19/19 13:00 97 H 91 11/19/19 12:53 87 107/59 L 97 11/19/19 12:00 85 98 11/19/19 11:57 86 104/48 L 11/19/19 11:53 83 103/66 97 11/19/19 11:10 86 20 94 11/19/19 11:00 88 94 11/19/19 10:53 93 H 106/58 L 93 11/19/19 10:00 89 89 L 11/19/19 09:53 90 97/60 L 89 L 11/19/19 09:00 37.2 C 92 H 98 11/19/19 08:53 85 101/59 L 99 11/19/19 08:00 90 101/59 L 98 11/19/19 07:53 85 115/71 98 11/19/19 07:36 90 20 100 11/19/19 07:00 85 98 11/19/19 06:53 88 115/66 99 Laboratory Results Short CBC 11/19/19 Range/Units 04:13 WBC 11.34 H (4.8-10.8) K/uL Hgb 9.2 L (12.0-16.0) g/dL Hct 25.6 L (37-47) % Plt Count 37 L (130-400) K/uL BMP 11/19/19 04:13 Sodium 128 L Potassium 3.9 Chloride 95 L Carbon Dioxide 20 L BUN 47 H Creatinine 4.96 H* Glucose 116 H Calcium 8.1 L Liver Function 11/19/19 Range/Units 04:13 Total Bilirubin 10.2 H (0.2-1) mg/dl Direct Bilirubin 7.0 H (0-0.2) mg/dl AST 25 (15-37) U/L ALT < 6 L (12-78) U/L Alkaline Phosphatase 94 (45-117) U/L Albumin 2.2 L (3.4-5.0) gm/dl (1) GI hemorrhage GI bleed type/associated pathology: unspecified gastrointestinal hemorrhage type Qualified Code(s): K92.2 - Gastrointestinal hemorrhage, unspecified (2) Schizoaffective disorder Schizoaffective disorder type: unspecified Qualified Code(s): F25.9 - Schizoaffective disorder, unspecified
[2019-11-20] MEDS ORDERED: STAT IV Infusion **Titration per Protocol STA (00:49)
[2019-11-20] MEDS: VASOPRESSIN 20 UNITS in 0.9 % SODIUM CHLORIDE 100 ML IV SCH ×2 (01:29→09:04)
[2019-11-20] MEDS: NOREPINEPHRINE BIT INJ 8 MG in DEXTROSE 5% 500 ML IV SCH ×4 (03:42→16:12)
[2019-11-20] MEDS: metroNIDAZOLE 500 MG/100 ML BAG IV SCH ×2 (03:44→08:52)
[2019-11-20 04:46] LABS: Prothrombin Time 67.9 Seconds (9.0-12.0)
[2019-11-20 04:49] LABS: INR 7.2 (0.9-1.1)
[2019-11-20] MEDS ORDERED: PHYTONADIONE 5 MG in SODIUM CHLORIDE 0.9% 50 ML IV ONE (05:00)
[2019-11-20 05:24] LABS: Alanine Aminotransferase < 6 U/L (12-78); Albumin Level 2.1 gm/dl (3.4-5.0); Alkaline Phosphatase 97 U/L (45-117); Aspartate Aminotransferase 27 U/L (15-37); BUN Creatinine Ratio 8.9 (10-20); Bilirubin Direct 7.2 mg/dl (0-0.2); Bilirubin,Total 9.8 mg/dl (0.2-1); Blood Urea Nitrogen 49 mg/dl (7-18); Calcium 8.5 mg/dl (8.5-10.1); Carbon Dioxide 19 mmol/L (21-32); Chloride 93 mmol/L (98-107); Creatinine Clr Calc Pharmacy 13.5 ml/min; Est GFR (African American) 9.4; Est GFR (Non-African American) 8.1; Glucose 143 mg/dl (70-99); Magnesium 1.9 mg/dl (1.8-2.4); Phosphorus 2.7 mg/dl (2.5-4.9); Potassium 3.9 mmol/L (3.5-5.1); Sodium 127 mmol/L (136-145); Total Protein 6.1 gm/dl (6.4-8.2)
[2019-11-20 05:30] LABS: iSTAT Arterial Blood Gas HCO3 18 meg/L (19-24); iSTAT Arterial Blood Gas pCO2 28 mmHg (35-46); iSTAT Arterial Blood Gas pH 7.42 (7.35-7.45); iSTAT Arterial Blood Gas pO2 79 mmHg (80-95); iSTAT Carbon Dioxide 19 mmol/L (24-31); iSTAT FiO2 30 %; iSTAT Site Art Line
[2019-11-20 05:35] LABS: Hematocrit (blood only) 25.9 % (37-47); Hemoglobin 9.1 g/dL (12.0-16.0); Mean Corpuscular Hemoglobin 32.2 pg (25-34); Mean Corpuscular Hgb Conc 35.1 g/dL (32-36); Mean Corpuscular Volume 91.5 fL (80-100); Mean Platelet Volume 11.1 fL (7.4-10.4); Platelet Count 31 K/uL (130-400); Platelet Estimate SIGNIFIC DECREASED (Normal); RDW Coefficient of Variation 18.4 % (11.5-14.5); Red Blood Count 2.83 M/uL (4.2-5.4); White Blood Count 15.56 K/uL (4.8-10.8)
[2019-11-20] MEDS: INSULIN ASPART 100 UNITS/ML 3 ML PEN SC SCH ×3 (07:08→12:43)
--- NOTE | 2019-11-20 08:40 | XRay Report ---
XR chest 1V portable HISTORY: resp failure COMPARISON: Chest 11/18/2019. FINDINGS: The endotracheal tube terminates approximately 2 cm from the anya. No pneumothorax. Low l john volumes. The heart remains mildly enlarged. There is a new right lower lobe airspace opacity. The re is also increased density within the right medial lung base. Progressive volume loss within the ri ght hemithorax. IMPRESSION: 1. Endotracheal tube terminates 2 cm from the anya. 2. There is a new right basilar airspace opacity concerning for pneumonia. There is also progressive density within the right medial lung base which could represent partial collapse of the right middle lobe given the volume loss within the right hemithorax. ACT 112: Negative or not required by law. Electronically signed by: Vipul Gilmore M.D. 11/20/2019 8:38 AM
[2019-11-20] MEDS: PANTOprazole 40 MG in SYRINGE 0 ML IV SCH (08:52)
[2019-11-20] MEDS: cefTRIAXone SODIUM 2,000 MG in DEXTROSE 5% 50 ML IV SCH (08:52)
[2019-11-20] MEDS: FOLIC ACID 1 MG in SYRINGE 9.8 ML IV SCH (08:52)
[2019-11-20] MEDS: UMECLIDINIUM BROMIDE 62.5MCG/BLISTER 7 PUFFS/INHALER INH SCH (08:53)
--- NOTE | 2019-11-20 10:14 | Critical Care Progress Note ---
Date of Service November 20, 2019 Assessment & Plan (1) Hepatic encephalopathy: (1) Admitted to intensive care unit: Reason Critically Ill: 54-year-old female with altered mental status in the setting of presumed upper GI bleed with supratherapeutic INR requiring close hemodynamic monitoring in the setting of above. NEURO - Acute encephalopathy -Hepatic encephalopathy: -Passing stools secondary to GI bleeding -Rifaximin: 550 twice daily: Will consider reinitiation if we are able to place a course safe -Lactulose 3 times daily as needed titrate to 3 bowel movements daily: Holding secondary to lack of NG access -Course safe placement will be performed by myself after discussion with family today as we may transition to comfort measures and limit aggressiveness -Suspect metabolic component: Sepsis - Holding all sedatives: No improvement in mental state CARDIAC/VASCULAR - Hypotension: Worsening -Component of multi organ dysfunction syndrome: End-stage liver disease, renal failure, sepsis Paroxysmal A. fib: Currently normal sinus rhythm -anticoagulated with Coumadin for long-term anticoagulation as outpatient -Risk of bleeding outweighs risk of thrombosis secondary to A. fib RESPIRATORY - Respiratory failure -Minimal vent settings, chest x-ray clear -Contraindications to extubation at this time are tachypnea and somnolence and vasoactive medication requirements GI/NUTRITION - GI Bleed: -Secondary to cirrhosis Cirrhosis: Alcoholic with complications of portal vein thrombosis Portal vein thrombosis -Grade 2 esophageal varices banded 11/14/2019 -Rectal varices with intervention 11/14/2019 -Vasopressin discontinued, octreotide: Discontinued 11/16, norepinephrine: Discontinued, phenylephrine: Phenylephrine off -Midodrine on hold: Secondary to no NG access: Pending family discussion today -Protonix infusion: Discontinued 11/16 currently twice daily IV End-stage liver disease secondary to cirrhosis -Meld up trending: I believe this is an end-stage terminal illness without meaningful chance of recovery Hyperammonemia: Not candidate for transplant Not candidate for TIPS given likely serna of infection. NG access: In discussions with family it does sound we are moving towards comfort measures: I feel that this procedure is high risk with minimal gain we will continue to hold at this time RENAL/LYTES - Acute renal failure: Continued climbing creatinine -Possible hepatorenal syndrome: Probable ATN Lactic acidosis (metabolic high gap acidosis): -Bicarb infusion: Discontinued Nephrology consulted: Reviewed recommendations Azotemia: Secondary to chronic kidney disease and GI bleeding Hypokalemia: Improved Hypomagnesemia: Improved Hypocalcemia: Improved - Narvaez to be placed - Strict I&Os. ENDO - DMII Hyperglycemia: Resolved Hypoglycemia: Resolved -Only correction factor for elevated blood sugars is ordered HEME - Acute blood loss anemia: 2/2 GIB. Supratherapeutic INR -Patient has received multiple doses of IV vitamin K without response Trend H&H. ID - SBP Prophylaxis: She will be treated for 7 days duration of therapy with a combination of ertapenem de-escalated to Rocephin Urine culture does not meet threshold for colony-forming units to be considered acute urinary tract infection -The Rocephin coverage for SBP should be adequate for urinary pathogens Sepsis secondary to C. difficile colitis -IV Flagyl in addition to rectal vancomycin, unable to give oral vancomycin secondary to recent banding of esophageal varices in the setting of life-threatening hemorrhage -She will need total treatment of 14 days minimum past the last day of administration of Rocephin -I would consider this to be maximum therapy, patient would not likely survive the operation of colectomy: -Devlin calculator postoperative mortality in patients with cirrhosis has 7-day probability of mortality at 75% 30-day mortality and longer greater than 99% LINES/IV ACCESS - Femoral central venous access, femoral arterial line placed 11/15/2019 -As it appears the plan is to have family members visit tomorrow and then proceed with comfort measures I feel it is appropriate to discontinue the femoral line over infectious concerns and proceed with utilization of peripheral IVs for vasoactive medications at this time. DVT PROPHYLAXIS - Hold on chemoprophylaxis 2/2 GIB. SCDs CODE STATUS: Full -Palliative care consulted for goals of care -Per discussions with family I anticipate visitation this afternoon and then proceeding with comfort measures. I do believe the patient is in end-stage medical condition without chance of meaningful recovery. If family opts to pursue comfort care and terminal extubation I would be in agreement with this. 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 difficile enteritis: Admission and Anticipated Discharge Date Admission Date: November 14, 2019 Subjective Encephalopathic, continued clinical worsening. Review of Systems Review of Systems: Unobtainable due to endotracheal tube and Unobtainable due to reduced consciousness Physical Exam Physical Exam: General: Unresponsive, has cough, breathing over vent, reacts/withdraws to painful stimuli Skin: Cool, dry, diffuse edema Head: Atraumatic Ears, nose, mouth and throat: obscured by endotracheal tube, dry mucous membranes Cardiovascular: sluggish capillary refill Respiratory: no respiratory distress, scattered rhonchi Gastrointestinal: No organomegaly, presumptive ascites, nonrigid Musculoskeletal: No deformity Results & Data Results & Data ([facility]) Vital Signs (Past 12 Hours) Vital Signs Temp Pulse Resp BP Pulse Ox 11/20/19 07:32 93 H 129/50 L 11/20/19 07:21 93 H 20 94 11/20/19 05:08 84 20 96 11/20/19 04:54 37 C 92 H 103/64 93 11/20/19 04:00 85 131/50 L 11/20/19 03:54 37 C 93 H 102/60 95 11/20/19 02:54 37 C 87 110/70 95 11/20/19 02:31 86 20 93 11/20/19 01:54 37 C 95 H 104/61 93 11/20/19 01:00 95 H 92 11/20/19 00:56 96 H 101/60 93 11/20/19 00:54 37.2 C 96 H 101/60 93 11/20/19 00:47 37.2 C 102 H 69/41 L 93 11/20/19 00:00 97 H 11/19/19 23:54 37.2 C 99 H 88/49 L 97 11/19/19 22:54 37.2 C 99 H 88/45 L 94 11/19/19 22:15 107 H 26 H 92 Laboratory Results 11/20/19 11/20/19 11/20/19 Range/Units 05:48 05:16 03:57 WBC (4.8-10.8) K/uL RBC (4.2-5.4) M/uL Hgb (12.0-16.0) g/dL Hct (37-47) % MCV (80-100) fL MCH (25-34) pg MCHC (32-36) g/dL RDW Std Deviation (36.4-46.3) fL RDW Coeff of Ally (11.5-14.5) % Plt Count (130-400) K/uL MPV (7.4-10.4) fL Platelet Estimate (Normal) PT 67.9 H (9.0-12.0) Seconds INR 7.2 H* (0.9-1.1) Sample Site Art Line POC pH 7.42 (7.35-7.45) POC pCO2 28 L (35-46) mmHg POC pO2 79 L (80-95) mmHg POC HCO3 18 L (19-24) rosario/L POC Total CO2 19 L (24-31) mmol/L POC Base Excess -6.0 (-9-1.8) rosario/L POC ABG O2 Sat 96.0 H (90-95) % Moncho Test NA O2 Delivery Device Ventilator POC O2 Rate 20 Minute Ventilation 8.4 POC FiO2 30 % Tidal Volume 420 PEEP 5 Sodium (136-145) mmol/L Potassium (3.5-5.1) mmol/L Chloride (98-107) mmol/L Carbon Dioxide (21-32) mmol/L Anion Gap (3-11) BUN (7-18) mg/dl Creatinine (0.6-1.2) mg/dl Est Cr Clr Drug Dosing ml/min Est GFR ( Amer) Est GFR (Non-Af Amer) BUN/Creatinine Ratio (10-20) Glucose (70-99) mg/dl POC Glucose 139 H (70-99) mg/dl Calcium (8.5-10.1) mg/dl Phosphorus (2.5-4.9) mg/dl Magnesium (1.8-2.4) mg/dl Total Bilirubin (0.2-1) mg/dl Direct Bilirubin (0-0.2) mg/dl AST (15-37) U/L ALT (12-78) U/L Alkaline Phosphatase (45-117) U/L Total Protein (6.4-8.2) gm/dl Albumin (3.4-5.0) gm/dl 11/20/19 11/20/19 11/20/19 Range/Units 03:57 03:57 00:04 WBC 15.56 H (4.8-10.8) K/uL RBC 2.83 L (4.2-5.4) M/uL Hgb 9.1 L (12.0-16.0) g/dL Hct 25.9 L (37-47) % MCV 91.5 (80-100) fL MCH 32.2 (25-34) pg MCHC 35.1 (32-36) g/dL RDW Std Deviation 60.0 H (36.4-46.3) fL RDW Coeff of Ally 18.4 H (11.5-14.5) % Plt Count 31 L (130-400) K/uL MPV 11.1 H (7.4-10.4) fL Platelet Estimate SIGNIFIC DECREASED (Normal) PT (9.0-12.0) Seconds INR (0.9-1.1) Sample Site POC pH (7.35-7.45) POC pCO2 (35-46) mmHg POC pO2 (80-95) mmHg POC HCO3 (19-24) rosario/L POC Total CO2 (24-31) mmol/L POC Base Excess (-9-1.8) rosario/L POC ABG O2 Sat (90-95) % Moncho Test O2 Delivery Device POC O2 Rate Minute Ventilation POC FiO2 % Tidal Volume PEEP Sodium 127 L (136-145) mmol/L Potassium 3.9 (3.5-5.1) mmol/L Chloride 93 L (98-107) mmol/L Carbon Dioxide 19 L (21-32) mmol/L Anion Gap 15.0 H (3-11) BUN 49 H (7-18) mg/dl Creatinine 5.48 H* D (0.6-1.2) mg/dl Est Cr Clr Drug Dosing 13.5 ml/min Est GFR ( Amer) 9.4 Est GFR (Non-Af Amer) 8.1 BUN/Creatinine Ratio 8.9 L (10-20) Glucose 143 H (70-99) mg/dl POC Glucose 125 H (70-99) mg/dl Calcium 8.5 (8.5-10.1) mg/dl Phosphorus 2.7 (2.5-4.9) mg/dl Magnesium 1.9 (1.8-2.4) mg/dl Total Bilirubin 9.8 H (0.2-1) mg/dl Direct Bilirubin 7.2 H (0-0.2) mg/dl AST 27 (15-37) U/L ALT < 6 L (12-78) U/L Alkaline Phosphatase 97 (45-117) U/L Total Protein 6.1 L (6.4-8.2) gm/dl Albumin 2.1 L (3.4-5.0) gm/dl 11/19/19 11/19/19 Range/Units 18:01 11:51 WBC (4.8-10.8) K/uL RBC (4.2-5.4) M/uL Hgb (12.0-16.0) g/dL Hct (37-47) % MCV (80-100) fL MCH (25-34) pg MCHC (32-36) g/dL RDW Std Deviation (36.4-46.3) fL RDW Coeff of Ally (11.5-14.5) % Plt Count (130-400) K/uL MPV (7.4-10.4) fL Platelet Estimate (Normal) PT (9.0-12.0) Seconds INR (0.9-1.1) Sample Site POC pH (7.35-7.45) POC pCO2 (35-46) mmHg POC pO2 (80-95) mmHg POC HCO3 (19-24) rosario/L POC Total CO2 (24-31) mmol/L POC Base Excess (-9-1.8) rosario/L POC ABG O2 Sat (90-95) % Moncho Test O2 Delivery Device POC O2 Rate Minute Ventilation POC FiO2 % Tidal Volume PEEP Sodium (136-145) mmol/L Potassium (3.5-5.1) mmol/L Chloride (98-107) mmol/L Carbon Dioxide (21-32) mmol/L Anion Gap (3-11) BUN (7-18) mg/dl Creatinine (0.6-1.2) mg/dl Est Cr Clr Drug Dosing ml/min Est GFR ( Amer) Est GFR (Non-Af Amer) BUN/Creatinine Ratio (10-20) Glucose (70-99) mg/dl POC Glucose 137 H 131 H (70-99) mg/dl Calcium (8.5-10.1) mg/dl Phosphorus (2.5-4.9) mg/dl Magnesium (1.8-2.4) mg/dl Total Bilirubin (0.2-1) mg/dl Direct Bilirubin (0-0.2) mg/dl AST (15-37) U/L ALT (12-78) U/L Alkaline Phosphatase (45-117) U/L Total Protein (6.4-8.2) gm/dl Albumin (3.4-5.0) gm/dl Coding Level of Care Code Critical Care 1st 30-74 mins Diagnoses Hepatic encephalopathy K72.90 GI hemorrhage K92.2 GI bleed type/associated pathology: unspecified gastrointestinal hemorrhage type Liver disease due to alcohol K70.9 Supratherapeutic international normalized ratio (INR) R79.1 Cirrhosis K74.60 Thrombosis, portal vein I81 Acute blood loss anemia D62 UGIB (upper gastrointestinal bleed) K92.2 C. difficile enteritis A04.72 Time Spent (min) 35 Comment I have personally spent 35 minutes of critical care time in the direct management of this patient. This is a life/limb threatening event. This includes time spent evaluating patient, direct bedside care, chart review, placing orders, interpretation of diagnostic studies, discussion with consultants, patient, and/or family members regarding treatment decisions, as well as other required patient management activities. This time is exclusive of all separately billable procedures, and teaching time and separate from and in addition to any other critical care service time. (1) GI hemorrhage GI bleed type/associated pathology: unspecified gastrointestinal hemorrhage type Qualified Code(s): K92.2 - Gastrointestinal hemorrhage, unspecified
[2019-11-20] MEDS ORDERED: ONDANSETRON 4 MG OD TAB SL PRN (19:21)
[2019-11-20] MEDS ORDERED: LORazepam 0.5 MG/1 ML VIAL IV PRN (19:21)
[2019-11-20] MEDS ORDERED: ONDANSETRON INJ 2 MG/ML 2 ML VIAL IV PRN (19:21)
[2019-11-20] MEDS ORDERED: LORazepam 0.5 MG TAB PO PRN (19:21)
--- NOTE | 2019-11-20 19:39 | Hospitalist Progress Note ---
Date of Service November 20, 2019 Assessment & Plan (1) AMS (altered mental status): (2) Hepatic encephalopathy: (3) Liver disease due to alcohol: (4) Cirrhosis: Acute Hepatic encephalopathy Shock Septic Vs hemorrhagic Lactic Acidosis MELD:40 Not considered a candidate for TIPS/Liver transplant:actively drinking Blood cultures: Negative to date IV Vancomycin, Ertapenem transitioned to Ceftriaxone Requiring pressors--Continue till family agrees to transition to comfort measures Appreciate GI Input lactulose, rifaximin on hold due to lack of NG access Diagnostic paracentesis not suggestive of SBP Prognosis is guarded Code status changed to DNI/DNR Continues to deteriorate Plan to be transitioned to comfort measures, terminal extubation when patient arrives C diff Colitis Received Vancomycin Enema Continue IV flagyl Monitor volume status (5) GI hemorrhage: (6) Supratherapeutic international normalized ratio (INR): (7) Acute blood loss anemia: Acute GI bleed in patient with decompensated alcoholic cirrhosis In setting of Supratherapeutic INR due to coumadin -S/P EGD: No evidence of active or recent bleeding to suggest an upper GI source. Non-bleeding grade II esophageal varices. Banded. Portal hypertensive gastropathy. Normal duodenal bulb and second portion of the duodenum. A single duodenal nodule. -S/P Sigmoidoscopy: The examined portion of the ileum was normal. The sigmoid to cecum is normal with adherent brown stool. Blood in the rectum. Actively bleeding spot in the rectum, this could be from a small deep rectal varix, could not be banded, injected with Ethanolamine and clips were placed resulting in adequate hemostasis. Non-bleeding internal hemorrhoids. S/P PRBC, FFP, vitamin K and Kcentra --Received Octreotide -On IV PPI -Continue to hold Coumadin -Monitor CBC -INR:7.2 INR currently supratherapeutic (8) Elevated troponin: Likely from demand from blood loss anemia Echo: The left ventricular wall motion is normal at rest. Hypokalemia Hypomagnesemia Hypocalcemia Replete electrolytes as needed Acute Kidney Injury Likely Ischemic ATN from shock due to GI bleed ? Hepatorenal Syndrome Appreciate Nephrology Input Monitor renal function Renal function continues to deteriorate Paroxysmal atrial fibrillation Rate is fairly controlled IV Lopressor PRN Anticoagulation held due to GI bleed (9) Sleep apnea: Currently on Vent (10) Thrombosis, portal vein: Coumadin on hold due to GI bleeding (11) Schizoaffective disorder: Not on any meds for now We will reevaluate once medically stabilized (12) COPD (chronic obstructive pulmonary disease): Stable Continue home inhalers DVT Px: SCDs Re: GI bleeding Code Status DNI/DNR Palliative care on board Clinically deteriorating Poor Prognosis Admission and Anticipated Discharge Date Admission Date: November 14, 2019 Subjective Patient is seen and examined at bedside Encephalopathic, Intubated, On pressors Clinically deteriorating Anticipated to be transitioned to comfort measures when family arrives. 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 Review of Systems Review of Systems: Unobtainable due to endotracheal tube Physical Exam Physical Exam: Physical Exam: Vitals signs as noted above General Appearance:Moderately built and nourished, no apparent distress, Intubated Head: normocephalic, Atraumatic Eyes: normal inspection Neck: supple, Trachea midline Respiratory/Chest: Normal breath sounds, scattered rhonchi Cardiovascular: S1, S2, No murmur Abdomen/GI:Soft, Non tender, Bowel sounds present Extremities/Musculoskelatal:normal inspection, no edema Neurologic/Psych: Complete neuro exam could not be performed. Skin: normal color, warm Results & Data Results & Data ([place]) Vital Signs (Past 12 Hours) Vital Signs Pulse Resp BP Pulse Ox 11/20/19 17:00 105 H 24 97 11/20/19 16:00 103 H 30 H 92 11/20/19 15:15 84 20 92 11/20/19 15:00 98 H 94 11/20/19 14:00 80 96 11/20/19 13:54 94 H 90/44 L 94 11/20/19 13:22 82 20 95 11/20/19 13:00 87 98 11/20/19 12:54 84 120/88 94 11/20/19 12:00 91 H 96 11/20/19 11:54 85 103/58 L 98 11/20/19 11:29 82 147/63 H 11/20/19 11:18 93 H 20 94 11/20/19 11:00 79 96 11/20/19 10:54 78 120/68 94 11/20/19 10:00 83 93 11/20/19 09:54 82 116/52 L 93 11/20/19 09:00 87 94 11/20/19 08:54 83 100/61 92 11/20/19 08:00 88 93 11/20/19 07:54 89 95/61 L 92 Laboratory Results Short CBC 11/20/19 Range/Units 03:57 WBC 15.56 H (4.8-10.8) K/uL Hgb 9.1 L (12.0-16.0) g/dL Hct 25.9 L (37-47) % Plt Count 31 L (130-400) K/uL BMP 11/20/19 03:57 Sodium 127 L Potassium 3.9 Chloride 93 L Carbon Dioxide 19 L BUN 49 H Creatinine 5.48 H* D Glucose 143 H Calcium 8.5 Liver Function 11/20/19 Range/Units 03:57 Total Bilirubin 9.8 H (0.2-1) mg/dl Direct Bilirubin 7.2 H (0-0.2) mg/dl AST 27 (15-37) U/L ALT < 6 L (12-78) U/L Alkaline Phosphatase 97 (45-117) U/L Albumin 2.1 L (3.4-5.0) gm/dl (1) GI hemorrhage GI bleed type/associated pathology: unspecified gastrointestinal hemorrhage type Qualified Code(s): K92.2 - Gastrointestinal hemorrhage, unspecified (2) Schizoaffective disorder Schizoaffective disorder type: unspecified Qualified Code(s): F25.9 - Schizoaffective disorder, unspecified
--- NOTE | 2019-11-21 09:46 | Critical Care Progress Note ---
Date of Service November 21, 2019 Assessment & Plan (1) Hepatic encephalopathy: (1) Admitted to intensive care unit: Reason Critically Ill: 54-year-old female with altered mental status in the setting of presumed upper GI bleed with supratherapeutic INR, with end-stage liver disease now and comfort measures NEURO - Acute encephalopathy -Hepatic encephalopathy: -Passing stools secondary to GI bleeding -Ativan as needed given comfort measures CARDIAC/VASCULAR - Hypotension: -Component of multi organ dysfunction syndrome: End-stage liver disease, renal failure, sepsis Paroxysmal A. fib: Currently normal sinus rhythm -anticoagulated with Coumadin for long-term anticoagulation as outpatient -Risk of bleeding outweighs risk of thrombosis secondary to A. fib RESPIRATORY - Respiratory failure -Extubated for comfort measures GI/NUTRITION - GI Bleed: -Secondary to cirrhosis Cirrhosis: Alcoholic with complications of portal vein thrombosis Portal vein thrombosis -Grade 2 esophageal varices banded 11/14/2019 -Rectal varices with intervention 11/14/2019 End-stage liver disease secondary to cirrhosis -This is an end-stage terminal illness without meaningful chance of recovery Hyperammonemia: Not candidate for transplant Not candidate for TIPS given likely serna of infection. RENAL/LYTES - Acute renal failure: Lactic acidosis (metabolic high gap acidosis): Nephrology consulted: Reviewed recommendations Azotemia: Secondary to chronic kidney disease and GI bleeding ENDO - DMII HEME - Acute blood loss anemia: 2/2 GIB. Supratherapeutic INR -Patient has received multiple doses of IV vitamin K without response ID - SBP Prophylaxis: Discontinued antibiotics as patient is expected management with comfort measures Sepsis secondary to C. difficile colitis Discontinued antibiotics LINES/IV ACCESS - Femoral central venous access, maintaining femoral line for access, comfort measures DVT PROPHYLAXIS - Chemical prophylaxis contraindicated CODE STATUS: DO NOT RESUSCITATE -Comfort measures -Expectant management (2) AMS (altered mental status): (3) UGIB (upper gastrointestinal bleed): (4) Acute blood loss anemia: (5) Thrombosis, portal vein: (6) Cirrhosis: (7) Hepatorenal syndrome: (8) Acute renal failure: (9) Supratherapeutic international normalized ratio (INR): (10) Paroxysmal atrial fibrillation: (11) Ascites: (12) DM type 2 (diabetes mellitus, type 2): Patient is stable for downgrade out of ICU. (2) GI hemorrhage: (3) Liver disease due to alcohol: (4) Supratherapeutic international normalized ratio (INR): (5) Cirrhosis: (6) Thrombosis, portal vein: (7) Acute blood loss anemia: (8) UGIB (upper gastrointestinal bleed): (9) C. difficile enteritis: Admission and Anticipated Discharge Date Admission Date: November 14, 2019 Subjective No overnight events. Patient extubated yesterday proceeding with comfort measures. Unresponsive, appears comfortable Review of Systems Review of Systems: Unobtainable due to reduced consciousness Physical Exam Physical Exam: General: Unresponsive. Cool to touch. Skin: Cool, dry, Head: Atraumatic Ears, nose, mouth and throat: airway patent Cardiovascular: Decreased capillary refill Respiratory: no respiratory distress Gastrointestinal: Positive fluid wave of ascites Musculoskeletal: No deformity Results & Data Results & Data ([facility]) Laboratory Results 11/20/19 Range/Units 12:41 POC Glucose 168 H (70-99) mg/dl Coding Level of Care Code 25292 Subseq Hosp Care Lvl 2 Diagnoses Hepatic encephalopathy K72.90 GI hemorrhage K92.2 GI bleed type/associated pathology: unspecified gastrointestinal hemorrhage type Liver disease due to alcohol K70.9 Supratherapeutic international normalized ratio (INR) R79.1 Cirrhosis K74.60 Thrombosis, portal vein I81 Acute blood loss anemia D62 UGIB (upper gastrointestinal bleed) K92.2 C. difficile enteritis A04.72 (1) GI hemorrhage GI bleed type/associated pathology: unspecified gastrointestinal hemorrhage type Qualified Code(s): K92.2 - Gastrointestinal hemorrhage, unspecified
--- NOTE | 2019-11-21 18:51 | Hospitalist Progress Note ---
Date of Service November 21, 2019 Assessment & Plan (1) AMS (altered mental status): (2) Hepatic encephalopathy: (3) Liver disease due to alcohol: (4) Cirrhosis: Acute Hepatic encephalopathy Shock Septic Vs hemorrhagic Lactic Acidosis MELD:40 Not considered a candidate for TIPS/Liver transplant:actively drinking Blood cultures: Negative to date IV Vancomycin, Ertapenem transitioned to Ceftriaxone--Discontinued Requiring pressors--Discontinued as on comfort measures Appreciate GI Input lactulose, rifaximin on hold due to lack of NG access/Reduced consciousness Diagnostic paracentesis not suggestive of SBP Prognosis is guarded Code status changed to DNI/DNR, On comfort measures Continues to deteriorate Continue medications for comfort only C diff Colitis Received Vancomycin Enema Received IV flagyl (5) GI hemorrhage: (6) Supratherapeutic international normalized ratio (INR): (7) Acute blood loss anemia: Acute GI bleed in patient with decompensated alcoholic cirrhosis In setting of Supratherapeutic INR due to coumadin -S/P EGD: No evidence of active or recent bleeding to suggest an upper GI source. Non-bleeding grade II esophageal varices. Banded. Portal hypertensive gastropathy. Normal duodenal bulb and second portion of the duodenum. A single duodenal nodule. -S/P Sigmoidoscopy: The examined portion of the ileum was normal. The sigmoid to cecum is normal with adherent brown stool. Blood in the rectum. Actively bleeding spot in the rectum, this could be from a small deep rectal varix, could not be banded, injected with Ethanolamine and clips were placed resulting in adequate hemostasis. Non-bleeding internal hemorrhoids. S/P PRBC, FFP, vitamin K and Kcentra --Received Octreotide -Received IV PPI -Held Coumadin -Monitor CBC -INR:7.2 INR currently supratherapeutic (8) Elevated troponin: Likely from demand from blood loss anemia Echo: The left ventricular wall motion is normal at rest. Hypokalemia Hypomagnesemia Hypocalcemia Acute Kidney Injury Likely Ischemic ATN from shock due to GI bleed ? Hepatorenal Syndrome Appreciate Nephrology Input Renal function continues to deteriorate Paroxysmal atrial fibrillation Rate is fairly controlled Anticoagulation held due to GI bleed (9) Sleep apnea: (10) Thrombosis, portal vein: Coumadin on hold due to GI bleeding (11) Schizoaffective disorder: Not on any meds for now (12) COPD (chronic obstructive pulmonary disease): Stable Continue home inhalers if patient's mental status improved DVT Px: SCDs Re: GI bleeding Code Status DNI/DNR On Comfort measures only Poor Prognosis Admission and Anticipated Discharge Date Admission Date: November 14, 2019 Subjective Patient is seen and examined at bedside Remains encephalopathic Extubated yesterday Transition to comfort measures today No apparent distress on exam Review of Systems Review of Systems: Unobtainable due to reduced consciousness Physical Exam Physical Exam: Physical Exam: Vitals signs as noted above General Appearance:Moderately built and nourished, no apparent distress, Encephalopathic Head: normocephalic, Atraumatic Eyes: normal inspection Neck: supple, Trachea midline Respiratory/Chest: Normal breath sounds, scattered rhonchi Cardiovascular: S1, S2, No murmur Abdomen/GI:Soft, Non tender, Bowel sounds present Extremities/Musculoskelatal:normal inspection, no edema Neurologic/Psych: Complete neuro exam could not be performed. Skin: normal color, warm (1) GI hemorrhage GI bleed type/associated pathology: unspecified gastrointestinal hemorrhage type Qualified Code(s): K92.2 - Gastrointestinal hemorrhage, unspecified (2) Schizoaffective disorder Schizoaffective disorder type: unspecified Qualified Code(s): F25.9 - Schizoaffective disorder, unspecified
--- NOTE | 2019-11-22 17:23 | Hospitalist Progress Note ---
Date of Service November 22, 2019 Assessment & Plan (1) AMS (altered mental status): (2) Hepatic encephalopathy: (3) Liver disease due to alcohol: (4) Cirrhosis: Acute Hepatic encephalopathy Shock Septic Vs hemorrhagic Lactic Acidosis MELD:40 Not considered a candidate for TIPS/Liver transplant:actively drinking Blood cultures: Negative to date IV Vancomycin, Ertapenem transitioned to Ceftriaxone--Discontinued Requiring pressors--Discontinued as on comfort measures Appreciate GI Input lactulose, rifaximin on hold due to lack of NG access/Reduced consciousness Diagnostic paracentesis not suggestive of SBP Prognosis is guarded Code status changed to DNI/DNR, On comfort measures Continues to deteriorate On comfort measures Patient's Brother understands and agrees with current plan of care C diff Colitis Received Vancomycin Enema Received IV flagyl (5) GI hemorrhage: (6) Supratherapeutic international normalized ratio (INR): (7) Acute blood loss anemia: Acute GI bleed in patient with decompensated alcoholic cirrhosis In setting of Supratherapeutic INR due to coumadin -S/P EGD: No evidence of active or recent bleeding to suggest an upper GI source. Non-bleeding grade II esophageal varices. Banded. Portal hypertensive gastropathy. Normal duodenal bulb and second portion of the duodenum. A single duodenal nodule. -S/P Sigmoidoscopy: The examined portion of the ileum was normal. The sigmoid to cecum is normal with adherent brown stool. Blood in the rectum. Actively bleeding spot in the rectum, this could be from a small deep rectal varix, could not be banded, injected with Ethanolamine and clips were placed resulting in adequate hemostasis. Non-bleeding internal hemorrhoids. S/P PRBC, FFP, vitamin K and Kcentra --Received Octreotide -Received IV PPI -Held Coumadin -Monitor CBC -INR:7.2 INR currently supratherapeutic (8) Elevated troponin: Likely from demand from blood loss anemia Echo: The left ventricular wall motion is normal at rest. Hypokalemia Hypomagnesemia Hypocalcemia Acute Kidney Injury Likely Ischemic ATN from shock due to GI bleed ? Hepatorenal Syndrome Appreciate Nephrology Input Renal function continues to deteriorate Paroxysmal atrial fibrillation Rate is fairly controlled Anticoagulation held due to GI bleed (9) Sleep apnea: Currently on Vent (10) Thrombosis, portal vein: Coumadin on hold due to GI bleeding (11) Schizoaffective disorder: Not on any meds for now (12) COPD (chronic obstructive pulmonary disease): Stable Continue home inhalers if patient's mental status improved DVT Px: SCDs Re: GI bleeding Code Status DNI/DNR On Comfort measures only Poor Prognosis Admission and Anticipated Discharge Date Admission Date: November 14, 2019 Subjective Patient is seen and examined at bedside Remains encephalopathic Unable to provide any meaningful history Discussed with patient's brother in detail today Currently on comfort measures No apparent distress on exam Review of Systems Review of Systems: Unobtainable due to reduced consciousness Physical Exam Physical Exam: Physical Exam: Vitals signs as noted above General Appearance:Moderately built and nourished, Encephalopathic Head: normocephalic, Atraumatic Eyes: normal inspection Neck: supple, Trachea midline Respiratory/Chest: Normal breath sounds, scattered rhonchi Cardiovascular: S1, S2, No murmur Abdomen/GI:Soft, Non tender, Bowel sounds present Extremities/Musculoskelatal:normal inspection, no edema Neurologic/Psych: Complete neuro exam could not be performed., Unarousable Skin: normal color, warm (1) GI hemorrhage GI bleed type/associated pathology: unspecified gastrointestinal hemorrhage type Qualified Code(s): K92.2 - Gastrointestinal hemorrhage, unspecified (2) Schizoaffective disorder Schizoaffective disorder type: unspecified Qualified Code(s): F25.9 - Schizoaffective disorder, unspecified
[2019-11-23] MEDS: ATROPINE SULFATE 1% OP SOLN 2 ML BTL SL PRN ×2 (04:30→08:24)
--- NOTE | 2019-11-23 10:07 | Discharge Summary ---
Date of Service November 23, 2019 Admission HPI Per Admitting Provider CHIEF COMPLAINT: Confusion. HISTORY OF PRESENT ILLNESS: This is a 54-year-old female with past medical history significant for alcoholic liver cirrhosis, portal vein thrombosis, COPD, sleep apnea, paroxysmal atrial fibrillation, hypertension, hepatorenal failure, GERD, osteoarthritis, alcohol dependence, [id number] anemia, history of bipolar disorder, schizoaffective disorder, tobacco use disorder, history of TIAs, imbalance, generalized anxiety disorder, malingering, history of substance abuse, paranoid personality disorder, presents with confusion. The patient lives with her brother. As per the brother in the last couple of days, her appetite is down. She is not eating much or drinking much and tonight, she was confused, disoriented. She went to bathroom and he noticed blood in the stools, and she was brought into the hospital. In the ER, she is confused, groaning, somewhat noncooperative with the exam, she was tachycardic, has mild temperature spike, leukocytosis of 19.5, hemoglobin of 5.7, platelets of 106. INR 9.1, creatinine 4.3. Lactate 4.3, total bilirubin 4.2. Ammonia 41. Troponin I of 0.12. Stool occult blood was positive. Ethyl alcohol less than 3 . Could not get any history from the patient. Talked to the brother; as per the brother, the patient is still drinking, but in the last 2 days since her appetite is down, she is not drinking, but prior to that she used to drink 2-3 beers and shots of hard liquor. She was here in September and transferred to [place] for hepatorenal syndrome,and also decompression with liver cirrhosis. She was there a few days and started on midodrine. Coumadin was started for portal vein thrombosis; [place] wanted to keep her for 1 more day, but she wanted to get discharged and was discharged. Admission Exam Per Admitting Provider PHYSICAL EXAMINATION: VITAL SIGNS: T-max 37.6, pulse 116, respiratory rate 20, blood pressure 111/79, oxygen 100% on room air. Ge: Drowsy HEENT: Atraumatic. The patient is not cooperative for exam. NECK: No neck masses seen. CARDIOVASCULAR: S1, S2 heard. Tachycardia. No murmurs. RESPIRATORY SYSTEM: Normal AP diameter. No accessory muscle use. No wheezing, no crackles. ABDOMEN: Soft, distended, no rigidity. Noncooperative to exam. CENTRAL NERVOUS SYSTEM: Drowsy, moaning. Not oriented, somewhat agitated. EXTREMITIES: No edema, no erythema. Principal Diagnosis Acute Hepatic encephalopathy Alcoholic cirrhosis Shock C diff Colitis Acute GI hemorrhage Acute Kidney Injury Possible ATN/Hepatorenal syndrome Discharge Data Allergies Allergy/AdvReac Type Severity Reaction Status Date / Time haloperidol Allergy Severe TONGUE Verified 11/14/19 04:10 SWELLING insulin lispro Allergy Intermediate HIVES Verified 11/14/19 04:10 phenol Allergy Intermediate HIVES Verified 11/14/19 04:10 citalopram Allergy Mild ITCHING Verified 11/14/19 04:10 sulfamethoxazole Allergy Mild RASH Verified 11/14/19 04:10 trimethoprim Allergy Mild RASH Verified 11/14/19 04:10 Bactrim Allergy Unknown RASH Verified 12/01/17 16:09 Penicillins Allergy Unknown Hives Verified 11/14/19 04:10 pregabalin [From Lyrica] AdvReac Severe SUICIDAL Verified 11/14/19 04:10 topiramate AdvReac Severe SEIZURE Verified 11/14/19 04:10 LIKE ACTIVITY oxycodone AdvReac Mild ITCH Verified 11/14/19 04:10 Margarine Allergy Severe RASH Uncoded 11/14/19 04:10 Consultations 11/14/19 05:37 ED Decision to Admit Stat 11/14/19 06:46 Consult Case Management - Discharge Planning Routine Consult Nephrology Routine 11/14/19 08:00 Consult Vp Of Digital Marketing Routine 11/15/19 09:59 Consult Palliative Care Routine 11/15/19 12:54 Consult Palliative Care Routine 11/20/19 19:21 Consult Case Management - Discharge Planning Routine Procedures Performed Operation Date: 11/14/19 15:30 Actual Procedures p EGD Banding of Varices - Ronn Marquez MD s Colonoscopy Hemostasis - Ronn Marquez MD CT ABD: 1. Hepatic steatosis with cirrhotic liver disease and moderate to large volume of abdominopelvic ascites. 2. Nonspecific rectal wall thickening. Correlate clinically to exclude proctitis. 3. Healing subacute nondisplaced bilateral rib fractures. 4. Cholelithiasis. 5. No bowel obstruction or pneumoperitoneum. 6. Additional findings as above. CT head: No acute intracranial abnormality. Ordered Studies 11/14/19 06:24 CT abd pelvis wo con Stat CT head/brain wo con Stat 11/14/19 06:46 US gallbladder Urgent 11/14/19 13:53 US point of care ultrasound Urgent 11/15/19 00:05 US point of care ultrasound Urgent Hospital Course (1) AMS (altered mental status): (2) Hepatic encephalopathy: (3) Liver disease due to alcohol: (4) Cirrhosis: Acute Hepatic encephalopathy Shock Septic Vs hemorrhagic Lactic Acidosis MELD:40 Not considered a candidate for TIPS/Liver transplant:actively drinking Blood cultures: Negative to date IV Vancomycin, Ertapenem transitioned to Ceftriaxone--Discontinued Requiring pressors--Discontinued as on comfort measures Appreciate GI Input lactulose, rifaximin on hold due to lack of NG access/Reduced consciousness Diagnostic paracentesis not suggestive of SBP Prognosis is guarded Code status changed to DNI/DNR, On comfort measures Continues to deteriorate On comfort measures Patient's Brother understands and agrees with current plan of care C diff Colitis Received Vancomycin Enema Received IV flagyl (5) GI hemorrhage: (6) Supratherapeutic international normalized ratio (INR): (7) Acute blood loss anemia: Acute GI bleed in patient with decompensated alcoholic cirrhosis In setting of Supratherapeutic INR due to coumadin -S/P EGD: No evidence of active or recent bleeding to suggest an upper GI source. Non-bleeding grade II esophageal varices. Banded. Portal hypertensive gastropathy. Normal duodenal bulb and second portion of the duodenum. A single duodenal nodule. -S/P Sigmoidoscopy: The examined portion of the ileum was normal. The sigmoid to cecum is normal with adherent brown stool. Blood in the rectum. Actively bleeding spot in the rectum, this could be from a small deep rectal varix, could not be banded, injected with Ethanolamine and clips were placed resulting in adequate hemostasis. Non-bleeding internal hemorrhoids. S/P PRBC, FFP, vitamin K and Kcentra --Received Octreotide -Received IV PPI -Held Coumadin -Monitor CBC -INR:7.2 INR currently supratherapeutic (8) Elevated troponin: Likely from demand from blood loss anemia Echo: The left ventricular wall motion is normal at rest. Hypokalemia Hypomagnesemia Hypocalcemia Acute Kidney Injury Likely Ischemic ATN from shock due to GI bleed ? Hepatorenal Syndrome Appreciate Nephrology Input Renal function continues to deteriorate Paroxysmal atrial fibrillation Rate is fairly controlled Anticoagulation held due to GI bleed (9) Sleep apnea: Currently on Vent (10) Thrombosis, portal vein: Coumadin on hold due to GI bleeding (11) Schizoaffective disorder: Not on any meds for now (12) COPD (chronic obstructive pulmonary disease): Stable Continue home inhalers if patient's mental status improved DVT Px: SCDs Re: GI bleeding Code Status DNI/DNR On Comfort measures only Poor Prognosis Patient this morning at 0945. Patient's family was updated. Total Time Total Time Spent Total Time Spent (In Minutes): 35 minutes Discharge Plan Discharge Items Patient Disposition: Reason For Visit: CONFUSION, GI BLEED Discharge Diagnosis: Acute Hepatic encephalopathy Alcoholic cirrhosis Shock C diff Colitis Acute GI hemorrhage Acute Kidney Injury Follow-up/Referrals: Dante Rosario DO [Primary Care Provider] - Addtl Attending Provider Instructions: . Stand-Alone Forms: Pending Sale To [facility] Admission Data Admit Date/Time: 11/14/19 06:04 Other DC Date/Time DO NOT enter until pt leaves facility: 11/23/19 11:45
--- NOTE | 2019-11-30 10:48 | Coding Query ---
SEPSIS To promote full compliance with coding requirements relating to patient care, physician participation is requested in all cases of wrong address clerk uncertainty. Please assist us with the question(s) below: In responding to this query, please exercise your independent professional judgement. The fact that a question is asked does not imply that any particular answer is desired or expected. We appreciate your clarification on this issue. Throughout the medical record, you have clearly documented a localized infection and your patient has clinical evidence of a generalized sepsis or severe sepsis. The term urosepsis is a nonspecific entity and is coded as an UTI. If the patient has sepsis, severe sepsis, from an urinary source or some other source, please clarify in your response below. The medical record reflects the following clinical findings: (With dates as appropriate) (Body temperature of >38.3 C(101 F) or <36 C(96.8F), pulse >90/minute, respirations >20/minute, WBC count >12,000 or <4,000, altered mental status, significant edema or positive fluid balance, hyperglycemia without diabetes, hypotension, metabolic acidosis (elev. lactate level, anion gap or reduced blood pH), shock, positive blood culture (enter organism) ____ ()Bacteremia (Nonspecific laboratory finding of bacteria in the blood) Specify Organism () Present on Admission (x) Not present on admission () Unable to clinically determine () Septicemia (Systemic disease associated with the presence of pathogenic microorganisms in the blood): Specify Organism () Present on Admission (x) Not present on admission () Unable to clinically determine () Sepsis Specify Organism Specify Associated Condition/Diagnosis () Present on Admission () Not present on admission () Unable to clinically determine (x) Severe Sepsis (Sepsis associated with acute organ dysfunction) Specify Organism : C diff Specify Associated Condition/Diagnosis (x) Present on Admission () Not present on admission () Unable to clinically determine () Septic Shock (Severe sepsis with acute circulatory failure, unexplained by other causes) () Present on Admission (x) Not present on admission () Unable to clinically determine () Other, patient has: MTDD
== END 2019-11-23 11:45 | disposition expired | DRG 870 ==
LOC: ED 03:28 → 1E 06:04 → SUATTDRO 06:04 → 1E 06:25 → 3E 11-21 10:02